=== PATIENT | male | born 1950 | race Caucasian/White ===

== ENCOUNTER → 2020-07-31 12:35 | Outpatient (CLI) | payer MEDICARE, OTHER, SELFPAY ==
[2020-07-23 13:56] VITALS: BMI 19.6
--- NOTE | 2020-07-31 12:41 | CT_ITS ---
STUDY: CT PELVIS WITH CONTRAST REASON FOR EXAM: Male, 69 years old. RT GROIN MASS/HYDROCELE VS HERNIA. Prior rt inguinal hernia repair with mesh 2003 RADIATION DOSAGE (If Supplied By Facility): CTDIvol = ( 12.77 ) mGy, DLP = ( 207.91 ) mGycm TECHNIQUE: Transaxial imaging of the pelvis was performed without oral contrast. IV 100mL Isovue-370 was administered intravenously. Individualized dose optimization techniques were used for this CT. COMPARISON: None. FINDINGS: Normal urinary bladder. There is evidence of a large right-sided hydrocele. Prostatic enlargement. Central prostatic calcification. Normal visualized small intestine. Normal visualized colon. There is no pelvic fluid. There is no pelvic lymphadenopathy or mass lesion. Atherosclerotic calcification of the infrarenal abdominal aorta. There is evidence of a prior repair of bilateral inguinal hernias with a mesh. Grade 1 anterior listhesis of L5 on S1 with disc space narrowing and disc degeneration. CT/Pelvis WITH IV Contrast IMPRESSION: Large right hydrocele. Prior inguinal hernias repair with a mesh. Electronically Signed: Hood Valiente, at 14:20 EST , Service support ,
[2020-07-31 13:15] LABS: CREATININE FINGERSTICK 0.6 mg/dL (0.70-1.30); EGFR FINGERSTICK > 60.0000 mL/min (>60)
== END ==
PROVIDERS: PCP Family Medicine; Referring Provider Surgery; Visit Provider Surgery
DX: R19.00 Intra-abdominal and pelvic swelling, mass and lump, unspecified site (principal)
CPT/HCPCS: 72193; Q9967

== ENCOUNTER → 2021-03-23 11:32 | Outpatient (CLI) | payer MEDICARE, OTHER, SELFPAY ==
--- NOTE | 2021-03-23 12:11 | EKG12_ITS ---
Test Reason : PRE-OP Blood Pressure : / mmHG Vent. Rate : 057 BPM Atrial Rate : 057 BPM P-R Int : 160 ms QRS Dur : 102 ms QT Int : 442 ms P-R-T Axes : 050 081 039 degrees QTc Int : 430 ms Sinus bradycardia with Premature atrial complexes Nonspecific T wave abnormality Poor R- wave progression Abnormal ECG Confirmed by DOLLY JACKSON, JOSE ([id number]), book editor GERRI MARINELLI ([id number]) on 03/24/2021 2:02:57 PM Referred By: Isauro Buchanan Confirmed By:JOSE ALBERTO MD
[2021-03-23 13:06] LABS: Hematocrit 42.3 % (40-54); Hemoglobin 14.4 g/dL (13.0-16.5); Mean Platelet Vol. 10.3 fl (6.2-12.0); Platelet Count 232 K/mm3 (150-450); RBC Distribution Width CV 12.7 % (11.6-14.6); RBC Distribution Width SD 45.5 fl (35.1-43.9); Red Blood Count 4.36 M/mm3 (4.6-6.2); White Blood Count 7.3 K/mm3 (4.4-11.0)
[2021-03-23 13:25] LABS: Anion Gap 3 (5-15); BUN 19 mg/dL (7-18); BUN/Creat Ratio 18.4 RATIO (10-20); Calcium,Total 9.1 mg/dL (8.5-10.1); Chloride 104 mmol/L (98-107); Creatinine, Serum 1.03 mg/dL (0.70-1.30); EST Glomerular Filtration Rate 76 mL/min (>60); Est Glom Filt Rate - Afr Amer 92 mL/min (>60); Glucose 91 mg/dL (74-106); Sodium Level 136 mmol/L (136-145)
== END ==
PROVIDERS: Referring Provider Urology; Visit Provider Urology
DX: Z01.812 Encounter for preprocedural laboratory examination (principal)
CPT/HCPCS: 36415; 80048; 85027; 93005

== ENCOUNTER 2023-03-17 11:01 | Inpatient (IN) | payer MEDICARE, OTHER, SELFPAY ==
[2023-03-17 11:03] VITALS: BP 148/89; PULSE 84; RESP 16; TEMP 36.3; O2SAT 99; BMI 17.4
--- NOTE | 2023-03-17 11:15 | EKG12_ITS ---
Test Reason : Blood Pressure : / mmHG Vent. Rate : 063 BPM Atrial Rate : 063 BPM P-R Int : 178 ms QRS Dur : 102 ms QT Int : 458 ms P-R-T Axes : 050 -06 137 degrees QTc Int : 468 ms Normal sinus rhythm Incomplete right bundle branch block ST & T wave abnormality, consider lateral ischemia Prolonged QT Abnormal ECG Confirmed by SANTI JACKSON, FELICITY ([id number]), marketing editor MALOU MARINO ([id number]) on 03/20/2023 12:44:46 PM Referred By: Confirmed By:FELICITY HANCOCK MD
--- NOTE | 2023-03-17 11:18 | EDS_ITS ---
HPI <TAJ Ochoa - Last Filed: 03/17/23 13:25> History of Present Illness Chief Complaint: Abn Labs Narrative Narrative: Patient is a 72-year-old male who sees Dr. Awan as his PCP presents to the emergency department for abnormal lab values. Patient is currently not any medications, he gets his blood work 1 week before his physical with his PCP. They called today with the results and told him to come to the emergency department. Patient has a BUN of 47, creatinine 2.47, potassium 5.3, they are concerned for some renal insufficiency, renal failure. Patient states over the last several months since the beginning of 2022, the patient is felt more weak, has lost 10 pounds, feels more short of breath on exertion. He denies any chest pain. Denies any fever or chills. Patient does not smoke, does not use alcohol. PFSH <TAJ Ochoa - Last Filed: 03/17/23 13:25> [facility] Medical History (Updated 03/17/23 @ 12:38 by TAJ Ochoa) BPH (benign prostatic hyperplasia) Guttate psoriasis Allergy/AdvReac Type Severity Reaction Status Date / Time No Known Allergies Allergy Verified 03/17/23 11:18 Family History Father Heart disease Pacemaker Cancer hodgkins Sister Cancer non hodgkins Surgical History History of bilateral inguinal hernia repair (~2003) History of colonoscopy (~06/05/18) Social History Smoking Status: Never smoker ROS <TAJ Ochoa - Last Filed: 03/17/23 13:25> ROS ED ROS Narrative Constitutional: Negative for fever, chills, positive for weight loss, weakness Eyes: Negative for vision loss, vision change, double vision ENT: Negative for any sore throat, ear pain, congestion Cardiovascular: Negative for any chest pain, tightness, palpitations Respiratory: Negative for any cough, sputum production, hemoptysis, dyspnea.positive for dyspnea on exertion, orthopnea Gastrointestinal: Negative for any abdominal pain, nausea, vomiting, diarrhea, constipation, blood in stool, blood in vomit : Negative for any urinary frequency, dysuria, retention, blood in urine Muscle skeletal: Negative for any muscle joint pain, stiffness, myalgias, arthralgias, neck pain, back pain Neurological: Negative for any headache, syncope, numbness or tingling, dizziness Skin: Negative for any rashes, lumps, itching, abrasions, lacerations Psychiatric: Negative for any depression, anxiety, stress, suicidal ideation, homicidal ideation Hematologic: Negative for any easy bruising, excessive bruising, easy bleeding Allergies: Negative for any eczema, hives, rash EXAM <TAJ Ochoa - Last Filed: 03/17/23 13:25> Physical Exam Narrative Exam Narrative: Vital signs reviewed. Patient is alert and orient x4. Patient is in no obvious distress. HEET: Head normocephalic atraumatic, TMs clear bilaterally. Posterior pharynx is clear, moist mucous membranes. Nares clear bilaterally. Neck: Supple with no lymphadenopathy or tenderness. No signs of meningismus, negative jolt sign. Cardiac: Regular rate and rhythm positive murmur, no gallops or rubs, equal peripheral pulses bilaterally. Respiratory: Lungs clear to auscultation bilaterally. No chest tenderness. Abdomen: Soft, nontender, nondistended. No abdominal bruit or pulsatile masses. No hepatosplenomegaly Extremities: No peripheral edema, no signs of gross trauma or deformity. Active full range of motion of all extremities. Neuro: Cranial nerves II through XII intact, no focal neurological deficits. Skin: Clean dry and intact with no rash, purpura, petechiae, vesicles or pustules. Backs/flank: No CVA tenderness, no midline spinal tenderness, no deformity. Psych: Normal mood and affect. No SI, HI or acute psychosis. Const Vital Signs: 03/17/23 11:03 03/17/23 11:09 03/17/23 12:47 Temperature 97.4 F L Temperature Source Temporal Pulse Rate 84 52 L Respiratory Rate 16 10 L Respiratory Effort Normal Non-Labored Respiratory Pattern Normal Blood Pressure 148/89 H 140/79 H Blood Pressure Mean 108 99 Pulse Ox 99 99 Oxygen Delivery Method Room Air Room Air Positive well nourished and well developed General Appearance ED: well developed <Dr. Julio Estrada MD - Last Filed: 03/17/23 11:28> Physical Exam Const Vital Signs: 03/17/23 11:03 03/17/23 11:09 03/17/23 12:47 Temperature 97.4 F L Temperature Source Temporal Pulse Rate 84 52 L Respiratory Rate 16 10 L Respiratory Effort Normal Non-Labored Respiratory Pattern Normal Blood Pressure 148/89 H 140/79 H Blood Pressure Mean 108 99 Pulse Ox 99 99 Oxygen Delivery Method Room Air Room Air [facility] <TAJ Ochoa - Last Filed: 03/17/23 13:25> [facility] Lab Data Labs: Laboratory Results - last 24 hr 03/17/23 11:30 WBC 6.8 RBC 3.82 L Hgb 12.5 L Hct 37.7 L MCV 98.7 H MCH 32.7 H MCHC 33.2 RDW Std Deviation 50.1 H RDW Coeff of Zachary 13.8 Plt Count 271 MPV 9.7 Immature Gran % (Auto) 0.300 Neut % (Auto) 56.1 Lymph % (Auto) 31.5 [place] % (Auto) 9.9 Eos % (Auto) 1.3 Baso % (Auto) 0.9 Absolute Neuts (auto) 3.8 Absolute Lymphs (auto) 2.13 Nucleated RBC % 0 Sodium 139 Potassium 4.2 Chloride 106 Carbon Dioxide 27.0 Anion Gap 6 BUN 44 H Creatinine 2.44 H Estim Creat Clear Calc 20.80 Est GFR (MDRD) Af Amer 34 L Est GFR (MDRD) Non-Af 28 L BUN/Creatinine Ratio 18.0 Glucose 129 H Calcium 8.9 Total Bilirubin 0.40 AST 33 ALT 28 Alkaline Phosphatase 93 Troponin I High Sens 153 H* Total Protein 6.4 Albumin 2.7 L Globulin 3.7 Albumin/Globulin Ratio 0.7 L TSH 3.58 Radiography Diagnostic Testing: Clinical Impression(s) from Imaging Studies Chest X-Ray 03/17/23 11:35 IMPRESSION: No radiographic evidence of acute cardiopulmonary disease. Electronically Signed: Navarro Donnelly MD at 12:19 EDT , EKG Normal sinus rhythm: Attestation: I personally reviewed and interpreted this EKG as follows: Comments: Normal sinus rhythm, rate of 63 bpm, UT interval is 78 ms, QRS duration 102 ms, no acute ST elevation, no acute infarct noted. Treatment and Re-Evaluation :: Patient is alert and orient x4. Patient presents to the emergency department for abnormal kidney function and generalized fatigue over the last several months. Patient will receive basic laboratory values such as a CBC, chemistry, patient will receive two-view chest x-ray EKG and troponin. He will be given 1 L of normal saline. Patient is being ruled out for type 2 diabetes, acute kidney injury, any sort of infection. Patient's laboratory values showed a CBC with slight anemia with a hemoglobin of 12.5, 2 years ago, the patient's hemoglobin is 14.4, 2 years ago, the patient's creatinine is 1.03, today is 2.44, glucose 129 with a troponin 153. Patient at this time is having no active chest pain, patient's EKG shows no active PA, ACS. After talking with the patient, the patient does need to be admitted to the hospital. Patient needs to be worked up for the acute kidney injury, as well as the elevated troponin. Patient is agreeable with the plan. Vital signs remained stable. Patient be admitted to hospitalist. <Dr. Julio Estrada MD - Last Filed: 03/17/23 11:28> [facility] MDM Narrative Medical decision making narrative: I have personally performed a face to face assessment of the patient and have reviewed the ANDREI Note. I performed a substantive portion of the visit including all aspects of the following. My st findings include: History is 72-year-old male healthy currently on no medications. I am evaluating him with our nurse practitioner. Patient's had exhaustion and fatigue for the last 6 months. Had screening labs to see his primary care physician that were abnormal and was sent to the emergency department. Exam is [H EENT exam unremarkable. Neck nontender no JVD. Lungs clear to auscultation. Heart regular rhythm 3/6 systolic ejection murmur. Abdomen soft, nontender, nondistended normal bowel sounds no peritoneal signs. Moving all 4 extremities. Trace edema in his legs. Neurologically is awake alert with no focal motor deficits. Benign exam.] Medical Decision Making [72-year-old with worsening kidney function. Screening labs will be obtained. Bladder scan.] Other additions or changes: [None] Lab Data Labs: Laboratory Results - last 24 hr 03/17/23 11:30 WBC 6.8 RBC 3.82 L Hgb 12.5 L Hct 37.7 L MCV 98.7 H MCH 32.7 H MCHC 33.2 RDW Std Deviation 50.1 H RDW Coeff of Zachary 13.8 Plt Count 271 MPV 9.7 Immature Gran % (Auto) 0.300 Neut % (Auto) 56.1 Lymph % (Auto) 31.5 [place] % (Auto) 9.9 Eos % (Auto) 1.3 Baso % (Auto) 0.9 Absolute Neuts (auto) 3.8 Absolute Lymphs (auto) 2.13 Nucleated RBC % 0 Sodium 139 Potassium 4.2 Chloride 106 Carbon Dioxide 27.0 Anion Gap 6 BUN 44 H Creatinine 2.44 H Estim Creat Clear Calc 20.80 Est GFR (MDRD) Af Amer 34 L Est GFR (MDRD) Non-Af 28 L BUN/Creatinine Ratio 18.0 Glucose 129 H Calcium 8.9 Total Bilirubin 0.40 AST 33 ALT 28 Alkaline Phosphatase 93 Troponin I High Sens 153 H* Total Protein 6.4 Albumin 2.7 L Globulin 3.7 Albumin/Globulin Ratio 0.7 L TSH 3.58 Radiography Diagnostic Testing: Clinical Impression(s) from Imaging Studies Chest X-Ray 03/17/23 11:35 IMPRESSION: No radiographic evidence of acute cardiopulmonary disease. Electronically Signed: Navarro Donnelly MD at 12:19 EDT , Discharge Plan Dx/Rx/DC Orders Clinical Impression: Acute kidney injury, Exertional dyspnea, Anemia, Elevated troponin Disposition Disposition: Acute Care [facility]
[2023-03-17] MEDS: 0.9% Normal Saline 1,000 ML 1000 ML IV (11:26)
--- NOTE | 2023-03-17 11:35 | RAD_ITS ---
INDICATION: cough EXAMINATION/TECHNIQUE: X-RAY - XR Chest 2 Views COMPARISON: No prior examinations are available for comparison. FINDINGS: LINES/DEVICES: None. LUNGS: The lungs are somewhat hyperinflated. No focal infiltrate is seen. No evidence of pleural effusions. MEDIASTINUM AND CARDIOVASCULAR STRUCTURES: Cardiac silhouette not enlarged. Central airways and mediastinal contour are unremarkable. BONES AND SOFT TISSUES: No demonstrated acute osseous changes. RAD/Chest PA and Lateral IMPRESSION: No radiographic evidence of acute cardiopulmonary disease. Electronically Signed: Navarro Donnelly MD at 12:19 EDT ,
[2023-03-17 11:42] LABS: Absolute Lymphocyte Count 2.13 X10^3/uL (0.83-4.51); Absolute Neutrophil Count 3.8 X10^3/uL (2.0-7.7); Basophil# 0.06 X10^3/uL; Basophil% 0.9 % (0-1); Eosinophil# 0.09 X10^3/uL; Eosinophils% 1.3 % (0-5); Hematocrit 37.7 % (40-54); Hemoglobin 12.5 g/dL (13.0-16.5); Lymphocyte # 2.13 X10^3/ul (0.83-4.51); Lymphocyte % 31.5 % (19-41); Mean Corp Hgb Conc 33.2 g/dL (32-36); Mean Corpuscular Hgb 32.7 pg (27.0-32.0); Mean Corpuscular Volume 98.7 fL (80-94); Mean Platelet Vol. 9.7 fl (6.2-12.0); Monocyte# 0.67 X10^3/uL; Monocyte% 9.9 % (0-10); NRBC Flagged by Analyzer 0 % (0-5); Neutrophil % 56.1 % (47-70); Platelet Count 271 K/mm3 (150-450); RBC Distribution Width CV 13.8 % (11.6-14.6); RBC Distribution Width SD 50.1 fl (35.1-43.9); Red Blood Count 3.82 M/mm3 (4.6-6.2); White Blood Count 6.8 K/mm3 (4.4-11.0)
[2023-03-17 12:16] LABS: ALB/GLOB Ratio 0.7 RATIO (0.9-2.4); AST(SGOT) 33 U/L (15-37); Alanine Aminotransfer ALT/SGPT 28 U/L (16-61); Albumin, Serum 2.7 g/dL (3.2-5.0); Alkaline Phosphatase 93 U/L (45-117); Anion Gap 6 (5-15); BUN 44 mg/dL (7-18); Calcium,Total 8.9 mg/dL (8.5-10.1); Chloride 106 mmol/L (98-107); Creatinine, Serum 2.44 mg/dL (0.70-1.30); EST Glomerular Filtration Rate 28 mL/min (>60); Est Glom Filt Rate - Afr Amer 34 mL/min (>60); Globulin 3.7 g/dL (2.2-4.2); Glucose 129 mg/dL (74-106); Potassium 4.2 mmol/L (3.5-5.1); Protein, Total 6.4 g/dL (6.4-8.2); Sodium Level 139 mmol/L (136-145); Thyroid Stim Hormone (TSH) 3.58 uIU/mL (0.358-3.74); Troponin-I HS 153 pg/mL (3.0-78.0)
[2023-03-17 12:47] VITALS: BP 140/79; PULSE 52; RESP 10; O2SAT 99
--- NOTE | 2023-03-17 13:23 | US_ITS ---
INDICATION: elevated creatinine -- please do on 03/17/23 EXAMINATION: US Kidney(s) complete (eg, kidneys and bladder) TECHNIQUE: Carpio scale and color doppler images were obtained of the kidneys. COMPARISON: None. FINDINGS: RIGHT KIDNEY: Measures 9.7 cm in length.. There is no hydronephrosis. Increased echogenicity. No shadowing calculus, focal lesion or perinephric collection is demonstrated. LEFT KIDNEY: Measures 9.9 cm in length.. There is no hydronephrosis. Increased echogenicity. No shadowing calculus, focal lesion or perinephric collection is demonstrated. URINARY BLADDER: No acute abnormality. OTHER: Small amount of free fluid posterior to the bladder. US/Kidney and Bladder IMPRESSION: No hydronephrosis. Increased echogenicity of the bilateral kidneys compatible with medical renal disease. Small amount of free fluid posterior to the bladder of unknown origin. Electronically Signed: Kit Olmos MD at 20:05 EDT ,
--- NOTE | 2023-03-17 13:23 | ECHOD_ITS ---
Version 2 Reason For Study: DYSPNEA Procedure This was a 2D Doppler, Color Flow transthoracic echocardiogram. The study was technically difficult. Contrast injection was performed. Exam performed portable in patient room. Left Ventricle Normal LV size. Moderate concentric left ventricular hypertrophy. Left ventricular systolic function is normal. The estimated ejection fraction is 65 %. Stage 1 diastolic dysfunction. Right Ventricle Normal RV size. Normal systolic function. Tricuspid Valve Normal tricuspid valve. Mild (1+) tricuspid valve insufficiency. Pulmonary artery systolic pressure is 28 mmHg. Pulmonic Valve Normal pulmonic valve. Great Vessels Normal aortic root. The pulmonary artery is normal size. Normal inferior vena cava. Pericardium/Pleural No pericardial effusion. Medication Diluted definity 2ml given slow IV push to enhance endocardial definition. MMode/2D Measurements & Calculations LVIDd: 3.9 cm IVSd: 1.5 cm Ao root diam: 3.3 cm LVIDs: 2.5 cm LVPWd: 1.5 cm RVDd: 3.2 cm FS: 35.9 % LAV(MOD-bp): 37.7 ml SV(MOD-sp4): 49.0 ml LVAd ap4: 26.6 cm2 LAV(MOD-bp) Indexed: 23.3 ml/m2 LVLd ap4: 7.6 cm LAV(MOD-sp2): 49.9 ml EDV(MOD-sp4): 77.6 ml LAV(MOD-sp4): 27.1 ml EDV(sp4-el): 79.1 ml LVAs ap4: 14.5 cm2 LVLs ap4: 6.3 cm ESV(MOD-sp4): 28.6 ml ESV(sp4-el): 28.9 ml EF(MOD-sp4): 63.1 % EF(sp4-el): 63.5 % SV(sp4-el): 50.2 ml LA dimension(2D): 3.3 cm LA A4 area: 12.2 cm2 TAPSE: 1.1 cm RA A4 area: 17.0 cm2 Time Measurements MV dec time: 0.43 sec Doppler Measurements & Calculations MV E max ted: 41.3 cm/sec Lat Peak E' Ted: 6.6 cm/sec Med Peak E' Ted: 7.2 cm/sec MV A max ted: 65.2 cm/sec E/E' lat: 6.2 E/E' med: 5.8 MV E/A: 0.63 MV V2 max: 97.3 cm/sec Ao V2 max: 138.0 cm/sec MV max P.8 mmHg MV dec slope: 100.7 cm/sec2 Ao max P.6 mmHg MV V2 mean: 40.4 cm/sec Ao V2 mean: 89.9 cm/sec MV mean P.88 mmHg Ao mean P.9 mmHg MV V2 VTI: 25.2 cm Ao V2 VTI: 25.9 cm AV (velocity ratio): 1.00 LV V1 max: 136.7 cm/sec PA V2 max: 163.7 cm/sec PI dec slope: 89.8 cm/sec2 LV V1 max P.5 mmHg PA V2 mean: 92.9 cm/sec LV V1 mean P.7 mmHg LV V1 mean: 86.9 cm/sec LV V1 VTI: 25.8 cm TR max ted: 244.0 cm/sec TR max P.8 mmHg ECHO/Echo Complete W/ Contrast Interpretation Summary Normal LV size. Moderate concentric left ventricular hypertrophy. Left ventricular systolic function is normal. The estimated ejection fraction is 65 %. Stage 1 diastolic dysfunction. Pulmonary artery systolic pressure is 28 mmHg. Contrast injection was performed. Ordering Physician: Jonathan Fernando Referring Physician: JONATHAN APONTE Performed By: Sybil Siu RCS
--- NOTE | 2023-03-17 13:26 | NURSING ---
108 OBS TERELETSKY ELEVATED TROP, SINDI, DYSPNEA ON EXERTION
[2023-03-17 14:01] VITALS: BP 126/78; PULSE 54; RESP 12; TEMP 36.6
[2023-03-17 14:13] VITALS: BP 142/79; PULSE 61; RESP 18; TEMP 36.7; O2SAT 100
[2023-03-17 14:19] VITALS: BMI 17.5
[2023-03-17] MEDS: 0.9% Normal Saline 1,000 ML 150 ML IV ×2 (16:04→23:38)
[2023-03-17 16:09] LABS: Bacteria 0 SEEN /hpf (None Seen); Mucous, Urine 0 SEEN /hpf (<or=2+); Red Blood Cells-Urine 0 SEEN /hpf (0-5); Squamous Epithelial Cells - UA 0 SEEN /hpf (0-5); White Blood Cells 0 SEEN /hpf (0-5)
[2023-03-17 16:22] LABS: Color, Urine Yellow (Yellow); Glucose, Dipstick Normal (Normal); Ketone-Dipstick Negative (Negative); Leukocyte Esterase-Dipstick Negative /ul (Negative); Nitrite-Dipstick Negative (Negative); Occult Blood-Urine 25 /ul (Negative); Protein-Dipstick 100 mg/dl (Negative); Urine Bilirubin Dipstick Negative (Negative); Urine Clarity Clear (Clear); Urine Urobilinogen Normal (Normal); Urine pH 6.5 (5.0 - 8.0)
[2023-03-17 17:28] LABS: Troponin-I HS 139 pg/mL (3.0-78.0)
--- NOTE | 2023-03-17 17:40 | PCM.HP.STD ---
HPI - General General Date of Admission: 03/17/23 Date of Service: 03/17/23 Chief Complaint: Abnormal outpatient labs HPI Narrative EDGAR HENDERSON, is a 72 M who presents to the emergency room at [facility] after being sent in at the request of his family physician due to abnormal labs which were obtained this week. Patient's creatinine was elevated. Work-up in the emergency room included a CBC which was abnormal for hemoglobin of 12.5, chemistry profile was abnormal for BUN of 44 and a creatinine of 2.44. Patient's troponin is elevated at 153, EKG showed a normal sinus rhythm with nonspecific ST-T wave changes in the lateral precordial leads. Patient's UA was unremarkable. Patient will be admitted to PCU, IV fluids will be administered, patient will have an echocardiogram performed and an ultrasound on his kidneys and bladder. Labs will be monitored, cardiac enzymes will be cycled. PFSH Medical History BPH (benign prostatic hyperplasia) Guttate psoriasis Kidney disease Non-smoker Allergy/AdvReac Type Severity Reaction Status Date / Time No Known Allergies Allergy Verified 03/17/23 11:18 Family History Father Heart disease Pacemaker Cancer hodgkins Sister Cancer non hodgkins Surgical History History of bilateral inguinal hernia repair (~2003) History of colonoscopy (~06/05/18) Social History Smoking Status: Never smoker ROS Constitutional Constitutional: Reports fatigue and weakness; Denies anorexia, change in weight, chills, fever(s) or night sweats Eyes Eyes: Denies blurry vision, change in vision, discharge from eye(s) or eye pain Cardiovascular Cardiovascular: Denies chest pain, claudication, dyspnea on exertion, edema, lightheadedness or palpitations Respiratory/Chest Respiratory/Chest: Denies cough, excessive phlegm production, hemoptysis, productive cough, shortness of breath at rest or shortness of breath with exertion Gastrointestinal Gastrointestinal: Denies abdominal pain, constipation, diarrhea, hematemesis, hematochezia, melena, nausea or vomiting Genitourinary Genitourinary: Denies dysuria, hematuria, urinary frequency, urinary hesitancy, urinary incontinence or urinary urgency Musculoskeletal Musculoskeletal: Denies back pain, joint pain, joint stiffness, joint swelling, myalgias or neck pain Neurologic Neurologic: Denies abnormal gait, abnormal speech, confusion, disequilibrium, dizziness, focal weakness, headache(s), loss of vision, numbness, other visual disturbances, paresthesias, syncope or tingling Psychiatric Psychiatric: Denies anxiety, cognitive impairment, depression, irritability, mood swings or suicidal ideation Endocrine Endocrinology: Denies change in body appearance, cold intolerance, excessive sweating, heat intolerance, polydipsia or polyuria Hematologic/Lymphatic Hematologic/Lymphatic: Denies none, anemia, easy bleeding, easy bruising or lymphadenopathy Allergic/Immunologic Allergic/Immunologic: Denies rhinitis, urticaria, eczemia or asthma Vital Signs Vital Signs Vital Signs: 03/17/23 11:03 03/17/23 11:09 03/17/23 12:47 Temperature 97.4 F L Temperature Source Temporal Pulse Rate 84 52 L Respiratory Rate 16 10 L Respiratory Effort Normal Non-Labored Respiratory Depth Respiratory Pattern Normal Blood Pressure 148/89 H 140/79 H Blood Pressure Mean 108 99 Blood Pressure Source Blood Pressure Position Blood Pressure Location Pulse Ox 99 99 Oxygen Delivery Method Room Air Room Air 03/17/23 14:01 03/17/23 14:13 03/17/23 15:10 Temperature 98 F 98.0 F Temperature Source Temporal Oral Pulse Rate 54 L 61 Respiratory Rate 12 18 Respiratory Effort Normal Non-Labored Respiratory Depth Normal Respiratory Pattern Normal Blood Pressure 126/78 H 142/79 H Blood Pressure Mean 94 100 Blood Pressure Source Monitor Blood Pressure Position Semi-Fowlers Blood Pressure Location Right Arm Pulse Ox 100 Oxygen Delivery Method Room Air Room Air Weight Weight: 52.4 kg Body Mass Index (BMI) 17.5 Physical Exam Const alert, oriented x3, no apparent distress and healthy appearing General Appearance: cooperative, well kempt and well developed Orientation / Consciousness: awake, oriented to person, oriented to place and oriented to time HEENT normocephalic Mouth: moist mucous membranes abnormal Eyes PERRL, EOMs intact bilaterally and conjunctivae normal Neck supple, no JVD, thyroid normal and no carotid bruits General: trachea midline Resp normal respiratory effort, no retractions, no use of accessory muscles and clear to auscultation bilaterally Auscultation: Negative for rales, rhonchi or wheezes Cardio regular rate, regular rhythm, S1 normal heart sound, S2 normal heart sound, no murmurs, no rub and no gallops GI normal to inspection, nondistended, normoactive bowel sounds, soft to palpation, non-tender and non-distended Extremity no clubbing, cyanosis or edema Skin no rashes or lesions noted General Skin Exam: no breakdown Neuro oriented x3, CN's II-XII intact bilaterally, moves all extremities, no focal motor deficits and no sensory deficits noted Sensorium / Orientation: awake and alert Speech: speech normal Psych affect normal Results Lab / Micro Data 03/17/23 11:30 03/17/23 11:30 Labs: Laboratory Results - last 24 hr 03/17/23 11:30: WBC 6.8, RBC 3.82 L, Hgb 12.5 L, Hct 37.7 L, MCV 98.7 H, MCH 32.7 H, MCHC 33.2, RDW Std Deviation 50.1 H, RDW Coeff of Zachary 13.8, Plt Count 271, MPV 9.7, Immature Gran % (Auto) 0.300, Neut % (Auto) 56.1, Lymph % (Auto) 31.5, [place] % (Auto) 9.9, Eos % (Auto) 1.3, Baso % (Auto) 0.9, Absolute Neuts (auto) 3.8, Absolute Lymphs (auto) 2.13, Nucleated RBC % 0, Sodium 139, Potassium 4.2, Chloride 106, Carbon Dioxide 27.0, Anion Gap 6, BUN 44 H, Creatinine 2.44 H, Estim Creat Clear Calc 20.80, Est GFR (MDRD) Af Amer 34 L, Est GFR (MDRD) Non-Af 28 L, BUN/Creatinine Ratio 18.0, Glucose 129 H, Calcium 8.9, Total Bilirubin 0.40, AST 33, ALT 28, Alkaline Phosphatase 93, Troponin I High Sens 153 H*, Total Protein 6.4, Albumin 2.7 L, Globulin 3.7, Albumin/Globulin Ratio 0.7 L, TSH 3.58 03/17/23 16:07: Troponin I High Sens 139 H* 03/17/23 : Urine Color Yellow, Urine Clarity Clear, Urine pH 6.5, Ur Specific [place] 1.010, Urine Protein 100 H, Urine Glucose (UA) Normal, Urine Ketones Negative, Urine Occult Blood 25 H, Urine Nitrite Negative, Urine Bilirubin Negative, Urine Urobilinogen Normal, Ur Leukocyte Esterase Negative, Urine RBC 0 SEEN, Urine WBC 0 SEEN, Ur Squamous Epith Cells 0 SEEN, Urine Bacteria 0 SEEN, Urine Mucus 0 SEEN Radiology Impression Chest X-Ray 03/17/23 11:35 IMPRESSION: No radiographic evidence of acute cardiopulmonary disease. Electronically Signed: Navarro Donnelly MD at 12:19 EDT , Echocardiogram 03/17/23 13:23 Interpretation Summary Normal LV size. Moderate concentric left ventricular hypertrophy. Left ventricular systolic function is normal. The estimated ejection fraction is 65 %. Stage 1 diastolic dysfunction. Pulmonary artery systolic pressure is 28 mmHg. Contrast injection was performed. Ordering Physician: Jonathan Fernando Referring Physician: JONATHAN APONTE Performed By: Sybil Siu RCS Assessment & Plan Assessment/Plan (1) Creatinine elevation: PLAN: Plan 1. Creatinine elevation-etiology unclear, patient will be admitted to PCU and given IV fluids, labs will be monitored, patient will have an ultrasound of his kidneys and bladder. On 01/20/2022, patient's creatinine was 1.18 #2 elevated troponin-etiology unclear, patient will have an echocardiogram performed Total clinical time spent by myself addressing the patient's medical issues, reviewing all of his data, and collaborating with patient's care team: 55 minutes Charges/Coding Visit Charges Inpatient E&M: 97294 Init Hosp L2
[2023-03-17 18:40] LABS: Troponin-I HS 153 pg/mL (3.0-78.0)
[2023-03-17 21:59] VITALS: BP 121/76; PULSE 64; RESP 16; TEMP 36.7; O2SAT 100
[2023-03-17 22:00] VITALS: O2SAT 96
[2023-03-17] MEDS: Heparin Injection (Vial) 5,000 UNIT/ML VIAL 5000 UNIT SC (22:10)
[2023-03-18 03:31] VITALS: BP 113/73; PULSE 57; RESP 16; TEMP 36.6; O2SAT 98
[2023-03-18] MEDS: 0.9% Normal Saline 1,000 ML 150 ML IV (06:56)
[2023-03-18 07:37] LABS: Anion Gap 5 (5-15); BUN 43 mg/dL (7-18); BUN/Creat Ratio 19.5 RATIO (10-20); Calcium,Total 8.1 mg/dL (8.5-10.1); Chloride 110 mmol/L (98-107); Creatinine, Serum 2.21 mg/dL (0.70-1.30); EST Glomerular Filtration Rate 31 mL/min (>60); Est Glom Filt Rate - Afr Amer 38 mL/min (>60); Estimated Creatinine Clearance 23.05 ml/min; Glucose 100 mg/dL (74-106); Potassium 4.2 mmol/L (3.5-5.1); Sodium Level 141 mmol/L (136-145)
[2023-03-18 09:23] VITALS: BP 117/67; PULSE 60; RESP 14; TEMP 36.7; O2SAT 99
--- NOTE | 2023-03-18 09:56 | CASEMGMT ---
COLT GUZMAN Discharge Planning Assessment: Face to Face with patient for initial transition planning/care coordination assessment. COLT GUZMAN introduced self and role at [facility], pt alert, answering questions appropriately, pt voices understanding, and is agreeable to participating in assessment.? Care providers, pharmacy,?and demographics verified. ? 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 There is not an elevator available. Pt states he manages the stairs without difficulty when well but recently has had more difficulty. Pt states there are handrails available. Pt states he is independent with all ADLs and IADLs and states he has not been on any medications prior. Transportation: Pt drives. States he has one person he can ask to assist him if needed but does not like to ask. DME/HHC/SNF: pt denies ? Plan: Home Pt denies any concerns with returning home at discharge and denies any dc needs at this time. Julia Oden RN CM
--- NOTE | 2023-03-18 10:53 | PCM.DC ---
Discharge Instructions Diet Discharge Diet: No restrictions Activity Discharge Activity: Return to Normal Activity Weight Bearing Status: Full weight bearing Follow Up Care Test Results: Test results from this visit will be discussed in further detail at your follow-up appointment, if applicable. Discharge Plan Admission Admit Date/Time: 03/17/23 14:09 Primary Reason for Your Visit: kidney injury Attending Provider: Jonathan Fernando Primary Care Provider: Jose Miguel Awan Instructions Additional Instructions / Restrictions: Avoid taking Ibuprofen, Aleve, or aspirin due to your kidney dysfunction You will need follow up with a Slag Production Worker (kidney specialist) as an outpatient, Dr. Freeman's office should call you this week to arrange followup-call the office this Monday if they haven't contacted you by then Discharge Orders/Prescriptions Referrals / Follow Up: Jose Miguel Awan MD [Primary Care Provider] - See Referral Note (at next visit) Andrew Hills MD [Med Staff - Consulting] - See Referral Note (office should contact you for follow up) Disposition Disposition (needs filled in before D/C Order can be placed): Home, Self Care
--- NOTE | 2023-03-18 11:06 | DS.PCM_ITS ---
Providers Date of Admission: 03/17/23 Date of Discharge: 03/18/23 Primary Care Physician: Dr. Jose Miguel Awan MD Reason For Visit: SINDI, ELEVATED TROPONIN Diagnosis Discharge Diagnosis (1) Creatinine elevation: Status: Acute Code(s): R79.89 - Other specified abnormal findings of blood chemistry Plan 1. Creatinine elevation-etiology unclear, #2 elevated troponin-etiology unclear, non-STEMI was ruled out #3 proteinuria-etiology unclear Total clinical time spent by myself addressing the patient's medical issues, reviewing all of his data, and collaborating with patient's care team: 55 minutes Hospital Course Operations None Procedures 2-D Echocardiogram and - (Renal ultrasound) Summary of Care Provided Minutes Spent on Discharge: 30 Hospital Course: This 72-year-old white male was seen in the emergency room at [facility] after he came there for evaluation at the direction of his PCP due to an elevated creatinine the patient had as an outpatient several days prior. Patient had labs done for his routine yearly office visit and it was noted that his creatinine was elevated and he had a mild elevation of his potassium. Work- up in the emergency room showed the patient's creatinine to be elevated, his last known creatinine was approximately 13 months ago and his creatinine was 1.18, his creatinine in the emergency room was 2.44. Patient's creatinine earlier in the week which was drawn as an outpatient was 2.47 with a BUN of 47. Patient's potassium was slightly low at 5.3 as an outpatient, his potassium in the emergency room was unremarkable. Patient had troponin also drawn, this was elevated. Patient had an EKG which showed nonspecific ST-T wave changes in the lateral wall leads, patient had no complaints of any chest discomfort, he had complaints of generalized fatigue that had occurred over the last 1 to 2 months however. Patient was admitted to PCU, an echocardiogram was performed which showed no abnormalities. Cardiac enzymes were cycled, they were all elevated to the same extent which was detected in the emergency room, the etiology of this troponin elevation was unknown and not felt to be a non-STEMI. Patient was given IV fluids and labs were drawn the next day, his creatinine was marginally improved at 2.21. I had an informal discussion with nephrology by phone (Dr. Freeman) he agreed to see the patient in follow-up and would contact the patient next week for an appointment. He requested that a protein creatinine ratio be obtained on the urine. Nephrology did not feel the patient needed a CT scan of the kidneys, ultrasound the kidneys and bladder was performed which showed evidence of echogenicity in the kidneys questioning possible chronic kidney disease. There was no evidence of hydronephrosis. On 03/18/2023, patient was seen and examined: On examination he appeared in good health and spirits. Vital signs as documented. Skin warm and dry and without overt rashes. Neck without JVD, neck was supple, trachea midline, thyroid was normal. Lungs clear bilaterally, normal air movement was noted. Heart exam notable for regular rhythm, normal sounds and absence of murmurs, rubs or gallops. Abdomen unremarkable and without evidence of organomegaly, masses, or abdominal aortic enlargement. Bowel sounds are present, abdomen is not distended. Extremities nonedematous, no cyanosis was noted, no clubbing was noted. Neuro: Cranial nerves II through XII are grossly intact, no focal motor deficits were noted, sensation to light touch and pinprick intact, motor exam 5/5 throughout. Psych: Patient is alert and oriented x3, he does not appear anxious or depressed, he does not appear agitated. Patient appeared stable for discharge on 03/18/2023, his condition did not warrant continuing hospitalization at this time. Weight / BMI Weight Weight: 52.4 kg Body Mass Index (BMI) 17.5 ABG / Lab / Microbiology Data 03/17/23 11:30 03/18/23 05:35 Laboratory: Laboratory Results - last 24 hr 03/17/23 11:30: WBC 6.8, RBC 3.82 L, Hgb 12.5 L, Hct 37.7 L, MCV 98.7 H, MCH 32.7 H, MCHC 33.2, RDW Std Deviation 50.1 H, RDW Coeff of Zachary 13.8, Plt Count 271, MPV 9.7, Immature Gran % (Auto) 0.300, Neut % (Auto) 56.1, Lymph % (Auto) 31.5, [place] % (Auto) 9.9, Eos % (Auto) 1.3, Baso % (Auto) 0.9, Absolute Neuts (auto) 3.8, Absolute Lymphs (auto) 2.13, Nucleated RBC % 0, Sodium 139, Potassium 4.2, Chloride 106, Carbon Dioxide 27.0, Anion Gap 6, BUN 44 H, Creatinine 2.44 H, Estim Creat Clear Calc 20.80, Est GFR (MDRD) Af Amer 34 L, Est GFR (MDRD) Non-Af 28 L, BUN/Creatinine Ratio 18.0, Glucose 129 H, Calcium 8.9, Total Bilirubin 0.40, AST 33, ALT 28, Alkaline Phosphatase 93, Troponin I High Sens 153 H*, Total Protein 6.4, Albumin 2.7 L, Globulin 3.7, Albumin/Globulin Ratio 0.7 L, TSH 3.58 03/17/23 16:07: Troponin I High Sens 139 H* 03/17/23 17:36: Troponin I High Sens 153 H* 03/17/23 : Urine Color Yellow, Urine Clarity Clear, Urine pH 6.5, Ur Specific [place] 1.010, Urine Protein 100 H, Urine Glucose (UA) Normal, Urine Ketones Negative, Urine Occult Blood 25 H, Urine Nitrite Negative, Urine Bilirubin Negative, Urine Urobilinogen Normal, Ur Leukocyte Esterase Negative, Urine RBC 0 SEEN, Urine WBC 0 SEEN, Ur Squamous Epith Cells 0 SEEN, Urine Bacteria 0 SEEN, Urine Mucus 0 SEEN 03/18/23 05:35: Sodium 141, Potassium 4.2, Chloride 110 H, Carbon Dioxide 26.0, Anion Gap 5, BUN 43 H, Creatinine 2.21 H, Estim Creat Clear Calc 23.05, Est GFR (MDRD) Af Amer 38 L, Est GFR (MDRD) Non-Af 31 L, BUN/Creatinine Ratio 19.5, Glucose 100, Calcium 8.1 L Radiography Diagnostic Testing: Radiology Impression Chest X-Ray 03/17/23 11:35 IMPRESSION: No radiographic evidence of acute cardiopulmonary disease. Electronically Signed: Navarro Donnelly MD at 12:19 EDT , Echocardiogram 03/17/23 13:23 Interpretation Summary Normal LV size. Moderate concentric left ventricular hypertrophy. Left ventricular systolic function is normal. The estimated ejection fraction is 65 %. Stage 1 diastolic dysfunction. Pulmonary artery systolic pressure is 28 mmHg. Contrast injection was performed. Ordering Physician: Jonathan Fernando Referring Physician: JONATHAN APONTE Performed By: Sybil Siu RCS Renal Ultrasound 03/17/23 13:23 IMPRESSION: No hydronephrosis. Increased echogenicity of the bilateral kidneys compatible with medical renal disease. Small amount of free fluid posterior to the bladder of unknown origin. Electronically Signed: Kit Olmos MD at 20:05 EDT , D/C Instructions Discharge Diet: No restrictions Weight Bearing Status: Full weight bearing Meaningful Use Info Meaningful Use Diagnoses (Choose all that apply): None applicable Discharge Plan Admission Admit Date/Time: 03/17/23 14:09 Primary Reason for Your Visit: kidney injury Attending Provider: Jonathan Fernando Primary Care Provider: Jose Miguel Awan Instructions Additional Instructions / Restrictions: Avoid taking Ibuprofen, Aleve, or aspirin due to your kidney dysfunction You will need follow up with a Ticket Chopper Assembler (kidney specialist) as an outpatient, Dr. Freeman's office should call you this week to arrange followup-call the office this Monday if they haven't contacted you by then Discharge Orders/Prescriptions Referrals / Follow Up: Jose Miguel Awan MD [Primary Care Provider] - See Referral Note (at next visit) Andrew Hills MD [Med Staff - Consulting] - See Referral Note (office should contact you for follow up) Disposition Disposition (needs filled in before D/C Order can be placed): Home, Self Care Charges/Coding Visit Charges Inpatient E&M: 81044 Disch Hosp
[2023-03-18 11:11] LABS: Protein, Urine (Random) 109.3 mg/dL (<11.9); Protein:Creat Ratio 3363 mg/g CRE (0-200)
== END 2023-03-18 13:49 | disposition home or self-care (01) | DRG 948 ==
LOC: ED 12:38 → PCU 14:00
PROVIDERS: Nurse Practitioner; Admitting Provider Internal Medicine; Emergency Provider Emergency Medicine; PCP Family Medicine; Visit Provider Internal Medicine
DX: R79.89 Other specified abnormal findings of blood chemistry (principal); R80.9 Proteinuria, unspecified; R77.8 Other specified abnormalities of plasma proteins
CPT/HCPCS: 36415; 71046; 76770; 80048; 80053; 81001; 82570; 84156; 84443; 84484; 85025; 93005; 93306; 99284; J7030; Q9957; C8929

== ENCOUNTER → 2023-04-05 | Outpatient (CLI) | payer MEDICARE, OTHER, SELFPAY | END | disposition home or self-care (01) | LOC: LABSPEC 15:43 | PROVIDERS: PCP Family Medicine; Referring Provider Otolaryngology; Visit Provider Otolaryngology | DX: B37.9 Candidiasis, unspecified (principal) | CPT/HCPCS: 87070 ==

== ENCOUNTER → 2023-04-19 | Outpatient (CLI) | payer MEDICARE, OTHER, SELFPAY ==
--- NOTE | 2023-04-21 12:42 | STRESSREP_ITS ---
Stress Test Report Date: 04/19/2023 Procedure: Exercise tolerance test/imaging study Indications: Decreased stamina Consent: Per the patient Procedure: The patient exercised on a Adria protocol for 3 minutes and 17 seconds achieving a peak heart rate of 118 bpm (78% predicted maximal heart rate) with a peak blood pressure 148/70 mmHg and a peak MET capacity of 5 METs. The baseline ECG demonstrated sinus bradycardia with nonspecific ST-T changes. The peak exercise ECG demonstrated sinus tachycardia with around [address] depressions in the lateral leads. EKG during recovery revealed return of ST segments to baseline [There were no cardiac dysrhythmias pretest, during exercise, or recovery]. The functional capacity was considered decreased for age. There was [no complaint of chest discomfort during exercise or recovery]. The examination was discontinued secondary to leg fatigue. Impression: 1. Inability to reach 85% of maximal age-predicted heart rate decreases the sensitivity of this test exercise tolerance test 2. Stress test is positive for exercise-induced EKG changes of ischemia. However the specificity of this finding is decreased because of baseline ST-T changes 3. The test test is negative for exercise-induced chest pain 4. Functional capacity is decreased for age 5. Nuclear images pending Myocardial perfusion imaging study: Technique: The patient was injected with 11.1 mCi of technetium 99m Cardiolite and subsequently rest SPECT Cardiolite nuclear imaging was obtained in the horizontal long, vertical long, and short axis views. The patient exercised on a Adria protocol. Please see above for details. The patient was injected with 33.3 mCi of technetium 99m Cardiolite and subsequently stress SPECT Cardiolite nuclear imaging was obtained in the horizontal long, vertical long, and short axis views. A gated Cardiolite study at peak stress was obtained. Interpretation: Rest and stress SPECT Cardiolite nuclear imaging status post realignment, normalization, and attenuation correction, demonstrates mild decrease in the radioisotope uptake in the inferior wall prior to attenuation correction. After attenuation correction there is normal myocardial radioisotope uptake overall. These findings are suggestive of diaphragmatic attenuation artifact. The gated Cardiolite study demonstrates no significant regional wall motion abnormalities. The reported LVEF is 56%. Impression: 1. There is no definite evidence of ischemia. Please see the EKG portion of the test above as well. The sensitivity of this test is decreased because of inability to reach 85% of maximal age-predicted heart rate. 2. The gated Cardiolite study reports an LVEF of 56%. This note was generated with [employer] software. It may contain incorrect words, spelling, and punctuation that were not noted in checking the note before signing.
== END | disposition home or self-care (01) ==
LOC: CVS 06:32
PROVIDERS: PCP Family Medicine; Referring Provider Family Medicine; Visit Provider Family Medicine
DX: R06.02 Shortness of breath (principal); R53.83 Other fatigue; R77.8 Other specified abnormalities of plasma proteins; R94.31 Abnormal electrocardiogram [ECG] [EKG]
CPT/HCPCS: 78452; 93017; A9500; A4216

== ENCOUNTER 2023-12-15 12:32 | Emergency (ER) | payer MEDICARE, OTHER, SELFPAY ==
[2023-12-15] VITALS (9 sets, daily range): BP systolic 98–130; BP diastolic 66–74; PULSE 73–81; RESP 14–22; TEMP 36.3–36.7; O2SAT 97–100; BMI 16.3
--- NOTE | 2023-12-15 12:51 | EKG12_ITS ---
Test Reason : Blood Pressure : / mmHG Vent. Rate : 070 BPM Atrial Rate : 070 BPM P-R Int : 166 ms QRS Dur : 090 ms QT Int : 428 ms P-R-T Axes : 084 030 247 degrees QTc Int : 462 ms Normal sinus rhythm ST & T wave abnormality, consider inferolateral ischemia Prolonged QT Abnormal ECG Confirmed by Anthony Munguia ([id number]), book editor MALOU MARINO ([id number]) on 12/18/2023 11:11:17 AM Referred By: Confirmed By:Anthony Munguia
--- NOTE | 2023-12-15 12:54 | EX.ED.DYSGE1 ---
HPI <Dr. Jose Miguel Fernandez MD - Last Filed: 12/16/23 06:57> History of Present Illness Chief Complaint: Hypotension Informant: patient and EMS Narrative Narrative: 73-year-old male chronic fatigue on chemotherapy for some type of lymphoma according to him he does not know what type, chronic kidney disease still makes urine, had his first dialysis session today, he was at the dialysis center and they were getting ready to hook him up, they checked his blood pressure and it was 80/40 and they immediately sent him here to the ER. He states his blood pressure is usually in the low 100s. He states he did feel a little lightheaded when he was at the dialysis center but has had no presyncope or syncope lately. He denies any recent illness. No fevers or chills. States he has been drinking fluids. He has no other focal symptoms. States he follows with renal [facility] Dr. Pérez and hematology oncology Dr. Hugo. PFSH <Dr. Jose Miguel Fernandez MD - Last Filed: 12/16/23 06:57> PFS Medical History Acute kidney injury Anemia BPH (benign prostatic hyperplasia) Exertional dyspnea Guttate psoriasis Kidney disease Non-smoker Home Medications cephalexin 500 mg capsule 500 mg PO Q12 #14 CAPSULES 12/15/23 [Rx Last Taken Unknown] Allergy/AdvReac Type Severity Reaction Status Date / Time No Known Allergies Allergy Verified 12/15/23 12:33 Family History Father Heart disease Pacemaker Cancer hodgkins Sister Cancer non hodgkins Surgical History History of bilateral inguinal hernia repair (~2003) History of colonoscopy (~06/05/18) Social History Smoking Status: Never smoker ROS <Dr. Jose Miguel Fernandez MD - Last Filed: 12/16/23 06:57> ROS ED Constitutional Constitutional ED: Reports anorexia, malaise and weakness; Denies chills or fever(s) Eyes Eyes: Denies change in vision or diplopia ENT ENT ED: Denies rhinorrhea or sore throat Cardiovascular Cardiovascular: Denies chest pain or palpitations Respiratory/Chest Respiratory/Chest: Denies cough or dyspnea Gastrointestinal Gastrointestinal: Denies abdominal pain, diarrhea, nausea or vomiting Genitourinary Genitourinary ED: Denies dysuria or hematuria Musculoskeletal Musculoskeletal: Denies back pain or neck pain Integumentary Denies abscess or rash Neurologic Neurologic: Denies headache(s), paresthesias or weakness Psychiatric Psychiatric: Denies suicidal ideation or suicidal thoughts EXAM <Dr. Jose Miguel Fernandez MD - Last Filed: 12/16/23 06:57> Physical Exam Const Vital Signs: 12/15/23 12:33 12/15/23 12:33 12/15/23 12:44 Temperature 97.6 F L 97.6 F L Temperature Source Oral Temporal Pulse Rate 77 77 Respiratory Rate 14 14 Respiratory Effort Normal Non-Labored Respiratory Pattern Normal Blood Pressure 98/66 98/66 Blood Pressure Mean 76 76 Pulse Ox 99 99 Oxygen Delivery Method Room Air Room Air 12/15/23 13:44 12/15/23 12:51 12/15/23 14:32 Temperature 97.5 F L Temperature Source Oral Pulse Rate 73 79 Respiratory Rate 22 H 18 Respiratory Effort Respiratory Pattern Blood Pressure 110/67 119/66 Blood Pressure Mean 81 83 Pulse Ox 98 99 Oxygen Delivery Method Room Air Room Air Room Air 12/15/23 14:00 12/15/23 15:00 12/15/23 16:00 Temperature 97.9 F 98.1 F Temperature Source Oral Oral Pulse Rate 79 80 81 Respiratory Rate 18 18 16 Respiratory Effort Respiratory Pattern Blood Pressure 119/66 119/66 Blood Pressure Mean 83 83 Pulse Ox 99 98 99 Oxygen Delivery Method Room Air Room Air Room Air 12/15/23 18:00 12/15/23 19:01 Temperature 97.4 F L Temperature Source Pulse Rate 79 73 Respiratory Rate 14 16 Respiratory Effort Respiratory Pattern Blood Pressure 130/73 H 121/74 H Blood Pressure Mean 92 89 Pulse Ox 100 97 Oxygen Delivery Method Room Air Positive well nourished, well developed and cachectic Constitutional Narrative: Keenly alert able to converse no distress General Appearance ED: well developed, cachectic and NAD Nutritional Appearance: cachectic HEENT Reports moist mucous membranes normocephalic and atraumatic Eyes PERRL and EOMs intact bilaterally Neck full ROM and supple Chest Wall inspection of chest normal and palpation of chest normal Chest Narrative: Right upper chest catheter benign site Resp normal respiratory effort and clear to auscultation bilaterally Cardio regular rate, regular rhythm and no murmurs GI non-tender and non-distended Auscultation: normoactive bowel sounds Palpation: soft Back/Spine no CVA tenderness General Back: other FROM Extremity normal to inspection General Extremety ED: Negative for edema, pulses abnormal or tenderness General Extremity: Negative for edema or pulses abnormal Neuro oriented x3, CN's II-XII intact bilaterally and no sensory deficits noted Neuro Narrative: symmetric weakness throughout all 4 exts Sensorium / Orientation: awake and alert Motor Exam: general weakness Psych mental status grossly normal Skin no rashes or lesions noted and no wounds <Dr. Julio Estrada MD - Last Filed: 12/15/23 18:28> Physical Exam Const Vital Signs: 12/15/23 12:33 12/15/23 12:33 12/15/23 12:44 Temperature 97.6 F L 97.6 F L Temperature Source Oral Temporal Pulse Rate 77 77 Respiratory Rate 14 14 Respiratory Effort Normal Non-Labored Respiratory Pattern Normal Blood Pressure 98/66 98/66 Blood Pressure Mean 76 76 Pulse Ox 99 99 Oxygen Delivery Method Room Air Room Air 12/15/23 13:44 12/15/23 12:51 12/15/23 14:32 Temperature 97.5 F L Temperature Source Oral Pulse Rate 73 79 Respiratory Rate 22 H 18 Respiratory Effort Respiratory Pattern Blood Pressure 110/67 119/66 Blood Pressure Mean 81 83 Pulse Ox 98 99 Oxygen Delivery Method Room Air Room Air Room Air 12/15/23 14:00 12/15/23 15:00 12/15/23 16:00 Temperature 97.9 F 98.1 F Temperature Source Oral Oral Pulse Rate 79 80 81 Respiratory Rate 18 18 16 Respiratory Effort Respiratory Pattern Blood Pressure 119/66 119/66 Blood Pressure Mean 83 83 Pulse Ox 99 98 99 Oxygen Delivery Method Room Air Room Air Room Air 12/15/23 18:00 12/15/23 19:01 Temperature 97.4 F L Temperature Source Pulse Rate 79 73 Respiratory Rate 14 16 Respiratory Effort Respiratory Pattern Blood Pressure 130/73 H 121/74 H Blood Pressure Mean 92 89 Pulse Ox 100 97 Oxygen Delivery Method Room Air MDM <Dr. Jose Miguel Fernandez MD - Last Filed: 12/16/23 06:57> MDM MDM Narrative Medical decision making narrative: Ordered 500 cc IV fluid bolus since he does not appear to be fluid overloaded, prior to getting any of that his blood pressure returned 98/66, and after fluids he was 110/67. His workup shows an elevated troponin, nonspecifically, and his priors are always abnormal as well although this 1 is a little higher. This is all likely due to his renal function, he is not having any symptoms of acute coronary syndrome. His EKG shows T wave inversions laterally, and new compared to his last EKG of February last year, he has some inferior T wave inversions without any ST segment depressions or elevations. This may be due to his renal failure and reasons other than an acute WI. He feels at baseline. He is not lightheaded. His renal function is noted, he is borderline uremic, just missing the anion gap elevation. He does need dialysis, but his electrolytes are stable at this time and he does not need emergently for hyperkalemia. Furthermore he has no sign of pneumonia on the chest x-ray 1 view on my interpretation. For these reasons I think it would be reasonable to observe him and do a 2-hour repeat troponin level. In addition, his urine shows signs of infection and clinically is very cloudy, yellow. He states no dysuria or lower abdominal discomfort with urinating, he states it always looks cloudy like that. However given the urinalysis less than 1 year ago showing none of these signs, had I am concerned about an infection although I do not necessarily think it was causing him to be hypotensive since his lactate is normal and he is clinically doing well, I am treating him empirically anyway with cephalexin and sending the urine for culture. Offered admission he declines and prefers to go home if safe. Repeat troponin returned slightly greater than the initial measurement, 281 up from 274, which is essentially the same with minimal change. Given this I am comfortable with him being discharged home. I did put a call out to whoever is on for his repair tech, to discuss his numbers given that it is Monday evening, and he may not be able to get dialyzed until Monday unless special arrangements are made. History & Record Review Additional record(s) reviewed:: Prior outpatient record Lab Data Attestation: I reviewed the patient's lab results. Labs: Laboratory Results - last 24 hr 12/15/23 12/15/23 12/15/23 13:15 14:49 14:50 WBC 9.2 RBC 3.05 L Hgb 10.0 L Hct 30.6 L MCV 100.3 H MCH 32.8 H MCHC 32.7 RDW Std Deviation 52.9 H RDW Coeff of Zachary 14.6 Plt Count 205 MPV 10.5 Immature Gran % (Auto) 0.500 Neut % (Auto) 93.4 H Lymph % (Auto) 0.7 L Gregory % (Auto) 4.7 Eos % (Auto) 0.3 Baso % (Auto) 0.4 Absolute Neuts (auto) 8.6 H Absolute Lymphs (auto) 0.06 L Nucleated RBC % 0 PT 13.8 INR 1.1 APTT 27.2 Sodium 137 Potassium 4.2 Chloride 105 Carbon Dioxide 21.0 Anion Gap 11 BUN 126 H* Creatinine 6.60 H Estim Creat Clear Calc 7.10 Est GFR (MDRD) Af Amer 11 L Est GFR (MDRD) Non-Af 9 L BUN/Creatinine Ratio 19.1 Glucose 116 H Lactic Acid 1.4 Calcium 8.5 Total Bilirubin 0.30 AST 30 ALT 59 Alkaline Phosphatase 138 H Troponin I High Sens 274 H* 281 H* Total Protein 5.5 L Albumin 2.3 L Globulin 3.2 Albumin/Globulin Ratio 0.7 L Urine Color Yellow Urine Clarity Cloudy Urine pH 6.0 Ur Specific Dresher 1.015 Urine Protein 500 H Urine Glucose (UA) Normal Urine Ketones Negative Urine Occult Blood 50 H Urine Nitrite Positive H Urine Bilirubin Negative Urine Urobilinogen Normal Ur Leukocyte Esterase 500 H Urine RBC 0-5 SEEN Urine WBC 50-100 SEEN Ur Squamous Epith Cells 0 SEEN Urine Bacteria 2+ Urine Mucus 0 SEEN Radiography Diagnostic Testing: Clinical Impression(s) from Imaging Studies Chest X-Ray 12/15/23 13:54 IMPRESSION: 1. No acute cardiopulmonary abnormality. 2. Pulmonary hyperinflation. 3. Satisfactory dialysis catheter placement. Electronically Signed: Ayad Fay MD at 14:36 EDT , Rhythm Strip Rhythm Strip: Sinus Rhythm Rate: 70 Ectopy: None EKG Initial EKG: Attestation: I personally reviewed and interpreted this EKG as follows: Interpretation: Sinus Rhythm, No Acute Injury Pattern and Inverted T-Waves Prior EKG tracings: available for review Prior: Changed (see above) Management Discussion w/another healthcare provider: Carpenter Assistant Installer (nephrology) <Dr. Julio Estrada MD - Last Filed: 12/15/23 18:28> [facility] Narrative Medical decision making narrative: Ordered 500 cc IV fluid bolus since he does not appear to be fluid overloaded, prior to getting any of that his blood pressure returned 98/66, and after fluids he was 110/67. His workup shows an elevated troponin, nonspecifically, and his priors are always abnormal as well although this 1 is a little higher. This is all likely due to his renal function, he is not having any symptoms of acute coronary syndrome. His EKG shows T wave inversions laterally, and new compared to his last EKG of February last year, he has some inferior T wave inversions without any ST segment depressions or elevations. This may be due to his renal failure and reasons other than an acute WI. He feels at baseline. He is not lightheaded. His renal function is noted, he is borderline uremic, just missing the anion gap elevation. He does need dialysis, but his electrolytes are stable at this time and he does not need emergently for hyperkalemia. Furthermore he has no sign of pneumonia on the chest x-ray 1 view on my interpretation. For these reasons I think it would be reasonable to observe him and do a 2-hour repeat troponin level. In addition, his urine shows signs of infection and clinically is very cloudy, yellow. He states no dysuria or lower abdominal discomfort with urinating, he states it always looks cloudy like that. However given the urinalysis less than 1 year ago showing none of these signs, had I am concerned about an infection although I do not necessarily think it was causing him to be hypotensive since his lactate is normal and he is clinically doing well, I am treating him empirically anyway with cephalexin and sending the urine for culture. Offered admission he declines and prefers to go home if safe. Repeat troponin returned slightly greater than the initial measurement, 281 up from 274, which is essentially the same with minimal change. Given this I am comfortable with him being discharged home. I did put a call out to whoever is on for his repair tech, to discuss his numbers given that it is Monday evening, and he may not be able to get dialyzed until Monday unless special arrangements are made. Patient turned over to me to be discharged home. We never got a call back from the patient's repair tech. I reevaluated the patient at 6:25 PM. He is doing well. He is comfortable being discharged home. He will follow-up next week for his dialysis on Monday. He will return if worse. He will be treated for UTI. Lab Data Labs: Laboratory Results - last 24 hr 12/15/23 12/15/23 12/15/23 13:15 14:49 14:50 WBC 9.2 RBC 3.05 L Hgb 10.0 L Hct 30.6 L MCV 100.3 H MCH 32.8 H MCHC 32.7 RDW Std Deviation 52.9 H RDW Coeff of Zachary 14.6 Plt Count 205 MPV 10.5 Immature Gran % (Auto) 0.500 Neut % (Auto) 93.4 H Lymph % (Auto) 0.7 L Gregory % (Auto) 4.7 Eos % (Auto) 0.3 Baso % (Auto) 0.4 Absolute Neuts (auto) 8.6 H Absolute Lymphs (auto) 0.06 L Nucleated RBC % 0 PT 13.8 INR 1.1 APTT 27.2 Sodium 137 Potassium 4.2 Chloride 105 Carbon Dioxide 21.0 Anion Gap 11 BUN 126 H* Creatinine 6.60 H Estim Creat Clear Calc 7.10 Est GFR (MDRD) Af Amer 11 L Est GFR (MDRD) Non-Af 9 L BUN/Creatinine Ratio 19.1 Glucose 116 H Lactic Acid 1.4 Calcium 8.5 Total Bilirubin 0.30 AST 30 ALT 59 Alkaline Phosphatase 138 H Troponin I High Sens 274 H* 281 H* Total Protein 5.5 L Albumin 2.3 L Globulin 3.2 Albumin/Globulin Ratio 0.7 L Urine Color Yellow Urine Clarity Cloudy Urine pH 6.0 Ur Specific Dresher 1.015 Urine Protein 500 H Urine Glucose (UA) Normal Urine Ketones Negative Urine Occult Blood 50 H Urine Nitrite Positive H Urine Bilirubin Negative Urine Urobilinogen Normal Ur Leukocyte Esterase 500 H Urine RBC 0-5 SEEN Urine WBC 50-100 SEEN Ur Squamous Epith Cells 0 SEEN Urine Bacteria 2+ Urine Mucus 0 SEEN Radiography Diagnostic Testing: Clinical Impression(s) from Imaging Studies Chest X-Ray 12/15/23 13:54 IMPRESSION: 1. No acute cardiopulmonary abnormality. 2. Pulmonary hyperinflation. 3. Satisfactory dialysis catheter placement. Electronically Signed: Ayad Fay MD at 14:36 EDT , Discharge Plan Triage Chief Complaint: Hypotension ED Provider: Jose Miguel Fernandez Dx/Rx/DC Orders Clinical Impression: Transient hypotension, End-stage renal disease (ESRD), Acute UTI Instructions: CKD Dc Prescriptions: New cephalexin [cephalexin] 500 mg capsule 500 mg PO Q12 Qty: 14 0RF Primary Care Provider: Jose Miguel Awan Referrals: Jose Miguel Awan MD [Primary Care Provider] - Disposition Disposition: Home, Self Care Discharge Date/Time: 12/15/23 19:04
[2023-12-15] MEDS: 0.9% Normal Saline (500mL Bag) 500 ML 999 ML IV (13:19)
[2023-12-15 13:40] LABS: Absolute Lymphocyte Count 0.06 X10^3/uL (0.83-4.51); Absolute Neutrophil Count 8.6 X10^3/uL (2.0-7.7); Basophil# 0.04 X10^3/uL; Basophil% 0.4 % (0-1); Eosinophil# 0.03 X10^3/uL; Eosinophils% 0.3 % (0-5); Hematocrit 30.6 % (40-54); Lymphocyte # 0.06 X10^3/ul (0.83-4.51); Lymphocyte % 0.7 % (19-41); Mean Corp Hgb Conc 32.7 g/dL (32-36); Mean Corpuscular Hgb 32.8 pg (27.0-32.0); Mean Corpuscular Volume 100.3 fL (80-94); Mean Platelet Vol. 10.5 fl (6.2-12.0); Monocyte# 0.43 X10^3/uL; Monocyte% 4.7 % (0-10); NRBC Flagged by Analyzer 0 % (0-5); Neutrophil # 8.55 X10^3/uL (2.7-7.7); Neutrophil % 93.4 % (47-70); POSITIVE DIFFERENTIAL YES; Platelet Count 205 K/mm3 (150-450); RBC Distribution Width CV 14.6 % (11.6-14.6); RBC Distribution Width SD 52.9 fl (35.1-43.9); Red Blood Count 3.05 M/mm3 (4.6-6.2); White Blood Count 9.2 K/mm3 (4.4-11.0)
--- NOTE | 2023-12-15 13:54 | RAD_ITS ---
EXAM: XR CHEST, 1 VIEW CLINICAL INDICATION: weakness, hypotension TECHNIQUE: Frontal view of the chest. COMPARISON: XR Chest dated 03/17/2023 FINDINGS: LUNGS AND PLEURAL SPACES: Hyperinflation suggesting emphysema. HEART: Normal heart size. MEDIASTINUM: No mediastinal or hilar mass. BONES/JOINTS: No acute abnormality. TUBES, LINES AND DEVICES: Right internal jugular central venous catheter tip in the distal superior vena cava. RAD/Chest 1 View (Portable) IMPRESSION: 1. No acute cardiopulmonary abnormality. 2. Pulmonary hyperinflation. 3. Satisfactory dialysis catheter placement. Electronically Signed: Ayad Fay MD at 14:36 EDT ,
[2023-12-15 13:59] LABS: International Normalized Ratio 1.1; Prothrombin Time (Protime)PT. 13.8 SECONDS (11.7-14.9)
[2023-12-15 14:00] LABS: Partial Thromboplast Time 27.2 Seconds (24.1-36.2)
[2023-12-15 14:02] LABS: Lactic Acid 1.4 mmol/L (0.4-1.9)
[2023-12-15 14:15] LABS: ALB/GLOB Ratio 0.7 RATIO (0.9-2.4); AST(SGOT) 30 U/L (15-37); Alanine Aminotransfer ALT/SGPT 59 U/L (16-61); Albumin, Serum 2.3 g/dL (3.2-5.0); Alkaline Phosphatase 138 U/L (45-117); Anion Gap 11 (5-15); BUN 126 mg/dL (7-18); BUN/Creat Ratio 19.1 RATIO (10-20); Calcium,Total 8.5 mg/dL (8.5-10.1); Chloride 105 mmol/L (98-107); EST Glomerular Filtration Rate 9 mL/min (>60); Est Glom Filt Rate - Afr Amer 11 mL/min (>60); Globulin 3.2 g/dL (2.2-4.2); Glucose 116 mg/dL (74-106); Potassium 4.2 mmol/L (3.5-5.1); Protein, Total 5.5 g/dL (6.4-8.2); Sodium Level 137 mmol/L (136-145); Troponin-I HS 274 pg/mL (3.0-78.0)
[2023-12-15 14:57] LABS: Mucous, Urine 0 SEEN /hpf (<or=2+); Squamous Epithelial Cells - UA 0 SEEN /hpf (0-5)
[2023-12-15 15:07] LABS: Color, Urine Yellow (Yellow); Glucose, Dipstick Normal (Normal); Ketone-Dipstick Negative (Negative); Leukocyte Esterase-Dipstick 500 /ul (Negative); Nitrite-Dipstick Positive (Negative); Occult Blood-Urine 50 /ul (Negative); Protein-Dipstick 500 mg/dl (Negative); Specific Gravity, Urine 1.015 (1.002-1.030); Urine Bilirubin Dipstick Negative (Negative); Urine Clarity Cloudy (Clear); Urine Urobilinogen Normal (Normal)
[2023-12-15 15:20] LABS: Bacteria 2+ /hpf (None Seen); Red Blood Cells-Urine 0-5 SEEN /hpf (0-5); White Blood Cells 50-100 SEEN /hpf (0-5)
[2023-12-15 16:18] LABS: Troponin-I HS 281 pg/mL (3.0-78.0)
[2023-12-15] MEDS: Cephalexin 250 MG Capsule 500 MG PO (16:50)
== END 2023-12-15 19:04 | disposition home or self-care (01) ==
PROVIDERS: Emergency Provider Emergency Medicine; PCP Family Medicine; Visit Provider Emergency Medicine
DX: I95.9 Hypotension, unspecified (principal); N18.6 End stage renal disease; N39.0 Urinary tract infection, site not specified; Z99.2 Dependence on renal dialysis
CPT/HCPCS: 71045; 80053; 81001; 83605; 84484; 85025; 85610; 85730; 87040; 87077; 87086; 87088; 87186; 93005; 96360; 96361; 99284; J7040

== ENCOUNTER 2023-12-18 09:53 | Emergency (ER) | payer MEDICARE, OTHER, SELFPAY ==
[2023-12-18 09:54] VITALS: PULSE 67; RESP 14; TEMP 36.4; O2SAT 99; BMI 15.7
[2023-12-18 09:57] VITALS: BP 120/73
--- NOTE | 2023-12-18 10:09 | EDS_ITS ---
HPI History of Present Illness Chief Complaint: Weakness Informant: patient Onset/Context/Timing Onset: Days Context: Gradual Onset Timing: Continuous Current Severity: Mild Maximum Severity: Mild Narrative Narrative: 73-year-old male currently seeing Dr. Amaya manage she being treated with chemotherapy for lymphoma. He also has a history of amyloidosis with cardiac involvement. End-stage renal disease and was posterior dialysis on Monday as pressure was too low at that time they could not do it. Just that he feels weak all over. He denies any recent nausea vomiting diarrhea or fever. He was hospitalized at the end of August into September at the [facility] for his amyloidosis. Patient had a significant workup on Monday that was unremarkable. He was discharged home. Prior similar symptoms: Yes Recent Illness/Hospitalization: Yes PFSH PFSH Medical History Acute kidney injury Anemia BPH (benign prostatic hyperplasia) Exertional dyspnea Guttate psoriasis Kidney disease Non-smoker Home Medications cephalexin 500 mg capsule 500 mg PO Q12 #14 CAPSULES 12/15/23 [Rx Last Taken Unknown] Allergy/AdvReac Type Severity Reaction Status Date / Time No Known Allergies Allergy Verified 12/18/23 09:54 Family History Father Heart disease Pacemaker Cancer hodgkins Sister Cancer non hodgkins Surgical History History of bilateral inguinal hernia repair (~2003) History of colonoscopy (~06/05/18) Social History Smoking Status: Never smoker ROS ROS ED ROS Narrative Generalized weakness. Malaise. Review of Systems ROS Unobtainable: Denies due to encephalopathy Constitutional Constitutional ED: Denies chills or fever(s) Eyes Eyes: Denies blurry vision ENT ENT ED: Denies ear pain Cardiovascular Cardiovascular: Denies chest pain Respiratory/Chest Respiratory/Chest: Denies cough or dyspnea Gastrointestinal Gastrointestinal: Denies abdominal pain, diarrhea, nausea or vomiting Genitourinary Genitourinary ED: Denies dysuria or hematuria Musculoskeletal Musculoskeletal: Denies arthralgias or back pain Integumentary Denies abscess or Abrasions Neurologic Neurologic: Denies headache(s) Psychiatric Psychiatric: Denies anxiety Endocrine Endocrinology: Denies cold intolerance Hematologic/Lymphatic Hematologic/Lymphatic: Reports none Allergic/Immunologic Allergic/Immunologic ED: Denies mouth swelling, tongue swelling, urticaria or other EXAM Physical Exam Narrative Exam Narrative: 73-year-old male who appears frail and generally weak but he is in no distress. Current blood pressure 117/78. He is afebrile. He does not look septic or toxic. He is in no distress. His pulse ox is on 9 9% on room air no signs hypoxia. H EENT exam unremarkable. Neck nontender. Lungs clear. Heart regular rhythm no murmur. Chest wall and ribs nontender. He is very thin and cachectic. Abdomen soft nontender. Moving all 4 extremities. Calves are nontender without edema or cords. He does have a right chest wall Vas-Cath in place. Neurologically is awake and alert. No focal motor deficits. Const Vital Signs: 12/18/23 09:54 12/18/23 09:57 12/18/23 10:59 Temperature 97.6 F L 97.8 F Temperature Source Temporal Pulse Rate 67 72 Respiratory Rate 14 16 Blood Pressure 120/73 134/83 H Blood Pressure Mean 88 100 Pulse Ox 99 99 Oxygen Delivery Method Room Air Positive well nourished and well developed; Negative for obese, cachectic, contractures or unkempt General Appearance ED: well developed and NAD; Negative for unkempt, cachectic, contractures, cyanotic, diaphoretic or pallor Nutritional Appearance: Negative for cachectic or obese HEENT Reports moist mucous membranes; Denies dry mucous membranes Negative for trauma or tenderness Mouth ED: No dry mucous membranes Mouth: No dry mucous membranes Eyes PERRL and EOMs intact bilaterally General Eye ED: Negative for pale conjunctiva, scleral icterus or other Neck no lymphadenopathy, supple and no JVD General: Negative for tenderness Lymph Lymphatic: Negative for other Chest Wall inspection of chest normal and palpation of chest normal Chest: Negative for other Resp normal respiratory effort and clear to auscultation bilaterally Effort and Inspection: Negative for retractions Auscultation: Negative for rales, rhonchi, wheezes or diminished lung sounds Cardio regular rate, regular rhythm, S1 normal heart sound, S2 normal heart sound and no murmurs Palpation: Negative for palpable S3 or palpable S4 Rate: Negative for bradycardia or tachycardic Rhythm: Negative for abnormal rhythm GI normal to inspection, nondistended, normoactive bowel sounds, non-tender, non- distended and no masses Inspection: Negative for abdominal distention Auscultation: normoactive bowel sounds Palpation: soft; Negative for tender or guarding Back/Spine no CVA tenderness General Back: Negative for CVA tenderness Cervical Spine: Negative for cervical spine tenderness Thoracic Spine / Upper Back: Negative for thoracic spinal tenderness or paraspinal muscle tenderness Lumbar Spine / Lower Back: Negative for lumbar spinal tenderness Extremity normal to inspection General Extremety ED: Negative for edema or tenderness General Extremity: Negative for edema Neuro oriented x3 and CN's II-XII intact bilaterally Sensorium / Orientation: alert and orientation impaired; Negative for lethargic or stuporous Motor Exam: strength 5/5 throughout Psych mental status grossly normal Appearance: Negative for unkempt Attitude: No agitated Mood & Affect: Negative for depressed, anxious or tearful Skin no rashes or lesions noted and no wounds General Skin Exam: Negative for jaundice or pallor Lesions: No lesion noted Rashes: No rashes noted Trauma: Negative for abrasion Wounds: Negative for wounds noted MDM MDM MDM Narrative Medical decision making narrative: 73-year-old male currently in no distress with stable blood pressure. This is labile though in he could become hypotensive while he is here. Spoke to dialysis they will try to dialyze him today. I have already spoken to Dr. Jose Luis Hugo. If the patient decompensates or gets worse or does not do well on dialysis we may have to send him up to [facility]. Repeat exam patient is doing well at 1040 Repeat exam at 10:42 AM patient is resting comfortably. I discussed with him the plans as he has stable vital signs now and he is not hypotensive, I spoke to the dialysis center and they will attempt to dialyze him today. I also discussed this with Dr. Chance key with the plan. The patient decompensate will take him back here and if need be try to transfer him to [facility]. History & Record Review Discussion w/independent historian: Patient Additional record(s) reviewed:: Prior inpatient record, Prior outpatient record and Prior labs Lab Data Attestation: I reviewed the patient's lab results. Lab results narrative: CBC shows white count 8.6. H&H of 10.4 and 31.5 which is his baseline chronic anemia. Platelets of 204. Electrolytes show a sodium 134 a gap of 12. BUN of 119 and creatinine 6.75 with a history of end-stage renal disease. He is starting dialysis today. Glucose 143. These are his baseline labs. Labs: Laboratory Results - last 24 hr 12/18/23 10:20 WBC 8.6 RBC 3.14 L Hgb 10.4 L Hct 31.5 L MCV 100.3 H MCH 33.1 H MCHC 33.0 RDW Std Deviation 53.9 H RDW Coeff of Zachary 14.7 H Plt Count 204 MPV 10.4 Immature Gran % (Auto) 0.700 Neut % (Auto) 92.1 H Lymph % (Auto) 1.0 L [place] % (Auto) 5.3 Eos % (Auto) 0.6 Baso % (Auto) 0.3 Absolute Neuts (auto) 7.9 H Absolute Lymphs (auto) 0.09 L Nucleated RBC % 0 Sodium 134 L Potassium 4.1 Chloride 105 Carbon Dioxide 17.0 L Anion Gap 12 BUN 119 H* Creatinine 6.75 H Estim Creat Clear Calc 6.69 Est GFR (MDRD) Af Amer 11 L Est GFR (MDRD) Non-Af 9 L BUN/Creatinine Ratio 17.6 Glucose 143 H Calcium 8.6 Discharge Plan Triage Chief Complaint: Weakness ED Provider: Julio Estrada Dx/Rx/DC Orders Clinical Impression: Transient hypotension, History of lymphoma, History of amyloidosis, Weakness, End-stage renal disease (ESRD) Instructions: ED Weakness (Uncertain Cause) Prescriptions: No Action cephalexin [cephalexin] 500 mg capsule 500 mg PO Q12 Qty: 14 0RF Primary Care Provider: Jose Miguel Awan Referrals: Jose Miguel Awan MD [Primary Care Provider] - Jose Luis Hugo DO [Med Staff - Active Staff] - As Needed Activity Restrictions/Additional Instructions: Plenty of fluids and rest. Continue your current medications and treatments. Follow-up with either Dr. Hugo or your primary care physician Dr. Rodriguez as needed or return if worse. Disposition Disposition: Home, Self Care Discharge Date/Time: 12/18/23 11:05
[2023-12-18 10:36] LABS: Absolute Lymphocyte Count 0.09 X10^3/uL (0.83-4.51); Absolute Neutrophil Count 7.9 X10^3/uL (2.0-7.7); Basophil# 0.03 X10^3/uL; Basophil% 0.3 % (0-1); Eosinophil# 0.05 X10^3/uL; Eosinophils% 0.6 % (0-5); Hematocrit 31.5 % (40-54); Hemoglobin 10.4 g/dL (13.0-16.5); Lymphocyte # 0.09 X10^3/ul (0.83-4.51); Mean Corpuscular Hgb 33.1 pg (27.0-32.0); Mean Corpuscular Volume 100.3 fL (80-94); Mean Platelet Vol. 10.4 fl (6.2-12.0); Monocyte# 0.46 X10^3/uL; Monocyte% 5.3 % (0-10); NRBC Flagged by Analyzer 0 % (0-5); Neutrophil # 7.91 X10^3/uL (2.7-7.7); Neutrophil % 92.1 % (47-70); POSITIVE DIFFERENTIAL YES; Platelet Count 204 K/mm3 (150-450); RBC Distribution Width CV 14.7 % (11.6-14.6); RBC Distribution Width SD 53.9 fl (35.1-43.9); Red Blood Count 3.14 M/mm3 (4.6-6.2); White Blood Count 8.6 K/mm3 (4.4-11.0)
[2023-12-18 10:52] LABS: Anion Gap 12 (5-15); BUN 119 mg/dL (7-18); BUN/Creat Ratio 17.6 RATIO (10-20); Calcium,Total 8.6 mg/dL (8.5-10.1); Chloride 105 mmol/L (98-107); Creatinine, Serum 6.75 mg/dL (0.70-1.30); EST Glomerular Filtration Rate 9 mL/min (>60); Est Glom Filt Rate - Afr Amer 11 mL/min (>60); Estimated Creatinine Clearance 6.69 ml/min; Glucose 143 mg/dL (74-106); Potassium 4.1 mmol/L (3.5-5.1); Sodium Level 134 mmol/L (136-145)
[2023-12-18 10:59] VITALS: BP 134/83; PULSE 72; RESP 16; TEMP 36.6; O2SAT 99
== END 2023-12-18 11:05 | disposition home or self-care (01) ==
LOC: ED 10:53
PROVIDERS: Emergency Provider Emergency Medicine; PCP Family Medicine; Visit Provider Emergency Medicine
DX: I95.9 Hypotension, unspecified (principal); N18.6 End stage renal disease; R53.1 Weakness
CPT/HCPCS: 80048; 85025; 99283; A4216

== ENCOUNTER → 2024-05-14 | Outpatient (CLI) | payer MEDICARE, OTHER, SELFPAY ==
[2024-05-14 16:46] LABS: PSA,Total- Diagnostic 0.06 ng/mL (0.0-4.0)
== END | disposition home or self-care (01) ==
LOC: LAB 15:48
PROVIDERS: PCP Family Medicine; Referring Provider Urology; Visit Provider Urology
DX: N40.1 Benign prostatic hyperplasia with lower urinary tract symptoms (principal)
CPT/HCPCS: 36415; 84153

== ENCOUNTER 2024-10-08 12:30 | Outpatient (CLI) | payer MEDICARE, OTHER, SELFPAY ==
--- NOTE | 2024-10-08 12:33 | VDUE_ITS ---
Reason For Study: Preop Fistula Creation Right Lower Arm Left Arm Radial Artery measures 0.22x0.28 cm with a Brachial Artery messures 0.38x0.43 cm with a velocity of 74.0 cm/s. velocity of 95.7 cm/s. Right Arm Cephalic Vein at distal forearm measures Brachial Artery measures 0.40x0.40cm with a 0.26c0.30 cm. velocity of 96.1 cm/s. Cephalic Vein at mid forearm measures Cephalic Vein at distal forearm measures 0.13x0.21 cm. 0.18x0.28 cm. Cephalic Vein proximal forearm measures Cephalic Vein at mid forearm measures 0.18x0.16 cm. 0.21x0.25 cm. Cephalic Vein distal upper arm measures Cephalic Vein proximal forearm measures 0.11x0.17 cm. 0.22x0.24 cm. Cephalic Vein at mid upper arm measures Cephalic Vein distal upper arm measures 0.27x0.34 cm. 0.13x0.20 cm. Cephalic Vein at proximal upper arm measures Cephalic Vein at mid upper arm measures 0.14x0.22 cm. 0.19x0.23 cm. Proximal Basilic vein measures 0.53x0.55 cm. Cephalic Vein at proximal upper arm measures Mid Basilic vein measures 0.50x0.56 cm. 0.18x0.25 cm. Distal Basilic vein measures 0.17x0.21 cm. Proximal Basilic vein measures 0.35x0.43 cm. Left Lower Arm Mid Basilic vein measures 0.23x0.30 cm. Radial Artery measures 0.18x0.21 cm with a Distal Basilic vein measures 0.23x0.32 cm. velocity of 86.9 cm/s. VL/Dialysis Vein Map PRE-OP BILAT Interpretation Summary Bilateral upper extremity arteries patent with normal waveforms and measurement s above. Bilateral upper extremity veins patent with measurements above. Left cephalic v ein with wall thickening. Ordering Physician: Shannen Park Referring Physician: Shannen Park Performed By: Paresh Aguilar RVT and Student ???
== END 2024-10-08 23:59 | disposition home or self-care (01) ==
LOC: CVS 12:32
PROVIDERS: PCP Family Medicine; Referring Provider Physician Assistant; Visit Provider Physician Assistant
DX: Z01.818 Encounter for other preprocedural examination (principal); N18.6 End stage renal disease; Z99.2 Dependence on renal dialysis
CPT/HCPCS: 93985

== ENCOUNTER → 2025-01-10 | Outpatient (CLI) | payer MEDICARE, OTHER, SELFPAY ==
[2025-01-10 19:19] LABS: Absolute Lymphocyte Count 0.36 X10^3/uL (0.83-4.51); Absolute Neutrophil Count 2.6 X10^3/uL (2.0-7.7); Basophil# 0.06 X10^3/uL; Basophil% 1.6 % (0-1); Eosinophil# 0.12 X10^3/uL; Eosinophils% 3.2 % (0-5); Hematocrit 28.4 % (40-54); Hemoglobin 9.2 g/dL (13.0-16.5); Lymphocyte # 0.36 X10^3/ul (0.83-4.51); Lymphocyte % 9.5 % (19-41); Mean Corp Hgb Conc 32.4 g/dL (32-36); Mean Corpuscular Hgb 34.5 pg (27.0-32.0); Mean Corpuscular Volume 106.4 fL (80-94); Mean Platelet Vol. 11.2 fl (6.2-12.0); Monocyte# 0.65 X10^3/uL; Monocyte% 17.1 % (0-10); NRBC Flagged by Analyzer 0 % (0-5); Neutrophil # 2.59 X10^3/uL (2.7-7.7); Neutrophil % 68.1 % (47-70); POSITIVE DIFFERENTIAL YES; Platelet Count 151 K/mm3 (150-450); RBC Distribution Width CV 14.6 % (11.6-14.6); RBC Distribution Width SD 56.6 fl (35.1-43.9); Red Blood Count 2.67 M/mm3 (4.6-6.2); White Blood Count 3.8 K/mm3 (4.4-11.0)
[2025-01-10 20:42] LABS: BUN 18 mg/dL (4-19)
[2025-01-10 20:43] LABS: BUN 62 mg/dL (4-19); Potassium 4.3 mmol/L (3.3-5.1)
== END | disposition home or self-care (01) ==
LOC: LABSPEC 18:57
PROVIDERS: PCP Family Medicine; Visit Provider Internal Medicine Nephrology
DX: N18.6 End stage renal disease (principal)
CPT/HCPCS: 84132; 84520; 85025

== ENCOUNTER 2025-01-14 09:09 | Day surgery (SDC) | payer MEDICARE, OTHER, SELFPAY ==
--- NOTE | 2025-01-01 11:13 | PAT.ANESEVAL ---
Pre-Assessment Diagnosis/Proposed Procedure Planned Operative Procedure(s): LEFT UPPER ARM AV GRAFT CREATION Anesthesia History Anesthesia History - facing end trimmer: Anesthesia History - facing end trimmer Hx Hospitalization No 12/31/24 09:16 Any Problems With Anesthesia No 12/31/24 09:16 Cholinesterase deficiency No 12/31/24 09:16 You/Your Family Experience No 12/31/24 09:16 fever (hyperthermia) with Relationship Recent Exposure to Contagious Disease Does patient have nerve No 12/31/24 09:16 stimulator Patient instructed to have device shut off --Does patient have Pacemaker or ICD? When Was Last Pacemaker Check QUESTION #4 FULL TEXT: You/Your Family Experience fever (hyperthermia) with Anesthesia Last Oral Intake Last Oral intake: Last Oral Intake NPO since Meds taken in AM with sips of water? Meds patient instructed to take am of surgery PONV PONV - facing end trimmer: PONV - facing end trimmer Female No 12/31/24 09:16 HX of Motion Sickness No 12/31/24 09:16 HX of N/V After Surgery No 12/31/24 09:16 Non-Smoker Yes 12/31/24 09:16 Duration of Surgery greater No 12/31/24 09:16 than 60 minutes Number of Risk Factors 1 12/31/24 09:16 PONV Score Low Risk 12/31/24 09:16 Height & Weight Height & Weight: Anesthesia: Height & Weight Height 5 ft 8 in 12/18/23 09:54 Respiratory Assessment Respiratory Assessment - facing end trimmer: Respiratory Tract Infection Hx - facing end trimmer Hx Respiratory Tract Infection No 12/31/24 09:16 STOP Sleep Apnea STOP Sleep Apnea - facing end trimmer: STOP Sleep Apnea - facing end trimmer Hx Hypertension No 12/31/24 09:16 Hx Sleep Apnea No 12/31/24 09:16 CPAP BIPAP Do you snore loudly (louder No 12/31/24 09:16 than talking or can be heard Do you often feel tired/ No 12/31/24 09:16 fatigued/ sleepy during daytime? Has anyone observed you stop No 12/31/24 09:16 breathing during sleep? STOP Results Negative 12/31/24 09:16 QUESTION #5 FULL TEXT : Do you snore loudly (louder than talking or can be heard through closed doors)? Tobacco Use History Tobacco Use History - facing end trimmer: Tobacco Use History - facing end trimmer Tobacco Use Smoking Status Never smoker 12/31/24 09:16 Hx Tobacco Use No 12/31/24 09:16 Years Smoking Packs Smoked per Day Smoking Cessation Date was within the last 15 years Hx Smoking Cessation Date Hx Smoking Cessation Counseling Hematologic Medial History Hematologic Hx - facing end trimmer: Hematologic Medical Hx - loan documentation specialist Hx of Blood Transfusion No 12/31/24 09:16 Hx of Transfusion in last 3 No 12/31/24 09:16 Months Date of Last Transfusion (if within last 3 months) Ever experience any problems No 12/31/24 09:16 with transfusion(s)? Specify any problems Hx of Preganancy in last 3 N/A 12/31/24 09:16 Months Nurse Filling Out Transfusion [place] 12/31/24 09:16 & Questions: Date: 12/31/24 12/31/24 09:16 Time: 09:34 12/31/24 09:16 Patient unable to answer at this time (ie. confused, unrespo /Reproduction History /Reproductive History - facing end trimmer: /Reproductive Hx- facing end trimmer Hx Now Gestational Age (in weeks): EDC: Hx Hx Para Hx Section SAB PFSH Medical History Wears glasses Cancer Depression Bruising Ambulates with cane History of renal disease History of renal dialysis Low iron High cholesterol Loss of consciousness Hoarseness History of edema History of echocardiogram History of stress test Cardiology follow-up encounter History of hydrocele Amyloidosis (~2022) Lymphoma (~2022) Kidney disease Non-smoker Anemia Exertional dyspnea Acute kidney injury Guttate psoriasis BPH (benign prostatic hyperplasia) Home Medications ?Medication ?Instructions ?Recorded ?Last Taken ?Type acyclovir 200 mg capsule 200 mg PO TID 09/05/24 Unknown History atorvastatin 20 mg tablet 20 mg PO QDAY 09/05/24 Unknown History calcium acetate 667 mg tablet 667 mg PO TID 09/05/24 Unknown History finasteride 5 mg tablet 5 mg PO QDAY 09/05/24 Unknown History zanubrutinib 80 mg capsule 160 mg PO BID 09/05/24 Unknown History (Brukinsa) Allergy/AdvReac Type Severity Reaction Status Date / Time No Known Allergies Allergy Verified 12/31/24 09:14 Family History Father Heart disease Pacemaker Cancer hodgkins Sister Cancer non hodgkins Surgical History History of colonoscopy (~06/05/18) History of bilateral inguinal hernia repair (~2003) Social History Smoking Status: Never smoker Audit: Pertinent Findings Pertinent Findings EKG Perinent findings: 12/15/2023. Normal sinus rhythm [address] and T wave abnormality, consider inferior lateral ischemia. Prolonged QT. October 10, 2024. Normal sinus rhythm 69 bpm. Lateral T wave inversions. Stress test pertinent findings: 04/21/2023. No definite evidence of ischemia. EF 56%. Echo (EF%) pertinent findings: 03/17/2023. Moderate concentric LVH. Normal function EF 65%. Pulmonary artery systolic pressure 28 mmHg. 12/10/2024. For cardiac amyloidosis positive LVH EF 63%. No significant valvular abnormalities. Consult pertinent findings: 01/05/2025 cardiology. Heart failure with preserved ejection fraction. Likely secondary to amyloidosis. Echo as above. Abnormal EKG due most likely to amyloidosis May consider stress test in the future. As he did not achieve 85% MPHR on prior stress test. otherwise no changes Recommendation Anesthesia Recommendation Anesthesia recommendation: OPTIMIZED for anesthesia
--- NOTE | 2025-01-07 14:53 | CASEMGMT ---
COLT GUZMAN NOTE: Received notification from COLT Orta CM director, that referral was received from [facility] d/t limited support. Pt scheduled to have arteriovenous dialysis graft placed to E by Dr Brody 01/14/25 @ [facility] as an OP. Per PAT, pt utilizing [facility] van to bring him to [facility] for the procedure and he has arranged for someone to take him home post-procedure. Call placed to pt at this time. Introduced self and role. Engaged pt in discussion re: his current available supports and the following questions answered. PCP: Dr Aawn Specialists: Dr Jenkins-nephro, Dr Hugo-public health microbiologist. Pt also has upcoming appt in January with a siebel developer @ [facility]. OP HD: Pt currently goes to [facility] for OP HD appts. Preferred Pharmacy/medications: [facility] [place], for most medications. Pt also gets a phosphorous binder delivered to his home from [facility] pharmacy in [place], and received delivery of oral chemo from [facility] specialty pharmacy. Pt states he is aware the phosphorous binder is to be taken w/food, but he is not sure how much food is recommended (a full meal vs if a snack is enough) He gets labs done @ [facility] and they monitor his phosphorous levels there. He meets w/the bushel girl @ [facility] monthly to go over his lab results and discuss any dietary recommendations at that time. He states he can discuss question about food amt/phosphorous binder with her. Insurance: [facility], MMO Prescription Benefit:?Yes Living Will/HPOA: Pt currently has a LW and HCPOA, stating his dentures lab technician, Otis Donis, is his healthcare POA. He does not think Otis can be reached outside of business hours, but he is not sure. He states he does not have an alternative agent listed, but he would consider having his cousin, Manuela Edgar added in case Otis was not able to be reached. He wishes to discuss this with Otis first before completing new documents. He was made aware, if he chooses to complete new documents, completing these w/[facility] SW is an option, in addition to his dentures lab technician. He states does not think AD are on file @ [facility] and states he can bring these documents in on the day of his procedure to be copied/placed on his chart. LNOK: Otis Betancur, pt's dentures lab technician and HCPOA. Cousin, Manuela Edgar, lives in [place], [place]. She is not currently listed on his demographics. He would like to add her, but states he does not have her phone # on hand. He plans to bring that in on day of procedure to have them add her to his contact list. Living Arrangements: Lives alone. Indep w/ADL's and IADL's. He has groceries delivered to his home. Pt manages his own medications and appts and feels he has a good understanding of his medications and diagnosis. Transportation:?Pt states drives self and states no transportation concerns at this time.?He verifies [facility] Van will be taking him to OP procedure 01/14 and that he has someone to take him home afterwards. DME: Pt uses a cane for community distances. He states no need for further DME at this time.? COLT GUZMAN offered support and discussed any need of resources. Pt states he is managing things well @ home and denies having any needs. He states there is a SW @ Dr Hugo's office, but he has only asked assistance from her once, and she was not able to assist him. He states there also is a SW @ [facility] available for any needs. He denies having any current needs for resources or assistance from this RN CM at this time. Pt was informed that COLT GUZMAN is available as a resource or assistance should any needs arise. Pt provided w/this [facility]T GUZMAN contact # as well as [facility] CM director, contact #. Yuriy LANZA RN, CM
[2025-01-14] VITALS (11 sets, daily range): BP systolic 97–127; BP diastolic 53–66; PULSE 66–82; RESP 16; TEMP 36.1–36.6; O2SAT 94–100; BMI 18.4
[2025-01-14] MEDS: 0.9% Normal Saline (500mL Bag) 500 ML 15 ML IV (10:19)
--- NOTE | 2025-01-14 10:21 | PCM.PRE.AN2 ---
ASA Classification* ASA Classification ASA Classification: 3 Assessment & Plan Anesthesia* Anesthesia Assessment Anesthesia Assessment: Discussed sedation and/or anesthesia options, risks, benefits, and alternatives with patient/parents/legal guardian/POA. Questions invited. The patient/parents/legal guardian/POA seems to understand and agrees to proceed with anesthesia plan. Reviewed the physical assessment, medical history, allergy history and patient home medications list prior to surgery/procedure/anesthetic and documented any changes. Performed airway and anesthesia risk assessments. Anesthesia Type Anesthesia Type: General History Source History Obtained from:: Patient and Chart Anesthesia Focused Assessment* Temperature: 97.0 F Pulse Rate: 66 Blood Pressure: 125/65 Respiratory Rate: 16 Pulse Ox: 100 Oxygen Delivery Method: Room Air Airway Assessment Mouth opens: >3 cm Mallampati Score: III Teeth Condition: Lower (Patient has a couple of implants lower jaw. They are both tight) Neck Range of motion (ROM): Full ROM Focused Labs Anesthesia Preop lab: CBC WBC 3.8 K/mm3 (4.4-11.0) L 01/10/25 12:22 01/10/25 RBC 2.67 M/mm3 (4.6-6.2) L 01/10/25 12:22 01/10/25 Hgb 9.2 g/dL (13.0-16.5) L 01/10/25 12:22 01/10/25 Hct 28.4 % (40-54) L 01/10/25 12:22 01/10/25 Plt Count 151 K/mm3 (150-450) 01/10/25 12:22 01/10/25 CHEMISTRY Potassium 4.3 mmol/L (3.3-5.1) 01/10/25 12:22 01/10/25 Sodium 134 mmol/L (136-145) L 12/18/23 10:20 12/18/23 BUN 18 mg/dL (4-19) 01/10/25 14:38 01/10/25 Creatinine 6.75 mg/dL (0.70-1.30) H 12/18/23 10:20 12/18/23 Glucose 143 mg/dL (74-106) H 12/18/23 10:20 12/18/23 TSH 3.58 uIU/mL (0.358-3.74) 03/17/23 11:30 03/17/23 COAG PT 13.8 SECONDS (11.7-14.9) 12/15/23 13:15 12/15/23 Pre-Assessment Diagnosis/Proposed Procedure Planned Operative Procedure(s): LEFT UPPER ARM AV GRAFT CREATION Anesthesia History Anesthesia History - stopper setter: Anesthesia History - stopper setter Hx Hospitalization No 12/31/24 09:16 Any Problems With Anesthesia No 12/31/24 09:16 Cholinesterase deficiency No 12/31/24 09:16 You/Your Family Experience No 12/31/24 09:16 fever (hyperthermia) with Relationship Recent Exposure to Contagious No 01/14/25 09:55 Disease Does patient have nerve No 12/31/24 09:16 stimulator Patient instructed to have device shut off --Does patient have Pacemaker No 01/14/25 09:55 or ICD? When Was Last Pacemaker Check QUESTION #4 FULL TEXT: You/Your Family Experience fever (hyperthermia) with Anesthesia Last Oral Intake Last Oral intake: Last Oral Intake NPO since 23:00 01/14/25 09:55 Meds taken in AM with sips of No 01/14/25 09:55 water? Meds patient instructed to take am of surgery Any additional information?: Yes NPO since: 00:30 (Patient water at 12:30AM.) PONV PONV - stopper setter: PONV - stopper setter Female No 12/31/24 09:16 HX of Motion Sickness No 12/31/24 09:16 HX of N/V After Surgery No 12/31/24 09:16 Non-Smoker Yes 12/31/24 09:16 Duration of Surgery greater No 12/31/24 09:16 than 60 minutes Number of Risk Factors 1 12/31/24 09:16 PONV Score Low Risk 12/31/24 09:16 Height & Weight Height & Weight: Anesthesia: Height & Weight Height 5 ft 8 in 01/14/25 09:55 Weight: 55.1 kg 01/14/25 09:55 Body Mass Index (BMI) 18.4 01/14/25 09:55 Respiratory Assessment Respiratory Assessment - stopper setter: Respiratory Tract Infection Hx - stopper setter Hx Respiratory Tract Infection No 12/31/24 09:16 STOP Sleep Apnea STOP Sleep Apnea - stopper setter: STOP Sleep Apnea - stopper setter Hx Hypertension No 12/31/24 09:16 Hx Sleep Apnea No 12/31/24 09:16 CPAP BIPAP Do you snore loudly (louder No 12/31/24 09:16 than talking or can be heard Do you often feel tired/ No 12/31/24 09:16 fatigued/ sleepy during daytime? Has anyone observed you stop No 12/31/24 09:16 breathing during sleep? STOP Results Negative 12/31/24 09:16 QUESTION #5 FULL TEXT : Do you snore loudly (louder than talking or can be heard through closed doors)? 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 Specify any problems Hx of Preganancy in last 3 N/A 12/31/24 09:16 Months Nurse Filling Out Transfusion [facility] 12/31/24 09:16 & Questions: Date: 12/31/24 12/31/24 09:16 Time: 09:34 12/31/24 09:16 Patient unable to answer at this time (ie. confused, unrespo /Reproduction History /Reproductive History - stopper setter: /Reproductive Hx- stopper setter Hx Now Gestational Age (in weeks): EDC: Hx Hx Para Hx Section SAB Active Medications Active Medications: Current Medications Generic Name Dose Route Start Last Admin Trade Name Freq PRN Reason Stop Dose Admin Cefazolin Sodium 2 gm/ Sodium 110 mls @ 150 mls/hr 01/14/25 12:00 Chloride IV 01/14/25 12:43 INTRAOP ONE Sodium Chloride 500 mls @ 0 mls/hr 01/14/25 09:30 01/14/25 10:19 IV 15 mls/hr .Q0M JASWANT Administration KVO PFSH Medical History Wears glasses Cancer Depression Bruising Ambulates with cane History of renal disease History of renal dialysis Low iron High cholesterol Loss of consciousness Hoarseness History of edema History of echocardiogram History of stress test Cardiology follow-up encounter History of hydrocele Amyloidosis (~2022) Lymphoma (~2022) Kidney disease Non-smoker Anemia Exertional dyspnea Acute kidney injury Guttate psoriasis BPH (benign prostatic hyperplasia) Home Medications ?Medication ?Instructions ?Recorded ?Last Taken ?Type acyclovir 200 mg capsule 200 mg PO TID 09/05/24 Unknown History atorvastatin 20 mg tablet 20 mg PO QDAY 09/05/24 Unknown History calcium acetate 667 mg tablet 667 mg PO TID 09/05/24 Unknown History finasteride 5 mg tablet 5 mg PO QDAY 09/05/24 Unknown History zanubrutinib 80 mg capsule 160 mg PO BID 09/05/24 Unknown History (Bettina) Allergy/AdvReac Type Severity Reaction Status Date / Time No Known Allergies Allergy Verified 01/14/25 09:54 Family History Father Heart disease Pacemaker Cancer hodgkins Sister Cancer non hodgkins Surgical History History of colonoscopy (~06/05/18) History of bilateral inguinal hernia repair (~2003) Social History Smoking Status: Never smoker Review of Systems (Anesthesia) ROS Narrative System reviewed and no additional complaints, except as documented.
--- NOTE | 2025-01-14 13:26 | PCM.HP.STD ---
HPI - General HPI Narrative EDGAR HENDERSON, is a 74 M who presents with ESRD currently on dialysis. He has only right arm basilic vein suitable for [place] fistula and does not wish to risk adverse outcome in his dominant arm. He presents for left arm AV graft with cadaver. [facility] Medical History Wears glasses Cancer Depression Bruising Ambulates with cane History of renal disease History of renal dialysis Low iron High cholesterol Loss of consciousness Hoarseness History of edema History of echocardiogram History of stress test Cardiology follow-up encounter History of hydrocele Amyloidosis (~2022) Lymphoma (~2022) Kidney disease Non-smoker Anemia Exertional dyspnea Acute kidney injury Guttate psoriasis BPH (benign prostatic hyperplasia) Home Medications ?Medication ?Instructions ?Recorded ?Last Taken ?Type acyclovir 200 mg capsule 200 mg PO TID 09/05/24 Unknown History atorvastatin 20 mg tablet 20 mg PO QDAY 09/05/24 Unknown History calcium acetate 667 mg tablet 667 mg PO TID 09/05/24 Unknown History finasteride 5 mg tablet 5 mg PO QDAY 09/05/24 Unknown History zanubrutinib 80 mg capsule 160 mg PO BID 09/05/24 Unknown History (Brukinsa) Allergy/AdvReac Type Severity Reaction Status Date / Time No Known Allergies Allergy Verified 01/14/25 09:54 Family History Father Heart disease Pacemaker Cancer hodgkins Sister Cancer non hodgkins Surgical History History of colonoscopy (~06/05/18) History of bilateral inguinal hernia repair (~2003) Social History Smoking Status: Never smoker ROS Constitutional Constitutional: Denies chills, fever(s), frequent falls, lethargy or weakness Eyes Eyes: Denies blind spots, change in vision or loss of vision ENT HEENT: Denies bleeding gums, hoarseness or sore throat Cardiovascular Cardiovascular: Denies abdominal pain, bluish discoloration of hand/feet, chest pain with activity, claudication, cold extremities, cyanosis, dyspnea on exertion, erythema on extremities, irregular heart rhythm, leg edema, leg ulcers, numbness in extremities or weakness in extremities Respiratory/Chest Respiratory/Chest: Denies cough, excessive phlegm production, shortness of breath at rest, shortness of breath with exertion or wheezing Gastrointestinal Gastrointestinal: Denies anorexia, change in stool character, constipation, diarrhea, melena or rectal bleeding Genitourinary Genitourinary: Denies dysuria or hematuria Musculoskeletal Musculoskeletal: Denies abnormal gait Integumentary Integumentary: Reports other Details: ; Denies erythema, non-healing lesions or wounds Neurologic Neurologic: Denies abnormal speech, focal weakness, headache(s), loss of vision, numbness, paresthesias or sensory deficit Hematologic/Lymphatic Hematologic/Lymphatic: Denies easy bleeding, easy bruising or lymphadenopathy Vital Signs Vital Signs Vital Signs: 01/14/25 09:55 01/14/25 09:55 01/14/25 10:31 Temperature 97.0 F L 97.0 F L Temperature Source Temporal Pulse Rate 66 66 Respiratory Rate 16 16 Respiratory Pattern Irregular Blood Pressure 125/65 H 125/65 H Blood Pressure Mean 85 Blood Pressure Source Monitor Blood Pressure Position Semi-Fowlers Blood Pressure Location Right Arm Pulse Ox 100 100 Oxygen Delivery Method Room Air Room Air Weight Weight: 121 lb 7.595 oz Body Mass Index (BMI) 18.4 Physical Exam Const alert, oriented x3, no apparent distress and healthy appearing General Appearance: cooperative; Negative for combative or lethargic Orientation / Consciousness: awake Exam Limitations: no limitations HEENT Head and Scalp: normocephalic and atraumatic Eyes EOMs intact bilaterally General Eye: normal appearance of both eyes Neck full ROM General: trachea midline Resp normal respiratory effort and no use of accessory muscles Effort and Inspection: Negative for labored, stridor or audible wheezes Cardio regular rate and regular rhythm Peripheral Pulses: brachial pulses present and radial pulses present Back/Spine Cervical Spine: cervical ROM normal Extremity full ROM, normal capillary refill and no clubbing, cyanosis or edema Skin no rashes or lesions noted and no wounds Neuro oriented x3, no focal motor deficits and no sensory deficits noted Psych thought process normal, cooperative, affect normal, speech normal and activity/motor behavior normal Assessment & Plan Assessment/Plan (1) ESRD (end stage renal disease) on dialysis: PLAN: -left arm AV graft
[2025-01-14] MEDS: Cefazolin 2 GM in 0.9% Normal Saline (100mL Bag) 100 ML IV (14:01)
[2025-01-14] MEDS: Heparin 10,000 UNITS/10 ML Vial 10000 UNITS (14:23)
[2025-01-14] MEDS: Bupivacaine 0.25% 30 ML Vial (16:04)
--- NOTE | 2025-01-14 16:07 | DCINST_ITS ---
Discharge Instructions Diet Discharge Diet: No restrictions Activity Lifting Restrictions: do not lift > 20 lbs with left arm for 3 weeks Additional Activity Instructions:: do not submerge incision for 3 weeks Dressing / Incision Call your doctor if your incision/area has: Sudden Increased Bleeding, Increased Pain/ Swelling, Increased Redness and Foul Smelling Discharge Call your doctor if you observe: Coldness, Increased Pain and Numbness or Tingling Remove Dressing in: 2 days Cleanse incision/area with: Soap & Water Follow Up Care Test Results: Test results from this visit will be discussed in further detail at your follow- up appointment, if applicable. Discharge Plan Admission Attending Provider: Alvarado Brody Primary Care Provider: Jose Miguel Awan Instructions Print Language: Slovenian Discharge Orders/Prescriptions Prescriptions: New oxycodone 5 mg tablet 5 mg PO Q8H PRN (Reason: pain) 2 Days Qty: 6 0RF Continued calcium acetate 667 mg tablet 667 mg PO TID acyclovir 200 mg capsule 200 mg PO TID finasteride 5 mg tablet 5 mg PO QDAY atorvastatin 20 mg tablet 20 mg PO QDAY Brukinsa 80 mg capsule 160 mg PO BID Referrals / Follow Up: Jose Miguel Awan MD [Primary Care Provider] - Disposition Disposition (needs filled in before D/C Order can be placed): Home, Self Care
--- NOTE | 2025-01-14 16:38 | PCM.POST.ANE ---
Anesthesia: Postop Eval I Current Vital Signs Temperature: 97.9 F Pulse Rate: 77 Blood Pressure: 127/66 Respiratory Rate: 16 Pulse Ox: 100 Oxygen Delivery Method: Venturi Mask Oxygen Flow Rate (L/min): 6 Assessment Airway patent: Yes Spontaneous unlabored respirations: Yes Mental status: Awake nausea: No Vomiting: No Anesthesia Complication: No Fluid Hydration Crystalloid volume administer (ml): 400 Total IV fluid infused: 400 Progress Note Anesthesia document: Postop Eval 1 completed: Yes
--- NOTE | 2025-01-14 16:47 | POSTOPAN2_ITS ---
Anesthesia Postop Eval I Sum Postop Eval Completion status Anesthesia document: Postop Eval 1 completed: Yes Anesthesia Postop Eval I Summary Anesthesia Postop Eval I Summary: Anesthesia Postop Eval I: Assessment Summary Airway patent Yes 01/14/25 16:38 [email or web address] Spontaneous unlabored Yes 01/14/25 16:38 ACCESS [email or web address] respirations Mental status Awake 01/14/25 16:38 ACCESS [email or web address] nausea No 01/14/25 16:38 ACCESS [email or web address] Vomiting No 01/14/25 16:38 ACCESS [email or web address] Anesthesia Postop Eval I: Fluid Summary Crystalloid volume administer 400 01/14/25 16:38 ACCESS [email or web address] (ml) Colloids volume administered ( ml) Blood Product volume administered (ml) Total IV fluid infused 400 01/14/25 16:38 ACCESS [email or web address] Anesthesia Postop Eval I: Summary Notes Anesthesia Complication No 01/14/25 16:38 ACCESS [email or web address] Anesthesia Complication Comment: Post-operative progress note Anesthesia: Postop Eval II Evaluation Mental status: Awake and Calm Pain Level: 0 nausea: No Vomiting: No Complications Anesthesia Complication: No
--- NOTE | 2025-01-14 16:47 | PCM.POSTANE2 ---
Anesthesia Postop Eval I Sum Postop Eval Completion status Anesthesia document: Postop Eval 1 completed: Yes Anesthesia Postop Eval I Summary Anesthesia Postop Eval I Summary: Anesthesia Postop Eval I: Assessment Summary Airway patent Yes 01/14/25 16:38 FOOD SAFETY [email or web address] Spontaneous unlabored Yes 01/14/25 16:38 FOOD SAFETY MANAGER.[email or web address] respirations Mental status Awake 01/14/25 16:38 FOOD SAFETY [email or web address] nausea No 01/14/25 16:38 FOOD SAFETY MANAGER.[email or web address] Vomiting No 01/14/25 16:38 FOOD SAFETY MANAGER.[email or web address] Anesthesia Postop Eval I: Fluid Summary Crystalloid volume administer 400 01/14/25 16:38 FOOD SAFETY MANAGER.[email or web address] (ml) Colloids volume administered ( ml) Blood Product volume administered (ml) Total IV fluid infused 400 01/14/25 16:38 FOOD SAFETY MANAGER.[email or web address] Anesthesia Postop Eval I: Summary Notes Anesthesia Complication No 01/14/25 16:38 FOOD SAFETY MANAGER.[email or web address] Anesthesia Complication Comment: Post-operative progress note Anesthesia: Postop Eval II Evaluation Mental status: Awake and Calm Pain Level: 0 nausea: No Vomiting: No Complications Anesthesia Complication: No
--- NOTE | 2025-01-14 17:47 | PCM.OPRPT ---
Operative Report (Standard) Operative Information Date of Procedure: 01/14/25 Pre-Operative Diagnosis: End-stage renal disease currently on dialysis Post-Operative Diagnosis: Same Surgery/Procedure Performed: Left upper arm AV graft placement with cadaver femoral-popliteal artery curb worker: Yes Promotional Marketing Agent: Mary Rapp Tasks completed by assistant chief engineer: Opening, Closing, Opening & closing and Retracting Type of Anesthesia: General RN Documented Start/Stop Times: Operation Date: 01/14/25 12:00 Case Time Into Pre-Op 01/14/25 09:23 Out of Pre-Op 01/14/25 13:58 Anesthesia Start 01/14/25 14:00 Into Room 01/14/25 14:00 Procedure Start 01/14/25 14:23 Procedure End 01/14/25 16:22 Anesthesia End 01/14/25 16:31 Out of Room 01/14/25 16:31 Into Recovery 01/14/25 16:35 Out of Recovery 01/14/25 17:30 Into Phase II Recovery 01/14/25 17:31 Procedure Start Time: 14:20 Procedure Stop Time: 16:20 Select all DRAINS/GRAFTS/IMPLANTS that apply: Graft Graft details: Cadaver femoral-popliteal artery Estimated Blood Loss: 25 Specimen collected: No Description of surgery: HPI: Patient is a 74-year-old male with end-stage renal disease currently on dialysis via tunneled IJ catheter. He had vein mapping which revealed minimal the [place] vessel options with his best the [place] vessel in his dominant right upper extremity. He prefers to avoid his dominant extremity so he presents now for graft placement of the left upper extremity. Description of procedure: Upon obtaining form consent and verification correct patient procedure site the patient was taken to the operating where he was placed under general anesthesia. He was then positioned prepped and draped in usual sterile fashion a time was performed. The skin overlying the brachial artery in the distal forearm was anesthetized 1% lidocaine and a transverse incision made 1 fingerbreadth superior to the antecubital crease. Bovie electrocautery used to dissect down through the subcutaneous tissue and self-retaining retractors put in position. Further dissection was then carried down to the fascia which was incised and self-retaining retractor moved deeper into the wound. Sharp dissection was used to dissect free the brachial artery proximal and distal and a right angle used to place a vessel loop with care taken to identify and protect adjacent nerve and vein structures. Next skin overlying the confluence of the basilic and brachial vein at the axilla was anesthetized 1% lidocaine and longitudinal incision created. Bovie electrocautery was then used to dissect down to the subcutaneous tissue and self-retaining retractor put in position. Sharp dissection was then used to incise the fascia and self-retaining retractors moved deeper into the wound with care taken to identify and protect the adjacent nerves. The basilic vein just prior to its confluence with the brachial vein was dissected free and right angle used to place a vessel loop proximal and distal as well as around 2 large bridging veins. A Ace tunneler was then used to tunnel through the subcutaneous tissue on the anterior aspect of the upper arm over the bicep muscle. The cadaver graft was thawed per wireless sales expert's instructions and the patient heparinized allowed to circulate for 3 minutes. The brachial artery was then occluded with Vesseloops and longitudinal arteriotomy created with 11 blade extended with the Pitts scissors. The graft was then anastomosed in end-to-side fashion with 5-0 Prolene in a running fashion. After completing the suture line the vessels were back flushed into the graft and the graft occluded just beyond the anastomosis with satisfactory stasis noted of the suture line. The graft was then marked to maintain orientation and secured to the tunneler then pulled through the subcutaneous tissue to the upper arm. The basilic vein was then occluded with Vesseloops and longitudinal venotomy created with an 11 blade extended with Pitts scissors. The graft was then cut the length and beveled to match the venotomy. Distal anastomosis was then performed using a 5-0 Prolene in a running fashion. Prior to completing the suture line the vessels were backbled after completing the suture line clamps removed and satisfactory stasis was noted. There is a palpable thrill in the graft in the outflow vein and a palpable radial pulse at the wrist. Heparin was then reversed with protamine and incision inspected for hemostasis. The incision was then closed with 3-0 Vicryl followed by 4-0 Monocryl and Dermabond for the skin. The patient was then awakened from anesthesia and taken the recovery room with anticipated discharge to home. Surgical Findings: Palpable thrill, palpable radial pulse Complications Complications: No
== END 2025-01-14 18:43 | disposition home or self-care (01) ==
LOC: SDC 09:13 → AC 09:15
PROVIDERS: PCP Family Medicine; Referring Provider Surgery Trauma Surgery; Visit Provider Surgery Trauma Surgery
PROC: (CPT 36830; principal; 2025-01-14 11:45)
DX: N18.6 End stage renal disease (principal); E78.00 Pure hypercholesterolemia, unspecified; Z99.2 Dependence on renal dialysis; Z79.899 Other long term (current) drug therapy
CPT/HCPCS: 36830; 01844; A4648; J2405

== ENCOUNTER 2025-05-01 06:46 | Day surgery (SDC) | payer MEDICARE, OTHER, SELFPAY ==
[2025-04-30 07:36] VITALS: BMI 18.2
--- OUTSIDE RECORDS SUMMARY | 2025-05-01 06:52 | XMS RPT_ITS | CCD ---
Author Organization [facility] Care Team Providers Care Email Campaign Manager Name Role Phone Jose Miguel Herbert MD Primary Care Provider Dr. Jose Miguel Herbert Primary Care Provider Dr. Abundio Zepeda Attending Provider Dr. Jonathan Estrada Emergency Provider Dr. Jonathan Fernando Admit Provider Dr. Jonathan Fernando Attending Provider Dr. Jonathan Fernando Other Provider Jose Miguel Herbert MD Primary Care Provider Dina Tolentino RN Unavailable Unavailable Kosta POLLOCK Jose A Unavailable Denise Houston Unavailable Unavailabl e Dr. Jonathan Fernando Referring Provider Dr. Jose Miguel Herbert Referring Provider Dr. Jose Miguel Herbert Other Provider Dr. Demetri Do Attending Provider Doheather RN, Dina Unavailable Unavailable MASCI, JOSE A Referring Unavailable JOSE MIGUEL HERBERT Primary Care Unavailable Chester aPtel MD Unavailable Desari, Jayprakash Unavailable Unavailable Desari, Jayprakash Unavailable Caitlin, Jayaprakash Unavailable Unavailable Ashley JACKSON, Laverne Unavailable Jose Miguel Herbert MD Unavailable Elisa DO, Gumaro Unavailable EMIL MIKE Attending Unavailable EMIL MIKE Admitting Unavailable EMPERATRIZ JOSE MIGUEL A Primary Care Unavailable EMIL MIKE Referring Unavailable EMPERATRIZ, JOSE MIGUEL A Primary Care Unavailable ANKUR BENAVIDEZ Attending Unavailable ANKUR BENAVIDEZ Admitting Unavailable Empeartriz JACKSON, Jose Miguel Copeland Primary Care Provider Jose Miguel Herbert MD Primary Care Provider Jose Miguel Herbert MD Unavailable Kieran IT PROJECT LEAD.PRODUCT INTRODUCTION MANAGER, Jess Unavailable Rui LAMA, Sheree Unavailable Dr. Jose Miguel Herbert MD Primary Care Provider Shannen Domingo Attending Provider [phone] Shannen Domingo Referring Provider [phone] Ronn JACKSON, Dr. Childers Attending Provider [phone] Emperatriz JACKSON, Dr. Gillespie Referring Provider Holly JACKSON, Dr. Nicole Attending Provider Ronn JACKSON, Dr. Childers Referring Provider [phone] Ronn JACKSON, Dr. Childers Other Provider [phone] Eric Kwan MD, Chester Unavailable Emperatriz JACKSON, Dr. Gillespie Primary Care Provider Ronn JACKSON, Dr. Childers Attending Provider [phone] Shannen Domingo Attending Provider [phone] Kieran IT PROJECT LEAD.PRODUCT INTRODUCTION MANAGER, Jess Unavailable Sheree Fabian PA-C Unavailable MASCI, JOSE A Referring Unavailable MASCI, JOSE A Attending Unavailable EMPERATRIZ, JOSE MIGUEL A Primary Care Unavailable MASCI, JOSE A Referring Unavailable JOSE MIGUEL HERBERT A Primary Care Unavailable EMPERATRIZ, JOSE MIGUEL A Primary Care Unavailable MASCI, JOSE A Referring Unavailable EMPERATRIZ, JOSE MIGUEL A Primary Care Unavailable MASCI, JOSE A Referring Unavailable JOSE MIGUEL HERBERT A Primary Care Unavailable EMPERATRIZJOSE MIGUEL BELLAMY A Primary Care Unavailable YESSICA HANSEN Attending Unavailable MASCI, JOSE A Referring Unavailable EMPERATRIZ, JOSE MIGUEL A Primary Care Unavailable MASCI, JOSE A Referring Unavailable EMPERATRIZ, JOSE MIGUEL A Primary Care Unavailable MASCI, JOSE A Attending Unavailable MASCI, JOSE A Referring Unavailable EMPERATRIZ, JOSE MIGUEL A Primary Care Unavailable EMPERATRIZ, JOSE MIGUEL A Referring Unavailable EMPERATRIZ, JOSE MIGUEL A Primary Care Unavailable EMPERATRIZ, JOSE MIGUEL A Attending Unavailable EMPERATRIZ, JOSE MIGUEL A Primary Care Unavailable MASCI, JOSE A Referring Unavailable EMPERATRIZ, JOSE MIGUEL A Primary Care Unavailable SHEREE FABIAN Attending Unavailable EMPERATRIZ, JOSE MIGUEL A Primary Care Unavailable EMPERATRIZ, JOSE MIGUEL A Primary Care Unavailable EMPERATRIZ, JOSE MIGUEL A Primary Care Unavailable MASCI, JOSE A Referring Unavailable MASCI, JOSE A Attending Unavailable EMPERATRIZ, JOSE MIGUEL A Primary Care Unavailable MASCI, JOSE A Attending Unavailable EMPERATRIZ, JOSE MIGUEL A Primary Care Unavailable EMPERATRIZ, JOSE MIGUEL A Primary Care Unavailable EMPERATRIZ, JOSE MIGUEL A Primary Care Unavailable MASCI, JOSE A Attending Unavailable EMPERATRIZ, JOSE MIGUEL A Primary Care Unavailable MASCI, JOSE A Referring Unavailable EMPERATRIZ, JOSE MIGUEL A Primary Care Unavailable MASCI, JOSE A Referring Unavailable EMPERATRIZ, JOSE MIGUEL A Primary Care Unavailable MASCI, JOSE A Referring Unavailable SHEREE FABIAN Referring Unavailable EMPERATRIZ, JOSE MIGUEL A Primary Care Unavailable CHESTER PATEL Attending Unavailabl e EMPERATRIZ, JOSE MIGUEL A Primary Care Unavailable MASCI, JOSE A Referring Unavailable EMPERATRIZ, JOSE MIGUEL A Primary Care Unavailable Emperatriz, Jose Miguel Referring Unavailable Emperatriz, Jose Miguel Primary Care Unavailable [place], Alvarado Attending Unavailable Emperatriz, Jose Miguel Primary Care Unavailable Ronn, Alvarado Attending Unavailable Ronn, Alvarado Referring Unavailable Emperatriz, Jose Miguel Primary Care Unavailable Bonnie Barrera Attending Unavailable Emperatriz, Jose Miguel Primary Care Unavailable Ronn, Alvarado Referring Unavailable Ronn, Alvarado Attending Unavailable Emperatriz, Jose Miguel Primary Care Unavailable MakeyYessicand Attending Unavailable Emperatriz, Jose Miguel Primary Care Unavailable ChanelIsauro Attending Unavailable ChanelIsauro Referring Unavailable Emperatriz, Jose Miguel Primary Care Unavailable Park, Shannen Attending Unavailable Park, Shannen Referring Unavailable Park, Shannen Attending Unavailable Emperatriz, Jose Miguel Referring Unavailable Emperatriz, Jose Miguel Primary Care Unavailable Emperatriz, Jose Miguel Referring Unavailable Park, Shannen Attending Unavailable Emperatriz, Jose Miguel Primary Care Unavailable Emperatriz, Jose Miguel Primary Care Unavailable [place], Alvarado Attending Unavailable Emperatriz, Jose Miguel Primary Care Unavailable Ronn, Alvarado Attending Unavailable [place], Alvarado Referring Unavailable Alvarado Brody Consulting Unavailable Jose Miguel Herbert Primary Care Unavailable Shannen Park Attending Unavailable Jose Miguel Herbert Referring Unavailable Medications Current Medications Medication Drug Class(es) Dates Sig (Normalized) Sig (Original) acyclovir 200 mg oral capsule (20 sources) Herpesvirus Nucleoside Analog DNA Polymerase Inhibitor, Herpes Simplex Virus Nucleoside Analog DNA Polymerase Inhibitor, Herpes Zoster Virus Nucleoside Analog DNA Polymerase Inhibitor Start: 09-05-2024 take 1 capsule by mouth three times daily Acyclovir 200 mg capsule Active 200 mg PO THREE TIMES A DAY September 05, 2024 1:00am Start: 09-19-2023 End: 02-17-2025 take 1 capsule by mouth once daily acyclovir (ZOVIRAX) 200 mg capsule TAKE 1 CAPSULE BY MOUTH EVERY DAY 90 capsule 2 02/17/2025 Active Start: 04-24-2023 End: 07-25-2023 take 1 capsule by mouth once daily acyclovir (ZOVIRAX) 200 mg capsule Take 1 capsule by mouth once daily. 90 capsule 2 07/25/2023 Suspended Comment on above: Take 1 capsule by mo [facility] once daily. atorvastatin 20 mg oral tablet (20 sources) HMG-CoA Reductase Inhibitor Start: 09-05-20 take 1 tablet by mouth once daily at bedtime for hyperlipidemia atorvastatin (LIPITOR) 20 mg tablet Take 1 tablet by mouth daily at bedtime. For cholesterol. 90 tablet 1 02/04/2025 Active Start: 09-19-2023 End: 08-06-2024 take 1 tablet by mouth once daily at bedtime for hyperlipidemia atorvastatin (LIPITOR) 20 mg tablet Take 1 tablet by mouth daily at bedtime. For cholesterol. 90 tablet 1 08/06/2024 Active Start: 06-27-2023 take 1 tablet by cam th once daily at bedtime for hyperlipidemia atorvastatin (LIPITOR) 20 mg tablet Take 1 tablet by mouth daily at bedtime. For cholesterol. 30 tablet 5 06/27/2023 Suspended Comment on above: Take 1 tablet by cam th daily at bedtime. For cholesterol. calcium acetate 667 mg oral tablet (20 sources) Start: 09-05-2024 take 1 tablet by mouth three times daily Calcium Acetate 667 mg tablet Active 667 mg PO THREE TIMES A DAY September 05, 2024 1:00am take 1 tablet by cam th twice daily at mealtime calcium acetate (CALPHRON) 667 mg tablet Take 667 mg by mouth two times a day with meals. Active End: 08-06-2024 take 1 capsule by mouth three times daily calcium acetate,phosphat bind, (PHOSLO) 667 mg capsule Take 667 mg by mouth three times a day. 08/06/2024 Discontinued (Discontinued by another Health Care Provider) enteric contrast (will be provided with radiology test) (1 source) Start: 04-06-2023 End: 04-06-2023 take 1 dose by mouth once, then take 1 dose by mouth once enteric contrast (will be provided with radiology test) Take 1 Each by mouth one time only for [address] Chest ABD/PEL WO Routine order Administer, As Directed One Time Only, via Oral, Rectal, both Oral and Rectal, Enteric Tube, Stoma or Indwelling Catheter, Enteric Contrast as designated per enteric contrast guidelines 1 Each 0 04/06/2023 04/06/2023 Active Comment on above: Take 1 Each by mouth one time only for [address] Chest ABD/PEL WO Routine order Administer, As Directed One Time Only, via Oral, Rectal, both Oral and Rectal, Enteric Tube, Stoma or Indwelling Catheter, Enteric Contrast as designated per enteric contrast guidelines finasteride 5 mg oral tablet (20 sources) 5-alpha Reductase Inhibitor Start: 10-23-2023 End: 04-04-2025 take 1 tablet by mouth once daily finasteride (PROSCAR) 5 mg tablet TAKE 1 TABLET BY MOUTH EVERY DAY 90 tablet 2 04/04/2025 Active Comment on above: Take 1 tablet by cam once daily. midodrine hydrochloride 2.5 mg oral tablet (20 sources) alpha-Adrenergic Agonist Start: 01-28-2025 take 1 tablet by mouth once as needed Midodrine 2.5 mg tablet Active 2.5 mg PO ONCE as needed January 28, 2025 12:00am Start: 01-21-2025 End: 04-21-2025 midodrine (PROAMATINE) 2.5 m g tablet Indications: Cardiac amyloidosis (HCC) , Chronic diastolic congestive heart failure (HCC) Take 1 tablet by mouth as needed. Take if SBP 30 tablet 3 01/21/2025 04/21/2025 Active Start: 10-09-2023 End: 10-10-2024 take 1 tablet by mouth three times daily midodrine (PROAMITINE) 5 mg tablet Take 1 tablet by mouth three times a day. 90 tablet 3 11/16/2023 10/10/2024 Discontinued (Discontinued by Patient) Comment on above: Take 1 tablet by cam th three times a day. oxyCODONE hydrochloride 5 mg oral tablet (3 sources) Opioid Agonist Start: take 1 tablet by mouth every eight hours as needed for pain Oxycodone 5 mg tablet Active 5 mg PO Q8H as needed for pain 6 2 January 14, 2025 perflutren lipid microspheres 1.3 mL in NaCl (PF) 0.9% 10 mL injection (DEFINITY) (20 sources) Start: 3 End: 4 perflutren lipid microspheres 1.3 mL in NaCl (PF) 0.9% 10 mL injection (DEFINITY) 125 ml sodium chloride 9 mg/ml prefilled syringe (20 sources) Start: 3 End: 4 sodium chloride 0.9 % (flush) 10 mL (BD POSIFLUSH) zanubrutinib 80 mg oral capsule (20 sources) Start: 4 take 1 capsule by mouth twice daily Zanubrutinib (Brukinsa) 80 mg capsule Active 160 mg PO TWICE A DAY September 05, 2024 1:00am Start: 04-18-2024 End: 10-28-2024 take 2 capsules by mouth twice daily zanubrutinib (BRUKINSA) 80 mg capsule Indications: 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, Light chain (AL) amyloidosis (HCC) Take 2 capsules (160 mg) by mouth two times a day with a glass of water 120 capsule 5 03/19/2025 11:40 AM EDT 10/28/2024 Active Completed/Discontinued Medications Medication Drug Class(es) Dates Sig (Normalized) Sig (Original) acetaminophen 325 mg oral tablet (4 sources) Start: 04-23-2024 End: 04-23-2024 acetaminophen 650 mg tab(s) (TYLENOL) Start: 03-26-2024 End: 03-26-2024 acetaminophen 650 mg tab(s) (TYLENOL) Start: 02-27-2024 End: 02-27-2024 acetaminophen 650 mg tab(s) (TYLENOL) Start: 01-30-2024 End: 01-30-2024 acetaminophen 650 mg tab(s) (TYLENOL) acetaminophen 250 mg / aspirin 250 mg / caffeine 65 mg oral tablet (6 sources) Platelet Aggregation Inhibitor, Nonsteroidal Anti-inflammatory Drug, Central Nervous System Stimulant, Methylxanthine Start: 06-10-2005 End: 03-23-2023 EXCEDRIN 250 MG-250 MG-65 MG ORAL TAB as necessary 0 06/10/2005 03/23/2023 Discontinued (Discontinued by Patient) Comment on above: as necessary bendamustine 100 mg in NaCl 0.9% 544 mL (8 sources) Start: 04-25-2024 End: 04-25-2024 bendamustine 100 mg in NaCl 0.9% 544 mL Start: 04-23-2024 End: 04-23-2024 bendamustine 100 mg in NaCl 0.9% 544 mL Start: 03-28-2024 End: 03-28-2024 bendamustine 100 mg in NaCl 0.9% 544 mL Start: 03-26-2024 End: 03-26-2024 bendamustine 100 mg in NaCl 0.9% 544 mL Start: 02-29-2024 End: 02-29-2024 bendamustine 100 mg in NaCl 0.9% 544 mL Start: 02-27-2024 End: 02-27-2024 bendamustine 100 mg in NaCl 0.9% 544 mL Start: 02-01-2024 End: 02-01-2024 bendamustine 100 mg in NaCl 0.9% 544 mL Start: 01-30-2024 End: 01-30-2024 bendamustine 100 mg in NaCl 0.9% 544 mL bumetanide 0.5 mg oral tablet (20 sources) Loop Diuretic Start: 11-16-2023 End: 03-19-2024 take 1 tablet by mouth once daily bumetanide (BUMEX) 0.5 mg tablet Take 1 tablet by mouth once daily. 0 11/16/2023 03/19/2024 Discontinued Start: 10-23-2023 End: 04-20-2024 take 1 tablet by mouth once daily bumetanide (BUMEX) 1 mg tablet Take 1 tablet by mouth once daily. 90 tablet 1 10/23/2023 11/16/2023 Discontinued Start: 10-06-2023 End: 10-23-2023 take 1 tablet by mouth once bumetanide (BUMEX) 0.5 mg tablet Take 1 tablet by mouth every Monday, Monday, and Monday. 0 10/06/2023 10/23/2023 Discontinued Start: 06-28-2023 take 2 tablets by mo uth once daily bumetanide (BUMEX) 0.5 mg tablet Take 2 tablets by mouth once daily. 60 tablet 1 06/28/2023 Suspended Comment on above: Take 2 tablets by mo ut once daily. Take 1 tablet by cam th once daily. Take 1 tablet by cam th every Monday, Monday, and Monday. cephalexin 500 mg oral capsule (5 sources) Cephalosporin Antibacterial Start: 12-15-19 End: 09-05-20 take 1 capsule by mouth every twelve hours Cephalexin 500 mg capsule Discontinued 500 mg PO EVERY 12 HOURS December 15, 2023 12:00am September 05, 2024 11:28am dexAMETHasone 10 mg in NaCl 0.9% 50 mL (DECADRON) (8 sources) Start: 04-25-20 End: 04-25-20 dexAMETHasone 10 mg in NaCl 0.9% 50 mL (DECADRON) Start: 04-23-2024 End: 04-23-2024 dexAMETHasone 10 mg in NaCl 0.9% 50 mL (DECADRON) Start: 03-28-2024 End: 03-28-2024 dexAMETHasone 10 mg in NaCl 0.9% 50 mL (DECADRON) Start: 03-26-2024 End: 03-26-2024 dexAMETHasone 10 mg in NaCl 0.9% 50 mL (DECADRON) Start: 02-29-2024 End: 02-29-2024 dexAMETHasone 10 mg in NaCl 0.9% 50 mL (DECADRON) Start: 02-27-2024 End: 02-27-2024 dexAMETHasone 10 mg in NaCl 0.9% 50 mL (DECADRON) Start: 02-01-2024 End: 02-01-2024 dexAMETHasone 10 mg in NaCl 0.9% 50 mL (DECADRON) Start: 01-30-2024 End: 01-30-2024 dexAMETHasone 10 mg in NaCl 0.9% 50 mL (DECADRON) diphenhydrAMINE (20 sources) Histamine-1 Receptor Antagonist Start: 04-23-2024 End: 04-23-2024 diphenhydrAMINE 12.5 mg injection (BENADRYL) Start: 03-26-2024 End: 03-26-2024 diphenhydrAMINE 12.5 mg inje ction (BENADRYL) Start: 02-27-2024 End: 02-27-2024 diphenhydrAMINE 12.5 mg inje ction (BENADRYL) Start: 01-30-2024 End: 01-30-2024 diphenhydrAMINE 12.5 mg inje ction (BENADRYL) End: 08-06-2024 take 1 tablet by mouth once daily at bedtime diphenhydrAMINE (BENADRYL ALLERGY) 25 mg tablet Take 25 mg by mouth daily at bedtime. 08/06/2024 Discontinued (Discontinued by Patient) furosemide 20 mg oral tablet (14 sources) Loop Diuretic Start: 05-02-2023 End: 05-01-2024 take 1 tablet by mouth once daily furosemide (LASIX) 20 mg tablet Indications: SOB (shortness of breath) , Acute on chronic heart failure with preserved ejection fraction (HFpEF) ([facility]) Take 1 tablet by mouth once daily. 90 tablet 3 05/02/2023 06/02/2023 Discontinued (Course of therapy completed) Comment on above: Take 1 tablet by [facility] once daily. 11.7 ml hyaluronidase, human recombinant 2000 unt/ml / riTUXimab 120 mg/ml injection (4 sources) Endoglycosidase, [id number] Cytolytic Antibody Start: 04-23-2024 End: 04-23-2024 riTUXimab - hyaluronidase 1,400 mg injection (RITUXAN HYCELA) Start: 03-26-2024 End: 03-26-2024 riTUXimab - hyaluronidase 1, 400 mg injection (RITUXAN HYCELA) Start: 02-27-2024 End: 02-27-2024 riTUXimab - hyaluronidase 1, 400 mg injection (RITUXAN HYCELA) Start: 01-30-2024 End: 01-30-2024 riTUXimab - hyaluronidase 1, 400 mg injection (RITUXAN HYCELA) omeprazole 40 mg delayed release oral capsule (20 sources) Proton Pump Inhibitor Start: 04-05-2023 End: 05-27-2023 take 1 capsule by mouth once daily omeprazole (PRILOSEC) 40 mg capsule Take 40 mg by mouth once daily. 0 04/05/2023 05/27/2023 Discontinued Comment on above: once daily. Take 40 mg by mouth once daily. ondansetron 8 mg oral tablet (20 sources) Serotonin-3 Receptor Antagonist Start: 04-20-2023 ondansetron (ZOFRAN) 8 mg tablet Indications: 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Take 1 tablet by mouth every 8 hours as needed (For chemotherapy induced nausea. Take 1 hour prior to treatment and then every 8 hours as needed for nausea.). 30 tablet 2 04/20/2023 Active Comment on above: Take 1 tablet by cam every 8 hours as needed (For chemotherapy induced nausea. Take 1 hour prior to treatment and then every 8 hours as needed for nausea.). 5 ml palonosetron 0.05 mg/ml injection (4 sources) Serotonin-3 Receptor Antagonist Start: 04-23-2024 End: 04-23-2024 palonosetron 0.25 mg injection (ALOXI) Start: 03-26-2024 End: 03-26-2024 palonosetron 0.25 mg injecti on (ALOXI) Start: 02-27-2024 End: 02-27-2024 palonosetron 0.25 mg injecti on (ALOXI) Start: 01-30-2024 End: 01-30-2024 palonosetron 0.25 mg injecti on (ALOXI) 0.6 ml pegfilgrastim 10 mg/ml prefilled syringe (4 sources) Leukocyte Growth Factor Start: 04-25-2024 End: 04-25-2024 pegfilgrastim 6 mg wearable injection (NEULASTA ONPRO) Start: 03-28-2024 End: 03-28-2024 pegfilgrastim 6 mg wearable injection (NEULASTA ONPRO) Start: 02-29-2024 End: 02-29-2024 pegfilgrastim 6 mg wearable injection (NEULASTA ONPRO) Start: 02-01-2024 End: 02-01-2024 pegfilgrastim 6 mg wearable injection (NEULASTA ONPRO) regadenoson (LEXISCAN) 0.4 mg/5 mL syrg (1 source) Start: 03-23-2023 End: 03-23-2023 regadenoson (LEXISCAN) 0.4 mg/5 mL syrg Indications: Decreased stamina , Elevated troponin level , SOB (shortness of breath) , Nonspecific ST-T wave electrocardiographic changes Inject 5 mL intravenously one time only for 1 dose. Give IV push over 10 seconds and follow with 5 ml of normal saline 5 mL 0 03/23/2023 03/23/2023 Comment on above: Inject 5 mL intravenously one time only for 1 dose. Give IV push over 10 seconds and follow with 5 ml of normal saline sodium bicarbonate 650 mg oral tablet (1 source) Start: 10-16-2023 End: 10-23-2023 take 1 tablet by mouth three times daily sodium bicarbonate 650 mg tablet Take 1 tablet by mouth three times a day. 180 tablet 0 10/16/2023 10/23/2023 Discontinued Comment on above: Take 1 tablet by mouth three times a day . Problems Active Problems Problem Classification Problem Date Documented Date Episodic/Chronic Adjustment disorders (20 sources) Reactive depression (situational); Translations: [Adjustment disorder with depressed mood] Onset: 4 11-29-2023 Chronic Chronic kidney disease (20 sources) Chronic kidney disease stage 3B ; Translations: [Stage 3b chronic kidney disease (HCC)] Onset: 3 05-24-2023 Chronic Complication of device; implant or graft (13 sources) Complication of urinary catheter; Translations: [Unspecified complication of genitourinary prosthetic device, implant and graft, initial encounter] Onset: 3 2023 Episodic Congestive heart failure; nonhypertensive (20 sources) Acute on chronic heart failure co-occurrent with normal ejection fraction; Translations: [Acute on chronic diastolic (congestive) heart failure] Onset: 3 Resolved: 3 04-27-2023 Chronic Deficiency and other anemia (2 sources) Anemia, unspecified; Translations: [Anemia, unspecified] 03-17-2023 Episodic Disorders of lipid metabolism (20 sources) Raised low density lipoprotein cholesterol; Translations: [Pure hypercholesterolemia, unspecified] Onset: 3 05-27-2023 Chronic Hyperplasia of prostate (20 sources) Benign prostatic hyperplasia; Translations: [Benign prostatic hyperplasia without lower urinary tract symptoms] Onset: 1 01-18-2022 Chronic Immunity disorders (20 sources) [place] light chain disease; Translations: [Other specified disorders involving the immune mechanism, not elsewhere classified] Onset: 3 04-19-2023 Chronic Neoplasms of unspecified nature or uncertain behavior (4 sources) Polyclonal gammopathy; 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] 04-05-2023 Chronic Nephritis; nephrosis; renal sclerosis (1 source) Glomerular disorders in diseases classified elsewhere; Translations: [Renal amyloidosis (HCC) (HCC)] Onset: 4 Chronic Non-Hodgkin`s lymphoma (20 sources) [place]denstrom macroglobulinemia; Translations: [[place] macroglobulinemia] Onset: 3 04-06-2023 Chronic Non-Hodgkin`s lymphoma (4 sources) History of malignant lymphoma; Translations: [Personal history of non-Hodgkin lymphomas] 12-18-2023 Episodic Other bone disease and musculoskeletal deformities (1 source) Metabolic bone disease; Translations: [Other specified disorders of bone, unspecified site] 11-24-2023 Episodic Other circulatory disease (5 sources) Transient hypotension; Translations: [Hypotension, unspecified] 12-15-2023 Episodic Other circulatory disease (1 source) Low blood pressure; Translations: [Other hypotension] 01-05-2024 Episodic Other diseases of kidney and ureters (20 sources) Hyperparathyroidism due to renal insufficiency; Translations: [Secondary hyperparathyroidism of renal origin] Onset: 3 08-30-2023 Chronic Other diseases of kidney and ureters (1 source) Secondary hyperparathyroidism of renal origin; Translations: [Secondary hyperparathyroidism, renal (HCC)] Onset: 4 Chronic Other hematologic conditions (1 source) Macrocytosis; Translations: [Other specified diseases of blood and blood-forming organs] 04-04-2023 Chronic Other hematologic conditions (20 sources) Raised cardiac enzyme or marker; Translations: [Other specified abnormalities of plasma proteins] Onset: 3 03-17-2023 Episodic Other hematologic conditions (3 sources) Other specified abnormalities of plasma proteins; Translations: [Other abnormal blood chemistry] 03-17-2023 Episodic Other inflammatory condition of skin (20 sources) Guttate psoriasis; 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] Onset: 6 01-18-2022 Chronic Other lower respiratory disease (8 sources) Dyspnea on exertion; Translations: [Other forms of dyspnea] 03-17-2023 Episodic Other lower respiratory disease (2 sources) Other forms of dyspnea; Translations: [Other respiratory abnormalities] 03-17-2023 Episodic Other lower respiratory disease (20 sources) Dyspnea; Translations: [Shortness of breath] Onset: 3 Episodic Other nervous system disorders (20 sources) Taste sense altered; Translations: [[place]] Onset: 3 Episodic Other nutritional; endocrine; and metabolic disorders (7 sources) Amyloid nephropathy; 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] 04-23-2023 Chronic Other nutritional; endocrine; and metabolic disorders (20 sources) AL amyloidosis; 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] Onset: 3 04-23-2023 Chronic Other nutritional; endocrine; and metabolic disorders (2 sources) Light chain (AL) amyloidosis; 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)] Onset: 3 Chronic Other nutritional; endocrine; and metabolic disorders (2 sources) Organ-limited amyloidosis; Translations: [Renal amyloidosis (HCC) (HCC)] Onset: 4 Chronic Other nutritional; endocrine; and metabolic disorders (4 sources) H/O: metabolic disorder; Translations: [Personal history of other endocrine, nutritional and metabolic disease] 12-18-2023 Episodic Otitis media and related conditions (1 source) Dysfunction of left eustachian tube; Translations: [Unspecified Eustachian tube disorder, left ear] 08-06-2024 Episodic [place]-; endo-; and myocarditis; cardiomyopathy (except that caused by tuberculosis or sexually transmitted disease) (20 sources) Cardiomyopathy; Translations: [Other cardiomyopathies] Onset: 3 05-24-2023 Chronic Residual codes; unclassified (2 sources) Active living will ; Translations: [Personal history of other specified conditions] Onset: 2 Episodic Unclassified (20 sources) Active living will ; Translations: [Living will on file] Onset: 2 01-27-2022 Unclassified (2 sources) Creatinine level - finding; Translations: [High creatinine] 03-26-2023 Urinary tract infections (4 sources) Acute urinary tract infection; Translations: [Urinary tract infection, site not specified] 12-16-2023 Episodic Past or Other Problems Problem Classification Problem Date Documented Date Episodic/Chronic Acute and unspecified renal failure (20 sources) Injury of kidney; Translations: [Acute kidney failure, unspecified] Onset: 03-23-2023 03-17-2023 Episodic Administrative/social admission (20 sources) Advance directive discussed with patient; Translations: [Other specified counseling] Onset: 01-27-2022 Episodic Deficiency and other anemia (20 sources) Anemia; Translations: [Anemia, unspecified] Onset: 03-23-2023 03-17-2023 Episodic Diabetes mellitus without complication (20 sources) Hyperglycemia; Translations: [Hyperglycemia, unspecified] Onset: 06-26-2023 05-27-2023 Episodic Diseases of mouth; excluding dental (20 sources) Black hairy tongue; Translations: [Hypertrophy of tongue papillae] Onset: 03-23-2023 Episodic Fluid and electrolyte disorders (20 sources) Hypokalemia; Translations: [Hypokalemia] Onset: 08-29-2023 Resolved: 2023 08-29-2023 Episodic Genitourinary symptoms and ill-defined conditions (20 sources) Urinary tract obstruction; Translations: [Obstructive and reflux uropathy, unspecified] Onset: 08-29-2023 Resolved: 2023 08-29-2023 Episodic Hypertension with complications and secondary hypertension (20 sources) Cardiorenal syndrome; Translations: [Hypertensive heart and chronic kidney disease without heart failure, with stage 1 through stage 4 chronic kidney disease, or unspecified chronic kidney disease] Onset: 08-29-2023 Resolved: 2023 08-29-2023 Chronic Malaise and fatigue (20 sources) Fatigue; Translations: [Other fatigue] Onset: 03-23-2023 Resolved: 05-27-2023 Episodic Nutritional deficiencies (20 sources) Deficiency of macronutrients; Translations: [Unspecified severe protein-calorie malnutrition] Onset: 09-13-2023 Resolved: 10-02-2023 10-02-2023 Chronic Other aftercare (20 sources) Patient encounter status; Translations: [Other chcf (current) drug therapy] Onset: 04-13-2018 Episodic Other diseases of kidney and ureters (20 sources) Hydronephrosis; Translations: [Unspecified hydronephrosis] Onset: 08-29-2023 Resolved: 2023 08-29-2023 Episodic Other male genital disorders (20 sources) Disorder of prostate; Translations: [Disorder of prostate, unspecified] Onset: 04-13-2018 Episodic Other nutritional; endocrine; and metabolic disorders (20 sources) Unintentional weight loss; Translations: [Abnormal weight loss] Onset: 03-23-2023 Resolved: 08-06-2024 Episodic Other nutritional; endocrine; and metabolic disorders (20 sources) Loss of appetite; Translations: [Anorexia] Onset: 03-23-2023 Episodic Other nutritional; endocrine; and metabolic disorders (1 source) Anorexia; Translations: [Lack of appetite] Onset: 03-23-2023 Episodic Other screening for suspected conditions (not mental disorders or infectious disease) (20 sources) Creatinine level - finding; Translations: [Other specified abnormal findings of blood chemistry] Onset: 03-23-2023 03-17-2023 Episodic Other upper respiratory disease (20 sources) Hoarse; Translations: [Dysphonia] Onset: 03-23-2023 Episodic Residual codes; unclassified (20 sources) Family history of prostate cancer; Translations: [Family history of malignant neoplasm of prostate] Onset: 05-12-2009 Episodic Residual codes; unclassified (20 sources) Bilateral lower limb edema; Translations: [Localized edema] Onset: 03-23-2023 Episodic Results Test Name Value Interpretation Reference Range Facility CBC W Auto Differential pane l (Bld)on 04-22-2025 Basophils (Bld) [#/Vol] 0.07 10*3/uL Normal <0.11 [facility] Comment on above: Order Comment: Speci men Type: BLOOD SPECIMENOrdering Facility: [facility] Address: [address] [place] [address] Performed By: #### 5 7021-8 ####[facility] MANJULAWNCLIA [id number] [place] [address] [place] Basophils/100 WBC (Bld) 2.1 % Normal C [facility] Comment on above: Order Comment: Speci men Type: BLOOD SPECIMENOrdering Facility: [facility] Address: [address] [place] [address] Performed By: #### 5 7021-8 ####[facility] MANJULASANTA ANAFRANCISCOLIA [id number] [place] [address] [place] Differential cell count method Nom (Bld) Auto Normal [facility] Comment on above: Order Comment: Speci men Type: BLOOD SPECIMENOrdering Facility: [facility] Address: [address] [place] [address] Performed By: #### 5 7021-8 ####[facility] MANJULASANTA ANAFRANCISCOPASCUALA [id number] [place] [address] [place] Eosinophils (Bld) [#/Vol] 0.12 10*3/uL Normal <0.46 [facility] Comment on above: Order Comment: Speci men Type: BLOOD SPECIMENOrdering Facility: [facility] Address: [address] [place] [address] Performed By: #### 5 7021-8 ####[facility] CENTERFRANCISCOLIA [id number] [place] [address] [place] Eosinophils/100 WBC (Bld) 3.6 % Normal [facility] Comment on above: Order Comment: Speci men Type: BLOOD SPECIMENOrdering Facility: [facility] Address: [address] [place] [address] Performed By: #### 5 7021-8 ####[facility] CENTERFRANCISCOLIA [id number] [place] [address] [place] Erythrocyte distribution width (RBC) [Ratio] 14.1 % Normal 11.5-15.0 [facility] Comment on above: Order Comment: Speci men Type: BLOOD SPECIMENOrdering Facility: [facility] Address: [address] [place] [address] Performed By: #### 5 7021-8 ####[facility]ENTERNCBE[facility] [id number] [place] [address] [place] Hematocrit (Bld) [Volume fraction] 32.6 % Low 39.0-51.0 [facility] Comment on above: Order Comment: Speci men Type: BLOOD SPECIMENOrdering Facility: [facility] Address: [address] [place] [address] Performed By: #### 5 7021-8 ####[facility]ENTERNC[facility] [id number] [place] [address] [place] Hemoglobin (Bld) [Mass/Vol] 10.9 g/dL Low 13.0-17.0 [facility] Comment on above: Order Comment: Speci men Type: BLOOD SPECIMENOrdering Facility: [facility] Address: [address] [place] [address] Performed By: #### 5 7021-8 ####[facility] CENTERNCLIA [id number] [place] [address] [place] Immature granulocytes (Bld) [#/Vol] 10*3/uL Normal <0.10 [facility] Comment on above: Order Comment: Speci men Type: BLOOD SPECIMENOrdering Facility: [facility] Address: [address] [place] [address] Performed By: #### 5 7021-8 ####[facility] [id number] [place] [address] [place] Immature granulocytes/100 WBC (Bld) 0.3 % Normal [facility] Comment on above: Order Comment: Speci men Type: BLOOD SPECIMENOrdering Facility: [facility] Address: [address] [place] [address] Performed By: #### 5 7021-8 ####[facility] MILLWNCLIA [id number] [place] [address] [place] Lymphocytes (Bld) [#/Vol] 0.54 10*3/uL Low 1.00-4.00 [facility] Comment on above: Order Comment: Speci men Type: BLOOD SPECIMENOrdering Facility: [facility] Address: [address] [place] [address] Performed By: #### 5 7021-8 ####[facility] CENTERNCLIA [id number] [place] [address] [place] Lymphocytes/100 WBC (Bld) 16.0 % Normal [facility] Comment on above: Order Comment: Speci men Type: BLOOD SPECIMENOrdering Facility: [facility] Address: [address] [place] [address] Performed By: #### 5 7021-8 ####[facility] CENTERNCLIA [id number] [place] [address] [place] MCH (RBC) [Entitic mass] 34.8 pg High 26.0-34.0 [facility] Comment on above: Order Comment: Speci men Type: BLOOD SPECIMENOrdering Facility: [facility] Address: [address] [place] [address] Performed By: #### 5 7021-8 ####[facility] HOSPITALLIA [id number] [place] [address] [place] MCHC (RBC) [Mass/Vol] 33.4 g/dL Normal 30.5-36.0 [facility] Comment on above: Order Comment: Speci men Type: BLOOD SPECIMENOrdering Facility: [facility] Address: [address] [place] [address] Performed By: #### 5 7021-8 ####[facility] HOSPITALLIA [id number] [place] [address] [place] MCV (RBC) [Entitic vol] 104.2 fL High 80.0-100.0 C [facility] Comment on above: Order Comment: Speci men Type: BLOOD SPECIMENOrdering Facility: [facility] Address: [address] [place] [address] Performed By: #### 5 7021-8 ####[facility] [id number] [place] [address] [place] Monocytes (Bld) [#/Vol] 0.61 10*3/uL Normal <0.87 [facility] Comment on above: Order Comment: Speci men Type: BLOOD SPECIMENOrdering Facility: [facility] Address: [address] [place] [address] Performed By: #### 5 7021-8 ####[facility] [id number] [place] [address] [place] Monocytes/100 WBC (Bld) 18.0 % Normal C [facility] Comment on above: Order Comment: Speci men Type: BLOOD SPECIMENOrdering Facility: [facility] Address: [address] [place] [address] Performed By: #### 5 7021-8 ####[facility] [id number] [place] [address] [place] Neutrophils (Bld) [#/Vol] 2.03 10*3/uL Normal 1.45-7.50 [facility] Comment on above: Order Comment: Speci men Type: BLOOD SPECIMENOrdering Facility: [facility] Address: [address] [place] [address] Performed By: #### 5 7021-8 ####[facility] [id number] [place] [address] [place] Neutrophils/100 WBC (Bld) 60.0 % Normal [facility] Comment on above: Order Comment: Speci men Type: BLOOD SPECIMENOrdering Facility: [facility] Address: [address] [place] [address] Performed By: #### 5 7021-8 ####[facility] [id number] [place] [address] [place] Nucleated RBC (Bld) [#/Vol] 10*3/uL Normal <0.01 [facility] Comment on above: Order Comment: Speci men Type: BLOOD SPECIMENOrdering Facility: [facility] Address: [address] [place] [address] Performed By: #### 5 7021-8 ####[facility] [id number] [place] [address] [place] Nucleated RBC/100 WBC (Bld) [Ratio] 0.0 /100 WBC Normal [facility] Comment on above: Order Comment: Speci men Type: BLOOD SPECIMENOrdering Facility: [facility] Address: [address] [place] [address] Performed By: #### 5 7021-8 ####[facility] [id number] [place] [address] [place] Platelet mean volume (Bld) [Entitic vol] 10.2 fL Normal 9.0-12.7 [facility] Comment on above: Order Comment: Speci men Type: BLOOD SPECIMENOrdering Facility: [facility] Address: [address] [place] [address] Performed By: #### 5 7021-8 ####[facility] [id number] [place] [address] [place] Platelets (Bld) [#/Vol] 121 10*3/uL Low 150-400 [facility] Comment on above: Order Comment: Speci men Type: BLOOD SPECIMENOrdering Facility: [facility] Address: [address] [place] [address] Performed By: #### 5 7021-8 ####[facility] CENTERNCLIA [id number] [place] [id number] [place] RBC (Bld) [#/Vol] 3.13 10*6/uL Low 4.20-6.00 [facility] Comment on above: Order Comment: Speci men Type: BLOOD SPECIMENOrdering Facility: [facility] Address: [address] [place] [address] Performed By: #### 5 7021-8 ####[facility] CENTERNCLIA [id number] [place] [id number] [place] WBC (Bld) [#/Vol] 3.38 10*3/uL Low 3.70-11.00 [facility] Comment on above: Order Comment: Speci men Type: BLOOD SPECIMENOrdering Facility: [facility] Address: [address] [place] [address] Performed By: #### 5 7021-8 ####[facility] CENTERNCLIA [id number] [place] [id number] [place] CNPNon 04-22-2025 CNPN Normal [facility] B2 Microglob SerPl-mCncon Gedt-6-Rgdifpcpdhuvh [Mass/Vol] 15.7 ug/mL High <3.1 [facility] Comment on above: Order Comment: Speci men Type: BLOOD SPECIMENOrdering Facility: [facility] Address: [address] [place] [address] Result Comment: Beta -2 Microglobulin test is performed using the [employer] immunoturbidimetric method. Results obtained with different methods or kits cannot be used interchangeably. Performed By: #### 2 885-2, 1951-09 ####[facility] LABCLIA [id number] [place] [address] [place] CBC W Auto Differential pane l (Bld)on 03-18-2025 Basophils (Bld) [#/Vol] 0.04 10*3/uL Normal <0.11 [facility] Comment on above: Order Comment: Speci men Type: BLOOD SPECIMENOrdering Facility: [facility] Address: [address] [place] [address] Performed By: #### 5 7021-8 ####[facility] BEACHESWKSLIA [id number] [place] [address] [place] Basophils/100 WBC (Bld) 1.1 % Normal [facility] Comment on above: Order Comment: Speci men Type: BLOOD SPECIMENOrdering Facility: [facility] Address: [address] [place] [address] Performed By: #### 5 7021-8 ####[facility] [id number] [place] [address] [place] Differential cell count method Nom (Bld) Auto Normal [facility] Comment on above: Order Comment: Speci men Type: BLOOD SPECIMENOrdering Facility: [facility] Address: [address] [place] [address] Performed By: #### 5 7021-8 ####[facility] [id number] [place] [address] [place] Eosinophils (Bld) [#/Vol] 0.13 10*3/uL Normal <0.46 [facility] Comment on above: Order Comment: Speci men Type: BLOOD SPECIMENOrdering Facility: [facility] Address: [address] [place] [address] Performed By: #### 5 7021-8 ####[facility] [id number] [place] [address] [place] Eosinophils/100 WBC (Bld) 3.5 % Normal [facility] Comment on above: Order Comment: Speci men Type: BLOOD SPECIMENOrdering Facility: [facility] Address: [address] [place] [address] Performed By: #### 5 7021-8 ####[facility] MANJULASANTA ANASARAHI [id number] [place] [address] [place] Erythrocyte distribution width (RBC) [Ratio] 14.5 % Normal 11.5-15.0 [facility] Comment on above: Order Comment: Speci men Type: BLOOD SPECIMENOrdering Facility: [facility] Address: [address] [place] [address] Performed By: #### 5 7021-8 ####[facility] APOPKADinorah [id number] [place] [address] [place] Hematocrit (Bld) [Volume fraction] 32.6 % Low 39.0-51.0 [facility] Comment on above: Order Comment: Speci men Type: BLOOD SPECIMENOrdering Facility: [facility] Address: [address] [place] [address] Performed By: #### 5 7021-8 ####[facility] HOSPITALLIA [id number] [place] [address] [place] Hemoglobin (Bld) [Mass/Vol] 10.8 g/dL Low 13.0-17.0 [facility] Comment on above: Order Comment: Speci men Type: BLOOD SPECIMENOrdering Facility: [facility] Address: [address] [place] [address] Performed By: #### 5 7021-8 ####[facility] CENTERNCLIA [id number] [place] [address] [place] Immature granulocytes (Bld) [#/Vol] 10*3/uL Normal <0.10 [facility] Comment on above: Order Comment: Speci men Type: BLOOD SPECIMENOrdering Facility: [facility] Address: [address] [place] [address] Performed By: #### 5 7021-8 ####[facility] MANJULASANTA ANASARAHI [id number] [place] [address] [place] Immature granulocytes/100 WBC (Bld) 0.5 % Normal [facility] Comment on above: Order Comment: Speci men Type: BLOOD SPECIMENOrdering Facility: [facility] Address: [address] [place] [address] Performed By: #### 5 7021-8 ####[facility] [id number] [place] [address] [place] Lymphocytes (Bld) [#/Vol] 0.43 10*3/uL Low 1.00-4.00 [facility] Comment on above: Order Comment: Speci men Type: BLOOD SPECIMENOrdering Facility: [facility] Address: [address] [place] [address] Performed By: #### 5 7021-8 ####[facility] [id number] [place] [address] [place] Lymphocytes/100 WBC (Bld) 11.7 % Normal [facility] Comment on above: Order Comment: Speci men Type: BLOOD SPECIMENOrdering Facility: [facility] Address: [address] [place] [address] Performed By: #### 5 7021-8 ####[facility] [id number] [place] [address] [place] MCH (RBC) [Entitic mass] 34.7 pg High 26.0-34.0 [facility] Comment on above: Order Comment: Speci men Type: BLOOD SPECIMENOrdering Facility: [facility] Address: [address] [place] [address] Performed By: #### 5 7021-8 ####[facility] CENTERNCLIA [id number] [place] [address] [place] MCHC (RBC) [Mass/Vol] 33.1 g/dL Normal 30.5-36.0 [facility] Comment on above: Order Comment: Speci men Type: BLOOD SPECIMENOrdering Facility: [facility] Address: [address] [place] [address] Performed By: #### 5 7021-8 ####[facility]ENTERNC[facility] [id number] [place] [address] [place] MCV (RBC) [Entitic vol] 104.8 fL High 80.0-100.0 C [facility] Comment on above: Order Comment: Speci men Type: BLOOD SPECIMENOrdering Facility: [facility] Address: [address] [place] [address] Performed By: #### 5 7021-8 ####[facility] [id number] [place] [address] [place] Monocytes (Bld) [#/Vol] 0.57 10*3/uL Normal <0.87 [facility] Comment on above: Order Comment: Speci men Type: BLOOD SPECIMENOrdering Facility: [facility] Address: [address] [place] [address] Performed By: #### 5 7021-8 ####[facility] [id number] [place] [address] [place] Monocytes/100 WBC (Bld) 15.5 % Normal C [facility] Comment on above: Order Comment: Speci men Type: BLOOD SPECIMENOrdering Facility: [facility] Address: [address] [place] [address] Performed By: #### 5 7021-8 ####[facility] [id number] [place] [address] [place] Neutrophils (Bld) [#/Vol] 2.49 10*3/uL Normal 1.45-7.50 [facility] Comment on above: Order Comment: Speci men Type: BLOOD SPECIMENOrdering Facility: [facility] Address: [address] [place] [address] Performed By: #### 5 7021-8 ####[facility] MANJULAINDIANA UN[facility] HOSPITALLIA [id number] [place] [address] [place] Neutrophils/100 WBC (Bld) 67.7 % Normal [facility] Comment on above: Order Comment: Speci men Type: BLOOD SPECIMENOrdering Facility: [facility] Address: [address] [place] [address] Performed By: #### 5 7021-8 ####[facility] [id number] [place] [address] [place] Nucleated RBC (Bld) [#/Vol] 10*3/uL Normal <0.01 [facility] Comment on above: Order Comment: Speci men Type: BLOOD SPECIMENOrdering Facility: [facility] Address: [address] [place] [address] Performed By: #### 5 7021-8 ####[facility] [id number] [place] [address] [place] Nucleated RBC/100 WBC (Bld) [Ratio] 0.0 /100 WBC Normal [facility] Comment on above: Order Comment: Speci men Type: BLOOD SPECIMENOrdering Facility: [facility] Address: [address] [place] [address] Performed By: #### 5 7021-8 ####[facility] HOSPITALLIA [id number] [place] [address] [place] Platelet mean volume (Bld) [Entitic vol] 10.2 fL Normal 9.0-12.7 [facility] Comment on above: Order Comment: Speci men Type: BLOOD SPECIMENOrdering Facility: [facility] Address: [address] [place] [address] Performed By: #### 5 7021-8 ####[facility]ENTERNCLIA [id number] [place] [address] [place] Platelets (Bld) [#/Vol] 152 10*3/uL Normal 150-400 [facility] Comment on above: Order Comment: Speci men Type: BLOOD SPECIMENOrdering Facility: [facility] Address: [address] [place] [address] Performed By: #### 5 7021-8 ####[facility] AMNJULAToniNCLIA [id number] [place] [address] [place] RBC (Bld) [#/Vol] 3.11 10*6/uL Low 4.20-6.00 [facility] Comment on above: Order Comment: Speci men Type: BLOOD SPECIMENOrdering Facility: [facility] Address: [address] [place] [address] Performed By: #### 5 7021-8 ####[facility]ENTERNCLIA [id number] [place] [address] [place] WBC (Bld) [#/Vol] 3.68 10*3/uL Low 3.70-11.00 [facility] Comment on above: Order Comment: Speci men Type: BLOOD SPECIMENOrdering Facility: [facility] Address: [address] [place] [address] Performed By: #### 5 7021-8 ####[facility]ENTERNCLIA [id number] [place] [id number] [place] Comprehensive metabolic 2000 panelon 03-18-2025 Albumin [Mass/Vol] 4.4 g/dL Normal 3.9-4.9 [facility] Comment on above: Order Comment: Speci men Type: BLOOD SPECIMENOrdering Facility: [facility] Address: [address] [place] [address] Performed By: #### 2 4323-8, 2532-0 ####[facility] CENTERNCLIA [id number] [place] [address] [place] ALP [Catalytic activity/Vol] 98 U/L Normal 38-113 [facility] Comment on above: Order Comment: Speci men Type: BLOOD SPECIMENOrdering Facility: [facility] Address: [address] [place] [address] Performed By: #### 2 4323-8, 2-0 ####[facility] BEACHESWFRANCISCOLIA [id number] [place] [address] [place] ALT [Catalytic activity/Vol] 15 U/L Normal 10-54 [facility] Comment on above: Order Comment: Speci men Type: BLOOD SPECIMENOrdering Facility: [facility] Address: [address] [place] [address] Performed By: #### 2 4323-8, 2-0 ####[facility] CENTERSARAHI [id number] [place] [address] [place] Anion gap [Moles/Vol] 16 mmol/L High 8-15 [facility] Comment on above: Order Comment: Speci men Type: BLOOD SPECIMENOrdering Facility: [facility] Address: [address] [place] [address] Performed By: #### 2 4323-8, 2532-0 ####[facility] CENTERSARAHI [id number] [place] [address] [place] AST [Catalytic activity/Vol] 17 U/L Normal 14-40 [facility] Comment on above: Order Comment: Speci men Type: BLOOD SPECIMENOrdering Facility: [facility] Address: [address] [place] [address] Performed By: #### 2 4323-8, 2532-0 ####[facility] PORT CHARLOTTESUMINCLIDinorah [id number] [place] [address] [place] Bilirubin [Mass/Vol] 0.5 mg/dL Normal 0.2-1.3 [facility] Comment on above: Order Comment: Speci men Type: BLOOD SPECIMENOrdering Facility: [facility] Address: [address] [place] [address] Performed By: #### 2 4323-8, 2531-0 ####[facility] [id number] [place] [address] [place] Calcium [Mass/Vol] 9.9 mg/dL Normal 8.5-10.2 [facility] Comment on above: Order Comment: Speci men Type: BLOOD SPECIMENOrdering Facility: [facility] Address: [address] [place] [address] Performed By: #### 2 4323-8, 2531-0 ####[facility] [id number] [place] [address] [place] Chloride [Moles/Vol] 98 mmol/L Normal 98-107 [facility] Comment on above: Order Comment: Speci men Type: BLOOD SPECIMENOrdering Facility: [facility] Address: [address] [place] [address] Performed By: #### 2 4323-8, 2531-0 ####[facility] [id number] [place] [address] [place] CO2 [Moles/Vol] 27 mmol/L Normal 22-30 [facility] Comment on above: Order Comment: Speci men Type: BLOOD SPECIMENOrdering Facility: [facility] Address: [address] [place] [address] Performed By: #### 2 4323-8, 2531-0 ####[facility] [id number] [place] [address] [place] Creatinine [Mass/Vol] 4.13 mg/dL High 0.73-1.22 [facility] Comment on above: Order Comment: Speci men Type: BLOOD SPECIMENOrdering Facility: [facility] Address: [address] [place], [place] [address] Performed By: #### 2 4323-8, 2532-0 ####[facility] CENTERNCA [id number] [place] [address] [place] Creatinine and Glomerular filtration rate.predicted panel (S/P/Bld) 15 mL/min/1.73m??? Low >=60 [facility] Comment on above: Order Comment: Jasmina tiffany Type: BLOOD SPECIMENOrdering Facility: [facility] Address: [address] [place] [address] Result Comment: Radha mated Glomerular Filtration Rate (eGFR) is calculated using the 2020 CKD-EPI creatinine equation. This equation utilizes serum creatinine, sex, and age as parameters. The creatinine assay has traceable calibration to isotope dilution-mass spectrometry. Refer to KDIGO guidelines for clinical interpretation. In patients with unstable renal function, e.g. those with acute kidney injury, the eGFR may not accurately reflect actual GFR. Performed By: #### 2 4323-8, 2532-0 ####[facility] CENTERNCLIA [id number] [place] [address] [place] Glucose [Mass/Vol] 134 mg/dL High 74-99 [facility] Comment on above: Order Comment: Jasmina allen Type: BLOOD SPECIMENOrdering Facility: [facility] Address: [address] [place] [address] Result Comment: The [place] Diabetes Association (ADA) provides guidance for cutoff values for fasting glucose and random glucose. The ADA defines fasting as no caloric intake for at least 8 hours. Fasting plasma glucose results between 100 to 125 mg/dL indicate increased risk for diabetes (prediabetes).Fasting plasma glucose results greater than or equal to 126 mg/dL meet the criteria for diagnosis of diabetes. In the absence of unequivocal hyperglycemia, results should be confirmed by repeat testing. In a patient with classic symptoms of hyperglycemia or hyperglycemic crisis, random plasma glucose results greater than or equal to 200 mg/dL meet the criteria for diagnosis of diabetes.Reference: Standards of Medical Care in Diabetes 2016, [place] [employer] Association. Diabetes Care. 2016.39(Suppl 1). Performed By: #### 2 4323-8, 2531-0 ####[facility] MARIA ESTHER RADHASARAHI [id number] [place] [address] [place] Potassium [Moles/Vol] 3.7 mmol/L Normal 3.7-5.1 [facility] Comment on above: Order Comment: Speci men Type: BLOOD SPECIMENOrdering Facility: [facility] Address: [address] [place] [address] Performed By: #### 2 4323-8, 2531-0 ####[facility] CENTERSARAHI [id number] [place] [address] [place] Protein [Mass/Vol] 6.1 g/dL Low 6.3-8.0 [facility] Comment on above: Order Comment: Speci men Type: BLOOD SPECIMENOrdering Facility: [facility] Address: [address] [place] [address] Performed By: #### 2 4323-8, 2531-0 ####[facility] CENTERFRANCISCODinorah [id number] [place] [address] [place] Sodium [Moles/Vol] 141 mmol/L Normal 136-144 [facility] Comment on above: Order Comment: Speci men Type: BLOOD SPECIMENOrdering Facility: [facility] Address: [address] [place] [address] Performed By: #### 2 4323-8, 2531-0 ####[facility] CENTERSARAHI [id number] [place] [address] [place] Urea nitrogen [Mass/Vol] 38 mg/dL High 9-24 [facility] Comment on above: Order Comment: Speci men Type: BLOOD SPECIMENOrdering Facility: [facility] Address: [address] [place] [address] Performed By: #### 2 4323-8, 2-0 ####[facility] HOSPITALPASCUAL [id number] [place] [id number] [place] IMMUNOFIXATION SCREEN, SERUM on 03-18-2025 MPA RESULT No M protein is identified. Normal No M protein is identified. [facility] Comment on above: Order Comment: Speci men Type: BLOOD SPECIMENOrdering Facility: [facility] Address: [address] [place] [address] Performed By: #### I FESC ####[facility] LABCLIA [id number] [address] OF [place] STAFF REVIEW (MPA) Reviewed by Devora Cifuentes M.D., Ph.D Normal [facility] Comment on above: Order Comment: Speci men Type: BLOOD SPECIMENOrdering Facility: [facility] Address: [address] [place] [address] Performed By: #### I FESC ####[facility] LABIA [id number] [address], [facility] [place] IMMUNOGLOBULINS,IGG,IGA,IGMo n 03-18-2025 IgA [Mass/Vol] 16 mg/dL Low 70-400 [facility] Comment on above: Order Comment: Speci men Type: BLOOD SPECIMENOrdering Facility: [facility] Address: [address] [place] [address] Performed By: #### S ERIMM ####[facility] LABCLIA [id number] [address] [place] [address] [place] IgG [Mass/Vol] 262 mg/dL Low 700-1600 [facility] Comment on above: Order Comment: Speci men Type: BLOOD SPECIMENOrdering Facility: [facility] Address: [address] [place] [address] Performed By: #### S ERIMM ####[facility] LABIA [id number] [place] [id number] [place] IgM [Mass/Vol] 31 mg/dL Low 40-230 [facility] Comment on above: Order Comment: Speci men Type: BLOOD SPECIMENOrdering Facility: [facility] Address: [address] [place] [address] Performed By: #### S ERIMM ####[facility] LABCLIA [id number] [place] [address] [place] KAPPA/EMERY,FREE,SERon 2024 Immunoglobulin light chains.kappa.free (S) [Mass/Vol] 24.3 mg/L High 3.3-19.4 [facility] Comment on above: Order Comment: Speci men Type: BLOOD SPECIMENOrdering Facility: [facility] Address: [address] [place] [address] Result Comment: Rare ly, increased serum free light chains levels may not be detected or accurately quantified due to prozone phenomenon or in high viscosity samples using this immunoturbidimetric assay. Correlation with other laboratory results and clinical findings is recommended.The [place] Free Light Chain was performed using the Binding Site [employer] immunoturbidimetric method. Result obtained with different assay methods or kits cannot be used interchangeably. Performed By: #### K LFRS ####[facility] LABIA [id number] [place] [address] [place] Immunoglobulin light chains.kappa/Immunoglob ulin light chains.lambda (S) [Mass ratio] 1.53 Normal 0.26-1.65 [facility] Comment on above: Order Comment: Speci men Type: BLOOD SPECIMENOrdering Facility: [facility] Address: [address] [place] [address] Performed By: #### K LFRS ####[facility] LABIA [id number] [place] [address] [place] Immunoglobulin light chains.lambda.free [Mass/Vol] 15.9 mg/L Normal 5.7-26.3 [facility] Comment on above: Order Comment: Speci men Type: BLOOD SPECIMENOrdering Facility: [facility] Address: [address] [place] [address] Result Comment: Rare ly, increased serum free light chains levels may not be detected or accurately quantified due to prozone phenomenon or in high viscosity samples using this immunoturbidimetric assay. Correlation with other laboratory results and clinical findings is recommended.The [place] Free Light Chain was performed using the Binding Site Optilite immunoturbidimetric method. Result obtained with different assay methods or kits cannot be used interchangeably. Performed By: #### K LFRS ####[facility] LABCLIA [id number] [place] [address] [place] LDH SerPl-cCncon 03-18-2025 LDH [Catalytic activity/Vol] 224 U/L Normal 135-225 [facility] Comment on above: Order Comment: Speci men Type: BLOOD SPECIMENOrdering Facility: [facility] Address: [address] [place] [address] Performed By: #### 2 4323-8, 2532-0 ####[facility] [id number] [place] [address] [place] PROTEIN ELECTROPHORESIS SERU M (P)on 03-18-2025 Albumin [Mass/Vol] 4.21 g/dL Normal 3.43-5.41 [facility] Comment on above: Order Comment: Speci men Type: BLOOD SPECIMENOrdering Facility: [facility] Address: [address] [place] [address] Performed By: #### L [id number] ####[facility] LABIA [id number] [place] [address] [place] Alpha 1 globulin Elph [Mass/Vol] 0.30 g/dL Normal 0.18-0.43 [facility] Comment on above: Order Comment: Speci men Type: BLOOD SPECIMENOrdering Facility: [facility] Address: [address] [place] [address] Performed By: #### L [id number] ####[facility] LABCLIA [id number] [place] [address] [place] Alpha 2 globulin Elph [Mass/Vol] 0.58 g/dL Normal 0.42-0.98 [facility] Comment on above: Order Comment: Speci men Type: BLOOD SPECIMENOrdering Facility: [facility] Address: [address] [place] [address] Performed By: #### L [id number] ####[facility]IA [id number] [place] [address] [place] Beta globulin Elph [Mass/Vol] 0.49 g/dL Low 0.61-1.17 [facility] Comment on above: Order Comment: Speci men Type: BLOOD SPECIMENOrdering Facility: [facility] Address: [address] [place] [address] Performed By: #### L [id number] ####[facility] LABIA [id number] [address] STATES [facility] Gamma globulin Elph [Mass/Vol] 0.23 g/dL Low 0.53-1.51 [facility] Comment on above: Order Comment: Speci men Type: BLOOD SPECIMENOrdering Facility: [facility] Address: [address] [place] [address] Performed By: #### L [id number] ####[facility] LABIA [id number] [address] [place] INTERPRETATION COMMENT FOR PROTEIN ELECTROPHORESIS Hypogammaglobulinemia is present, which can be seen in the setting of monoclonal gammopathy. If clinically indicated, monoclonal protein analysis and serum free light chain analysis are suggested to evaluate further for monoclonal gammopathy. Normal [facility] Comment on above: Order Comment: Speci men Type: BLOOD SPECIMENOrdering Facility: [facility] Address: [address] [place] [address] Performed By: #### L [id number] ####[facility]IA [id number] [place] [address] [place] M-PROTEIN LOCATION Normal [facility] Comment on above: Order Comment: Speci men Type: BLOOD SPECIMENOrdering Facility: [facility] Address: [address] [place] [address] Result Comment: Not Applicable. Performed By: #### L [id number] ####[facility] LABCLIA [id number] [place] [address] [place] Protein Fractions [Interp] No definitive M protein is identified on protein electrophoresis. Normal No definitive M protein is identified on protein electrophores is. [facility] Comment on above: Order Comment: Speci men Type: BLOOD SPECIMENOrdering Facility: [facility] Address: [address] [place] [address] Performed By: #### L [id number] ####[facility] LABCLIA [id number] [place] [address] [place] Protein.monoclonal Elph [Mass/Vol] 0.00 g/dL Normal <=0.00 [facility] Comment on above: Order Comment: Speci men Type: BLOOD SPECIMENOrdering Facility: [facility] Address: [address] [place] [address] Performed By: #### L [id number] ####[facility] LABCLIA [id number] [place] [address] [place] SPE STAFF REVIEW Reviewed by Devora Cifuentes M.D., Ph.D Normal [facility] Comment on above: Order Comment: Speci men Type: BLOOD SPECIMENOrdering Facility: [facility] Address: [address] [place] [address] Performed By: #### L [id number] ####[facility] LABCLIA [id number] [place] [address] [place] Prot SerPl-mCncon 03-18-2025 Protein [Mass/Vol] 5.8 g/dL Low 6.3-8.0 [facility] Comment on above: Order Comment: Speci men Type: BLOOD SPECIMENOrdering Facility: [facility] Address: [address] [place] [address] Performed By: #### 2 885-2, 1949-09 ####[facility]ITAL[facility] [id number] [place] [address] [place] CNOVSPon 02-25-2025 CNOVSP Normal [facility] B2 Microglob SerPl-mCncon Ypdo-0-Uoagscvqifxdk [Mass/Vol] 15.1 ug/mL High <3.1 [facility] Comment on above: Order Comment: Speci men Type: BLOOD SPECIMENOrdering Facility: [facility] Address: [address] [place] [address] Result Comment: Beta -2 Microglobulin test is performed using the [employer] immunoturbidimetric method. Results obtained with different methods or kits cannot be used interchangeably. Performed By: #### 2 885-2, 1949-09 ####[facility] LABCLIA [id number] [place] [address] [place] CBC W Auto Differential pane l (Bld)on 02-18-2025 Basophils (Bld) [#/Vol] 0.07 10*3/uL Normal <0.11 [facility] Comment on above: Order Comment: Speci men Type: BLOOD SPECIMENOrdering Facility: [facility] Address: [address] [place] [address] Performed By: #### 5 7021-8 ####[facility] BEACHESWFRANCISCOLIA [id number] [place] [address] [place] Basophils/100 WBC (Bld) 1.9 % Normal [facility] Comment on above: Order Comment: Speci men Type: BLOOD SPECIMENOrdering Facility: [facility] Address: [address] [place] [address] Performed By: #### 5 7021-8 ####[facility] CENTERFRANCISCOLIA [id number] [place] [address] [place] Differential cell count method Nom (Bld) Auto Normal [facility] Comment on above: Order Comment: Speci men Type: BLOOD SPECIMENOrdering Facility: [facility] Address: [address] [place] [address] Performed By: #### 5 7021-8 ####[facility] CENTERNCBEAVER VAL[facility] [id number] [place] [address] [place] Eosinophils (Bld) [#/Vol] 0.12 10*3/uL Normal <0.46 [facility] Comment on above: Order Comment: Speci men Type: BLOOD SPECIMENOrdering Facility: [facility] Address: [address] [place] [address] Performed By: #### 5 7021-8 ####[facility] [id number] [place] [address] [place] Eosinophils/100 WBC (Bld) 3.3 % Normal [facility] Comment on above: Order Comment: Speci men Type: BLOOD SPECIMENOrdering Facility: [facility] Address: [address] [place] [address] Performed By: #### 5 7021-8 ####[facility] [id number] [place] [address] [place] Erythrocyte distribution width (RBC) [Ratio] 14.6 % Normal 11.5-15.0 [facility] Comment on above: Order Comment: Speci men Type: BLOOD SPECIMENOrdering Facility: [facility] Address: [address] [place] [address] Performed By: #### 5 7021-8 ####[facility] [id number] [place] [address] [place] Hematocrit (Bld) [Volume fraction] 31.7 % Low 39.0-51.0 [facility] Comment on above: Order Comment: Speci men Type: BLOOD SPECIMENOrdering Facility: [facility] Address: [address] [place] [address] Performed By: #### 5 7021-8 ####[facility] MANJULASANTA ANAFRANCISCOBEAVER VALLEY HOSPITAL [id number] [place] [address] [place] Hemoglobin (Bld) [Mass/Vol] 10.4 g/dL Low 13.0-17.0 [facility] Comment on above: Order Comment: Speci men Type: BLOOD SPECIMENOrdering Facility: [facility] Address: [address] [place] [address] Performed By: #### 5 7021-8 ####[facility] [id number] [place] [address] [place] Immature granulocytes (Bld) [#/Vol] 10*3/uL Normal <0.10 [facility] Comment on above: Order Comment: Speci men Type: BLOOD SPECIMENOrdering Facility: [facility] Address: [address] [place] [address] Performed By: #### 5 7021-8 ####[facility] [id number] [place] [address] [place] Immature granulocytes/100 WBC (Bld) 0.6 % Normal [facility] Comment on above: Order Comment: Speci men Type: BLOOD SPECIMENOrdering Facility: [facility] Address: [address] [place] [address] Performed By: #### 5 7021-8 ####[facility] CENTERNCLIA [id number] [place] [address] [place] Lymphocytes (Bld) [#/Vol] 0.43 10*3/uL Low 1.00-4.00 [facility] Comment on above: Order Comment: Speci men Type: BLOOD SPECIMENOrdering Facility: [facility] Address: [address] [place] [address] Performed By: #### 5 7021-8 ####[facility] CENTERNCPASCUALA [id number] [place] [address] [place] Lymphocytes/100 WBC (Bld) 11.8 % Normal [facility] Comment on above: Order Comment: Speci men Type: BLOOD SPECIMENOrdering Facility: [facility] Address: [address] [place] [address] Performed By: #### 5 7021-8 ####[facility] CENTERDAISY [id number] [place] [address] [place] MCH (RBC) [Entitic mass] 34.8 pg High 26.0-34.0 [facility] Comment on above: Order Comment: Speci men Type: BLOOD SPECIMENOrdering Facility: [facility] Address: [address] [place] [address] Performed By: #### 5 7021-8 ####[facility] CENTERFRANCISCOBEAVER VALLEY [facility]PITAL [id number] [place] [address] [place] MCHC (RBC) [Mass/Vol] 32.8 g/dL Normal 30.5-36.0 [facility] Comment on above: Order Comment: Speci men Type: BLOOD SPECIMENOrdering Facility: [facility] Address: [address] [place] [address] Performed By: #### 5 7021-8 ####[facility] CENTERFRANCISCOLIDinorah [id number] [place] [address] [place] MCV (RBC) [Entitic vol] 106.0 fL High 80.0-100.0 [facility] Comment on above: Order Comment: Speci men Type: BLOOD SPECIMENOrdering Facility: [facility] Address: [address] [place] [address] Performed By: #### 5 7021-8 ####[facility] CENTERNCLI [id number] [place] [address] [place] Monocytes (Bld) [#/Vol] 0.60 10*3/uL Normal <0.87 [facility] Comment on above: Order Comment: Speci men Type: BLOOD SPECIMENOrdering Facility: [facility] Address: [address] [place] [address] Performed By: #### 5 7021-8 ####[facility] [id number] [place] [address] [place] Monocytes/100 WBC (Bld) 16.5 % Normal [facility] Comment on above: Order Comment: Speci men Type: BLOOD SPECIMENOrdering Facility: [facility] Address: [address] [place] [address] Performed By: #### 5 7021-8 ####[facility] [id number] [place] [address] [place] Neutrophils (Bld) [#/Vol] 2.39 10*3/uL Normal 1.45-7.50 [facility] Comment on above: Order Comment: Speci men Type: BLOOD SPECIMENOrdering Facility: [facility] Address: [address] [place] [address] Performed By: #### 5 7021-8 ####[facility] [id number] [place] [address] [place] Neutrophils/100 WBC (Bld) 65.9 % Normal [facility] Comment on above: Order Comment: Speci men Type: BLOOD SPECIMENOrdering Facility: [facility] Address: [address] [place] [address] Performed By: #### 5 7021-8 ####[facility] [id number] [place] [address] [place] Nucleated RBC (Bld) [#/Vol] 10*3/uL Normal <0.01 [facility] Comment on above: Order Comment: Speci men Type: BLOOD SPECIMENOrdering Facility: [facility] Address: [address] [place] [address] Performed By: #### 5 7021-8 ####[facility] BELLA [id number] [place] [address] [place] Nucleated RBC/100 WBC (Bld) [Ratio] 0.0 /100 WBC Normal [facility] Comment on above: Order Comment: Speci men Type: BLOOD SPECIMENOrdering Facility: [facility] Address: [address] [place] [address] Performed By: #### 5 7021-8 ####[facility]ERN[facility]ELINA [id number] [place] [address] [place] Platelet mean volume (Bld) [Entitic vol] 10.3 fL Normal 9.0-12.7 [facility] Comment on above: Order Comment: Speci men Type: BLOOD SPECIMENOrdering Facility: [facility] Address: [address] [place] [address] Performed By: #### 5 7021-8 ####[facility] CENTERFRANCISCOA [id number] [place] [address] [place] Platelets (Bld) [#/Vol] 154 10*3/uL Normal 150-400 [facility] Comment on above: Order Comment: Speci men Type: BLOOD SPECIMENOrdering Facility: [facility] Address: [address] [place] [address] Performed By: #### 5 7021-8 ####[facility]ITALLIA [id number] [place] [address] [place] RBC (Bld) [#/Vol] 2.99 10*6/uL Low 4.20-6.00 [facility] Comment on above: Order Comment: Speci men Type: BLOOD SPECIMENOrdering Facility: [facility] Address: [address] [place] [address] Performed By: #### 5 7021-8 ####[facility] MILLTOWNCLIA [id number] [place] [address] [place] WBC (Bld) [#/Vol] 3.63 10*3/uL Low 3.70-11.00 [facility] Comment on above: Order Comment: Speci men Type: BLOOD SPECIMENOrdering Facility: [facility] Address: [address] [place] [address] Performed By: #### 5 7021-8 ####[facility] MILLTOWNCLIA [id number] [place] [address] [place] Comprehensive metabolic 2000 panelon 02-18-2025 Albumin [Mass/Vol] 4.4 g/dL Normal 3.9-4.9 [facility] Comment on above: Order Comment: Speci men Type: BLOOD SPECIMENOrdering Facility: [facility] Address: [address] [place] [address] Performed By: #### 2 532-0, 54146-7 ####[facility] MILLWNCLIA [id number] [place] [address] [place] ALP [Catalytic activity/Vol] 121 U/L High 38-113 [facility] Comment on above: Order Comment: Speci men Type: BLOOD SPECIMENOrdering Facility: [facility] Address: [address] [place] [address] Performed By: #### 2 532-0, 72439-8 ####[facility] MILLTOWNCLIA [id number] [place] [address] [place] ALT [Catalytic activity/Vol] 12 U/L Normal 10-54 [facility] Comment on above: Order Comment: Speci men Type: BLOOD SPECIMENOrdering Facility: [facility] Address: [address] [place] [address] Performed By: #### 2 532-0, 52497-9 ####[facility] MILLTOWNCLIA [id number] [place] [address] [place] Anion gap [Moles/Vol] 15 mmol/L Normal 8-15 [facility] Comment on above: Order Comment: Speci men Type: BLOOD SPECIMENOrdering Facility: [facility] Address: [address] [place] [address] Performed By: #### 2 532-0, 19040-0 ####[facility] BEACHESWFRANCISCOLIA [id number] [place] [address] [place] AST [Catalytic activity/Vol] 18 U/L Normal 14-40 [facility] Comment on above: Order Comment: Speci men Type: BLOOD SPECIMENOrdering Facility: [facility] Address: [address] [place] [address] Performed By: #### 2 532-0, 30396-8 ####[facility]ENTERFRANCISCOLIA [id number] [place] [address] [place] Bilirubin [Mass/Vol] 0.4 mg/dL Normal 0.2-1.3 [facility] Comment on above: Order Comment: Speci men Type: BLOOD SPECIMENOrdering Facility: [facility] Address: [address] [place] [address] Performed By: #### 2 532-0, 06155-9 ####[facility] CENTERFRANCISCOLIA [id number] [place] [address] [place] Calcium [Mass/Vol] 9.8 mg/dL Normal 8.5-10.2 [facility] Comment on above: Order Comment: Speci men Type: BLOOD SPECIMENOrdering Facility: [facility] Address: [address] [place] [address] Performed By: #### 2 532-0, 35653-3 ####[facility] CENTERNCLIA [id number] [place] [address] [place] Chloride [Moles/Vol] 98 mmol/L Normal 98-107 [facility] Comment on above: Order Comment: Speci men Type: BLOOD SPECIMENOrdering Facility: [facility] Address: [address] [place] [address] Performed By: #### 2 532-0, 96328-3 ####[facility] [id number] [place] [address] [place] CO2 [Moles/Vol] 26 mmol/L Normal 22-30 [facility] Comment on above: Order Comment: Speci men Type: BLOOD SPECIMENOrdering Facility: [facility] Address: [address] [place] [address] Performed By: #### 2 532-0, 26991-5 ####[facility] [id number] [place] [address] [place] Creatinine [Mass/Vol] 4.59 mg/dL High 0.73-1.22 [facility] Comment on above: Order Comment: Speci men Type: BLOOD SPECIMENOrdering Facility: [facility] Address: [address] [place] [address] Performed By: #### 2 532-0, 86057-2 ####[facility] [id number] [place] [address] [place] Creatinine and Glomerular filtration rate.predicted panel (S/P/Bld) 13 mL/min/1.73m??? Low >=60 [facility] Comment on above: Order Comment: Speci men Type: BLOOD SPECIMENOrdering Facility: [facility] Address: [address] [place] [address] Result Comment: Radha mated Glomerular Filtration Rate (eGFR) is calculated using the 2020 CKD-EPI creatinine equation. This equation utilizes serum creatinine, sex, and age as parameters. The creatinine assay has traceable calibration to isotope dilution-mass spectrometry. Refer to KDIGO guidelines for clinical interpretation. In patients with unstable renal function, e.g. those with acute kidney injury, the eGFR may not accurately reflect actual GFR. Performed By: #### 2 532-0, 00724-8 ####[facility]ENTERNCCARMELINA [id number] [place] [address] [place] Glucose [Mass/Vol] 135 mg/dL High 74-99 [facility] Comment on above: Order Comment: Speci men Type: BLOOD SPECIMENOrdering Facility: [facility] Address: [address] [place] [address] Result Comment: The [place] Diabetes Association (ADA) provides guidance for cutoff values for fasting glucose and random glucose. The ADA defines fasting as no caloric intake for at least 8 hours. Fasting plasma glucose results between 100 to 125 mg/dL indicate increased risk for diabetes (prediabetes).Fasting plasma glucose results greater than or equal to 126 mg/dL meet the criteria for diagnosis of diabetes. In the absence of unequivocal hyperglycemia, results should be confirmed by repeat testing. In a patient with classic symptoms of hyperglycemia or hyperglycemic crisis, random plasma glucose results greater than or equal to 200 mg/dL meet the criteria for diagnosis of diabetes.Reference: Standards of Medical Care in Diabetes 2016, [place] [employer]. Diabetes Care. 2016.39(Suppl 1). Performed By: #### 2 532-0, 90606-1 ####[facility] [id number] [place] [address] [place] Potassium [Moles/Vol] 3.7 mmol/L Normal 3.7-5.1 [facility] Comment on above: Order Comment: Zairai men Type: BLOOD SPECIMENOrdering Facility: [facility] Address: [address] [place] [address] Performed By: #### 2 532-0, 83805-1 ####[facility] [id number] [place] [address] [place] Protein [Mass/Vol] 6.2 g/dL Low 6.3-8.0 [facility] Comment on above: Order Comment: Zairai men Type: BLOOD SPECIMENOrdering Facility: [facility] Address: [address] [place] [address] Performed By: #### 2 532-0, 29566-5 ####[facility] MANJULASANTA ANANCPASCUALA [id number] [place] [address] [place] Sodium [Moles/Vol] 139 mmol/L Normal 136-144 [facility] Comment on above: Order Comment: Speci men Type: BLOOD SPECIMENOrdering Facility: [facility] Address: [address] [place] [address] Performed By: #### 2 532-0, 16203-5 ####[facility]ENTERNCBEAV[facility] [id number] [place] [address] [place] Urea nitrogen [Mass/Vol] 47 mg/dL High 9-24 [facility] Comment on above: Order Comment: Speci men Type: BLOOD SPECIMENOrdering Facility: [facility] Address: [address] [place] [address] Performed By: #### 2 532-0, 25808-3 ####[facility] CENTERNCLIA [id number] [place] [address] [place] IMMUNOFIXATION SCREEN, SERUM on 02-18-2025 INTERPRETATION (MPA) Normal [facility] Comment on above: Order Comment: Speci men Type: BLOOD SPECIMENOrdering Facility: [facility] Address: [address] [place] [address] Performed By: #### I FESC ####[facility] LABCLIA [id number] [address] [place] MPA RESULT A poorly defined reg ion of restricted mobility is present that may represent an M protein. Abnormal No M protein is identified. [facility] Comment on above: Order Comment: Speci men Type: BLOOD SPECIMENOrdering Facility: [facility] Address: [address] [place] [address] Performed By: #### I FESC ####[facility] LABCLIA [id number] [place] [address] [place] STAFF REVIEW (MPA) Reviewed by Andi Mercedes MD, Ph.D ([id number]) Normal [facility] Comment on above: Order Comment: Speci men Type: BLOOD SPECIMENOrdering Facility: [facility] Address: [address] [place] [address] Performed By: #### I FES ####[facility] LABCLIA [id number] [place] [address] [place] IMMUNOGLOBULINS,IGG,IGA,IGMo n 02-18-2025 IgA [Mass/Vol] 16 mg/dL Low 70-400 [facility] Comment on above: Order Comment: Speci men Type: BLOOD SPECIMENOrdering Facility: [facility] Address: [address] [place] [address] Performed By: #### S ERIMM ####[facility] LABIA [id number] [place] [address] [place] IgG [Mass/Vol] 273 mg/dL Low 700-1600 [facility] Comment on above: Order Comment: Speci men Type: BLOOD SPECIMENOrdering Facility: [facility] Address: [address] [place] [address] Performed By: #### S ERIMM ####[facility] LABIA [id number] [place] [address] [place] IgM [Mass/Vol] 33 mg/dL Low 40-230 [facility] Comment on above: Order Comment: Speci men Type: BLOOD SPECIMENOrdering Facility: [facility] Address: [address] [place] [address] Performed By: #### S ERIMM ####[facility] LABIA [id number] [place] [id number] [place] KAPPA/EMERY,FREE,SERon 2024 Immunoglobulin light chains.kappa.free (S) [Mass/Vol] 25.9 mg/L High 3.3-19.4 [facility] Comment on above: Order Comment: Speci men Type: BLOOD SPECIMENOrdering Facility: [facility] Address: [address] [place] [address] Result Comment: Rare ly, increased serum free light chains levels may not be detected or accurately quantified due to prozone phenomenon or in high viscosity samples using this immunoturbidimetric assay. Correlation with other laboratory results and clinical findings is recommended.The [place] Free Light Chain was performed using the Binding Site Optilite immunoturbidimetric method. Result obtained with different assay methods or kits cannot be used interchangeably. Performed By: #### K LFRS ####[facility] LABCLIA [id number] [place] [address] [place] Immunoglobulin light chains.kappa/Immunoglob ulin light chains.lambda (S) [Mass ratio] 1.69 High 0.26-1.65 [facility] Comment on above: Order Comment: Speci men Type: BLOOD SPECIMENOrdering Facility: [facility] Address: [address] [place] [address] Performed By: #### K LFRS ####[facility] LABCLIA [id number] [place] [address] [place] Immunoglobulin light chains.lambda.free [Mass/Vol] 15.3 mg/L Normal 5.7-26.3 [facility] Comment on above: Order Comment: Speci men Type: BLOOD SPECIMENOrdering Facility: [facility] Address: [address] [place] [address] Result Comment: Rare ly, increased serum free light chains levels may not be detected or accurately quantified due to prozone phenomenon or in high viscosity samples using this immunoturbidimetric assay. Correlation with other laboratory results and clinical findings is recommended.The [place] Free Light Chain was performed using the Binding Site Optilite immunoturbidimetric method. Result obtained with different assay methods or kits cannot be used interchangeably. Performed By: #### K LFRS ####[facility] LABCLIA [id number] [place] [address] [place] LDH SerPl-cCncon 02-18-2025 LDH [Catalytic activity/Vol] 234 U/L High 135-225 [facility] Comment on above: Order Comment: Speci men Type: BLOOD SPECIMENOrdering Facility: [facility] Address: [address] [place] [address] Result Comment: Hemo lysis present. The origin of the hemolysis, in vitro versus an in vivo hemolytic process, cannot be distinguished via this assay alone. In vitro hemolysis may lead to non-physiological (spurious) elevation in lactate dehydrogenase (LDH) results. Theresult should be interpreted in context of the clinical setting and other test results. Suggest reorder as clinically indicated. Performed By: #### 2 532-0, 64774-1 ####[facility] [id number] [place] [address] [place] PROTEIN ELECTROPHORESIS SERU M (P)on 02-18-2025 Albumin [Mass/Vol] 4.15 g/dL Normal 3.43-5.41 [facility] Comment on above: Order Comment: Speci men Type: BLOOD SPECIMENOrdering Facility: [facility] Address: [address] [place] [address] Performed By: #### L [id number] ####[facility] LABCLIA [id number] [place] [address] [place] Alpha 1 globulin Elph [Mass/Vol] 0.29 g/dL Normal 0.18-0.43 [facility] Comment on above: Order Comment: Speci men Type: BLOOD SPECIMENOrdering Facility: [facility] Address: [address] [place] [address] Performed By: #### L [id number] ####[facility] LABIA [id number] [place] [id number] [place] Alpha 2 globulin Elph [Mass/Vol] 0.63 g/dL Normal 0.42-0.98 [facility] Comment on above: Order Comment: Speci men Type: BLOOD SPECIMENOrdering Facility: [facility] Address: [address] [place] [address] Performed By: #### L [id number] ####[facility] [id number] [place] [address] [place] Beta globulin Elph [Mass/Vol] 0.50 g/dL Low 0.61-1.17 [facility] Comment on above: Order Comment: Speci men Type: BLOOD SPECIMENOrdering Facility: [facility] Address: [address] [place] [address] Performed By: #### L [id number] ####[facility]ITAL[facility] [id number] [place] [address] [place] Gamma globulin Elph [Mass/Vol] 0.23 g/dL Low 0.53-1.51 [facility] Comment on above: Order Comment: Speci men Type: BLOOD SPECIMENOrdering Facility: [facility] Address: [address] [place] [address] Performed By: #### L [id number] ####[facility] [id number] [address] [place] INTERPRETATION COMMENT FOR PROTEIN ELECTROPHORESIS Hypogammaglobulinemia is present, which can be seen in the setting of monoclonal gammopathy. If clinically indicated, monoclonal protein analysis and serum free light chain analysis are suggested to evaluate further for monoclonal gammopathy. Normal [facility] Comment on above: Order Comment: Speci men Type: BLOOD SPECIMENOrdering Facility: [facility] Address: [address] [place] [address] Performed By: #### L [id number] ####[facility] [id number] [address] [place] M-PROTEIN LOCATION Normal [facility] Comment on above: Order Comment: Speci men Type: BLOOD SPECIMENOrdering Facility: [facility] Address: [address] [place] [address] Result Comment: Not Applicable. Performed By: #### L [id number] ####[facility] LABIA [id number] [place] [address] [place] Protein Fractions [Interp] No definitive M protein is identified on protein electrophoresis. Normal No definitive M protein is identified on protein electrophores is. [facility] Comment on above: Order Comment: Speci men Type: BLOOD SPECIMENOrdering Facility: [facility] Address: [address] [place] [address] Performed By: #### L [id number] ####[facility] LABIA [id number] [place] [address] [place] Protein.monoclonal Elph [Mass/Vol] 0.00 g/dL Normal <=0.00 [facility] Comment on above: Order Comment: Speci men Type: BLOOD SPECIMENOrdering Facility: [facility] Address: [address] [place] [address] Performed By: #### L [id number] ####[facility] [id number] [place] [address] [place] SPE STAFF REVIEW Reviewed by Andi Mercedes MD, Ph.D ([id number]) Normal [facility] Comment on above: Order Comment: Speci men Type: BLOOD SPECIMENOrdering Facility: [facility] Address: [address] [place] [address] Performed By: #### L [id number] ####[facility] LABIA [id number] [place] [address] [place] Prot SerPl-mCncon 02-18-2025 Protein [Mass/Vol] 5.8 g/dL Low 6.3-8.0 [facility] Comment on above: Order Comment: Speci men Type: BLOOD SPECIMENOrdering Facility: [facility] Address: [address] [place] [address] Performed By: #### 2 885-2, 1951-09 ####[facility] LABIA [id number] [address] [address] [place] Surgery Visit Reporton 02-13 Surgery Visit Report [facility] [address] [place] [address] OFFICE VISIT Date of Service: 02/13/25 MR#: [id number] Acct: [id number] Name: EDGAR HENDERSON Rep #: [id number] : 1950 Provider: PEGGY Hall Age/Sex: 74/M Location[place] [facility] Status: Signed Intake Vital Signs 01/14/25 09:55 02/13/25 10:18 Height 5 ft 8 in Weight: 120 lb BP 114/66 Blood Pressure Location Rt brachial Position Sitting Respiration 14 Pulse 70 Pulse Source Monitor Temp 97.8 F Temp Source Temporal Pulse Oximetry (%) 97 Oxygen Delivery Method room air Intake Visit Reasons: 2 WK FU Is patient in pain?: Yes Allergies No Known Allergies Allergy (Verified 02/13/25 10:20) Medications ???Medication ???Instructions ???Recorded ???Confirmed ???Type acyclovir 200 mg capsule 200 mg PO TID 09/05/24 02/13/25 Hi story atorvastatin 20 mg tablet 20 mg PO QDAY 09/05/24 02/13/25 Hi story calcium acetate 667 mg tablet 667 mg PO TID 09/05/24 02/13/25 Hi story finasteride 5 mg tablet 5 mg PO QDAY 09/05/24 02/13/25 His tory zanubrutinib 80 mg capsule 160 mg PO BID 09/05/24 02/13/25 Hi story (Brukinsa) oxycodone 5 mg tablet 5 mg PO Q8H PRN pain 2 days #6 tab s 01/14/25 02/13/25 Rx midodrine 2.5 mg tablet 2.5 mg PO ONCE PRN 01/28/25 History Have you fallen in the past year?: Yes Subjective Details: Mr. dEgar Henderson is a 74 y/o male who presents today s/p left upper arm AV graft placement with cadaver femoral-popliteal artery 01/14/2025. The incision site is well-healed. He notes the swelling around the area has improved. He does complain of a sensation of tightness through his forearm with extension through the elbow. No L hand pain, coolness, numbness/paresthesias. Objective Details: A Ox3, NAD RRR Nonlabored respirations LUE AV graft with palpable thrill and bruit throughout L radial pulse palpable, L hand appropriately warm and pink Coding Level of Care Code Global Post Op Diagnoses Hemodialysis access, AV graft Z99.2 [facility] Medical History Wears glasses Cancer Depression Bruising Ambulates with cane History of renal disease History of renal dialysis Low iron High cholesterol Loss of consciousness Hoarseness History of edema History of echocardiogram History of stress test Cardiology follow-up encounter History of hydrocele Amyloidosis ( 2022) Lymphoma ( 2022) Kidney disease Non-smoker Anemia Exertional dyspnea Acute kidney injury Guttate psoriasis BPH (benign prostatic hyperplasia) Surgical History History of colonoscopy ( 06/05/18) History of bilateral inguinal hernia repair ( 2003) Family History Father Heart disease Pacemaker Cancer hodgkins Sister Cancer non hodgkins Social History Smoking Status: Never smoker Assessment and Plan (No Qualifiers) Assessment and Plan (1) Hemodialysis access, AV graft: Status: Acute Plan Incision site is well-healed. Graft appears well-matured at this time. He is cleared to begin use of the graft for dialysis access, will send clearance form to his dialysis unit. Plan for return to the office for tunneled dialysis catheter removal when appropriate or with access difficulties. 02/19/25 1215 Date Shannen WOODS 02/20/25 1515 Cosigner Signature: Date (if applicable) Alvarado Brody MD CC: Dr. Jose Miguel Herbert MD Normal [facility] CNOVon 02-04-2025 CNOV Normal [facility] Lipid 1996 panelon 5 Cholesterol [Mass/Vol] 173 mg/dL Normal <200 [facility] Comment on above: Order Comment: Speci men Type: BLOOD SPECIMENOrdering Facility: [facility] Address: [address] [place] [address] Result Comment: <200 mg/dL, Desirable 200-239 mg/dL, Borderline high>239 mg/dL, High Performed By: #### 2 4331-1 ####[facility] LABCLIA [id number] [id number] [place] [address] STATES OF [facility] Cholesterol in HDL [Mass/Vol] 66 mg/dL Normal >39 [facility] Comment on above: Order Comment: Speci men Type: BLOOD SPECIMENOrdering Facility: [facility] Address: [address] [place] [address] Result Comment: 40-5 9 mg/dL, Acceptable>59 mg/dL, High: Negative risk factor for coronary heart disease<40 mg/dL, Low: Positive risk factor for coronary heart disease Performed By: #### 2 4331-1 ####[facility] LABCLIA [id number] [address] [id number] [place] [address] OF [place] Cholesterol in LDL [Mass/Vol] 92 mg/dL Normal <100 [facility] Comment on above: Order Comment: Speci men Type: BLOOD SPECIMENOrdering Facility: [facility] Address: [address] [place] [address] Result Comment: <100 mg/dL, Optimal 100-129 mg/dL, Near optimal/above optimal 130-159 mg/dL, Borderline high 160-189 mg/dL, High>189 mg/dL, Very highSecondary prevention optimal LDL Cholesterol levels are recommended to be <70 mg/dLLDL cholesterol is calculated using the Mike-NIH equation. Performed By: #### 2 4331-1 ####[facility] LABCLIA [id number] [address] [id number] [place] [address] STATES [facility] Cholesterol in LDL/Cholesterol in HDL [Mass ratio] 1.39 {ratio} Normal <2.54 [facility] Comment on above: Order Comment: Speci men Type: BLOOD SPECIMENOrdering Facility: [facility] Address: [address] [place] [address] Result Comment: Refe rence:1. National Cholesterol Education Program ATP III Guideline At-A-Glance Quick Desk Reference: National Heart, Lung, and Blood [place]. National Institutes of Health. 2001: NIH Publication No. 01-3305.2. An International Atherosclerosis Society position paper: global recommendations for the management of dyslipidemia: executive summary, Atherosclerosis. 2014: 232(2):410-413. Performed By: #### 2 4331-1 ####[facility] LABIA [id number] [address] [id number] [address] STATES [facility] Cholesterol in VLDL [Mass/Vol] 12 mg/dL Normal <30 [facility] Comment on above: Order Comment: Speci men Type: BLOOD SPECIMENOrdering Facility: [facility] Address: [address] [place] [address] Performed By: #### 2 4331-1 ####[facility] LABIA [id number] [address] [address] [facility] [id number] [place] [address] [place] Cholesterol non HDL [Mass/Vol] 107 mg/dL Normal <130 [facility] Comment on above: Order Comment: Speci men Type: BLOOD SPECIMENOrdering Facility: [facility] Address: [address] [place] [address] Result Comment: <130 mg/dL, Optimal 130-159 mg/dL, Near optimal/above optimal 160-189 mg/dL, Borderline high 190-219 mg/dL, High>219 mg/dL, Very highSecondary prevention optimal non HDL Cholesterol levels are recommended to be <100 mg/dL Performed By: #### 2 4331-1 ####[facility] LABCL[facility] [id number] [address] [id number] [place] [address] [place] Cholesterol.total/Oriana sterol in HDL [Mass ratio] 2.62 {ratio} Normal <5.10 [facility] Comment on above: Order Comment: Speci men Type: BLOOD SPECIMENOrdering Facility: [facility] Address: [address] [place] [address] Performed By: #### 2 4331-1 ####[facility] LABCLIA [id number] [address] [id number] [address] STATES OF [facility] FASTING TIME 12 hrs Normal [facility] Comment on above: Order Comment: Speci men Type: BLOOD SPECIMENOrdering Facility: [facility] Address: [address] [place] [address] Performed By: #### 2 4331-1 ####[facility] LABCLIA [id number] [place] [id number] [facility] [id number] [address] Triglyceride [Mass/Vol] 78 mg/dL Normal <150 [facility] Comment on above: Order Comment: Speci men Type: BLOOD SPECIMENOrdering Facility: [facility] Address: [address] [facility] [place] [address] Result Comment: <150 mg/dL, Normal 150-199 mg/dL, Borderline high 200-499 mg/dL, High>499 mg/dL, Very high Performed By: #### 2 4331-1 ####[facility] LABCLIA [id number] [facility] YAPHANKDESK [id number] [place] [id number] Surgery Visit Reporton 01-28 Surgery Visit Report [facility] [address] [facility]. [address] [place] [address] OFFICE VISIT Date of Service: 01/28/25 MR#: [id number] Acct: [id number] Name: EDGAR HENDERSON Rep #: [id number] : 1950 Provider: PEGGY Hall Age/Sex: 74/M Location[place] [facility] [place] Status: Signed Intake Vital Signs 12/18/23 09:54 01/14/25 09:55 01/28/25 09:49 Height 5 ft 8 in 5 ft 8 in Weight: 120 lb BP 97/58 L Blood Pressure Location Rt brachial Position Sitting Respiration 14 Pulse 72 Pulse Source Monitor Temp 97.7 F L Temp Source Temporal Pulse Oximetry (%) 100 Oxygen Delivery Method room air Intake Visit Reasons: Post LUE AV Graft 2-3 WK FU Is patient in pain?: No Allergies No Known Allergies Allergy (Verified 01/28/25 09:51) Medications ???Medication ???Instructions ???Recorded ???Confirmed ???Type acyclovir 200 mg capsule 200 mg PO TID 09/05/24 12/31/24 Hi story atorvastatin 20 mg tablet 20 mg PO QDAY 09/05/24 12/31/24 Hi story calcium acetate 667 mg tablet 667 mg PO TID 09/05/24 12/31/24 Hi story finasteride 5 mg tablet 5 mg PO QDAY 09/05/24 12/31/24 His tory zanubrutinib 80 mg capsule 160 mg PO BID 09/05/24 12/31/24 Hi story (Brukinsa) oxycodone 5 mg tablet 5 mg PO Q8H PRN pain 2 days #6 tab s 01/14/25 Rx midodrine 2.5 mg tablet 2.5 mg PO ONCE PRN 01/28/25 History Have you fallen in the past year?: Yes Subjective Details: Mr. Edgar Henderson is a 74 y/o male who presents today s/p left upper arm AV graft placement with cadaver femoral-popliteal artery 01/14/2025. He has been doing well following surgery. He has noticed some mild edema into his L forearm, has had some intermittent tingling into his L fingers but nothing particularly bothersome at this time. He has not had any concerns at the incision sites. Objective Details: A Ox3, NAD RRR Nonlabored respirations LUE AV graft with palpable thrill and bruit throughout L radial pulse palpable, L hand appropriately warm and pink Coding Level of Care Code Global Post Op Diagnoses Hemodialysis access, AV graft Z99.2 [facility] Medical History Wears glasses Cancer Depression Bruising Ambulates with cane History of renal disease History of renal dialysis Low iron High cholesterol Loss of consciousness Hoarseness History of edema History of echocardiogram History of stress test Cardiology follow-up encounter History of hydrocele Amyloidosis ( 2022) Lymphoma ( 2022) Kidney disease Non-smoker Anemia Exertional dyspnea Acute kidney injury Guttate psoriasis BPH (benign prostatic hyperplasia) Surgical History History of colonoscopy ( 06/05/18) History of bilateral inguinal hernia repair ( 2003) Family History Father Heart disease Pacemaker Cancer hodgkins Sister Cancer non hodgkins Social History Smoking Status: Never smoker Assessment and Plan (No Qualifiers) Assessment and Plan (1) Hemodialysis access, AV graft: Status: Acute Plan Incision site is well-healing; graft appears well-functioning at this time. He has some tingling into his fingers intermittently which may be local nerve irritation vs mild steal, initiate hand exercises and continue to monitor. Plan for return to the office in 2-4 weeks to reassess and clear for use. 01/29/25822 Date Shannen Xavier WOODS 01/29/25 1650 Cosigner Signature: Date (if applicable) Alvarado Brody MD CC: Normal [facility] CNPNon 01-24-2025 CNPN Normal [facility] B2 Microglob SerPl-mCncon Pnsz-5-Reejizhskpwka [Mass/Vol] 16.4 ug/mL High <3.1 [facility] Comment on above: Order Comment: Jasmina allen Type: BLOOD SPECIMENOrdering Facility: [facility] Address: [address] [place] [address] Result Comment: Beta -2 Microglobulin test is performed using the [employer] immunoturbidimetric method. Results obtained with different methods or kits cannot be used interchangeably. Performed By: #### 3 016-3, 1952-1, 2885-2 ####[facility] LABCL[facility] [id number] [place] [address] [place] CBC W Auto Differential pane l (Bld)on 01-23-2025 Basophils (Bld) [#/Vol] 0.05 10*3/uL Normal <0.11 [facility] Comment on above: Order Comment: Jasmina allen Type: BLOOD SPECIMENOrdering Facility: [facility] Address: [address] [place] [address] Performed By: #### 5 7021-8 ####[facility] MANJULAWNCLIA [id number] [place] [address] [place] Basophils/100 WBC (Bld) 1.1 % Normal [facility] Comment on above: Order Comment: Speci men Type: BLOOD SPECIMENOrdering Facility: [facility] Address: [address] [place] [address] Performed By: #### 5 7021-8 ####[facility] MANJULAINDIANA UNIVERSITY HEALTH LA PORTE HOSPITALLIA [id number] [place] [address] [place] Differential cell count method Nom (Bld) Auto Normal [facility] Comment on above: Order Comment: Speci men Type: BLOOD SPECIMENOrdering Facility: [facility] Address: [address] [place] [address] Performed By: #### 5 7021-8 ####[facility] CENTERFRANCISCOA [id number] [place] [address] [place] Eosinophils (Bld) [#/Vol] 0.16 10*3/uL Normal <0.46 [facility] Comment on above: Order Comment: Speci men Type: BLOOD SPECIMENOrdering Facility: [facility] Address: [address] [place] [address] Performed By: #### 5 7021-8 ####[facility] CENTERFRANCISCOPASCUALA [id number] [place] [address] [place] Eosinophils/100 WBC (Bld) 3.5 % Normal [facility] Comment on above: Order Comment: Speci men Type: BLOOD SPECIMENOrdering Facility: [facility] Address: [address] [place] [address] Performed By: #### 5 7021-8 ####[facility] HOSPITALLIA [id number] [place] [address] [place] Erythrocyte distribution width (RBC) [Ratio] 15.0 % Normal 11.5-15.0 [facility] Comment on above: Order Comment: Speci men Type: BLOOD SPECIMENOrdering Facility: [facility] Address: [address] [place] [address] Performed By: #### 5 7021-8 ####[facility]ENTERNCBEAV[facility] [id number] [place] [address] [place] Hematocrit (Bld) [Volume fraction] 29.1 % Low 39.0-51.0 [facility] Comment on above: Order Comment: Speci men Type: BLOOD SPECIMENOrdering Facility: [facility] Address: [address] [place] [address] Performed By: #### 5 7021-8 ####[facility]ENTERNCBEAV[facility] [id number] [place] [address] [place] Hemoglobin (Bld) [Mass/Vol] 9.6 g/dL Low 13.0-17.0 [facility] Comment on above: Order Comment: Speci men Type: BLOOD SPECIMENOrdering Facility: [facility] Address: [address] [place] [address] Performed By: #### 5 7021-8 ####[facility]ENTERNC[facility] [id number] [place] [address] [place] Immature granulocytes (Bld) [#/Vol] 0.03 10*3/uL Normal <0.10 [facility] Comment on above: Order Comment: Speci men Type: BLOOD SPECIMENOrdering Facility: [facility] Address: [address] [place] [address] Performed By: #### 5 7021-8 ####[facility] CENTERNCLI [id number] [place] [address] [place] Immature granulocytes/100 WBC (Bld) 0.7 % Normal [facility] Comment on above: Order Comment: Speci men Type: BLOOD SPECIMENOrdering Facility: [facility] Address: [address] [place] [address] Performed By: #### 5 7021-8 ####[facility] MILLWNCLIA [id number] [place] [address] [place] Lymphocytes (Bld) [#/Vol] 0.49 10*3/uL Low 1.00-4.00 [facility] Comment on above: Order Comment: Speci men Type: BLOOD SPECIMENOrdering Facility: [facility] Address: [address] [place] [address] Performed By: #### 5 7021-8 ####[facility] HOSPITALLIA [id number] [place] [address] [place] Lymphocytes/100 WBC (Bld) 10.7 % Normal [facility] Comment on above: Order Comment: Speci men Type: BLOOD SPECIMENOrdering Facility: [facility] Address: [address] [place] [address] Performed By: #### 5 7021-8 ####[facility] CENTERNCLIA [id number] [place] [address] [place] MCH (RBC) [Entitic mass] 34.9 pg High 26.0-34.0 [facility] Comment on above: Order Comment: Speci men Type: BLOOD SPECIMENOrdering Facility: [facility] Address: [address] [place] [address] Performed By: #### 5 7021-8 ####[facility] BEACHESWNCLIA [id number] [place] [address] [place] MCHC (RBC) [Mass/Vol] 33.0 g/dL Normal 30.5-36.0 [facility] Comment on above: Order Comment: Speci men Type: BLOOD SPECIMENOrdering Facility: [facility] Address: [address] [place] [address] Performed By: #### 5 7021-8 ####[facility] CENTERNCLIA [id number] [place] [address] [place] MCV (RBC) [Entitic vol] 105.8 fL High 80.0-100.0 [facility] Comment on above: Order Comment: Speci men Type: BLOOD SPECIMENOrdering Facility: [facility] Address: [address] [place] [address] Performed By: #### 5 7021-8 ####[facility] [id number] [place] [address] [place] Monocytes (Bld) [#/Vol] 0.84 10*3/uL Normal <0.87 [facility] Comment on above: Order Comment: Speci men Type: BLOOD SPECIMENOrdering Facility: [facility] Address: [address] [place] [address] Performed By: #### 5 7021-8 ####[facility] [id number] [place] [address] [place] Monocytes/100 WBC (Bld) 18.3 % Normal [facility] Comment on above: Order Comment: Speci men Type: BLOOD SPECIMENOrdering Facility: [facility] Address: [address] [place] [address] Performed By: #### 5 7021-8 ####[facility] [id number] [place] [address] [place] Neutrophils (Bld) [#/Vol] 3.02 10*3/uL Normal 1.45-7.50 [facility] Comment on above: Order Comment: Speci men Type: BLOOD SPECIMENOrdering Facility: [facility] Address: [address] [place] [address] Performed By: #### 5 7021-8 ####[facility] [id number] [place] [address] [place] Neutrophils/100 WBC (Bld) 65.7 % Normal [facility] Comment on above: Order Comment: Speci men Type: BLOOD SPECIMENOrdering Facility: [facility] Address: [address] [place] [address] Performed By: #### 5 7021-8 ####[facility] [id number] [place] [address] [place] Nucleated RBC (Bld) [#/Vol] 10*3/uL Normal <0.01 [facility] Comment on above: Order Comment: Speci men Type: BLOOD SPECIMENOrdering Facility: [facility] Address: [address] [place] [address] Performed By: #### 5 7021-8 ####[facility]ENTERNC[facility] [id number] [place] [address] [place] Nucleated RBC/100 WBC (Bld) [Ratio] 0.0 /100 WBC Normal [facility] Comment on above: Order Comment: Speci men Type: BLOOD SPECIMENOrdering Facility: [facility] Address: [address] [place] [address] Performed By: #### 5 7021-8 ####[facility] [id number] [place] [address] [place] Platelet mean volume (Bld) [Entitic vol] 9.4 fL Normal 9.0-12.7 [facility] Comment on above: Order Comment: Speci men Type: BLOOD SPECIMENOrdering Facility: [facility] Address: [address] [place] [address] Performed By: #### 5 7021-8 ####[facility] [id number] [place] [address] [place] Platelets (Bld) [#/Vol] 171 10*3/uL Normal 150-400 [facility] Comment on above: Order Comment: Speci men Type: BLOOD SPECIMENOrdering Facility: [facility] Address: [address] [place] [address] Performed By: #### 5 7021-8 ####[facility] CENTERNCPASCUALA [id number] [place] [address] [place] RBC (Bld) [#/Vol] 2.75 10*6/uL Low 4.20-6.00 [facility] Comment on above: Order Comment: Speci men Type: BLOOD SPECIMENOrdering Facility: [facility] Address: [address] [place] [address] Performed By: #### 5 7021-8 ####[facility] CENTERNCA [id number] [place] [address] [place] WBC (Bld) [#/Vol] 4.59 10*3/uL Normal 3.70-11.00 [facility] Comment on above: Order Comment: Speci men Type: BLOOD SPECIMENOrdering Facility: [facility] Address: [address] [place] [address] Performed By: #### 5 7021-8 ####[facility] [id number] [place] [address] [place] HbA1c (Bld)on 01-23-2025 Average glucose Estimated from glycated hemoglobin (Bld) [Mass/Vol] 103 mg/dL Normal [facility] Comment on above: Order Comment: Speci men Type: BLOOD SPECIMENOrdering Facility: [facility] Address: [address] [place] [address] Result Comment: eAG: (Estimated average glucose) is a calculated value from HgbA1c and is operations representative of the average blood glucose level in the last 2-3 month period. Performed By: #### 5 5454-3 ####[facility] LABCL[facility] [id number] [place] [address] [place] HbA1c (Bld) [Mass fraction] 5.2 % Normal 4.3-5.6 [facility] Comment on above: Order Comment: Speci men Type: BLOOD SPECIMENOrdering Facility: [facility] Address: [address] [place] [address] Result Comment: Amer ican Diabetes Association guidelines indicate that patients with HgbA1c in the range 5.7-6.4% are at increased risk for development of diabetes, and intervention by lifestyle modification may be beneficial. HgbA1c greater or equal to 6.5% is considered diagnostic of diabetes. Performed By: #### 5 5454-3 ####[facility] LABCL[facility] [id number] [address] [place] [address] [facility] IMMUNOFIXATION SCREEN, SERUM on 01-23-2025 INTERPRETATION (MPA) Normal [facility] Comment on above: Order Comment: Jasmina men Type: BLOOD SPECIMENOrdering Facility: [facility] Address: [address] [place] [address] Performed By: #### I FESC ####[facility] LABIA [id number] [place] [id number] [place] [facility] MPA RESULT A poorly defined reg ion of restricted mobility is present that may represent an M protein. Abnormal No M protein is identified. [facility] Comment on above: Order Comment: Speci men Type: BLOOD SPECIMENOrdering Facility: [facility] Address: [address] [place] [address] Performed By: #### I FESC ####[facility] [id number] [place] [id number] [facility] STAFF REVIEW (MPA) Reviewed by Jasiel Syed M.D. Normal [facility] Comment on above: Order Comment: Speci men Type: BLOOD SPECIMENOrdering Facility: [facility] Address: [address] [place] [address] Performed By: #### I FESC ####[facility] [id number] [address] [address] [place] IMMUNOGLOBULINS,IGG,IGA,IGMo n 05-08-2025 IgA [Mass/Vol] 14 mg/dL Low 70-400 [facility] Comment on above: Order Comment: Speci men Type: BLOOD SPECIMENOrdering Facility: [facility] Address: [address] [place] [address] Performed By: #### S ERIMM ####[facility] LABCLIA [id number] [place] [address] [place] IgG [Mass/Vol] 264 mg/dL Low 700-1600 [facility] Comment on above: Order Comment: Speci men Type: BLOOD SPECIMENOrdering Facility: [facility] Address: [address] [place] [address] Performed By: #### S ERIMM ####[facility] LABCLIA [id number] [address] STATES OF [facility] IgM [Mass/Vol] 34 mg/dL Low 40-230 [facility] Comment on above: Order Comment: Speci men Type: BLOOD SPECIMENOrdering Facility: [facility] [facility] Address: [address] [place] [address] Performed By: #### S ERIMM ####[facility] [id number] [place] [address] [place] KAPPA/EMERY,FREE,SERon 2024 Immunoglobulin light chains.kappa.free (S) [Mass/Vol] 26.1 mg/L High 3.3-19.4 [facility] Comment on above: Order Comment: Speci men Type: BLOOD SPECIMENOrdering Facility: [facility] Address: [address] [place] [address] Result Comment: Rare ly, increased serum free light chains levels may not be detected or accurately quantified due to prozone phenomenon or in high viscosity samples using this immunoturbidimetric assay. Correlation with other laboratory results and clinical findings is recommended.The [place] Free Light Chain was performed using the Binding Site Optilite immunoturbidimetric method. Result obtained with different assay methods or kits cannot be used interchangeably. Performed By: #### K LFRS ####[facility] [id number] [place] [address] [place] Immunoglobulin light chains.kappa/Immunoglob ulin light chains.lambda (S) [Mass ratio] 2.72 High 0.26-1.65 [facility] Comment on above: Order Comment: Speci men Type: BLOOD SPECIMENOrdering Facility: [facility] Address: [address] [place] [address] Performed By: #### K LFRS ####[facility] [id number] [place] [address] [place] Immunoglobulin light chains.lambda.free [Mass/Vol] 9.6 mg/L Normal 5.7-26.3 [facility] Comment on above: Order Comment: Speci [facility] Type: BLOOD SPECIMENOrdering Facility: [facility] Address: [address] [place] [address] Result Comment: Rare ly, increased serum free light chains levels may not be detected or accurately quantified due to prozone phenomenon or in high viscosity samples using this immunoturbidimetric assay. Correlation with other laboratory results and clinical findings is recommended.The [place] Free Light Chain was performed using the Binding Site Optilite immunoturbidimetric method. Result obtained with different assay methods or kits cannot be used interchangeably. Performed By: #### K LFRS ####[facility] [id number] [place] [address] [place] LDH SerPl-cCncon 01-23-2025 LDH [Catalytic activity/Vol] 238 U/L High 135-225 [facility] Comment on above: Order Comment: Speci [facility] Type: BLOOD SPECIMENOrdering Facility: [facility] Address: [address] [place] [address] Performed By: #### 2 532-0 ####[facility] MARIA ESTHER [facility] HOSPITALLIDinorah [id number] [place] [address] [place] PROTEIN ELECTROPHORESIS SERU M (P)on 01-23-2025 Albumin [Mass/Vol] 4.15 g/dL Normal 3.43-5.41 [facility] Comment on above: Order Comment: Speci men Type: BLOOD SPECIMENOrdering Facility: [facility] Address: [address] [place] [address] Performed By: #### L [id number] ####[facility] [id number] [place] [address] [place] Alpha 1 globulin Elph [Mass/Vol] 0.37 g/dL Normal 0.18-0.43 [facility] Comment on above: Order Comment: Speci men Type: BLOOD SPECIMENOrdering Facility: [facility] Address: [address] [place] [address] Performed By: #### L [id number] ####[facility] [id number] [place] [address] [place] Alpha 2 globulin Elph [Mass/Vol] 0.81 g/dL Normal 0.42-0.98 [facility] Comment on above: Order Comment: Speci men Type: BLOOD SPECIMENOrdering Facility: [facility] Address: [address] [place] [address] Performed By: #### L [id number] ####[facility] [id number] [place] [address] [place] Beta globulin Elph [Mass/Vol] 0.55 g/dL Low 0.61-1.17 [facility] Comment on above: Order Comment: Speci men Type: BLOOD SPECIMENOrdering Facility: [facility] Address: [address] [place] [address] Performed By: #### L [id number] ####[facility] [id number] [place] [address] [place] Gamma globulin Elph [Mass/Vol] 0.22 g/dL Low 0.53-1.51 [facility] Comment on above: Order Comment: Speci men Type: BLOOD SPECIMENOrdering Facility: [facility] Address: [address] [place] [address] Performed By: #### L [id number] ####[facility] [id number] [address] [address] [place] M-PROTEIN LOCATION Normal [facility] Comment on above: Order Comment: Speci men Type: BLOOD SPECIMENOrdering Facility: [facility] Address: [address] [place] [address] Result Comment: Not Applicable. Performed By: #### L [id number] ####[facility] [id number] [address] [place] [address] [place] Protein Fractions [Interp] No definitive M protein is identified on protein electrophoresis. Normal No definitive M protein is identified on protein electrophores is. [facility] Comment on above: Order Comment: Speci men Type: BLOOD SPECIMENOrdering Facility: [facility] Address: [address] [place] [address] Performed By: #### L [id number] ####[facility] [id number] [address] [address] [place] Protein.monoclonal Elph [Mass/Vol] 0.00 g/dL Normal <=0.00 [facility] Comment on above: Order Comment: Speci men Type: BLOOD SPECIMENOrdering Facility: [facility] Address: [address] [place] [address] Performed By: #### L [id number] ####[facility] [id number] [address] [place] [address] [place] SPE STAFF REVIEW Reviewed by Jasiel Syed M.D. Normal [facility] Comment on above: Order Comment: Speci men Type: BLOOD SPECIMENOrdering Facility: [facility] Address: [address] [place] [address] Performed By: #### L [id number] ####[facility] [id number] [address] [place] [address] [place] Prot SerPl-mCncon 01-23-2025 Protein [Mass/Vol] 6.1 g/dL Low 6.3-8.0 [facility] Comment on above: Order Comment: Speci men Type: BLOOD SPECIMENOrdering Facility: [facility] Address: [address] [place] [address] Performed By: #### 3 016-3, 1951-09, 2884-10 ####[facility] [id number] [place] [address] [place] TSH SerPl-aCncon 01-23-2025 TSH Qn 0.985 m[IU]/L Normal 0.270-4.200 [facility] Comment on above: Order Comment: Speci men Type: BLOOD SPECIMENOrdering Facility: [facility] Address: [address] [place] [address] Performed By: #### 3 016-3, 1951-09, 2884-10 ####[facility] [id number] [place] [address] [place] CNOVon 01-21-2025 CNOV Normal [facility] Discharge Instructionon 12-18 Discharge Instruction [facility] Medical Records Department [address] [place] [address] Instructions for Home/Discharge Instructions 01/14/25 1607 MR#: [id number] Acct: [id number] Name: EDGAR HENDERSON Rep #: [id number] : 1950 74 From: Alvarado Brody MD PCP: Dr. Jose Miguel Herbert MD Status:[facility] Discharge Instructions Diet Discharge Diet: No restrictions Activity Lifting Restrictions: do not lift > 20 lbs with left arm for 3 weeks Additional Activity Instructions:: do not submerge incision for 3 weeks Dressing / Incision Call your doctor if your incision/area has: Sudden Increased Bleeding, Increased Pain/ Swelling, Increased Redness and Foul Smelling Discharge Call your doctor if you observe: Coldness, Increased Pain and Numbness or Tingling Remove Dressing in: 2 days Cleanse incision/area with: Soap Water Follow Up Care Test Results: Test results from this visit will be discussed in further detail at your follow-up appointment, if applicable. Discharge Plan Admission Attending Provider: Alvarado Brody Primary Care Provider: Jose Miguel Herbert Instructions Print Language: [place] Discharge Orders/Prescriptions Prescriptions: New oxycodone 5 mg tablet 5 mg PO Q8H PRN (Reason: pain) 2 Days Qty: 6 0RF Continued calcium acetate 667 mg tablet 667 mg PO TID acyclovir 200 mg capsule 200 mg PO TID finasteride 5 mg tablet 5 mg PO QDAY atorvastatin 20 mg tablet 20 mg PO QDAY Brukinsa 80 mg capsule 160 mg PO BID Referrals / Follow Up: Jose Miguel Herbert MD [Primary Care Provider] - Disposition Disposition (needs filled in before D/C Order can be placed): Home, Self Care 01/14/25 1610 Alvarado Brody MD CC: Dr. Jose Miguel Herbert MD Signed [facility] MR/POSTOP.[facility] 01-14-2025 MR/POSTOP.[facility] Medical Records Department [address] [place] [address] Anesthesia Postop Eval I 01/14/25 1638 MR#: [id number] Acct: [id number] Name: EDGAR HENDERSON Rep #: [id number] : 1950 74 From: Ashley Lee CRNA PCP: Dr. Jose Miguel Herbert MD Status:[facility] Y Race: C Location: [place] [address] Anesthesia: Postop Eval I Current Vital Signs Temperature: 97.9 F Pulse Rate: 77 Blood Pressure: 127/66 Respiratory Rate: 16 Pulse Ox: 100 Oxygen Delivery Method: Venturi Mask Oxygen Flow Rate (L/min): 6 Assessment Airway patent: Yes Spontaneous unlabored respirations: Yes Mental status: Awake nausea: No Vomiting: No Anesthesia Complication: No Fluid Hydration Crystalloid volume administer (ml): 400 Total IV fluid infused: 400 Progress Note Anesthesia document: Postop Eval 1 completed: Yes 01/14/25 1638 Date Ashley Lee LOCKER ROOM CLERK Cosigner Signature: Date CC: Signed Normal [facility] MR/[id number] 01-14-2025 MR/POSTOPAN2 [facility] Medical Records Department [address] [place] [address] Anesthesia Postop Eval II 01/14/251646 MR#: [id number] Acct: [id number] Name: EDGAR HENDERSON Rep #: [id number] : 1950 74 From: Colleen Iniguez CRNA PCP: Dr. Jose Miguel Herbert MD Status:[facility] Y Race: C Location: [place] [address] Anesthesia Postop Eval I Sum Postop Eval Completion status Anesthesia document: Postop Eval 1 completed: Yes Anesthesia Postop Eval I Summary Anesthesia Postop Eval I Summary: Anesthesia Postop Eval I: Assessment Summary Airway patent Yes 01/14/25 16:38 LOCKER ROOM [email or web address] Spontaneous unlabored Yes 01/14/25 16:38 LOCKER ROOM CLERK.LMIL respirations Mental status Awake 01/14/25 16:38 LOCKER ROOM [email or web address].LMIL nausea No 01/14/25 16:38 LOCKER ROOM CLERK.LMIL Vomiting No 01/14/25 16:38 LOCKER ROOM CLERK.LMIL Anesthesia Postop Eval I: Fluid Summary Crystalloid volume administer 400 01/14/25 16:38 LOCKER ROOM CLERK.LMIL (ml) Colloids volume administered ( ml) Blood Product volume administered (ml) Total IV fluid infused 400 01/14/25 16:38 LOCKER ROOM [email or web address].LMIL Anesthesia Postop Eval I: Summary Notes Anesthesia Complication No 01/14/25 16:38 LOCKER ROOM CLERK.LMIL Anesthesia Complication Comment: Post-operative progress note Anesthesia: Postop Eval II Evaluation Mental status: Awake and Calm Pain Level: 0 nausea: No Vomiting: No Complications Anesthesia Complication: No 01/14/251646 Date Colleenalexi Iniguez CRNA Cosigner Signature: Date CC: Signed Normal [facility] Operative Reporton 5 Operative Report [facility] Medical Records Department [address] [place] [address] Operative Report 01/14/25 1747 MR#: [id number] Acct: [id number] Name: EDGAR HENDERSON Rep #: [id number] : 1950 74 From: Alvarado rBody MD PCP: Dr. Jose Miguel Herbert MD Status:[facility] Location: [place] [address] Operative Report (Standard) Operative Information Date of Procedure: 01/14/25 Pre-Operative Diagnosis: End-stage renal disease currently on dialysis Post-Operative Diagnosis: Same Surgery/Procedure Performed: Left upper arm AV graft placement with cadaver femoral-popliteal artery equipment operator: Yes Electrical Tester Battery: Mary Rapp Tasks completed by hospital administrative assistant: Opening, Closing, Opening closing and Retracting Type of Anesthesia: General RN Documented Start/Stop Times: Operation Date: 01/14/25 12:00 Case Time Into Pre-Op 01/14/25 09:23 Out of Pre-Op 01/14/25 13:58 Anesthesia Start 01/14/25 14:00 Into Room 01/14/25 14:00 Procedure Start 01/14/25 14:23 Procedure End 01/14/25 16:22 Anesthesia End 01/14/25 16:31 Out of Room 01/14/25 16:31 Into Recovery 01/14/25 16:35 Out of Recovery 01/14/25 17:30 Into Phase II Recovery 01/14/25 17:31 Procedure Start Time: 14:20 Procedure Stop Time: 16:20 Select all DRAINS/GRAFTS/IMPLANTS that apply: Graft Graft details: Cadaver femoral-popliteal artery Estimated Blood Loss: 25 Specimen collected: No Description of surgery: HPI: Patient is a 74-year-old male with end-stage renal disease currently on dialysis via tunneled IJ catheter. He had vein mapping which revealed minimal reno-sparks vessel options with his best reno-sparks vessel in his dominant right upper extremity. He prefers to avoid his dominant extremity so he presents now for graft placement of the left upper extremity. Description of procedure: Upon obtaining form consent and verification correct patient procedure site the patient was taken to the operating where he was placed under general anesthesia. He was then positioned prepped and draped in usual sterile fashion a time was performed. The skin overlying the brachial artery in the distal forearm was anesthetized 1% lidocaine and a transverse incision made 1 fingerbreadth superior to the antecubital crease. Bovie electrocautery used to dissect down through the subcutaneous tissue and self-retaining retractors put in position. Further dissection was then carried down to the fascia which was incised and self-retaining retractor moved deeper into the wound. Sharp dissection was used to dissect free the brachial artery proximal and distal and a right angle used to place a vessel loop with care taken to identify and protect adjacent nerve and vein structures. Next skin overlying the confluence of the basilic and brachial vein at the axilla was anesthetized 1% lidocaine and longitudinal incision created. Bovie electrocautery was then used to dissect down to the subcutaneous tissue and self-retaining retractor put in position. Sharp dissection was then used to incise the fascia and self-retaining retractors moved deeper into the wound with care taken to identify and protect the adjacent nerves. The basilic vein just prior to its confluence with the brachial vein was dissected free and right angle used to place a vessel loop proximal and distal as well as around 2 large bridging veins. A Hart tunneler was then used to tunnel through the subcutaneous tissue on the anterior aspect of the upper arm over the bicep muscle. The cadaver graft was thawed per seismograph observer's instructions and the patient heparinized allowed to circulate for 3 minutes. The brachial artery was then occluded with Vesseloops and longitudinal arteriotomy created with 11 blade extended with the Pitts scissors. The graft was then anastomosed in end-to-side fashion with 5-0 Prolene in a running fashion. After completing the suture line the vessels were back flushed into the graft and the graft occluded just beyond the anastomosis with satisfactory stasis noted of the suture line. The graft was then marked to maintain orientation and secured to the tunneler then pulled through the subcutaneous tissue to the upper arm. The basilic vein was then occluded with Vesseloops and longitudinal venotomy created with an 11 blade extended with Pitts scissors. The graft was then cut the length and beveled to match the venotomy. Distal anastomosis was then performed using a 5-0 Prolene in a running fashion. Prior to completing the suture line the vessels were backbled after completing the suture line clamps removed and satisfactory stasis was noted. There is a palpable thrill in the graft in the outflow vein and a palpable radial pulse at the wrist. Heparin was then reversed with protamine and incision inspected for hemostasis. The incision was then closed with 3-0 Vicryl followed by 4-0 Monocryl and Dermabond for the s (more content not included)... Normal [facility] HBV surface Ag Ql (S)Ordered By: Bonnie Barrera on 01-13-2025 Hepatitis B Surface Antigen Non-Reactive Nonreactive [facility] Comment on above: Reactive: Presumptiv e evidence of HBV. Repeatedly reactive samples must be confirmed using a neutralization test ([employer] HBsAg Confirmatory Test)Non-Reactive: HBsAg not detected; does not exclude the possibility of exposure to HBV L3890.6102on 01-13-2025 HEP B Surf Ag Non-Reactive Normal Nonreactive [facility] Comment on above: Result Comment: Reac tive: Presumptive evidence of HBV. Repeatedly reactive samples must be confirmed using a neutralization test ([employer] HBsAg Confirmatory Test) Non-Reactive: HBsAg not detected; does not exclude the possibility of exposure to HBV Performed By: #### L 3890.6102 #### [facility] Laboratory [address] [place], [address] Laboratory - Microbiology an d Antimicrobial susceptibilityOrdered By: Bonnie Barrera on 01-13-2025 HBV surface Ag Ql (S) Non-Reactive Nonreactive [facility] Comment on above: Reactive: Presumptiv e evidence of HBV. Repeatedly reactive samples must be confirmed using a neutralization test ([employer]ys HBsAg Confirmatory Test)Non-Reactive: HBsAg not detected; does not exclude the possibility of exposure to HBV Absolute lymphocyte countOrd ered By: Bonnie Barrera on 01-10-2025 Lymphocytes Auto (Unsp spec) [#/Vol] 0.36 10*3/uL Low 0.83-4.51 [facility] Absolute neutrophil countOrd ered By: Bonnie Barrera on 01-10-2025 Neutrophils (Bld) [#/Vol] 2.6 10*3/uL 2.0-7.7 [facility] Automated lymphocyte count a s percentage of total leukocytesOrdered By: Bonnie Barrera on 01-10-2025 Lymphocytes/100 WBC Auto (Unsp spec) 9.5 % Low 19-41 [facility] BUNon 01-10-2025 Urea nitrogen [Mass/Vol] 62 mg/dL High 4- [facility] Comment on above: Performed By: #### L 100.0100, L501.1000, L501.5600 #### [facility] [address] [place], [address] Urea nitrogen [Mass/Vol] 18 mg/dL Normal - [facility] Comment on above: Performed By: #### L 100.0100, L501.1000, L501.5600 #### [facility] [address] [place], [address] Basophil percentageOrdered B y: Bonnie Barrera on 01-10-2025 Basophils/100 WBC (Bld) 1.6 % High 0-1 [facility] CBC W/Diff, Automatedon 12-18 Absolute Lymph 0.36 X10 3/uL Low 0.83-4.51 [facility] Comment on above: Performed By: #### L 100.0100, L501.1000, L501.5600 #### [facility] [address] [place], [address] Absolute Neut 2.6 X10 3/uL Normal 2.0-7.7 [facility] Comment on above: Performed By: #### L 100.0100, L501.1000, L501.5600 #### [facility] [address] [place], [address] Basophils/100 WBC (Bld) 1.6 % High 0-1 [facility] Comment on above: Performed By: #### L 100.0100, L501.1000, L501.5600 #### [facility] [address] [place], [address] Eosinophils/100 WBC (Bld) 3.2 % Normal 0-5 [facility] Comment on above: Performed By: #### L 100.0100, L501.1000, L501.5600 #### [facility] [address] [place], [address] Erythrocyte distribution width (RBC) [Ratio] 14.6 % Normal 11.6-14.6 [facility] Comment on above: Performed By: #### L 100.0100, L501.1000, L501.5600 #### [facility] [address] [place], [address] Hematocrit (Bld) [Volume fraction] 28.4 % Low 40-54 [facility] Comment on above: Performed By: #### L 100.0100, L501.1000, L501.5600 #### [facility] [address] [place], [address] Hemoglobin (Bld) [Mass/Vol] 9.2 g/dL Low 13.0-16.5 [facility] Comment on above: Performed By: #### L 100.0100, L501.1000, L501.5600 #### [facility] [address] [place], [address] IG% 0.500 Normal 0.0-0.9 [facility] Comment on above: Result Comment: IG% - Immature Granulocytes (promyelocytes, myelocytes and metamyelocytes) > 1% indicates that a LEFT SHIFT is Present. Performed By: #### L 100.0100, L501.1000, L501.5600 #### [facility] [address] [place], [address] Lymphocytes/100 WBC (Bld) 9.5 % Low 19-41 [facility] Comment on above: Performed By: #### L 100.0100, L501.1000, L501.5600 #### [facility] [address] [place] [place], [address] MCH (RBC) [Entitic mass] 34.5 pg High 27.0-32.0 [facility] Comment on above: Performed By: #### L 100.0100, L501.1000, L501.5600 #### [facility] [address] [place], [address] MCHC (RBC) [Mass/Vol] 32.4 g/dL Normal 32-36 [facility] Comment on above: Performed By: #### L 100.0100, L501.1000, L501.5600 #### [facility] [address] [place], [address] MCV (RBC) [Entitic vol] 106.4 fL High 80-94 [facility] Comment on above: Performed By: #### L 100.0100, L501.1000, L501.5600 #### [facility] [address] [place], [address] Monocytes/100 WBC (Bld) 17.1 % High 0-10 [facility] Comment on above: Performed By: #### L 100.0100, L501.1000, L501.5600 #### [facility] [address] [place], [address] Neutrophils/100 WBC (Bld) 68.1 % Normal 47-70 [facility] Comment on above: Performed By: #### L 100.0100, L501.1000, L501.5600 #### [facility] [address] [place], [address] Nucleated RBC (Bld) [#/Vol] 0 10*3/uL Normal 0-5 [facility] Comment on above: Performed By: #### L 100.0100, L501.1000, L501.5600 #### [facility] [address] [place], [address] Platelet mean volume (Bld) [Entitic vol] 11.2 fL Normal 6.2-12.0 [facility] Comment on above: Performed By: #### L 100.0100, L501.1000, L501.5600 #### [facility] [address] [place], [address] Platelets (Bld) [#/Vol] 151 10*3/uL Normal 150-450 [facility] Comment on above: Performed By: #### L 100.0100, L501.1000, L501.5600 #### [facility] Laboratory [address] [place], [address] RBC (Bld) [#/Vol] 2.67 10*6/uL Low 4.6-6.2 [facility] Comment on above: Performed By: #### L 100.0100, L501.1000, L501.5600 #### [facility] Laboratory [address] [place], [address] RDW SD 56.6 fl High 35.1-43.9 [facility] Comment on above: Performed By: #### L 100.0100, L501.1000, L501.5600 #### [facility] Laboratory [address] [place], [address] WBC (Bld) [#/Vol] 3.8 10*3/uL Low 4.4-11.0 [facility] Comment on above: Performed By: #### L 100.0100, L501.1000, L501.5600 #### [facility] Laboratory [address] [place], [address] Eosinophil percentageOrdered By: Bonnie Barrera on 01-10-2025 Eosinophils/100 WBC (Bld) 3.2 % 0-5 [facility] Erythrocyte distribution wid th (RBC) [Ratio]Ordered By: Bonnie Barrera on 01-10-2025 Erythrocyte distribution width (RBC) [Entitic vol] 56.6 fL High 35.1-43.9 [facility] Erythrocyte distribution wid th ratioOrdered By: Bonnie Barrera on 01-10-2025 Erythrocyte distribution width (RBC) [Ratio] 14.6 % 11.6-14.6 [facility] Erythrocyte distribution wid th standard deviationOrdered By: Bonnie Barrera on 01-10-2025 Erythrocyte distribution width (RBC) [Ratio] 56.6 fl High 35.1-43.9 [facility] Hematocrit Auto (Bld) [Volum e fraction]Ordered By: Bonnie Barrera on 01-10-2025 Hematocrit (Bld) [Volume fraction] 28.4 % Low 40-54 [facility] Hemoglobin measurementOrdere d By: Bonnie Barrera on 01-10-2025 Hemoglobin (Bld) [Mass/Vol] 9.2 g/dL Low 13.0-16.5 [facility] Immature granulocytes/100 WB C Auto (Bld)Ordered By: Bonnie Barrera on 01-10-2025 Immature granulocytes/100 WBC (Bld) 0.500 % 0.0-0.9 [facility] Comment on above: IG% - Immature Granu locytes (promyelocytes, myelocytes and metamyelocytes) > 1% indicates that a LEFT SHIFT is Present. Lymphocytes Auto (Unsp spec) [#/Vol]Ordered By: Bonnie Barrera on 01-10-2025 Lymphocytes (Bld) [#/Vol] 0.36 10*3/uL Low 0.83-4.51 [facility] Lymphocytes/100 WBC Auto (Un sp spec)Ordered By: Bonnie Barrera on 01-10-2025 Lymphocytes/100 WBC (Bld) 9.5 % Low 19-41 [facility] MCV (mean corpuscular volume ) determinationOrdered By: Bonnie Barrera on 01-10-2025 MCV (RBC) [Entitic vol] 106.4 fL High 80-94 [facility] Mean corpuscular hemoglobin (MCH) determinationOrdered By: Bonnie Barrera on 01-10-2025 MCH (RBC) [Entitic mass] 34.5 pg High 27.0-32.0 [facility] Mean corpuscular hemoglobin concentration (MCHC) determinationOrdered By: Bonnie Barrera on 01-10-2025 MCHC (RBC) [Mass/Vol] 32.4 g/dL 32-36 [facility] Mean platelet volume determi nationOrdered By: Bonnie Barrera on 01-10-2025 Platelet mean volume (Bld) [Entitic vol] 11.2 fL 6.2-12.0 [facility] Monocyte percentageOrdered B y: Bonnie Barrera on 01-10-2025 Monocytes/100 WBC (Bld) 17.1 % High 0-10 [facility] Neutrophil percentageOrdered By: Bonnie Barrera on 01-10-2025 Neutrophils/100 WBC (Bld) 68.1 % 47-70 [facility] Nucleated red blood cell per centageOrdered By: Bonnie Barrera on 01-10-2025 Nucleated RBC/100 WBC (Bld) [Ratio] 0 % 0-5 [facility] Platelet countOrdered By: Drake Barrera on 01-10-2025 Platelets (Bld) [#/Vol] 151 10*3/uL 150-450 [facility] Potassiumon 01-10-2025 Potassium [Moles/Vol] 4.3 mmol/L Normal 3.3-5.1 [facility] Comment on above: Performed By: #### L 100.0100, L501.1000, L501.5600 #### [facility] Laboratory [address] [place] [address], [id number] Potassium (Unsp spec) [Mass/ Vol]Ordered By: Bonnie Barrera on 01-10-2025 Potassium [Moles/Vol] 4.3 mmol/L 3.3-5.1 [facility] Potassium measurement (mass/ volume)Ordered By: Bonnie Barrera on 01-10-2025 Potassium (Unsp spec) [Mass/Vol] 4.3 mmol/L 3.3-5.1 [facility] RBC Auto (Bld) [#/Vol]Ordere d By: Bonnie Barrera on 01-10-2025 RBC (Bld) [#/Vol] 2.67 10*6/uL Low 4.6-6.2 [facility] Serum or plasma urea nitroge n measurement (mass/volume)Ordered By: Yessicaiain Barrera on 01-10-2025 Urea nitrogen [Mass/Vol] 18 mg/dL 4-19 [facility] White blood cell (WBC) count Ordered By: Yessicaiain Barrera on 01-10-2025 WBC (Bld) [#/Vol] 3.8 10*3/uL Low 4.4-11.0 [facility] MR/PAT.ANEon 01-01-2025 MR/PAT.ANE [facility] Medical Records Department [address] [place] [address] PAT - Anesthesia 01/01/25 1113 MR#: [id number] Acct: [id number] Name: EDGAR HENDERSON Rep #: [id number] : 1950 74 From: Steven Mandujano MD PCP: Dr. 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 When Was Last Pacemaker Check QUESTION #4 FULL TEXT: You/Your Family Experience fever (hyperthermia) with Anesthesia Last Oral Intake Last Oral intake: Last Oral Intake NPO since Meds taken in AM with sips of water? Meds patient instructed to take am of surgery PONV PONV - raw mill operator: PONV - raw mill operator Female No 12/31/24 09:16 HX of Motion Sickness No 12/31/24 09:16 HX of N/V After Surgery No 12/31/24 09:16 Non-Smoker Yes 12/31/24 09:16 Duration of Surgery greater No 12/31/24 09:16 than 60 minutes Number of Risk Factors 1 12/31/24 09:16 PONV Score Low Risk 12/31/24 09:16 Height Weight Height Weight: Anesthesia: Height Weight Height 5 ft 8 in 12/18/23 09:54 Respiratory Assessment Respiratory Assessment - raw mill operator: Respiratory Tract Infection Hx - raw mill operator Hx Respiratory Tract Infection No 12/31/24 09:16 STOP Sleep Apnea STOP Sleep Apnea - raw mill operator: STOP Sleep Apnea - raw mill operator Hx Hypertension No 12/31/24 09:16 Hx Sleep Apnea No 12/31/24 09:16 CPAP BIPAP Do you snore loudly (louder No 12/31/24 09:16 than talking or can be heard Do you often feel tired/ No 12/31/24 09:16 fatigued/ sleepy during daytime? Has anyone observed you stop No 12/31/24 09:16 breathing during sleep? STOP Results Negative 12/31/24 09:16 QUESTION #5 FULL TEXT : Do you snore loudly (louder than talking or can be heard through closed doors)? 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 Specify any problems Hx of Preganancy in last 3 N/A 12/31/24 09:16 Months Nurse Filling Out Transfusion VLEHMAN 12/31/24 09:16 Questions: Date: 12/31/24 12/31/24 09:16 Time: 09:34 12/31/24 09:16 Patient unable to answer at this time (ie. confused, unrespo /Reproduction History /Reproductive History - raw mill operator: /Reproductive Hx- raw mill operator Hx Now Gestational Age (in weeks): EDC: Hx Hx Para Hx Section SAB PFSH Medical History Wears glasses Cancer Depression Bruising Ambulates with cane History of renal disease History of renal dialysis Low iron High cholesterol Loss of consciousness Hoarseness History of edema History of echocardiogram History of stress test Cardiology follow-up encounter History of hydrocele Amyloidosis ( 2022) Lymphoma ( 2022) Kidney disease Non-smoker Anemia Exertional dyspnea Acute kidney injury Guttate psoriasis BPH (benign prostatic hyperplasia) Home Medications ???Medication ???Instructions ???Recorded ???Last Taken ???Type acyclovir 200 mg capsule 200 mg PO TID 09/05/24 Unknown His tory atorvastatin 20 mg tablet 20 mg PO QDAY 09/05/24 Unknown His tory calcium acetate 667 mg tablet 667 mg PO TID 09/05/24 Unknown His tory finasteride 5 mg tablet 5 mg PO QDAY 09/05/24 Unknown Hist ory zanubrutinib 80 mg capsule 160 mg PO BID 09/05/24 Unknown His tory (Brukinsa) Aller (more content not included)... Normal [facility] CNPNon 12-31-2024 CNPN Normal [facility] B2 Microglob SerPl-mCncon Zemu-1-Wkcixlvnjdzhh [Mass/Vol] 16.2 ug/mL High <3.1 [facility] Comment on above: Order Comment: Speci men Type: BLOOD SPECIMENOrdering Facility: [facility] Address: [address] [place] [address] Result Comment: Beta -2 Microglobulin test is performed using the [employer] immunoturbidimetric method. Results obtained with different methods or kits cannot be used interchangeably. Performed By: #### 1 952-1, 2885-2 ####[facility] LABCLIA [id number] [place] [address] [place] CBC W Auto Differential pane l (Bld)on 12-24-2024 Basophils (Bld) [#/Vol] 0.05 10*3/uL Normal <0.11 [facility] Comment on above: Order Comment: Speci men Type: BLOOD SPECIMENOrdering Facility: [facility] Address: [address] [place] [address] Performed By: #### 5 7021-8 ####[facility] MILLWNCLIA [id number] [place] [address] [place] Basophils/100 WBC (Bld) 1.4 % Normal C [facility] Comment on above: Order Comment: Speci men Type: BLOOD SPECIMENOrdering Facility: [facility] Address: [address] [place] [address] Performed By: #### 5 7021-8 ####[facility] BEACHESWKSLIA [id number] [place] [address] [place] Differential cell count method Nom (Bld) Auto Normal [facility] Comment on above: Order Comment: Speci men Type: BLOOD SPECIMENOrdering Facility: [facility] Address: [address] [place] [address] Performed By: #### 5 7021-8 ####[facility] BEACHESWKSLIA [id number] [place] [address] [place] Eosinophils (Bld) [#/Vol] 0.12 10*3/uL Normal <0.46 [facility] Comment on above: Order Comment: Speci men Type: BLOOD SPECIMENOrdering Facility: [facility] Address: [address] [place] [address] Performed By: #### 5 7021-8 ####[facility] BEACHESWNCLIA [id number] [place] [address] [place] Eosinophils/100 WBC (Bld) 3.5 % Normal [facility] Comment on above: Order Comment: Speci men Type: BLOOD SPECIMENOrdering Facility: [facility] Address: [address] [place] [address] Performed By: #### 5 7021-8 ####[facility]ENTERNCLIA [id number] [place] [address] [place] Erythrocyte distribution width (RBC) [Ratio] 14.6 % Normal 11.5-15.0 [facility] Comment on above: Order Comment: Speci men Type: BLOOD SPECIMENOrdering Facility: [facility] Address: [address] [place] [address] Performed By: #### 5 7021-8 ####[facility] [id number] [place] [address] [place] Hematocrit (Bld) [Volume fraction] 31.0 % Low 39.0-51.0 [facility] Comment on above: Order Comment: Speci men Type: BLOOD SPECIMENOrdering Facility: [facility] Address: [address] [place] [address] Performed By: #### 5 7021-8 ####[facility] [id number] [place] [address] [place] Hemoglobin (Bld) [Mass/Vol] 10.4 g/dL Low 13.0-17.0 [facility] Comment on above: Order Comment: Speci men Type: BLOOD SPECIMENOrdering Facility: [facility] Address: [address] [place] [address] Performed By: #### 5 7021-8 ####[facility]ENTERNCLIA [id number] [place] [address] [place] Immature granulocytes (Bld) [#/Vol] 0.04 10*3/uL Normal <0.10 [facility] Comment on above: Order Comment: Speci men Type: BLOOD SPECIMENOrdering Facility: [facility] Address: [address] [place] [address] Performed By: #### 5 7021-8 ####[facility]ENTERNCLI [id number] [place] [address] [place] Immature granulocytes/100 WBC (Bld) 1.2 % Normal [facility] Comment on above: Order Comment: Speci men Type: BLOOD SPECIMENOrdering Facility: [facility] Address: [address] [place] [address] Performed By: #### 5 7021-8 ####[facility] MANJULANOÉ [id number] [place] [address] [place] Lymphocytes (Bld) [#/Vol] 0.38 10*3/uL Low 1.00-4.00 [facility] Comment on above: Order Comment: Speci men Type: BLOOD SPECIMENOrdering Facility: [facility] Address: [address] [place] [address] Performed By: #### 5 7021-8 ####[facility] [id number] [place] [address] [place] Lymphocytes/100 WBC (Bld) 11.0 % Normal [facility] Comment on above: Order Comment: Speci men Type: BLOOD SPECIMENOrdering Facility: [facility] Address: [address] [place] [address] Performed By: #### 5 7021-8 ####[facility] CENTERDAISYDinorah [id number] [place] [address] [place] MCH (RBC) [Entitic mass] 34.7 pg High 26.0-34.0 [facility] Comment on above: Order Comment: Speci men Type: BLOOD SPECIMENOrdering Facility: [facility] Address: [address] [place] [address] Performed By: #### 5 7021-8 ####[facility]ENTERNCLIA [id number] [place] [address] [place] MCHC (RBC) [Mass/Vol] 33.5 g/dL Normal 30.5-36.0 [facility] Comment on above: Order Comment: Speci men Type: BLOOD SPECIMENOrdering Facility: [facility] Address: [address] [place] [address] Performed By: #### 5 7021-8 ####[facility] BEACHESWNCLIA [id number] [place] [address] [place] MCV (RBC) [Entitic vol] 103.3 fL High 80.0-100.0 C [facility] Comment on above: Order Comment: Speci men Type: BLOOD SPECIMENOrdering Facility: [facility] Address: [address] [place] [address] Performed By: #### 5 7021-8 ####[facility] HOSPITALLIA [id number] [place] [address] [place] Monocytes (Bld) [#/Vol] 0.64 10*3/uL Normal <0.87 [facility] Comment on above: Order Comment: Speci men Type: BLOOD SPECIMENOrdering Facility: [facility] Address: [address] [place] [address] Performed By: #### 5 7021-8 ####[facility] [id number] [place] [address] [place] Monocytes/100 WBC (Bld) 18.5 % Normal C [facility] Comment on above: Order Comment: Speci men Type: BLOOD SPECIMENOrdering Facility: [facility] Address: [address] [place] [address] Performed By: #### 5 7021-8 ####[facility] HOSPITALLIA [id number] [place] [address] [place] Neutrophils (Bld) [#/Vol] 2.23 10*3/uL Normal 1.45-7.50 [facility] Comment on above: Order Comment: Speci men Type: BLOOD SPECIMENOrdering Facility: [facility] Address: [address] [place] [address] Performed By: #### 5 7021-8 ####[facility] CENTERNCLI [id number] [place] [address] [place] Neutrophils/100 WBC (Bld) 64.4 % Normal [facility] Comment on above: Order Comment: Speci men Type: BLOOD SPECIMENOrdering Facility: [facility] Address: [address] [place] [address] Performed By: #### 5 7021-8 ####[facility]NC[facility] [id number] [place] [address] [place] Nucleated RBC (Bld) [#/Vol] 10*3/uL Normal <0.01 [facility] Comment on above: Order Comment: Speci men Type: BLOOD SPECIMENOrdering Facility: [facility] Address: [address] [place] [address] Performed By: #### 5 7021-8 ####[facility] [id number] [place] [address] [place] Nucleated RBC/100 WBC (Bld) [Ratio] 0.0 /100 WBC Normal [facility] Comment on above: Order Comment: Speci men Type: BLOOD SPECIMENOrdering Facility: [facility] Address: [address] [place] [address] Performed By: #### 5 7021-8 ####[facility] [id number] [place] [address] [place] Platelet mean volume (Bld) [Entitic vol] 10.5 fL Normal 9.0-12.7 [facility] Comment on above: Order Comment: Speci men Type: BLOOD SPECIMENOrdering Facility: [facility] Address: [address] [place] [address] Performed By: #### 5 7021-8 ####[facility] [id number] [place] [address] [place] Platelets (Bld) [#/Vol] 166 10*3/uL Normal 150-400 [facility] Comment on above: Order Comment: Speci men Type: BLOOD SPECIMENOrdering Facility: [facility] Address: [address] [place] [address] Performed By: #### 5 7021-8 ####[facility] RADHASARAHI [id number] [place] [address] [place] RBC (Bld) [#/Vol] 3.00 10*6/uL Low 4.20-6.00 [facility] Comment on above: Order Comment: Speci men Type: BLOOD SPECIMENOrdering Facility: [facility] Address: [address] [place] [address] Performed By: #### 5 7021-8 ####[facility] MANJULANOÉ [id number] [place] [address] [place] WBC (Bld) [#/Vol] 3.46 10*3/uL Low 3.70-11.00 [facility] Comment on above: Order Comment: Speci men Type: BLOOD SPECIMENOrdering Facility: [facility] Address: [address] [place] [address] Performed By: #### 5 7021-8 ####[facility]ESNOÉ [id number] [place] [address] [place] CNPNon 12-24-2024 CNPN Normal [facility] Comprehensive metabolic 2000 panelon 12-24-2024 Albumin [Mass/Vol] 4.4 g/dL Normal 3.9-4.9 [facility] Comment on above: Order Comment: Speci men Type: BLOOD SPECIMENOrdering Facility: [facility] Address: [address] [place] [address] Performed By: #### 2 4323-8, 2532-0 ####[facility] MANJULASANTA ANANCPASCUALA [id number] [place] [address] [place] ALP [Catalytic activity/Vol] 131 U/L High 38-113 [facility] Comment on above: Order Comment: Speci men Type: BLOOD SPECIMENOrdering Facility: [facility] Address: [address] [place] [address] Performed By: #### 2 4323-8, 2531-0 ####[facility] MARIA ESTHER BLANCO [id number] [place] [address] [place] ALT [Catalytic activity/Vol] 21 U/L Normal 10-54 [facility] Comment on above: Order Comment: Speci men Type: BLOOD SPECIMENOrdering Facility: [facility] Address: [address] [place] [address] Performed By: #### 2 4323-8, 2531-0 ####[facility] MANJULAAPOLINAR [id number] [place] [address] [place] Anion gap [Moles/Vol] 11 mmol/L Normal 8-15 [facility] Comment on above: Order Comment: Speci men Type: BLOOD SPECIMENOrdering Facility: [facility] Address: [address] [place] [address] Performed By: #### 2 4323-8, 2531-0 ####[facility] MARIA ESTHER MANJULAAPOLINAR [id number] [place] [address] [place] AST [Catalytic activity/Vol] 24 U/L Normal 14-40 [facility] Comment on above: Order Comment: Speci men Type: BLOOD SPECIMENOrdering Facility: [facility] Address: [address] [place] [address] Performed By: #### 2 4323-8, 2-0 ####[facility] MANJULAHUGOA [id number] [place] [address] [place] Bilirubin [Mass/Vol] 0.4 mg/dL Normal 0.2-1.3 [facility] Comment on above: Order Comment: Speci men Type: BLOOD SPECIMENOrdering Facility: [facility] Address: [address] [place] [address] Performed By: #### 2 4323-8, 2531-0 ####[facility] MILLTOWNCLIA [id number] [place] [address] [place] Calcium [Mass/Vol] 10.0 mg/dL Normal 8.5-10.2 [facility] Comment on above: Order Comment: Speci men Type: BLOOD SPECIMENOrdering Facility: [facility] Address: [address] [place] [address] Performed By: #### 2 4328, 2531-0 ####[facility] MILLWNCLIA [id number] [place] [address] [place] Chloride [Moles/Vol] 98 mmol/L Normal 98-107 [facility] Comment on above: Order Comment: Speci men Type: BLOOD SPECIMENOrdering Facility: [facility] Address: [address] [place] [address] Performed By: #### 2 4328, 2531-0 ####[facility] [id number] [place] [address] [place] CO2 [Moles/Vol] 30 mmol/L Normal 22-30 [facility] Comment on above: Order Comment: Speci men Type: BLOOD SPECIMENOrdering Facility: [facility] Address: [address] [place] [address] Performed By: #### 2 4328, 2531-0 ####[facility] MILLTOWNCLIA [id number] [place] [address] [place] Creatinine [Mass/Vol] 3.91 mg/dL High 0.73-1.22 [facility] Comment on above: Order Comment: Speci men Type: BLOOD SPECIMENOrdering Facility: [facility] Address: [address] [place] [address] Performed By: #### 2 4328, 2531-0 ####[facility] CENTERFRANCISCOLIA [id number] [place] [address] [place] Creatinine and Glomerular filtration rate.predicted panel (S/P/Bld) 16 mL/min/1.73m??? Low >=60 [facility] Comment on above: Order Comment: Jasmina allen Type: BLOOD SPECIMENOrdering Facility: [facility] Address: [address] [place] [address] Result Comment: Radha mated Glomerular Filtration Rate (eGFR) is calculated using the 2020 CKD-EPI creatinine equation. This equation utilizes serum creatinine, sex, and age as parameters. The creatinine assay has traceable calibration to isotope dilution-mass spectrometry. Refer to KDIGO guidelines for clinical interpretation. In patients with unstable renal function, e.g. those with acute kidney injury, the eGFR may not accurately reflect actual GFR. Performed By: #### 2 4323-8, 2532-0 ####[facility] [id number] [place] [address] [place] Glucose [Mass/Vol] 106 mg/dL High 74-99 [facility] Comment on above: Order Comment: Jasmina allen Type: BLOOD SPECIMENOrdering Facility: [facility] Address: [address] [place] [address] Result Comment: The [place] Diabetes Association (ADA) provides guidance for cutoff values for fasting glucose and random glucose. The ADA defines fasting as no caloric intake for at least 8 hours. Fasting plasma glucose results between 100 to 125 mg/dL indicate increased risk for diabetes (prediabetes).Fasting plasma glucose results greater than or equal to 126 mg/dL meet the criteria for diagnosis of diabetes. In the absence of unequivocal hyperglycemia, results should be confirmed by repeat testing. In a patient with classic symptoms of hyperglycemia or hyperglycemic crisis, random plasma glucose results greater than or equal to 200 mg/dL meet the criteria for diagnosis of diabetes.Reference: Standards of Medical Care in Diabetes 2016, [place] [employer] Association. Diabetes Care. 2016.39(Suppl 1). Performed By: #### 2 4323-8, 2532-0 ####[facility] CENTERNCLI [id number] [place] [address] [place] Potassium [Moles/Vol] 3.5 mmol/L Low 3.7-5.1 [facility] Comment on above: Order Comment: Speci men Type: BLOOD SPECIMENOrdering Facility: [facility] Address: [address] [place] [address] Performed By: #### 2 4323-8, 2532-0 ####[facility] MILLSUMIWDAISYA [id number] [place] [address] [place] Protein [Mass/Vol] 6.4 g/dL Normal 6.3-8.0 [facility] Comment on above: Order Comment: Speci men Type: BLOOD SPECIMENOrdering Facility: [facility] Address: [address] [place] [address] Performed By: #### 2 4323-8, 2531-0 ####[facility] CENTERSARAHI [id number] [place] [address] [place] Sodium [Moles/Vol] 139 mmol/L Normal 136-144 [facility] Comment on above: Order Comment: Speci men Type: BLOOD SPECIMENOrdering Facility: [facility] Address: [address] [place] [address] Performed By: #### 2 4323-8, 2532-0 ####[facility] CHARLOTTEAPOLINAR [id number] [place] [address] [place] Urea nitrogen [Mass/Vol] 48 mg/dL High 9-24 [facility] Comment on above: Order Comment: Speci men Type: BLOOD SPECIMENOrdering Facility: [facility] Address: [address] [place] [address] Performed By: #### 2 4323-8, 2532-0 ####[facility] CENTERNCLIA [id number] [place] [address] [place] IMMUNOFIXATION SCREEN, SERUM on 12-24-2024 INTERPRETATION ([facility]) Normal [facility] Comment on above: Order Comment: Speci men Type: BLOOD SPECIMENOrdering Facility: [facility] Address: [address] [place] [address] Performed By: #### I FESC ####[facility] LABCLIA [id number] [address] [place] [address] [place] MPA RESULT A poorly defined reg ion of restricted mobility is present that may represent an M protein. Abnormal No M protein is identified. [facility] Comment on above: Order Comment: Speci men Type: BLOOD SPECIMENOrdering Facility: [facility] Address: [address] [place] [address] Performed By: #### I FES ####[facility] LABIA [id number] [address] OF [facility] STAFF REVIEW ([facility]) Reviewed by Andi Mercedes MD, Ph.D ([id number]) Normal [facility] Comment on above: Order Comment: Speci men Type: BLOOD SPECIMENOrdering Facility: [facility] Address: [address] [place] [address] Performed By: #### I FES ####[facility] LABIA [id number] [address] [place] [address] [place] IMMUNOGLOBULINS,IGG,IGA,IGMo n 12-24-2024 IgA [Mass/Vol] 16 mg/dL Low 70-400 [facility] Comment on above: Order Comment: Speci men Type: BLOOD SPECIMENOrdering Facility: [facility] Address: [address] [place] [address] Performed By: #### S ERIMM ####[facility] LABIA [id number] [place] [id number] [place] IgG [Mass/Vol] 279 mg/dL Low 700-1600 [facility] Comment on above: Order Comment: Speci men Type: BLOOD SPECIMENOrdering Facility: [facility] Address: [address] [place] [address] Performed By: #### S ERIMM ####[facility] LABCLIA [id number] [place] [address] [place] IgM [Mass/Vol] 33 mg/dL Low 40-230 [facility] Comment on above: Order Comment: Speci men Type: BLOOD SPECIMENOrdering Facility: [facility] Address: [address] [place] [address] Performed By: #### S ERIMM ####[facility] LABCLIA [id number] [place] [address] [place] KAPPA/EMERY,FREE,SERon 2024 Immunoglobulin light chains.kappa.free (S) [Mass/Vol] 29.3 mg/L High 3.3-19.4 [facility] Comment on above: Order Comment: Speci men Type: BLOOD SPECIMENOrdering Facility: [facility] Address: [address] [place] [address] Result Comment: Rare ly, increased serum free light chains levels may not be detected or accurately quantified due to prozone phenomenon or in high viscosity samples using this immunoturbidimetric assay. Correlation with other laboratory results and clinical findings is recommended.The [place] Free Light Chain was performed using the Binding Site [employer] immunoturbidimetric method. Result obtained with different assay methods or kits cannot be used interchangeably. Performed By: #### K LFRS ####[facility] LABIA [id number] [place] [address] [place] Immunoglobulin light chains.kappa/Immunoglob ulin light chains.lambda (S) [Mass ratio] 1.72 High 0.26-1.65 [facility] Comment on above: Order Comment: Speci men Type: BLOOD SPECIMENOrdering Facility: [facility] Address: [address] [place] [address] Performed By: #### K LFRS ####[facility] LABCLIA [id number] [place] [address] [place] Immunoglobulin light chains.lambda.free [Mass/Vol] 17.0 mg/L Normal 5.7-26.3 [facility] Comment on above: Order Comment: Speci men Type: BLOOD SPECIMENOrdering Facility: [facility] Address: [address] [place] [address] Result Comment: Rare ly, increased serum free light chains levels may not be detected or accurately quantified due to prozone phenomenon or in high viscosity samples using this immunoturbidimetric assay. Correlation with other laboratory results and clinical findings is recommended.The [place] Free Light Chain was performed using the Binding Site Optilite immunoturbidimetric method. Result obtained with different assay methods or kits cannot be used interchangeably. Performed By: #### K LFRS ####[facility] LABCLIA [id number] [place] [address] [place] LDH SerPl-cCncon 12-24-2024 LDH [Catalytic activity/Vol] 243 U/L High 135-225 [facility] Comment on above: Order Comment: Speci men Type: BLOOD SPECIMENOrdering Facility: [facility] Address: [address] [place] [address] Performed By: #### 2 4323-8, 2532-0 ####[facility] MARIA ESTHERSELECT [facility] [id number] [place] [address] [place] PROTEIN ELECTROPHORESIS SERU M (P)on 12-24-2024 Albumin [Mass/Vol] 4.30 g/dL Normal 3.43-5.41 [facility] Comment on above: Order Comment: Speci men Type: BLOOD SPECIMENOrdering Facility: [facility] Address: [address] [place] [address] Performed By: #### L [id number] ####[facility] LABCLIA [id number] [place] [address] [place] Alpha 1 globulin Elph [Mass/Vol] 0.32 g/dL Normal 0.18-0.43 [facility] Comment on above: Order Comment: Speci men Type: BLOOD SPECIMENOrdering Facility: [facility] Address: [address] [place] [address] Performed By: #### L [id number] ####[facility] LABIA [id number] [address] [place] Alpha 2 globulin Elph [Mass/Vol] 0.68 g/dL Normal 0.42-0.98 [facility] Comment on above: Order Comment: Speci men Type: BLOOD SPECIMENOrdering Facility: [facility] Address: [address] [place] [address] Performed By: #### L [id number] ####[facility] [id number] [place] [address] [place] Beta globulin Elph [Mass/Vol] 0.56 g/dL Low 0.61-1.17 [facility] Comment on above: Order Comment: Speci men Type: BLOOD SPECIMENOrdering Facility: [facility] Address: [address] [place] [address] Performed By: #### L [id number] ####[facility]IA [id number] [address] [place] Gamma globulin Elph [Mass/Vol] 0.23 g/dL Low 0.53-1.51 [facility] Comment on above: Order Comment: Speci men Type: BLOOD SPECIMENOrdering Facility: [facility] Address: [address] [place] [address] Performed By: #### L [id number] ####[facility]IA [id number] [place] [id number] [place] INTERPRETATION COMMENT FOR PROTEIN ELECTROPHORESIS Hypogammaglobulinemia is present, which can be seen in the setting of monoclonal gammopathy. If clinically indicated, monoclonal protein analysis and serum free light chain analysis are suggested to evaluate further for monoclonal gammopathy. Normal [facility] Comment on above: Order Comment: Speci men Type: BLOOD SPECIMENOrdering Facility: [facility] Address: [address] [place] [id number] Performed By: #### L [id number] ####[facility]IA [id number] [address] [address] [place] M-PROTEIN LOCATION Normal [facility] Comment on above: Order Comment: Speci men Type: BLOOD SPECIMENOrdering Facility: [facility] Address: [address] [place] [address] Result Comment: Not Applicable. Performed By: #### L [id number] ####[facility]IA [id number] [address] [place] [address] [place] Protein Fractions [Interp] No definitive M protein is identified on protein electrophoresis. Normal No definitive M protein is identified on protein electrophores is. [facility] Comment on above: Order Comment: Speci men Type: BLOOD SPECIMENOrdering Facility: [facility] Address: [address] [place] [address] Performed By: #### L [id number] ####[facility]IA [id number] [address] [address] [place] Protein.monoclonal Elph [Mass/Vol] 0.00 g/dL Normal <=0.00 [facility] Comment on above: Order Comment: Speci men Type: BLOOD SPECIMENOrdering Facility: [facility] Address: [address] [place] [address] Performed By: #### L [id number] ####[facility]IA [id number] [address] [place] [address] [place] SPE STAFF REVIEW Reviewed by Andi Mercedes MD, Ph.D ([id number]) Normal [facility] Comment on above: Order Comment: Speci men Type: BLOOD SPECIMENOrdering Facility: [facility] Address: [address] [place], [place] [address] Performed By: #### L [id number] ####[facility]IA [id number] [address] [address] [place] Prot SerPl-mCncon 12-24-2024 Protein [Mass/Vol] 6.1 g/dL Low 6.3-8.0 [facility] Comment on above: Order Comment: Speci men Type: BLOOD SPECIMENOrdering Facility: [facility] Address: [address] [place] [address] Performed By: #### 1 952-1, 2885-2 ####[facility] LABCLIA [id number] [place] [address] [place] CNOVSPon 12-03-2024 CNOVSP Normal [facility] B2 Microglob SerPl-mCncon Pdnk-3-Rbhabxhlielqz [Mass/Vol] 16.3 ug/mL High <3.1 [facility] Comment on above: Order Comment: Speci men Type: BLOOD SPECIMENOrdering Facility: [facility] Address: [address] [place] [address] Result Comment: Beta -2 Microglobulin test is performed using the [employer] immunoturbidimetric method. Results obtained with different methods or kits cannot be used interchangeably. Performed By: #### 1 952-1, 2885-2 ####[facility]IA [id number] [place] [address] [place] CBC W Auto Differential pane l (Bld)on 11-26-2024 Basophils (Bld) [#/Vol] 0.05 10*3/uL Normal <0.11 [facility] Comment on above: Order Comment: Speci men Type: BLOOD SPECIMENOrdering Facility: [facility] Address: [address] [place] [address] Performed By: #### 5 7021-8 ####[facility] MARIA ESTHER [facility] HOSPITALSARAHI [id number] [place] [address] [place] Basophils/100 WBC (Bld) 1.1 % Normal [facility] Comment on above: Order Comment: Speci men Type: BLOOD SPECIMENOrdering Facility: [facility] Address: [address] [place] [address] Performed By: #### 5 7021-8 ####[facility]ENTERNCLIA [id number] [place] [address] [place] Differential cell count method Nom (Bld) Auto Normal [facility] Comment on above: Order Comment: Speci men Type: BLOOD SPECIMENOrdering Facility: [facility] Address: [address] [place] [address] Performed By: #### 5 7021-8 ####[facility]ENTERNCBEAVER VAL[facility] [id number] [place] [address] [place] Eosinophils (Bld) [#/Vol] 0.13 10*3/uL Normal <0.46 [facility] Comment on above: Order Comment: Speci men Type: BLOOD SPECIMENOrdering Facility: [facility] Address: [address] [place] [address] Performed By: #### 5 7021-8 ####[facility]ENTERNCLIA [id number] [place] [address] [place] Eosinophils/100 WBC (Bld) 3.0 % Normal [facility] Comment on above: Order Comment: Speci men Type: BLOOD SPECIMENOrdering Facility: [facility] Address: [address] [place] [address] Performed By: #### 5 7021-8 ####[facility]ENTERNCLIA [id number] [place] [address] [place] Erythrocyte distribution width (RBC) [Ratio] 14.7 % Normal 11.5-15.0 [facility] Comment on above: Order Comment: Speci men Type: BLOOD SPECIMENOrdering Facility: [facility] Address: [address] [place] [address] Performed By: #### 5 7021-8 ####[facility]ENTERNCLI [id number] [place] [address] [place] Hematocrit (Bld) [Volume fraction] 30.2 % Low 39.0-51.0 [facility] Comment on above: Order Comment: Speci men Type: BLOOD SPECIMENOrdering Facility: [facility] Address: [address] [place] [address] Performed By: #### 5 7021-8 ####[facility] CENTERSARAHI [id number] [place] [address] [place] Hemoglobin (Bld) [Mass/Vol] 9.9 g/dL Low 13.0-17.0 [facility] Comment on above: Order Comment: Speci men Type: BLOOD SPECIMENOrdering Facility: [facility] Address: [address] [place] [address] Performed By: #### 5 7021-8 ####[facility] CENTERFRANCISCODinorah [id number] [place] [address] [place] Immature granulocytes (Bld) [#/Vol] 0.04 10*3/uL Normal <0.10 [facility] Comment on above: Order Comment: Speci men Type: BLOOD SPECIMENOrdering Facility: [facility] Address: [address] [place] [address] Performed By: #### 5 7021-8 ####[facility] CENTERSARAHI [id number] [place] [address] [place] Immature granulocytes/100 WBC (Bld) 0.9 % Normal [facility] Comment on above: Order Comment: Speci men Type: BLOOD SPECIMENOrdering Facility: [facility] Address: [address] [place] [address] Performed By: #### 5 7021-8 ####[facility]ENTERNCLI [id number] [place] [address] [place] Lymphocytes (Bld) [#/Vol] 0.57 10*3/uL Low 1.00-4.00 [facility] Comment on above: Order Comment: Speci men Type: BLOOD SPECIMENOrdering Facility: [facility] Address: [address] [place] [address] Performed By: #### 5 7021-8 ####[facility] [id number] [place] [address] [place] Lymphocytes/100 WBC (Bld) 13.0 % Normal [facility] Comment on above: Order Comment: Speci men Type: BLOOD SPECIMENOrdering Facility: [facility] Address: [address] [place] [address] Performed By: #### 5 7021-8 ####[facility] [id number] [place] [address] [place] MCH (RBC) [Entitic mass] 34.6 pg High 26.0-34.0 [facility] Comment on above: Order Comment: Speci men Type: BLOOD SPECIMENOrdering Facility: [facility] Address: [address] [place] [address] Performed By: #### 5 7021-8 ####[facility] [id number] [place] [address] [place] MCHC (RBC) [Mass/Vol] 32.8 g/dL Normal 30.5-36.0 [facility] Comment on above: Order Comment: Speci men Type: BLOOD SPECIMENOrdering Facility: [facility] Address: [address] [place] [address] Performed By: #### 5 7021-8 ####[facility]ENTERNCBEAV[facility] [id number] [place] [address] [place] MCV (RBC) [Entitic vol] 105.6 fL High 80.0-100.0 C [facility] Comment on above: Order Comment: Speci men Type: BLOOD SPECIMENOrdering Facility: [facility] Address: [address] [place] [address] Performed By: #### 5 7021-8 ####[facility] MILLTOWNCLIA [id number] [place] [address] [place] Monocytes (Bld) [#/Vol] 0.83 10*3/uL Normal <0.87 [facility] Comment on above: Order Comment: Speci men Type: BLOOD SPECIMENOrdering Facility: [facility] Address: [address] [place] [address] Performed By: #### 5 7021-8 ####[facility] MILLWNCLIA [id number] [place] [address] [place] Monocytes/100 WBC (Bld) 19.0 % Normal [facility] Comment on above: Order Comment: Speci men Type: BLOOD SPECIMENOrdering Facility: [facility] Address: [address] [place] [address] Performed By: #### 5 7021-8 ####[facility]ENTERNCLIA [id number] [place] [address] [place] Neutrophils (Bld) [#/Vol] 2.75 10*3/uL Normal 1.45-7.50 [facility] Comment on above: Order Comment: Speci men Type: BLOOD SPECIMENOrdering Facility: [facility] Address: [address] [place] [address] Performed By: #### 5 7021-8 ####[facility] MILLTOWNCLIA [id number] [place] [address] [place] Neutrophils/100 WBC (Bld) 63.0 % Normal [facility] Comment on above: Order Comment: Speci men Type: BLOOD SPECIMENOrdering Facility: [facility] Address: [address] [place] [address] Performed By: #### 5 7021-8 ####[facility] MILLTOWNCLIA [id number] [place] [address] [place] Nucleated RBC (Bld) [#/Vol] 10*3/uL Normal <0.01 [facility] Comment on above: Order Comment: Speci men Type: BLOOD SPECIMENOrdering Facility: [facility] Address: [address] [place] [address] Performed By: #### 5 7021-8 ####[facility] CENTERFRANCISCOCARMELINA [id number] [place] [address] [place] Nucleated RBC/100 WBC (Bld) [Ratio] 0.0 /100 WBC Normal [facility] Comment on above: Order Comment: Speci men Type: BLOOD SPECIMENOrdering Facility: [facility] Address: [address] [place] [address] Performed By: #### 5 7021-8 ####[facility] CENTERNCDinorah [id number] [place] [address] [place] Platelet mean volume (Bld) [Entitic vol] 10.3 fL Normal 9.0-12.7 [facility] Comment on above: Order Comment: Speci men Type: BLOOD SPECIMENOrdering Facility: [facility] Address: [address] [place] [address] Performed By: #### 5 7021-8 ####[facility]ENTERNCLIA [id number] [place] [address] [place] Platelets (Bld) [#/Vol] 134 10*3/uL Low 150-400 [facility] Comment on above: Order Comment: Speci men Type: BLOOD SPECIMENOrdering Facility: [facility] Address: [address] [place] [address] Performed By: #### 5 7021-8 ####[facility]ENTERNCLIA [id number] [place] [address] [place] RBC (Bld) [#/Vol] 2.86 10*6/uL Low 4.20-6.00 [facility] Comment on above: Order Comment: Speci men Type: BLOOD SPECIMENOrdering Facility: [facility] [facility] Address: [address] [place] [address] Performed By: #### 5 7021-8 ####[facility] [id number] [place] [address] [place] WBC (Bld) [#/Vol] 4.37 10*3/uL Normal 3.70-11.00 [facility] Comment on above: Order Comment: Speci men Type: BLOOD SPECIMENOrdering Facility: [facility] Address: [address] [place] [address] Performed By: #### 5 7021-8 ####[facility] [id number] [place] [address] [place] Comprehensive metabolic 2000 panelon 11-26-2024 Albumin [Mass/Vol] 4.3 g/dL Normal 3.9-4.9 [facility] Comment on above: Order Comment: Speci men Type: BLOOD SPECIMENOrdering Facility: [facility] Address: [address] [place] [address] Performed By: #### 2 4323-8, 2532-0 ####[facility] [id number] [place] [address] [place] ALP [Catalytic activity/Vol] 136 U/L High 38-113 [facility] Comment on above: Order Comment: Speci men Type: BLOOD SPECIMENOrdering Facility: [facility] Address: [address] [place] [address] Performed By: #### 2 4323-8, 2532-0 ####[facility] [id number] [place] [address] [place] ALT [Catalytic activity/Vol] 23 U/L Normal 10-54 [facility] Comment on above: Order Comment: Speci men Type: BLOOD SPECIMENOrdering Facility: [facility] Address: [address] [place] [address] Performed By: #### 2 4323-8, 2531-0 ####[facility] MARIA ESTHER BLANCO [id number] [place] [address] [place] Anion gap [Moles/Vol] 13 mmol/L Normal 8-15 [facility] Comment on above: Order Comment: Speci men Type: BLOOD SPECIMENOrdering Facility: [facility] Address: [address] [place] [address] Performed By: #### 2 4323-8, 2531-0 ####[facility] [id number] [place] [address] [place] AST [Catalytic activity/Vol] 30 U/L Normal 14-40 [facility] Comment on above: Order Comment: Speci men Type: BLOOD SPECIMENOrdering Facility: [facility] Address: [address] [place] [address] Performed By: #### 2 4323-8, 2531-0 ####[facility] MARIA ESTHER MANJULAAPOLINAR [id number] [place] [address] [place] Bilirubin [Mass/Vol] 0.3 mg/dL Normal 0.2-1.3 [facility] Comment on above: Order Comment: Speci men Type: BLOOD SPECIMENOrdering Facility: [facility] Address: [address] [place] [address] Performed By: #### 2 4323-8, 2532-0 ####[facility]ENTERDAISYA [id number] [place] [address] [place] Calcium [Mass/Vol] 9.7 mg/dL Normal 8.5-10.2 [facility] Comment on above: Order Comment: Speci men Type: BLOOD SPECIMENOrdering Facility: [facility] Address: [address] [place], [place] [address] Performed By: #### 2 4323-8, 2-0 ####[facility] MANJULAWNCLIA [id number] [place] [address] [place] Chloride [Moles/Vol] 101 mmol/L Normal 98-107 [facility] Comment on above: Order Comment: Speci men Type: BLOOD SPECIMENOrdering Facility: [facility] Address: [address] [place] [address] Performed By: #### 2 4323-8, 2-0 ####[facility] HOSPITALLIA [id number] [place] [address] [place] CO2 [Moles/Vol] 28 mmol/L Normal 22-30 [facility] Comment on above: Order Comment: Speci men Type: BLOOD SPECIMENOrdering Facility: [facility] Address: [address] [place] [address] Performed By: #### 2 4323-8, 2532-0 ####[facility] [id number] [place] [address] [place] Creatinine [Mass/Vol] 3.96 mg/dL High 0.73-1.22 [facility] Comment on above: Order Comment: Speci men Type: BLOOD SPECIMENOrdering Facility: [facility] Address: [address] [place] [address] Performed By: #### 2 4323-8, 2532-0 ####[facility] HOSPITALLIA [id number] [place] [address] [place] [facility] Creatinine and Glomerular filtration rate.predicted panel (S/P/Bld) 15 mL/min/1.73m??? Low >=60 [facility] Comment on above: Order Comment: Speci men Type: BLOOD SPECIMENOrdering Facility: [facility] Address: [address] [place] [address] Result Comment: Radha mated Glomerular Filtration Rate (eGFR) is calculated using the 2020 CKD-EPI creatinine equation. This equation utilizes serum creatinine, sex, and age as parameters. The creatinine assay has traceable calibration to isotope dilution-mass spectrometry. Refer to KDIGO guidelines for clinical interpretation. In patients with unstable renal function, e.g. those with acute kidney injury, the eGFR may not accurately reflect actual GFR. Performed By: #### 2 4323-8, 2531-0 ####[facility] BEACHESWFRANCISCOLIA [id number] [place] [address] [place] Glucose [Mass/Vol] 99 mg/dL Normal 74-99 [facility] Comment on above: Order Comment: Jasmina allen Type: BLOOD SPECIMENOrdering Facility: [facility] Address: [address] [place] [address] Result Comment: The [place] Diabetes Association (ADA) provides guidance for cutoff values for fasting glucose and random glucose. The ADA defines fasting as no caloric intake for at least 8 hours. Fasting plasma glucose results between 100 to 125 mg/dL indicate increased risk for diabetes (prediabetes).Fasting plasma glucose results greater than or equal to 126 mg/dL meet the criteria for diagnosis of diabetes. In the absence of unequivocal hyperglycemia, results should be confirmed by repeat testing. In a patient with classic symptoms of hyperglycemia or hyperglycemic crisis, random plasma glucose results greater than or equal to 200 mg/dL meet the criteria for diagnosis of diabetes.Reference: Standards of Medical Care in Diabetes 2016, [place] [employer] Association. Diabetes Care. 2016.39(Suppl 1). Performed By: #### 2 43238, 0 ####[facility] BEACHESWNCLIA [id number] [place] [address] [place] Potassium [Moles/Vol] 3.8 mmol/L Normal 3.7-5.1 [facility] Comment on above: Order Comment: Jasmina allen Type: BLOOD SPECIMENOrdering Facility: [facility] Address: [address] [place] [address] Performed By: #### 2 4323-8, 2531-0 ####[facility] CENTERFRANCISCODinorah [id number] [place] [address] [place] Protein [Mass/Vol] 6.1 g/dL Low 6.3-8.0 [facility] Comment on above: Order Comment: Speci men Type: BLOOD SPECIMENOrdering Facility: [facility] Address: [address] [place] [address] Performed By: #### 2 4323-8, 2532-0 ####[facility] APOPKADinorah [id number] [place] [address] [place] Sodium [Moles/Vol] 142 mmol/L Normal 136-144 [facility] Comment on above: Order Comment: Speci men Type: BLOOD SPECIMENOrdering Facility: [facility] Address: [address] [place] [address] Performed By: #### 2 4323-8, 2532-0 ####[facility] [id number] [place] [address] [place] Urea nitrogen [Mass/Vol] 50 mg/dL High 9-24 [facility] Comment on above: Order Comment: Speci men Type: BLOOD SPECIMENOrdering Facility: [facility] Address: [address] [place] [address] Performed By: #### 2 4323-8, 2532-0 ####[facility] HOSPITALCARMELINA [id number] [place] [address] [place] IMMUNOFIXATION SCREEN, SERUM on 11-26-2024 INTERPRETATION (MPA) Normal [facility] Comment on above: Order Comment: Speci men Type: BLOOD SPECIMENOrdering Facility: [facility] Address: [address] [place] [address] Performed By: #### I [facility] ####[facility] LABCLIA [id number] [place] [address] [place] MPA RESULT A poorly defined reg ion of restricted mobility is present that may represent an M protein. Abnormal No M protein is identified. [facility] Comment on above: Order Comment: Speci men Type: BLOOD SPECIMENOrdering Facility: [facility] Address: [address] [place], [place] [address] Performed By: #### I FESC ####[facility] LABCLIA [id number] [address] [place] [address] [facility] OF [place] STAFF REVIEW (MPA) Reviewed by Leticia Amador MD Normal [facility] Comment on above: Order Comment: Speci men Type: BLOOD SPECIMENOrdering Facility: [facility] Address: [address] [place] [address] Performed By: #### I FES ####[facility] LABCLIA [id number] [address] [place] [address] [place] IMMUNOGLOBULINS,IGG,IGA,IGMo n 11-26-2024 IgA [Mass/Vol] 17 mg/dL Low 70-400 [facility] Comment on above: Order Comment: Speci men Type: BLOOD SPECIMENOrdering Facility: [facility] Address: [address] [place], [place] [address] Performed By: #### S ERIMM ####[facility] LABCLIA [id number] [address] [place] [address] [place] IgG [Mass/Vol] 283 mg/dL Low 700-1600 [facility] Comment on above: Order Comment: Speci men Type: BLOOD SPECIMENOrdering Facility: [facility] Address: [address] [place], [place] [address] Performed By: #### S ERIMM ####[facility] LABCLIA [id number] [address] [address] [place] IgM [Mass/Vol] 33 mg/dL Low 40-230 [facility] Comment on above: Order Comment: Speci men Type: BLOOD SPECIMENOrdering Facility: [facility] Address: [address] [place], [place] [address] Performed By: #### S ERIMM ####[facility] LABCL[facility] [id number] [place] [address] [place] KAPPA/EMERY,FREE,SERon 2024 Immunoglobulin light chains.kappa.free (S) [Mass/Vol] 31.5 mg/L High 3.3-19.4 [facility] Comment on above: Order Comment: Speci men Type: BLOOD SPECIMENOrdering Facility: [facility] Address: [address] [place] [address] Result Comment: Rare ly, increased serum free light chains levels may not be detected or accurately quantified due to prozone phenomenon or in high viscosity samples using this immunoturbidimetric assay. Correlation with other laboratory results and clinical findings is recommended.The [place] Free Light Chain was performed using the Binding Site Optilite immunoturbidimetric method. Result obtained with different assay methods or kits cannot be used interchangeably. Performed By: #### K LFRS ####[facility] LABCL[facility] [id number] [place] [address] [place] Immunoglobulin light chains.kappa/Immunoglob ulin light chains.lambda (S) [Mass ratio] 1.91 High 0.26-1.65 [facility] Comment on above: Order Comment: Speci men Type: BLOOD SPECIMENOrdering Facility: [facility] Address: [address] [place] [address] Performed By: #### K LFRS ####[facility] [id number] [place] [address] [place] Immunoglobulin light chains.lambda.free [Mass/Vol] 16.5 mg/L Normal 5.7-26.3 [facility] Comment on above: Order Comment: Speci men Type: BLOOD SPECIMENOrdering Facility: [facility] Address: [address] [place] [address] Result Comment: Rare ly, increased serum free light chains levels may not be detected or accurately quantified due to prozone phenomenon or in high viscosity samples using this immunoturbidimetric assay. Correlation with other laboratory results and clinical findings is recommended.The [place] Free Light Chain was performed using the Binding Site Optilite immunoturbidimetric method. Result obtained with different assay methods or kits cannot be used interchangeably. Performed By: #### K LFRS ####[facility] [id number] [place] [address] [place] LDH SerPl-cCncon 11-26-2024 LDH [Catalytic activity/Vol] 244 U/L High 135-225 [facility] Comment on above: Order Comment: Speci men Type: BLOOD SPECIMENOrdering Facility: [facility] Address: [address] [place] [address] Performed By: #### 2 4323-8, 2532-0 ####[facility] [id number] [place] [address] [place] PROTEIN ELECTROPHORESIS SERU M (P)on 11-26-2024 Albumin [Mass/Vol] 3.86 g/dL Normal 3.43-5.41 [facility] Comment on above: Order Comment: Speci men Type: BLOOD SPECIMENOrdering Facility: [facility] Address: [address] [place] [address] Performed By: #### L [id number] ####[facility] [id number] [place] [address] [place] Alpha 1 globulin Elph [Mass/Vol] 0.32 g/dL Normal 0.18-0.43 [facility] Comment on above: Order Comment: Speci men Type: BLOOD SPECIMENOrdering Facility: [facility] Address: [address] [place] [address] Performed By: #### L [id number] ####[facility] [id number] [address] [place] Alpha 2 globulin Elph [Mass/Vol] 0.67 g/dL Normal 0.42-0.98 [facility] Comment on above: Order Comment: Speci men Type: BLOOD SPECIMENOrdering Facility: [facility] Address: [address] [place] [address] Performed By: #### L [id number] ####[facility] [id number] [place] [address] [place] Beta globulin Elph [Mass/Vol] 0.54 g/dL Low 0.61-1.17 [facility] Comment on above: Order Comment: Speci men Type: BLOOD SPECIMENOrdering Facility: [facility] Address: [address] [place] [address] Performed By: #### L [id number] ####[facility] [id number] [address] [place] Gamma globulin Elph [Mass/Vol] 0.22 g/dL Low 0.53-1.51 [facility] Comment on above: Order Comment: Speci men Type: BLOOD SPECIMENOrdering Facility: [facility] Address: [address] [place] [address] Performed By: #### L [id number] ####[facility] [id number] [address] INTERPRETATION COMMENT FOR PROTEIN ELECTROPHORESIS Hypogammaglobulinemia is present, which can be seen in the setting of monoclonal gammopathy. If clinically indicated, monoclonal protein analysis and serum free light chain analysis are suggested to evaluate further for monoclonal gammopathy. Normal [facility] Comment on above: Order Comment: Speci men Type: BLOOD SPECIMENOrdering Facility: [facility] Address: [address] [place] [address] Performed By: #### L [id number] ####[facility]IA [id number] [address] [place] M-PROTEIN LOCATION Normal [facility] Comment on above: Order Comment: Speci men Type: BLOOD SPECIMENOrdering Facility: [facility] Address: [address] [place] [address] Result Comment: Not Applicable. Performed By: #### L [id number] ####[facility] LABCLIA [id number] [address] [address] [place] Protein Fractions [Interp] No definitive M protein is identified on protein electrophoresis. Normal No definitive M protein is identified on protein electrophores is. [facility] Comment on above: Order Comment: Speci men Type: BLOOD SPECIMENOrdering Facility: [facility] Address: [address] [place] [address] Performed By: #### L [id number] ####[facility] [id number] [place] [address] [place] Protein.monoclonal Elph [Mass/Vol] 0.00 g/dL Normal <=0.00 [facility] Comment on above: Order Comment: Speci men Type: BLOOD SPECIMENOrdering Facility: [facility] Address: [address] [place] [address] Performed By: #### L [id number] ####[facility] [id number] [place] [address] [place] SPE STAFF REVIEW Reviewed by Devora Cifuentes M.D., Ph.D Normal [facility] Comment on above: Order Comment: Speci men Type: BLOOD SPECIMENOrdering Facility: [facility] Address: [address] [place] [address] Performed By: #### L [id number] ####[facility] [id number] [place] [address] [place] Prot SerPl-mCncon 11-26-2024 Protein [Mass/Vol] 5.6 g/dL Low 6.3-8.0 [facility] Comment on above: Order Comment: Speci men Type: BLOOD SPECIMENOrdering Facility: [facility] Address: [address] [place] [address] Performed By: #### 1 952-1, 2885-2 ####[facility] [id number] [address] [address] [place] CNPNon 11-22-2024 CNPN Normal [facility] MR/BMS.BVSon 11-07-2024 MR/BMS.BVS [facility] Surgery [address] [place] [address] OFFICE VISIT Date of Service: 11/07/24 MR#: [id number] Acct: [id number] Name: EDGAR HENDERSON Rep #: [id number] : 1950 Provider: Dr. Alvarado Brody MD Age/Sex: 74/M Location[place] [facility] Status: Signed Intake Vital Signs 12/18/23 09:54 11/07/24 14:28 Height 5 ft 8 in Weight: 120 lb BP 121/68 H Blood Pressure Location Lt brachial Position Sitting Respiration 16 Pulse 79 Pulse Source Monitor Temp 97.8 F Temp Source Temporal Pulse Oximetry (%) 98 Oxygen Delivery Method room air Intake Visit Reasons: Discuss vein mapping Is patient in pain?: No Allergies No Known Allergies Allergy (Verified 11/07/24 14:29) Medications ???Medication ???Instructions ???Recorded ???Confirmed ???Type acyclovir 200 mg capsule 200 mg PO TID 09/05/24 11/07/24 Hi story atorvastatin 20 mg tablet 20 mg PO QDAY 09/05/24 11/07/24 Hi story calcium acetate 667 mg tablet 667 mg PO TID 09/05/24 11/07/24 Hi story finasteride 5 mg tablet 5 mg PO QDAY 09/05/24 11/07/24 His tory zanubrutinib 80 mg capsule 160 mg PO BID 09/05/24 11/07/24 Hi story (Brukinsa) Have you fallen in the past year?: Yes PFSH Medical History Amyloidosis ( 2022) Lymphoma ( 2022) Kidney disease Non-smoker Anemia Exertional dyspnea Acute kidney injury Guttate psoriasis BPH (benign prostatic hyperplasia) Surgical History History of colonoscopy ( 06/05/18) History of bilateral inguinal hernia repair ( 2003) Family History Father Heart disease Pacemaker Cancer hodgkins Sister Cancer non hodgkins Social History Smoking Status: Never smoker HPI HPI HPI: EDGAR HENDERSON, is a 74 M who presents to the office today for further discussions of AV access options. He currently completes dialysis via a right tunneled IJ catheter which has been functioning without concerns for infection or occlusion. He has had vein mapping and wishes to discuss his options. He has significant fear of needles and cannulations in his not eager for creation of either graft or fistula. He has researched dialysis and fistula is extensively and has multiple very insightful questions that we discussed thoroughly for 65 minutes. ROS General General: Yes fatigue and weakness; No weight change, appetite, colon cancer or breast cancer HEENT HEENT: Yes hoarseness; No difficulty swallowing, eye injury, eye surgery or swollen glands Endo Endocrine: Yes cold intolerance; No thyroid disease, diabetes mellitus, thyroid cancer, Hair loss or heat intolerance Skin Skin: No rash or changing moles Musc Musculoskeletal: No back problems, arthritis, rheumatoid arthritis, gout or joint pain Cardio Cardiovascular: No murmur, pacemaker, heart disease, atrial fibrillation, high blood pressure, heart attack, heart stent, palpitations, shortness of breat with exertion or chest pain Psych Psychiatric: No depression, anxiety or hearing voices Resp Respiratory: No shortness of breath, No sleep apnea, No cough, No COPD, No asthma, No emphysema and No wheezing Gastro Gastrointestinal: No abdominal pain, No nausea or vomiting, No diarrhea, No constipation, No blood in stool, No acid reflux, No hemorrhoids, No ulcers, No gallbladder problem and No black,tarry stools Stef Hematologic: No blood thinners, No blood disorders, No bleeding, Yes anemia and No blood clots Neuro Neurologic: No system reviewed and no additional complaints, except as documented, No as per HPI, No abnormal gait, No abnormal hearing, No abnormal movements, No abnormal speech, No behavioral changes, No burning sensations, No confusion, No convulsions, No disequilibrium, No dizziness, Yes localized weakness, No frequent falls, No headache(s), Yes lack of coordination, No loss of vision, No memory loss, Yes numbness, No other visual disturbances, No radicular pain, No restless legs, No sensory deficit, No syncope, Yes tingling, No tremor(s), Yes weakness and No other Exam Const General: cooperative, healthy appearing, comfortable, no acute distress and well developed Nutritional Appearance: well nourished Orientation: alert, awake and oriented x3 HENMT Head: normocephalic and atraumatic Ears: hearing grossly normal bilaterally Nose: external nose normal Eyes General: appearance normal, both eyes and all related structures EOM: EOM intact bilaterally Neck Neck: normal visual inspection, full ROM and trachea midline Resp Effort Inspection: normal respiratory effort, able to speak in c (more content not included)... Normal [facility] CNOVon 10-10-2024 CNOV Normal [facility] [id number] 10-10-2024 ECG01 Normal [facility] Dialysis Vein Map PRE-OP JENNIFER ATon 10-08-2024 Dialysis Vein Map PRE-OP BILAT [facility] [address] [place] [address] Dialysis Vein Map PRE-OP BILAT 10/08/24 1246 MR#: [id number] Acct: [id number] Name: EDGAR HENDERSON Rep #: [id number] : 1950 74 From: Alvarado Brody MD Attending Dr: PEGGY Hall Status: REG CLI Ordering Dr: Shannen Park Date: 10/08/24 Location: [facility] Sex: M C Admitted: Reason For Study: Preop Fistula Creation Right Lower Arm Left Arm Radial Artery measures 0.22x0.28 cm with a Brachial Artery messures 0.38x0.43 cm with a velocity of 74.0 cm/s. velocity of 95.7 cm/s. Right Arm Cephalic Vein at distal forearm measures Brachial Artery measures 0.40x0.40cm with a 0.26c0.30 cm. velocity of 96.1 cm/s. Cephalic Vein at mid forearm measures Cephalic Vein at distal forearm measures 0.13x0.21 cm. 0.18x0.28 cm. Cephalic Vein proximal forearm measures Cephalic Vein at mid forearm measures 0.18x0.16 cm. 0.21x0.25 cm. Cephalic Vein distal upper arm measures Cephalic Vein proximal forearm measures 0.11x0.17 cm. 0.22x0.24 cm. Cephalic Vein at mid upper arm measures Cephalic Vein distal upper arm measures 0.27x0.34 cm. 0.13x0.20 cm. Cephalic Vein at proximal upper arm measures Cephalic Vein at mid upper arm measures 0.14x0.22 cm. 0.19x0.23 cm. Proximal Basilic vein measures 0.53x0.55 cm. Cephalic Vein at proximal upper arm measures Mid Basilic vein measures 0.50x0.56 cm. 0.18x0.25 cm. Distal Basilic vein measures 0.17x0.21 cm. Proximal Basilic vein measures 0.35x0.43 cm. Left Lower Arm Mid Basilic vein measures 0.23x0.30 cm. Radial Artery measures 0.18x0.21 cm with a Distal Basilic vein measures 0.23x0.32 cm. velocity of 86.9 cm/s. VL/Dialysis Vein Map PRE-OP BILAT Interpretation Summary Bilateral upper extremity arteries patent with normal waveforms and measurements above. Bilateral upper extremity veins patent with measurements above. Left cephalic vein with wall thickening. Ordering Physician: Shannen Park Referring Physician: Shannen Park Performed By: Paresh Aguilar RVT and Student ??? 10/08/24 5356 Date Alvarado Brody MD CC: PEGGY Hall; Dr. Jose Miguel Herbert MD Date Dictated: 10/08/24 1246 Date Transcribed: 10/08/24 1625 Rn Sane: Signed Normal [facility] MR/BMSKade 09-05-2024 MR/BMS.BVS [facility] Vascular Surgery [address] [place] [address] OFFICE VISIT Date of Service: 09/05/24 MR#: [id number] Acct: [id number] Name: EDGAR HENDERSON Rep #: [id number] : 1950 Provider: PEGGY Hall Age/Sex: 73/M Location: BMS.BVS Status: Signed Intake Vital Signs 12/18/23 09:54 09/05/24 10:22 Height 5 ft 8 in Weight: 115 lb BP 97/60 Blood Pressure Location Lt radial Position Sitting Respiration 16 Pulse 84 Pulse Source Monitor Temp 97.8 F Temp Source Temporal Pulse Oximetry (%) 100 Oxygen Delivery Method room air Intake Visit Reasons: Discuss Fistula Creation Procedure Chief Complaint: establish care Is patient in pain?: No Allergies No Known Allergies Allergy (Verified 09/05/24 10:25) Medications ???Medication ???Instructions ???Recorded ???Confirmed ???Type acyclovir 200 mg capsule 200 mg PO TID 09/05/24 09/05/24 History atorvastatin 20 mg tablet 20 mg PO QDAY 09/05/24 09/05/24 History calcium acetate 667 mg tablet 667 mg PO TID 09/05/24 09/05/24 History finasteride 5 mg tablet 5 mg PO QDAY 09/05/24 09/05/24 History zanubrutinib 80 mg capsule 160 mg PO BID 09/05/24 09/05/24 History (Brukinsa) Have you fallen in the past year?: Yes [facility] Medical History (Updated 09/05/24 @ 11:03 by PEGGY Hall) Amyloidosis ( 2022) Lymphoma ( 2022) Kidney disease Non-smoker Anemia Exertional dyspnea Acute kidney injury Guttate psoriasis BPH (benign prostatic hyperplasia) Surgical History History of colonoscopy ( 06/05/18) History of bilateral inguinal hernia repair ( 2003) Family History Father Heart disease Pacemaker Cancer hodgkins Sister Cancer non hodgkins Social History Smoking Status: Never smoker HPI HPI HPI: EDGAR HENDERSON, is a 73 M who presents to the office today for consideration of dialysis access creation as referred from [facility] Dr. Jenkins. He has been on dialysis since December 2023, currently via R IJ tunneled catheter. He reports that in April 2023 he had abnormal routine blood work including signs of renal insufficiency which ultimately led him to be diagnosed with lymphoma and amyloidosis. He received chemotherapy for his lymphoma and was determined to be in remission in April 2024, he does still take an oral immunotherapy medication. Unfortunately, due to amyloidosis he did progress to kidney failure. He reports that they do not anticipate any renal recovery. He received chemo via IV, no PICC or port. He denies any history of pacemaker/ICD, lymph node dissection, radiation, arm/clavicle injury. He is R hand dominant. He has not had any infection or other issues with his R IJ catheter. He hates needles and is very uncertain that he would tolerate the repetitive cannulation associated with dialysis via fistula; states he barely tolerated the IVs for his chemo treatments. He is not certain that he will ultimately want to proceed with fistula creation, thinks he would prefer to keep the catheter and he fully understands the associated risks of long-term catheters such as infection. ROS General General: Yes weight change, fatigue and weakness; No appetite, colon cancer or breast cancer HEENT HEENT: No difficulty swallowing, eye injury, eye surgery, swollen glands or hoarseness Endo Endocrine: No thyroid disease, diabetes mellitus, thyroid cancer, Hair loss, heat intolerance or cold intolerance Skin Skin: No rash or changing moles Musc Musculoskeletal: No back problems, arthritis, rheumatoid arthritis, gout or joint pain Cardio Cardiovascular: No murmur, pacemaker, heart disease, atrial fibrillation, high blood pressure, heart attack, heart stent, palpitations, shortness of breat with exertion or chest pain Psych Psychiatric: No depression, anxiety or hearing voices Resp Respiratory: No shortness of breath, No sleep apnea, No cough, No COPD, No asthma, No emphysema and No wheezing Gastro Gastrointestinal: No abdominal pain, No nausea or vomiting, No diarrhea, No constipation, No blood in stool, No acid reflux, No hemorrhoids, No ulcers, No gallbladder problem and No black,tarry stools Stef Hematologic: No blood thinners, Yes blood disorders, No bleeding, Yes anemia and No blood clots Neuro Neurologic: No system reviewed and no additional complaints, except as documented, No as per HPI, No abnormal gait, No abnormal hearing, No abnormal movements, No abnormal speech, No behavioral changes, No burning sensations, No confusion, No convulsions, No disequilibrium, No dizziness, No localized weakness, No frequent falls, No headache(s) (more content not included)... Normal [facility] B2 Microglob SerPl-mCncon Yvsr-8-Gdgumbwpjzvil [Mass/Vol] 15.0 ug/mL High <3.1 [facility] Comment on above: Order Comment: Specderick allen Type: BLOOD SPECIMENOrdering Facility: [facility] Address: [address] [place] [address] Result Comment: Beta -2 Microglobulin test is performed using the [employer] immunoturbidimetric method. Results obtained with different methods or kits cannot be used interchangeably. Performed By: #### 1 952-1, 2885-2 ####[facility] LABCLIA [id number] [place] [address] [place] CBC W Auto Differential pane l (Bld)on 09-03-2024 Basophils (Bld) [#/Vol] 0.06 10*3/uL Normal <0.11 [facility] Comment on above: Order Comment: Jasmina allen Type: BLOOD SPECIMENOrdering Facility: [facility] Address: [address] [place] [address] Performed By: #### 5 7021-8 ####[facility] [id number] [place] [address] [place] Basophils/100 WBC (Bld) 1.1 % Normal [facility] Comment on above: Order Comment: Jasmina allen Type: BLOOD SPECIMENOrdering Facility: [facility] Address: [address] [place] [address] Performed By: #### 5 7021-8 ####[facility]IT[facility] [id number] [place] [address] [place] Differential cell count method Nom (Bld) Auto Normal [facility] Comment on above: Order Comment: Speci men Type: BLOOD SPECIMENOrdering Facility: [facility] Address: [address] [place] [address] Performed By: #### 5 7021-8 ####[facility] [id number] [place] [address] [place] Eosinophils (Bld) [#/Vol] 0.14 10*3/uL Normal <0.46 [facility] Comment on above: Order Comment: Speci men Type: BLOOD SPECIMENOrdering Facility: [facility] Address: [address] [place] [address] Performed By: #### 5 7021-8 ####[facility] [id number] [place] [address] [place] Eosinophils/100 WBC (Bld) 2.7 % Normal [facility] Comment on above: Order Comment: Speci men Type: BLOOD SPECIMENOrdering Facility: [facility] Address: [address] [place] [address] Performed By: #### 5 7021-8 ####[facility] [id number] [place] [address] [place] Erythrocyte distribution width (RBC) [Ratio] 17.1 % High 11.5-15.0 [facility] Comment on above: Order Comment: Speci men Type: BLOOD SPECIMENOrdering Facility: [facility] Address: [address] [place] [address] Performed By: #### 5 7021-8 ####[facility] [id number] [place] [address] [place] Hematocrit (Bld) [Volume fraction] 35.1 % Low 39.0-51.0 [facility] Comment on above: Order Comment: Speci men Type: BLOOD SPECIMENOrdering Facility: [facility] Address: [address] [place] [address] Performed By: #### 5 7021-8 ####[facility]ENTERNCLIA [id number] [place] [address] [place] Hemoglobin (Bld) [Mass/Vol] 11.5 g/dL Low 13.0-17.0 [facility] Comment on above: Order Comment: Speci men Type: BLOOD SPECIMENOrdering Facility: [facility] Address: [address] [place] [address] Performed By: #### 5 7021-8 ####[facility]ENTERNCA [id number] [place] [address] [place] Immature granulocytes (Bld) [#/Vol] 0.03 10*3/uL Normal <0.10 [facility] Comment on above: Order Comment: Speci men Type: BLOOD SPECIMENOrdering Facility: [facility] Address: [address] [place] [address] Performed By: #### 5 7021-8 ####[facility]ERNCLIA [id number] [place] [address] [place] Immature granulocytes/100 WBC (Bld) 0.6 % Normal [facility] Comment on above: Order Comment: Speci men Type: BLOOD SPECIMENOrdering Facility: [facility] Address: [address] [place] [address] Performed By: #### 5 7021-8 ####[facility]ENTERNCLIA [id number] [place] [address] [place] Lymphocytes (Bld) [#/Vol] 0.42 10*3/uL Low 1.00-4.00 [facility] Comment on above: Order Comment: Speci men Type: BLOOD SPECIMENOrdering Facility: [facility] Address: [address] [place] [address] Performed By: #### 5 7021-8 ####[facility] RADHANCCARMELINA [id number] [place] [address] [place] Lymphocytes/100 WBC (Bld) 8.0 % Normal [facility] Comment on above: Order Comment: Speci men Type: BLOOD SPECIMENOrdering Facility: [facility] Address: [address] [place] [address] Performed By: #### 5 7021-8 ####[facility] MANJULASANTA ANAFRANCISCOCARMELINA [id number] [place] [address] [place] MCH (RBC) [Entitic mass] 34.4 pg High 26.0-34.0 [facility] Comment on above: Order Comment: Speci men Type: BLOOD SPECIMENOrdering Facility: [facility] Address: [address] [place] [address] Performed By: #### 5 7021-8 ####[facility]ERNCLIA [id number] [place] [address] [place] MCHC (RBC) [Mass/Vol] 32.8 g/dL Normal 30.5-36.0 [facility] Comment on above: Order Comment: Speci men Type: BLOOD SPECIMENOrdering Facility: [facility] Address: [address] [place] [address] Performed By: #### 5 7021-8 ####[facility] MANJULASANTA ANANCLIA [id number] [place] [address] [place] MCV (RBC) [Entitic vol] 105.1 fL High 80.0-100.0 [facility] Comment on above: Order Comment: Speci men Type: BLOOD SPECIMENOrdering Facility: [facility] Address: [address] [place] [address] Performed By: #### 5 7021-8 ####[facility] CENTERFRANCISCOBEAVER [facility] [id number] [place] [address] [place] Monocytes (Bld) [#/Vol] 0.80 10*3/uL Normal <0.87 [facility] Comment on above: Order Comment: Speci men Type: BLOOD SPECIMENOrdering Facility: [facility] Address: [address] [place] [address] Performed By: #### 5 7021-8 ####[facility] [id number] [place] [address] [place] Monocytes/100 WBC (Bld) 15.2 % Normal [facility] Comment on above: Order Comment: Speci men Type: BLOOD SPECIMENOrdering Facility: [facility] Address: [address] [place] [address] Performed By: #### 5 7021-8 ####[facility] [id number] [place] [address] [place] Neutrophils (Bld) [#/Vol] 3.82 10*3/uL Normal 1.45-7.50 [facility] Comment on above: Order Comment: Speci men Type: BLOOD SPECIMENOrdering Facility: [facility] Address: [address] [place] [address] Performed By: #### 5 7021-8 ####[facility]OSPITALLIA [id number] [place] [address] [place] Neutrophils/100 WBC (Bld) 72.4 % Normal [facility] Comment on above: Order Comment: Speci men Type: BLOOD SPECIMENOrdering Facility: [facility] Address: [address] [place] [address] Performed By: #### 5 7021-8 ####[facility] HOSPITALLIA [id number] [place] [address] [place] Nucleated RBC (Bld) [#/Vol] 10*3/uL Normal <0.01 [facility] Comment on above: Order Comment: Speci men Type: BLOOD SPECIMENOrdering Facility: [facility] Address: [address] [place] [address] Performed By: #### 5 7021-8 ####[facility] MANJULAToniNCCARMELINA [id number] [place] [address] [place] Nucleated RBC/100 WBC (Bld) [Ratio] 0.0 /100 WBC Normal [facility] Comment on above: Order Comment: Speci men Type: BLOOD SPECIMENOrdering Facility: [facility] Address: [address] [place] [address] Performed By: #### 5 7021-8 ####[facility]ENTERNCLIA [id number] [place] [address] [place] Platelet mean volume (Bld) [Entitic vol] 10.0 fL Normal 9.0-12.7 [facility] Comment on above: Order Comment: Speci men Type: BLOOD SPECIMENOrdering Facility: [facility] Address: [address] [place] [address] Performed By: #### 5 7021-8 ####[facility]ERNCLIA [id number] [place] [address] [place] Platelets (Bld) [#/Vol] 148 10*3/uL Low 150-400 [facility] Comment on above: Order Comment: Speci men Type: BLOOD SPECIMENOrdering Facility: [facility] Address: [address] [place] [address] Performed By: #### 5 7021-8 ####[facility]ERNCLIA [id number] [place] [address] [place] RBC (Bld) [#/Vol] 3.34 10*6/uL Low 4.20-6.00 [facility] Comment on above: Order Comment: Speci men Type: BLOOD SPECIMENOrdering Facility: [facility] Address: [address] [place] [address] Performed By: #### 5 7021-8 ####[facility] MANJULASANTA ANANCLIA [id number] [place] [address] [place] WBC (Bld) [#/Vol] 5.27 10*3/uL Normal 3.70-11.00 [facility] Comment on above: Order Comment: Speci men Type: BLOOD SPECIMENOrdering Facility: [facility] Address: [address] [place] [address] Performed By: #### 5 7021-8 ####[facility]ENTERNCLIA [id number] [place] [address] [place] CNOVSPon 09-03-2024 CNOVSP Normal [facility] metabolic 2000 panelon 09-03-2024 Albumin [Mass/Vol] 4.4 g/dL Normal 3.9-4.9 [facility] Comment on above: Order Comment: Speci men Type: BLOOD SPECIMENOrdering Facility: [facility] Address: [address] [place] [address] Performed By: #### 2 532-0, 58523-9, 2777-1 ####[facility]ERNCLIA [id number] [place] [address] [place] ALP [Catalytic activity/Vol] 144 U/L High 38-113 [facility] Comment on above: Order Comment: Speci men Type: BLOOD SPECIMENOrdering Facility: [facility] Address: [address] [place] [address] Performed By: #### 2 532-0, 34327-8, 2777-1 ####[facility]ERNCL[facility] [id number] [place] [address] [place] ALT [Catalytic activity/Vol] 24 U/L Normal 10-54 [facility] Comment on above: Order Comment: Speci men Type: BLOOD SPECIMENOrdering Facility: [facility] Address: [address] [place], [place] [address] Performed By: #### 2 532-0, 40953-1, 2777-1 ####[facility] RADHANCPACSUALA [id number] [place] [address] [place] Anion gap [Moles/Vol] 13 mmol/L Normal 8-15 [facility] Comment on above: Order Comment: Speci men Type: BLOOD SPECIMENOrdering Facility: [facility] Address: [address] [place], [place] [address] Performed By: #### 2 532-0, 09061-1, 2777-1 ####[facility] CENTERNCPASCUALA [id number] [place] [address] [place] AST [Catalytic activity/Vol] 27 U/L Normal 14-40 [facility] Comment on above: Order Comment: Speci men Type: BLOOD SPECIMENOrdering Facility: [facility] Address: [address] [place], [place] [address] Performed By: #### 2 532-0, 87631-9, 2777-1 ####[facility] CENTERDAISYA [id number] [place] [address] [place] Bilirubin [Mass/Vol] 0.4 mg/dL Normal 0.2-1.3 [facility] Comment on above: Order Comment: Speci men Type: BLOOD SPECIMENOrdering Facility: [facility] Address: [address] [place], [place] [address] Performed By: #### 2 532-0, 22882-6, 2777-1 ####[facility]ERNCLIA [id number] [place] [address] [place] Calcium [Mass/Vol] 9.9 mg/dL Normal 8.5-10.2 [facility] Comment on above: Order Comment: Speci men Type: BLOOD SPECIMENOrdering Facility: [facility] Address: [address] [place] [address] Performed By: #### 2 532-0, 18199-9, 2777-1 ####[facility]ERNCLIA [id number] [place] [address] [place] Chloride [Moles/Vol] 99 mmol/L Normal 98-107 [facility] Comment on above: Order Comment: Speci men Type: BLOOD SPECIMENOrdering Facility: [facility] Address: [address] [place] [address] Performed By: #### 2 532-0, 57120-5, 2777-1 ####[facility] [id number] [place] [address] [place] CO2 [Moles/Vol] 31 mmol/L High 22-30 [facility] Comment on above: Order Comment: Speci men Type: BLOOD SPECIMENOrdering Facility: [facility] Address: [address] [place] [address] Performed By: #### 2 532-0, 82384-3, 2777-1 ####[facility] [id number] [place] [address] [place] Creatinine [Mass/Vol] 3.77 mg/dL High 0.73-1.22 [facility] Comment on above: Order Comment: Speci men Type: BLOOD SPECIMENOrdering Facility: [facility] Address: [address] [place] [address] Performed By: #### 2 532-0, 65529-2, 2777-1 ####[facility]ENTERNCLIA [id number] [place] [address] [place] Creatinine and Glomerular filtration rate.predicted panel (S/P/Bld) 16 mL/min/1.73m??? Low >=60 [facility] Comment on above: Order Comment: Speci men Type: BLOOD SPECIMENOrdering Facility: [facility] Address: [address] [id number] Result Comment: Radha mated Glomerular Filtration Rate (eGFR) is calculated using the 2020 CKD-EPI creatinine equation. This equation utilizes serum creatinine, sex, and age as parameters. The creatinine assay has traceable calibration to isotope dilution-mass spectrometry. Refer to KDIGO guidelines for clinical interpretation. In patients with unstable renal function, e.g. those with acute kidney injury, the eGFR may not accurately reflect actual GFR. Performed By: #### 2 532-0, 60505-7, 277- ####[facility] [id number] [place] [address] [place] Glucose [Mass/Vol] 69 mg/dL Low 74-99 [facility] Comment on above: Order Comment: Speci men Type: BLOOD SPECIMENOrdering Facility: [facility] Address: [address] [place] [address] Result Comment: The [place] Diabetes Association (ADA) provides guidance for cutoff values for fasting glucose and random glucose. The ADA defines fasting as no caloric intake for at least 8 hours. Fasting plasma glucose results between 100 to 125 mg/dL indicate increased risk for diabetes (prediabetes).Fasting plasma glucose results greater than or equal to 126 mg/dL meet the criteria for diagnosis of diabetes. In the absence of unequivocal hyperglycemia, results should be confirmed by repeat testing. In a patient with classic symptoms of hyperglycemia or hyperglycemic crisis, random plasma glucose results greater than or equal to 200 mg/dL meet the criteria for diagnosis of diabetes.Reference: Standards of Medical Care in Diabetes 2016, [place] [employer]. Diabetes Care. 2016.39(Suppl 1). Performed By: #### 2 532-0, 29155-1, 27703-18 ####[facility] [id number] [place] [address] [place] Potassium [Moles/Vol] 4.1 mmol/L Normal 3.7-5.1 [facility] Comment on above: Order Comment: Speci men Type: BLOOD SPECIMENOrdering Facility: [facility] Address: [address] [id number] Performed By: #### 2 532-0, 41774-3, 2777-1 ####[facility] MILLTOWNCLIA [id number] [place] [address] [place] Protein [Mass/Vol] 6.2 g/dL Low 6.3-8.0 [facility] Comment on above: Order Comment: Speci men Type: BLOOD SPECIMENOrdering Facility: [facility] Address: [address] [place] [address] Performed By: #### 2 532-0, 46317-5, 2777-1 ####[facility]CL[facility] [id number] [place] [address] [place] Sodium [Moles/Vol] 143 mmol/L Normal 136-144 [facility] Comment on above: Order Comment: Speci men Type: BLOOD SPECIMENOrdering Facility: [facility] Address: [address] [place], [place] [address] Performed By: #### 2 532-0, 78964-9, 2777-1 ####[facility]CL[facility] [id number] [place] [address] [place] Urea nitrogen [Mass/Vol] 48 mg/dL High 9-24 [facility] Comment on above: Order Comment: Speci men Type: BLOOD SPECIMENOrdering Facility: [facility] Address: [address] [place], [place] [address] Performed By: #### 2 532-0, 58581-8, 2777-1 ####[facility] CENTERNCLIA [id number] [place] [address] [place] IMMUNOFIXATION SCREEN, SERUM on 09-03-2024 INTERPRETATION (MPA) Normal [facility] Comment on above: Order Comment: Speci men Type: BLOOD SPECIMENOrdering Facility: [facility] Address: [address] [place], [place] [address] Performed By: #### I [facility] ####[facility] [id number] [place] [address] [place] MPA RESULT A poorly defined reg ion of restricted mobility is present that may represent an M protein. Abnormal No M protein is identified. [facility] Comment on above: Order Comment: Speci men Type: BLOOD SPECIMENOrdering Facility: [facility] Address: [address] [place] [address] Performed By: #### I FESC ####[facility] [id number] [address] OF [place] STAFF REVIEW (MPA) Reviewed by Devora Cifuentes M.D., Ph.D Normal [facility] Comment on above: Order Comment: Speci men Type: BLOOD SPECIMENOrdering Facility: [facility] Address: [address] [place] [address] Performed By: #### I FESC ####[facility] [id number] [place] [address] [place] IMMUNOGLOBULINS,IGG,IGA,IGMo n 09-03-2024 IgA [Mass/Vol] 18 mg/dL Low 70-400 [facility] Comment on above: Order Comment: Speci men Type: BLOOD SPECIMENOrdering Facility: [facility] Address: [address] [place] [address] Performed By: #### S ERIMM ####[facility] [id number] [place] [address] [place] IgG [Mass/Vol] 304 mg/dL Low 700-1600 [facility] Comment on above: Order Comment: Speci men Type: BLOOD SPECIMENOrdering Facility: [facility] Address: [address] [place] [address] Performed By: #### S ERIMM ####[facility] [id number] [place] [address] [place] IgM [Mass/Vol] 30 mg/dL Low 40-230 [facility] Comment on above: Order Comment: Speci men Type: BLOOD SPECIMENOrdering Facility: [facility] Address: [address] [place] [address] Performed By: #### S KEERTHI ####[facility] LABCLIA [id number] [place] [address] [place] KAPPA/EMERY,FREE,SERon 2023 Immunoglobulin light chains.kappa.free (S) [Mass/Vol] 31.3 mg/L High 3.3-19.4 [facility] Comment on above: Order Comment: Speci men Type: BLOOD SPECIMENOrdering Facility: [facility] Address: [address] [place] [address] Result Comment: Rare ly, increased serum free light chains levels may not be detected or accurately quantified due to prozone phenomenon or in high viscosity samples using this immunoturbidimetric assay. Correlation with other laboratory results and clinical findings is recommended.The [place] Free Light Chain was performed using the Binding Site Optilite immunoturbidimetric method. Result obtained with different assay methods or kits cannot be used interchangeably. Performed By: #### K LFRS ####[facility] [id number] [place] [address] [place] Immunoglobulin light chains.kappa/Immunoglob ulin light chains.lambda (S) [Mass ratio] 2.05 High 0.26-1.65 [facility] Comment on above: Order Comment: Speci men Type: BLOOD SPECIMENOrdering Facility: [facility] Address: [address] [place] [address] Performed By: #### K LFRS ####[facility] [id number] [place] [address] [place] Immunoglobulin light chains.lambda.free [Mass/Vol] 15.3 mg/L Normal 5.7-26.3 [facility] Comment on above: Order Comment: Speci men Type: BLOOD SPECIMENOrdering Facility: [facility] Address: [address] [place] [address] Result Comment: Rare ly, increased serum free light chains levels may not be detected or accurately quantified due to prozone phenomenon or in high viscosity samples using this immunoturbidimetric assay. Correlation with other laboratory results and clinical findings is recommended.The [place] Free Light Chain was performed using the Binding Site Optilite immunoturbidimetric method. Result obtained with different assay methods or kits cannot be used interchangeably. Performed By: #### K LFRS ####[facility] LABCLIA [id number] [place] [address] [place] LDH SerPl-cCncon 09-03-2024 LDH [Catalytic activity/Vol] 258 U/L High 135-225 [facility] Comment on above: Order Comment: Jasmina allen Type: BLOOD SPECIMENOrdering Facility: [facility] Address: [address] [place] [address] Result Comment: Hemo lysis present. The origin of the hemolysis, in vitro versus an in vivo hemolytic process, cannot be distinguished via this assay alone. In vitro hemolysis may lead to non-physiological (spurious) elevation in lactate dehydrogenase (LDH) results. Theresult should be interpreted in context of the clinical setting and other test results. Suggest reorder as clinically indicated. Performed By: #### 2 532-0, 71032-8, 2777-1 ####[facility] [id number] [place] [id number] [place] PROTEIN ELECTROPHORESIS SERU M (P)on 09-03-2024 Albumin [Mass/Vol] 4.05 g/dL Normal 3.43-5.41 [facility] Comment on above: Order Comment: Speci tiffany Type: BLOOD SPECIMENOrdering Facility: [facility] Address: [address] [place] [address] Performed By: #### L [id number] ####[facility] LABCLIA [id number] [place] [address] [place] Alpha 1 globulin Elph [Mass/Vol] 0.33 g/dL Normal 0.18-0.43 [facility] Comment on above: Order Comment: Speci men Type: BLOOD SPECIMENOrdering Facility: [facility] Address: [address] [place] [address] Performed By: #### L [id number] ####[facility] LABCLIA [id number] [place] [address] [place] Alpha 2 globulin Elph [Mass/Vol] 0.80 g/dL Normal 0.42-0.98 [facility] Comment on above: Order Comment: Speci men Type: BLOOD SPECIMENOrdering Facility: [facility] Address: [address] [place] [address] Performed By: #### L [id number] ####[facility] LABCLIA [id number] [place] [address] [place] Beta globulin Elph [Mass/Vol] 0.48 g/dL Low 0.61-1.17 [facility] Comment on above: Order Comment: Speci men Type: BLOOD SPECIMENOrdering Facility: [facility] Address: [address] [place] [address] Performed By: #### L [id number] ####[facility] LABCLIA [id number] [place] [address] [place] Gamma globulin Elph [Mass/Vol] 0.24 g/dL Low 0.53-1.51 [facility] Comment on above: Order Comment: Speci men Type: BLOOD SPECIMENOrdering Facility: [facility] Address: [address] [place] [address] Performed By: #### L [id number] ####[facility] LABCLIA [id number] [place] [address] [place] INTERPRETATION COMMENT FOR PROTEIN ELECTROPHORESIS Normal [facility] Comment on above: Order Comment: Speci men Type: BLOOD SPECIMENOrdering Facility: [facility] Address: [address] [place] [address] Performed By: #### L [id number] ####[facility] LABCLIA [id number] [place] [address] [place] M-PROTEIN LOCATION Normal [facility] Comment on above: Order Comment: Speci men Type: BLOOD SPECIMENOrdering Facility: [facility] Address: [address] [place] [address] Result Comment: Not Applicable. Performed By: #### L [id number] ####[facility] [id number] [place] [address] [place] Protein Fractions [Interp] An atypical region of restricted mobility is identified on protein electrophoresis. Abnormal No definitive M protein is identified on protein electrophores is. [facility] Comment on above: Order Comment: Speci men Type: BLOOD SPECIMENOrdering Facility: [facility] Address: [address] [place] [address] Performed By: #### L [id number] ####[facility] [id number] [place] [address] [place] Protein.monoclonal Elph [Mass/Vol] 0.00 g/dL Normal <=0.00 [facility] Comment on above: Order Comment: Speci men Type: BLOOD SPECIMENOrdering Facility: [facility] Address: [address] [place] [address] Performed By: #### L [id number] ####[facility] [id number] [place] [address] [place] SPE STAFF REVIEW Reviewed by Devora Cifuentes M.D., Ph.D Normal [facility] Comment on above: Order Comment: Speci men Type: BLOOD SPECIMENOrdering Facility: [facility] Address: [address] [place] [address] Performed By: #### L [id number] ####[facility] [id number] [place] [address] [place] Phosphate SerPl-mCncon 09-03 Phosphate [Mass/Vol] 4.2 mg/dL Normal 2.7-4.8 [facility] Comment on above: Order Comment: Speci men Type: BLOOD SPECIMENOrdering Facility: [facility] Address: [address] [place] [address] Performed By: #### 2 532-0, 03167-4, 2777-1 ####[facility] MARIA ESTHER MILLTONCLIA [id number] [place] [address] [place] Prot SerPl-mCncon 09-03-2024 Protein [Mass/Vol] 5.9 g/dL Low 6.3-8.0 [facility] Comment on above: Order Comment: Speci men Type: BLOOD SPECIMENOrdering Facility: [facility] Address: [address] [place] [address] Performed By: #### 1 952-1, 2885-2 ####[facility] LABCLIA [id number] [place] [address] [place] B2 Microglob SerPl-mCncon Qgzc-0-Eupuohzircjzn [Mass/Vol] 16.6 ug/mL High <3.1 [facility] Comment on above: Order Comment: Speci men Type: BLOOD SPECIMENOrdering Facility: [facility] Address: [address] [place] [address] Result Comment: Beta -2 Microglobulin test is performed using the [employer] immunoturbidimetric method. Results obtained with different methods or kits cannot be used interchangeably. Performed By: #### 2 885-2, 1952 ####[facility] LABCLIA [id number] [place] [address] [place] CBC W Auto Differential pane l (Bld)on 08-08-2024 Basophils (Bld) [#/Vol] 0.08 10*3/uL Normal <0.11 [facility] Comment on above: Order Comment: Speci men Type: BLOOD SPECIMENOrdering Facility: [facility] Address: [address] [place] [address] Performed By: #### 5 7021-8 ####[facility] MILLWNCLIA [id number] [place] [address] [place] Basophils/100 WBC (Bld) 1.5 % Normal [facility] Comment on above: Order Comment: Speci men Type: BLOOD SPECIMENOrdering Facility: [facility] Address: [address] [place] [address] Performed By: #### 5 7021-8 ####[facility]IT[facility]IA [id number] [place] [address] [place] Differential cell count method Nom (Bld) Auto Normal [facility] Comment on above: Order Comment: Speci men Type: BLOOD SPECIMENOrdering Facility: [facility] Address: [address] [place] [address] Performed By: #### 5 7021-8 ####[facility] [id number] [place] [address] [place] Eosinophils (Bld) [#/Vol] 0.14 10*3/uL Normal <0.46 [facility] Comment on above: Order Comment: Speci men Type: BLOOD SPECIMENOrdering Facility: [facility] Address: [address] [place] [address] Performed By: #### 5 7021-8 ####[facility]ALL[facility] [id number] [place] [address] [place] Eosinophils/100 WBC (Bld) 2.6 % Normal [facility] Comment on above: Order Comment: Speci men Type: BLOOD SPECIMENOrdering Facility: [facility] Address: [address] [place] [address] Performed By: #### 5 7021-8 ####[facility]ENTERNCLIA [id number] [place] [address] [place] Erythrocyte distribution width (RBC) [Ratio] 16.1 % High 11.5-15.0 [facility] Comment on above: Order Comment: Speci men Type: BLOOD SPECIMENOrdering Facility: [facility] Address: [address] [place] [address] Performed By: #### 5 7021-8 ####[facility] [id number] [place] [address] [place] Hematocrit (Bld) [Volume fraction] 37.5 % Low 39.0-51.0 [facility] Comment on above: Order Comment: Speci men Type: BLOOD SPECIMENOrdering Facility: [facility] Address: [address] [place] [address] Performed By: #### 5 7021-8 ####[facility] [id number] [place] [address] [place] Hemoglobin (Bld) [Mass/Vol] 12.0 g/dL Low 13.0-17.0 [facility] Comment on above: Order Comment: Speci men Type: BLOOD SPECIMENOrdering Facility: [facility] Address: [address] [place] [address] Performed By: #### 5 7021-8 ####[facility] [id number] [place] [address] [place] Immature granulocytes (Bld) [#/Vol] 0.03 10*3/uL Normal <0.10 [facility] Comment on above: Order Comment: Speci men Type: BLOOD SPECIMENOrdering Facility: [facility] Address: [address] [place], [place] [address] Performed By: #### 5 7021-8 ####[facility] [id number] [place] [address] [place] Immature granulocytes/100 WBC (Bld) 0.6 % Normal [facility] Comment on above: Order Comment: Speci men Type: BLOOD SPECIMENOrdering Facility: [facility] Address: [address] [place] [address] Performed By: #### 5 7021-8 ####[facility] MAJNULALETTYA [id number] [place] [address] [place] Lymphocytes (Bld) [#/Vol] 0.42 10*3/uL Low 1.00-4.00 [facility] Comment on above: Order Comment: Speci men Type: BLOOD SPECIMENOrdering Facility: [facility] Address: [address] [place] [address] Performed By: #### 5 7021-8 ####[facility] CENTERFRANCISCOBEAVER VAL[facility] [id number] [place] [address] [place] Lymphocytes/100 WBC (Bld) 7.9 % Normal [facility] Comment on above: Order Comment: Speci men Type: BLOOD SPECIMENOrdering Facility: [facility] Address: [address] [place] [address] Performed By: #### 5 7021-8 ####[facility] HOSPITALCARMELINA [id number] [place] [address] [place] MCH (RBC) [Entitic mass] 33.7 pg Normal 26.0-34.0 [facility] Comment on above: Order Comment: Speci men Type: BLOOD SPECIMENOrdering Facility: [facility] Address: [address] [place] [address] Performed By: #### 5 7021-8 ####[facility] HOSPITALLIA [id number] [place] [address] [place] MCHC (RBC) [Mass/Vol] 32.0 g/dL Normal 30.5-36.0 [facility] Comment on above: Order Comment: Speci men Type: BLOOD SPECIMENOrdering Facility: [facility] Address: [address] [place] [address] Performed By: #### 5 7021-8 ####[facility] MANJULAWFRANCISCOLIA [id number] [place] [address] [place] MCV (RBC) [Entitic vol] 105.3 fL High 80.0-100.0 C [facility] Comment on above: Order Comment: Speci men Type: BLOOD SPECIMENOrdering Facility: [facility] Address: [address] [place] [address] Performed By: #### 5 7021-8 ####[facility] [id number] [place] [address] [place] Monocytes (Bld) [#/Vol] 0.68 10*3/uL Normal <0.87 [facility] Comment on above: Order Comment: Speci men Type: BLOOD SPECIMENOrdering Facility: [facility] Address: [address] [place] [address] Performed By: #### 5 7021-8 ####[facility] [id number] [place] [address] [place] Monocytes/100 WBC (Bld) 12.8 % Normal C [facility] Comment on above: Order Comment: Speci men Type: BLOOD SPECIMENOrdering Facility: [facility] Address: [address] [place] [address] Performed By: #### 5 7021-8 ####[facility] HOSPITALLIA [id number] [place] [address] [place] Neutrophils (Bld) [#/Vol] 3.97 10*3/uL Normal 1.45-7.50 [facility] Comment on above: Order Comment: Speci men Type: BLOOD SPECIMENOrdering Facility: [facility] Address: [address] [place] [address] Performed By: #### 5 7021-8 ####[facility] HOSPITALLIA [id number] [place] [address] [place] Neutrophils/100 WBC (Bld) 74.6 % Normal [facility] Comment on above: Order Comment: Speci men Type: BLOOD SPECIMENOrdering Facility: [facility] Address: [address] [place] [address] Performed By: #### 5 7021-8 ####[facility] [id number] [place] [address] [place] Nucleated RBC (Bld) [#/Vol] 10*3/uL Normal <0.01 [facility] Comment on above: Order Comment: Speci men Type: BLOOD SPECIMENOrdering Facility: [facility] Address: [address] [place] [address] Performed By: #### 5 7021-8 ####[facility] [id number] [place] [address] [place] Nucleated RBC/100 WBC (Bld) [Ratio] 0.0 /100 WBC Normal [facility] Comment on above: Order Comment: Speci men Type: BLOOD SPECIMENOrdering Facility: [facility] Address: [address] [place] [address] Performed By: #### 5 7021-8 ####[facility] [id number] [place] [address] [place] Platelet mean volume (Bld) [Entitic vol] 10.5 fL Normal 9.0-12.7 [facility] Comment on above: Order Comment: Speci men Type: BLOOD SPECIMENOrdering Facility: [facility] Address: [address] [place] [address] Performed By: #### 5 7021-8 ####[facility] [id number] [place] [address] [place] Platelets (Bld) [#/Vol] 160 10*3/uL Normal 150-400 [facility] Comment on above: Order Comment: Speci men Type: BLOOD SPECIMENOrdering Facility: [facility] Address: [address] [place] [address] Performed By: #### 5 7021-8 ####[facility] CENTERNCLIA [id number] [place] [address] [place] RBC (Bld) [#/Vol] 3.56 10*6/uL Low 4.20-6.00 [facility] Comment on above: Order Comment: Speci men Type: BLOOD SPECIMENOrdering Facility: [facility] Address: [address] [place] [address] Performed By: #### 5 7021-8 ####[facility] CENTERNCLIA [id number] [place] [address] [place] WBC (Bld) [#/Vol] 5.32 10*3/uL Normal 3.70-11.00 [facility] Comment on above: Order Comment: Speci men Type: BLOOD SPECIMENOrdering Facility: [facility] Address: [address] [place] [address] Performed By: #### 5 7021-8 ####[facility]ENTERNCLIA [id number] [place] [address] [place] Comprehensive metabolic 2000 panelon 08-08-2024 Albumin [Mass/Vol] 4.4 g/dL Normal 3.9-4.9 [facility] Comment on above: Order Comment: Speci men Type: BLOOD SPECIMENOrdering Facility: [facility] Address: [address] [place] [address] Performed By: #### 2 532-0, 3084-1, 25852-5 ####[facility] CENTERNCLIA [id number] [place] [address] [place] ALP [Catalytic activity/Vol] 142 U/L High 38-113 [facility] Comment on above: Order Comment: Speci men Type: BLOOD SPECIMENOrdering Facility: [facility] Address: [address] [place] [address] Performed By: #### 2 532-0, 3084-1, 62560-6 ####[facility] MARIA ESTHER MANJULAToniNCLIA [id number] [place] [address] [place] ALT [Catalytic activity/Vol] 23 U/L Normal 10-54 [facility] Comment on above: Order Comment: Speci men Type: BLOOD SPECIMENOrdering Facility: [facility] Address: [address] [place] [address] Performed By: #### 2 532-0, 3084-1, 04656-9 ####[facility]ENTERNCLIA [id number] [place] [address] [place] Anion gap [Moles/Vol] 15 mmol/L Normal 8-15 [facility] Comment on above: Order Comment: Speci men Type: BLOOD SPECIMENOrdering Facility: [facility] Address: [address] [place] [address] Performed By: #### 2 532-0, 3084-1, 90891-3 ####[facility] HOSPITALPASCUALA [id number] [place] [address] [place] AST [Catalytic activity/Vol] 27 U/L Normal 14-40 [facility] Comment on above: Order Comment: Speci men Type: BLOOD SPECIMENOrdering Facility: [facility] Address: [address] [place] [address] Performed By: #### 2 532-0, 3084-1, 35724-6 ####[facility] CENTERNCLIA [id number] [place] [address] [place] Bilirubin [Mass/Vol] 0.4 mg/dL Normal 0.2-1.3 [facility] Comment on above: Order Comment: Speci men Type: BLOOD SPECIMENOrdering Facility: [facility] Address: [address] [place] [address] Performed By: #### 2 532-0, 3084-1, 47547-0 ####[facility] MILLTOWNCLIA [id number] [place] [id number] [place] Calcium [Mass/Vol] 10.1 mg/dL Normal 8.5-10.2 [facility] Comment on above: Order Comment: Speci men Type: BLOOD SPECIMENOrdering Facility: [facility] Address: [address] [place] [address] Performed By: #### 2 532-0, 3084-1, ####[facility] CENTERNCLIA [id number] [place] [address] [place] Chloride [Moles/Vol] 97 mmol/L Low 98-107 [facility] Comment on above: Order Comment: Speci men Type: BLOOD SPECIMENOrdering Facility: [facility] Address: [address] [place] [address] Performed By: #### 2 532-0, 308-1, ####[facility]IT[facility]IA [id number] [place] [address] [place] CO2 [Moles/Vol] 26 mmol/L Normal 22-30 [facility] Comment on above: Order Comment: Speci men Type: BLOOD SPECIMENOrdering Facility: [facility] Address: [address] [place] [address] Performed By: #### 2 532-0, 308-1, ####[facility] [id number] [place] [address] [place] Creatinine [Mass/Vol] 3.72 mg/dL High 0.73-1.22 [facility] Comment on above: Order Comment: Speci men Type: BLOOD SPECIMENOrdering Facility: [facility] Address: [address] [place] [address] Performed By: #### 2 532-0, 3084-1, 32929-0 ####[facility]ERNCLIA [id number] [place] [address] [place] Creatinine and Glomerular filtration rate.predicted panel (S/P/Bld) 17 mL/min/1.73m??? Low >=60 [facility] Comment on above: Order Comment: Jasmina allen Type: BLOOD SPECIMENOrdering Facility: [facility] Address: [address] [place] [address] Result Comment: Radha mated Glomerular Filtration Rate (eGFR) is calculated using the 2020 CKD-EPI creatinine equation. This equation utilizes serum creatinine, sex, and age as parameters. The creatinine assay has traceable calibration to isotope dilution-mass spectrometry. Refer to KDIGO guidelines for clinical interpretation. In patients with unstable renal function, e.g. those with acute kidney injury, the eGFR may not accurately reflect actual GFR. Performed By: #### 2 532-0, 3084-1, 38485-4 ####[facility] [id number] [place] [address] [place] Glucose [Mass/Vol] 111 mg/dL High 74-99 [facility] Comment on above: Order Comment: Jasmina allen Type: BLOOD SPECIMENOrdering Facility: [facility] Address: [address] [place] [address] Result Comment: The [place] Diabetes Association (ADA) provides guidance for cutoff values for fasting glucose and random glucose. The ADA defines fasting as no caloric intake for at least 8 hours. Fasting plasma glucose results between 100 to 125 mg/dL indicate increased risk for diabetes (prediabetes).Fasting plasma glucose results greater than or equal to 126 mg/dL meet the criteria for diagnosis of diabetes. In the absence of unequivocal hyperglycemia, results should be confirmed by repeat testing. In a patient with classic symptoms of hyperglycemia or hyperglycemic crisis, random plasma glucose results greater than or equal to 200 mg/dL meet the criteria for diagnosis of diabetes.Reference: Standards of Medical Care in Diabetes 2016, [place] Diabetes Association. Diabetes Care. 2016.39(Suppl 1). Performed By: #### 2 532-0, 3084-, ####[facility] MARIA ESTHER MILLTOWNCLIA [id number] [place] [id number] [place] Potassium [Moles/Vol] 3.4 mmol/L Low 3.7-5.1 [facility] Comment on above: Order Comment: Speci men Type: BLOOD SPECIMENOrdering Facility: [facility] Address: [address] [place] [address] Performed By: #### 2 532-0, 3083-09, ####[facility] MILLTOWNCLIA [id number] [place] [address] [place] Protein [Mass/Vol] 6.7 g/dL Normal 6.3-8.0 [facility] Comment on above: Order Comment: Speci men Type: BLOOD SPECIMENOrdering Facility: [facility] Address: [address] [place] [address] Performed By: #### 2 532-0, 3083-09, ####[facility] MILLTOWNCLIA [id number] [place] [address] [place] Sodium [Moles/Vol] 138 mmol/L Normal 136-144 [facility] Comment on above: Order Comment: Speci men Type: BLOOD SPECIMENOrdering Facility: [facility] Address: [address] [place] [address] Performed By: #### 2 532-0, 3083-09, ####[facility] MILLTOWNCLIA [id number] [place] [address] [place] Urea nitrogen [Mass/Vol] 48 mg/dL High 9-24 [facility] Comment on above: Order Comment: Speci men Type: BLOOD SPECIMENOrdering Facility: [facility] Address: [address] [place] [address] Performed By: #### 2 532-0, 3083-09, ####[facility] [id number] [place] [address] [place] IMMUNOFIXATION SCREEN, SERUM on 08-08-2024 INTERPRETATION ([facility]) Normal [facility] Comment on above: Order Comment: Speci men Type: BLOOD SPECIMENOrdering Facility: [facility] Address: [address] [place] [address] Performed By: #### I FESC ####[facility] LABCLIA [id number] [place] [address] [place] MPA RESULT A poorly defined reg ion of restricted mobility is present that may represent an M protein. Abnormal No M protein is identified. [facility] Comment on above: Order Comment: Speci men Type: BLOOD SPECIMENOrdering Facility: [facility] Address: [address] [place] [address] Performed By: #### I FESC ####[facility] LABCLIA [id number] [address] [place] STAFF REVIEW ([facility]) Reviewed by Kim Peoples MD Normal [facility] Comment on above: Order Comment: Speci men Type: BLOOD SPECIMENOrdering Facility: [facility] Address: [address] [place] [address] Performed By: #### I FESC ####[facility] LABCLIA [id number] [place] [address] [place] IMMUNOGLOBULINS,IGG,IGA,IGMo n 08-08-2024 IgA [Mass/Vol] 18 mg/dL Low 70-400 [facility] Comment on above: Order Comment: Speci men Type: BLOOD SPECIMENOrdering Facility: [facility] Address: [address] [place] [address] Performed By: #### S ERIMM ####[facility] LABCLIA [id number] [place] [address] [place] IgG [Mass/Vol] 301 mg/dL Low 700-1600 [facility] Comment on above: Order Comment: Speci men Type: BLOOD SPECIMENOrdering Facility: [facility] Address: [address] [place] [address] Performed By: #### S ERIMM ####[facility] LABIA [id number] [place] [address] [place] IgM [Mass/Vol] 32 mg/dL Low 40-230 [facility] Comment on above: Order Comment: Speci men Type: BLOOD SPECIMENOrdering Facility: [facility] Address: [address] [place] [address] Performed By: #### S ERIMM ####[facility] [id number] [place] [address] [place] KAPPA/EMERY,FREE,SERon 2023 Immunoglobulin light chains.kappa.free (S) [Mass/Vol] 32.3 mg/L High 3.3-19.4 [facility] Comment on above: Order Comment: Speci men Type: BLOOD SPECIMENOrdering Facility: [facility] Address: [address] [place] [address] Result Comment: Rare ly, increased serum free light chains levels may not be detected or accurately quantified due to prozone phenomenon or in high viscosity samples using this immunoturbidimetric assay. Correlation with other laboratory results and clinical findings is recommended.The [place] Free Light Chain was performed using the Binding Site Optilite immunoturbidimetric method. Result obtained with different assay methods or kits cannot be used interchangeably. Performed By: #### K LFRS ####[facility] LABIA [id number] [place] [address] [place] Immunoglobulin light chains.kappa/Immunoglob ulin light chains.lambda (S) [Mass ratio] 2.03 High 0.26-1.65 [facility] Comment on above: Order Comment: Speci men Type: BLOOD SPECIMENOrdering Facility: [facility] Address: [address] [place] [address] Performed By: #### K LFRS ####[facility] LABCLIA [id number] [place] [address] [place] Immunoglobulin light chains.lambda.free [Mass/Vol] 15.9 mg/L Normal 5.7-26.3 [facility] Comment on above: Order Comment: Speci men Type: BLOOD SPECIMENOrdering Facility: [facility] Address: [address] [place] [address] Result Comment: Rare ly, increased serum free light chains levels may not be detected or accurately quantified due to prozone phenomenon or in high viscosity samples using this immunoturbidimetric assay. Correlation with other laboratory results and clinical findings is recommended.The [place] Free Light Chain was performed using the Binding Site Optilite immunoturbidimetric method. Result obtained with different assay methods or kits cannot be used interchangeably. Performed By: #### K LFRS ####[facility] LABCLIA [id number] [place] [address] [place] LDH SerPl-cCncon 08-08-2024 LDH [Catalytic activity/Vol] 247 U/L High 135-225 [facility] Comment on above: Order Comment: Speci men Type: BLOOD SPECIMENOrdering Facility: [facility] Address: [address] [place] [address] Performed By: #### 2 532-0, 3084-1, 36117-3 ####[facility] [id number] [place] [address] [place] PROTEIN ELECTROPHORESIS SERU M (P)on 08-08-2024 Albumin [Mass/Vol] 4.17 g/dL Normal 3.43-5.41 [facility] Comment on above: Order Comment: Speci men Type: BLOOD SPECIMENOrdering Facility: [facility] Address: [address] [place] [address] Performed By: #### L [id number] ####[facility] LABCLIA [id number] [place] [address] [place] Alpha 1 globulin Elph [Mass/Vol] 0.34 g/dL Normal 0.18-0.43 [facility] Comment on above: Order Comment: Speci men Type: BLOOD SPECIMENOrdering Facility: [facility] Address: [address] [place] [address] Performed By: #### L [id number] ####[facility] LABCLIA [id number] [place] [address] [place] Alpha 2 globulin Elph [Mass/Vol] 0.77 g/dL Normal 0.42-0.98 [facility] Comment on above: Order Comment: Speci men Type: BLOOD SPECIMENOrdering Facility: [facility] Address: [address] [place] [address] Performed By: #### L [id number] ####[facility] LABCLIA [id number] [place] [address] [place] Beta globulin Elph [Mass/Vol] 0.59 g/dL Low 0.61-1.17 [facility] Comment on above: Order Comment: Speci men Type: BLOOD SPECIMENOrdering Facility: [facility] Address: [address] [place] [address] Performed By: #### L [id number] ####[facility] LABCLIA [id number] [place] [address] [place] Gamma globulin Elph [Mass/Vol] 0.23 g/dL Low 0.53-1.51 [facility] Comment on above: Order Comment: Speci men Type: BLOOD SPECIMENOrdering Facility: [facility] Address: [address] [place] [address] Performed By: #### L [id number] ####[facility] LABCLIA [id number] [place] [address] [place] INTERPRETATION COMMENT FOR PROTEIN ELECTROPHORESIS Hypogammaglobulinemia is present, which can be seen in the setting of monoclonal gammopathy. If clinically indicated, monoclonal protein analysis and serum free light chain analysis are suggested to evaluate further for monoclonal gammopathy. Normal [facility] Comment on above: Order Comment: Speci men Type: BLOOD SPECIMENOrdering Facility: [facility] Address: [address] [place] [address] Performed By: #### L [id number] ####[facility] LABCLIA [id number] [place] [id number] [place] M-PROTEIN LOCATION Normal [facility] Comment on above: Order Comment: Speci men Type: BLOOD SPECIMENOrdering Facility: [facility] Address: [address] [place] [address] Result Comment: Not Applicable. Performed By: #### L [id number] ####[facility] LABCLIA [id number] [place] [address] [place] Protein Fractions [Interp] No definitive M protein is identified on protein electrophoresis. Normal No definitive M protein is identified on protein electrophores is. [facility] Comment on above: Order Comment: Speci men Type: BLOOD SPECIMENOrdering Facility: [facility] Address: [address] [place] [address] Performed By: #### L [id number] ####[facility] LABCLIA [id number] [place] [address] [place] Protein.monoclonal Elph [Mass/Vol] 0.00 g/dL Normal <=0.00 [facility] Comment on above: Order Comment: Speci men Type: BLOOD SPECIMENOrdering Facility: [facility] Address: [address] [place] [address] Performed By: #### L [id number] ####[facility] LABCLIA [id number] [place] [address] [place] SPE STAFF REVIEW Reviewed by Kim Peoples MD Normal [facility] Comment on above: Order Comment: Speci men Type: BLOOD SPECIMENOrdering Facility: [facility] Address: [address] [place] [address] Performed By: #### L [id number] ####[facility] LABCLIA [id number] [address] [address] [place] Phosphate SerPl-mCncon 08-08 Phosphate [Mass/Vol] 4.2 mg/dL Normal 2.7-4.[facility] Comment on above: Order Comment: Speci men Type: BLOOD SPECIMENOrdering Facility: [facility] Address: [address] [place] [address] Performed By: #### 2 777-1 ####[facility] CLAREMORELIA [id number] [place] [address] [place] Prot SerPl-mCncon 08-08-2024 Protein [Mass/Vol] 6.1 g/dL Low 6.3-8.0 [facility] Comment on above: Order Comment: Speci men Type: BLOOD SPECIMENOrdering Facility: [facility] Address: [address] [place] [address] Performed By: #### 2 885-2, 1952-1 ####[facility] LABIA [id number] [place] [address] [place] Urate SerPl-mCncon Urate [Mass/Vol] 4.3 mg/dL Normal 4.0-8.1 [facility] Comment on above: Order Comment: Speci men Type: BLOOD SPECIMENOrdering Facility: [facility] Address: [address] [place] [address] Performed By: #### 2 532-0, 3084-1, 32191-0 ####[facility]ITALLIA [id number] [place] [address] [place] CNOVon 08-06-2024 CNOV Normal [facility] CNPNon 08-06-2024 CNPN Normal [facility] HbA1c (Bld)on 08-01-2024 Average glucose Estimated from glycated hemoglobin (Bld) [Mass/Vol] 108 mg/dL Normal [facility] Comment on above: Order Comment: Jasmina allen Type: BLOOD SPECIMENOrdering Facility: [facility] Address: [address] [place] [address] Result Comment: eAG: (Estimated average glucose) is a calculated value from HgbA1c and is operations representative of the average blood glucose level in the last 2-3 month period. Performed By: #### 5 5454-3 ####[facility] LABCLIA [id number] [place] [address] [place] HbA1c (Bld) [Mass fraction] 5.4 % Normal 4.3-5.6 [facility] Comment on above: Order Comment: Jasmina allen Type: BLOOD SPECIMENOrdering Facility: [facility] Address: [address] [place] [address] Result Comment: [place] Diabetes Association guidelines indicate that patients with HgbA1c in the range 5.7-6.4% are at increased risk for development of diabetes, and intervention by lifestyle modification may be beneficial. HgbA1c greater or equal to 6.5% is considered diagnostic of diabetes. Performed By: #### 5 5454-3 ####[facility] LABCLIA [id number] [place] [address] [place] LIPID PANEL, NONFASTINGon Cholesterol [Mass/Vol] 190 mg/dL Normal <200 [facility] Comment on above: Order Comment: Jasmina allen Type: BLOOD SPECIMENOrdering Facility: [facility] Address: [address] [place] [address] Result Comment: <200 mg/dL, Desirable 200-239 mg/dL, Borderline high>239 mg/dL, High Performed By: #### L IPNF ####[facility] LABIA [id number] [place] [address] [place] HDL CHOLESTEROL, NF 80 mg/dL Normal >39 [facility] Comment on above: Order Comment: Jasmina tiffany Type: BLOOD SPECIMENOrdering Facility: [facility] Address: [address] [place] [address] Result Comment: 40-5 9 mg/dL, Acceptable>59 mg/dL, High: Negative risk factor for coronary heart disease<40 mg/dL, Low: Positive risk factor for coronary heart disease Performed By: #### L IPNF ####[facility] LABCLIA [id number] [address] STATES OF [facility] LDL CHOLESTEROL, NF 98 mg/dL Normal <100 [facility] Comment on above: Order Comment: Speci men Type: BLOOD SPECIMENOrdering Facility: [facility] Address: [address] [place] [address] Result Comment: <100 mg/dL, Optimal 100-129 mg/dL, Near optimal/above optimal 130-159 mg/dL, Borderline high 160-189 mg/dL, High>189 mg/dL, Very highSecondary prevention optimal LDL Cholesterol levels are recommended to be < 70 mg/dL Performed By: #### L IPNF ####[facility] LABCLIA [id number] [address] LDL/HDL RATIO, NF 1.23 mg/dL Normal <2.54 [facility] Comment on above: Order Comment: Jasmina allen Type: BLOOD SPECIMENOrdering Facility: [facility] Address: [address] [place] [address] Result Comment: Refe rence:1. National Cholesterol Education Program ATP III Guideline At-A-Glance Quick Desk Reference: National Heart, Lung, and Blood [place]. National Institutes of Health. 2001: NIH Publication No. 01-3305.2. An International Atherosclerosis Society position paper: global recommendations for the management of dyslipidemia: executive summary, Atherosclerosis. 2014: 232(2):410-413. Performed By: #### L IPNF ####[facility] LABCLIA [id number] [address] [place] NON HDL CHOL, NF 110 mg/dL Normal <130 [facility] Comment on above: Order Comment: Jasmina men Type: BLOOD SPECIMENOrdering Facility: [facility] Address: [address] [place] [address] Result Comment: <130 mg/dL, Optimal 130-159 mg/dL, Near optimal/above optimal 160-189 mg/dL, Borderline high 190-219 mg/dL, High>219 mg/dL, Very highSecondary prevention optimal non HDL Cholesterol levels are recommended to be <100 mg/dL Performed By: #### L IPNF ####[facility] LABCLIA [id number] [place] [address] [place] T CHOL/HDL RATIO NF 2.38 mg/dL Normal <5.10 [facility] Comment on above: Order Comment: Speci men Type: BLOOD SPECIMENOrdering Facility: [facility] Address: [address] [place] [address] Performed By: #### L IPNF ####[facility] LABCLIA [id number] [place] [address] [place] TRIGLYCERIDES, NF 61 mg/dL Normal <150 [facility] Comment on above: Order Comment: Speci men Type: BLOOD SPECIMENOrdering Facility: [facility] Address: [address] [place] [address] Result Comment: <150 mg/dL, Normal 150-199 mg/dL, Borderline high 200-499 mg/dL, High>499 mg/dL, Very high Performed By: #### L IPNF ####[facility] [id number] [place] [address] [place] VLDL CHOLESTEROL, NF 12 mg/dL Normal <30 [facility] Comment on above: Order Comment: Speci men Type: BLOOD SPECIMENOrdering Facility: [facility] Address: [address] [place] [address] Performed By: #### L IPNF ####[facility] LAB[facility] [id number] [place] [address] [place] CNPNon 07-31-2024 CNPN Normal [facility] B2 Microglob SerPl-mCncon Palr-0-Qpmnmnquahztb [Mass/Vol] 18.2 ug/mL High <3.1 [facility] Comment on above: Order Comment: Speci men Type: BLOOD SPECIMENOrdering Facility: [facility] Address: [address] [place] [address] Result Comment: Beta -2 Microglobulin test is performed using the [employer] immunoturbidimetric method. Results obtained with different methods or kits cannot be used interchangeably. Performed By: #### 2 885-2, 1951-09 ####[facility] LABCLIA [id number] [facility] [place] [address] [place] CBC W Auto Differential pane l (Bld)on 07-18-2024 Basophils (Bld) [#/Vol] 0.08 10*3/uL Normal <0.11 [facility] Comment on above: Order Comment: Speci men Type: BLOOD SPECIMENOrdering Facility: [facility] Address: [address] [place] [address] Performed By: #### 5 7021-8 ####[facility]ITALLIA [id number] [place] [address] [place] Basophils/100 WBC (Bld) 1.5 % Normal C [facility] Comment on above: Order Comment: Speci men Type: BLOOD SPECIMENOrdering Facility: [facility] Address: [address] [place] [address] Performed By: #### 5 7021-8 ####[facility] BEACHESWNCLIA [id number] [place] [address] [place] Differential cell count method Nom (Bld) Auto Normal [facility] Comment on above: Order Comment: Speci men Type: BLOOD SPECIMENOrdering Facility: [facility] Address: [address] [place] [address] Performed By: #### 5 7021-8 ####[facility]ENTERNCLIA [id number] [place] [address] [place] Eosinophils (Bld) [#/Vol] 0.14 10*3/uL Normal <0.46 [facility] Comment on above: Order Comment: Speci men Type: BLOOD SPECIMENOrdering Facility: [facility] Address: [address] [place] [address] Performed By: #### 5 7021-8 ####[facility]ENTERNCPASCUAL [id number] [place] [address] [place] Eosinophils/100 WBC (Bld) 2.7 % Normal [facility] Comment on above: Order Comment: Speci men Type: BLOOD SPECIMENOrdering Facility: [facility] Address: [address] [place] [address] Performed By: #### 5 7021-8 ####[facility]ENTERNCBEAV[facility] [id number] [place] [address] [place] Erythrocyte distribution width (RBC) [Ratio] 15.3 % High 11.5-15.0 [facility] Comment on above: Order Comment: Speci men Type: BLOOD SPECIMENOrdering Facility: [facility] Address: [address] [place] [address] Performed By: #### 5 7021-8 ####[facility] [id number] [place] [address] [place] Hematocrit (Bld) [Volume fraction] 33.8 % Low 39.0-51.0 [facility] Comment on above: Order Comment: Speci men Type: BLOOD SPECIMENOrdering Facility: [facility] Address: [address] [place] [address] Performed By: #### 5 7021-8 ####[facility] [id number] [place] [address] [place] Hemoglobin (Bld) [Mass/Vol] 10.8 g/dL Low 13.0-17.0 [facility] Comment on above: Order Comment: Speci men Type: BLOOD SPECIMENOrdering Facility: [facility] Address: [address] [place] [address] Performed By: #### 5 7021-8 ####[facility] DESIREEA [id number] [place] [address] [place] Immature granulocytes (Bld) [#/Vol] 10*3/uL Normal <0.10 [facility] Comment on above: Order Comment: Speci men Type: BLOOD SPECIMENOrdering Facility: [facility] Address: [address] [place] [address] Performed By: #### 5 7021-8 ####[facility] [id number] [place] [address] [place] Immature granulocytes/100 WBC (Bld) 0.2 % Normal [facility] Comment on above: Order Comment: Speci men Type: BLOOD SPECIMENOrdering Facility: [facility] Address: [address] [place] [address] Performed By: #### 5 7021-8 ####[facility] [id number] [place] [address] [place] Lymphocytes (Bld) [#/Vol] 0.48 10*3/uL Low 1.00-4.00 [facility] Comment on above: Order Comment: Speci men Type: BLOOD SPECIMENOrdering Facility: [facility] Address: [address] [place] [address] Performed By: #### 5 7021-8 ####[facility] HOSPITALLIA [id number] [place] [address] [place] Lymphocytes/100 WBC (Bld) 9.1 % Normal [facility] Comment on above: Order Comment: Speci men Type: BLOOD SPECIMENOrdering Facility: [facility] Address: [address] [place] [address] Performed By: #### 5 7021-8 ####[facility] MANJULASANTA ANANCPASCUALA [id number] [place] [address] [place] MCH (RBC) [Entitic mass] 33.3 pg Normal 26.0-34.0 [facility] Comment on above: Order Comment: Speci men Type: BLOOD SPECIMENOrdering Facility: [facility] Address: [address] [place] [address] Performed By: #### 5 7021-8 ####[facility] [id number] [place] [address] [place] MCHC (RBC) [Mass/Vol] 32.0 g/dL Normal 30.5-36.0 [facility] Comment on above: Order Comment: Speci men Type: BLOOD SPECIMENOrdering Facility: [facility] Address: [address] [place] [address] Performed By: #### 5 7021-8 ####[facility] [id number] [place] [address] [place] MCV (RBC) [Entitic vol] 104.3 fL High 80.0-100.0 C [facility] Comment on above: Order Comment: Speci men Type: BLOOD SPECIMENOrdering Facility: [facility] Address: [address] [place] [address] Performed By: #### 5 7021-8 ####[facility] APOPKADinorah [id number] [place] [address] [place] Monocytes (Bld) [#/Vol] 0.69 10*3/uL Normal <0.87 [facility] Comment on above: Order Comment: Speci men Type: BLOOD SPECIMENOrdering Facility: [facility] Address: [address] [place] [address] Performed By: #### 5 7021-8 ####[facility]ENTERNCLIA [id number] [place] [address] [place] Monocytes/100 WBC (Bld) 13.1 % Normal [facility] Comment on above: Order Comment: Speci men Type: BLOOD SPECIMENOrdering Facility: [facility] Address: [address] [place] [address] Performed By: #### 5 7021-8 ####[facility]ENTERNCLIA [id number] [place] [address] [place] Neutrophils (Bld) [#/Vol] 3.85 10*3/uL Normal 1.45-7.50 [facility] Comment on above: Order Comment: Speci men Type: BLOOD SPECIMENOrdering Facility: [facility] Address: [address] [place] [address] Performed By: #### 5 7021-8 ####[facility] [id number] [place] [address] [place] Neutrophils/100 WBC (Bld) 73.4 % Normal [facility] Comment on above: Order Comment: Speci men Type: BLOOD SPECIMENOrdering Facility: [facility] Address: [address] [place] [address] Performed By: #### 5 7021-8 ####[facility] [id number] [place] [address] [place] Nucleated RBC (Bld) [#/Vol] 10*3/uL Normal <0.01 [facility] Comment on above: Order Comment: Speci men Type: BLOOD SPECIMENOrdering Facility: [facility] Address: [address] [place] [address] Performed By: #### 5 7021-8 ####[facility] [id number] [place] [address] [place] Nucleated RBC/100 WBC (Bld) [Ratio] 0.0 /100 WBC Normal [facility] Comment on above: Order Comment: Speci men Type: BLOOD SPECIMENOrdering Facility: [facility] Address: [address] [place] [address] Performed By: #### 5 7021-8 ####[facility] BELLA [id number] [place] [address] [place] Platelet mean volume (Bld) [Entitic vol] 10.2 fL Normal 9.0-12.7 [facility] Comment on above: Order Comment: Speci men Type: BLOOD SPECIMENOrdering Facility: [facility] Address: [address] [place] [address] Performed By: #### 5 7021-8 ####[facility] MANJULASANTA ANANCCARMELINA [id number] [place] [address] [place] Platelets (Bld) [#/Vol] 163 10*3/uL Normal 150-400 [facility] Comment on above: Order Comment: Speci men Type: BLOOD SPECIMENOrdering Facility: [facility] Address: [address] [place] [address] Performed By: #### 5 7021-8 ####[facility] CENTERNCPASCUALA [id number] [place] [address] [place] RBC (Bld) [#/Vol] 3.24 10*6/uL Low 4.20-6.00 [facility] Comment on above: Order Comment: Speci men Type: BLOOD SPECIMENOrdering Facility: [facility] Address: [address] [place] [address] Performed By: #### 5 7021-8 ####[facility]ENTERNCLIA [id number] [place] [address] [place] WBC (Bld) [#/Vol] 5.25 10*3/uL Normal 3.70-11.00 [facility] Comment on above: Order Comment: Speci men Type: BLOOD SPECIMENOrdering Facility: [facility] Address: [address] [place] [address] Performed By: #### 5 7021-8 ####[facility] MILLTOWNCLIA [id number] [place] [address] [place] Comprehensive metabolic 2000 panelon 07-18-2024 Albumin [Mass/Vol] 3.8 g/dL Low 3.9-4.9 [facility] Comment on above: Order Comment: Speci men Type: BLOOD SPECIMENOrdering Facility: [facility] Address: [address] [place] [address] Performed By: #### 2 777-1, 38603-5 ####[facility] BEACHESROMEROLIA [id number] [place] [address] [place] ALP [Catalytic activity/Vol] 114 U/L High 38-113 [facility] Comment on above: Order Comment: Speci men Type: BLOOD SPECIMENOrdering Facility: [facility] Address: [address] [place] [address] Performed By: #### 2 777-1, 51413-8 ####[facility] CENTERFRANCISCOLIA [id number] [place] [address] [place] ALT [Catalytic activity/Vol] 22 U/L Normal 10-54 [facility] Comment on above: Order Comment: Speci men Type: BLOOD SPECIMENOrdering Facility: [facility] Address: [address] [place] [address] Performed By: #### 2 777-1, 44805-5 ####[facility] MILLTOWNCLIA [id number] [place] [address] [place] Anion gap [Moles/Vol] 14 mmol/L Normal 8-15 [facility] Comment on above: Order Comment: Speci men Type: BLOOD SPECIMENOrdering Facility: [facility] Address: [address] [place] [address] Performed By: #### 2 777-1, 13995-4 ####[facility] BEACHESWNCLIA [id number] [place] [address] [place] AST [Catalytic activity/Vol] 23 U/L Normal 14-40 [facility] Comment on above: Order Comment: Speci men Type: BLOOD SPECIMENOrdering Facility: [facility] Address: [address] [place] [address] Performed By: #### 2 777-1, 41425-4 ####[facility] MILLTOWNCLIA [id number] [place] [address] [place] Bilirubin [Mass/Vol] 0.3 mg/dL Normal 0.2-1.3 [facility] Comment on above: Order Comment: Speci men Type: BLOOD SPECIMENOrdering Facility: [facility] Address: [address] [place] [address] Performed By: #### 2 777-1, 69294-5 ####[facility] BEACHESWFRANCISCOLIA [id number] [place] [address] [place] Calcium [Mass/Vol] 9.3 mg/dL Normal 8.5-10.2 [facility] Comment on above: Order Comment: Speci men Type: BLOOD SPECIMENOrdering Facility: [facility] Address: [address] [place] [address] Performed By: #### 2 777-1, 52067-5 ####[facility] MILLTOWNCLIA [id number] [place] [address] [place] Chloride [Moles/Vol] 98 mmol/L Normal 98-107 [facility] Comment on above: Order Comment: Speci men Type: BLOOD SPECIMENOrdering Facility: [facility] Address: [address] [place] [address] Performed By: #### 2 777-1, 21531-3 ####[facility] MILLSUMIWFRANCISCOLIA [id number] [place] [address] [place] CO2 [Moles/Vol] 29 mmol/L Normal 22-30 [facility] Comment on above: Order Comment: Jasmina men Type: BLOOD SPECIMENOrdering Facility: [facility] Address: [address] [place] [address] Performed By: #### 2 777-1, 95306-9 ####[facility] CENTERNCPASCUALA [id number] [place] [address] [place] Creatinine [Mass/Vol] 3.46 mg/dL High 0.73-1.22 [facility] Comment on above: Order Comment: Zairai men Type: BLOOD SPECIMENOrdering Facility: [facility] Address: [address] [place] [address] Performed By: #### 2 777-1, 60399-9 ####[facility] CENTERNCLIA [id number] [place] [address] [place] Creatinine and Glomerular filtration rate.predicted panel (S/P/Bld) 18 mL/min/1.73m??? Low >=60 [facility] Comment on above: Order Comment: Jasmina allen Type: BLOOD SPECIMENOrdering Facility: [facility] Address: [address] [place] [address] Result Comment: Radha mated Glomerular Filtration Rate (eGFR) is calculated using the 2020 CKD-EPI creatinine equation. This equation utilizes serum creatinine, sex, and age as parameters. The creatinine assay has traceable calibration to isotope dilution-mass spectrometry. Refer to KDIGO guidelines for clinical interpretation. In patients with unstable renal function, e.g. those with acute kidney injury, the eGFR may not accurately reflect actual GFR. Performed By: #### 2 777-1, 30256-3 ####[facility] CENTERNCLIA [id number] [place] [address] [place] Glucose [Mass/Vol] 148 mg/dL High 74-99 [facility] Comment on above: Order Comment: Speci men Type: BLOOD SPECIMENOrdering Facility: [facility] Address: [address] [place], [place] [address] Result Comment: The [place] Diabetes [employer] (ADA) provides guidance for cutoff values for fasting glucose and random glucose. The ADA defines fasting as no caloric intake for at least 8 hours. Fasting plasma glucose results between 100 to 125 mg/dL indicate increased risk for diabetes (prediabetes).Fasting plasma glucose results greater than or equal to 126 mg/dL meet the criteria for diagnosis of diabetes. In the absence of unequivocal hyperglycemia, results should be confirmed by repeat testing. In a patient with classic symptoms of hyperglycemia or hyperglycemic crisis, random plasma glucose results greater than or equal to 200 mg/dL meet the criteria for diagnosis of diabetes.Reference: Standards of Medical Care in Diabetes 2016, [place] [employer]. Diabetes Care. 2016.39(Suppl 1). Performed By: #### 2 777-1, 68536-8 ####[facility] [id number] [place] [address] [place] Potassium [Moles/Vol] 3.9 mmol/L Normal 3.7-5.1 [facility] Comment on above: Order Comment: Speci men Type: BLOOD SPECIMENOrdering Facility: [facility] Address: [address] [place], [place] [address] Performed By: #### 2 777-1, 57907-5 ####[facility] [id number] [place] [address] [place] Protein [Mass/Vol] 5.8 g/dL Low 6.3-8.0 [facility] Comment on above: Order Comment: Speci men Type: BLOOD SPECIMENOrdering Facility: [facility] Address: [address] [place], [place] [address] Performed By: #### 2 777-1, 23159-5 ####[facility] [id number] [place] [address] [place] Sodium [Moles/Vol] 141 mmol/L Normal 136-144 [facility] Comment on above: Order Comment: Speci men Type: BLOOD SPECIMENOrdering Facility: [facility] Address: [address] [place] [address] Performed By: #### 2 777-1, 49744-9 ####[facility] MANJULASANTA ANANCCARMELINA [id number] [address] [place] Urea nitrogen [Mass/Vol] 47 mg/dL High 9-24 [facility] Comment on above: Order Comment: Speci men Type: BLOOD SPECIMENOrdering Facility: [facility] Address: [address] [place] [address] Performed By: #### 2 777-1, 54644-7 ####[facility] CENTERNCLIA [id number] [place], [place] [id number] [place] [address] IMMUNOFIXATION SCREEN, SERUM on 07-18-2024 INTERPRETATION (MPA) Atypical restricted bands are present in the IgG and kappa regions. Consistent with IgG kappa monoclonal gammopathy. Normal [facility] Comment on above: Order Comment: Speci men Type: BLOOD SPECIMENOrdering Facility: [facility] Address: [address] [place] [address] Performed By: #### I FES ####[facility] LABIA [id number] [address] MPA RESULT M protein is present. Abnormal No M p rotein is identified. [facility] Comment on above: Order Comment: Speci men Type: BLOOD SPECIMENOrdering Facility: [facility] Address: [address] [place] [address] Performed By: #### I FES ####[facility] LABIA [id number] [address] [place] STAFF REVIEW (MPA) Reviewed by Andi Mercedes MD, Ph.D ([id number]) Normal [facility] Comment on above: Order Comment: Speci men Type: BLOOD SPECIMENOrdering Facility: [facility] Address: [address] [place], [place] [address] Performed By: #### I FESC ####[facility] LABCLIA [id number] [place] [address] [place] IMMUNOGLOBULINS,IGG,IGA,IGMo n 07-18-2024 IgA [Mass/Vol] 18 mg/dL Low 70-400 [facility] Comment on above: Order Comment: Speci men Type: BLOOD SPECIMENOrdering Facility: [facility] Address: [address] [place] [address] Performed By: #### S ERIMM ####[facility] LABCLIA [id number] [place] [address] [place] IgG [Mass/Vol] 262 mg/dL Low 700-1600 [facility] Comment on above: Order Comment: Speci men Type: BLOOD SPECIMENOrdering Facility: [facility] Address: [address] [place] [address] Performed By: #### S ERIMM ####[facility] LABCLIA [id number] [place] [address] [place] IgM [Mass/Vol] 28 mg/dL Low 40-230 [facility] Comment on above: Order Comment: Speci men Type: BLOOD SPECIMENOrdering Facility: [facility] Address: [address] [place] [address] Performed By: #### S ERIMM ####[facility] LABCLIA [id number] [place] [address] [place] KAPPA/EMERY,FREE,SERon 2023 Immunoglobulin light chains.kappa.free (S) [Mass/Vol] 33.8 mg/L High 3.3-19.4 [facility] Comment on above: Order Comment: Speci men Type: BLOOD SPECIMENOrdering Facility: [facility] Address: [address] [place] [address] Result Comment: Rare ly, increased serum free light chains levels may not be detected or accurately quantified due to prozone phenomenon or in high viscosity samples using this immunoturbidimetric assay. Correlation with other laboratory results and clinical findings is recommended.The [place] Free Light Chain was performed using the Binding Site Optilite immunoturbidimetric method. Result obtained with different assay methods or kits cannot be used interchangeably. Performed By: #### K LFRS ####[facility] LABCLIA [id number] [place] [address] [place] Immunoglobulin light chains.kappa/Immunoglob ulin light chains.lambda (S) [Mass ratio] 2.13 High 0.26-1.65 [facility] Comment on above: Order Comment: Speci men Type: BLOOD SPECIMENOrdering Facility: [facility] Address: [address] [place] [address] Performed By: #### K LFRS ####[facility] LABCLIA [id number] [place] [address] [place] Immunoglobulin light chains.lambda.free [Mass/Vol] 15.9 mg/L Normal 5.7-26.3 [facility] Comment on above: Order Comment: Speci men Type: BLOOD SPECIMENOrdering Facility: [facility] Address: [address] [place] [address] Result Comment: Rare ly, increased serum free light chains levels may not be detected or accurately quantified due to prozone phenomenon or in high viscosity samples using this immunoturbidimetric assay. Correlation with other laboratory results and clinical findings is recommended.The L[place] Free Light Chain was performed using the Binding Site Optilite immunoturbidimetric method. Result obtained with different assay methods or kits cannot be used interchangeably. Performed By: #### K LFRS ####[facility] LABCLIA [id number] [place] [address] [place] LDH SerPl-cCncon 07-18-2024 LDH [Catalytic activity/Vol] 213 U/L Normal 135-225 [facility] Comment on above: Order Comment: Speci men Type: BLOOD SPECIMENOrdering Facility: [facility] Address: [address] [place] [address] Performed By: #### 2 532-0 ####[facility] LABCLIA [id number] [place] [address] [place] PROTEIN ELECTROPHORESIS SERU M (P)on 07-18-2024 Albumin [Mass/Vol] 3.56 g/dL Normal 3.43-5.41 [facility] Comment on above: Order Comment: Speci men Type: BLOOD SPECIMENOrdering Facility: [facility] Address: [address] [place] [address] Performed By: #### L [id number] ####[facility] LABIA [id number] [place] [address] [place] Alpha 1 globulin Elph [Mass/Vol] 0.39 g/dL Normal 0.18-0.43 [facility] Comment on above: Order Comment: Speci men Type: BLOOD SPECIMENOrdering Facility: [facility] Address: [address] [place] [address] Performed By: #### L [id number] ####[facility] LABIA [id number] [place] [address] [place] Alpha 2 globulin Elph [Mass/Vol] 0.90 g/dL Normal 0.42-0.98 [facility] Comment on above: Order Comment: Speci men Type: BLOOD SPECIMENOrdering Facility: [facility] Address: [address] [place] [address] Performed By: #### L [id number] ####[facility] LABCLIA [id number] [place] [address] [place] Beta globulin Elph [Mass/Vol] 0.51 g/dL Low 0.61-1.17 [facility] Comment on above: Order Comment: Speci men Type: BLOOD SPECIMENOrdering Facility: [facility] Address: [address] [place] [address] Performed By: #### L [id number] ####[facility] LABCLIA [id number] [address] [place] Gamma globulin Elph [Mass/Vol] 0.24 g/dL Low 0.53-1.51 [facility] Comment on above: Order Comment: Jasmina allen Type: BLOOD SPECIMENOrdering Facility: [facility] Address: [address] [place] [address] Performed By: #### L [id number] ####[facility] LABCLIA [id number] [address] STATES OF [facility] INTERPRETATION COMMENT FOR PROTEIN ELECTROPHORESIS Hypogammaglobulinemia is present, which can be seen in the setting of monoclonal gammopathy. If clinically indicated, monoclonal protein analysis and serum free light chain analysis are suggested to evaluate further for monoclonal gammopathy. Normal [facility] Comment on above: Order Comment: Jasmina allen Type: BLOOD SPECIMENOrdering Facility: [facility] Address: [address] [place] [address] Performed By: #### L [id number] ####[facility] LABIA [id number] [address] OF [facility] M-PROTEIN LOCATION Normal [facility] Comment on above: Order Comment: Jasmina allen Type: BLOOD SPECIMENOrdering Facility: [facility] Address: [address] [place] [address] Result Comment: Not Applicable. Performed By: #### L [id number] ####[facility] LABIA [id number] [place] [address] [place] Protein Fractions [Interp] No definitive M protein is identified on protein electrophoresis. Normal No definitive M protein is identified on protein electrophores is. [facility] Comment on above: Order Comment: Jasmina allen Type: BLOOD SPECIMENOrdering Facility: [facility] Address: [address] [place] [address] Performed By: #### L [id number] ####[facility] LABCLIA [id number] [address] [place] Protein.monoclonal Elph [Mass/Vol] 0.00 g/dL Normal <=0.00 [facility] Comment on above: Order Comment: Speci men Type: BLOOD SPECIMENOrdering Facility: [facility] Address: [address] [place] [address] Performed By: #### L [id number] ####[facility] LABCLIA [id number] [place] [id number] [place] SPE STAFF REVIEW Reviewed by Andi Mercedes MD, Ph.D ([id number]) Normal [facility] Comment on above: Order Comment: Speci men Type: BLOOD SPECIMENOrdering Facility: [facility] Address: [address] [place] [address] Performed By: #### L [id number] ####[facility] LABCLIA [id number] [place] [id number] [place] Phosphate SerPl-mCncon 07-18 Phosphate [Mass/Vol] 4.1 mg/dL Normal 2.7-4.8 [facility] Comment on above: Order Comment: Speci men Type: BLOOD SPECIMENOrdering Facility: [facility] Address: [address] [place] [address] Performed By: #### 2 777-1, 95049-3 ####[facility] [id number] [place] [address] [place] Prot SerPl-mCncon 07-18-2024 Protein [Mass/Vol] 5.6 g/dL Low 6.3-8.0 [facility] Comment on above: Order Comment: Speci men Type: BLOOD SPECIMENOrdering Facility: [facility] Address: [address] [place] [address] Performed By: #### 2 885-2, 1952-1 ####[facility] LABCLIA [id number] [place] [id number] [place] CNPNon 07-12-2024 CNPN Normal [facility] CNPNon 06-19-2024 CNPN Normal [facility] B2 Microglob SerPl-mCncon Srcp-4-Buxddtlhvoopv [Mass/Vol] 16.7 ug/mL High <3.1 [facility] Comment on above: Order Comment: Speci men Type: BLOOD SPECIMENOrdering Facility: [facility] Address: [address] [place] [address] Result Comment: Beta -2 Microglobulin test is performed using the [employer] immunoturbidimetric method. Results obtained with different methods or kits cannot be used interchangeably. Performed By: #### 1 952-1, 2885-2 ####[facility] LABCLIA [id number] [place] [address] [place] CBC W Auto Differential pane l (Bld)on 06-13-2024 Basophils (Bld) [#/Vol] 0.08 10*3/uL Normal <0.11 [facility] Comment on above: Order Comment: Speci men Type: BLOOD SPECIMENOrdering Facility: [facility] Address: [address] [place] [address] Performed By: #### 5 7021-8 ####[facility] [id number] [place] [address] [place] Basophils/100 WBC (Bld) 1.7 % Normal C [facility] Comment on above: Order Comment: Speci men Type: BLOOD SPECIMENOrdering Facility: [facility] Address: [address] [place] [address] Performed By: #### 5 7021-8 ####[facility] [id number] [place] [address] [place] Differential cell count method Nom (Bld) Auto Normal [facility] Comment on above: Order Comment: Speci men Type: BLOOD SPECIMENOrdering Facility: [facility] Address: [address] [place] [address] Performed By: #### 5 7021-8 ####[facility] BEACHESWKSLIA [id number] [place] [address] [place] Eosinophils (Bld) [#/Vol] 0.30 10*3/uL Normal <0.46 [facility] Comment on above: Order Comment: Speci men Type: BLOOD SPECIMENOrdering Facility: [facility] Address: [address] [place] [address] Performed By: #### 5 7021-8 ####[facility] [id number] [place] [address] [place] Eosinophils/100 WBC (Bld) 6.2 % Normal [facility] Comment on above: Order Comment: Speci men Type: BLOOD SPECIMENOrdering Facility: [facility] Address: [address] [place] [address] Performed By: #### 5 7021-8 ####[facility] [id number] [place] [address] [place] Erythrocyte distribution width (RBC) [Ratio] 15.3 % High 11.5-15.0 [facility] Comment on above: Order Comment: Speci men Type: BLOOD SPECIMENOrdering Facility: [facility] Address: [address] [place] [address] Performed By: #### 5 7021-8 ####[facility] [id number] [place] [address] [place] Hematocrit (Bld) [Volume fraction] 34.0 % Low 39.0-51.0 [facility] Comment on above: Order Comment: Speci men Type: BLOOD SPECIMENOrdering Facility: [facility] Address: [address] [place] [address] Performed By: #### 5 7021-8 ####[facility]ENTERNCLI [id number] [place] [address] [place] Hemoglobin (Bld) [Mass/Vol] 11.0 g/dL Low 13.0-17.0 [facility] Comment on above: Order Comment: Speci men Type: BLOOD SPECIMENOrdering Facility: [facility] Address: [address] [place] [address] Performed By: #### 5 7021-8 ####[facility] [id number] [place] [address] [place] Immature granulocytes (Bld) [#/Vol] 10*3/uL Normal <0.10 [facility] Comment on above: Order Comment: Speci men Type: BLOOD SPECIMENOrdering Facility: [facility] Address: [address] [place] [address] Performed By: #### 5 7021-8 ####[facility] [id number] [place] [address] [place] Immature granulocytes/100 WBC (Bld) 0.2 % Normal [facility] Comment on above: Order Comment: Speci men Type: BLOOD SPECIMENOrdering Facility: [facility] Address: [address] [place] [address] Performed By: #### 5 7021-8 ####[facility] [id number] [place] [address] [place] Lymphocytes (Bld) [#/Vol] 0.61 10*3/uL Low 1.00-4.00 [facility] Comment on above: Order Comment: Speci men Type: BLOOD SPECIMENOrdering Facility: [facility] Address: [address] [place] [address] Performed By: #### 5 7021-8 ####[facility] [id number] [place] [address] [place] Lymphocytes/100 WBC (Bld) 12.6 % Normal [facility] Comment on above: Order Comment: Speci men Type: BLOOD SPECIMENOrdering Facility: [facility] Address: [address] [place] [address] Performed By: #### 5 7021-8 ####[facility] CENTERFRANCISCOBEAVER VAL[facility] [id number] [address] MCH (RBC) [Entitic mass] 33.5 pg Normal 26.0-34.0 [facility] Comment on above: Order Comment: Speci men Type: BLOOD SPECIMENOrdering Facility: [facility] Address: [address] [place] [address] Performed By: #### 5 7021-8 ####[facility] [id number] [place] [address] [place] MCHC (RBC) [Mass/Vol] 32.4 g/dL Normal 30.5-36.0 [facility] Comment on above: Order Comment: Speci men Type: BLOOD SPECIMENOrdering Facility: [facility] Address: [address] [place] [address] Performed By: #### 5 7021-8 ####[facility] [id number] [place] [address] [place] MCV (RBC) [Entitic vol] 103.7 fL High 80.0-100.0 C [facility] Comment on above: Order Comment: Speci men Type: BLOOD SPECIMENOrdering Facility: [facility] Address: [address] [place] [address] Performed By: #### 5 7021-8 ####[facility] HOSPITALLI [id number] [place] [address] [place] Monocytes (Bld) [#/Vol] 0.72 10*3/uL Normal <0.87 [facility] Comment on above: Order Comment: Speci men Type: BLOOD SPECIMENOrdering Facility: [facility] Address: [address] [place] [address] Performed By: #### 5 7021-8 ####[facility] MANJULAWNCLIA [id number] [place] [address] [place] Monocytes/100 WBC (Bld) 14.9 % Normal [facility] Comment on above: Order Comment: Speci men Type: BLOOD SPECIMENOrdering Facility: [facility] Address: [address] [place] [address] Performed By: #### 5 7021-8 ####[facility] [id number] [place] [address] [place] Neutrophils (Bld) [#/Vol] 3.12 10*3/uL Normal 1.45-7.50 [facility] Comment on above: Order Comment: Speci men Type: BLOOD SPECIMENOrdering Facility: [facility] Address: [address] [place] [address] Performed By: #### 5 7021-8 ####[facility] [id number] [place] [address] [place] Neutrophils/100 WBC (Bld) 64.4 % Normal [facility] Comment on above: Order Comment: Speci men Type: BLOOD SPECIMENOrdering Facility: [facility] Address: [address] [place] [address] Performed By: #### 5 7021-8 ####[facility] [id number] [place] [address] [place] Nucleated RBC (Bld) [#/Vol] 10*3/uL Normal <0.01 [facility] Comment on above: Order Comment: Speci men Type: BLOOD SPECIMENOrdering Facility: [facility] Address: [address] [place] [address] Performed By: #### 5 7021-8 ####[facility]ENTERNCLIA [id number] [place] [address] [place] Nucleated RBC/100 WBC (Bld) [Ratio] 0.0 /100 WBC Normal [facility] Comment on above: Order Comment: Speci men Type: BLOOD SPECIMENOrdering Facility: [facility] Address: [address] [place] [address] Performed By: #### 5 7021-8 ####[facility] [id number] [place] [address] [place] Platelet mean volume (Bld) [Entitic vol] 10.4 fL Normal 9.0-12.7 [facility] Comment on above: Order Comment: Speci men Type: BLOOD SPECIMENOrdering Facility: [facility] Address: [address] [place] [address] Performed By: #### 5 7021-8 ####[facility] [id number] [place] [address] [place] Platelets (Bld) [#/Vol] 142 10*3/uL Low 150-400 [facility] Comment on above: Order Comment: Speci men Type: BLOOD SPECIMENOrdering Facility: [facility] Address: [address] [place] [address] Performed By: #### 5 7021-8 ####[facility] [id number] [place] [address] [place] RBC (Bld) [#/Vol] 3.28 10*6/uL Low 4.20-6.00 [facility] Comment on above: Order Comment: Speci men Type: BLOOD SPECIMENOrdering Facility: [facility] Address: [address] [place] [address] Performed By: #### 5 7021-8 ####[facility] [id number] [place] [address] [place] WBC (Bld) [#/Vol] 4.84 10*3/uL Normal 3.70-11.00 [facility] Comment on above: Order Comment: Speci men Type: BLOOD SPECIMENOrdering Facility: [facility] Address: [address] [place], [place] [address] Performed By: #### 5 7021-8 ####[facility]ENTERNCLIA [id number] [place] [address] [place] CNOVSPon 06-13-2024 CNOVSP Normal [facility] Comprehensive metabolic 2000 panelon 06-13-2024 Albumin [Mass/Vol] 3.9 g/dL Normal 3.9-4.9 [facility] Comment on above: Order Comment: Speci men Type: BLOOD SPECIMENOrdering Facility: [facility] Address: [address] [place], [place] [address] Performed By: #### 2 777-1, 09459-0, 2531-0 ####[facility]ENTERNCLIA [id number] [place] [address] [place] ALP [Catalytic activity/Vol] 112 U/L Normal 38-113 [facility] Comment on above: Order Comment: Speci men Type: BLOOD SPECIMENOrdering Facility: [facility] Address: [address] [place], [place] [address] Performed By: #### 2 777-1, 60064-5, 2531-0 ####[facility]ENTERNCLIA [id number] [place] [address] [place] ALT [Catalytic activity/Vol] 35 U/L Normal 10-54 [facility] Comment on above: Order Comment: Speci men Type: BLOOD SPECIMENOrdering Facility: [facility] Address: [address] [place], [place] [address] Performed By: #### 2 777-1, 84459-8, 2531-0 ####[facility] BEACHESWNCLIA [id number] [place] [address] [place] Anion gap [Moles/Vol] 11 mmol/L Normal 8-15 [facility] Comment on above: Order Comment: Speci men Type: BLOOD SPECIMENOrdering Facility: [facility] Address: [address] [place] [address] Performed By: #### 2 777-1, 49145-2, 2531-0 ####[facility] BEACHESWNCLIA [id number] [place] [address] [place] AST [Catalytic activity/Vol] 31 U/L Normal 14-40 [facility] Comment on above: Order Comment: Speci men Type: BLOOD SPECIMENOrdering Facility: [facility] Address: [address] [place] [address] Performed By: #### 2 777-1, 84921-0, 2531-0 ####[facility]ENTERNCLIA [id number] [place] [address] [place] Bilirubin [Mass/Vol] 0.3 mg/dL Normal 0.2-1.3 [facility] Comment on above: Order Comment: Speci men Type: BLOOD SPECIMENOrdering Facility: [facility] Address: [address] [place] [address] Performed By: #### 2 777-1, , 2531-0 ####[facility] HOSPITALLIA [id number] [place] [address] [place] Calcium [Mass/Vol] 9.7 mg/dL Normal 8.5-10.2 [facility] Comment on above: Order Comment: Speci men Type: BLOOD SPECIMENOrdering Facility: [facility] Address: [address] [place], [place] [address] Performed By: #### 2 777-1, 39877-7, 0 ####[facility]ENTERNCLIA [id number] [place] [address] [place] Chloride [Moles/Vol] 99 mmol/L Normal 98-107 [facility] Comment on above: Order Comment: Speci men Type: BLOOD SPECIMENOrdering Facility: [facility] Address: [address] [place], [place] [address] Performed By: #### 2 777-1, 56465-5, 253-0 ####[facility]ENTERNCLIA [id number] [place] [address] [place] CO2 [Moles/Vol] 31 mmol/L High 22-30 [facility] Comment on above: Order Comment: Speci men Type: BLOOD SPECIMENOrdering Facility: [facility] Address: [address] [place], [place] [address] Performed By: #### 2 777-1, 97833-1, 2531-0 ####[facility] CENTERNCA [id number] [place] [address] [place] Creatinine [Mass/Vol] 3.70 mg/dL High 0.73-1.22 [facility] Comment on above: Order Comment: Speci men Type: BLOOD SPECIMENOrdering Facility: [facility] Address: [address] [place] [address] Performed By: #### 2 777-1, 04903-1, 2531-0 ####[facility]ENTERNCLIA [id number] [place] [address] [place] Creatinine and Glomerular filtration rate.predicted panel (S/P/Bld) 17 mL/min/1.73m??? Low >=60 [facility] Comment on above: Order Comment: Speci men Type: BLOOD SPECIMENOrdering Facility: [facility] Address: [address] [place] [address] Result Comment: Radha mated Glomerular Filtration Rate (eGFR) is calculated using the 2020 CKD-EPI creatinine equation. This equation utilizes serum creatinine, sex, and age as parameters. The creatinine assay has traceable calibration to isotope dilution-mass spectrometry. Refer to KDIGO guidelines for clinical interpretation. In patients with unstable renal function, e.g. those with acute kidney injury, the eGFR may not accurately reflect actual GFR. Performed By: #### 2 777-1, 62083-9, ####[facility] MARIA ESTHER MANJULASUMIWNCLIA [id number] [place] [address] [place] Glucose [Mass/Vol] 88 mg/dL Normal 74-99 [facility] Comment on above: Order Comment: Speci men Type: BLOOD SPECIMENOrdering Facility: [facility] Address: [address] [place] [address] Result Comment: The [place] Diabetes Association (ADA) provides guidance for cutoff values for fasting glucose and random glucose. The ADA defines fasting as no caloric intake for at least 8 hours. Fasting plasma glucose results between 100 to 125 mg/dL indicate increased risk for diabetes (prediabetes).Fasting plasma glucose results greater than or equal to 126 mg/dL meet the criteria for diagnosis of diabetes. In the absence of unequivocal hyperglycemia, results should be confirmed by repeat testing. In a patient with classic symptoms of hyperglycemia or hyperglycemic crisis, random plasma glucose results greater than or equal to 200 mg/dL meet the criteria for diagnosis of diabetes.Reference: Standards of Medical Care in Diabetes 2016, [place] [employer]. Diabetes Care. 2016.39(Suppl 1). Performed By: #### 2 777-1, 29889-5, ####[facility] MARIA ESTHER MANJULAWNCLIA [id number] [place] [address] [place] Potassium [Moles/Vol] 4.4 mmol/L Normal 3.7-5.1 [facility] Comment on above: Order Comment: Speci men Type: BLOOD SPECIMENOrdering Facility: [facility] Address: [address] [place] [id number] Performed By: #### 2 777-1, 43580-2, ####[facility] MANJULASANTA ANANCLIA [id number] [place] [address] [place] Protein [Mass/Vol] 6.0 g/dL Low 6.3-8.0 [facility] Comment on above: Order Comment: Speci men Type: BLOOD SPECIMENOrdering Facility: [facility] Address: [address] [place] [address] Performed By: #### 2 777-1, 04548-7, 253-0 ####[facility]ENTERNCLIA [id number] [place] [address] [place] Sodium [Moles/Vol] 141 mmol/L Normal 136-144 [facility] Comment on above: Order Comment: Speci men Type: BLOOD SPECIMENOrdering Facility: [facility] Address: [address] [place] [address] Performed By: #### 2 777-1, 44190-0, 253-0 ####[facility]ENTERNCLIA [id number] [place] [address] [place] Urea nitrogen [Mass/Vol] 40 mg/dL High 9-24 [facility] Comment on above: Order Comment: Speci men Type: BLOOD SPECIMENOrdering Facility: [facility] Address: [address] [place] [address] Performed By: #### 2 777-1, 42019-6, 2530 ####[facility]ENTERNCLIA [id number] [place] [address] [place] IMMUNOFIXATION SCREEN, SERUM on 06-13-2024 INTERPRETATION (MPA) Atypical restricted bands are present in the IgG and kappa regions. Consistent with IgG kappa monoclonal gammopathy. Normal [facility] Comment on above: Order Comment: Speci men Type: BLOOD SPECIMENOrdering Facility: [facility] Address: [address] [place] [address] Performed By: #### I [facility] ####[facility] LABCLIA [id number] [address] [address] [place] MPA RESULT M protein is present. Abnormal No M p rotein is identified. [facility] Comment on above: Order Comment: Speci men Type: BLOOD SPECIMENOrdering Facility: [facility] Address: [address] [place] [address] Performed By: #### I FESC ####[facility] LABCLIA [id number] [address] [place] STAFF REVIEW (MPA) Reviewed by Jasiel Syed M.D. Normal [facility] Comment on above: Order Comment: Speci men Type: BLOOD SPECIMENOrdering Facility: [facility] Address: [address] [place] [address] Performed By: #### I FES ####[facility] LABCLIA [id number] [place] [address] [place] IMMUNOGLOBULINS,IGG,IGA,IGMo n 06-13-2024 IgA [Mass/Vol] 17 mg/dL Low 70-400 [facility] Comment on above: Order Comment: Speci men Type: BLOOD SPECIMENOrdering Facility: [facility] Address: [address] [place] [address] Performed By: #### S ERIMM ####[facility] LABCLIA [id number] [place] [address] [place] IgG [Mass/Vol] 268 mg/dL Low 700-1600 [facility] Comment on above: Order Comment: Speci men Type: BLOOD SPECIMENOrdering Facility: [facility] Address: [address] [place] [address] Performed By: #### S ERIMM ####[facility] LABCLIA [id number] [place] [address] [place] IgM [Mass/Vol] 27 mg/dL Low 40-230 [facility] Comment on above: Order Comment: Speci men Type: BLOOD SPECIMENOrdering Facility: [facility] Address: [address] [place] [address] Performed By: #### S ERIMM ####[facility] LABCLIA [id number] [place] [address] [place] KAPPA/EMERY,FREE,SERon 2023 Immunoglobulin light chains.kappa.free (S) [Mass/Vol] 37.4 mg/L High 3.3-19.4 [facility] Comment on above: Order Comment: Speci men Type: BLOOD SPECIMENOrdering Facility: [facility] Address: [address] [place] [address] Result Comment: Rare ly, increased serum free light chains levels may not be detected or accurately quantified due to prozone phenomenon or in high viscosity samples using this immunoturbidimetric assay. Correlation with other laboratory results and clinical findings is recommended.The [place] Free Light Chain was performed using the Binding Site [employer] immunoturbidimetric method. Result obtained with different assay methods or kits cannot be used interchangeably. Performed By: #### K LFRS ####[facility] LABCLIA [id number] [place] [address] [place] Immunoglobulin light chains.kappa/Immunoglob ulin light chains.lambda (S) [Mass ratio] 2.23 High 0.26-1.65 [facility] Comment on above: Order Comment: Speci men Type: BLOOD SPECIMENOrdering Facility: [facility] Address: [address] [place] [address] Performed By: #### K LFRS ####[facility] LABCLIA [id number] [place] [address] [place] Immunoglobulin light chains.lambda.free [Mass/Vol] 16.8 mg/L Normal 5.7-26.3 [facility] Comment on above: Order Comment: Speci men Type: BLOOD SPECIMENOrdering Facility: [facility] Address: [address] [place] [address] Result Comment: Rare ly, increased serum free light chains levels may not be detected or accurately quantified due to prozone phenomenon or in high viscosity samples using this immunoturbidimetric assay. Correlation with other laboratory results and clinical findings is recommended.The Lambda Free Light Chain was performed using the Binding [employer] immunoturbidimetric method. Result obtained with different assay methods or kits cannot be used interchangeably. Performed By: #### K LFRS ####[facility] [id number] [place] [address] [place] LDH SerPl-cCncon 06-13-2024 LDH [Catalytic activity/Vol] 194 U/L Normal 135-225 [facility] Comment on above: Order Comment: Speci men Type: BLOOD SPECIMENOrdering Facility: [facility] Address: [address] [place] [address] Performed By: #### 2 777-1, 93801-1, 2532-0 ####[facility] [id number] [address] [place] PROTEIN ELECTROPHORESIS SERU M (P)on 06-13-2024 Albumin [Mass/Vol] 3.33 g/dL Low 3.43-5.41 [facility] Comment on above: Order Comment: Speci men Type: BLOOD SPECIMENOrdering Facility: [facility] Address: [address] [place] [address] Performed By: #### L [id number] ####[facility] [id number] [place] [address] [place] Alpha 1 globulin Elph [Mass/Vol] 0.39 g/dL Normal 0.18-0.43 [facility] Comment on above: Order Comment: Speci men Type: BLOOD SPECIMENOrdering Facility: [facility] Address: [address] [place] [address] Performed By: #### L [id number] ####[facility] [id number] [place] [id number] [place] Alpha 2 globulin Elph [Mass/Vol] 0.83 g/dL Normal 0.42-0.98 [facility] Comment on above: Order Comment: Speci men Type: BLOOD SPECIMENOrdering Facility: [facility] Address: [address] [place] [address] Performed By: #### L [id number] ####[facility] LABCLIA [id number] [place] [address] [place] Beta globulin Elph [Mass/Vol] 0.53 g/dL Low 0.61-1.17 [facility] Comment on above: Order Comment: Speci men Type: BLOOD SPECIMENOrdering Facility: [facility] Address: [address] [place] [address] Performed By: #### L [id number] ####[facility] LABCLIA [id number] [place] [address] [place] Gamma globulin Elph [Mass/Vol] 0.22 g/dL Low 0.53-1.51 [facility] Comment on above: Order Comment: Speci men Type: BLOOD SPECIMENOrdering Facility: [facility] Address: [address] [place] [address] Performed By: #### L [id number] ####[facility] LABCLIA [id number] [place] [address] [place] INTERPRETATION COMMENT FOR PROTEIN ELECTROPHORESIS Normal [facility] Comment on above: Order Comment: Speci men Type: BLOOD SPECIMENOrdering Facility: [facility] Address: [address] [place] [address] Performed By: #### L [id number] ####[facility] [id number] [place] [address] [place] M-PROTEIN LOCATION Normal [facility] Comment on above: Order Comment: Speci men Type: BLOOD SPECIMENOrdering Facility: [facility] Address: [address] [place] [address] Result Comment: Not Applicable. Performed By: #### L [id number] ####[facility] LABCLIA [id number] [place] [id number] [place] Protein Fractions [Interp] An atypical region of restricted mobility is identified on protein electrophoresis. Abnormal No definitive M protein is identified on protein electrophores is. [facility] Comment on above: Order Comment: Speci men Type: BLOOD SPECIMENOrdering Facility: [facility] Address: [address] [place] [address] Performed By: #### L [id number] ####[facility] LABCLIA [id number] [place] [address] [place] Protein.monoclonal Elph [Mass/Vol] 0.00 g/dL Normal <=0.00 [facility] Comment on above: Order Comment: Speci men Type: BLOOD SPECIMENOrdering Facility: [facility] Address: [address] [place] [address] Performed By: #### L [id number] ####[facility] [id number] [place] [address] [place] SPE STAFF REVIEW Reviewed by Jasiel Syed M.D. Normal [facility] Comment on above: Order Comment: Speci men Type: BLOOD SPECIMENOrdering Facility: [facility] Address: [address] [place] [address] Performed By: #### L [id number] ####[facility] [id number] [place] [address] [place] Phosphate SerPl-mCncon 06-13 Phosphate [Mass/Vol] 3.3 mg/dL Normal 2.7-4.8 [facility] Comment on above: Order Comment: Speci men Type: BLOOD SPECIMENOrdering Facility: [facility] Address: [address] [place] [address] Performed By: #### 2 777-1, 43759-3, 2532-0 ####[facility] [id number] [place] [address] [place] Prot SerPl-mCncon 06-13-2024 Protein [Mass/Vol] 5.3 g/dL Low 6.3-8.0 [facility] Comment on above: Order Comment: Speci men Type: BLOOD SPECIMENOrdering Facility: [facility] Address: [address] [place] [address] Performed By: #### 1 952-1, 2885-2 ####[facility] LABCLIA [id number] [address] [id number], [place] [address] [place] CBC W Auto Differential pane l (Bld)on 05-30-2024 Basophils (Bld) [#/Vol] 0.12 10*3/uL High <0.11 [facility] Comment on above: Order Comment: Speci men Type: BLOOD SPECIMENOrdering Facility: [facility] Address: [address] [place] [address] Performed By: #### 5 7021-8 ####[facility] [id number] [place] [address] [place] Basophils/100 WBC (Bld) 1.7 % Normal C [facility] Comment on above: Order Comment: Speci men Type: BLOOD SPECIMENOrdering Facility: [facility] Address: [address] [place] [address] Performed By: #### 5 7021-8 ####[facility] [id number] [place] [address] [place] Differential cell count method Nom (Bld) Auto Normal [facility] Comment on above: Order Comment: Speci men Type: BLOOD SPECIMENOrdering Facility: [facility] Address: [address] [place] [address] Performed By: #### 5 7021-8 ####[facility] [id number] [place] [address] [place] Eosinophils (Bld) [#/Vol] 0.50 10*3/uL High <0.46 [facility] Comment on above: Order Comment: Speci men Type: BLOOD SPECIMENOrdering Facility: [facility] Address: [address] [place] [address] Performed By: #### 5 7021-8 ####[facility] MANJULAWNCLIA [id number] [place] [address] [place] Eosinophils/100 WBC (Bld) 7.3 % Normal [facility] Comment on above: Order Comment: Speci men Type: BLOOD SPECIMENOrdering Facility: [facility] Address: [address] [place] [address] Performed By: #### 5 7021-8 ####[facility] CENTERFRANCISCOLIA [id number] [place] [address] [place] Erythrocyte distribution width (RBC) [Ratio] 16.2 % High 11.5-15.0 [facility] Comment on above: Order Comment: Speci men Type: BLOOD SPECIMENOrdering Facility: [facility] Address: [address] [place] [address] Performed By: #### 5 7021-8 ####[facility] [id number] [place] [address] [place] Hematocrit (Bld) [Volume fraction] 36.0 % Low 39.0-51.0 [facility] Comment on above: Order Comment: Speci men Type: BLOOD SPECIMENOrdering Facility: [facility] Address: [address] [place] [address] Performed By: #### 5 7021-8 ####[facility] CENTERFRANCISCOLIA [id number] [place] [address] [place] Hemoglobin (Bld) [Mass/Vol] 11.6 g/dL Low 13.0-17.0 [facility] Comment on above: Order Comment: Speci men Type: BLOOD SPECIMENOrdering Facility: [facility] Address: [address] [place] [address] Performed By: #### 5 7021-8 ####[facility] CENTERNCLIA [id number] [place] [address] [place] Immature granulocytes (Bld) [#/Vol] 10*3/uL Normal <0.10 [facility] Comment on above: Order Comment: Speci men Type: BLOOD SPECIMENOrdering Facility: [facility] Address: [address] [place] [address] Performed By: #### 5 7021-8 ####[facility] HOSPITALLIA [id number] [place] [address] [place] Immature granulocytes/100 WBC (Bld) 0.3 % Normal [facility] Comment on above: Order Comment: Speci men Type: BLOOD SPECIMENOrdering Facility: [facility] Address: [address] [place] [address] Performed By: #### 5 7021-8 ####[facility] [id number] [place] [address] [place] Lymphocytes (Bld) [#/Vol] 0.77 10*3/uL Low 1.00-4.00 [facility] Comment on above: Order Comment: Speci men Type: BLOOD SPECIMENOrdering Facility: [facility] Address: [address] [place] [address] Performed By: #### 5 7021-8 ####[facility] [id number] [place] [address] [place] Lymphocytes/100 WBC (Bld) 11.2 % Normal [facility] Comment on above: Order Comment: Speci men Type: BLOOD SPECIMENOrdering Facility: [facility] Address: [address] [place] [address] Performed By: #### 5 7021-8 ####[facility] [id number] [place] [address] [place] MCH (RBC) [Entitic mass] 33.9 pg Normal 26.0-34.0 [facility] Comment on above: Order Comment: Speci men Type: BLOOD SPECIMENOrdering Facility: [facility] Address: [address] [place] [address] Performed By: #### 5 7021-8 ####[facility] MANJULANOÉ [id number] [place] [address] [place] MCHC (RBC) [Mass/Vol] 32.2 g/dL Normal 30.5-36.0 [facility] Comment on above: Order Comment: Speci men Type: BLOOD SPECIMENOrdering Facility: [facility] Address: [address] [place] [address] Performed By: #### 5 7021-8 ####[facility] CENTERDAISY [id number] [place] [address] [place] MCV (RBC) [Entitic vol] 105.3 fL High 80.0-100.0 C [facility] Comment on above: Order Comment: Speci men Type: BLOOD SPECIMENOrdering Facility: [facility] Address: [address] [place] [address] Performed By: #### 5 7021-8 ####[facility] [id number] [place] [address] [place] Monocytes (Bld) [#/Vol] 1.04 10*3/uL High <0.87 [facility] Comment on above: Order Comment: Speci men Type: BLOOD SPECIMENOrdering Facility: [facility] Address: [address] [place] [address] Performed By: #### 5 7021-8 ####[facility] [id number] [place] [address] [place] Monocytes/100 WBC (Bld) 15.1 % Normal C [facility] Comment on above: Order Comment: Speci men Type: BLOOD SPECIMENOrdering Facility: [facility] Address: [address] [place] [address] Performed By: #### 5 7021-8 ####[facility] MILLTOWNCLIA [id number] [place] [address] [place] Neutrophils (Bld) [#/Vol] 4.42 10*3/uL Normal 1.45-7.50 [facility] Comment on above: Order Comment: Speci men Type: BLOOD SPECIMENOrdering Facility: [facility] Address: [address] [place] [address] Performed By: #### 5 7021-8 ####[facility] HOSPITALLIA [id number] [place] [address] [place] Neutrophils/100 WBC (Bld) 64.4 % Normal [facility] Comment on above: Order Comment: Speci men Type: BLOOD SPECIMENOrdering Facility: [facility] Address: [address] [place] [address] Performed By: #### 5 7021-8 ####[facility] [id number] [place] [address] [place] Nucleated RBC (Bld) [#/Vol] 10*3/uL Normal <0.01 [facility] Comment on above: Order Comment: Speci men Type: BLOOD SPECIMENOrdering Facility: [facility] Address: [address] [place] [address] Performed By: #### 5 7021-8 ####[facility] HOSPITALLIA [id number] [place] [address] [place] Nucleated RBC/100 WBC (Bld) [Ratio] 0.0 /100 WBC Normal [facility] Comment on above: Order Comment: Speci men Type: BLOOD SPECIMENOrdering Facility: [facility] Address: [address] [place] [address] Performed By: #### 5 7021-8 ####[facility] CENTERNCLIA [id number] [place] [address] [place] Platelet mean volume (Bld) [Entitic vol] 9.6 fL Normal 9.0-12.7 [facility] Comment on above: Order Comment: Speci men Type: BLOOD SPECIMENOrdering Facility: [facility] Address: [address] [place] [address] Performed By: #### 5 7021-8 ####[facility]ENTERNCLIA [id number] [place] [address] [place] Platelets (Bld) [#/Vol] 148 10*3/uL Low 150-400 [facility] Comment on above: Order Comment: Speci men Type: BLOOD SPECIMENOrdering Facility: [facility] Address: [address] [place] [address] Performed By: #### 5 7021-8 ####[facility]ENTERNCLIA [id number] [place] [address] [place] RBC (Bld) [#/Vol] 3.42 10*6/uL Low 4.20-6.00 [facility] Comment on above: Order Comment: Speci men Type: BLOOD SPECIMENOrdering Facility: [facility] Address: [address] [place] [address] Performed By: #### 5 7021-8 ####[facility]ENTERNCLIA [id number] [place] [address] [place] WBC (Bld) [#/Vol] 6.87 10*3/uL Normal 3.70-11.00 [facility] Comment on above: Order Comment: Speci men Type: BLOOD SPECIMENOrdering Facility: [facility] Address: [address] [place] [address] Performed By: #### 5 7021-8 ####[facility]ENTERNCLIA [id number] [place] [address] [place] B2 Microglob SerPl-mCncon Gppl-2-Rtlrgieuoympn [Mass/Vol] 17.4 ug/mL High <3.1 [facility] Comment on above: Order Comment: Speci men Type: BLOOD SPECIMENOrdering Facility: [facility] Address: [address] [place] [address] Result Comment: Beta -2 Microglobulin test is performed using the [employer] immunoturbidimetric method. Results obtained with different methods or kits cannot be used interchangeably. Performed By: #### 3 024-7, 3016-3, 1952-1, 3053-6 ####[facility] LABCLIA [id number] [facility] [place] [address] [place] CBC W Auto Differential pane l (Bld)on 05-16-2024 Basophils (Bld) [#/Vol] 0.13 10*3/uL High <0.11 [facility] Comment on above: Order Comment: Speci men Type: BLOOD SPECIMENOrdering Facility: [facility] Address: [address] [place] [address] Performed By: #### 5 7021-8 ####[facility] HOSPITALLIA [id number] [place] [address] [place] Basophils/100 WBC (Bld) 1.3 % Normal C [facility] Comment on above: Order Comment: Speci men Type: BLOOD SPECIMENOrdering Facility: [facility] Address: [address] [place] [address] Performed By: #### 5 7021-8 ####[facility] BEACHESWNCLIA [id number] [address] [place] Differential cell count method Nom (Bld) Auto Normal [facility] Comment on above: Order Comment: Speci men Type: BLOOD SPECIMENOrdering Facility: [facility] Address: [address] [place] [address] Performed By: #### 5 7021-8 ####[facility] CENTERNCLIA [id number] [place] [address] [place] Eosinophils (Bld) [#/Vol] 0.16 10*3/uL Normal <0.46 [facility] Comment on above: Order Comment: Speci men Type: BLOOD SPECIMENOrdering Facility: [facility] Address: [address] [place] [address] Performed By: #### 5 7021-8 ####[facility] CENTERNCPASCUAL [id number] [place] [address] [place] Eosinophils/100 WBC (Bld) 1.6 % Normal [facility] Comment on above: Order Comment: Speci men Type: BLOOD SPECIMENOrdering Facility: [facility] Address: [address] [place] [address] Performed By: #### 5 7021-8 ####[facility]ENTERNCBEAV[facility] VAL[facility] [id number] [place] [address] [place] Erythrocyte distribution width (RBC) [Ratio] 17.0 % High 11.5-15.0 [facility] Comment on above: Order Comment: Speci men Type: BLOOD SPECIMENOrdering Facility: [facility] Address: [address] [place] [address] Performed By: #### 5 7021-8 ####[facility] CENTERNCLI [id number] [place] [address] [place] Hematocrit (Bld) [Volume fraction] 37.2 % Low 39.0-51.0 [facility] Comment on above: Order Comment: Speci men Type: BLOOD SPECIMENOrdering Facility: [facility] Address: [address] [place] [address] Performed By: #### 5 7021-8 ####[facility] CENTERNCLIA [id number] [place] [address] [place] Hemoglobin (Bld) [Mass/Vol] 12.0 g/dL Low 13.0-17.0 [facility] Comment on above: Order Comment: Speci men Type: BLOOD SPECIMENOrdering Facility: [facility] Address: [address] [place] [address] Performed By: #### 5 7021-8 ####[facility] MANJULANOÉ [id number] [place] [address] [place] Immature granulocytes (Bld) [#/Vol] 0.05 10*3/uL Normal <0.10 [facility] Comment on above: Order Comment: Speci men Type: BLOOD SPECIMENOrdering Facility: [facility] Address: [address] [place] [address] Performed By: #### 5 7021-8 ####[facility] [id number] [place] [address] [place] Immature granulocytes/100 WBC (Bld) 0.5 % Normal [facility] Comment on above: Order Comment: Speci men Type: BLOOD SPECIMENOrdering Facility: [facility] Address: [address] [place] [address] Performed By: #### 5 7021-8 ####[facility] [id number] [place] [address] [place] Lymphocytes (Bld) [#/Vol] 0.94 10*3/uL Low 1.00-4.00 [facility] Comment on above: Order Comment: Speci men Type: BLOOD SPECIMENOrdering Facility: [facility] Address: [address] [place] [address] Performed By: #### 5 7021-8 ####[facility] HOSPITALLIA [id number] [place] [address] [place] Lymphocytes/100 WBC (Bld) 9.5 % Normal [facility] Comment on above: Order Comment: Speci men Type: BLOOD SPECIMENOrdering Facility: [facility] Address: [address] [place] [address] Performed By: #### 5 7021-8 ####[facility] CENTERNCCARMELINA [id number] [place] [address] [place] MCH (RBC) [Entitic mass] 34.3 pg High 26.0-34.0 [facility] Comment on above: Order Comment: Speci men Type: BLOOD SPECIMENOrdering Facility: [facility] Address: [address] [place] [address] Performed By: #### 5 7021-8 ####[facility] HOSPITALPASCULA [id number] [place] [address] [place] MCHC (RBC) [Mass/Vol] 32.3 g/dL Normal 30.5-36.0 [facility] Comment on above: Order Comment: Speci men Type: BLOOD SPECIMENOrdering Facility: [facility] Address: [address] [place] [address] Performed By: #### 5 7021-8 ####[facility] [id number] [place] [address] [place] MCV (RBC) [Entitic vol] 106.3 fL High 80.0-100.0 C [facility] Comment on above: Order Comment: Speci men Type: BLOOD SPECIMENOrdering Facility: [facility] Address: [address] [place] [address] Performed By: #### 5 7021-8 ####[facility] [id number] [place] [address] [place] Monocytes (Bld) [#/Vol] 0.88 10*3/uL High <0.87 [facility] Comment on above: Order Comment: Speci men Type: BLOOD SPECIMENOrdering Facility: [facility] Address: [address] [place] [address] Performed By: #### 5 7021-8 ####[facility]ENTERNCBEAV[facility] [id number] [place] [address] [place] Monocytes/100 WBC (Bld) 8.9 % Normal [facility] Comment on above: Order Comment: Speci men Type: BLOOD SPECIMENOrdering Facility: [facility] Address: [address] [place] [address] Performed By: #### 5 7021-8 ####[facility] BEACHESWKSLIA [id number] [place] [address] [place] Neutrophils (Bld) [#/Vol] 7.73 10*3/uL High 1.45-7.50 [facility] Comment on above: Order Comment: Speci men Type: BLOOD SPECIMENOrdering Facility: [facility] Address: [address] [place] [address] Performed By: #### 5 7021-8 ####[facility] [id number] [place] [address] [place] Neutrophils/100 WBC (Bld) 78.2 % Normal [facility] Comment on above: Order Comment: Speci men Type: BLOOD SPECIMENOrdering Facility: [facility] Address: [address] [place] [address] Performed By: #### 5 7021-8 ####[facility] HOSPITALLIA [id number] [place] [address] [place] Nucleated RBC (Bld) [#/Vol] 10*3/uL Normal <0.01 [facility] Comment on above: Order Comment: Speci men Type: BLOOD SPECIMENOrdering Facility: [facility] Address: [address] [place] [address] Performed By: #### 5 7021-8 ####[facility] [id number] [place] [address] [place] Nucleated RBC/100 WBC (Bld) [Ratio] 0.0 /100 WBC Normal [facility] Comment on above: Order Comment: Speci men Type: BLOOD SPECIMENOrdering Facility: [facility] Address: [address] [place] [address] Performed By: #### 5 7021-8 ####[facility] BELLA [id number] [place] [address] [place] Platelet mean volume (Bld) [Entitic vol] 10.3 fL Normal 9.0-12.7 [facility] Comment on above: Order Comment: Speci men Type: BLOOD SPECIMENOrdering Facility: [facility] Address: [address] [place] [address] Performed By: #### 5 7021-8 ####[facility] MANJULASANTA ANANCCARMELINA [id number] [place] [address] [place] Platelets (Bld) [#/Vol] 154 10*3/uL Normal 150-400 [facility] Comment on above: Order Comment: Speci men Type: BLOOD SPECIMENOrdering Facility: [facility] Address: [address] [place] [address] Performed By: #### 5 7021-8 ####[facility] [id number] [place] [address] [place] RBC (Bld) [#/Vol] 3.50 10*6/uL Low 4.20-6.00 [facility] Comment on above: Order Comment: Speci men Type: BLOOD SPECIMENOrdering Facility: [facility] Address: [address] [place] [address] Performed By: #### 5 7021-8 ####[facility] [id number] [place] [address] [place] WBC (Bld) [#/Vol] 9.89 10*3/uL Normal 3.70-11.00 [facility] Comment on above: Order Comment: Speci men Type: BLOOD SPECIMENOrdering Facility: [facility] Address: [address] [place], [place] [address] Performed By: #### 5 7021-8 ####[facility] MANJULAWNCLIA [id number] [place] [address] [place] CNOVSPon 05-16-2024 CNOVSP Normal [facility] metabolic 2000 panelon 05-16-2024 Albumin [Mass/Vol] 3.7 g/dL Low 3.9-4.9 [facility] Comment on above: Order Comment: Speci men Type: BLOOD SPECIMENOrdering Facility: [facility] Address: [address] [place] [address] Performed By: #### 3 084-1, 2532-0, 64914-5 ####[facility] BEACHESWNCLIA [id number] [place] [address] [place] ALP [Catalytic activity/Vol] 133 U/L High 38-113 [facility] Comment on above: Order Comment: Speci men Type: BLOOD SPECIMENOrdering Facility: [facility] Address: [address] [place] [address] Performed By: #### 3 084-1, 2532-0, 01893-5 ####[facility] [id number] [place] [address] [place] ALT [Catalytic activity/Vol] 20 U/L Normal 10-54 [facility] Comment on above: Order Comment: Speci men Type: BLOOD SPECIMENOrdering Facility: [facility] Address: [address] [place] [address] Performed By: #### 3 084-1, 2532-0, 38924-3 ####[facility] BEACHESWNCLIA [id number] [place] [address] [place] Anion gap [Moles/Vol] 11 mmol/L Normal 8-15 [facility] Comment on above: Order Comment: Speci men Type: BLOOD SPECIMENOrdering Facility: [facility] Address: [address] [place], [place] [address] Performed By: #### 3 084-1, 2532-0, 80002-2 ####[facility] BELLA [id number] [place] [address] [place] AST [Catalytic activity/Vol] 25 U/L Normal 14-40 [facility] Comment on above: Order Comment: Speci men Type: BLOOD SPECIMENOrdering Facility: [facility] Address: [address] [place] [address] Performed By: #### 3 084-1, 2532-0, 18281-8 ####[facility] MANJULASANTA ANAFRANCISCOPASCUALA [id number] [place] [address] [place] Bilirubin [Mass/Vol] 0.3 mg/dL Normal 0.2-1.3 [facility] Comment on above: Order Comment: Speci men Type: BLOOD SPECIMENOrdering Facility: [facility] Address: [address] [place] [address] Performed By: #### 3 084-1, 2532-0, 34119-6 ####[facility] MANJULAINDIANA [facility] H[facility]ITALPASCUALA [id number] [place] [address] [place] Calcium [Mass/Vol] 9.5 mg/dL Normal 8.5-10.2 [facility] Comment on above: Order Comment: Speci men Type: BLOOD SPECIMENOrdering Facility: [facility] Address: [address] [place] [address] Performed By: #### 3 084-1, 2532-0, 68401-1 ####[facility]ENTERNCLIA [id number] [place] [address] [place] Chloride [Moles/Vol] 99 mmol/L Normal 98-107 [facility] Comment on above: Order Comment: Speci men Type: BLOOD SPECIMENOrdering Facility: [facility] Address: [address] [place] [id number] Performed By: #### 3 084-1, 2532-0, 14320-5 ####[facility] HOSPITALPASCUAL [id number] [place] [address] [place] CO2 [Moles/Vol] 29 mmol/L Normal 22-30 [facility] Comment on above: Order Comment: Speci men Type: BLOOD SPECIMENOrdering Facility: [facility] Address: [address] [place] [address] Performed By: #### 3 084-1, 2532-0, 81434-4 ####[facility]ENTERNC[facility] [id number] [place] [address] [place] Creatinine [Mass/Vol] 3.41 mg/dL High 0.73-1.22 [facility] Comment on above: Order Comment: Speci men Type: BLOOD SPECIMENOrdering Facility: [facility] Address: [address] [place] [address] Performed By: #### 3 084-1, 253-0, 17671-9 ####[facility] [id number] [address] [place] Creatinine and Glomerular filtration rate.predicted panel (S/P/Bld) 18 mL/min/1.73m??? Low >=60 [facility] Comment on above: Order Comment: Speci men Type: BLOOD SPECIMENOrdering Facility: [facility] Address: [address] [place] [address] Result Comment: Radha mated Glomerular Filtration Rate (eGFR) is calculated using the 2020 CKD-EPI creatinine equation. This equation utilizes serum creatinine, sex, and age as parameters. The creatinine assay has traceable calibration to isotope dilution-mass spectrometry. Refer to KDIGO guidelines for clinical interpretation. In patients with unstable renal function, e.g. those with acute kidney injury, the eGFR may not accurately reflect actual GFR. Performed By: #### 3 084-1, 253-0, 88184-7 ####[facility] MANJULAWNCLIA [id number] [place] [address] [place] Glucose [Mass/Vol] 113 mg/dL High 74-99 [facility] Comment on above: Order Comment: Speci men Type: BLOOD SPECIMENOrdering Facility: [facility] Address: [address] [place] [address] Result Comment: The [place] Diabetes Association (ADA) provides guidance for cutoff values for fasting glucose and random glucose. The ADA defines fasting as no caloric intake for at least 8 hours. Fasting plasma glucose results between 100 to 125 mg/dL indicate increased risk for diabetes (prediabetes).Fasting plasma glucose results greater than or equal to 126 mg/dL meet the criteria for diagnosis of diabetes. In the absence of unequivocal hyperglycemia, results should be confirmed by repeat testing. In a patient with classic symptoms of hyperglycemia or hyperglycemic crisis, random plasma glucose results greater than or equal to 200 mg/dL meet the criteria for diagnosis of diabetes.Reference: Standards of Medical Care in Diabetes 2016, [place] [employer]. Diabetes Care. 2016.39(Suppl 1). Performed By: #### 3 084-1, 2532-0, 82298-2 ####[facility]ERNCLIA [id number] [place] [address] [place] Potassium [Moles/Vol] 3.8 mmol/L Normal 3.7-5.1 [facility] Comment on above: Order Comment: Speci men Type: BLOOD SPECIMENOrdering Facility: [facility] Address: [address] [place] [address] Performed By: #### 3 084-1, 2532-0, 63427-4 ####[facility]CLIA [id number] [place] [address] [place] Protein [Mass/Vol] 5.8 g/dL Low 6.3-8.0 [facility] Comment on above: Order Comment: Speci men Type: BLOOD SPECIMENOrdering Facility: [facility] Address: [address] [place] [address] Performed By: #### 3 084-1, 2532-0, 11624-4 ####[facility]CLIA [id number] [place] [address] [place] Sodium [Moles/Vol] 139 mmol/L Normal 136-144 [facility] Comment on above: Order Comment: Speci men Type: BLOOD SPECIMENOrdering Facility: [facility] Address: [address] [place] [address] Performed By: #### 3 084-1, 2532-0, 79951-9 ####[facility] [id number] [place] [address] [place] Urea nitrogen [Mass/Vol] 32 mg/dL High 9-24 [facility] Comment on above: Order Comment: Speci men Type: BLOOD SPECIMENOrdering Facility: [facility] Address: [address] [place] [address] Performed By: #### 3 084-1, 2532-0, 70559-5 ####[facility]ENT[facility]CLIA [id number] [place] [address] [place] IMMUNOFIXATION SCREEN, SERUM on 05-16-2024 INTERPRETATION (MPA) Atypical restricted bands are present in the IgG and kappa regions. Consistent with IgG kappa monoclonal gammopathy. Normal [facility] Comment on above: Order Comment: Speci men Type: BLOOD SPECIMENOrdering Facility: [facility] Address: [address] [place] [address] Performed By: #### I FES ####[facility] LABCLIA [id number] [place] [address] [place] MPA RESULT M protein is present. Abnormal No M p rotein is identified. [facility] Comment on above: Order Comment: Speci men Type: BLOOD SPECIMENOrdering Facility: [facility] Address: [address] [place] [address] Performed By: #### I FESC ####[facility] LABCLIA [id number] [place] [address] [place] STAFF REVIEW ([facility]) Reviewed by Andi Mercedes MD, Ph.D ([id number]) Normal [facility] Comment on above: Order Comment: Speci men Type: BLOOD SPECIMENOrdering Facility: [facility] Address: [address] [place] [address] Performed By: #### I FES ####[facility] LABCLIA [id number] [place] [address] [place] IMMUNOGLOBULINS,IGG,IGA,IGMo n 05-16-2024 IgA [Mass/Vol] 15 mg/dL Low 70-400 [facility] Comment on above: Order Comment: Speci men Type: BLOOD SPECIMENOrdering Facility: [facility] Address: [address] [place] [address] Performed By: #### S ERIMM ####[facility] LABIA [id number] [place] [address] [place] IgG [Mass/Vol] 274 mg/dL Low 700-1600 [facility] Comment on above: Order Comment: Speci men Type: BLOOD SPECIMENOrdering Facility: [facility] Address: [address] [place] [address] Performed By: #### S ERIMM ####[facility] LABCLIA [id number] [place] [address] [place] IgM [Mass/Vol] 32 mg/dL Low 40-230 [facility] Comment on above: Order Comment: Speci men Type: BLOOD SPECIMENOrdering Facility: [facility] Address: [address] [place] [address] Performed By: #### S ERIMM ####[facility] LABCLIA [id number] [place] [address] [place] KAPPA/EMERY,FREE,SERon 2023 Immunoglobulin light chains.kappa.free (S) [Mass/Vol] 30.0 mg/L High 3.3-19.4 [facility] Comment on above: Order Comment: Speci men Type: BLOOD SPECIMENOrdering Facility: [facility] Address: [address] [place] [address] Result Comment: Rare ly, increased serum free light chains levels may not be detected or accurately quantified due to prozone phenomenon or in high viscosity samples using this immunoturbidimetric assay. Correlation with other laboratory results and clinical findings is recommended.The [place] Free Light Chain was performed using the Binding Site Optilite immunoturbidimetric method. Result obtained with different assay methods or kits cannot be used interchangeably. Performed By: #### K LFRS ####[facility] LABCLIA [id number] [place] [address] [place] Immunoglobulin light chains.kappa/Immunoglob ulin light chains.lambda (S) [Mass ratio] 2.07 High 0.26-1.65 [facility] Comment on above: Order Comment: Speci men Type: BLOOD SPECIMENOrdering Facility: [facility] Address: [address] [place] [address] Performed By: #### K LFRS ####[facility] LABCLIA [id number] [place] [address] [place] Immunoglobulin light chains.lambda.free [Mass/Vol] 14.5 mg/L Normal 5.7-26.3 [facility] Comment on above: Order Comment: Speci men Type: BLOOD SPECIMENOrdering Facility: [facility] Address: [address] [place] [address] Result Comment: Rare ly, increased serum free light chains levels may not be detected or accurately quantified due to prozone phenomenon or in high viscosity samples using this immunoturbidimetric assay. Correlation with other laboratory results and clinical findings is recommended.The [place] Free Light Chain was performed using the Binding Site Optilite immunoturbidimetric method. Result obtained with different assay methods or kits cannot be used interchangeably. Performed By: #### K LFRS ####[facility] LABCLIA [id number] [place] [address] [place] LDH SerPl-cCncon 05-16-2024 LDH [Catalytic activity/Vol] 214 U/L Normal 135-225 [facility] Comment on above: Order Comment: Speci men Type: BLOOD SPECIMENOrdering Facility: [facility] Address: [address] [place] [address] Performed By: #### 3 084-1, 2532-0, 25721-8 ####[facility] [id number] [place] [address] [place] PROTEIN ELECTROPHORESIS SERU M (P)on 05-16-2024 Albumin [Mass/Vol] 3.38 g/dL Low 3.43-5.41 [facility] Comment on above: Order Comment: Speci men Type: BLOOD SPECIMENOrdering Facility: [facility] Address: [address] [place] [address] Performed By: #### L [id number] ####[facility] LABIA [id number] [place] [address] [place] Alpha 1 globulin Elph [Mass/Vol] 0.36 g/dL Normal 0.18-0.43 [facility] Comment on above: Order Comment: Speci men Type: BLOOD SPECIMENOrdering Facility: [facility] Address: [address] [place] [address] Performed By: #### L [id number] ####[facility] LABIA [id number] [place] [address] [place] Alpha 2 globulin Elph [Mass/Vol] 0.74 g/dL Normal 0.42-0.98 [facility] Comment on above: Order Comment: Speci men Type: BLOOD SPECIMENOrdering Facility: [facility] Address: [address] [place] [address] Performed By: #### L [id number] ####[facility] LABIA [id number] [place] [address] [place] Beta globulin Elph [Mass/Vol] 0.50 g/dL Low 0.61-1.17 [facility] Comment on above: Order Comment: Speci men Type: BLOOD SPECIMENOrdering Facility: [facility] Address: [address] [place] [address] Performed By: #### L [id number] ####[facility] LABCLIA [id number] [address] [place] Gamma globulin Elph [Mass/Vol] 0.23 g/dL Low 0.53-1.51 [facility] Comment on above: Order Comment: Speci men Type: BLOOD SPECIMENOrdering Facility: [facility] Address: [address] [place] [address] Performed By: #### L [id number] ####[facility] LABCLIA [id number] [address] STATES OF [facility] INTERPRETATION COMMENT FOR PROTEIN ELECTROPHORESIS See separate immunofixation report for characterization of monoclonal gammopathy. Normal [facility] Comment on above: Order Comment: Speci men Type: BLOOD SPECIMENOrdering Facility: [facility] Address: [address] [place] [address] Performed By: #### L [id number] ####[facility] LABCLIA [id number] [place] [address] [place] M SPIKE CONCENTRATION 2 0.04 g/dL High <=0.00 C [facility] Comment on above: Order Comment: Speci men Type: BLOOD SPECIMENOrdering Facility: [facility] Address: [address] [place] [address] Performed By: #### L [id number] ####[facility] LABCLIA [id number] [address] [place] M-PROTEIN LOCATION Gamma Fraction 1 Normal [facility] Comment on above: Order Comment: Speci men Type: BLOOD SPECIMENOrdering Facility: [facility] Address: [address] [place] [address] Performed By: #### L [id number] ####[facility] LABIA [id number] [place] [address] [place] M-PROTEIN LOCATION 2 Gamma Fraction 2 Normal [facility] Comment on above: Order Comment: Speci men Type: BLOOD SPECIMENOrdering Facility: [facility] Address: [address] [place] [address] Performed By: #### L [id number] ####[facility] LABIA [id number] [place] [address] [place] Protein Fractions [Interp] An M protein is identified on protein electrophoresis. Abnormal No definitive M protein is identified on protein electrophores is. [facility] Comment on above: Order Comment: Speci men Type: BLOOD SPECIMENOrdering Facility: [facility] Address: [address] [place] [address] Performed By: #### L [id number] ####[facility] LABIA [id number] [place] [address] [place] Protein.monoclonal Elph [Mass/Vol] 0.08 g/dL High <=0.00 [facility] Comment on above: Order Comment: Speci men Type: BLOOD SPECIMENOrdering Facility: [facility] Address: [address] [place] [address] Performed By: #### L [id number] ####[facility] LABIA [id number] [place] [id number] [place] SPE STAFF REVIEW Reviewed by Andi Mercedes MD, Ph.D ([id number]) Normal [facility] Comment on above: Order Comment: Speci men Type: BLOOD SPECIMENOrdering Facility: [facility] Address: [address] [place] [address] Performed By: #### L [id number] ####[facility] LABIA [id number] [address] [place] [address] [place] Phosphate SerPl-mCncon 05-16 Phosphate [Mass/Vol] 3.1 mg/dL Normal 2.7-4.8 [facility] Comment on above: Order Comment: Speci men Type: BLOOD SPECIMENOrdering Facility: [facility] Address: [address] [place], [place] [address] Performed By: #### 2 777-1 ####[facility] [id number] [place] [address] [place] Prot SerPl-mCncon 05-16-2024 Protein [Mass/Vol] 5.2 g/dL Low 6.3-8.0 [facility] Comment on above: Order Comment: Speci men Type: BLOOD SPECIMENOrdering Facility: [facility] Address: [address] [place] [address] Performed By: #### 2 885-2 ####[facility] [id number] [place] [address] [place] T3 SerPl-mCncon 05-16-2024 T3 [Mass/Vol] 56 ng/dL Low 79-165 [facility] Comment on above: Order Comment: Speci men Type: BLOOD SPECIMENOrdering Facility: [facility] Address: [address] [place], [place] [address] Performed By: #### 3 024-7, 3, 1949-09, 3053-02 ####[facility] [id number] [place] [id number] [place] T4 Free SerPl-mCncon 024 Free T4 [Mass/Vol] 1.2 ng/dL Normal 0.9-1.7 [facility] Comment on above: Order Comment: Speci men Type: BLOOD SPECIMENOrdering Facility: [facility] Address: [address] [place] [address] Performed By: #### 3 024-7, 3015-11, 1949-09, 3053-6 ####[facility] LABCLIA [id number] [address] [address] [place] TSH SerPl-aCncon 05-16-2024 TSH Qn 1.950 m[IU]/L Normal 0.270-4.200 [facility] Comment on above: Order Comment: Speci men Type: BLOOD SPECIMENOrdering Facility: [facility] Address: [address] [place], [place] [address] Performed By: #### 3 024-7, 3016-3, 2-1, 3053-6 ####[facility] LABCLIA [id number] [address] [address] [place] Urate SerPl-mCncon Urate [Mass/Vol] 4.0 mg/dL Normal 4.0-8.1 [facility] Comment on above: Order Comment: Speci men Type: BLOOD SPECIMENOrdering Facility: [facility] Address: [address] [place], [place] [address] Performed By: #### 3 084-1, 2532-0, 66702-1 ####[facility] [id number] [place] [address] [place] PSA (OUTSIDE)on 05-14-2024 [facility] PSA,Total- Diagnosticon 04-19 PSA, DIAGNOSTIC 0.06 ng/mL Normal 0.0-4.0 [facility] Comment on above: Result Comment: This test was performed using the TPSA assay method for the [employer] chemistry system. Values obtained with different assay methods cannot be used interchangably. When changing PSA assays in the course of monitoring a patient, additional sequential testing should be carried out to confirm baseline values. Performed By: #### L [id number] #### [facility] [address] [place], [address] CNPNon 05-07-2024 CNPN Normal [facility] HIGH SENSITIVITY TROPONIN To n 04-18-2024 Interpretation and review of laboratory results Abnormal [facility] Troponin T.cardiac High sensitivity method [Mass/Vol] 303 ng/L High NINF - 12 ng/L [facility] Absolute lymphocyte countOrd ered By: Jonathan Estrada on 12-18-2023 Lymphocytes Auto (Unsp spec) [#/Vol] 0.09 10*3/uL 0.83-4.51 [facility] Automated lymphocyte count a s percentage of total leukocytesOrdered By: Jonathan Estrada on 12-18-2023 Lymphocytes/100 WBC Auto (Unsp spec) 1.0 % 19-41 [facility] Basophil percentageOrdered B y: Jonathan Estrada on 12-18-2023 Basophils/100 WBC (Bld) 0.3 % 0-1 [facility] Chloride [Moles/Vol] 105 mmol/L 98-107 [facility] Eosinophils/100 WBC (Bld) 0.6 % 0-5 [facility] Glucose [Mass/Vol] 143 mg/dL 74-106 [facility] Comment on above: Fasting Glucose resu lt greater than or equal to 126 mg/dL suggests DIABETES MELLITUS per A.D.A. criteria. Hemoglobin (Bld) [Mass/Vol] 10.4 g/dL 13.0-16.5 [facility] Monocytes/100 WBC (Bld) 5.3 % 0-10 [facility] Neutrophils (Bld) [#/Vol] 7.9 10*3/uL 2.0-7.7 [facility] Neutrophils/100 WBC (Bld) 92.1 % 47-70 [facility] Potassium [Moles/Vol] 4.1 mmol/L 3.5-5.1 [facility] Sodium [Moles/Vol] 134 mmol/L 136-145 [facility] WBC (Bld) [#/Vol] 8.6 10*3/uL 4.4-11.0 [facility] Determination of erythrocyte mean corpuscular volume (MCV)Ordered By: Jonathan Estrada on 12-18-2023 MCV (RBC) [Entitic vol] 100.3 fL 80-94 [facility] Erythrocyte distribution wid th ratioOrdered By: Jonathan Estrada on 12-18-2023 Erythrocyte distribution width (RBC) [Ratio] 14.7 % 11.6-14.6 [facility] Erythrocyte distribution wid th standard deviationOrdered By: Jonathan Estrada on 12-18-2023 Erythrocyte distribution width (RBC) [Entitic vol] 53.9 fL 35.1-43.9 [facility] Hematocrit Auto (Bld) [Volum e fraction]Ordered By: Jonathan Estrada on 12-18-2023 Hematocrit (Bld) [Volume fraction] 31.5 % 40-54 [facility] Immature granulocytes/100 WB C Auto (Bld)Ordered By: Jonathan Estrada on 12-18-2023 Immature granulocytes/100 WBC (Bld) 0.700 % 0.0-0.9 [facility] Comment on above: IG% - Immature Granu locytes (promyelocytes, myelocytes and metamyelocytes) > 1% indicates that a LEFT SHIFT is Present. Laboratory - Chemistry and C hemistry - challengeOrdered By: Jonathan Estrada on 12-18-2023 CO2 [Moles/Vol] 17.0 mmol/L 21.0-32.0 [facility] Urea nitrogen/Creatinine [Mass ratio] 17.6 mg/mg 10-20 [facility] Laboratory - Hematology and Cell countsOrdered By: Jonathan Estrada on 12-18-2023 MCH (RBC) [Entitic mass] 33.1 pg 27.0-32.0 [facility] MCHC (RBC) [Mass/Vol] 33.0 g/dL 32-36 [facility] Nucleated RBC/100 WBC (Bld) [Ratio] 0 % 0-5 [facility] Platelet mean volume (Bld) [Entitic vol] 10.4 fL 6.2-12.0 [facility] Platelets (Bld) [#/Vol] 204 10*3/uL 150-450 [facility] No Panel InformationOrdered By: Jonathan Estrada on 12-18-2023 Estimated Creatinine Clearance Calc 6.69 ml/min [facility] Estimated GFR (MDRD) Amer 11 mL/min >60 [facility] Comment on above: GFR Calc Estimated GFR (MDRD) Non-Af Amer 9 mL/min >60 [facility] Comment on above: Non- GFR Calc RBC Auto (Bld) [#/Vol]Ordere d By: Jonathan Estrada on 12-18-2023 RBC (Bld) [#/Vol] 3.14 10*6/uL 4.6-6.2 [facility] Serum or plasma calcium marce urement (mass/volume)Ordered By: Jonathan Estrada on 12-18-2023 Calcium [Mass/Vol] 8.6 mg/dL 8.5-10.1 [facility] Serum or plasma creatinine m easurement (mass/volume)Ordered By: Jonathan Estrada on 12-18-2023 Creatinine [Mass/Vol] 6.75 mg/dL 0.70-1.30 [facility] Comment on above: The validity of the calculated GFR & GFRAA in patients over 70 years has not been determined. Clinical correlation is essential. Serum or plasma urea nitroge n measurement (mass/volume)Ordered By: Jonathan Estrada on 12-18-2023 Urea nitrogen [Mass/Vol] 119 mg/dL 7-18 [facility] Comment on above: Critical Result(s) C alled at: 10:50:57 12/18/2023 by: Kristina Du. Results read back by same. Thin prep Papanicolaou smear with manual screeningOrdered By: Jonathan Estrada on 12-18-2023 Thin prep Papanicolaou smear with manual screening 12 5-15 [facility] Absolute lymphocyte countOrd ered By: Jose Miguel Fernandez on 12-15-2023 Lymphocytes Auto (Unsp spec) [#/Vol] 0.06 10*3/uL 0.83-4.51 [facility] Activated partial thrombopla stin time (aPTT) in platelet poor plasma by coagulation aOrdered By: Jose Miguel Fernandez on 12-15-2023 aPTT Coag (PPP) [Time] 27.2 s 24.1-36.2 [facility] Automated lymphocyte count a s percentage of total leukocytesOrdered By: Jose Miguel Fernandez on 12-15-2023 Lymphocytes/100 WBC Auto (Unsp spec) 0.7 % 19-41 [facility] Basophil percentageOrdered B y: Jose Miguel Fernandez on 12-15-2023 Basophil percentage 50-100 SEEN /hpf 0-5 [facility] Basophils/100 WBC (Bld) 0.4 % 0-1 [facility] Bilirubin [Mass/Vol] 0.30 mg/dL 0.20-1.00 [facility] Comment on above: For patients on eltr ombopag therapy, use of Dimension [place] TBIL is not recommended. Chloride [Moles/Vol] 105 mmol/L 98-107 [facility] Eosinophils/100 WBC (Bld) 0.3 % 0-5 [facility] Glucose [Mass/Vol] 116 mg/dL 74-106 [facility] Comment on above: Fasting Glucose resu lt from 100 to 125 mg/dL suggests IMPAIRED HOMEOSTASIS per A.D.A. criteria. Hemoglobin (Bld) [Mass/Vol] 10.0 g/dL 13.0-16.5 [facility] Lactate [Moles/Vol] 1.4 mmol/L 0.4-2.0 [facility] Monocytes/100 WBC (Bld) 4.7 % 0-10 [facility] Neutrophils (Bld) [#/Vol] 8.6 10*3/uL 2.0-7.7 [facility] Neutrophils/100 WBC (Bld) 93.4 % 47-70 [facility] Potassium [Moles/Vol] 4.2 mmol/L 3.5-5.1 [facility] Protein [Mass/Vol] 5.5 g/dL 6.4-8.2 [facility] Sodium [Moles/Vol] 137 mmol/L 136-145 [facility] WBC (Bld) [#/Vol] 9.2 10*3/uL 4.4-11.0 [facility] Bilirubin Test strip Ql (U)O rdered By: Jose Miguel Fernandez on 12-15-2023 Bilirubin Ql (U) Negative Negative [facility] Culture, urineOrdered By: Gilda Fernandez on 12-15-2023 Bacteria identified Cx Nom (U) Citrobacter koseri [facility] Determination of erythrocyte mean corpuscular volume (MCV)Ordered By: Jose Miguel Fernandez on 12-15-2023 MCV (RBC) [Entitic vol] 100.3 fL 80-94 [facility] Erythrocyte distribution wid th ratioOrdered By: Jose Miguel Fernandez on 12-15-2023 Erythrocyte distribution width (RBC) [Ratio] 14.6 % 11.6-14.6 [facility] Erythrocyte distribution wid th standard deviationOrdered By: Jose Miguel Fernandez on 12-15-2023 Erythrocyte distribution width (RBC) [Entitic vol] 52.9 fL 35.1-43.9 [facility] Hematocrit Auto (Bld) [Volum e fraction]Ordered By: Jose Miguel Fernandez on 12-15-2023 Hematocrit (Bld) [Volume fraction] 30.6 % 40-54 [facility] Immature granulocytes/100 WB C Auto (Bld)Ordered By: Jose Miguel Fernandez on 12-15-2023 Immature granulocytes/100 WBC (Bld) 0.500 % 0.0-0.9 [facility] Comment on above: IG% - Immature Granu locytes (promyelocytes, myelocytes and metamyelocytes) > 1% indicates that a LEFT SHIFT is Present. Ketones Test strip Ql (U)Ord ered By: Jose Miguel Fernandez on 12-15-2023 Ketones Ql (U) Negative Negative [facility] Laboratory - Chemistry and C hemistry - challengeOrdered By: Jose Miguel Fernandez on 12-15-2023 Albumin/Globulin [Mass ratio] 0.7 {ratio} 0.9-2.4 [facility] ALP [Catalytic activity/Vol] 138 U/L 45-117 [facility] ALT [Catalytic activity/Vol] 59 U/L 16-61 [facility] CO2 [Moles/Vol] 21.0 mmol/L 21.0-32.0 [facility] Globulin (S) [Mass/Vol] 3.2 g/dL 2.2-4.2 [facility] Urea nitrogen/Creatinine [Mass ratio] 19.1 mg/mg 10-20 [facility] Laboratory - CoagulationOrde red By: Jose Miguel Fernandez on 12-15-2023 INR Coag (Bld) [Relative time] 1.1 {INR} [facility] PT Coag (PPP) [Time] 13.8 s 11.7-14.9 [facility] Laboratory - Hematology and Cell countsOrdered By: Jose Miguel Fernandez on 12-15-2023 MCH (RBC) [Entitic mass] 32.8 pg 27.0-32.0 [facility] MCHC (RBC) [Mass/Vol] 32.7 g/dL 32-36 [facility] Nucleated RBC/100 WBC (Bld) [Ratio] 0 % 0-5 [facility] Platelet mean volume (Bld) [Entitic vol] 10.5 fL 6.2-12.0 [facility] Platelets (Bld) [#/Vol] 205 10*3/uL 150-450 [facility] Mucus LM Ql (Urine sed)Order ed By: Jose Miguel Fernandez on 12-15-2023 Mucus Ql (Urine sed) 0 SEEN /hpf [facility] Nitrite Test strip Ql (U)Ord ered By: Jose Miguel Fernandez on 12-15-2023 Nitrite Ql (U) Positive Negative [facility] No Panel InformationOrdered By: Jose Miguel Fernandez on 12-15-2023 Troponin I High Sensitivity 281 pg/mL 3.0-78.0 [facility] Comment on above: Critical Result(s) C alled at: 16:16:27 12/15/2023 by: RCIHARD REYES to Ana Johnston. Results read back by same. Please Note: New Test Units and Gender Specific Reference Ranges. For more information see Policy Stat Procedure N[place]ica High Sensitivity Troponin (TNIH) and attachments. Urine RBC 0-5 SEEN /hpf 0-5 [facility] Estimated Creatinine Clearance Calc 7.10 ml/min [facility] Estimated GFR (MDRD) Amer 11 mL/min >60 [facility] Comment on above: GFR Calc Estimated GFR (MDRD) Non-Af Amer 9 mL/min >60 [facility] Comment on above: Non- GFR Calc Protein Test strip Ql (U)Ord ered By: Jose Miguel Fernandez on 12-15-2023 Protein Ql (U) 500 mg/dl Negative [facility] RBC Auto (Bld) [#/Vol]Ordere d By: Jose Miguel Fernandez on 12-15-2023 RBC (Bld) [#/Vol] 3.05 10*6/uL 4.6-6.2 [facility] Serum or plasma calcium marce urement (mass/volume)Ordered By: Jose Miguel Fernandez on 12-15-2023 Calcium [Mass/Vol] 8.5 mg/dL 8.5-10.1 [facility] Serum or plasma creatinine m easurement (mass/volume)Ordered By: Jose Miguel Fernandez on 12-15-2023 Creatinine [Mass/Vol] 6.60 mg/dL 0.70-1.30 [facility] Comment on above: The validity of the calculated GFR & GFRAA in patients over 70 years has not been determined. Clinical correlation is essential. Serum or plasma urea nitroge n measurement (mass/volume)Ordered By: Jose Migule Fernandez on 12-15-2023 Urea nitrogen [Mass/Vol] 126 mg/dL 7-18 [facility] Comment on above: Critical Result(s) C alled at: 14:14:09 12/15/2023 by: [facility] Results read back by same. Squamous epithelial cells de tection in urine sediment by light microscopyOrdered By: Jose Miguel Fernandez on 12-15-2023 Epithelial cells.squamous LM Ql (Urine sed) 0 SEEN /hpf 0-5 [facility] Thin prep Papanicolaou smear with manual screeningOrdered By: Jose Miguel Fernandez on 12-15-2023 Thin prep Papanicolaou smear with manual screening 2.3 g/dL 3.2-5.0 [facility] Thin prep Papanicolaou smear with manual screening 30 U/L 15-37 [facility] Thin prep Papanicolaou smear with manual screening 11 5-15 [facility] Urine blood detectionOrdered By: Jose Miguel Fernandez on 12-15-2023 RBC Ql (U) 50 /ul Negative [facility] Urine clarityOrdered By: Maribell Fernandez on 12-15-2023 Clarity (U) Cloudy Clear [facility] Urine color determinationOrd ered By: Jose Miguel Fernandez on 12-15-2023 Color (U) Yellow Yellow [facility] Urine glucose detectionOrder ed By: Jose Miguel Fernandez on 12-15-2023 Glucose Ql (U) Normal mg/dl Normal [facility] Urine leukocyte esterase det ection by dipstickOrdered By: Jose Miguel Fernandez on 12-15-2023 Leukocyte esterase Test strip Ql (U) 500 /ul Negative [facility] Urine pHOrdered By: Jose Miguel Fernandez on 12-15-2023 pH (U) 6.0 [pH] 5.0 - 8.0 [facility] Urine sediment bacteria coun t by microscopy (number/high power field)Ordered By: Jose Miguel Fernandez on 12-15-2023 Bacteria LM.HPF (Urine sed) [#/Area] 2 /[HPF] None Seen [facility] Urine specific gravity measu rementOrdered By: Jose Miguel Fernandez on 12-15-2023 Specific gravity (U) [Rel density] 1.015 1.002-1.030 [facility] Urine urobilinogen measureme ntOrdered By: Jose Miguel Fernandez on 12-15-2023 Urobilinogen Ql (U) Normal mg/dl Normal [facility] OPERATIVE NOon 12-11-2023 OPERATIVE NO HNO ID: [id number] Author: ANKUR BENAVIDEZ PA-C Service: Vascular Surgery Author Type: Physician Stage Builder Type: Operative Report Filed: 12/12/2023 09:16 Note Text: OPERATIVE/PROCEDURE REPORT LOG ID: [id number] Surgery/Procedure Date: 12/11/2023 Incision/Procedure Start Time: 1:15 PM Incision Close/Procedure End Time: 1:28 PM Surgeon(s)/Proceduralis t(s) and Stage Builder(s): Surgeon(s) and Role: * Ankur Benavidez PA-C - Primary * Nydia Irby MD No Additional Staff Procedure(s): Placement of tunneled dialysis catheter Anesthesia: Local Anesthesia Operative indications: 73 year old male who presents for dialysis access Procedure details: The procedure was performed by Ankur Benavidez PA-C in the radiology suite. The patient was taken to the IR suite where informed consent was obtained. The patient was positioned supine on the operating table. The right neck was prepped and draped in the usual sterile fashion. All elements of maximal barrier technique including cap and mask, sterile gown, sterile gloves, a large sterile drape, hand hygiene, and appropriate prep agent for cutaneous antisepsis were utilized and maintained during the procedure. After time-in, the right internal jugular vein was interrogated with the ultrasound and found to be patent. Utilizing local anesthesia, ultrasound guidance, and a micropuncture system, access was obtained in the right internal jugular vein and the tip of the needle within the vein was documented. Utilizing guidewire exchange and Seldinger technique, a long pull away sheath was placed. A tunneled dialysis was selected to the appropriate size. An area of the anterior/superior chest was anesthetized using Lidocaine and the catheter tunneled through this site to the peel-away sheath. The catheter was then introduced into the sheath and guided fluoroscopically with the tip at the superior vena caval right atrial junction. The peel-away sheath was then removed and the catheter was sutured in place and bandaged. The catheter was flushed with Hep-Lock solution. The catheter is ready for use. Sign out was performed at case completion. Findings: Technically successful placement of tunneled dialysis catheter via the right internal jugular vein approach with the tip of the catheter in the superior vena cava right atrial junction. Pre-Op/Pre-Procedure Diagnosis: ESRD Post-Op/Post-Procedure Diagnosis: Same Estimated Blood Loss: Minimal (less than 25 mL) Specimens: None Implantable Devices: 14.5 Fr x 19 cm GlidePath catheter Complications: None Note: Patient requested sedation for the procedure. I explained that I do not sedate for my procedures but Dr. Irby was willing to accommodate need for anxiolytic medication. 1 mg of Versed was administered as procedure was starting. This medication was ordered by Dr. Irby whom was present for the duration of the procedure. I performed the entire procedure with Dr. Irby observing. Ankur Benavidez PA-C Vascular Surgery Service Pager: For questions or concerns Mon-Mon 6a-5p please page [phone]. After 5pm and on Weekends and Holidays, please page [phone] if in ICU or [phone] if on RNF. Normal [facility] NT PRO BNPon 05-23-2023 Natriuretic peptide.B prohormone N-Terminal [Mass/Vol] 47008 pg/mL High <125 pg/mL [facility] CRYOGLOBULIN, QUAL, REFLEX T O KATHRYN AND IGG,A,Mon 05-17-2023 CRYOGLOBULIN, QUALITATIVE NEG 72Hour Normal -72Hour [facility] Comment on above: Order Comment: Speci men Type: BLOOD SPECIMEN Ordering Facility: [facility] Address: [facility] [place] [address] Result Comment: This test was developed and its performance characteristics determined by [facility]. It has not been cleared or approved by the [place] Food and Drug Administration. This test was performed in a CLIA certified laboratory and is intended for clinical purposes. Performed By: [facility] [address] [place] [id number] [facility] Rn: Chuck Andrea MD, PhD CLIA Number: [id number] Performed By: #### [facility] #### [facility] CLIA [id number] [address] [place] [address] [address] ABD/PEL WO IVCONon 2022 [facility] BRIEF OP NOTon 04-14-2023 BRIEF OP NOT HNO ID: [id number] Author: Emil Mike MD, MD Service: Radiology Author Type: Physician Type: Brief Op Note Filed: 04/14/2023 12:35 PM Note Text: INTERVENTIONAL RADIOLOGY POST PROCEDURE NOTE DATE: 04/14/23 NAME: Edgar Henderson LOG ID: [id number] Pre-Procedure Diagnosis: CRF Yard Caller: Surgeon(s) and Role: * Emil Mike MD, MD - Primary Procedure: Random renal biopsy Anesthesia: Local Findings: Five 18 G Super core specimens Estimated Blood Loss: 0 ml Specimen: To histology Complications: None Post-Op/Post-Procedure Diagnosis: CRF Normal [facility] CT BIOPSY RENALon 04-14-2023 CT BIOPSY RENAL * * *Final Report* * * DATE OF EXAM: Apr 14 2023 2:48PM [facility] [address] - [address] BIOPSY RENAL / PROCEDURE REASON: sindi * * * * Physician Interpretation * * * * EXAM TITLE: CT GUIDED RANDOM BIOPSY OF LEFT KIDNEY DATE: April 14, 2023 at 11:46 AM COMPARISON: Ultrasound of the abdomen from March 30, 2023 CLINICAL INDICATION/HISTORY: The patient is a 72-year-old male with chronic renal failure.. CT Radiation dose: Integrated dose-length product (DLP) for this visit = 66.54 mGy*cm. CT Dose Reduction Employed: Automated exposure control (AEC) was used. TECHNIQUE: Informed consent was obtained from the patient. The risks, benefits, and alternatives to the procedure were explained. The patient agrees to the procedure. The patient requested only using local anesthetic. Total intra-service work encounter time was approximately 0 hours and 30 minutes. The patient was placed in a prone position and with CT guidance an appropriate skin entrance site was identified, prepped, and anesthetized. A guiding needle was passed into the periphery of the lower pole of left kidney and a 18-gauge super core needle was passed through the outer guiding needle and 5 passes with the super core needle were performed. Specimens were placed on saline soaked Telfa. The specimen was sent for histology. There were no apparent complications. The patient was discharged from the radiology department and will be observed in the POD. FINDINGS: The slot of the core biopsy needle passes through the lower pole of the left kidney. Core specimens appeared adequate. . IMPRESSION: Technically successful random CT-guided core biopsy of the lower pole of the left kidney. Specimen was sent for histology. Rn Sane: PSCB Transcribe Date/Time: Apr 14 2023 2:50P Dictated by : EMIL MIKE MD This examination was interpreted and the report reviewed and electronically signed by: EMIL MIKE MD on Apr 14 2023 2:52PM EST [id number] Normal [facility] HISTORY PHYSICALon 3 HISTORY PHYSICAL HNO ID: [id number] Author: Emil Mike MD, MD Service: Radiology Author Type: Physician Type: HANDP Filed: 04/14/2023 11:40 AM Note Text: UPDATED HISTORY AND PHYSICAL EXAMINATION Date: 04/14/23 Name: Edgar Henderson PHYSICAL EXAM MUST BE COMPLETED ON ADMISSION The History and Physical (completed in the past 30 days) has been reviewed and the patient has been examined. The contents accurately reflect the patient's condition with the following additions or revisions since the HANDP was completed. Examination indicates no changes. This HANDP can be found in the Electronic Medical Record dated 03/23/2023 @ 7:12 PM. Normal [facility] SURGICAL PATHOLOGYon 023 CASE REPORT Normal [facility] Comment on above: Order Comment: Speci tiffany Type: TISSUE SPECIMEN Ordering Facility: [facility] Address: [address] [place] [id number] Result Comment: Surg ica Pathology Report Case: [id number] Authorizing Provider: Emil Mike MD, Collected: 04/14/2023 12:12 PM Ordering Location: [facility] Received: 04/14/2023 12:22 PM INTERVENTIONAL RADIOLOGY Pathologist: Tania Santos MD Intraop: Adolfo Bush MD Specimen: KIDNEY BIOPSY LEFT Performed By: #### S #### [facility] CLIA [id number] [facility] CLINICAL HISTORY 72-year-old man undergoing evaluation for 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 Serum creatinine is 2.54, serum albumin is 3.1, kappa to lambda ratio is 14.57 and SPEP shows an IgM kappa monoclonal spike. Urinalysis shows 2+ protein. 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 Normal [facility] Comment on above: Order Comment: Speci men Type: TISSUE SPECIMEN Ordering Facility: [facility] Address: [address] [place] [address] Performed By: #### S #### [facility] CLIA [id number] [address] [place] [address] DIAGNOSIS COMMENT Normal [facility] Comment on above: Order Comment: Jasmina allen Type: TISSUE SPECIMEN Ordering Facility: [facility] Address: [address] [place] [address] Result Comment: Lig t microscopy shows prominent amyloid accumulation within glomeruli, vessel cooper and in a patchy distribution in the tubulointerstitium. Immunofluorescence shows strong staining for kappa and essentially negative staining for the remaining tested reactants. Electron microscopy confirms the presence of 8 to 10 nm fibrosis characteristic of amyloidosis. 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 Results discussed with Dr. Tucker at 1:40 PM on 04/17/2023. Laboratory Developed Test (LDT) Disclaimer: Performance characteristics of immunohistochemical, immunofluorescent and chromogenic in-situ hybridization tests have been determined by the performing laboratory within [facility]???s [facility] Pathology and Laboratory Medicine [place] ([facility], [facility], [facility], [facility], [facility], or [facility]) in a manner consistent with CLIA requirements. One or more of these tests have not been cleared or approved by the FDA. [facility] is regulated under CLIA as qualified to perform high-complexity testing. These tests are used for clinical purposes. They should not be regarded as investigational or for research. Positive and negative controls stain appropriately. Performed By: #### S #### [facility] CLIA [id number] [facility] [address] FINAL DIAGNOSIS Normal [facility] Comment on above: Order Comment: Speci men Type: TISSUE SPECIMEN Ordering Facility: [facility] Address: [address] [place] [address] Result Comment: Dinorah. Tania ative left kidney biopsy: - [place] light chain amyloidosis extensively involving glomeruli, the tubulointerstitium and vessel cooper. - Tubular atrophy and interstitial fibrosis, moderate to severe. Performed By: #### S #### [facility] CLIA [id number] [address] [place] [address] FINAL PERFORMING LAB Normal [facility] Comment on above: Order Comment: Speci men Type: TISSUE SPECIMEN Ordering Facility: [facility] Address: [address] [place] [address] Result Comment: Diag nostic interpretation performed at [facility], [address] [place] [address] CLIA# [id number] Advanced Practice Rn: Surinder Lehman M.D. Performed By: #### S #### [facility] CLIA [id number] [address] [place] [address] OF EMILY GROSS DESCRIPTION Normal [facility] Comment on above: Order Comment: Speci men Type: TISSUE SPECIMEN Ordering Facility: [facility] Address: [address] [place] [address] Result Comment: A. K JJNEY BIOPSY LEFT Received for medical kidney biopsy triage evaluation are 5 tissue cores ranging in length from 0.5 to 1.5 cm. Wet preparation is examined for triage purposes. Three tissue cores are placed in formalin, 1 in Mikey's fixative and 1 in glutaraldehyde. Specimens are sent to [facility] for further evaluation. Gross examination performed at [facility], [address] [place] [address] CLIA# [id number] JLL Received in formalin are multiple segments of cylindrical freeman soft tissue aggregating to 3.1 x 0.1 x 0.1 cm. The specimen is totally submitted for light microscopy in cassette A2. Also received in Mikey???s is one segment of cylindrical freeman soft tissue measuring 0.7 x 0.1 x 0.1 cm. The specimen is washed in Maleimide solution, frozen, and kept frozen for direct immunofluorescence. In addition, one segment of freeman soft tissue measuring 0.9 x 0.1 x 0.1 cm is received in glutaraldehyde and totally submitted for EM. April 14, 2023 5:23 PM Gross examination performed at [facility], [address] [place] [address] Performed By: #### S #### [facility] CLIA [id number] [address] [place] [address] [id number] [place] [address] STATES OF [facility] MICROSCOPIC DESCRIPTION Normal [facility] Comment on above: Order Comment: Speci men Type: TISSUE SPECIMEN Ordering Facility: [facility] Address: [address] [place], [place] [id number] Result Comment: Sect ions are stained with H&E, PAS, trichrome, Ford and Congo red. Sections reveal 3 cores of renal cortex. Up to 65 glomeruli are sampled, 8 of which are globally sclerotic. The remaining glomeruli display prominent infiltration by amorphous material that is PAS pale. Ford staining highlights spicule formation and areas of glomerular basement membrane infiltration. Congo red staining shows orangophilia and apple green birefringence upon polarization, consistent with amyloid. Trichrome staining highlights moderate to severe fibrosis involving approximately 60% of the cortex sampled. There is patchy moderate interstitial accumulation of amyloid as well. Multiple arteries and arterioles show prominent infiltration by amyloid. Immunofluorescence staining is performed for IgG, IgA, IgM, C3, C1q, albumin, kappa and lambda. Up to 10 additional glomeruli are sampled, 2 of which are globally sclerotic. There is 3+ smudgy staining for kappa light chains within glomeruli, vessel cooper and in a patchy distribution in the tubulointerstitium. The remaining tested reactants show either trace or negative staining consistent with mild nonspecific trapping. Albumin highlights background tissue architecture. Tissue for electron microscopy samples 9 glomeruli, 2 of which are approaching global sclerosis. Ultrastructurally, there is prominent mesangial and segmental glomerular basement membrane infiltration by fibrils measuring 8 to 10 nm in diameter, consistent with amyloid. Podocyte foot process effacement is pronounced in areas of capillary wall infiltration. Patchy interstitial aggregates of amyloid are also identified. Performed By: #### S #### [facility] CLIA [id number] [address] [place] [address] [place] [address] CHEST WO IVCONon 04-06-20 Radiology Result ACTIONABLE Abnormal [facility] XR BONE SURVEY ROUTINEon [facility] Throat specimen bacteria karen ntification by cultureOrdered By: Kit Crisostomo on 04-05-2023 Bacteria identified Cx Nom (Throat) streptococcus isolated. [facility] SPIROMETRY - BASELINE AND PO ST DILATORon 04-03-2023 QTC98-17% POST (L/S) 2.45 L/S [facility] RVG51-70% PRE (L/S) 3.05 L/S [facility] FEV1 PRE (L) 3.33 L [facility] FEV1/FVC POST (%) 82 % [facility] nd [facility] FEV1/FVC PRE (%) 77 % [facility] FEV1_POST (L) 3.21 L [facility] FVC POST (L) 3.91 L [facility] FVC PRE (L) 4.30 L [facility] PEF POST (L/S) 7.23 L/S [facility] PEF PRE (L/S) 7.53 L/S [facility] US ABDOMEN COMPLETEon 2022 [facility] Basophil percentageOrdered B y: Jonathan Fernando on 03-18-2023 Chloride [Moles/Vol] 110 mmol/L 98-107 [facility] Glucose [Mass/Vol] 100 mg/dL 74-106 [facility] Comment on above: Fasting Glucose resu lt from 100 to 125 mg/dL suggests IMPAIRED HOMEOSTASIS per A.D.A. criteria. Potassium [Moles/Vol] 4.2 mmol/L 3.5-5.1 [facility] Sodium [Moles/Vol] 141 mmol/L 136-145 [facility] Laboratory - Chemistry and C hemistry - challengeOrdered By: Jonathan Fernando on 03-18-2023 CO2 [Moles/Vol] 26.0 mmol/L 21.0-32.0 [facility] Urea nitrogen/Creatinine [Mass ratio] 19.5 mg/mg 10-20 [facility] No Panel InformationOrdered By: Jonathan Fernando on 03-18-2023 Estimated Creatinine Clearance Calc 23.05 ml/min [facility] Estimated GFR (MDRD) Amer 38 mL/min >60 [facility] Comment on above: GFR Calc Estimated GFR (MDRD) Non-Af Amer 31 mL/min >60 [facility] Comment on above: Non- GFR Calc Serum or plasma calcium marce urement (mass/volume)Ordered By: Jonathan Fernando on 03-18-2023 Calcium [Mass/Vol] 8.1 mg/dL 8.5-10.1 [facility] Serum or plasma creatinine m easurement (mass/volume)Ordered By: Jonathan Fernando on 03-18-2023 Creatinine [Mass/Vol] 2.21 mg/dL 0.70-1.30 [facility] Comment on above: The validity of the calculated GFR & GFRAA in patients over 70 years has not been determined. Clinical correlation is essential. Serum or plasma urea nitroge n measurement (mass/volume)Ordered By: Jonathan Fernando on 03-18-2023 Urea nitrogen [Mass/Vol] 43 mg/dL 7-18 [facility] Thin prep Papanicolaou smear with manual screeningOrdered By: Jonathan Fernando on 03-18-2023 Thin prep Papanicolaou smear with manual screening 5 5-15 [facility] Urine creatinine measurement (mass/volume)Ordered By: Jonathan Fernando on 03-18-2023 Creatinine (U) [Mass/Vol] 32.50 mg/dL NO RANGE EST. [facility] Urine protein measurement (m ass/volume)Ordered By: Jonathan Fernando on 03-18-2023 Protein (U) [Mass/Vol] 109.3 mg/dL 0.0-11.8 [facility] Urine protein/creatinine mas s ratioOrdered By: Jonathan Fernando on 03-18-2023 Protein/Creatinine (U) [Mass ratio] 3363 mg/g CRE 0-200 [facility] Absolute lymphocyte countOrd ered By: Jose Elizabeth on 03-17-2023 Lymphocytes Auto (Unsp spec) [#/Vol] 2.13 10*3/uL 0.83-4.51 [facility] Basophil percentageOrdered B y: Jose Elizabeth on 03-17-2023 Basophil percentage 0 SEEN /hpf 0-5 [facility] Basophils/100 WBC (Bld) 0.9 % 0-1 [facility] Bilirubin [Mass/Vol] 0.40 mg/dL 0.20-1.00 [facility] Comment on above: For patients on eltr ombopag therapy, use of Dimension [place] TBIL is not recommended. Chloride [Moles/Vol] 106 mmol/L 98-107 [facility] Eosinophils/100 WBC (Bld) 1.3 % 0-5 [facility] Glucose [Mass/Vol] 129 mg/dL 74-106 [facility] Comment on above: Fasting Glucose resu lt greater than or equal to 126 mg/dL suggests DIABETES MELLITUS per A.D.A. criteria. Neutrophils (Bld) [#/Vol] 3.8 10*3/uL 2.0-7.7 [facility] Neutrophils/100 WBC (Bld) 56.1 % 47-70 [facility] Potassium [Moles/Vol] 4.2 mmol/L 3.5-5.1 [facility] Protein [Mass/Vol] 6.4 g/dL 6.4-8.2 [facility] Sodium [Moles/Vol] 139 mmol/L 136-145 [facility] WBC (Bld) [#/Vol] 6.8 10*3/uL 4.4-11.0 [facility] Bilirubin Test strip Ql (U)O rdered By: Jose Elizabeth on 03-17-2023 Bilirubin Ql (U) Negative Negative [facility] Blood erythrocytes count (nu mber/volume)Ordered By: Jose Elizabeth on 03-17-2023 RBC (Bld) [#/Vol] 3.82 10*6/uL 4.6-6.2 [facility] Blood hemoglobin measurement (mass/volume)Ordered By: Jose Elizabeth on 03-17-2023 Hemoglobin (Bld) [Mass/Vol] 12.5 g/dL 13.0-16.5 [facility] Blood lymphocytes/100 leukoc ytesOrdered By: Jose Elizabeth on 03-17-2023 Lymphocytes/100 WBC (Bld) 31.5 % 19-41 [facility] Blood monocytes/100 leukocyt esOrdered By: Jose Elizabeth on 03-17-2023 Monocytes/100 WBC (Bld) 9.9 % 0-10 [facility] Blood platelet mean volumeOr dered By: Jose Elizabeth on 03-17-2023 Platelet mean volume (Bld) [Entitic vol] 9.7 fL 6.2-12.0 [facility] Determination of erythrocyte mean corpuscular volume (MCV)Ordered By: Jose Elizabeth on 03-17-2023 MCV (RBC) [Entitic vol] 98.7 fL 80-94 [facility] Hematocrit Auto (Bld) [Volum e fraction]Ordered By: Jose Elizabeth on 03-17-2023 Hematocrit (Bld) [Volume fraction] 37.7 % 40-54 [facility] Ketones Test strip Ql (U)Ord ered By: Jose Elizabeth on 03-17-2023 Ketones Ql (U) Negative Negative [facility] Laboratory - Chemistry and C hemistry - challengeOrdered By: Jose Elizabeth on 03-17-2023 ALP [Catalytic activity/Vol] 93 U/L 45-117 [facility] ALT [Catalytic activity/Vol] 28 U/L 16-61 [facility] CO2 [Moles/Vol] 27.0 mmol/L 21.0-32.0 [facility] Globulin (S) [Mass/Vol] 3.7 g/dL 2.2-4.2 [facility] Urea nitrogen/Creatinine [Mass ratio] 18.0 mg/mg 10-20 [facility] Laboratory - Hematology and Cell countsOrdered By: Jose Elizabeth on 03-17-2023 Erythrocyte distribution width (RBC) [Entitic vol] 50.1 fL 35.1-43.9 [facility] Erythrocyte distribution width (RBC) [Ratio] 13.8 % 11.6-14.6 [facility] Immature granulocytes/100 WBC (Bld) 0.300 % 0.0-0.9 [facility] Comment on above: IG% - Immature Granu locytes (promyelocytes, myelocytes and metamyelocytes) > 1% indicates that a LEFT SHIFT is Present. MCH (RBC) [Entitic mass] 32.7 pg 27.0-32.0 [facility] Nucleated RBC/100 WBC (Bld) [Ratio] 0 % 0-5 [facility] MCHC Auto (RBC) [Mass/Vol]Or dered By: Jose Elizabeth on 03-17-2023 MCHC (RBC) [Mass/Vol] 33.2 g/dL 32-36 [facility] Mucus LM Ql (Urine sed)Order ed By: Jose Elizabeth on 03-17-2023 Mucus Ql (Urine sed) 0 SEEN /hpf [facility] Nitrite Test strip Ql (U)Ord ered By: Jose Elizabeth on 03-17-2023 Nitrite Ql (U) Negative Negative [facility] No Panel InformationOrdered By: Jonathan Fernando on 03-17-2023 Troponin I High Sensitivity 153 pg/mL 3.0-78.0 [facility] Comment on above: Critical Result(s) C alled at: 18:38:45 03/17/2023 by: Gale HERNANDEZ. Results read back by same. Please Note: New Test Units and Gender Specific Reference Ranges. For more information see Policy Stat Procedure Nunica High Sensitivity Troponin (TNIH) and attachments. No Panel InformationOrdered By: Jose Elizabeth on 03-17-2023 Estimated Creatinine Clearance Calc 20.80 ml/min [facility] Estimated GFR (MDRD) Amer 34 mL/min >60 [facility] Comment on above: GFR Calc Estimated GFR (MDRD) Non-Af Amer 28 mL/min >60 [facility] Comment on above: Non- GFR Calc Thyroid Stimulating Hormone (TSH) 3.58 uIU/mL 0.358-3.74 [facility] Troponin I High Sensitivity 153 pg/mL 3.0-78.0 [facility] Comment on above: Critical Result(s) C alled at: 12:14:56 03/17/2023 by: Ric Garcia RN (ER). Results read back by same. Please Note: New Test Units and Gender Specific Reference Ranges. For more information see Policy Stat Procedure Nunica High Sensitivity Troponin (TNIH) and attachments. Platelets bldOrdered By: Shelbi Elizabeth on 03-17-2023 Platelets (Bld) [#/Vol] 271 10*3/uL 150-450 [facility] Protein Test strip Ql (U)Ord ered By: Jose Elizabeth on 03-17-2023 Protein Ql (U) 100 mg/dl Negative [facility] Serum or plasma albumin marce urement (mass/volume)Ordered By: Jose Elizabeth on 03-17-2023 Albumin [Mass/Vol] 2.7 g/dL 3.2-5.0 [facility] Serum or plasma albumin/glob ulin mass ratioOrdered By: Jose Elizabeth on 03-17-2023 Albumin/Globulin [Mass ratio] 0.7 {ratio} 0.9-2.4 [facility] Serum or plasma calcium marce urement (mass/volume)Ordered By: Jose Elizabeth on 03-17-2023 Calcium [Mass/Vol] 8.9 mg/dL 8.5-10.1 [facility] Serum or plasma creatinine m easurement (mass/volume)Ordered By: Jose Elizabeth on 03-17-2023 Creatinine [Mass/Vol] 2.44 mg/dL 0.70-1.30 [facility] Comment on above: The validity of the calculated GFR & GFRAA in patients over 70 years has not been determined. Clinical correlation is essential. Serum or plasma urea nitroge n measurement (mass/volume)Ordered By: Jose Elizabeth on 03-17-2023 Urea nitrogen [Mass/Vol] 44 mg/dL 7-18 [facility] Squamous epithelial cells de tection in urine sediment by light microscopyOrdered By: Jose Elizabeth on 03-17-2023 Epithelial cells.squamous LM Ql (Urine sed) 0 SEEN /hpf 0-5 [facility] Thin prep Papanicolaou smear with manual screeningOrdered By: Jose Elizabeth on 03-17-2023 Thin prep Papanicolaou smear with manual screening 33 U/L 15-37 [facility] Thin prep Papanicolaou smear with manual screening 6 5-15 [facility] Urine blood detectionOrdered By: Jose Elizabeth on 03-17-2023 RBC Ql (U) 25 /ul Negative [facility] RBC Ql (U) 0 SEEN /hpf 0-5 [facility] Urine clarityOrdered By: Shelbi Elizabeth on 03-17-2023 Clarity (U) Clear Clear [facility] Urine color determinationOrd ered By: Jose Elizabeth on 03-17-2023 Color (U) Yellow Yellow [facility] Urine glucose detectionOrder ed By: Jose Elizabeth on 03-17-2023 Glucose Ql (U) Normal mg/dl Normal [facility] Urine leukocyte esterase det ection by dipstickOrdered By: Jose Elizabeth on 03-17-2023 Leukocyte esterase Test strip Ql (U) Negative Negative [facility] Urine pHOrdered By: Jose guthrie on 03-17-2023 pH (U) 6.5 [pH] 5.0 - 8.0 [facility] Urine sediment bacteria coun t by microscopy (number/high power field)Ordered By: Jose Elizabeth on 03-17-2023 Bacteria LM.HPF (Urine sed) [#/Area] 0 /[HPF] None Seen [facility] Urine specific gravity measu rementOrdered By: Jose Elizabeth on 03-17-2023 Specific gravity (U) [Rel density] 1.010 1.002-1.030 [facility] Urobilinogen Auto test strip Ql (U)Ordered By: Jose Elizabeth on 03-17-2023 Urobilinogen Ql (U) Normal mg/dl Normal [facility] Vital Signs Date Time Vital Sign Value Performing Clinician Facility 02-25-2025 09:54-0400 Body mass index (BMI) [Ratio] 18.44 kg/m2 Jose Hugo DO Work Phone: [facility] 02-25-2025 09:54-0400 Body temperature 97.3 [degF] Jose Hugo DO Work Phone: [facility] 02-25-2025 09:54-0400 Body weight 54.2 kg Jose Hugo DO Work Phone: [facility] 02-25-2025 09:54-0400 Diastolic blood pressure 58 mm[Hg] Jose Hugo DO Work Phone: [facility] 02-25-2025 09:54-0400 Heart rate 71 /min Jose Juliai DO Work Phone: [facility] 02-25-2025 09:54-0400 Respiratory rate 14 /min Jose Juliai DO Work Phone: [facility] 02-25-2025 09:54-0400 SaO2% (BldA) [Mass fraction] 100 % Jose Juliai DO Work Phone: [facility] 02-25-2025 09:54-0400 Systolic blood pressure 116 mm[Hg] Jose Dumonti DO Work Phone: [facility] 02-13-2025 10:18-0400 Body temperature 97.8 [degF] Dr. Jose Miguel Herbert MD Work Phone: 3(115)521-572871 [place] [address] 02-13-2025 10:18-0400 Body weight 54.[address] Jose Miguel Herbert MD Work Phone: 0(686)812-727971 [place] [address] 02-13-2025 10:18-0400 Diastolic blood pressure 66 mm[Hg] Dr. Jose Miguel Herbert MD Work Phone: 6(776)337-175771 [place] [address] 02-13-2025 10:18-0400 Heart rate 70 /min Dr. Jose Miguel Herbert MD Work Phone: 7(951)126-387271 [place] [address] 02-13-2025 10:18-0400 Respiratory rate 14 /min Dr. Jose Miguel Herbert MD Work Phone: 1(022)495-471471 [place] [address] 02-13-2025 10:18-0400 SaO2% (BldA) [Mass fraction] 97 % Dr. Jose Miguel Herbert MD Work Phone: 8(293)790-296171 [place] [address] 02-13-2025 10:18-0400 Systolic blood pressure 114 mm[Hg] Dr. Jose Miguel Herbert MD Work Phone: 0(025)725-408571 [place] [address] 01-28-2025 09:49-0400 Body temperature 97.7 [degF] Dr. Jose Miguel Herbert MD Work Phone: 4(703)497-729271 [place] [address] 01-28-2025 09:49-0400 Body weight 54.[address] Jose Miguel Herbert MD Work Phone: [facility] 01-28-2025 09:49-0400 Diastolic blood pressure 58 mm[Hg] Dr. Jose Miguel Herbert MD Work Phone: [facility] 01-28-2025 09:49-0400 Heart rate 72 /min Dr. Jose Miguel Herbert MD Work Phone: [facility] 01-28-2025 09:49-0400 Respiratory rate 14 /min Dr. Jose Miguel Herbert MD Work Phone: [facility] 01-28-2025 09:49-0400 SaO2% (BldA) [Mass fraction] 100 % Dr. Jose Miguel Herbert MD Work Phone: [facility] 01-28-2025 09:49-0400 Systolic blood pressure 97 mm[Hg] Dr. Jose Miguel Herbert MD Work Phone: [facility] 01-21-2025 15:33-0400 Body height 171.5 cm Chester Kwan MD Work Phone: [facility] 01-21-2025 15:33-0400 Body mass index (BMI) [Ratio] 18.83 kg/m2 Chester Kwan MD Work Phone: [facility] 01-21-2025 15:33-0400 Body weight 55.34 kg Chester Kwan MD Work Phone: [facility] 01-21-2025 15:33-0400 Diastolic blood pressure 63 mm[Hg] Chester Kwan MD Work Phone: [facility] 01-21-2025 15:33-0400 Heart rate 70 /min Chester Kwan MD Work Phone: [facility] 01-21-2025 15:33-0400 SaO2% (BldA) [Mass fraction] 100 % Chester Kwan MD Work Phone: [facility] 01-21-2025 15:33-0400 Systolic blood pressure 118 mm[Hg] Chester Kwan MD Work Phone: [facility] 01-14-2025 17:30-0400 Body temperature 97 [degF] Dr. Jose Miguel Herbert MD Work Phone: [facility] 01-14-2025 17:30-0400 Diastolic blood pressure 53 mm[Hg] Dr. Jose Miguel Herbert MD Work Phone: 0(265)045-014271 [place] [address] 01-14-2025 17:30-0400 Heart rate 80 /min Dr. Jose Miguel Herbert MD Work Phone: 3(832)[phone] [place] [address] 01-14-2025 17:30-0400 Respiratory rate 16 /min Dr. Jose Miguel Herbert MD Work Phone: 4(751)640-422271 [place] [address] 01-14-2025 17:30-0400 SaO2% (BldA) [Mass fraction] 94 % Dr. Jose Miguel Herbert MD Work Phone: 4(693)855-620171 [place] [address] 01-14-2025 17:30-0400 Systolic blood pressure 97 mm[Hg] Dr. Jose Miguel Herbert MD Work Phone: 9(427)799-697671 [place] [address] 01-14-2025 16:38-0400 Inhaled oxygen flow rate 6 L/min Dr. Jose Miguel Herbert MD Work Phone: [facility] 01-14-2025 09:55-0400 Body height 172.[address] Jose Miguel Herbert MD Work Phone: 7(522)514-750786 [place] [address] 01-14-2025 09:55-0400 Body mass index (BMI) [Ratio] 18.4 kg/m2 Dr. Jose Miguel Herbert MD Work Phone: 8(043)039-132771 [place] [address] 01-14-2025 09:55-0400 Body weight 55.[address] Jose Miguel Herbert MD Work Phone: 4(889)410-084271 [place] [address] 12-03-2024 10:36-0400 Body mass index (BMI) [Ratio] 19.13 kg/m2 Jose Hugo DO Work Phone: [facility] 12-03-2024 10:36-0400 Body temperature 97.2 [degF] Jose Dumonti DO Work Phone: [facility] 12-03-2024 10:36-0400 Body weight 56.25 kg Jose Dumonti DO Work Phone: [facility] 12-03-2024 10:36-0400 Diastolic blood pressure 56 mm[Hg] Jose Dumonti DO Work Phone: [facility] 12-03-2024 10:36-0400 Heart rate 81 /min Jose Dumonti DO Work Phone: [facility] 12-03-2024 10:36-0400 SaO2% (BldA) [Mass fraction] 98 % Jose Dumonti DO Work Phone: [facility] [facility] 12-03-2024 10:36-0400 Systolic blood pressure 92 mm[Hg] Jose Dumonti DO Work Phone: [facility] 11-07-2024 14:28-0500 Body temperature 97.8 [degF] Dr. Jose Miguel Herbert MD Work Phone: [facility] 11-07-2024 14:28-0500 Body weight 54.[address] Jose Miguel Herbert MD Work Phone: [facility] 11-07-2024 14:28-0500 Diastolic blood pressure 68 mm[Hg] Dr. Jose Miguel Herbert MD Work Phone: [facility] 11-07-2024 14:28-0500 Heart rate 79 /min Dr. Jose Miguel Herbert MD Work Phone: [facility] 11-07-2024 14:28-0500 Respiratory rate 16 /min Dr. Jose Miguel Herbert MD Work Phone: [facility] 11-07-2024 14:28-0500 SaO2% (BldA) [Mass fraction] 98 % Dr. Jose Miguel Herbert MD Work Phone: [facility] 11-07-2024 14:28-0500 Systolic blood pressure 121 mm[Hg] Dr. Jose Miguel Herbert MD Work Phone: [facility] 10-10-2024 13:42-0500 Body height 171.5 cm Yessica Hansen MD Work Phone: [facility] 10-10-2024 13:42-0500 Body mass index (BMI) [Ratio] 18.71 kg/m2 Yessica Hansen MD Work Phone: [facility] 10-10-2024 13:42-0500 Body weight 55 kg Yessica Hansen MD Work Phone: [facility] 10-10-2024 13:42-0500 Diastolic blood pressure 74 mm[Hg] Yessica Hansen MD Work Phone: [facility] 10-10-2024 13:42-0500 Heart rate 69 /min Yessica Hansen MD Work Phone: [facility] 10-10-2024 13:42-0500 SaO2% (BldA) [Mass fraction] 99 % Yessica Hansen MD Work Phone: [facility] 10-10-2024 13:42-0500 Systolic blood pressure 122 mm[Hg] Yessica Hansen MD Work Phone: [facility] 09-03-2024 10:25-0500 Body height 170.2 cm Jose Hugo DO Work Phone: [facility] 09-03-2024 10:25-0500 Body mass index (BMI) [Ratio] 18.17 kg/m2 Jose Hugo DO Work Phone: [facility] 09-03-2024 10:25-0500 Body temperature 98.71 [degF] Jose Hugo DO Work Phone: [facility] 09-03-2024 10:25-0500 Body weight 52.62 kg Jose Hugo DO Work Phone: [facility] 09-03-2024 10:25-0500 Diastolic blood pressure 66 mm[Hg] Jose Masci DO Work Phone: [facility] 09-03-2024 10:25-0500 Heart rate 75 /min Jose Juliai DO Work Phone: [facility] 09-03-2024 10:25-0500 SaO2% (BldA) [Mass fraction] 100 % Jose Juilai DO Work Phone: [facility] 09-03-2024 10:25-0500 Systolic blood pressure 99 mm[Hg] Jose Juliai DO Work Phone: [facility] 08-06-2024 09:23-0500 Body height 171.5 cm Jose Miguel Herbert MD Work Phone: [facility] 08-06-2024 09:23-0500 Body mass index (BMI) [Ratio] 17.13 kg/m2 Jose Miguel Herbert MD Work Phone: [facility] 08-06-2024 09:23-0500 Body weight 50.35 kg Jose Miguel Herbert MD Work Phone: [facility] 08-06-2024 09:23-0500 Diastolic blood pressure 82 mm[Hg] Jose Miguel Herbert MD Work Phone: [facility] 08-06-2024 09:23-0500 Heart rate 72 /min Jose Miguel Herbert MD Work Phone: [facility] 08-06-2024 09:23-0500 Respiratory rate 16 /min Jose Miguel Herbert MD Work Phone: [facility] 08-06-2024 09:23-0500 Systolic blood pressure 120 mm[Hg] Jose Miguel Herbert MD Work Phone: [facility] 06-13-2024 11:32-0400 Body mass index (BMI) [Ratio] 16.21 kg/m2 Jose Dumonti DO Work Phone: [facility] 06-13-2024 11:32-0400 Body temperature 98.1 [degF] Jose Dumonti DO Work Phone: [facility] 06-13-2024 11:32-0400 Body weight 46.95 kg Jose Masci DO Work Phone: [facility] 06-13-2024 11:32-0400 Diastolic blood pressure 64 mm[Hg] Jose Masci DO Work Phone: [facility] 06-13-2024 11:32-0400 Heart rate 71 /min Jose Masci DO Work Phone: [facility] 06-13-2024 11:32-0400 SaO2% (BldA) [Mass fraction] 100 % Jose Masci DO Work Phone: [facility] 06-13-2024 11:32-0400 Systolic blood pressure 88 mm[Hg] Jose Masci DO Work Phone: [facility] 05-16-2024 11:01-0400 Body mass index (BMI) [Ratio] 15.82 kg/m2 Jose Masci DO Work Phone: [facility] 05-16-2024 11:01-0400 Body temperature 98.71 [degF] Jose Masci DO Work Phone: [facility] 05-16-2024 11:01-0400 Body weight 45.81 kg Jose Masci DO Work Phone: [facility] 05-16-2024 11:01-0400 Diastolic blood pressure 60 mm[Hg] Jose Masci DO Work Phone: [facility] 05-16-2024 11:01-0400 Heart rate 74 /min Jose Masci DO Work Phone: [facility] 05-16-2024 11:01-0400 SaO2% (BldA) [Mass fraction] 98 % Jose Masci DO Work Phone: [facility] 05-16-2024 11:01-0400 Systolic blood pressure 88 mm[Hg] Jose Masci DO Work Phone: [facility] 04-25-2024 12:02-0400 Diastolic blood pressure 55 mm[Hg] Treatment Wstr Work Phone: [facility] 04-25-2024 12:02-0400 Heart rate 75 /min Treatment Wstr Work Phone: [facility] 04-25-2024 12:02-0400 Systolic blood pressure 91 mm[Hg] Treatment Wstr Work Phone: [facility] 04-25-2024 10:40-0400 Body mass index (BMI) [Ratio] 15.98 kg/m2 Treatment Wstr Work Phone: [facility] 04-25-2024 10:40-0400 Body temperature 98.71 [degF] Treatment Wstr Work Phone: [facility] 04-25-2024 10:40-0400 Body weight 46.27 kg Treatment Wstr Work Phone: [facility] 04-25-2024 10:40-0400 SaO2% (BldA) [Mass fraction] 99 % Treatment Wstr Work Phone: [facility] 04-23-2024 13:25-0400 Body temperature 97.81 [degF] Treatment Wstr Work Phone: [facility] 04-23-2024 13:25-0400 Diastolic blood pressure 57 mm[Hg] Treatment Wstr Work Phone: [facility] 04-23-2024 13:25-0400 Heart rate 74 /min Treatment Wstr Work Phone: [facility] 04-23-2024 13:25-0400 Respiratory rate 16 /min Treatment Wstr Work Phone: [facility] 04-23-2024 13:25-0400 Systolic blood pressure 85 mm[Hg] Treatment Wstr Work Phone: [facility] 04-18-2024 09:14-0400 Body mass index (BMI) [Ratio] 15.9 kg/m2 Jose Dumonti DO Work Phone: [facility] 04-18-2024 09:14-0400 Body temperature 98.49 [degF] Jose Dumonti DO Work Phone: [facility] 04-18-2024 09:14-0400 Body weight 46.04 kg Jose Masci DO Work Phone: [facility] 04-18-2024 09:14-0400 Diastolic blood pressure 70 mm[Hg] Jose Dumonti DO Work Phone: [facility] 04-18-2024 09:14-0400 Heart rate 75 /min Jose Hugo DO Work Phone: [facility] 04-18-2024 09:14-0400 SaO2% (BldA) [Mass fraction] 99 % Jose Hugo DO Work Phone: [facility] 04-18-2024 09:14-0400 Systolic blood pressure 100 mm[Hg] Jose Dumonti DO Work Phone: [facility] 04-09-2024 16:12-0400 Body height 170.2 cm Chester Kwan MD Work Phone: [facility] 04-09-2024 16:12-0400 Body mass index (BMI) [Ratio] 15.74 kg/m2 Chester Kwan MD Work Phone: [facility] 04-09-2024 16:12-0400 Body weight 45.59 kg Chester Kwan MD Work Phone: [facility] 04-09-2024 16:12-0400 Diastolic blood pressure 60 mm[Hg] Chester Kwan MD Work Phone: [facility] 04-09-2024 16:12-0400 Heart rate 73 /min Chester Kwan MD Work Phone: [facility] 04-09-2024 16:12-0400 SaO2% (BldA) [Mass fraction] 99 % Chester Kwan MD Work Phone: [facility] Comment on above: 04-09-2024 16:12-0400 Systolic blood pressure 96 mm[Hg] Chester Kwan MD Work Phone: [facility] 03-28-2024 10:00-0400 Body mass index (BMI) [Ratio] 16.6 kg/m2 Treatment Wstr Work Phone: [facility] 03-28-2024 10:00-0400 Body temperature 98.01 [degF] Treatment Wstr Work Phone: [facility] 03-28-2024 10:00-0400 Body weight 48.08 kg Treatment Wstr Work Phone: [facility] 03-28-2024 10:00-0400 Diastolic blood pressure 54 mm[Hg] Treatment Wstr Work Phone: [facility] 03-28-2024 10:00-0400 Heart rate 54 /min Treatment Wstr Work Phone: [facility] 03-28-2024 10:00-0400 Systolic blood pressure 87 mm[Hg] Treatment Wstr Work Phone: [facility] 03-26-2024 13:09-0400 Body mass index (BMI) [Ratio] 16.37 kg/m2 Treatment Wstr Work Phone: [facility] 03-26-2024 13:09-0400 Body temperature 97.9 [degF] Treatment Wstr Work Phone: [facility] 03-26-2024 13:09-0400 Body weight 47.4 kg Treatment Wstr Work Phone: [facility] 03-26-2024 13:09-0400 Diastolic blood pressure 82 mm[Hg] Treatment Wstr Work Phone: [facility] 03-26-2024 13:09-0400 Heart rate 78 /min Treatment Wstr Work Phone: [facility] 03-26-2024 13:09-0400 Respiratory rate 16 /min Treatment Wstr Work Phone: [facility] 03-26-2024 13:09-0400 Systolic blood pressure 102 mm[Hg] Treatment Wstr Work Phone: [facility] 03-19-2024 09:47-0400 Body mass index (BMI) [Ratio] 16.29 kg/m2 Oanh Jim APRN.CNP Work Phone: [facility] 03-19-2024 09:47-0400 Body temperature 97.2 [degF] Oanh Jim IT PROJECT LEAD.PRODUCT INTRODUCTION MANAGER Work Phone: [facility] 03-19-2024 09:47-0400 Body weight 47.17 kg Oanh Jim IT PROJECT LEAD.PRODUCT INTRODUCTION MANAGER Work Phone: [facility] 03-19-2024 09:47-0400 Diastolic blood pressure 58 mm[Hg] Oanh Jim IT PROJECT LEAD.PRODUCT INTRODUCTION MANAGER Work Phone: [facility] 03-19-2024 09:47-0400 Heart rate 68 /min Oanh Jim IT PROJECT LEAD.PRODUCT INTRODUCTION MANAGER Work Phone: [facility] 03-19-2024 09:47-0400 SaO2% (BldA) [Mass fraction] 98 % Oanh Jim IT PROJECT LEAD.PRODUCT INTRODUCTION MANAGER Work Phone: [facility] 03-19-2024 09:47-0400 Systolic blood pressure 92 mm[Hg] Oanh Jim IT PROJECT LEAD.PRODUCT INTRODUCTION MANAGER Work Phone: [facility] 02-29-2024 10:44-0400 Body temperature 97.9 [degF] Treatment Wstr Work Phone: [facility] 02-29-2024 10:44-0400 Diastolic blood pressure 47 mm[Hg] Treatment Wstr Work Phone: [facility] 02-29-2024 10:44-0400 Heart rate 78 /min Treatment Wstr Work Phone: [facility] 02-29-2024 10:44-0400 SaO2% (BldA) [Mass fraction] 100 % Treatment Wstr Work Phone: [facility] 02-29-2024 10:44-0400 Systolic blood pressure 86 mm[Hg] Treatment Wstr Work Phone: [facility] 02-27-2024 13:19-0400 Body mass index (BMI) [Ratio] 16.05 kg/m2 Treatment Wstr Work Phone: [facility] 02-27-2024 13:19-0400 Body temperature 97.59 [degF] Treatment Wstr Work Phone: [facility] 02-27-2024 13:19-0400 Body weight 46.49 kg Treatment Wstr Work Phone: [facility] 02-27-2024 13:19-0400 Diastolic blood pressure 47 mm[Hg] Treatment Wstr Work Phone: [facility] Comment on above: MD gibson OK to treat per Dr. Hugo 02-27-2024 13:19-0400 Heart rate 78 /min Treatment Wstr Work Phone: [facility] 02-27-2024 13:19-0400 SaO2% (BldA) [Mass fraction] 100 % Treatment Wstr Work Phone: [facility] 02-27-2024 13:19-0400 Systolic blood pressure 75 mm[Hg] Treatment Wstr Work Phone: [facility] Comment on above: MD aware. HERNANDEZ to treat per Dr. Hugo 02-01-2024 13:18-0400 Body temperature 99.1 [degF] Treatment Wstr Work Phone: [facility] 02-01-2024 13:18-0400 Diastolic blood pressure 46 mm[Hg] Treatment Wstr Work Phone: [facility] 02-01-2024 13:18-0400 Heart rate 83 /min Treatment Wstr Work Phone: [facility] 02-01-2024 13:18-0400 Respiratory rate 16 /min Treatment Wstr Work Phone: [facility] 02-01-2024 13:18-0400 SaO2% (BldA) [Mass fraction] 98 % Treatment Wstr Work Phone: [facility] 02-01-2024 13:18-0400 Systolic blood pressure 83 mm[Hg] Treatment Wstr Work Phone: [facility] 01-30-2024 08:45-0400 Body mass index (BMI) [Ratio] 15.98 kg/m2 Treatment Wstr Work Phone: [facility] 01-30-2024 08:45-0400 Body temperature 98.1 [degF] Treatment Wstr Work Phone: [facility] 01-30-2024 08:45-0400 Body weight 46.27 kg Treatment Wstr Work Phone: [facility] 01-30-2024 08:45-0400 Diastolic blood pressure 54 mm[Hg] Treatment Wstr Work Phone: [facility] 01-30-2024 08:45-0400 Heart rate 78 /min Treatment Wstr Work Phone: [facility] 01-30-2024 08:45-0400 Respiratory rate 16 /min Treatment Wstr Work Phone: [facility] 01-30-2024 08:45-0400 Systolic blood pressure 88 mm[Hg] Treatment Wstr Work Phone: [facility] 01-04-2024 10:36-0400 Body mass index (BMI) [Ratio] 15.82 kg/m2 Jose Masci DO Work Phone: [facility] 01-04-2024 10:36-0400 Body temperature 98.71 [degF] Jose Masci DO Work Phone: [facility] 01-04-2024 10:36-0400 Body weight 45.81 kg Jose Masci DO Work Phone: [facility] 01-04-2024 10:36-0400 Diastolic blood pressure 34 mm[Hg] Jose Masci DO Work Phone: [facility] 01-04-2024 10:36-0400 Heart rate 85 /min Jose Masci DO Work Phone: [facility] 01-04-2024 10:36-0400 Respiratory rate 12 /min Jose Masci DO Work Phone: [facility] 01-04-2024 10:36-0400 SaO2% (BldA) [Mass fraction] 97 % Jose Masci DO Work Phone: [facility] 01-04-2024 10:36-0400 Systolic blood pressure 61 mm[Hg] Jose Masci DO Work Phone: [facility] 12-18-2023 10:59-0400 Body temperature 97.8 [degF] [facility] 12-18-2023 10:59-0400 Diastolic blood pressure 83 mm[Hg] [facility] 12-18-2023 10:59-0400 Heart rate 72 /min [facility] 12-18-2023 10:59-0400 Respiratory rate 16 /min [facility] 12-18-2023 10:59-0400 SaO2% (BldA) [Mass fraction] 99 % [facility] 12-18-2023 10:59-0400 Systolic blood pressure 134 mm[Hg] [facility] 12-18-2023 09:54-0400 Body height 172.72 cm [facility] 12-18-2023 09:54-0400 Body mass index (BMI) [Ratio] 15.7 kg/m2 [facility] 12-18-2023 09:54-0400 Body weight 47.1 kg [facility] 12-18-2023 09:04-0400 Body temperature 98.29 [degF] Jose Masci DO Work Phone: [facility] 12-18-2023 09:04-0400 Body weight 46.04 kg Jose Masci DO Work Phone: [facility] 12-18-2023 09:04-0400 Diastolic blood pressure 49 mm[Hg] Jose Masci DO Work Phone: [facility] 12-18-2023 09:04-0400 Heart rate 88 /min Jose Masci DO Work Phone: [facility] 12-18-2023 09:04-0400 SaO2% (BldA) [Mass fraction] 99 % Jose Masci DO Work Phone: [facility] 12-18-2023 09:04-0400 Systolic blood pressure 75 mm[Hg] Jose Masci DO Work Phone: [facility] 12-15-2023 19:01-0400 Body temperature 97.4 [degF] [facility] 12-15-2023 19:01-0400 Diastolic blood pressure 74 mm[Hg] [facility] 12-15-2023 19:01-0400 Heart rate 73 /min [facility] 12-15-2023 19:01-0400 Respiratory rate 16 /min [facility] 12-15-2023 19:01-0400 SaO2% (BldA) [Mass fraction] 97 % [facility] 12-15-2023 19:01-0400 Systolic blood pressure 121 mm[Hg] [facility] 12-15-2023 12:33-0400 Body height 173 cm [facility] 12-15-2023 12:33-0400 Body mass index (BMI) [Ratio] 16.3 kg/m2 [facility] 12-15-2023 12:33-0400 Body weight 48.9 kg [facility] 12-11-2023 13:30-0400 Diastolic blood pressure 60 mm[Hg] Ankur Benavidez PA-C Work Phone: [facility] 12-11-2023 13:30-0400 Heart rate 91 /min Ankur Benavidez PA-C Work Phone: [facility] 12-11-2023 13:30-0400 Respiratory rate 16 /min Ankur Benavidez PA-C Work Phone: [facility] 12-11-2023 13:30-0400 SaO2% (BldA) [Mass fraction] 99 % Ankur Benavidez PA-C Work Phone: [facility] 12-11-2023 13:30-0400 Systolic blood pressure 112 mm[Hg] Ankur Benavidez PA-C Work Phone: [facility] 11-30-2023 14:43-0400 Body temperature 98.2 [degF] Injection Wstr Work Phone: [facility] 11-29-2023 15:44-0400 Body weight 50.8 kg Jose Miguel Herbert MD Work Phone: [facility] 11-29-2023 15:44-0400 Diastolic blood pressure 64 mm[Hg] Jose Miguel Herbert MD Work Phone: [facility] 11-29-2023 15:44-0400 Heart rate 76 /min Jose Miguel Herbert MD Work Phone: [facility] 11-29-2023 15:44-0400 Systolic blood pressure 98 mm[Hg] Jose Miguel Herbert MD Work Phone: [facility] 11-29-2023 13:08-0400 Body temperature 97.81 [degF] Treatment Wstr Work Phone: [facility] 11-29-2023 13:08-0400 Diastolic blood pressure 78 mm[Hg] Treatment Wstr Work Phone: [facility] 11-29-2023 13:08-0400 Heart rate 76 /min Treatment Wstr Work Phone: [facility] 11-29-2023 13:08-0400 Respiratory rate 16 /min Treatment Wstr Work Phone: [facility] 11-29-2023 13:08-0400 Systolic blood pressure 122 mm[Hg] Treatment Wstr Work Phone: [facility] 11-28-2023 13:04-0400 Body temperature 98.6 [degF] Treatment Wstr Work Phone: [facility] 11-28-2023 13:04-0400 Diastolic blood pressure 65 mm[Hg] Treatment Wstr Work Phone: [facility] 11-28-2023 13:04-0400 Heart rate 87 /min Treatment Wstr Work Phone: [facility] 11-28-2023 13:04-0400 SaO2% (BldA) [Mass fraction] 98 % Treatment Wstr Work Phone: [facility] 11-28-2023 13:04-0400 Systolic blood pressure 100 mm[Hg] Treatment Wstr Work Phone: [facility] 11-27-2023 11:33-0400 Body temperature 98.49 [degF] Oanh Jim IT PROJECT LEAD.PRODUCT INTRODUCTION MANAGER Work Phone: [facility] 11-27-2023 11:33-0400 Body weight 48.26 kg Oanh Jim IT PROJECT LEAD.PRODUCT INTRODUCTION MANAGER Work Phone: [facility] 11-27-2023 11:33-0400 Diastolic blood pressure 68 mm[Hg] [place] Jim IT PROJECT LEAD.PRODUCT INTRODUCTION MANAGER Work Phone: [facility] 11-27-2023 11:33-0400 Heart rate 84 /min Oanh Jim IT PROJECT LEAD.PRODUCT INTRODUCTION MANAGER Work Phone: [facility] 11-27-2023 11:33-0400 SaO2% (BldA) [Mass fraction] 99 % [place] Jim IT PROJECT LEAD.PRODUCT INTRODUCTION MANAGER Work Phone: [facility] 11-27-2023 11:33-0400 Systolic blood pressure 97 mm[Hg] [place] Jim IT PROJECT LEAD.PRODUCT INTRODUCTION MANAGER Work Phone: [facility] 11-24-2023 12:45-0500 Body weight 49.9 kg Xena Latasha IT PROJECT LEAD.PRODUCT INTRODUCTION MANAGER Work Phone: [facility] 11-24-2023 12:45-0500 Diastolic blood pressure 64 mm[Hg] Xena Latasha IT PROJECT LEAD.PRODUCT INTRODUCTION MANAGER Work Phone: [facility] 11-24-2023 12:45-0500 Heart rate 93 /min Xena Latasha IT PROJECT LEAD.PRODUCT INTRODUCTION MANAGER Work Phone: [facility] 11-24-2023 12:45-0500 Systolic blood pressure 96 mm[Hg] Xena Latasha IT PROJECT LEAD.PRODUCT INTRODUCTION MANAGER Work Phone: [facility] 11-16-2023 15:11-0500 Body height 170.2 cm Talia Reay IT PROJECT LEAD.PRODUCT INTRODUCTION MANAGER Work Phone: [facility] 11-16-2023 15:11-0500 Body weight 47.31 kg Talia Reay IT PROJECT LEAD.PRODUCT INTRODUCTION MANAGER Work Phone: [facility] 11-16-2023 15:11-0500 Diastolic blood pressure 61 mm[Hg] Talia Reay IT PROJECT LEAD.PRODUCT INTRODUCTION MANAGER Work Phone: [facility] 11-16-2023 15:11-0500 Heart rate 84 /min Talia Reay IT PROJECT LEAD.PRODUCT INTRODUCTION MANAGER Work Phone: [facility] 11-16-2023 15:11-0500 SaO2% (BldA) [Mass fraction] 99 % Talia Reay IT PROJECT LEAD.PRODUCT INTRODUCTION MANAGER Work Phone: [facility] 11-16-2023 15:11-0500 Systolic blood pressure 102 mm[Hg] Talia Reay IT PROJECT LEAD.PRODUCT INTRODUCTION MANAGER Work Phone: [facility] 11-02-2023 15:26-0500 Body temperature 97.39 [degF] Injection Wstr Work Phone: [facility] 11-01-2023 14:10-0500 Body temperature 97.5 [degF] Treatment Wstr Work Phone: [facility] 11-01-2023 14:10-0500 Diastolic blood pressure 68 mm[Hg] Treatment Wstr Work Phone: [facility] 11-01-2023 14:10-0500 Heart rate 80 /min Treatment Wstr Work Phone: [facility] 11-01-2023 14:10-0500 SaO2% (BldA) [Mass fraction] 100 % Treatment Wstr Work Phone: [facility] 11-01-2023 14:10-0500 Systolic blood pressure 127 mm[Hg] Treatment Wstr Work Phone: [facility] 10-31-2023 10:00-0500 Body temperature 97.59 [degF] Treatment Wstr Work Phone: [facility] 10-31-2023 10:00-0500 Diastolic blood pressure 69 mm[Hg] Treatment Wstr Work Phone: [facility] 10-31-2023 10:00-0500 Heart rate 75 /min Treatment Wstr Work Phone: [facility] 10-31-2023 10:00-0500 Respiratory rate 16 /min Treatment Wstr Work Phone: [facility] 10-31-2023 10:00-0500 SaO2% (BldA) [Mass fraction] 100 % Treatment Wstr Work Phone: [facility] 10-31-2023 10:00-0500 Systolic blood pressure 100 mm[Hg] Treatment Wstr Work Phone: [facility] 10-27-2023 11:30-0500 Body temperature 99 [degF] Jose Masci DO Work Phone: [facility] 10-27-2023 11:30-0500 Body weight 51.94 kg Jose Masci DO Work Phone: [facility] 10-27-2023 11:30-0500 Diastolic blood pressure 62 mm[Hg] Jose Masci DO Work Phone: [facility] 10-27-2023 11:30-0500 Heart rate 87 /min Jose Masci DO Work Phone: [facility] 10-27-2023 11:30-0500 SaO2% (BldA) [Mass fraction] 100 % Jose Masci DO Work Phone: [facility] 10-27-2023 11:30-0500 Systolic blood pressure 99 mm[Hg] Jose Masci DO Work Phone: [facility] 10-23-2023 14:16-0500 Body height 170.2 cm Gumaro Elisa DO Work Phone: [facility] 10-23-2023 14:16-0500 Body weight 55.34 kg Gumaro Elisa DO Work Phone: [facility] 08-25-2023 09:14-0500 Body temperature 97.59 [degF] Treatment Wstr Work Phone: [facility] 08-25-2023 09:14-0500 Body weight 60.55 kg Treatment Wstr Work Phone: [facility] 08-25-2023 09:14-0500 Heart rate 101 /min Treatment Wstr Work Phone: [facility] 08-25-2023 09:14-0500 Respiratory rate 16 /min Treatment Wstr Work Phone: [facility] 08-25-2023 09:14-0500 SaO2% (BldA) [Mass fraction] 100 % Treatment Wstr Work Phone: [facility] 08-24-2023 10:01-0500 Body weight 60.78 kg Treatment Wstr Work Phone: [facility] 08-24-2023 08:55-0500 Body temperature 97.39 [degF] Treatment Wstr Work Phone: [facility] 08-24-2023 08:55-0500 Diastolic blood pressure 78 mm[Hg] Treatment Wstr Work Phone: [facility] 08-24-2023 08:55-0500 Heart rate 64 /min Treatment Wstr Work Phone: [facility] 08-24-2023 08:55-0500 Systolic blood pressure 143 mm[Hg] Treatment Wstr Work Phone: [facility] 08-23-2023 12:47-0500 Body temperature 97 [degF] Treatment Wstr Work Phone: [facility] 08-23-2023 12:47-0500 Diastolic blood pressure 57 mm[Hg] Treatment Wstr Work Phone: [facility] 08-23-2023 12:47-0500 Heart rate 79 /min Treatment Wstr Work Phone: [facility] 08-23-2023 12:47-0500 SaO2% (BldA) [Mass fraction] 100 % Treatment Wstr Work Phone: [facility] 08-23-2023 12:47-0500 Systolic blood pressure 103 mm[Hg] Treatment Wstr Work Phone: [facility] 08-22-2023 13:30-0500 Body temperature 97.3 [degF] Treatment Wstr Work Phone: [facility] 08-22-2023 13:30-0500 Body weight 54.43 kg Treatment Wstr Work Phone: [facility] 08-22-2023 13:30-0500 Diastolic blood pressure 79 mm[Hg] Treatment Wstr Work Phone: [facility] 08-22-2023 13:30-0500 Heart rate 74 /min Treatment Wstr Work Phone: [facility] 08-22-2023 13:30-0500 Respiratory rate 16 /min Treatment Wstr Work Phone: [facility] 08-22-2023 13:30-0500 SaO2% (BldA) [Mass fraction] 99 % Treatment Wstr Work Phone: [facility] 08-22-2023 13:30-0500 Systolic blood pressure 134 mm[Hg] Treatment Wstr Work Phone: [facility] 08-17-2023 11:36-0500 Body temperature 97.7 [degF] Jose Masci DO Work Phone: [facility] 08-17-2023 11:36-0500 Body weight 56.25 kg Jose Masci DO Work Phone: [facility] 08-17-2023 11:36-0500 Diastolic blood pressure 76 mm[Hg] Jose Masci DO Work Phone: [facility] 08-17-2023 11:36-0500 Heart rate 87 /min Jose Masci DO Work Phone: [facility] 08-17-2023 11:36-0500 SaO2% (BldA) [Mass fraction] 100 % Jose Masci DO Work Phone: [facility] 08-17-2023 11:36-0500 Systolic blood pressure 137 mm[Hg] Jose Masci DO Work Phone: [facility] 08-16-2023 09:03-0500 Body temperature 97 [degF] Treatment Wstr Work Phone: [facility] 08-16-2023 09:03-0500 Diastolic blood pressure 67 mm[Hg] Treatment Wstr Work Phone: [facility] 08-16-2023 09:03-0500 Heart rate 57 /min Treatment Wstr Work Phone: [facility] 08-16-2023 09:03-0500 Systolic blood pressure 116 mm[Hg] Treatment Wstr Work Phone: [facility] 08-15-2023 09:00-0500 Body temperature 97.9 [degF] Jose Masci DO Work Phone: [facility] 08-15-2023 09:00-0500 Body weight 55.11 kg Jose Masci DO Work Phone: [facility] 08-15-2023 09:00-0500 Diastolic blood pressure 75 mm[Hg] Jose Masci DO Work Phone: [facility] 08-15-2023 09:00-0500 Heart rate 91 /min Jose Masci DO Work Phone: [facility] 08-15-2023 09:00-0500 SaO2% (BldA) [Mass fraction] 99 % Jose Masci DO Work Phone: [facility] 08-15-2023 09:00-0500 Systolic blood pressure 126 mm[Hg] Jose Masci DO Work Phone: [facility] 08-02-2023 08:13-0500 Body temperature 96.91 [degF] Treatment Wstr Work Phone: [facility] 08-02-2023 08:13-0500 Body weight 54.66 kg Treatment Wstr Work Phone: [facility] 08-02-2023 08:13-0500 Diastolic blood pressure 71 mm[Hg] Treatment Wstr Work Phone: [facility] 08-02-2023 08:13-0500 Heart rate 80 /min Treatment Wstr Work Phone: [facility] 08-02-2023 08:13-0500 Systolic blood pressure 139 mm[Hg] Treatment Wstr Work Phone: [facility] 07-31-2023 13:58-0500 Body height 170.2 cm Chester Kwan MD Work Phone: [facility] 07-31-2023 13:58-0500 Body weight 53.71 kg Chester Kwan MD Work Phone: [facility] 07-31-2023 13:58-0500 Diastolic blood pressure 71 mm[Hg] Chester Kwan MD Work Phone: [facility] 07-31-2023 13:58-0500 Heart rate 76 /min Chester Kwan MD Work Phone: [facility] 07-31-2023 13:58-0500 SaO2% (BldA) [Mass fraction] 100 % Chester Kwan MD Work Phone: [facility] 07-31-2023 13:58-0500 Systolic blood pressure 116 mm[Hg] Chester Kwan MD Work Phone: [facility] 07-26-2023 08:00-0500 Body temperature 97.2 [degF] Treatment Wstr Work Phone: [facility] 07-26-2023 08:00-0500 Body weight 55.34 kg Treatment Wstr Work Phone: [facility] 07-26-2023 08:00-0500 Diastolic blood pressure 62 mm[Hg] Treatment Wstr Work Phone: [facility] 07-26-2023 08:00-0500 Heart rate 82 /min Treatment Wstr Work Phone: [facility] 07-26-2023 08:00-0500 Systolic blood pressure 94 mm[Hg] Treatment Wstr Work Phone: [facility] 07-19-2023 08:14-0400 Body temperature 96.8 [degF] Treatment Wstr Work Phone: [facility] 07-19-2023 08:14-0400 Diastolic blood pressure 72 mm[Hg] Treatment Wstr Work Phone: [facility] 07-19-2023 08:14-0400 Heart rate 79 /min Treatment Wstr Work Phone: [facility] 07-19-2023 08:14-0400 Respiratory rate 16 /min Treatment Wstr Work Phone: [facility] 07-19-2023 08:14-0400 Systolic blood pressure 110 mm[Hg] Treatment Wstr Work Phone: [facility] 07-18-2023 09:01-0400 Body temperature 96.6 [degF] Jose Masci DO Work Phone: [facility] 07-18-2023 09:01-0400 Body weight 52.84 kg Jose Masci DO Work Phone: [facility] 07-18-2023 09:01-0400 Diastolic blood pressure 71 mm[Hg] Jose Masci DO Work Phone: [facility] 07-18-2023 09:01-0400 Heart rate 81 /min Jose Masci DO Work Phone: [facility] 07-18-2023 09:01-0400 SaO2% (BldA) [Mass fraction] 100 % Jose Masci DO Work Phone: [facility] 07-18-2023 09:01-0400 Systolic blood pressure 115 mm[Hg] Jose Masci DO Work Phone: [facility] 06-28-2023 08:09-0400 Body temperature 97.2 [degF] Treatment Wstr Work Phone: [facility] 06-28-2023 08:09-0400 Body weight 51.26 kg Treatment Wstr Work Phone: [facility] 06-28-2023 08:09-0400 Diastolic blood pressure 58 mm[Hg] Treatment Wstr Work Phone: [facility] 06-28-2023 08:09-0400 Heart rate 75 /min Treatment Wstr Work Phone: [facility] 06-28-2023 08:09-0400 SaO2% (BldA) [Mass fraction] 100 % Treatment Wstr Work Phone: [facility] 06-28-2023 08:09-0400 Systolic blood pressure 104 mm[Hg] Treatment Wstr Work Phone: [facility] 06-07-2023 08:43-0400 Body temperature 97.39 [degF] Treatment Wstr Work Phone: [facility] 06-07-2023 08:43-0400 Body weight 51.71 kg Treatment Wstr Work Phone: [facility] 06-07-2023 08:43-0400 Diastolic blood pressure 59 mm[Hg] Treatment Wstr Work Phone: [facility] 06-07-2023 08:43-0400 Heart rate 61 /min Treatment Wstr Work Phone: [facility] 06-07-2023 08:43-0400 Systolic blood pressure 89 mm[Hg] Treatment Wstr Work Phone: [facility] 05-31-2023 08:33-0400 Body temperature 97.2 [degF] Treatment Wstr Work Phone: [facility] 05-31-2023 08:33-0400 Body weight 51.94 kg Treatment Wstr Work Phone: [facility] 05-31-2023 08:33-0400 Diastolic blood pressure 56 mm[Hg] Treatment Wstr Work Phone: [facility] 05-31-2023 08:33-0400 Heart rate 58 /min Treatment Wstr Work Phone: [facility] 05-31-2023 08:33-0400 SaO2% (BldA) [Mass fraction] 97 % Treatment Wstr Work Phone: [facility] 05-31-2023 08:33-0400 Systolic blood pressure 82 mm[Hg] Treatment Wstr Work Phone: [facility] 05-27-2023 08:42-0400 Body height 170.2 cm Jose Miguel Herbert MD Work Phone: [facility] 05-27-2023 08:42-0400 Body temperature 97.81 [degF] Jose Miguel Herbert MD Work Phone: [facility] 05-27-2023 08:42-0400 Body weight 50.35 kg Jose Miguel Herbert MD Work Phone: [facility] 05-27-2023 08:42-0400 Diastolic blood pressure 70 mm[Hg] Jose Miguel Herbert MD Work Phone: [facility] 05-27-2023 08:42-0400 Heart rate 67 /min Jose Miguel Herbert MD Work Phone: [facility] 05-27-2023 08:42-0400 Respiratory rate 16 /min Jose Miguel Herbert MD Work Phone: [facility] 05-27-2023 08:42-0400 Systolic blood pressure 102 mm[Hg] Jose Miguel Hebrert MD Work Phone: [facility] 05-24-2023 09:45-0400 Body temperature 97.5 [degF] Treatment Wstr Work Phone: [facility] 05-24-2023 09:45-0400 Diastolic blood pressure 50 mm[Hg] Treatment Wstr Work Phone: [facility] 05-24-2023 09:45-0400 Heart rate 61 /min Treatment Wstr Work Phone: [facility] 05-24-2023 09:45-0400 SaO2% (BldA) [Mass fraction] 99 % Treatment Wstr Work Phone: [facility] 05-24-2023 09:45-0400 Systolic blood pressure 82 mm[Hg] Treatment Wstr Work Phone: [facility] 05-18-2023 07:00-0400 Body temperature 97.5 [degF] Treatment Wstr Work Phone: [facility] 05-18-2023 07:00-0400 Body weight 52.16 kg Treatment Wstr Work Phone: [facility] 05-18-2023 07:00-0400 Diastolic blood pressure 61 mm[Hg] Treatment Wstr Work Phone: [facility] 05-18-2023 07:00-0400 Heart rate 59 /min Treatment Wstr Work Phone: [facility] 05-18-2023 07:00-0400 Systolic blood pressure 101 mm[Hg] Treatment Wstr Work Phone: [facility] 05-03-2023 07:53-0400 Body temperature 97.5 [degF] Treatment Wstr Work Phone: [facility] 05-03-2023 07:53-0400 Body weight 53.75 kg Treatment Wstr Work Phone: [facility] 05-03-2023 07:53-0400 Diastolic blood pressure 68 mm[Hg] Treatment Wstr Work Phone: [facility] 05-03-2023 07:53-0400 Heart rate 70 /min Treatment Wstr Work Phone: [facility] 05-03-2023 07:53-0400 Systolic blood pressure 112 mm[Hg] Treatment Wstr Work Phone: [facility] 05-02-2023 16:10-0400 Body height 170.2 cm Chester Kwan MD Work Phone: [facility] 05-02-2023 16:10-0400 Body weight 51.71 kg Chester Kwan MD Work Phone: [facility] 05-02-2023 16:10-0400 Diastolic blood pressure 66 mm[Hg] Chester Kwan MD Work Phone: [facility] 05-02-2023 16:10-0400 Heart rate 68 /min Chester Kwan MD Work Phone: [facility] 05-02-2023 16:10-0400 SaO2% (BldA) [Mass fraction] 99 % Chester Kwan MD Work Phone: [facility] 05-02-2023 16:10-0400 Systolic blood pressure 112 mm[Hg] Chester Kwan MD Work Phone: [facility] 04-26-2023 10:07-0400 Diastolic blood pressure 56 mm[Hg] Treatment Wstr Work Phone: [facility] 04-26-2023 10:07-0400 Systolic blood pressure 109 mm[Hg] Treatment Wstr Work Phone: [facility] 04-26-2023 09:35-0400 Heart rate 62 /min Treatment Wstr Work Phone: [facility] 04-26-2023 07:00-0400 Body temperature 97.2 [degF] Treatment Wstr Work Phone: [facility] 04-19-2023 15:51-0400 Body temperature 97.5 [degF] Jose Masci DO Work Phone: [facility] 04-19-2023 15:51-0400 Body weight 53.07 kg Jose Masci DO Work Phone: [facility] 04-19-2023 15:51-0400 Diastolic blood pressure 72 mm[Hg] Jose Masci DO Work Phone: [facility] 04-19-2023 15:51-0400 Heart rate 77 /min Jose Masci DO Work Phone: [facility] 04-19-2023 15:51-0400 SaO2% (BldA) [Mass fraction] 99 % Jose Masci DO Work Phone: [facility] 04-19-2023 15:51-0400 Systolic blood pressure 115 mm[Hg] Jose Masci DO Work Phone: [facility] 04-06-2023 09:27-0400 Body height 170 cm Jose Masci DO Work Phone: [facility] 04-06-2023 09:27-0400 Body temperature 97.2 [degF] Jose Masci DO Work Phone: [facility] 04-06-2023 09:27-0400 Body weight 52.16 kg Jose Masci DO Work Phone: [facility] 04-06-2023 09:27-0400 Diastolic blood pressure 48 mm[Hg] Joes Masci DO Work Phone: [facility] 04-06-2023 09:27-0400 Heart rate 56 /min Jose Masci DO Work Phone: [facility] 04-06-2023 09:27-0400 SaO2% (BldA) [Mass fraction] 100 % Jose Masci DO Work Phone: [facility] 04-06-2023 09:27-0400 Systolic blood pressure 89 mm[Hg] Jose Masci DO Work Phone: [facility] 04-03-2023 13:04-0400 Body height 170.9 cm Pulm Wstr Work Phone: [facility] 04-03-2023 13:04-0400 Body weight 51.71 kg Pulm Wstr Work Phone: [facility] 04-03-2023 13:04-0400 Heart rate 65 /min Pulm Wstr Work Phone: [facility] 04-03-2023 13:04-0400 Respiratory rate 12 /min Pulm Wstr Work Phone: [facility] 04-03-2023 13:04-0400 SaO2% (BldA) [Mass fraction] 99 % Pulm Wstr Work Phone: [facility] 03-23-2023 13:41-0400 Body weight 52.62 kg Jose Miguel Herbert MD Work Phone: [facility] 03-23-2023 13:41-0400 Diastolic blood pressure 62 mm[Hg] Jose Miguel Herbert MD Work Phone: [facility] 03-23-2023 13:41-0400 Heart rate 72 /min Jose Miguel Herbert MD Work Phone: [facility] 03-23-2023 13:41-0400 Respiratory rate 16 /min Jose Miguel Herbert MD Work Phone: [facility] 03-23-2023 13:41-0400 Systolic blood pressure 92 mm[Hg] Jose Miguel Herbert MD Work Phone: [facility] 03-18-2023 09:23-0400 Body temperature 98.1 [degF] Dr. oJse Miguel Herbert Work Phone: [facility] 03-18-2023 09:23-0400 Diastolic blood pressure 67 mm[Hg] Dr. Jose Miguel Herbert Work Phone: [facility] 03-18-2023 09:23-0400 Heart rate 60 /min Dr. Jose Miguel Herbert Work Phone: 5(845)[phone] [place] [address] 03-18-2023 09:23-0400 Respiratory rate 14 /min Dr. Jose Miguel Herbert Work Phone: 7(027)[phone] [place] [address] 03-18-2023 09:23-0400 SaO2% (BldA) [Mass fraction] 99 % Dr. Jose Miguel Herbert Work Phone: [facility] 03-18-2023 09:23-0400 Systolic blood pressure 117 mm[Hg] Dr. Jose Miguel Herbert Work Phone: 8(105)[phone] [place] [address] 03-17-2023 14:19-0400 Body height 172.[address] Jose Miguel Herbert Work Phone: 5(024)[phone] [place] [address] 03-17-2023 14:19-0400 Body mass index (BMI) [Ratio] 17.5 kg/m2 Dr. Jose Miguel Herbert Work Phone: 1(732)[phone] [place] [address] 03-17-2023 14:19-0400 Body weight 52.[address] Jose Miguel Herbert Work Phone: 9(602)[phone] [place] [address] 03-17-2023 14:01-0400 Body temperature 98 [degF] [facility] 03-17-2023 14:01-0400 Diastolic blood pressure 78 mm[Hg] [facility] 03-17-2023 14:01-0400 Heart rate 54 /min [facility] 03-17-2023 14:01-0400 Respiratory rate 12 /min [facility] 03-17-2023 14:01-0400 Systolic blood pressure 126 mm[Hg] [facility] 03-17-2023 12:47-0400 SaO2% (BldA) [Mass fraction] 99 % [facility] 03-17-2023 11:03-0400 Body height 172.72 cm [facility] 03-17-2023 11:03-0400 Body mass index (BMI) [Ratio] 17.4 kg/m2 [facility] 03-17-2023 11:03-0400 Body weight 52.2 kg [facility] 01-27-2022 13:56-0400 Diastolic blood pressure 74 mm[Hg] Jose Miguel Herbert MD Work Phone: [facility] 01-27-2022 13:56-0400 Systolic blood pressure 134 mm[Hg] Jose Miguel Herbert MD Work Phone: [facility] 01-27-2022 13:11-0400 Body height 170.2 cm Jose Miguel Herbert MD Work Phone: [facility] 01-27-2022 13:11-0400 Body weight 54.88 kg Jose Miguel Herbert MD Work Phone: [facility] 01-27-2022 13:11-0400 Heart rate 68 /min Jose Miguel Herbert MD Work Phone: [facility] 01-27-2022 13:11-0400 Respiratory rate 16 /min Jose Miguel Herbert MD Work Phone: [facility] Encounters Encounter Date Encounter Type Care Provider Facility Start: 05-01-2025 ambulatory Jose Miguel Herbert Facility :[facility] Start: 04-22-2025 End: 04-22-2025 ambulatory JOSE MIGUEL HERBERT Facility:[facility] Start: 04-15-2025 End: 04-15-2025 Specialty Pharmacy To[facility] Comment on above: SPP Oral Oncology/he matology - Medication Refill ([place]) Start: 04-04-2025 End: 04-04-2025 Refill Jose Hugo DO Work Phone: Hematology/Oncology Comment on above: Refill Request Start: 03-18-2025 End: 03-18-2025 ambulatory JOSE MIGUEL HERBERT Facility:[facility] Start: 03-14-2025 End: 03-14-2025 Specialty Pharmacy Alvarado Christensen [facility] Comment on above: SPP Oral Oncology/he matology - Medication Refill ([place]) Start: 02-25-2025 End: 02-25-2025 Office outpatient visit 25 minutes Jose Hugo DO Work Phone: Hematology/Oncology Comment on above: Lymphoplasmacytic ly mphoma (HCC) (Primary Dx); Light chain (AL) amyloidosis (HCC); Cardiac amyloidosis (HCC) Start: 02-25-2025 End: 02-25-2025 ambulatory JOSE HUGO Facility:[facility] Start: 02-18-2025 End: 02-18-2025 ambulatory JOSE MIGUEL HERBERT Facility:[facility] Start: 02-16-2025 End: 02-17-2025 Refill Jose Hugo DO Work Phone: Hematology/Oncology Comment on above: Refill Request Start: 02-13-2025 End: 02-13-2025 Patient encounter procedure Shannen WOODS -[facility] Work Phone: Start: 02-13-2025 End: 02-13-[address] Jose Miguel Herbert MD Work Phone: [facility] Work Phone: Start: 02-04-2025 End: 02-04-2025 ambulatory SHEREE FABIAN Facility:[facility] Start: 01-30-2025 End: 01-30-2025 ambulatory JOSE MIGUEL HERBERT Facility:[facility] Start: 01-28-2025 End: 01-28-2025 Patient encounter procedure Shannen WOODS [facility] Work Phone: Start: 01-28-2025 End: 01-28-[address] Jose Miguel Herbert MD Work Phone: [facility] Work Phone: Start: 01-27-2025 End: 01-27-2025 Specialty Pharmacy To[facility] Comment on above: SPP Oral Oncology/he matology - Medication Refill ([place]) Start: 01-24-2025 End: 01-24-2025 Telephone encounter Jose Miguel Herbert MD Work Phone: [facility] [place] Comment on above: Orders Start: 01-23-2025 End: 01-23-2025 ambulatory JOSE MIGUEL HERBERT Facility:[facility] Start: 01-21-2025 End: 01-21-2025 Patient encounter procedure Chester Kwan MD Work Phone: Cardiology Comment on above: Cardiac amyloidosis (HCC) (Primary Dx); Chronic diastolic congestive heart failure (HCC); NICM (nonischemic cardiomyopathy) (HCC); Hyperlipidemia, mixed; ESRD (end stage renal disease) (HCC); Lymphoplasmacytic lymphoma (HCC); AL amyloidosis (HCC) Start: 01-21-2025 End: 01-21-2025 ambulatory CHESTER KWAN Facility:[facility] Start: 01-16-2025 End: 01-16-2025 Chart abstracting Jose Miguel Herbert MD Work Phone: [facility] [place] Comment on above: Outside Procedure Start: 01-14-2025 End: 01-14-2025 Chart abstracting Jose Miguel Herbert MD Work Phone: [facility] [place] Comment on above: Outside [id number] Ordered Outside H&P Start: 01-14-2025 ambulatory Jose Miguel Herbert Facility :[facility] Start: 01-14-2025 Non-patient / Non-visit Dr. Alvarado pillai MD -[facility] Start: 01-14-2025 End: 01-14-2025 Admission to same day surgery center Dr. Alvarado Brody MD -Surgical Day Care Start: 01-14-2025 End: 01-14-[address] Jsoe Miguel Herbert MD Work Phone: [facility] Work Phone: Start: 01-13-[address] Yessica Barrera MD -Laboratory, Specimen Work Phone: Start: 01-13-2025 [facility] Facility :[facility] Start: 01-10-2025 End: 01-10-[address] 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 Comment on above: Child Welfare Manager - O ther (Patient Question ) Start: 12-24-2024 End: 12-24-2024 [facility] Facility:[facility] Start: 12-10-2024 End: 12-10-2024 ambulatory JOSE Dinorah KOSTA Facility:[facility] Start: 12-03-2024 End: 12-03-2024 ambulatory [facility] Start: 12-03-2024 End: 12-03-2024 Office outpatient visit 25 minutes Jose Hugo DO Work Phone: Hematology/Oncology Comment on above: Lymphoplasmacytic ly mphoma (HCC) (Primary Dx); Light chain (AL) amyloidosis (HCC); Cardiac amyloidosis (HCC) Start: 11-26-2024 End: 11-26-2024 Specialty Pharmacy [facility] Comment on above: SPP Oral Oncology/he matology - Medication Refill (Brukinsa 80mg) Start: 11-22-2024 Encounter for other preprocedural examination [place] [facility] Start: 11-22-2024 End: 11-22-2024 Telephone encounter Jose Hugo DO Work Phone: Hematology/Oncology Comment on above: Medication Problem Start: 11-07-2024 End: 11-07-[address] Alvarado Brody MD -[facility] Work Phone: Start: 11-07-2024 End: 11-07-2024 ambulatory Jose Miguel Herbert Facility:[facility] Start: 10-31-2024 End: 10-31-2024 Specialty Pharmacy [facility] Comment on above: SPP Oral Oncology/he matology - Medication Refill (brukinsa) Start: 10-28-2024 End: 10-28-2024 Refill Jose Hugo DO Work Phone: Hematology/Oncology Comment on above: Refill Request Start: 10-10-2024 End: 10-10-2024 ambulatory YESSICA HANSEN Facility:[facility] Start: 10-10-2024 End: 10-10-2024 Patient encounter procedure Yessica Hansen MD Work Phone: Cardiology Comment on above: AL amyloidosis (HCC) (Primary Dx); Heart failure with preserved ejection fraction, unspecified HF chronicity (HCC); Cardiomyopathy, unspecified type (HCC); Abnormal EKG Start: 10-09-2024 End: 10-09-2024 Chart abstracting Jose Miguel Herbert MD Work Phone: [facility] Comment on above: Outside Imaging Start: 10-08-2024 Non-patient / Non-visit Dr. Alvarado pillai MD -[facility] Start: 10-08-2024 End: 10-08-2024 Patient encounter procedure Shannen WOODS -[facility] Work Phone: Start: 10-08-2024 End: 10-08-2024 ambulatory Jose Miguel Herbert Facility:[facility] Start: 09-26-2024 End: 09-26-2024 Specialty Pharmacy [place] [facility] Comment on above: SPP Oral Oncology/he matology - Medication Refill (Brukinsa) Start: 09-05-2024 End: 09-05-2024 ambulatory Jose Miguel Herbert Facility:[facility] Start: 09-03-2024 End: 09-03-2024 Patient encounter procedure Jose Hugo DO Work Phone: Hematology/Oncology Start: 09-03-2024 End: 09-03-2024 ambulatory Jose Hugo DO Work Phone: Hematology/Oncology Comment on above: Lymphoplasmacytic ly mphoma (HCC) (Primary Dx); AL amyloidosis (HCC); Cardiac amyloidosis (HCC) Start: 08-26-2024 End: 08-26-2024 [facility] Comment on above: SPP Oral Oncology/he matology - Medication Refill (Brukinsa ) Start: 08-08-2024 End: 08-08-2024 Refill Jose Hugo DO Work Phone: Hematology/Oncology Comment on above: Refill Request Start: 08-06-2024 End: 08-06-2024 Telephone encounter Cathie Rubin MA [facility] [place] Comment on above: Orders Start: 08-06-2024 End: 08-06-2024 ambulatory JOSE MIGUEL HERBERT Facility:[facility] Start: 08-06-2024 End: 08-06-2024 Patient encounter procedure Jose Miguel Herbert MD Work Phone: [facility] [place] Comment on above: Medicare annual well ness visit, subsequent (Primary Dx); Hyperlipidemia, mixed; Elevated hemoglobin A1c; Abnormal thyroid blood test; Bilateral leg edema; AL amyloidosis (HCC); Cardiac amyloidosis (HCC); Chronic diastolic congestive heart failure (HCC); NICM (nonischemic cardiomyopathy) (HCC); CKD (chronic kidney disease) stage 5, GFR less than 15 ml/min (HCC); ESRD (end stage renal disease) (HCC); Secondary hyperparathyroidism, renal (HCC); [place]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); Lymphoplasmacytic lymphoma (HCC); Anemia, unspecified type; Benign prostatic hyperplasia with urinary obstruction; Dysfunction of left eustachian tube; Encounter for screening examination for other mental health and behavioral disorders; Encounter for immunization Start: 08-01-2024 End: 08-01-2024 ambulatory SHEREE FABIAN Facility:[facility] Start: 07-31-2024 End: 07-31-2024 Patient encounter procedure Jose Miguel Herbert MD Work Phone: [facility] Start: 07-31-2024 End: 07-31-2024 Telephone encounter Jose Miguel Herbert MD Work Phone: [facility] [place] Comment on above: Lab Orders Start: 07-25-2024 End: 07-25-2024 Specialty Pharmacy [facility] Comment on above: SPP Oral Oncology/he matology - Medication Refill (brukinsa) Start: 07-18-2024 End: 07-18-2024 ambulatory JOSE MIGUEL HERBERT Facility:[facility] Start: 07-15-2024 End: 07-15-2024 Refill Jose Hugo DO Work Phone: Hematology/Oncology Comment on above: Refill Request Start: 07-12-2024 End: 07-15-2024 Telephone encounter Jose Hugo DO Work Phone: Hematology/Oncology Start: 06-21-2024 End: 06-21-2024 Specialty Pharmacy [place] [facility] Comment on above: SPP Oral Oncology/he matology - Medication Refill (Brukinsa ) Start: 06-19-2024 End: 06-20-2024 Telephone encounter Jose Hugo DO Work Phone: Hematology/Oncology Comment on above: Appointment Start: 06-13-2024 End: 06-13-2024 Patient encounter procedure Jose Hugo DO Work Phone: Hematology/Oncology Start: 06-13-2024 End: 06-13-2024 ambulatory Jose Hugo DO Work Phone: Hematology/Oncology Comment on above: Lymphoplasmacytic ly mphoma (HCC) (Primary Dx); Cardiomyopathy, unspecified type (HCC) Start: 05-30-2024 End: 05-30-2024 ambulatory JOSE MIGUEL HERBERT Facility:[facility] Start: 05-16-2024 End: 05-16-2024 Patient encounter procedure Jose Hugo DO Work Phone: Hematology/Oncology Start: 05-16-2024 End: 05-16-2024 ambulatory Jose Hugo DO Work Phone: Hematology/Oncology Comment on above: Lymphoplasmacytic ly mphoma (HCC) (Primary Dx); AL amyloidosis (HCC) Start: 05-15-2024 End: 05-15-2024 Chart abstracting Jose Miguel Herbert MD Work Phone: [facility] Comment on above: Outside Urology Outside [id number] Ordered Start: 05-13-2024 End: 05-14-2024 [facility]ty [facility] [facility] Comment on above: SPP Oral Oncology/he matology - Medication Refill (Brukinsa 80mg) Start: 05-07-2024 End: 05-07-2024 Telephone encounter Dina Tolentino RN Hematology/Oncology Comment on above: Child Welfare Manager - O ther (Oral Anti-Cancer Agents Follow-up (zanubrutinib) ) Start: 04-25-2024 End: 04-25-2024 ambulatory Treatment Rm 5 Ste[facility] Work Phone: Hematology/Oncology Comment on above: SINDI (acute kidney in jury) (HCC) (Primary Dx); Lymphoplasmacytic lymphoma (HCC); [place]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); Cardiac amyloidosis (HCC) Start: 04-24-2024 Telephone encounter Dina Tolentino RN He matology/Oncology Comment on above: Child Welfare Manager - O ther (Oral Anti-cancer agents education (zanubrutinib) ) Start: 04-23-2024 Telephone encounter Jose roberts DO Work Phone: Hematology/Oncology Comment on above: Opened In Error Start: 04-23-2024 End: 04-23-2024 ambulatory Treatment Rm 3 Stef [facility] Work Phone: Hematology/Oncology Comment on above: SINDI (acute kidney in jury) (HCC) (Primary Dx); Lymphoplasmacytic lymphoma (HCC); [place]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); Cardiac amyloidosis (HCC) Start: 04-18-2024 End: 04-18-2024 ambulatory Jose Hugo DO Work Phone: Hematology/Oncology Comment on above: Lymphoplasmacytic ly mphoma (HCC) (Primary Dx); Light chain (AL) amyloidosis (HCC); CKD (chronic kidney disease) stage 5, GFR less than 15 ml/min (HCC) Start: 04-18-2024 End: 04-18-2024 Patient encounter procedure Jose Hugo DO Work Phone: Hematology/Oncology Comment on above: SPP Oral Oncology/he matology - Treatment Referral ([facility]); Insurance Authorization (Pending PA) Start: 04-09-2024 End: 04-09-2024 Refill Jose Miguel Herbert MD Work Phone: [facility] Comment on above: Refill Request AL amyloidosis (HCC) (Primary Dx); Chronic heart failure with preserved ejection fraction (HFpEF) (HCC); NICM (nonischemic cardiomyopathy) (HCC); Hyperlipidemia, mixed; Chronic diastolic congestive heart failure (HCC); Cardiac amyloidosis (HCC); ESRD (end stage renal disease) (HCC); Lymphoplasmacytic lymphoma (HCC); [place]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) Start: 03-28-2024 End: 03-28-2024 ambulatory [facility] Work Phone: Hematology/Oncology Comment on above: CKD (chronic kidney disease) stage 5, GFR less than 15 ml/min (HCC) (Primary Dx); SINDI (acute kidney injury) (HCC); Lymphoplasmacytic lymphoma (HCC); [place]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); Cardiac amyloidosis (HCC) Start: 03-26-2024 End: 03-26-2024 ambulatory Treatment Rm 6 [facility] Work Phone: Hematology/Oncology Comment on above: SINDI (acute kidney in jury) (HCC) (Primary Dx); Lymphoplasmacytic lymphoma (HCC); [place]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); Cardiac amyloidosis (HCC) Start: 03-19-2024 End: 03-19-2024 ambulatory Oanh Jim APRN.PRODUCT INTRODUCTION MANAGER Work Phone: Hematology/Oncology Comment on above: Lymphoplasmacytic ly mphoma (HCC) (Primary Dx); [place]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); Cardiac amyloidosis (HCC) Start: 03-19-2024 End: 03-19-2024 Patient encounter procedure Oanh Jim APRN.PRODUCT INTRODUCTION MANAGER Work Phone: Hematology/Oncology Start: 02-29-2024 End: 02-29-2024 ambulatory Treatment Rm 11 Stef [facility] Work Phone: Hematology/Oncology Comment on above: SINDI (acute kidney in jury) (HCC) (Primary Dx); Lymphoplasmacytic lymphoma (HCC); [place]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); Cardiac amyloidosis (HCC) Start: 02-27-2024 End: 02-27-2024 ambulatory Treatment Rm 6 [facility] Work Phone: Hematology/Oncology Comment on above: SINDI (acute kidney in jury) (HCC) (Primary Dx); Lymphoplasmacytic lymphoma (HCC); [place]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); Cardiac amyloidosis (HCC) Start: 02-20-2024 Telephone encounter Jose roberts DO Work Phone: Hematology/Oncology Start: 02-01-2024 End: 02-01-2024 ambulatory Treatment Rm 12 [facility] Work Phone: Hematology/Oncology Comment on above: SINDI (acute kidney in jury) (HCC) (Primary Dx); Lymphoplasmacytic lymphoma (HCC); [place]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); Cardiac amyloidosis (HCC) Start: 01-30-2024 End: 01-30-2024 ambulatory Treatment Rm 7 [facility] Work Phone: Hematology/Oncology Comment on above: SINDI (acute kidney in jury) (HCC) (Primary Dx); Lymphoplasmacytic lymphoma (HCC); [place]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); Cardiac amyloidosis (HCC) Start: 01-10-2024 Telephone encounter Dina Tolentino RN He matology/Oncology Comment on above: Child Welfare Manager - O ther (Follow-up ) Start: 01-05-2024 Orders Only Jose Waldron Work Phone: Hematology/Oncology Comment on above: Lymphoplasmacytic ly mphoma (HCC) (Primary Dx); Light chain (AL) amyloidosis (HCC) Start: 01-04-2024 End: 01-04-2024 ambulatory Jose Hugo DO Work Phone: Hematology/Oncology Comment on above: Lymphoplasmacytic ly mphoma (HCC) (Primary Dx); Cardiac amyloidosis (HCC); [place]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); Other specified hypotension Start: 01-04-2024 End: 01-04-2024 Patient encounter procedure Jose Hugo DO Work Phone: Hematology/Oncology Start: 01-02-2024 Telephone encounter Jose roberts DO Work Phone: Hematology/Oncology Comment on above: Patient Update Start: 12-19-2023 Telephone encounter Jose roberts DO Work Phone: Hematology/Oncology Comment on above: Appointment Start: 12-18-2023 End: 12-18-2023 Emergency department patient visit [facility] Work Phone: Start: 12-18-2023 End: 12-18-2023 ambulatory Jose Hugo DO Work Phone: Hematology/Oncology Comment on above: Light chain (AL) cipriano loidosis (HCC) (Primary Dx) Start: 12-18-2023 End: 12-18-2023 Patient encounter procedure Jose Copeland Kosta DO Work Phone: [facility] Start: 12-15-2023 End: 12-15-2023 [facility] Start: 12-12-2023 Telephone encounter Jose roberts DO Work Phone: Hematology/Oncology Comment on above: Patient Update Start: 12-11-2023 ambulatory JOSE MIGUEL Iqbal ty:[facility] Start: 12-11-2023 End: 12-11-2023 Subsequent hospital visit by physician Ankur Benavidez PA-C Work Phone: [facility] Comment on above: CKD (chronic kidney disease), stage V (HCC) [N18.5] Start: 12-08-2023 End: 12-08-2023 Nursing evaluation of patient and report Mi Nurse Work Phone: Family Medicine [place] Comment on above: Encounter for immuni zation (Primary Dx) Start: 12-07-2023 End: 12-07-2023 Orders Only Xena Pagan APRN.PRODUCT INTRODUCTION MANAGER Work Phone: [facility] Comment on above: CKD (chronic kidney disease), stage V (HCC) (Primary Dx) Patient Question CKD (chronic kidney disease), stage V (HCC) [N18.5] Start: 12-05-2023 Orders Only Gumaro cox DO Work Phone: [facility] Comment on above: CKD (chronic kidney disease), stage V (HCC) (Primary Dx) Results Start: 11-30-2023 End: 11-30-2023 ambulatory Injection [facility] Safety Technologiestr Work Phone: Hematology/Oncology Comment on above: Cardiac amyloidosis (HCC) (Primary Dx); Lymphoplasmacytic lymphoma (HCC); [place]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); SINDI (acute kidney injury) (HCC) Start: 11-29-2023 End: 11-29-2023 Patient encounter procedure Jose Miguel Herbert MD Work Phone: [facility] Comment on above: Hyperlipidemia, mixe d (Primary Dx); Elevated hemoglobin A1c; AL amyloidosis (HCC); Lymphoplasmacytic lymphoma (HCC); Cardiac amyloidosis (HCC); Chronic diastolic congestive heart failure (HCC); NICM (nonischemic cardiomyopathy) (HCC); [place]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); CKD (chronic kidney disease) stage 5, GFR less than 15 ml/min (HCC); Secondary hyperparathyroidism, renal (HCC); Bilateral leg edema; Anemia, unspecified type; Abnormal thyroid blood test; Advance directive discussed with patient; Situational depression Start: 11-29-2023 End: 11-29-2023 ambulatory Treatment Rm 7 [facility] Safety Technologiestr Work Phone: Hematology/Oncology Comment on above: Cardiac amyloidosis (HCC) (Primary Dx); Lymphoplasmacytic lymphoma (HCC); [place]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); SINDI (acute kidney injury) (HCC) Start: 11-28-2023 End: 11-28-2023 ambulatory Treatment Rm 7 [facility] Safety Technologiestr Work Phone: Hematology/Oncology Comment on above: Cardiac amyloidosis (HCC) (Primary Dx); Lymphoplasmacytic lymphoma (HCC); [place]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); SINDI (acute kidney injury) (HCC) Start: 11-27-2023 End: 11-27-2023 ambulatory Oanh Jim IT PROJECT LEAD.PRODUCT INTRODUCTION MANAGER Work Phone: Hematology/Oncology Comment on above: Lymphoplasmacytic ly mphoma (HCC) (Primary Dx); [place]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); Renal amyloidosis (HCC) (HCC); Cardiac amyloidosis (HCC) Start: 11-27-2023 End: 11-27-2023 Patient encounter procedure Oanhnathen Jim IT PROJECT LEAD.PRODUCT INTRODUCTION MANAGER Work Phone: [facility] Start: 11-24-2023 End: 11-24-2023 Office outpatient visit 40 minutes Gumaro Pérez DO Work Phone: [facility] Comment on above: CKD (chronic kidney disease), stage V (HCC) (Primary Dx); Metabolic bone disease Start: 11-24-2023 End: 11-24-2023 Patient encounter procedure Xena Pagan IT PROJECT LEAD.PRODUCT INTRODUCTION MANAGER Work Phone: [facility] Comment on above: Encounter for health education (Primary Dx) Start: 11-22-2023 Telephone encounter Megan HINOJOSA Palliative Medicine Comment on above: Palliative Medicine Consult Start: 11-16-2023 End: 11-16-2023 Patient encounter procedure Talia Russell IT PROJECT LEAD.PRODUCT INTRODUCTION MANAGER Work Phone: Cardiology Comment on above: HFrEF (heart failure with reduced ejection fraction) (HCC) (Primary Dx) Start: 11-10-2023 Chart abstracting Jose Miguel angulo MD Work Phone: Family [facility] Comment on above: Outside Urology Start: 11-08-2023 Telephone encounter Jose roberts DO Work Phone: Hematology/Oncology Comment on above: Results Start: 11-06-2023 Orders Only Jose Waldron Work Phone: Hematology/Oncology Comment on above: Lymphoplasmacytic ly mphoma (HCC) (Primary Dx); [place]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); Renal amyloidosis (HCC) (HCC); Cardiac amyloidosis (HCC) Start: 11-02-2023 End: 11-02-2023 ambulatory Injection Stef [facility] Safety Technologiestr Work Phone: Hematology/Oncology Comment on above: Cardiac amyloidosis (HCC) (Primary Dx); Lymphoplasmacytic lymphoma (HCC); [place]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); SINDI (acute kidney injury) (HCC) Start: 11-01-2023 End: 11-01-2023 ambulatory Treatment Rm 8 [facility] Work Phone: Hematology/Oncology Comment on above: Cardiac amyloidosis (HCC) (Primary Dx); Lymphoplasmacytic lymphoma (HCC); [place]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); SINDI (acute kidney injury) (HCC) Start: 10-31-2023 End: 10-31-2023 ambulatory Treatment Rm 10 Stef [facility] Safety Technologiestr Work Phone: Hematology/Oncology Comment on above: Cardiac amyloidosis (HCC) (Primary Dx); Lymphoplasmacytic lymphoma (HCC); [place]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); SNIDI (acute kidney injury) (HCC) Start: 10-27-2023 End: 10-27-2023 ambulatory Jose Hugo DO Work Phone: Hematology/Oncology Comment on above: Lymphoplasmacytic ly mphoma (HCC) (Primary Dx); [place]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); Renal amyloidosis (HCC) (HCC); Cardiac amyloidosis (HCC) Start: 10-27-2023 End: 10-27-2023 Patient encounter procedure Jose Hugo DO Work Phone: [facility] Start: 10-23-2023 End: 10-23-2023 Office outpatient new 45 minutes Gumaro Pérez DO Work Phone: Kidney Medicine [facility] Comment on above: Amyloid kidney (HCC) (HCC) (Primary Dx); CKD (chronic kidney disease), stage IV (HCC); Obstructive uropathy Start: 09-01-2023 End: 09-01-2023 ambulatory Jasiel Peñaloza MD Work Phone: Cardiology Comment on above: Heart Failure Start: 09-01-2023 End: 09-01-2023 Patient encounter procedure Jasiel Peñaloza MD Work Phone: [facility] Start: 08-25-2023 End: 08-25-2023 ambulatory Treatment Rm 13 Stef [facility] [employer] Work Phone: Hematology/Oncology Comment on above: Lymphoplasmacytic ly mphoma (HCC) (Primary Dx) Start: 08-24-2023 End: 08-24-2023 ambulatory Treatment Rm 8 [facility] Safety Technologiestr Work Phone: Hematology/Oncology Comment on above: Cardiac amyloidosis (HCC) (Primary Dx); Lymphoplasmacytic lymphoma (HCC); [place]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); SINDI (acute kidney injury) (HCC); Stage 3b chronic kidney disease (HCC); AL amyloidosis (HCC) Start: 08-23-2023 End: 08-23-2023 ambulatory Treatment Rm 8 [facility] [employer] Work Phone: Hematology/Oncology Comment on above: Cardiac amyloidosis (HCC) (Primary Dx); Lymphoplasmacytic lymphoma (HCC); [place]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); SINDI (acute kidney injury) (HCC); Stage 3b chronic kidney disease (HCC); AL amyloidosis (HCC) Start: 08-22-2023 End: 08-22-2023 ambulatory Treatment Rm 6 Stef [facility] [employer] Work Phone: Hematology/Oncology Comment on above: Cardiac amyloidosis (HCC) (Primary Dx); Lymphoplasmacytic lymphoma (HCC); [place]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); SINDI (acute kidney injury) (HCC); Stage 3b chronic kidney disease (HCC); AL amyloidosis (HCC) Start: 08-21-2023 End: 08-21-2023 floor hand [facility] [employer] Work Phone: Hematology/Oncology Comment on above: Encounter for educat ion (Primary Dx) Lymphoplasmacytic ly mphoma (HCC) (Primary Dx); AL amyloidosis (HCC) Start: 08-17-2023 End: 08-17-2023 ambulatory Jose Hugo DO Work Phone: Hematology/Oncology Comment on above: Lymphoplasmacytic ly mphoma (HCC) (Primary Dx); AL amyloidosis (HCC); Cardiac amyloidosis (HCC) Start: 08-17-2023 End: 08-17-2023 Patient encounter procedure Jose Hugo DO Work Phone: [facility] Start: 08-16-2023 End: 08-16-2023 ambulatory Treatment Rm 13 Stef [facility] Work Phone: Hematology/Oncology Comment on above: Lymphoplasmacytic ly mphoma (HCC) (Primary Dx); [place]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); SINDI (acute kidney injury) (HCC) Start: 08-15-2023 End: 08-15-2023 ambulatory Jose Hugo DO Work Phone: Hematology/Oncology Comment on above: AL amyloidosis (HCC) (Primary Dx); Lymphoplasmacytic lymphoma (HCC); Cardiac amyloidosis (HCC); Renal amyloidosis (HCC) Start: 08-15-2023 End: 08-15-2023 Patient encounter procedure Jose Hugo DO Work Phone: [facility] Start: 08-08-2023 Telephone encounter Jose roberts DO Work Phone: Hematology/Oncology Comment on above: Patient Update Start: 08-02-2023 End: 08-02-2023 ambulatory Treatment Rm 8 [facility] [employer] Work Phone: Hematology/Oncology Comment on above: Lymphoplasmacytic ly mphoma (HCC) (Primary Dx); [place]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); SINDI (acute kidney injury) (HCC) Start: 07-31-2023 End: 07-31-2023 Patient encounter procedure Chester Kwan MD Work Phone: Cardiology Comment on above: NICM (nonischemic ca rdiomyopathy) (HCC) (Primary Dx); Chronic heart failure with preserved ejection fraction (HFpEF) (HCC); Hyperlipidemia, mixed; Stage 3b chronic kidney disease (HCC); Lymphoplasmacytic lymphoma (HCC); [place]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); AL amyloidosis (HCC); Bilateral leg edema AL amyloidosis (HCC) (Primary Dx) Start: 07-26-2023 End: 07-26-2023 ambulatory Treatment Rm 9 Stef [facility] Work Phone: Hematology/Oncology Comment on above: Elevated hemoglobin A1c (Primary Dx); Lymphoplasmacytic lymphoma (HCC); [place]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); SINDI (acute kidney injury) (HCC) Start: 07-25-2023 Telephone encounter Jose roberts DO Work Phone: Hematology/Oncology Comment on above: Patient Question Start: 07-19-2023 End: 07-19-2023 ambulatory Treatment Rm 8 [facility] Work Phone: Hematology/Oncology Comment on above: Lymphoplasmacytic ly mphoma (HCC) (Primary Dx); [place]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); SINDI (acute kidney injury) (HCC) Start: 07-18-2023 End: 07-18-2023 ambulatory Jose Hugo DO Work Phone: Hematology/Oncology Comment on above: [place] light chain de position disease (HCC) (Primary Dx); AL amyloidosis (HCC); Stage 3b chronic kidney disease (HCC) Start: 07-18-2023 End: 07-18-2023 Patient encounter procedure Jose Hugo DO Work Phone: [facility] Start: 06-28-2023 Telephone encounter Jose roberts DO Work Phone: Hematology/Oncology Comment on above: Patient Update Start: 06-28-2023 End: 06-28-2023 ambulatory Treatment Rm 8 [facility] Work Phone: Hematology/Oncology Comment on above: Lymphoplasmacytic ly mphoma (HCC) (Primary Dx); [place]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); SINDI (acute kidney injury) (HCC) Start: 06-26-2023 Telephone encounter Jose Miguel Herbert MD Work Phone: Family [facility] [place] Comment on above: Results Start: 06-21-2023 Telephone encounter Chester Kwan MD Work Phone: Cardiology Comment on above: Results Start: 06-07-2023 End: 09-20-2023 ambulatory Treatment Rm 10 [facility] Work Phone: Hematology/Oncology Comment on above: Lymphoplasmacytic ly mphoma (HCC) (Primary Dx); [place]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); SINDI (acute kidney injury) (HCC) Start: 06-06-2023 Telephone encounter Dina Tolentino RN He matology/Oncology Comment on above: Child Welfare Manager - O ther (Follow-up ) Start: 06-02-2023 End: 06-02-2023 ambulatory Chester Kwan MD Work Phone: Cardiology Comment on above: Heart Failure Start: 06-02-2023 End: 06-02-2023 Patient encounter procedure Chester Kwan MD Work Phone: [facility] Start: 06-01-2023 Telephone encounter Chseter Kwan MD Work Phone: Cardiology Comment on above: Patient Education Start: 05-31-2023 Chart abstracting Lo Hare RN Hematology/Oncology Comment on above: Research ([id number] Conse nt) Start: 05-31-2023 End: 05-31-2023 ambulatory Treatment Rm 6 Stef [facility] Work Phone: Hematology/Oncology Comment on above: Lymphoplasmacytic ly mphoma (HCC) (Primary Dx); [place]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); SINDI (acute kidney injury) (HCC); Malaise and fatigue Start: 05-30-2023 Orders Only Jose Waldron Work Phone: Hematology/Oncology Comment on above: Lymphoplasmacytic ly mphoma (HCC) (Primary Dx); [place]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); SINDI (acute kidney injury) (HCC); Light chain (AL) amyloidosis (HCC); Cardiac amyloidosis (HCC) Start: 05-29-2023 Orders Only Chester Kwan MD Work Phone: Cardiology Comment on above: NICM (nonischemic ca rdiomyopathy) (HCC) (Primary Dx); Acute on chronic heart failure with preserved ejection fraction (HFpEF) (HCC) Start: 05-27-2023 End: 05-27-2023 Patient encounter procedure Jose Miguel Herbert MD Work Phone: Family [facility] [place] Comment on above: Medicare annual well ness visit, subsequent (Primary Dx); Lymphoplasmacytic lymphoma (HCC); [place]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); Stage 3b chronic kidney disease (HCC); SINDI (acute kidney injury) (HCC); AL amyloidosis (HCC); Abnormal thyroid blood test; Anemia, unspecified type; Bilateral leg edema; NICM (nonischemic cardiomyopathy) (HCC); BPH without obstruction/lower urinary tract symptoms; Elevated LDL cholesterol level; Elevated blood sugar Start: 05-24-2023 End: 05-24-2023 ambulatory Treatment Rm 13 [facility] Work Phone: Hematology/Oncology Comment on above: Lymphoplasmacytic ly mphoma (HCC) (Primary Dx); [place]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); SINDI (acute kidney injury) (HCC); Stage 3b chronic kidney disease (HCC); AL amyloidosis (HCC) Start: 05-18-2023 End: 05-18-2023 ambulatory Treatment Rm 2 [facility] Work Phone: Hematology/Oncology Comment on above: Lymphoplasmacytic ly mphoma (HCC) (Primary Dx); [place]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); SINDI (acute kidney injury) (HCC) Start: 05-17-2023 End: 05-18-2023 ambulatory JOSE HUGO Facility:[facility] Start: 05-12-2023 Chart abstracting Jose Miguel angulo MD Work Phone: [facility] [place] Comment on above: Outside Urology Start: 05-11-2023 Telephone encounter Jose roberts DO Work Phone: Hematology/Oncology Comment on above: Orders Start: 05-08-2023 Telephone encounter Jose Miguel Herbert MD Work Phone: [facility] [place] Comment on above: Results Start: 05-03-2023 End: 05-03-2023 ambulatory Treatment Rm 1 [facility] Work Phone: Hematology/Oncology Comment on above: Lymphoplasmacytic ly mphoma (HCC) (Primary Dx); [place]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); SINDI (acute kidney injury) (HCC) Start: 05-02-2023 End: 05-02-2023 Patient encounter procedure Chester Kwan MD Work Phone: Cardiology Comment on above: SOB (shortness of br eath) (Primary Dx); Acute on chronic heart failure with preserved ejection fraction (HFpEF) (HCC); SINDI (acute kidney injury) (HCC); Stage 3b chronic kidney disease (HCC); NICM (nonischemic cardiomyopathy) (HCC); Lymphoplasmacytic lymphoma (HCC); AL amyloidosis (HCC) Start: 05-01-2023 Telephone encounter Chester Kwan MD Work Phone: Cardiology Comment on above: Appointment Start: 04-27-2023 Orders Only Chester Kwan MD Work Phone: Cardiology Comment on above: Acute on chronic hea rt failure with preserved ejection fraction (HFpEF) (HCC) (Primary Dx) Child Welfare Manager - O ther (C1D1 Post Treatment Call (Rituxan/Velcade)) Start: 04-26-2023 Telephone encounter Financial Navigator Stef Work Phone: Financial Services Comment on above: Benefits Investigati on Results Future Appointment Start: 04-26-2023 End: 04-26-2023 ambulatory Treatment Rm 1 Stef [facility] Work Phone: Hematology/Oncology Comment on above: Lymphoplasmacytic ly mphoma (HCC) (Primary Dx); [place]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); SINDI (acute kidney injury) (HCC) Start: 04-25-2023 Orders Only Jose aWldron Work Phone: Hematology/Oncology Comment on above: Lymphoplasmacytic ly mphoma (HCC) (Primary Dx); Light chain (AL) amyloidosis (HCC); [place]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 Anibal Herbert Work Phone: [facility] Start: 04-20-2023 Telephone encounter Dina Tolentino RN He matology/Oncology Comment on above: Child Welfare Manager - O ther (Treatment Planning ) Start: 04-20-2023 End: 04-20-2023 floor hand [facility] Work Phone: Hematology/Oncology Comment on above: Encounter for educat ion (Primary Dx) Start: 04-19-2023 Telephone encounter Dina Tolentino RN He matology/Oncology Comment on above: Child Welfare Manager - O ther (Introduction ) AVS 04/19/23, CHEMO ST ART Start: 04-19-2023 End: 04-19-[address] 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 Jose Miguel Herbert Work Phone: [facility]-Cardiovascul ar Services Work Phone: Start: 04-18-2023 Telephone encounter Jose roberts DO Work Phone: Hematology/Oncology Comment on above: Follow Up Start: 04-18-2023 End: 04-18-2023 Subsequent hospital visit by physician Ct Prep [facility] Cat Scan Comment on above: [place] macroglo bulinemia (HCC) [C88.0] Start: 04-14-2023 End: 04-14-2023 ambulatory EMIL MIKE Facility:[facility] Start: 04-13-2023 Telephone encounter Jose roberts DO Work Phone: Hematology/Oncology Comment on above: Opened In Error Start: 04-10-2023 Chart abstracting Jose Miguel angulo MD Work Phone: Family [facility] Comment on above: Results Start: 04-06-2023 End: 04-06-2023 ambulatory Jose Hugo DO Work Phone: Hematology/Oncology Comment on above: 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 Jose Miguel Herbert Work Phone: [facility]-Laboratory, Specimen Work Phone: Start: 04-04-2023 Chart abstracting Jose Miguel angulo MD Work Phone: [facility] Start: 04-04-2023 Telephone encounter Jose Miguel Herbert MD Work Phone: [facility] Comment on above: Patient Update Results Start: 04-03-2023 End: 04-03-2023 Subsequent hospital visit by physician Ct [facility] (I-Stat) Work Phone: Cat Scan Comment on above: Unintended weight lo ss [R63.4] Start: 04-03-2023 End: 04-03-2023 ambulatory Pulm Lab [facility] Work Phone: PULM LAB [facility] Comment on above: Spirometry Start: 04-03-2023 End: 04-03-2023 Patient encounter procedure Pulm Lab [facility] Start: 03-30-2023 End: 03-30-2023 Subsequent hospital visit by physician Us [facility] Mob 2 Work Phone: Radiology Comment on above: Unintended weight lo ss [R63.4] Start: 03-23-2023 End: 03-23-2023 Patient encounter procedure Jose Miguel Herbert MD Work Phone: [facility] Comment on above: Unintended weight lo ss (Primary Dx); Fatigue, unspecified type; SINDI (acute kidney injury) (HCC); Anemia, unspecified type; Decreased stamina; Elevated troponin level; Nonspecific ST-T wave electrocardiographic changes; Hoarseness of voice; Black hairy tongue; Altered taste; Bilateral leg edema; SOB (shortness of breath); Lack of appetite; Generalized weakness Start: 03-18-2023 Non-patient / Non-visit Dr. Anibal Herbert Work Phone: [facility] Work Phone: Start: 03-17-2023 Non-patient / Non-visit Dr. Anibal Herbert Work Phone: [facility] Work Phone: Start: 03-17-2023 Non-patient / Non-visit Dr. Anibal Herbert Work Phone: [facility] Start: 03-17-2023 Telephone encounter Sheree WOODS-C Work Phone: [facility] Comment on above: Results Start: 03-17-2023 End: 03-18-2023 Evaluation and management of inpatient [facility]-Progressive Care Unit Work Phone: Start: 03-17-2023 observation encounter W [facility] Work Phone: Start: 03-16-2023 Orders Only Sheree Ireland on PA-C Work Phone: [facility] Comment on above: Encounter for lipid screening for cardiovascular disease (Primary Dx); Prostate disorder; Medication management; BPH without obstruction/lower urinary tract symptoms Start: 11-11-2022 Patient encounter procedure Anibal Herbert MD Work Phone: [facility] Work Phone: Start: 11-11-2022 Telephone encounter Jose Miguel Herbert MD Work Phone: [address] [place] [address] Comment on above: Orders Start: 01-27-2022 End: 01-27-2022 Patient encounter procedure Jose Miguel Herbert MD Work Phone: [facility] [place] Comment on above: Medicare annual well ness visit, subsequent (Primary Dx); BPH without obstruction/lower urinary tract symptoms; NSAID long-term use; Living will on file; Advance directive discussed with patient Start: 01-18-2022 Telephone encounter Jose Miguel Herbert MD Work Phone: [facility] [place] Comment on above: Lab Orders Procedures Date Procedure Procedure Detail Performing Clinician Start: 01-30-2025 Lipid 1995 panel - S amirah or Plasma Jose Kosta DO Work Phone: Start: 01-14-2025 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 Jose Miguel Herbert MD Work Phone: Start: 12-10-2024 Echocardiography JOSE M ASCI Start: 08-06-2024 PFIZER-BIONTECH COVI D-19 VACCINE AGE 12+ YR (COMIRNATY) Jose Miguel Herbert MD Work Phone: Start: 08-01-2024 Lipid 1996 panel - S amirah or Plasma Jose Miguel eHrbert MD Work Phone: Start: 05-14-2024 PSA screening [facility] Start: 12-15-2023 Urine culture Start: 12-15-2023 Plain chest X-ray Start: 12-08-2023 PFIZER-BIONTECH COVI D-19 VACCINE () AGE 12+ YR Jose Miguel Herbert MD Work Phone: Start: 12-05-2023 Lipid 1995 panel - S amirah or Plasma Gumaro Pérez DO Work Phone: Start: 06-19-2023 Lipid 1996 panel - S amirah or Plasma Chester Kwan MD Work Phone: Start: 04-19-2023 Cardiovascular stres s test using pharmacologic stress agent Dr. Jose Miguel Herbert Work Phone: Start: 04-18-2023 Ct abdomen & pelvis w/o contrast material Jose Hugo DO Work Phone: Start: 04-06-2023 Radiologic examinati on osseous survey compl Jose Hugo DO Work Phone: Start: 04-05-[address] Jose Miguel Herbert Work Phone: Start: 04-03-2023 Ct thorax w/o contra st material Jose Miguel Herbert MD Work Phone: Start: 04-03-2023 Brncdilat rspse spmt ry pre&post-brncdilat admn Jose Miguel Herbert MD Work Phone: Start: 03-30-2023 Us abdominal real ti me w/image documentation Jose Miguel Herbert MD Work Phone: Start: 03-17-[address] Anibal Herbert Work Phone: Start: 03-17-2023 Plain chest X-ray Start: 03-16-2023 Lipid 1996 panel - S amirah or Plasma Jose Hugo DO Work Phone: Start: 01-27-2022 Adult depression scr eening assessment Jose Miguel Herbert MD Work Phone: Start: 07-04-2019 Adult depression scr eening assessment Jose Miguel Herbert MD Work Phone: Start: 06-07-2018 Colonoscopy Jose Miguel angulo MD Work Phone: Plan of Treatment Date Care Activity Detail Author Start: 02-28-2033 Urine microalbumin profile [facility] Start: 01-30-2030 Lipid panel Lipid Screening [facility] Start: 08-01-2029 Lipid panel Lipid Screening [facility] Start: 12-04-2028 Lipid panel Lipid Screening [facility] Start: 06-19-2028 Lipid 1996 panel - Serum or Plasma Lipid Screening [facility] Start: 06-19-2028 Lipid panel Lipid Screening [facility] Start: 06-07-2028 Colonoscopy COLONOSCOPY [facility] Start: 06-07-2028 COLORECTAL CANCER SCREENING COLORECTAL CANCER SCREENING [facility] Start: 06-07-2028 Screening for malignant neoplasm of colon [facility] Start: 03-18-2028 Diabetes Screening Diabetes Screening [facility] Start: 03-16-2028 Lipid 1996 panel - Serum or Plasma Lipid Screening [facility] Start: 03-16-2028 LIPID SCREEN LIPID SCREEN [facility] Start: 02-19-2028 Diabetes Screening Diabetes Screening [facility] Start: 01-24-2028 Diabetes Screening Diabetes Screening [facility] Start: 12-25-2027 Diabetes Screening Diabetes Screening [facility] Start: 11-27-2027 Diabetes Screening Diabetes Screening [facility] Start: 09-03-2027 Diabetes Screening Diabetes Screening [facility] Start: 08-08-2027 Diabetes Screening Diabetes Screening [facility] Start: 08-01-2027 Diabetes Screening Diabetes Screening [facility] Start: 07-18-2027 Diabetes Screening Diabetes Screening [facility] Start: 06-13-2027 Diabetes Screening Diabetes Screening [facility] Start: 05-16-2027 Diabetes Screening Diabetes Screening [facility] Start: 04-18-2027 Diabetes Screening Diabetes Screening [facility] Start: 03-26-2027 Diabetes Screening Diabetes Screening [facility] Start: 03-19-2027 Diabetes Screening Diabetes Screening [facility] Start: 02-26-2027 Diabetes Screening Diabetes Screening [facility] Start: 01-29-2027 Diabetes Screening Diabetes Screening [facility] Start: 01-20-2027 LIPID SCREEN LIPID SCREEN [facility] Start: 12-17-2026 Diabetes Screening Diabetes Screening [facility] Start: 12-11-2026 Diabetes Screening Diabetes Screening [facility] Start: 12-04-2026 Diabetes Screening Diabetes Screening [facility] Start: 11-26-2026 Diabetes Screening Diabetes Screening [facility] Start: 11-20-2026 Diabetes Screening Diabetes Screening [facility] Start: 11-14-2026 Diabetes Screening Diabetes Screening [facility] Start: 11-07-2026 Diabetes Screening Diabetes Screening [facility] Start: 10-27-2026 Diabetes Screening Diabetes Screening [facility] Start: 10-02-2026 Diabetes Screening Diabetes Screening [facility] Start: 08-26-2026 Diabetes Screening Diabetes Screening [facility] Start: 08-25-2026 Diabetes Screening Diabetes Screening [facility] Start: 08-24-2026 Diabetes Screening Diabetes Screening [facility] Start: 08-23-2026 Diabetes Screening Diabetes Screening [facility] Start: 08-15-2026 Diabetes Screening Diabetes Screening [facility] Start: 07-18-2026 Diabetes Screening Diabetes Screening [facility] Start: 06-19-2026 Diabetes Screening Diabetes Screening [facility] Start: 05-31-2026 Diabetes Screening Diabetes Screening [facility] Start: 05-23-2026 DIABETES SCREEN DIABETES SCREEN [facility] Start: 05-23-2026 Diabetes Screening Diabetes Screening [facility] Start: 05-02-2026 DIABETES SCREEN DIABETES SCREEN [facility] Start: 04-26-2026 DIABETES SCREEN DIABETES SCREEN [facility] Start: 04-06-2026 DIABETES SCREEN DIABETES SCREEN [facility] Start: 03-27-2026 DIABETES SCREEN DIABETES SCREEN [facility] Start: 03-18-2026 Complete blood count Hemoglobin/Hematocrit [facility] Start: 03-18-2026 Creatinine measurement Serum Creatinine [facility] Start: 03-16-2026 DIABETES SCREEN DIABETES SCREEN [facility] Start: 02-18-2026 Complete blood count Hemoglobin/Hematocrit [facility] Start: 02-18-2026 Creatinine measurement Serum Creatinine [facility] Start: 02-04-2026 Annual PCP Team Chronic Disease Visit Annual PCP Team Chronic Disease Visit [facility] Start: 01-23-2026 Complete blood count Hemoglobin/Hematocrit [facility] Start: 12-24-2025 Complete blood count Hemoglobin/Hematocrit [facility] Start: 12-24-2025 Creatinine measurement Serum Creatinine [facility] Start: 11-26-2025 Complete blood count Hemoglobin/Hematocrit [facility] Start: 11-26-2025 Creatinine measurement Serum Creatinine [facility] Start: 09-03-2025 Complete blood count Hemoglobin/Hematocrit [facility] Start: 09-03-2025 Creatinine measurement Serum Creatinine [facility] Start: 08-12-2025 End: 08-12-2025 Patient encounter procedure 08/12/2025 2:00 PM EST Office Visit [facility] Celest[facility] Mayo [address] [facility] [place] [address] Jose Miguel Herbert MD [address] [place] [id number] Medicare Wellness [facility]est[facility] Mayo Comment on above: Medicare Wellness Start: 08-08-2025 Complete blood count Hemoglobin/Hematocrit [facility] Start: 08-08-2025 Creatinine measurement Serum Creatinine [facility] Start: 08-06-2025 Annual PCP Team Chronic Disease Visit Annual PCP Team Chronic Disease Visit [facility] Start: 08-06-2025 Anxiety Screening Anxiety Screening [facility] Start: 08-06-2025 Medicare Annual Wellness Visit Medicare Annual Wellness Visit [facility] Start: 08-06-2025 RSV Vaccine (1 - Risk 60-74 years 1-dose series) RSV Vaccine (1 - Risk 60-74 years 1-dose series) [facility] Comment on above: Postponed from 2012 (Insurance Cov erage) Start: 07-29-2025 End: 07-29-2025 Patient encounter procedure 07/29/2025 2:30 PM EST Office Visit Cardiology [address] [id number] Chester Patel MD [address] [address] [place], [place] [id number] DX: Chronic diastolic HF (heart failure) Cardiology Comment on above: DX: Chronic diastolic HF (heart failure) Start: 07-29-2025 End: 07-29-2025 ambulatory 07/29/2025 1:45 PM EST Procedure Cardiology [address] [id number] DX: Chronic diastolic HF (heart failure) Cardiology Comment on above: DX: Chronic diastolic HF (heart failure) Start: 07-24-2025 End: 10-23-2025 Comprehensive metabolic 2000 panel - Serum or Plasma COMPREHENSIVE METABOLIC PANEL Lab Routine Cardiac amyloidosis (HCC) Chronic diastolic congestive heart failure (HCC) Expected: 07/24/2025, Expires: 10/23/2025 [facility] Work Phone: Comment on above: Expected: 07/24/2025, Expires: Start: 07-24-2025 End: 10-23-2025 Natriuretic peptide.B prohormone N-Terminal [Mass/volume] in Serum or Plasma NT PRO BNP Lab Routine Cardiac amyloidosis (HCC) Chronic diastolic congestive heart failure (HCC) Expected: 07/24/2025, Expires: 10/23/2025 [facility] Comment on above: Expected: 07/24/2025, Expires: Start: 07-18-2025 Complete blood count Hemoglobin/Hematocrit [facility] Start: 07-18-2025 Creatinine measurement Serum Creatinine [facility] Start: 07-02-2025 LIPID SCREEN LIPID SCREEN [facility] Start: 06-13-2025 Complete blood count Hemoglobin/Hematocrit [facility] Start: 06-13-2025 Creatinine measurement Serum Creatinine [facility] Start: 05-20-2025 End: 05-20-2025 ambulatory [place] Vogt [facility] Laboratory Comment on above: CBC/CMP/MM labs (no urine) 3MO/EARLY LABS* Start: 05-19-2025 Influenza vaccination Influenza Vaccine (#1) [facility] Start: 05-16-2025 Complete blood count Hemoglobin/Hematocrit [facility] Start: 05-16-2025 Creatinine measurement Serum Creatinine [facility] Start: 05-15-2025 End: 05-15-2025 Specialty Pharmacy 05/15/2025 9:00 AM EDT Specialty Pharmacy [facility] [id number] [place] [address] Pharmacist, [facility] 1 [facility] [employer] [place] [address] Refill - Brukinsa [30DS] Prefers delivery on non-dialysis days (Mon,Wed,Fri) [facility] Comment on above: Refill - Brukinsa [30DS] Prefers deliver y on non-dialysis days (Mon,Wed,Mon) Start: 05-13-2025 End: 05-13-2025 ambulatory 05/13/2025 10:00 AM EDT Results Only [place] Vogt [facility] Laboratory [address] [place] [address] CBC/CMP/MM labs (no urine) [place] Vogt [facility] Laboratory Comment on above: CBC/CMP/MM labs (no urine) Start: 04-22-2025 End: 04-22-2025 ambulatory 04/22/2025 10:00 AM EDT Results Only [place] Vogt [facility] Laboratory [address] [place] [address] Monthly CBC [place] Vogt [facility] Comment on above: Monthly CBC Start: 04-18-2025 Complete blood count Hemoglobin/Hematocrit [facility] Start: 04-18-2025 Creatinine measurement Serum Creatinine [facility] Start: 04-15-2025 End: 04-15-2025 Specialty Pharmacy 04/15/2025 9:00 AM EDT Specialty Pharmacy [facility] [address] [place] [id number] Pharmacist, [facility] [address] [place] [address] [place] [address] Refill - Brukinsa [30DS] Prefers delivery on non-dialysis days (Mon,Wed,Fri) [facility] Comment on above: Refill - Brukinsa [30DS] Prefers deliver y on non-dialysis days (Mon,Wed,Fri) Start: 04-01-2025 Covid-19 Vaccine () Covid-19 Vaccine () [facility] Start: 03-26-2025 Complete blood count Hemoglobin/Hematocrit [facility] Start: 03-26-2025 Creatinine measurement Serum Creatinine [facility] Start: 03-25-2025 End: 03-25-2025 ambulatory 03/25/2025 10:00 AM EDT Results Only Maria Esther [facility] [address] [facility] [place] [address] Monthly CBC [facility] Comment on above: Monthly CBC Start: 03-19-2025 Complete blood count Hemoglobin/Hematocrit [facility] Start: 03-19-2025 Creatinine measurement Serum Creatinine [facility] Start: 03-18-2025 End: 03-18-2025 Specialty Pharmacy 03/18/2025 7:45 AM EDT Specialty Pharmacy [facility] [address] [place] [address] Pharmacist, [facility] [address] [place] [address] [place] [address] Refill - Brukinsa [30DS] Prefers delivery on non-dialysis days (Mon,Wed,Fri) [facility] [place] 03/14 [facility] Comment on above: Refill - Brukinsa [30DS] Prefers deliver y on non-dialysis days (Mon,Mon,Fri) lv 03/14 Start: 03-14-2025 End: 03-14-2025 Specialty Pharmacy 03/14/2025 7:00 AM EDT Specialty Pharmacy [facility] AC4[address] [place] [address] Pharmacist, [facility] [address] [place] [address] [phone] Refill - Brukinsa [30DS] Prefers delivery on non-dialysis days (Mon,Wed,Fri) [facility] Comment on above: Refill - Brukinsa [30DS] Prefers deliver y on non-dialysis days (Mon,Mon,Fri) Start: 02-26-2025 Complete blood count Hemoglobin/Hematocrit [facility] Start: 02-26-2025 Creatinine measurement Serum Creatinine [facility] Start: 02-25-2025 End: 02-25-2025 ambulatory 02/25/2025 10:10 AM EDT Visit (SP) Office Hematology/Oncology [address] [place] [address] Jose Hugo DO [address] [place] [address] 3MO OV/LABS 02/18* Hematology/Oncolog y Comment on above: 3MO OV/LABS 02/18* Start: 02-18-2025 End: 02-18-2025 ambulatory [facility] Comment on above: QMO CBC/MM LABS (no urine) (SO)QMO CBC/CMP(S)/M M LABS(NO URINE)* (SO)QMO CBC/CMP(S)/M M LABS(NO URINE)/BNP* Start: 02-04-2025 End: 02-04-2025 Patient encounter procedure 02/04/2025 1:40 PM EDT Office Visit Family Medicine Maria Esther [address] [place], [place] [id number] Sheree Fabian PA-C [address] [facility] [place] [address] 6 month follow up Family Medicine Maria Esther Comment on above: 6 month follow up Start: 02-03-2025 Covid-19 Vaccine ( season) Covid-19 Vaccine ( season) [facility] Start: 01-29-2025 Complete blood count Hemoglobin/Hematocrit [facility] Start: 01-29-2025 Creatinine measurement Serum Creatinine [facility] Start: 01-29-2025 End: 01-29-2025 Specialty Pharmacy 01/29/2025 7:45 AM EDT Specialty Pharmacy [facility] [address] [place] [phone] Pharmacist, [facility] [address] [place] [address] [place] [address] Refill - Brukinsa [30DS] Prefers delivery on non-dialysis days (, , Sat) [facility] Comment on above: Refill - Brukinsa [30DS] Prefers deliver y on non-dialysis days (, Th, Sat) Start: 01-27-2025 End: 01-27-2025 Specialty Pharmacy 01/27/2025 7:00 AM EDT Specialty Pharmacy [facility] [address] [place] [address] Pharmacist, [facility] [address] [place] [address] [place] [address] Refill - Brukinsa [30DS] Prefers delivery on non-dialysis days (, Th, Sat) [facility] Comment on above: Refill - Brukinsa [30DS] Prefers deliver y on non-dialysis days (, , Sat) Start: 01-23-2025 End: 01-23-2025 ambulatory 01/23/2025 10:00 AM EDT Results Only Maria Esther Sin [facility] Laboratory [address] [place] [address] (SO)QMO CBC/MM LABS(NO URINE)* [facility] Comment on above: (SO)QMO CBC/MM LABS(NO URINE)* Start: 01-21-2025 End: 01-21-2025 Patient encounter procedure 01/21/2025 3:00 PM EDT Office Visit Cardiology [address] [place] [address] Chester Patel MD [address] [facility] Desk [address] [place] [address] OV cardiac amyloidosis Cardiology Comment on above: OV cardiac amyloidosis Start: 01-21-2025 End: 01-21-2025 ambulatory 01/21/2025 10:00 AM EDT Results Only [facility] [address] [place], [place] [address] QMO CBC/MM LABS (no urine) [facility] Comment on above: QMO CBC/MM LABS (no urine) Start: 01-20-2025 DIABETES SCREEN DIABETES SCREEN [facility] Start: 01-17-2025 End: 04-18-2025 Hemoglobin A1c in Blood HEMOGLOBIN A1C Lab Routine Elevated hemoglobin A1c Expected: 01/17/2025, Expires: 04/18/2025 [facility] Work Phone: Comment on above: Expected: 01/17/2025, Expires: Start: 01-17-2025 End: 04-18-2025 Lipid 1996 panel - Serum or Plasma LIPID PANEL BASIC Lab Routine Hyperlipidemia, mixed Expected: 01/17/2025, Expires: 04/18/2025 [facility] Comment on above: Expected: 01/17/2025, Expires: Start: 01-17-2025 End: 04-18-2025 Thyrotropin [Units/volume] in Serum or Plasma THYROID STIMULATING HORMONE Lab Routine Abnormal thyroid blood test Prediabetes Expected: 01/17/2025, Expires: 04/18/2025 [facility] Comment on above: Expected: 01/17/2025, Expires: Start: 01-14-2025 Patient discharge [facility] Start: 01-14-2025 Anesthesia vascular shunt/shunt revision ANESTH VASCULAR SHUNT SURG [facility] Start: 01-14-2025 Crtj arven fstl xcp dir arvstan anast nonautog grf ARTERY-VEIN NONAUTOGRAFT [facility] Start: 12-27-2024 End: 12-27-2024 Specialty Pharmacy 12/27/2024 7:45 AM EDT Specialty Pharmacy [facility] [address] [place], [place] [phone] Pharmacist, [facility] [address] [place] [address] [place] [address] Refill - Brukinsa [30DS] Prefers delivery on non-dialysis days (, , Sat) [place] 12/25 [facility] Comment on above: Refill - Brukinsa [30DS] Prefers deliver y on non-dialysis days (, , Sat) [place] 12/25 Start: 12-25-2024 End: 12-25-2024 Specialty Pharmacy 12/25/2024 10:00 AM EDT Specialty Pharmacy [facility] [address] [place] [phone] Pharmacist, [facility] [address] [place] [address] [place] [address] Refill - Brukinsa [30DS] Prefers delivery on non-dialysis days (, , Mon) [facility] Comment on above: Refill - Brukinsa [30DS] Prefers deliver y on non-dialysis days (, , Sat) Start: 12-24-2024 End: 12-24-2024 ambulatory 12/24/2024 10:00 AM EDT Results Only Maria Esther [place] [facility] Laboratory [address] [place] [address] QMO CBC/MM LABS (no urine) [facility] Comment on above: QMO CBC/MM LABS (no urine) Start: 12-17-2024 Complete blood count Hemoglobin/Hematocrit [facility] Start: 12-17-2024 Creatinine measurement Serum Creatinine [facility] Start: 12-11-2024 Complete blood count Hemoglobin/Hematocrit [facility] Start: 12-11-2024 Creatinine measurement Serum Creatinine [facility] Start: 12-10-2024 End: 12-10-2024 Patient encounter procedure 12/10/2024 2:40 PM EDT Office Visit Cardiology [address] [place], [place] [address]tan[place] [address] 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, 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] Cardiology Comment on above: 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, I43] Start: 12-04-2024 Complete blood count Hemoglobin/Hematocrit [facility] Start: 12-04-2024 Creatinine measurement Serum Creatinine [facility] Start: 12-03-2024 End: 12-03-2024 ambulatory Maria Esther [place] [facility] Laboratory Comment on above: CBC/CMP(S)/MYELOMA LABS - NO URINE* OV/LABS EARLY* T/TH APPTS OV/LABS 11/26* T/TH A PPTS Start: 11-28-2024 Annual PCP Team Chronic Disease Visit Annual PCP Team Chronic Disease Visit [facility] Start: 11-26-2024 Complete blood count Hemoglobin/Hematocrit [facility] Start: 11-26-2024 Creatinine measurement Serum Creatinine [facility] Start: 11-26-2024 End: 11-26-2024 Specialty Pharmacy 11/26/2024 7:15 AM EDT Specialty Pharmacy [facility] [address] [place], [place] [id number][id number] [place] [address] Pharmacist, [facility] [address] [place] [phone] Refill - Brukinsa [30DS] Preferrs delivery on non-dialysis days (, , Sat) [facility] Comment on above: Refill - Brukinsa [30DS] Preferrs delive ry on non-dialysis days (, , Sat) Start: 11-20-2024 Complete blood count Hemoglobin/Hematocrit [facility] Start: 11-20-2024 Creatinine measurement Serum Creatinine [facility] Start: 11-14-2024 Complete blood count Hemoglobin/Hematocrit [facility] Start: 11-14-2024 Creatinine measurement Serum Creatinine [facility] Start: 11-07-2024 Complete blood count Hemoglobin/Hematocrit [facility] Start: 11-07-2024 Creatinine measurement Serum Creatinine [facility] Start: 10-31-2024 End: 10-31-2024 Specialty Pharmacy 10/31/2024 7:30 AM EST Specialty Pharmacy [facility] [address] [place] [address] Pharmacist, [facility] [address] [place] [address] [place] [address] Refill - Brukinsa [30DS] Preferrs delivery on non-dialysis days (, , Mon) rfl req'd 10/28 [facility] Comment on above: Refill - Brukinsa [30DS] Preferrs delive ry on non-dialysis days (, , Sat) rfl req'd 10/28 Start: 10-28-2024 End: 10-28-2024 Specialty Pharmacy 10/28/2024 7:00 AM EST Specialty Pharmacy [facility] [address] [place], [place] [id number] [place] [address] Pharmacist, [facility] [address] [place] [address] [place] [address] Refill - Brukinsa [30DS] Preferrs delivery on non-dialysis days (, , Mon) [facility] Comment on above: Refill - Brukinsa [30DS] Preferrs delive ry on non-dialysis days (, , Mon) Start: 10-27-2024 Complete blood count Hemoglobin/Hematocrit [facility] Start: 10-27-2024 Creatinine measurement Serum Creatinine [facility] Start: 10-26-2024 Annual PCP Team Chronic Disease Visit Annual PCP Team Chronic Disease Visit [facility] Start: 10-17-2024 Complete blood count Hemoglobin/Hematocrit [facility] Start: 10-17-2024 Creatinine measurement Serum Creatinine [facility] Start: 10-10-2024 End: 01-09-2025 Comprehensive metabolic 2000 panel - Serum or Plasma COMPREHENSIVE METABOLIC PANEL Lab Routine AL amyloidosis (HCC) Chronic heart failure with preserved ejection fraction (HFpEF) (HCC) Expected: 10/10/2024, Expires: 01/09/2025 [facility] Work Phone: Comment on above: Expected: 10/10/2024, Expires: Start: 10-10-2024 End: 01-09-2025 Natriuretic peptide.B prohormone N-Terminal [Mass/volume] in Serum or Plasma NT PRO BNP Lab Routine AL amyloidosis (HCC) Chronic heart failure with preserved ejection fraction (HFpEF) (HCC) Expected: 10/10/2024, Expires: 01/09/2025 [facility] Comment on above: Expected: 10/10/2024, Expires: Start: 10-10-2024 End: 10-10-2024 Patient encounter procedure 10/10/2024 1:40 PM EST Office Visit Cardiology [address] [place] [address] [phone] Yessica Hansen MD [address] [place] [address] [phone] Cardiomyopathy, unspecified type (HCC) [I42.9] Cardiology Comment on above: Cardiomyopathy, unspecified type (HCC) [ I42.9] Start: 10-01-2024 Covid-19 Vaccine ( season) Covid-19 Vaccine ( season) [facility] Start: 09-26-2024 End: 09-26-2024 Specialty Pharmacy 09/26/2024 10:00 AM EST Specialty Pharmacy [facility] [address] [place], [place] 191214-[id number] [place] [address] Pharmacist, [facility] [address] [place] [address] Refill - Brukinsa [30DS] Preferrs delivery on non-dialysis days (, , Sat) [facility] Comment on above: Refill - Brukinsa [30DS] Preferrs delive ry on non-dialysis days (, , Sat) Start: 09-18-2024 Advance Directive Discussion Advance Directive Discussion [facility] Start: 09-03-2024 End: 09-03-2024 ambulatory Hematology/Oncolog y Comment on above: OV/LABS EARLY/ON BRUKINSA* T/ APPTS CBC/CMP(S)/MYELOMA L ABS - NO URINE* Start: 09-01-2024 Complete blood count Hemoglobin/Hematocrit [facility] Start: 09-01-2024 Creatinine measurement Serum Creatinine [facility] Start: 08-28-2024 End: 08-28-2024 Specialty Pharmacy 08/28/2024 7:30 AM EST Specialty Pharmacy [facility] [address] [place], [place] [phone] Pharmacist, [facility] [address] [place] [address] [place] [address] Refill - Brukinsa [30DS] Preferrs delivery on non-dialysis days (, , Sat) [place] 08/26 [facility] Comment on above: Refill - Brukinsa [30DS] Preferrs delive ry on non-dialysis days (, , Sat) [place] 08/26 Start: 08-26-2024 End: 08-26-2024 Specialty Pharmacy 08/26/2024 7:00 AM EST Specialty Pharmacy [facility] [address] [place] [address] Pharmacist, [facility] [address] [place] [address] [place] [address] Refill - Brukinsa [30DS] Preferrs delivery on non-dialysis days (, , Sat) [facility] Comment on above: Refill - Brukinsa [30DS] Preferrs delive ry on non-dialysis days (, , Sat) Start: 08-25-2024 Hemoglobin/Hematocrit Hemoglobin/Hematocrit [facility] Start: 08-25-2024 Serum Creatinine Serum Creatinine [facility] Start: 08-24-2024 Hemoglobin/Hematocrit Hemoglobin/Hematocrit [facility] Start: 08-24-2024 Serum Creatinine Serum Creatinine [facility] Start: 08-23-2024 Hemoglobin/Hematocrit Hemoglobin/Hematocrit [facility] Start: 08-23-2024 Serum Creatinine Serum Creatinine [facility] Start: 08-15-2024 Hemoglobin/Hematocrit Hemoglobin/Hematocrit [facility] Start: 08-15-2024 Serum Creatinine Serum Creatinine [facility] Start: 08-08-2024 Hemoglobin/Hematocrit Hemoglobin/Hematocrit [facility] Start: 08-08-2024 End: 08-08-2024 ambulatory 08/08/2024 10:00 AM EST Results Only Maria Esther [place] [facility] Laboratory [address] [place] [address] CBC/MYELOMA LABS - NO URINE* [facility] Laboratory Comment on above: CBC/MYELOMA LABS - NO URINE* Start: 08-06-2024 End: 08-06-2024 Patient encounter procedure 08/06/2024 9:00 AM EST Office Visit Family Medicine Maria Esther [address] [place] [address] Jose Miguel Herbert MD [address] [place] [address] Medicare wellness Family Medicine [facility] Comment on above: Medicare wellness Start: 08-02-2024 Hemoglobin/Hematocrit Hemoglobin/Hematocrit [facility] Start: 07-31-2024 End: 10-30-2024 Hemoglobin A1c in Blood HEMOGLOBIN A1C Lab Routine Elevated hemoglobin A1c Expected: 07/31/2024, Expires: 10/30/2024 [facility] Comment on above: Expected: 07/31/2024, Expires: Start: 07-31-2024 End: 10-30-2024 LIPID PANEL, NONFASTING LIPID PANEL, NONFASTING Lab Routine Chronic diastolic congestive heart failure (HCC) Hyperlipidemia, mixed Expected: 07/31/2024, Expires: 10/30/2024 [facility] Work Phone: Comment on above: Expected: 07/31/2024, Expires: Start: 07-26-2024 Hemoglobin/Hematocrit Hemoglobin/Hematocrit [facility] Start: 07-25-2024 End: 07-25-2024 Specialty Pharmacy 07/25/2024 9:00 AM EST Specialty Pharmacy [facility] [address] [place], [place] [phone] Pharmacist, Specialty[facility] 1 [facility] [place] [address] Refill - Brukinsa [30DS] Preferrs delivery on non-dialysis days (, Mon) [facility] Comment on above: Refill - Brukinsa [30DS] Preferrs delive ry on non-dialysis days (, Mon) Start: 07-18-2024 Hemoglobin/Hematocrit Hemoglobin/Hematocrit [facility] Start: 07-18-2024 Serum Creatinine Serum Creatinine [facility] Start: 07-18-2024 End: 07-18-2024 ambulatory 07/18/2024 10:00 AM EDT Results Only [facility] [place] [facility] Laboratory [address] [place] [address] CBC/MYELOMA LABS - NO URINE* [facility] Comment on above: CBC/MYELOMA LABS - NO URINE* Start: 07-11-2024 End: 07-11-2024 ambulatory 07/11/2024 10:00 AM EDT Results Only [facility] [place] [facility] Laboratory [address] [place] [address] CBC/MYELOMA LABS - NO URINE* [facility] [place] [facility] Laboratory Comment on above: CBC/MYELOMA LABS - NO URINE* Start: 06-28-2024 Hemoglobin/Hematocrit Hemoglobin/Hematocrit [facility] Start: 06-21-2024 End: 06-21-2024 Specialty Pharmacy 06/21/2024 11:00 AM EDT Specialty Pharmacy [facility] [address] [place] [address] Drive [address] [place] [address] Pharmacist, [facility]ty[facility] 1 [address] [facility] [place] [address] Refill - Brukinsa [30DS] Preferrs delivery on non-dialysis days (, Mon) [facility] Comment on above: Refill - Brukinsa [30DS] Preferrs delive ry on non-dialysis days (, Mon) Start: 06-20-2024 End: 06-20-2024 ambulatory 06/20/2024 2:30 PM EDT Infusion Center Hematology/Oncology [address] [place] [address] D3 BENDAMUSTINE/ONPRO/MDCR* - T/TH APPTS Hematology/Oncolog y Comment on above: D3 BENDAMUSTINE/ONPRO/MDCR* - T/TH APPTS Start: 06-19-2024 Hemoglobin/Hematocrit Hemoglobin/Hematocrit [facility] Start: 06-19-2024 Serum Creatinine Serum Creatinine [facility] Start: 06-18-2024 End: 06-18-2024 ambulatory 06/18/2024 11:00 AM EDT Infusion Center Hematology/Oncology [address] [place] [address] QMO BENDAMUSTINE/RITUXAN SQ/LAB&OV 06/13/MDCR* - T/TH APPTS Hematology/Oncolog y Comment on above: QMO BENDAMUSTINE/RITUXAN SQ/LAB&OV 06/13/ MDCR* - T/TH APPTS Start: 06-13-2024 End: 06-13-2024 ambulatory [facility] Comment on above: CBC/CMP(S)/MYELOMA LABS - NO URINE* T/TH APPTS OV/LABS EARLY/CHEMO 910/1* T/TH APPTS OV/LABS EARLY/ON BRU KINSA* T/TH APPTS Start: 06-07-2024 Hemoglobin/Hematocrit Hemoglobin/Hematocrit [facility] Start: 06-05-2024 End: 06-05-2024 Patient encounter procedure 06/05/2024 1:00 PM EDT Office Visit Family [facility] [address] [place] [address] Jose Miguel Herbert MD [address] [place] [address] Medicare wellness Family [facility] Comment on above: Medicare wellness Start: 05-31-2024 Hemoglobin/Hematocrit Hemoglobin/Hematocrit [facility] Start: 05-31-2024 Serum Creatinine Serum Creatinine [facility] Start: 05-30-2024 End: 05-30-2024 ambulatory 05/30/2024 11:00 AM EDT Results Only Maria Esther [place] [facility] [address] [place] [address] CBC* Maria Esther [place] [facility] Laboratory Comment on above: CBC* Start: 05-27-2024 ANNUAL PCP TEAM CHRONIC DISEASE VISIT ANNUAL PCP TEAM CHRONIC DISEASE VISIT [facility] Start: 05-23-2024 HEMOGLOBIN/HEMATOCRIT HEMOGLOBIN/HEMATOCRIT [facility] Start: 05-23-2024 SERUM CREATININE SERUM CREATININE [facility] Start: 05-23-2024 End: 05-23-2024 ambulatory Hematology/Oncolog y Comment on above: D3 BENDAMUSTINE/ONPRO/MDCR* - T/TH APPTS Start: 05-21-2024 End: 05-21-2024 ambulatory Hematology/Oncolog y Comment on above: QMO BENDAMUSTINE/RITUXAN SQ/LAB&OV 05/16/ MDCR* - T/TH APPTS Refill - Brukinsa [3 0DS] Preferrs delivery on non-dialysis days (, Mon) LV 05/13 (still working on re-enrolling naeem, but copay is $0). 05/14 pt has 2wks qoh, f/u in 1wk. Start: 05-19-2024 Covid-19 Vaccine ( season) Covid-19 Vaccine ( season) [facility] Start: 05-19-2024 Influenza vaccination Influ[facility] Vacc[facility] Start: 05-17-2024 End: 05-17-2024 Specialty Pharmacy 05/17/2024 9:15 AM EDT Specialty Pharmacy [facility] [address] [place] [address] [address] [place] [address] Pharmacist, [facility] [address] [place] [address] [place] [address] Refill - Brukinsa. 30DS. Preferrs delivery on non-dialysis days (, , Mon) [facility] Comment on above: Refill - Brukinsa. 30DS. Preferrs delive ry on non-dialysis days (, , Sat) Start: 05-16-2024 End: 05-16-2024 ambulatory Maria Esther [place] [facility] Laboratory Comment on above: CBC/CMP(S)/MYELOMA LABS - NO URINE* T/ APPTS OV/LABS EARLY/CHEMO 05/21* T/TH APPTS Start: 05-15-2024 End: 05-15-2024 Specialty Pharmacy 05/15/2024 9:00 AM EDT Specialty Pharmacy [facility] [address] [facility] [address] [place] [address] Pharmacist, [facility] [address] [place] [address] [place] [address] Refill - Brukinsa [30DS] Preferrs delivery on non-dialysis days (, , Sat) LV 05/13 (still working on re-enrolling naeem, but copay is $0) [facility] Comment on above: Refill - Brukinsa [30DS] Preferrs delive ry on non-dialysis days (, , Sat) LV 05/13 (still working on re-enrolling naeem, but copay is $0) Start: 04-25-2024 End: 04-25-2024 ambulatory 04/25/2024 11:00 AM EDT Infusion Center Hematology/Oncology [address] [place] [address] D3 BENDAMUSTINE/ONPRO/MDCR* - T/TH APPTS Hematology/Oncolog y Comment on above: D3 BENDAMUSTINE/ONPRO/MDCR* - T/TH APPTS Start: 04-23-2024 End: 04-23-2024 ambulatory 04/23/2024 1:30 PM EDT Infusion Center Hematology/Oncology [address] [place] [address] QMO BENDAMUSTINE/RITUXAN SQ/LAB&OV 04/18/MDCR* - T/TH APPTS Hematology/Oncolog y Comment on above: QMO BENDAMUSTINE/RITUXAN SQ/LAB&OV 8//M DCR* - T/TH APPTS Start: 04-18-2024 End: 07-18-2024 Ferritin [Mass/volume] in Serum or Plasma [facility] Comment on above: Expected: 04/18/2024, Expires: Start: 04-18-2024 End: 07-18-2024 Iron and Iron binding capacity panel - Serum or Plasma [facility] Work Phone: Comment on above: Expected: 04/18/2024, Expires: Start: 04-18-2024 End: 04-18-2024 ambulatory Maria Esther [place]og[place] [facility] Laboratory Comment on above: CBC/CMP(S)/MYELOMA LABS - NO URINE* OV/LABS EARLY/CHEMO 04/23* CBC/CMP(S)/MYELOMA L ABS - NO URINE* T/ APPTS OV/LABS EARLY/CHEMO 04/23* T/TH APPTS Start: 04-09-2024 End: 04-09-2024 Patient encounter procedure 04/09/2024 2:45 PM EDT Office Visit Cardiology [address] [id number] Chester Patel MD [address] [facility] Desk [address] [place] [address] Main, Nurse Card [facility] [address] [place] [address] DX: Acute on chronic heart failure with preserved ejection fraction Cardiology Comment on above: DX: Acute on chronic heart failure with preserved ejection fraction Start: 03-28-2024 End: 03-28-2024 ambulatory 03/28/2024 11:00 AM EDT Infusion Center Hematology/Oncology [address] [place] [address] D3 BENDAMUSTINE/ONPRO/MDCR* - T/TH APPTS Hematology/Oncolog y Comment on above: D3 BENDAMUSTINE/ONPRO/MDCR* - T/TH APPTS Start: 03-26-2024 End: 03-26-2024 ambulatory Hematology/Oncolog y Comment on above: QMO BENDAMUSTINE/RITUXAN SQ/LAB&OV 7/5/M DCR* - T/TH APPTS CBC/CMP(S)/MYELOMA L ABS - NO URINE* T/TH APPTS Start: 03-23-2024 ANNUAL PCP TEAM CHRONIC DISEASE VISIT ANNUAL PCP TEAM CHRONIC DISEASE VISIT [facility] Start: 03-22-2024 End: 03-22-2024 ambulatory [place] [facility] Comment on above: CBC/CMP(S)/MYELOMA LABS - NO URINE* HOLIDAY Start: 03-19-2024 End: 03-19-2024 ambulatory [facility] Comment on above: CBC/CMP(S)/MYELOMA LABS - NO URINE* T/TH APPTS HOL Start: 03-08-2024 End: 03-08-2024 Patient encounter procedure 03/08/2024 2:15 PM EDT Office Visit Cardiology [address] [place] [address] Chester Patel MD [address] [facility] [id number] [place] [address] Main, Nurse Card Chf [address] [place] [address] DX: Acute on chronic heart failure with preserved ejection fraction Cardiology Comment on above: DX: Acute on chronic heart failure with preserved ejection fraction Start: 02-29-2024 End: 02-29-2024 ambulatory 02/29/2024 11:00 AM EDT Infusion Center Hematology/Oncology [address] [place] [address] D3 BENDAMUSTINE/ONPRO/MDCR* - T/TH APPTS Hematology/Oncolog y Comment on above: D3 BENDAMUSTINE/ONPRO/MDCR* - T/TH APPTS Start: 02-27-2024 End: 02-27-2024 ambulatory 02/27/2024 1:30 PM EDT Infusion Center Hematology/Oncology [address] [place] [address] QMO BENDAMUSTINE/RITUXAN SQ/LAB&OV 6/7/MDCR* - T/TH APPTS Hematology/Oncolog y Comment on above: QMO BENDAMUSTINE/RITUXAN SQ/LAB&OV 6/7/M DCR* - T/TH APPTS Start: 02-23-2024 End: 02-23-2024 ambulatory Hematology/Oncolog y Comment on above: D3 NEULASTA/MDCR* CBC/CMP(S)/MYELOMA L ABS - NO URINE* OV/LABS EARLY/CHEMO 02/26* Start: 02-22-2024 End: 02-22-2024 ambulatory 02/22/2024 1:30 PM EDT Infusion Center Hematology/Oncology [address] [place] [address] D2 BENDAMUSTINE/MDCR* Hematology/Oncolog y Comment on above: D2 BENDAMUSTINE/MDCR* Start: 02-21-2024 End: 02-21-2024 ambulatory 02/21/2024 1:30 PM EDT Infusion Center Hematology/Oncology [address] [place] [address] Q3WK BENDAMUSTINE/RITUXAN/LAB&OV 02/19/MDCR* Hematology/Oncolog y Comment on above: Q3WK BENDAMUSTINE/RITUXAN/LAB&OV 02/19/MDC R* Start: 02-20-2024 End: 02-20-2024 [facility] on above: CBC/CMP(S)/MYELOMA LABS - NO URINE* OV/LABS EARLY/CHEMO 02/20* Start: 02-02-2024 Covid-19 Vaccine () Covid-19 Vaccine () [facility] Start: 02-02-2024 End: 02-02-2024 ambulatory 02/02/2024 10:45 AM EDT Infusion Center Hematology/Oncology [address] [place] [address] Wstr, Injection Stef [facility] [address] [place] [address] D3 NEULASTA/MDCR* Hematology/Oncolog y Comment on above: D3 NEULASTA/MDCR* Start: 02-01-2024 End: 02-01-2024 ambulatory Hematology/Oncolog y Comment on above: D2 BENDAMUSTINE/MDCR* D3 BENDAMUSTINE/ONPR O/MDCR* - T/ APPTS Start: 01-31-2024 End: 01-31-2024 ambulatory 01/31/2024 1:30 PM EDT Infusion Center Hematology/Oncology [address] [place] [address] Q3WK BENDAMUSTINE/RITUXAN/LAB&OV 01/29/MDCR* Hematology/Oncolog y Comment on above: Q3WK BENDAMUSTINE/RITUXAN/LAB&OV 01/29/ CR* Start: 01-30-2024 End: 01-30-2024 ambulatory [facility] Laboratory Comment on above: CBC/CMP(S)/MYELOMA LABS - NO URINE* OV/LABS EARLY/CHEMO 01/30* Start: 01-12-2024 End: 01-12-2024 Patient encounter procedure 01/12/2024 2:00 PM EDT Office Visit Kidney Medicine [facility] [address] [place] [address] [place] [address] [place], [place] [id number] 1 Month Follow Up Kidney [facility] Comment on above: 1 Month Follow Up Start: 12-15-2023 [facility] Start: 12-15-2023 [facility] Start: 12-15-2023 Bacteria identified in Blood by Culture Blood Culture [facility] Start: 12-15-2023 Bacteria identified in Urine by Culture [facility] Start: 12-15-2023 Blood culture [facility] Start: 12-15-2023 [facility] Start: 12-07-2023 End: 03-07-2024 Chronic hepatitis differentiation between hepatitis B and C virus panel - Serum or Plasma [facility] Work Phone: Comment on above: Expected: 12/07/2023, Expires: Start: 12-05-2023 End: 03-05-2024 Hepatitis B virus surface Ab [Presence] in Serum HEP B SURF AB Lab Routine CKD (chronic kidney disease), stage V (HCC) Expected: 12/05/2023, Expires: 03/05/2024 [facility] Work Phone: Comment on above: Expected: 12/05/2023, Expires: 4 Start: 12-05-2023 End: 03-05-2024 Hepatitis B virus surface Ag [Presence] in Serum HEP B SURF AG SCRN Lab Routine CKD (chronic kidney disease), stage V (HCC) Expected: 12/05/2023, Expires: 03/05/2024 [facility] Work Phone: Comment on above: Expected: 12/05/2023, Expires: 4 Start: 11-29-2023 End: 02-28-2024 Hemoglobin A1c in Blood HGB A1C Lab Routine Elevated hemoglobin A1c Expected: 11/29/2023, Expires: 02/28/2024 [facility] Work Phone: Comment on above: Expected: 11/29/2023, Expires: 4 Start: 11-29-2023 End: 02-28-2024 LIPID PANEL, NONFASTING LIPID PANEL, NONFASTING Lab Routine Hyperlipidemia, mixed Expected: 11/29/2023, Expires: 02/28/2024 [facility] Work Phone: Comment on above: Expected: 11/29/2023, Expires: 4 Start: 10-23-2023 End: 01-22-2024 Protein/Creatinine [Mass Ratio] in Urine [facility] Work Phone: Comment on above: Expected: 10/23/2023, Expires: 4 Start: 10-04-2023 Covid-19 Vaccine () Covid-19 Vaccine () [facility] Start: 09-18-2023 Advance Directive Discussion Advance Directive Discussion [facility] Start: 09-18-2023 Depression Assessment Depression Assessment [facility] Start: 08-15-2023 End: 11-14-2023 Protein/Creatinine [Mass Ratio] in Urine PROTEIN CREATININE RATIO Lab Routine AL amyloidosis (HCC) Expected: 08/15/2023 (Approximate), Expires: 11/14/2023 [facility] Work Phone: Comment on above: Expected: 08/15/2023 (Approximate), Expi res: 11/14/2023 Start: 07-02-2023 DIABETES SCREEN DIABETES SCREEN [facility] Start: 06-18-2023 End: 08-18-2023 Hemoglobin A1c in Blood HGB A1C Lab Routine Elevated blood sugar Expected: 06/18/2023, Expires: 08/18/2023 [facility] Work Phone: Comment on above: Expected: 06/18/2023, Expires: 3 Start: 06-18-2023 End: 08-18-2023 LIPID PANEL, NONFASTING LIPID PANEL, NONFASTING Lab Routine Elevated LDL cholesterol level Expected: 06/18/2023, Expires: 08/18/2023 [facility] Work Phone: Comment on above: Expected: 06/18/2023, Expires: Start: 05-31-2023 End: 07-31-2023 Basic metabolic 2000 panel - Serum or Plasma BASIC METABOLIC PNL Lab STAT 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) SINDI (acute kidney injury) (HCC) 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) Expected: 05/31/2023, Expires: 07/31/2023 [facility] Work Phone: Comment on above: Expected: 05/31/2023, Expires: 3 Start: 05-31-2023 End: 07-31-2023 Thyrotropin [Units/volume] in Serum or Plasma [facility] Work Phone: Comment on above: Expected: 05/31/2023, Expires: 3 Start: 05-31-2023 End: 07-31-2023 Thyroxine (T4) free [Mass/volume] in Serum or Plasma [facility] Work Phone: Comment on above: Expected: 05/31/2023, Expires: 3 Start: 05-25-2023 End: 07-25-2023 CRYOGLOBULIN, QUAL, REFLEX TO KATHRYN AND IGG,A,M CRYOGLOBULIN, QUAL, REFLEX TO KATHRYN AND IGG,A,M Lab Routine 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) Expected: 05/25/2023, Expires: 07/25/2023 [facility] Work Phone: Comment on above: Expected: 05/25/2023, Expires: 3 Start: 05-19-2023 Covid-19 Vaccine () Covid-19 Vaccine () [facility] Start: 05-19-2023 Influenza vaccination [facility] Start: 05-05-2023 End: 07-05-2023 Thyrotropin [Units/volume] in Serum or Plasma TSH BLD Lab Routine Abnormal thyroid blood test Anemia, unspecified type Expected: 05/05/2023, Expires: 07/05/2023 [facility] Work Phone: Comment on above: Expected: 05/05/2023, Expires: 3 Start: 05-05-2023 End: 07-05-2023 Thyroxine (T4) free [Mass/volume] in Serum or Plasma T4 FREE/FREE THYROX Lab Routine Abnormal thyroid blood test Anemia, unspecified type Expected: 05/05/2023, Expires: 07/05/2023 [facility] Work Phone: Comment on above: Expected: 05/05/2023, Expires: 3 Start: 05-05-2023 End: 07-05-2023 Triiodothyronine (T3) Free [Mass/volume] in Serum or Plasma T3 FREE BLD Lab Routine Abnormal thyroid blood test Expected: 05/05/2023, Expires: 07/05/2023 [facility] Work Phone: Comment on above: Expected: 05/05/2023, Expires: 3 Start: 05-03-2023 SHINGRIX VACCINE (2 of 2) SHINGRIX VACCINE (2 of 2) [facility] Start: 04-27-2023 End: 06-27-2023 Comprehensive metabolic 2000 panel - Serum or Plasma COMP METABOLIC PANEL Lab Routine Acute on chronic heart failure with preserved ejection fraction (HFpEF) (HCC) Expected: 04/27/2023, Expires: 06/27/2023 [facility] Work Phone: Comment on above: Expected: 04/27/2023, Expires: 3 Start: 04-27-2023 End: 06-27-2023 Natriuretic peptide.B prohormone N-Terminal [Mass/volume] in Serum or Plasma NT PRO BNP Lab Routine Acute on chronic heart failure with preserved ejection fraction (HFpEF) (HCC) Expected: 04/27/2023, Expires: 06/27/2023 [facility] Work Phone: Comment on above: Expected: 04/27/2023, Expires: Start: 04-23-2023 End: 06-23-2023 HIGH SENSITIVITY TROPONIN T HIGH SENSITIVITY TROPONIN T Lab Routine Nonspecific ST-T wave electrocardiographic changes Light chain (AL) amyloidosis (HCC) Expected: 04/23/2023, Expires: 06/23/2023 [facility] Work Phone: Comment on above: Expected: 04/23/2023, Expires: 3 Start: 04-23-2023 End: 06-23-2023 Natriuretic peptide.B prohormone N-Terminal [Mass/volume] in Serum or Plasma NT PRO BNP Lab Routine Nonspecific ST-T wave electrocardiographic changes Light chain (AL) amyloidosis (HCC) Dyspnea, unspecified Expected: 04/23/2023, Expires: 06/23/2023 [facility] Work Phone: Comment on above: Expected: 04/23/2023, Expires: 3 Start: 04-06-2023 End: 06-06-2023 Chronic hepatitis differentiation between hepatitis B and C virus panel - Serum or Plasma HEP REMOTE PANEL BL Lab 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 Expected: 04/06/2023, Expires: 06/06/2023 [facility] Work Phone: Comment on above: Expected: 04/06/2023, Expires: 3 Start: 04-06-2023 End: 06-06-2023 COLD AGGLUTIININS COLD AGGLUTIININS Lab 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 Expected: 04/06/2023, Expires: 06/06/2023 [facility] Work Phone: Comment on above: Expected: 04/06/2023, Expires: 3 Start: 04-06-2023 End: 06-06-2023 CRYOGLOBULIN, QUAL, REFLEX TO KATHRYN AND IGG,A,M CRYOGLOBULIN, QUAL, REFLEX TO KATHRYN AND IGG,A,M Lab 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 Expected: 04/06/2023, Expires: 06/06/2023 [facility] Work Phone: Comment on above: Expected: 04/06/2023, Expires: Start: 04-06-2023 End: 06-06-2023 Direct antiglobulin test.poly specific reagent [Presence] on Red Blood Cells [facility] DIRECT Blood Bank 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 Expected: 04/06/2023, Expires: 06/06/2023 [facility] Work Phone: Comment on above: Expected: 04/06/2023, Expires: 3 Start: 04-06-2023 End: 06-06-2023 GANGLIOSIDE ANTIBODIES GANGLIOSIDE ANTIBODIES Lab 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 Expected: 04/06/2023, Expires: 06/06/2023 [facility] Work Phone: Comment on above: Expected: 04/06/2023, Expires: 3 Start: 04-06-2023 End: 06-06-2023 Haptoglobin [Mass/volume] in Serum or Plasma HAPTOGLOBIN BLD Lab 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 Expected: 04/06/2023, Expires: 06/06/2023 [facility] Work Phone: Comment on above: Expected: 04/06/2023, Expires: 3 Start: 04-06-2023 End: 06-06-2023 Lactate dehydrogenase [Enzymatic activity/volume] in Serum or Plasma LD LACTATE DEHYDRO Lab 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 Expected: 04/06/2023, Expires: 06/06/2023 [facility] Work Phone: Comment on above: Expected: 04/06/2023, Expires: 3 Start: 04-06-2023 End: 06-06-2023 MAG IGM & SGPG IGM MAG IGM & SGPG IGM Lab 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 Expected: 04/06/2023, Expires: 06/06/2023 [facility] Work Phone: Comment on above: Expected: 04/06/2023, Expires: 3 Start: 04-06-2023 End: 06-06-2023 RETIC COUNT RETIC COUNT Lab 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 Expected: 04/06/2023, Expires: 06/06/2023 [facility] Work Phone: Comment on above: Expected: 04/06/2023, Expires: 3 Start: 04-05-2023 End: 06-05-2023 [id number] [Mass/volume] in Serum or Plasma B2 MICROGLOBULIN B Lab Routine Monoclonal (M) protein disease, multiple 'M' protein Expected: 04/05/2023, Expires: 06/05/2023 [facility] Work Phone: Comment on above: Expected: 04/05/2023, Expires: 3 Start: 04-05-2023 End: 06-05-2023 CBC W Auto Differential panel - Blood CBC + DIFF Lab STAT Monoclonal (M) protein disease, multiple 'M' protein Expected: 04/05/2023, Expires: 06/05/2023 [facility] Work Phone: Comment on above: Expected: 04/05/2023, Expires: 3 Start: 04-05-2023 End: 06-05-2023 Comprehensive metabolic 2000 panel - Serum or Plasma COMP METABOLIC PANEL Lab STAT Monoclonal (M) protein disease, multiple 'M' protein Expected: 04/05/2023, Expires: 06/05/2023 [facility] Work Phone: Comment on above: Expected: 04/05/2023, Expires: 3 Start: 04-05-2023 End: 06-05-2023 MONOCLONAL PROTEIN, SERUM (BLOOD) MONOCLONAL PROTEIN, SERUM (BLOOD) Lab Routine Monoclonal (M) protein disease, multiple 'M' protein Expected: 04/05/2023, Expires: 06/05/2023 [facility] Work Phone: Comment on above: Expected: 04/05/2023, Expires: 3 Start: 04-05-2023 End: 06-05-2023 PROTEIN ELECTROPHORESIS SERUM W/INTERP PROTEIN ELECTROPHORESIS SERUM W/INTERP Lab Routine Monoclonal (M) protein disease, multiple 'M' protein Expected: 04/05/2023, Expires: 06/05/2023 [facility] Work Phone: Comment on above: Expected: 04/05/2023, Expires: 3 Start: 04-05-2023 End: 06-05-2023 SERUM VISCOSITY SERUM VISCOSITY Lab Routine Monoclonal (M) protein disease, multiple 'M' protein Expected: 04/05/2023, Expires: 06/05/2023 [facility] Work Phone: Comment on above: Expected: 04/05/2023, Expires: 3 Start: 04-04-2023 End: 06-04-2023 Folate [Mass/volume] in Serum or Plasma FOLATE SERUM Lab Routine Macrocytosis Expected: 04/04/2023, Expires: 06/04/2023 [facility] Work Phone: Comment on above: Expected: 04/04/2023, Expires: 3 Start: 03-23-2023 End: 05-23-2023 BRITTNEE BY IFA SCREEN BRITTNEE BY IFA SCREEN Lab Routine Generalized weakness Expected: 03/23/2023, Expires: 05/23/2023 [facility] Work Phone: Comment on above: Expected: 03/23/2023, Expires: 3 Start: 03-23-2023 End: 05-23-2023 Borrelia burgdorferi IgG and IgM panel - Serum LYME AB LATE >30 DAYS SYMPTOMS Lab Routine Unintended weight loss Fatigue, unspecified type SOB (shortness of breath) Expected: 03/23/2023, Expires: 05/23/2023 [facility] Work Phone: Comment on above: Expected: 03/23/2023, Expires: 3 Start: 03-23-2023 End: 05-23-2023 C reactive protein [Mass/volume] in Serum or Plasma C-REACTIVE PROTEIN (CRP) Lab Routine Generalized weakness Expected: 03/23/2023, Expires: 05/23/2023 [facility] Work Phone: Comment on above: Expected: 03/23/2023, Expires: Start: 03-23-2023 End: 05-23-2023 CBC W Auto Differential panel - Blood CBC + DIFF Lab Routine Unintended weight loss Fatigue, unspecified type SINDI (acute kidney injury) (HCC) Black hairy tongue Anemia, unspecified type Altered taste Expected: 03/23/2023, Expires: 05/23/2023 [facility] Work Phone: Comment on above: Expected: 03/23/2023, Expires: 3 Start: 03-23-2023 End: 05-23-2023 Cobalamin (Vitamin B12) [Mass/volume] in Serum or Plasma VITAMIN B12 BLOOD Lab Routine Fatigue, unspecified type Anemia, unspecified type Altered taste Lack of appetite Expected: 03/23/2023, Expires: 05/23/2023 [facility] Work Phone: Comment on above: Expected: 03/23/2023, Expires: 3 Start: 03-23-2023 End: 05-23-2023 Comprehensive metabolic 2000 panel - Serum or Plasma COMP METABOLIC PANEL Lab Routine Unintended weight loss Fatigue, unspecified type Decreased stamina Black hairy tongue Altered taste Lack of appetite Expected: 03/23/2023, Expires: 05/23/2023 [facility] Work Phone: Comment on above: Expected: 03/23/2023, Expires: 3 Start: 03-23-2023 End: 05-23-2023 Creatine kinase [Enzymatic activity/volume] in Serum or Plasma CK CREATINE KINASE Lab Routine Generalized weakness Expected: 03/23/2023, Expires: 05/23/2023 [facility] Work Phone: Comment on above: Expected: 03/23/2023, Expires: 3 Start: 03-23-2023 End: 05-23-2023 Erythrocyte sedimentation rate SED RATE WESTERGREN Lab Routine Generalized weakness Expected: 03/23/2023, Expires: 05/23/2023 [facility] Work Phone: Comment on above: Expected: 03/23/2023, Expires: Start: 03-23-2023 End: 05-23-2023 HEAVY METALS SCRN BL HEAVY METALS SCRN BL Lab Routine Unintended weight loss Fatigue, unspecified type SINDI (acute kidney injury) (HCC) Decreased stamina Anemia, unspecified type Altered taste SOB (shortness of breath) Lack of appetite Expected: 03/23/2023, Expires: 05/23/2023 [facility] Work Phone: Comment on above: Expected: 03/23/2023, Expires: Start: 03-23-2023 End: 05-23-2023 Iron and Iron binding capacity panel - Serum or Plasma IRON + TIBC Lab Routine Fatigue, unspecified type Decreased stamina Anemia, unspecified type Altered taste SOB (shortness of breath) Lack of appetite Expected: 03/23/2023, Expires: 05/23/2023 [facility] Work Phone: Comment on above: Expected: 03/23/2023, Expires: Start: 03-23-2023 End: 05-23-2023 Rheumatoid factor [Units/volume] in Serum or Plasma RHEUMATOID FACTOR BL Lab Routine Generalized weakness Expected: 03/23/2023, Expires: 05/23/2023 [facility] Work Phone: Comment on above: Expected: 03/23/2023, Expires: 3 Start: 03-23-2023 End: 05-23-2023 Thyrotropin [Units/volume] in Serum or Plasma TSH BLD Lab Routine Unintended weight loss Fatigue, unspecified type Decreased stamina Altered taste Hoarseness of voice Bilateral leg edema Expected: 03/23/2023, Expires: 05/23/2023 [facility] Work Phone: Comment on above: Expected: 03/23/2023, Expires: 3 Start: 03-23-2023 End: 05-23-2023 Thyroxine (T4) free [Mass/volume] in Serum or Plasma T4 FREE/FREE THYROX Lab Routine Unintended weight loss Fatigue, unspecified type Decreased stamina Altered taste Hoarseness of voice Bilateral leg edema Lack of appetite Expected: 03/23/2023, Expires: 05/23/2023 [facility] Work Phone: Comment on above: Expected: 03/23/2023, Expires: 3 Start: 03-23-2023 End: 05-23-2023 Triiodothyronine (T3) Free [Mass/volume] in Serum or Plasma T3 FREE BLD Lab Routine Unintended weight loss Fatigue, unspecified type Decreased stamina Altered taste Hoarseness of voice Bilateral leg edema Lack of appetite Expected: 03/23/2023, Expires: 05/23/2023 [facility] Work Phone: Comment on above: Expected: 03/23/2023, Expires: 3 Start: 03-18-2023 Patient discharge [facility] Start: 03-17-2023 Ambulation without limitation [facility] Start: 03-17-2023 Assessment of risk of venous thromboembolism [facility] Start: 03-17-2023 Insertion of catheter into peripheral vein [facility] Start: 03-17-2023 Measuring intake and output [facility] Start: 03-17-2023 Providing care according to standard [facility] Start: 03-17-2023 [facility] Start: 03-17-2023 Following clinical pathway protocol [facility] Start: 03-17-2023 US urinary tract Kidney and Bladder [facility] Start: 03-17-2023 Verification routine [facility] Start: 03-17-2023 End: 03-17-2023 Admission procedure [facility] Start: 03-17-2023 Patient referral to dietitian [facility] Start: 03-16-2023 End: 05-16-2023 Comprehensive metabolic 2000 panel - Serum or Plasma [facility] Work Phone: Comment on above: Expected: 03/16/2023, Expires: 3 Start: 03-16-2023 End: 05-16-2023 LIPID PANEL, NONFASTING [facility] Work Phone: Comment on above: Expected: 03/16/2023, Expires: 3 Start: 03-16-2023 End: 05-16-2023 Prostate specific Ag [Mass/volume] in Serum or Plasma [facility] Work Phone: Comment on above: Expected: 03/16/2023, Expires: 3 Start: 03-16-2023 End: 05-16-2023 Urinalysis complete panel - Urine [facility] Work Phone: Comment on above: Expected: 03/16/2023, Expires: 3 Start: 01-27-2023 Adult depression screening assessment DEPRESSION SCREENING [facility] Start: 01-27-2023 SHINGRIX VACCINE (2 of 3) SHINGRIX VACCINE (2 of 3) [facility] Comment on above: Postponed from 07/11/2013 (Insurance Cov erage) Start: 01-27-2023 Urine microalbumin profile DTAP,TDAP,TD (2 - Td or Tdap) [facility] Comment on above: Postponed from 05/13/2020 (Insurance Cov erage) Start: 11-11-2022 End: 01-11-2023 Comprehensive metabolic 2000 panel - Serum or Plasma COMP METABOLIC PANEL Lab Routine Encounter for screening for diabetes mellitus Medication management NSAID long-term use Expected: 11/11/2022, Expires: 01/11/2023 [facility] Work Phone: Comment on above: Expected: 11/11/2022, Expires: 3 Start: 11-11-2022 End: 01-11-2023 LIPID PANEL, NONFASTING LIPID PANEL, NONFASTING Lab Routine Encounter for lipid screening for cardiovascular disease Expected: 11/11/2022, Expires: 01/11/2023 [facility] Work Phone: Comment on above: Expected: 11/11/2022, Expires: 3 Start: 11-11-2022 End: 01-11-2023 Prostate specific Ag [Mass/volume] in Serum or Plasma PSA/PROSTSPECAG DIAG Lab Routine Prostate disorder Expected: 11/11/2022, Expires: 01/11/2023 [facility] Work Phone: Comment on above: Expected: 11/11/2022, Expires: 3 Start: 11-11-2022 End: 01-11-2023 Urinalysis complete panel - Urine URINALYSIS, WITH MICROSCOPIC Lab Routine Medication management NSAID long-term use Expected: 11/11/2022, Expires: 01/11/2023 [facility] Work Phone: Comment on above: Expected: 11/11/2022, Expires: 3 Start: 09-18-2022 ADVANCE DIRECTIVE DISCUSSION ADVANCE DIRECTIVE DISCUSSION [facility] Start: 09-18-2022 DEPRESSION ASSESSMENT DEPRESSION ASSESSMENT [facility] Start: 05-19-2022 Influenza vaccination [facility] Start: 01-18-2022 End: 03-20-2022 Basic metabolic 2000 panel - Serum or Plasma BASIC METABOLIC PNL Lab Routine Encounter for screening for diabetes mellitus Medication management NSAID long-term use Expected: 01/18/2022, Expires: 03/20/2022 [facility] Work Phone: Comment on above: Expected: 01/18/2022, Expires: 2 Start: 01-18-2022 End: 03-20-2022 CBC W Auto Differential panel - Blood CBC + DIFF Lab Routine Medication management NSAID long-term use Expected: 01/18/2022, Expires: 03/20/2022 [facility] Work Phone: Comment on above: Expected: 01/18/2022, Expires: 2 Start: 01-18-2022 End: 03-20-2022 LIPID PANEL, NONFASTING LIPID PANEL, NONFASTING Lab Routine Encounter for screening for diabetes mellitus Encounter for lipid screening for cardiovascular disease Expected: 01/18/2022, Expires: 03/20/2022 [facility] Work Phone: Comment on above: Expected: 01/18/2022, Expires: 2 Start: 01-18-2022 End: 03-20-2022 Prostate specific Ag [Mass/volume] in Serum or Plasma PSA/PROSTSPECAG DIAG Lab Routine Family history of prostate cancer Prostate disorder Expected: 01/18/2022, Expires: 03/20/2022 [facility] Work Phone: Comment on above: Expected: 01/18/2022, Expires: 2 Start: 01-18-2022 End: 03-20-2022 Urinalysis complete panel - Urine URINALYSIS, WITH MICROSCOPIC Lab Routine Medication management NSAID long-term use Expected: 01/18/2022, Expires: 03/20/2022 [facility] Work Phone: Comment on above: Expected: 01/18/2022, Expires: 2 Start: 11-19-2021 COVID-19 VACCINE (3 - Booster for Elida series) COVID-19 VACCINE (3 - Booster for Elida series) [facility] Start: 09-18-2021 ADVANCE DIRECTIVE DISCUSSION ADVANCE DIRECTIVE DISCUSSION [facility] Start: 09-16-2021 COVID-19 VACCINE (3 - Booster for Elida series) COVID-19 VACCINE (3 - Booster for Elida series) [facility] Start: 09-16-2021 COVID-19 VACCINE (3 - Elida risk series) COVID-19 VACCINE (3 - Elida risk series) [facility] Start: 07-04-2020 Adult depression screening assessment DEPRESSION SCREENING [facility] Start: 05-13-2020 Urine microalbumin profile DTAP,TDAP,TD (2 - Td or Tdap) [facility] Start: 07-11-2013 SHINGRIX VACCINE (1 of 2) SHINGRIX VACCINE (1 of 2) [facility] Start: 07-11-2013 SHINGRIX VACCINE (2 of 3) SHINGRIX VACCINE (2 of 3) [facility] Start: 2012 RSV Vaccine (1 - 1-dose 60+ series) RSV Vaccine (1 - 1-dose 60+ series) [facility] Start: 2012 RSV Vaccine (1 - Risk 60-74 years 1-dose series) RSV Vaccine (1 - Risk 60-74 years 1-dose series) [facility] Start: 05-21-2008 Screening for malignant neoplasm of colon Sigmoidoscopy [facility] Start: 05-21-2008 SIGMOIDOSCOPY SIGMOIDOSCOPY [facility] Start: 05-02-2007 FECAL OCCULT BLOOD FECAL OCCULT BLOOD [facility] Start: 05-02-2007 Screening for malignant neoplasm of colon Fecal Occult Blood [facility] Start: 1997 COLOGUARD (FIT-DNA) COLOGUARD (FIT-DNA) [facility] Start: [address] COLONOGRAPHY [facility] Start: 1997 Screening for malignant neoplasm of colon [facility] Start: 1970 Anxiety Screening Anxiety Screening [facility] Start: 1970 HEPATITIS C SCREENING HEPATITIS C SCREENING [facility] Start: 1957 COVID-19 VACCINE (1) COVID-19 VACCINE (1) [facility] End: 11-05-2024 Basic metabolic 2000 panel - Serum or Plasma BASIC METABOLIC PNL Lab STAT 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) (HCC) Cardiac amyloidosis (HCC) Once per week for 52 Occurrences starting 11/07/2023 until 11/05/2024 [facility] Work Phone: Comment on above: Once per week for 52 Occurrences startin g 11/07/2023 until 11/05/2024 End: 04-24-2024 [id number] [Mass/volume] in Serum or Plasma B2 MICROGLOBULIN B Lab 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) Once per month for 12 Occurrences starting 04/25/2023 until 04/24/2024 [facility] Work Phone: Comment on above: Once per month for 12 Occurrences starti ng 04/25/2023 until 04/24/2024 Bilirubin measuremen t, urine [facility] End: 04-24-2024 CBC W Auto Differential panel - Blood CBC + DIFF Lab STAT 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) Once per week for 52 Occurrences starting 04/25/2023 until 04/24/2024 [facility] Work Phone: Comment on above: Once per week for 52 Occurrences startin g 04/25/2023 until 04/24/2024 End: 04-24-2024 Comprehensive metabolic 2000 panel - Serum or Plasma COMP METABOLIC PANEL Lab STAT 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) Once per month for 12 Occurrences starting 04/25/2023 until 04/24/2024 [facility] Work Phone: Comment on above: Once per month for 12 Occurrences starti ng 04/25/2023 until 04/24/2024 End: 05-01-2024 Comprehensive metabolic 2000 panel - Serum or Plasma COMP METABOLIC PANEL Lab Routine SOB (shortness of breath) Acute on chronic heart failure with preserved ejection fraction (HFpEF) (HCC) Every other week for 5 Occurrences starting 05/02/2023 until 05/01/2024 [facility] Work Phone: Comment on above: Every other week for 5 Occurrences start ing 05/02/2023 until 05/01/2024 End: 01-04-2025 Comprehensive metabolic 2000 panel - Serum or Plasma COMPREHENSIVE METABOLIC PANEL Lab STAT 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) Every 3 weeks for 18 Occurrences starting 01/07/2024 until 01/04/2025 [facility] Work Phone: Comment on above: Every 3 weeks for 18 Occurrences startin g 01/07/2024 until 01/04/2025 End: 05-05-2024 Ct abdomen & pelvis w/o contrast material CT ABD/PEL WO IVCON Radiology Routine [place] macroglobulinemia (HCC) 1 Occurrences starting 04/06/2023 until 05/05/2024 [facility] Work Phone: Comment on above: 1 Occurrences starting 04/06/2023 until 05/05/2024 End: 04-21-2024 Ct thorax w/o contrast material CT CHEST WO IVCON Radiology Routine Unintended weight loss Fatigue, unspecified type Decreased stamina SOB (shortness of breath) Lack of appetite 1 Occurrences starting 03/23/2023 until 04/21/2024 [facility] Work Phone: Comment on above: 1 Occurrences starting 03/23/2023 until 04/21/2024 End: 04-27-2024 ECG COMPLETE ECG COMPLETE ECG Routine Acute on chronic heart failure with preserved ejection fraction (HFpEF) (HCC) 1 Occurrences starting 04/27/2023 until 04/27/2024 [facility] Work Phone: Comment on above: 1 Occurrences starting 04/27/2023 until 04/27/2024 End: 07-31-2024 ECG COMPLETE ECG COMPLETE ECG Routine NICM (nonischemic cardiomyopathy) (HCC) Chronic heart failure with preserved ejection fraction (HFpEF) (HCC) 1 Occurrences starting 07/31/2023 until 07/31/2024 [facility] Work Phone: Comment on above: 1 Occurrences starting 07/31/2023 until 07/31/2024 End: 04-09-2025 ECG COMPLETE ECG COMPLETE ECG Routine AL amyloidosis (HCC) Chronic heart failure with preserved ejection fraction (HFpEF) (HCC) 1 Occurrences starting 04/09/2024 until 04/09/2025 [facility] Comment on above: 1 Occurrences starting 04/09/2024 until 04/09/2025 End: 01-21-2026 ECG COMPLETE ECG COMPLETE ECG Routine Cardiac amyloidosis (HCC) Chronic diastolic congestive heart failure (HCC) 1 Occurrences starting 01/21/2025 until 01/21/2026 [facility] Comment on above: 1 Occurrences starting 01/21/2025 until 01/21/2026 End: 05-02-2024 Echocardiography ECHO Cardiology Routine SOB (shortness of breath) Acute on chronic heart failure with preserved ejection fraction (HFpEF) (HCC) 1 Occurrences starting 05/02/2023 until 05/02/2024 [facility] Work Phone: Comment on above: 1 Occurrences starting 05/02/2023 until 05/02/2024 End: 07-31-2024 Echocardiography ECHO Cardiology Routine NICM (nonischemic cardiomyopathy) (HCC) Chronic heart failure with preserved ejection fraction (HFpEF) (HCC) 1 Occurrences starting 07/31/2023 until 07/31/2024 [facility] Work Phone: Comment on above: 1 Occurrences starting 07/31/2023 until 07/31/2024 End: 12-03-2025 Echocardiography ECHO Cardiology Routine Cardiac amyloidosis (HCC) 1 Occurrences starting 12/03/2024 until 12/03/2025 [facility] Work Phone: Comment on above: 1 Occurrences starting 12/03/2024 until 12/03/2025 Hemoglobin [Presence ] in Urine [facility] IR DIALYSIS APHERESI S CATHETER PLACEMENT IR DIALYSIS APHERESIS CATHETER PLACEMENT Radiology Routine CKD (chronic kidney disease), stage V (HCC) Ordered: 12/05/2023 [facility] Work Phone: Comment on above: Ordered: 12/05/2023 End: 04-24-2024 KAPPA/EMERY,FREE,SER KAPPA/EMERY,FREE,SER Lab 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) Once per month for 12 Occurrences starting 04/25/2023 until 04/24/2024 [facility] Work Phone: Comment on above: Once per month for 12 Occurrences starti ng 04/25/2023 until 04/24/2024 End: 04-24-2024 Lactate dehydrogenase [Enzymatic activity/volume] in Serum or Plasma LD LACTATE DEHYDRO Lab 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) Once per month for 12 Occurrences starting 04/25/2023 until 04/24/2024 [facility] Work Phone: Comment on above: Once per month for 12 Occurrences starti ng 04/25/2023 until 04/24/2024 End: 08-20-2024 Lactate dehydrogenase [Enzymatic activity/volume] in Serum or Plasma LD LACTATE DEHYDRO Lab STAT 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AL amyloidosis (HCC) Daily for 25 Occurrences starting 08/21/2023 until 08/20/2024 [facility] Work Phone: Comment on above: Daily for 25 Occurrences starting 2022 until 08/20/2024 Measurement of keton es in urine using dipstick [facility] Microscopic urinalysis [facility] MONOCLONAL PROT 24 U R W/INTERP MONOCLONAL PROT 24 UR W/INTERP Lab Routine Monoclonal (M) protein disease, multiple 'M' protein Ordered: 04/05/2023 [facility] Work Phone: Comment on above: Ordered: 04/05/2023 End: 04-24-2024 MONOCLONAL PROTEIN, SERUM (BLOOD) MONOCLONAL PROTEIN, SERUM (BLOOD) Lab 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) Once per month for 12 Occurrences starting 04/25/2023 until 04/24/2024 [facility] Work Phone: Comment on above: Once per month for 12 Occurrences starti ng 04/25/2023 until 04/24/2024 End: 05-01-2024 Natriuretic peptide.B prohormone N-Terminal [Mass/volume] in Serum or Plasma NT PRO BNP Lab Routine SOB (shortness of breath) Acute on chronic heart failure with preserved ejection fraction (HFpEF) (HCC) Every other week for 5 Occurrences starting 05/02/2023 until 05/01/2024, 1 completed [facility] Work Phone: Comment on above: Every other week for 5 Occurrences start ing 05/02/2023 until 05/01/2024, 1 completed NM CARDIAC PERF STRESS/PHARM NM CARDIAC PERF STRESS/PHARM Radiology STAT Decreased stamina Elevated troponin level SOB (shortness of breath) Nonspecific ST-T wave electrocardiographic changes Ordered: 03/23/2023 [facility] Work Phone: Comment on above: Ordered: 03/23/[address] [facility] Work Phone: Patient referral [facility] Work Phone: pH of Urine [facility] End: 08-20-2024 Phosphate [Mass/volume] in Serum or Plasma PHOSPHORUS INORGANIC Lab STAT 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AL amyloidosis (HCC) Daily for 25 Occurrences starting 08/21/2023 until 08/20/2024 [facility] Work Phone: Comment on above: Daily for 25 Occurrences starting 2022 until 08/20/2024 PROT ELEC UR 24HR W/ M SPIKE (P) PROT ELEC UR 24HR W/M SPIKE (P) Lab Routine Monoclonal (M) protein disease, multiple 'M' protein Ordered: 04/05/2023 [facility] Work Phone: Comment on above: Ordered: 04/05/2023 PROT ELEC UR 24HR W/ M SPIKE AND INTERP PROT ELEC UR 24HR W/M SPIKE AND INTERP Lab Routine Monoclonal (M) protein disease, multiple 'M' protein Ordered: 04/05/2023 [facility] Work Phone: Comment on above: Ordered: 04/05/2023 Protein [Mass/time] in 24 hour Urine PROTEIN 24 HR URINE Lab Routine Monoclonal (M) protein disease, multiple 'M' protein Ordered: 04/05/2023 [facility] Work Phone: Comment on above: Ordered: 04/05/2023 End: 04-24-2024 PROTEIN ELECTROPHORESIS SERUM W/INTERP PROTEIN ELECTROPHORESIS SERUM W/INTERP Lab 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) Once per month for 12 Occurrences starting 04/25/2023 until 04/24/2024 [facility] Work Phone: Comment on above: Once per month for 12 Occurrences starti ng 04/25/2023 until 04/24/2024 End: 05-04-2024 Radiologic examination osseous survey compl XR BONE SURVEY ROUTINE Radiology Routine Monoclonal (M) protein disease, multiple 'M' protein 1 Occurrences starting 04/05/2023 until 05/04/2024 [facility] Work Phone: Comment on above: 1 Occurrences starting 04/05/2023 until 05/04/2024 Specific gravity of Urine [facility] End: 04-21-2024 SPIROMETRY - BASELINE AND POST DILATOR SPIROMETRY - BASELINE AND POST DILATOR PFT Routine SOB (shortness of breath) 1 Occurrences starting 03/23/2023 until 04/21/2024 [facility] Work Phone: Comment on above: 1 Occurrences starting 03/23/2023 until 04/21/2024 End: 08-20-2024 Urate [Mass/volume] in Serum or Plasma URIC ACID BLOOD Lab STAT 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AL amyloidosis (HCC) Daily for 25 Occurrences starting 08/21/2023 until 08/20/2024 [facility] Work Phone: Comment on above: Daily for 25 Occurrences starting 2022 until 08/20/2024 Urinalysis, blood, qualitative [facility] Urine dipstick for glucose [facility] Urine dipstick for leukocyte esterase [facility] Urine dipstick for nitrite [facility] Urine dipstick for protein [facility] Urine examination [facility] Urine microscopy: epithelial cells [facility] Urine Microscopy: wh ite cells [facility] Urobilinogen [Presen ce] in Urine [facility] End: 04-21-2024 US ABDOMEN COMPLETE US ABDOMEN COMPLETE Radiology Routine Unintended weight loss Fatigue, unspecified type Decreased stamina Lack of appetite 1 Occurrences starting 03/23/2023 until 04/21/2024 [facility] Work Phone: Comment on above: 1 Occurrences starting 03/23/2023 until 04/21/2024 End: 01-03-2025 XR Chest Single view XR CHEST 1V FRONTAL Radiology Routine CKD (chronic kidney disease), stage V (HCC) 1 Occurrences starting 12/05/2023 until 01/03/2025 [facility] Work Phone: Comment on above: 1 Occurrences starting 12/05/2023 until 01/03/2025 XR Chest Single view XR CHEST 1V FRONTAL Radiology Routine CKD (chronic kidney disease), stage V (HCC) 12/07/2023 11:36 AM EDT [facility] Work Phone: [facility] Immunizations Immunization Date Immunization Notes Care Provider Fa [facility] 02-04-2025 COVID-19 vaccine, ag e 12+ yr (PFIZER-BIONTECH COMIRNATY) Jose Hugo DO Work Phone: [facility] 08-06-2024 COVID-19 vaccine, ag e 12+ yr (PFIZER-BIONTECH COMIRNATY) Jose Miguel Herbert MD Work Phone: [facility] 07-03-2024 influenza, high dose seasonal, preservative-free Jose Miguel Herbert MD Work Phone: [facility] 07-03-2024 influenza virus vacc ine, unspecified formulation Jose Hugo DO Work Phone: [facility] 12-08-2023 COVID-19 vaccine, ag e 12+ yr, season (PFIZER-BIONTECH) Mi Nurse Work Phone: [facility] 08-09-2023 influenza (aIIV4) vaccine, age 65+ yr, quadrivalent, PF (FLUAD QUAD) Treatment Wstr Work Phone: [facility] 08-09-2023 zoster vaccine recombinant Treatment Wstr Work Phone: [facility] 08-09-2023 influenza virus vacc ine, unspecified formulation Oanh Jim PRODUCT INTRODUCTION MANAGER Work Phone: [facility] 03-08-2023 zoster vaccine recombinant Jose Miguel Herbert MD Work Phone: [facility] 02-28-2023 tetanus toxoid, redu demetrius diphtheria toxoid, and acellular pertussis vaccine, adsorbed Jose Miguel Herbert MD Work Phone: [facility] 07-09-2020 influenza, high-dose , quadrivalent vaccine (FLUZONE HIGH DOSE QUADRIVALENT) Jose Miguel Herbert MD Work Phone: [facility] 07-09-2020 influenza virus vacc ine, unspecified formulation Jose Hugo Work Phone: [facility] 07-04-2019 influenza, high dose seasonal, preservative-free Jose Miguel Herbert MD Work Phone: [facility] 07-04-2019 pneumococcal polysaccharide vaccine, 23 valent Jose Miguel Herbert MD Work Phone: [facility] 06-28-2018 pneumococcal conjuga te vaccine, 13 valent Jose Miguel Herbert MD Work Phone: [facility] 05-16-2013 zoster vaccine, live Jose Miguel Herbert MD Work Phone: [facility] Work Phone: 05-13-2010 tetanus toxoid, redu demetrius diphtheria toxoid, and acellular pertussis vaccine, adsorbed Jose Miguel Herbert MD Work Phone: [facility] Work Phone: Payers Date Payer Category Payer Self-pay [id number] 2019 Private Health Insurance MMO MED ICARE SUPPLEMENT [id number] 2019 Unknown MMO MMO MEDICARE SUPPLEMENT [id number] 2019-Present [phone] [address] [place] [address] Indemnity [id number] 2019 Unknown MMO MMO MEDICARE SUPPLEMENT [id number] 2019-Present [phone] [address] [place] [address] Indemnity [id number] 2019 Unknown [id number] 2017 Medicare MEDICARE MEDICAR E A AND B [id number] 2017-Present [phone] [address] [address] [place] [address] Medicare [id number] 2017 Medicare [id number] 2017 Medicare [id number] Unknown [employer] BLUE ACCESS PPO [id number] Unknown [id number] Unknown [id number] Unknown [id number] Unknown [id number] Unknown [id number] Unknown [id number] Unknown [id number] Unknown [id number] Unknown [id number] Unknown [id number] Unknown [id number] Unknown [id number] Social History Date Type Detail Facility Start: 05-16-2013 End: 12-31-2024 Tobacco smoking status NHIS Never smoked tobacco [facility] Start: 01-18-2022 End: 02-04-2025 Alcohol intake Current non-drinker of alcohol (finding) [facility] Start: 1950 Sex Assigned At Not on file [facility] Start: 01-17-2022 End: 01-27-2022 Exposure to SARS-CoV-2 (event) Not sure [facility] Start: 05-16-2013 Tobacco use and exposure Smokeless tobacco non-user [facility] Work Phone: Start: 03-17-2023 End: 12-18-2023 Tobacco smoking status TXIS Unknown if ever smoked [facility] Start: 1950 Sex Assigned At Male W [facility] Start: 03-23-2023 End: 08-28-2023 History of Social function [facility] Work Phone: Start: 03-23-2023 End: 08-28-2023 Tobacco use panel [facility] Work Phone: Adult Depression Screening Assessment 0 [facility] Work Phone: (I/We) worried wheth er (my/our) food would run out before (I/we) got money to buy more. Never true [facility] Work Phone: In the past 12 month s, was there a time when you were not able to pay the mortgage or rent on time? No [facility] Work Phone: How often to you hav e a drink containing alcohol? Never [facility] Start: 01-14-2025 Sex Male (finding) [facility] Medical Equipment Procedure Code Equipment Code Equipment Origin al Text Equipment Identifier Dates Creation, AV fistula FEM-POP ARTERY 21-29CM FDA Start: 01-14-2025 Creation, AV fistula Ligation clip, metallic [id number] FDA Start: 01-14-2025 Creation, AV fistula Ligation clip, metallic [id number] FDA Start: 01-14-2025 Creation, AV fistula FEM-POP ARTERY 21-29CM FDA Start: 01-14-2025 Catheter Glidepa th 14.5fr Straight Polyurethane 24cm 19cm Hemodialysis Kit - [id number] Start: 12-11-2023 Goals Date Patient Goal Desired Activity /State Personal health goal Functional Status Date Assessment Result Facility 09-19-2023 Are you deaf, or do you have serious difficulty hearing No 09/19/2023 2:27 PM Carmel Santos RN No [facility] 09-19-2023 Are you blind, or do you have serious difficulty seeing, even when wearing glasses No 09/19/2023 2:27 PM Carmel Santos, COLT No [facility] 09-19-2023 Do you have serious difficulty walking or climbing stairs No 09/19/2023 2:27 PM Carmel Santos RN No [facility] 09-19-2023 Do you have difficul ty dressing or bathing No 09/19/2023 2:27 PM Carmel Santos RN No [facility] 09-19-2023 Because of a physica l, mental, or emotional condition, do you have difficulty doing errands alone such as visiting a physician's office or shopping No 09/19/2023 2:27 PM Carmel Santos RN No [facility] 03-18-2023 Functional status Ambulates;Up ad caryl [facility] Work Phone: Mental Status Date Assessment Result Facility 01-14-2025 Cognitive function Voice/Name [facility] Work Phone: 12-18-2023 Cognitive function Level Of Cons ciousness Awake;Alert;Appropriate;Fol lows Commands [facility] Work Phone: 12-15-2023 Cognitive function Level Of Cons ciousness Awake;Alert;Appropriate;Fol lows Commands [facility] Work Phone: 09-19-2023 Because of a physica l, mental, or emotional condition, do you have serious difficulty concentrating, remembering, or making decisions No 09/19/2023 2:27 PM Carmel Santos RN No [facility] 03-18-2023 Cognitive function Voice/Name [facility] Work Phone: 03-17-2023 Cognitive function Level Of Cons ciousness Awake;Alert;Appropriate;Fol lows Commands [facility] Work Phone: Clinical Notes 01-18-2022 to 04-15-2025 Erin Montalvo - 04/15/2025 2:55 PM EDTTelephone Encounter - Sarah Chavez LPN - 04/04/2025 7:35 AM EDTTelephone Encounter - Sarah Chavez LPN - 04/04/2025 7:35 AM EDT Note Date & Type Note Facility 04-15-2025 History of Present illness Narrative [facility] Refill Assessment Medication(s): Brukinsa No new clinical information to review since last [facility] refill encounter. Next OV scheduled 05/20/25. ALLERGIES No Known Allergies Patient's current medication list and adherence status to current therapy were reviewed by Specialty Pharmacy clinical pharmacist to identify any new drug interactions or non-compliance to therapy. Therapy continues to be appropriate for disease, patient response, and medical condition. Verification of therapeutic benefit and effectiveness with current therapy was completed. Adverse events, barriers in adherence, and side effects were assessed and addressed if applicable. Will proceed with refill with no changes in therapy - patient progressing towards achieving therapeutic goals based on medication-specific laboratory parameters, disease state markers and outcomes. Office/provider notes have been reviewed prior to dispensing the medication. Juanita RosaD, BCOP Clinical Pharmacist, Oncology [facility] P: , F: Pool: P [facility] Pool #: [id number] Poll Clerk Assessment Patient confirmed: Yes Med/dose confirmed: Yes Supplies needed: No supplies needed Missed doses: No Estimated days supply on hand: (36 capsules (9DS)) Copay amount: 0 Copay form of payment: Credit card on file Payment confirmed: Yes Delivery method: FedEx Signature required: Required (, Medicaid, patient preference) Delivery address: [address] [place] [id number] Delivery date: 04/17/25 Questions or concerns for the pharmacist?: No Did you have any side effects believed to be related to this medication, that resulted in hospitalization?: No Current Outpatient Medications on File Prior to Visit Medication Sig finasteride (PROSCAR) 5 mg tablet TAKE 1 TABLET BY MOUTH EVERY DAY acyclovir (ZOVIRAX) 200 mg capsule TAKE 1 CAPSULE BY MOUTH EVERY DAY atorvastatin (LIPITOR) 20 mg tablet Take 1 tablet by mouth daily at bedtime. For cholesterol. midodrine (PROAMATINE) 2.5 mg tablet Take 1 tablet by mouth as needed. Take if SBP < 90 mHg as needed zanubrutinib (BRUKINSA) 80 mg capsule Take 2 capsules (160 mg) by mouth two times a day with a glass of water calcium acetate (CALPHRON) 667 mg tablet Take 667 mg by mouth two times a day with meals. No current facility-administered medications on file prior to visit. 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 Take c water. Storage: Rm temp; Food int: no grapefruit or [place] oranges; Avoid fish oil, vitamin E and flaxseed (increased bleeding risk) Aes: HTN, Rash, Inc Uric Acid, Diarrhea, Petechia, Cough, Muscle pain, Emetic pot: Minimal to low Baseline Labs: 04/18/24 - Scr (elevated d/t ESRD, CrCl is 14.3 ml/min - renal adj not specified), bili, AST, ALT, M protein, kappa light chains, lambda light chains, CBC No hx of a.fib DDI: NONE as of 04/25/24 Est. Tx Plan Start Date: No information available Estimated Start Date Info: No information available Est. Estimated Treatment Duration: Until disease progression or unacceptable toxicity Erin Montalvo documented in this encounter [facility] 04-15-2025 Note [facility] 04-04-2025 Miscellaneous Notes Prescription Refill Information The patient has been identified by name and date of : Yes Caregiver verified no other encounters exist for this prescription request: Yes Caregiver confirmed with patient/requestor that no other refills are due, in the near future, with this provider at this time: Yes The last office visit in the department 02/25/2025 Does the patient have a future office visit with this provider/department: Yes Requested Prescriptions Pending Prescriptions Disp Refills finasteride (PROSCAR) 5 mg tablet [Pharmacy Med Name: FINASTERIDE 5 MG TABLET] 90 tablet 2 Sig: TAKE 1 TABLET BY MOUTH EVERY DAY Sarah Chavez LPN April 04, 2025 7:35 AM documented in this encounter [facility] 04-04-2025 Telephone encounter Note Prescription Refill Information The patient has been identified by name and date of : Yes Caregiver verified no other encounters exist for this prescription request: Yes Caregiver confirmed with patient/requestor that no other refills are due, in the near future, with this provider at this time: Yes The last office visit in the department 02/25/2025 Does the patient have a future office visit with this provider/department: Yes Requested Prescriptions Pending Prescriptions Disp Refills finasteride (PROSCAR) 5 mg tablet [Pharmacy Med Name: FINASTERIDE 5 MG TABLET] 90 tablet 2 Sig: TAKE 1 TABLET BY MOUTH EVERY DAY Sarah Chavez LPN April 04, 2025 7:35 AM [facility] 03-14-2025 Note [facility] 02-25-2025 Note [facility] 02-25-2025 History of Present illness Narrative Diagnosis: 1) IgM kappa amyloidosis. HPI: The patient is a 74 yo male with a PMH significant for BPH. Had labs 03/17/2023 for upcoming annual appointment with Dr. Herbert. Per Dr. Herbert's recent eveluation: Patient ws recently sent to [facility] due to SINDI. BUN was 47 and Cre was 2.47 with potassium of 5.3. patient used Excedrin on occasion, maybe a few times a month if that. Denies chronic NSAID use. EKG in ER showed ST-T wave changes in the lateral leads. 2D echo was unremarkable with normal LV size, mod concentric VH, systolic function was normal with an EF of 65%, mild diastolic dysfunction. His Trop level was elevated but since the echo was ok. No further cardiac w/u was pursued. An US of the kidnies and bladder showed possible chronic kidney disease, no hydronephrosis. Chest x-ray was normal. Patient was not started on any medications to go home on. He has an appt tomorrow with renal. CBC showed WBC normal at 6.8, Hg slightly low at 12.5, MCV was normal. Differential was unremarkable. Sodium, potassium, LFT's and TSH were al ok. Patient has been experiencing fatigue over the last 6 months. Also noticed a changed in his voice in the past 6 months off and on with hoarseness. Food has been tasting metalic Very Dry mouth. Has to take sips of water to help food go down. No N/V, diarrhea, hematochezia or melena. Eating less; no appetite. Has lost approx 10 lbs in past 1-2 months. Urination increased but always feeling thristy Swelling in both ankles and legs since maybe the beginning of this past year. Increased SOB and muscle fatigue No chest pain Stopped exercising in January due to fatigue and weakness. In October while he was swimming he felt like he was swimming in [place]. No shortness of breath. Denied chest heaviness, tightness or palpitations. Echo at [facility]: Interpretation Summary Normal LV size. Moderate concentric left ventricular hypertrophy. Left ventricular systolic function is normal. The estimated ejection fraction is 65 %. Stage 1 diastolic dysfunction. Pulmonary artery systolic pressure is 28 mmHg. Contrast injection was performed. Hospitalized at [facility] 08/25/2023 through 09/19/2023 for nonischemic heart failure with preserved ejection fraction, volume management and SINDI. Per discharge summary. Mr. 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 Volume status very difficult to assess due to baseline elevated creatinine and patient's cachectic habitus. Originally diuresed with sx improvement, but RHC demonstrated patient intravascularly depleted so diuresis held and given PRN small volume fluid boluses. Hospitalization c/b orthostatic hypotension and worsening of chronic urinary retention. Discharged on midodrine 5mg tid, and senior catheter in situ. # HFpEF - 02/2023 TTE: LVH, stage 1 diastolic dysfunction, EF 65% - 08/2023 TTE: EF 59%, Grade I left ventricular diastolic dysfunction, biventricular wall thickening - 09/01 RHC: Low normal biventricular filling pressures, Preserved CO/CI by Julián, reduced by TD Plan on discharge: - Hold diuretics iso orthostatic hypotension - Encourage PO intake #Orthostatic hypotension Multiple CMETs called during hospital course for syncope or near-syncope secondary to orthostatic hypotension. Etiology likely hypovolemia c/b AL amyloidosis with renal and cardiac involvement vs autonomic neuropathy vs post obstructive diuresis with volume depletion. Plan on discharge: - Midodrine 5 mg tid #Urinary retention 2/2 BPH #SINDI on CKD stage 4 2/2 AL amyloidosis - Cr 1.1 in 2021. In February 2023 he presented for an annual physical with his PCP and was found to have an SINDI with Cr 2.47. Since then, Cr has progressively up trended, and now it has stabilized at ~ 3.8-4, likely from Amyloidosis. - 08/28 US kidney/bladder: Markedly distended urinary bladder, perhaps chronic outlet obstruction due to BPH. Mild right hydroureteronephrosis, favored to be due to the markedly distended bladder. No stones or left hydronephrosis. Increase in parenchymal echogenicity of kidneys due to underlying chronic kidney disease. - 09/01 US kidney/bladder: No hydronephrosis. Markedly dilated urinary bladder despite Senior catheter. Increased parenchymal echogenicity of kidneys secondary to underlying chronic kidney disease. 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 Diagnosed 03/2023 with kidney biopsy - Follows with Dr. Hugo (oncology) - Started on velcade, rituximab and dexamethasone in April 2023. Did not see much clinical improvement so was switched to Bendamustine 3 days ago (08/22/23) with a plan for Rituximab with cycle #2 per oncology notes - Heme/Onc consulted but determined no role for inpatient management Plan on discharge: - hematology follow-up outpatient #Malnutrition Likely secondary to amyloidosis and lymphoma, worsened iso acute illness. Plan: - Nutrition recommending daily Ensure Max and renal vitamin OPERATIONS/PROCEDURE DURING THIS HOSPITALIZATION: Procedure(s) (LRB): RIGHT HEART CATHETERIZATION INCLUDING MEASUREMENT OF OXYGEN SATURATION AND CARDIAC OUTPUT (N/A) Renvela was cost prohibitive. Using TUMS per nephrology recommendations. Midodrine 5 mg 3 times daily consistently. When he was tried on 10 mg, developed urinary retention. Previous therapy: 1) Bendamustine/rituximab. Current therapy: 1) Zanubrutinib. Started 04/2024. Presents for ongoing oncologic management. Interim history: Had AV graft created in December. Used yesterday. Continues to tolerate zanubrutinib very well with no subjective side effect. No orthostasis since last seen. Had echo--some improvement. Can still climb 3 flights of stairs to his apartment. Appetite has been good. No nausea. Bowels, fine. Not short of breath with walking. No exertional chest pain or pressure. Home BPs doing well. Was told to take midodrine if SBP < 90. Has required very infrequently. Social History Tobacco Use Smoking status: Never Smokeless tobacco: Never Vaping Use Vaping status: Never Used Substance Use Topics Alcohol use: No Drug use: No Not . No children. Family History Problem Relation Age of Onset Prostate Cancer Father Heart Father Pacemaker Cancer Father Hodgkin's lymphoma None Sister other (non hodgkins lymphoma) Sister No Known Problems Maternal Grandmother No Known Problems Maternal Grandfather No Known Problems Paternal Grandmother No Known Problems Paternal Grandfather Coronary Artery Disease No Family History ROS: Constitutional: No fever. No drenching night sweats. Neuro: No recent SELF. HEENT: No recent change in vision or hearing. Resp: See above. CVS: No PND or orthopnea. GI: No reflux. No abdominal pain, bloating or distension. No black or bloody stools. : No dysuria or gross hematuria. Typically urinates every few hours during the day. Endo: No hot flashes. Musculoskeletal: No bone, back, joint and muscular pain. Derm: No current rash. No history of jaundice. Heme: No unusual bleeding and unexplained bruising. Psych: Normal mood. PHYSICAL EXAM: Vitals: Blood pressure 116/58, pulse 71, temperature 36.3 C (97.3 F), temperature source Tympanic, resp. rate 14, weight 54.2 kg (119 lb 8 oz), SpO2 100%. Well-appearing and in no acute distress. EYES: Sclerae are anicteric bilaterally. LYMPHATIC: There is no palpable cervical or supraclavicular adenopathy. CARDIOVASCULAR: Rhythm is regular. ABDOMEN: The abdomen is nondistended. Extremities: No swelling or edema. SKIN: No jaundice. LABORATORY DATA: PATHOLOGY: Bone marrow biopsy 04/11/2023: A-C. 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 - Hypercellular bone marrow (60-70%) with maturing trilineage hematopoiesis. - Increased storage iron. - Positive for amyloid deposition (numerous blood vessels, [place] red stain confirmatory). - See comment. 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 Left kidney biopsy 04/14/2023: A. [facility] [place] left kidney biopsy: - [place] light chain amyloidosis extensively involving glomeruli, the tubulointerstitium and vessel cooper. - Tubular atrophy and interstitial fibrosis, moderate to severe. Light microscopy shows prominent amyloid accumulation within glomeruli, vessel cooper and in a patchy distribution in the tubulointerstitium. Immunofluorescence shows strong staining for kappa and essentially negative staining for the remaining tested reactants. Electron microscopy confirms the presence of 8 to 10 nm fibrosis characteristic of amyloidosis. 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 CARDIOLOGY: Echocardiogram 03/17/2023 done at [facility] demonstrated normal LV size with moderate concentric left ventricular hypertrophy and left ventricular systolic function normal with estimated ejection fraction 65%. Stage I diastolic dysfunction was observed. Pulmonary artery systolic pressure estimated at 28 mmHg. Echocardiogram same day demonstrated normal sinus rhythm with incomplete right bundle branch block ST and T wave abnormality, consider lateral ischemia, prolonged QT. Exercise stress test at [facility] 04/19/2023: Impression: 1. Inability to reach 85% of maximal age-predicted heart rate decreases the sensitivity of this test exercise tolerance test 2. Stress test is positive for exercise-induced EKG changes of ischemia. However the specificity of this finding is decreased because of baseline ST-T changes 3. The test test is negative for exercise-induced chest pain 4. Functional capacity is decreased for age 5. Nuclear images pending Myocardial perfusion imaging study: Technique: The patient was injected with 11.1 mCi of technetium 99m Cardiolite and subsequently rest SPECT Cardiolite nuclear imaging was obtained in the horizontal long, vertical long, and short axis views. The patient exercised on a Adria protocol. Please see above for details. The patient was injected with 33.3 mCi of technetium 99m Cardiolite and subsequently stress SPECT Cardiolite nuclear imaging was obtained in the horizontal long, vertical long, and short axis views. A gated Cardiolite study at peak stress was obtained. Interpretation: Rest and stress SPECT Cardiolite nuclear imaging status post realignment, normalization, and attenuation correction, demonstrates mild decrease in the radioisotope uptake in the inferior wall prior to attenuation correction. After attenuation correction there is normal myocardial radioisotope uptake overall. These findings are suggestive of diaphragmatic attenuation artifact. The gated Cardiolite study demonstrates no significant regional wall motion abnormalities. The reported LVEF is 56%. Impression: 1. There is no definite evidence of ischemia. Please see the EKG portion of the test above as well. The sensitivity of this test is decreased because of inability to reach 85% of maximal age-predicted heart rate. 2. The gated Cardiolite study reports an LVEF of 56%. 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 Over several months prior to presentation he had been experiencing progressive constitutional symptoms of muscle weakness/fatigue, metallic taste, malaise and hoarseness. He was found to have azotemia. 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 -Baseline serum MP 0.7 g/dL. Baseline serum kappa free light chain 199.4 mg/dL. -CTs 04/06/2023 two small pulmonary nodules. No adenopathy or splenomegaly. -Reviewed his BP log from dialysis. Scanned. -Reviewed lab work in detail. Low-level kappa light chain but but not quantifiable on serum electrophoresis. Recent echocardiogram 11/2024 showed improvement. Symptomatically he has significantly improved from a cardiac standpoint. He continues to tolerate Zanubrutinib symptomatically very well. There have been no bleeding issues. Overall lower trend and light chain ratio so benefit of continuing outweighs risk. -Plan bone marrow biopsy if worsens, but otherwise continue zanubrutinib. Plan: -Continue zanubrutinib. -CBC monthly. -Repeat bone marrow biopsy if evidence increasing trend monoclonal protein or kappa light chain. -Office visit in 3 months. -Consider repeat 24-hour urine in 3 months. -Follow up with Dr. Reyes at [facility] as scheduled. Portions of this documentation were copied and pasted from my previous office visit note dated 12/03/2024 in order to provide a cohesive continuity of the history. The note has been reviewed and edited and updated as necessary. Jose Hugo DO documented in this encounter [facility] 02-04-2025 Note [facility] 01-27-2025 Note [facility] 01-24-2025 Telephone encounter Note Phoned patient left detailed message with notes below from Dr Herbert on patient voicemail. [facility] 01-24-2025 Miscellaneous Notes Phoned patient left detailed message with notes below from Dr Herbert on patient voicemail. Let patient know he is not due for a repeat PSA until April. Insurance will only cover once a year if no history of prostate cancer of elevated PSA and his is always very low. Patient will be completing lipid panel lab that was ordered for him by Dr. Herbert. Patient asking if a PSA level could be added as well? Call pt with update. Katherine Quinonez RN documented in this encounter [facility] 01-24-2025 Telephone encounter Note Let patient know he is not due for a repeat PSA until April. Insurance will only cover once a year if no history of prostate cancer of elevated PSA and his is always very low. [facility] 01-24-2025 Telephone encounter Note Patient will be completing lipid panel lab that was ordered for him by Dr. Herbert. Patient asking if a PSA level could be added as well? Call pt with update. Katherine Quinonez RN [facility] 01-21-2025 Note [facility] 01-21-2025 History of Present illness Narrative Images from the original note were not included. 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 The patient reports two recent syncopal episodes. The first occurred post-dialysis, which he attributes to excessive fluid removal due to an unadjusted dry weight. The second episode happened at a restaurant; he felt unusually full before losing consciousness. He denies any preceding lightheadedness, dizziness, or nausea during these episodes. He has not experienced any recent lightheadedness or dizziness otherwise. He monitors his blood pressure at home, noting systolic readings in the 90s to 100s, with occasional drops into the 80s. He was previously prescribed midodrine during a hospitalization but discontinued it in July of last year due to hypertensive episodes. He still has midodrine at home. He is currently undergoing dialysis three times a week. He notes that his urine output remains unchanged in volume but is almost colorless and foamy. He experiences fatigue post-dialysis but denies any significant issues during sessions. He mentions a weight loss of 20-30 pounds following his initial diagnosis but has since regained weight. He lives on the third floor of an apartment building without an elevator and inquires about resuming cardiovascular exercise, which he previously engaged in 2-3 times per week. Prior visit: 04/09/24 He was started on iHD 12/2023 via [place] TD MWF for 3 hrs. Midodrine was started due to hypotension. He still makes urine, he is unsure of how much (at night I get up to urinate multiple times). Swelling has been much better since he started iHD. He still has lightheadeness and dizziness when he changes position. Has had a couple of times after he got up too fast, did not hit his head. Lost 10 lbs since last visit/iHD initiation Intake history: 05/02/23 Patient has been experiencing progressive constitutional symptoms of muscle weakness/fatigue, metallic taste, malaise and hoarseness in the last 6 months. He was found to have renal dysfunction and workup for SINDI was significant for an IgM kappa monoclonal protein. K 947. L 199, K/L 15. 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 Kidney biopsy was done on 04/14/23 which showed [place] light chain amyloidosis extensively involving glomeruli, the tubulointerstitium and vessel cooper and Tubular atrophy and interstitial fibrosis, moderate to severe. NT pro BNP 9400 and HS OLAF 170 04/2023. Echocardiogram 03/27/23 demonstrated preserved LV systolic function with moderate concentric LVH. Dr. Hugo started him on chemotherapy: Velcade, rituximab and dexamethasone. He was referred to Cardiology due to his persistent shortness of breath, fatigue, LE edema with concerns of cardiac involvement. He feels extreme fatigue. Feels that his legs are made of rubber and they limit his ambulaiton. He feels shortness of breath when he goes up stairs. Stopped execising in January because of being so tired. Has swelling in the legs. Early satiety, no abdominal bloating. Dizziness or lightheaded when he changes position. Denies any orthopnea, PND or bendopnea. Social: Never smoker, no EOTH Family: Father had a pacemkaer late in his life No CTS, spinal stenois, bicep tendon rupture, rotator cuff. He does have trigger finger of the right hand. NURSING INTAKE (Patient s concerns and/or recent hospitalizations/ER visits): HF Nursing Assessment: Interim Hospitalizations and/or ER visits: Chest Pain: no Skipping or irregular heartbeats: no Shortness of breath at rest: no Shortness of breath with activity: no Cough: no Waking up in the middle of the night gasping for air: no Lightheadedness or dizziness: no Feeling like you are going to pass out: no Actually passing out: yes after dialysis he passed out while eating- 09/2024, at the end HD Poor energy level: yes Unintentional weight gain: no Unintentional weight loss: no Swelling in your legs,feet, abdomen: yes ankles Filling up quickly when you eat: no PAST MEDICAL HISTORY Diagnosis Date Abnormal thyroid blood test 05/08/202304/2023: Low TSH and Low free T3: referred to Endo Advance directive discussed with patient 01/27/2022 Discussed 01/2022 AL amyloidosis ([facility]) 05/24/2023 Allergic rhinitis due to other allergen Anemia 03/23/2023 Benign prostatic hyperplasia with urinary obstruction 05/17/[address] Shoemaker Bilateral leg edema 03/23/2023 Rt>Lt Black hairy tongue 05/27/2023 BPH without obstruction/lower urinary tract symptoms 05/17/2011 Cardiac amyloidosis ([facility]) 08/18/2023 Chronic diastolic congestive heart failure ([facility]) 08/30/2023 CKD (chronic kidney disease) stage 5, GFR less than 15 ml/min ([facility]) 05/24/2023 Seeing renal: Dr. 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 Hyperlipidemia, mixed 06/26/2023 Internal hemorrhoids without mention of complication [place]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 Living will on file 01/27/2022 DPA: Bari Betancur (tip length checker) 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 Medicare annual wellness visit, subsequent 01/27/2022 Medicare Part B: 08/18/2017 Last done: 01/27/2022 NICM (nonischemic cardiomyopathy) (HCC) 05/24/2023 Obstructed, uropathy 08/29/2023 Secondary hyperparathyroidism, renal (HCC) 08/30/2023 Stage 3b chronic kidney disease (HCC) 05/24/2023 Urinary catheter change required 08/2023 PAST SURGICAL HISTORY Procedure Laterality Date COLONOSCOPY FLX DX W/COLLJ SPEC WHEN PFRMD 08/07/2008 COLONOSCOPY FLX DX W/COLLJ SPEC WHEN PFRMD 06/07/2018 Colonoscopy HEMODIALYSIS VIA FUNCTIONING AVGRAFT Left 01/14/2025 AVG placed RPR 1ST INGUN HRNA AGE 5 YRS/> REDUCIBLE Hernia repair, inguinal, bilateral SIGMOIDOSCOPY FLX DX W/COLLJ SPEC BR/WA IF PFRMD 2003 Sigmoidoscopy SOCIAL HISTORY Social History Tobacco Use Smoking status: Never Smokeless tobacco: Never Vaping Use Vaping status: Never Used Substance Use Topics Alcohol use: No Drug use: No FAMILY HISTORY Problem Relation Age of Onset Prostate Cancer Father Heart Father Pacemaker Cancer Father Hodgkin's lymphoma None Sister other (non hodgkins lymphoma) Sister No Known Problems Maternal Grandmother No Known Problems Maternal Grandfather No Known Problems Paternal Grandmother No Known Problems Paternal Grandfather Coronary Artery Disease No Family History ALLERGIES: ALLERGIES No Known Allergies CURRENT MEDICATIONS: zanubrutinib (BRUKINSA) 80 mg capsule Take 2 capsules (160 mg) by mouth two times a day with a glass of water calcium acetate (CALPHRON) 667 mg tablet Take 667 mg by mouth two times a day with meals. acyclovir (ZOVIRAX) 200 mg capsule Take 1 capsule by mouth once daily. atorvastatin (LIPITOR) 20 mg tablet Take 1 tablet by mouth daily at bedtime. For cholesterol. finasteride (PROSCAR) 5 mg tablet Take 1 tablet by mouth once daily. REVIEW OF SYSTEMS: ROS HEART FAILURE PATIENT ENTERED DATA: No data to display No data to display No data to display PHYSICAL EXAMINATION: BP 118/63 (BP Site: Right Arm) Pulse 70 Ht 171.5 cm (5' 7.5) Wt 55.3 kg (122 lb) SpO2 100% BMI 18.83 kg/m General: Well appearing, in no acute distress. Skin: No clubbing, no cyanosis. Eyes: Extra ocular movements intact Oropharynx: Teeth in good repair. Neck: No jugular venous distention, no carotid bruits, carotids have a normal upstroke, no palpable thyromegaly. Lungs: Clear to auscultation bilaterally, no wheezing or rhonchi. Heart: Regular rhythm, PMI not displaced, S1, S2 normal, no S3, no S4, no heaves, no rub and no murmur. Abdomen: Soft, nontender, bowel sounds normal, no palpable organomegaly, no bruits. Extremities: No peripheral edema . Grade 2/4 distal pulses bilaterally. Neuro: Oriented to person, place and time, alert, cooperative, gait coordinated. CARDIOVASCULAR MEDICINE TESTING: I have personally reviewed the Electrocardiogram, Laboratory Testing, and Echocardiogram. Last ECHO Result Conclusion ECHO Collected: 12/10/2024 2:14 PM (Final result) Impression: CONCLUSIONS: - Technically difficult exam due to body habitus and lung interference. - Exam indication: Cardiac amyloidosis - The left ventricle is normal in size. There is left ventricular hypertrophy. Left ventricular systolic function is normal. EF = 63 5% (2D biplane) Grade I left ventricular diastolic dysfunction. - The right ventricle is normal in size. Right ventricular systolic function is normal. - There are no significant valvular abnormalities. - Exam was compared with the prior echocardiographic exam performed on 08/25/2023, RAA and LA are not dilated now. * * * Final * * * Last EKG Result Conclusion ECG COMPLETE Collected: 10/10/2024 2:50 PM (Final result) Impression: NORMAL SINUS RHYTHM LATERAL T WAVE ABNORMALITY ABNORMAL ECG Confirmed by MD ALISSA, HERSON ([id number]) on 10/11/2024 11:09:31 AM IMPRESSION: NYHA Functional Class: II-III (multifactorial) Stage: C heart failure Target weight: today, 122lbs -Chronic HFpEF. Etiology: NICM. LVEF 59%, LVIDD 3.3cm, IVS 1.5cm, normal RV function. Ischemic evaluation: 04/19/23 EKG stress test wwas positive for exercise induced EKG ischemia but nehative for exercise induced chest pain. Patient did not reach 85% of MPHR Valvular disease: No significant valvular abnormalities. ICD: No indication The etiology of his cardiomyopathy is likely secondary to infiltrative CM (amyloid heart disease). NT pro BNP 9400 and HS OLAF 170 04/2023. EKG voltage seems out of proportion to LVH. Echocardiogram (per report) shows preserved LV systolic function with moderate concentric LVH (IVS 1.5cm). K 947. L 199, K/L 15, +M protein. 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 Kidney biopsy was done on 04/14/23 showed [place] light chain amyloidosis extensively involving glomeruli, the tubulointerstitium and vessel cooper. I do not think we need any further testing (non-invasive; I.e cMRI or invasive; I.e EMBx) as I think there is enough evidence based on EKG, echocardiography, in the setting of having a positive kidney/BM biopsy. Hematology (Dr. Hugo) following from hematology and started Rx on 04/2023. RHC 09/01/23 RA 3, PA 18/4 m7, PCWP 4, TDCI 1.95, AFCI 2.6 suggesting he was hypovolemic. Echocardiogram 11/2024 shows preserved LVEF and stable LVH. No RWMA. Symptoms much improved since starting iHD (specially LE edema). Patient does not complain of any angina or angina equivalent. Deferring repeat non-invasive ischemic workup as there is a clear etiology to his CM. On as needed midodrine for BP support. HF GDMT limited by hypotension and renal function. 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 Started on velcade, rituximab and dexamethasone in April 2023. Did not see much clinical improvement so was switched to Bendamustine and Rituximab, and current Rx consists of Zanubrutinib (started 04/2024). Following with Dr. Hugo. -Lymphoplasmacytic lymphoma -ESRD on iHD -BPH Heart Failure specific medications (list current, note updates or changes, note prior intolerance): BB: NA ACEI/ARB/ARNI: NA MRA: NA SGLT2: NA Diuretic: NA Digoxin: NA Vasodilators: NA Anti-arrhythmics: NA Ivabradine: NA Other anti-HTN: NA PLAN AND RECOMMENDATIONS: -Follow up in 6 months with labs and EKG I personally interviewed, confirmed and edited the above information as obtained by others I personally spent 40 minutes in total time involved in the management and care of this patient. We discussed natural history of disease, current treatment options, and future potential treatment options. We discussed diet, exercise, other non-medical management as above. Chester Kwan MD [facility] Section Of Heart Failure and Cardiac Transplant Medicine Heart and Vascular [place] [facility] Desk [address] [place] [address] documented in this encounter [facility] 01-16-2025 Note HNO ID: [id number] Author: GRICEL BRUNO LPN Service: ? Author Type: LICENSED NURSE Type: Progress Notes Filed: 01/16/2025 06:54 Note Text: Scan on 01/14/2025 6:00 PM by ProviderLázaro PA-C: Miscellaneous Procedures [facility] 01-16-2025 History of Present illness Narrative Scan on 01/14/2025 6:00 PM by Lázaro Cisse PA-C: Miscellaneous Procedures documented in this encounter [facility] 01-14-2025 Consult note [facility] 01-14-2025 Consult note [facility] 01-14-2025 Consult note Note Date/Time January 14, 2025 6:43pm [facility] Medical Records Department [facility] [place] [address] Anesthesia Postop Eval I 01/14/25 1638 MR#: [id number] Acct: [id number] Name: EDGAR HENDERSON Rep #:[id number] : 1950 74 From: Ashley Lee CRNA PCP: Dr. Jose Miguel Herbert MD Status:[facility] Y Race: C Location: [place] [address] Anesthesia: Postop Eval I Current Vital Signs Temperature: 97.9 F Pulse Rate: 77 Blood Pressure: 127/66 Respiratory Rate: 16 Pulse Ox: 100 Oxygen Delivery Method: Venturi Mask Oxygen Flow Rate (L/min): 6 Assessment Airway patent: Yes Spontaneous unlabored respirations: Yes Mental status: Awake nausea: No Vomiting: No Anesthesia Complication: No Fluid Hydration Crystalloid volume administer (ml): 400 Total IV fluid infused: 400 Progress Note Anesthesia document: Postop Eval 1 completed: Yes 01/14/251637 <Electronically signed by Ashley suresh CRNA> Date _ Ashley Lee LOCKER ROOM CLERK Cosigner Signature: Date CC: ~ Signed [facility] Work Phone: 1(588) 192-597504-29-2025 Discharge summary Author Alvarado Brody [facility] Note Date/Time January 14, 2025 4:1 0pm [facility] Medical Records Department [address] [place] [id number] Instructions for Home/Discharge Instructions 01/14/25 1607 MR#: [id number] Acct: [id number] Name: EDGAR HENDERSON Rep #:[id number] : 1950 74 From: Alvarado Brody MD PCP: Dr. Jose Miguel Herbert MD Status:[facility] Discharge Instructions Diet Discharge Diet: No restrictions Activity Lifting Restrictions: do not lift > 20 lbs with left arm for 3 weeks Additional Activity Instructions:: do not submerge incision for 3 weeks Dressing / Incision Call your doctor if your incision/area has: Sudden Increased Bleeding, IncreasedPain/ Swelling, Increased Redness and Foul Smelling Discharge Call your doctor if you observe: Coldness, Increased Pain and Numbness or Tingling Remove Dressing in: 2 days Cleanse incision/area with: Soap & Water Follow Up Care Test Results: Test results from this visit will be discussed in further detail at your follow- up appointment, if applicable. Discharge Plan Admission Attending Provider: Alvarado Brody Primary Care Provider: Jose Miguel Herbert Instructions Print Language: Citizen [place] Discharge Orders/Prescriptions Prescriptions: New oxycodone 5 mg tablet 5 mg PO Q8H PRN (Reason: pain) 2 Days Qty: 6 0RF Continued calcium acetate 667 mg tablet 667 mg PO TID acyclovir 200 mg capsule 200 mg PO TID finasteride 5 mg tablet 5 mg PO QDAY atorvastatin 20 mg tablet 20 mg PO QDAY Brukinsa 80 mg capsule 160 mg PO BID Referrals / Follow Up: Jose Miguel Herbert MD [Primary Care Provider] - Disposition Disposition (needs filled in before D/C Order can be placed): Home, Self Care 01/14/25 1610<Electronically signed by Alvarado Brody MD>Alvarado Brody MD CC: Dr. Jose Miguel Herbert MD ~ Signed [facility] Work Phone: [phone]) 714-421604-29-2025 Procedure note [facility] Medical Records Department [address] [place] [address] Operative Report 01/14/25 1747 MR#: [id number] Acct: [id number] Name: EDGAR HENDERSON Rep #:[id number] : 1950 74 From: Alvarado Brody MD PCP: Dr. Jose Miguel Herbert MD Status:[facility] Location: [place] [address] Operative Report (Standard) Operative Information Date of Procedure: 01/14/25 Pre-Operative Diagnosis: End-stage renal disease currently on dialysis Post-Operative Diagnosis: Same Surgery/Procedure Performed: Left upper arm AV graft placement with cadaver femoral-popliteal artery equipment operator: Yes Electrical Tester Battery: Mary Rapp Tasks completed by hospital administrative assistant: Opening, Closing, Opening & closing and Retracting Type of Anesthesia: General RN Documented Start/Stop Times: Operation Date: 01/14/25 12:00 Case Time Into Pre-Op 01/14/25 09:23 Out of Pre-Op 01/14/25 13:58 Anesthesia Start 01/14/25 14:00 Into Room 01/14/25 14:00 Procedure Start 01/14/25 14:23 Procedure End 01/14/25 16:22 Anesthesia End 01/14/25 16:31 Out of Room 01/14/25 16:31 Into Recovery 01/14/25 16:35 Out of Recovery 01/14/25 17:30 Into Phase II Recovery 01/14/25 17:31 Procedure Start Time: 14:20 Procedure Stop Time: 16:20 Select all DRAINS/GRAFTS/IMPLANTS that apply: Graft Graft details: Cadaver femoral-popliteal artery Estimated Blood Loss: 25 Specimen collected: No Description of surgery: HPI: Patient is a 74-year-old male with end-stage renal disease currently on dialysis via tunneled IJ catheter. He had vein mapping which revealed minimal reno-sparks vessel options with his best reno-sparks vessel in his dominant right upper extremity. He prefers to avoid his dominant extremity so he presents now for graft placement of the left upper extremity. Description of procedure: Upon obtaining form consent and verification correct patient procedure site the patient was taken to the operating where he was placed under general anesthesia. He was then positioned prepped and draped in usual sterile fashion a time was performed. The skin overlying the brachial artery in the distal forearm was anesthetized 1% lidocaine and a transverse incision made 1fingerbreadth superior to the antecubital crease. Bovie electrocautery used to dissect down throughthe subcutaneous tissue and self- retaining retractors put in position. Further dissection was then carried down to the fascia which was incised and self-retaining retractor moved deeper into the wound. Sharp dissection was used to dissect free the brachial artery proximal and distal and a right angle used to place a vessel loop with care taken to identify and protect adjacent nerve and vein structures. Next skin overlying the confluence of the basilic and brachial vein at the axilla was anesthetized 1% lidocaine and longitudinal incision created. Bovie electrocautery was then used to dissect down to the subcutaneous tissue and self-retaining retractor put in position. Sharp dissection was then used to incise the fascia and self-retaining retractors moved deeper into the wound withcare taken to identify and protect the adjacent nerves. The basilic vein just prior to its confluence with the brachial vein was dissected free and right angle used to place a vessel loop proximal and distal as well as around 2 large bridging veins. A Hart tunneler was then used to tunnel through the subcutaneous tissue on the anterior aspect of the upper arm over the bicep muscle. The cadaver graft was thawed per seismograph observer's instructions and the patient heparinized allowed to circulate for 3 minutes. The brachial artery wasthen occluded with Vesseloops and longitudinal arteriotomy created with 11 b ladeextended with the Pitts scissors. The graft was then anastomosed in [id number] with 5-0Prolene in a running fashion. After completing the suture linethe vessels were back flushed into the graft and the graft occluded just beyond the anastomosis with satisfactory stasis noted of the suture line. The graft was then marked to maintain orientation and secured to the tunneler then pulled through the subcutaneous tissue to the upper arm. The basilic vein was then occluded with Vesseloopsand longitudinal venotomy created with an 11 blade extended with Pitts scissors. The graft was thencut the length and beveled to match the venotomy. Distal anastomosis was then performed using a 5-0Prolene in a running fashion. Prior to completing the suture line the vessels were backbled after completing the suture line clamps removed and satisfactory stasiswas noted. There is a palpable thrill in the graft in the outflow vein and a palpable radial pulse at the wrist. Heparin was then reversed with protamine and incision inspected for hemostasis. The incision was then closed with 3-0 Vicryl followed by 4-0 Monocryl and Dermabond for the skin. The patient was then awakened from anesthesiaand taken the recovery room with anticipated discharge to home. Surgical Findings: Palpable thrill, palpable radial pulse Complications Complications: No 01/14/25 882 Cosigner Signature (if applicable): CC: Dr. Alvarado Brody MD; Dr. Jose Miguel Herbert MD~ Signed [facility]04-29-2025 Discharge summary [facility] Medical Records Department [address] [place] [address] Instructions for Home/Discharge Instructions 01/14/25 1607 MR#: [id number] Acct: [id number] Name: EDGAR HENDERSON Rep #:[id number] : 1950 74 From: Alvarado Brody MD PCP: Dr. Jose Miguel Herbert MD Status:[facility] Discharge Instructions Diet Discharge Diet: No restrictions Activity Lifting Restrictions: do not lift > 20 lbs with left arm for 3 weeks Additional Activity Instructions:: do not submerge incision for 3 weeks Dressing / Incision Call your doctor if your incision/area has: Sudden Increased Bleeding, IncreasedPain/ Swelling, Increased Redness and Foul Smelling Discharge Call your doctor if you observe: Coldness, Increased Pain and Numbness or Tingling Remove Dressing in: 2 days Cleanse incision/area with: Soap & Water Follow Up Care Test Results: Test results from this visit will be discussed in further detail at your follow- up appointment, if applicable. Discharge Plan Admission Attending Provider: Alvarado Brody Primary Care Provider: Jose Miguel Herbert Instructions Print Language: Citizen [place] Discharge Orders/Prescriptions Prescriptions: New oxycodone 5 mg tablet 5 mg PO Q8H PRN (Reason: pain) 2 Days Qty: 6 0RF Continued calcium acetate 667 mg tablet 667 mg PO TID acyclovir 200 mg capsule 200 mg PO TID finasteride 5 mg tablet 5 mg PO QDAY atorvastatin 20 mg tablet 20 mg PO QDAY Brukinsa 80 mg capsule 160 mg PO BID Referrals / Follow Up: Jose Miguel Herbert MD [Primary Care Provider] - Disposition Disposition (needs filled in before D/C Order can be placed): Home, Self Care 01/14/25 1610Alvarado Brody MD CC: Dr. Jose Miguel Herbert MD ~ [facility]04-29-2025 History and physical note Author Alvarado Brody [facility] Note Date/Time January 14, 2025 1:3 0pm [facility] Medical Records Department [address] [place] [address] History & Physical Exam 01/14/25 1326 MR#: [id number] Acct: [id number] Name: EDGAR HENDERSON Rep #:[id number] : 1950 74 From: Alvarado Brody MD PCP: Dr. Jose Miguel Herbert MD Status:[facility] Location: [address] HPI - General HPI Narrative EDGAR EHNDERSON, is a 74 M who presents with ESRD currently on dialysis. He has only right arm basilic vein suitable for reno-sparks fistula and does not wish to risk adverse outcome in his dominant arm. He presents for left arm AV graft withcadaver. [facility] Medical History Wears glasses Cancer Depression Bruising Ambulates with cane History of renal disease History of renal dialysis Low iron High cholesterol Loss of consciousness Hoarseness History of edema History of echocardiogram History of stress test Cardiology follow-up encounter History of hydrocele Amyloidosis (~2022) Lymphoma (~2022) Kidney disease Non-smoker Anemia Exertional dyspnea Acute kidney injury Guttate psoriasis BPH (benign prostatic hyperplasia) Home Medications ?Medication ?Instructions ?Recorded ?Last Taken ?Type acyclovir 200 mg capsule 200 mg PO TID 09/05/24 Unkno wn History atorvastatin 20 mg tablet 20 mg PO QDAY 09/05/24 Unkno wn History calcium acetate 667 mg tablet 667 mg PO TID 09/05/24 U nknown History finasteride 5 mg tablet 5 mg PO QDAY 09/05/24 Unknow n History zanubrutinib 80 mg capsule 160 mg PO BID 09/05/24 Unkn own History (Brukinsa) Allergy/AdvReac Type Severity Reaction Status Date / Time No Known Allergies Allergy Verified 01/14/25 09:54 Family History Father Heart disease Pacemaker Cancer hodgkins Sister Cancer non hodgkins Surgical History History of colonoscopy (~06/05/18) History of bilateral inguinal hernia repair (~2003) Social History Smoking Status: Never smoker ROS Constitutional Constitutional: Denies chills, fever(s), frequent falls, lethargy or weakness Eyes Eyes: Denies blind spots, change in vision or loss of vision ENT HEENT: Denies bleeding gums, hoarseness or sore throat Cardiovascular Cardiovascular: Denies abdominal pain, bluish discoloration of hand/feet, chest pain with activity, claudication, cold extremities, cyanosis, dyspnea on exertion, erythema on extremities, irregular heart rhythm, leg edema, leg ulcers, numbness in extremities or weakness in extremities Respiratory/Chest Respiratory/Chest: Denies cough, excessive phlegm production, shortness of breath at rest, shortness of breath with exertion or wheezing Gastrointestinal Gastrointestinal: Denies anorexia, change in stool character, constipation, diarrhea, melena or rectal bleeding Genitourinary Genitourinary: Denies dysuria or hematuria Musculoskeletal Musculoskeletal: Denies abnormal gait Integumentary Integumentary: Reports other Details: ; Denies erythema, non-healing lesions or wounds Neurologic Neurologic: Denies abnormal speech, focal weakness, headache(s), loss of vision,numbness, paresthesias or sensory deficit Hematologic/Lymphatic Hematologic/Lymphatic: Denies easy bleeding, easy bruising or lymphadenopathy Vital Signs Vital Signs Vital Signs: 01/14/25 09:55 01/14/25 09:55 01/14/25 10:31 Temperature 97.0 F L 97.0 F L Temperature Source Temporal Pulse Rate 66 66 Respiratory Rate 16 16 Respiratory Pattern Irregular Blood Pressure 125/65 H 125/65 H Blood Pressure Mean 85 Blood Pressure Source Monitor Blood Pressure Position Semi-Fowlers Blood Pressure Location Right Arm Pulse Ox 100 100 Oxygen Delivery Method Room Air Room Air Weight Weight: 121 lb 7.595 oz Body Mass Index (BMI) 18.4 Physical Exam Const alert, oriented x3, no apparent distress and healthy appearing General Appearance: cooperative; Negative for combative or lethargic Orientation / Consciousness: awake Exam Limitations: no limitations HEENT Head and Scalp: normocephalic and atraumatic Eyes EOMs intact bilaterally General Eye: normal appearance of both eyes Neck full ROM General: trachea midline Resp normal respiratory effort and no use of accessory muscles Effort and Inspection: Negative for labored, stridor or audible wheezes Cardio regular rate and regular rhythm Peripheral Pulses: brachial pulses present and radial pulses present Back/Spine Cervical Spine: cervical ROM normal Extremity full ROM, normal capillary refill and no clubbing, cyanosis or edema Skin no rashes or lesions noted and no wounds Neuro oriented x3, no focal motor deficits and no sensory deficits noted Psych thought process normal, cooperative, affect normal, speech normal and activity/motor behavior normal Assessment & Plan Assessment/Plan (1) ESRD (end stage renal disease) on dialysis: PLAN: -left arm AV graft 01/14/25 1330 <Electronically signed by Alvarado Brody MD> Cosigner Signature (if applicable): CC: Dr. Alvarado Brody MD; Dr. Jose Miguel Herbert MD~ Signed [facility] Work Phone: [phone] 309-416204-29-2025 NoteHNO ID: [id number] Author: GRICEL BRUNO LPN Service: ? Author Type: LICENSED NURSE Type: Progress Notes Filed: 01/14/2025 15:02 Note Text: Scan on 01/14/2025 1:36 PM by ProviderLázaro [facility]Cl[facility] 01-14-2025 History of Present illness Narrative* Gricel Bruno LPN - 01/14/2025 3:02 PM EDT Scan on 01/14/2025 1:36 PM by ProviderLázaro PA-C documented in this [facility]Prem[facility] History and physical note [facility] Medical Records Department [address] [place] [id number] History & Physical Exam 01/14/25 1326 MR#: [id number] Acct: [id number] Name: EDGAR HENDERSON Rep #:[id number] : 1950 74 From: Alvarado Brody MD PCP: Dr. Jose Miguel Herbert MD Status:[facility] Location: [place] [address] HPI - General HPI Narrative EDGAR HENDERSON, is a 74 M who presents with ESRD currently on dialysis. He has only right arm basilic vein suitable for re[place]-sparks fistula and does not wish to risk adverse outcome in his dominant arm. Hepresents for left arm AV graft withcadaver. [facility] Medical History Wears glasses Cancer Depression Bruising Ambulates with cane History of renal disease History of renal dialysis Low iron High cholesterol Loss of consciousness Hoarseness History of edema History of echocardiogram History of stress test Cardiology follow-up encounter History of hydrocele Amyloidosis (~2022) Lymphoma (~2022) Kidney disease Non-smoker Anemia Exertional dyspnea Acute kidney injury Guttate psoriasis BPH (benign prostatic hyperplasia) Home Medications ?Medication ?Instructions ?Recorded ?Last Taken ?Type acyclovir 200 mg capsule 200 mg PO TID 09/05/24 Unkno wn History atorvastatin 20 mg tablet 20 mg PO QDAY 09/05/24 Unkno wn History calcium acetate 667 mg tablet 667 mg PO TID 09/05/24 U nknown History finasteride 5 mg tablet 5 mg PO QDAY 09/05/24 Unknow n History zanubrutinib 80 mg capsule 160 mg PO BID 09/05/24 Unkn own History (Sohailkinsa) Allergy/AdvReac Type Severity Reaction Status Date / Time No Known Allergies Allergy Verified 01/14/25 09:54 Family History Father Heart disease Pacemaker Cancer hodgkins Sister Cancer non hodgkins Surgical History History of colonoscopy (~06/05/18) History of bilateral inguinal hernia repair (~2003) Social History Smoking Status: Never smoker ROS Constitutional Constitutional: Denies chills, fever(s), frequent falls, lethargy or weakness Eyes Eyes: Denies blind spots, change in vision or loss of vision ENT HEENT: Denies bleeding gums, hoarseness or sore throat Cardiovascular Cardiovascular: Denies abdominal pain, bluish discoloration of hand/feet, chest pain with activity,claudication, cold extremities, cyanosis, dyspnea on exertion, erythema on extremities, irregular heart rhythm, leg edema, leg ulcers, numbness in extremities or weakness in extremities Respiratory/Chest Respiratory/Chest: Denies cough, excessive phlegm production, shortness of breath at rest, shortness of breath with exertion or wheezing Gastrointestinal Gastrointestinal: Denies anorexia, change in stool character, constipation, diarrhea, melena or rectal bleeding Genitourinary Genitourinary: Denies dysuria or hematuria Musculoskeletal Musculoskeletal: Denies abnormal gait Integumentary Integumentary: Reports other Details: ; Denies erythema, non-healing lesions or wounds Neurologic Neurologic: Denies abnormal speech, focal weakness, headache(s), loss of vision,numbness, paresthesias or sensory deficit Hematologic/Lymphatic Hematologic/Lymphatic: Denies easy bleeding, easy bruising or lymphadenopathy Vital Signs Vital Signs Vital Signs: 01/14/25 09:55 01/14/25 09:55 01/14/25 10:31 Temperature 97.0 F L 97.0 F L Temperature Source Temporal Pulse Rate 66 66 Respiratory Rate 16 16 Respiratory Pattern Irregular Blood Pressure 125/65 H 125/65 H Blood Pressure Mean 85 Blood Pressure Source Monitor Blood Pressure Position Semi-Fowlers Blood Pressure Location Right Arm Pulse Ox 100 100 Oxygen Delivery Method Room Air Room Air Weight Weight: 121 lb 7.595 oz Body Mass Index (BMI) 18.4 Physical Exam Const alert, oriented x3, no apparent distress and healthy appearing General Appearance: cooperative; Negative for combative or lethargic Orientation / Consciousness: awake Exam Limitations: no limitations HEENT Head and Scalp: normocephalic and atraumatic Eyes EOMs intact bilaterally General Eye: normal appearance of both eyes Neck full ROM General: trachea midline Resp normal respiratory effort and no use of accessory muscles Effort and Inspection: Negative for labored, stridor or audible wheezes Cardio regular rate and regular rhythm Peripheral Pulses: brachial pulses present and radial pulses present Back/Spine Cervical Spine: cervical ROM normal Extremity full ROM, normal capillary refill and no clubbing, cyanosis or edema Skin no rashes or lesions noted and no wounds Neuro oriented x3, no focal motor deficits and no sensory deficits noted Psych thought process normal, cooperative, affect normal, speech normal and activity/motor behavior normal Assessment & Plan Assessment/Plan (1) ESRD (end stage renal disease) on dialysis: PLAN: -left arm AV graft 01/14/25 1330 Cosigner Signature (if applicable): CC: Dr. Alvarado Brody MD; Dr. Jose Miguel Herbert MD~ Signed [facility]04-29-2025 [facility] Medical Records Department [address] [place] [address] History Physical Exam 01/14/25 1326 MR#: [id number] Acct: [id number] Name: EDGAR HENDERSON Rep #: [id number] : 1950 74 From: Alvarado Brody MD PCP: Dr. Jose Miguel Herbert MD Status:[facility] Location: [address] HPI - General HPI Narrative EDGAR HENDERSON, is a 74 M who presents with ESRD currently on dialysis. He has only right arm basilic vein suitable for re[place]-sparks fistula and does not wish to risk adverse outcome in his dominant arm. He presents for left arm AV graft with cadaver. [facility] Medical History Wears glasses Cancer Depression Bruising Ambulates with cane History of renal disease History of renal dialysis Low iron High cholesterol Loss of consciousness Hoarseness History of edema History of echocardiogram History of stress test Cardiology follow-up encounter History of hydrocele Amyloidosis ( 2022) Lymphoma ( 2022) Kidney disease Non-smoker Anemia Exertional dyspnea Acute kidney injury Guttate psoriasis BPH (benign prostatic hyperplasia) Home Medications ???Medication ???Instructions ???Recorded ???Last Taken ???Type acyclovir 200 mg capsule 200 mg PO TID 09/05/24 Unknown His tory atorvastatin 20 mg tablet 20 mg PO QDAY 09/05/24 Unknown His tory calcium acetate 667 mg tablet 667 mg PO TID 09/05/24 Unknown His tory finasteride 5 mg tablet 5 mg PO QDAY 09/05/24 Unknown Hist ory zanubrutinib 80 mg capsule 160 mg PO BID 09/05/24 Unknown His tory (Brukinsa) Allergy/AdvReac Type Severity Reaction Status Date / Time No Known Allergies Allergy Verified 01/14/25 09:54 Family History Father Heart disease Pacemaker Cancer hodgkins Sister Cancer non hodgkins Surgical History History of colonoscopy ( 06/05/18) History of bilateral inguinal hernia repair ( 2003) Social History Smoking Status: Never smoker ROS Constitutional Constitutional: Denies chills, fever(s), frequent falls, lethargy or weakness Eyes Eyes: Denies blind spots, change in vision or loss of vision ENT HEENT: Denies bleeding gums, hoarseness or sore throat Cardiovascular Cardiovascular: Denies abdominal pain, bluish discoloration of hand/feet, chest pain with activity, claudication, cold extremities, cyanosis, dyspnea on exertion, erythema on extremities, irregular heart rhythm, leg edema, leg ulcers, numbness in extremities or weakness in extremities Respiratory/Chest Respiratory/Chest: Denies cough, excessive phlegm production, shortness of breath at rest, shortness of breath with exertion or wheezing Gastrointestinal Gastrointestinal: Denies anorexia, change in stool character, constipation, diarrhea, melena or rectal bleeding Genitourinary Genitourinary: Denies dysuria or hematuria Musculoskeletal Musculoskeletal: Denies abnormal gait Integumentary Integumentary: Reports other Details: ; Denies erythema, non-healing lesions or wounds Neurologic Neurologic: Denies abnormal speech, focal weakness, headache(s), loss of vision, numbness, paresthesias or sensory deficit Hematologic/Lymphatic Hematologic/Lymphatic: Denies easy bleeding, easy bruising or lymphadenopathy Vital Signs Vital Signs Vital Signs: 01/14/25 09:55 01/14/25 09:55 01/14/25 10:31 Temperature 97.0 F L 97.0 F L Temperature Source Temporal Pulse Rate 66 66 Respiratory Rate 16 16 Respiratory Pattern Irregular Blood Pressure 125/65 H 125/65 H Blood Pressure Mean 85 Blood Pressure Source Monitor Blood Pressure Position Semi-Fowlers Blood Pressure Location Right Arm Pulse Ox 100 100 Oxygen Delivery Method Room Air Room Air Weight Weight: 121 lb 7.595 oz Body Mass Index (BMI) 18.4 Physical Exam Const alert, oriented x3, no apparent distress and healthy appearing General Appearance: cooperative; Negative for combative or lethargic Orientation / Consciousness: awake Exam Limitations: no limitations HEENT Head and Scalp: normocephalic and atraumatic Eyes EOMs intact bilaterally General Eye: normal appearance of both eyes Neck full ROM General: trachea midline Resp normal respiratory effort and no use of accessory muscles Effort and Inspection: Negative for labored, stridor or audible wheezes Cardio regular rate and regular rhythm Peripheral Pulses: brachial pulses present and radial pulses present Back/Spine Cervical Spine: cervical ROM normal Extremity full ROM, normal capillary refill and no clubbing, cyanosis or edema Skin no rashes or lesions noted and no wounds N (more content not included)...[facility]04-29-2025 Consult note Author Jorge Alberto Chavez [facility] Note Date/Time January 14, 2025 10: 31am [facility] Medical Records Department [address] [place] [address] Pre-Anesthesia Evaluation 01/14/25 1021 MR#: [id number] Acct: [id number] Name: EDGAR HENDERSON Rep #:[id number] : 1950 74 From: Jorge Alberto Chavez MD PCP: Dr. Jose Miguel Herbert MD Status:[facility] Y Race: C Location: [place] [address] ASA Classification* ASA Classification ASA Classification: 3 Assessment & Plan Anesthesia* Anesthesia Assessment Anesthesia Assessment: Discussed sedation and/or anesthesia options, risks, benefits, and alternatives with patient/parents/legal guardian/POA. Questions invited. The patient/parents/legal guardian/POA seems to understand and agrees to proceedwith anesthesia plan. Reviewed the physical assessment, medical history, allergy history and patient home medications list prior to surgery/procedure/anesthetic and documented any changes. Performed airway and anesthesia risk assessments. Anesthesia Type Anesthesia Type: General History Source History Obtained from:: Patient and Chart Anesthesia Focused Assessment* Temperature: 97.0 F Pulse Rate: 66 Blood Pressure: 125/65 Respiratory Rate: 16 Pulse Ox: 100 Oxygen Delivery Method: Room Air Airway Assessment Mouth opens: >3 cm Mallampati Score: III Teeth Condition: Lower (Patient has a couple of implants lower jaw. They are both tight) Neck Range of motion (ROM): Full ROM Focused Labs Anesthesia Preop lab: CBC WBC 3.8 K/mm3 (4.4-11.0) L 01/10/25 12:22 01/10/25 RBC 2.67 M/mm3 (4.6-6.2) L 01/10/25 12:01/10/25 Hgb 9.2 g/dL (13.0-16.5) L 01/10/25 12:22 01/10/25 Hct 28.4 % (40-54) L 01/10/25 12:22 01/10/25 Plt Count 151 K/mm3 (150-450) 01/10/25 12:22 01/10/25 CHEMISTRY Potassium 4.3 mmol/L (3.3-5.1) 01/10/25 12:22 01/10/25 Sodium 134 mmol/L (136-145) L 12/18/23 10:20 12/18/23 BUN 18 mg/dL (4-19) 01/10/25 14:38 01/10/25 Creatinine 6.75 mg/dL (0.70-1.30) H 12/18/23 10:20 Glucose 143 mg/dL (74-106) H 12/18/23 10:20 12/18/23 TSH 3.58 uIU/mL (0.358-3.74) 03/17/23 11:30 COAG PT 13.8 SECONDS (11.7-14.9) 12/15/23 13:15 Pre-Assessment Diagnosis/Proposed Procedure Planned Operative Procedure(s): LEFT UPPER ARM AV GRAFT CREATION Anesthesia History 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 When Was Last Pacemaker Check QUESTION #4 FULL TEXT: You/Your Family Experience fever (hyperthermia) with Anesthesia Last Oral Intake Last Oral intake: Last Oral Intake NPO since 23:00 01/14/25 09:55 Meds taken in AM with sips of No 01/14/25 09:55 water? 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 Female No 12/31/24 09:16 HX of Motion Sickness No 12/31/24 09:16 HX of N/V After Surgery No 12/31/24 09:16 Non-Smoker Yes 12/31/24 09:16 Duration of Surgery greater No 12/31/24 09:16 than 60 minutes Number of Risk Factors 1 12/31/24 09:16 PONV Score Low Risk 12/31/24 09:16 Height & Weight Height & Weight: Anesthesia: Height & Weight Height 5 ft 8 in 01/14/25 09:55 Weight: 55.1 kg 01/14/25 09:55 Body Mass Index (BMI) 18.4 01/14/25 09:55 Respiratory Assessment Respiratory Assessment - raw mill operator: Respiratory Tract Infection Hx - raw mill operator Hx Respiratory Tract Infection No 12/31/24 09:16 STOP Sleep Apnea STOP Sleep Apnea - raw mill operator: STOP Sleep Apnea - raw mill operator Hx Hypertension No 12/31/24 09:16 Hx Sleep Apnea No 12/31/24 09:16 CPAP BIPAP Do you snore loudly (louder No 12/31/24 09:16 than talking or can be heard Do you often feel tired/ No 12/31/24 09:16 fatigued/ sleepy during daytime? Has anyone observed you stop No 12/31/24 09:16 breathing during sleep? STOP Results Negative 12/31/24 09:16 QUESTION #5 FULL TEXT : Do you snore loudly (louder than talking or can be heard through closed doors)? 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 Specify any problems Hx of Preganancy in last 3 N/A 12/31/24 09:16 Months Nurse Filling Out Transfusion [facility] 12/31/24 09:16 & Questions: Date: 12/31/24 12/31/24 09:16 Time: 09:34 12/31/24 09:16 Patient unable to answer at this time (ie. confused, unrespo /Reproduction History /Reproductive History - raw mill operator: /Reproductive Hx- raw mill operator Hx Now Gestational Age (in weeks): EDC: Hx Hx Para Hx Section SAB Active Medications Active Medications: Current Medications Generic Name Dose Route Start Last Admin Trade Name Freq PRN Reason Stop Dose Admin Cefazolin Sodium 2 gm/ Sodium 110 mls @ 150 mls/hr 01/14/25 12:00 Chloride IV 01/14/25 12:43 INTRAOP ONE Sodium Chloride 500 mls @ 0 mls/hr 01/14/25 09:30 01/14/25 10:19 IV 15 mls/hr .Q0M JASWANT Administration KVO PFSH Medical History Wears glasses Cancer Depression Bruising Ambulates with cane History of renal disease History of renal dialysis Low iron High cholesterol Loss of consciousness Hoarseness History of edema History of echocardiogram History of stress test Cardiology follow-up encounter History of hydrocele Amyloidosis (~2022) Lymphoma (~2022) Kidney disease Non-smoker Anemia Exertional dyspnea Acute kidney injury Guttate psoriasis BPH (benign prostatic hyperplasia) Home Medications ?Medication ?Instructions ?Recorded ?Last Taken ?Type acyclovir 200 mg capsule 200 mg PO TID 09/05/24 Unkno wn History atorvastatin 20 mg tablet 20 mg PO QDAY 09/05/24 Unkno wn History calcium acetate 667 mg tablet 667 mg PO TID 09/05/24 U nknown History finasteride 5 mg tablet 5 mg PO QDAY 09/05/24 Unknow n History zanubrutinib 80 mg capsule 160 mg PO BID 09/05/24 Unkn own History (Brukinsa) Allergy/AdvReac Type Severity Reaction Status Date / Time No Known Allergies Allergy Verified 01/14/25 09:54 Family History Father Heart disease Pacemaker Cancer hodgkins Sister Cancer non hodgkins Surgical History History of colonoscopy (~06/05/18) History of bilateral inguinal hernia repair (~2003) Social History Smoking Status: Never smoker Review of Systems (Anesthesia) ROS Narrative System reviewed and no additional complaints, except as documented. 01/14/25 1031 <Electronically signed by Jorge Alberto morales MD> Date _ Jorge Alberto Chavez MD Cosigner Signature: Date CC: ~ Signed [facility] Work Phone: 1(952) 472-481504-29-2025 Consult note [facility] Medical Records Department [address] [place] [address] Pre-Anesthesia Evaluation 01/14/25 1021 MR#: [id number] Acct: [id number] Name: EDGAR HENDERSON Rep #:[id number] : 1950 74 From: Jorge Alberto Chavez MD PCP: Dr. Jose Miguel Herbert MD Status:[facility] Y Race: C Location: [place] [address] ASA Classification* ASA Classification ASA Classification: 3 Assessment & Plan Anesthesia* Anesthesia Assessment Anesthesia Assessment: Discussed sedation and/or anesthesia options, risks, benefits, and alternatives with patient/parents/legal guardian/POA. Questions invited. The patient/parents/legal guardian/POA seems to understand and agrees to proceedwith anesthesia plan. Reviewed the physical assessment, medical history, allergy history and patient home medications list prior to surgery/procedure/anesthetic and documented any changes. Performed airway and anesthesia risk assessments. Anesthesia Type Anesthesia Type: General History Source History Obtained from:: Patient and Chart Anesthesia Focused Assessment* Temperature: 97.0 F Pulse Rate: 66 Blood Pressure: 125/65 Respiratory Rate: 16 Pulse Ox: 100 Oxygen Delivery Method: Room Air Airway Assessment Mouth opens: >3 cm Mallampati Score: III Teeth Condition: Lower (Patient has a couple of implants lower jaw. They are both tight) Neck Range of motion (ROM): Full ROM Focused Labs Anesthesia Preop lab: CBC WBC 3.8 K/mm3 (4.4-11.0) L 01/10/25 12:22 01/10/25 RBC 2.67 M/mm3 (4.6-6.2) L 01/10/25 12:22 01/10/25 Hgb 9.2 g/dL (13.0-16.5) L 01/10/25 12:22 01/10/25 Hct 28.4 % (40-54) L 01/10/25 12:22 01/10/25 Plt Count 151 K/mm3 (150-450) 01/10/25 12:22 01/10/25 CHEMISTRY Potassium 4.3 mmol/L (3.3-5.1) 01/10/25 12:22 01/10/25 Sodium 134 mmol/L (136-145) L 12/18/23 10:20 12/18/23 BUN 18 mg/dL (4-19) 01/10/25 14:38 01/10/25 Creatinine 6.75 mg/dL (0.70-1.30) H 12/18/23 10:20 Glucose 143 mg/dL (74-106) H 12/18/23 10:20 12/18/23 TSH 3.58 uIU/mL (0.358-3.74) 03/17/23 11:30 COAG PT 13.8 SECONDS (11.7-14.9) 12/15/23 13:15 Pre-Assessment Diagnosis/Proposed Procedure Planned Operative Procedure(s): LEFT UPPER ARM AV GRAFT CREATION Anesthesia History 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 When Was Last Pacemaker Check QUESTION #4 FULL TEXT: You/Your Family Experience fever (hyperthermia) with Anesthesia Last Oral Intake Last Oral intake: Last Oral Intake NPO since 23:00 01/14/25 09:55 Meds taken in AM with sips of No 01/14/25 09:55 water? 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 Female No 12/31/24 09:16 HX of Motion Sickness No 12/31/24 09:16 HX of N/V After Surgery No 12/31/24 09:16 Non-Smoker Yes 12/31/24 09:16 Duration of Surgery greater No 12/31/24 09:16 than 60 minutes Number of Risk Factors 1 12/31/24 09:16 PONV Score Low Risk 12/31/24 09:16 Height & Weight Height & Weight: Anesthesia: Height & Weight Height 5 ft 8 in 01/14/25 09:55 Weight: 55.1 kg 01/14/25 09:55 Body Mass Index (BMI) 18.4 01/14/25 09:55 Respiratory Assessment Respiratory Assessment - raw mill operator: Respiratory Tract Infection Hx - raw mill operator Hx Respiratory Tract Infection No 12/31/24 09:16 STOP Sleep Apnea STOP Sleep Apnea - raw mill operator: STOP Sleep Apnea - raw mill operator Hx Hypertension No 12/31/24 09:16 Hx Sleep Apnea No 12/31/24 09:16 CPAP BIPAP Do you snore loudly (louder No 12/31/24 09:16 than talking or can be heard Do you often feel tired/ No 12/31/24 09:16 fatigued/ sleepy during daytime? Has anyone observed you stop No 12/31/24 09:16 breathing during sleep? STOP Results Negative 12/31/24 09:16 QUESTION #5 FULL TEXT : Do you snore loudly (louder than talking or can be heard through closeddoors)? 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 Specify any problems Hx of Preganancy in last 3 N/A 12/31/24 09:16 Months Nurse Filling Out Transfusion [facility] 12/31/24 09:16 & Questions: Date: 12/31/24 12/31/24 09:16 Time: 09:34 12/31/24 09:16 Patient unable to answer at this time (ie. confused, unrespo /Reproduction History /Reproductive History - raw mill operator: /Reproductive Hx- raw mill operator Hx Now Gestational Age (in weeks): EDC: Hx Hx Para Hx Section SAB Active Medications Active Medications: Current Medications Generic Name Dose Route Start Last Admin Trade Name Freq PRN Reason Stop Dose Admin Cefazolin Sodium 2 gm/ Sodium 110 mls @ 150 mls/hr 01/14/25 12:00 Chloride IV 01/14/25 12:43 INTRAOP ONE Sodium Chloride 500 mls @ 0 mls/hr 01/14/25 09:30 01/14/25 10:19 IV 15 mls/hr .Q0M JASWANT Administration KVO PFSH Medical History Wears glasses Cancer Depression Bruising Ambulates with cane History of renal disease History of renal dialysis Low iron High cholesterol Loss of consciousness Hoarseness History of edema History of echocardiogram History of stress test Cardiology follow-up encounter History of hydrocele Amyloidosis (~2022) Lymphoma (~2022) Kidney disease Non-smoker Anemia Exertional dyspnea Acute kidney injury Guttate psoriasis BPH (benign prostatic hyperplasia) Home Medications ?Medication ?Instructions ?Recorded ?Last Taken ?Type acyclovir 200 mg capsule 200 mg PO TID 09/05/24 Unkno wn History atorvastatin 20 mg tablet 20 mg PO QDAY 09/05/24 Unkno wn History calcium acetate 667 mg tablet 667 mg PO TID 09/05/24 U nknown History finasteride 5 mg tablet 5 mg PO QDAY 09/05/24 Unknow n History zanubrutinib 80 mg capsule 160 mg PO BID 09/05/24 Unkn own History (Brukinsa) Allergy/AdvReac Type Severity Reaction Status Date / Time No Known Allergies Allergy Verified 01/14/25 09:54 Family History Father Heart disease Pacemaker Cancer hodgkins Sister Cancer non hodgkins Surgical History History of colonoscopy (~06/05/18) History of bilateral inguinal hernia repair (~2003) Social History Smoking Status: Never smoker Review of Systems (Anesthesia) ROS Narrative System reviewed and no additional complaints, except as documented. 01/14/25 1031 andrew JACKSON> Date _ Jorge Alberto Chavez MD Cosigner Signature: Date CC: ~ Signed [facility]04-29-2025 NoteHNO ID: [id number] Author: GRICEL BRUNO LPN Service: ? Author Type: LICENSED NURSE Type: Progress Notes Filed: 01/14/2025 10:28 Note Text: Scan on 01/13/2025 8:10 PM by Lázaro Cisse PA-C: [facility] History of Present illness Narrative* Gricel Bruno LPN - 01/14/2025 10:28 AM EDT Scan on 01/13/2025 8:10 PM by Lázaro Cisse PA-C: Chemistry documented in this encounterPrem[facility]04-15-2025 Telephone encounter Note * Telephone Encounter - Rhea Solis RN - 12/31/2024 3:22 PM EDT COLT Macias from [facility] called nurse line inquiring if pt was established in out office and most recent OV and cardiac testing. Pt is scheduled to have a dialysis catheter placed. Called [facility] [phone]. No answer left VM stating pt last OV and dates of his recent testing. Advised to call back if any further questions. [facility]04-15-2025 Miscellaneous Notes* Telephone Encounter - Rhea Solis RN - 12/31/2024 3:22 PM EDT COLT Macias from [facility] called nurse line inquiring if pt was established in out office and most recent OV and cardiac testing. Pt is scheduled to have a dialysis catheter placed. Called [facility] [phone]. No answer left VM stating pt last OV and dates of his recent testing. Advised to call back if any further questions. documented in this encounterPrem[facility]04-15-2025 Telephone encounter Note * Telephone Encounter - Orquidea Calhoun LPN - 12/31/2024 10:36 AM EDT Faxed. Orquidea Calhoun LPN [facility]04-15-2025 Miscellaneous Notes* Telephone Encounter - Orquidea Calhoun LPN - 12/31/2024 10:36 AM EDT Faxed. Orquidea Calhoun LPN * Telephone Encounter - Cynthia Reese - 12/31/2024 10:10 AM EDT Please fax 12/24 lab results- CBC/CMP to [phone] patient is having a dialysis cath placed. Anesthesiologist requesting to see labs. documented in this encounterPrem[facility]04-15-2025 Telephone encounter Note * Telephone Encounter - Cynthia Reese - 12/31/2024 10:10 AM EDT Please fax 12/24 lab results- CBC/CMP to [phone] patient is having a dialysis cath placed. Anesthesiologist requesting to see labs. [facility] Work Phone: [phone]) 154-623404-09-2025 NotePrem[facility]04-08-2025 Telephone encounter Note* Telephone Encounter - Sarah Chavez LPN - 12/24/2024 4:13 PM EDT Spoke with pt. Informed he is to hold his Brukinsa 1 week prior and 1 week after surgery. Pt. Voiced understanding Sarah Chavez LPN [facility]04-08-2025 Miscellaneous Notes* Telephone Encounter - Sarah Chavez LPN - 12/24/2024 4:13 PM EDT Spoke with pt. Informed he is to hold his Brukinsa 1 week prior and 1 week after surgery. Pt. Voiced understanding Sarah Chavez LPN * Telephone Encounter - Jose Hugo DO - 12/24/2024 4:03 PM EDT That is more of an involved procedure than tooth extraction. I recommend holding it a week prior tothe graft construction in a week after. * Telephone Encounter - Dina Tolentino RN - 12/24/2024 2:40 PM EDT Patient stated he is having a surgical procedure on 4/29; having a AV graft for dialysis. Patient is asking if he should hold the zanubrutinib 3 days before and 3 days after like he did for the toothextraction. Patient aware this nurse will discuss with Dr. Hugo and call back with further instructions. Dina Tolentino RN documented in this encounterPrem[facility]04-08-2025 Telephone encounter Note * Telephone Encounter - Jose Hugo DO - 12/24/2024 4:03 PM EDT That is more of an involved procedure than tooth extraction. I recommend holding it a week prior tothe graft construction in a week after. [facility]04-08-2025 Telephone encounter Note* Telephone Encounter - Dina Tolentino RN - 12/24/2024 2:40 PM EDT Patient stated he is having a surgical procedure on 01/14; having a AV graft for dialysis. Patient is asking if he should hold the zanubrutinib 3 days before and 3 days after like he did for the toothextraction. Patient aware this nurse will discuss with Dr. Hugo and call back with further instructions. Dina Tolentino RN [facility]03-18-2025 NotePrem[facility]03-18-2025 History of Present illness Narrative* oJse Hugo DO - 12/03/2024 10:49 AM EDT Diagnosis: 1) IgM kappa amyloidosis. HPI: The patient is a 74 yo male with a PMH significant for BPH. Had labs 03/17/2023 for upcoming annual appointment with Dr. Herbert. Per Dr. Herbert's recent eveluation: Patient ws recently sent to [facility] due to SINDI. BUN was 47 and Crewas 2.47 with potassium of 5.3. patient used Excedrin on occasion, maybe a few times a month if that. Denies chronic NSAID use. EKG in ER showed ST-T wave changes in the lateral leads. 2D echo was unremarkable with normal LV size, mod concentric VH, systolic function was normal with an EF of 65%, mild diastolic dysfunction. His Trop level was elevated but since the echo was ok. No further cardiacw/u was pursued. An US of the kidnies and bladder showed possible chronic kidney disease, no hydronephrosis. Chest x-ray was normal. Patient was not started on any medications to go home on. He has an appt tomorrow with renal. CBC showed WBC normal at 6.8, Hg slightly low at 12.5, MCV was normal. Differential was unremarkable. Sodium, potassium, LFT's and TSH were al ok. Patient has been experiencing fatigue over the last 6 months. Also noticed a changed in his voice in the past 6 months off and on with hoarseness. Food has been tasting metalic Very Dry mouth. Has to take sips of water to help food go down. No N/V, diarrhea, hematochezia or melena. Eating less; no appetite. Has lost approx 10 lbs in past 1-2 months. Urination increased but always feeling thristy Swelling in both ankles and legs since maybe the beginning of this past year. Increased SOB and muscle fatigue No chest pain Stopped exercising in January due to fatigue and weakness. In October while he was swimming he felt like he was swimming in [place]. No shortness of breath. Denied chest heaviness, tightness or palpitations. Echo at [facility]: Interpretation Summary Normal LV size. Moderate concentric left ventricular hypertrophy. Left ventricular systolic function is normal. The estimated ejection fraction is 65 %. Stage 1 diastolic dysfunction. Pulmonary artery systolic pressure is 28 mmHg. Contrast injection was performed. Hospitalized at [facility] 08/25/2023 through 09/19/2023 for nonischemic heart failure with preservedejection fraction, volume management and SINDI. Per discharge summary. Mr. 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 Volume statusvery difficult to assess due to baseline elevated creatinine and patient's cachectic habitus. Originally diuresed with sx improvement, but RHC demonstrated patient intravascularly depleted so diuresis held and given PRN small volume fluid boluses. Hospitalization c/b orthostatic hypotension and worsening of chronic urinary retention. Discharged on midodrine 5mg tid, and senior catheter in situ. # HFpEF - 02/2023 TTE: LVH, stage 1 diastolic dysfunction, EF 65% - 08/2023 TTE: EF 59%, Grade I left ventricular diastolic dysfunction, biventricular wall thickening - 09/01 RHC: Low normal biventricular filling pressures, Preserved CO/CI by Julián, reduced by TD Plan on discharge: - Hold diuretics iso orthostatic hypotension - Encourage PO intake #Orthostatic hypotension Multiple CMETs called during hospital course for syncope or near-syncope secondary to orthostatic hypotension. Etiology likely hypovolemia c/b AL amyloidosis with renal and cardiac involvement vs autonomic neuropathy vs post obstructive diuresis with volume depletion. Plan on discharge: - Midodrine 5 mg tid #Urinary retention 2/2 BPH #SINDI on CKD stage 4 2/2 AL amyloidosis - Cr 1.1 in 2021. In February 2023 he presented for an annual physical with his PCP and was found to have an SINDI with Cr 2.47. Since then, Cr has progressively up trended, and now it has stabilized at ~ 3.8-4, likely from Amyloidosis. - 08/28 US kidney/bladder: Markedly distended urinary bladder, perhaps chronic outlet obstruction due to BPH. Mild right hydroureteronephrosis, favored to be due to the markedly distended bladder. Nostones or left hydronephrosis. Increase in parenchymal echogenicity of kidneys due to underlying chronic kidney disease. - 09/01 US kidney/bladder: No hydronephrosis. Markedly dilated urinary bladder despite Senior catheter. Increased parenchymal echogenicity of kidneys secondary to underlying chronic kidney disease. 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 Diagnosed 03/2023 with kidney biopsy - Follows with Dr. Hugo (oncology) - Started on velcade, rituximab and dexamethasone in April 2023. Did not see much clinical improvement so was switched to Bendamustine 3 days ago (08/22/23) with a plan for Rituximab with cycle #2 per oncology notes - Heme/Onc consulted but determined no role for inpatient management Plan on discharge: - hematology follow-up outpatient #Malnutrition Likely secondary to amyloidosis and lymphoma, worsened iso acute illness. Plan: - Nutrition recommending daily Ensure Max and renal vitamin OPERATIONS/PROCEDURE DURING THIS HOSPITALIZATION: Procedure(s) (LRB): RIGHT HEART CATHETERIZATION INCLUDING MEASUREMENT OF OXYGEN SATURATION AND CARDIAC OUTPUT (N/A) Renvela was cost prohibitive. Using TUMS per nephrology recommendations. Midodrine 5 mg 3 times daily consistently. When he was tried on 10 mg, developed urinary retention. Previous therapy: 1) Bendamustine/rituximab. Current therapy: 1) Zanubrutinib. Started 04/2024. Presents for ongoing oncologic management. Interim history: Tolerating zanubrutinib very well with no subjective side effect. Had an episode of syncope in September at a restaurant. Otherwise no orthostasis in quite a while. Can still climb 3 flights of stairs to his apartment now. Appetite has been very good. Dry weight at dialysis up. Not short of breath with walking. No exertional chest pain or pressure. PMH, medications and allergies personally reviewed by me today. Any changes documented in appropriate section. Social History Tobacco Use Smoking status: Never Smokeless tobacco: Never Vaping Use Vaping status: Never Used Substance Use Topics Alcohol use: No Drug use: No Not . No children. Family History Problem Relation Age of Onset Prostate Cancer Father Heart Father Pacemaker Cancer Father Hodgkin's lymphoma None Sister other (non hodgkins lymphoma) Sister No Known Problems Maternal Grandmother No Known Problems Maternal Grandfather No Known Problems Paternal Grandmother No Known Problems Paternal Grandfather Coronary Artery Disease No Family History ROS: Constitutional: No fever. No drenching night sweats. Neuro: No recent SELF. HEENT: No recent change in vision or hearing. Resp: See HPI. CVS: No PND or orthopnea. GI: No dysphagia or odynophagia. No reflux. No abdominal pain, bloating or distension. No black or bloody stools. : No dysuria or gross hematuria. Endo: No hot flashes. Musculoskeletal: No bone, back, joint and muscular pain. Derm: No current rash. No history of jaundice. Heme: No unusual bleeding and unexplained bruising. Psych: Normal mood. PHYSICAL EXAM: Vitals: Blood pressure 92/56, pulse 81, temperature 36.2 C (97.2 F), temperature source Temporal, weight 56.2 kg (124 lb), SpO2 98%. Well-appearing and in no acute distress. EYES: Sclerae are anicteric bilaterally. LYMPHATIC: There is no palpable cervical or supraclavicular adenopathy. CARDIOVASCULAR: Rhythm is regular. ABDOMEN: The abdomen is nondistended. Extremities: No swelling or edema. SKIN: No jaundice. LABORATORY DATA: PATHOLOGY: Bone marrow biopsy 04/11/2023: A-C. 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 - Hypercellular bone marrow (60-70%) with maturing trilineage hematopoiesis. - Increased storage iron. - Positive for amyloid deposition (numerous blood vessels, [place] red stain confirmatory). - See comment. 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 Left kidney biopsy 04/14/2023: A. [facility] [place] left kidney biopsy: - [place] light chain amyloidosis extensively involving glomeruli, the tubulointerstitium and vessel cooper. - Tubular atrophy and interstitial fibrosis, moderate to severe. Light microscopy shows prominent amyloid accumulation within glomeruli, vessel cooper and in a patchy distribution in the tubulointerstitium. Immunofluorescence shows strong staining for kappa and essentially negative staining for the remaining tested reactants. Electron microscopy confirms the presence of 8 to 10 nm fibrosis characteristic of amyloidosis. 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 CARDIOLOGY: Echocardiogram 03/17/2023 done at [facility] demonstrated normal LV size with moderate concentric left ventricular hypertrophy and left ventricular systolic function normal with estimated ejection fraction 65%. Stage I diastolic dysfunction was observed. Pulmonary artery systolic pressure estimated at 28 mmHg. Echocardiogram same day demonstrated normal sinus rhythm with incomplete right bundle branch block ST and T wave abnormality, consider lateral ischemia, prolonged QT. Exercise stress test at [facility] 04/19/2023: Impression: 1. Inability to reach 85% of maximal age-predicted heart rate decreases the sensitivity of this test exercise tolerance test 2. Stress test is positive for exercise-induced EKG changes of ischemia. However the specificity ofthis finding is decreased because of baseline ST-T changes 3. The test test is negative for exercise-induced chest pain 4. Functional capacity is decreased for age 5. Nuclear images pending Myocardial perfusion imaging study: Technique: The patient was injected with 11.1 mCi of technetium 99m Cardiolite and subsequently rest SPECT Cardiolite nuclear imaging was obtained in the horizontal long, vertical long, and short axis views. The patient exercised on a Adria protocol. Please see above for details. The patient was injected with33.3 mCi of technetium 99m Cardiolite and subsequently stress SPECT Cardiolite nuclear imaging was obtained in the horizontal long, vertical long, and short axis views. A gated Cardiolite study at peak stress was obtained. Interpretation: Rest and stress SPECT Cardiolite nuclear imaging status post realignment, normalization, and attenuation correction, demonstrates mild decrease in the radioisotope uptake in the inferior wall prior to attenuation correction. After attenuation correction there is normal myocardial radioisotope uptake overall. These findings are suggestive of diaphragmatic attenuation artifact. The gated Cardiolitestudy demonstrates no significant regional wall motion abnormalities. The reported LVEF is 56%. Impression: 1. There is no definite evidence of ischemia. Please see the EKG portion of the test above as well.The sensitivity of this test is decreased because of inability to reach 85% of maximal age-predicted heart rate. 2. The gated Cardiolite study reports an LVEF of 56%. 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 Over several months prior to presentation he had been experiencing progressive constitutional symptoms of muscle weakness/fatigue, metallic taste, malaise and hoarseness. He was found to have azotemia. 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 -Baseline serum MP 0.7 g/dL. Baseline serum kappa free light chain 199.4 mg/dL. -CTs 04/06/2023 two small pulmonary nodules. No adenopathy or splenomegaly. -Again discussed items below and plan-- -Although the serum kappa light chain is still elevated, may be from end-stage renal disease at this point. IgM kappa on recent serum electrophoresis with no other change. -We will plan bone marrow biopsy if persists or worsens, but otherwise continue zanubrutinib. -Reviewed his BP log from dialysis. Scanned. Plan: -Continue zanubrutinib. -CBC and SPEP/immunofixation monthly for now. -Repeat bone marrow biopsy if evidence increasing trend monoclonal protein or kappa light chain. -Office visit in 3 months. -Echocardiogram. -Referral back to Dr. Reyes at [facility]. Portions of this documentation were copied and pasted from my previous office visit note dated 09/03/2024 in order to provide a cohesive continuity of the history. The note has been reviewed and edited and updated as necessary. Jose Hugo DO documented in this encounterPrem[facility]03-11-2025 History of Present illness Narrative* Yee Johnston - 11/26/2024 1:26 PM EDT [facility] Refill Assessment Medication(s): Brukinsa 80mg Patient's current medication list and adherence status to current therapy were reviewed by Specialty Pharmacy clinical pharmacist to identify any new drug interactions or non-compliance to therapy. Therapy continues to be appropriate for disease, patient response, and medical condition. Verification of therapeutic benefit and effectiveness with current therapy was completed. Adverse events, barriers in adherence, and side effects were assessed and addressed if applicable. Will proceed with refill with no changes in therapy - patient progressing towards achieving therapeutic goals based on medication- specific laboratory parameters, disease state markers and outcomes. Office/provider notes have been reviewed prior to dispensing the medication. Poll Clerk Assessment Patient confirmed: Yes Med/dose confirmed: Yes Supplies needed: No supplies needed Missed doses: No Estimated days supply on hand: 10 Copay amount: 0 Payment confirmed: Yes Delivery method: FedEx Signature required: Required (, Medicaid, patient preference) Delivery address: [address] [place] [address], [place], [place], [address] Delivery date: 12/05/24 Questions or concerns for the pharmacist?: No Did you have any side effects believed to be related to this medication, that resulted in hospitalization?: No Current Outpatient Medications on File Prior to Visit Medication Sig zanubrutinib (BRUKINSA) 80 mg cap(s) Take 2 capsules (160 mg) by mouth two times a day with a glassof water calcium acetate (CALPHRON) 667 mg tablet Take 667 mg by mouth three times a day with meals. acyclovir (ZOVIRAX) 200 mg capsule Take 1 capsule by mouth once daily. atorvastatin (LIPITOR) 20 mg tablet Take 1 tablet by mouth daily at bedtime. For cholesterol. finasteride (PROSCAR) 5 mg tablet Take 1 tablet by mouth once daily. No current facility-administered medications on file prior to visit. 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 Take c water. Storage: Rm temp; Food int: no grapefruit or [place] oranges; Avoid fish oil, vitamin E and flaxseed (increased bleeding risk) Aes: HTN, Rash, Inc Uric Acid, Diarrhea, Petechia, Cough, Muscle pain, Emetic pot: Minimal to low Baseline Labs: 04/18/24 - Scr (elevated d/t ESRD, CrCl is 14.3 ml/min - renal adj not specified), bili, AST, ALT, M protein, kappa light chains, lambda light chains, CBC No hx of a.fib DDI: NONE as of 04/25/24 Est. Tx Plan Start Date: No information available Estimated Start Date Info: No information available Est. Estimated Treatment Duration: Until disease progression or unacceptable toxicity Yee Johnston documented in this encounterPrem[facility]03-11-2025 NotePrem[facility]03-07-2025 Telephone encounter Note* Telephone Encounter - Dina Tolentino RN - 11/22/2024 1:25 PM EST Per [facility] response: The prescription insurance sent out a letter that the [facility] was no longer in network as of 12/13/2024. However our pharmacy is still in network for [facility] patients. He can continue to receive his medication from us without any interruptions. We are currently working with [employer]Ivelisse Lynch to resolve the issue. He is scheduled to receive a call from us toschedule his next delivery on 11/26 and the insurance processes with a $0 copay. Called patient, left a detailed message with the above message. Patient informed [facility] will reach out to him on 11/26 to schedule his next delivery. Called with any questions related to message. Dina Tolentino RN [facility]03-07-2025 Miscellaneous Notes* Telephone Encounter - Dina Tolentino RN - 11/22/2024 1:25 PM EST Per [facility] response: The prescription insurance sent out a letter that the [facility] was no longer in network as of 12/13/2024. However our pharmacy is still in network for [facility] patients. He can continue to receive his medication from us without any interruptions. We are currently working with Mari Lynch to resolve the issue. He is scheduled to receive a call from us toschedule his next delivery on 11/26 and the insurance processes with a $0 copay. Called patient, left a detailed message with the above message. Patient informed [facility] will reach out to him on 11/26 to schedule his next delivery. Called with any questions related to message. Dina Tolentino RN * Telephone Encounter - Dina Tolentino RN - 11/22/2024 11:32 AM EST Secure message sent to [facility] regarding this message. Dina Tolentino RN * Telephone Encounter - Cynthia Reese - 11/22/2024 8:37 AM EST Patient called stating Brukinsa no longer in his network towards end november. Patient asking for an alternate source. Please advise. Patient states he has dialysis at 1130 and will not be able to speak after that. documented in this encounterPremier Health [facility]03-07-2025 Telephone encounter Note * Telephone Encounter - Dina Tolentino RN - 11/22/2024 11:32 AM EST Secure message sent to [facility] regarding this message. Dina Tolentino RN [facility] [facility]03-07-2025 Telephone encounter Note* Telephone Encounter - Cynthia Reese - 11/22/2024 8:37 AM EST Patient called stating Sohailkinsa no longer in his network towards end november. Patient asking for an alternate source. Please advise. Patient states he has dialysis at 1130 and will not be able to speak after that. [facility] Work Phone: 1(708) 913-133002-20-2025 Evaluation note* Diagnosis Onset Date Resolution Status Admit Date ESRD (end stage renal disease) on dialysis chronic November 072024 2:07pm ESRD (end stage renal disease) on dialysis chronic January 14, 2025 9:09am [facility] Work Phone: 1(285) 978-598002-20-2025 Evaluation note* Diagnosis Onset Date Resolution Status Admit Date ESRD (end stage renal diseas e) on dialysis chronic November 07 2:07pm ESRD (end stage renal diseas e) on dialysis chronic January 14, 2025 9:09am Hemodialysis access, AV graft acute January 28, 2025 9:40am Hemodialysis access, AV graft acute February 13, 2025 10:22am [facility] Work Phone: 1(815) 564-313902-13-2025 History of Present illness Narrative* Phylicia Lr - 10/31/2024 1:23 PM EST [facility] Specialty Refill Assessment Medication(s): Brukinsa Patient's current medication list and adherence status to current therapy were reviewed by Specialty Pharmacy clinical pharmacist to identify any new drug interactions or non-compliance to therapy. Therapy continues to be appropriate for disease, patient response, and medical condition. Verification of therapeutic benefit and effectiveness with current therapy was completed. Adverse events, barriers in adherence, and side effects were assessed and addressed if applicable. Will proceed with refill with no changes in therapy - patient progressing towards achieving therapeutic goals based on medication- specific laboratory parameters, disease state markers and outcomes. Office/provider notes have been reviewed prior to dispensing the medication. Poll Clerk Assessment Patient confirmed: Yes Med/dose confirmed: Yes Supplies needed: No supplies needed Missed doses: Yes Count of missed doses: 1 Reason for missed doses: simply forgot to take it Estimated days supply on hand: 5 Copay amount: 0 Copay form of payment: Credit card on file Payment confirmed: Yes Delivery method: FedEx Signature required: Required ([facility], Medicaid, patient preference) Delivery address: [address] [place] [address] Delivery date: 11/02/24 Questions or concerns for the pharmacist?: No Did you have any side effects believed to be related to this medication, that resulted in hospitalization?: No Current Outpatient Medications on File Prior to Visit Medication Sig zanubrutinib (BRUKINSA) 80 mg cap(s) Take 2 capsules (160 mg) by mouth two times a day with a glassof water calcium acetate (CALPHRON) 667 mg tablet Take 667 mg by mouth three times a day with meals. acyclovir (ZOVIRAX) 200 mg capsule Take 1 capsule by mouth once daily. atorvastatin (LIPITOR) 20 mg tablet Take 1 tablet by mouth daily at bedtime. For cholesterol. finasteride (PROSCAR) 5 mg tablet Take 1 tablet by mouth once daily. No current facility-administered medications on file prior to visit. 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 Take c water. Storage: Rm temp; Food int: no grapefruit or [place] oranges; Avoid fish oil, vitamin E and flaxseed (increased bleeding risk) Aes: HTN, Rash, Inc Uric Acid, Diarrhea, Petechia, Cough, Muscle pain, Emetic pot: Minimal to low Baseline Labs: 04/18/24 - Scr (elevated d/t ESRD, CrCl is 14.3 ml/min - renal adj not specified), bili, AST, ALT, M protein, kappa light chains, lambda light chains, CBC No hx of a.fib DDI: NONE as of 04/25/24 Est. Tx Plan Start Date: No information available Estimated Start Date Info: No information available Est. Estimated Treatment Duration: Until disease progression or unacceptable toxicity Phylicia Lr documented [facility] History of Present illness Narrative* Yessica Hansen MD - 10/10/2024 1:40 PM EST Images from the original note were not included. [facility] [place] [facility] OUTPATIENT VISIT DATE 10/10/2024 OUTPATIENT VISIT TYPE ESTABLISHED PRIMARY CARE PHYSICIAN: Jose Miguel Herbert [address] [place] [address] Patient is being seen at the request of Self for follow-up. HISTORY OF PRESENT ILLNESS: Mr. 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 Follows with Dr. Chester Kwan, last seen on 05/12/2024. Plan at his last visit was to repeatECG and labs in 6 months He has been following with Dr. Hugo for his lymphoplasmacytic lymphoma. RHC 09/01/2023: Wedge 4, mean PA 7, CO 3.6/3.1 (Julián/TD) TTE 08/25/2023: EF 59%, grade 1 DD, GLS -16.1%, moderately dilated LA, dilated RA, trace MR, aorta 3.5, small pericardial effusion adjacent to RV measuring 0.4 cm, trivial pericardial effusion adjacent to LV EKG today: NSR HR 69, T WI V4-V6, mild TWI 2, 3, aVF He underwent exercise nuclear stress test on 04/19/2023. He was unable to reach 85% MPHR positive forexercise-induced EKG changes of ischemia however specificity of finding is decreased because of baseline ST-T changes. No definite evidence of ischemia. Sensitivity of test decreased because of inabil ity to reach 85% MPHR. EF 56%. 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 Allergic rhinitis due to other allergen Anemia 03/23/2023 Benign prostatic hyperplasia with urinary obstruction 05/17/[address] Shoemaker Bilateral leg edema 03/23/2023 Rt>Lt Black hairy tongue 05/27/2023 BPH without obstruction/lower urinary tract symptoms 05/17/2011 Cardiac amyloidosis (HCC) 08/18/2023 Chronic diastolic congestive heart failure ([facility]) 08/30/2023 CKD (chronic kidney disease) stage 5, GFR less than 15 ml/min ([facility]) 05/24/2023 Seeing renal: Dr. 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 Hyperlipidemia, mixed 06/26/2023 Internal hemorrhoids without mention of complication [place]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 Living will on file 01/27/2022 DPA: Bari Betancur (tip length checker) 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 Medicare annual wellness visit, subsequent 01/27/2022 Medicare Part B: 08/18/2017 Last done: 01/27/2022 NICM (nonischemic cardiomyopathy) (HCC) 05/24/2023 Obstructed, uropathy 08/29/2023 Secondary hyperparathyroidism, renal (HCC) 08/30/2023 Stage 3b chronic kidney disease (HCC) 05/24/2023 Urinary catheter change required 08/2023 PAST SURGICAL HISTORY Procedure Laterality Date COLONOSCOPY FLX DX W/COLLJ SPEC WHEN PFRMD 08/07/08 COLONOSCOPY FLX DX W/COLLJ SPEC WHEN PFRMD 06/07/2018 Colonoscopy RPR 1ST INGUN HRNA AGE 5 YRS/> REDUCIBLE Hernia repair, inguinal, bilateral SIGMOIDOSCOPY FLX DX W/COLLJ SPEC BR/WA IF PFRMD 2003 Sigmoidoscopy Social History Tobacco Use Smoking status: Never Smokeless tobacco: Never Vaping Use Vaping status: Never Used Substance Use Topics Alcohol use: No Drug use: No FAMILY HISTORY Problem Relation Age of Onset Prostate Cancer Father Heart Father Pacemaker Cancer Father Hodgkin's lymphoma None Sister other (non hodgkins lymphoma) Sister No Known Problems Maternal Grandmother No Known Problems Maternal Grandfather No Known Problems Paternal Grandmother No Known Problems Paternal Grandfather Coronary Artery Disease No Family History ALLERGIES No Known Allergies CURRENT MEDICATIONS: calcium acetate (CALPHRON) 667 mg tablet Take 667 mg by mouth three times a day with meals. acyclovir (ZOVIRAX) 200 mg capsule Take 1 capsule by mouth once daily. atorvastatin (LIPITOR) 20 mg tablet Take 1 tablet by mouth daily at bedtime. For cholesterol. finasteride (PROSCAR) 5 mg tablet Take 1 tablet by mouth once daily. zanubrutinib (BRUKINSA) 80 mg cap(s) Take 2 capsules (160 mg) by mouth two times a day with a glassof water PHYSICAL EXAMINATION: BP 122/74 Pulse 69 Ht 171.5 cm (5' 7.5) Wt 55 kg (121 lb 4.1 oz) SpO2 99% BMI 18.71 kg/m General: Appears comfortable in no apparent cardiopulmonary distress Neck: No JVD, no bruits CVS: S1, S2, No m/r/g Chest: CTAB Abd: Soft, nontender, no masses, BS present Ext: No pedal edema, pedal pulses 2+ bilaterally Neuro: No focal neurological deficits CARDIOVASCULAR MEDICINE TESTING: Last ECHO Result Conclusion ECHO Collected: 08/25/2023 3:59 PM (Final result) Impression: CONCLUSIONS: - Exam indication: HF - The left ventricle is normal in size. There is concentric left ventricular hypertrophy. Left ventricular systolic function is normal. EF = 59 5% (2D biplane) Grade I left ventricular diastolic dysfunction. -biventricular wall thickening, consider infiltrative cardiomyopathy - The right ventricle is normal in size. Right ventricular systolic function is normal. - The left atrial cavity is moderately dilated. - The right atrial cavity is dilated. - There are no significant valvular abnormalities. - Estimated right ventricular systolic pressure is likely underestimated due to a weak or incomplete tricuspid regurgitation signal and is, at least, 30 mmHg consistent with normal pulmonary artery pressures. Estimated right atrial pressure is 3 mmHg based on IVC assessment. - There are no signifcant respiratory variations through TV/MV. IVC measures normal and collapses >50%. - The patient has not had a prior CC echocardiographic exam for comparison. * * * Final * * * Last EKG Result Conclusion ECG COMPLETE Collected: 10/10/2024 2:50 PM (Preliminary result) Impression: NORMAL SINUS RHYTHM LATERAL T WAVE ABNORMALITY ABNORMAL ECG ASSESSMENT/PLAN: 1. AL amyloidosis (HCC) - ICD9: 277.39, ICD10: E85.81 (primary diagnosis) Follows with Dr. Eric Kwan as well as Dr. Hugo (09/03/24) -He recommended f/u with labs and EKG in 10/2024 - On zanubrutinib - He will follow up with Dr. Eric Kwan 2. Heart failure with preserved ejection fraction, unspecified HF chronicity (HCC) - ICD9: 428.9, ICD10: I50.30 Likely 2/2 amyloidosis Euvolemic on exam. Receives IHD. GDMT has been limited by Cr and BP. 3. Abnormal EKG - ICD9: 794.31, ICD10: R94.31 -Recommend exercise with conversion to Lexiscan nuclear stress test as needed, given he did not achieve 85% MPHR to this prior stress test. -He will let us know if he wishes to pursue this. Yessica Hansen MD, FAC documented in this encounterPrem[facility]01-23-[facility]25 NotePrem[facility]01-22-2025 NoteHNO ID: [id number] Author: GRICEL BRUNO LPN Service: ? Author Type: LICENSED NURSE Type: Progress Notes Filed: 10/09/2024 07:25 Note Text: Scan on 10/08/2024 4:33 PM by ProviderLázaro PA-C: [facility]oundPrem[facility]01-22-2025 History of Present illness Narrative* Gricel Bruno LPN - 10/09/2024 7:25 AM EST Scan on 10/08/2024 4:33 PM by ProviderLázaro PAJabariC: Ultrasound documented in this encounterPremier Health [facility]01-09-2025 History of Present illness Narrative* Phylicia Lr - 09/26/2024 12:49 PM EST [facility]ty Refill Assessment Medication(s): Brukinsa Patient's current medication list and adherence status to current therapy were reviewed by Specialty Pharmacy clinical pharmacist to identify any new drug interactions or non-compliance to therapy. Therapy continues to be appropriate for disease, patient response, and medical condition. Verification of therapeutic benefit and effectiveness with current therapy was completed. Adverse events, barriers in adherence, and side effects were assessed and addressed if applicable. Will proceed with refill with no changes in therapy - patient progressing towards achieving therapeutic goals based on medication- specific laboratory parameters, disease state markers and outcomes. Office/provider notes have been reviewed prior to dispensing the medication. Poll Clerk Assessment Patient confirmed: Yes Med/dose confirmed: Yes Supplies needed: No supplies needed Missed doses: No Estimated days supply on hand: 9 Copay amount: 0 Payment confirmed: Yes Delivery method: FedEx Signature required: Required (, Medicaid, patient preference) Delivery address: [address] [place] [id number] Delivery date: 10/01/24 Questions or concerns for the pharmacist?: No Did you have any side effects believed to be related to this medication, that resulted in hospitalization?: No Current Outpatient Medications on File Prior to Visit Medication Sig calcium acetate (CALPHRON) 667 mg tablet Take 667 mg by mouth three times a day with meals. acyclovir (ZOVIRAX) 200 mg capsule Take 1 capsule by mouth once daily. atorvastatin (LIPITOR) 20 mg tablet Take 1 tablet by mouth daily at bedtime. For cholesterol. finasteride (PROSCAR) 5 mg tablet Take 1 tablet by mouth once daily. zanubrutinib (BRUKINSA) 80 mg cap(s) Take 2 capsules (160 mg) by mouth two times a day with a glassof water midodrine (PROAMITINE) 5 mg tablet Take 1 tablet by mouth three times a day. (Patient not taking: Reported on 09/03/2024) No current facility-administered medications on file prior to visit. 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 Take c water. Storage: Rm temp; Food int: no grapefruit or [place] oranges; Avoid fish oil, vitamin E and flaxseed (increased bleeding risk) Aes: HTN, Rash, Inc Uric Acid, Diarrhea, Petechia, Cough, Muscle pain, Emetic pot: Minimal to low Baseline Labs: 04/18/24 - Scr (elevated d/t ESRD, CrCl is 14.3 ml/min - renal adj not specified), bili, AST, ALT, M protein, kappa light chains, lambda light chains, CBC No hx of a.fib DDI: NONE as of 04/25/24 Est. Tx Plan Start Date: No information available Estimated Start Date Info: No information available Est. Estimated Treatment Duration: Until disease progression or unacceptable toxicity Phylicia Lr documented in this encounterPremier Health [facility]01-09-2025 NotePrem[facility]12-17-2024 NotePrem[facility]12-17-2024 History of Present illness Narrative* Jose Hugo, DO - 09/03/2024 10:59 AM EST Diagnosis: 1) IgM kappa amyloidosis. HPI: The patient is a 73 yo male with a PMH significant for BPH. Had labs 03/17/2023 for upcoming annual appointment with Dr. Herbert. Per Dr. Herbert's recent eveluation: Patient ws recently sent to [facility] due to SINDI. BUN was 47 and Crewas 2.47 with potassium of 5.3. patient used Excedrin on occasion, maybe a few times a month if that. Denies chronic NSAID use. EKG in ER showed ST-T wave changes in the lateral leads. 2D echo was unremarkable with normal LV size, mod concentric VH, systolic function was normal with an EF of 65%, mild diastolic dysfunction. His Trop level was elevated but since the echo was ok. No further cardiacw/u was pursued. An US of the kidnies and bladder showed possible chronic kidney disease, no hydronephrosis. Chest x-ray was normal. Patient was not started on any medications to go home on. He has an appt tomorrow with renal. CBC showed WBC normal at 6.8, Hg slightly low at 12.5, MCV was normal. Differential was unremarkable. Sodium, potassium, LFT's and TSH were al ok. Patient has been experiencing fatigue over the last 6 months. Also noticed a changed in his voice in the past 6 months off and on with hoarseness. Food has been tasting metalic Very Dry mouth. Has to take sips of water to help food go down. No N/V, diarrhea, hematochezia or melena. Eating less; no appetite. Has lost approx 10 lbs in past 1-2 months. Urination increased but always feeling thristy Swelling in both ankles and legs since maybe the beginning of this past year. Increased SOB and muscle fatigue No chest pain Stopped exercising in January due to fatigue and weakness. In October while he was swimming he felt like he was swimming in [place]. No shortness of breath. Denied chest heaviness, tightness or palpitations. Echo at [facility]: Interpretation Summary Normal LV size. Moderate concentric left ventricular hypertrophy. Left ventricular systolic function is normal. The estimated ejection fraction is 65 %. Stage 1 diastolic dysfunction. Pulmonary artery systolic pressure is 28 mmHg. Contrast injection was performed. Hospitalized at [facility] 08/25/2023 through 09/19/2023 for nonischemic heart failure with preservedejection fraction, volume management and SINDI. Per discharge summary. Mr. 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 Volume statusvery difficult to assess due to baseline elevated creatinine and patient's cachectic habitus. Originally diuresed with sx improvement, but RHC demonstrated patient intravascularly depleted so diuresis held and given PRN small volume fluid boluses. Hospitalization c/b orthostatic hypotension and worsening of chronic urinary retention. Discharged on midodrine 5mg tid, and senior catheter in situ. # HFpEF - 02/2023 TTE: LVH, stage 1 diastolic dysfunction, EF 65% - 08/2023 TTE: EF 59%, Grade I left ventricular diastolic dysfunction, biventricular wall thickening - 09/01 RHC: Low normal biventricular filling pressures, Preserved CO/CI by Julián, reduced by TD Plan on discharge: - Hold diuretics iso orthostatic hypotension - Encourage PO intake #Orthostatic hypotension Multiple CMETs called during hospital course for syncope or near-syncope secondary to orthostatic hypotension. Etiology likely hypovolemia c/b AL amyloidosis with renal and cardiac involvement vs autonomic neuropathy vs post obstructive diuresis with volume depletion. Plan on discharge: - Midodrine 5 mg tid #Urinary retention 2/2 BPH #SINDI on CKD stage 4 2/2 AL amyloidosis - Cr 1.1 in 2021. In February 2023 he presented for an annual physical with his PCP and was found to have an SINDI with Cr 2.47. Since then, Cr has progressively up trended, and now it has stabilized at ~ 3.8-4, likely from Amyloidosis. - 08/28 US kidney/bladder: Markedly distended urinary bladder, perhaps chronic outlet obstruction due to BPH. Mild right hydroureteronephrosis, favored to be due to the markedly distended bladder. Nostones or left hydronephrosis. Increase in parenchymal echogenicity of kidneys due to underlying chronic kidney disease. - 09/01 US kidney/bladder: No hydronephrosis. Markedly dilated urinary bladder despite Senior catheter. Increased parenchymal echogenicity of kidneys secondary to underlying chronic kidney disease. 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 Diagnosed 03/2023 with kidney biopsy - Follows with Dr. Hugo (oncology) - Started on velcade, rituximab and dexamethasone in April 2023. Did not see much clinical improvement so was switched to Bendamustine 3 days ago (08/22/23) with a plan for Rituximab with cycle #2 per oncology notes - Heme/Onc consulted but determined no role for inpatient management Plan on discharge: - hematology follow-up outpatient #Malnutrition Likely secondary to amyloidosis and lymphoma, worsened iso acute illness. Plan: - Nutrition recommending daily Ensure Max and renal vitamin OPERATIONS/PROCEDURE DURING THIS HOSPITALIZATION: Procedure(s) (LRB): RIGHT HEART CATHETERIZATION INCLUDING MEASUREMENT OF OXYGEN SATURATION AND CARDIAC OUTPUT (N/A) Renvela was cost prohibitive. Using TUMS per nephrology recommendations. Midodrine 5 mg 3 times daily consistently. When he was tried on 10 mg, developed urinary retention. Previous therapy: 1) Bendamustine/rituximab. Current therapy: 1) Zanubrutinib. Started 04/2024. Presents for ongoing oncologic management. Interim history: Continues to tolerate zanubrutinib very well with no subjective side effect. No orthostasis in, a long time. Can climb 3 flights of stairs to his apartment now. Still wiped out after dialysis. Appetite has been good. Not short of breath with walking. No complaints of chest pain or pressure. Was getting SBPs at pre-dialysis in the 140s and was told to stop midodrine. PMH, medications and allergies personally reviewed by me today. Any changes documented in appropriate section. Social History Tobacco Use Smoking status: Never Smokeless tobacco: Never Vaping Use Vaping status: Never Used Substance Use Topics Alcohol use: No Drug use: No Not . No children. Family History Problem Relation Age of Onset Prostate Cancer Father Heart Father Pacemaker Cancer Father Hodgkin's lymphoma None Sister other (non hodgkins lymphoma) Sister Coronary Artery Disease No Family History ROS: Constitutional: No fever. No drenching night sweats. Neuro: No recent SELF. HEENT: No recent change in vision or hearing. Resp: See HPI. CVS: No PND or orthopnea. GI: No dysphagia or odynophagia. No reflux. No abdominal pain, bloating or distension. No black or bloody stools. : No dysuria or gross hematuria. Endo: No hot flashes. Musculoskeletal: No bone, back, joint and muscular pain. Derm: No current rash. No history of jaundice. Heme: No unusual bleeding and unexplained bruising. Psych: Normal mood. PHYSICAL EXAM: Vitals: Blood pressure 99/66, pulse 75, temperature 37.1 C (98.7 F), temperature source Temporal, height 170.2 cm (5' 7), weight 52.6 kg (116 lb), SpO2 100%. Thin and fatigued-appearing and in no acute distress. EYES: Sclerae are anicteric bilaterally. LYMPHATIC: There is no palpable cervical or supraclavicular adenopathy. RESPIRATORY: Inspiratory breath sounds are of normal intensity in all muñoz. No rales, wheezes or rhonchi. CARDIOVASCULAR: Rhythm is regular. ABDOMEN: The abdomen is nondistended. Extremities: No swelling or edema. SKIN: No jaundice or rash. LABORATORY DATA: PATHOLOGY: Bone marrow biopsy 04/11/2023: A-C. 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 - Hypercellular bone marrow (60-70%) with maturing trilineage hematopoiesis. - Increased storage iron. - Positive for amyloid deposition (numerous blood vessels, [place] red stain confirmatory). - See comment. 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 Left kidney biopsy 04/14/2023: A. [facility] [place] left kidney biopsy: - [place] light chain amyloidosis extensively involving glomeruli, the tubulointerstitium and vessel cooper. - Tubular atrophy and interstitial fibrosis, moderate to severe. Light microscopy shows prominent amyloid accumulation within glomeruli, vessel cooper and in a patchy distribution in the tubulointerstitium. Immunofluorescence shows strong staining for kappa and essentially negative staining for the remaining tested reactants. Electron microscopy confirms the presence of 8 to 10 nm fibrosis characteristic of amyloidosis. 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 CARDIOLOGY: Echocardiogram 03/17/2023 done at [facility] demonstrated normal LV size with moderate concentric left ventricular hypertrophy and left ventricular systolic function normal with estimated ejection fraction 65%. Stage I diastolic dysfunction was observed. Pulmonary artery systolic pressure estimated at 28 mmHg. Echocardiogram same day demonstrated normal sinus rhythm with incomplete right bundle branch block ST and T wave abnormality, consider lateral ischemia, prolonged QT. Exercise stress test at [facility] 04/19/2023: Impression: 1. Inability to reach 85% of maximal age-predicted heart rate decreases the sensitivity of this test exercise tolerance test 2. Stress test is positive for exercise-induced EKG changes of ischemia. However the specificity ofthis finding is decreased because of baseline ST-T changes 3. The test test is negative for exercise-induced chest pain 4. Functional capacity is decreased for age 5. Nuclear images pending Myocardial perfusion imaging study: Technique: The patient was injected with 11.1 mCi of technetium 99m Cardiolite and subsequently rest SPECT Cardiolite nuclear imaging was obtained in the horizontal long, vertical long, and short axis views. The patient exercised on a Adria protocol. Please see above for details. The patient was injected with33.3 mCi of technetium 99m Cardiolite and subsequently stress SPECT Cardiolite nuclear imaging was obtained in the horizontal long, vertical long, and short axis views. A gated Cardiolite study at peak stress was obtained. Interpretation: Rest and stress SPECT Cardiolite nuclear imaging status post realignment, normalization, and attenuation correction, demonstrates mild decrease in the radioisotope uptake in the inferior wall prior to attenuation correction. After attenuation correction there is normal myocardial radioisotope uptake overall. These findings are suggestive of diaphragmatic attenuation artifact. The gated Cardiolitestudy demonstrates no significant regional wall motion abnormalities. The reported LVEF is 56%. Impression: 1. There is no definite evidence of ischemia. Please see the EKG portion of the test above as well.The sensitivity of this test is decreased because of inability to reach 85% of maximal age-predicted heart rate. 2. The gated Cardiolite study reports an LVEF of 56%. ASSESSMENT/PLAN: (C83.00) 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(primary encounter diagnosis) (E85.81) AL amyloidosis (HCC) (E85.4, I43) Cardiac amyloidosis (HCC) Assessment: -The patient is a 73-year-old male with a past medical history significant for BPH. Over several months prior to presentation he had been experiencing progressive constitutional symptoms of muscle weakness/fatigue, metallic taste, malaise and hoarseness. He was found to have azotemia. -Work-up for SINDI significant for IgM kappa monoclonal protein. He had no diarrhea. No symptoms of sensory neuropathy. 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 -Baseline serum MP 0.7 g/dL. Baseline serum kappa free light chain 199.4 mg/dL. -CTs 04/06/2023 two small pulmonary nodules. No adenopathy or splenomegaly. -Although the serum kappa light chain is still elevated, may be from end-stage renal disease at this point. Immunofixation last detected IgM kappa monoclonal protein in February. Now picking up IgG kappaon serum electrophoresis. -We will plan bone marrow biopsy if persists or worsens, but otherwise continue zanubrutinib. -Reviewed his BP log from dialysis. Scanned. Plan: -Continue zanubrutinib. -CBC, CMP and SPEP/immunofixation in 3 months. -Office visit in 3 months. -Has cardiology follow-up scheduled in [place]. Portions of this documentation were copied and pasted from my previous office visit note dated 06/13/2024 in order to provide a cohesive continuity of the history. The note has been reviewed and edited and updated as necessary. I spent a total of 20 minutes on the date of the service which included preparing to see the patient, [id number] patient care, counseling and educating the patient/family/caregiver, communicating with other HCPs (not separately reported), and communicating results to the patient/family/caregiver. Jose Hguo DO documented in [facility] Telephone encounter Note* Telephone Encounter - Naa Randle - 08/08/2024 10:02 AM EST Please assist with refill request. Naa Ranlde [facility]11-21-2024 Miscellaneous Notes* Telephone Encounter - Naa Randle - 08/08/2024 10:02 AM EST Please assist with refill request. Naa Randle documented in this encounterPremier [facility]11-19-2024 Telephone encounter Note * Telephone Encounter - Jose Miguel Herbert MD - 08/06/2024 4:21 PM EST Orders placed for blood work to do on or after 01/17/2025 [facility]11-19-[facility] Miscellaneous Notes* Telephone Encounter - Jose Miguel Herbert MD - 08/06/2024 4:21 PM EST Orders placed for blood work to do on or after 01/17/2025 * Telephone Encounter - Cathie Rubin MA - 08/06/2024 4:[address] order for patient for his next 6 month visit. Cathie Rubin MA documented in this encounterPremier [facility]11-19-2024 Telephone encounter Note * Telephone Encounter - Cathie Rubin MA - 08/06/2024 4:14 PM EST [address] we [address] order for patient for his next 6 month visit. Cathei Rubin MA [facility]11-19-2024 Instructions* Patient Instructions* Jose Miguel Herbert MD - 08/06/2024 9:29 AM EST Consider getting the RSV vaccine at a local pharmacy. package pick up some over the counter Flonase. Shake bottle before each use. Use the opposite hand to squirt the opposite nostril. Place the tip of the Flonase straight into the nose not up into the nose. Doone spray each nostril either once or twice a day. Screening schedule The following prevention plan is recommended: Anxiety Screening Never done RSV Vaccine(1 - Risk 60-74 years 1-dose series) Never done Influenza Vaccine(1) due on 05/19/2024 Covid-19 Vaccine( season) due on 05/19/2024 WHAT YOU CAN DO TO PREVENT FALLS Many falls can be prevented. By making some changes, you can lower your chances of falling. Four things YOU can do to prevent falls for you* and your caregiver 1. Begin a regular exercise program Exercise is one of the most important ways to lower your chances of falling. It makes you stronger and helps you feel better. Exercises that improve balance and coordination (like Casimiro Chi) are the most helpful. Lack of exercise leads to weakness and increases your chances of falling. Ask your doctor or health care provider about the best type of exercise program for you. 2. Have your health care provider review your medicines Have your doctor or pharmacist review all the medicines you take, even [id number] medicines. As you get older, the way medicines work in your body can change. Some medicines, or combinations of medicines, can make you sleepy or dizzy andcan cause you to fall. 3. Have your vision checked Have your eyes checked by an eye doctor at least once a year. You may be wearing the wrong glasses or have a condition like glaucoma or cataracts that limits your vision. Poor vision can increase your chances of falling. 4. Make your home safer About half of all falls happen at home. To make your home safer: Remove things you can trip over (like papers, books, clothes, and shoes) from stairs and places where you walk. Remove small throw rugs or use double-sided tape to keep the rugs from slipping. Keep items you use often in cabinets you can reach easily without using a step stool. Have grab bars put in next to your toilet and in the tub or shower. Use non-slip mats in the bathtub and on shower floors. Improve the lighting in your home. As you get older, you need brighter lights to see well. Hang light-weight curtains or shades to reduce glare. Have handrails and lights put in on all staircases. Wear shoes both inside and outside the house. Avoid going barefoot or wearing slippers. For more information, contact: Centers for Disease Control and Prevention www.cdc.gov/injury * This information may not apply if you have certain medical conditions. documented in this encounterPremier [facility]11-19-2024 NotePrem[facility]11-19-20[facility] History of Present illness Narrative* Jose Miguel Herbert MD - 08/06/2024 9:10 AM EST Images from the original note were not included. Edgar Henderson is a 73 year old male here for a Medicare wellness visit. Medicare Health Risk Assessment General Health Poor Exercise: Minutes/Day 0 min Exercise: Days/Week 0 days Alcohol: Daily Use Never Alcohol: Drinks/Day Patient does not drink Alcohol: 6 or more drinks Never Feel off balance Yes (uses cane) Concerns: Teeth/Dentures No Concerns: Sexual function No Troubled by feelings None of the above Frequency: Eating healthy diet Several days ADLs requiring help None of the above Safety precautions in home/vehicle No Smoke, vape, chews tobacco No Difficulty hearing Yes Difficulty seeing No Current Providers Specialists: I have reviewed specialist-related care of the patient in the medical record. Current care team: Patient Care Team: Jose Miguel Herbert MD as PCP - General (Family Medicine) Dina Tolentino RN as Specialty Child Welfare Manager (Oncology) Jose Hugo DO as Physician (Hematology/Oncology) Denise Wagoner LISW as Horticulture Instructor (Hematology/Oncology) Chester Patel MD (Cardiology) Justa Tucker (Inactive) Laverne Ramirez MD as Referring (Internal Medicine) Jose Miguel Herbert MD as Home Care Provider (Family Medicine) Gumaro Pérez DO (Nephrology) Medical/Family history review Reviewed and updated problem list, medical/surgical/family/social history, medications, and allergies. Opioid use review Opioid Medications (last 90 days) No data to display Anxiety/Depression screening PHQ-2 Score: 0 (Lower risk for depression) Recommendation: no further intervention at this time Cognitive screening Score: 5 Cognitive screening reviewed and No further action needed (score 3-5). Functional Observation Was the patient's Timed Up & Go test unsteady or >= 12 seconds? No Advance Care Planning Surrogate decision maker and/or advance care plan documented Measurements BP 120/82 Pulse 72 Resp 16 Ht 171.5 cm (5' 7.5) Wt 50.3 kg (111 lb) BMI 17.13 kg/m Vision Screening: Follows with optometry/ophthalmology Assessment/Plan Medicare annual wellness visit, subsequent (Z00.00) - Counseled on healthy diet and regular exercise - Fall avoidance information provided - Personalized prevention plan provided See below. Chief Complaint Patient presents with: Medicare Wellness Exam HPI Edgar Henderson is a 73 year old male who presents here today for Chronic Medical Conditions. and Medicare Annual Visit. Patient with Hx of abnormal thyroid lab, Al amyloidisis, Anemia, leg edema, [place] light chain disease, lymphoplasmacytic lymphoma, nonischemic cardiomyopathy, CKD, BPH as those as reviewed bellow Patient was recently diagnosed with the amyloidosis, CKD, kappa light chain disease and lymphoplastic lymphoma and is set up with specialists for care. Patient is in remission. Patient has progressed onto stage 5 CKD and will most likely be beginning dialysis in the next few months. Is supposed to here from vascular. Patient has his flu shot about 1 month ago and his dialysis center. Past medical history, appointments, medications, allergies reviewed. Previous Medical History 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 Allergic rhinitis due to other allergen Anemia 03/23/2023 Benign prostatic hyperplasia with urinary obstruction 05/17/[address] Shoemaker Bilateral leg edema 03/23/2023 Rt>Lt Black hairy tongue 05/27/2023 BPH without obstruction/lower urinary tract symptoms 05/17/2011 Cardiac amyloidosis (HCC) 08/18/2023 Chronic diastolic congestive heart failure (HCC) 08/30/2023 CKD (chronic kidney disease) stage 5, GFR less than 15 ml/min (HCC) 05/24/2023 Seeing renal: Dr. 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 Living will on file 01/27/2022 DPA: Bari Betancur (tip length checker) 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 Medicare annual wellness visit, subsequent 01/27/2022 Medicare Part B: 08/18/2017 Last done: 01/27/2022 NICM (nonischemic cardiomyopathy) (HCC) 05/24/2023 Obstructed, uropathy 08/29/2023 Secondary hyperparathyroidism, renal (HCC) 08/30/2023 Stage 3b chronic kidney disease (HCC) 05/24/2023 Urinary catheter change required 08/2023 Previous Surgical History PAST SURGICAL HISTORY Procedure Laterality Date COLONOSCOPY FLX DX W/COLLJ SPEC WHEN PFRMD 08/07/08 COLONOSCOPY FLX DX W/COLLJ SPEC WHEN PFRMD 06/07/2018 Colonoscopy RPR 1ST INGUN HRNA AGE 5 YRS/> REDUCIBLE Hernia repair, inguinal, bilateral SIGMOIDOSCOPY FLX DX W/COLLJ SPEC BR/WA IF PFRMD 2002 Sigmoidoscopy Family History FAMILY HISTORY Problem Relation Age of Onset Prostate Cancer Father Heart Father Pacemaker Cancer Father Hodgkin's lymphoma None Sister other (non hodgkins lymphoma) Sister Coronary Artery Disease No Family History Patient Allergies ALLERGIES No Known Allergies Current Medications Current Outpatient Medications on File Prior to Visit Medication Sig finasteride (PROSCAR) 5 mg tablet Take 1 tablet by mouth once daily. diphenhydrAMINE (BENADRYL ALLERGY) 25 mg tablet Take 25 mg by mouth daily at bedtime. (Patient not taking: Reported on 06/13/2024) zanubrutinib (BRUKINSA) 80 mg cap(s) Take 2 capsules (160 mg) by mouth two times a day with a glassof water atorvastatin (LIPITOR) 20 mg tablet Take 1 tablet by mouth daily at bedtime. For cholesterol. calcium acetate,phosphat bind, (PHOSLO) 667 mg capsule Take 667 mg by mouth three times a day. (Patient not taking: Reported on 06/13/2024) midodrine (PROAMITINE) 5 mg tablet Take 1 tablet by mouth three times a day. acyclovir (ZOVIRAX) 200 mg capsule Take 1 capsule by mouth once daily. No current facility-administered medications on file prior to visit. Social History Social History Tobacco Use Smoking status: Never Smokeless tobacco: Never Vaping Use Vaping status: Never Used Substance Use Topics Alcohol use: No Drug use: No Review of Symptoms REVIEW OF SYSTEMS GENERAL: No weight loss, malaise or fevers HEENT: Negative for frequent or significant headaches, No changes in vision, no nose bleeds or other nasal problems. Left ear feels blocked. On 07/18/2024 went to ENT and had ear cleaning. NECK: Negative for lumps, goiter, pain and significant neck swelling RESPIRATORY: Negative for cough, hemoptysis, no increased wheezing, COPD, dyspnea or shortness of breath CARDIOVASCULAR: Negative for chest pain, leg swelling, hypertension, CHF or palpitations GI: No nausea, vomiting, or diarrhea, No heartburn or reflux symptoms, and no blood : No history of dysuria, frequency or blood MUSCULOSKELETAL: Negative for joint pain or swelling, back pain or muscle pain SKIN: Negative for lesions, rash, and itching PSYCH: Negative for sleep disturbance, no new stressors. HEMATOLOGY/LYMPHOLOGY: Negative for prolonged bleeding, bruising easily or swollen nodes ENDOCRINE: Negative for cold or heat intolerance, polyuria, polydipsia and goiter NEURO: No history of headaches, syncope, paralysis, seizures or tremors EXAM: BP 120/82 Pulse 72 Resp 16 Ht 171.5 cm (5' 7.5) Wt 50.3 kg (111 lb) BMI 17.13 kg/m Last 5 Encounter Wt Readings: Date: Wt: 08/06/2024 50.3 kg (111 lb) 06/13/2024 46.9 kg (103 lb 8 oz) 05/16/2024 45.8 kg (101 lb) 04/25/2024 46.3 kg (102 lb) 04/18/2024 46 kg (101 lb 8 oz) General Appearance: Well appearing, alert, in no acute distress, well-hydrated, thin. . Skin: Skin color, texture, turgor normal, no suspicious rashes or lesions. Head: Normocephalic, no masses, lesions, tenderness or abnormalities. Eyes: Anicteric sclera. Pupils are equally round and reactive to light. Extraocular movements are intact. . Ears: External ears, TM's normal, canals clear. Nose/Sinuses: Nares normal, septum midline, mucosa normal, no drainage or sinus tenderness. Oropharynx: Lips, mucosa, and tongue normal, teeth and gums normal, oropharynx normal. Neck: Supple, no adenopathy; thyroid symmetric, normal size, no bruits. Lungs: Lungs clear to auscultation. No wheezing, rhonchi, rales.. Heart: RRR without murmur, gallop, or rubs. No ectopy. Abdomen: Normal abdominal exam, Abdomen soft, non-tender. Bowel sounds normal. No masses, organomegaly. Extremities: No deformities, edema, skin discoloration, Good capillary refill. . Musculoskeletal: Muscular strength intact, No joint swelling, deformity, or tenderness. Peripheral Pulses: Normal. Neurologic: Gait normal. Reflexes normal and symmetric. Sensation to light touch and crainal nerves2-12 intact.. Genitalia: Normal, Penis normal. No urethral discharge. Scrotum normal to palpation. No hernia.. Health Maintenance List Anxiety Screening Never done RSV Vaccine(1 - Risk 60-74 years 1-dose series) Never done Influenza Vaccine(1) due on 05/19/2024 Covid-19 Vaccine(2023- season) due on 05/19/2024 Annual PCP Team Chronic Disease Visit due on 11/28/2024 Serum Creatinine due on 07/18/2025 Hemoglobin/Hematocrit due on 07/18/2025 Diabetes Screening due on 08/01/2027 Colorectal Cancer Screening due on 06/07/2028 Lipid Screening due on 08/01/2029 DTaP,Tdap,Td Vaccine(3 - Td or Tdap) due on 02/28/2033 Advance Directive Discussion Completed Shingrix Vaccine Completed Pneumococcal Vaccine: 65+ Completed HPV Vaccine Aged Out Hepatitis C Screening Discontinued Data reviewed Latest Ref Rng 12/05/2023 05/16/2024 06/13/2024 07/18/2024 08/01/2024 WBC 3.70 - 11.00 k/uL 4.84 5.25 RBC 4.20 - 6.00 m/uL 3.28 (L) 3.24 (L) Hemoglobin 13.0 - 17.0 g/dL 11.0 (L) 10.8 (L) Hematocrit 39.0 - 51.0 % 34.0 (L) 33.8 (L) MCV 80.0 - 100.0 fL 103.7 (H) 104.3 (H) MCH 26.0 - 34.0 pg 33.5 33.3 MCHC 30.5 - 36.0 g/dL 32.4 32.0 RDW-CV 11.5 - 15.0 % 15.3 (H) 15.3 (H) Platelet Count 150 - 400 k/uL 142 (L) 163 MPV 9.0 - 12.7 fL 10.4 10.2 Neut% % 64.4 73.4 Abs Neut (ANC) 1.45 - 7.50 k/uL 3.12 3.85 Lymph% % 12.6 9.1 Abs Lymph 1.00 - 4.00 k/uL 0.61 (L) 0.48 (L) [place]% % 14.9 13.1 Abs [place] <0.87 k/uL 0.72 0.69 Eosin% % 6.2 2.7 Abs Eosin <0.46 k/uL 0.30 0.14 Baso% % 1.7 1.5 Abs Baso <0.11 k/uL 0.08 0.08 Immature Gran % % 0.2 0.2 IMMATURE GRANS (ABS) <0.10 k/uL <0.03 <0.03 NRBC /100 WBC 0.0 0.0 Absolute nRBC <0.01 k/uL <0.01 <0.01 DTYPE Auto Auto Protein, Total 6.3 - 8.0 g/dL 6.0 (L) 5.8 (L) Albumin 3.9 - 4.9 g/dL 3.9 3.8 (L) Calcium 8.5 - 10.2 mg/dL 9.7 9.3 Bilirubin, Total 0.2 - 1.3 mg/dL 0.3 0.3 Alkaline Phosphatase 38 - 113 U/L 112 114 (H) AST 14 - 40 U/L 31 23 ALT 10 - 54 U/L 35 22 Glucose 74 - 99 mg/dL 88 148 (H) BUN 9 - 24 mg/dL 40 (H) 47 (H) Creatinine 0.73 - 1.22 mg/dL 3.70 (H) 3.46 (H) Sodium 136 - 144 mmol/L 141 141 Potassium 3.7 - 5.1 mmol/L 4.4 3.9 Chloride 98 - 107 mmol/L 99 98 CO2 22 - 30 mmol/L 31 (H) 29 Anion Gap 8 - 15 mmol/L 11 14 eGFR >=60 mL/min/1.73m 17 (L) 18 (L) Total Cholesterol, Nonfasting <200 mg/dL 186 190 Triglycerides, Nonfasting <150 mg/dL 108 61 HDL Cholesterol, Nonfasting >39 mg/dL 79 80 LDL Cholesterol, Nonfasting <100 mg/dL 85 98 Non HDL Cholesterol, Nonfasting <130 mg/dL 107 110 VLDL Cholesterol, Nonfasting <30 mg/dL 22 12 Total Chol/HDL Ratio, Nonfasting <5.10 mg/dL 2.35 2.38 LDL/HDL Ratio, Nonfasting <2.54 mg/dL 1.08 1.23 Hemoglobin A1C 4.3 - 5.6 % 5.7 (H) 5.4 Estimated Average Glucose mg/dL 117 108 TSH 0.270 - 4.200 mIU/L 1.950 Free T4 0.9 - 1.7 ng/dL 1.2 A/P ASSESSMENT/PLAN: 1. Medicare annual wellness visit, subsequent - ICD9: V70.0, ICD10: Z00.00 (primary diagnosis) - Counseled on healthy diet and regular exercise - Patient counseled on and acknowledged vaccine benefits/risks/side effects; VIS provided: COVID-19 - Follow up for annual exam in one year - advised on RSV vaccine 2. Hyperlipidemia, mixed - ICD9: 272.2, ICD10: E78.2 - Controlled - Continue current medications - Counseled on healthy diet and regular exercise 3. Elevated hemoglobin A1c - ICD9: 790.29, ICD10: R73.09 - improved with diet. In a normal range this time. 4. Abnormal thyroid blood test - ICD9: 790.6, ICD10: R79.89 - recent labs were ok. Will monitor. 5. Bilateral leg edema - ICD9: 782.3, ICD10: R60.0 - none on exam. 6. AL amyloidosis (HCC) - ICD9: 277.39, ICD10: E85.81 - following with Cardio and renal 7. Cardiac amyloidosis (HCC) - ICD9: 277.39, 425.7, ICD10: E85.4, I43 - following with cardio 8. Chronic diastolic congestive heart failure (HCC) - ICD9: 428.32, 428.0, ICD10: I50.32 - as per #7 9. NICM (nonischemic cardiomyopathy) (HCC) - ICD9: 425.4, ICD10: I42.8 - as per #7 10. CKD (chronic kidney disease) stage 5, GFR less than 15 ml/min (HCC) - ICD9: 585.5, ICD10: N18.5 - patient current on dialysis 3 days a week and follows with renal 11. ESRD (end stage renal disease) (HCC) - ICD9: 585.6, ICD10: N18.6 - as per #10 12. Secondary hyperparathyroidism, renal (HCC) - ICD9: 588.81, ICD10: N25.81 - as per #10 13. 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- ICD9: 200.80, ICD10: C83.00 - as per #13 15. Anemia, unspecified type - ICD9: 285.9, ICD10: D64.9 - as per #13 16. Benign prostatic hyperplasia with urinary obstruction - ICD9: 600.01, 599.69, ICD10: N40.1, N13.8 - stable and seeing urology 17. Dysfunction of left eustachian tube - ICD9: 381.81, ICD10: H69.92 - discussed trial oif Darlene. 18. Encounter for screening examination for other mental health and behavioral disorders - ICD9: V79.8, ICD10: Z13.39 - done 19. Encounter for immunization - ICD9: V03.89, ICD10: Z23 - PFIZER-BIONTECH COVID-19 VACCINE AGE 12+ YR (COMIRNATY): given F/u 6 months routine. I spent a total of 40 minutes on the date of the service which included preparing to see the patient, [id number] patient care, completing clinical documentation, performing a medically appropriate examination, counseling and educating the patient/family/caregiver and ordering medications, tests, or procedures. Jose Miguel Herbert MD The sensitive examination was discussed with the Patient or Patient's Authorized Logistic Manager. Asapplicable, any other physician, advance practice provider, medical student, or other health professional student that will be observing or involved in the sensitive examination for educational or training purposes was discussed with the Patient or Authorized Logistic Manager. The Patient or Authorized Logistic Manager has agreed to proceed with the sensitive examination. (Sensitive examination includes inspection and/or palpation of the breasts, pelvis, prostate and anorectal regions) documented in this encounterPrem[facility]11-[facility]-2024 Telephone encounter Note * Telephone Encounter - Naa Ford RN - 07/31/2024 12:32 PM EST TC patient, left detailed message for patient on identified voicemail that lab orders placed and that if he has any questions to call back and speak with a nurse. Naa Ford RN [facility] [facility]11-13-[facility]24 Miscellaneous Notes* Telephone Encounter - Naa Ford RN - 07/31/2024 12:32 PM EST TC patient, left detailed message for patient on identified voicemail that lab orders placed and that if he has any questions to call back and speak with a nurse. Naa Ford RN * Telephone Encounter - Sheree Fabian PA-C - 07/31/2024 12:28 PM EST Labs placed. Sheree Fabian PA-C * Telephone Encounter - Naa Ford RN - 07/31/2024 10:07 AM EST Patient calls and states that he has medicare wellness exam on 08/06/2024. Patient asking if provider will order labs so that he can have them done prior to appointment? Please review and advise, Naa Ford RN documented in [facility]Prem[facility] Telephone encounter Note * Telephone Encounter - Sheree Fabian PA-C - 07/31/2024 12:28 PM EST Labs placed. Sheree Fabian PA-C [facility]11-13-2024 Telephone encounter Note* Telephone Encounter - Naa Ford RN - 07/31/2024 10:07 AM EST Patient calls and states that he has medicare wellness exam on 08/06/2024. Patient asking if provider will order labs so that he can have them done prior to appointment? Please review and advise, Naa Ford RN [facility]11-07-2024 History of Present illness Narrative* Phylicia Lr - 07/25/2024 1:36 PM EST [facility] Refill Assessment Medication(s): Brukinsa Patient's current medication list and adherence status to current therapy were reviewed by Specialty Pharmacy clinical pharmacist to identify any new drug interactions or non-compliance to therapy. Therapy continues to be appropriate for disease, patient response, and medical condition. Verification of therapeutic benefit and effectiveness with current therapy was completed. Adverse events, barriers in adherence, and side effects were assessed and addressed if applicable. Will proceed with refill with no changes in therapy - patient progressing towards achieving therapeutic goals based on medication- specific laboratory parameters, disease state markers and outcomes. Office/provider notes have been reviewed prior to dispensing the medication. Poll Clerk Assessment Patient confirmed: Yes Med/dose confirmed: Yes Supplies needed: No supplies needed Missed doses: No Estimated days supply on hand: 10 Copay amount: 0 Payment confirmed: Yes Delivery method: FedEx Signature required: No Delivery address: [address] [place], [place] [id number] Delivery date: 07/27/24 Questions or concerns for the pharmacist?: No Did you have any side effects believed to be related to this medication, that resulted in hospitalization?: No Current Outpatient Medications on File Prior to Visit Medication Sig finasteride (PROSCAR) 5 mg tablet Take 1 tablet by mouth once daily. diphenhydrAMINE (BENADRYL ALLERGY) 25 mg tablet Take 25 mg by mouth daily at bedtime. (Patient not taking: Reported on 06/13/2024) zanubrutinib (BRUKINSA) 80 mg cap(s) Take 2 capsules (160 mg) by mouth two times a day with a glassof water atorvastatin (LIPITOR) 20 mg tablet Take 1 tablet by mouth daily at bedtime. For cholesterol. calcium acetate,phosphat bind, (PHOSLO) 667 mg capsule Take 667 mg by mouth three times a day. (Patient not taking: Reported on 06/13/2024) midodrine (PROAMITINE) 5 mg tablet Take 1 tablet by mouth three times a day. acyclovir (ZOVIRAX) 200 mg capsule Take 1 capsule by mouth once daily. No current facility-administered medications on file prior to visit. 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 Take c water. Storage: Rm temp; Food int: no grapefruit or [place] oranges; Avoid fish oil, vitamin E and flaxseed (increased bleeding risk) Aes: HTN, Rash, Inc Uric Acid, Diarrhea, Petechia, Cough, Muscle pain, Emetic pot: Minimal to low Baseline Labs: 04/18/24 - Scr (elevated d/t ESRD, CrCl is 14.3 ml/min - renal adj not specified), bili, AST, ALT, M protein, kappa light chains, lambda light chains, CBC No hx of a.fib DDI: NONE as of 04/25/24 Est. Tx Plan Start Date: No information available Estimated Start Date Info: No information available Est. Estimated Treatment Duration: Until disease progression or unacceptable toxicity Phylicia Lr documented [facility]Prem[facility] Telephone encounter Note* Telephone Encounter - Cass Jacobs LPN - 07/15/2024 10:41 AM EDT Are you willing to prescribe this? Last prescribed by Dr. Gumaro Pérez. Patient has not follow up with him. Cass Jacobs LPN [facility]10-28-2024 Miscellaneous Notes* Telephone Encounter - Cass Jacobs LPN - 07/15/2024 10:41 AM EDT Are you willing to prescribe this? Last prescribed by Dr. Gumaro Pérez. Patient has not follow up with him. Cass Jacobs LPN * Telephone Encounter - Cynthia Reese - 07/15/2024 9:56 AM EDT Patient has been identified by name and date of : Yes Last office visit in this department: Visit date not found RX INSTRUCTIONS: Patient aware RX will be sent to pharmacy. No need to notify patient. Patient phones requesting refills as follows: Requested Prescriptions Pending Prescriptions Disp Refills finasteride (PROSCAR) 5 mg tablet 90 tablet 2 Sig: Take 1 tablet by mouth once daily. Please review and advise. Cynthia Fragoso documented in this encounterPremier [facility]10-28-2024 Telephone encounter Note * Telephone Encounter - Cynthia Reese - 07/15/2024 10:05 AM EDT Scheduled [facility] Work Phone: [phone] Miscellaneous Notes* Telephone Encounter - Cynthia Reese - 07/15/2024 10:05 AM EDT Scheduled * Telephone Encounter - Orquidea Calhoun LPN - 07/15/2024 10:01 AM EDT Noted. Can you make him a lab apt anyway, just pick a random time in the afternoon so his name willbe on my list to watch for. Thanks. Orquidea Calhoun LPN * Telephone Encounter - Cynthia Reese - 07/15/2024 9:57 AM EDT Patient called stating he will be in on to have labs. Patient did not want to schedule. States he will do walk in. * Telephone Encounter - Cynthia Reese - 07/12/2024 12:14 PM EDT 1st attempt. Message left for patient to contact office to reschedule 07/11 lab appointment. CBC/MYELOMA LABS - NO URINE* * Telephone Encounter - Orquidea Calhoun LPN - 07/12/2024 10:47 AM EDT Pt missed his lab apt yesterday, please assist pt in rescheduling. Orquidea Calhoun LPN documented in this encounterPrem[facility]10-[facility] Telephone encounter Note * Telephone Encounter - Orquidea Calhoun LPN - 07/15/2024 10:01 AM EDT Noted. Can you make him a lab apt anyway, just pick a random time in the afternoon so his name willbe on my list to watch for. Thanks. Orquidea Calhoun LPN [facility]10-28-2024 Telephone encounter Note* Telephone Encounter - Cynthia Reese - 07/15/2024 9:57 AM EDT Patient called stating he will be in on to have labs. Patient did not want to schedule. States he will do walk in. [facility]10-28-2024 Telephone encounter Note* Telephone Encounter - Cynthia Reese - 07/15/2024 9:56 AM EDT Patient has been identified by name and date of : Yes Last office visit in this department: Visit date not found RX INSTRUCTIONS: Patient aware RX will be sent to pharmacy. No need to notify patient. Patient phones requesting refills as follows: Requested Prescriptions Pending Prescriptions Disp Refills finasteride (PROSCAR) 5 mg tablet 90 tablet 2 Sig: Take 1 tablet by mouth once daily. Please review and advise. Cynthia Fragoso [facility] Work Phone: [phone] Telephone encounter Note* Telephone Encounter - Cynthia Reese - 07/12/2024 12:14 PM EDT 1st attempt. Message left for patient to contact office to reschedule 07/11 lab appointment. CBC/MYELOMA LABS - NO URINE* [facility]10-25-2024 Telephone encounter Note* Telephone Encounter - Orquidea Calhoun LPN - 07/12/2024 10:47 AM EDT Pt missed his lab apt yesterday, please assist pt in rescheduling. Orquidea Calhoun LPN [facility]10-04-2024 History of Present illness Narrative* Phylicia Lr - 06/21/2024 11:10 AM EDT [facility] Refill Assessment Medication(s): Bettina Patient's current medication list and adherence status to current therapy were reviewed by Specialty Pharmacy clinical pharmacist to identify any new drug interactions or non-compliance to therapy. Therapy continues to be appropriate for disease, patient response, and medical condition. Verification of therapeutic benefit and effectiveness with current therapy was completed. Adverse events, barriers in adherence, and side effects were assessed and addressed if applicable. Will proceed with refill with no changes in therapy - patient progressing towards achieving therapeutic goals based on medication- specific laboratory parameters, disease state markers and outcomes. Office/provider notes have been reviewed prior to dispensing the medication. Poll Clerk Assessment Patient confirmed: Yes Med/dose confirmed: Yes Supplies needed: No supplies needed Missed doses: Yes Count of missed doses: 7 Reason for missed doses: had a dental procedure done held doses Estimated days supply on hand: 14 Copay amount: 0 Payment confirmed: Yes Delivery method: FedEx Signature required: No Delivery address: [address] [place], [place] [id number] Delivery date: 06/29/24 Questions or concerns for the pharmacist?: No Did you have any side effects believed to be related to this medication, that resulted in hospitalization?: No Current Outpatient Medications on File Prior to Visit Medication Sig diphenhydrAMINE (BENADRYL ALLERGY) 25 mg tablet Take 25 mg by mouth daily at bedtime. (Patient not taking: Reported on 06/13/2024) zanubrutinib (BRUKINSA) 80 mg cap(s) Take 2 capsules (160 mg) by mouth two times a day with a glassof water atorvastatin (LIPITOR) 20 mg tablet Take 1 tablet by mouth daily at bedtime. For cholesterol. calcium acetate,phosphat bind, (PHOSLO) 667 mg capsule Take 667 mg by mouth three times a day. (Patient not taking: Reported on 06/13/2024) midodrine (PROAMITINE) 5 mg tablet Take 1 tablet by mouth three times a day. finasteride (PROSCAR) 5 mg tablet Take 1 tablet by mouth once daily. acyclovir (ZOVIRAX) 200 mg capsule Take 1 capsule by mouth once daily. No current facility-administered medications on file prior to visit. 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 Take c water. Storage: Rm temp; Food int: no grapefruit or [place] oranges; Avoid fish oil, vitamin E and flaxseed (increased bleeding risk) Aes: HTN, Rash, Inc Uric Acid, Diarrhea, Petechia, Cough, Muscle pain, Emetic pot: Minimal to low Baseline Labs: 04/18/24 - Scr (elevated d/t ESRD, CrCl is 14.3 ml/min - renal adj not specified), bili, AST, ALT, M protein, kappa light chains, lambda light chains, CBC No hx of a.fib DDI: NONE as of 04/25/24 Est. Tx Plan Start Date: No information available Estimated Start Date Info: No information available Est. Estimated Treatment Duration: Until disease progression or unacceptable toxicity Phylicia Lr documented in this encounterPrem[facility]10-04-2024 NotePrem[facility]10-03-2024 Telephone encounter Note* Telephone Encounter - Naa Randle - 06/20/2024 10:10 AM EDT Spoke with patient, advising below. Patient stated understanding. Naa Randle [facility]10-03-2024 Miscellaneous Notes* Telephone Encounter - Naa Randle - 06/20/2024 10:10 AM EDT Spoke with patient, advising below. Patient stated understanding. Naa Randle * Telephone Encounter - Jose Hugo DO - 06/20/2024 10:08 AM EDT You can let him know that I asked Dr. Reyes the performance consultant at [facility] if it would be okay to see a performance consultant in the region and he said that would be okay. Jose Hugo DO * Telephone Encounter - Naa Randle - 06/20/2024 9:16 AM EDT Spoke with patient and labs are scheduled. Patient is glad to be in remission, but is questioning changing the cardiologists. The cardiologisthe was seeing at [facility] specialized amyloidosis and patient is wondering if it is perez to change to another performance consultant that may not specialized in amyloidosis. Please advise. Naa Randle Patient is scheduled to see Dr. Hansen in September in [place]. Cass Jacobs LPN * Telephone Encounter - Jose Hugo DO - 06/19/2024 5:43 PM EDT Per my recent AVS. Monthly CBC/MM labs (no urine). OV/CBC/CMP/MM labs (no urine) in 3 months. Referral to cardiology at [place] for cardiomyopathy. I do not see that he is scheduled for monthly labs. documented in [facility] encounterPrem[facility]-2024 Telephone encounter Note * Telephone Encounter - Jose Hugo DO - 06/20/2024 10:08 AM EDT You can let him know that I asked Dr. Reyes the performance consultant at [facility] if it would be okay to see a performance consultant in the region and he said that would be okay. Jose Hugo DO [facility]10-03-2024 Telephone encounter Note* Telephone Encounter - Naa Randle - 06/20/2024 9:16 AM EDT Spoke with patient and labs are scheduled. Patient is glad to be in remission, but is questioning changing the cardiologists. The cardiologisthe was seeing at [facility] specialized amyloidosis and patient is wondering if it is perez to change to another performance consultant that may not specialized in amyloidosis. Please advise. Naa Randle Patient is scheduled to see Dr. Hansen in September in [place]. Cass Jacobs LPN [facility]10-02-2024 Telephone encounter Note* Telephone Encounter - Jose Hugo DO - 06/19/2024 5:43 PM EDT Per my recent AVS. Monthly CBC/MM labs (no urine). OV/CBC/CMP/MM labs (no urine) in 3 months. Referral to cardiology at [place] for cardiomyopathy. I do not see that he is scheduled for monthly labs. [facility]09-26-2024 NotePrem[facility]09-26-2024 History of Present illness Narrative* Jose Hugo DO - 06/13/2024 11:48 AM EDT Diagnosis: 1) IgM kappa amyloidosis. HPI: The patient is a 73 yo male with a PMH significant for BPH. Had labs 03/17/2023 for upcoming annual appointment with Dr. Herbert. Per Dr. Herbert's recent eveluation: Patient ws recently sent to [facility] due to SINDI. BUN was 47 and Crewas 2.47 with potassium of 5.3. patient used Excedrin on occasion, maybe a few times a month if that. Denies chronic NSAID use. EKG in ER showed ST-T wave changes in the lateral leads. 2D echo was unremarkable with normal LV size, mod concentric VH, systolic function was normal with an EF of 65%, mild diastolic dysfunction. His Trop level was elevated but since the echo was ok. No further cardiacw/u was pursued. An US of the kidnies and bladder showed possible chronic kidney disease, no hydronephrosis. Chest x-ray was normal. Patient was not started on any medications to go home on. He has an appt tomorrow with renal. CBC showed WBC normal at 6.8, Hg slightly low at 12.5, MCV was normal. Differential was unremarkable. Sodium, potassium, LFT's and TSH were al ok. Patient has been experiencing fatigue over the last 6 months. Also noticed a changed in his voice in the past 6 months off and on with hoarseness. Food has been tasting metalic Very Dry mouth. Has to take sips of water to help food go down. No N/V, diarrhea, hematochezia or melena. Eating less; no appetite. Has lost approx 10 lbs in past 1-2 months. Urination increased but always feeling thristy Swelling in both ankles and legs since maybe the beginning of this past year. Increased SOB and muscle fatigue No chest pain Stopped exercising in January due to fatigue and weakness. In October while he was swimming he felt like he was swimming in [employer]. No shortness of breath. Denied chest heaviness, tightness or palpitations. Echo at [facility]: Interpretation Summary Normal LV size. Moderate concentric left ventricular hypertrophy. Left ventricular systolic function is normal. The estimated ejection fraction is 65 %. Stage 1 diastolic dysfunction. Pulmonary artery systolic pressure is 28 mmHg. Contrast injection was performed. Hospitalized at [facility] 08/25/2023 through 09/19/2023 for nonischemic heart failure with preservedejection fraction, volume management and SINDI. Per discharge summary. Mr. 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 Volume statusvery difficult to assess due to baseline elevated creatinine and patient's cachectic habitus. Originally diuresed with sx improvement, but RHC demonstrated patient intravascularly depleted so diuresis held and given PRN small volume fluid boluses. Hospitalization c/b orthostatic hypotension and worsening of chronic urinary retention. Discharged on midodrine 5mg tid, and senior catheter in situ. # HFpEF - 02/2023 TTE: LVH, stage 1 diastolic dysfunction, EF 65% - 08/2023 TTE: EF 59%, Grade I left ventricular diastolic dysfunction, biventricular wall thickening - 09/01 RHC: Low normal biventricular filling pressures, Preserved CO/CI by Julián, reduced by TD Plan on discharge: - Hold diuretics iso orthostatic hypotension - Encourage PO intake #Orthostatic hypotension Multiple CMETs called during hospital course for syncope or near-syncope secondary to orthostatic hypotension. Etiology likely hypovolemia c/b AL amyloidosis with renal and cardiac involvement vs autonomic neuropathy vs post obstructive diuresis with volume depletion. Plan on discharge: - Midodrine 5 mg tid #Urinary retention 2/2 BPH #SINDI on CKD stage 4 2/2 AL amyloidosis - Cr 1.1 in 2021. In February 2023 he presented for an annual physical with his PCP and was found to have an SINDI with Cr 2.47. Since then, Cr has progressively up trended, and now it has stabilized at ~ 3.8-4, likely from Amyloidosis. - 08/28 US kidney/bladder: Markedly distended urinary bladder, perhaps chronic outlet obstruction due to BPH. Mild right hydroureteronephrosis, favored to be due to the markedly distended bladder. Nostones or left hydronephrosis. Increase in parenchymal echogenicity of kidneys due to underlying chronic kidney disease. - 09/01 US kidney/bladder: No hydronephrosis. Markedly dilated urinary bladder despite Senior catheter. Increased parenchymal echogenicity of kidneys secondary to underlying chronic kidney disease. 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 Diagnosed 03/2023 with kidney biopsy - Follows with Dr. Hugo (oncology) - Started on velcade, rituximab and dexamethasone in April 2023. Did not see much clinical improvement so was switched to Bendamustine 3 days ago (08/22/23) with a plan for Rituximab with cycle #2 per oncology notes - Heme/Onc consulted but determined no role for inpatient management Plan on discharge: - hematology follow-up outpatient #Malnutrition Likely secondary to amyloidosis and lymphoma, worsened iso acute illness. Plan: - Nutrition recommending daily Ensure Max and renal vitamin OPERATIONS/PROCEDURE DURING THIS HOSPITALIZATION: Procedure(s) (LRB): RIGHT HEART CATHETERIZATION INCLUDING MEASUREMENT OF OXYGEN SATURATION AND CARDIAC OUTPUT (N/A) Renvela was cost prohibitive. Using TUMS per nephrology recommendations. Midodrine 5 mg 3 times daily consistently. When he was tried on 10 mg, developed urinary retention. Previous therapy: 1) Bendamustine/rituximab. Current therapy: 1) Zanubrutinib. Presents for ongoing oncologic management. Interim history: Tolerating zanubrutinib very well with no subjective side effect. Has not been having orthostasis. He is wiped out after dialysis however. Other days are better. Appetite has been good. Not short of breath with walking. No complaints of chest pain or pressure. PMH, medications and allergies personally reviewed by me today. Any changes documented in appropriate section. Social History Tobacco Use Smoking status: Never Smokeless tobacco: Never Vaping Use Vaping status: Never Used Substance Use Topics Alcohol use: No Drug use: No Not . No children. Family History Problem Relation Age of Onset Prostate Cancer Father Heart Father Pacemaker Cancer Father Hodgkin's lymphoma None Sister other (non hodgkins lymphoma) Sister Coronary Artery Disease No Family History ROS: Constitutional: No fever. No drenching night sweats. Neuro: No recent SELF. HEENT: No recent change in vision or hearing. Resp: See HPI. CVS: No PND or orthopnea. GI: No dysphagia or odynophagia. No reflux. No abdominal pain, bloating or distension. No black or bloody stools. : No dysuria or gross hematuria. Endo: No hot flashes. Musculoskeletal: No bone, back, joint and muscular pain. Derm: No current rash. No history of jaundice. Heme: No unusual bleeding and unexplained bruising. Psych: Normal mood. PHYSICAL EXAM: Vitals: Blood pressure 88/64, pulse 71, temperature 36.7 C (98.1 F), temperature source Temporal, weight 46.9 kg (103 lb 8 oz), SpO2 100%. Thin and fatigued-appearing and in no acute distress. EYES: Sclerae are anicteric bilaterally. LYMPHATIC: There is no palpable cervical or supraclavicular adenopathy. RESPIRATORY: Inspiratory breath sounds are of normal intensity in all muñoz. No rales, wheezes or rhonchi. CARDIOVASCULAR: Rhythm is regular. ABDOMEN: The abdomen is nondistended. Extremities: No swelling or edema. SKIN: No jaundice or rash. LABORATORY DATA: PATHOLOGY: Bone marrow biopsy 04/11/2023: A-C. 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 - Hypercellular bone marrow (60-70%) with maturing trilineage hematopoiesis. - Increased storage iron. - Positive for amyloid deposition (numerous blood vessels, [place] red stain confirmatory). - See comment. 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 Left kidney biopsy 04/14/2023: A. [facility] [place] [facility] [place] left kidney biopsy: - [place] light chain amyloidosis extensively involving glomeruli, the tubulointerstitium and vessel cooper. - Tubular atrophy and interstitial fibrosis, moderate to severe. Light microscopy shows prominent amyloid accumulation within glomeruli, vessel cooper and in a patchy distribution in the tubulointerstitium. Immunofluorescence shows strong staining for kappa and essentially negative staining for the remaining tested reactants. Electron microscopy confirms the presence of 8 to 10 nm fibrosis characteristic of amyloidosis. 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 CARDIOLOGY: Echocardiogram 03/17/2023 done at [facility] demonstrated normal LV size with moderate concentric left ventricular hypertrophy and left ventricular systolic function normal with estimated ejection fraction 65%. Stage I diastolic dysfunction was observed. Pulmonary artery systolic pressure estimated at 28 mmHg. Echocardiogram same day demonstrated normal sinus rhythm with incomplete right bundle branch block ST and T wave abnormality, consider lateral ischemia, prolonged QT. Exercise stress test at [facility] 04/19/2023: Impression: 1. Inability to reach 85% of maximal age-predicted heart rate decreases the sensitivity of this test exercise tolerance test 2. Stress test is positive for exercise-induced EKG changes of ischemia. However the specificity ofthis finding is decreased because of baseline ST-T changes 3. The test test is negative for exercise-induced chest pain 4. Functional capacity is decreased for age 5. Nuclear images pending Myocardial perfusion imaging study: Technique: The patient was injected with 11.1 mCi of technetium 99m Cardiolite and subsequently rest SPECT Cardiolite nuclear imaging was obtained in the horizontal long, vertical long, and short axis views. The patient exercised on a Adria protocol. Please see above for details. The patient was injected with33.3 mCi of technetium 99m Cardiolite and subsequently stress SPECT Cardiolite nuclear imaging was obtained in the horizontal long, vertical long, and short axis views. A gated Cardiolite study at peak stress was obtained. Interpretation: Rest and stress SPECT Cardiolite nuclear imaging status post realignment, normalization, and attenuation correction, demonstrates mild decrease in the radioisotope uptake in the inferior wall prior to attenuation correction. After attenuation correction there is normal myocardial radioisotope uptake overall. These findings are suggestive of diaphragmatic attenuation artifact. The gated Cardiolitestudy demonstrates no significant regional wall motion abnormalities. The reported LVEF is 56%. Impression: 1. There is no definite evidence of ischemia. Please see the EKG portion of the test above as well.The sensitivity of this test is decreased because of inability to reach 85% of maximal age-predicted heart rate. 2. The gated Cardiolite study reports an LVEF of 56%. 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 Assessment: -The patient is a 73-year-old male with a past medical history significant for BPH. Over several months prior to presentation he had been experiencing progressive constitutional symptoms of muscle weakness/fatigue, metallic taste, malaise and hoarseness. He was found to have azotemia. -Work-up for SINDI significant for IgM kappa monoclonal protein. He had no diarrhea. No symptoms of sensory neuropathy. 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 -Baseline serum MP 0.7 g/dL. Baseline serum kappa free light chain 199.4 mg/dL. -CTs 04/06/2023 two small pulmonary nodules. No adenopathy or splenomegaly. -Although the serum kappa light chain is still elevated, may be from end-stage renal disease at this point. Immunofixation last detected IgM kappa monoclonal protein in February. Now picking up IgG kappa. With two peaks on serum electrophoresis. -We will plan bone marrow biopsy if persists or worsens, but otherwise continue zanubrutinib. Plan: -Continue zanubrutinib. -CBC and SPEP/immunofixation monthly. -Office visit in 3 months. -He would like to establish with cardiology closer to home. Will see if he can be seen in [place]. Portions of this documentation were copied and pasted from previous office visit notes in order to provide a cohesive continuity of the history. The note has been reviewed and edited and updated as necessary. I spent a total of 15 minutes on the date of the service which included preparing to see the patient, [id number] patient care, completing clinical documentation, obtaining and/or reviewing separately obtained history, performing a medically appropriate examination, communicating with other HCPs (n ot separately reported), and communicating results to the patient/family/caregiver. Jose Hugo DO documented in this encounterPrem[facility] Note[facility]-29-[facility] History of Present illness Narrative* Jose Hugo DO - 05/16/2024 11:01 AM EDT Diagnosis: 1) IgM kappa amyloidosis. HPI: The patient is a 73 yo male with a PMH significant for BPH. Had labs 03/17/2023 for upcoming annual appointment with Dr. Herbert. Per Dr. Herbert's recent eveluation: Patient ws recently sent to [facility] due to SINDI. BUN was 47 and Crewas 2.47 with potassium of 5.3. patient used Excedrin on occasion, maybe a few times a month if that. Denies chronic NSAID use. EKG in ER showed ST-T wave changes in the lateral leads. 2D echo was unremarkable with normal LV size, mod concentric VH, systolic function was normal with an EF of 65%, mild diastolic dysfunction. His Trop level was elevated but since the echo was ok. No further cardiacw/u was pursued. An US of the kidnies and bladder showed possible chronic kidney disease, no hydronephrosis. Chest x-ray was normal. Patient was not started on any medications to go home on. He has an appt tomorrow with renal. CBC showed WBC normal at 6.8, Hg slightly low at 12.5, MCV was normal. Differential was unremarkable. Sodium, potassium, LFT's and TSH were al ok. Patient has been experiencing fatigue over the last 6 months. Also noticed a changed in his voice in the past 6 months off and on with hoarseness. Food has been tasting metalic Very Dry mouth. Has to take sips of water to help food go down. No N/V, diarrhea, hematochezia or melena. Eating less; no appetite. Has lost approx 10 lbs in past 1-2 months. Urination increased but always feeling thristy Swelling in both ankles and legs since maybe the beginning of this past year. Increased SOB and muscle fatigue No chest pain Stopped exercising in January due to fatigue and weakness. In October while he was swimming he felt like he was swimming in [place]. No shortness of breath. Denied chest heaviness, tightness or palpitations. Echo at [facility]: Interpretation Summary Normal LV size. Moderate concentric left ventricular hypertrophy. Left ventricular systolic function is normal. The estimated ejection fraction is 65 %. Stage 1 diastolic dysfunction. Pulmonary artery systolic pressure is 28 mmHg. Contrast injection was performed. Hospitalized at [facility] 08/25/2023 through 09/19/2023 for nonischemic heart failure with preservedejection fraction, volume management and SINDI. Per discharge summary. Mr. 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 Volume statusvery difficult to assess due to baseline elevated creatinine and patient's cachectic habitus. Originally diuresed with sx improvement, but RHC demonstrated patient intravascularly depleted so diuresis held and given PRN small volume fluid boluses. Hospitalization c/b orthostatic hypotension and worsening of chronic urinary retention. Discharged on midodrine 5mg tid, and senior catheter in situ. # HFpEF - 02/2023 TTE: LVH, stage 1 diastolic dysfunction, EF 65% - 08/2023 TTE: EF 59%, Grade I left ventricular diastolic dysfunction, biventricular wall thickening - 09/01 RHC: Low normal biventricular filling pressures, Preserved CO/CI by Julián, reduced by TD Plan on discharge: - Hold diuretics iso orthostatic hypotension - Encourage PO intake #Orthostatic hypotension Multiple CMETs called during hospital course for syncope or near-syncope secondary to orthostatic hypotension. Etiology likely hypovolemia c/b AL amyloidosis with renal and cardiac involvement vs autonomic neuropathy vs post obstructive diuresis with volume depletion. Plan on discharge: - Midodrine 5 mg tid #Urinary retention 2/2 BPH #SINDI on CKD stage 4 2/2 AL amyloidosis - Cr 1.1 in 2021. In February 2023 he presented for an annual physical with his PCP and was found to have an SINDI with Cr 2.47. Since then, Cr has progressively up trended, and now it has stabilized at ~ 3.8-4, likely from Amyloidosis. - 08/28 kidney/bladder: Markedly distended urinary bladder, perhaps chronic outlet obstruction due to BPH. Mild right hydroureteronephrosis, favored to be due to the markedly distended bladder. Nostones or left hydronephrosis. Increase in parenchymal echogenicity of kidneys due to underlying chronic kidney disease. - 09/01 US kidney/bladder: No hydronephrosis. Markedly dilated urinary bladder despite Senior catheter. Increased parenchymal echogenicity of kidneys secondary to underlying chronic kidney disease. 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 Diagnosed 03/2023 with kidney biopsy - Follows with Dr. Hugo (oncology) - Started on velcade, rituximab and dexamethasone in April 2023. Did not see much clinical improvement so was switched to Bendamustine 3 days ago (08/22/23) with a plan for Rituximab with cycle #2 per oncology notes - Heme/Onc consulted but determined no role for inpatient management Plan on discharge: - hematology follow-up outpatient #Malnutrition Likely secondary to amyloidosis and lymphoma, worsened iso acute illness. Plan: - Nutrition recommending daily Ensure Max and renal vitamin OPERATIONS/PROCEDURE DURING THIS HOSPITALIZATION: Procedure(s) (LRB): RIGHT HEART CATHETERIZATION INCLUDING MEASUREMENT OF OXYGEN SATURATION AND CARDIAC OUTPUT (N/A) Renvela was cost prohibitive. Using TUMS per nephrology recommendations. Midodrine 5 mg 3 times daily consistently. When he was tried on 10 mg, developed urinary retention. Previous therapy: 1) Bendamustine/rituximab. Current therapy: 1) Zanubrutinib. Presents for ongoing oncologic management. Interim history: Started zanubrutinib. May be a little more fatigued but no other side effect. Orthostasis only occurring if goes from lying down to standing. So overall much getter. Good appetite. Weight stable. No dyspnea. Dialysis going well. No chest pain/pressure. PMH, medications and allergies personally reviewed by me today. Any changes documented in appropriate section. Social History Tobacco Use Smoking status: Never Smokeless tobacco: Never Vaping Use Vaping status: Never Used Substance Use Topics Alcohol use: No Drug use: No Not . No children. Family History Problem Relation Age of Onset Prostate Cancer Father Heart Father Pacemaker Cancer Father Hodgkin's lymphoma None Sister other (non hodgkins lymphoma) Sister Coronary Artery Disease No Family History ROS: Constitutional: No fever. No drenching night sweats. Neuro: No recent SELF. HEENT: No recent change in vision or hearing. Resp: See HPI. CVS: No PND or orthopnea. GI: No dysphagia or odynophagia. No reflux. No abdominal pain, bloating or distension. No black or bloody stools. : No dysuria or gross hematuria. Endo: No hot flashes. Musculoskeletal: No bone, back, joint and muscular pain. Derm: No current rash. No history of jaundice. Heme: No unusual bleeding and unexplained bruising. Psych: Normal mood. PHYSICAL EXAM: Vitals: Blood pressure 88/60, pulse 74, temperature 37.1 C (98.7 F), temperature source Temporal, weight 45.8 kg (101 lb), SpO2 98%. Thin and fatigued-appearing and in no acute distress. EYES: Sclerae are anicteric bilaterally. LYMPHATIC: There is no palpable cervical or supraclavicular adenopathy. RESPIRATORY: Inspiratory breath sounds are of normal intensity in all muñoz. No rales, wheezes or rhonchi. CARDIOVASCULAR: Rhythm is regular. ABDOMEN: The abdomen is nondistended. Extremities: No swelling or edema. SKIN: No jaundice or rash. LABORATORY DATA: PATHOLOGY: Bone marrow biopsy 04/11/2023: A-C. 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 - Hypercellular bone marrow (60-70%) with maturing trilineage hematopoiesis. - Increased storage iron. - Positive for amyloid deposition (numerous blood vessels, [place] red stain confirmatory). - See comment. 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 Left kidney biopsy 04/14/2023: A. [facility] [place] left kidney biopsy: - [place] light chain amyloidosis extensively involving glomeruli, the tubulointerstitium and vessel cooper. - Tubular atrophy and interstitial fibrosis, moderate to severe. Light microscopy shows prominent amyloid accumulation within glomeruli, vessel cooper and in a patchy distribution in the tubulointerstitium. Immunofluorescence shows strong staining for kappa and essentially negative staining for the remaining tested reactants. Electron microscopy confirms the presence of 8 to 10 nm fibrosis characteristic of amyloidosis. 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 CARDIOLOGY: Echocardiogram 03/17/2023 done at [facility] demonstrated normal LV size with moderate concentric left ventricular hypertrophy and left ventricular systolic function normal with estimated ejection fraction 65%. Stage I diastolic dysfunction was observed. Pulmonary artery systolic pressure estimated at 28 mmHg. Echocardiogram same day demonstrated normal sinus rhythm with incomplete right bundle branch block ST and T wave abnormality, consider lateral ischemia, prolonged QT. Exercise stress test at [facility] 04/19/2023: Impression: 1. Inability to reach 85% of maximal age-predicted heart rate decreases the sensitivity of this test exercise tolerance test 2. Stress test is positive for exercise-induced EKG changes of ischemia. However the specificity ofthis finding is decreased because of baseline ST-T changes 3. The test test is negative for exercise-induced chest pain 4. Functional capacity is decreased for age 5. Nuclear images pending Myocardial perfusion imaging study: Technique: The patient was injected with 11.1 mCi of technetium 99m Cardiolite and subsequently rest SPECT Cardiolite nuclear imaging was obtained in the horizontal long, vertical long, and short axis views. The patient exercised on a Adria protocol. Please see above for details. The patient was injected with33.3 mCi of technetium 99m Cardiolite and subsequently stress SPECT Cardiolite nuclear imaging was obtained in the horizontal long, vertical long, and short axis views. A gated Cardiolite study at peak stress was obtained. Interpretation: Rest and stress SPECT Cardiolite nuclear imaging status post realignment, normalization, and attenuation correction, demonstrates mild decrease in the radioisotope uptake in the inferior wall prior to attenuation correction. After attenuation correction there is normal myocardial radioisotope uptake overall. These findings are suggestive of diaphragmatic attenuation artifact. The gated Cardiolitestudy demonstrates no significant regional wall motion abnormalities. The reported LVEF is 56%. Impression: 1. There is no definite evidence of ischemia. Please see the EKG portion of the test above as well.The sensitivity of this test is decreased because of inability to reach 85% of maximal age-predicted heart rate. 2. The gated Cardiolite study reports an LVEF of 56%. 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 Assessment: -The patient is a 73-year-old male with a past medical history significant for BPH. Over several months prior to presentation he had been experiencing progressive constitutional symptoms of muscle weakness/fatigue, metallic taste, malaise and hoarseness. He was found to have azotemia. -Work-up for SINDI significant for IgM kappa monoclonal protein. He had no diarrhea. No symptoms of sensory neuropathy. 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 -Baseline serum MP 0.7 g/dL. Baseline serum kappa free light chain 199.4 mg/dL. -CTs 04/06/2023 two small pulmonary nodules. No adenopathy or splenomegaly. -Although the serum kappa light chain is still elevated, may be from end-stage renal disease at this point. Immunofixation last detected IgM kappa monoclonal protein in February. Now picking up IgG kappa. With two peaks on serum electrophoresis. -We will plan bone marrow biopsy if persists or worsens, but otherwise continue zanubrutinib. Plan: -Stop bendamustine and rituximab. -Continue zanubrutinib. -CBC in 2 weeks. -Monthly assessments for now. Portions of this documentation were copied and pasted from previous office visit notes in order to provide a cohesive continuity of the history. The note has been reviewed and edited and updated as necessary. I spent a total of 25 minutes on the date of the service which included preparing to see the patient, [id number] patient care, completing clinical documentation, obtaining and/or reviewing separately obtained history, performing a medically appropriate examination, counseling and educating the pat ient/family/caregiver, ordering medications, tests, or procedures, communicating with other HCPs (not separately reported), and communicating results to the patient/family/caregiver. Jose Hugo DO documented in this encounterPrem[facility]08-28-2024 NoteHNO ID: [id number] Author: GRICEL BRUNO LPN Service: ? Author Type: LICENSED NURSE Type: Progress Notes Filed: 05/15/2024 07:47 Note Text: Scan on 05/14/2024 4:26 PM by ProviderLázaro PA-C: Consultation - [facility]-28-[facility] History of Present illness Narrative* Gricel Bruno LPN - 05/15/2024 7:47 AM EDT Scan on 05/14/2024 4:26 PM by ProviderLázaro PA-C: Consultation - documented in this encounterPrem[facility]08-28-2024 NoteHNO ID: [id number] Author: GRICEL BRUNO LPN Service: ? Author Type: LICENSED NURSE Type: Progress Notes Filed: 05/15/2024 07:30 Note Text: Scan on 05/14/2024 5:14 PM by ProviderLázaro PA-C: [facility]Prem[facility]08-28-2024 History of Present illness Narrative* Gricel Bruno LPN - 05/15/2024 7:30 AM EDT Scan on 05/14/2024 5:14 PM by Lázaro Cisse PA-C: Chemistry documented in this encounterPrem[facility]08-26-2024 [facility]08-20-2024 Telephone encounter Note* Telephone Encounter - Dina Tolentino RN - 05/07/2024 9:52 AM EDT ORAL ANTI-CANCER AGENTS FOLLOW-UP PHONE CALL/VISIT Patient identified by name and date of . YES Patient is on cycle 1, week 2, day 9 of zanubrutinib for Lymphoplasmacytic lymphoma . SYMPTOM ASSESSMENT Headache: No Visual Changes: No Dizziness: No Do you have any periods of confusion? No Mood changes: No Mouth or throat pain: No Appetite: no changes in appetite, appetite good Taste changes: No Nausea: No Vomiting: No Heartburn: No. Weight gain/loss: No Episodes of palpitations/chest discomfort/pressure/pain No Shortness of breath: No Cough: No Diarrhea: no Constipation: no Bladder/Urinary Changes: amount of flow does change from time to time. Pain: No=0 (pain 0 on a scale of 0-10). Fever: No Chills: No Cold sensitivity: No Numbness/weakness: Yes I've always had numbness in my toes but that goes back a long ways unchanged from baseline. Edema: No Skin changes: No Itching: Constant itching, I scratch til I bleed. Wearing pants to bed which helps reduce the itching. Yellowing of skin or eyes: No Musculoskeletal/joint changes/issues No Bleeding issues: No bruises easier but has been ongoing, unchanged since starting zanubrutinib Activity Level: more fatigued than he has been since starting zanubrutinib Do you need to take naps? Rests during the day Does the patient need interventions or same day appointment:No ADDITIONAL FOLLOW UP: The next outreach call is due on: TBD and was scheduled TBD- patient instructed to call our office with any new/worsening symptoms, questions, or concerns. The following lab tests are due: 05/16 CBC/CMP(S)/MYELOMA LABS Verified patient is aware of next appointment in the cancer center: Yes. Verified patient verbalized how to correctly refill the oral agent prescription. Yes Does the patient have any financial difficulties affording this medication? No- patient had issues with the naeem used to pay for medication. [facility] working on fixing and re enrolling patient into correct naeem. Patient verbalizes understanding of when to seek Medical Attention? YES Patient verbalizes understanding of after-hours and weekend phone number? YES Patient verbalized importance of medication compliance in taking the oral agent as prescribed. Patient instructed to call if unable to comply. Dina Tolentino RN [facility]08-20-2024 Miscellaneous Notes* Telephone Encounter - Dina Tolentino RN - 05/07/2024 9:52 AM EDT ORAL ANTI-CANCER AGENTS FOLLOW-UP PHONE CALL/VISIT Patient identified by name and date of . YES Patient is on cycle 1, week 2, day 9 of zanubrutinib for Lymphoplasmacytic lymphoma . SYMPTOM ASSESSMENT Headache: No Visual Changes: No Dizziness: No Do you have any periods of confusion? No Mood changes: No Mouth or throat pain: No Appetite: no changes in appetite, appetite good Taste changes: No Nausea: No Vomiting: No Heartburn: No. Weight gain/loss: No Episodes of palpitations/chest discomfort/pressure/pain No Shortness of breath: No Cough: No Diarrhea: no Constipation: no Bladder/Urinary Changes: amount of flow does change from time to time. Pain: No=0 (pain 0 on a scale of 0-10). Fever: No Chills: No Cold sensitivity: No Numbness/weakness: Yes I've always had numbness in my toes but that goes back a long ways unchanged from baseline. Edema: No Skin changes: No Itching: Constant itching, I scratch til I bleed. Wearing pants to bed which helps reduce the itching. Yellowing of skin or eyes: No Musculoskeletal/joint changes/issues No Bleeding issues: No bruises easier but has been ongoing, unchanged since starting zanubrutinib Activity Level: more fatigued than he has been since starting zanubrutinib Do you need to take naps? Rests during the day Does the patient need interventions or same day appointment:No ADDITIONAL FOLLOW UP: The next outreach call is due on: TBD and was scheduled TBD- patient instructed to call our office with any new/worsening symptoms, questions, or concerns. The following lab tests are due: 05/16 CBC/CMP(S)/MYELOMA LABS Verified patient is aware of next appointment in the cancer center: Yes. Verified patient verbalized how to correctly refill the oral agent prescription. Yes Does the patient have any financial difficulties affording this medication? No- patient had issues with the naeem used to pay for medication. [facility] working on fixing and re enrolling patient into correct naeem. Patient verbalizes understanding of when to seek Medical Attention? YES Patient verbalizes understanding of after-hours and weekend phone number? YES Patient verbalized importance of medication compliance in taking the oral agent as prescribed. Patient instructed to call if unable to comply. Dina Tolentino RN documented in this encounterPremier Health [facility] Valley [facility] Telephone encounter Note * Telephone Encounter - Cass Jacobs LPN - 04/29/2024 1:48 PM EDT Detailed message left on patient's identified VM. Cass Jacobs LPN [facility]08-12-2024 Miscellaneous Notes* Telephone Encounter - Cass Jacobs LPN - 04/29/2024 1:48 PM EDT Detailed message left on patient's identified VM. Cass Jacobs LPN * Telephone Encounter - Jose Hugo DO - 04/29/2024 1:41 PM EDT Yes, we will hold off on bone marrow biopsy. I will talk with him about the timing of it when I seehim next. Jose Hugo DO * Telephone Encounter - Cass Jacobs LPN - 04/29/2024 10:28 AM EDT Patient will start medication this evening (after dialysis). Patient is asking if he should be on zanubrutinib for a longer period of time before completing theBMBX? States he spoke with the specialty pharmacist and was told to wait about 4 months to see if medication is helping. Cass Jacobs LPN * Telephone Encounter - Cass Jacobs LPN - 04/26/2024 2:04 PM EDT Left message for patient to contact office. Cass Jacobs LPN * Telephone Encounter - Jose Hugo DO - 04/26/2024 1:17 PM EDT Start Zanubrutinib on Monday. Lab work and office visit as scheduled 05/16. Can schedule the bone marrow biopsy for late May. Jose Hugo DO * Telephone Encounter - Dina Tolentino RN - 04/26/2024 9:44 AM EDT Patient will receive zanubrutinib tomorrow. Patient is asking when he can start the medication? Next lab appointment/OV is 05/16- CBC/CMP/myeloma labs/no urine. Does he need labs prior to then? Thank you. Reviewed last OV notes with patient; plan for BMBX early May. Patient is asking if he should be on zanubrutinib for a longer period of time before completing the BMBX? He is also a little stressed out about finding transportation and would like plenty of notice before scheduling the procedure. Answered his questions from yesterday. Patient has zofran at home. Dina Tolentino RN * Telephone Encounter - Dina Tolentino RN - 04/25/2024 11:58 AM EDT Patient had multiple questions. This nurse will call him back tomorrow with answers to questions. Dina Tolentino RN * Telephone Encounter - Dina Tolentino RN - 04/25/2024 11:55 AM EDT ORAL ANTI-CANCER AGENTS EDUCATION patient here today for oral medication education of zanubrutinib for Lymphoplasmacytic lymphoma Anticipated/Scheduled start date: TBD READINESS TO LEARN Cognitive Ability: Alert and oriented Motivation to Learn: Interested Family Support: Unable to assess - Family not present Instruction Provided to: Patient Patient learns best by: Multiple Methods Factors affecting learning: None Physical limitation affecting learning: None ST ASSESSMENT: 1.) Verified that patient knows that the oral agents are for cancer and are taken by mouth. Yes 2.) Medication review completed during visit. No 3.) Patient is able to swallow pills. Yes 4.) Patient is able to read the drug label/information. Yes 5.) Patient is able to open the medication bottles and packages. Yes 6.) Has patient taken other pills for cancer? No 7.) Is patient experiencing any symptoms that would affect their ability to keep down pills, for example nausea or vomiting? No 8.) Verified that patient understands prescription delivery, benefit investigation and refill process. Yes DRUG-SPECIFIC EDUCATION: 1.) Verified patient knows the drug name. Yes 2.) Verified patient understands the dose and schedule of oral anti cancer agent. Yes 3.) Verified patient knows what to do if a medication dose is missed. Yes 4.) Verified patient understands where to store the drug. Yes 5.) Verified patient understands potential side effects and how to manage them. Yes 6.)Verified patient understands handling precautions of oral anti cancer agent. Yes 7.) Verified patient was given written instructions and understands when and whom to call with questions. Yes 8.) Verified patient understands where and how to return drug. Yes 9.) Verified patient received drug specific adult education handout and neutropenic wallet card Yes EVALUATE: The patient demonstrated an understanding of all the above education using the teach-back method. Yes Instructed to call us with any questions, concerns, and/or unresolved symptoms. Will continue to follow up and provide reinforcement of teaching topics as needed. Dina Tolentino RN * Telephone Encounter - Dina Tolentino RN - 04/24/2024 9:49 AM EDT ORAL ANTI-CANCER AGENTS EDUCATION patient called today for oral medication education of zanubrutinib for Lymphoplasmacytic lymphoma Anticipated/Scheduled start date: TBD- has not received medication yet Called patient, no answer, left a VM requesting a call back from patient. Dina Tolentino RN [facility] Telephone encounter Note * Telephone Encounter - Jose Hugo DO - 04/29/2024 1:41 PM EDT Yes, we will hold off on bone marrow biopsy. I will talk with him about the timing of it when I seehim next. Jose Hugo DO [facility]08-12-2024 Telephone encounter Note* Telephone Encounter - Cass Jacobs LPN - 04/29/2024 10:28 AM EDT Patient will start medication this evening (after dialysis). Patient is asking if he should be on zanubrutinib for a longer period of time before completing theBMBX? States he spoke with the specialty pharmacist and was told to wait about 4 months to see if medication is helping. Cass Jacobs LPN [facility]08-09-2024 Telephone encounter Note* Telephone Encounter - Cass Jacobs LPN - 04/26/2024 2:04 PM EDT Left message for patient to contact office. Cass Jacobs LPN [facility]08-09-2024 Telephone encounter Note* Telephone Encounter - Jose Hugo DO - 04/26/2024 1:17 PM EDT Start Zanubrutinib on Monday. Lab work and office visit as scheduled 05/16. Can schedule the bone marrow biopsy for late May. Jose Hugo DO [facility]08-09-2024 Telephone encounter Note* Telephone Encounter - Dina Tolentino RN - 04/26/2024 9:44 AM EDT Patient will receive zanubrutinib tomorrow. Patient is asking when he can start the medication? Next lab appointment/OV is 05/16- CBC/CMP/myeloma labs/no urine. Does he need labs prior to then? Thank you. Reviewed last OV notes with patient; plan for BMBX early May. Patient is asking if he should be on zanubrutinib for a longer period of time before completing the BMBX? He is also a little stressed out about finding transportation and would like plenty of notice before scheduling the procedure. Answered his questions from yesterday. Patient has zofran at home. Dina Tolentino RN [facility]08-08-2024 Telephone encounter Note* Telephone Encounter - Dina Tolentino RN - 04/25/2024 11:58 AM EDT Patient had multiple questions. This nurse will call him back tomorrow with answers to questions. Dina Tolentino RN [facility]08-08-[facility]24 Telephone encounter Note* Telephone Encounter - Dina Tolentino RN - 04/25/2024 11:55 AM EDT ORAL ANTI-CANCER AGENTS EDUCATION patient here today for oral medication education of zanubrutinib for Lymphoplasmacytic lymphoma Anticipated/Scheduled start date: TBD READINESS TO LEARN Cognitive Ability: Alert and oriented Motivation to Learn: Interested Family Support: Unable to assess - Family not present Instruction Provided to: Patient Patient learns best by: Multiple Methods Factors affecting learning: None Physical limitation affecting learning: None ST ASSESSMENT: 1.) Verified that patient knows that the oral agents are for cancer and are taken by mouth. Yes 2.) Medication review completed during visit. No 3.) Patient is able to swallow pills. Yes 4.) Patient is able to read the drug label/information. Yes 5.) Patient is able to open the medication bottles and packages. Yes 6.) Has patient taken other pills for cancer? No 7.) Is patient experiencing any symptoms that would affect their ability to keep down pills, for example nausea or vomiting? No 8.) Verified that patient understands prescription delivery, benefit investigation and refill process. Yes DRUG-SPECIFIC EDUCATION: 1.) Verified patient knows the drug name. Yes 2.) Verified patient understands the dose and schedule of oral anti cancer agent. Yes 3.) Verified patient knows what to do if a medication dose is missed. Yes 4.) Verified patient understands where to store the drug. Yes 5.) Verified patient understands potential side effects and how to manage them. Yes 6.)Verified patient understands handling precautions of oral anti cancer agent. Yes 7.) Verified patient was given written instructions and understands when and whom to call with questions. Yes 8.) Verified patient understands where and how to return drug. Yes 9.) Verified patient received drug specific adult education handout and neutropenic wallet card Yes EVALUATE: The patient demonstrated an understanding of all the above education using the teach-back method. Yes Instructed to call us with any questions, concerns, and/or unresolved symptoms. Will continue to follow up and provide reinforcement of teaching topics as needed. Dina Tolentino RN [facility]08-07-2024 Telephone encounter Note* Telephone Encounter - Dina Tolentino RN - 04/24/2024 9:49 AM EDT ORAL ANTI-CANCER AGENTS EDUCATION patient called today for oral medication education of zanubrutinib for Lymphoplasmacytic lymphoma Anticipated/Scheduled start date: TBD- has not received medication yet Called patient, no answer, left a VM requesting a call back from patient. iDna Tolentino RN [facility]08-01-2024 History of Present illness Narrative* Jarrett HaywoodFraudMetrixMami Howe - 04/18/2024 2:02 PM EDT [facility] received prescription(s) for Brukinsa from Dr. Hugo's office. Benefits investigation was conducted, indicating that a prior authorization is required by patient'sinsurance plan with [employer]. Encounter will be updated once prior authorization has been submitted by [facility]. documented in this [facility]08[facility] History of Present illness Narrative* Jose Hugo DO - 04/18/2024 9:46 AM EDT Diagnosis: 1) IgM kappa amyloidosis. HPI: The patient is a 73 yo male with a PMH significant for BPH. Had labs 03/17/2023 for upcoming annual appointment with Dr. Herbert. Per Dr. Herbert's recent eveluation: Patient ws recently sent to [facility] due to SINDI. BUN was 47 and Crewas 2.47 with potassium of 5.3. patient used Excedrin on occasion, maybe a few times a month if that. Denies chronic NSAID use. EKG in ER showed ST-T wave changes in the lateral leads. 2D echo was unremarkable with normal LV size, mod concentric VH, systolic function was normal with an EF of 65%, mild diastolic dysfunction. His Trop level was elevated but since the echo was ok. No further cardiacw/u was pursued. An US of the kidnies and bladder showed possible chronic kidney disease, no hydronephrosis. Chest x-ray was normal. Patient was not started on any medications to go home on. He has an appt tomorrow with renal. CBC showed WBC normal at 6.8, Hg slightly low at 12.5, MCV was normal. Differential was unremarkable. Sodium, potassium, LFT's and TSH were al ok. Patient has been experiencing fatigue over the last 6 months. Also noticed a changed in his voice in the past 6 months off and on with hoarseness. Food has been tasting metalic Very Dry mouth. Has to take sips of water to help food go down. No N/V, diarrhea, hematochezia or melena. Eating less; no appetite. Has lost approx 10 lbs in past 1-2 months. Urination increased but always feeling thristy Swelling in both ankles and legs since maybe the beginning of this past year. Increased SOB and muscle fatigue No chest pain Stopped exercising in January due to fatigue and weakness. In October while he was swimming he felt like he was swimming in [place]. No shortness of breath. Denied chest heaviness, tightness or palpitations. Echo at [facility]: Interpretation Summary Normal LV size. Moderate concentric left ventricular hypertrophy. Left ventricular systolic function is normal. The estimated ejection fraction is 65 %. Stage 1 diastolic dysfunction. Pulmonary artery systolic pressure is 28 mmHg. Contrast injection was performed. Hospitalized at [facility] 08/25/2023 through 09/19/2023 for nonischemic heart failure with preservedejection fraction, volume management and SINDI. Per discharge summary. Mr. 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 Volume statusvery difficult to assess due to baseline elevated creatinine and patient's cachectic habitus. Originally diuresed with sx improvement, but RHC demonstrated patient intravascularly depleted so diuresis held and given PRN small volume fluid boluses. Hospitalization c/b orthostatic hypotension and worsening of chronic urinary retention. Discharged on midodrine 5mg tid, and senior catheter in situ. # HFpEF - 02/2023 TTE: LVH, stage 1 diastolic dysfunction, EF 65% - 08/2023 TTE: EF 59%, Grade I left ventricular diastolic dysfunction, biventricular wall thickening - 09/01 RHC: Low normal biventricular filling pressures, Preserved CO/CI by Julián, reduced by TD Plan on discharge: - Hold diuretics iso orthostatic hypotension - Encourage PO intake #Orthostatic hypotension Multiple CMETs called during hospital course for syncope or near-syncope secondary to orthostatic hypotension. Etiology likely hypovolemia c/b AL amyloidosis with renal and cardiac involvement vs autonomic neuropathy vs post obstructive diuresis with volume depletion. Plan on discharge: - Midodrine 5 mg tid #Urinary retention 2/2 BPH #SINDI on CKD stage 4 2/2 AL amyloidosis - Cr 1.1 in 2021. In February 2023 he presented for an annual physical with his PCP and was found to have an SINDI with Cr 2.47. Since then, Cr has progressively up trended, and now it has stabilized at ~ 3.8-4, likely from Amyloidosis. - 08/28 kidney/bladder: Markedly distended urinary bladder, perhaps chronic outlet obstruction due to BPH. Mild right hydroureteronephrosis, favored to be due to the markedly distended bladder. Nostones or left hydronephrosis. Increase in parenchymal echogenicity of kidneys due to underlying chronic kidney disease. - 09/01 kidney/bladder: No hydronephrosis. Markedly dilated urinary bladder despite Senior catheter. Increased parenchymal echogenicity of kidneys secondary to underlying chronic kidney disease. 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 Diagnosed 03/2023 with kidney biopsy - Follows with Dr. Hugo (oncology) - Started on velcade, rituximab and dexamethasone in April 2023. Did not see much clinical improvement so was switched to Bendamustine 3 days ago (08/22/23) with a plan for Rituximab with cycle #2 per oncology notes - Heme/Onc consulted but determined no role for inpatient management Plan on discharge: - hematology follow-up outpatient #Malnutrition Likely secondary to amyloidosis and lymphoma, worsened iso acute illness. Plan: - Nutrition recommending daily Ensure Max and renal vitamin OPERATIONS/PROCEDURE DURING THIS HOSPITALIZATION: Procedure(s) (LRB): RIGHT HEART CATHETERIZATION INCLUDING MEASUREMENT OF OXYGEN SATURATION AND CARDIAC OUTPUT (N/A) Renvela was cost prohibitive. Using TUMS per nephrology recommendations. Midodrine 5 mg 3 times daily consistently. When he was tried on 10 mg, developed urinary retention. Presents for ongoing oncologic management. Interim history: Less orthostasis. Good appetite. Early satiety, but eats more frequently. No dyspnea. Dialysis going well. No chest pain/pressure. PMH, medications and allergies personally reviewed by me today. Any changes documented in appropriate section. Social History Tobacco Use Smoking status: Never Smokeless tobacco: Never Vaping Use Vaping Use: Never used Substance Use Topics Alcohol use: No Drug use: No Not . No children. Family History Problem Relation Age of Onset Prostate Cancer Father Heart Father Pacemaker Cancer Father Hodgkin's lymphoma None Sister other (non hodgkins lymphoma) Sister Coronary Artery Disease No Family History ROS: Constitutional: No fever. No drenching night sweats. Neuro: No recent SELF. HEENT: No recent change in vision or hearing. Resp: See HPI. CVS: No PND or orthopnea. GI: No dysphagia or odynophagia. No reflux. No abdominal pain, bloating or distension. No black or bloody stools. : No dysuria or gross hematuria. Endo: No hot flashes. Musculoskeletal: No bone, back, joint and muscular pain. Derm: No current rash. No history of jaundice. No diffuse pruritis. Heme: No unusual bleeding and unexplained bruising. Psych: Normal mood. PHYSICAL EXAM: Vitals: Blood pressure 100/70, pulse 75, temperature 36.9 C (98.5 F), temperature source Temporal, weight 46 kg (101 lb 8 oz), SpO2 99%. Thin and fatigued-appearing and in no acute distress. EYES: Sclerae are anicteric bilaterally. LYMPHATIC: There is no palpable cervical or supraclavicular adenopathy. RESPIRATORY: Inspiratory breath sounds are of normal intensity in all muñoz. No rales, wheezes or rhonchi. CARDIOVASCULAR: Rhythm is regular. ABDOMEN: The abdomen is nondistended. Extremities: No swelling or edema. SKIN: No jaundice or rash. LABORATORY DATA: PATHOLOGY: Bone marrow biopsy 04/11/2023: A-C. 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 - Hypercellular bone marrow (60-70%) with maturing trilineage hematopoiesis. - Increased storage iron. - Positive for amyloid deposition (numerous blood vessels, [place] red stain confirmatory). - See comment. 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 Left kidney biopsy 04/14/2023: A. [facility] [place] left kidney biopsy: - [place] light chain amyloidosis extensively involving glomeruli, the tubulointerstitium and vessel cooper. - Tubular atrophy and interstitial fibrosis, moderate to severe. Light microscopy shows prominent amyloid accumulation within glomeruli, vessel cooper and in a patchy distribution in the tubulointerstitium. Immunofluorescence shows strong staining for kappa and essentially negative staining for the remaining tested reactants. Electron microscopy confirms the presence of 8 to 10 nm fibrosis characteristic of amyloidosis. 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 CARDIOLOGY: Echocardiogram 03/17/2023 done at [facility] demonstrated normal LV size with moderate concentric left ventricular hypertrophy and left ventricular systolic function normal with estimated ejection fraction 65%. Stage I diastolic dysfunction was observed. Pulmonary artery systolic pressure estimated at 28 mmHg. Echocardiogram same day demonstrated normal sinus rhythm with incomplete right bundle branch block ST and T wave abnormality, consider lateral ischemia, prolonged QT. Exercise stress test at [facility] 04/19/2023: Impression: 1. Inability to reach 85% of maximal age-predicted heart rate decreases the sensitivity of this test exercise tolerance test 2. Stress test is positive for exercise-induced EKG changes of ischemia. However the specificity ofthis finding is decreased because of baseline ST-T changes 3. The test test is negative for exercise-induced chest pain 4. Functional capacity is decreased for age 5. Nuclear images pending Myocardial perfusion imaging study: Technique: The patient was injected with 11.1 mCi of technetium 99m Cardiolite and subsequently rest SPECT Cardiolite nuclear imaging was obtained in the horizontal long, vertical long, and short axis views. The patient exercised on a Adria protocol. Please see above for details. The patient was injected with33.3 mCi of technetium 99m Cardiolite and subsequently stress SPECT Cardiolite nuclear imaging was obtained in the horizontal long, vertical long, and short axis views. A gated Cardiolite study at peak stress was obtained. Interpretation: Rest and stress SPECT Cardiolite nuclear imaging status post realignment, normalization, and attenuation correction, demonstrates mild decrease in the radioisotope uptake in the inferior wall prior to attenuation correction. After attenuation correction there is normal myocardial radioisotope uptake overall. These findings are suggestive of diaphragmatic attenuation artifact. The gated Cardiolitestudy demonstrates no significant regional wall motion abnormalities. The reported LVEF is 56%. Impression: 1. There is no definite evidence of ischemia. Please see the EKG portion of the test above as well.The sensitivity of this test is decreased because of inability to reach 85% of maximal age-predicted heart rate. 2. The gated Cardiolite study reports an LVEF of 56%. 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 Assessment: -The patient is a 73-year-old male with a past medical history significant for BPH. Over several months prior to presentation he had been experiencing progressive constitutional symptoms of muscle weakness/fatigue, metallic taste, malaise and hoarseness. He was found to have azotemia. -Work-up for SINDI significant for IgM kappa monoclonal protein. He had no diarrhea. No symptoms of sensory neuropathy. 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 -Baseline serum MP 0.7 g/dL. Baseline serum kappa free light chain 199.4 mg/dL. -CTs 04/06/2023 two small pulmonary nodules. No adenopathy or splenomegaly. -Overall he is doing much better. -Although the serum kappa light chain is still elevated, may be from end-stage renal disease at this point. Immunofixation last detected IgM kappa monoclonal protein in December. -I feel it is best that he be on some sort of maintenance therapy for the lymphoplasmacytic lymphoma so I recommended Brukinsa. -We will plan bone marrow biopsy following this upcoming cycle. Plan: -Okay for upcoming cycle of Bendamustine with rituximab. -Rx Brukinsa. -Bone marrow biopsy in early May. Portions of this documentation were copied and pasted from previous office visit notes in order to provide a cohesive continuity of the history. The note has been reviewed and edited and updated as necessary. I spent a total of 30 minutes on the date of the service which included preparing to see the patient, [id number] patient care, completing clinical documentation, obtaining and/or reviewing separately obtained history, performing a medically appropriate examination, counseling and educating the pat ient/family/caregiver, ordering medications, tests, or procedures, communicating with other HCPs (not separately reported), and communicating results to the patient/family/caregiver. Jose Hugo DO documented in this encounterPrem[facility]07[facility] History of Present illness Narrative* Chester Patel MD - 04/09/2024 4:08 PM EDT Images from the original note were not included. 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 He was started on iHD 12/2023 via RI TD MWF for 3 hrs. Midodrine was started due to hypotension. Hestill makes urine, he is unsure of how much (at night I get up to urinate multiple times). Swelling has been much better since he started iHD. He still has lightheadeness and dizziness when he changes position. Has had a couple of times after he got up too fast, did not hit his head. Lost 10 lbs s brii last visit/iHD initiation Intake history: 05/02/23 Patient has been experiencing progressive constitutional symptoms of muscle weakness/fatigue, metallic taste, malaise and hoarseness in the last 6 months. He was found to have renal dysfunction and workup for SINDI was significant for an IgM kappa monoclonal protein. K 947. L 199, K/L 15. 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 Kidney biopsy was done on 04/14/23 which showed [place] light chain amyloidosis extensively involving glomeruli, the tubulointerstitium and vessel cooper and Tubular atrophy and interstitial fibrosis, moderate to severe. NT pro BNP 9400 and HS OLAF 170 04/2023. Echocardiogram 03/27/23 demons trated preserved LV systolic function with moderate concentric LVH. Dr. Hugo started him on chemotherapy: Velcade, rituximab and dexamethasone. He was referred to Cardiology due to his persistent shortness of breath, fatigue, LE edema with concerns of cardiac involvement. He feels extreme fatigue. Feels that his legs are made of rubber and they limit his ambulaiton.He feels shortness of breath when he goes up stairs. Stopped execising in January because of being so tired. Has swelling in the legs. Early satiety, no abdominal bloating. Dizziness or lightheaded when he changes position. Denies any orthopnea, PND or bendopnea. Social: Never smoker, no EOTH Family: Father had a pacemkaer late in his life No CTS, spinal stenois, bicep tendon rupture, rotator cuff. He does have trigger finger of the right hand. NURSING INTAKE (Patient s concerns and/or recent hospitalizations/ER visits): HF Nursing Assessment: Interim Hospitalizations and/or ER visits:12/18/2023, 12/15/2023 Chest Pain: no Skipping or irregular heartbeats: no Shortness of breath at rest: no Shortness of breath with activity: no Cough: no Waking up in the middle of the night gasping for air: no Lightheadedness or dizziness: no Feeling like you are going to pass out: no Actually passing out: no Poor energy level: yes Unintentional weight gain: no Unintentional weight loss: no Swelling in your legs,feet, abdomen: no Filling up quickly when you eat:somewhat 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 Allergic rhinitis due to other allergen Anemia 03/23/2023 Benign prostatic hyperplasia with urinary obstruction 05/17/[address] Shoemaker Bilateral leg edema 03/23/2023 Rt>Lt Black hairy tongue 05/27/2023 BPH without obstruction/lower urinary tract symptoms 05/17/2011 Cardiac amyloidosis (HCC) 08/18/2023 Chronic diastolic congestive heart failure (HCC) 08/30/2023 CKD (chronic kidney disease) stage 5, GFR less than 15 ml/min (HCC) 05/24/2023 Seeing renal: Dr. 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 Living will on file 01/27/2022 DPA: Bari Betancur (tip length checker) 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 Medicare annual wellness visit, subsequent 01/27/2022 Medicare Part B: 08/18/2017 Last done: 01/27/2022 NICM (nonischemic cardiomyopathy) ([facility]) 05/24/2023 Obstructed, uropathy 08/29/2023 Secondary hyperparathyroidism, renal ([facility]) 08/30/2023 Stage 3b chronic kidney disease ([facility]) 05/24/2023 Urinary catheter change required 08/2023 PAST SURGICAL HISTORY Procedure Laterality Date COLONOSCOPY FLX DX W/COLLJ SPEC WHEN PFRMD 08/07/08 COLONOSCOPY FLX DX W/COLLJ SPEC WHEN PFRMD 06/07/2018 Colonoscopy RPR 1ST INGUN HRNA AGE 5 YRS/> REDUCIBLE Hernia repair, inguinal, bilateral SIGMOIDOSCOPY FLX DX W/COLLJ SPEC BR/WA IF PFRMD 2002 Sigmoidoscopy SOCIAL HISTORY Social History Tobacco Use Smoking status: Never Smokeless tobacco: Never Vaping Use Vaping Use: Never used Substance Use Topics Alcohol use: No Drug use: No FAMILY HISTORY Problem Relation Age of Onset Prostate Cancer Father Heart Father Pacemaker Cancer Father Hodgkin's lymphoma None Sister other (non hodgkins lymphoma) Sister Coronary Artery Disease No Family History ALLERGIES: ALLERGIES No Known Allergies CURRENT MEDICATIONS: atorvastatin (LIPITOR) 20 mg tablet Take 1 tablet by mouth daily at bedtime. For cholesterol. calcium acetate,phosphat bind, (PHOSLO) 667 mg capsule Take 667 mg by mouth three times a day. midodrine (PROAMITINE) 5 mg tablet Take 1 tablet by mouth three times a day. finasteride (PROSCAR) 5 mg tablet Take 1 tablet by mouth once daily. acyclovir (ZOVIRAX) 200 mg capsule Take 1 capsule by mouth once daily. REVIEW OF SYSTEMS: CONSTITUTION: Negative for: Weight loss or gain, Fever. Chills, Night sweats HEENT: Negative for: Hearing loss, Nosebleeds, Mouth sores, Trouble swallowing, Dry mouth RESPIRATORY: Negative for: Cough, Difficulty breathing GASTROINTESTINAL: Negative for: Melena, Diarrhea, Nausea, Abdominal distension, Early satiety MUSCULOSKELETAL: Negative for: Arthralgias, Myalgias NEUROLOGICAL: Positive for: Dizziness SKIN: Negative for: Rash EYES: Negative for: Vision disturbance CARDIOVASCULAR: Negative for: Chest pain, Leg swelling, Arrhythmia, Presyncope GENITOURINARY: Negative for: Difficulty urinatiing PATIENT ENTERED DATA: No data to display No data to display No data to display PHYSICAL EXAMINATION: BP 96/60 (BP Site: Left Arm) Pulse 73 Ht 170.2 cm (5' 7) Wt 45.6 kg (100 lb 8 oz) SpO2 99% BMI 15.74 kg/m General: Well appearing, in no acute distress. Skin: No clubbing, no cyanosis. Eyes: Extra ocular movements intact Oropharynx: Teeth in good repair. Neck: No jugular venous distention, no carotid bruits, carotids have a normal upstroke, no palpablethyromegaly. Lungs: Clear to auscultation bilaterally, no wheezing or rhonchi. Heart: Regular rhythm, PMI not displaced, S1, S2 normal, no S3, no S4, no heaves, no rub and no murmur. Abdomen: Soft, nontender, bowel sounds normal, no palpable organomegaly, no bruits. Extremities: No peripheral edema . Grade 2/4 distal pulses bilaterally. Neuro: Oriented to person, place and time, alert, cooperative, gait coordinated. CARDIOVASCULAR MEDICINE TESTING: I have personally reviewed the Electrocardiogram, Laboratory Testing, and Echocardiogram. Last ECHO Result Conclusion ECHO Collected: 08/25/2023 3:59 PM (Final result) Impression: CONCLUSIONS: - Exam indication: HF - The left ventricle is normal in size. There is concentric left ventricular hypertrophy. Left ventricular systolic function is normal. EF = 59 5% (2D biplane) Grade I left ventricular diastolic dysfunction. -biventricular wall thickening, consider infiltrative cardiomyopathy - The right ventricle is normal in size. Right ventricular systolic function is normal. - The left atrial cavity is moderately dilated. - The right atrial cavity is dilated. - There are no significant valvular abnormalities. - Estimated right ventricular systolic pressure is likely underestimated due to a weak or incomplete tricuspid regurgitation signal and is, at least, 30 mmHg consistent with normal pulmonary artery pressures. Estimated right atrial pressure is 3 mmHg based on IVC assessment. - There are no signifcant respiratory variations through TV/MV. IVC measures normal and collapses >50%. - The patient has not had a prior CC echocardiographic exam for comparison. * * * Final * * * Last EKG Result Conclusion ECG COMPLETE Collected: 08/25/2023 12:53 PM (Preliminary result) Impression: NORMAL SINUS RHYTHM RSR' PATTERN IN V1 SUGGESTS INCOMPLETE RIGHT BUNDLE BRANCH BLOCK LATERAL T WAVE ABNORMALITY ABNORMAL ECG IMPRESSION: NYHA Functional Class: III (multifactorial) Stage: C heart failure Target weight: today, 102lbs -Chronic HFpEF. Etiology: NICM. LVEF 59%, LVIDD 3.3cm, IVS 1.5cm, normal RV function. Ischemic evaluation: 04/19/23 EKG stress test wwas positive for exercise induced EKG ischemia but nehative for exercise induced chest pain. Patient did not reach 85% of MPHR Valvular disease: No significant valvular abnormalities. ICD: No indication The etiology of his cardiomyopathy is likely secondary to infiltrative CM (amyloid heart disease). NT pro BNP 9400 and HS OLAF 170 04/2023. EKG voltage seems out of proportion to LVH. Echocardiogram (per report) shows preserved LV systolic function with moderate concentric LVH (IVS 1.5cm). K 947. L 199, K/L 15, +M protein. 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 Kidney biopsy was done on 04/14/23 showed [place] light chain amyloidosis extensively involving glomeruli, the tubulointerstitium and vessel cooper. I donot think we need any further testing (non-invasive; I.e cMRI or invasive; I.e EMBx) as I think there is enough evidence based on EKG, echocardiography, in the setting of having a positive kidney/BM biopsy. Hematology (Dr. Hugo) following from hematology and started Rx on 04/2023. RHC 09/01/23 RA 3, PA 18/4 m7, PCWP 4, TDCI 1.95, AFCI 2.6 suggesting he was hypovolemic. Symptoms much improved since starting iHD (specially LE edema). On midodrine for BP support. HF GDMT limited by hypotension andrenal function. 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 Started on velcade, rituximab and dexamethasone in April 2023. Did not see much clinical improvement so was switched to Bendamustine (08/22/23) with a plans to add Rituximab. Following with Dr. Hugo. 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 Wediscussed natural history of disease, current treatment options, and future potential treatment options. We discussed diet, exercise, other non-medical management as above. Chester Kwan MD [facility] Section Of Heart Failure and Cardiac Transplant Medicine Heart and Vascular [place] [facility] Desk [address] [place] [address] documented in this encounterPremier Health [facility]07-23-2024 Telephone encounter Note * Telephone Encounter - Nona Hinojosa - 04/09/2024 10:41 AM EDT Prescription Refill Information The patient has been identified by name and date of : Yes Caregiver verified no other encounters exist for this prescription request: Yes Caregiver confirmed with patient/requestor that no other refills are due, in the near future, with this provider at this time: Yes The last office visit in the department: 10/26/2023 Does the patient have a future office visit with this provider/department: Yes 08/06/2024 Requested Prescriptions Pending Prescriptions Disp Refills atorvastatin (LIPITOR) 20 mg tablet 30 tablet 5 Sig: Take 1 tablet by mouth daily at bedtime. For cholesterol. Nona Blake April 09, 2024 10:41 AM [facility]07-23-2024 Miscellaneous Notes* Telephone Encounter - Nona Hinojosa - 04/09/2024 10:41 AM EDT Prescription Refill Information The patient has been identified by name and date of : Yes Caregiver verified no other encounters exist for this prescription request: Yes Caregiver confirmed with patient/requestor that no other refills are due, in the near future, with this provider at this time: Yes The last office visit in the department: 10/26/2023 Does the patient have a future office visit with this provider/department: Yes 08/06/2024 Requested Prescriptions Pending Prescriptions Disp Refills atorvastatin (LIPITOR) 20 mg tablet 30 tablet 5 Sig: Take 1 tablet by mouth daily at bedtime. For cholesterol. Nona Blake April 09, 2024 10:41 AM documented in this encounterPremier Health [facility]07-02-2024 History of Present illness Narrative* Oanh Jim APRN.PRODUCT INTRODUCTION MANAGER - 03/19/2024 9:53 AM EDT Chief Complaint Patient presents with: Established Patient HPI: Edgar Henderson is a 73 year old male who presents here today for evaluation for treatment next week. Per Dr. Hugo's previous note: H/o BPH. Had labs 03/17/2023 for upcoming annual appointment with Dr. Herbert. Per Dr. Herbert's recent eveluation: Patient ws recently sent to [facility] due to SINDI. BUN was 47 and Crewas 2.47 with potassium of 5.3. patient used Excedrin on occasion, maybe a few times a month if that. Denies chronic NSAID use. EKG in ER showed ST-T wave changes in the lateral leads. 2D echo was unremarkable with normal LV size, mod concentric VH, systolic function was normal with an EF of 65%, mild diastolic dysfunction. His Trop level was elevated but since the echo was ok. No further cardiacw/u was pursued. An US of the kidnies and bladder showed possible chronic kidney disease, no hydronephrosis. Chest x-ray was normal. Patient was not started on any medications to go home on. He has an appt tomorrow with renal. CBC showed WBC normal at 6.8, Hg slightly low at 12.5, MCV was normal. Differential was unremarkable. Sodium, potassium, LFT's and TSH were al ok. Patient has been experiencing fatigue over the last 6 months. Also noticed a changed in his voice in the past 6 months off and on with hoarseness. Food has been tasting metalic Very Dry mouth. Has to take sips of water to help food go down. No N/V, diarrhea, hematochezia or melena. Eating less; no appetite. Has lost approx 10 lbs in past 1-2 months. Urination increased but always feeling thristy Swelling in both ankles and legs since maybe the beginning of this past year. Increased SOB and muscle fatigue No chest pain Stopped exercising in January due to fatigue and weakness. In October while he was swimming he felt like he was swimming in [place]. No shortness of breath. Denied chest heaviness, tightness or palpitations. Echo at [facility]: Interpretation Summary Normal LV size. Moderate concentric left ventricular hypertrophy. Left ventricular systolic function is normal. The estimated ejection fraction is 65 %. Stage 1 diastolic dysfunction. Pulmonary artery systolic pressure is 28 mmHg. Contrast injection was performed. Hospitalized at [facility] 08/25/2023 through 09/19/2023 for nonischemic heart failure with preservedejection fraction, volume management and SINDI. Per discharge summary. Mr. 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 Volume statusvery difficult to assess due to baseline elevated creatinine and patient's cachectic habitus. Originally diuresed with sx improvement, but RHC demonstrated patient intravascularly depleted so diuresis held and given PRN small volume fluid boluses. Hospitalization c/b orthostatic hypotension and worsening of chronic urinary retention. Discharged on midodrine 5mg tid, and senior catheter in situ. # HFpEF - 02/2023 TTE: LVH, stage 1 diastolic dysfunction, EF 65% - 08/2023 TTE: EF 59%, Grade I left ventricular diastolic dysfunction, biventricular wall thickening - 09/01 RHC: Low normal biventricular filling pressures, Preserved CO/CI by Julián, reduced by TD Plan on discharge: - Hold diuretics iso orthostatic hypotension - Encourage PO intake #Orthostatic hypotension Multiple CMETs called during hospital course for syncope or near-syncope secondary to orthostatic hypotension. Etiology likely hypovolemia c/b AL amyloidosis with renal and cardiac involvement vs autonomic neuropathy vs post obstructive diuresis with volume depletion. Plan on discharge: - Midodrine 5 mg tid #Urinary retention 2/2 BPH #SINDI on CKD stage 4 2/2 AL amyloidosis - Cr 1.1 in 2021. In February 2023 he presented for an annual physical with his PCP and was found to have an SINDI with Cr 2.47. Since then, Cr has progressively up trended, and now it has stabilized at ~ 3.8-4, likely from Amyloidosis. - 08/28 US kidney/bladder: Markedly distended urinary bladder, perhaps chronic outlet obstruction due to BPH. Mild right hydroureteronephrosis, favored to be due to the markedly distended bladder. Nostones or left hydronephrosis. Increase in parenchymal echogenicity of kidneys due to underlying chronic kidney disease. - 09/01 US kidney/bladder: No hydronephrosis. Markedly dilated urinary bladder despite Senior catheter. Increased parenchymal echogenicity of kidneys secondary to underlying chronic kidney disease. 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 Diagnosed 03/2023 with kidney biopsy - Follows with Dr. Hugo (oncology) - Started on velcade, rituximab and dexamethasone in April 2023. Did not see much clinical improvement so was switched to Bendamustine 3 days ago (08/22/23) with a plan for Rituximab with cycle #2 per oncology notes - Heme/Onc consulted but determined no role for inpatient management Plan on discharge: - hematology follow-up outpatient #Malnutrition Likely secondary to amyloidosis and lymphoma, worsened iso acute illness. Plan: - Nutrition recommending daily Ensure Max and renal vitamin OPERATIONS/PROCEDURE DURING THIS HOSPITALIZATION: Procedure(s) (LRB): RIGHT HEART CATHETERIZATION INCLUDING MEASUREMENT OF OXYGEN SATURATION AND CARDIAC OUTPUT (N/A) Renvela was cost prohibitive. Using TUMS per nephrology recommendations. Midodrine 5 mg 3 times daily consistently. When he was tried on 10 mg, developed urinary retention. On dialysis M-W-. Appetite:Ravenous. Energy level:Exhausted. Denies fevers. Mouth:denies sores Resp:denies cough or sob Cardiac:denies chest pain/palpitations GI:denies abd pain, n/v, moving bowels regularly :denies dysuria/hematuria Extrem:denies pain Neuro:+neuropathy to toes Skin:denies rashes Heme:denies bleeding The ROS is otherwise negative. Past medical history, appointments, medications, allergies reviewed. No changes. EXAM: BP 92/58 Pulse 68 Temp 36.2 C (97.2 F) (Temporal) Wt 47.2 kg (104 lb) SpO2 98% BMI 16.29 kg/m APPEARANCE thin/fatigued appearing, alert, in no acute distress HEART RRR with normal S1 and S2, no murmurs LUNG clear to auscultation LYMPH NODES No cervical lymphadenopathy, No supraclavicular lymphadenopathy ABDOMEN bowel sounds normoactive, soft, non-tender EXTREMITIES No edema NEURO Awake, alert and oriented x 3, Normal gait, and No involuntary motions. SKIN Skin color, texture, turgor normal, no suspicious rashes or lesions LABS: Latest Ref Rng 02/27/2024 03/19/2024 WBC 3.70 - 11.00 k/uL 6.92 7.67 RBC 4.20 - 6.00 m/uL 2.85 (L) 2.83 (L) Hemoglobin 13.0 - 17.0 g/dL 9.9 (L) 9.6 (L) Hematocrit 39.0 - 51.0 % 30.3 (L) 30.2 (L) MCV 80.0 - 100.0 fL 106.3 (H) 106.7 (H) MCH 26.0 - 34.0 pg 34.7 (H) 33.9 MCHC 30.5 - 36.0 g/dL 32.7 31.8 RDW-CV 11.5 - 15.0 % 16.6 (H) 17.2 (H) Platelet Count 150 - 400 k/uL 276 234 MPV 9.0 - 12.7 fL 9.0 9.2 Neut% % 82.3 78.6 Abs Neut (ANC) 1.45 - 7.50 k/uL 5.70 6.03 Lymph% % 1.9 3.0 Abs Lymph 1.00 - 4.00 k/uL 0.13 (L) 0.23 (L) [place]% % 9.5 11.1 Abs [place] <0.87 k/uL 0.66 0.85 Eosin% % 5.1 5.9 Abs Eosin <0.46 k/uL 0.35 0.45 Baso% % 0.9 1.0 Abs Baso <0.11 k/uL 0.06 0.08 Immature Gran % % 0.3 0.4 IMMATURE GRANS (ABS) <0.10 k/uL <0.03 0.03 NRBC /100 WBC 0.0 0.0 Absolute nRBC <0.01 k/uL <0.01 <0.01 DTYPE Auto Auto CMP: Pending ASSESSMENT/PLAN: 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 Cardiac amyloidosis (HCC) - ICD9: 277.39, 425.7, ICD10: E85.4, I43 Per Dr. Hugo's previous note: Assessment: -The patient is a 73-year-old male with a past medical history significant for BPH. Over several months prior to presentation he had been experiencing progressive constitutional symptoms of muscle weakness/fatigue, metallic taste, malaise and hoarseness. He was found to have azotemia. -Work-up for SINDI significant for IgM kappa monoclonal protein. He had no diarrhea. No symptoms of sensory neuropathy. 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 -Baseline serum MP 0.7 g/dL. Baseline serum kappa free light chain 199.4 mg/dL. -CTs 04/06/2023 two small pulmonary nodules. No adenopathy or splenomegaly. -Serum kappa 36.3 mg/L as of 12/17. -Extremely hypotensive. -Continues to use diuretic. 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 He and the nursing team have serious concerns about his ability totolerate dialysis given his extremely low blood pressures. -Given his KPS, not currently a candidate for further cytotoxic chemotherapy. He is leaning towardshospice care. Plan: -Stop bumetanide. -Continue dialysis as far as tolerated for now. -Has follow-up with nephrology scheduled next week. -We will contact him early next week to see how he is feeling off diuretic. If improved then we will consider resuming chemotherapy. -Social work is helping him get into assisted living. - Overall tolerating treatment fair d/t fatigue. Has been hypotensive with dialysis. - Reviewed CBC with pt. - CMP pending. - Continue current medications. - Continue dialysis as tolerates. - Continue follow up with cards/PCP/nephrology. - Will repeat labs next week and will proceed with rituxan/bendamustine next Monday as scheduled pending all labs. - Follow up as scheduled. - Pt. aware to call office with any questions/concerns. The patient indicates understanding of these issues and agrees with the plan. All documentation from previous visit of 01/04/24-Dr. Hugo was copied and pasted, documentation hasbeen reviewed and edited as necessary for today's visit. Oanh Jim APRN.PRODUCT INTRODUCTION MANAGER documented in this encounterPremier Health [facility]06-13-2024 History of Present illness Narrative* Krystal Mata RN - 02/29/2024 10:43 AM EDT Assessment unchanged from 02/27/24 chemotherapy treatment. documented in this encounterPremier Health [facility] Hospital06-07-2024 Telephone encounter Note * Telephone Encounter - Cynthia Reese - 02/23/2024 1:23 PM EDT Schedule updated. Detailed message left on self identifying voicemail informing pt to come in at 1 on 02/26 for labs prior to treatment [facility] Work Phone: 1(365) 121-747906-07-2024 Miscellaneous Notes* Telephone Encounter - Cynthia Reese - 02/23/2024 1:23 PM EDT Schedule updated. Detailed message left on self identifying voicemail informing pt to come in at 1 on 02/26 for labs prior to treatment * Telephone Encounter - Sarah Chavez LPN - 02/23/2024 10:29 AM EDT For 02/22 we can do as astraight back on per Dr. Hugo. Sarah Chavez LPN Has not yet decided on 03/22 appt. Sarah Chavez LPN * Telephone Encounter - Cynthia Reese - 02/20/2024 3:40 PM EDT Next cycle for patient falls with office visit and lab on 03/22. Unable to schedule of course on . Please advise on this appointment as well. * Telephone Encounter - Cynthia Reese - 02/20/2024 3:19 PM EDT Patient called stating he is unable to come in for appointments on Mon, Wed and Fri due to dialysis. He states he cannot come in for 02/22 lab and office visit prior to treatment. Please advise if ok for straightback. Updating notes now for future appts and will adjust schedule. documented in this [facility] Telephone encounter Note * Telephone Encounter - Sarah Chavez LPN - 02/23/2024 10:29 AM EDT For 02/22 we can do as astraight back on per Dr. Hugo. Sarah Chavez LPN Has not yet decided on 03/22 appt. Sarah Cahvez LPN [facility]06-04[facility] Telephone encounter Note* Telephone Encounter - Cynthia Reese - 02/20/2024 3:40 PM EDT Next cycle for patient falls with office visit and lab on 03/22. Unable to schedule of course on . Please advise on this appointment as well. [facility]06-04-[facility] Telephone encounter Note* Telephone Encounter - Cynthia Reese - 02/20/2024 3:19 PM EDT Patient called stating he is unable to come in for appointments on Mon, Wed and Mon due to dialysis. He states he cannot come in for 02/22 lab and office visit prior to treatment. Please advise if ok for straightback. Updating notes now for future appts and will adjust schedule. [facility]04-[facility] Telephone encounter Note* Telephone Encounter - Jose Hugo DO - 01/10/2024 12:32 PM EDT I will give him a call later this afternoon or tomorrow. Jose Hugo DO [facility]04-24-2024 Miscellaneous Notes* Telephone Encounter - Jose Hugo DO - 01/10/2024 12:32 PM EDT I will give him a call later this afternoon or tomorrow. Jose Hugo DO * Telephone Encounter - Dina Tolentino RN - 01/10/2024 11:24 AM EDT [place] [facility] Coordination FOLLOW-UP NOTE Patient identified by name and date of . YES Spoke to patient Summary: (Reason for follow-up) Follow-up after holding Bumex Concerns: (New Barriers to care) Patient stated he does not feel any different since stopping Bumex. Patient stated he was not able to speak for long d/t leaving for dialysis. Patient is asking what the plan is with resuming chemotherapy? Care Coordination Plan: Will follow up after speaking to Dr. Kosta Tolentino RN January 10, 2024 documented in this encounterPrem[facility]04-[facility] Telephone encounter Note * Telephone Encounter - Dina Tolentino RN - 01/10/2024 11:24 AM EDT [place] [facility] Coord[facility] FOLLOW-UP NOTE Patient identified by name and date of . YES Spoke to patient Summary: (Reason for follow-up) Follow-up after holding Bumex Concerns: (New Barriers to care) Patient stated he does not feel any different since stopping Bumex. Patient stated he was not able to speak for long d/t leaving for dialysis. Patient is asking what the plan is with resuming chemotherapy? Care Coordination Plan: Will follow up after speaking to Dr. Kosta Tolentino RN January 10, 2024 [facility]04-18[facility] History of Present illness Narrative* Jose Hugo DO - 01/04/2024 10:47 AM EDT Diagnosis: 1) IgM kappa HPI: The patient is a 73 yo male with a PMH significant for BPH. Had labs 03/17/2023 for upcoming annual appointment with Dr. Herbert. Per Dr. Herbert's recent eveluation: Patient ws recently sent to [facility] due to SINDI. BUN was 47 and Crewas 2.47 with potassium of 5.3. patient used Excedrin on occasion, maybe a few times a month if that. Denies chronic NSAID use. EKG in ER showed ST-T wave changes in the lateral leads. 2D echo was unremarkable with normal LV size, mod concentric VH, systolic function was normal with an EF of 65%, mild diastolic dysfunction. His Trop level was elevated but since the echo was ok. No further cardiacw/u was pursued. An US of the kidnies and bladder showed possible chronic kidney disease, no hydronephrosis. Chest x-ray was normal. Patient was not started on any medications to go home on. He has an appt tomorrow with renal. CBC showed WBC normal at 6.8, Hg slightly low at 12.5, MCV was normal. Differential was unremarkable. Sodium, potassium, LFT's and TSH were al ok. Patient has been experiencing fatigue over the last 6 months. Also noticed a changed in his voice in the past 6 months off and on with hoarseness. Food has been tasting metalic Very Dry mouth. Has to take sips of water to help food go down. No N/V, diarrhea, hematochezia or melena. Eating less; no appetite. Has lost approx 10 lbs in past 1-2 months. Urination increased but always feeling thristy Swelling in both ankles and legs since maybe the beginning of this past year. Increased SOB and muscle fatigue No chest pain Stopped exercising in January due to fatigue and weakness. In October while he was swimming he felt like he was swimming in [place]. No shortness of breath. Denied chest heaviness, tightness or palpitations. Echo at [facility]: Interpretation Summary Normal LV size. Moderate concentric left ventricular hypertrophy. Left ventricular systolic function is normal. The estimated ejection fraction is 65 %. Stage 1 diastolic dysfunction. Pulmonary artery systolic pressure is 28 mmHg. Contrast injection was performed. Hospitalized at [facility] 08/25/2023 through 09/19/2023 for nonischemic heart failure with preservedejection fraction, volume management and SINDI. Per discharge summary. Mr. 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 Volume statusvery difficult to assess due to baseline elevated creatinine and patient's cachectic habitus. Originally diuresed with sx improvement, but RHC demonstrated patient intravascularly depleted so diuresis held and given PRN small volume fluid boluses. Hospitalization c/b orthostatic hypotension and worsening of chronic urinary retention. Discharged on midodrine 5mg tid, and senior catheter in situ. # HFpEF - 02/2023 TTE: LVH, stage 1 diastolic dysfunction, EF 65% - 08/2023 TTE: EF 59%, Grade I left ventricular diastolic dysfunction, biventricular wall thickening - 09/01 RHC: Low normal biventricular filling pressures, Preserved CO/CI by Julián, reduced by TD Plan on discharge: - Hold diuretics iso orthostatic hypotension - Encourage PO intake #Orthostatic hypotension Multiple CMETs called during hospital course for syncope or near-syncope secondary to orthostatic hypotension. Etiology likely hypovolemia c/b AL amyloidosis with renal and cardiac involvement vs autonomic neuropathy vs post obstructive diuresis with volume depletion. Plan on discharge: - Midodrine 5 mg tid #Urinary retention 2/2 BPH #SINDI on CKD stage 4 2/2 AL amyloidosis - Cr 1.1 in 2021. In February 2023 he presented for an annual physical with his PCP and was found to have an SINDI with Cr 2.47. Since then, Cr has progressively up trended, and now it has stabilized at ~ 3.8-4, likely from Amyloidosis. - 08/28 US kidney/bladder: Markedly distended urinary bladder, perhaps chronic outlet obstruction due to BPH. Mild right hydroureteronephrosis, favored to be due to the markedly distended bladder. Nostones or left hydronephrosis. Increase in parenchymal echogenicity of kidneys due to underlying chronic kidney disease. - 09/01 US kidney/bladder: No hydronephrosis. Markedly dilated urinary bladder despite Senior catheter. Increased parenchymal echogenicity of kidneys secondary to underlying chronic kidney disease. 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 Diagnosed 03/2023 with kidney biopsy - Follows with Dr. Hugo (oncology) - Started on velcade, rituximab and dexamethasone in April 2023. Did not see much clinical improvement so was switched to Bendamustine 3 days ago (08/22/23) with a plan for Rituximab with cycle #2 per oncology notes - Heme/Onc consulted but determined no role for inpatient management Plan on discharge: - hematology follow-up outpatient #Malnutrition Likely secondary to amyloidosis and lymphoma, worsened iso acute illness. Plan: - Nutrition recommending daily Ensure Max and renal vitamin OPERATIONS/PROCEDURE DURING THIS HOSPITALIZATION: Procedure(s) (LRB): RIGHT HEART CATHETERIZATION INCLUDING MEASUREMENT OF OXYGEN SATURATION AND CARDIAC OUTPUT (N/A) Renvela was cost prohibitive. Using TUMS per nephrology recommendations. Midodrine 5 mg 3 times daily consistently. When he was tried on 10 mg, developed urinary retention. Presents for ongoing oncologic management. Interim history: When last here, the nurses observed him trying to climb up onto the exam table because he needed tolie down. He required assistance. Blood pressure was 75/49. He was sent to the ED at [facility]. Blood pressure was a bit higher there. He was scheduled to have dialysis the day prior but it was canceled due to hypotension. He then went from the ED to dialysis and received his first 1 on 12/17. Today, he walked the length of the parking lot to come to the visit and can barely hold his head upat this point. He recalls having approximately 4 dialysis since last seen. Currently up to 3 hours per session. Blood pressure is an issue there. Still taking bumetanide. Living alone in his apartment. Barely able to get meals together. Still driving. No chest pain/pressure. PMH, medications and allergies personally reviewed by me today. Any changes documented in appropriate section. Social History Tobacco Use Smoking status: Never Smokeless tobacco: Never Vaping Use Vaping Use: Never used Substance Use Topics Alcohol use: No Drug use: No Not . No children. Family History Problem Relation Age of Onset Prostate Cancer Father Heart Father Pacemaker Cancer Father Hodgkin's lymphoma None Sister other (non hodgkins lymphoma) Sister Coronary Artery Disease No Family History ROS: Constitutional: No fever. No drenching night sweats. Neuro: No recent SELF. HEENT: No recent change in vision or hearing. Resp: See HPI. CVS: No PND or orthopnea. GI: No dysphagia or odynophagia. No reflux. No abdominal pain, bloating or distension. No black or bloody stools. : No dysuria or gross hematuria. Endo: No hot flashes. Musculoskeletal: No bone, back, joint and muscular pain. Derm: No current rash. No history of jaundice. No diffuse pruritis. Heme: No unusual bleeding and unexplained bruising. Psych: Normal mood. PHYSICAL EXAM: Vitals: Blood pressure (!) 61/34, pulse 85, temperature 37.1 C (98.7 F), resp. rate 12, weight 45.8kg (101 lb), SpO2 97%. Thin and fatigued-appearing and in no acute distress. EYES: Sclerae are anicteric bilaterally. LYMPHATIC: There is no palpable cervical or supraclavicular adenopathy. RESPIRATORY: Inspiratory breath sounds are of normal intensity in all muñoz. No rales, wheezes or rhonchi. CARDIOVASCULAR: Rhythm is regular. ABDOMEN: The abdomen is nondistended. Extremities: No swelling or edema. SKIN: No jaundice or rash. LABORATORY DATA: PATHOLOGY: Bone marrow biopsy 04/11/2023: A-C. 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 - Hypercellular bone marrow (60-70%) with maturing trilineage hematopoiesis. - Increased storage iron. - Positive for amyloid deposition (numerous blood vessels, [place] red stain confirmatory). - See comment. 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 Left kidney biopsy 04/14/2023: A. [facility] [place] left kidney biopsy: - [place] light chain amyloidosis extensively involving glomeruli, the tubulointerstitium and vessel cooper. - Tubular atrophy and interstitial fibrosis, moderate to severe. Light microscopy shows prominent amyloid accumulation within glomeruli, vessel cooper and in a patchy distribution in the tubulointerstitium. Immunofluorescence shows strong staining for kappa and essentially negative staining for the remaining tested reactants. Electron microscopy confirms the presence of 8 to 10 nm fibrosis characteristic of amyloidosis. 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 CARDIOLOGY: Echocardiogram 03/17/2023 done at [facility] demonstrated normal LV size with moderate concentric left ventricular hypertrophy and left ventricular systolic function normal with estimated ejection fraction 65%. Stage I diastolic dysfunction was observed. Pulmonary artery systolic pressure estimated at 28 mmHg. Echocardiogram same day demonstrated normal sinus rhythm with incomplete right bundle branch block ST and T wave abnormality, consider lateral ischemia, prolonged QT. Exercise stress test at [facility] 04/19/2023: Impression: 1. Inability to reach 85% of maximal age-predicted heart rate decreases the sensitivity of this test exercise tolerance test 2. Stress test is positive for exercise-induced EKG changes of ischemia. However the specificity ofthis finding is decreased because of baseline ST-T changes 3. The test test is negative for exercise-induced chest pain 4. Functional capacity is decreased for age 5. Nuclear images pending Myocardial perfusion imaging study: Technique: The patient was injected with 11.1 mCi of technetium 99m Cardiolite and subsequently rest SPECT Cardiolite nuclear imaging was obtained in the horizontal long, vertical long, and short axis views. The patient exercised on a Adria protocol. Please see above for details. The patient was injected with33.3 mCi of technetium 99m Cardiolite and subsequently stress SPECT Cardiolite nuclear imaging was obtained in the horizontal long, vertical long, and short axis views. A gated Cardiolite study at peak stress was obtained. Interpretation: Rest and stress SPECT Cardiolite nuclear imaging status post realignment, normalization, and attenuation correction, demonstrates mild decrease in the radioisotope uptake in the inferior wall prior to attenuation correction. After attenuation correction there is normal myocardial radioisotope uptake overall. These findings are suggestive of diaphragmatic attenuation artifact. The gated Cardiolitestudy demonstrates no significant regional wall motion abnormalities. The reported LVEF is 56%. Impression: 1. There is no definite evidence of ischemia. Please see the EKG portion of the test above as well.The sensitivity of this test is decreased because of inability to reach 85% of maximal age-predicted heart rate. 2. The gated Cardiolite study reports an LVEF of 56%. 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 Assessment: -The patient is a 73-year-old male with a past medical history significant for BPH. Over several months prior to presentation he had been experiencing progressive constitutional symptoms of muscle weakness/fatigue, metallic taste, malaise and hoarseness. He was found to have azotemia. -Work-up for SINDI significant for IgM kappa monoclonal protein. He had no diarrhea. No symptoms of sensory neuropathy. 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 -Baseline serum MP 0.7 g/dL. Baseline serum kappa free light chain 199.4 mg/dL. -CTs 04/06/2023 two small pulmonary nodules. No adenopathy or splenomegaly. -Serum kappa 36.3 mg/L as of 12/17. -Extremely hypotensive. -Continues to use diuretic. 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 He and the nursing team have serious concerns about his ability totolerate dialysis given his extremely low blood pressures. -Given his KPS, not currently a candidate for further cytotoxic chemotherapy. He is leaning towardshospice care. Plan: -Stop bumetanide. -Continue dialysis as far as tolerated for now. -Has follow-up with nephrology scheduled next week. -We will contact him early next week to see how he is feeling off diuretic. If improved then we will consider resuming chemotherapy. -Social work is helping him get into assisted living. Portions of this documentation were copied and pasted from previous office visit notes in order to provide a cohesive continuity of the history. The note has been reviewed and edited and updated as necessary. I spent a total of 25 minutes on the date of the service which included preparing to see the patient, [id number] patient care, completing clinical documentation, obtaining and/or reviewing separately obtained history, performing a medically appropriate examination, counseling and educating the pat ient/family/caregiver, ordering medications, tests, or procedures, communicating with other HCPs (not separately reported), and communicating results to the patient/family/caregiver. Jose Hugo DO documented in this encounterPrem[facility]04-17-[facility]24 Miscellaneous Notes* Telephone Encounter - Denise Wagoner LISW - 01/03/2024 10:06 AM EDT Spoke with Edgar and he is in agreement with referral to [facility] who will manage placement and conversations with Edgar, his insurance, facilities, etc. She will also follow up with Edgar and ensure he is receiving proper care once placed. Referral has been made and Kamryn is in process of working with Edgar. Pt remains very isolated and presents with depressive symptoms. No concern of self harm or suicidalideation. Pt appreciate of SW check in and remains in agreement with needing placement and assistance. RAUL Arevalo * Telephone Encounter - Jose Hugo DO - 01/02/2024 4:46 PM EDT Thank you. Agree with assisted living. He won't be able to care for himself at all much longer. Jose Hugo DO * Telephone Encounter - Orquidea Calhoun LPN - 01/02/2024 3:00 PM EDT Pt missed lab apt again. Was able to get a hold of him today, he states his legs feel very weak andhe has fallen. He says he fell today but no injury. I did advise him to keep cell phone on him so if he fell and did have an injury he could call squad. I also let him know if he fell and was unable to get up to call squad, they would assist him. He stated he thinks it may be time for him to consider assisted living. He does not want to go to the hospital. He has fatigue and sleeping more than half the day. He states he is eating and drinking. I asked him if he had food in the house, he said he did. I asked him if he could do a grocery delivery and he says he is trying to figure out how to set that up. He states he plans on trying to get to his apt here on . Orquidea Calhoun LPN documented in this encounterPrem[facility]04-10-2024 Miscellaneous Notes* Telephone Encounter - Denise Wagoner LISW - 12/27/2023 9:57 AM EDT SOCIAL WORK FOLLOW UP NOTE: [facility] Date of service: December 27, 2023 Edgar Henderson is being seen for a follow up social work visit. Today's visit includes: patient TOPICS ADDRESSED: coping/support and community resources INTERVENTION: SW called pt this date to discuss transportation resources per note below. Pt presents as depressive, withdrawn, hopeless and when asked how he is doing pt responded well, I'm dying. SW spent time discussing and navigating this with pt. SW and pt discussed services to assist pt including home health, transportation, emotional support/counseling. Pt reported a few times that he hasa lot of trouble taking care of himself as he lives alone and has no family or friends to assist him. SW discussed with pt considering a transition to assisted living or prison care facilities. Pt is adamantly opposed to moving. SW and pt discussed home health services and SW answered all questions. Pt agreed to SW referring him to [facility]. SW to refer this date and follow up as needed. SW and pt also discussed transportation needs. SW offered several agencies that can assist and offered to mail their contact information to pt as pt does not use [employer]. Pt in agreement with receiving information. SW encouraged pt if things worsen physically and/or emotionally to go to his local ED. Pt voiced understanding however also reported I hate that place. Pt agreed to SW check ins from time to time and reports I would appreciate that. PLAN: Referral to appropriate support group, Communicate pertinent medical/psychosocial informationto [facility] team, Continue follow up as needed , Provide emotional support to patient/family, and Referral to community resource F/U APPOINTMENT: PRN Assigned SW listed in Care Team tab: Yes REESE Arevalo-Blanche * Telephone Encounter - Jose Hugo DO - 12/25/2023 9:21 AM EDT I will not be giving medical clearance for blood pressure issues. I highly recommend that we look into transportation assistance for him. Jose Hugo DO * Telephone Encounter - Sarah Chavez LPN - 12/25/2023 9:02 AM EDT Spoke with pt. He is going to try to make dialysis today. He informed dialysis is at [facility] here [facility]. Questioned about his blood pressure, he states he has no way of checking it, informed he should schedule appt. With his PCP to be examined. [facility] dialysis contacted spoke with Sherie she informed she has had multiple discussions with pt. He has been dialyzed once for 2 hrs. Their concern is pt. Drives himself and they will not allow him to drive home after dialysis due to decreased B/P, they have offered for pt. To see their social science professor and pt. Won't hear of it. Also recommended he see his PCP and performance consultant. Sherie did inform if pt. Doesn't make it to dialysis today then he will need to be medically clearedbefore he will be allowed to return. Pt. Scheduled with Dr. Hugo 01/03 to discuss plan of care. Sarah Chavez LPN * Telephone Encounter - Sarah Chavez LPN - 12/22/2023 11:37 AM EDT Spoke with pt. Informed he needed to contact his tetryl nitrator operator to discuss issues with B/P and Dialysis. Sarah Chavez LPN * Telephone Encounter - Naa Randle - 12/22/2023 11:13 AM EDT Spoke with patient. He did not get dialysis on Monday and is not sure he is going today as he isexhausted and having BP problems - that it is too low for dialysis. He is scheduled for 01/03. Please advise if another course of action should be taken. Naa Randle * Telephone Encounter - Naa Randle - 12/21/2023 8:18 AM EDT Left message for patient to return call. When he calls, please schedule Est Complex with Dr. Hugo as soon as able to discuss the plan going forward. Naa Randle * Telephone Encounter - Cass Jacobs LPN - 12/20/2023 5:07 PM EDT PSS- patient is agreeable to come in for an est complex OV with Dr. Hugo- preferably soon. Please contact the patient to schedule. Cass Jacobs LPN * Telephone Encounter - Cass Jacobs LPN - 12/20/2023 8:42 AM EDT Left message for patient to contact office. Cass Jacobs LPN * Telephone Encounter - Jose Hugo DO - 12/19/2023 5:04 PM EDT We'll have to set up est complex visit for this. I think there is definitely going to be a time needed for him to adjust to dialysis and I agree he needs a break from treatment for the time being. Jose Hugo DO * Telephone Encounter - Cass Jacobs LPN - 12/19/2023 4:48 PM EDT Patient was able to have a 2 hour dialysis treatment yesterday. When I spoke to him, he stated the following: I'm totally exhausted. Nobody ever asks me what I'm capable of, they just hand me a calendar and expect me to do everything and it's like a full-time job. I just can't do it anymore. Patient would like to speak to Dr. Hugo regarding future expectations and possibly stopping treatment. Cass Jacobs LPN * Telephone Encounter - Jose Hugo DO - 12/19/2023 4:45 PM EDT Was he able to undergo dialysis yesterday? Jose Hugo DO * Telephone Encounter - Francisca Saenz - 12/19/2023 4:10 PM EDT Patient didn't come for treatment today. I know patient went to ED yesterday. How should we move forward with patient follow up. Scheduled for D2 on 12/19 and neulasta shot on 12/20. Francisca Land documented in this encounterPrem[facility] History of Present illness Narrative* Jose Hugo DO - 12/18/2023 9:36 AM EDT Not seen for office visit today. Patient was due to have dialysis on Monday but blood pressure was too low. He was sent to the ED at [facility]. Discharged home. Blood pressure this morning very low. After he was roomed, he tried crawling up onto the exam table by himself. We helpedhim get up and he was only able to lie supine and not open his eyes. Answered questions appropriately. Squad was called and sent to ED. Spoke with Dr. Sean Hugo DO documented in this encounterPremier [facility]03-26-2024 Miscellaneous Notes* Telephone Encounter - Jose Hugo DO - 12/12/2023 1:16 PM EDT Yes. Jose Hugo DO * Telephone Encounter - Naa Randle - 12/12/2023 11:42 AM EDT Patient presented at [facility] as he is starting Dialysis at [facility] in [place] this Monday,12/15/23, and will be having dialysis every Monday/Monday/Monday at 11:00 AM. Patient's schedule has been adjusted, with his D2 Bendamustine at either 9 or 9:[address] Hugo - is this ok? Naa Randle documented in this encounterPrem[facility]03-22-2024 History of Present illness Narrative* Laurie Downey LPN - 12/08/2023 2:04 PM EDT Patient presents for COVID vaccine. Denies any problems at this time. Tolerated injection well. Laurie Downey LPN documented in this encounterPrem[facility]03-21-2024 History of Present illness Narrative* Tana Marsh RT(R) - 12/07/2023 12:00 PM EDT Radiology Service Progress Note PATIENT NAME: Edgar Henderson DATE OF SERVICE: December 07, 2023 TIME: 11:28 AM PATIENT IDENTITY VERIFICATION COMPLETED USING TWO (2) IDENTIFIERS: Name and Date of confirmedby patient verbally. FALL SCREENING: Has the patient had 2 falls in the last year or 1 fall with injury or currently using an Ambulatory Assistive Device (Walker, Cane, Wheelchair, Crutches, etc.)? No PATIENT GENDER DATA: Male PATIENT RELEVANT IMPLANT DATA REVIEWED: Yes PATIENT PRESENTS WITH AN IMPLANTABLE OR ATTACHED LOCK EXPERT: No RADIOLOGY DEPARTMENT: General X-ray: Exam(s) Completed: Chest X-Ray PERIPHERAL IV DATA: Not applicable SIGNED BY: RT Lotus(R) December 07, 2023 11:28 AM documented in this [facility]03-21-2024 Miscellaneous Notes* Telephone Encounter - Xena Pagan APRN.PRODUCT INTRODUCTION MANAGER - 12/07/2023 11:17 AM EDT Voicemail left for patient. Xena Pagan APRN.CNP * Telephone Encounter - Maribel Tidwell - 12/07/2023 10:25 AM EDT Name of Caller: Edgar Henderson Relationship to patient: patient Last visit in this department: Visit date not found Reason for Call: Other : Patient got a call from the diayalisis coordinator, Sara regarding his procedure on Monday telling him he needs blood work and chest x ray prior. He is scheduled to go this morning to get his labs and chest x ray. Patient does not use My Chart and asking if someone can call him just to clarify why the blood work is needed.Thanks! Callback number: [phone] Maribel Tidwell documented in this encounterPremier [facility]03-20-2024 Miscellaneous Notes* Telephone Encounter - Gricel Bruno LPN - 12/06/2023 8:58 AM EDT Patient notified of results and provider's instructions. Patient verbalizes understanding. Gricel Bruno LPN * Telephone Encounter - Jose Miguel Herbert MD - 12/05/2023 8:47 PM EDT Let patient know his A1c is still elevated but stable at 5.7% (high end of normal is 5.6% and diabetes is 6.5%. continue to work on reduced sugars, sweets, carbs and starches in his diet. His lipid panel is markedly improved with all his numbers being at desirable levels. documented in this encounterPremier [facility]03-19-2024 History of Present illness Narrative* Gumaro Pérez DO - 12/05/2023 1:37 PM EDT Attempted to call patient about initiation of dialysis - no answer left voicemail. Now that egfr <10, with BUN >120 with a clear decline over the last 6-8 weeks its appropriate to plan to initiate dialysis now. Will work with coordinators and find him a chair and plan for catheter placement. documented in this encounterPremier [facility]03-14-2024 Nurse Note* Orquidea Calhoun LPN - 11/30/2023 2:43 PM EDT Pt here for injection of Nulasta. Given SQ in left arm. Pt tolerated well. Orquidea Calhoun LPN documented in this encounterPrem[facility]03-13-2024 History of Present illness Narrative* Jose Miguel Herbert MD - 11/29/2023 3:40 PM EDT Chief Complaint Patient presents with: F/U 6 months HPI Edgar Henderson is a 73 year old male who presents here today for 6 month follow up. Patient with Hx of abnormal thyroid lab, Al amyloidisis, Anemia, leg edema, [place] light chain disease, lymphoplasmacytic lymphoma, nonischemic cardiomyopathy, CKD, BPH as those as reviewed bellow Patient was recently diagnosed with the amyloidosis, CKD, k[place] light chain disease and lymphoplastic lymphoma and is set up with specialists for care. Patient has progressed onto stage 5 CKD and will most likely be beginning dialysis in the next few months. Is supposed to here from vascular. Any new concerns today? Just concerned about dialysis Any recent ER/hospital visits? Was admitted for acute heart failure back in August. Has been stable since. Past medical history, appointments, medications, allergies reviewed. Previous Medical History 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 Allergic rhinitis due to other allergen Anemia 03/23/2023 Benign prostatic hyperplasia with urinary obstruction 05/17/[address] 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 Medicare annual wellness visit, subsequent 01/27/2022 Medicare Part B: 08/18/2017 Last done: 01/27/2022 NICM (nonischemic cardiomyopathy) (HCC) 05/24/2023 Stage 3b chronic kidney disease (HCC) 05/24/2023 Urinary catheter change required 08/2023 Previous Surgical History PAST SURGICAL HISTORY Procedure Laterality Date COLONOSCOPY FLX DX W/COLLJ SPEC WHEN PFRMD 08/07/08 COLONOSCOPY FLX DX W/COLLJ SPEC WHEN PFRMD 06/07/2018 Colonoscopy RPR 1ST INGUN HRNA AGE 5 YRS/> REDUCIBLE Hernia repair, inguinal, bilateral SIGMOIDOSCOPY FLX DX W/COLLJ SPEC BR/WA IF PFRMD 2002 Sigmoidoscopy Family History FAMILY HISTORY Problem Relation Age of Onset Prostate Cancer Father Heart Father Pacemaker Cancer Father Hodgkin's lymphoma None Sister other (non hodgkins lymphoma) Sister Coronary Artery Disease No Family History Patient Allergies ALLERGIES No Known Allergies Current Medications Current Outpatient Medications on File Prior to Visit Medication Sig bumetanide (BUMEX) 0.5 mg tablet Take 1 tablet by mouth once daily. midodrine (PROAMITINE) 5 mg tablet Take 1 tablet by mouth three times a day. finasteride (PROSCAR) 5 mg tablet Take 1 tablet by mouth once daily. atorvastatin (LIPITOR) 20 mg tablet Take 1 tablet by mouth daily at bedtime. For cholesterol. acyclovir (ZOVIRAX) 200 mg capsule Take 1 capsule by mouth once daily. No current facility-administered medications on file prior to visit. Social History Social History Tobacco Use Smoking status: Never Smokeless tobacco: Never Vaping Use Vaping Use: Never used Substance Use Topics Alcohol use: No Drug use: No Review of Symptoms REVIEW OF SYSTEMS GENERAL: No weight loss, malaise or fevers NECK: Negative for lumps, goiter, pain and significant neck swelling RESPIRATORY: Negative for cough, hemoptysis, wheezing, COPD, dyspnea or shortness of breath CARDIOVASCULAR: Negative for chest pain, leg swelling, hypertension, CHF or palpitations GI: No nausea, vomiting, or diarrhea and No heartburn or reflux symptoms : No history of dysuria, frequency or incontinence PSYCH: some depression and frustration with the health changes he has developed. He has problems with motivation and energy ENDOCRINE: Negative for cold or heat intolerance, some polydipsia. NEURO: No history of headaches, syncope, paralysis, seizures or tremors EXAM: BP 98/64 (BP Site: Left Arm, BP Position: Sitting, BP Cuff Size: Regular Adult) Pulse 76 Wt 50.8 kg (112 lb) BMI 17.54 kg/m Last 4 Encounter Wt Readings: Date: Wt: 11/29/2023 50.8 kg (112 lb) 11/27/2023 48.3 kg (106 lb 6.4 oz) 11/24/2023 49.9 kg (110 lb) 11/16/2023 47.3 kg (104 lb 4.8 oz) General Appearance: Well appearing, alert, in no acute distress, well-hydrated, well nourished. thin Neck: Supple, no adenopathy; thyroid symmetric, normal size, no bruits. Lungs: Lungs clear to auscultation. No wheezing, rhonchi, rales.. Heart: RRR without murmur, gallop, or rubs. No ectopy. Abdomen: Normal abdominal exam, Abdomen soft, non-tender. Bowel sounds normal. No masses, organomegaly. Extremities: No deformities, edema, skin discoloration, Peripheral Pulses: Normal. Health Maintenance List RSV Vaccine(1 - 1-dose 60+ series) Never done Advance Directive Discussion due on 09/18/2023 Depression Assessment due on 09/18/2023 Covid-19 Vaccine( season) due on 10/04/2023 Annual PCP Team Chronic Disease Visit due on 10/26/2024 Serum Creatinine due on 11/26/2024 Hemoglobin/Hematocrit due on 11/26/2024 Diabetes Screening due on 11/26/2026 Colorectal Cancer Screening due on 06/07/2028 Lipid Screening due on 06/19/2028 DTaP,Tdap,Td Vaccine(3 - Td or Tdap) due on 02/28/2033 Influenza Vaccine Completed Shingrix Vaccine Completed Pneumococcal Vaccine: 65+ Completed HPV Vaccine Aged Out Hepatitis C Screening Discontinued Data reviewed Latest Ref Rng 06/19/2023 08/25/2023 09/18/2023 09/26/2023 11/21/2023 11/27/2023 WBC 3.70 - 11.00 k/uL 9.06 6.75 RBC 4.20 - 6.00 m/uL 2.72 (L) 3.07 (L) Hemoglobin 13.0 - 17.0 g/dL 9.5 (L) 10.2 (L) Hematocrit 39.0 - 51.0 % 28.6 (L) 31.2 (L) MCV 80.0 - 100.0 fL 105.1 (H) 101.6 (H) MCH 26.0 - 34.0 pg 34.9 (H) 33.2 MCHC 30.5 - 36.0 g/dL 33.2 32.7 RDW-CV 11.5 - 15.0 % 15.6 (H) 14.4 Platelet Count 150 - 400 k/uL 178 278 MPV 9.0 - 12.7 fL 9.8 9.4 Neut% % 86.1 82.5 Abs Neut (ANC) 1.45 - 7.50 k/uL 7.80 (H) 5.57 Lymph% % 3.8 1.6 Abs Lymph 1.00 - 4.00 k/uL 0.34 (L) 0.11 (L) [place]% % 8.2 12.0 Abs [place] <0.87 k/uL 0.74 0.81 Eosin% % 1.3 3.0 Abs Eosin <0.46 k/uL 0.12 0.20 Baso% % 0.4 0.6 Abs Baso <0.11 k/uL 0.04 0.04 Immature Gran % % 0.2 0.3 IMMATURE GRANS (ABS) <0.10 k/uL <0.03 <0.03 NRBC /100 WBC 0.0 0.0 Absolute nRBC <0.01 k/uL <0.01 <0.01 DTYPE Auto Auto Protein, Total 6.3 - 8.0 g/dL 5.6 (L) Albumin 3.9 - 4.9 g/dL 3.2 (L) Calcium 8.5 - 10.2 mg/dL 8.9 8.7 Bilirubin, Total 0.2 - 1.3 mg/dL 0.2 Alkaline Phosphatase 38 - 113 U/L 123 (H) AST 14 - 40 U/L 21 ALT 10 - 54 U/L 29 Glucose 74 - 99 mg/dL 89 135 (H) BUN 9 - 24 mg/dL 98 (H) 103 (H) Creatinine 0.73 - 1.22 mg/dL 5.39 (H) 4.94 (H) Sodium 136 - 144 mmol/L 140 138 Potassium 3.7 - 5.1 mmol/L 3.7 4.4 Chloride 97 - 105 mmol/L 103 105 CO2 22 - 30 mmol/L 24 21 (L) Anion Gap 9 - 18 mmol/L 13 12 eGFR >=60 mL/min/1.73m 11 (L) 12 (L) Total Cholesterol, Nonfasting <200 mg/dL 380 (H) Triglycerides, Nonfasting <150 mg/dL 232 (H) HDL Cholesterol, Nonfasting >39 mg/dL 64 LDL Cholesterol, Nonfasting <100 mg/dL 270 (H) Non HDL Cholesterol, Nonfasting <130 mg/dL 316 (H) VLDL Cholesterol, Nonfasting <30 mg/dL 46 (H) Total Chol/HDL Ratio, Nonfasting <5.10 mg/dL 5.94 (H) LDL/HDL Ratio, Nonfasting <2.54 mg/dL 4.22 (H) Hemoglobin A1C 4.3 - 5.6 % 5.7 (H) Estimated Average Glucose mg/dL 117 TSH 0.270 - 4.200 mIU/L 3.010 Free T4 0.9 - 1.7 ng/dL 1.5 T3 79 - 165 ng/dL 88 Magnesium 1.7 - 2.3 mg/dL 2.2 A/P ASSESSMENT/PLAN: 1. Hyperlipidemia, mixed - ICD9: 272.2, ICD10: E78.2 (primary diagnosis) - await labs - Continue current medications - Counseled on healthy diet and regular exercise - LIPID PANEL, NONFASTING 2. Elevated hemoglobin A1c - ICD9: 790.29, ICD10: R73.09 - check A1c 3. AL amyloidosis (HCC) - ICD9: 277.39, ICD10: E85.81 - see Cardio, Renal and hematology 4. 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- ICD9: 200.80, ICD10: C83.00 - management per Hematology 5. Cardiac amyloidosis (HCC) - ICD9: 277.39, 425.7, ICD10: E85.4, I43 - management per cardio 6. Chronic diastolic congestive heart failure (HCC) - ICD9: 428.32, 428.0, ICD10: I50.32 - stable and as per #5 7. NICM (nonischemic cardiomyopathy) (HCC) - ICD9: 425.4, ICD10: I42.8 - as per #5 8. 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 CKD (chronic kidney disease) stage 5, GFR less than 15 ml/min (HCC) - ICD9: 585.5, ICD10: N18.5 - management per renal 10. Secondary hyperparathyroidism, renal (HCC) - ICD9: 588.81, ICD10: N25.81 - as per #9 11. Bilateral leg edema - ICD9: 782.3, ICD10: R60.0 - none on exam 12. Anemia, unspecified type - ICD9: 285.9, ICD10: D64.9 - management per hematology 13. Abnormal thyroid blood test - ICD9: 790.6, ICD10: R79.89 - labs in Aug were normal. Will monitor 14. Advance directive discussed with patient - ICD9: V65.49, ICD10: Z71.89 - up to date. 15. Situational depression - ICD9: 309.0, ICD10: F43.21 - discussed starting sertraline at 25 mg 1/2 a tab for 2 weeks and then a full tab a day. Patient will consider this. F/u in 6 months extensive. Jose Miguel Herbert MD documented in this encounterPrem[facility]03-11-2024 History of Present illness Narrative* Oanh Jim, JAELYN.PRODUCT INTRODUCTION MANAGER - 11/27/2023 11:54 AM EDT Chief Complaint Patient presents with: Established Patient HPI: Edgar Henderson is a 73 year old male who presents here today for evaluation for treatment tomorrow. Per Dr. Hugo's previous note: H/o BPH. Had labs 03/17/2023 for upcoming annual appointment with Dr. Herbert. Per Dr. Herbert's recent eveluation: Patient ws recently sent to [facility] due to SINDI. BUN was 47 and Crewas 2.47 with potassium of 5.3. patient used Excedrin on occasion, maybe a few times a month if that. Denies chronic NSAID use. EKG in ER showed ST-T wave changes in the lateral leads. 2D echo was unremarkable with normal LV size, mod concentric VH, systolic function was normal with an EF of 65%, mild diastolic dysfunction. His Trop level was elevated but since the echo was ok. No further cardiacw/u was pursued. An US of the kidnies and bladder showed possible chronic kidney disease, no hydronephrosis. Chest x-ray was normal. Patient was not started on any medications to go home on. He has an appt tomorrow with renal. CBC showed WBC normal at 6.8, Hg slightly low at 12.5, MCV was normal. Differential was unremarkable. Sodium, potassium, LFT's and TSH were al ok. Patient has been experiencing fatigue over the last 6 months. Also noticed a changed in his voice in the past 6 months off and on with hoarseness. Food has been tasting metalic Very Dry mouth. Has to take sips of water to help food go down. No N/V, diarrhea, hematochezia or melena. Eating less; no appetite. Has lost approx 10 lbs in past 1-2 months. Urination increased but always feeling thristy Swelling in both ankles and legs since maybe the beginning of this past year. Increased SOB and muscle fatigue No chest pain Stopped exercising in January due to fatigue and weakness. In October while he was swimming he felt like he was swimming in [place]. No shortness of breath. Denied chest heaviness, tightness or palpitations. Echo at [facility]: Interpretation Summary Normal LV size. Moderate concentric left ventricular hypertrophy. Left ventricular systolic function is normal. The estimated ejection fraction is 65 %. Stage 1 diastolic dysfunction. Pulmonary artery systolic pressure is 28 mmHg. Contrast injection was performed. Hospitalized at [facility] 08/25/2023 through 09/19/2023 for nonischemic heart failure with preservedejection fraction, volume management and SINDI. Per discharge summary. Mr. 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 Volume statusvery difficult to assess due to baseline elevated creatinine and patient's cachectic habitus. Originally diuresed with sx improvement, but RHC demonstrated patient intravascularly depleted so diuresis held and given PRN small volume fluid boluses. Hospitalization c/b orthostatic hypotension and worsening of chronic urinary retention. Discharged on midodrine 5mg tid, and senior catheter in situ. # HFpEF - 02/2023 TTE: LVH, stage 1 diastolic dysfunction, EF 65% - 08/2023 TTE: EF 59%, Grade I left ventricular diastolic dysfunction, biventricular wall thickening - 09/01 RHC: Low normal biventricular filling pressures, Preserved CO/CI by Julián, reduced by TD Plan on discharge: - Hold diuretics iso orthostatic hypotension - Encourage PO intake #Orthostatic hypotension Multiple CMETs called during hospital course for syncope or near-syncope secondary to orthostatic hypotension. Etiology likely hypovolemia c/b AL amyloidosis with renal and cardiac involvement vs autonomic neuropathy vs post obstructive diuresis with volume depletion. Plan on discharge: - Midodrine 5 mg tid #Urinary retention 2/2 BPH #SINDI on CKD stage 4 2/2 AL amyloidosis - Cr 1.1 in 2021. In February 2023 he presented for an annual physical with his PCP and was found to have an SINDI with Cr 2.47. Since then, Cr has progressively up trended, and now it has stabilized at ~ 3.8-4, likely from Amyloidosis. - 08/28 kidney/bladder: Markedly distended urinary bladder, perhaps chronic outlet obstruction due to BPH. Mild right hydroureteronephrosis, favored to be due to the markedly distended bladder. Nostones or left hydronephrosis. Increase in parenchymal echogenicity of kidneys due to underlying chronic kidney disease. - 09/01 US kidney/bladder: No hydronephrosis. Markedly dilated urinary bladder despite Senior catheter. Increased parenchymal echogenicity of kidneys secondary to underlying chronic kidney disease. 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 Diagnosed 03/2023 with kidney biopsy - Follows with Dr. Hugo (oncology) - Started on velcade, rituximab and dexamethasone in April 2023. Did not see much clinical improvement so was switched to Bendamustine 3 days ago (08/22/23) with a plan for Rituximab with cycle #2 per oncology notes - Heme/Onc consulted but determined no role for inpatient management Plan on discharge: - hematology follow-up outpatient #Malnutrition Likely secondary to amyloidosis and lymphoma, worsened iso acute illness. Plan: - Nutrition recommending daily Ensure Max and renal vitamin OPERATIONS/PROCEDURE DURING THIS HOSPITALIZATION: Procedure(s) (LRB): RIGHT HEART CATHETERIZATION INCLUDING MEASUREMENT OF OXYGEN SATURATION AND CARDIAC OUTPUT (N/A) Renvela was cost prohibitive. Using TUMS per nephrology recommendations. Appetite:Ravenous. Wt. down 8# over past month. Energy level:It's low. Denies fevers. Mouth:denies sores Resp:denies cough or sob, finnegan with steps Cardiac:denies chest pain/palpitations GI:denies abd pain, n/v, moving bowels regularly :denies dysuria/hematuria Extrem:denies pain Neuro:+neuropathy to feet Skin:denies rashes Heme:denies bleeding The ROS is otherwise negative. Past medical history, appointments, medications, allergies reviewed. No changes. EXAM: BP 97/68 Pulse 84 Temp 36.9 C (98.5 F) (Temporal) Wt 48.3 kg (106 lb 6.4 oz) SpO2 99% BMI16.66 kg/m APPEARANCE thin appearing, alert, in no acute distress, well-hydrated HEART RRR with normal S1 and S2, no murmurs LUNG clear to auscultation LYMPH NODES No cervical lymphadenopathy, No supraclavicular lymphadenopathy, and No axillary lymphadenopathy. ABDOMEN bowel sounds normoactive, soft, non-tender EXTREMITIES No edema NEURO Awake, alert and oriented x 3, Normal gait, and No involuntary motions. SKIN Skin color, texture, turgor normal, no suspicious rashes or lesions LABS: Component Latest Ref Rng & Units 11/07/2023 11/14/2023 11/21/2023 11/27/2023 WBC 3.70 - 11.00 k/uL 43.65 (H) 16.58 (H) 8.07 6.75 RBC 4.20 - 6.00 m/uL 2.81 (L) 3.00 (L) 2.83 (L) 3.07 (L) Hemoglobin 13.0 - 17.0 g/dL 9.8 (L) 10.3 (L) 9.7 (L) 10.2 (L) Hematocrit 39.0 - 51.0 % 29.6 (L) 30.7 (L) 29.5 (L) 31.2 (L) MCV 80.0 - 100.0 fL 105.3 (H) 102.3 (H) 104.2 (H) 101.6 (H) MCH 26.0 - 34.0 pg 34.9 (H) 34.3 (H) 34.3 (H) 33.2 MCHC 30.5 - 36.0 g/dL 33.1 33.6 32.9 32.7 RDW-CV 11.5 - 15.0 % 15.1 (H) 15.0 14.6 14.4 Platelet Count 150 - 400 k/uL 301 217 236 278 MPV 9.0 - 12.7 fL 9.9 9.5 9.6 9.4 NRBC /100 WBC 0.0 0.0 0.0 0.0 Absolute nRBC <0.01 k/uL <0.01 <0.01 <0.01 <0.01 Neut% % 89.0 93.2 86.3 82.5 Abs Neut (ANC) 1.45 - 7.50 k/uL 38.85 (H) 15.46 (H) 6.97 5.57 Lymph% % 0.0 0.5 0.9 1.6 Abs Lymph 1.00 - 4.00 k/uL 0.00 (L) 0.08 (L) 0.07 (L) 0.11 (L) [place]% % 7.0 4.4 9.5 12.0 Abs [place] <0.87 k/uL 3.06 (H) 0.73 0.77 0.81 Eosin% % 2.0 0.8 1.9 3.0 Abs Eosin <0.46 k/uL 0.87 (H) 0.13 0.15 0.20 Baso% % 0.0 0.5 1.0 0.6 Abs Baso <0.11 k/uL 0.00 0.08 0.08 0.04 Promyl% % 2.0 Left Shift Present Platelet Estimate Adequate Red Cell Morph Reviewed: see results of individual morphologies Ovalocytes Few RBC Fragments None Seen Few (A) DTYPE Manual Auto Auto Auto Immature Gran % % 0.6 0.4 0.3 IMMATURE GRANS (ABS) <0.10 k/uL 0.10 (H) 0.03 <0.03 Component Latest Ref Rng & Units 11/07/2023 11/14/2023 11/21/2023 11/27/2023 Protein, Total 6.3 - 8.0 g/dL 5.9 (L) Albumin 3.9 - 4.9 g/dL 3.4 (L) Calcium 8.5 - 10.2 mg/dL 8.9 8.7 8.7 9.1 Bilirubin, Total 0.2 - 1.3 mg/dL 0.2 Alkaline Phosphatase 38 - 113 U/L 135 (H) AST 14 - 40 U/L 26 ALT 10 - 54 U/L 50 Glucose 74 - 99 mg/dL 152 (H) 133 (H) 135 (H) 69 (L) BUN 9 - 24 mg/dL 97 (H) 89 (H) 103 (H) 104 (H) Creatinine 0.73 - 1.22 mg/dL 4.63 (H) 4.33 (H) 4.94 (H) 5.02 (H) Sodium 136 - 144 mmol/L 138 138 138 138 Potassium 3.7 - 5.1 mmol/L 4.3 4.2 4.4 3.8 Chloride 97 - 105 mmol/L 105 104 105 104 CO2 22 - 30 mmol/L 22 23 21 (L) 20 (L) Anion Gap 9 - 18 mmol/L 11 11 12 14 eGFR >=60 mL/min/1.73m 13 (L) 14 (L) 12 (L) 12 (L) MM labs: Pending ASSESSMENT/PLAN: 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 Renal amyloidosis (HCC) (HCC) - ICD9: 277.39, 583.81, ICD10: E85.4, N08 4. Cardiac amyloidosis (HCC) - ICD9: 277.39, 425.7, ICD10: E85.4, I43 - Overall tolerating treatment well. - Reviewed CBC/CMP with pt. and Dr. Hugo. - Continue current medications. - Continue follow up with nephrology/cardiology. - Proceed as scheduled tomorrow for #3 rituxan/bendamustine pending all labs. - Follow up as scheduled. - Pt. aware to call office with any questions/concerns. The patient indicates understanding of these issues and agrees with the plan. Discussed case with Dr. Hugo who agrees with treatment plan. All documentation from previous visit of 10/27/23-Dr. Hugo was copied and pasted, documentation has been reviewed and edited as necessary for today's visit. 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 -expressed there is a high chance of needing dialysis within the next 3 months. After long discussion of options (dialysis vs conservative care) risks benefits and OTP discussion today, I'll make thereferral for vascular surgery for access creation - he expressed himself by saying not ready to give up yet and thus we'll plan for dialysis now. However he's going to see palliative care, and I encourage this regardless. -Bumex at 0.5 -continue to follow weekly labs with oncology -d/w palliative consult per ct surgery 2.Volume - sensitive with diastolic dys. Iso amyloid, on midodrine for orthostasis. 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 Did not see much clinical improvement per the notes so was switched to Bendamustine (08/22/23) with addition of ritux. Baseline serum MP 0.7 g/dL. Baseline serum kappa free light chain 199.4 mg/dL. Now [place] down to 63 and m protein 0. Also had urinary retention with chronic senior noted on recent admission followed by urology, since been out. Had sindi as result that is reovery . Is on midodrine for orthostasis, Current Outpatient Medications Medication Instructions acyclovir (ZOVIRAX) 200 mg, ORAL, DAILY atorvastatin (LIPITOR) 20 mg, ORAL, AT BEDTIME, For cholesterol. bumetanide (BUMEX) 0.5 mg, ORAL, DAILY finasteride (PROSCAR) 5 mg, ORAL, DAILY midodrine (PROAMITINE) 5 mg, ORAL, 3 TIMES DAILY OBJECTIVE PHYSICAL EXAM: VS: 96/64 Gen: no distress Breathing comfortably LE: no edema HR: normal rate Intake/Output None DATA: Diagnostic tests reviewed for today's visit: Most recent labs and imaging results. CBC, Coags, BMP, Mg, Phos Recent Labs 11/21/23 1144 WBC 8.07 HB 9.7* HCT 29.5* PLT 236 NA 138 K 4.4 CHLOR 105 CO2 21* BUN 103* CREAT 4.94* GLUC 135* CA 8.7 Liver Function, Amylase, & Lipase ABGs I spent 60 minutes, preparing to see the patient, discussing high risk treatment options including dialysis, reviewing labs, making referrals and discussion with other health care providers. SIGNATURE: Gumaro Pérez DO DATE: November 24, 2023 TIME: 9:36 AM documented in this encounterPremier Health Miami [facility]03-08-2024 Instructions* Patient Instructions* Xena Pagan APRN.CNP - 11/24/2023 1:25 PM EST [email or web address] documented in this encounterPremier Health [facility]03-08-2024 History of Present illness Narrative* Xena Pagan APRN.CNP - 11/24/2023 1:00 PM EST Date: 11/24/23 Time:1300 Optimal Transition Program Education visit Referred by: Dr. 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 Met with patient individually. CKD education provided including topics related to understanding kidney function, chronic kidney disease and associated lab values and possible symptoms. We discussed dialysis modalities including HD (in- center and home) and PD as well as associated access. Pt has notbeen referred for kidney transplant evaluation given his current cardiac state. Pt is undecided on preferred modality; with current eGFR of 12 mL/min. Pt is aware of s/sx of uremia to report and denies any current symptoms. Discussed need for dialysis planning to allow most control of decision making and prevent emergent start. Pt has scheduled follow-up with Dr. Pérez today. I've urged him to keep as well as routine lab monitoring as recommended by primary provider. Patient has expressed interest in palliative care and has the number to call for appointment. He is considering in-center hemodialysis and would like more information on in-center centers near his [place] in [place]. He is interested in vascular referral for their opinion on options. Dr. Pérez was updated on the patient's preference and will be seeing the patient today. Provided resources via AVS and in-person. I spent 60 minutes in the visit of [id number] time in counseling/education. Xena Pagan APRN.CNP documented in this encounterPremier Health [facility]03-06-2024 Miscellaneous Notes* Telephone Encounter - Megan Diez - 11/22/2023 3:32 PM EST Telephone call to patient to offer initial palliative medicine appointment. Patient is aware of thereferral and refuse to schedule at this time. Edgar states he would like to wait until Dr. Alcala returns. Patient was given the number to the scheduling office at [phone] if he changes his mind. Megan Diez, Preparation Supervisor [place] documented in this encounterPremier Health Miami [facility] Hospital02-29-2024 Instructions* Patient Instructions* Talia Russell APRN.CNP - 11/16/2023 3:30 PM EST -No medication changes today. -Follow-up with Dr. Reyes on 03/08/2024. Please let me know if you are having issues and I can seeyou sooner. documented in this encounterPremier Health [facility]02-29-2024 History of Present illness Narrative* Talia Russell APRN.CNP - 11/16/2023 3:10 PM EST Images from the original note were not included. [facility] [place] [facility] SECTION OF HEART FAILURE and CARDIAC TRANSPLANT MEDICINE OUTPATIENT VISIT DATE 11/16/2023 PRIMARY CARE PHYSICIAN: Jose Miguel Herbert [address] [place] [address] PRIMARY HEART FAILURE BIOASSAYIST: Dr. Reyes CHIEF COMPLAINT: Follow-up HISTORY OF PRESENT ILLNESS: Edgar Henderson is a 73 year old male seen today by me for follow-up. He was most recently seen by me on 10/05/2023 and the following recommendations were made: -Resume Bumex 0.5 mg (diuretic) on Mon-Wed-Fri for swelling in your ankles. -Follow-up with Dr. Reyes in ~1 month. Since his last visit: -He saw his kidney doctor and was told to take bumex daily. -He feels his mood is down. SOB: no Fatigue: may be a little decreased Orthopnea: no PND: no Bendopnea: no Edema: no Chest Pain: no Palpitations: no Dizziness/Lightheadedness: occasionally Syncope: no Appetite: very good, denies nausea, denies early satiety Dietary restrictions: does not add salt, but does not measure Fluid Restriction: under 64 ounces Regular Exercise/ Activity: running errands and stairs in his apt. Performs daily weights: no 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 Allergic rhinitis due to other allergen Anemia 03/23/2023 Benign prostatic hyperplasia with urinary obstruction 05/17/[address] 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 Medicare annual wellness visit, subsequent 01/27/2022 Medicare Part B: 08/18/2017 Last done: 01/27/2022 NICM (nonischemic cardiomyopathy) (HCC) 05/24/2023 Stage 3b chronic kidney disease (HCC) 05/24/2023 Urinary catheter change required 08/2023 PAST SURGICAL HISTORY Procedure Laterality Date COLONOSCOPY FLX DX W/COLLJ SPEC WHEN PFRMD 08/07/08 COLONOSCOPY FLX DX W/COLLJ SPEC WHEN PFRMD 06/07/2018 Colonoscopy RPR 1ST INGUN HRNA AGE 5 YRS/> REDUCIBLE Hernia repair, inguinal, bilateral SIGMOIDOSCOPY FLX DX W/COLLJ SPEC BR/WA IF PFRMD 2002 Sigmoidoscopy SOCIAL HISTORY Social History Tobacco Use Smoking status: Never Smokeless tobacco: Never Vaping Use Vaping Use: Never used Substance Use Topics Alcohol use: No Drug use: No FAMILY HISTORY Problem Relation Age of Onset Prostate Cancer Father Heart Father Pacemaker Cancer Father Hodgkin's lymphoma None Sister other (non hodgkins lymphoma) Sister Coronary Artery Disease No Family History ALLERGIES: ALLERGIES No Known Allergies CURRENT MEDICATIONS: finasteride (PROSCAR) 5 mg tablet Take 1 tablet by mouth once daily. bumetanide (BUMEX) 1 mg tablet Take 1 tablet by mouth once daily. midodrine (PROAMITINE) 5 mg tablet Take 1 tablet by mouth three times a day. atorvastatin (LIPITOR) 20 mg tablet Take 1 tablet by mouth daily at bedtime. For cholesterol. acyclovir (ZOVIRAX) 200 mg capsule Take 1 capsule by mouth once daily. REVIEW OF SYSTEMS: See HPI PHYSICAL EXAMINATION: BP 102/61 Pulse 84 Ht 170.2 cm (5' 7) Wt 47.3 kg (104 lb 4.8 oz) SpO2 99% BMI 16.34 kg/m -Hospital discharge weight: 110 lbs Last weight on home scale: n/a Last 6 Encounter Wt Readings: Date: Wt: 11/16/2023 47.3 kg (104 lb 4.8 oz) 10/27/2023 51.9 kg (114 lb 8 oz) 10/26/2023 51.7 kg (114 lb) 10/23/2023 55.3 kg (122 lb) 10/05/2023 55.4 kg (122 lb 3.2 oz)- last visit 10/03/2023 51.7 kg (114 lb) General appearance: No acute distress, conversant, sarcopenic Neurologic/Psychiatric: Alert and oriented to time, place and person; mood pleasant. Gait grossly normal HEENT: PERRLA and EOM's intact, neck supple, no carotid bruits, grossly normal thyroid, normal hearing Neck: JVP appears normal. Trachea midline, full range of motion Heart: Rate regular. S1, S2 present. No gallop. No Rub. No murmur. Lungs: clear bilaterally. Normal work of breathing, speaking in full sentences without difficulty. Abdomen: soft, non-distended, non-tender, normal bowel sounds, no organomegaly noted Extremities: Nails no clubbing or cyanosis. Warm, peripheral pulses palpable, no BLE edema, Changesof chronic venous insufficieny to BLE Skin: Warm and dry. No rash or ulcers CARDIOVASCULAR MEDICINE TESTING: I have personally reviewed the Electrocardiogram, Chest X-ray, Laboratory Testing, and Echocardiogram. Echocardiogram: CONCLUSIONS: - Exam indication: HF - The left ventricle is normal in size. There is concentric left ventricular hypertrophy. Left ventricular systolic function is normal. EF = 59 5% (2D biplane) Grade I left ventricular diastolic dysfunction. -biventricular wall thickening, consider infiltrative cardiomyopathy - The right ventricle is normal in size. Right ventricular systolic function is normal. - The left atrial cavity is moderately dilated. - The right atrial cavity is dilated. - There are no significant valvular abnormalities. - Estimated right ventricular systolic pressure is likely underestimated due to a weak or incomplete tricuspid regurgitation signal and is, at least, 30 mmHg consistent with normal pulmonary artery pressures. Estimated right atrial pressure is 3 mmHg based on IVC assessment. - There are no signifcant respiratory variations through TV/MV. IVC measures normal and collapses >50%. - The patient has not had a prior CC echocardiographic exam for comparison. Labs: Component Latest Ref Rng & Units 09/15/2023 09/16/2023 2023 09/18/2023 09/19/2023 09/26/2023 09/29/2023 10/02/2023 Protein, Total 6.3 - 8.0 g/dL 5.6 (L) 5.1 (L) Albumin 3.9 - 4.9 g/dL 2.8 (L) 2.7 (L) 2.6 (L) 2.7 (L) 2.7 (L) 3.2 (L) 3.1 (L) Calcium 8.5 - 10.2 mg/dL 9.0 9.1 9.1 8.6 8.7 8.9 8.3 (L) 8.3 (L) Bilirubin, Total 0.2 - 1.3 mg/dL 0.2 0.2 Alkaline Phosphatase 38 - 113 U/L 123 (H) 124 (H) AST 14 - 40 U/L 21 20 ALT 10 - 54 U/L 29 32 Glucose 74 - 99 mg/dL 113 (H) 96 130 (H) 100 (H) 99 89 77 183 (H) BUN 9 - 24 mg/dL 110 (H) 105 (H) 103 (H) 102 (H) 95 (H) 98 (H) 94 (H) 83 (H) Creatinine 0.73 - 1.22 mg/dL 3.93 (H) 3.97 (H) 4.01 (H) 3.75 (H) 3.98 (H) 5.39 (H) 4.78 (H) 4.71 (H) Sodium 136 - 144 mmol/L 139 142 141 142 140 140 142 140 Potassium 3.7 - 5.1 mmol/L 4.4 4.6 4.2 4.1 4.3 3.7 3.5 (L) 3.8 Chloride 97 - 105 mmol/L 105 107 (H) 109 (H) 110 (H) 109 (H) 103 103 103 CO2 22 - 30 mmol/L 18 (L) 19 (L) 17 (L) 17 (L) 16 (L) 24 26 27 Anion Gap 9 - 18 mmol/L 16 16 15 15 15 13 13 10 eGFR >=60 mL/min/1.73m 16 (L) 15 (L) 15 (L) 16 (L) 15 (L) 11 (L) 12 (L) 13 (L) Phosphorus 2.7 - 4.8 mg/dL 6.2 (H) 6.8 (H) 6.4 (H) 6.2 (H) 5.9 (H) Magnesium 1.7 - 2.3 mg/dL 2.2 2.2 2.2 2.2 2.1 See [facility] for details of other cardiac testing. IMPRESSION: NYHA Functional Class: II Stage: C heart failure -HFpEF/ chronic diastolic heart failure, AL Amyloidosis / LVEF 59% Edgar Henderson is here today for follow-up. At his last visit, I asked him to take bumex three days per week. He was then seen by nephrology and his Bumex was increased to daily dosing. Today, I believe that he is warm and near euvolemic. His weight is down several pounds from his last visit. He has no new or worsening cardiac complaints and reports that he is feeling a little better overall. He reports that he is med and dietary adherent. Most recent labs reviewed and renal function is stable. No medication changes today. Lili, his tetryl nitrator operator told him that he expects him to start on dialysis in the next few months andhe is going to attend dialysis education. He states that he is very depressed and does not want to go on dialysis. He is agreeable to meet with our palliative care team to discuss GOC. I have placed a consult. Midodrine 5 mg TID BB: no amyloid ACEi/ARB/ARNI: no amyloid MRA: no CKD SGLT2i: no CKD Vasodilators: no Inotrope: no Diuretic regimen: Bumex 0.5 mg daily Digoxin: no Anti-arrhythmics: no Ivabradine: no Other anti-HTN: no Device therapy: no, reno-sparks QRS: 98 ms Sleep apnea: no Anemia: yes -AL Amyloid ([place]) with renal and cardiac involvement. [place] stage III. On Velcade, rituximab and dexamethasone -Lymphoplasmacytic lymphoma -CKD Stage 4 -BPH PLAN AND RECOMMENDATIONS: -No medication changes today. -Follow-up with Dr. Reyes on 03/08/2024. Please let me know if you are having issues and I can seeyou sooner. I personally interviewed, confirmed and edited the above information as obtained by others The majority of the visit was spent counseling and/or coordinating care for the patient. Face to Face time was 40 minutes. We discussed natural history of disease, current treatment options, future potential treatment options including transplant, mechanical support, etc. We discussed diet, exercise, other non- medical management as above. Talia Russell MSN, ACNP-BC, CHFN, [facility] Section Of Heart Failure and Cardiac Transplant Medicine [facility] [place] [facility] Desk [id number] [place] [address] documented in this encounterPremier Health Miami [facility] Hospital02-23-2024 History of Present illness Narrative* Gricel Bruno LPN - 11/10/2023 7:39 AM EST Scan on 11/09/2023 4:15 PM by Provider, KELBY Sesay: Consultation - documented in this encounterPremier Health Miami [facility] Hospital02-21-2024 Miscellaneous Notes* Telephone Encounter - Cass Jacobs LPN - 11/08/2023 1:27 PM EST Information given to patient. I reviewed medication instructions several times with patient until he verbalized understanding. Patient has 0.5 mg and 1 mg tablets at home. He was instructed by Dr. Pérez to take 1 mg of Bumex per day at the on 10/23/2023. He wasn't exactly sure what he's beentaking since then. He will take 0.5 mg of Bumex until his next lab check on 11/14/2023. Cass Jacobs LPN * Telephone Encounter - Cass Jacobs LPN - 11/08/2023 8:05 AM EST Left message for patient to contact office. Cass Jacobs LPN * Telephone Encounter - Cass Jacobs LPN - 11/08/2023 8:05 AM EST ----- Message from Jose Hugo DO sent at 11/07/2023 5:41 PM EST ----- Advised him to decrease Bumex to 1/2 tablet daily. This is because of recent increase in BUN and creatinine. documented in this encounterPremier Health Miami [facility] Hospital02-09-2024 History of Present illness Narrative* Jose Hugo, - 10/27/2023 12:14 PM EST Diagnosis: 1) IgM kappa HPI: The patient is a 73 yo male with a PMH significant for BPH. Had labs 03/17/2023 for upcoming annual appointment with Dr. Herbert. Per Dr. Herbert's recent eveluation: Patient ws recently sent to [facility] due to SINDI. BUN was 47 and Crewas 2.47 with potassium of 5.3. patient used Excedrin on occasion, maybe a few times a month if that. Denies chronic NSAID use. EKG in ER showed ST-T wave changes in the lateral leads. 2D echo was unremarkable with normal LV size, mod concentric VH, systolic function was normal with an EF of 65%, mild diastolic dysfunction. His Trop level was elevated but since the echo was ok. No further cardiacw/u was pursued. An US of the kidnies and bladder showed possible chronic kidney disease, no hydronephrosis. Chest x-ray was normal. Patient was not started on any medications to go home on. He has an appt tomorrow with renal. CBC showed WBC normal at 6.8, Hg slightly low at 12.5, MCV was normal. Differential was unremarkable. Sodium, potassium, LFT's and TSH were al ok. Patient has been experiencing fatigue over the last 6 months. Also noticed a changed in his voice in the past 6 months off and on with hoarseness. Food has been tasting metalic Very Dry mouth. Has to take sips of water to help food go down. No N/V, diarrhea, hematochezia or melena. Eating less; no appetite. Has lost approx 10 lbs in past 1-2 months. Urination increased but always feeling thristy Swelling in both ankles and legs since maybe the beginning of this past year. Increased SOB and muscle fatigue No chest pain Stopped exercising in January due to fatigue and weakness. In October while he was swimming he felt like he was swimming in [place]. No shortness of breath. Denied chest heaviness, tightness or palpitations. Echo at [facility]: Interpretation Summary Normal LV size. Moderate concentric left ventricular hypertrophy. Left ventricular systolic function is normal. The estimated ejection fraction is 65 %. Stage 1 diastolic dysfunction. Pulmonary artery systolic pressure is 28 mmHg. Contrast injection was performed. Hospitalized at [facility] 08/25/2023 through 09/19/2023 for nonischemic heart failure with preservedejection fraction, volume management and SINDI. Per discharge summary. Mr. 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 Volume statusvery difficult to assess due to baseline elevated creatinine and patient's cachectic habitus. Originally diuresed with sx improvement, but RHC demonstrated patient intravascularly depleted so diuresis held and given PRN small volume fluid boluses. Hospitalization c/b orthostatic hypotension and worsening of chronic urinary retention. Discharged on midodrine 5mg tid, and senior catheter in situ. # HFpEF - 02/2023 TTE: LVH, stage 1 diastolic dysfunction, EF 65% - 08/2023 TTE: EF 59%, Grade I left ventricular diastolic dysfunction, biventricular wall thickening - 09/01 RHC: Low normal biventricular filling pressures, Preserved CO/CI by Julián, reduced by TD Plan on discharge: - Hold diuretics iso orthostatic hypotension - Encourage PO intake #Orthostatic hypotension Multiple CMETs called during hospital course for syncope or near-syncope secondary to orthostatic hypotension. Etiology likely hypovolemia c/b AL amyloidosis with renal and cardiac involvement vs autonomic neuropathy vs post obstructive diuresis with volume depletion. Plan on discharge: - Midodrine 5 mg tid #Urinary retention 2/2 BPH #SINDI on CKD stage 4 2/2 AL amyloidosis - Cr 1.1 in 2021. In February 2023 he presented for an annual physical with his PCP and was found to have an SINDI with Cr 2.47. Since then, Cr has progressively up trended, and now it has stabilized at ~ 3.8-4, likely from Amyloidosis. - 08/28 US kidney/bladder: Markedly distended urinary bladder, perhaps chronic outlet obstruction due to BPH. Mild right hydroureteronephrosis, favored to be due to the markedly distended bladder. Nostones or left hydronephrosis. Increase in parenchymal echogenicity of kidneys due to underlying chronic kidney disease. - 09/01 US kidney/bladder: No hydronephrosis. Markedly dilated urinary bladder despite Senior catheter. Increased parenchymal echogenicity of kidneys secondary to underlying chronic kidney disease. 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 Diagnosed 03/2023 with kidney biopsy - Follows with Dr. Hugo (oncology) - Started on velcade, rituximab and dexamethasone in April 2023. Did not see much clinical improvement so was switched to Bendamustine 3 days ago (08/22/23) with a plan for Rituximab with cycle #2 per oncology notes - Heme/Onc consulted but determined no role for inpatient management Plan on discharge: - hematology follow-up outpatient #Malnutrition Likely secondary to amyloidosis and lymphoma, worsened iso acute illness. Plan: - Nutrition recommending daily Ensure Max and renal vitamin OPERATIONS/PROCEDURE DURING THIS HOSPITALIZATION: Procedure(s) (LRB): RIGHT HEART CATHETERIZATION INCLUDING MEASUREMENT OF OXYGEN SATURATION AND CARDIAC OUTPUT (N/A) Renvela was cost prohibitive. Using TUMS per nephrology recommendations. Midodrine 5 mg 3 times daily consistently. When he was tried on 10 mg, developed urinary retention. Presents for ongoing oncologic management. Interim history: Was restarted on bumetanide 1 mg daily. Swelling significantly decreased. Less frequent orthostasis. Using compression stockings. Helping quite a bit with swelling. No dyspnea. No chest pain/pressure. Appetite is ravenous. No falls in the last month. PMH, medications and allergies personally reviewed by me today. Any changes documented in appropriate section. Social History Tobacco Use Smoking status: Never Smokeless tobacco: Never Vaping Use Vaping Use: Never used Substance Use Topics Alcohol use: No Drug use: No Not . No children. Family History Problem Relation Age of Onset Prostate Cancer Father Heart Father Pacemaker Cancer Father Hodgkin's lymphoma None Sister other (non hodgkins lymphoma) Sister Coronary Artery Disease No Family History ROS: Constitutional: No fever. No drenching night sweats. Neuro: No recent SELF. HEENT: No recent change in vision or hearing. Resp: See HPI. CVS: No PND or orthopnea. GI: No dysphagia or odynophagia. No reflux. No abdominal pain, bloating or distension. No black or bloody stools. : No dysuria or gross hematuria. Endo: No hot flashes. Musculoskeletal: No bone, back, joint and muscular pain. Derm: No current rash. No history of jaundice. No diffuse pruritis. Heme: No unusual bleeding and unexplained bruising. Psych: Normal mood. PHYSICAL EXAM: Vitals: Blood pressure 99/62, pulse 87, temperature 37.2 C (99 F), weight 51.9 kg (114 lb 8 oz), SpO2 100%. Thin-appearing and in no acute distress. EYES: Sclerae are anicteric bilaterally. LYMPHATIC: There is no palpable cervical or supraclavicular adenopathy. RESPIRATORY: Inspiratory breath sounds are of normal intensity in all muñoz. No rales, wheezes or rhonchi. CARDIOVASCULAR: Rhythm is regular. No murmur today. ABDOMEN: The abdomen is nondistended. No tenderness. Extremities: Mild edema at the ankles. SKIN: No jaundice or rash. NEUROLOGIC: tire adjuster II-XII are grossly intact. No focal motor weakness. LABORATORY DATA: PATHOLOGY: Bone marrow biopsy 04/11/2023: A-C. 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 - Hypercellular bone marrow (60-70%) with maturing trilineage hematopoiesis. - Increased storage iron. - Positive for amyloid deposition (numerous blood vessels, [place] red stain confirmatory). - See comment. 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 Left kidney biopsy 04/14/2023: A. [facility] [place] left kidney biopsy: - [place] light chain amyloidosis extensively involving glomeruli, the tubulointerstitium and vessel cooper. - Tubular atrophy and interstitial fibrosis, moderate to severe. Light microscopy shows prominent amyloid accumulation within glomeruli, vessel cooper and in a patchy distribution in the tubulointerstitium. Immunofluorescence shows strong staining for kappa and essentially negative staining for the remaining tested reactants. Electron microscopy confirms the presence of 8 to 10 nm fibrosis characteristic of amyloidosis. 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 CARDIOLOGY: Echocardiogram 03/17/2023 done at [facility] demonstrated normal LV size with moderate concentric left ventricular hypertrophy and left ventricular systolic function normal with estimated ejection fraction 65%. Stage I diastolic dysfunction was observed. Pulmonary artery systolic pressure estimated at 28 mmHg. Echocardiogram same day demonstrated normal sinus rhythm with incomplete right bundle branch block ST and T wave abnormality, consider lateral ischemia, prolonged QT. Exercise stress test at [facility] 04/19/2023: Impression: 1. Inability to reach 85% of maximal age-predicted heart rate decreases the sensitivity of this test exercise tolerance test 2. Stress test is positive for exercise-induced EKG changes of ischemia. However the specificity ofthis finding is decreased because of baseline ST-T changes 3. The test test is negative for exercise-induced chest pain 4. Functional capacity is decreased for age 5. Nuclear images pending Myocardial perfusion imaging study: Technique: The patient was injected with 11.1 mCi of technetium 99m Cardiolite and subsequently rest SPECT Cardiolite nuclear imaging was obtained in the horizontal long, vertical long, and short axis views. The patient exercised on a Adria protocol. Please see above for details. The patient was injected with33.3 mCi of technetium 99m Cardiolite and subsequently stress SPECT Cardiolite nuclear imaging was obtained in the horizontal long, vertical long, and short axis views. A gated Cardiolite study at peak stress was obtained. Interpretation: Rest and stress SPECT Cardiolite nuclear imaging status post realignment, normalization, and attenuation correction, demonstrates mild decrease in the radioisotope uptake in the inferior wall prior to attenuation correction. After attenuation correction there is normal myocardial radioisotope uptake overall. These findings are suggestive of diaphragmatic attenuation artifact. The gated Cardiolitestudy demonstrates no significant regional wall motion abnormalities. The reported LVEF is 56%. Impression: 1. There is no definite evidence of ischemia. Please see the EKG portion of the test above as well.The sensitivity of this test is decreased because of inability to reach 85% of maximal age-predicted heart rate. 2. The gated Cardiolite study reports an LVEF of 56%. 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 Assessment: -The patient is a 73-year-old male with a past medical history significant for BPH. Over several months prior to presentation he had been experiencing progressive constitutional symptoms of muscle weakness/fatigue, metallic taste, malaise and hoarseness. He was found to have azotemia. -Work-up for SINDI significant for IgM kappa monoclonal protein. He had no diarrhea. No symptoms of sensory neuropathy. 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 -Baseline serum MP 0.7 g/dL. Baseline serum kappa free light chain 199.4 mg/dL. -CTs 04/06/2023 two small pulmonary nodules. No adenopathy or splenomegaly. -Serum kappa 63.3 mg/L as of 09/26/2023. -I reviewed the results of today's CBC and chemistry panel with him. Mild incremental improvement in serum creatinine. Stable GFR over the last month. Moderate anemia. Allows continued therapy. Plan: -Cycle #2 10/31. -Monitor CBC/BMP weekly. -Knee-high compression stockings. -Follow-up on today's finalized serum monoclonal protein and kappa light chain. -Follow up with cardiology and nephology as scheduled. Portions of this documentation were copied and pasted from previous office visit notes in order to provide a cohesive continuity of the history. The note has been reviewed and edited and updated as necessary. I spent a total of 30 minutes on the date of the service which included preparing to see the patient, [id number] patient care, completing clinical documentation, obtaining and/or reviewing separately obtained history, performing a medically appropriate examination, counseling and educating the pat ient/family/caregiver, ordering medications, tests, or procedures, communicating with other HCPs (not separately reported), and communicating results to the patient/family/caregiver. Jose Hugo DO [facility] History of Present illness Narrative* Elisa Gumaro, DO - 10/23/2023 2:20 PM EST NEPHROLOGY CLINIC INITIAL VISIT PATIENT NAME: Edgar Henderson Consultation requested by Dr. Rodriguez for an opinion regarding ckd iv. My final recommendations will be communicated back to the requesting physician by way of shared Medical record or letter to requesting physician via [place] mail. ASSESSMENT/PLAN 1.CKD IV - well progressed [place] IgM amyloid with severe IFTA on biopsy and now 12 grams of proteinuria in august with cardiac involvement and LVF with preserved ejection fraction. Outcomes will bepoor with cardianc involvement and high urine protein. -expressed there is a high chance of needing dialysis within the next 6-12 months I recommend he consider PD over HD. I'll connect him with our transitions program to learn more -I increased his bumex back to 1mg daily, with instructions to check bp, weight, daily to weekly -continue to follow weekly labs with oncology -return to clinic in 3 months 2.Volume - sensitive with diastolic dys. Iso amyloid, on midodrine for orthostasis. No plan for flomax, diuretics as above 3.Lytes - bicarb stable - stop bicarbonate 4.Metabolic bone -OTC tums with biggest meal 5. Obstructive uropathy -I rewrote for finasteride SUBJECTIVE chief complaint HPI: 72 M with PMHx of NICM/HFpEF (59% 08/2023 down from 65% 04/09), [place] amyloid with cardiac and renal involvement (Dx with kidney biopsy 03/2023), lymphoplasmacytic lymphoma, and CKD stage 4. For amyloid IgM kappa was started on velcade, rituximab and dexamethasone in April 2023. Did not see much clinical improvement per the notes so was switched to Bendamustine (08/22/23) with addition of ritux. Baseline serum MP 0.7 g/dL. Baseline serum kappa free light chain 199.4 mg/dL. Now [place] down to 63 and m protein 0. Also has urinary retention with chronic senior noted on recent admission followed by urology. Had sindi as result that is reovery . Is on midodrine for orthostasis, his diuretics were also held. Startedon renvela, bicarb, senior with finasteride RENAL HX Biopsy Component FINAL DIAGNOSIS A. [facility] [place] left kidney biopsy: - [place] light chain amyloidosis extensively involving glomeruli, the tubulointerstitium and vessel cooper. - Tubular atrophy and interstitial fibrosis, moderate to severe. Diagnosis Comment Light microscopy shows prominent amyloid accumulation within glomeruli, vessel cooper and in a patchy distribution in the tubulointerstitium. Immunofluorescence shows strong staining for kappa and essentially negative staining for the remaining tested reactants. Electron microscopy confirms the presence of 8 to 10 nm fibrosis characteristic of amyloidosis. 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 Results discussed with Dr. Tucker at 1:40 PM on 04/17/2023. Urine Imaging Cr trend MEDICATIONS: No current facility-administered medications for this visit. Social History Tobacco Use Smoking status: Never Smokeless tobacco: Never Vaping Use Vaping Use: Never used Substance Use Topics Alcohol use: No Drug use: No FAMILY HISTORY Problem Relation Age of Onset Prostate Cancer Father Heart Father Pacemaker Cancer Father Hodgkin's lymphoma None Sister other (non hodgkins lymphoma) Sister Coronary Artery Disease No Family History PAST SURGICAL HISTORY Procedure Laterality Date COLONOSCOPY FLX DX W/COLLJ SPEC WHEN PFRMD 08/07/08 COLONOSCOPY FLX DX W/COLLJ SPEC WHEN PFRMD 06/07/2018 Colonoscopy RPR 1ST INGUN HRNA AGE 5 YRS/> REDUCIBLE Hernia repair, inguinal, bilateral SIGMOIDOSCOPY FLX DX W/COLLJ SPEC BR/WA IF PFRMD 2002 Sigmoidoscopy OBJECTIVE PHYSICAL EXAM: BP - standardized method Pulse 1 BP #1: 107/70 Pulse #1: 83 beats/min 2 BP #2 : 107/72 Pulse #2 : 81 beats/min 3 BP #3 : 108/71 Pulse #3 : 81 beats/min Average Average BP: 108/71 Average Pulse: 81 beats/min Orthostatic vitals Supine Sitting Standing BP cuff location BP cuff location: Left upper arm BP cuff size BP cuff size: regular adult Comments for BP values First BP (right) First BP (left) Intake/Output None GENERAL: no distress LUNGS: Lungs clear to auscultation, Good diaphragmatic excursion CARDIAC: Normal S1 and S2; no rubs, murmurs, or gallops EXTREMITIES:1+ edema DATA: Diagnostic tests reviewed for today's visit: Most recent labs and imaging results. CBC, Coags, BMP, Mg, Phos Liver Function, Amylase, & Lipase ABGs SIGNATURE: Gumaro Pérez DO DATE: October 23, 2023 TIME: 12:01 PM documented [facility] History of Past illness Narrative* Problem Noted Date Diagnosed Date Resolved Date Severe protein-calorie malnutrition 09/13/2023 10/02/2023 Hypervolemia 08/30/2023 2023 Cardiorenal syndrome with renal failure 08/29/2023 2023 Hypokalemia 08/29/2023 2023 Hypochloremia 08/29/2023 2023 Hydronephrosis of right kidney 08/29/2023 2023 Urinary retention 08/29/2023 2023 Acute decompensated heart failure 08/25/2023 2023 Fatigue 03/23/2023 05/27/2023 documented as of this encounter (statuses as of 10/24/2023) [facility] of Past illness Narrative* Problem Noted Date Diagnosed Date Resolved Date Severe protein-calorie malnutrition 09/13/2023 10/02/2023 Hypervolemia 08/30/2023 2023 Cardiorenal syndrome with renal failure 08/29/2023 2023 Hypokalemia 08/29/2023 2023 Hypochloremia 08/29/2023 2023 Hydronephrosis of right kidney 08/29/2023 2023 Urinary retention 08/29/2023 2023 Acute decompensated heart failure 08/25/2023 2023 Fatigue 03/23/2023 05/27/2023 documented as of this encounter (statuses as of 10/27/2023) [facility] of Past illness Narrative* Problem Noted Date Diagnosed Date Resolved Date Severe protein-calorie malnutrition 09/13/2023 10/02/2023 Hypervolemia 08/30/2023 2023 Cardiorenal syndrome with renal failure 08/29/2023 2023 Hypokalemia 08/29/2023 2023 Hypochloremia 08/29/2023 2023 Hydronephrosis of right kidney 08/29/2023 2023 Urinary retention 08/29/2023 2023 Acute decompensated heart failure 08/25/2023 2023 Fatigue 03/23/2023 05/27/2023 documented as of this encounter (statuses as of 10/31/2023) [facility] of Past illness Narrative* Problem Noted Date Diagnosed Date Resolved Date Severe protein-calorie malnutrition 09/13/2023 10/02/2023 Hypervolemia 08/30/2023 2023 Cardiorenal syndrome with renal failure 08/29/2023 2023 Hypokalemia 08/29/2023 2023 Hypochloremia 08/29/2023 2023 Hydronephrosis of right kidney 08/29/2023 2023 Urinary retention 08/29/2023 2023 Acute decompensated heart failure 08/25/2023 2023 Fatigue 03/23/2023 05/27/2023 documented as of this encounter (statuses as of 11/01/2023) [facility] of [facility] illness Narrative* Problem Noted Date Diagnosed Date Resolved Date Severe protein-calorie malnutrition 09/13/2023 10/02/2023 Hypervolemia 08/30/2023 2023 Cardiorenal syndrome with renal failure 08/29/2023 2023 Hypokalemia 08/29/2023 2023 Hypochloremia 08/29/2023 2023 Hydronephrosis of right kidney 08/29/2023 2023 Urinary retention 08/29/2023 2023 Acute decompensated heart failure 08/25/2023 2023 Fatigue 03/23/2023 05/27/2023 documented as of this encounter (statuses as of 11/02/2023) [facility] Narrative* Problem Noted Date Diagnosed Date Resolved Date Severe protein-calorie malnutrition 09/13/2023 10/02/2023 Hypervolemia 08/30/2023 2023 Cardiorenal syndrome with renal failure 08/29/2023 2023 Hypokalemia 08/29/2023 2023 Hypochloremia 08/29/2023 2023 Hydronephrosis of right kidney 08/29/2023 2023 Urinary retention 08/29/2023 2023 Acute decompensated heart failure 08/25/2023 2023 Fatigue 03/23/2023 05/27/2023 documented as of this encounter (statuses as of 11/07/2023) [facility] Narrative* Problem Noted Date Diagnosed Date Resolved Date Severe protein-calorie malnutrition 09/13/2023 10/02/2023 Hypervolemia 08/30/2023 2023 Cardiorenal syndrome with renal failure 08/29/2023 2023 Hypokalemia 08/29/2023 2023 Hypochloremia 08/29/2023 2023 Hydronephrosis of right kidney 08/29/2023 2023 Urinary retention 08/29/2023 2023 Acute decompensated heart failure 08/25/2023 2023 Fatigue 03/23/2023 05/27/2023 documented as of this encounter (statuses as of 11/08/2023) [facility] Narrative* Problem Noted Date Diagnosed Date Resolved Date Severe protein-calorie malnutrition 09/13/2023 10/02/2023 Hypervolemia 08/30/2023 2023 Cardiorenal syndrome with renal failure 08/29/2023 2023 Hypokalemia 08/29/2023 2023 Hypochloremia 08/29/2023 2023 Hydronephrosis of right kidney 08/29/2023 2023 Urinary retention 08/29/2023 2023 Acute decompensated heart failure 08/25/2023 2023 Fatigue 03/23/2023 05/27/2023 documented as of this encounter (statuses as of 11/10/2023) [facility] Narrative* Problem Noted Date Diagnosed Date Resolved Date Severe protein-calorie malnutrition 09/13/2023 10/02/2023 Hypervolemia 08/30/2023 2023 Cardiorenal syndrome with renal failure 08/29/2023 2023 Hypokalemia 08/29/2023 2023 Hypochloremia 08/29/2023 2023 Hydronephrosis of right kidney 08/29/2023 2023 Urinary retention 08/29/2023 2023 Acute decompensated heart failure 08/25/2023 2023 Fatigue 03/23/2023 05/27/2023 documented as of this encounter (statuses as of 11/17/2023) [facility] Narrative* Problem Noted Date Diagnosed Date Resolved Date Severe protein-calorie malnutrition 09/13/2023 10/02/2023 Hypervolemia 08/30/2023 2023 Cardiorenal syndrome with renal failure 08/29/2023 2023 Hypokalemia 08/29/2023 2023 Hypochloremia 08/29/2023 2023 Hydronephrosis of right kidney 08/29/2023 2023 Urinary retention 08/29/2023 2023 Acute decompensated heart failure 08/25/2023 2023 Fatigue 03/23/2023 05/27/2023 documented as of this encounter (statuses as of 11/22/2023) [facility] Narrative* Problem Noted Date Diagnosed Date Resolved Date Severe protein-calorie malnutrition 09/13/2023 10/02/2023 Hypervolemia 08/30/2023 2023 Cardiorenal syndrome with renal failure 08/29/2023 2023 Hypokalemia 08/29/2023 2023 Hypochloremia 08/29/2023 2023 Hydronephrosis of right kidney 08/29/2023 2023 Urinary retention 08/29/2023 2023 Acute decompensated heart failure 08/25/2023 2023 Fatigue 03/23/2023 05/27/2023 documented as of this encounter (statuses as of 11/24/2023) [facility] Narrative* Problem Noted Date Diagnosed Date Resolved Date Severe protein-calorie malnutrition 09/13/2023 10/02/2023 Hypervolemia 08/30/2023 2023 Cardiorenal syndrome with renal failure 08/29/2023 2023 Hypokalemia 08/29/2023 2023 Hypochloremia 08/29/2023 2023 Hydronephrosis of right kidney 08/29/2023 2023 Urinary retention 08/29/2023 2023 Acute decompensated heart failure 08/25/2023 2023 Fatigue 03/23/2023 05/27/2023 documented as of this encounter (statuses as of 11/24/2023) [facility] Narrative* Problem Noted Date Diagnosed Date Resolved Date Severe protein-calorie malnutrition 09/13/2023 10/02/2023 Hypervolemia 08/30/2023 2023 Cardiorenal syndrome with renal failure 08/29/2023 2023 Hypokalemia 08/29/2023 2023 Hypochloremia 08/29/2023 2023 Hydronephrosis of right kidney 08/29/2023 2023 Urinary retention 08/29/2023 2023 Acute decompensated heart failure 08/25/2023 2023 Fatigue 03/23/2023 05/27/2023 documented as of this encounter (statuses as of 11/29/2023) [facility] Narrative* Problem Noted Date Diagnosed Date Resolved Date Severe protein-calorie malnutrition 09/13/2023 10/02/2023 Hypervolemia 08/30/2023 2023 Cardiorenal syndrome with renal failure 08/29/2023 2023 Hypokalemia 08/29/2023 2023 Hypochloremia 08/29/2023 2023 Hydronephrosis of right kidney 08/29/2023 2023 Urinary retention 08/29/2023 2023 Acute decompensated heart failure 08/25/2023 2023 Fatigue 03/23/2023 05/27/2023 documented as of this encounter (statuses as of 11/29/2023) [facility] Narrative* Problem Noted Date Diagnosed Date Resolved Date Severe protein-calorie malnutrition 09/13/2023 10/02/2023 Hypervolemia 08/30/2023 2023 Cardiorenal syndrome with renal failure 08/29/2023 2023 Hypokalemia 08/29/2023 2023 Hypochloremia 08/29/2023 2023 Hydronephrosis of right kidney 08/29/2023 2023 Urinary retention 08/29/2023 2023 Acute decompensated heart failure 08/25/2023 2023 Fatigue 03/23/2023 05/27/2023 documented as of this encounter (statuses as of 11/30/2023) [facility] Narrative* Problem Noted Date Diagnosed Date Resolved Date Severe protein-calorie malnutrition 09/13/2023 10/02/2023 Hypervolemia 08/30/2023 2023 Cardiorenal syndrome with renal failure 08/29/2023 2023 Hypokalemia 08/29/2023 2023 Hypochloremia 08/29/2023 2023 Hydronephrosis of right kidney 08/29/2023 2023 Urinary retention 08/29/2023 2023 Acute decompensated heart failure 08/25/2023 2023 Fatigue 03/23/2023 05/27/2023 documented as of this encounter (statuses as of 12/01/2023) [facility] Narrative* Problem Noted Date Diagnosed Date Resolved Date Severe protein-calorie malnutrition 09/13/2023 10/02/2023 Hypervolemia 08/30/2023 2023 Cardiorenal syndrome with renal failure 08/29/2023 2023 Hypokalemia 08/29/2023 2023 Hypochloremia 08/29/2023 2023 Hydronephrosis of right kidney 08/29/2023 2023 Urinary retention 08/29/2023 2023 Acute decompensated heart failure 08/25/2023 2023 Fatigue 03/23/2023 05/27/2023 documented as of this encounter (statuses as of 12/04/2023) [facility] Narrative* Problem Noted Date Diagnosed Date Resolved Date Severe protein-calorie malnutrition 09/13/2023 10/02/2023 Hypervolemia 08/30/2023 2023 Cardiorenal syndrome with renal failure 08/29/2023 2023 Hypokalemia 08/29/2023 2023 Hypochloremia 08/29/2023 2023 Hydronephrosis of right kidney 08/29/2023 2023 Urinary retention 08/29/2023 2023 Acute decompensated heart failure 08/25/2023 2023 Fatigue 03/23/2023 05/27/2023 documented as of this encounter (statuses as of 12/05/2023) [facility] Narrative* Problem Noted Date Diagnosed Date Resolved Date Severe protein-calorie malnutrition 09/13/2023 10/02/2023 Hypervolemia 08/30/2023 2023 Cardiorenal syndrome with renal failure 08/29/2023 2023 Hypokalemia 08/29/2023 2023 Hypochloremia 08/29/2023 2023 Hydronephrosis of right kidney 08/29/2023 2023 Urinary retention 08/29/2023 2023 Acute decompensated heart failure 08/25/2023 2023 Fatigue 03/23/2023 05/27/2023 documented as of this encounter (statuses as of 12/05/2023) [facility] Narrative* Problem Noted Date Diagnosed Date Resolved Date Severe protein-calorie malnutrition 09/13/2023 10/02/2023 Hypervolemia 08/30/2023 2023 Cardiorenal syndrome with renal failure 08/29/2023 2023 Hypokalemia 08/29/2023 2023 Hypochloremia 08/29/2023 2023 Hydronephrosis of right kidney 08/29/2023 2023 Urinary retention 08/29/2023 2023 Acute decompensated heart failure 08/25/2023 2023 Fatigue 03/23/2023 05/27/2023 documented as of this encounter (statuses as of 12/06/2023) [facility] Narrative* Problem Noted Date Diagnosed Date Resolved Date Severe protein-calorie malnutrition 09/13/2023 10/02/2023 Hypervolemia 08/30/2023 2023 Cardiorenal syndrome with renal failure 08/29/2023 2023 Hypokalemia 08/29/2023 2023 Hypochloremia 08/29/2023 2023 Hydronephrosis of right kidney 08/29/2023 2023 Urinary retention 08/29/2023 2023 Acute decompensated heart failure 08/25/2023 2023 Fatigue 03/23/2023 05/27/2023 documented as of this encounter (statuses as of 12/07/2023) [facility] Narrative* Problem Noted Date Diagnosed Date Resolved Date Severe protein-calorie malnutrition 09/13/2023 10/02/2023 Hypervolemia 08/30/2023 2023 Cardiorenal syndrome with renal failure 08/29/2023 2023 Hypokalemia 08/29/2023 2023 Hypochloremia 08/29/2023 2023 Hydronephrosis of right kidney 08/29/2023 2023 Urinary retention 08/29/2023 2023 Acute decompensated heart failure 08/25/2023 2023 Fatigue 03/23/2023 05/27/2023 documented as of this encounter (statuses as of 12/07/2023) [facility] Narrative* Problem Noted Date Diagnosed Date Resolved Date Severe protein-calorie malnutrition 09/13/2023 10/02/2023 Hypervolemia 08/30/2023 2023 Cardiorenal syndrome with renal failure 08/29/2023 2023 Hypokalemia 08/29/2023 2023 Hypochloremia 08/29/2023 2023 Hydronephrosis of right kidney 08/29/2023 2023 Urinary retention 08/29/2023 2023 Acute decompensated heart failure 08/25/2023 2023 Fatigue 03/23/2023 05/27/2023 documented as of this encounter (statuses as of 12/08/2023) [facility] [facility] History of Past illness Narrative* Problem Noted Date Diagnosed Date Resolved Date Severe protein-calorie malnutrition 09/13/2023 10/02/2023 Hypervolemia 08/30/2023 2023 Cardiorenal syndrome with renal failure 08/29/2023 2023 Hypokalemia 08/29/2023 2023 Hypochloremia 08/29/2023 2023 Hydronephrosis of right kidney 08/29/2023 2023 Urinary retention 08/29/2023 2023 Acute decompensated heart failure 08/25/2023 2023 Fatigue 03/23/2023 05/27/2023 documented as of this encounter (statuses as of 12/08/2023) [facility]12-27-[facility] History of Past illness Narrative* Problem Noted Date Diagnosed Date Resolved Date Severe protein-calorie malnutrition 09/13/2023 10/02/2023 Hypervolemia 08/30/2023 2023 Cardiorenal syndrome with renal failure 08/29/2023 2023 Hypokalemia 08/29/2023 2023 Hypochloremia 08/29/2023 2023 Hydronephrosis of right kidney 08/29/2023 2023 Urinary retention 08/29/2023 2023 Acute decompensated heart failure 08/25/2023 2023 Fatigue 03/23/2023 05/27/2023 documented as of this encounter (statuses as of 12/12/2023) [facility]12-27-[facility] History of Past illness Narrative* Problem Noted Date Diagnosed Date Resolved Date Severe protein-calorie malnutrition 09/13/2023 10/02/2023 Hypervolemia 08/30/2023 2023 Cardiorenal syndrome with renal failure 08/29/2023 2023 Hypokalemia 08/29/2023 2023 Hypochloremia 08/29/2023 2023 Hydronephrosis of right kidney 08/29/2023 2023 Urinary retention 08/29/2023 2023 Acute decompensated heart failure 08/25/2023 2023 Fatigue 03/23/2023 05/27/2023 documented as of this encounter (statuses as of 12/12/2023) [facility]12-27-[facility] History of Past illness Narrative* Problem Noted Date Diagnosed Date Resolved Date Severe protein-calorie malnutrition 09/13/2023 10/02/2023 Hypervolemia 08/30/2023 2023 Cardiorenal syndrome with renal failure 08/29/2023 2023 Hypokalemia 08/29/2023 2023 Hypochloremia 08/29/2023 2023 Hydronephrosis of right kidney 08/29/2023 2023 Urinary retention 08/29/2023 2023 Acute decompensated heart failure 08/25/2023 2023 Fatigue 03/23/2023 05/27/2023 documented as of this encounter (statuses as of 12/18/2023) [facility]12-27-[facility] History of Past illness Narrative* Problem Noted Date Diagnosed Date Resolved Date Severe protein-calorie malnutrition 09/13/2023 10/02/2023 Hypervolemia 08/30/2023 2023 Cardiorenal syndrome with renal failure 08/29/2023 2023 Hypokalemia 08/29/2023 2023 Hypochloremia 08/29/2023 2023 Hydronephrosis of right kidney 08/29/2023 2023 Urinary retention 08/29/2023 2023 Acute decompensated heart failure 08/25/2023 2023 Fatigue 03/23/2023 05/27/2023 documented as of this encounter (statuses as of 12/28/2023) [facility]12-27-[facility] History of Past illness Narrative* Problem Noted Date Diagnosed Date Resolved Date Severe protein-calorie malnutrition 09/13/2023 10/02/2023 Hypervolemia 08/30/2023 2023 Cardiorenal syndrome with renal failure 08/29/2023 2023 Hypokalemia 08/29/2023 2023 Hypochloremia 08/29/2023 2023 Hydronephrosis of right kidney 08/29/2023 2023 Urinary retention 08/29/2023 2023 Acute decompensated heart failure 08/25/2023 2023 Fatigue 03/23/2023 05/27/2023 documented as of this encounter (statuses as of 01/03/2024) [facility]12-27-[facility] History of Past illness Narrative* Problem Noted Date Diagnosed Date Resolved Date Severe protein-calorie malnutrition 09/13/2023 10/02/2023 Hypervolemia 08/30/2023 2023 Cardiorenal syndrome with renal failure 08/29/2023 2023 Hypokalemia 08/29/2023 2023 Hypochloremia 08/29/2023 2023 Hydronephrosis of right kidney 08/29/2023 2023 Urinary retention 08/29/2023 2023 Acute decompensated heart failure 08/25/2023 2023 Fatigue 03/23/2023 05/27/2023 documented as of this encounter (statuses as of 01/07/2024) [facility]12-08-2023 History of Present illness Narrative* Erika Bermudez RN - 08/25/2023 9:[address] Hugo at chairside and spoke with patient. Patient aware no hydration here today and [facility] Nurse Note* Naa Green RN - 08/24/2023 1:29 PM EST Pt o/p as of 1315= 800ml. [facility] History of Present illness Narrative* Jose Hugo DO - 08/24/2023 10:12 AM EST [facility]* Dina Tolentino RN - 08/21/2023 3:01 PM EST This visit was completed via telephone. Dina Tolentino RN * Dina Tolentino RN - 08/21/2023 2:58 PM EST ONCOLOGY PATIENT EDUCATION NOTE TOPIC: Chemotherapy, Medications: Bendamustine READINESS TO LEARN: COGNITIVE ABILITY: Alert and oriented MOTIVATION TO LEARN: Interested FAMILY SUPPORT: patient does not have family INSTRUCTION PROVIDED TO: Patient INSTRUCTION PROVIDED BY: Nurse Coordinator PATIENT LEARNS BEST BY: Multiple Methods FACTORS AFFECTING LEARNING: Emotional Factors: Anxious Overwhelmed PHYSICAL LIMITATIONS AFFECTING LEARNING: None LEARNING RESPONSE DIAGNOSIS: Lymphoplasmacytic lymphoma METHOD OF INSTRUCTION: Individual instruction Written instruction - handouts Verbal instruction PATIENT/FAMILY RESPONSE: Verbalizes understanding of: CHEMOTHERAPY-Regimen, toxicity and side effects FOLLOW UP PLAN: Patient instructed to call with any further issues Recommend - Recommend continued instruction and follow up as directed Follow up phone call. Contact information given. SUPPLEMENTAL MATERIAL: Written material was provided at this visit with the following information: - Chemotherapy education was provided by a pharmacist NO - Side effect management information was provided/discussed including but not limited to: anemia, appetite changes, arthralgia, bowel habit changes, diet, electrolyte disturbances, fatigue, infection, nausea/vomitting, TLS YES - Provided important phone numbers and contacts during and after hours. YES - Provided information on symptoms that require immediate assistance. YES - Provided Chemotherapy when to call handouts YES - Preventing infection. YES - Treatment schedule and confirmation of appointment times. YES - Available support groups. YES - The importance of contraception during the course of chemotherapy YES - Neutropenic fever protocol discussed with patient, which included the importance of reporting anyfever of 100.4F (38.0C) or greater to the healthcare team as noted on the provided wallet card and/or magnet. YES Time Spent: 40 minutes REFERRAL (RECOMMENDATION): N/A Dina Tolentino RN [facility] History of Present illness Narrative* Jose Hugo DO - 08/17/2023 4:20 PM EST Diagnosis: 1) IgM kappa HPI: The patient is a 72 yo male with a PMH significant for BPH. Had labs 03/17/2023 for upcoming annual appointment with Dr. Herbert. Per Dr. Herbert's recent eveluation: Patient ws recently sent to [facility] due to SINDI. BUN was 47 and Crewas 2.47 with potassium of 5.3. patient used Excedrin on occasion, maybe a few times a month if that. Denies chronic NSAID use. EKG in ER showed ST-T wave changes in the lateral leads. 2D echo was unremarkable with normal LV size, mod concentric VH, systolic function was normal with an EF of 65%, mild diastolic dysfunction. His Trop level was elevated but since the echo was ok. No further cardiacw/u was pursued. An US of the kidnies and bladder showed possible chronic kidney disease, no hydronephrosis. Chest x-ray was normal. Patient was not started on any medications to go home on. He has an appt tomorrow with renal. CBC showed WBC normal at 6.8, Hg slightly low at 12.5, MCV was normal. Differential was unremarkable. Sodium, potassium, LFT's and TSH were al ok. Patient has been experiencing fatigue over the last 6 months. Also noticed a changed in his voice in the past 6 months off and on with hoarseness. Food has been tasting metalic Very Dry mouth. Has to take sips of water to help food go down. No N/V, diarrhea, hematochezia or melena. Eating less; no appetite. Has lost approx 10 lbs in past 1-2 months. Urination increased but always feeling thristy Swelling in both ankles and legs since maybe the beginning of this past year. Increased SOB and muscle fatigue No chest pain Stopped exercising in January due to fatigue and weakness. In October while he was swimming he felt like he was swimming in [place]. No shortness of breath. Denied chest heaviness, tightness or palpitations. Echo at [facility]: Interpretation Summary Normal LV size. Moderate concentric left ventricular hypertrophy. Left ventricular systolic function is normal. The estimated ejection fraction is 65 %. Stage 1 diastolic dysfunction. Pulmonary artery systolic pressure is 28 mmHg. Contrast injection was performed. Gets hungry, but due to metallic taste and malaise, didn't feel like preparing much. Presents for ongoing oncologic management. Interim history: I feel good Appetite, ravenous. Taste much better. No nasuea. Only takes ondansetron prior to bortezomib. No diarrhea. Bowels moving every 2-3 days. Biotene helping with dry mouth. More swelling in legs. Back on bumetanide 1 mg daily. No change in swelling. Legs weak. Hard time with stairs if carrying something. Persists throught the night. Numbness in the feet more persistent in the toes--stable. Fingers no neuropathy. No chest pain/pressure. No FINNEGAN. No cough. Less orthostasis. Feels he can void to completion. Typically nocturia x2. He is tolerating treatment very well thus far. 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 Hyperlipidemia, mixed 06/26/2023 Internal hemorrhoids without mention of complication [place]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 Living will on file 01/27/2022 DPA: Bari Betancur (tip length checker) 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 Medicare annual wellness visit, subsequent 01/27/2022 Medicare Part B: 08/18/2017 Last done: 01/27/2022 NICM (nonischemic cardiomyopathy) (HCC) 05/24/2023 Stage 3b chronic kidney disease (HCC) 05/24/2023 PAST SURGICAL HISTORY Procedure Laterality Date COLONOSCOPY FLX DX W/COLLJ SPEC WHEN PFRMD 08/07/08 COLONOSCOPY FLX DX W/COLLJ SPEC WHEN PFRMD 06/07/2018 Colonoscopy RPR 1ST INGUN HRNA AGE 5 YRS/> REDUCIBLE Hernia repair, inguinal, bilateral SIGMOIDOSCOPY FLX DX W/COLLJ SPEC BR/WA IF PFRMD 2002 Sigmoidoscopy ALLERGIES No Known Allergies Social History Tobacco Use Smoking status: Never Smokeless tobacco: Never Vaping Use Vaping Use: Never used Substance Use Topics Alcohol use: No Drug use: No Not . No children. Family History Problem Relation Age of Onset Prostate Cancer Father Heart Father Pacemaker Cancer Father Hodgkin's lymphoma None Sister other (non hodgkins lymphoma) Sister Coronary Artery Disease No Family History ROS: Constitutional: No fever. No drenching night sweats. Neuro: No recent SELF. HEENT: No recent change in vision or hearing. Resp: CVS: No PND or orthopnea. GI: No dysphagia or odynophagia. No reflux. No abdominal pain, bloating or distension. No black or bloody stools. : No dysuria or gross hematuria. Endo: No hot flashes. Cold intolerance. Musculoskeletal: No bone, back, joint and muscular pain. Derm: No current rash. No history of jaundice. No diffuse pruritis. Heme: No unusual bleeding and unexplained bruising. Psych: Normal mood. PHYSICAL EXAM: Vitals: Blood pressure 137/76, pulse 87, temperature 36.5 C (97.7 F), weight 56.2 kg (124 lb), [id number] %. Thin-appearing and in no acute distress. EYES: Sclerae are anicteric bilaterally. LYMPHATIC: There is no palpable cervical, supraclavicular, axillary adenopathy. RESPIRATORY: Inspiratory breath sounds are of normal intensity in all muñoz. No rales, wheezes or rhonchi. CARDIOVASCULAR: Rhythm is regular. Soft systolic murmur. ABDOMEN: The abdomen is nondistended. No splenomegaly or hepatomegaly. No tenderness. Extremities: Mild edema right ankle. SKIN: No jaundice or rash. NEUROLOGIC: tire adjuster II-XII are grossly intact. No focal motor weakness. MUSCULOSKELETAL: Weak in the thighs bilaterally. LABORATORY DATA: Component Latest Ref Rng & Units 04/26/2023 05/23/2023 05/31/2023 08/02/2023 [place] Free, Serum 3.3 - 19.4 mg/L 199.4 (H) 233.5 (H) 153.5 (H) 96.4 (H) Lambda Free, Serum 5.7 - 26.3 mg/L 13.2 9.8 9.3 11.7 K/L Ratio, Serum 0.26 - 1.65 15.11 (H) 23.83 (H) 16.51 (H) 8.24 (H) PATHOLOGY: Bone marrow biopsy 04/11/2023: A-C. 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 - Hypercellular bone marrow (60-70%) with maturing trilineage hematopoiesis. - Increased storage iron. - Positive for amyloid deposition (numerous blood vessels, [place] red stain confirmatory). - See comment. 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 Left kidney biopsy 04/14/2023: A. [facility] [place] left kidney biopsy: - [place] light chain amyloidosis extensively involving glomeruli, the tubulointerstitium and vessel cooper. - Tubular atrophy and interstitial fibrosis, moderate to severe. Light microscopy shows prominent amyloid accumulation within glomeruli, vessel cooper and in a patchy distribution in the tubulointerstitium. Immunofluorescence shows strong staining for kappa and essentially negative staining for the remaining tested reactants. Electron microscopy confirms the presence of 8 to 10 nm fibrosis characteristic of amyloidosis. 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 CARDIOLOGY: Echocardiogram 03/17/2023 done at [facility] demonstrated normal LV size with moderate concentric left ventricular hypertrophy and left ventricular systolic function normal with estimated ejection fraction 65%. Stage I diastolic dysfunction was observed. Pulmonary artery systolic pressure estimated at 28 mmHg. Echocardiogram same day demonstrated normal sinus rhythm with incomplete right bundle branch block ST and T wave abnormality, consider lateral ischemia, prolonged QT. Exercise stress test at [facility] 04/19/2023: Impression: 1. Inability to reach 85% of maximal age-predicted heart rate decreases the sensitivity of this test exercise tolerance test 2. Stress test is positive for exercise-induced EKG changes of ischemia. However the specificity ofthis finding is decreased because of baseline ST-T changes 3. The test test is negative for exercise-induced chest pain 4. Functional capacity is decreased for age 5. Nuclear images pending Myocardial perfusion imaging study: Technique: The patient was injected with 11.1 mCi of technetium 99m Cardiolite and subsequently rest SPECT Cardiolite nuclear imaging was obtained in the horizontal long, vertical long, and short axis views. The patient exercised on a Adria protocol. Please see above for details. The patient was injected with33.3 mCi of technetium 99m Cardiolite and subsequently stress SPECT Cardiolite nuclear imaging was obtained in the horizontal long, vertical long, and short axis views. A gated Cardiolite study at peak stress was obtained. Interpretation: Rest and stress SPECT Cardiolite nuclear imaging status post realignment, normalization, and attenuation correction, demonstrates mild decrease in the radioisotope uptake in the inferior wall prior to attenuation correction. After attenuation correction there is normal myocardial radioisotope uptake overall. These findings are suggestive of diaphragmatic attenuation artifact. The gated Cardiolitestudy demonstrates no significant regional wall motion abnormalities. The reported LVEF is 56%. Impression: 1. There is no definite evidence of ischemia. Please see the EKG portion of the test above as well.The sensitivity of this test is decreased because of inability to reach 85% of maximal age-predicted heart rate. 2. The gated Cardiolite study reports an LVEF of 56%. 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 Assessment: -The patient is a 72-year-old male with a past medical history significant for BPH. Over several months prior to presentation he had been experiencing progressive constitutional symptoms of muscle weakness/fatigue, metallic taste, malaise and hoarseness. He was found to have azotemia. -Work-up for SINDI significant for IgM kappa monoclonal protein. He had no diarrhea. No symptoms of sensory neuropathy. 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 -Baseline serum MP 0.7 g/dL at start of therapy. 0.3 g/dL as of 07/18. -CTs 04/06/2023 Two small pulmonary nodules. No adenopathy or splenomegaly. -Reviewed labs from today. Anemia moderate. No thrombocytopenia. No neutropenia. -BP improved and more stable. -[place] light chain results reviewed with him. Since no significant change, recommended rotating therapy to bendamustine with the addition of rituximab cycle 2. -I the logistics, potential risks (including but not limited to cytopenias, infusion reaction, tumor lysis, rash, infectious complications and the small potential for as a consequence of severetoxicity/complications of therapy), benefits and alternatives, as well as the personnel involved inthe administration of bendamustine. I answered his questions in detail and he verbalized understanding and agreed with the recommended therapy. Please see the electronic consent document for details of doses and schedule. Plan: -Begin next week with dosing at 70 mg/m2 days 1 and 2. -Monitor for tumor lysis. -Neulasta day 3. -Rituximab with cycle #2. -Stop bumetanide. -May have to consider PT for Jeet wraps and compression stockings fitting. -Follow up with cardiology and nephology. Portions of this documentation were copied and pasted from previous office visit notes in order to provide a cohesive continuity of the history. The note has been reviewed and edited and updated as necessary. I spent a total of 20 minutes on the date of the service which included preparing to see the patient, [id number] patient care, completing clinical documentation, obtaining and/or reviewing separately obtained history, and performing a medically appropriate examination . Jose Hugo DO [facility] History of Present illness Narrative* Krystal Mata RN - 08/16/2023 9:01 AM EST Assessment unchanged from 08/15/[address] Hugo documented [facility]Prem[facility] History of Present illness Narrative* Jose Hugo DO - 08/15/2023 8:55 AM EST Diagnosis: 1) IgM kappa HPI: The patient is a 72 yo male with a PMH significant for BPH. Had labs 03/17/2023 for upcoming annual appointment with Dr. Herbert. Per Dr. Herbert's recent eveluation: Patient ws recently sent to [facility] due to SINDI. BUN was 47 and Crewas 2.47 with potassium of 5.3. patient used Excedrin on occasion, maybe a few times a month if that. Denies chronic NSAID use. EKG in ER showed ST-T wave changes in the lateral leads. 2D echo was unremarkable with normal LV size, mod concentric VH, systolic function was normal with an EF of 65%, mild diastolic dysfunction. His Trop level was elevated but since the echo was ok. No further cardiacw/u was pursued. An US of the kidnies and bladder showed possible chronic kidney disease, no hydronephrosis. Chest x-ray was normal. Patient was not started on any medications to go home on. He has an appt tomorrow with renal. CBC showed WBC normal at 6.8, Hg slightly low at 12.5, MCV was normal. Differential was unremarkable. Sodium, potassium, LFT's and TSH were al ok. Patient has been experiencing fatigue over the last 6 months. Also noticed a changed in his voice in the past 6 months off and on with hoarseness. Food has been tasting metalic Very Dry mouth. Has to take sips of water to help food go down. No N/V, diarrhea, hematochezia or melena. Eating less; no appetite. Has lost approx 10 lbs in past 1-2 months. Urination increased but always feeling thristy Swelling in both ankles and legs since maybe the beginning of this past year. Increased SOB and muscle fatigue No chest pain Stopped exercising in January due to fatigue and weakness. In October while he was swimming he felt like he was swimming in [employer]. No shortness of breath. Denied chest heaviness, tightness or palpitations. Echo at [facility]: Interpretation Summary Normal LV size. Moderate concentric left ventricular hypertrophy. Left ventricular systolic function is normal. The estimated ejection fraction is 65 %. Stage 1 diastolic dysfunction. Pulmonary artery systolic pressure is 28 mmHg. Contrast injection was performed. Gets hungry, but due to metallic taste and malaise, didn't feel like preparing much. Presents for ongoing oncologic management. Interim history: I feel good Appetite, ravenous. Taste much better. No nasuea. Only takes ondansetron prior to bortezomib. No diarrhea. Bowels moving every 2-3 days. Biotene helping with dry mouth. More swelling in legs. Back on bumetanide 1 mg daily. No change in swelling. Legs weak. Hard time with stairs if carrying something. Persists throught the night. Numbness in the feet more persistent in the toes--stable. Fingers no neuropathy. No chest pain/pressure. No FINNEGAN. No cough. Less orthostasis. Feels he can void to completion. Typically nocturia x2. He is tolerating treatment very well thus far. 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 Hyperlipidemia, mixed 06/26/2023 Internal hemorrhoids without mention of complication [place]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 Living will on file 01/27/2022 DPA: Bari Betancur (tip length checker) 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 Medicare annual wellness visit, subsequent 01/27/2022 Medicare Part B: 08/18/2017 Last done: 01/27/2022 NICM (nonischemic cardiomyopathy) (HCC) 05/24/2023 Stage 3b chronic kidney disease (HCC) 05/24/2023 PAST SURGICAL HISTORY Procedure Laterality Date COLONOSCOPY FLX DX W/COLLJ SPEC WHEN PFRMD 08/07/08 COLONOSCOPY FLX DX W/COLLJ SPEC WHEN PFRMD 06/07/2018 Colonoscopy RPR 1ST INGUN HRNA AGE 5 YRS/> REDUCIBLE Hernia repair, inguinal, bilateral SIGMOIDOSCOPY FLX DX W/COLLJ SPEC BR/WA IF PFRMD 2002 Sigmoidoscopy ALLERGIES No Known Allergies Social History Tobacco Use Smoking status: Never Smokeless tobacco: Never Vaping Use Vaping Use: Never used Substance Use Topics Alcohol use: No Drug use: No Not . No children. Family History Problem Relation Age of Onset Prostate Cancer Father Heart Father Pacemaker Cancer Father Hodgkin's lymphoma None Sister other (non hodgkins lymphoma) Sister Coronary Artery Disease No Family History ROS: Constitutional: No fever. No drenching night sweats. Neuro: No recent SELF. HEENT: No recent change in vision or hearing. Resp: CVS: No PND or orthopnea. GI: No dysphagia or odynophagia. No reflux. No abdominal pain, bloating or distension. No black or bloody stools. : No dysuria or gross hematuria. Endo: No hot flashes. Cold intolerance. Musculoskeletal: No bone, back, joint and muscular pain. Derm: No current rash. No history of jaundice. No diffuse pruritis. Heme: No unusual bleeding and unexplained bruising. Psych: Normal mood. PHYSICAL EXAM: Vitals: Blood pressure 126/75, pulse 91, temperature 36.6 C (97.9 F), weight 55.1 kg (121 lb 8 oz),SpO2 99 %. Thin-appearing and in no acute distress. EYES: Sclerae are anicteric bilaterally. LYMPHATIC: There is no palpable cervical, supraclavicular, axillary adenopathy. RESPIRATORY: Inspiratory breath sounds are of normal intensity in all muñoz. No rales, wheezes or rhonchi. CARDIOVASCULAR: Rhythm is regular. Soft systolic murmur. ABDOMEN: The abdomen is nondistended. No splenomegaly or hepatomegaly. No tenderness. Extremities: Mild edema right ankle. SKIN: No jaundice or rash. NEUROLOGIC: tire adjuster II-XII are grossly intact. No focal motor weakness. MUSCULOSKELETAL: Weak in the thighs bilaterally. LABORATORY DATA: Component Latest Ref Rng & Units 04/26/2023 05/23/2023 05/31/2023 08/02/2023 [place] Free, Serum 3.3 - 19.4 mg/L 199.4 (H) 233.5 (H) 153.5 (H) 96.4 (H) Lambda Free, Serum 5.7 - 26.3 mg/L 13.2 9.8 9.3 11.7 K/L Ratio, Serum 0.26 - 1.65 15.11 (H) 23.83 (H) 16.51 (H) 8.24 (H) PATHOLOGY: Bone marrow biopsy 04/11/2023: A-C. 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 - Hypercellular bone marrow (60-70%) with maturing trilineage hematopoiesis. - Increased storage iron. - Positive for amyloid deposition (numerous blood vessels, [place] red stain confirmatory). - See comment. 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 Left kidney biopsy 04/14/2023: A. [facility] [place] left kidney biopsy: - [place] light chain amyloidosis extensively involving glomeruli, the tubulointerstitium and vessel cooper. - Tubular atrophy and interstitial fibrosis, moderate to severe. Light microscopy shows prominent amyloid accumulation within glomeruli, vessel cooper and in a patchy distribution in the tubulointerstitium. Immunofluorescence shows strong staining for kappa and essentially negative staining for the remaining tested reactants. Electron microscopy confirms the presence of 8 to 10 nm fibrosis characteristic of amyloidosis. 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 CARDIOLOGY: Echocardiogram 03/17/2023 done at [facility] demonstrated normal LV size with moderate concentric left ventricular hypertrophy and left ventricular systolic function normal with estimated ejection fraction 65%. Stage I diastolic dysfunction was observed. Pulmonary artery systolic pressure estimated at 28 mmHg. Echocardiogram same day demonstrated normal sinus rhythm with incomplete right bundle branch block ST and T wave abnormality, consider lateral ischemia, prolonged QT. Exercise stress test at [facility] 04/19/2023: Impression: 1. Inability to reach 85% of maximal age-predicted heart rate decreases the sensitivity of this test exercise tolerance test 2. Stress test is positive for exercise-induced EKG changes of ischemia. However the specificity ofthis finding is decreased because of baseline ST-T changes 3. The test test is negative for exercise-induced chest pain 4. Functional capacity is decreased for age 5. Nuclear images pending Myocardial perfusion imaging study: Technique: The patient was injected with 11.1 mCi of technetium 99m Cardiolite and subsequently rest SPECT Cardiolite nuclear imaging was obtained in the horizontal long, vertical long, and short axis views. The patient exercised on a Adria protocol. Please see above for details. The patient was injected with33.3 mCi of technetium 99m Cardiolite and subsequently stress SPECT Cardiolite nuclear imaging was obtained in the horizontal long, vertical long, and short axis views. A gated Cardiolite study at peak stress was obtained. Interpretation: Rest and stress SPECT Cardiolite nuclear imaging status post realignment, normalization, and attenuation correction, demonstrates mild decrease in the radioisotope uptake in the inferior wall prior to attenuation correction. After attenuation correction there is normal myocardial radioisotope uptake overall. These findings are suggestive of diaphragmatic attenuation artifact. The gated Cardiolitestudy demonstrates no significant regional wall motion abnormalities. The reported LVEF is 56%. Impression: 1. There is no definite evidence of ischemia. Please see the EKG portion of the test above as well.The sensitivity of this test is decreased because of inability to reach 85% of maximal age-predicted heart rate. 2. The gated Cardiolite study reports an LVEF of 56%. 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 Assessment: -The patient is a 72-year-old male with a past medical history significant for BPH. Over several months prior to presentation he had been experiencing progressive constitutional symptoms of muscle weakness/fatigue, metallic taste, malaise and hoarseness. He was found to have azotemia. -Work-up for SINDI significant for IgM kappa monoclonal protein. He had no diarrhea. No symptoms of sensory neuropathy. 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 -Baseline serum MP 0.7 g/dL at start of therapy. 0.3 g/dL as of 07/18. -CTs 04/06/2023 Two small pulmonary nodules. No adenopathy or splenomegaly. -Reviewed labs from today. Anemia moderate. No thrombocytopenia. No neutropenia. -BP improved and more stable. -Serum kappa light chain trending lower. -Was seen at [facility] Her doctor the lengths recommendation, would go ahead with last 2 dosesof rituxan for this cycle. If kappa light chain not around 70 at check on 08/15, recommend change in therapy to bendamustine. Will probably not need rituxan with cycle 1 but would include it with cycles 2 and on. If response is good, would favor 4 cycles of bendamustine. -Discussed with him Bendamustine including the schedule of administration and potential side effects. We will let him know by the end of the week with today's serum kappa light chain level is and whether or not we are rotating to Bendamustine. Plan: -Continue bortezomib and dexamethasone. -CBC/CMP/LDH/MM labs (no urines) with D1. -D8, 15, 21 CBC. -OV/CBC/CMP/LDH/Myeloma labs/24 hour urine M-spike for cycle #6. -Will receive oral dexamethasone with each treatment. -Bumetanide currently 1 mg daily. -May have to consider PT for Jeet wraps and compression stockings fitting. -Follow up with cardiology and nephology. Portions of this documentation were copied and pasted from previous office visit notes in order to provide a cohesive continuity of the history. The note has been reviewed and edited and updated as necessary. I spent a total of 25 minutes on the date of the service which included preparing to see the patient, [id number] patient care, completing clinical documentation, obtaining and/or reviewing separately obtained history, performing a medically appropriate examination, counseling and educating the pat ient/family/caregiver, ordering medications, tests, or procedures, communicating with other HCPs (not separately reported), and communicating results to the patient/family/caregiver. Jose Hugo DO documented in this encounterPrem[facility]11-21-2023 Miscellaneous Notes* Telephone Encounter - Cass Jacobs LPN - 08/08/2023 12:17 PM EST Patient notified and verbalized understanding. Cass Jacobs LPN * Telephone Encounter - Jose Hugo DO - 08/08/2023 11:07 AM EST His weight is up about 7 pounds in the last week. Advised him to increase Bumex to 2 tablets once daily. Call if no increase in urination with that dose. Jose Hugo DO * Telephone Encounter - Naa Green RN - 08/08/2023 9:12 AM EST Pt here today for D22 C4 Rituxan. Pt states the swelling in his lower extremities has continued to increase. Pt states he now has a difficult time getting his shoes on. Patient has bilat +2 pitting edema in calf, +3 in ankle/foot area. Currently taking 0.5mg Bumex once a day. Pt saw performance consultant on 07/31. Please advise. documented in this encounterPremier [facility]11-13-2023 Instructions* Patient Instructions* Chester Patel MD - 07/31/2023 2:25 PM EST Follow up Sep 04 in the amyloid clinic with an EKG and echocardiogram documented in this encounterPremier [facility]11-13-2023 History of Present illness Narrative* Adolfo Jaimes MD - 07/31/2023 1:55 PM EST Images from the original note were not included. [facility] Edgar Henderson is a 72 year old male patient. Reason for visit: Consult, self-referred for AL amyloidosis. My recommendations to the consult requesting physician are communicated via the shared electronic medical record or US mail. Systemic treatment and disease course - Start 04/26/23: bortezomib, rituxan and dexamethasone. SD by light chains 07/18/23 Local treatments (radiation, surgery, kyphoplasty) History of present illness Mr. 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 Tolerating treatment well. Feels better since start of treatment but progressive decline in renalfunction. Has LE edema which is probably more from nephrotic syndrome than CHF. No neuropathy but persistent proximal leg weakness present at diagnosis. Review of systems General: No fever , No chills, and No night sweats HEENT: No lumps, no difficulty chewing or swallowing, no enlarging tongue, no tooth aches. Musculoskeletal: No Pain. See HPI. Hematological: No bleeding or easy bruising. Lymphatic / Immune system: No lymph node enlargement or infection. Cardiovascular: Orthopnea: no, Dyspnea: no, Chest pain: no, Leg edema: yes, and Palpitations: no Pulmonary: Wheezing: no and Cough: no Gastrointestinal: No nausea, vomitting, diarrhea, constipation, abdominal pain, or blood in stool. Genitourinary: Urine output: Good, Blood in urine: no, and Urinary incontinence: none Neurological: No numbness/tingling, painful paresthesias, or weakness. Skin: No rash or pruritis. 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 Hyperlipidemia, mixed 06/26/2023 Internal hemorrhoids without mention of complication [place]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 Living will on file 01/27/2022 DPA: Bari Betancur (tip length checker) 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 Medicare annual wellness visit, subsequent 01/27/2022 Medicare Part B: 08/18/2017 Last done: 01/27/2022 NICM (nonischemic cardiomyopathy) (HCC) 05/24/2023 Stage 3b chronic kidney disease (HCC) 05/24/2023 PAST SURGICAL HISTORY Procedure Laterality Date COLONOSCOPY FLX DX W/COLLJ SPEC WHEN PFRMD 08/07/08 COLONOSCOPY FLX DX W/COLLJ SPEC WHEN PFRMD 06/07/2018 Colonoscopy RPR 1ST INGUN HRNA AGE 5 YRS/> REDUCIBLE Hernia repair, inguinal, bilateral SIGMOIDOSCOPY FLX DX W/COLLJ SPEC BR/WA IF PFRMD 2003 Sigmoidoscopy Allergies / intolerances ALLERGIES No Known Allergies Medications acyclovir (ZOVIRAX) 200 mg capsule^Take 1 capsule by mouth once daily.^Disp: 90 capsule^Rfl: 2 bumetanide (BUMEX) 0.5 mg tablet^Take 2 tablets by mouth once daily.^Disp: 60 tablet^Rfl: 1 atorvastatin (LIPITOR) 20 mg tablet^Take 1 tablet by mouth daily at bedtime. For cholesterol.^Disp:30 tablet^Rfl: 5 ondansetron (ZOFRAN) 8 mg tablet^Take 1 tablet by mouth every 8 hours as needed (For chemotherapy induced nausea. Take 1 hour prior to treatment and then every 8 hours as needed for nausea.).^Disp: 30 tablet^Rfl: 2 Social History Tobacco Use Smoking status: Never Smokeless tobacco: Never Vaping Use Vaping Use: Never used Substance Use Topics Alcohol use: No Drug use: No FAMILY HISTORY Problem Relation Age of Onset Prostate Cancer Father Heart Father Pacemaker Cancer Father Hodgkin's lymphoma None Sister other (non hodgkins lymphoma) Sister Coronary Artery Disease No Family History Physical examination There were no vitals taken for this visit. ECOG PS: 1- Restricted in physically strenuous activity. Carries out light duty. General appearance: Well appearing, alert, in no acute distress, well-hydrated, well nourished. HEENT: No lumps, no macroglossia, no icterus. Mucous membranes pink. Neck: Supple, no adenopathy; thyroid symmetric, normal size, no bruits Back: no pain to palpation Lungs: Lungs clear to auscultation. No wheezing, rhonchi, rales. Heart: RRR without murmur, gallop, or rubs. No ectopy Abdomen: Abdomen soft, non-tender. Bowel sounds normal. No masses, organomegaly Extremities: No deformities, skin discoloration, clubbing or cyanosis. Good capillary refill. 1+ BLE edema to knees. Musculoskeletal: No joint swelling, deformity, or tenderness Neuro: Alert and oriented x 3. Cranial nerves 2-12 grossly intact. Motor and sensation grossly intact. Gait stable. Skin: no rashes, lesions, or jaundice Laboratory tests WBC (k/uL) Date Value 07/26/2023 6.06 07/18/2023 7.06 07/05/2023 7.55 06/28/2023 6.60 06/19/2023 6.34 06/07/2023 6.36 05/31/2023 6.15 05/23/2023 6.09 05/18/2023 5.89 05/11/2023 7.70 07/02/2020 6.84 06/28/2019 5.86 Abs Neut (k/uL) Date Value 07/26/2023 3.77 07/18/2023 4.33 07/05/2023 4.81 06/28/2023 3.86 06/19/2023 3.88 06/07/2023 3.26 05/31/2023 3.45 05/23/2023 3.58 05/18/2023 3.14 05/11/2023 4.69 Hemoglobin (g/dL) Date Value 07/26/2023 9.7 07/18/2023 10.2 07/05/2023 10.6 06/28/2023 11.2 06/19/2023 9.9 06/07/2023 11.4 05/31/2023 11.2 05/23/2023 11.6 05/18/2023 10.6 05/11/2023 10.6 07/02/2020 15.0 06/28/2019 15.2 Platelet Count (k/uL) Date Value 07/26/2023 194 07/18/2023 300 07/05/2023 203 06/28/2023 196 06/19/2023 256 06/07/2023 213 05/31/2023 175 05/23/2023 246 05/18/2023 179 05/11/2023 248 07/02/2020 183 06/28/2019 208 Glucose (mg/dL) Date Value 07/18/2023 123 06/19/2023 144 05/31/2023 134 05/23/2023 176 05/02/2023 94 04/26/2023 160 04/06/2023 106 03/27/2023 109 03/16/2023 85 01/20/2022 93 07/02/2020 81 06/28/2019 85 05/11/2018 80 08/09/2016 69 07/10/2015 83 Creatinine (mg/dL) Date Value 07/18/2023 3.86 06/19/2023 3.62 05/31/2023 3.13 05/23/2023 3.26 05/02/2023 2.85 04/26/2023 2.93 04/06/2023 2.54 03/27/2023 2.40 03/16/2023 2.47 01/20/2022 1.18 07/02/2020 0.90 06/28/2019 0.94 05/11/2018 0.97 08/09/2016 0.95 07/10/2015 0.97 Calcium (mg/dL) Date Value 07/02/2020 9.3 06/28/2019 9.5 05/11/2018 9.3 08/09/2016 9.4 07/10/2015 9.5 Calcium, Total (mg/dL) Date Value 07/18/2023 8.8 06/19/2023 8.4 05/31/2023 8.5 05/23/2023 9.4 05/02/2023 9.4 04/26/2023 8.8 04/06/2023 9.3 03/27/2023 9.4 03/16/2023 9.7 01/20/2022 9.6 M-Protein Concentration (g/dL) Date Value 07/18/2023 0.30 06/19/2023 0.35 05/31/2023 0.54 05/23/2023 0.68 04/26/2023 0.70 04/06/2023 0.67 03/27/2023 0.60 [place] Free, Serum (mg/L) Date Value 07/18/2023 136.9 06/19/2023 138.0 05/31/2023 153.5 05/23/2023 233.5 04/26/2023 199.4 04/06/2023 205.4 [place] Free, Serum (mg/L) Date Value 07/18/2023 13.3 06/19/2023 10.6 05/31/2023 9.3 05/23/2023 9.8 04/26/2023 13.2 04/06/2023 14.1 MPA Result (no units) Date Value 07/18/2023 M protein is present. 06/19/2023 M protein is present. 05/31/2023 M protein is present. 05/23/2023 M protein is present. 04/26/2023 M protein is present. Interpretation (MPA) (no units) Date Value 07/18/2023 Atypical restricted bands are present in the IgM and kappa regions. Consistent with IgM kappa monoclonal gammopathy. 06/19/2023 Atypical restricted bands are present in the IgM and kappa regions. Consistent with IgM kappa monoclonal gammopathy. 05/31/2023 Atypical restricted bands are present in the IgM and kappa regions. Consistent with IgM kappa monoclonal gammopathy. 05/23/2023 Atypical restricted bands are present in the IgM and kappa regions. Consistent with IgM kappa monoclonal gammopathy. Region of restricted mobility in IgG charley without matching region in light chain lanes, consistent with an IgG containing monoclonal gammopathy. The absence of a visible light chain could be due to lack of analytical sensitivity or could indicate that the patient has heavy chain disease, a rare form of monoclonal gammopathy. Suggest urine monoclonal protein analysis and/or serum free light chain measurement to further evaluate for a possible monoclonal gammopathy. 04/26/2023 Atypical restricted bands are present in the IgM and kappa regions. Consistent with IgM kappa monoclonal gammopathy. 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 No MN as of yet by amyloid hematologic criteria. Worsening renal function. Would go ahead with last 2 doses of rituxan for this cycle. If kappa light chain not around 70 at check on 08/15, recommend change in therapy to bendamustine. Will probably notneed rituxan with cycle 1 but would include it with cycles 2 and on. If response is good, would favor 4 cycles of bendamustine. Next follow-up in 3 months. Adolfo Jaimes MD CC: Dr. Jose Hugo. documented in this encounterPrem[facility]11-13-[facility] History of Present illness Narrative* Chester Patel MD - 07/31/2023 1:46 PM EST Images from the original note were not included. [facility] SECTION OF HEART FAILURE and CARDIAC TRANSPLANT MEDICINE OUTPATIENT VISIT DATE July 31, 2023 OUTPATIENT VISIT TYPE Established Patient PRIMARY CARE PHYSICIAN: Jose Miguel Herbert [address] [place] [address] CHIEF COMPLAINT: Amyloid consultation HISTORY OF PRESENT ILLNESS: 72 year old male with PMHx AL amyloid with cardiac and renal involvement ([place]; Dx with kidney biopsy), lymphoplasmacytic lymphoma, CKD 3-4 and BPH who is here for amyloid consultation referred by Sharon Hugo. Patient feels much better than prior visit. His appetite has improved, has more energy than before.He had lost about 11 lbs but has gained about 5 lbs back per chart review. He continues to complainof LE edema, I had to change my showes because of swelling. He also mentions worsening of his legweakness. Intake history: 05/02/23 Patient has been experiencing progressive constitutional symptoms of muscle weakness/fatigue, metallic taste, malaise and hoarseness in the last 6 months. He was found to have renal dysfunction and workup for SINDI was significant for an IgM kappa monoclonal protein. K 947. L 199, K/L 15. 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 Kidney biopsy was done on 04/14/23 which showed [place] light chain amyloidosis extensively involving glomeruli, the tubulointerstitium and vessel cooper and Tubular atrophy and interstitial fibrosis, moderate to severe. NT pro BNP 9400 and HS OLAF 170 04/2023. Echocardiogram 03/27/23 demons trated preserved LV systolic function with moderate concentric LVH. Dr. Hugo started him on chemotherapy: Velcade, rituximab and dexamethasone. He was referred to Cardiology due to his persistent shortness of breath, fatigue, LE edema with concerns of cardiac involvement. He feels extreme fatigue. Feels that his legs are made of rubber and they limit his ambulaiton.He feels shortness of breath when he goes up stairs. Stopped execising in January because of being so tired. Has swelling in the legs. Early satiety, no abdominal bloating. Dizziness or lightheaded when he changes position. Denies any orthopnea, PND or bendopnea. Social: Never smoker, no EOTH Family: Father had a pacemkaer late in his life No CTS, spinal stenois, bicep tendon rupture, rotator cuff. He does have trigger finger of the right hand. NURSING INTAKE (Patient s concerns and/or recent hospitalizations/ER visits): HF Nursing Assessment: Interim Hospitalizations and/or ER visits:no Chest Pain: no Skipping or irregular heartbeats: no Shortness of breath at rest: no Shortness of breath with activity: yes Cough: no Waking up in the middle of the night gasping for air: no Lightheadedness or dizziness: very rarely Feeling like you are going to pass out: no Actually passing out: no Poor energy level: no Unintentional weight gain: no Unintentional weight loss: no Swelling in your legs,feet, abdomen: yes, feet and ankles Filling up quickly when you eat: no 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 Hyperlipidemia, mixed 06/26/2023 Internal hemorrhoids without mention of complication [place]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 Living will on file 01/27/2022 DPA: Bari Betancur (tip length checker) 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 Medicare annual wellness visit, subsequent 01/27/2022 Medicare Part B: 08/18/2017 Last done: 01/27/2022 NICM (nonischemic cardiomyopathy) (HCC) 05/24/2023 Stage 3b chronic kidney disease (HCC) 05/24/2023 PAST SURGICAL HISTORY Procedure Laterality Date COLONOSCOPY FLX DX W/COLLJ SPEC WHEN PFRMD 08/07/08 COLONOSCOPY FLX DX W/COLLJ SPEC WHEN PFRMD 06/07/2018 Colonoscopy RPR 1ST INGUN HRNA AGE 5 YRS/> REDUCIBLE Hernia repair, inguinal, bilateral SIGMOIDOSCOPY FLX DX W/COLLJ SPEC BR/WA IF PFRMD 2003 Sigmoidoscopy SOCIAL HISTORY Social History Tobacco Use Smoking status: Never Smokeless tobacco: Never Vaping Use Vaping Use: Never used Substance Use Topics Alcohol use: No Drug use: No FAMILY HISTORY Problem Relation Age of Onset Prostate Cancer Father Heart Father Pacemaker Cancer Father Hodgkin's lymphoma None Sister other (non hodgkins lymphoma) Sister Coronary Artery Disease No Family History ALLERGIES: ALLERGIES No Known Allergies CURRENT MEDICATIONS: acyclovir (ZOVIRAX) 200 mg capsule^Take 1 capsule by mouth once daily.^Disp: 90 capsule^Rfl: 2 bumetanide (BUMEX) 0.5 mg tablet^Take 2 tablets by mouth once daily.^Disp: 60 tablet^Rfl: 1 (Patient taking differently: Take 0.5 mg by mouth once daily.) atorvastatin (LIPITOR) 20 mg tablet^Take 1 tablet by mouth daily at bedtime. For cholesterol.^Disp:30 tablet^Rfl: 5 ondansetron (ZOFRAN) 8 mg tablet^Take 1 tablet by mouth every 8 hours as needed (For chemotherapy induced nausea. Take 1 hour prior to treatment and then every 8 hours as needed for nausea.).^Disp: 30 tablet^Rfl: 2 REVIEW OF SYSTEMS: CONSTITUTION: Negative for: Weight loss or gain, Fever. Chills, Night sweats HEENT: Negative for: Hearing loss, Nosebleeds, Mouth sores, Trouble swallowing, Dry mouth RESPIRATORY: Positive for: Difficulty breathing GASTROINTESTINAL: Positive for: Abdominal distention MUSCULOSKELETAL: Negative for: Arthralgias, Myalgias NEUROLOGICAL: Positive for: Dizziness SKIN: Negative for: Rash EYES: Negative for: Vision disturbance CARDIOVASCULAR: Positive for: Leg swelling GENITOURINARY: Negative for: Difficulty urinatiing PATIENT ENTERED DATA: No flowsheet data found. No flowsheet data found. No flowsheet data found. PHYSICAL EXAMINATION: BP 116/71 (BP Site: Left Arm) Pulse 76 Ht 170.2 cm (5' 7) Wt 53.7 kg (118 lb 6.4 oz) SpO2 100% BMI 18.54 kg/m General: Well appearing, in no acute distress. Skin: No clubbing, no cyanosis. Eyes: Extra ocular movements intact Oropharynx: Teeth in good repair. Neck: + jugular venous distention (JVP is elevated , no carotid bruits, carotids have a normal upstroke, no palpable cmH20... although it was elevated last visit and RHC hemodynamics normal; ?TR). Nothyromegaly. Lungs: Clear to auscultation bilaterally, no wheezing or rhonchi. Heart: Regular rhythm, PMI not displaced, S1, S2 normal, no S3, no S4, no heaves, no rub and no murmur. Abdomen: Soft, nontender, bowel sounds normal, no palpable organomegaly, no bruits. Extremities: +2 b/l LE peripheral edema up to the knees. Grade 2/4 distal pulses bilaterally. Neuro: Oriented to person, place and time, alert, cooperative, gait coordinated. CARDIOVASCULAR MEDICINE TESTING: I have personally reviewed the Electrocardiogram, Laboratory Testing, and Echocardiogram. Last EKG Result Conclusion ECG COMPLETE Collected: 05/02/2023 2:22 PM (Final result) Impression: NORMAL SINUS RHYTHM INCOMPLETE RIGHT BUNDLE BRANCH BLOCK LATERAL T WAVE ABNORMALITY PROLONGED QT INTERVAL OR TU FUSION, CONSIDER HYPOKALEMIA ABNORMAL ECG Confirmed by ANKUR SCOTT MD ([id number]) on 05/13/2023 6:11:[address] Result Conclusion CT CHEST WO IVCON Exam End: 04/03/2023 3:59 PM (Final result) Impression: IMPRESSION: 1. No acute pathology 2. There is a 2 mm nodule in the anterior left upper lobe. There is a 5 x 3 mm nodule medial left lower lobe. 3. No thoracic lymphadenopathy Incidental Finding: Follow-up Acuity: Incidental Finding: Solid: <6 mm (solitary or multiple) Routing Code: N/A Recommendation: No imaging follow-up is recommended Time Frame: N/A Comments: If there are risk factors for lung malignancy, a follow-up chest CT exam could be obtained in 12 months Rn Sane: SHANIQUE Transcribe Date/Time: Apr 06 2023 12:15P Dictated by : LAURIE WOMACK MD This examination was interpreted and the report reviewed and electronically signed by: LAURIE WOMACK MD on Apr 06 2023 12:23PM EST IMPRESSION: NYHA Functional Class: III Stage: C heart failure Target weight: today, 114lbs -Chronic HFrEF. Etiology: NICM. LVEF 65%, LVIDD 3.9cm, IVS 1.5cm, normal RV function. Ischemic evaluation: 04/19/23 EKG stress test wwas positive for exercise induced EKG ischemia but nehative for exercise induced chest pain. Patient did not reach 85% of MPHR Valvular disease: No significant valvular abnormalities. ICD: No indication The etiology of his cardiomyopathy is likely secondary to infiltrative CM (amyloid heart disease). NT pro BNP 9400 and HS OLAF 170 04/2023. EKG voltage seems out of proportion to LVH. Echocardiogram (per report) shows preserved LV systolic function with moderate concentric LVH (IVS 1.5cm). K 947. L 199, K/L 15, +M protein. 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 Kidney biopsy was done on 04/14/23 which showed [place] light chain amyloidosis extensively involving glomeruli, the tubulointerstitium and vessel cooper. I do not think we need any further testing (non-invasive; I.e cMRI or invasive; I.e EMBx) as I think there is enough evidence based on EKG, echocardiography, in the setting of having a positive kidney/BM biopsy. Hematology (Dr. Hugo) started on chemotherapy 04/2023. It is difficult to understand his volume status. His symptoms have improved but he still has LE edema (at least +2, up to the shins) and elevated JVP. During our initial visit this made me think he was volume overloaded and I started him on loop diuretics. His renal function declined after I did that which prompted a RHC 06/12/23 to understand exactly what were his hemodynamics. RHC showed low biventricular filling pressures, borderline CI by TD and normal by A Julián. Will hold off on adjusting his diuretics today or adding an MRA/SGLT2i as his renal function continues to decline. Dr. Jaimes considering changing AL Rx as below. Ordering repeat EKG and echocardiogram with next visit. 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 On Velcade, rituximab and dexamethasone. Considering changing Rx to include Bendamustine due to lack of response to perviious Rx (K still 130s <--- from 200) and potentially d/c bortezemib due to ?worsening LE weakness. 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 We discussed diet, exercise, other non-medical management as above. Chester Kwan MD [facility] Section Of Heart Failure and Cardiac Transplant Medicine Heart and Vascular [place] [facility] Desk [address] [place] [address] documented in this encounterPremier Health [facility] Hospital11-07-2023 Miscellaneous Notes* Telephone Encounter - Jose Hugo DO - 07/25/2023 11:50 AM EST The following approved medication requests have been transmitted electronically. Requested Prescriptions Signed Prescriptions Disp Refills acyclovir (ZOVIRAX) 200 mg capsule 90 capsule 2 Sig: Take 1 capsule by mouth once daily. Authorizing Provider: JOSE HUGO DO * Telephone Encounter - Sarah Chavez LPN - 07/25/2023 10:23 AM EST Patient has been identified by name and date of : Yes Requested Prescriptions Pending Prescriptions Disp Refills acyclovir (ZOVIRAX) 200 mg capsule 30 capsule 2 Sig: Take 1 capsule by mouth once daily. RX INSTRUCTIONS: Patient aware RX will be sent to pharmacy. No need to notify patient. Sarah Chavez LPN * Telephone Encounter - Cynthia Reese - 07/25/2023 9:56 AM EST Patient asking if he is to continue shingles prevention medication. States no refill on bottle. documented in this encounterPremier Health [facility]11-01-2023 History of Present illness Narrative* Amparo Meeks RN - 07/19/2023 8:07 AM EDT No changes to assessment from OV yesterday with Dr. Hugo. Amparo Meeks RN documented in this encounterPremier Health [facility]10-31-2023 History of Present illness Narrative* Jose Hugo DO - 07/18/2023 9:11 AM EDT Diagnosis: 1) IgM kappa HPI: The patient is a 72 yo male with a PMH significant for BPH. Had labs 03/17/2023 for upcoming annual appointment with Dr. Herbert. Per Dr. Herbert's recent eveluation: Patient ws recently sent to [facility] due to SINDI. BUN was 47 and Crewas 2.47 with potassium of 5.3. patient used Excedrin on occasion, maybe a few times a month if that. Denies chronic NSAID use. EKG in ER showed ST-T wave changes in the lateral leads. 2D echo was unremarkable with normal LV size, mod concentric VH, systolic function was normal with an EF of 65%, mild diastolic dysfunction. His Trop level was elevated but since the echo was ok. No further cardiacw/u was pursued. An US of the kidnies and bladder showed possible chronic kidney disease, no hydronephrosis. Chest x-ray was normal. Patient was not started on any medications to go home on. He has an appt tomorrow with renal. CBC showed WBC normal at 6.8, Hg slightly low at 12.5, MCV was normal. Differential was unremarkable. Sodium, potassium, LFT's and TSH were al ok. Patient has been experiencing fatigue over the last 6 months. Also noticed a changed in his voice in the past 6 months off and on with hoarseness. Food has been tasting metalic Very Dry mouth. Has to take sips of water to help food go down. No N/V, diarrhea, hematochezia or melena. Eating less; no appetite. Has lost approx 10 lbs in past 1-2 months. Urination increased but always feeling thristy Swelling in both ankles and legs since maybe the beginning of this past year. Increased SOB and muscle fatigue No chest pain Stopped exercising in January due to fatigue and weakness. In October while he was swimming he felt like he was swimming in [employer]. No shortness of breath. Denied chest heaviness, tightness or palpitations. Echo at [facility]: Interpretation Summary Normal LV size. Moderate concentric left ventricular hypertrophy. Left ventricular systolic function is normal. The estimated ejection fraction is 65 %. Stage 1 diastolic dysfunction. Pulmonary artery systolic pressure is 28 mmHg. Contrast injection was performed. Gets hungry, but due to metallic taste and malaise, didn't feel like preparing much. Presents for ongoing oncologic management. Interim history: I feel a lot better. Eating more than before. Taste is better, but not back to normal. No nasuea. Only takes ondansetron prior to bortezomib. No diarrhea. Bowels moving about every other day. Biotene helping with dry mouth. Less days in bed or on the floor. Has more stamina. Legs still weak. Less swelling in LEs. Feet swollen. Persists throught the night. Numbness in the feet more persistent in the toes. Fingers no neuropathy. No chest pain/pressure. No FINNEGAN, but can't walk far due leg weakness. No cough. Less orthostasis. Feels he can void to completion. Typically nocturia x2. He is tolerating treatment very well thus far. 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 Hyperlipidemia, mixed 06/26/2023 Internal hemorrhoids without mention of complication [place]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 Living will on file 01/27/2022 DPA: Bari Chavezd (tip length checker) 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 Medicare annual wellness visit, subsequent 01/27/2022 Medicare Part B: 08/18/2017 Last done: 01/27/2022 NICM (nonischemic cardiomyopathy) (HCC) 05/24/2023 Stage 3b chronic kidney disease (HCC) 05/24/2023 PAST SURGICAL HISTORY Procedure Laterality Date COLONOSCOPY FLX DX W/COLLJ SPEC WHEN PFRMD 08/07/08 COLONOSCOPY FLX DX W/COLLJ SPEC WHEN PFRMD 06/07/2018 Colonoscopy RPR 1ST INGUN HRNA AGE 5 YRS/> REDUCIBLE Hernia repair, inguinal, bilateral SIGMOIDOSCOPY FLX DX W/COLLJ SPEC BR/WA IF PFRMD 2002 Sigmoidoscopy ALLERGIES No Known Allergies Social History Tobacco Use Smoking status: Never Smokeless tobacco: Never Vaping Use Vaping Use: Never used Substance Use Topics Alcohol use: No Drug use: No Not . No children. Family History Problem Relation Age of Onset Prostate Cancer Father Heart Father Pacemaker Cancer Father Hodgkin's lymphoma None Sister other (non hodgkins lymphoma) Sister Coronary Artery Disease No Family History ROS: Constitutional: No fever. No drenching night sweats. Neuro: No recent SELF. HEENT: No recent change in vision or hearing. Resp: CVS: No PND or orthopnea. GI: No dysphagia or odynophagia. No reflux. No abdominal pain, bloating or distension. No black or bloody stools. : No dysuria or gross hematuria. Endo: No hot flashes. Cold intolerance. Musculoskeletal: No bone, back, joint and muscular pain. Derm: No current rash. No history of jaundice. No diffuse pruritis. Heme: No unusual bleeding and unexplained bruising. Psych: Normal mood. PHYSICAL EXAM: Vitals: Blood pressure 115/71, pulse 81, temperature (!) 35.9 C (96.6 F), weight 52.8 kg (116 lb 8 oz), SpO2 100 %. Thin-appearing and in no acute distress. EYES: Sclerae are anicteric bilaterally. LYMPHATIC: There is no palpable cervical, supraclavicular, axillary adenopathy. RESPIRATORY: Inspiratory breath sounds are of normal intensity in all muñoz. No rales, wheezes or rhonchi. CARDIOVASCULAR: Rhythm is regular. Soft systolic murmur. ABDOMEN: The abdomen is nondistended. No splenomegaly or hepatomegaly. No tenderness. Extremities: Mild edema right ankle. SKIN: No jaundice or rash. NEUROLOGIC: tire adjuster II-XII are grossly intact. No focal motor weakness. MUSCULOSKELETAL: Weak in the thighs bilaterally. LABORATORY DATA: PATHOLOGY: Bone marrow biopsy 04/11/2023: A-C. 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 - Hypercellular bone marrow (60-70%) with maturing trilineage hematopoiesis. - Increased storage iron. - Positive for amyloid deposition (numerous blood vessels, [place] red stain confirmatory). - See comment. 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 Left kidney biopsy 04/14/2023: A. [facility] [place] left kidney biopsy: - [place] light chain amyloidosis extensively involving glomeruli, the tubulointerstitium and vessel cooper. - Tubular atrophy and interstitial fibrosis, moderate to severe. Light microscopy shows prominent amyloid accumulation within glomeruli, vessel cooper and in a patchy distribution in the tubulointerstitium. Immunofluorescence shows strong staining for kappa and essentially negative staining for the remaining tested reactants. Electron microscopy confirms the presence of 8 to 10 nm fibrosis characteristic of amyloidosis. 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 CARDIOLOGY: Echocardiogram 03/17/2023 done at [facility] demonstrated normal LV size with moderate concentric left ventricular hypertrophy and left ventricular systolic function normal with estimated ejection fraction 65%. Stage I diastolic dysfunction was observed. Pulmonary artery systolic pressure estimated at 28 mmHg. Echocardiogram same day demonstrated normal sinus rhythm with incomplete right bundle branch block ST and T wave abnormality, consider lateral ischemia, prolonged QT. Exercise stress test at [facility] 04/19/2023: Impression: 1. Inability to reach 85% of maximal age-predicted heart rate decreases the sensitivity of this test exercise tolerance test 2. Stress test is positive for exercise-induced EKG changes of ischemia. However the specificity ofthis finding is decreased because of baseline ST-T changes 3. The test test is negative for exercise-induced chest pain 4. Functional capacity is decreased for age 5. Nuclear images pending Myocardial perfusion imaging study: Technique: The patient was injected with 11.1 mCi of technetium 99m Cardiolite and subsequently rest SPECT Cardiolite nuclear imaging was obtained in the horizontal long, vertical long, and short axis views. The patient exercised on a Adria protocol. Please see above for details. The patient was injected with33.3 mCi of technetium 99m Cardiolite and subsequently stress SPECT Cardiolite nuclear imaging was obtained in the horizontal long, vertical long, and short axis views. A gated Cardiolite study at peak stress was obtained. Interpretation: Rest and stress SPECT Cardiolite nuclear imaging status post realignment, normalization, and attenuation correction, demonstrates mild decrease in the radioisotope uptake in the inferior wall prior to attenuation correction. After attenuation correction there is normal myocardial radioisotope uptake overall. These findings are suggestive of diaphragmatic attenuation artifact. The gated Cardiolitestudy demonstrates no significant regional wall motion abnormalities. The reported LVEF is 56%. Impression: 1. There is no definite evidence of ischemia. Please see the EKG portion of the test above as well.The sensitivity of this test is decreased because of inability to reach 85% of maximal age-predicted heart rate. 2. The gated Cardiolite study reports an LVEF of 56%. 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 Assessment: -The patient is a 72-year-old male with a past medical history significant for BPH. Over the last several months prior to presentation he had been experiencing progressive constitutional symptoms of muscle weakness/fatigue, metallic taste, malaise and hoarseness. He was found to have kidney azotemia. -Work-up for SINDI significant for IgM kappa monoclonal protein. He had no diarrhea. No symptoms of sensory neuropathy. Renal biopsy diagnosed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. -Baseline serum MP 0.7 g/dL at start of therapy. 0.35 g/dL last month. 50% decrease. -BNP and troponin led to cardiac work-up. -CTs 04/06/2023 Two small pulmonary nodules. No adenopathy or splenomegaly. -Reviewed labs from today. Anemia remains mild and overall stable. No thrombocytopenia. No neutropenia. -CR increased. -BP improved. -Serum kappa light chain trending lower. Plan: -Continue therapy. -CBC/CMP/LDH/MM labs (no urines) with D1. -D8, 15, 21 CBC. -OV/CBC/CMP/LDH/Myeloma labs/24 hour urine M-spike for cycle #5. -Will receive oral dexamethasone with each treatment. -Decrease bumetanide to 1 tablet daily due to recent increase in serum creatinine. 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 Portions of this documentation were copied and pasted from previous office visit notes in order to provide a cohesive continuity of the history. The note has been reviewed and edited and updated as necessary. I spent a total of 25 minutes on the date of the service which included preparing to see the patient, [id number] patient care, completing clinical documentation, obtaining and/or reviewing separately obtained history, performing a medically appropriate examination, counseling and educating the pat ient/family/caregiver, ordering medications, tests, or procedures, communicating with other HCPs (not separately reported), and communicating results to the patient/family/caregiver. Jose Hugo DO documented in this [facility]Prem[facility]10-11-2023 Miscellaneous Notes* Telephone Encounter - Prema Isaac RN - 06/28/2023 11:16 AM EDT Message given to patient. Verbalized understanding to instructions. Prema Isaac RN * Telephone Encounter - Jose Hugo DO - 06/28/2023 9:01 AM EDT I sent in a prescription for Bumex 0.5 mg tablets. He can take 1 tablet daily. If he does not notice any increase in urination then he can increase to 2 tablets once daily. Bumex should work better than Lasix. Add BMP for when he is here next Monday. Jose Hugo DO * Telephone Encounter - Naa Green RN - 06/28/2023 8:28 AM EDT Pt here today for D8C3 Velcade. FYI Feels the swelling in his lower extremities has increased. R side worse than left. +2 pitting edema bilat. States the numbness and tingling in his toes is worse since edema has increased also. Pt no longer taking lasix due to increase serum creatinine and low BP. Please advise. documented in this encounterPrem[facility]10-10-2023 Miscellaneous Notes* Telephone Encounter - Kirstin Og RN - 06/27/2023 3:44 PM EDT Pt called and is notified of providers message and instructions. Pt voices understanding. Kirstin Og RN * Telephone Encounter - Jose Miguel Herbert MD - 06/27/2023 3:32 PM EDT Let patient know I did not find any interactions between the atorvastatin and his chemo meds. The following approved medication requests have been transmitted electronically. Requested Prescriptions Signed Prescriptions Disp Refills atorvastatin (LIPITOR) 20 mg tablet 30 tablet 5 Sig: Take 1 tablet by mouth daily at bedtime. For cholesterol. Authorizing Provider: JOSE MIGUEL HERBERT MD * Telephone Encounter - Nina Tang LPN - 06/27/2023 2:34 PM EDT Pt was given results & message from pcp. Pt was surprised with lab results however states he iswilling to start atorvastatin. Pt states he is getting chemo meds Rituxan & Velcade & wantsto be sure there will be no interactions. Pt uses [facility] in [place]. Nina Tang LPN * Telephone Encounter - Cathie Rubin MA - 06/26/2023 8:33 AM EDT Left message for patient to contact office. Cathie Rubin MA * Telephone Encounter - Jose Miguel Herbert MD - 06/26/2023 8:17 AM EDT Let patient know blood sugar test for A1c is slightly above normal. His was 5.7%. high end of normal is 5.6% and diabetes is 6.5% and higher. Advise trying to reduced sugars, carbs, sweets and starches in diet to help reduce risk of developing diabetes. Lipid panel showed Trigs elevated at 232 (goal<150 and was 96), HDL is good at 64 and LDL is very high at 270 (goal<130). I would strongly advise we start him on Atorvastatin at 20 mg a day. documented in this encounterPrem[facility]10-05-2023 Miscellaneous Notes* Telephone Encounter - Madisyn Powell RN - 06/22/2023 3:31 PM EDT Images from the original note were not included. Called the patient and explained that Dr. Reyes does not want anything changed as far as treatments at this time but does feel a f/u appt with an ANDREI in 2 weeks would be best. Pt verbalized understanding of information provided. Madisyn Powell RN June 22, 2023 3:42 PM * Telephone Encounter - Madisyn Powell RN - 06/22/2023 3:14 PM EDT Images from the original note were not included. Chester Patel MD You 45 minutes ago (2:28 PM) Would stay the course with his treatment, would not make any changes from my stand point. [place], can you send a request so he gets scheduled with one of the HF ANDREI's in 2-4 weeks Thanks * Telephone Encounter - Madisyn Powell RN - 06/22/2023 2:13 PM EDT Reached patient and discussed that his breathing is fine. Does not weigh himself daily but gets weighed here at [facility] on days of treatment. Weight was 119lb on 06/19/2023. Patient does state he has more swelling in his ankles, feet and it is moving up his shins. Patient does feel that his fatigue is better, his arms feel better, but his legs are extremely weak and his legs do not even have enough strength to walk. Madisyn Powell RN June 22, 2023 2:21 PM * Telephone Encounter - Madisyn Powell RN - 06/21/2023 2:59 PM EDT Attempted to reach the patient but no answer. Left a message and asked for pt to call back to either the nurse line [phone] or the office at [phone] to discuss weights and breathing. Madisyn Powell RN June 21, 2023 3:00 PM * Telephone Encounter - Madisyn Powell RN - 06/21/2023 2:55 PM EDT Images from the original note were not included. Chester Patel MD P Hvi J3-4 Opd Nurses Hi NT pro BNP went up quite a lot. He is undergoing chemo. RHC actually showed he was dry (He has always had some swelling in his legs). Is he gaining weight or feeling more shortness of breath? Thanks documented in this encounterPrem[facility]09-19-2023 Miscellaneous Notes* Telephone Encounter - Dina Tolentino RN - 06/06/2023 3:24 PM EDT [facility] Care Coordination FOLLOW-UP NOTE Patient identified by name and date of . YES Spoke to patient Received a staff message regarding the need for patient to increase fluids. Called patient. Patientstated he was instructed by Dr. Kwan's office to increase fluids to 2L per day. This nurse also encouraged 2L of hydration daily. Patient stated he has a cup with measurements on the outside. Patient was encouraged to use that cup since it is measurable and he can easily track how much fluid he isdrinking daily. Patient cancelled appointment with Kirstin West d/t conflict with cardiology appointment. Patient does not wish to schedule appointment at this time. Patient stated his PCP encouraged him to make a milkshake daily however he does not have a wax blender. Going to the store is too much work for him and he is not sure what to buy on [employer] [employer]. Patient stated the bullet brand of blenders was recommended and he is overwhelmed by the variety of choices. Patient was encouraged to pick a basic wax blender that doesn't have a ton of attachments since he would like to use this for basic smoothie needs. Patient agreed and stated he will think about buying one for himself. Patient has no culinaryskills at all and goes out to eat twice per week. Patient will reach out to this nurse if he changes his mind on making an appointment with Kirstin. Will reach out to to see if there are any meal services available for patient. Care Coordination Plan: Will follow up as needed. Dina Tolentino RN June 06, 2023 documented in this encounterPrem[facility]09-15-[facility] History of Present illness Narrative* Elma Landrum MD - 06/02/2023 3:21 PM EDT HEART FAILURE PROCEDURAL CONSENT NOTE Surgery/Procedure Date: June 02, 2023 Procedure: Right Heart Catherization Informed Consent: The risks including radiation skin injury, benefits, and anticipated outcomes of the procedure, therisk and benefits of the alternatives to the procedure,and the roles and tasks of the personnel to be involved, were discussed with the patient, and the patient consents to the procedure and agrees to proceed. Consented by: Elma Landrum MD See separate Procedural Sedation Consent form if sedation is to be administered. UNIVERSAL PROTOCOL / SAFETY CHECKLIST Procedure to be Performed: Right Heart Catherization Sign In: A Moment of CARE was completed. Personnel directly involved with the procedure wore the appropriate PPE (Personal Protective Equipment). No special equipment needed. Patient/Surrogate Stated/Verified: PATIENT VERIFIED(optional for EMERGENT procedures): Patient name, Date of , Relevant allergies, and The intended procedure Time Out Communication: Intended patient and procedure match the source documents. Consent documented and matches the intended procedure. Relevant labs, photos, and/or imaging studies have been reviewed. Correct side/site marked and visible. Medications required for procedure verified. Fire risk assessed and interventions discussed. No implant(s) inserted. Sign Out: SIGN OUT (optional for EMERGENT procedures): All specimen containers correctly labeled. All instruments, equipment, possible retained foreign bodies accounted for. Post-procedure follow-up management communicated and Plan of Care Visit completed when applicable. Elma Landrum MD History and Physical: Edgar Henderson is a 72 year old year-old patient here for Right Heart Catheterization for the indication of symptom evaluation. Last seen 05/02/2023 with documented H&P verified. Pertinent examination today revealed: Lungs: clear to auscultation Heart: Regular rate & rhythm, S1, S2, no S3, No murmers or clicks Post Procedural Plan: Discharge Home SIGNATURE: Elma Landrum MD PATIENT NAME: Edgar Henderson DATE: June 02, 2023 TIME: 3:22 PM documented in this encounterPremier [facility]09-14-2023 Miscellaneous Notes* Telephone Encounter - Hayley Wilkes RN - 06/01/2023 2:10 PM EDT CARDIOVASCULAR LAB INSTRUCTIONS: Readiness to Learn: Cognitive Ability: Alert and oriented Motivation To Learn: Interested Family/Significant Other Support: Unable to assess - Family not present Instruction Provided To: Patient Patient Learns Best By: Verbal Instruction Factors Affecting Learning: None Physical Limitations Affecting Learning: None Learning Response: Procedure: Right Heart Diagnostic Pre procedure education topics: Arrival time/NPO Status/Medications/Travel Instructions/Restrictions Patient/Family Response Evaluation: Verbalizes understanding Follow Up Plan and Medication: As directed by physician Instruction/Supplemental Material Given: Cardiac catheterization instructions, procedure information, hospital information, hotel information. Instructed By Hayley Wilkes RN. In Department of CARDIOLOGY. documented in this encounterPremier [facility]09-13-2023 History of Present illness Narrative* Lo Hare RN - 05/31/2023 10:22 AM EDT Study Number: [id number] Study Title: Collection of Blood & Bone Marrow from Normal Volunteers & Patients for Research Purposes Consent expiration date: 12/07/2023 Spoke with patient at the request of Jose Hugo D.O. Treatment plan, including all testing, potential risks/benefits, side effects and management, treatment alternatives, and follow-up explained. Roles of the clinical trial personnel to be involved and the financial responsibilities regarding procedures and medications were discussed. Discussed the importance of effective contraception during andfollowing completion of active therapy for NA. Initial questions were answered and a copy of the informed consent was given to patient with the instructions to read it and call with any additional questions. Contact information for the research nurse was given to the patient. The patient verbalizedappropriate understanding of all the aforementioned information presented. Time of Presentation: 8:45 AM May 31, 2023 Lo Hare RN Research Nurse [facility] [phone] documented in this encounterPremier [facility]09-11-2023 History of Present illness Narrative* Chester Patel MD - 05/29/2023 3:22 PM EDT Difficult to understand what is his volume status. His NT pro BNP continues to rise. Diuretics stopped due to SINDI. Will order a Right Heart Catherization. Chester Kwan MD documented in this encounterPremier [facility]09-09-2023 Instructions* Patient Instructions* Jose Miguel Herbert MD - 05/27/2023 9:28 AM EDT When you get blood draws in the next month make sure they do not do the non- fasting lipid panel or A1c test until 06/18/2023 or after. Try to get protein powder and make a milk shake once a day with this along with some bananas and peanut butter. 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 Medications reviewed: Yes FAMILY HISTORY FAMILY HISTORY Problem Relation Age of Onset Prostate Cancer Father Heart Father Pacemaker None Sister Cancer Father Hodgkin's lymphoma Cancer Sister lymphoma SOCIAL HISTORY: SOCIAL HISTORY Social History Tobacco Use Smoking status: Never Smoker Smokeless tobacco: Never Used Substance Use Topics Alcohol use: No Drug use: No Edgar works out regularly 2 times per week with swimming or swim class. He watches his diet for sodium, low fat and low cholesterol some of the time. List of current specialists seen: ann marie Shoemaker (Urology for hydrocele) End of Live Planning discussed including patients advanced directive wishes: Yes I am willing to follow Edgar's advanced directives. PHQ-2 / Depression screen Depression Screening 05/18/2018 07/04/2019 01/27/2022 05/27/2023 PHQ-2 Score 0 0 0 0 Depression screening tool completed and reviewed. Based on score and interview, patient is not at risk for depression. Screening tool discussed with patient, and I recommended no further interventionat this time. Functional Ability/Safety Screen 1. Was the patient's timed Up and Go test unsteady or longer than 30 seconds? No 2. Does the patient need help with the phone, transportation, shopping,preparing meals, housework, laundry, medications or managing money? No 3. Does your home have rugs in the hallway, lack of grab bars in the bathroom(Y), lack of handrailson the stairs or have poor lighting? No Hearing Evaluation: normal PHYSICAL EXAM BP 102/70 (BP Site: Left Arm, BP Position: Sitting, BP Cuff Size: Regular Adult) Pulse 67 Temp 36.6 C (97.8 F) Resp 16 Ht 170.2 cm (5' 7) Wt 50.3 kg (111 lb) BMI 17.39 kg/m Alert and oriented X 3: YES Body mass index is 17.39 kg/m . Visual acuity: seeing optho See below ASSESSMENT/PLAN: 72 year old male The following prevention plan was discussed during the office visit and provided to the patient: See below Jose Miguel Herbert MD Chief Complaint Patient presents with: Medicare Wellness Exam HPI Edgar Henderson is a 72 year old male who presents here today for Chronic Medical Conditions. and Medicare Annual Visit. Patient with Hx of abnormal thyroid lab, Al amyloidisis, Anemia, leg edema, [place] light chain disease, lymphoplasmacytic lymphoma, nonischemic cardiomyopathy, CKD, BPH as those as reviewed bellow Patient was recently diagnosed with the amyloidosis, CKD, [place] light chain disease and lymphoplastic lymphoma and is set up with specialists for care. Patient's lasix was held do to very low BP's and cardio aware. Past medical history, appointments, medications, allergies reviewed. 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 Living will on file 01/27/2022 DPA: Bari Betancur (tip length checker) 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 Medicare annual wellness visit, subsequent 01/27/2022 Medicare Part B: 08/18/2017 Last done: 01/27/2022 NICM (nonischemic cardiomyopathy) (HCC) 05/24/2023 Stage 3b chronic kidney disease (HCC) 05/24/2023 Previous Surgical History PAST SURGICAL HISTORY Procedure Laterality Date COLONOSCOPY FLX DX W/COLLJ SPEC WHEN PFRMD 08/07/08 COLONOSCOPY FLX DX W/COLLJ SPEC WHEN PFRMD 06/07/2018 Colonoscopy RPR 1ST INGUN HRNA AGE 5 YRS/> REDUCIBLE Hernia repair, inguinal, bilateral SIGMOIDOSCOPY FLX DX W/COLLJ SPEC BR/WA IF PFRMD 2002 Sigmoidoscopy Family History FAMILY HISTORY Problem Relation Age of Onset Prostate Cancer Father Heart Father Pacemaker Cancer Father Hodgkin's lymphoma None Sister other (non hodgkins lymphoma) Sister Coronary Artery Disease No Family History Patient Allergies ALLERGIES No Known Allergies Current Medications Current Outpatient Medications on File Prior to Visit Medication Sig acyclovir (ZOVIRAX) 200 mg capsule Take 1 capsule by mouth once daily. ondansetron (ZOFRAN) 8 mg tablet Take 1 tablet by mouth every 8 hours as needed (For chemotherapy induced nausea. Take 1 hour prior to treatment and then every 8 hours as needed for nausea.). furosemide (LASIX) 20 mg tablet Take 1 tablet by mouth once daily. (Patient not taking: Reported on05/27/2023) Current Facility-Administered Medications on File Prior to Visit Medication perflutren lipid microspheres 1.3 mL in NaCl (PF) 0.9% 10 mL injection (DEFINITY) sodium chloride 0.9 % (flush) 10 mL (BD POSIFLUSH) Social History Social History Tobacco Use Smoking status: Never Smokeless tobacco: Never Vaping Use Vaping Use: Never used Substance Use Topics Alcohol use: No Drug use: No Review of Symptoms REVIEW OF SYSTEMS GENERAL: No has had some further weight loss. malaise or fevers HEENT: Negative for frequent or significant headaches, No changes in hearing or vision, no nose bleeds or other nasal problems. Still with hoarse voice. (Saw ENT and no abnormalities) NECK: Negative for lumps, goiter, pain and significant neck swelling RESPIRATORY: Negative for cough, hemoptysis, wheezing, Still with dyspnea and shortness of breath, stable. No orthopnea. CARDIOVASCULAR: Negative for chest pain, increased. leg swelling, hypertension, CHF or palpitations GI: No nausea, vomiting, or diarrhea, No heartburn or reflux symptoms, and no blood : No history of dysuria, frequency or blood MUSCULOSKELETAL: Negative for joint pain or swelling, back pain or muscle pain SKIN: Negative for lesions, rash, and itching PSYCH: Negative for sleep disturbance, mood disorder and recent psychosocial stressors HEMATOLOGY/LYMPHOLOGY: Negative for prolonged bleeding, bruising easily or swollen nodes ENDOCRINE: Negative for heat intolerance, polyuria, polydipsia and goiter. With the weight loss hashad some cold intolerance. NEURO: No history of headaches, syncope, paralysis, seizures or tremors EXAM: BP 102/70 (BP Site: Left Arm, BP Position: Sitting, BP Cuff Size: Regular Adult) Pulse 67 Temp 36.6 C (97.8 F) Resp 16 Ht 170.2 cm (5' 7) Wt 50.3 kg (111 lb) BMI 17.39 kg/m Last 5 Encounter Wt Readings: Date: Wt: 05/27/2023 50.3 kg (111 lb) 05/23/2023 50.1 kg (110 lb 8 oz) 05/18/2023 52.2 kg (115 lb) 05/11/2023 52.2 kg (115 lb) 05/03/2023 53.8 kg (118 lb 8 oz) General Appearance: Well appearing, alert, in no acute distress, well-hydrated, well nourished. andThin. Skin: Skin color, texture, turgor normal, no suspicious rashes or lesions. Head: Normocephalic, no masses, lesions, tenderness or abnormalities. Eyes: Anicteric sclera. Pupils are equally round and reactive to light. Extraocular movements are intact. . Ears: External ears, TM's normal, canals clear. Nose/Sinuses: Nares normal, septum midline, mucosa normal, no drainage or sinus tenderness. Oropharynx: Lips, mucosa, and tongue normal, teeth and gums normal, oropharynx normal. Neck: Supple, no adenopathy; thyroid symmetric, normal size, no bruits. Lungs: Lungs clear to auscultation. No wheezing, rhonchi, rales.. Heart: RRR without murmur, gallop, or rubs. No ectopy. Abdomen: Normal abdominal exam, Abdomen soft, non-tender. Bowel sounds normal. No masses, organomegaly. Extremities: No deformities, skin discoloration, Good capillary refill. Has edema at the ankles.. Musculoskeletal: Muscular strength intact, No joint swelling, deformity, or tenderness. Peripheral Pulses: Normal. Neurologic: Gait normal. Reflexes normal and symmetric. Sensation to light touch and crainal nerves2-12 intact.. Health Maintenance List COVID-19 VACCINE(3 - Elida risk series) due on 09/16/2021 ADVANCE DIRECTIVE DISCUSSION due on 09/18/2022 DEPRESSION ASSESSMENT Never done SHINGRIX VACCINE(2 of 2) due on 05/03/2023 INFLUENZA(1) due on 05/19/2023 SERUM CREATININE due on 05/23/2024 HEMOGLOBIN/HEMATOCRIT due on 05/23/2024 ANNUAL PCP TEAM CHRONIC DISEASE VISIT due on 05/27/2024 DIABETES SCREEN due on 05/23/2026 LIPID SCREEN due on 03/16/2028 COLORECTAL CANCER SCREENING due on 06/07/2028 DTAP,TDAP,TD(3 - Td or Tdap) due on 02/28/2033 PNEUMOCOCCAL: 65+ Completed HPV VACCINE Aged Out HEPATITIS C SCREENING Discontinued Data reviewed Component Latest Ref Rng & Units 03/16/2023 03/27/2023 04/26/2023 05/23/2023 WBC 3.70 - 11.00 k/uL 7.31 6.09 RBC 4.20 - 6.00 m/uL 3.78 (L) 3.42 (L) Hemoglobin 13.0 - 17.0 g/dL 12.4 (L) 11.6 (L) Hematocrit 39.0 - 51.0 % 38.8 (L) 34.4 (L) MCV 80.0 - 100.0 fL 102.6 (H) 100.6 (H) MCH 26.0 - 34.0 pg 32.8 33.9 MCHC 30.5 - 36.0 g/dL 32.0 33.7 RDW-CV 11.5 - 15.0 % 14.4 15.4 (H) Platelet Count 150 - 400 k/uL 263 246 MPV 9.0 - 12.7 fL 11.0 10.3 Neut% % 55.2 58.7 Abs Neut (ANC) 1.45 - 7.50 k/uL 4.03 3.58 Lymph% % 34.3 29.9 Abs Lymph 1.00 - 4.00 k/uL 2.51 1.82 [place]% % 7.5 8.5 Abs [place] <0.87 k/uL 0.55 0.52 Eosin% % 1.9 2.0 Abs Eosin <0.46 k/uL 0.14 0.12 Baso% % 1.0 0.7 Abs Baso <0.11 k/uL 0.07 0.04 Immature Gran % % 0.1 0.2 IMMATURE GRANS (ABS) <0.10 k/uL <0.03 <0.03 NRBC /100 WBC 0.0 0.0 Absolute nRBC <0.01 k/uL <0.01 <0.01 DTYPE Auto Auto Color Yellow Light Yellow Clarity Clear Clear Glucose, Urine Trace, Negative Negative Bilirubin, Urine Negative Negative Ketones, Urine Trace, Negative Negative Specific [place], Ur 1.005 - 1.030 1.011 Hemoglobin/Blood,Ur Negative, Trace Negative pH, Urine 5.0 - 8.0 6.5 Protein, Urine Trace, Negative 2+ (A) Urobilinogen Negative Negative Nitrites Negative Negative Leukest Negative, 25 Kelsi/uL Negative WBC, Urine 0-5 /HPF 0-5 /HPF RBC, Urine 0-3 /HPF 0-3 /HPF Epithelial Cells /HPF Few Hyaline Cast 0 /LPF 1-3 /LPF (A) Protein, Total 6.3 - 8.0 g/dL 6.4 5.9 (L) 5.9 (L) Albumin 3.9 - 4.9 g/dL 3.6 (L) 3.3 (L) 3.2 (L) Calcium 8.5 - 10.2 mg/dL 9.7 9.4 9.4 Bilirubin, Total 0.2 - 1.3 mg/dL 0.4 0.5 0.5 Alkaline Phosphatase 38 - 113 U/L 97 93 104 AST 14 - 40 U/L 30 23 15 ALT 10 - 54 U/L 24 19 18 Glucose 74 - 99 mg/dL 85 109 (H) 176 (H) BUN 9 - 24 mg/dL 47 (H) 42 (H) 70 (H) Creatinine 0.73 - 1.22 mg/dL 2.47 (H) 2.40 (H) 3.26 (H) Sodium 136 - 144 mmol/L 139 137 138 Potassium 3.7 - 5.1 mmol/L 5.3 (H) 4.3 3.8 Chloride 97 - 105 mmol/L 101 100 101 CO2 22 - 30 mmol/L 24 25 25 Anion Gap 9 - 18 mmol/L 14 12 12 eGFR >=60 mL/min/1.73m 27 (L) 28 (L) 20 (L) Total Cholesterol, Nonfasting <200 mg/dL 316 (H) Triglycerides, Nonfasting <150 mg/dL 96 HDL Cholesterol, Nonfasting >39 mg/dL 74 LDL Cholesterol, Nonfasting <100 mg/dL 223 (H) Non HDL Cholesterol, Nonfasting <130 mg/dL 242 (H) VLDL Cholesterol, Nonfasting <30 mg/dL 19 Total Chol/HDL Ratio, Nonfasting <5.10 mg/dL 4.27 LDL/HDL Ratio, Nonfasting <2.54 mg/dL 3.01 (H) Iron 41 - 186 ug/dL 101 TIBC 232 - 386 ug/dL 233 Transferrin Saturation 15.0 - 57.0 % 43.3 PSA <2.60 ng/mL 0.22 Vitamin B12 232 - 1,245 pg/mL 554 TSH 0.270 - 4.200 mIU/L 3.180 Free T3 2.3 - 4.1 pg/mL 1.4 (L) Free T4 0.9 - 1.7 ng/dL 1.7 A/P ASSESSMENT/PLAN: 1. Medicare annual wellness visit, subsequent - ICD9: V70.0, ICD10: Z00.00 (primary diagnosis) - Counseled on healthy diet and regular exercise - Follow up for annual exam in one year - advised on ways to increase calories in diet. 2. 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- ICD9: , ICD10: C83.00 - management per Hem/Onc 3. 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 Stage 3b chronic kidney disease (HCC) - ICD9: 585.3, ICD10: N18.32 - management per renal 5. SINDI (acute kidney injury) (HCC) - ICD9: 584.9, ICD10: N17.9 - as per #4 6. AL amyloidosis (HCC) - ICD9: 277.39, ICD10: E85.81 - seeing renal and cardio 7. Abnormal thyroid blood test - ICD9: 790.6, ICD10: R79.89 - will be seeing Endo in Aug and do not feel this needs moved up. 8. Anemia, unspecified type - ICD9: 285.9, ICD10: D64.9 - stable seeing hem/onc 9. Bilateral leg edema - ICD9: 782.3, ICD10: R60.0 - ankles only. Not able to tolerate lasix due to low BP. 10. NICM (nonischemic cardiomyopathy) (HCC) - ICD9: 425.4, ICD10: I42.8 - management per cardio. 11. BPH without obstruction/lower urinary tract symptoms - ICD9: 600.00, ICD10: N40.0 - stable 12. Elevated LDL cholesterol level - ICD9: 272.0, ICD10: E78.00 On or after 06/18/2023 will check - LIPID PANEL, NONFASTING 13. Elevated blood sugar - ICD9: 790.29, ICD10: R73.9 On or after 06/18/2023 will check - HGB A1C F/ 6 months routine I spent a total of 40 minutes on the date of the service which included preparing to see the patient, [id number] patient care, completing clinical documentation, performing a medically appropriate examination, counseling and educating the patient/family/caregiver and ordering medications, tests, or procedures. Jose Miguel Herbert MD documented in this encounterPrem[facility]09-06-2023 History of Present illness Narrative* Denise Reveles, RN - 05/24/2023 10:20 AM EDT Patient came in appearing to have difficulty walking to treatment chair. He denied feeling lightheaded or dizzy but stated that he was extremely fatigued and he has been feeling this was for quitesome time now. His BP manually was 82/50 with a HR of 80. I discussed vitals with Dr. Hugo who wanted orthostatic vitals taken (See flow sheet). After ortho vitals were obtained, 500ml NaCL was order per to run over 2 hours. documented in this encounterPremier [facility]08-25-2023 History of Present illness Narrative* Gricel Bruno LPN - 05/12/2023 8:44 AM EDT Scan on 05/12/2023 8:32 AM by Provider, External, KELBY: Consultation - documented in this encounterPremier Health [facility]08-24-2023 Miscellaneous Notes* Telephone Encounter - Jose Hugo DO - 05/11/2023 8:29 AM EDT Signed. Jose Hugo DO * Telephone Encounter - Cass Jacobs LPN - 05/11/2023 8:15 AM EDT Please file new lab order. Lab accidentally michelle this but it has to be drawn at a hospital lab. Cass Jacobs LPN documented in this encounterPremier Health [facility]08-22-2023 Miscellaneous Notes* Telephone Encounter - Kirstin Og RN - 05/09/2023 10:47 AM EDT Pt called and is notified of providers results and instructions. Pt voices understanding, he will call back in and ask for scheduling to make appointment for endocrinology. Pt asked if Hematology wasgoing to be made aware he was going to be seeing Endo. I told him as long as they were in the [facility] they can see all the information, which they are. I told him providers office don't typically send information to other providers unless it was because they requested it or initiated a labor procedure that resulted in this. Kirstin Og, RN * Telephone Encounter - Jose Miguel Herbert MD - 05/08/2023 11:17 PM EDT Let patient know his TSH is low compared to be normal last time but his T3 is still low like last time and this should make the TSH be elevated. The free T4 was ok again. Referral placed to see Endo. documented in this encounterPremier Health [facility]08-15-2023 Instructions* Patient Instructions* Chester Patel MD - 05/02/2023 4:56 PM EDT Start furosemide (Lasix) 20mg every day for 7 days, then take it as needed for swelling of the legs, shortness of breath or weight gain (2 lbs in 1 day or 4 lbs in 1 week). Please get blood work 1 week after you start this medication Let me know ho you are feeling in 2 weeks to see if we need to make any further changes to this regimen. Follow up in 1 month virtual visit with HF ANDREI and in 3 months in the amyloid clinic [facility] at [facility] documented in this encounterPremier Health [facility]08-15-2023 Miscellaneous Notes* Telephone Encounter - Cynthia Reese - 05/02/2023 7:18 AM EDT 05/03 appt canceled as requested * Telephone Encounter - Dina Tolentino RN - 05/01/2023 12:06 PM EDT Per phone encounter, Dr. Reyes would like to see patient tomorrow at 4 pm. A message was left forpatient to contact his office to confirm appointment. This nurse contacted patient and instructed him to check his VM and to call [facility] back to confirm appointment. Patient aware Dr. Reyes's office can give patient further instructions on how to get to their office. Patient stated he will call [facility] to confirm. PSS- can you cancel the cardiology appointment on Monday since patient is going to see cardiology tomorrow? Thank you. Dina Tolentino RN * Telephone Encounter - Jose Hugo DO - 04/27/2023 2:31 PM EDT Thank you. Jose Hugo DO * Telephone Encounter - Dina Tolentino RN - 04/27/2023 12:25 PM EDT Spoke to Ventura in Dr. Reyes's office and informed her of this patient and the situation. Ventura stated she will send a message to Dr. Reyes regarding the patient and when patient can be added onto his schedule. Ventura was given Dr. Hugo's cell # in case Dr. Reyes would like to discuss patient. Dina Tolentino RN * Telephone Encounter - Dina Tolentino RN - 04/27/2023 11:11 AM EDT CYCLE 1/DAY 1 POST TREATMENT CALL Today's date: April 27, 2023 Treatment Regimen: Rituxan/Velcade C1D1 Date: 04/26/2023 Called patient to follow-up on symptom management. Spoke with patient SYMPTOM ASSESSMENT Neuro: None CV/Resp: Denies chest pain/cough. Patient stated standing, walking, and going up and down stairs is difficult for him, he feels it in his legs, no chest symptoms. Patient stated if he has to walk somewhere its a big effort due to leg weakness. Patient stated he was contacted by his PCP yesterday stating he had an abnormal stress test and that they're trying to set him up with cardiology [facility] for an appointment to discuss a possible cardiac cath. Patient stated he is waiting for a call back from cardiology department. GI/: None Integument: None Activity: Patient reported no changes in energy Pain: No=0 (pain 0 on a scale of 0-10). Fever: No Chills: No Any new referrals needed? No Reinforced CURRENT treatment education based on current and anticipated symptoms. Discussed port/line care and patient verbalizes understanding: Not Applicable Patient instructed to contact office or after hours Hematology/Oncology fellow for: temperature ? 100.4; questions or concerns. Patient verbalized understanding of when to seek medical attention and after hours number protocol. Dina Tolentino RN documented in this encounterPremier [facility]08-14-2023 History of Present illness Narrative* Chester Patel MD - 05/01/2023 5:01 PM EDT Images from the original note were not included. 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 Patient has been experiencing progressive constitutional symptoms of muscle weakness/fatigue, metallic taste, malaise and hoarseness in the last 6 months. He was found to have renal dysfunction and workup for SINDI was significant for an IgM kappa monoclonal protein. K 947. L 199, K/L 15. 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 Kidney biopsy was done on 04/14/23 which showed [place] light chain amyloidosis extensively involving glomeruli, the tubulointerstitium and vessel cooper and Tubular atrophy and interstitial fibrosis, moderate to severe. NT pro BNP 9400 and HS OLAF 170 04/2023. Echocardiogram 03/27/23 demons trated preserved LV systolic function with moderate concentric LVH. Dr. Hugo started him on chemotherapy: Velcade, rituximab and dexamethasone. He was referred to Cardiology due to his persistent shortness of breath, fatigue, LE edema with concerns of cardiac involvement. He feels extreme fatigue. Feels that his legs are made of rubber and they limit his ambulaiton.He feels shortness of breath when he goes up stairs. Stopped execising in January because of being so tired. Has swelling in the legs. Early satiety, no abdominal bloating. Dizziness or lightheaded when he changes position. Denies any orthopnea, PND or bendopnea. Social: Never smoker, no EOTH Family: Father had a pacemkaer late in his life No CTS, spinal stenois, bicep tendon rupture, rotator cuff. He does have trigger finger of the right hand. NURSING INTAKE (Patient s concerns and/or recent hospitalizations/ER visits): Edgar Henderson is a 72 year old male from [place], [place] here for cardiac evaluation, abnormal stresstest. 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; Renal amyloidosis; SINDI (acute kidney injury) HF Nursing Assessment: Interim Hospitalizations and/or ER visits:no Chest Pain: no Skipping or irregular heartbeats: no Shortness of breath at rest: no Shortness of breath with activity: yes Cough: no Waking up in the middle of the night gasping for air: no Lightheadedness or dizziness: rare Feeling like you are going to pass out: no Actually passing out: 2006 or 2007 at work fainted and went to the ER Poor energy level: chronic exhaustion since beginning of the year Unintentional weight gain: no Unintentional weight loss: loss 10 lbs over 6 months Swelling in your legs,feet, abdomen: yes Filling up quickly when you eat: lacking appetite; quicker than he has 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 Internal hemorrhoids without mention of complication [place]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 Living will on file 01/27/2022 DPA: Bari Betancur (tip length checker) 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 Medicare annual wellness visit, subsequent 01/27/2022 Medicare Part B: 08/18/2017 Last done: 01/27/2022 PAST SURGICAL HISTORY Procedure Laterality Date COLONOSCOPY FLX DX W/COLLJ SPEC WHEN PFRMD 08/07/08 COLONOSCOPY FLX DX W/COLLJ SPEC WHEN PFRMD 06/07/2018 Colonoscopy RPR 1ST INGUN HRNA AGE 5 YRS/> REDUCIBLE Hernia repair, inguinal, bilateral SIGMOIDOSCOPY FLX DX W/COLLJ SPEC BR/WA IF PFRMD 2003 Sigmoidoscopy SOCIAL HISTORY Social History Tobacco Use Smoking status: Never Smokeless tobacco: Never Vaping Use Vaping Use: Never used Substance Use Topics Alcohol use: No Drug use: No FAMILY HISTORY Problem Relation Age of Onset Prostate Cancer Father Heart Father Pacemaker Cancer Father Hodgkin's lymphoma None Sister other (non hodgkins lymphoma) Sister Coronary Artery Disease No Family History ALLERGIES: ALLERGIES No Known Allergies CURRENT MEDICATIONS: acyclovir (ZOVIRAX) 200 mg capsule Take 1 capsule by mouth once daily. ondansetron (ZOFRAN) 8 mg tablet Take 1 tablet by mouth every 8 hours as needed (For chemotherapy induced nausea. Take 1 hour prior to treatment and then every 8 hours as needed for nausea.). omeprazole (PRILOSEC) 40 mg capsule Take 40 mg by mouth once daily. (Patient not taking: Reported on 05/02/2023) REVIEW OF SYSTEMS: CONSTITUTION: Positive for: Night sweats and Recent weight change Negative for: Fever slight moisture at night HEENT: Negative for: Hearing loss RESPIRATORY: Positive for: Difficulty breathing Negative for: Cough GASTROINTESTINAL: Negative for: Melena, Nausea, Diarrhea, Abdominal distention and Early satiety MUSCULOSKELETAL: Positive for: Myalgias Negative for: Arthralgias muscles feel weak escpially legs NEUROLOGICAL: Positive for: Dizziness Negative for: Headaches SKIN: Negative for: Rash EYES: Positive for: Visual disturbance glasses/contacts CARDIOVASCULAR: Positive for: Leg swelling Negative for: Chest pain, Arrhythmia and Pre-syncope GENITOURINARY: Negative for: Difficulty urinating PATIENT ENTERED DATA: No flowsheet data found. No flowsheet data found. No flowsheet data found. PHYSICAL EXAMINATION: BP 112/66 (BP Site: Right Arm, BP Position: Sitting, BP Cuff Size: Small Adult) Pulse 68 Ht 170.2 cm (5' 7) Wt 51.7 kg (114 lb) SpO2 99% BMI 17.85 kg/m General: Well appearing, in no acute distress. Skin: No clubbing, no cyanosis. Eyes: Extra ocular movements intact Oropharynx: Teeth in good repair. Neck: + jugular venous distention (JVP 22cmL5W), no carotid bruits, carotids have a normal upstroke, no palpable thyromegaly. Lungs: Clear to auscultation bilaterally, no wheezing or rhonchi. Heart: Regular rhythm, PMI not displaced, S1, S2 normal, no S3, no S4, no heaves, no rub and no murmur. Abdomen: Soft, nontender, bowel sounds normal, no palpable organomegaly, no bruits. Extremities: +1 LE b/l peripheral edema . Grade 2/4 distal pulses bilaterally. Neuro: Oriented to person, place and time, alert, cooperative, gait coordinated. CARDIOVASCULAR MEDICINE TESTING: I have personally reviewed the Electrocardiogram, Laboratory Testing, and Echocardiogram. Last CT Result Conclusion CT CHEST WO IVCON Exam End: 04/03/2023 3:59 PM (Final result) Impression: IMPRESSION: 1. No acute pathology 2. There is a 2 mm nodule in the anterior left upper lobe. There is a 5 x 3 mm nodule medial left lower lobe. 3. No thoracic lymphadenopathy Incidental Finding: Follow-up Acuity: Incidental Finding: Solid: <6 mm (solitary or multiple) Routing Code: N/A Recommendation: No imaging follow-up is recommended Time Frame: N/A Comments: If there are risk factors for lung malignancy, a follow-up chest CT exam could be obtained in 12 months Rn Sane: SHANIQUE Transcribe Date/Time: Apr 06 2023 12:15P Dictated by : LAURIE WOMACK MD This examination was interpreted and the report reviewed and electronically signed by: LAURIE WOMACK MD on Apr 06 2023 12:23PM EST Stress Test 04/19/2023 Echo 03/17/2023 IMPRESSION: NYHA Functional Class: III Stage: C heart failure Target weight: today, 114lbs -Acute on chronic HFrEF. Etiology: NICM. LVEF 65%, LVIDD 3.9cm, IVS 1.5cm, normal RV function. Ischemic evaluation: 04/19/23 EKG stress test wwas positive for exercise induced EKG ischemia but nehative for exercise induced chest pain. Patient did not reach 85% of MPHR Valvular disease: No significant valvular abnormalities. ICD: No indication Patient seems hypervolemic on exam. He is very symptomatic (c/o fatigue, tiredness, LE edema, FINNEGAN).The etiology of his cardiomyopathy is likely secondary to infiltrative CM (amyloid heart disease). NT pro BNP 9400 and HS OLAF 170 04/2023. EKG voltage seems out of proportion to LVH. Echocardiogram (per report) shows preserved LV systolic function with moderate concentric LVH (IVS 1.5cm). K 947. L 199, K/L 15, +M protein. 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 Kidney biopsy was done on 04/14/23 which showed [place] light chain amyloidosis extensively involving glomeruli, the tubulointerstitium and vessel cooper. I do not think we need any further testing (non-invasive; I.e cMRI or invasive; I.e EMBx) as I think there is enough evidence based on EKG, echocardiography, in the setting of having a positive kidney/BM biopsy. Hematology (Dr. Hugo) started on chemotherapy 04/2023. HF GDMT. Will hold off on initiation MRA or SGLT2i due to his renal dysfunction. As he is hypervolemic will start a loop diuretic as specified below. If needed in the future can explore doing a RHC to understand his hemodynamics and guide diuresis. -AL Amyloid ([place]) with renal and cardiac involvement. Quinteros stage III. On Velcade, rituximab and dexamethasone -Lymphoplasmacytic lymphoma -CKD 3-4 -BPH Heart Failure specific medications (list current, note updates or changes, note prior intolerance): BB: NA ACEI/ARB/ARNI: NA MRA: NA SGLT2: NA Diuretic: Start furosemide 20mg every day for 7 days and then as needed Digoxin: NA Vasodilators: NA Anti-arrhythmics: NA Ivabradine: NA Other anti-HTN: NA PLAN AND RECOMMENDATIONS: -HF labs -Echocardiogram -Follow up in 1 month with HF ANDREI and 2-3 months with me I personally interviewed, confirmed and edited the above information as obtained by others I personally spent 65 minutes in total time involved in the management and care of this patient. Wediscussed natural history of disease, current treatment options, and future potential treatment options. We discussed diet, exercise, other non-medical management as above. Chester Kwan MD [facility] Section Of Heart Failure and Cardiac Transplant Medicine [facility] [place] [facility] Desk [id number] [place] [address] documented in this encounterPremier Health [facility]08-14-2023 Miscellaneous Notes* Telephone Encounter - Ventura Jiang - 05/01/2023 9:18 AM EDT Called and left message that Dr Reyes would like to see him up here tomorrow at 4pm, requested elli to confirm this is OK and I will scheduled. documented in this encounterPremier Health [facility]08-10-2023 Miscellaneous Notes* Telephone Encounter - Roland Pendleton - 04/27/2023 1:41 PM EDT Appt. already scheduled, called and confirmed information with PT Roland Pendleton April 27, 2023 1:41 PM * Telephone Encounter - Gina Frausto RN - 04/27/2023 1:16 PM EDT That would be great!! Can you please call pt and offer him this appt/ schedule him? Thank you so much! Gina Frausto RN * Telephone Encounter - Gina Frausto RN - 04/27/2023 1:16 PM EDT Images from the original note were not included. Ashlie Mccall You; Shanon Noel RN 2 hours ago (10:35 AM) MS Mccormick could do 05/03 @ 4pm in [place] * Telephone Encounter - Gina Frausto RN - 04/27/2023 8:30 AM EDT AG, how far out are you scheduling for a consult for abnormal stress? Gina Frausto RN * Telephone Encounter - Viviane Duenas - 04/26/2023 5:23 PM EDT Pt transferred from PCP office needed to be scheduled [facility]. Tried several locations but nothing formonths. Would Dr. Mccormick or Alen be able to see pt or recommend someone who could see him quickly. documented in this encounterPremier Health [facility]08-09-2023 Miscellaneous Notes* Telephone Encounter - Frank Gonzáles RN - 04/26/2023 4:07 PM EDT Pt returned call and given provider's message below with verbalized understanding. Patient agreeable. Transferred to pss. * Telephone Encounter - Cathie Rubin MA - 04/26/2023 1:50 PM EDT When patient returns call please transfer to pharmacy scheduler to have appointment scheduled with Cardiology [facility] for a possibly heart cath. [facility]; [facility]. Cathie Rubin MA * Telephone Encounter - Cathie Rubin MA - 04/26/2023 1:07 PM EDT Left message for patient to contact office. Cathie Rubin MA; Contacted [facility] and they are scheduling out until the may due to Dr. Zepeda being out of the office. Cathie Rubin MA * Telephone Encounter - Jose Miguel Herbert MD - 04/26/2023 12:40 PM EDT Let patient know his stress test was abnormal and want him to see cardiology for potential cardiac cath. Ok to fax office note from 03/23/23 in provider not with [facility]. * Telephone Encounter - Cathie Rubin MA - 04/26/2023 12:13 PM EDT Scan on 04/21/2023 12:52 PM by Provider, KELBY Sesay: Stress Test Cathie Rubin MA documented in this encounterPremier Health [facility]08-09-2023 Miscellaneous Notes* Telephone Encounter - Enmanuel Alicia - 04/26/2023 9:31 AM EDT The patient is active with Medicare A & B along with MMO Medicare Supplement. Patient financialresponsibility is $0 for each treatment in 2022 since there is no OOP to be reached. I left a voicemail for the PT to return my call if they had further questions. documented in this encounterPremier Health [facility]08-07-2023 Miscellaneous Notes* Telephone Encounter - Rand Mora - 04/24/2023 10:56 AM EDT Updated notes * Telephone Encounter - Jose Hugo DO - 04/23/2023 2:40 PM EDT Add BNP and troponin T when has labs 04/26. Jose Hugo DO documented in this encounterPremier Health [facility]08-07-2023 Miscellaneous Notes* Telephone Encounter - Muriel Linares RN - 04/24/2023 9:08 AM EDT Spoke with patient, states understanding that ok to get his 2nd shingles and that there is a Rx forAcyclovir at pharmacy. Denies further questions. He states that he has not found a ride to treatment that start this week. States that he has discussed with social science professor, Denise and states she was worthless. Stating he is not able to find anything to help him. Patient instructed to call back in to office if unable to find a ride prior to start on 04/26/23. Call to Denise Wagoner, and aware of above. She gave patient several suggestions for transportation and she will reach back out to patient to follow up on ride situation. Magdalena Linares RN * Telephone Encounter - Jose Hugo DO - 04/21/2023 4:52 PM EDT Yes, but since he will be receiving bortezomib, he will need to take acyclovir. I will send the prescription on Monday so as not to confuse him. Jose Hugo DO * Telephone Encounter - Dina Tolentino RN - 04/21/2023 4:28 PM EDT Reviewed Yuliya with patient. Patient informed he will receive dexamethasone here in office. Patient aware he can go to his dental appointment on 05/02/23. Dr. Hugo- patient is asking if he can get his second shingles vaccine? Thank you. Dina Tolentino RN * Telephone Encounter - Dina Tolentino RN - 04/21/2023 4:26 PM EDT Child Welfare Manager Pre Chemo Patient identified by name and date of . YES Confirmed date and time for chemotherapy ? YES Other appointments (labs, imaging) discussed? YES Discussed where to park (occupational therapist assistant), charge for parking YES Discussed where to report (building/floor) YES Any pre-medications ordered? YES, will take zofran 1 hour prior to treatments Described the infusion room and what to expect. (What to wear, what to bring [iPad, books] amount of time treatment can take, meals and CC options for food) NO Note: Discussed whether the patient can eat prior to labs and treatment. YES Who is driving you to and from treatment? Looking for transportation Discussed why it is important to bring someone with you. No Resources discussed (music therapy, Art therapy, pet therapy, etc.) YES Education on chemotherapy (drug, side effects) discussed and that the patient will be receiving a C1D1 call within 7 days of treatment. YES Other topics discussed, interventions needed: Dina Tolentino RN * Telephone Encounter - Cynthia Reese - 04/21/2023 3:40 PM EDT Phone Visit scheduled with Kirstin West for Nutrition. Dina- patient states he received call from [facility] regarding medication. I informed him it was Zofran.He is asking if this needs to be picked up before treatment. Please advise. * Telephone Encounter - Cynthia Reese - 04/20/2023 3:44 PM EDT Schedule updated. Kirstin,do you want to see patient in office or virtual? * Telephone Encounter - Jose Hugo DO - 04/20/2023 3:41 PM EDT Thank you. Orders filed. I put in orders for oral dexamethasone when he is here for Velcade administration only on cycles 2, 3, 5 and beyond. He will be getting a lot of dexamethasone so he does not have to take dexamethasone at home on day 20 one of the Velcade only cycles. Jose Hugo DO * Telephone Encounter - Dina Tolentino RN - 04/20/2023 2:44 PM EDT Patient needs a nutrition consult. Patient stated he has had weight loss, taste changes specifically a metallic taste, and does not know how to cook for himself. Patient has zero support at home. Patient agreeable to nutrition consult. Order filed. Patient is very concerned with finding transportation weekly for the first month. SW informed and will see if there are transportation options for patient. Patient aware he should try to call us the day before his scheduled treatment if he is unable to secure a ride. Dr. Hugo: -Order filed for zofran. -Patient will be receiving decadron weekly with C1/C4. I do not see any decadron ordered for C2-3 with just velcade. Should he be receiving here or taking PO at home? Consistency will be st with this patient, he gets very overwhelmed. -Patient has a dentist appt on 05/02, 6 days after starting treatment. Can patient keep this appointment or should he cancel? PSS: Please schedule nutrition consult Patient will only be receiving rituxan D 1,8,15,22 for C1 and C4, velcade will be given every cycle. Please adjust schedule. Thank you. Dina Tolentino RN documented in this encounterPremier Health [facility]08-04-2023 Miscellaneous Notes* Telephone Encounter - Denise Wagoner LISW - 04/21/2023 3:31 PM EDT PSYCHOSOCIAL ASSESSMENT Date of Service: April 20, 2023 Edgar Henderson is a 72 year old male being seen for initial social work assessment. Diagnosis: Lymphoplasmacytic Lymphoma New Primary Oncologist: Jose Hugo DO Radiation Oncologist: PERRY Goals of Care: Palliative care Today's visit includes: self/patient Family History of Cancer: Father and Sibling(s) SUPPORT NETWORK: Marital status: Single Parent(s): Mother is and Father is Child/Children: No clinical care manager arrangements needed: Na Siblings: 1 sister () Grandchild(arian): none Home Health Provider: No Community Services: No Marta Identified: No Buddhist/Spirituality: Unknown Are these practices or beliefs that may affect or influence treatment? No EMPLOYMENT/FINANCIAL/HEALTH INSURANCE: Employment: Retired Income source: Social Security & Investments Insurance: Medicare with co-insurance Prescription coverage: Yes Is the patient appropriate for referral to [facility] Assistance program? No Financial Distress: No [place]: No FOOD INSECURITY Within the past year, have you worried about how you would buy or obtain food? No LIVING ARRANGEMENTS: Type: House- independent ranch Resides with: Alone FUNCTIONAL STATUS: Cognitive limitations: none Physical limitations: none Language barrier: No Hearing Impaired: No Speech Impaired: No Visual Impairments: No Special considerations/accommodations needed: Na HEALTH LITERACY: Do you have difficulty understanding medical instructions or other written materials you receive from you doctor or pharmacy? No Do have difficulty filling out medical forms by yourself? No The following interventions were put into place: NA MEDICATION ADHERENCE: Within the past 2 weeks, have you had difficulty remembering to take your medicine? No Within the past 2 weeks, did you ever miss taking your medications for reasons other than forgetting? No The following interventions were put into place: NA MENTAL HEALTH HISTORY: No History of combat/trauma: No Substance Use and Treatment History: denied History of Abuse: No Issues with: Sleep:No Eating:No Exercising: No Stress Management: No ADVANCE DIRECTIVES/LEGAL DOCUMENTS: Living Will: Yes Scanned into EPIC: Yes, 2021 Health Care Durable Power of Welding Machine Operator Friction: Yes Scanned into EPIC: Yes, 2021 Guardianship: No Scanned into EPIC:NA Reasons Advanced Directives were not Addressed: NA COPING STATUS: Coping Strengths: successful managing past crises self advocate strong problem-solving skills able to follow direction consistently over time able to communicate effectively Current affect/mood: flat History of Loss: Yes, parents and sister Adjustment to diagnosis: reflecting understanding, responding appropriately, and accepting help BARRIERS/CARE CHALLENGES: Limited support systems Are barriers/care challenges identified likely to have an impact on the patient's quality of life during treatment? No INTERVENTIONS/REFERRALS TO BE PROVIDED: Monitor patient response to treatment Communicate pertinent medical/psychosocial information to Cancer Center team Provide emotional support to patient/family Referral to community resource Continue follow up as needed Resources and Referrals: Internal: [facility] External: [facility] CLINICAL IMPRESSION: Edgar is a 72 year old male beginning treatment. He reports family cancer history with both his father and sister passing from lymphoma. He reports Dr. Hugo had stated he did not want pt driving self to first month of treatments d/t possible side-effects. Pt reports he has no family, friends, or anyone he can ask for assistance. Pt reports never , no children, and his only sibling has since passed. Pt very isolated. No connection to community groups or churches either. Pt reports that he is very self-sufficient and reports he has already done some research on [facility] transportation. SW and pt discussed the [employer] transit, [employer] taxi service. Pt reports he had pre viously posted a listing on [employer] asking for transportation which was successful. He reports he will attempt that again. Pt reported he will look into [employer] and other community transportation services as well. SW oriented pt to SW role and discussed available resources/community referrals if needed. Pt declined any needs at this time aside from transportation need. Pt is financially comfortable and reportsno concern affording upcoming treatments and office visits. SW discussed with pt the [employer] program with pt d/t no social support. Pt reports he will think about it but declined SW referring him at this time.Pt agreed to reach out to SW if needs arise. Psychosocial Risk Criteria If positive for one or more of the following risk criteria, follow up every 30 days Age: NA Mental Health: NA Practical Needs: N/A PLAN: SW to follow pt at upcoming appointments and remain in contact with pt throughout treatment to address any psychosocial concerns if needed. Follow up appointment with SW in: [facility] Farah-Blanche documented in this encounter[facility] Nurse Note* Dina Tolentino RN - 04/20/2023 4:45 PM EDT This visit was completed via telephone. Dina Tolentino RN * Dina Tolentino RN - 04/20/2023 4:42 PM EDT ONCOLOGY PATIENT EDUCATION NOTE TOPIC: Chemotherapy, Medications: Rituxan, Velcade READINESS TO LEARN: COGNITIVE ABILITY: Alert and oriented MOTIVATION TO LEARN: Interested FAMILY SUPPORT: Unable to assess - Family not present INSTRUCTION PROVIDED TO: Patient INSTRUCTION PROVIDED BY: Nurse Coordinator PATIENT LEARNS BEST BY: Multiple Methods FACTORS AFFECTING LEARNING: patient was anxious, stated he gets overwhelmed easy. No support systemat home. PHYSICAL LIMITATIONS AFFECTING LEARNING: None LEARNING RESPONSE DIAGNOSIS: Lymphoplasmacytic lymphoma METHOD OF INSTRUCTION: Individual instruction Written instruction - handouts Verbal instruction PATIENT/FAMILY RESPONSE: Verbalizes understanding of: CHEMOTHERAPY-Regimen, toxicity and side effects FOLLOW UP PLAN: Patient instructed to call with any further issues Recommend - Recommend continued instruction and follow up as directed Follow up phone call. Contact information given. SUPPLEMENTAL MATERIAL: Written material was provided at this visit with the following information: - Chemotherapy education was provided by a pharmacist NO - Side effect management information was provided/discussed including but not limited to: abdominaldiscomfort, anemia, appetite changes, arthralgia, diet, electrolyte disturbances, fatigue, infection, nausea/vomitting, neutropenia, peripheral neuropathy, skin changes, taste changes, thrombocytopenia YES - Provided important phone numbers and contacts during and after hours. YES - Provided information on symptoms that require immediate assistance. YES - Provided Chemotherapy when to call handouts YES - Preventing infection. YES - Treatment schedule and confirmation of appointment times. YES - Available support groups. YES - The importance of contraception during the course of chemotherapy YES - Neutropenic fever protocol discussed with patient, which included the importance of reporting anyfever of 100.4F (38.0C) or greater to the healthcare team as noted on the provided wallet card and/or magnet. YES Mentioned that his legs feel rubbery at baseline x 1 year. Patient has a metallic taste in his mouth, fatigue is 10/10 on some days. Needs help with nutrition, I can't even boil an egg. Patient agreeable to nutrition consult. Transportation concerns-messaged SW. Time Spent: 70 minutes REFERRAL (RECOMMENDATION): Nutrition and Social Work Dina Tolentino RN documented in this encounterPrem[facility]08-03-2023 Miscellaneous Notes* Telephone Encounter - Cynthia Reese - 04/20/2023 8:52 AM EDT C1 and 2 scheduled. Start email sent. * Telephone Encounter - Naa Randle - 04/19/2023 4:40 PM EDT Check out comments: Start treatment AVI next week. Will need CBC/CMP/LDH/MM labs (no urines) with D1. D8, 15, 21 will need only a CBC. OV with Dr. Hugo with same labs as D1 for cycle 2. Chemo Ed and Day 1 scheduled. Naa Randle documented in this encounterPrem[facility]08-02-2023 Miscellaneous Notes* Telephone Encounter - Dina Tolentino RN - 04/19/2023 4:45 PM EDT Met with patient and introduced myself. Patient was given a My Journey binder with chemocare information, office contact information, thermometer, and additional chemotherapy resource booklets. Patient aware this nurse will review on scheduled appointment date. Dina Tolentino RN documented in this encounterPrem[facility]08-02-2023 History of Present illness Narrative* Jose Hugo DO - 04/19/2023 3:59 PM EDT Diagnosis: 1) IgM kappa HPI: The patient is a 72 yo male with a PMH significant for BPH. Had labs 03/17/2023 for upcoming annual appointment with Dr. Herbert. Per Dr. Herbert's recent eveluation: Patient ws recently sent to [facility] due to SINDI. BUN was 47 and Crewas 2.47 with potassium of 5.3. patient used Excedrin on occasion, maybe a few times a month if that. Denies chronic NSAID use. EKG in ER showed ST-T wave changes in the lateral leads. 2D echo was unremarkable with normal LV size, mod concentric VH, systolic function was normal with an EF of 65%, mild diastolic dysfunction. His Trop level was elevated but since the echo was ok. No further cardiacw/u was pursued. An US of the kidnies and bladder showed possible chronic kidney disease, no hydronephrosis. Chest x-ray was normal. Patient was not started on any medications to go home on. He has an appt tomorrow with renal. CBC showed WBC normal at 6.8, Hg slightly low at 12.5, MCV was normal. Differential was unremarkable. Sodium, potassium, LFT's and TSH were al ok. Patient has been experiencing fatigue over the last 6 months. Also noticed a changed in his voice in the past 6 months off and on with hoarseness. Food has been tasting metalic Very Dry mouth. Has to take sips of water to help food go down. No N/V, diarrhea, hematochezia or melena. Eating less; no appetite. Has lost approx 10 lbs in past 1-2 months. Urination increased but always feeling thristy Swelling in both ankles and legs since maybe the beginning of this past year. Increased SOB and muscle fatigue No chest pain Stopped exercising in January due to fatigue and weakness. In October while he was swimming he felt like he was swimming in molasses. No shortness of breath. Denied chest heaviness, tightness or palpitations. Echo at [facility]: Interpretation Summary Normal LV size. Moderate concentric left ventricular hypertrophy. Left ventricular systolic function is normal. The estimated ejection fraction is 65 %. Stage 1 diastolic dysfunction. Pulmonary artery systolic pressure is 28 mmHg. Contrast injection was performed. Gets hungry, but due to metallic taste and malaise, didn't feel like preparing much. Presents for ongoing oncologic management. Interim history: Her today to review bone marrow biopsy and kidney biopsy. No subjective change--fatigued and decreased appetite. Denies symptoms of sensory neuropathy. Dyspnea with exertion, but no cardiac symptoms per se. No chronic cough. 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 Internal hemorrhoids without mention of complication Living will on file 01/27/2022 DPA: Bari Betancur (tip length checker) Medicare annual wellness visit, subsequent 01/27/2022 Medicare Part B: 08/18/2017 Last done: 01/27/2022 PAST SURGICAL HISTORY Procedure Laterality Date COLONOSCOPY FLX DX W/COLLJ SPEC WHEN PFRMD 08/07/08 COLONOSCOPY FLX DX W/COLLJ SPEC WHEN PFRMD 06/07/2018 Colonoscopy RPR 1ST INGUN HRNA AGE 5 YRS/> REDUCIBLE Hernia repair, inguinal, bilateral SIGMOIDOSCOPY FLX DX W/COLLJ SPEC BR/WA IF PFRMD 2002 Sigmoidoscopy ALLERGIES No Known Allergies Current Outpatient Medications Medication Sig omeprazole (PRILOSEC) 40 mg capsule Take 40 mg by mouth once daily. No current facility-administered medications for this visit. Social History Tobacco Use Smoking status: Never Smokeless tobacco: Never Vaping Use Vaping Use: Never used Substance Use Topics Alcohol use: No Drug use: No Not . No children. Family History Problem Relation Age of Onset Prostate Cancer Father Heart Father Pacemaker Cancer Father Hodgkin's lymphoma None Sister Cancer Sister lymphoma Coronary Artery Disease No Family History ROS: Constitutional: No fever. No drenching night sweats. Normal appetite. Neuro: No recent SELF. Tends to get dizzy if stands a while. No symptoms of sensory neuropathy. No cognitive changes that he's aware of. HEENT: No recent change in vision or hearing. Resp: No cough, wheeze or hemoptysis. No shortness of breath at rest. CVS: No exertional chest pain, PND or orthopnea. No symptoms of claudication. No painful or tender varicose veins. GI: No dysphagia or odynophagia. No reflux, n/v, change in bowel habits (no diarrhea). No abdominalpain, bloating or distension. No black or bloody stools. : No dysuria or gross hematuria. Doesn't feel he voids to completion. One episode nocturia. Endo: No hot flashes. Cold intolerance. Musculoskeletal: No bone, back, joint and muscular pain. Derm: No current rash. No history of jaundice. No diffuse pruritis. Heme: No unusual bleeding and unexplained bruising. Psych: Normal mood. PHYSICAL EXAM: Vitals: Blood pressure 115/72, pulse 77, temperature 36.4 C (97.5 F), weight 53.1 kg (117 lb), EaM120 %. Thin and pale-appearing and in no acute distress. EYES: Sclerae are anicteric bilaterally. ENT: Oral mucosa is unremarkable. There is no sign of thrush or mucositis. LYMPHATIC: There is no palpable cervical, supraclavicular, axillary or inguinal adenopathy. RESPIRATORY: Inspiratory breath sounds are of normal intensity in all muñoz. No rales, wheezes or rhonchi. CARDIOVASCULAR: Rhythm is regular. Soft systolic murmur. ABDOMEN: The abdomen is nondistended. No splenomegaly or hepatomegaly. No tenderness. Extremities: Mild edema right ankle. SKIN: No jaundice or rash. No petechiae. NEUROLOGIC: tire adjuster II-XII are grossly intact. No focal motor weakness. MUSCULOSKELETAL: No joint swelling or tenderness. Mild muscle wasting. LABORATORY DATA: Component Latest Ref Rng & Units 03/27/2023 WBC 3.70 - 11.00 k/uL 7.31 RBC 4.20 - 6.00 m/uL 3.78 (L) Hemoglobin 13.0 - 17.0 g/dL 12.4 (L) Hematocrit 39.0 - 51.0 % 38.8 (L) MCV 80.0 - 100.0 fL 102.6 (H) MCH 26.0 - 34.0 pg 32.8 MCHC 30.5 - 36.0 g/dL 32.0 RDW-CV 11.5 - 15.0 % 14.4 Platelet Count 150 - 400 k/uL 263 MPV 9.0 - 12.7 fL 11.0 Neut% % 55.2 Abs Neut (ANC) 1.45 - 7.50 k/uL 4.03 Lymph% % 34.3 Abs Lymph 1.00 - 4.00 k/uL 2.51 [place]% % 7.5 Abs [place] <0.87 k/uL 0.55 Eosin% % 1.9 Abs Eosin <0.46 k/uL 0.14 Baso% % 1.0 Abs Baso <0.11 k/uL 0.07 Immature Gran % % 0.1 IMMATURE GRANS (ABS) <0.10 k/uL <0.03 NRBC /100 WBC 0.0 Absolute nRBC <0.01 k/uL <0.01 DTYPE Auto c-ANCA Fluorescence Negative Negative p-ANCA Fluorescence Negative Negative Interpretation (ANCA) Negative for C-ANCA and P-ANCA by indirect immunofluorescence. Staff Review (ANCA) Reviewed by Ariel Bailon, Ph.D D([facility]) Iron 41 - 186 ug/dL 101 TIBC 232 - 386 ug/dL 233 Transferrin Saturation 15.0 - 57.0 % 43.3 PT Sec 9.7 - 13.0 sec 10.3 PT INR 0.9 - 1.3 1.0 Vitamin B12 232 - 1,245 pg/mL 554 TSH 0.270 - 4.200 mIU/L 3.180 WSR 0 - 15 mm/hr 58 (H) CK 51 - 298 U/L 135 DNA Antibody <30 IU/mL <12 C3 86 - 166 mg/dL 125 Myeloperoxidase <470 pmol/L 435 Proteinase 3 Antibody <1.0 AI <0.2 C4 13 - 46 mg/dL 15 APTT, Heparinase 23.0 - 32.4 sec 25.4 Component Latest Ref Rng & Units 07/10/2015 08/09/2016 05/11/2018 06/28/2019 07/02/2020/03/27/2023 Protein, Total 6.3 - 8.0 g/dL 6.9 7.0 6.7 6.7 6.4 5.9 (L) Albumin 3.9 - 4.9 g/dL 4.1 4.1 4.4 4.4 3.6 (L) 3.3 (L) Calcium 8.5 - 10.2 mg/dL 9.5 9.4 9.3 9.5 9.3 9.6 9.7 9.4 Bilirubin, Total 0.2 - 1.3 mg/dL 1.0 0.8 0.8 0.7 0.4 0.5 Alkaline Phosphatase 38 - 113 U/L 63 65 61 58 97 93 AST 14 - 40 U/L 18 22 21 25 30 23 Glucose 74 - 99 mg/dL 83 69 (L) 80 85 81 93 85 109 (H) BUN 9 - 24 mg/dL 13 15 15 13 16 20 47 (H) 42 (H) Creatinine 0.73 - 1.22 mg/dL 0.97 0.95 0.97 0.94 0.90 1.18 2.47 (H) 2.40 (H) Sodium 136 - 144 mmol/L 140 140 140 139 138 138 139 137 Potassium 3.7 - 5.1 mmol/L 4.2 4.1 4.1 4.0 3.9 5.0 5.3 (H) 4.3 Chloride 97 - 105 mmol/L 99 98 98 99 100 99 101 100 CO2 22 - 30 mmol/L 28 27 25 28 30 28 24 25 Anion Gap 9 - 18 mmol/L 13 15 17 12 8 (L) 11 14 12 ALT 10 - 54 U/L 13 13 14 16 24 19 eGFR- >60 >60 >60 >60 >60 eGFR-All Other Races . >60 >60 >60 >60 >60 eGFR >=60 mL/min/1.73m 67 27 (L) 28 (L) Component Latest Ref Rng & Units 03/27/2023 Albumin 3.43 - 5.41 g/dL 3.01 (L) Alpha 1 Globulin 0.18 - 0.43 g/dL 0.35 Alpha 2 Globulin 0.42 - 0.98 g/dL 0.90 Beta Globulin 0.61 - 1.17 g/dL 1.19 (H) Gamma Globulin 0.53 - 1.51 g/dL 0.35 (L) Interpretation (Prot Electro) No definitive M protein is identified on protein electrophoresis. An M protein is identified on protein electrophoresis. (A) Interpretation Comment for Protein Electrophoresis See separate immunofixation report for characterization of monoclonal gammopathy. M-Protein Location Beta Fraction 1 M-Protein Concentration <=0.00 g/dL 0.60 (H) SPE Staff Review Reviewed by Devora Cifuentes M.D., Ph.D Component Latest Ref Rng & Units 03/27/2023 MPA Result No M protein is identified. M protein is present. (A) Interpretation (MPA) Atypical restricted bands are present in the IgM and kappa regions. Consistentwith IgM kappa monoclonal gammopathy. Staff Review (MPA) Reviewed by Devora Cifuentes M.D., Ph.D Component Latest Ref Rng & Units 03/16/2023 Color Yellow Light Yellow Clarity Clear Clear Glucose, Urine Trace, Negative Negative Bilirubin, Urine Negative Negative Ketones, Urine Trace, Negative Negative Specific P[place]um, Ur 1.005 - 1.030 1.011 Hemoglobin/Blood,Ur Negative, Trace Negative pH, Urine 5.0 - 8.0 6.5 Protein, Urine Trace, Negative 2+ (A) Urobilinogen Negative Negative Nitrites Negative Negative Leukest Negative, 25 Kelsi/uL Negative WBC, Urine 0-5 /HPF 0-5 /HPF RBC, Urine 0-3 /HPF 0-3 /HPF Epithelial Cells /HPF Few Hyaline Cast 0 /LPF 1-3 /LPF (A) PATHOLOGY: Bone marrow biopsy 04/11/2023: A-C. 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 - Hypercellular bone marrow (60-70%) with maturing trilineage hematopoiesis. - Increased storage iron. - Positive for amyloid deposition (numerous blood vessels, Congo red stain confirmatory). - See comment. 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 Left kidney biopsy 04/14/2023: A. [facility] [place] left kidney biopsy: - [place] light chain amyloidosis extensively involving glomeruli, the tubulointerstitium and vessel cooper. - Tubular atrophy and interstitial fibrosis, moderate to severe. Light microscopy shows prominent amyloid accumulation within glomeruli, vessel cooper and in a patchy distribution in the tubulointerstitium. Immunofluorescence shows strong staining for kappa and essentially negative staining for the remaining tested reactants. Electron microscopy confirms the presence of 8 to 10 nm fibrosis characteristic of amyloidosis. 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 CARDIOLOGY: Echocardiogram 03/17/2023 done at [facility] demonstrated normal LV size with moderate concentric left ventricular hypertrophy and left ventricular systolic function normal with estimated ejection fraction 65%. Stage I diastolic dysfunction was observed. Pulmonary artery systolic pressure estimated at 28 mmHg. Echocardiogram same day demonstrated normal sinus rhythm with incomplete right bundle branch block ST and T wave abnormality, consider lateral ischemia, prolonged QT. Exercise stress test at [facility] 04/19/2023: Impression: 1. Inability to reach 85% of maximal age-predicted heart rate decreases the sensitivity of this test exercise tolerance test 2. Stress test is positive for exercise-induced EKG changes of ischemia. However the specificity ofthis finding is decreased because of baseline ST-T changes 3. The test test is negative for exercise-induced chest pain 4. Functional capacity is decreased for age 5. Nuclear images pending Myocardial perfusion imaging study: Technique: The patient was injected with 11.1 mCi of technetium 99m Cardiolite and subsequently rest SPECT Cardiolite nuclear imaging was obtained in the horizontal long, vertical long, and short axis views. The patient exercised on a Adria protocol. Please see above for details. The patient was injected with33.3 mCi of technetium 99m Cardiolite and subsequently stress SPECT Cardiolite nuclear imaging was obtained in the horizontal long, vertical long, and short axis views. A gated Cardiolite study at peak stress was obtained. Interpretation: Rest and stress SPECT Cardiolite nuclear imaging status post realignment, normalization, and attenuation correction, demonstrates mild decrease in the radioisotope uptake in the inferior wall prior to attenuation correction. After attenuation correction there is normal myocardial radioisotope uptake overall. These findings are suggestive of diaphragmatic attenuation artifact. The gated Cardiolitestudy demonstrates no significant regional wall motion abnormalities. The reported LVEF is 56%. Impression: 1. There is no definite evidence of ischemia. Please see the EKG portion of the test above as well.The sensitivity of this test is decreased because of inability to reach 85% of maximal age-predicted heart rate. 2. The gated Cardiolite study reports an LVEF of 56%. 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 Over the last several months prior to presentation he had been experiencing progressive constitutional symptoms of muscle weakness/fatigue, metallic taste, malaise and hoarseness. He was found to have kidney azotemia. -Work-up for SINDI significant for IgM kappa monoclonal protein. He had no diarrhea. No symptoms of sensory neuropathy. -CTs 04/06/2023 Two small pulmonary nodules. No adenopathy or splenomegaly. -I reviewed the results of the bone marrow biopsy as well as the kidney biopsy with him in detail. I discussed the natural history, treated course, and prognosis of lymphoplasmacytic lymphoma. Explained the process of amyloidosis caused by the deposition of kappa light chain and the indication for treating lymphoma with the goal of preserving or potentially improving renal function and potentially preventing any other endorgan damage. He understands the lymphoma is noncurable but potentially treatable with the goal of care being that mentions above. I recommended treatment with Velcade, rituximab and dexamethasone. Also discussed the rationale, logistics, potential risks (including but not limited to infusion reaction/cytokine release side effects, cytopenias, nausea and vomiting, injection site reaction, hyperglycemia, rash, infectious complications and the small potential for asa consequence of severe toxicity/complications of therapy), benefits and alternatives, as well as the personnel involved in the administration of rituximab, bortezomib and dexamethasone. I answered his questions in detail and he verbalized understanding and agreed with the recommended therapy. Please see the electronic consent document for details of doses and schedule. Plan: -Chemotherapy education. -Begin therapy as soon as able. -CBC/CMP/LDH/MM labs (no urines) with D1. -D8, 15, 21 will need only a CBC. -OV/CBC/CMP/LDH/Myeloma labs/24 hour urine M-spike for cycle #2. -Will receive oral dexamethasone with each treatment. -Check BNP and troponin T. -Cardiology evaluation--?cardiac MRI. -Follow up with nephology for management of CKD. Portions of this documentation were copied and pasted from previous office visit notes in order to provide a cohesive continuity of the history. The note has been reviewed and edited and updated as necessary. I spent a total of 45 minutes on the date of the service which included preparing to see the patient, [id number] patient care, completing clinical documentation, obtaining and/or reviewing separately obtained history, performing a medically appropriate examination, counseling and educating the pat ient/family/caregiver, ordering medications, tests, or procedures, and communicating results to thepatient/family/caregiver. Jose Hugo DO documented in this encounterPrem[facility]08-02-2023 Miscellaneous Notes* Telephone Encounter - Cynthia Reese - 04/19/2023 11:43 AM EDT Message relayed to patient. He will be here for appt this afternoon * Telephone Encounter - Cass Jacobs LPN - 04/19/2023 11:19 AM EDT Second message left for patient to contact office. Cass Jacobs LPN * Telephone Encounter - Cass Jacobs LPN - 04/19/2023 8:47 AM EDT Left detailed message asking patient to contact the office. LOUISA has already scheduled patient for an OV today at 4:00. Cass Jacobs LPN * Telephone Encounter - Jose Hugo DO - 04/18/2023 7:40 PM EDT Please let him know results of bone marrow and kidney biopsy available. Need to start him on therapy AVI. Double book him tomorrow at 4 pm. No labs. Jose Hugo DO documented in this encounterPremier [facility]08-01-2023 History of Present illness Narrative* Margie Reyes RT(R) - 04/18/2023 9:20 AM EDT Radiology Service Progress Note PATIENT NAME: Edgar Henderson DATE OF SERVICE: April 18, 2023 TIME: 9:35 AM PATIENT IDENTITY VERIFICATION COMPLETED USING TWO (2) IDENTIFIERS: Name and Date of confirmedby patient verbally. FALL SCREENING: Has the patient had 2 falls in the last year or 1 fall with injury or currently using an Ambulatory Assistive Device (Walker, Cane, Wheelchair, Crutches, etc.)? No PATIENT GENDER DATA: Male PATIENT RELEVANT IMPLANT DATA REVIEWED: Yes RADIOLOGY DEPARTMENT: CT; Exam(s) Completed: Abdomen/Pelvis PERIPHERAL IV DATA: Not applicable SIGNED BY: RT Sky(R) April 18, 2023 9:35 AM documented in this encounterPremier Health [facility]07-28-2023 NoteHNO ID: [id number] Author: Kati Gilbert RN Service: ? Author Type: Registered Nurse Type: Nursing Progress Note Filed: 04/14/2023 11:01 AM Note Text: Pt refusing IV due to refusing IV sedation.[facility] 04-10-2023 History of Present illness Narrative* Cathie Rubin MA - 04/10/2023 2:58 PM EDT Scan on 04/10/2023 11:05 AM by Provider, KELBY Sesay: Miscellaneous Lab Cathie Rubin MA documented in this encounterPremier Health [facility]07-20-2023 History of Present illness Narrative* Jose Hugo DO - 04/06/2023 9:30 AM EDT Patient referred by Dr. Fall for IgM kappa monoclonal protein. The impression and plan will be communicated by way of the shared electronic record or faxed under separate cover letter. HPI: The patient is a 72 yo male with a PMH significant for BPH. Has labs 03/17 for upcoming annual appointment with Dr. Herbert. Per Dr. Herbert's recent eveluation: Patient ws recently sent to [facility] due to SINDI. BUN was 47 and Crewas 2.47 with potassium of 5.3. patient used Excedrin on occasion, maybe a few times a month if that. Denies chronic NSAID use. EKG in ER showed ST-T wave changes in the lateral leads. 2D echo was unremarkable with normal LV size, mod concentric VH, systolic function was normal with an EF of 65%, mild diastolic dysfunction. His Trop level was elevated but since the echo was ok. No further cardiacw/u was pursued. An US of the kidnies and bladder showed possible chronic kidney disease, no hydronephrosis. Chest x-ray was normal. Patient was not started on any medications to go home on. He has an appt tomorrow with renal. CBC showed WBC normal at 6.8, Hg slightly low at 12.5, MCV was normal. Differential was unremarkable. Sodium, potassium, LFT's and TSH were al ok. Patient has been experiencing fatigue over the last 6 months. Also noticed a changed in his voice in the past 6 months off and on with hoarseness. Food has been tasting metalic Very Dry mouth. Has to take sips of water to help food go down. No N/V, diarrhea, hematochezia or melena. Eating less; no appetite. Has lost approx 10 lbs in past 1-2 months. Urination increased but always feeling thristy Swelling in both ankles and legs since maybe the beginning of this past year. Increased SOB and muscle fatigue No chest pain Stopped exercising in January due to fatigue and weakness. In October while he was swimming he felt like he was swimming in molasses. No shortness of breath. Denied chest heaviness, tightness or palpitations. Echo at [facility]: Interpretation Summary Normal LV size. Moderate concentric left ventricular hypertrophy. Left ventricular systolic function is normal. The estimated ejection fraction is 65 %. Stage 1 diastolic dysfunction. Pulmonary artery systolic pressure is 28 mmHg. Contrast injection was performed. Gets hungry, but due to metallic taste and malaise, didn't feel like preparing much. 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 Internal hemorrhoids without mention of complication Living will on file 01/27/2022 DPA: Bari Betancur (tip length checker) Medicare annual wellness visit, subsequent 01/27/2022 Medicare Part B: 08/18/2017 Last done: 01/27/2022 PAST SURGICAL HISTORY Procedure Laterality Date COLONOSCOPY FLX DX W/COLLJ SPEC WHEN PFRMD 08/07/08 COLONOSCOPY FLX DX W/COLLJ SPEC WHEN PFRMD 06/07/2018 Colonoscopy RPR 1ST INGUN HRNA AGE 7 YRS/> REDUCIBLE Hernia repair, inguinal, bilateral SIGMOIDOSCOPY FLX DX W/COLLJ SPEC BR/WA IF PFRMD 2002 Sigmoidoscopy ALLERGIES No Known Allergies No current outpatient medications on file. No current facility-administered medications for this visit. Social History Tobacco Use Smoking status: Never Smokeless tobacco: Never Substance Use Topics Alcohol use: No Drug use: No Not . No children. Family History Problem Relation Age of Onset Prostate Cancer Father Heart Father Pacemaker Cancer Father Hodgkin's lymphoma None Sister Cancer Sister lymphoma Coronary Artery Disease No Family History ROS: Constitutional: No fever. No drenching night sweats. Normal appetite. Neuro: No recent SELF. Tends to get dizzy if stands a while. No symptoms of sensory neuropathy. No cognitive changes that he's aware of. HEENT: No recent change in vision or hearing. Resp: No cough, wheeze or hemoptysis. No shortness of breath at rest. CVS: No exertional chest pain, PND or orthopnea. No symptoms of claudication. No painful or tender varicose veins. GI: No dysphagia or odynophagia. No reflux, n/v, change in bowel habits (no diarrhea). No abdominalpain, bloating or distension. No black or bloody stools. : No dysuria or gross hematuria. Doesn't feel he voids to completion. One episode nocturia. Endo: No hot flashes. Cold intolerance. Musculoskeletal: No bone, back, joint and muscular pain. Derm: No current rash. No history of jaundice. No diffuse pruritis. Heme: No unusual bleeding and unexplained bruising. Psych: Normal mood. PHYSICAL EXAM: Vitals: Blood pressure (!) 89/48, pulse (!) 56, temperature 36.2 C (97.2 F), temperature source Temporal, height 170 cm (5' 6.93), weight 52.2 kg (115 lb), SpO2 100 %. Then and pale-appearing and in no acute distress. EYES: Sclerae are anicteric bilaterally. ENT: Oral mucosa is unremarkable. There is no sign of thrush or mucositis. LYMPHATIC: There is no palpable cervical, supraclavicular, axillary or inguinal adenopathy. RESPIRATORY: Inspiratory breath sounds are of normal intensity in all muñoz. No rales, wheezes or rhonchi. CARDIOVASCULAR: Rhythm is regular. Soft systolic murmur. ABDOMEN: The abdomen is nondistended. No splenomegaly or hepatomegaly. No tenderness. Extremities: Mild edema right ankle. SKIN: No jaundice or rash. No petechiae. NEUROLOGIC: tire adjuster II-XII are grossly intact. No focal motor weakness. MUSCULOSKELETAL: No joint swelling or tenderness. Mild muscle wasting. LABORATORY DATA: Component Latest Ref Rng & Units 03/27/2023 WBC 3.70 - 11.00 k/uL 7.31 RBC 4.20 - 6.00 m/uL 3.78 (L) Hemoglobin 13.0 - 17.0 g/dL 12.4 (L) Hematocrit 39.0 - 51.0 % 38.8 (L) MCV 80.0 - 100.0 fL 102.6 (H) MCH 26.0 - 34.0 pg 32.8 MCHC 30.5 - 36.0 g/dL 32.0 RDW-CV 11.5 - 15.0 % 14.4 Platelet Count 150 - 400 k/uL 263 MPV 9.0 - 12.7 fL 11.0 Neut% % 55.2 Abs Neut (ANC) 1.45 - 7.50 k/uL 4.03 Lymph% % 34.3 Abs Lymph 1.00 - 4.00 k/uL 2.51 [place]% % 7.5 Abs [place] <0.87 k/uL 0.55 Eosin% % 1.9 Abs Eosin <0.46 k/uL 0.14 Baso% % 1.0 Abs Baso <0.11 k/uL 0.07 Immature Gran % % 0.1 IMMATURE GRANS (ABS) <0.10 k/uL <0.03 NRBC /100 WBC 0.0 Absolute nRBC <0.01 k/uL <0.01 DTYPE Auto c-ANCA Fluorescence Negative Negative p-ANCA Fluorescence Negative Negative Interpretation (ANCA) Negative for C-ANCA and P-ANCA by indirect immunofluorescence. Staff Review (ANCA) Reviewed by Ariel Bailon, Ph.D D(ABMLI) Iron 41 - 186 ug/dL 101 TIBC 232 - 386 ug/dL 233 Transferrin Saturation 15.0 - 57.0 % 43.3 PT Sec 9.7 - 13.0 sec 10.3 PT INR 0.9 - 1.3 1.0 Vitamin B12 232 - 1,245 pg/mL 554 TSH 0.270 - 4.200 mIU/L 3.180 WSR 0 - 15 mm/hr 58 (H) CK 51 - 298 U/L 135 DNA Antibody <30 IU/mL <12 C3 86 - 166 mg/dL 125 Myeloperoxidase <470 pmol/L 435 Proteinase 3 Antibody <1.0 AI <0.2 C4 13 - 46 mg/dL 15 APTT, Heparinase 23.0 - 32.4 sec 25.4 Component Latest Ref Rng & Units 07/10/2015 08/09/2016 05/11/2018 06/28/2019 07/02/202003/27/2023 Protein, Total 6.3 - 8.0 g/dL 6.9 7.0 6.7 6.7 6.4 5.9 (L) Albumin 3.9 - 4.9 g/dL 4.1 4.1 4.4 4.4 3.6 (L) 3.3 (L) Calcium 8.5 - 10.2 mg/dL 9.5 9.4 9.3 9.5 9.3 9.6 9.7 9.4 Bilirubin, Total 0.2 - 1.3 mg/dL 1.0 0.8 0.8 0.7 0.4 0.5 Alkaline Phosphatase 38 - 113 U/L 63 65 61 58 97 93 AST 14 - 40 U/L 18 22 21 25 30 23 Glucose 74 - 99 mg/dL 83 69 (L) 80 85 81 93 85 109 (H) BUN 9 - 24 mg/dL 13 15 15 13 16 20 47 (H) 42 (H) Creatinine 0.73 - 1.22 mg/dL 0.97 0.95 0.97 0.94 0.90 1.18 2.47 (H) 2.40 (H) Sodium 136 - 144 mmol/L 140 140 140 139 138 138 139 137 Potassium 3.7 - 5.1 mmol/L 4.2 4.1 4.1 4.0 3.9 5.0 5.3 (H) 4.3 Chloride 97 - 105 mmol/L 99 98 98 99 100 99 101 100 CO2 22 - 30 mmol/L 28 27 25 28 30 28 24 25 Anion Gap 9 - 18 mmol/L 13 15 17 12 8 (L) 11 14 12 ALT 10 - 54 U/L 13 13 14 16 24 19 eGFR- >60 >60 >60 >60 >60 eGFR-All Other Races . >60 >60 >60 >60 >60 eGFR >=60 mL/min/1.73m 67 27 (L) 28 (L) Component Latest Ref Rng & Units 03/27/2023 Albumin 3.43 - 5.41 g/dL 3.01 (L) Alpha 1 Globulin 0.18 - 0.43 g/dL 0.35 Alpha 2 Globulin 0.42 - 0.98 g/dL 0.90 Beta Globulin 0.61 - 1.17 g/dL 1.19 (H) Gamma Globulin 0.53 - 1.51 g/dL 0.35 (L) Interpretation (Prot Electro) No definitive M protein is identified on protein electrophoresis. An M protein is identified on protein electrophoresis. (A) Interpretation Comment for Protein Electrophoresis See separate immunofixation report for characterization of monoclonal gammopathy. M-Protein Location Beta Fraction 1 M-Protein Concentration <=0.00 g/dL 0.60 (H) SPE Staff Review Reviewed by Devora Cifuentes M.D., Ph.D Component Latest Ref Rng & Units 03/27/2023 MPA Result No M protein is identified. M protein is present. (A) Interpretation (MPA) Atypical restricted bands are present in the IgM and kappa regions. Consistentwith IgM kappa monoclonal gammopathy. Staff Review (MPA) Reviewed by Devora Cifuentes M.D., Ph.D Component Latest Ref Rng & Units 03/16/2023 Color Yellow Light Yellow Clarity Clear Clear Glucose, Urine Trace, Negative Negative Bilirubin, Urine Negative Negative Ketones, Urine Trace, Negative Negative Specific Purdum, Ur 1.005 - 1.030 1.011 Hemoglobin/Blood,Ur Negative, Trace Negative pH, Urine 5.0 - 8.0 6.5 Protein, Urine Trace, Negative 2+ (A) Urobilinogen Negative Negative Nitrites Negative Negative Leukest Negative, 25 Kelsi/uL Negative WBC, Urine 0-5 /HPF 0-5 /HPF RBC, Urine 0-3 /HPF 0-3 /HPF Epithelial Cells /HPF Few Hyaline Cast 0 /LPF 1-3 /LPF (A) ASSESSMENT/PLAN: (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 Over the last several months he has been experiencing progressive constitutional symptoms of muscle weakness/fatigue, metallic taste, malaise and hoarseness. He was found to have kidney dysfunction. -Work-up for SINDI significant for IgM kappa monoclonal protein. He has no diarrhea. No symptoms of sensory neuropathy. -No risk factors for HIV. -Personally reviewed CT chest images with him. Official radiology read not yet rendered. No obviousmediastinal adenopathy. Lung windows show no obvious mass. -I reviewed with him the spectrum of diseases associated with IgM monoclonal protein including IgM MGUS as well as lymphoplasmacytic lymphoma and other related issues such as cryoglobulinemia/vasculitis and neuropathy. Discussed work-up including bone marrow biopsy. Plan: -Labs today. -24-hour urine collection for electrophoresis and immunofixation. -Bone marrow biopsy next Monday. -CT abdomen pelvis. -He will contact Dr. Tucker's office to see when kidney biopsy scheduled. -Office visit 2 to 3 weeks following biopsy. -In the meantime follow-up with PCP and Dr. Tucker for monitoring of renal function. I spent a total of 75 minutes on the date of the service which included preparing to see the patient, [id number] patient care, completing clinical documentation, obtaining and/or reviewing separately obtained history, performing a medically appropriate examination, counseling and educating the pat ient/family/caregiver, ordering medications, tests, or procedures, communicating with other HCPs (not separately reported), independently interpreting results (not separately reported), communicatingresults to the patient/family/caregiver, and care coordination (not separately reported). Jose Hugo DO documented in [facility]Prem[facility] History of Present illness Narrative* Cynthia Petersen, RT(R) - 04/06/2023 8:30 AM EDT Radiology Service Progress Note PATIENT NAME: Edgar Henderson DATE OF SERVICE: April 06, 2023 TIME: 9:18 AM PATIENT IDENTITY VERIFICATION COMPLETED USING TWO (2) IDENTIFIERS: Name and Date of confirmedby patient verbally. FALL SCREENING: Has the patient had 2 falls in the last year or 1 fall with injury or currently using an Ambulatory Assistive Device (Walker, Cane, Wheelchair, Crutches, etc.)? No PATIENT GENDER DATA: Male PATIENT RELEVANT IMPLANT DATA REVIEWED: Not Applicable RADIOLOGY DEPARTMENT: General X-ray: Exam(s) Completed: Bone Survey PERIPHERAL IV DATA: Not applicable SIGNED BY: RT Osei(R) April 06, 2023 9:18 AM documented in this encounterPremier [facility]07-19-2023 Miscellaneous Notes* Telephone Encounter - Kirstin Og RN - 04/05/2023 4:56 PM EDT Pt called and is notified of providers results and instructions. Pt voices understanding. Pt will get Folate done when he goes to see Dr Hugo tomorrow. Faxed stress test orders, demographics, and last OV to [facility] scheduling at fax # [phone]. Kirstin Og RN * Telephone Encounter - Gricel Bruno LPN - 04/05/2023 12:05 PM EDT Spoke with pt. States he is getting ready to go to an appointment to have his throat examined. He will call back later this afternoon to review results. Please see dr Herbert's message below. Gricel Bruno LPN * Telephone Encounter - Jose Miguel Herbert MD - 04/04/2023 4:33 PM EDT Let patient know the muscle enzyme lab, B12, electrolytes, liver functions, iron studies, Lyme's disease test was neg. The CRP, BRITTNEE and Rheumatoid factor tests for inflammation were negative. The ESR which is a very non-specific inflammatory test was positive and this may be due to his kidney issue. CBC shows his anemia is slightly better. Needs a Folate level. Order placed. TSH and Free T4 were ok for his thyroid labs but the Free T3 was low. Will place order to have thyroid functions rechecked yelena month. Kidney functions are stable. Studies for heavy metals were negative. His breathing studies were normal. Us of abdomen was ok except for changes in his kidneys which he is seeing renal for. documented in this encounterPrem[facility]07-19-2023 Miscellaneous Notes* Telephone Encounter - Rand Mora - 04/05/2023 10:06 AM EDT Pt scheduled as directed * Telephone Encounter - Sarah Duran LPN - 04/05/2023 8:37 AM EDT Spoke with pt. Given information concerning labs and OV tomorrow.PSS please put on schedule.OV tomorrow at 9:30 am. Come at 8:30 for labs/x-ray. Sarah Duran LPN * Telephone Encounter - Jose Hugo DO - 04/05/2023 8:15 AM EDT OV tomorrow at 9:30 am. Come at 8:30 for labs/x-ray. Jose Hugo DO * Telephone Encounter - Jose Miguel Herbert MD - 04/04/2023 9:59 AM EDT Patient recently seen by renal for renal failure and proteinuria. Serum Protein electrophoresis andImmunofixation studies was positive for M protein. Dr. Tucker plans on doing a renal biopsy but hasasked for assistance to get patient into Hematology [facility]. Order placed. Component Latest Ref Rng & Units 03/27/2023 Albumin 3.43 - 5.41 g/dL 3.01 (L) Alpha 1 Globulin 0.18 - 0.43 g/dL 0.35 Alpha 2 Globulin 0.42 - 0.98 g/dL 0.90 Beta Globulin 0.61 - 1.17 g/dL 1.19 (H) Gamma Globulin 0.53 - 1.51 g/dL 0.35 (L) Interpretation (Prot Electro) No definitive M protein is identified on protein electrophoresis. An M protein is identified on protein electrophoresis. (A) Interpretation Comment for Protein Electrophoresis See separate immunofixation report for characterization of monoclonal gammopathy. M-Protein Location Beta Fraction 1 M-Protein Concentration <=0.00 g/dL 0.60 (H) SPE Staff Review Reviewed by Devora Cifuentes M.D., Ph.D MPA Result No M protein is identified. M protein is present. (A) Interpretation (MPA) Atypical restricted bands are present in the IgM and kappa regions. Consistentwith IgM kappa monoclonal gammopathy. Staff Review (MPA) Reviewed by Devora Cifuentes M.D., Ph.D documented in this encounterPrem[facility]07-17-[facility] History of Present illness Narrative* Margie Reyes RT(R) - 04/03/2023 3:40 PM EDT Radiology Service Progress Note PATIENT NAME: Edgar Henderson DATE OF SERVICE: April 03, 2023 TIME: 3:52 PM PATIENT IDENTITY VERIFICATION COMPLETED USING TWO (2) IDENTIFIERS: Name and Date of confirmedby patient verbally. FALL SCREENING: Has the patient had 2 falls in the last year or 1 fall with injury or currently using an Ambulatory Assistive Device (Walker, Cane, Wheelchair, Crutches, etc.)? No PATIENT GENDER DATA: Male PATIENT RELEVANT IMPLANT DATA REVIEWED: Yes RADIOLOGY DEPARTMENT: CT; Exam(s) Completed: Chest PERIPHERAL IV DATA: Not applicable SIGNED BY: RT Sky(R) April 03, 2023 3:52 PM documented in this encounterPrem[facility]07-17-[facility]23 History of Present illness Narrative* Nathalie Lopez RPFT - 04/03/2023 1:04 PM EDT PULM FUNCTION SMARTBLOCK: Provider: Jose Miguel Herbert MD Assisting Tech: Nathalie Lopez RPFT Spirometry w/BD: 1 documented in this encounterPremier [facility]07-13-[facility]23 History of Present illness Narrative* Swathi Saldivar RDMS - 03/30/2023 11:30 AM EDT Radiology Service Progress Note PATIENT NAME: Edgar Henderson DATE OF SERVICE: March 30, 2023 TIME: 2:19 PM PATIENT IDENTITY VERIFICATION COMPLETED USING TWO (2) IDENTIFIERS: Name and Date of confirmedby patient verbally. FALL SCREENING: Has the patient had 2 falls in the last year or 1 fall with injury or currently using an Ambulatory Assistive Device (Walker, Cane, Wheelchair, Crutches, etc.)? No PATIENT GENDER DATA: Male PATIENT RELEVANT IMPLANT DATA REVIEWED: Not Applicable RADIOLOGY DEPARTMENT: Ultrasound PERIPHERAL IV DATA: Not applicable SIGNED BY: Swathi Saldivar RDMS March 30, 2023 2:19 PM documented in this encounterPrem[facility] History of Past illness Narrative* Problem Noted Date Diagnosed Date Resolved Date Fatigue 03/23/2023 05/27/2023 documented as of this encounter (statuses as of 05/27/2023) [facility] of Past illness Narrative* Problem Noted Date Diagnosed Date Resolved Date Fatigue 03/23/2023 05/27/2023 documented as of this encounter (statuses as of 05/30/2023) [address]06-2023 History of Past illness Narrative* Problem Noted Date Diagnosed Date Resolved Date Fatigue 03/23/2023 05/27/2023 documented as of this encounter (statuses as of 05/31/2023) [facility] of Past illness Narrative* Problem Noted Date Diagnosed Date Resolved Date Fatigue 03/23/2023 05/27/2023 documented as of this encounter (statuses as of 05/31/2023) [address]06-2023 History of Past illness Narrative* Problem Noted Date Diagnosed Date Resolved Date Fatigue 03/23/2023 05/27/2023 documented as of this encounter (statuses as of 05/31/2023) [facility] of Past illness Narrative* Problem Noted Date Diagnosed Date Resolved Date Fatigue 03/23/2023 05/27/2023 documented as of this encounter (statuses as of 06/01/2023) [facility] of Past illness Narrative* Problem Noted Date Diagnosed Date Resolved Date Fatigue 03/23/2023 05/27/2023 documented as of this encounter (statuses as of 06/03/2023) [facility] of Past illness Narrative* Problem Noted Date Diagnosed Date Resolved Date Fatigue 03/23/2023 05/27/2023 documented as of this encounter (statuses as of 06/07/2023) [facility] of Past illness Narrative* Problem Noted Date Diagnosed Date Resolved Date Fatigue 03/23/2023 05/27/2023 documented as of this encounter (statuses as of 06/07/2023) [facility] illness Narrative* Problem Noted Date Diagnosed Date Resolved Date Fatigue 03/23/2023 05/27/2023 documented as of this encounter (statuses as of 06/24/2023) [facility] of Past illness Narrative* Problem Noted Date Diagnosed Date Resolved Date Fatigue 03/23/2023 05/27/2023 documented as of this encounter (statuses as of 06/28/2023) [facility] of Past illness Narrative* Problem Noted Date Diagnosed Date Resolved Date Fatigue 03/23/2023 05/27/2023 documented as of this encounter (statuses as of 06/28/2023) [facility] illness Narrative* Problem Noted Date Diagnosed Date Resolved Date Fatigue 03/23/2023 05/27/2023 documented as of this encounter (statuses as of 06/28/2023) [facility] Narrative* Problem Noted Date Diagnosed Date Resolved Date Fatigue 03/23/2023 05/27/2023 documented as of this encounter (statuses as of 07/18/2023) [address]06-2023 History of Past illness Narrative* Problem Noted Date Diagnosed Date Resolved Date Fatigue 03/23/2023 05/27/2023 documented as of this encounter (statuses as of 07/19/2023) [address]06-[address]23 History of Past illness Narrative* Problem Noted Date Diagnosed Date Resolved Date Fatigue 03/23/2023 05/27/2023 documented as of this encounter (statuses as of 07/23/2023) [address]06-2023 History of Past illness Narrative* Problem Noted Date Diagnosed Date Resolved Date Fatigue 03/23/2023 05/27/2023 documented as of this encounter (statuses as of 07/23/2023) [address]06-2023 History of Past illness Narrative* Problem Noted Date Diagnosed Date Resolved Date Fatigue 03/23/2023 05/27/2023 documented as of this encounter (statuses as of 07/23/2023) [address]23 History of Past illness Narrative* Problem Noted Date Diagnosed Date Resolved Date Fatigue 03/23/2023 05/27/2023 documented as of this encounter (statuses as of 07/23/2023) [facility] Narrative* Problem Noted Date Diagnosed Date Resolved Date Fatigue 03/23/2023 05/27/2023 documented as of this encounter (statuses as of 07/23/2023) [address]06-[address]23 History of Past illness Narrative* Problem Noted Date Diagnosed Date Resolved Date Fatigue 03/23/2023 05/27/2023 documented as of this encounter (statuses as of 07/26/2023) [address]06-2023 History of Past illness Narrative* Problem Noted Date Diagnosed Date Resolved Date Fatigue 03/23/2023 05/27/2023 documented as of this encounter (statuses as of 07/27/2023) [address]06-2023 History of Past illness Narrative* Problem Noted Date Diagnosed Date Resolved Date Fatigue 03/23/2023 05/27/2023 documented as of this encounter (statuses as of 08/01/2023) [address]06-2023 History of Past illness Narrative* Problem Noted Date Diagnosed Date Resolved Date Fatigue 03/23/2023 05/27/2023 documented as of this encounter (statuses as of 08/01/2023) [address]06-2023 History of Past illness Narrative* Problem Noted Date Diagnosed Date Resolved Date Fatigue 03/23/2023 05/27/2023 documented as of this encounter (statuses as of 08/02/2023) [address]06-2023 History of Past illness Narrative* Problem Noted Date Diagnosed Date Resolved Date Fatigue 03/23/2023 05/27/2023 documented as of this encounter (statuses as of 08/08/2023) [address]06-2023 History of Past illness Narrative* Problem Noted Date Diagnosed Date Resolved Date Fatigue 03/23/2023 05/27/2023 documented as of this encounter (statuses as of 08/15/2023) [address]06-[address]23 History of Past illness Narrative* Problem Noted Date Diagnosed Date Resolved Date Fatigue 03/23/2023 05/27/2023 documented as of this encounter (statuses as of 08/16/2023) [address]06-[address]23 History of Past illness Narrative* Problem Noted Date Diagnosed Date Resolved Date Fatigue 03/23/2023 05/27/2023 documented as of this encounter (statuses as of 08/18/2023) [facility] Narrative* Problem Noted Date Diagnosed Date Resolved Date Fatigue 03/23/2023 05/27/2023 documented as of this encounter (statuses as of 08/22/2023) [address]06-[address]23 History of Past illness Narrative* Problem Noted Date Diagnosed Date Resolved Date Fatigue 03/23/2023 05/27/2023 documented as of this encounter (statuses as of 08/22/2023) [address]06-2023 History of Past illness Narrative* Problem Noted Date Diagnosed Date Resolved Date Fatigue 03/23/2023 05/27/2023 documented as of this encounter (statuses as of 08/23/2023) [address]06-[address]23 History of Past illness Narrative* Problem Noted Date Diagnosed Date Resolved Date Fatigue 03/23/2023 05/27/2023 documented as of this encounter (statuses as of 08/25/2023) [facility] Narrative* Problem Noted Date Diagnosed Date Resolved Date Fatigue 03/23/2023 05/27/2023 documented as of this encounter (statuses as of 08/25/2023) [facility] Narrative* Problem Noted Date Diagnosed Date Resolved Date Fatigue 03/23/2023 05/27/2023 documented as of this encounter (statuses as of 09/02/2023) [facility] of Present illness Narrative* Jose Miguel Herbert MD - 03/23/2023 1:36 PM EDT Chief Complaint Patient presents with: Hospital F/U HPI Edgar Henderson is a 72 year old male who presents here today for hospital follow up. Patient ws recently sent to [facility] due to SINDI. BUN was 47 and Cre was 2.47 with potassium of 5.3. patient used Excedrin on occasion, maybe a few times a month if that. Denies chronic NSAID use. EKG in ER showed ST-T wave changes in the lateral leads. 2D echo was unremarkable with normal LV size, mod concentric VH, systolic function was normal with an EF of 65%, mild diastolic dysfunction. His Trop level was elevated but since the echo was ok. No further cardiac w/u was pursued. An US of the kidnies and bladder showed possible chronic kidney disease, no hydronephrosis. Chest x-ray was normal. Patient was not started on any medications to go home on. He has an appt tomorrow with renal. CBC showed WBC normal at 6.8, Hg slightly low at 12.5, MCV was normal. Differential was unremarkable. Sodium, potassium, LFT's and TSH were al ok. Patient has been experiencing fatigue over the last 6 months. Also noticed a changed in his voice in the past 6 months off and on with hoarseness. Food has been tasting metalic Very Dry mouth. Has to take sips of water to help food go down. No N/V, diarrhea, hematochezia or melena. Eating less; no appetite. Has lost approx 10 lbs in past 1-2 months. Urination increased but always feeling thristy Swelling in both ankles and legs since maybe the beginning of this past year. Increased SOB and muscle fatigue No chest pain Stopped exercising in January due to fatigue and weakness. In October while he was swimming he felt like he was swimming in [place]. No shortness of breath. Denied chest heaviness, tightness or palpitations. Not aware of any tick bites. Denies eye drooping with reading. Not sexually active. Last time was well over 30 years. In the past 6 months has noted he can no longer ejaculate. Past medical history, appointments, medications, allergies reviewed. 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 Internal hemorrhoids without mention of complication Living will on file 01/27/2022 DPA: Bari Betancur (tip length checker) Medicare annual wellness visit, subsequent 01/27/2022 Medicare Part B: 08/18/2017 Last done: 01/27/2022 Previous Surgical History PAST SURGICAL HISTORY Procedure Laterality Date COLONOSCOPY FLX DX W/COLLJ SPEC WHEN PFRMD 08/07/08 COLONOSCOPY FLX DX W/COLLJ SPEC WHEN PFRMD 06/07/2018 Colonoscopy RPR 1ST INGUN HRNA AGE 5 YRS/> REDUCIBLE Hernia repair, inguinal, bilateral SIGMOIDOSCOPY FLX DX W/COLLJ SPEC BR/WA IF PFRMD 2002 Sigmoidoscopy Family History FAMILY HISTORY Problem Relation Age of Onset Prostate Cancer Father Heart Father Pacemaker None Sister Cancer Father Hodgkin's lymphoma Cancer Sister lymphoma Patient Allergies ALLERGIES No Known Allergies Current Medications Current Outpatient Medications on File Prior to Visit Medication Sig EXCEDRIN 250 MG-250 MG-65 MG ORAL TAB as necessary No current facility-administered medications on file prior to visit. Social History Social History Tobacco Use Smoking status: Never Smokeless tobacco: Never Substance Use Topics Alcohol use: No Drug use: No Review of Symptoms REVIEW OF SYSTEMS See HPI EXAM: BP 92/62 (BP Site: Right Arm, BP Position: Sitting, BP Cuff Size: Regular Adult) Pulse 72 Resp 16 Wt 52.6 kg (116 lb) BMI 18.17 kg/m Last 10 Encounter BP Readings: Date: BP: 03/23/2023 92/62 01/27/2022 134/74 07/13/2020 150/70 07/09/2020 130/73 07/04/2019 137/69 06/28/2018 115/68 05/22/2018 108/65 05/18/2018 130/72 08/19/2016 126/70 07/16/2015 130/80 Last 10 Encounter Wt Readings: Date: Wt: 03/23/2023 52.6 kg (116 lb) 01/27/2022 54.9 kg (121 lb) 07/13/2020 57.2 kg (126 lb) 07/09/2020 56.7 kg (125 lb) 07/04/2019 57.6 kg (127 lb) 06/28/2018 57.6 kg (127 lb) 05/22/2018 58.6 kg (129 lb 3 oz) 05/18/2018 58.6 kg (129 lb 3.2 oz) 08/19/2016 59.9 kg (132 lb) 07/16/2015 59 kg (130 lb) General Appearance: Well appearing, alert, in no acute distress, well-hydrated, well nourished. andThin. Eyes: Anicteric sclera. Pupils are equally round and reactive to light. Extraocular movements are intact. . Oropharynx: Lips, mucosa, normal, teeth and gums normal, oropharynx normal. Tongue with light freeman to central black in the posterior 1/2. Neck: Supple, no adenopathy; thyroid symmetric, normal size, no bruits. Lungs: Lungs clear to auscultation. No wheezing, rhonchi, rales.. Heart: RRR without murmur, gallop, or rubs. No ectopy. Abdomen: Normal abdominal exam, Abdomen soft, non-tender. Bowel sounds normal. No masses, organomegaly. Extremities: No deformities,skin discoloration, Good capillary refill. There is very mild pitting on the left lower 1/3 of left and 1+ pitting on the lower 1/3 of the right leg. Musculoskeletal: Spine range of motion normal. Muscular strength intact and symmetrical in the upper extremities. 4/5 in the right lower extremity and 3-4/5 in the left lower extremity, No joint swelling, deformity, or tenderness. Peripheral Pulses: Normal. Neurologic: Gait normal. Reflexes normal and symmetric. Sensation to light touch symmetrical and intact.. Health Maintenance List SHINGRIX VACCINE(2 of 3) due on 07/11/2013 DTAP,TDAP,TD(2 - Td or Tdap) due on 05/13/2020 COVID-19 VACCINE(3 - Booster for Elida series) due on 09/16/2021 ADVANCE DIRECTIVE DISCUSSION due on 09/18/2022 DEPRESSION ASSESSMENT Never done INFLUENZA(1) due on 05/19/2023 DIABETES SCREEN due on 03/16/2026 LIPID SCREEN due on 03/16/2028 COLORECTAL CANCER SCREENING due on 06/07/2028 PNEUMOCOCCAL: 65+ Completed HEPATITIS C SCREENING Discontinued Data reviewed A/P ASSESSMENT/PLAN: 1. Unintended weight loss - ICD9: 783.21, ICD10: R63.4 (primary diagnosis) check - TSH BLD - CBC + DIFF - LYME AB LATE >30 DAYS SYMPTOMS - HEAVY METALS SCRN BL - CT CHEST WO IVCON - US ABDOMEN COMPLETE - COMP METABOLIC PANEL - T3 FREE BLD - T4 FREE/FREE THYROX 2. Fatigue, unspecified type - ICD9: 780.79, ICD10: R53.83 Check - VITAMIN B12 BLOOD - TSH BLD - CBC + DIFF - LYME AB LATE >30 DAYS SYMPTOMS - HEAVY METALS SCRN BL - IRON + TIBC - CT CHEST WO IVCON - US ABDOMEN COMPLETE - COMP METABOLIC PANEL - T3 FREE BLD - T4 FREE/FREE THYROX 3. SINDI (acute kidney injury) (HCC) - ICD9: 584.9, ICD10: N17.9 check - CBC + DIFF - HEAVY METALS SCRN BL - patient to keep appt with renal. 4. Anemia, unspecified type - ICD9: 285.9, ICD10: D64.9 Check - VITAMIN B12 BLOOD - CBC + DIFF - HEAVY METALS SCRN BL - IRON + TIBC 5. Decreased stamina - ICD9: 780.79, ICD10: R53.83 Check - TSH BLD - NM CARDIAC PERF STRESS/PHARM - REGADENOSON 0.4 MG/5 ML INTRAVENOUS SYRINGE - INSERT IV ([place]) - IV DISCONTINUE - HEAVY METALS SCRN BL - IRON + TIBC - CT CHEST WO IVCON - US ABDOMEN COMPLETE - COMP METABOLIC PANEL - T3 FREE BLD - T4 FREE/FREE THYROX 6. Elevated troponin level - ICD9: 790.6, ICD10: R77.8 Check - NM CARDIAC PERF STRESS/PHARM - REGADENOSON 0.4 MG/5 ML INTRAVENOUS SYRINGE - INSERT IV ([place]) - IV DISCONTINUE 7. Nonspecific ST-T wave electrocardiographic changes - ICD9: 794.31, ICD10: R94.31 Check - NM CARDIAC PERF STRESS/PHARM - REGADENOSON 0.4 MG/5 ML INTRAVENOUS SYRINGE - INSERT IV ([place]) - IV DISCONTINUE 8. Hoarseness of voice - ICD9: 784.42, ICD10: R49.0 Check - TSH BLD - T3 FREE BLD - T4 FREE/FREE THYROX - CONSULT TO ENT: Dr. Fay 9. Black hairy tongue - ICD9: 529.3, ICD10: K14.3 Check - CBC + DIFF - COMP METABOLIC PANEL - CONSULT TO ENT: Dr. Fay 10. Altered taste - ICD9: 781.1, ICD10: R43.2 Check - VITAMIN B12 BLOOD - TSH BLD - CBC + DIFF - HEAVY METALS SCRN BL - IRON + TIBC - COMP METABOLIC PANEL - T3 FREE BLD - T4 FREE/FREE THYROX - CONSULT TO ENT 11. Bilateral leg edema - ICD9: 782.3, ICD10: R60.0 Check - TSH BLD - T3 FREE BLD - T4 FREE/FREE THYROX 12. SOB (shortness of breath) - ICD9: 786.05, ICD10: R06.02 Check - LYME AB LATE >30 DAYS SYMPTOMS - SPIROMETRY - BASELINE AND POST DILATOR - NM CARDIAC PERF STRESS/PHARM - REGADENOSON 0.4 MG/5 ML INTRAVENOUS SYRINGE - INSERT IV ([place]) - IV DISCONTINUE - HEAVY METALS SCRN BL - IRON + TIBC - CT CHEST WO IVCON 13. Lack of appetite - ICD9: 783.0, ICD10: R63.0 Check - VITAMIN B12 BLOOD - HEAVY METALS SCRN BL - IRON + TIBC - CT CHEST WO IVCON - US ABDOMEN COMPLETE - COMP METABOLIC PANEL - T3 FREE BLD - T4 FREE/FREE THYROX 14. Generalized weakness - ICD9: 780.79, ICD10: R53.1 Check - C-REACTIVE PROTEIN (CRP) - BRITTNEE BY IFA SCREEN - RHEUMATOID FACTOR BL - SED RATE WESTERGREN - CK CREATINE KINASE Recent chest x-ray at [facility] was normal. F/u in 4 weeks medicare wellness I spent a total of 52 minutes on the date of the service which included preparing to see the patient, [id number] patient care, completing clinical documentation, performing a medically appropriate examination, counseling and educating the patient/family/caregiver and ordering medications, tests, or procedures. Jose Miguel Herbert MD [facility] Discharge summary Author Jonathan Fernando [facility] March 18, 2023 11:43am Note Date/Time March 18, 2023 11:06 am [facility] Medical Records Department [address] [place] [address] Discharge Summary 03/18/23 1106 MR#: [id number] Acct: [id number] Name: EDGAR HENDERSON Rep #:[id number] : 1950 72 From: Jonathan Fernando DO PCP: Dr. Jose Miguel Herbert MD Status:ADM IN Location: [place] [address] Providers Date of Admission: 03/17/23 Date of Discharge: 03/18/23 Primary Care Physician: Dr. Jose Miguel Herbert MD Reason For Visit: SINDI, ELEVATED TROPONIN Diagnosis Discharge Diagnosis (1) Creatinine elevation: Status: Acute Code(s): R79.89 - Other specified abnormal findings of blood chemistry Plan 1. Creatinine elevation-etiology unclear, #2 elevated troponin-etiology unclear, non-STEMI was ruled out #3 proteinuria-etiology unclear Total clinical time spent by myself addressing the patient's medical issues, reviewing all of his data, and collaborating with patient's care team: 55 minutes Hospital Course Operations None Procedures 2-D Echocardiogram and - (Renal ultrasound) Summary of Care Provided Minutes Spent on Discharge: 30 Hospital Course: This 72-year-old white male was seen in the emergency room at [facility] after he came there for evaluation at the direction of his PCP due to an elevated creatinine the patient had as an outpatient several days prior. Patient had labs done for his routine yearly office visit and it was noted that his creatinine was elevated and he had a mild elevation of his potassium. Work-up in the emergency room showed the patient's creatinine to be elevated, his last known creatinine was approximately 13 months ago and his creatinine was 1.18, his creatinine in the emergency room was 2.44. Patient's creatinine earlier in the week which was drawn as an outpatient was 2.47 with a BUN of 47. Patient's potassium was slightly low at 5.3 as an outpatient, his potassium in the emergency room was unremarkable. Patient had troponin also drawn, this was elevated. Patient had an EKG which showed nonspecific ST-T wave changes in the lateral wall leads, patient had no complaints of any chest discomfort, he had complaints of generalized fatigue that had occurred over the last 1 to 2 months however. Patient was admitted to PCU, an echocardiogram was performed which showed no abnormalities. Cardiac enzymes were cycled, they were all elevated tothe same extent which was detected in the emergency room, the etiology of this troponin elevation was unknown and not felt to be a non-STEMI. Patient was given IV fluids and labs were drawn the next day, his creatinine was marginally improved at 2.21. I had an informal discussion with nephrology by phone (Dr. Freeman) he agreed to see the patient in follow-up and would contact the patient next week for an appointment. He requested that a protein creatinine ratio be obtained on the urine. Nephrology did not feel the patient needed a CT scan of the kidneys, ultrasound the kidneys and bladder was performed which showed evidence of echogenicity in the kidneys questioning possible chronic kidney disease. There was no evidence of hydronephrosis. On 03/18/2023, patient was seen and examined: On examination he appeared in good health and spirits. Vital signs as documented. Skin warm and dry and without overt rashes. Neck without JVD, neck was supple, trachea midline, thyroid was normal. Lungs clear bilaterally, normal air movement was noted. Heart exam notable for regular rhythm, normal sounds and absence of murmurs, rubs or gallops. Abdomen unremarkable and without evidence of organomegaly, masses, or abdominal aortic enlargement. Bowel sounds are present, abdomen is not distended. Extremities nonedematous, no cyanosis was noted, no clubbing was noted. Neuro: Cranial nerves II through XII are grossly intact, no focal motor deficits were noted, sensation to light touch and pinprick intact, motor exam 5/5 throughout. Psych: Patient is alert and oriented x3, he does not appear anxious or depressed, he does not appear agitated. Patient appeared stable for discharge on 03/18/2023, his condition did not warrantcontinuing hospitalization at this time. Weight / BMI Weight Weight: 52.4 kg Body Mass Index (BMI) 17.5 ABG / Lab / Microbiology Data 03/17/23 11:30 03/18/23 05:35 Laboratory: Laboratory Results - last 24 hr 03/17/23 11:30: WBC 6.8, RBC 3.82 L, Hgb 12.5 L, Hct 37.7 L, MCV 98.7 H, MCH 32.7 H, MCHC 33.2, RDW Std Deviation 50.1 H, RDW Coeff of Zachary 13.8, Plt Count 271, MPV 9.7, Immature Gran % (Auto) 0.300, Neut % (Auto) 56.1, Lymph % (Auto) 31.5, [place] % (Auto) 9.9, Eos % (Auto) 1.3, Baso % (Auto) 0.9, Absolute Neuts (auto) 3.8, Absolute Lymphs (auto) 2.13, Nucleated RBC % 0, Sodium 139, Potassium 4.2, Chloride 106, Carbon Dioxide 27.0, Anion Gap 6, BUN 44 H, Creatinine 2.44 H, Estim Creat Clear Calc 20.80, Est GFR (MDRD) Af Amer 34 L, Est GFR (MDRD) Non-Af 28 L, BUN/Creatinine Ratio 18.0, Glucose 129 H, Calcium 8.9, Total Bilirubin 0.40, AST 33, ALT 28, Alkaline Phosphatase 93, Troponin I High Sens 153 H*, Total Protein 6.4, Albumin 2.7 L, Globulin 3.7, Albumin/Globulin Ratio 0.7 L, TSH 3.58 03/17/23 16:07: Troponin I High Sens 139 H* 03/17/23 17:36: Troponin I High Sens 153 H* 03/17/23 : Urine Color Yellow, Urine Clarity Clear, Urine pH 6.5, Ur Specific [place] 1.010, Urine Protein 100 H, Urine Glucose (UA) Normal, Urine Ketones Negative, Urine Occult Blood 25 H, Urine Nitrite Negative, Urine Bilirubin Negative, Urine Urobilinogen Normal, Ur Leukocyte Esterase Negative, Urine RBC 0SEEN, Urine WBC 0 SEEN, Ur Squamous Epith Cells 0 SEEN, Urine Bacteria 0 SEEN, Urine Mucus 0 SEEN 03/18/23 05:35: Sodium 141, Potassium 4.2, Chloride 110 H, Carbon Dioxide 26.0, Anion Gap 5, BUN 43 H, Creatinine 2.21 H, Estim Creat Clear Calc 23.05, Est GFR (MDRD) Af Amer 38 L, Est GFR (MDRD) Non-Af 31 L, BUN/Creatinine Ratio 19.5, Glucose 100, Calcium 8.1 L Radiography Diagnostic Testing: Radiology Impression Chest X-Ray 03/17/23 11:35 IMPRESSION: No radiographic evidence of acute cardiopulmonary disease. Electronically Signed: Navarro Donnelly MD at 12:19 EDT , Echocardiogram 03/17/23 13:23 Interpretation Summary Normal LV size. Moderate concentric left ventricular hypertrophy. Left ventricular systolic function is normal. The estimated ejection fraction is 65 %. Stage 1 diastolic dysfunction. Pulmonary artery systolic pressure is 28 mmHg. Contrast injection was performed. Ordering Physician: Jonathan Fernando Referring Physician: JONATHAN ESTRADA Performed By: Sybil Siu RCS Renal Ultrasound 03/17/23 13:23 IMPRESSION: No hydronephrosis. Increased echogenicity of the bilateral kidneys compatible with medical renal disease. Small amount of free fluid posterior to the bladder of unknown origin. Electronically Signed: Kit Olmos MD at 20:05 EDT , D/C Instructions Discharge Diet: No restrictions Weight Bearing Status: Full weight bearing Meaningful Use Info Meaningful Use Diagnoses (Choose all that apply): None applicable Discharge Plan Admission Admit Date/Time: 03/17/23 14:09 Primary Reason for Your Visit: kidney injury Attending Provider: Jonathan Fernando Primary Care Provider: Jose Miguel Herbert Instructions Additional Instructions / Restrictions: Avoid taking Ibuprofen, Aleve, or aspirin due to your kidney dysfunction You will need follow up with a Yarn Polishing Machine Operator (kidney specialist) as an outpatient, Dr. Freeman's office should call you this week to arrange followup-call the office this Monday if they haven't contacted you by then Discharge Orders/Prescriptions Referrals / Follow Up: Jose Miguel Herbert MD [Primary Care Provider] - See Referral Note (at next visit) Andrew Hills MD [Med Staff - Consulting] - See Referral Note (office should contact you for follow up) Disposition Disposition (needs filled in before D/C Order can be placed): Home, Self Care Charges/Coding Visit Charges Inpatient E&M: 57643 Disch Hosp 03/18/23 1143 <Electronically signed by Jonathan Fernando DO> Cosigner Signature (if applicable): CC: Dr. Jose Miguel Herbert MD; Dr. Jonathan Fernando DO~ Signed [facility] Work Phone: 1(802) 328-459907-01-2023 Discharge summary Author Jonathan Fernando [facility] March 18, 2023 11:06am Note Date/Time March 18, 2023 10:55 am [facility] Medical Records Department [address] [place] [address] Instructions for Home/Discharge Instructions 03/18/23 1053 MR#: [id number] Acct: [id number] Name: EDGAR HENDERSON Rep #:[id number] : 1950 72 From: Jonathan Fernando DO PCP: Dr. Jose Miguel Herbert MD Status:ADM IN Discharge Instructions Diet Discharge Diet: No restrictions Activity Discharge Activity: Return to Normal Activity Weight Bearing Status: Full weight bearing Follow Up Care Test Results: Test results from this visit will be discussed in further detail at your follow- up appointment, if applicable. Discharge Plan Admission Admit Date/Time: 03/17/23 14:09 Primary Reason for Your Visit: kidney injury Attending Provider: Jonathan Fernando Primary Care Provider: Jose Miguel Herbert Instructions Additional Instructions / Restrictions: Avoid taking Ibuprofen, Aleve, or aspirin due to your kidney dysfunction You will need follow up with a Yarn Polishing Machine Operator (kidney specialist) as an outpatient, Dr. Freeman's office should call you this week to arrange followup-call the office this Monday if they haven't contacted you by then Discharge Orders/Prescriptions Referrals / Follow Up: Jose Miguel Herbert MD [Primary Care Provider] - See Referral Note (at next visit) Andrew Hills MD [Med Staff - Consulting] - See Referral Note (office should contact you for follow up) Disposition Disposition (needs filled in before D/C Order can be placed): Home, Self Care 03/18/23 1106<Electronically signed by Jonathan Fernando DO>Jonathan Fernando DO CC: Dr. Jose Miguel Herbert MD ~ Signed [facility] Work Phone: [phone]) 940-714306-30-2023 Discharge summary Author Jonathan Estrada [facility] March 17, 2023 9:22pm Note Date/Time March 17, 2023 11:2 3am [facility] Medical Records Department [address] [place] [address] Emergency Department Summary 03/17/23 MR#: [id number] Acct: [id number] Name: EDGAR HENDERSON Rep #:[id number] : 1950 72 From: Jonathan Estrada MD PCP: Dr. Jose Miguel Herbert MD Status:ADM IN Location: [address] <TAJ Ochoa - Last Filed: 03/17/23 13:25> History of Present Illness Chief Complaint: Abn Labs Narrative Narrative: Patient is a 72-year-old male who sees Dr. Herbert as his PCP presents to the emergency department for abnormal lab values. Patient is currently not any medications, he gets his blood work 1 week before his physical with his PCP. They called today with the results and told him to come to the emergency department. Patient has a BUN of 47, creatinine 2.47, potassium 5.3, they are concerned for some renal insufficiency, renal failure. Patient states over the last several months since the beginning of 2022, the patient is felt more weak, has lost 10 pounds, feels more short of breath on exertion. He denies any chestpain. Denies any fever or chills. Patient does not smoke, does not use alcohol. [facility] <TAJ Ochoa - Last Filed: 03/17/23 13:25> [facility] Medical History (Updated 03/17/23 @ 12:38 by TAJ Ochoa) BPH (benign prostatic hyperplasia) Guttate psoriasis Allergy/AdvReac Type Severity Reaction Status Date / Time No Known Allergies Allergy Verified 03/17/23 11:18 Family History Father Heart disease Pacemaker Cancer hodgkins Sister Cancer non hodgkins Surgical History History of bilateral inguinal hernia repair (~2003) History of colonoscopy (~06/05/18) Social History Smoking Status: Never smoker ROS <TAJ Ochoa - Last Filed: 03/17/23 13:25> ROS ED ROS Narrative Constitutional: Negative for fever, chills, positive for weight loss, weakness Eyes: Negative for vision loss, vision change, double vision ENT: Negative for any sore throat, ear pain, congestion Cardiovascular: Negative for any chest pain, tightness, palpitations Respiratory: Negative for any cough, sputum production, hemoptysis, dyspnea.positive for dyspnea on exertion, orthopnea Gastrointestinal: Negative for any abdominal pain, nausea, vomiting, diarrhea, constipation, blood in stool, blood in vomit : Negative for any urinary frequency, dysuria, retention, blood in urine Muscle skeletal: Negative for any muscle joint pain, stiffness, myalgias, arthralgias, neck pain, back pain Neurological: Negative for any headache, syncope, numbness or tingling, dizziness Skin: Negative for any rashes, lumps, itching, abrasions, lacerations Psychiatric: Negative for any depression, anxiety, stress, suicidal ideation, homicidal ideation Hematologic: Negative for any easy bruising, excessive bruising, easy bleeding Allergies: Negative for any eczema, hives, rash EXAM <TAJ Ochoa - Last Filed: 03/17/23 13:25> Physical Exam Narrative Exam Narrative: Vital signs reviewed. Patient is alert and orient x4. Patient is in no obvious distress. HEET: Head normocephalic atraumatic, TMs clear bilaterally. Posterior pharynx is clear, moist mucous membranes. Nares clear bilaterally. Neck: Supple with no lymphadenopathy or tenderness. No signs of meningismus, negative jolt sign. Cardiac: Regular rate and rhythm positive murmur, no gallops or rubs, equal peripheral pulses bilaterally. Respiratory: Lungs clear to auscultation bilaterally. No chest tenderness. Abdomen: Soft, nontender, nondistended. No abdominal bruit or pulsatile masses. No hepatosplenomegaly Extremities: No peripheral edema, no signs of gross trauma or deformity. Activefull range of motion of all extremities. Neuro: Cranial nerves II through XII intact, no focal neurological deficits. Skin: Clean dry and intact with no rash, purpura, petechiae, vesicles or pustules. Backs/flank: No CVA tenderness, no midline spinal tenderness, no deformity. Psych: Normal mood and affect. No SI, HI or acute psychosis. Const Vital Signs: 03/17/23 11:03 03/17/23 11:09 03/17/23 12:47 Temperature 97.4 F L Temperature Source Temporal Pulse Rate 84 52 L Respiratory Rate 16 10 L Respiratory Effort Normal Non-Labored Respiratory Pattern Normal Blood Pressure 148/89 H 140/79 H Blood Pressure Mean 108 99 Pulse Ox 99 99 Oxygen Delivery Method Room Air Room Air Positive well nourished and well developed General Appearance ED: well developed <Dr. Jonathan Estrada MD - Last Filed: 03/17/23 11:28> Physical Exam Const Vital Signs: 03/17/23 11:03 03/17/23 11:09 03/17/23 12:47 Temperature 97.4 F L Temperature Source Temporal Pulse Rate 84 52 L Respiratory Rate 16 10 L Respiratory Effort Normal Non-Labored Respiratory Pattern Normal Blood Pressure 148/89 H 140/79 H Blood Pressure Mean 108 99 Pulse Ox 99 99 Oxygen Delivery Method Room Air Room Air MDM <TAJ Ochoa - Last Filed: 03/17/23 13:25> MDM Lab Data Labs: Laboratory Results - last 24 hr 03/17/23 11:30 WBC 6.8 RBC 3.82 L Hgb 12.5 L Hct 37.7 L MCV 98.7 H MCH 32.7 H MCHC 33.2 RDW Std Deviation 50.1 H RDW Coeff of Zachary 13.8 Plt Count 271 MPV 9.7 Immature Gran % (Auto) 0.300 Neut % (Auto) 56.1 Lymph % (Auto) 31.5 [place] % (Auto) 9.9 Eos % (Auto) 1.3 Baso % (Auto) 0.9 Absolute Neuts (auto) 3.8 Absolute Lymphs (auto) 2.13 Nucleated RBC % 0 Sodium 139 Potassium 4.2 Chloride 106 Carbon Dioxide 27.0 Anion Gap 6 BUN 44 H Creatinine 2.44 H Estim Creat Clear Calc 20.80 Est GFR (MDRD) Af Amer 34 L Est GFR (MDRD) Non-Af 28 L BUN/Creatinine Ratio 18.0 Glucose 129 H Calcium 8.9 Total Bilirubin 0.40 AST 33 ALT 28 Alkaline Phosphatase 93 Troponin I High Sens 153 H* Total Protein 6.4 Albumin 2.7 L Globulin 3.7 Albumin/Globulin Ratio 0.7 L TSH 3.58 Radiography Diagnostic Testing: Clinical Impression(s) from Imaging Studies Chest X-Ray 03/17/23 11:35 IMPRESSION: No radiographic evidence of acute cardiopulmonary disease. Electronically Signed: Navarro Donnelly MD at 12:19 EDT , EKG Normal sinus rhythm: Attestation: I personally reviewed and interpreted this EKG as follows: Comments: Normal sinus rhythm, rate of 63 bpm, MN interval is 78 ms, QRS duration 102 ms, no acute ST elevation, no acute infarct noted. Treatment and Re-Evaluation :: Patient is alert and orient x4. Patient presents to the emergency department for abnormal kidney function and generalized fatigue over the last several months. Patient will receive basic laboratory values such as a CBC, chemistry, patient will receive two-view chest x-ray EKG and troponin. He will be given 1 L of normal saline. Patient is being ruled out for type 2 diabetes, acute kidney injury, any sort of infection. Patient's laboratory values showed a CBC with slight anemia with a hemoglobin of12.5, 2 years ago, the patient's hemoglobin is 14.4, 2 years ago, the patient's creatinine is 1.03, today is 2.44, glucose 129 with a troponin 153. Patient at this time is having no active chest pain, patient's EKG shows no active IN, ACS. After talking with the patient, the patient does need to be admitted to the hospital. Patient needs to be worked up for the acute kidney injury, as well asthe elevated troponin. Patient is agreeable with the plan. Vital signs remained stable. Patient be admitted to hospitalist. <Dr. Jonathan Estrada MD - Last Filed: 03/17/23 11:28> MDM MDM Narrative Medical decision making narrative: I have personally performed a face to face assessment of the patient and have reviewed the ANDREI Note. I performed a substantive portion of the visit including all aspects of the following. My st findings include: History is 72-year-old male healthy currently on no medications. I am evaluating him with our nurse practitioner. Patient's had exhaustion and fatigue for the last 6 months. Had screening labs to see his primary care physician that were abnormal and was sent to the emergency department. Exam is [H EENT exam unremarkable. Neck nontender no JVD. Lungs clear to auscultation. Heart regular rhythm 3/6 systolic ejection murmur. Abdomen soft, nontender, nondistended normal bowel sounds no peritoneal signs. Moving all 4 extremities. Trace edema in his legs. Neurologically is awake alert with no focal motor deficits. Benign exam.] Medical Decision Making [72-year-old with worsening kidney function. Screening labs will be obtained. Bladder scan.] Other additions or changes: [None] Lab Data Labs: Laboratory Results - last 24 hr 03/17/23 11:30 WBC 6.8 RBC 3.82 L Hgb 12.5 L Hct 37.7 L MCV 98.7 H MCH 32.7 H MCHC 33.2 RDW Std Deviation 50.1 H RDW Coeff of Zachary 13.8 Plt Count 271 MPV 9.7 Immature Gran % (Auto) 0.300 Neut % (Auto) 56.1 Lymph % (Auto) 31.5 [place] % (Auto) 9.9 Eos % (Auto) 1.3 Baso % (Auto) 0.9 Absolute Neuts (auto) 3.8 Absolute Lymphs (auto) 2.13 Nucleated RBC % 0 Sodium 139 Potassium 4.2 Chloride 106 Carbon Dioxide 27.0 Anion Gap 6 BUN 44 H Creatinine 2.44 H Estim Creat Clear Calc 20.80 Est GFR (MDRD) Af Amer 34 L Est GFR (MDRD) Non-Af 28 L BUN/Creatinine Ratio 18.0 Glucose 129 H Calcium 8.9 Total Bilirubin 0.40 AST 33 ALT 28 Alkaline Phosphatase 93 Troponin I High Sens 153 H* Total Protein 6.4 Albumin 2.7 L Globulin 3.7 Albumin/Globulin Ratio 0.7 L TSH 3.58 Radiography Diagnostic Testing: Clinical Impression(s) from Imaging Studies Chest X-Ray 03/17/23 11:35 IMPRESSION: No radiographic evidence of acute cardiopulmonary disease. Electronically Signed: Navarro Donnelly MD at 12:19 EDT , Discharge Plan Dx/Rx/DC Orders Clinical Impression: Acute kidney injury, Exertional dyspnea, Anemia, Elevated troponin Disposition Disposition: [facility] What to do if you have Problems For any increased pain, shortness of breath, bleeding, nausea or vomiting, chest pain, or any unexpected problems, contact your Primary Care Provider. Call [facility] ([phone]) or report to the closest Emergency Room. Call 911 if necessary. 03/17/232121 <Electronically signed by Jonathan Estrada MD> Cosigner Signature (if applicable): 03/17/23 1325 <Electronically signed by Jose VANG> CC: Dr. Jose Miguel Herbert MD ~ Signed [facility] Work Phone: 1(958) 123-651006-30-2023 History and physical note Author Jonathan Fernando [facility] March 17, 2023 5:57pm Note Date/Time March 17, 2023 5:45 pm [facility] Medical Records Department [address] [place] [address] H&P Exam - Hospitalist 03/17/23 1740 MR#: [id number] Acct: [id number] Name: EDGAR HENDERSON Rep #:[id number] : 1950 72 From: Jonathan Fernando DO PCP: Dr. Jose Miguel Herbert MD Status:ADM IN Location: U [id number] HPI - General General Date of Admission: 03/17/23 Date of Service: 03/17/23 Chief Complaint: Abnormal outpatient labs HPI Narrative EDGAR HENDERSON, is a 72 M who presents to the emergency room at [facility] after being sent in at the request of his family physician due to abnormal labs which were obtained this week. Patient's creatinine was elevated. Work-up in the emergency room included a CBC which was abnormal for hemoglobin of 12.5, chemistry profile was abnormal for BUN of 44 and a creatinine of 2.44. Patient's troponin is elevated at 153, EKG showed a normal sinus rhythm with nonspecific ST-T wave changes in the lateral precordial leads. Patient's UA wasunremarkable. Patient will be admitted to PCU, IV fluids will be administered, patient will have an echocardiogram performed and an ultrasound on his kidneys and bladder. Labs will be monitored, cardiac enzymes will be cycled. PFSH Medical History BPH (benign prostatic hyperplasia) Guttate psoriasis Kidney disease Non-smoker Allergy/AdvReac Type Severity Reaction Status Date / Time No Known Allergies Allergy Verified 03/17/23 11:18 Family History Father Heart disease Pacemaker Cancer hodgkins Sister Cancer non hodgkins Surgical History History of bilateral inguinal hernia repair (~2003) History of colonoscopy (~06/05/18) Social History Smoking Status: Never smoker ROS Constitutional Constitutional: Reports fatigue and weakness; Denies anorexia, change in weight,chills, fever(s) or night sweats Eyes Eyes: Denies blurry vision, change in vision, discharge from eye(s) or eye pain Cardiovascular Cardiovascular: Denies chest pain, claudication, dyspnea on exertion, edema, lightheadedness or palpitations Respiratory/Chest Respiratory/Chest: Denies cough, excessive phlegm production, hemoptysis, productive cough, shortness of breath at rest or shortness of breath with exertion Gastrointestinal Gastrointestinal: Denies abdominal pain, constipation, diarrhea, hematemesis, hematochezia, melena, nausea or vomiting Genitourinary Genitourinary: Denies dysuria, hematuria, urinary frequency, urinary hesitancy, urinary incontinence or urinary urgency Musculoskeletal Musculoskeletal: Denies back pain, joint pain, joint stiffness, joint swelling, myalgias or neck pain Neurologic Neurologic: Denies abnormal gait, abnormal speech, confusion, disequilibrium, dizziness, focal weakness, headache(s), loss of vision, numbness, other visual disturbances, paresthesias, syncope or tingling Psychiatric Psychiatric: Denies anxiety, cognitive impairment, depression, irritability, mood swings or suicidal ideation Endocrine Endocrinology: Denies change in body appearance, cold intolerance, excessive sweating, heat intolerance, polydipsia or polyuria Hematologic/Lymphatic Hematologic/Lymphatic: Denies none, anemia, easy bleeding, easy bruising or lymphadenopathy Allergic/Immunologic Allergic/Immunologic: Denies rhinitis, urticaria, eczemia or asthma Vital Signs Vital Signs Vital Signs: 03/17/23 11:03 03/17/23 11:09 03/17/23 12:47 Temperature 97.4 F L Temperature Source Temporal Pulse Rate 84 52 L Respiratory Rate 16 10 L Respiratory Effort Normal Non-Labored Respiratory Depth Respiratory Pattern Normal Blood Pressure 148/89 H 140/79 H Blood Pressure Mean 108 99 Blood Pressure Source Blood Pressure Position Blood Pressure Location Pulse Ox 99 99 Oxygen Delivery Method Room Air Room Air 03/17/23 14:01 03/17/23 14:13 03/17/23 15:10 Temperature 98 F 98.0 F Temperature Source Temporal Oral Pulse Rate 54 L 61 Respiratory Rate 12 18 Respiratory Effort Normal Non-Labored Respiratory Depth Normal Respiratory Pattern Normal Blood Pressure 126/78 H 142/79 H Blood Pressure Mean 94 100 Blood Pressure Source Monitor Blood Pressure Position Semi-Fowlers Blood Pressure Location Right Arm Pulse Ox 100 Oxygen Delivery Method Room Air Room Air Weight Weight: 52.4 kg Body Mass Index (BMI) 17.5 Physical Exam Const alert, oriented x3, no apparent distress and healthy appearing General Appearance: cooperative, well kempt and well developed Orientation / Consciousness: awake, oriented to person, oriented to place and oriented to time HEENT normocephalic Mouth: moist mucous membranes abnormal Eyes PERRL, EOMs intact bilaterally and conjunctivae normal Neck supple, no JVD, thyroid normal and no carotid bruits General: trachea midline Resp normal respiratory effort, no retractions, no use of accessory muscles and clearto auscultation bilaterally Auscultation: Negative for rales, rhonchi or wheezes Cardio regular rate, regular rhythm, S1 normal heart sound, S2 normal heart sound, no murmurs, no rub and no gallops GI normal to inspection, nondistended, normoactive bowel sounds, soft to palpation,non-tender and non-distended Extremity no clubbing, cyanosis or edema Skin no rashes or lesions noted General Skin Exam: no breakdown Neuro oriented x3, CN's II-XII intact bilaterally, moves all extremities, no focal motor deficits and no sensory deficits noted Sensorium / Orientation: awake and alert Speech: speech normal Psych affect normal Results Lab / Micro Data 03/17/23 11:30 03/17/23 11:30 Labs: Laboratory Results - last 24 hr 03/17/23 11:30: WBC 6.8, RBC 3.82 L, Hgb 12.5 L, Hct 37.7 L, MCV 98.7 H, MCH 32.7 H, MCHC 33.2, RDW Std Deviation 50.1 H, RDW Coeff of Zachary 13.8, Plt Count 271, MPV 9.7, Immature Gran % (Auto) 0.300, Neut % (Auto) 56.1, Lymph % (Auto) 31.5, [place] % (Auto) 9.9, Eos % (Auto) 1.3, Baso % (Auto) 0.9, Absolute Neuts (auto) 3.8, Absolute Lymphs (auto) 2.13, Nucleated RBC % 0, Sodium 139, Potassium 4.2, Chloride 106, Carbon Dioxide 27.0, Anion Gap 6, BUN 44 H, Creatinine 2.44 H, Estim Creat Clear Calc 20.80, Est GFR (MDRD) Af Amer 34 L, Est GFR (MDRD) Non-Af 28 L, BUN/Creatinine Ratio 18.0, Glucose 129 H, Calcium 8.9, Total Bilirubin 0.40, AST 33, ALT 28, Alkaline Phosphatase 93, Troponin I High Sens 153 H*, Total Protein 6.4, Albumin 2.7 L, Globulin 3.7, Albumin/Globulin Ratio 0.7 L, TSH 3.58 03/17/23 16:07: Troponin I High Sens 139 H* 03/17/23 : Urine Color Yellow, Urine Clarity Clear, Urine pH 6.5, Ur Specific [place] 1.010, Urine Protein 100 H, Urine Glucose (UA) Normal, Urine Ketones Negative, Urine Occult Blood 25 H, Urine Nitrite Negative, Urine Bilirubin Negative, Urine Urobilinogen Normal, Ur Leukocyte Esterase Negative, Urine RBC 0SEEN, Urine WBC 0 SEEN, Ur Squamous Epith Cells 0 SEEN, Urine Bacteria 0 SEEN, Urine Mucus 0 SEEN Radiology Impression Chest X-Ray 03/17/23 11:35 IMPRESSION: No radiographic evidence of acute cardiopulmonary disease. Electronically Signed: Navarro Donnelly MD at 12:19 EDT , Echocardiogram 03/17/23 13:23 Interpretation Summary Normal LV size. Moderate concentric left ventricular hypertrophy. Left ventricular systolic function is normal. The estimated ejection fraction is 65 %. Stage 1 diastolic dysfunction. Pulmonary artery systolic pressure is 28 mmHg. Contrast injection was performed. Ordering Physician: Jonathan Fernando Referring Physician: JONATHAN ESTRADA Performed By: Sybil Siu RCS Assessment & Plan Assessment/Plan (1) Creatinine elevation: PLAN: Plan 1. Creatinine elevation-etiology unclear, patient will be admitted to PCU and given IV fluids, labs will be monitored, patient will have an ultrasound of his kidneys and bladder. On 01/20/2022, patient's creatinine was 1.18 #2 elevated troponin-etiology unclear, patient will have an echocardiogram performed Total clinical time spent by myself addressing the patient's medical issues, reviewing all of his data, and collaborating with patient's care team: 55 minutes Charges/Coding Visit Charges Inpatient E&M: 15613 Init Hosp L2 03/17/23 2707 <Electronically signed by Jonathan Fernando DO> Cosigner Signature (if applicable): CC: Dr. Jose Miguel Herbert MD; Dr. Jonathan Fernando, DO~ Signed [facility] Work Phone: [phone]) 993-704806-30-2023 Miscellaneous Notes* Telephone Encounter - Sheree Fabian PA-C - 03/17/2023 10:55 AM EDT Noted. Thanks. Sheree Fabian PA-C * Telephone Encounter - Manuela Gomez RN - 03/17/2023 10:46 AM EDT Called pt with Dr. Herbert's and Sheree Fabian's msgs. Pt still hesitant to go to ER. Both myselfand Kirstin Seay spoke with pt and told him the importance of going and the fact that he could be in acute renal failure which can cause organ failure and . Also explained how a high K+ level can cause a life threatening heart arrhythmia as well as . Pt states he has an event he really wantsto attend this afternoon. Pt again told all the above information and has now agreed to head to theER now. Called [facility] ER and spoke with Ana nurse and let her know pt's lab results and to expecthim. Last OV note as well as this TE faxed over to the ER. * Telephone Encounter - Jose Miguel Herbert MD - 03/17/2023 8:46 AM EDT Let patient know I also reviewed his labs and not only is his creatinine high but hie potassium is elevated which can also get worse. This can put his heart into a life threatening arhythmia. He needs to go to the ER. If agrees the ER should be contacted that he plans to go to and make them aware of why he is being sent in. * Telephone Encounter - MARY Tang - 03/17/2023 8:23 AM EDT TC to patient who is given providers message below. Patient is very hesitant to go to ER and asks if this is something that can wait until his OV next week. Explained to patient that we are unable togive IV fluids at this facility. Discussed with Sheree who stated if untreated, acute renal failure could lead to other organs shutting down and therefore . Patient is notified of such and still hesitant to go to ER. Patient states he may go later this afternoon but that he needs time to think it through. This staff again encouraged patient going to ER and told patient to call back with anyquestions. MARY Tang * Telephone Encounter - Sheree Fabian PA-C - 03/17/2023 8:11 AM EDT Based on patient's symptoms and the lab findings, I want patient to go to ER. He's likely in acute renal failure and will need IV fluids. Sheree Fabian PA-C * Telephone Encounter - MARY Tang - 03/17/2023 8:01 AM EDT TC to patient who states he has been miserable, he is constant exhausted, on worst days he wakes upto start making breakfast but he immediately has to go lay down. This occurs throughout the day as he tries to complete tasks. Other symptoms are a metallic taste and constantl thirst. Patient estimates he is drinking 4-5 cups of water a day. Has not had any NSAIDS, and stopped taking caffeine pills (was taking 100 mg at breakfast and lunch). His mouth is also constantly dry and he is having trouble chewing and swallowing. Patient states his mouth dries out even when talking. In regards to kidney function, patient states he is urinating every hour and a half to two hours. Patient also states his legs feel rubbery and all his muscles feel weak. * Telephone Encounter - Sheree Fabian PA-C - 03/17/2023 7:30 AM EDT Let patient know that labs will be discussed at visit next week. However, his creatinine is very high. Renal function significantly decreased. How has he been feeling? Has he recently been taking a lot of NSAIDS? How much water does he drink on daily basis (estimate)? [facility] Miscellaneous Notes* Telephone Encounter - Carolyn Norris LPN - 11/11/2022 1:13 PM EST Patient notified and verbalizes understanding. * Telephone Encounter - Jose Miguel Herbert MD - 11/11/2022 1:01 PM EST Let patient know labs placed. Will need to be fasting and give a urine. * Telephone Encounter - Katherine Fragoso - 11/11/2022 11:34 AM EST Patient would like a PSA included and asking if he will need a urine sample. If so please advise sohe can be prepared. * Telephone Encounter - Katherine Fragoso - 11/11/2022 11:32 AM EST Patient is schedule for medicare wellness in March and requesting lab orders to complete prior to this visit. Please place orders. documented in [facility]22 Instructions* Patient Instructions* Jose Miguel Herbert MD - 01/27/2022 1:32 PM EDT If you want to get the a Tdap (tetnus booster) Check with the health dept (usuallt $45) or local pharmacy. If you want the shingrix vaccine for the prevention of shingles check with a local pharmacy. documented in [facility]Prem[facility]22 History of Present illness Narrative* Jose Miguel Herbert MD - 01/27/2022 1:00 PM EDT Medicare Yearly Visit Medical B eligibilty date 08/18/2017 Date of last exam NA PAST MEDICAL HISTORY Diagnosis Date Allergic rhinitis due to other allergen BPH without obstruction/lower urinary tract symptoms 05/17/2011 Family history of prostate cancer 05/12/2009 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 Internal hemorrhoids without mention of complication PAST SURGICAL HISTORY Procedure Laterality Date COLONOSCOPY FLX DX W/COLLJ SPEC WHEN PFRMD 08/07/08 COLONOSCOPY FLX DX W/COLLJ SPEC WHEN PFRMD 06/07/2018 Colonoscopy RPR 1ST INGUN HRNA AGE 5 YRS/> REDUCIBLE Hernia repair, inguinal, bilateral SIGMOIDOSCOPY FLX DX W/COLLJ SPEC BR/WA IF PFRMD 2002 Sigmoidoscopy ALLERGIES: Patient has no known allergies. Medications reviewed: Yes FAMILY HISTORY Problem Relation Age of Onset Prostate Cancer Father Heart Father Pacemaker None Sister Cancer Father Hodgkin's lymphoma Cancer Sister lymphoma SOCIAL HISTORY: Social History Tobacco Use Smoking status: Never Smoker Smokeless tobacco: Never Used Substance Use Topics Alcohol use: No Drug use: No Edgar works out regularly 2 times per week with swimming or swim class. He watches his diet for sodium, low fat and low cholesterol some of the time. List of current specialists seen: ann marie Shoemaker (Urology for hydrocele) End of Live Planning discussed including patients advanced directive wishes: Yes I am willing to follow Edgar's advanced directives. PHQ-2 / Depression screen Depression Screening 08/19/2016 05/18/2018 07/04/2019 01/27/2022 PHQ-2 Score 0 0 0 0 Depression screening tool completed and reviewed. Based on score and interview, patient is not at risk for depression. Screening tool discussed with patient, and I recommended no further interventionat this time. Functional Ability/Safety Screen 1. Was the patient's timed Up and Go test unsteady or longer than 30 seconds? No 2. Does the patient need help with the phone, transportation, shopping,preparing meals, housework, laundry, medications or managing money? No 3. Does your home have rugs in the hallway, lack of grab bars in the bathroom(Y), lack of handrailson the stairs or have poor lighting? No Hearing Evaluation: normal PHYSICAL EXAM BP 140/80 (BP Site: Right Arm, BP Position: Sitting, BP Cuff Size: Regular Adult) Pulse 68 Resp16 Ht 170.2 cm (5' 7) Wt 54.9 kg (121 lb) BMI 18.95 kg/m Alert and oriented X 3: YES Body mass index is 18.95 kg/m . Visual acuity: seeing optho See below ASSESSMENT/PLAN: 71 year old male The following prevention plan was discussed during the office visit and provided to the patient: See below Jose Miguel Herbert MD Chief Complaint Patient presents with: Medicare Wellness Exam HPI Edgar Henderson is a 71 year old male who presents here today for Medicare Annual Visit. Concerns: PSA concern; skin on left side voodoo (may be slightly larger and scaly, no pain or bleeding); recommendations on second booster and when. Patient otherwise has been doing ok. Past medical history, appointments, medications, allergies reviewed. Previous Medical History PAST MEDICAL HISTORY Diagnosis Date Allergic rhinitis due to other allergen BPH without obstruction/lower urinary tract symptoms 05/17/2011 Family history of prostate cancer 05/12/2009 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 Internal hemorrhoids without mention of complication Previous Surgical History PAST SURGICAL HISTORY Procedure Laterality Date COLONOSCOPY FLX DX W/COLLJ SPEC WHEN PFRMD 08/07/08 COLONOSCOPY FLX DX W/COLLJ SPEC WHEN PFRMD 06/07/2018 Colonoscopy RPR 1ST INGUN HRNA AGE 5 YRS/> REDUCIBLE Hernia repair, inguinal, bilateral SIGMOIDOSCOPY FLX DX W/COLLJ SPEC BR/WA IF PFRMD 2002 Sigmoidoscopy Family History FAMILY HISTORY Problem Relation Age of Onset Prostate Cancer Father Heart Father Pacemaker None Sister Cancer Father Hodgkin's lymphoma Cancer Sister lymphoma Patient Allergies ALLERGIES No Known Allergies Current Medications Current Outpatient Medications on File Prior to Visit Medication Sig EXCEDRIN 250 MG-250 MG-65 MG ORAL TAB as necessary No current facility-administered medications on file prior to visit. Social History Social History Tobacco Use Smoking status: Never Smoker Smokeless tobacco: Never Used Substance Use Topics Alcohol use: No Drug use: No Review of Symptoms REVIEW OF SYSTEMS GENERAL: No significant weight loss, malaise or fevers HEENT: Negative for frequent or significant headaches, No changes in hearing or vision, no nose bleeds or other nasal problems NECK: Negative for lumps, goiter, pain and significant neck swelling RESPIRATORY: Negative for cough, hemoptysis, wheezing, COPD, dyspnea or shortness of breath CARDIOVASCULAR: Negative for chest pain, leg swelling, hypertension, CHF or palpitations GI: No nausea, vomiting, or diarrhea, No heartburn or reflux symptoms and no blood : No history of dysuria, no blood. MUSCULOSKELETAL: Negative for joint pain or swelling, back pain or muscle pain SKIN: See HPI PSYCH: Negative for sleep disturbance, mood disorder and recent psychosocial stressors HEMATOLOGY/LYMPHOLOGY: Negative for prolonged bleeding, bruising easily or swollen nodes ENDOCRINE: Negative for cold or heat intolerance, polyuria, polydipsia and goiter NEURO: No history of headaches, syncope, paralysis, seizures or tremors EXAM: BP 140/80 (BP Site: Right Arm, BP Position: Sitting, BP Cuff Size: Regular Adult) Pulse 68 Resp16 Ht 170.2 cm (5' 7) Wt 54.9 kg (121 lb) BMI 18.95 kg/m BP 134/74 Pulse 68 Resp 16 Ht 170.2 cm (5' 7) Wt 54.9 kg (121 lb) BMI 18.95 kg/m Last 4 Encounter Wt Readings: Date: Wt: 01/27/2022 54.9 kg (121 lb) 07/13/2020 57.2 kg (126 lb) 07/09/2020 56.7 kg (125 lb) 07/04/2019 57.6 kg (127 lb) General Appearance: Well appearing, alert, in no acute distress, well-hydrated, well nourished.. Skin: Skin color, texture, turgor normal, no suspicious rashes or lesions. Head: Normocephalic, no masses, lesions, tenderness or abnormalities. Eyes: Anicteric sclera. Pupils are equally round and reactive to light. Extraocular movements are intact. . Ears: External ears, TM's normal, canals clear. Neck: Supple, no adenopathy; thyroid symmetric, normal size, no bruits. Lungs: Lungs clear to auscultation. No wheezing, rhonchi, rales.. Heart: RRR without murmur, gallop, or rubs. No ectopy. Abdomen: Normal abdominal exam, Abdomen soft, non-tender. Bowel sounds normal. No masses, organomegaly. Extremities: No deformities, edema, skin discoloration. Musculoskeletal: Muscular strength intact, No joint swelling, deformity, or tenderness. Peripheral Pulses: Normal. Neurologic: Gait normal. Reflexes normal and symmetric. Sensation to light touch and crainal nerves2-12 intact.. Genitalia: Normal, Penis normal. No urethral discharge. Scrotum normal to palpation. No hernia.. Rectal: Normal exam. Prostate slightly enlarged but smooth firm capsule., Health Maintenance List HEPATITIS C SCREENING Never done SHINGRIX VACCINE(2 of 3) due on 07/11/2013 DTAP,TDAP,TD(2 - Td or Tdap) due on 05/13/2020 DEPRESSION SCREENING due on 07/04/2020 ADVANCE DIRECTIVE DISCUSSION Never done COVID-19 VACCINE(3 - Booster for Elida series) due on 11/19/2021 INFLUENZA(Season Ended) due on 05/19/2022 DIABETES SCREEN due on 01/20/2025 LIPID SCREEN due on 01/20/2027 COLORECTAL CANCER SCREENING due on 06/07/2028 PNEUMOVAX AGE 65 AND OVER WITH 5YR LOOKBACK Completed MENINGOCOCCAL CONJUGATE Aged Out Data reviewed Component Latest Ref Rng & Units 07/02/2020 01/20/2022 WBC 3.70 - 11.00 k/uL 6.84 7.55 RBC 4.20 - 6.00 m/uL 4.50 4.45 Hemoglobin 13.0 - 17.0 g/dL 15.0 14.5 Hematocrit 39.0 - 51.0 % 45.4 44.6 MCV 80.0 - 100.0 fL 100.9 (H) 100.2 (H) MCH 26.0 - 34.0 pg 33.3 32.6 MCHC 30.5 - 36.0 g/dL 33.0 32.5 RDW-CV 11.5 - 15.0 % 12.9 12.9 Platelet Count 150 - 400 k/uL 183 223 MPV 9.0 - 12.7 fL 10.7 10.4 Neut% % 49.0 Abs Neut (ANC) 1.45 - 7.50 k/uL 3.70 Lymph% % 37.0 Abs Lymph 1.00 - 4.00 k/uL 2.79 [place]% % 11.9 Abs [place] <0.87 k/uL 0.90 (H) Eosin% % 1.2 Abs Eosin <0.46 k/uL 0.09 Baso% % 0.8 Abs Baso <0.11 k/uL 0.06 Immature Gran % % 0.1 IMMATURE GRANS (ABS) <0.10 k/uL <0.03 NRBC /100 WBC 0.0 Absolute nRBC <0.01 k/uL <0.01 <0.01 DTYPE Auto Protein, Total 6.3 - 8.0 g/dL 6.7 Albumin 3.9 - 4.9 g/dL 4.4 Calcium 8.5 - 10.2 mg/dL 9.3 9.6 Bilirubin, Total 0.2 - 1.3 mg/dL 0.7 Alkaline Phosphatase 38 - 113 U/L 58 AST 14 - 40 U/L 25 Glucose 74 - 99 mg/dL 81 93 BUN 9 - 24 mg/dL 16 20 Creatinine 0.73 - 1.22 mg/dL 0.90 1.18 Sodium 136 - 144 mmol/L 138 138 Potassium 3.7 - 5.1 mmol/L 3.9 5.0 Chloride 97 - 105 mmol/L 100 99 CO2 22 - 30 mmol/L 30 28 Anion Gap 9 - 18 mmol/L 8 (L) 11 ALT 10 - 54 U/L 16 eGFR- >60 eGFR-All Other Races . >60 Color Yellow Light Yellow Clarity Clear Clear Glucose, Urine Negative Negative Bilirubin, Urine Negative Negative Ketones, Urine Negative Negative Specific [place], Ur 1.005 - 1.030 1.010 Hemoglobin/Blood,Ur Negative Negative pH, Urine 5.0 - 8.0 6.0 Protein, Urine Negative Negative Urobilinogen Negative Negative Nitrites Negative Negative Leukest Negative Negative WBC, Urine 0-5 /HPF 0-5 /HPF RBC, Urine 0-3 /HPF 0-3 /HPF eGFR >=60 mL/min/1.73m 67 Cholesterol, Total <200 mg/dL 169 Triglyceride <150 mg/dL 37 HDL Cholesterol >39 mg/dL 88 LDL Cholesterol <100 mg/dL 74 Non HDL Cholesterol <130 mg/dL 81 Fasting Time hrs 12 VLDL Cholesterol <30 mg/dL 7 TC:HDL Ratio <5.10 1.92 LDL:HDL Ratio <2.54 0.84 Total Cholesterol, Nonfasting <200 mg/dL 179 Triglycerides, Nonfasting <150 mg/dL 58 HDL Cholesterol, Nonfasting >39 mg/dL 84 LDL Cholesterol, Nonfasting <100 mg/dL 83 Non HDL Cholesterol, Nonfasting <130 mg/dL 95 VLDL Cholesterol, Nonfasting <30 mg/dL 12 Total Chol/HDL Ratio, Nonfasting <5.10 mg/dL 2.13 LDL/HDL Ratio, Nonfasting <2.54 mg/dL 0.99 PSA <2.60 ng/mL 0.36 0.34 A/P ASSESSMENT/PLAN: 1. Medicare annual wellness visit, subsequent - ICD9: V70.0, ICD10: Z00.00 (primary diagnosis) - Counseled on healthy diet and regular exercise - Follow up for annual exam in one year 2. BPH without obstruction/lower urinary tract symptoms - ICD9: 600.00, ICD10: N40.0 - clinically stable. No changes 3. NSAID long-term use - ICD9: V58.64, ICD10: Z79.1 - Uses very seldom any more. 4. Living will on file - ICD9: V49.89, ICD10: Z87.898 - Updated. 5. Advance directive discussed with patient - ICD9: V65.49, ICD10: Z71.89 - Updated. F/u in a year or sooner if issues. I spent a total of 40 minutes on the date of the service which included preparing to see the patient, [id number] patient care, completing clinical documentation, performing a medically appropriate examination, counseling and educating the patient/family/caregiver and ordering medications, tests, or procedures. Jose Miguel Herbert MD [facility] Miscellaneous Notes* Telephone Encounter - PORTIA Tang - 01/18/2022 3:58 PM EDT TC to patient who is aware of lab orders. No questions at this time. PORTIA Tang * Telephone Encounter - Jose Miguel Herbert MD - 01/18/2022 3:39 PM EDT Let patient know blood work and urine test orders placed. * Telephone Encounter - Kirstin Og RN - 01/18/2022 2:38 PM EDT Pt called and reports he has his physical on 01/27/22. He is asking if provider will place lab work for him and specifically wants a PSA, so that he can get it before appointment to discuss at [facility]. Please call when labs are placed. [facility] Author Colleen Iniguez [facility] Note Date/Time January 14, 2025 6:4 3pm [facility] Medical Records Department [address] [place] [id number] Anesthesia Postop Eval II 01/14/25 1647 MR#: [id number] Acct: [id number] Name: EDGAR HENDERSON Rep #:[id number] : 1950 74 From: Colleen azul LOCKER ROOM CLERK PCP: Dr. Jose Miguel Herbert MD Status:REG SDC Y Race: C Location: [place] [address] Anesthesia Postop Eval I Sum Postop Eval Completion status Anesthesia document: Postop Eval 1 completed: Yes Anesthesia Postop Eval I Summary Anesthesia Postop Eval I Summary: Anesthesia Postop Eval I: Assessment Summary Airway patent Yes 01/14/25 16:38 [email or web address] Spontaneous unlabored Yes 01/14/25 16:38 [email or web address] respirations Mental status Awake 01/14/25 16:38 [email or web address] nausea No 01/14/25 16:38 [email or web address] [email or web address] Vomiting No 01/14/25 16:38 [email or web address] [email or web address] Anesthesia Postop Eval I: Fluid Summary Crystalloid volume administer 400 01/14/25 16:38 [email or web address] [email or web address] (ml) Colloids volume administered ( ml) Blood Product volume administered (ml) Total IV fluid infused 400 01/14/25 16:38 [email or web address] Anesthesia Postop Eval I: Summary Notes Anesthesia Complication No 01/14/25 16:38 [email or web address] Anesthesia Complication Comment: Post-operative progress note Anesthesia: Postop Eval II Evaluation Mental status: Awake and Calm Pain Level: 0 nausea: No Vomiting: No Complications Anesthesia Complication: No 01/14/25 1647 <Electronically signed by Colleen cole CRNA> Date _ Colleen Iniguez CRNA Cosigner Signature: Date CC: ~ Signed [facility] Work Phone: Evaluation note* Diagnosis Family history of prostate cancer- Primary Family history of malignant neoplasm of prostate Encounter for screening for diabetes mellitus Screening for diabetes mellitus Screening for diabetes mellitus Encounter for lipid screening for cardiovascular disease Screening for lipoid disorders Medication management Encounter for long-term (current) use of other medications NSAID long-term use Encounter for long-term (current) use of non-steroidal anti-inflammatories Prostate disorder Unspecified disorder of prostate [facility] Diagnosis Medicare annual wellness visit, subsequent- Primary Routine general medical examination at a health care facility BPH without obstruction/lower urinary tract symptoms Hypertrophy of prostate without urinary obstruction and other lower urinary tract symptoms (LUTS) NSAID long-term use Encounter for long-term (current) use of non-steroidal anti-inflammatories Living will on file Advance directive discussed with patient Other specified counseling [facility] Diagnosis Encounter for screening for diabetes mellitus- Primary Screening for diabetes mellitus Medication management Encounter for long-term (current) use of other medications Prostate disorder Unspecified disorder of prostate Encounter for lipid screening for cardiovascular disease Screening for lipoid disorders NSAID long-term use Encounter for long-term (current) use of non-steroidal anti-inflammatories [facility] Diagnosis Encounter for lipid screening for cardiovascular disease- Primary Screening for lipoid disorders Prostate disorder Unspecified disorder of prostate Medication management Encounter for long-term (current) use of other medications BPH without obstruction/lower urinary tract symptoms Hypertrophy of prostate without urinary obstruction and other lower urinary tract symptoms (LUTS) [facility] this [facility] Diagnosis Onset Date Resolution Status Acute kidney injury acute Anemia acute Elevated troponin acute Exertional dyspnea acute [facility] Work Phone: Evaluation note* Diagnosis Onset Date Resolution Status Acute kidney injury acute Anemia acute Creatinine elevation acute Elevated troponin acute Exertional dyspnea acute [facility] Work Phone: Evaluation note* Diagnosis Unintended weight loss- Primary Loss of weight Fatigue, unspecified type SINDI (acute kidney injury) (HCC) Acute kidney failure, unspecified Anemia, unspecified type Decreased stamina Other malaise and fatigue Elevated troponin level Other abnormal blood chemistry Nonspecific ST-T wave electrocardiographic changes Nonspecific abnormal electrocardiogram (ECG) (EKG) Hoarseness of voice Dysphonia Black hairy tongue Hypertrophy of tongue papillae Altered taste Disturbances of sensation of smell and taste Bilateral leg edema Edema SOB (shortness of breath) Shortness of breath Lack of appetite Anorexia Generalized weakness Other malaise and fatigue [facility] encounter [facility]* Diagnosis SOB (shortness of breath) Shortness of breath [facility] Diagnosis Monoclonal (M) protein disease, multiple 'M' protein- Primary Monoclonal paraproteinemia documented in this encounter [facility] Diagnosis Macrocytosis- Primary Other specified diseases of blood and blood-forming organs Abnormal thyroid blood test Nonspecific abnormal results of thyroid function study Anemia, unspecified type [facility] this encounter [facility]* Diagnosis 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 SINDI (acute kidney injury) (HCC) Acute kidney failure, unspecified Monoclonal (M) protein disease, multiple 'M' protein Monoclonal paraproteinemia [place] macroglobulinemia (HCC) Macroglobulinemia documented in this encounter [facility]* Diagnosis Encounter for education- Primary Counseling NOS documented in this encounter [facility]* Diagnosis Onset Date Resolution Status Creatinine elevation acute Elevated troponin resolved [facility] Work Phone: Evaluation note* Diagnosis 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) Other amyloidosis SINDI (acute kidney injury) (HCC) Acute kidney failure, unspecified documented in this encounter [facility] note* Diagnosis Lymphoplasmacytic lymphoma (HCC)- Primary documented in this encounter [facility] note* Diagnosis Nonspecific ST-T wave electrocardiographic changes- Primary Nonspecific abnormal electrocardiogram (ECG) (EKG) Light chain (AL) amyloidosis (HCC) Dyspnea, unspecified documented in this encounter [facility] note* Diagnosis 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) [place]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) Other amyloidosis documented in this encounter [facility] note* Diagnosis 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) SINDI (acute kidney injury) (HCC) Acute kidney failure, unspecified documented in this encounter [facility] note* Diagnosis Nonspecific ST-T wave electrocardiographic changes- Primary Nonspecific abnormal electrocardiogram (ECG) (EKG) SOB (shortness of breath) Shortness of breath Elevated troponin level Other abnormal blood chemistry Decreased stamina Other malaise and fatigue Abnormal stress ECG Other nonspecific abnormal cardiovascular system function study documented in this encounter [facility] note* Diagnosis Acute on chronic heart failure with preserved ejection fraction (HFpEF) (HCC)- Primary documented in this encounter [facility] note* Diagnosis 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) SINDI (acute kidney injury) (HCC) Acute kidney failure, unspecified documented in this encounter [facility] note* Diagnosis 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) documented in this encounter [facility] note* Diagnosis 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) SINDI (acute kidney injury) (HCC) Acute kidney failure, unspecified [facility] Diagnosis Abnormal thyroid blood test Nonspecific abnormal results of thyroid function study documented in this encounter [facility] note* Diagnosis SOB (shortness of breath)- Primary Shortness of breath Acute on chronic heart failure with preserved ejection fraction (HFpEF) (HCC) SINDI (acute kidney injury) (HCC) Acute kidney failure, unspecified Stage 3b chronic kidney disease (HCC) NICM (nonischemic cardiomyopathy) (HCC) Other primary cardiomyopathies 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 [facility] encounter [facility] Diagnosis 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) SINDI (acute kidney injury) (HCC) Acute kidney failure, unspecified Stage 3b chronic kidney disease (HCC) AL amyloidosis (HCC) Other amyloidosis documented [facility] this encounter [facility]* Diagnosis Medicare annual wellness visit, subsequent- Primary Routine general [facility] examination at [facility] 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) Stage 3b chronic kidney disease (HCC) SINDI (acute kidney injury) (HCC) Acute kidney failure, unspecified AL amyloidosis (HCC) Other amyloidosis Abnormal thyroid blood test Nonspecific abnormal results of thyroid function study Anemia, unspecified type Bilateral leg edema Edema NICM (nonischemic cardiomyopathy) (HCC) Other primary cardiomyopathies BPH without obstruction/lower urinary tract symptoms Hypertrophy of prostate without urinary obstruction and other lower urinary tract symptoms (LUTS) Elevated LDL cholesterol level Pure hypercholesterolemia Elevated blood sugar Other abnormal glucose documented in this encounter [facility] Diagnosis NICM (nonischemic cardiomyopathy) (HCC)- Primary Other primary cardiomyopathies Acute on chronic heart failure with preserved ejection fraction (HFpEF) (HCC) NICM (nonischemic cardiomyopathy) (HCC) Other primary cardiomyopathies documented in this encounter [facility]* Diagnosis 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) SINDI (acute kidney injury) (HCC) Acute kidney failure, unspecified 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) Other amyloidosis NICM (nonischemic cardiomyopathy) (HCC) Other primary cardiomyopathies documented [facility] this encounter [facility]* Diagnosis 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) SINDI (acute kidney injury) (HCC) Acute kidney failure, unspecified Malaise and fatigue Other malaise and fatigue NICM (nonischemic cardiomyopathy) (HCC) Other primary cardiomyopathies [facility] AL amyloidosis (HCC)- Primary Other amyloidosis SOB (shortness of breath) Shortness of breath Acute on chronic heart failure with preserved ejection fraction (HFpEF) (HCC) [facility] 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) SINDI (acute kidney injury) (HCC) Acute kidney failure, unspecified [facility] Diagnosis Elevated hemoglobin A1c Other abnormal blood chemistry Hyperlipidemia, mixed Mixed hyperlipidemia [facility] Diagnosis 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) SINDI (acute kidney injury) (HCC) Acute kidney failure, unspecified [facility] Diagnosis [place]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)- Primary [place] amyloidosis (HCC) Other amyloidosis Stage 3b chronic kidney disease (HCC) [facility] Diagnosis 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) SINDI (acute kidney injury) (HCC) Acute kidney failure, unspecified [facility] Diagnosis [place] macroglobulinemia (HCC) Macroglobulinemia [facility] Diagnosis Unintended weight loss Loss of weight Fatigue, unspecified type Decreased stamina Other malaise and fatigue Lack of appetite Anorexia [facility] Diagnosis Unintended weight loss Loss of weight Fatigue, unspecified type Decreased stamina Other malaise and fatigue SOB (shortness of breath) Shortness of breath Lack of appetite Anorexia [facility]* Diagnosis Monoclonal (M) protein disease, multiple 'M' protein Monoclonal paraproteinemia [facility] Diagnosis Elevated hemoglobin A1c- Primary Other abnormal blood chemistry 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) SINDI (acute kidney injury) (HCC) Acute kidney failure, unspecified [facility] Diagnosis NICM (nonischemic cardiomyopathy) (HCC)- Primary Other primary cardiomyopathies Chronic heart failure with preserved ejection fraction (HFpEF) (HCC) Hyperlipidemia, mixed Mixed hyperlipidemia Stage 3b chronic kidney disease (HCC) 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) Other amyloidosis Bilateral leg edema Edema [facility] Diagnosis AL amyloidosis (HCC)- Primary Other amyloidosis [facility] encounter [facility] Diagnosis 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) SINDI (acute kidney injury) (HCC) Acute kidney failure, unspecified [facility] Diagnosis AL amyloidosis (HCC)- Primary Other 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 amyloidosis Renal amyloidosis (HCC) Other amyloidosis documented in this encounter [facility] Diagnosis 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) Other amyloidosis Cardiac amyloidosis (HCC) Other amyloidosis [facility] Diagnosis Encounter for education- Primary Counseling NOS documented in this encounter [facility] Diagnosis 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) Other amyloidosis [facility] Diagnosis Cardiac amyloidosis (HCC)- Primary Other amyloidosis 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) SINDI (acute kidney injury) (HCC) Acute kidney failure, unspecified Stage 3b chronic kidney disease (HCC) AL amyloidosis (HCC) Other amyloidosis [facility] Diagnosis Lymphoplasmacytic lymphoma (HCC)- Primary [facility] Diagnosis Chronic diastolic congestive heart failure (HCC)- Primary Chronic diastolic heart failure [facility] Diagnosis Amyloid kidney (HCC) (HCC)- Primary Other amyloidosis CKD (chronic kidney disease), stage IV (HCC) Chronic kidney disease, Stage IV (severe) Obstructive uropathy Urinary obstruction, unspecified [facility] Diagnosis 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) (HCC) Other amyloidosis Cardiac amyloidosis (HCC) Other amyloidosis [facility] Diagnosis Cardiac amyloidosis (HCC)- Primary Other amyloidosis 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) SINDI (acute kidney injury) (HCC) Acute kidney failure, unspecified [facility] Diagnosis Cardiac amyloidosis (HCC)- Primary Other amyloidosis 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) SINDI (acute kidney injury) (HCC) Acute kidney failure, unspecified documented [facility] encounter [facility] Diagnosis Cardiac amyloidosis (HCC)- Primary Other amyloidosis 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) SINDI (acute kidney injury) (HCC) Acute kidney failure, unspecified [facility] Diagnosis 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) (HCC) Other amyloidosis Cardiac amyloidosis (HCC) Other amyloidosis [facility] encounter [facility] Diagnosis HFrEF (heart failure with reduced ejection fraction) (HCC)- Primary Heart failure, unspecified documented in this encounter [facility]* Diagnosis Encounter for health education- Primary documented [facility] Diagnosis CKD (chronic kidney disease), stage V (HCC)- Primary Chronic kidney disease, Stage V Metabolic bone disease Other disorders of bone and cartilage documented in this [facility] Diagnosis Cardiac amyloidosis (HCC)- Primary Other amyloidosis 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) SINDI (acute kidney injury) (HCC) Acute kidney failure, unspecified documented in this encounter [facility]* Diagnosis 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) (HCC) Other amyloidosis Cardiac amyloidosis (HCC) Other amyloidosis documented [facility] Diagnosis Cardiac amyloidosis (HCC)- Primary Other amyloidosis 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) SINDI (acute kidney injury) (HCC) Acute kidney failure, unspecified documented in this [facility] Diagnosis Hyperlipidemia, mixed- Primary Mixed hyperlipidemia Elevated hemoglobin A1c Other abnormal blood chemistry AL amyloidosis (HCC) Other 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 amyloidosis Chronic diastolic congestive heart failure (HCC) Chronic diastolic heart failure NICM (nonischemic cardiomyopathy) (HCC) Other primary cardiomyopathies [place]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) CKD (chronic kidney disease) stage 5, GFR less than 15 ml/min (HCC) Chronic kidney disease, Stage V Secondary hyperparathyroidism, renal (HCC) Secondary hyperparathyroidism (of renal origin) Bilateral leg edema Edema Anemia, unspecified type Abnormal thyroid blood test Nonspecific abnormal results of thyroid function study Advance directive discussed with patient Other specified counseling Situational depression Adjustment disorder with depressed mood documented in this encounter [facility] Diagnosis Cardiac amyloidosis (HCC)- Primary Other amyloidosis 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) SINDI (acute kidney injury) (HCC) Acute kidney failure, unspecified documented in this encounter [facility] Diagnosis CKD (chronic kidney disease), stage V (HCC)- Primary Chronic kidney disease, Stage V documented in this encounter [facility]* Diagnosis CKD (chronic kidney disease), stage V (HCC)- Primary Chronic kidney disease, Stage V documented in this encounter [facility]* Diagnosis CKD (chronic kidney disease), stage V (HCC)- Primary Chronic kidney disease, Stage V CKD (chronic kidney disease), stage V (HCC) Chronic kidney disease, Stage V documented in this encounter [facility]* Diagnosis CKD (chronic kidney disease), stage V (HCC) Chronic kidney disease, Stage V CKD (chronic kidney disease), stage V (HCC) Chronic kidney disease, Stage V documented in this encounter [facility]* Diagnosis Encounter for immunization- Primary Need for other specified prophylactic vaccination against single bacterial disease CKD (chronic kidney disease), stage V (HCC) Chronic kidney disease, Stage V [facility] noteNo assessment information availableW[facility] Work Phone: Evaluation note* Diagnosis Light chain (AL) amyloidosis (HCC)- Primary documented in this encounter [facility]* Diagnosis 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) documented in this encounter [facility]* Diagnosis 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) Other amyloidosis [place]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) Other specified hypotension documented in this encounter [facility]* Diagnosis SINDI (acute kidney injury) (HCC)- Primary Acute kidney failure, unspecified 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) Other amyloidosis documented in this encounter [facility]* Diagnosis SINDI (acute kidney injury) (HCC)- Primary Acute kidney failure, unspecified 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) Other amyloidosis [facility] Diagnosis SINDI (acute kidney injury) (HCC)- Primary Acute kidney failure, unspecified 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) Other amyloidosis [facility] Diagnosis 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) Other amyloidosis [facility] Diagnosis SINDI (acute kidney injury) (HCC)- Primary Acute kidney failure, unspecified 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) Other amyloidosis [facility] Diagnosis CKD (chronic kidney disease) stage 5, GFR less than 15 ml/min (HCC)- Primary Chronic kidney disease, Stage V SINDI (acute kidney injury) (HCC) Acute kidney failure, unspecified 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) Other amyloidosis [facility] Diagnosis 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) CKD (chronic kidney disease) stage 5, GFR less than 15 ml/min (HCC) Chronic kidney disease, Stage V [facility]* Diagnosis Lymphocytic lymphoma (HCC)- Primary Lymphosarcoma, unspecified site, extranodal and solid organ sites documented [facility] Diagnosis SINDI (acute kidney injury) (HCC)- Primary Acute kidney failure, unspecified 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) Other amyloidosis [facility] Diagnosis AL amyloidosis (HCC)- Primary Other amyloidosis Chronic heart failure with preserved ejection fraction (HFpEF) (HCC) NICM (nonischemic cardiomyopathy) (HCC) Other primary cardiomyopathies Hyperlipidemia, mixed Mixed hyperlipidemia Chronic diastolic congestive heart failure (HCC) Chronic diastolic heart failure Cardiac amyloidosis (HCC) Other amyloidosis ESRD (end stage renal disease) (HCC) End stage renal disease 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) [facility]* Diagnosis Lymphocytic lymphoma (HCC)- Primary Lymphosarcoma, unspecified site, extranodal and solid organ sites documented [facility]* Diagnosis 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) Other amyloidosis documented in this encounter [facility]* Diagnosis Lymphoplasmacytic lymphoma (HCC)- Primary Cardiomyopathy, unspecified type (HCC) documented in this encounter [facility]* Diagnosis Lymphocytic lymphoma (HCC)- Primary Lymphosarcoma, unspecified site, extranodal and solid organ sites documented [facility]* Diagnosis Lymphocytic lymphoma (HCC)- Primary Lymphosarcoma, unspecified site, extranodal and solid organ sites documented in this encounter [facility]* Diagnosis Encounter for Medicare annual wellness exam- Primary Routine general medical examination at a [facility] Elevated hemoglobin A1c Other abnormal blood chemistry Chronic diastolic congestive heart failure (HCC) Chronic diastolic heart failure Hyperlipidemia, mixed Mixed hyperlipidemia documented in this encounter [facility]* Diagnosis Medicare annual wellness visit, subsequent- Primary Routine general medical examination at a health care facility Hyperlipidemia, mixed Mixed hyperlipidemia Elevated hemoglobin A1c Other abnormal blood chemistry Abnormal thyroid blood test Nonspecific abnormal results of thyroid function study Bilateral leg edema Edema AL amyloidosis (HCC) Other amyloidosis Cardiac amyloidosis (HCC) Other amyloidosis Chronic diastolic congestive heart failure (HCC) Chronic diastolic heart failure NICM (nonischemic cardiomyopathy) (HCC) Other primary cardiomyopathies CKD (chronic kidney disease) stage 5, GFR less than 15 ml/min (HCC) Chronic kidney disease, Stage V ESRD (end stage renal disease) (HCC) End stage renal disease Secondary hyperparathyroidism, renal (HCC) Secondary hyperparathyroidism (of renal origin) [place]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Anemia, unspecified type Benign prostatic hyperplasia with urinary obstruction Dysfunction of left eustachian tube Dysfunction of Eustachian tube Encounter for screening examination for other mental health and behavioral disorders Encounter for immunization Need for other specified prophylactic vaccination against single bacterial disease documented in this encounter [facility]* Diagnosis Elevated hemoglobin A1c- Primary Other abnormal blood chemistry Hyperlipidemia, mixed Mixed hyperlipidemia Abnormal thyroid blood test Nonspecific abnormal results of thyroid function study Prediabetes Other abnormal glucose documented in this encounter [facility]* Diagnosis Lymphocytic lymphoma (HCC)- Primary Lymphosarcoma, unspecified site, extranodal and solid organ sites documented [facility]* Diagnosis 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) Other amyloidosis Cardiac amyloidosis (HCC) Other amyloidosis documented in [facility]* Diagnosis AL amyloidosis (HCC)- Primary Other amyloidosis Heart failure with preserved ejection fraction, unspecified HF chronicity (HCC) Cardiomyopathy, unspecified type (HCC) Abnormal EKG Nonspecific abnormal electrocardiogram (ECG) (EKG) documented in this encounter [facility] note* Diagnosis 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) documented in this encounter [facility] note* Diagnosis Lymphocytic lymphoma (HCC)- Primary Lymphosarcoma, unspecified site, extranodal and solid organ sites documented in this encounter [facility] note* Diagnosis Lymphocytic lymphoma (HCC)- Primary Lymphosarcoma, unspecified site, extranodal and solid organ sites documented in this encounter [facility] note* Diagnosis 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) Other amyloidosis documented in this encounter [facility] note* Diagnosis Lymphocytic lymphoma (HCC)- Primary Lymphosarcoma, unspecified site, extranodal and solid organ sites documented in this encounter [facility] note* Diagnosis Cardiac amyloidosis (HCC)- Primary Other amyloidosis Chronic diastolic congestive heart failure (HCC) Chronic diastolic heart failure NICM (nonischemic cardiomyopathy) (HCC) Other primary cardiomyopathies Hyperlipidemia, mixed Mixed hyperlipidemia ESRD (end stage renal disease) (HCC) End stage renal disease 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 documented in this encounter [facility] note* Diagnosis 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) Other amyloidosis documented in [facility]* Diagnosis Lymphocytic lymphoma (HCC)- Primary Lymphosarcoma, unspecified site, extranodal and solid organ sites documented in this encounter [facility] Discharge instructions Additional Instructions Plenty of fluids and rest. Continue your current medications and treatments. Follow-up with either Dr. Hugo or your primary care physician Dr. Rodriguez as needed or return if worse.[facility] Work Phone: Reason for referral (narrative)* Diagnostic Procedure Only (Routine) - Authorized Specialty Diagnoses / Procedures Referred By Contac t Referred To Contact XR IMAGING Diagnoses Monoclonal (M) protein disease, multiple 'M' protein Procedures XR BONE SURVEY ROUTINE RADIOLOGIC EXAMINATION OSSEOUS SURVEY COMPL Jose Hugo DO [address] [place] [address] Xr Imaging Referral ID Status Reason Start Date Expiration Date Visits Requested Visits Authorized [id number] Authorized Auto-Generat ed Referral 04/05/2023 05/04/2024 1 1 * Consult, Test, Treat (Routine) - Pending Review Specialty Diagnoses / Procedures Referred By Contac t Referred To Contact Diagnoses Monoclonal (M) protein disease, multiple 'M' protein Procedures CONSULT TO HEMATOLOGY/ONCOLOGY OFFICE/OUTPATIENT [facility] 60-74 MINUTES Jose Miguel Herbert MD [address] [place] [address] Referral ID Status Reason Start Date Expiration Date Visits Requested Visits Authorized [id number] Pending Review PCP Requested Referral 04/04/2023 04/03/2024 1 1 [facility] for referral (narrative)* Outpatient Procedure (Routine) - Pending Review Specialty Diagnoses / Procedures Referred By Contac t Referred To Contact [facility] Diagnoses Acute on chronic heart failure with preserved ejection fraction (HFpEF) ([facility]) Procedures ECG COMPLETE ECG ROUTINE ECG W/LEAST 12 LDS W/I&R Chester Patel MD [address] [place] [address] [facility] [place] [address] [place] [address] Referral ID Status Reason Start Date Expiration Date Visits Requested Visits Authorized [id number] Pending Review Auto-Generat ed Referral 04/27/2023 04/26/[address] [facility] for referral (narrative)* Outpatient Procedure (Routine) - Pending Review Specialty Diagnoses / Procedures [facility] Diagnoses SOB (shortness of breath) Acute on chronic heart failure with preserved ejection fraction (HFpEF) (HCC) Procedures ECHO ECHO TTHRC R-T 2D W/WOM-MODE COMPL SPEC&COLR D Chester Patel MD [address] [place] [address] [facility] [place] [address] [place] [address] Referral ID Status Reason Start Date Expiration Date Visits Requested Visits Authorized [id number] Pending Review Auto-Generat ed Referral 05/02/2023 05/01/[address] [facility] for referral (narrative)* Diagnostic Procedure Only (Routine) - Closed Specialty Diagnoses / Procedures [facility] Referred To Contact US IMAGING Diagnoses Unintended weight loss Fatigue, unspecified type Decreased stamina Lack of appetite Procedures US ABDOMEN COMPLETE US ABDOMINAL REAL TIME W/IMAGE DOCUMENTATION Jose Miguel Herbert MD [address] [place] [address] [place] [address] Referral ID Status Reason Start Date Expiration Date V isits Requested Visits Authorized [id number] Closed Auto-Generate d Referral 03/23/2023 04/21/[address] [facility] for referral (narrative)* Diagnostic Procedure Only (Routine) - Closed Specialty Diagnoses / Procedures [facility] Referred To Contact XR IMAGING Diagnoses Monoclonal (M) protein disease, multiple 'M' protein Procedures XR BONE SURVEY ROUTINE RADIOLOGIC EXAMINATION OSSEOUS SURVEY COMPL Jose Hugo DO [address] [place] [address] [place] [address] Referral ID Status Reason Start Date Expiration Date V isits Requested Visits Authorized [id number] Closed Auto-Generate d Referral 04/05/2023 05/04/[address] [facility] for referral (narrative)* Outpatient Procedure (Routine) - Authorized Specialty Diagnoses / Procedures Referred By Contac t Referred To Contact [facility] Diagnoses NICM (nonischemic cardiomyopathy) (HCC) Chronic heart failure with preserved ejection fraction (HFpEF) (HCC) Procedures ECG COMPLETE ECG ROUTINE ECG W/LEAST 12 LDS W/I&R Chester Patel MD [address] [place] [address] [facility] [place] [address] Referral ID Status Reason Start Date Expiration Date Visits Requested Visits Authorized [id number] Authorized Auto-Generat ed Referral 3 07/30/2024 1 1 * Outpatient Procedure (Routine) - Authorized Specialty Diagnoses / Procedures Referred By Contac t Referred To Contact [facility] Diagnoses NICM (nonischemic cardiomyopathy) (HCC) Chronic heart failure with preserved ejection fraction (HFpEF) (HCC) Procedures ECHO ECHO TTHRC R-T 2D W/WOM-MODE COMPL SPEC&COLR D Chester Patel MD [address] [address] [facility] [place] [id number] Referral ID Status Reason Start Date Expiration Date Visits Requested Visits Authorized [id number] Authorized Auto-Generat ed Referral 3 07/30/2024 1 1 * Transition of Care (Routine) - Ref Not Required Specialty Diagnoses / Procedures Referred By Contac t Referred To Contact Diagnoses NICM (nonischemic cardiomyopathy) (HCC) Chronic heart failure with preserved ejection fraction (HFpEF) (HCC) Procedures CARDIOVASCULAR MEDICINE OP FOLLOW UP APPT ORDER Chester Patel MD [address] [place] [address] Referral ID Status Reason Start Date Expiration Date Visits Requested Visits Authorized [id number] Ref Not Required PCP Requested Referral 3 07/30/[address] [facility] for referral (narrative)* Diagnostic Procedure Only (Routine) - Pending Review Specialty Diagnoses / Procedures Referred By Contac t Referred To Contact XR IMAGING Diagnoses CKD (chronic kidney disease), stage V (HCC) Procedures XR CHEST 1V FRONTAL RADIOLOGIC EXAM [place] [address] [place] [address] [id number] Referral ID Status Reason Start Date Expiration Date Visits Requested Visits Authorized [id number] Pending Review Auto-Generat ed Referral 12/05/2023 01/03/[address] [facility] for referral (narrative)* Outpatient Procedure (Routine) - New Request Specialty Diagnoses / Procedures Referred By Contac t Referred To Contact [facility] Diagnoses AL amyloidosis (HCC) Chronic heart failure with preserved ejection fraction (HFpEF) (HCC) Procedures ECG COMPLETE ECG ROUTINE ECG W/LEAST 12 LDS W/I&R Chester Patel MD [address] [place] [address] [facility] [place] [address] Referral ID Status Reason Start Date Expiration Date Visits Requested Visits Authorized [id number] New Request Auto-Generat ed Referral 04/09/2024 04/09/2025 1 1 * Transition of Care (Routine) - Ref Not Required Specialty Diagnoses / Procedures Referred By Contac t Referred To Contact [facility] Diagnoses AL amyloidosis (HCC) Chronic heart failure with preserved ejection fraction (HFpEF) (HCC) Procedures CARDIOVASCULAR MEDICINE OP FOLLOW UP APPT ORDER Chester Patel MD [address] [place] [address] [facility] [address] [place] [address] Referral ID Status Reason Start Date Expiration Date Visits Requested Visits Authorized [id number] Ref Not Required PCP Requested Referral 10/10/2024 04/09/[address] [facility] for referral (narrative)No reason for referral information availableW[facility] Work Phone: Reason for visit Narrative* Diagnostic Procedure Only (Routine) - Closed Specialty Diagnoses / Procedures Referred By Contac t Referred To Contact XR IMAGING Diagnoses Monoclonal (M) protein disease, multiple 'M' protein Procedures XR BONE SURVEY ROUTINE RADIOLOGIC EXAMINATION OSSEOUS SURVEY COMPL Jose Hugo, DO [address] [place] [address] [place] [address] Referral ID Status Reason Start Date Expiration Date V isits Requested Visits Authorized [id number] Closed Auto-Generate d Referral 04/05/2023 05/04/[address] [facility] for visit Narrative* Diagnostic Procedure Only (Routine) - Closed Specialty Diagnoses / Procedures Referred By Contac t Referred To Contact XR IMAGING Diagnoses CKD (chronic kidney disease), stage V (HCC) Procedures XR CHEST 1V FRONTAL RADIOLOGIC EXAM CHEST [place] [address] [place] [address] [place] [address] Referral ID Status Reason Start Date Expiration Date V isits Requested Visits Authorized [id number] Closed Auto-Generate d Referral 12/05/2023 01/03/2025 1 1 [facility] Advance Directives No Advanced Directives Records FoundDocuments on File Type Date Recorded Patient Logistic Manager Expl anation Advance Directive(s) 02/01/2022 3:52 PM Date Activated Date Inactivated Comments 08/25/2023 9:48 PM 09/19/2023 11:33 PM Question Answer Comments Full Code Order Discussed With: Patient Documents on File Type Date Recorded Patient Logistic Manager Expl anation Advance Directive(s) 06/07/2018 7:34 AM Advance Directive(s) 05/12/2015 11:48 AM Advance Directive Response Recorded Date/ Time Living Will Yes March 17, 2023 11:09am Power of Welding Machine Operator Friction Yes March 17 11:09am Name of Medical Power of Welding Machine Operator Friction Bari Betancur March 17, 2023 11:09am Advance Directive Response Recorded Date/ Time Name of Medical Power of Welding Machine Operator Friction Bari Betancur March 17, 2023 2:21pm Living Will Yes March 17, 2023 2:21pm Power of Welding Machine Operator Friction Yes March 17 2:21pm Documents on File Type Date Recorded Patient Logistic Manager Expl anation Advance Directive(s) 02/01/2022 3:52 PM Latest Code Status on File Code Status Date Activated Date Inactivated Comments Full Code 08/25/2023 9:48 PM Question Answer Comments Full Code Order Discussed With: Patient Latest Code Status on File Code Status Date Activated Date Inactivated Comments Full Code 08/25/2023 9:48 PM 09/19/2023 11:33 PM Question Answer Comments Full Code Order Discussed With: Patient Latest Code Status on File Code Status Date Activated Date Inactivated Comments Full Code 08/25/2023 9:48 PM 09/19/2023 11:33 PM Question Answer Comments Full Code Order Discussed With: Patient Latest Code Status on File Code Status Date Activated Date Inactivated Comments Full Code 08/25/2023 9:48 PM 09/19/2023 11:33 PM Question Answer Comments Full Code Order Discussed With: Patient Latest Code Status on File Code Status Date Activated Date Inactivated Comments Full Code 08/25/2023 9:48 PM 09/19/2023 11:33 PM Question Answer Comments Full Code Order Discussed With: Patient Date Activated Date Inactivated Comments 08/25/2023 9:48 PM 09/19/2023 11:33 PM Question Answer Comments Full Code Order Discussed With: Patient Advance Directive Response Recorded Date/ Time Living Will Yes December 15, 2023 12:33pm Power of Welding Machine Operator Friction Yes December 14 12:33pm Name of Medical Power of Welding Machine Operator Friction molly betancur December 15, 2023 12:33pm Advance Directive Response Recorded Date/ Time Name of Medical Power of Welding Machine Operator Friction molly betancur December 15, 2023 12:33pm Living Will No December 18, 2023 10:41am Power of Welding Machine Operator Friction No December 17 10:41am Advance Directive Response Recorded Date/ Time Living Will Yes December 31, 2024 9:16am Do you have a Healthcare Power of Welding Machine Operator Friction? Yes December 31, 2024 9:16am Name of Medical Power of Welding Machine Operator Friction BARI TOWNSEND December 31, 2024 9:16am Chief Complaint and Reason for Visit Chief Complaint SINDI, ELEVATED TROPON IN Reason for Visit Acute kidney injury Anemia Elevated troponin Exertional dyspnea Chief Complaint SINDI, ELEVATED TROPON IN SINDI, ELEVATED TROPONIN SINDI, ELEVATED TROPONIN Reason for Visit Acute kidney injury Anemia Creatinine elevation Elevated troponin Exertional dyspnea Chief Complaint SINDI, ELEVATED TROPON IN SINDI, ELEVATED TROPONIN SINDI, ELEVATED TROPONIN THRUSH DECREASED STAMINA DECREASED STAMINA Reason for Visit Creatinine elevation Elevated troponin Chief Complaint hypotension Chief Complaint hypotension weakness Chief Complaint Admit Date PRE OP END STAGE RENAL DISEASE September 192024 12:30pm Discuss vein mapping November 07, 2024 2:07pm Left Upper Arm Arteriovenous Graft With Cadaver Cr January 14, 2025 9:09am Left Upper Arm Arteriovenous Graft With Cadaver Cr January 14, 2025 1:26pm Reason for Visit Admit Date ESRD (end stage renal disease) on dialys is November 07, 2024 2:07pm ESRD (end stage renal disease) on dialys is January 14, 2025 9:09am Chief Complaint Admit Date PRE OP END STAGE RENAL DISEASE September 192024 12:30pm Discuss vein mapping November 07, 2024 2:07pm Left Upper Arm Arteriovenous Graft With Cadaver Cr January 14, 2025 9:09am Left Upper Arm Arteriovenous Graft With Cadaver Cr January 14, 2025 1:26pm Post LUE AV Graft 2-3 WK FU January 28 9:40am Chief Complaint Admit Date Discuss vein mapping November 07, 2024 2:07pm Left Upper Arm Arteriovenous Graft With Cadaver Cr January 14, 2025 9:09am Left Upper Arm Arteriovenous Graft With Cadaver Cr January 14, 2025 1:26pm Post LUE AV Graft 2-3 WK FU January 28 9:40am 2 WK FU February 13, 2025 10:22 am Reason for Visit Admit Date ESRD (end stage renal disease) on dialys is November 07, 2024 2:07pm ESRD (end stage renal disease) on dialys is January 14, 2025 9:09am Hemodialysis access, AV graft January 28, 2025 9:40am Hemodialysis access, AV graft February 13, 2025 10:22am Family History No Family History Records Found Relationship Condition Age at Onset Recorded Date/T bolivar father Cardiac disease Unknown Presence of cardiac pacemaker Unknown Malignant neoplasm Unknown sister Malignant neoplasm Unknown Reason for Referral Specialty Diagnoses / Procedures Referred By Contac t Referred To Contact Ent - Otolaryngology Diagnoses Black hairy tongue Altered taste Hoarseness of voice Procedures CONSULT TO ENT OFFICE/OUTPATIENT [facility] 60-[place] [address] [place] [id number] Referral ID Status Reason Start Date Expiration Date Visits Requested Visits Authorized [id number] Pending Review PCP Requested Referral 03/23/2023 03/22/2024 1 1 Specialty Diagnoses / Procedures Referred By Contac t Referred To Contact US IMAGING Diagnoses Unintended weight loss Fatigue, unspecified type Decreased stamina Lack of appetite Procedures US ABDOMEN COMPLETE US ABDOMINAL REAL TIME W/IMAGE DOCUMENTATION Jose Miguel Herbert MD [address] [place] [address] Us Imaging Referral ID Status Reason Start Date Expiration Date Visits Requested Visits Authorized [id number] Authorized Auto-Generat ed Referral 03/23/2023 04/21/2024 1 1 Specialty Diagnoses / Procedures Referred By Contac t Referred To Contact CT IMAGING Diagnoses Unintended weight loss Fatigue, unspecified type Decreased stamina SOB (shortness of breath) Lack of appetite Procedures CT CHEST WO IVCON DIAGNOSTIC COMPUTED TOMOGRAPHY THORAX W/O CNTRST Jose Miguel Herbert MD [facility] [place] [address] Ct Imaging Referral ID Status Reason Start Date Expiration Date Visits Requested Visits Authorized [id number] Authorized Auto-Generat ed Referral 03/23/2023 2023 1 1 Specialty Diagnoses / Procedures Referred By Contact Referred To Contact MOLECULAR & FUNCTIONAL IMAGING Diagnoses Decreased stamina Elevated troponin level SOB (shortness of breath) Nonspecific ST-T wave electrocardiographic changes Procedures NM CARDIAC PERF STRESS/PHARM MYOCARDIAL SPECT MULTIPLE STUDIES Jose Miguel Herbert MD [address] [place] [address] Molecular & Functional Imaging [address] [id number] Referral ID Status Reason Start Date Expiration Date Visits Requested Visits Authorized [id number] Pending Review Auto-Generat ed Referral 03/23/2023 04/21/2024 1 1 Specialty Diagnoses / Procedures Referred By Contac t Referred To Contact [facility] Diagnoses SOB (shortness of breath) Procedures SPIROMETRY - BASELINE AND POST DILATOR BRNCDILAT RSPSE SPMTRY PRE&POST-BRNCDILAT ADMN Jose Miguel Herbert MD [address] [place] [address] Res[facility] [place] [address] [place] [address] Referral ID Status Reason Start Date Expiration Date Visits Requested Visits Authorized [id number] Authorized Auto-Generat ed Referral 03/23/2023 04/21/2024 1 1 Specialty Diagnoses / Procedures Referred By Contac t Referred To Contact CT IMAGING Diagnoses [place] macroglobulinemia (HCC) Procedures CT ABD/PEL WO IVCON CT ABD & PELVIS W/O CONTRAST Jose Hugo, DO [address] [place] [address] Ct Imaging Referral ID Status Reason Start Date Expiration Date V isits Requested Visits Authorized [id number] Open Auto-Generate d Referral 04/06/2023 05/05/2024 1 1 Specialty Diagnoses / Procedures Referred By Contac t Referred To Contact Cardiology Diagnoses Nonspecific ST-T wave electrocardiographic changes SOB (shortness of breath) Elevated troponin level Decreased stamina Abnormal stress ECG Procedures CONSULT TO CARDIOLOGY OFFICE/OUTPATIENT NEW [facility] MDM 60-74 MINUTES Jose Miguel Herbert MD [address] [place] [address] Referral ID Status Reason Start Date Expiration Date Visits Requested Visits Authorized [id number] Authorized PCP Requested Referral 04/26/2023 04/25/2024 1 1 Specialty Diagnoses / Procedures Referred By Contac t Referred To Contact Endocrinology Diagnoses Abnormal thyroid blood test Procedures CONSULT TO ENDOCRINOLOGY OFFICE/OUTPATIENT [facility] MDM 60-74 MINUTES Jose Miguel Herbert MD [address] [place] [address] Referral ID Status Reason Start Date Expiration Date Visits Requested Visits Authorized [id number] Authorized PCP Requested Referral 05/08/2023 05/07/2024 1 1 Specialty Diagnoses / Procedures Referred By Contac t Referred To Contact Nephrology Diagnoses [place]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) [place] amyloidosis (HCC) Stage 3b chronic kidney disease (HCC) Procedures CONSULT TO NEPHROLOGY OFFICE/OUTPATIENT [facility] 60-74 MINUTES Jose Hugo, [address] [place] [address] Referral ID Status Reason Start Date Expiration Date Visits Requested Visits Authorized [id number] Authorized PCP Requested Referral 07/17/2024 1 1 Specialty Diagnoses / Procedures Referred By Contac t Referred To Contact CT IMAGING Diagnoses Waldenstrom macroglobulinemia (HCC) Procedures CT ABD/PEL WO IVCON CT ABD & PELVIS W/O CONTRAST Jose Hugo DO [address] [place] [address] [place] [id number] Referral ID Status Reason Start Date Expiration Date V isits Requested Visits Authorized [id number] Closed Auto-Generate d Referral 04/06/2023 05/05/2024 1 1 Specialty Diagnoses / Procedures Referred By Contac t Referred To Contact CT IMAGING Diagnoses Unintended weight loss Fatigue, unspecified type Decreased stamina SOB (shortness of breath) Lack of appetite Procedures CT CHEST WO IVCON DIAGNOSTIC COMPUTED TOMOGRAPHY THORAX W/O CNTRST Jose Miguel Herbert MD [address] [place] [address] [place] [id number] Referral ID Status Reason Start Date Expiration Date V isits Requested Visits Authorized [id number] Closed Auto-Generate d Referral 03/23/2023 2023 1 1 Specialty Diagnoses / Procedures Referred By Contac t Referred To Contact [facility] Procedures CARDIOVASCULAR MEDICINE OP FOLLOW UP APPT ORDER Talia Russell APRN.PRODUCT INTRODUCTION MANAGER [address] [place] [address] [facility] [place] [address] [place] [address] Referral ID Status Reason Start Date Expiration Date Visits Requested Visits Authorized [id number] Ref Not Required PCP Requested Referral 11/16/2023 11/15/2024 1 1 Specialty Diagnoses / Procedures Referred By Contac t Referred To Contact Diagnoses HFrEF (heart failure with reduced ejection fraction) (HCC) Procedures CONSULT TO PALLIATIVE CARE OFFICE/OUTPATIENT [facility] 60 MINUTES Talia Russell APRN.PRODUCT INTRODUCTION MANAGER [address] [place] [address] Referral ID Status Reason Start Date Expiration Date Visits Requested Visits Authorized [id number] Authorized PCP Requested Referral 11/23/2023 11/15/2024 1 1 Specialty Diagnoses / Procedures Referred By Contac t Referred To Contact Vascular Surgery Diagnoses CKD (chronic kidney disease), stage V (HCC) Procedures CONSULT TO VASCULAR SURGERY OFFICE/OUTPATIENT [facility] 60 [place] [address] [place] [address] [place] [address] [place] [address] Referral ID Status Reason Start Date Expiration Date Visits Requested Visits Authorized [id number] Authorized PCP Requested Referral 11/24/2023 11/23/2024 1 1 Specialty Diagnoses / Procedures Referred By Contac t Referred To Contact Cardiology Diagnoses Cardiomyopathy, unspecified type (HCC) Procedures CONSULT TO CARDIOLOGY OFFICE/OUTPATIENT [facility] 60 MINUTES Jose Hugo DO [address] [facility] [place] [address] Referral ID Status Reason Start Date Expiration Date Visits Requested Visits Authorized [id number] Authorized PCP Requested Referral 06/13/2024 06/13/2025 1 1 Medications Administered Section Inactive Administered Medications - up to 3 most recent administrations Medication Order MAR Action Action Date Dose Rate Site acetaminophen 650 mg tab(s) (TYLENOL) 650 mg, ORAL, ONCE, 1 dose, On Mon04/26/23 at 0800, Give 30 minutes prior to infusion. No more than 4000 mg of acetaminophen should be given per day (FROM ALL SOURCES), If ordered PRN for pain, patient/guardian may elect to receive this medication for higher pain levels INSTEAD of the opioid, if preferred: N/A Given 04/26/2023 8:07 AM EDT 650 mg bortezomib 2.53 mg in NaCl 0.9% (VELCADE) 2.53 mg (rounded from 2.528 mg = 1.6 mg/m2 1.58 m2 Treatment Plan BSA from Recorded weight), SUBCUTANEOUS, ONCE, 1 dose, On Mon04/26/23 at 0800, exp 1630 04/26/23 (room temp) - DO NOT SHAKE - Hazardous Chemotherapy Drug: Use appropriate PPE. FATAL IF GIVEN INTRATHECALLY. Given 04/26/2023 11:48 AM EDT 2.53 mg Abdominal Tissue dexAMETHasone 40 mg tab(s) (DECADRON) 40 mg, ORAL, ONCE, 1 dose, On Mon04/26/23 at 0800 Given 04/26/2023 8:06 AM EDT 40 mg diphenhydrAMINE 50 mg (BENADRYL) 50 mg, ORAL, ONCE, 1 dose, On Mon04/26/23 at 0800, Give 30 minutes prior to infusion. Given 04/26/2023 8:07 AM EDT 50 mg riTUXimab-pvvr 592.5 mg in NaCl 0.9% 334.25 mL (RUXIENCE) 592.5 mg (375 mg/m2 1.58 m2 Treatment Plan BSA from Recorded weight), INTRAVENOUS, ONCE, 1 dose, On Mon04/26/23 at 0800, exp 0830 04/27/23 (room temp) -Infuse at rate of 50mg/hr. If no hypotension, increase rate every 30 minutes by 50mg/hr to a maximum rate of 400mg/hr. Refrigerate. Rate/Dose Change 04/26/2023 11:34 AM EDT 204 mL/hr Rate/Dose Change 04/26/2023 11:06 AM EDT 175 mL /hr Rate/Dose Change 04/26/2023 10:36 AM EDT 146 mL /hr Inactive Administered Medications - up to 3 most recent administrations Medication Order MAR Action Action Date Dose Rate Site acetaminophen 650 mg tab(s) (TYLENOL) 650 mg, ORAL, ONCE, 1 dose, On Mon05/03/23 at 0830, Give 30 minutes prior to infusion. No more than 4000 mg of acetaminophen should be given per day (FROM ALL SOURCES), If ordered PRN for pain, patient/guardian may elect to receive this medication for higher pain levels INSTEAD of the opioid, if preferred: N/A Given 05/03/2023 8:17 AM EDT 650 mg bortezomib 2.53 mg in NaCl 0.9% (VELCADE) 2.53 mg (rounded from 2.528 mg = 1.6 mg/m2 1.58 m2 Treatment Plan BSA from Recorded weight), SUBCUTANEOUS, ONCE, 1 dose, On Mon05/03/23 at 0830, - EXP: 05/03/23 1700 - DO NOT SHAKE - Hazardous Chemotherapy Drug: Use appropriate PPE. FATAL IF GIVEN INTRATHECALLY. Given 05/03/2023 9:05 AM EDT 2.53 mg Abdominal Tissue dexAMETHasone sodium phosphate 40 mg in NaCl 0.9% 50 mL 40 mg, INTRAVENOUS, Administer over 30 Minutes, ONCE, 1 dose, On Mon05/03/23 at 0830, Refrigerate. New Bag/Syringe/Fabrice le 05/03/2023 8:33 AM EDT 40 mg diphenhydrAMINE 50 mg (BENADRYL) 50 mg, ORAL, ONCE, 1 dose, On Mon05/03/23 at 0830, Give 30 minutes prior to infusion. Given 05/03/2023 8:17 AM EDT 50 mg riTUXimab-pvvr 592.5 mg in NaCl 0.9% 599.25 mL (RUXIENCE) 592.5 mg (375 mg/m2 1.58 m2 Treatment Plan BSA from Recorded weight), INTRAVENOUS, ONCE, 1 dose, On Mon05/03/23 at 0830, EXP: 05/04/23 0845 Initiate infusion at a rate of 100 mg/hr. In the absence of infusion toxicity, increase rate by 100 mg/hr increments at 30-minute intervals, to a maximum of 400 mg/hr Refrigerate. Rate/Dose Change 05/03/2023 10:43 AM EDT Rate/Dose Change 05/03/2023 10:13 AM EDT 300 mL /hr Rate/Dose Change 05/03/2023 9:40 AM EDT 200 mL/ hr Inactive Administered Medications - up to 3 most recent administrations Medication Order MAR Action Action Date Dose Rate Site acetaminophen 650 mg tab(s) (TYLENOL) 650 mg, ORAL, ONCE, 1 dose, On Mon05/18/23 at 0800, Give 30 minutes prior to infusion. No more than 4000 mg of acetaminophen should be given per day (FROM ALL SOURCES), If ordered PRN for pain, patient/guardian may elect to receive this medication for higher pain levels INSTEAD of the opioid, if preferred: N/A Given 05/18/2023 7:57 AM EDT 650 mg dexAMETHasone 40 mg tab(s) (DECADRON) 40 mg, ORAL, ONCE, 1 dose, On Mon05/18/23 at 0800 Given 05/18/2023 7:58 AM EDT 40 mg diphenhydrAMINE 50 mg (BENADRYL) 50 mg, ORAL, ONCE, 1 dose, On Mon05/18/23 at 0800, Give 30 minutes prior to infusion. Given 05/18/2023 7:57 AM EDT 50 mg riTUXimab-pvvr 592.5 mg in NaCl 0.9% 250 mL (RUXIENCE) 592.5 mg (375 mg/m2 1.58 m2 Treatment Plan BSA from Recorded weight), INTRAVENOUS, ONCE, 1 dose, On Mon05/18/23 at 0800, Exp 06/01/23 (refrigerated) Total Volume = 250 ml Infuse 50 ml over 30 minutes then 200 ml over 60 minutes. Refrigerate. New Bag/Syringe/Bottle 05/18/2023 8:20 AM EDT 592.5 mg Inactive Administered Medications - up to 3 most recent administrations Medication Order MAR Action Action Date Dose Rate Site bortezomib 2.53 mg in NaCl 0.9% (VELCADE) 2.53 mg (rounded from 2.528 mg = 1.6 mg/m2 1.58 m2 Treatment Plan BSA from Recorded weight), SUBCUTANEOUS, ONCE, 1 dose, On Mon05/24/23 at 1000, exp 1600 05/24/23 (room temp) - DO NOT SHAKE - Hazardous Chemotherapy Drug: Use appropriate PPE. FATAL IF GIVEN INTRATHECALLY. Given 05/24/2023 10:38 AM EDT 2.53 mg Abdominal Tissue dexAMETHasone 40 mg tab(s) (DECADRON) 40 mg, ORAL, ONCE, 1 dose, On Mon05/24/23 at 1000 Given 05/24/2023 10:20 AM EDT 40 mg NaCl 0.9% iv bolus 500 mL 500 mL, INTRAVENOUS, at 250 mL/hr, Administer over 2 Hours, ONCE, 1 dose, On Mon05/24/23 at 1100 New Bag/Syringe/Bot tle 05/24/2023 10:30 AM EDT 500 mL 250 mL/hr Inactive Administered Medications - up to 3 most recent administrations Medication Order MAR Action Action Date Dose Rate Site bortezomib 2.53 mg in NaCl 0.9% (VELCADE) 2.53 mg (rounded from 2.528 mg = 1.6 mg/m2 1.58 m2 Treatment Plan BSA from Recorded weight), SUBCUTANEOUS, ONCE, 1 dose, On Mon05/31/23 at 0900, exp 17005/31/23 (room temp) - DO NOT SHAKE - Hazardous Chemotherapy Drug: Use appropriate PPE. FATAL IF GIVEN INTRATHECALLY. Given 05/31/2023 9:21 AM EDT 2.53 mg Abdominal Tissue dexAMETHasone 40 mg tab(s) (DECADRON) 40 mg, ORAL, ONCE, 1 dose, On Mon05/31/23 at 0900 Given 05/31/2023 8:46 AM EDT 40 mg Inactive Administered Medications - up to 3 most recent administrations Medication Order MAR Action Action Date Dose Rate Site bortezomib 2.53 mg in NaCl 0.9% (VELCADE) 2.53 mg (rounded from 2.528 mg = 1.6 mg/m2 1.58 m2 Treatment Plan BSA from Recorded weight), SUBCUTANEOUS, ONCE, 1 dose, On Mon06/07/23 at 0900, exp 17006/07/23 (room temp) - DO NOT SHAKE - Hazardous Chemotherapy Drug: Use appropriate PPE. FATAL IF GIVEN INTRATHECALLY. Given 06/07/2023 9:35 AM EDT 2.53 mg Abdominal Tissue dexAMETHasone 40 mg tab(s) (DECADRON) 40 mg, ORAL, ONCE, 1 dose, On Mon06/07/23 at 0900 Given 06/07/2023 8:57 AM EDT 40 mg Inactive Administered Medications - up to 3 most recent administrations Medication Order MAR Action Action Date Dose Rate Site bortezomib 2.53 mg in NaCl 0.9% (VELCADE) 2.53 mg (rounded from 2.528 mg = 1.6 mg/m2 1.58 m2 Treatment Plan BSA from Recorded weight), SUBCUTANEOUS, ONCE, 1 dose, On Mon06/28/23 at 0830, exp 0800 06/28/23 (room temp) - DO NOT SHAKE - Hazardous Chemotherapy Drug: Use appropriate PPE. FATAL IF GIVEN INTRATHECALLY. Given 06/28/2023 8:39 AM EDT 2.53 mg Abdominal Tissue dexAMETHasone 40 mg tab(s) (DECADRON) 40 mg, ORAL, ONCE, 1 dose, On Mon06/28/23 at 0830 Given 06/28/2023 8:36 AM EDT 40 mg Inactive Administered Medications - up to 3 most recent administrations Medication Order MAR Action Action Date Dose Rate Site acetaminophen 650 mg tab(s) (TYLENOL) 650 mg, ORAL, ONCE, 1 dose, On Mon07/19/23 at 0830, Give 30 minutes prior to infusion. No more than 4000 mg of acetaminophen should be given per day (FROM ALL SOURCES), If ordered PRN for pain, patient/guardian may elect to receive this medication for higher pain levels INSTEAD of the opioid, if preferred: N/A Given 07/19/2023 8:31 AM EDT 650 mg bortezomib 2.53 mg in NaCl 0.9% (VELCADE) 2.53 mg (rounded from 2.528 mg = 1.6 mg/m2 1.58 m2 Treatment Plan BSA from Recorded weight), SUBCUTANEOUS, ONCE, 1 dose, On Mon07/19/23 at 0830, exp 1600 07/19/23 (room temp) - DO NOT SHAKE - Hazardous Chemotherapy Drug: Use appropriate PPE. FATAL IF GIVEN INTRATHECALLY. Given 07/19/2023 10:43 AM EDT 2.53 mg Abdominal Tissue dexAMETHasone 40 mg tab(s) (DECADRON) 40 mg, ORAL, ONCE, 1 dose, On Mon07/19/23 at 0830 Given 07/19/2023 8:31 AM EDT 40 mg diphenhydrAMINE 50 mg (BENADRYL) 50 mg, ORAL, ONCE, 1 dose, On Mon07/19/23 at 0830, Give 30 minutes prior to infusion. Given 07/19/2023 8:31 AM EDT 50 mg riTUXimab-pvvr 592.5 mg in NaCl 0.9% 250 mL (RUXIENCE) 592.5 mg (375 mg/m2 1.58 m2 Treatment Plan BSA from Recorded weight), INTRAVENOUS, ONCE, 1 dose, On Mon07/19/23 at 0830, exp 0900 07/20/23 (room temp) -Total Volume = 250 ml Infuse 50 ml over 30 minutes then 200 ml over 60 minutes. Refrigerate. Rate/Dose Change 07/19/2023 9:34 AM EDT 200 mL/hr New Bag/Syringe/Bottle 07/19/2023 9:04 AM EDT 592.5 mg Inactive Administered Medications - up to 3 most recent administrations Medication Order MAR Action Action Date Dose Rate Site acetaminophen 650 mg tab(s) (TYLENOL) 650 mg, ORAL, ONCE, 1 dose, On Mon07/26/23 at 0830, Give 30 minutes prior to infusion. No more than 4000 mg of acetaminophen should be given per day (FROM ALL SOURCES), If ordered PRN for pain, patient/guardian may elect to receive this medication for higher pain levels INSTEAD of the opioid, if preferred: N/A Given 07/26/2023 8:35 AM EST 650 mg bortezomib 2.53 mg in NaCl 0.9% (VELCADE) 2.53 mg (rounded from 2.528 mg = 1.6 mg/m2 1.58 m2 Treatment Plan BSA from Recorded weight), SUBCUTANEOUS, ONCE, 1 dose, On Mon07/26/23 at 0830, exp 1700 07/26/23 (room temp) DO NOT SHAKE - Hazardous Chemotherapy Drug: Use appropriate PPE. FATAL IF GIVEN INTRATHECALLY. Given 07/26/2023 8:54 AM EST 2.53 mg Abdominal Tissue dexAMETHasone 40 mg tab(s) (DECADRON) 40 mg, ORAL, ONCE, 1 dose, On Mon07/26/23 at 0830 Given 07/26/2023 8:35 AM EST 40 mg diphenhydrAMINE 50 mg (BENADRYL) 50 mg, ORAL, ONCE, 1 dose, On Mon07/26/23 at 0830, Give 30 minutes prior to infusion. Given 07/26/2023 8:35 AM EST 50 mg riTUXimab-pvvr 592.5 mg in NaCl 0.9% 250 mL (RUXIENCE) 592.5 mg (375 mg/m2 1.58 m2 Treatment Plan BSA from Recorded weight), INTRAVENOUS, ONCE, 1 dose, On Mon07/26/23 at 0830, exp 89907/27/23 (room temp)- Total Volume = 250 ml Infuse 50 ml over 30 minutes then 200 ml over 60 minutes. Refrigerate. New Bag/Syringe/Fabrice le 07/26/2023 8:54 AM EST 592.5 mg Inactive Administered Medications - up to 3 most recent administrations Medication Order MAR Action Action Date Dose Rate Site acetaminophen 650 mg tab(s) (TYLENOL) 650 mg, ORAL, ONCE, 1 dose, On Mon08/02/23 at 0830, Give 30 minutes prior to infusion. No more than 4000 mg of acetaminophen should be given per day (FROM ALL SOURCES), If ordered PRN for pain, patient/guardian may elect to receive this medication for higher pain levels INSTEAD of the opioid, if preferred: N/A Given 08/02/2023 8:23 AM EST 650 mg bortezomib 2.53 mg in NaCl 0.9% (VELCADE) 2.53 mg (rounded from 2.528 mg = 1.6 mg/m2 1.58 m2 Treatment Plan BSA from Recorded weight), SUBCUTANEOUS, ONCE, 1 dose, On Mon08/02/23 at 0830, Expires: 08/02/23 @ 1615 - DO NOT SHAKE - Hazardous Chemotherapy Drug: Use appropriate PPE. FATAL IF GIVEN INTRATHECALLY. Given 08/02/2023 8:41 AM EST 2.53 mg Abdominal Tissue dexAMETHasone 40 mg tab(s) (DECADRON) 40 mg, ORAL, ONCE, 1 dose, On Mon08/02/23 at 0830 Given 08/02/2023 8:23 AM EST 40 mg diphenhydrAMINE 50 mg (BENADRYL) 50 mg, ORAL, ONCE, 1 dose, On Mon08/02/23 at 0830, Give 30 minutes prior to infusion. Given 08/02/2023 8:23 AM EST 50 mg riTUXimab-pvvr 592.5 mg in NaCl 0.9% 250 mL (RUXIENCE) 592.5 mg (375 mg/m2 1.58 m2 Treatment Plan BSA from Recorded weight), INTRAVENOUS, ONCE, 1 dose, On Mon08/02/23 at 0830, TOTAL VOLUME - Expires: 08/03/23 @ 0815 RAPID - Infuse 50 ml over 30 minutes then 200 ml over 60 minutes. Refrigerate. New Bag/Syringe/Fabrice le 08/02/2023 8:41 AM EST 592.5 mg Inactive Administered Medications - up to 3 most recent administrations Medication Order MAR Action Action Date Dose Rate Site bortezomib 2.53 mg in NaCl 0.9% (VELCADE) 2.53 mg (rounded from 2.528 mg = 1.6 mg/m2 1.58 m2 Treatment Plan BSA from Recorded weight), SUBCUTANEOUS, ONCE, 1 dose, On Mon08/16/23 at 0930, exp 1600 08/16/23 (room temp) - DO NOT SHAKE - Hazardous Chemotherapy Drug: Use appropriate PPE. FATAL IF GIVEN INTRATHECALLY. Given 08/16/2023 9:27 AM EST 2.53 mg Abdominal Tissue dexAMETHasone 40 mg tab(s) (DECADRON) 40 mg, ORAL, ONCE, 1 dose, On Mon08/16/23 at 0930 Given 08/16/2023 9:16 AM EST 40 mg Inactive Administered Medications - up to 3 most recent administrations Medication Order MAR Action Action Date Dose Rate Site bendamustine 114.1 mg in NaCl 0.9% 544.564 mL 114.1 mg (70 mg/m2 1.63 m2 Treatment Plan BSA from Recorded weight), INTRAVENOUS, Administer over 30 Minutes, ONCE, 1 dose, On Mon08/22/23 at 1400, Approx Total Volume - Expires: 08/22/23 @ 1710 Hazardous Chemotherapy Drug: Use appropriate PPE. Antineoplastic Irritant. Refrigerate. New Bag/Syringe/Bottle 08/22/2023 2:52 PM EST 114.1 mg dexAMETHasone 10 mg in NaCl 0.9% 50 mL (DECADRON) 10 mg, INTRAVENOUS, Administer over 15 Minutes, ONCE, 1 dose, On Mon08/22/23 at 1400, Refrigerate. New Bag/Syringe/Bottle 08/22/2023 2:18 PM EST 10 mg NaCl 0.9% iv bolus 500 mL 500 mL, INTRAVENOUS, at 500 mL/hr, Administer over 1 Hours, ONCE, 1 dose, On Mon08/22/23 at 1630 New Bag/Syringe/Bottle 08/22/2023 3:35 PM EST 500 mL 500 mL/hr ondansetron (PF) 8 mg injection (ZOFRAN) 8 mg, INTRAVENOUS, ONCE, 1 dose, On Mon08/22/23 at 1400, Administer 30 minutes prior to infusion. Given 08/22/2023 2:18 PM EST 8 mg Inactive Administered Medications - up to 3 most recent administrations Medication Order MAR Action Action Date Dose Rate Site bendamustine 114.1 mg in NaCl 0.9% 544.564 mL 114.1 mg (70 mg/m2 1.63 m2 Treatment Plan BSA from Recorded weight), INTRAVENOUS, Administer over 30 Minutes, ONCE, 1 dose, On Mon08/23/23 at 1300, Approx Total Volume - Expires: 08/24/23 @ 1055 (refrigerated) Hazardous Chemotherapy Drug: Use appropriate PPE. Antineoplastic Irritant. Refrigerate. New Bag/Syringe/Bottle 08/23/2023 1:45 PM EST 114.1 mg dexAMETHasone 10 mg in NaCl 0.9% 50 mL (DECADRON) 10 mg, INTRAVENOUS, ONCE, 1 dose, On Mon08/23/23 at 1300, Refrigerate. New Bag/Syringe/Bottle 08/23/2023 1:16 PM EST 10 mg NaCl 0.9% iv bolus 500 mL 500 mL, INTRAVENOUS, at 500 mL/hr, Administer over 1 Hours, ONCE, 1 dose, On Mon08/23/23 at 1330 New Bag/Syringe/Bottle 08/23/2023 1:24 PM EST 500 mL 500 mL/hr ondansetron (PF) 8 mg injection (ZOFRAN) 8 mg, INTRAVENOUS, ONCE, 1 dose, On Mon08/23/23 at 1300, Administer 30 minutes prior to infusion. Given 08/23/2023 1:16 PM EST 8 mg Inactive Administered Medications - up to 3 most recent administrations Medication Order MAR Action Action Date Dose Rate Site furosemide 20 mg injection (LASIX) 20 mg, INTRAVENOUS, ONCE, 1 dose, On Mariluz 08/24/23 at 1100 Given 08/24/2023 11:07 AM EST 20 mg NaCl 0.9% iv bolus 500 mL 500 mL, INTRAVENOUS, at 500 mL/hr, Administer over 1 Hours, ONCE, 1 dose, On Mariluz 08/24/23 at 0900 New Bag/Syringe/Bot tle 08/24/2023 8:56 AM EST 500 mL 500 mL/hr pegfilgrastim-jmdb 6 mg injection (FULPHILA) 6 mg, SUBCUTANEOUS, ONCE, 1 dose, On Mariluz 08/24/23 at 0900, Refrigerate - Protect From Light - Do Not Shake - Allow prefilled syringe to reach room temperature for at least 30 minutes prior to injection. Given 08/24/2023 9:56 AM EST 6 mg Abdominal Tissue Summary Purpose Additional Source Comments Source Comments (unrecognize d section and content) In the event this informatio n is protected by the Federal Confidentiality of Alcohol and Drug Abuse Patient Records regulations: The Federal rules restrict any use of the information to criminally investigate or prosecute any alcohol or drug abuse patient.[facility] the event this information is protected by the Federal Confidentiality of Alcohol and Drug Abuse Patient Records regulations: The Federal rules restrict any use of the information to criminally investigate or prosecute any alcohol or drug abuse patient.[facility]In the event this information is protected by the Federal Confidentiality of Alcohol and Drug Abuse Patient Records regulations: The Federal rules restrict any use of the information to criminally investigate or prosecute any alcohol or drug abuse patient.[facility]In the event this information is protected by the Federal Confidentiality of Alcohol and Drug Abuse Patient Records regulations: The Federal rules restrict any use of the information to criminally investigate or prosecute any alcohol or drug abuse patient.[facility]In the event this information is protected by the Federal Confidentiality of Alcohol and Drug Abuse Patient Records regulations: The Federal rules restrict any use of the information to criminally investigate or prosecute any alcohol or drug abuse patient.[facility]In the event this information is protected by the Federal Confidentiality of Alcohol and Drug Abuse Patient Records regulations: The Federal rules restrict any use of the information to criminally investigate or prosecute any alcohol or drug abuse patient.[facility]In the event this information is protected by the Federal Confidentiality of Alcohol and Drug Abuse Patient Records regulations: The Federal rules restrict any use of the information to criminally investigate or prosecute any alcohol or drug abuse patient.[facility]In the event this information is protected by the Federal Confidentiality of Alcohol and Drug Abuse Patient Records regulations: The Federal rules restrict any use of the information to criminally investigate or prosecute any alcohol or drug abuse patient.[facility]In the event this information is protected by the Federal Confidentiality of Alcohol and Drug Abuse Patient Records regulations: The Federal rules restrict any use of the information to criminally investigate or prosecute any alcohol or drug abuse patient.[facility]In the event this information is protected by the Federal Confidentiality of Alcohol and Drug Abuse Patient Records regulations: The Federal rules restrict any use of the information to criminally investigate or prosecute any alcohol or drug abuse patient.[facility]In the event this information is protected by the Federal Confidentiality of Alcohol and Drug Abuse Patient Records regulations: The Federal rules restrict any use of the information to criminally investigate or prosecute any alcohol or drug abuse patient.[facility]In the event this information is protected by the Federal Confidentiality of Alcohol and Drug Abuse Patient Records regulations: The Federal rules restrict any use of the information to criminally investigate or prosecute any alcohol or drug abuse patient.[facility]In the event this information is protected by the Federal Confidentiality of Alcohol and Drug Abuse Patient Records regulations: The Federal rules restrict any use of the information to criminally investigate or prosecute any alcohol or drug abuse patient.[facility]In the event this information is protected by the Federal Confidentiality of Alcohol and Drug Abuse Patient Records regulations: The Federal rules restrict any use of the information to criminally investigate or prosecute any alcohol or drug abuse patient.[facility]In the event this information is protected by the Federal Confidentiality of Alcohol and Drug Abuse Patient Records regulations: The Federal rules restrict any use of the information to criminally investigate or prosecute any alcohol or drug abuse patient.[facility]In the event this information is protected by the Federal Confidentiality of Alcohol and Drug Abuse Patient Records regulations: The Federal rules restrict any use of the information to criminally investigate or prosecute any alcohol or drug abuse patient.[facility]In the event this information is protected by the Federal Confidentiality of Alcohol and Drug Abuse Patient Records regulations: The Federal rules restrict any use of the information to criminally investigate or prosecute any alcohol or drug abuse patient.[facility]In the event this information is protected by the Federal Confidentiality of Alcohol and Drug Abuse Patient Records regulations: The Federal rules restrict any use of the information to criminally investigate or prosecute any alcohol or drug abuse patient.[facility]In the event this information is protected by the Federal Confidentiality of Alcohol and Drug Abuse Patient Records regulations: The Federal rules restrict any use of the information to criminally investigate or prosecute any alcohol or drug abuse patient.[facility]In the event this information is protected by the Federal Confidentiality of Alcohol and Drug Abuse Patient Records regulations: The Federal rules restrict any use of the information to criminally investigate or prosecute any alcohol or drug abuse patient.[facility]In the event this information is protected by the Federal Confidentiality of Alcohol and Drug Abuse Patient Records regulations: The Federal rules restrict any use of the information to criminally investigate or prosecute any alcohol or drug abuse patient.[facility]In the event this information is protected by the Federal Confidentiality of Alcohol and Drug Abuse Patient Records regulations: The Federal rules restrict any use of the information to criminally investigate or prosecute any alcohol or drug abuse patient.[facility]In the event this information is protected by the Federal Confidentiality of Alcohol and Drug Abuse Patient Records regulations: The Federal rules restrict any use of the information to criminally investigate or prosecute any alcohol or drug abuse patient.[facility]In the event this information is protected by the Federal Confidentiality of Alcohol and Drug Abuse Patient Records regulations: The Federal rules restrict any use of the information to criminally investigate or prosecute any alcohol or drug abuse patient.[facility]In the event this information is protected by the Federal Confidentiality of Alcohol and Drug Abuse Patient Records regulations: The Federal rules restrict any use of the information to criminally investigate or prosecute any alcohol or drug abuse patient.[facility]In the event this information is protected by the Federal Confidentiality of Alcohol and Drug Abuse Patient Records regulations: The Federal rules restrict any use of the information to criminally investigate or prosecute any alcohol or drug abuse patient.[facility]In the event this information is protected by the Federal Confidentiality of Alcohol and Drug Abuse Patient Records regulations: The Federal rules restrict any use of the information to criminally investigate or prosecute any alcohol or drug abuse patient.[facility]In the event this information is protected by the Federal Confidentiality of Alcohol and Drug Abuse Patient Records regulations: The Federal rules restrict any use of the information to criminally investigate or prosecute any alcohol or drug abuse patient.[facility]In the event this information is protected by the Federal Confidentiality of Alcohol and Drug Abuse Patient Records regulations: The Federal rules restrict any use of the information to criminally investigate or prosecute any alcohol or drug abuse patient.[facility]In the event this information is protected by the Federal Confidentiality of Alcohol and Drug Abuse Patient Records regulations: The Federal rules restrict any use of the information to criminally investigate or prosecute any alcohol or drug abuse patient.[facility]In the event this information is protected by the Federal Confidentiality of Alcohol and Drug Abuse Patient Records regulations: The Federal rules restrict any use of the information to criminally investigate or prosecute any alcohol or drug abuse patient.[facility]In the event this information is protected by the Federal Confidentiality of Alcohol and Drug Abuse Patient Records regulations: The Federal rules restrict any use of the information to criminally investigate or prosecute any alcohol or drug abuse patient.[facility]In the event this information is protected by the Federal Confidentiality of Alcohol and Drug Abuse Patient Records regulations: The Federal rules restrict any use of the information to criminally investigate or prosecute any alcohol or drug abuse patient.[facility]In the event this information is protected by the Federal Confidentiality of Alcohol and Drug Abuse Patient Records regulations: The Federal rules restrict any use of the information to criminally investigate or prosecute any alcohol or drug abuse patient.[facility]In the event this information is protected by the Federal Confidentiality of Alcohol and Drug Abuse Patient Records regulations: The Federal rules restrict any use of the information to criminally investigate or prosecute any alcohol or drug abuse patient.[facility]In the event this information is protected by the Federal Confidentiality of Alcohol and Drug Abuse Patient Records regulations: The Federal rules restrict any use of the information to criminally investigate or prosecute any alcohol or drug abuse patient.[facility]In the event this information is protected by the Federal Confidentiality of Alcohol and Drug Abuse Patient Records regulations: The Federal rules restrict any use of the information to criminally investigate or prosecute any alcohol or drug abuse patient.[facility]In the event this information is protected by the Federal Confidentiality of Alcohol and Drug Abuse Patient Records regulations: The Federal rules restrict any use of the information to criminally investigate or prosecute any alcohol or drug abuse patient.[facility]In the event this information is protected by the Federal Confidentiality of Alcohol and Drug Abuse Patient Records regulations: The Federal rules restrict any use of the information to criminally investigate or prosecute any alcohol or drug abuse patient.[facility]In the event this information is protected by the Federal Confidentiality of Alcohol and Drug Abuse Patient Records regulations: The Federal rules restrict any use of the information to criminally investigate or prosecute any alcohol or drug abuse patient.[facility]In the event this information is protected by the Federal Confidentiality of Alcohol and Drug Abuse Patient Records regulations: The Federal rules restrict any use of the information to criminally investigate or prosecute any alcohol or drug abuse patient.[facility]In the event this information is protected by the Federal Confidentiality of Alcohol and Drug Abuse Patient Records regulations: The Federal rules restrict any use of the information to criminally investigate or prosecute any alcohol or drug abuse patient.[facility]In the event this information is protected by the Federal Confidentiality of Alcohol and Drug Abuse Patient Records regulations: The Federal rules restrict any use of the information to criminally investigate or prosecute any alcohol or drug abuse patient.[facility]In the event this information is protected by the Federal Confidentiality of Alcohol and Drug Abuse Patient Records regulations: The Federal rules restrict any use of the information to criminally investigate or prosecute any alcohol or drug abuse patient.[facility]In the event this information is protected by the Federal Confidentiality of Alcohol and Drug Abuse Patient Records regulations: The Federal rules restrict any use of the information to criminally investigate or prosecute any alcohol or drug abuse patient.[facility]In the event this information is protected by the Federal Confidentiality of Alcohol and Drug Abuse Patient Records regulations: The Federal rules restrict any use of the information to criminally investigate or prosecute any alcohol or drug abuse patient.[facility]In the event this information is protected by the Federal Confidentiality of Alcohol and Drug Abuse Patient Records regulations: The Federal rules restrict any use of the information to criminally investigate or prosecute any alcohol or drug abuse patient.[facility]In the event this information is protected by the Federal Confidentiality of Alcohol and Drug Abuse Patient Records regulations: The Federal rules restrict any use of the information to criminally investigate or prosecute any alcohol or drug abuse patient.[facility]In the event this information is protected by the Federal Confidentiality of Alcohol and Drug Abuse Patient Records regulations: The Federal rules restrict any use of the information to criminally investigate or prosecute any alcohol or drug abuse patient.[facility]In the event this information is protected by the Federal Confidentiality of Alcohol and Drug Abuse Patient Records regulations: The Federal rules restrict any use of the information to criminally investigate or prosecute any alcohol or drug abuse patient.[facility]In the event this information is protected by the Federal Confidentiality of Alcohol and Drug Abuse Patient Records regulations: The Federal rules restrict any use of the information to criminally investigate or prosecute any alcohol or drug abuse patient.[facility]In the event this information is protected by the Federal Confidentiality of Alcohol and Drug Abuse Patient Records regulations: The Federal rules restrict any use of the information to criminally investigate or prosecute any alcohol or drug abuse patient.[facility]In the event this information is protected by the Federal Confidentiality of Alcohol and Drug Abuse Patient Records regulations: The Federal rules restrict any use of the information to criminally investigate or prosecute any alcohol or drug abuse patient.[facility]In the event this information is protected by the Federal Confidentiality of Alcohol and Drug Abuse Patient Records regulations: The Federal rules restrict any use of the information to criminally investigate or prosecute any alcohol or drug abuse patient.[facility]In the event this information is protected by the Federal Confidentiality of Alcohol and Drug Abuse Patient Records regulations: The Federal rules restrict any use of the information to criminally investigate or prosecute any alcohol or drug abuse patient.[facility]In the event this information is protected by the Federal Confidentiality of Alcohol and Drug Abuse Patient Records regulations: The Federal rules restrict any use of the information to criminally investigate or prosecute any alcohol or drug abuse patient.[facility]In the event this information is protected by the Federal Confidentiality of Alcohol and Drug Abuse Patient Records regulations: The Federal rules restrict any use of the information to criminally investigate or prosecute any alcohol or drug abuse patient.[facility]In the event this information is protected by the Federal Confidentiality of Alcohol and Drug Abuse Patient Records regulations: The Federal rules restrict any use of the information to criminally investigate or prosecute any alcohol or drug abuse patient.[facility]In the event this information is protected by the Federal Confidentiality of Alcohol and Drug Abuse Patient Records regulations: The Federal rules restrict any use of the information to criminally investigate or prosecute any alcohol or drug abuse patient.[facility]In the event this information is protected by the Federal Confidentiality of Alcohol and Drug Abuse Patient Records regulations: The Federal rules restrict any use of the information to criminally investigate or prosecute any alcohol or drug abuse patient.[facility]In the event this information is protected by the Federal Confidentiality of Alcohol and Drug Abuse Patient Records regulations: The Federal rules restrict any use of the information to criminally investigate or prosecute any alcohol or drug abuse patient.[facility]In the event this information is protected by the Federal Confidentiality of Alcohol and Drug Abuse Patient Records regulations: The Federal rules restrict any use of the information to criminally investigate or prosecute any alcohol or drug abuse patient.[facility]In the event this information is protected by the Federal Confidentiality of Alcohol and Drug Abuse Patient Records regulations: The Federal rules restrict any use of the information to criminally investigate or prosecute any alcohol or drug abuse patient.[facility]In the event this information is protected by the Federal Confidentiality of Alcohol and Drug Abuse Patient Records regulations: The Federal rules restrict any use of the information to criminally investigate or prosecute any alcohol or drug abuse patient.[facility]In the event this information is protected by the Federal Confidentiality of Alcohol and Drug Abuse Patient Records regulations: The Federal rules restrict any use of the information to criminally investigate or prosecute any alcohol or drug abuse patient.[facility]In the event this information is protected by the Federal Confidentiality of Alcohol and Drug Abuse Patient Records regulations: The Federal rules restrict any use of the information to criminally investigate or prosecute any alcohol or drug abuse patient.[facility]In the event this information is protected by the Federal Confidentiality of Alcohol and Drug Abuse Patient Records regulations: The Federal rules restrict any use of the information to criminally investigate or prosecute any alcohol or drug abuse patient.[facility]In the event this information is protected by the Federal Confidentiality of Alcohol and Drug Abuse Patient Records regulations: The Federal rules restrict any use of the information to criminally investigate or prosecute any alcohol or drug abuse patient.[facility]In the event this information is protected by the Federal Confidentiality of Alcohol and Drug Abuse Patient Records regulations: The Federal rules restrict any use of the information to criminally investigate or prosecute any alcohol or drug abuse patient.[facility]In the event this information is protected by the Federal Confidentiality of Alcohol and Drug Abuse Patient Records regulations: The Federal rules restrict any use of the information to criminally investigate or prosecute any alcohol or drug abuse patient.[facility]In the event this information is protected by the Federal Confidentiality of Alcohol and Drug Abuse Patient Records regulations: The Federal rules restrict any use of the information to criminally investigate or prosecute any alcohol or drug abuse patient.[facility]In the event this information is protected by the Federal Confidentiality of Alcohol and Drug Abuse Patient Records regulations: The Federal rules restrict any use of the information to criminally investigate or prosecute any alcohol or drug abuse patient.[facility]In the event this information is protected by the Federal Confidentiality of Alcohol and Drug Abuse Patient Records regulations: The Federal rules restrict any use of the information to criminally investigate or prosecute any alcohol or drug abuse patient.[facility]In the event this information is protected by the Federal Confidentiality of Alcohol and Drug Abuse Patient Records regulations: The Federal rules restrict any use of the information to criminally investigate or prosecute any alcohol or drug abuse patient.[facility]In the event this information is protected by the Federal Confidentiality of Alcohol and Drug Abuse Patient Records regulations: The Federal rules restrict any use of the information to criminally investigate or prosecute any alcohol or drug abuse patient.[facility]In the event this information is protected by the Federal Confidentiality of Alcohol and Drug Abuse Patient Records regulations: The Federal rules restrict any use of the information to criminally investigate or prosecute any alcohol or drug abuse patient.[facility]In the event this information is protected by the Federal Confidentiality of Alcohol and Drug Abuse Patient Records regulations: The Federal rules restrict any use of the information to criminally investigate or prosecute any alcohol or drug abuse patient.[facility]In the event this information is protected by the Federal Confidentiality of Alcohol and Drug Abuse Patient Records regulations: The Federal rules restrict any use of the information to criminally investigate or prosecute any alcohol or drug abuse patient.[facility]In the event this information is protected by the Federal Confidentiality of Alcohol and Drug Abuse Patient Records regulations: The Federal rules restrict any use of the information to criminally investigate or prosecute any alcohol or drug abuse patient.[facility]In the event this information is protected by the Federal Confidentiality of Alcohol and Drug Abuse Patient Records regulations: The Federal rules restrict any use of the information to criminally investigate or prosecute any alcohol or drug abuse patient.[facility]In the event this information is protected by the Federal Confidentiality of Alcohol and Drug Abuse Patient Records regulations: The Federal rules restrict any use of the information to criminally investigate or prosecute any alcohol or drug abuse patient.[facility]In the event this information is protected by the Federal Confidentiality of Alcohol and Drug Abuse Patient Records regulations: The Federal rules restrict any use of the information to criminally investigate or prosecute any alcohol or drug abuse patient.[facility]In the event this information is protected by the Federal Confidentiality of Alcohol and Drug Abuse Patient Records regulations: The Federal rules restrict any use of the information to criminally investigate or prosecute any alcohol or drug abuse patient.[facility]In the event this information is protected by the Federal Confidentiality of Alcohol and Drug Abuse Patient Records regulations: The Federal rules restrict any use of the information to criminally investigate or prosecute any alcohol or drug abuse patient.[facility]In the event this information is protected by the Federal Confidentiality of Alcohol and Drug Abuse Patient Records regulations: The Federal rules restrict any use of the information to criminally investigate or prosecute any alcohol or drug abuse patient.[facility]In the event this information is protected by the Federal Confidentiality of Alcohol and Drug Abuse Patient Records regulations: The Federal rules restrict any use of the information to criminally investigate or prosecute any alcohol or drug abuse patient.[facility]In the event this information is protected by the Federal Confidentiality of Alcohol and Drug Abuse Patient Records regulations: The Federal rules restrict any use of the information to criminally investigate or prosecute any alcohol or drug abuse patient.[facility]In the event this information is protected by the Federal Confidentiality of Alcohol and Drug Abuse Patient Records regulations: The Federal rules restrict any use of the information to criminally investigate or prosecute any alcohol or drug abuse patient.[facility]In the event this information is protected by the Federal Confidentiality of Alcohol and Drug Abuse Patient Records regulations: The Federal rules restrict any use of the information to criminally investigate or prosecute any alcohol or drug abuse patient.[facility]In the event this information is protected by the Federal Confidentiality of Alcohol and Drug Abuse Patient Records regulations: The Federal rules restrict any use of the information to criminally investigate or prosecute any alcohol or drug abuse patient.[facility]In the event this information is protected by the Federal Confidentiality of Alcohol and Drug Abuse Patient Records regulations: The Federal rules restrict any use of the information to criminally investigate or prosecute any alcohol or drug abuse patient.[facility]In the event this information is protected by the Federal Confidentiality of Alcohol and Drug Abuse Patient Records regulations: The Federal rules restrict any use of the information to criminally investigate or prosecute any alcohol or drug abuse patient.[facility]In the event this information is protected by the Federal Confidentiality of Alcohol and Drug Abuse Patient Records regulations: The Federal rules restrict any use of the information to criminally investigate or prosecute any alcohol or drug abuse patient.[facility]In the event this information is protected by the Federal Confidentiality of Alcohol and Drug Abuse Patient Records regulations: The Federal rules restrict any use of the information to criminally investigate or prosecute any alcohol or drug abuse patient.[facility]In the event this information is protected by the Federal Confidentiality of Alcohol and Drug Abuse Patient Records regulations: The Federal rules restrict any use of the information to criminally investigate or prosecute any alcohol or drug abuse patient.[facility]In the event this information is protected by the Federal Confidentiality of Alcohol and Drug Abuse Patient Records regulations: The Federal rules restrict any use of the information to criminally investigate or prosecute any alcohol or drug abuse patient.[facility]In the event this information is protected by the Federal Confidentiality of Alcohol and Drug Abuse Patient Records regulations: The Federal rules restrict any use of the information to criminally investigate or prosecute any alcohol or drug abuse patient.[facility]In the event this information is protected by the Federal Confidentiality of Alcohol and Drug Abuse Patient Records regulations: The Federal rules restrict any use of the information to criminally investigate or prosecute any alcohol or drug abuse patient.[facility]In the event this information is protected by the Federal Confidentiality of Alcohol and Drug Abuse Patient Records regulations: The Federal rules restrict any use of the information to criminally investigate or prosecute any alcohol or drug abuse patient.[facility]In the event this information is protected by the Federal Confidentiality of Alcohol and Drug Abuse Patient Records regulations: The Federal rules restrict any use of the information to criminally investigate or prosecute any alcohol or drug abuse patient.[facility]In the event this information is protected by the Federal Confidentiality of Alcohol and Drug Abuse Patient Records regulations: The Federal rules restrict any use of the information to criminally investigate or prosecute any alcohol or drug abuse patient.[facility]In the event this information is protected by the Federal Confidentiality of Alcohol and Drug Abuse Patient Records regulations: The Federal rules restrict any use of the information to criminally investigate or prosecute any alcohol or drug abuse patient.[facility]In the event this information is protected by the Federal Confidentiality of Alcohol and Drug Abuse Patient Records regulations: The Federal rules restrict any use of the information to criminally investigate or prosecute any alcohol or drug abuse patient.[facility]In the event this information is protected by the Federal Confidentiality of Alcohol and Drug Abuse Patient Records regulations: The Federal rules restrict any use of the information to criminally investigate or prosecute any alcohol or drug abuse patient.[facility]In the event this information is protected by the Federal Confidentiality of Alcohol and Drug Abuse Patient Records regulations: The Federal rules restrict any use of the information to criminally investigate or prosecute any alcohol or drug abuse patient.[facility]In the event this information is protected by the Federal Confidentiality of Alcohol and Drug Abuse Patient Records regulations: The Federal rules restrict any use of the information to criminally investigate or prosecute any alcohol or drug abuse patient.[facility]In the event this information is protected by the Federal Confidentiality of Alcohol and Drug Abuse Patient Records regulations: The Federal rules restrict any use of the information to criminally investigate or prosecute any alcohol or drug abuse patient.[facility]In the event this information is protected by the Federal Confidentiality of Alcohol and Drug Abuse Patient Records regulations: The Federal rules restrict any use of the information to criminally investigate or prosecute any alcohol or drug abuse patient.[facility]In the event this information is protected by the Federal Confidentiality of Alcohol and Drug Abuse Patient Records regulations: The Federal rules restrict any use of the information to criminally investigate or prosecute any alcohol or drug abuse patient.[facility]In the event this information is protected by the Federal Confidentiality of Alcohol and Drug Abuse Patient Records regulations: The Federal rules restrict any use of the information to criminally investigate or prosecute any alcohol or drug abuse patient.[facility]In the event this information is protected by the Federal Confidentiality of Alcohol and Drug Abuse Patient Records regulations: The Federal rules restrict any use of the information to criminally investigate or prosecute any alcohol or drug abuse patient.[facility]In the event this information is protected by the Federal Confidentiality of Alcohol and Drug Abuse Patient Records regulations: The Federal rules restrict any use of the information to criminally investigate or prosecute any alcohol or drug abuse patient.[facility]In the event this information is protected by the Federal Confidentiality of Alcohol and Drug Abuse Patient Records regulations: The Federal rules restrict any use of the information to criminally investigate or prosecute any alcohol or drug abuse patient.[facility]In the event this information is protected by the Federal Confidentiality of Alcohol and Drug Abuse Patient Records regulations: The Federal rules restrict any use of the information to criminally investigate or prosecute any alcohol or drug abuse patient.[facility]In the event this information is protected by the Federal Confidentiality of Alcohol and Drug Abuse Patient Records regulations: The Federal rules restrict any use of the information to criminally investigate or prosecute any alcohol or drug abuse patient.[facility]In the event this information is protected by the Federal Confidentiality of Alcohol and Drug Abuse Patient Records regulations: The Federal rules restrict any use of the information to criminally investigate or prosecute any alcohol or drug abuse patient.[facility]In the event this information is protected by the Federal Confidentiality of Alcohol and Drug Abuse Patient Records regulations: The Federal rules restrict any use of the information to criminally investigate or prosecute any alcohol or drug abuse patient.[facility]In the event this information is protected by the Federal Confidentiality of Alcohol and Drug Abuse Patient Records regulations: The Federal rules restrict any use of the information to criminally investigate or prosecute any alcohol or drug abuse patient.[facility]In the event this information is protected by the Federal Confidentiality of Alcohol and Drug Abuse Patient Records regulations: The Federal rules restrict any use of the information to criminally investigate or prosecute any alcohol or drug abuse patient.[facility]In the event this information is protected by the Federal Confidentiality of Alcohol and Drug Abuse Patient Records regulations: The Federal rules restrict any use of the information to criminally investigate or prosecute any alcohol or drug abuse patient.[facility]In the event this information is protected by the Federal Confidentiality of Alcohol and Drug Abuse Patient Records regulations: The Federal rules restrict any use of the information to criminally investigate or prosecute any alcohol or drug abuse patient.[facility]In the event this information is protected by the Federal Confidentiality of Alcohol and Drug Abuse Patient Records regulations: The Federal rules restrict any use of the information to criminally investigate or prosecute any alcohol or drug abuse patient.[facility]In the event this information is protected by the Federal Confidentiality of Alcohol and Drug Abuse Patient Records regulations: The Federal rules restrict any use of the information to criminally investigate or prosecute any alcohol or drug abuse patient.[facility]In the event this information is protected by the Federal Confidentiality of Alcohol and Drug Abuse Patient Records regulations: The Federal rules restrict any use of the information to criminally investigate or prosecute any alcohol or drug abuse patient.[facility]In the event this information is protected by the Federal Confidentiality of Alcohol and Drug Abuse Patient Records regulations: The Federal rules restrict any use of the information to criminally investigate or prosecute any alcohol or drug abuse patient.[facility]In the event this information is protected by the Federal Confidentiality of Alcohol and Drug Abuse Patient Records regulations: The Federal rules restrict any use of the information to criminally investigate or prosecute any alcohol or drug abuse patient.[facility]In the event this information is protected by the Federal Confidentiality of Alcohol and Drug Abuse Patient Records regulations: The Federal rules restrict any use of the information to criminally investigate or prosecute any alcohol or drug abuse patient.[facility]In the event this information is protected by the Federal Confidentiality of Alcohol and Drug Abuse Patient Records regulations: The Federal rules restrict any use of the information to criminally investigate or prosecute any alcohol or drug abuse patient.[facility]In the event this information is protected by the Federal Confidentiality of Alcohol and Drug Abuse Patient Records regulations: The Federal rules restrict any use of the information to criminally investigate or prosecute any alcohol or drug abuse patient.[facility]In the event this information is protected by the Federal Confidentiality of Alcohol and Drug Abuse Patient Records regulations: The Federal rules restrict any use of the information to criminally investigate or prosecute any alcohol or drug abuse patient.[facility]In the event this information is protected by the Federal Confidentiality of Alcohol and Drug Abuse Patient Records regulations: The Federal rules restrict any use of the information to criminally investigate or prosecute any alcohol or drug abuse patient.[facility]In the event this information is protected by the Federal Confidentiality of Alcohol and Drug Abuse Patient Records regulations: The Federal rules restrict any use of the information to criminally investigate or prosecute any alcohol or drug abuse patient.[facility]In the event this information is protected by the Federal Confidentiality of Alcohol and Drug Abuse Patient Records regulations: The Federal rules restrict any use of the information to criminally investigate or prosecute any alcohol or drug abuse patient.[facility]In the event this information is protected by the Federal Confidentiality of Alcohol and Drug Abuse Patient Records regulations: The Federal rules restrict any use of the information to criminally investigate or prosecute any alcohol or drug abuse patient.[facility]In the event this information is protected by the Federal Confidentiality of Alcohol and Drug Abuse Patient Records regulations: The Federal rules restrict any use of the information to criminally investigate or prosecute any alcohol or drug abuse patient.[facility]In the event this information is protected by the Federal Confidentiality of Alcohol and Drug Abuse Patient Records regulations: The Federal rules restrict any use of the information to criminally investigate or prosecute any alcohol or drug abuse patient.[facility]In the event this information is protected by the Federal Confidentiality of Alcohol and Drug Abuse Patient Records regulations: The Federal rules restrict any use of the information to criminally investigate or prosecute any alcohol or drug abuse patient.[facility]In the event this information is protected by the Federal Confidentiality of Alcohol and Drug Abuse Patient Records regulations: The Federal rules restrict any use of the information to criminally investigate or prosecute any alcohol or drug abuse patient.[facility]In the event this information is protected by the Federal Confidentiality of Alcohol and Drug Abuse Patient Records regulations: The Federal rules restrict any use of the information to criminally investigate or prosecute any alcohol or drug abuse patient.[facility]In the event this information is protected by the Federal Confidentiality of Alcohol and Drug Abuse Patient Records regulations: The Federal rules restrict any use of the information to criminally investigate or prosecute any alcohol or drug abuse patient.[facility]In the event this information is protected by the Federal Confidentiality of Alcohol and Drug Abuse Patient Records regulations: The Federal rules restrict any use of the information to criminally investigate or prosecute any alcohol or drug abuse patient.[facility]In the event this information is protected by the Federal Confidentiality of Alcohol and Drug Abuse Patient Records regulations: The Federal rules restrict any use of the information to criminally investigate or prosecute any alcohol or drug abuse patient.[facility]In the event this information is protected by the Federal Confidentiality of Alcohol and Drug Abuse Patient Records regulations: The Federal rules restrict any use of the information to criminally investigate or prosecute any alcohol or drug abuse patient.[facility]In the event this information is protected by the Federal Confidentiality of Alcohol and Drug Abuse Patient Records regulations: The Federal rules restrict any use of the information to criminally investigate or prosecute any alcohol or drug abuse patient.[facility]In the event this information is protected by the Federal Confidentiality of Alcohol and Drug Abuse Patient Records regulations: The Federal rules restrict any use of the information to criminally investigate or prosecute any alcohol or drug abuse patient.[facility]In the event this information is protected by the Federal Confidentiality of Alcohol and Drug Abuse Patient Records regulations: The Federal rules restrict any use of the information to criminally investigate or prosecute any alcohol or drug abuse patient.[facility]In the event this information is protected by the Federal Confidentiality of Alcohol and Drug Abuse Patient Records regulations: The Federal rules restrict any use of the information to criminally investigate or prosecute any alcohol or drug abuse patient.[facility]In the event this information is protected by the Federal Confidentiality of Alcohol and Drug Abuse Patient Records regulations: The Federal rules restrict any use of the information to criminally investigate or prosecute any alcohol or drug abuse patient.[facility]In the event this information is protected by the Federal Confidentiality of Alcohol and Drug Abuse Patient Records regulations: The Federal rules restrict any use of the information to criminally investigate or prosecute any alcohol or drug abuse patient.[facility]In the event this information is protected by the Federal Confidentiality of Alcohol and Drug Abuse Patient Records regulations: The Federal rules restrict any use of the information to criminally investigate or prosecute any alcohol or drug abuse patient.[facility]In the event this information is protected by the Federal Confidentiality of Alcohol and Drug Abuse Patient Records regulations: The Federal rules restrict any use of the information to criminally investigate or prosecute any alcohol or drug abuse patient.[facility]In the event this information is protected by the Federal Confidentiality of Alcohol and Drug Abuse Patient Records regulations: The Federal rules restrict any use of the information to criminally investigate or prosecute any alcohol or drug abuse patient.[facility]In the event this information is protected by the Federal Confidentiality of Alcohol and Drug Abuse Patient Records regulations: The Federal rules restrict any use of the information to criminally investigate or prosecute any alcohol or drug abuse patient.[facility]In the event this information is protected by the Federal Confidentiality of Alcohol and Drug Abuse Patient Records regulations: The Federal rules restrict any use of the information to criminally investigate or prosecute any alcohol or drug abuse patient.[facility]In the event this information is protected by the Federal Confidentiality of Alcohol and Drug Abuse Patient Records regulations: The Federal rules restrict any use of the information to criminally investigate or prosecute any alcohol or drug abuse patient.[facility]In the event this information is protected by the Federal Confidentiality of Alcohol and Drug Abuse Patient Records regulations: The Federal rules restrict any use of the information to criminally investigate or prosecute any alcohol or drug abuse patient.[facility]In the event this information is protected by the Federal Confidentiality of Alcohol and Drug Abuse Patient Records regulations: The Federal rules restrict any use of the information to criminally investigate or prosecute any alcohol or drug abuse patient.[facility]In the event this information is protected by the Federal Confidentiality of Alcohol and Drug Abuse Patient Records regulations: The Federal rules restrict any use of the information to criminally investigate or prosecute any alcohol or drug abuse patient.[facility]In the event this information is protected by the Federal Confidentiality of Alcohol and Drug Abuse Patient Records regulations: The Federal rules restrict any use of the information to criminally investigate or prosecute any alcohol or drug abuse patient.[facility]In the event this information is protected by the Federal Confidentiality of Alcohol and Drug Abuse Patient Records regulations: The Federal rules restrict any use of the information to criminally investigate or prosecute any alcohol or drug abuse patient.[facility] Reason for Visit (unrecogniz ed section and content) Reason Comments Imm/Inj Specialty Diagnoses / Procedures Referred By Contac t Referred To Contact Diagnoses SINDI (acute kidney injury) (HCC) 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) Jose Hugo, DO [address] [place] [address] [facility] [address] [place] [address] Referral ID Status Reason Start Date Expiration Date Visits Re quested Visits Authorized [id number] Closed 08/18/2023 11/16/2023 99 99 Reason Comments Immunotherapy Chemotherapy Treatment Reason Comments Non-Chemotherapy Treatment Referral ID Status Reason Start Date Expiration Date V isits Requested Visits Authorized [id number] Authorized 08/18/2023 11/16/2023 [address] Specialty Diagnoses / Procedures Referred By Contac t Referred To Contact CT IMAGING Diagnoses [place] macroglobulinemia (HCC) Procedures CT ABD/PEL WO IVCON CT ABD & PELVIS W/O CONTRAST Jose Hugo, DO [address] [place] [address] Ct Imaging [facility] Referral ID Status Reason Start Date Expiration Date V isits Requested Visits Authorized [id number] Closed Auto-Generate d Referral 04/06/2023 05/05/2024 1 1 Reason Comments Lab Orders Reason Comments Medicare Wellness Exam Reason Comments Orders Reason Comments Results Reason Comments Hospital F/U Reason Comments Spirometry Specialty Diagnoses / Procedures Referred By Contac t Referred To Contact [facility] Diagnoses SOB (shortness of breath) Procedures SPIROMETRY - BASELINE AND POST DILATOR BRNCDILAT RSPSE SPMTRY PRE&POST-BRNCDILAT ADMJose Miguel Mark MD [address] [place] [address] [facility] [place] [address] [place] [address] Referral ID Status Reason Start Date Expiration Date V isits Requested Visits Authorized [id number] Closed Auto-Generate d Referral 03/23/2023 04/21/2024 1 1 Reason Comments Patient Update Reason Comments Consult Specialty Diagnoses / Procedures Referred By Contac t Referred To Contact Diagnoses Monoclonal (M) protein disease, multiple 'M' protein Procedures CONSULT TO HEMATOLOGY/ONCOLOGY OFFICE/OUTPATIENT [facility] HIGH MDM 60-74 MINUTES Jose Miguel Herbert MD [address] [place] [address] Referral ID Status Reason Start Date Expiration Date Visits Requested Visits Authorized [id number] Pending Review PCP Requested Referral 04/04/2023 04/03/2024 1 1 Reason Comments Opened In Error Reason Comments Follow Up Reason Comments Child Welfare Manager - Other Introduction Reason Comments AVS 04/19/23, CHEMO START Reason Comments First Time Treatment Education Velcade, Rituxan, Dexamethasone Reason Comments Reason Comments Established Patient Reason Comments Child Welfare Manager - Other Treatment Plann ing Reason Comments Benefits Investigation Reason Comments Chemotherapy Treatment Specialty Diagnoses / Procedures Referred By Contac t Referred To Contact Diagnoses SINDI (acute kidney injury) (HCC) 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) Jose Hugo, DO [address] [place] [address] [facility] [address] [place] [address] Referral ID Status Reason Start Date Expiration Date V isits Requested Visits Authorized [id number] Authorized 04/19/2023 07/18/2023 99 99 Reason Comments Results Reason Comments Future Appointment Reason Comments Appointment Reason Comments Child Welfare Manager - Other C1D1 Post Treat ment Call (Rituxan/Velcade) Reason Comments Outside Urology Reason Comments Research 5024 Consent Reason Comments Patient Education Reason Comments Heart Failure Reason Comments Child Welfare Manager - Other Follow-up Reason Comments Patient Update Reason Comments Established Patient Reason Comments Radiology US Specialty Diagnoses / Procedures Referred By Contac t Referred To Contact US IMAGING Diagnoses Unintended weight loss Fatigue, unspecified type Decreased stamina Lack of appetite Procedures US ABDOMEN COMPLETE US ABDOMINAL REAL TIME W/IMAGE DOCUMENTATION Jose Miguel Herbert MD [address] [place] [address] [place] [address] Referral ID Status Reason Start Date Expiration Date V isits Requested Visits Authorized [id number] Closed Auto-Generate d Referral 03/23/2023 04/21/2024 1 1 Specialty Diagnoses / Procedures Referred By Contac t Referred To Contact CT IMAGING Diagnoses Unintended weight loss Fatigue, unspecified type Decreased stamina SOB (shortness of breath) Lack of appetite Procedures CT CHEST WO IVCON DIAGNOSTIC COMPUTED TOMOGRAPHY THORAX W/O CNTRST Jose Miguel Herbert MD [address] [place] [address] Ct Imaging [place] [address] Referral ID Status Reason Start Date Expiration Date V isits Requested Visits Authorized [id number] Closed Auto-Generate d Referral 03/23/2023 2023 1 1 Reason Comments Patient Question Reason Comments Follow Up Reason Comments First Time Treatment Education [place] ine Reason Comments Consult Referral Reason Comments Palliative Medicine Consult Reason Comments Education Of Patient/family OTP Educatio n Reason Comments F/U 6 months Specialty Diagnoses / Procedures [facility] To Contact Diagnoses SINDI (acute kidney injury) (HCC) 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 Reason Comments Refill Request Reason Onset Date Comments SPP Oral Oncology/hematology - Treatment [facility]erra l [facility] 04/18/2024 Pending PA Reason Comments Child Welfare Manager - Other Oral Anti-cance r agents education (zanubrutinib) Reason Comments Child Welfare Manager - Other Oral Anti-Cance r Agents Follow-up (zanubrutinib) Reason Comments Follow Up Specialty Diagnoses / Procedures [facility] Referred To Contact Procedures CARDIOVASCULAR MEDICINE OP FOLLOW UP APPT ORDER Talia Russell APRN.PRODUCT INTRODUCTION MANAGER [address] [place] [id number] Referral ID Status Reason Start Date Expiration Date Visits Requested Visits Authorized [id number] Ref Not Required PCP Requested Referral 11/05/2023 10/04/2024 1 1 Reason Onset Date Comments SPP Oral Oncology/hematology - Medication Refill 05/13/2024 [facility] 80mg Reason Comments Outside [id number] Ordered Reason Onset Date Comments SPP Oral Oncology/hematology - Medication Refill 06/21/2024 [facility] Reason Onset Date Comments Refill Request 07/15/2024 Reason Onset Date Comments SPP Oral Oncology/hematology - Medication Refill 07/25/2024 [facility] Reason Onset Date Comments Refill Request 08/08/2024 Reason Onset Date Comments SPP Oral Oncology/hematology - Medication Refill 08/26/2024 [facility] Reason Onset Date Comments SPP Oral Oncology/hematology - Medication Refill 09/26/2024 [facility] Reason Comments Outside Imaging Reason Comments CARD New Patient Consult Referred by Hem atologyCardijenni [place] amyloidosis Specialty Diagnoses / Procedures Referred By Contjenni t Referred To Contact Cardiology Diagnoses Cardiomyopathy, unspecified type (HCC) Procedures CONSULT TO CARDIOLOGY OFFICE/OUTPATIENT NEW HIGH MDM 60 MINUTES Jose Hugo, [address] [place] [address] Referral ID Status Reason Start Date Expiration Date V isits Requested Visits Authorized [id number] Closed PCP Requested Referral 06/13/2024 06/13/2025 1 1 Reason Onset Date Comments SPP Oral Oncology/hematology - Medication Refill 10/31/2024 [facility] Reason Comments Medication Problem Reason Onset Date Comments SPP Oral Oncology/hematology - Medication Refill 11/26/2024 [facility] 80mg Reason Comments Child Welfare Manager - Other Patient Questio n Reason Onset Date Comments SPP Oral Oncology/hematology - Medication Refill 12/25/2024 [facility] Reason Comments Electronic Communication Reason Comments Outside H&P Reason Comments Outside Procedure Reason Onset Date Comments SPP Oral Oncology/hematology - Medication Refill 01/27/2025 [facility] Reason Onset Date Comments SPP Oral Oncology/hematology - Medication Refill 03/14/2025 [facility] Reason Onset Date Comments SPP Oral Oncology/hematology - Medication Refill 04/15/2025 [facility] Care Teams (unrecognized sec tion and content) Email Campaign Manager Relationship Specialty Start Date End Date Jose Miguel Herbert MD [address] [address] PCP - General Family Practice 07/29/21 Email Campaign Manager Relationship Specialty Start Date End Date Jose Miguel Herbert MD [address] [place] [address] PCP - General [facility] Practice 07/29/21 Email Campaign Manager Relationship Specialty Start Date End Date Jose Miguel Herbert MD [address] [place] [address] PCP - General [facility] Medicine 07/29/21 Email Campaign Manager Relationship Specialty Start Date End Date Jose Miguel Herbert MD [address] [place] [address] PCP - General [facility] Medicine 07/29/21 Team Status: Active Member Role Status Dates Dr. Loc Sharp MD Family Provider Active Dr. Jose Miguel Herbert MD Primary Care Provider Active Team Status: Active Member Role Status Dates Dr. Jose Miguel Herbert MD Primary Care Provider Active Dr. Jonathan Estrada MD Emergency Provider Active Dr. Jonathan Fernando DO Admit Provider, Attending Pro vider Active Email Campaign Manager Relationship Specialty Start Date End Date Jose Miguel Herbert MD [address] [place] [address] PCP - General [facility] Medicine 07/29/21 Team Status: Active Member Role Status Dates Dr. Jose Miguel Herbert MD Primary Care Provider Active Dr. Abundio Zepeda MD Attending Provider Active Team Status: Active Member Role Status Dates Dr. Jose Miguel Herbert MD Primary Care Provider Active Dr. Jonathan Estrada MD Emergency Provider Active Dr. Jonathan Fernando DO Admit Provider, Attending Provider, Other Provider Active Team Status: Inactive Member Role Status Dates Dr. Jose Miguel Herbert MD Primary Care Provider Active Dr. Jonathan Estrada MD Emergency Provider Active Dr. Jonathan Fernando DO Admit Provider, Attending Pro vider Active Email Campaign Manager Relationship Specialty Start Date End Date Jose Miguel Herbert MD [address] [place] [address] PCP - [facility] Medicine 07/29/21 Email Campaign Manager Relationship Specialty Start Date End Date Jose Miguel Herbert MD [address] [place] [address] PCP - General Family Medicine 07/29/21 Email Campaign Manager Relationship Specialty Start Date End Date Jose Miguel Herbert MD [address] [place] [address] PCP - General Family Medicine 07/29/21 Email Campaign Manager Relationship Specialty Start Date End Date Jose Miguel Herbert MD [address] [place] [address] PCP - General Family Medicine 07/29/21 Email Campaign Manager Relationship Specialty Start Date End Date Jose Miguel Herbert MD [address] [place] [address] PCP - General Family Medicine 07/29/21 Email Campaign Manager Relationship Specialty Start Date End Date Jose Miguel Herbert MD [address] [place] [address] PCP - General Family Medicine 07/29/21 Email Campaign Manager Relationship Specialty Start Date End Date Jose Miguel Herbert MD [address] [place] [address] PCP - General Family Medicine 07/29/21 Email Campaign Manager Relationship Specialty Start Date End Date Jose Miguel Herbert MD [address] [place] [address] PCP - General Family Medicine 07/29/21 Dina Tolentino RN Specialty Child Welfare Manager Oncology 04/19/23 Jose Hugo DO [address] [place] [address] Physician Hematology/Oncology 04/19/23 Email Campaign Manager Relationship Specialty Start Date End Date Jose Miguel Herbert MD [address] [place] [address] PCP - General Family Medicine 07/29/21 Dina Tolentino RN Specialty Child Welfare Manager Oncology 04/19/23 Jose Hugo DO [address] [facility] [place] [address] Physician Hematology/Oncology 04/19/23 Email Campaign Manager Relationship Specialty Start Date End Date Jose Miguel Herbert MD [address] [place] [address] PCP - General Family Medicine 07/29/21 Dina Tolentino RN Specialty Child Welfare Manager Oncology 04/19/23 Jose Hugo DO [address] [facility] [place] [address] Physician Hematology/Oncology 04/19/23 Email Campaign Manager Relationship Specialty Start Date End Date Jose Miguel Herbert MD [address] [place] [address] PCP - General Family Medicine 07/29/21 Dina Tolentino RN Specialty Child Welfare Manager Oncology 04/19/23 Jose Hugo DO [address] [facility] [place] [address] Physician Hematology/Oncology 04/19/23 Email Campaign Manager Relationship Specialty Start Date End Date Jose Miguel Herbert MD [address] [place] [address] PCP - General Family Medicine 07/29/21 Dina Tolentino RN Specialty Child Welfare Manager Oncology 04/19/23 Jose Hugo DO [address] [facility] [place] [address] Physician Hematology/Oncology 04/19/23 Denise Wagoner LISW [address] [place] [address] Horticulture Instructor Hematology/Oncology 04/21/23 Team Status: Active Member Role Status Dates Dr. Jose Miguel Herbert MD Primary Care Provider Active Dr. Abundio Zepeda MD Attending Provider Active Dr. Jonathan Fernando DO Referring Provider Active Team Status: Active Member Role Status Dates Dr. Jose Miguel Herbert MD Primary Care Pro vider, Referring Provider, Other Provider Active Dr. Demetri Do MD Attending Provider Activ e Team Status: Inactive Member Role Status Dates Dr. Jose Miguel Herbert MD Primary Care Provider Active Dr. Kit Crisostomo MD Attending Provider, Refe rring Provider Active Team Status: Inactive Member Role Status Dates Dr. Jose Miguel Herbert MD Primary Care Pro vider, Attending Provider, Referring Provider Active Email Campaign Manager Relationship Specialty Start Date End Date Jose Miguel Herbert MD [address] [place] [address] PCP - General Family Medicine 07/29/21 Dina Tolentino RN Specialty Child Welfare Manager Oncology 04/19/23 Jose Hugo DO [address] [facility] [place] [address] Physician Hematology/Oncology 04/19/23 Email Campaign Manager Relationship Specialty Start Date End Date Jose Miguel Herbert MD [address] [facility], [place] [id number] PCP - General Family Medicine 07/29/21 Dina Tolentino RN Specialty Child Welfare Manager Oncology 04/19/23 Jose Hugo DO [address] [facility] [place] [address] Physician Hematology/Oncology 04/19/23 Denise Wagoner, ARTIST [employer] [address] [place] [address] Horticulture Instructor Hematology/Oncology 04/21/23 Email Campaign Manager Relationship Specialty Start Date End Date Jose Miguel Herbert MD [address] [place] [address] PCP - General Family Medicine 07/29/21 Dina Tolentino RN Specialty Child Welfare Manager Oncology 04/19/23 Jose Hugo DO [address] [place] [address] Physician Hematology/Oncology 04/19/23 Denise Wagoner, ARTIST [employer] [address] [place] [address] Horticulture Instructor Hematology/Oncology 04/21/23 Email Campaign Manager Relationship Specialty Start Date End Date Jose Miguel Herbert MD [address] [place] [address] PCP - General Family Medicine 07/29/21 Dina Tolentino RN Specialty Child Welfare Manager Oncology 04/19/23 Jose Hugo DO [address] [place] [address] Physician Hematology/Oncology 04/19/23 Denise Wagoner, ARTIST [employer] [address] [place] [address] Horticulture Instructor Hematology/Oncology 04/21/23 Email Campaign Manager Relationship Specialty Start Date End Date Jose Miguel Herbert MD [address] [place] [address] PCP - General Family Medicine 07/29/21 Dina Tolentino RN Specialty Child Welfare Manager Oncology 04/19/23 Jose Hugo DO [address] [place] [address] Physician Hematology/Oncology 04/19/23 Denise Wagoner LISW [address] [place] [address] Horticulture Instructor Hematology/Oncology 04/21/23 Email Campaign Manager Relationship Specialty Start Date End Date Jose Miguel Herbert MD [address] [place] [address] PCP - General Family Medicine 07/29/21 Dina Tolentino RN Specialty Child Welfare Manager Oncology 04/19/23 Jose Hugo DO [address] [place] [address] Physician Hematology/Oncology 04/19/23 Denise Wagoner LISW [address] [place] [address] Horticulture Instructor Hematology/Oncology 04/21/23 Email Campaign Manager Relationship Specialty Start Date End Date Jose Miguel Herbert MD [address] [place] [address] PCP - General Family Medicine 07/29/21 Dina Tolentino RN Specialty Child Welfare Manager Oncology 04/19/23 Jose Hugo DO [address] [place] [address] Physician Hematology/Oncology 04/19/23 Denise Wagoner, REESE [address] [place] [address] Horticulture Instructor Hematology/Oncology 04/21/23 Email Campaign Manager Relationship Specialty Start Date End Date Jose Miguel Herbert MD [address] [place] [address] PCP - General Family Medicine 07/29/21 Dina Tolentino RN Specialty Child Welfare Manager Oncology 04/19/23 Jose Hugo DO [address] [place] [address] Physician Hematology/Oncology 04/19/23 Denise Wagoner LISW [address] [place] [address] Horticulture Instructor Hematology/Oncology 04/21/23 Email Campaign Manager Relationship Specialty Start Date End Date Jose Miguel Herbert MD [address] [place] [address] PCP - General Family Medicine 07/29/21 Dina Tolentino RN Specialty Child Welfare Manager Oncology 04/19/23 Jose Hugo DO [address] [place] [address] Physician Hematology/Oncology 04/19/23 Denise Wagoner LISW [address] [place] [address] Horticulture Instructor Hematology/Oncology 04/21/23 Email Campaign Manager Relationship Specialty Start Date End Date Jose Miguel Herbert MD [address] [place] [address] PCP - General Family Medicine 07/29/21 Dina Tolentino RN Specialty Child Welfare Manager Oncology 04/19/23 Jose Hugo DO [address] [place] [address] Physician Hematology/Oncology 04/19/23 Denise Wagoner LISW [address] [place] [address] Horticulture Instructor Hematology/Oncology 04/21/23 Email Campaign Manager Relationship Specialty Start Date End Date Jose Miguel Herbert MD [address] [place] [address] PCP - General Family Medicine 07/29/21 Dina Tolentino RN Specialty Child Welfare Manager Oncology 04/19/23 Jose Hugo DO [address] [place] [address] Physician Hematology/Oncology 04/19/23 Denise Wagoner LISW [address] [place] [address] Horticulture Instructor Hematology/Oncology 04/21/23 Email Campaign Manager Relationship Specialty Start Date End Date Jose Miguel Herbert MD [address] [place] [address] PCP - General Family Medicine 07/29/21 Dina Tolentino RN Specialty Child Welfare Manager Oncology 04/19/23 Jose Hugo DO [address] [place] [address] Physician Hematology/Oncology 04/19/23 Denise Wagoner LISW [address] [place] [address] Horticulture Instructor Hematology/Oncology 04/21/23 Email Campaign Manager Relationship Specialty Start Date End Date Jose Miguel Herbert MD [address] [place] [address] PCP - General Family Medicine 07/29/21 Dina Tolentino RN Specialty Child Welfare Manager Oncology 04/19/23 Jose Hugo DO [address] [place] [address] Physician Hematology/Oncology 04/19/23 Denise Wagoner LISW [address] [place] [address] Horticulture Instructor Hematology/Oncology 04/21/23 Email Campaign Manager Relationship Specialty Start Date End Date Jose Miguel Herbert MD [address] [place] [address] PCP - General Family Medicine 07/29/21 Dina Tolentino RN Specialty Child Welfare Manager Oncology 04/19/23 Jose Hugo DO [address] [place] [address] Physician Hematology/Oncology 04/19/23 Denise Wagoner LISW [address] [place] [address] Horticulture Instructor Hematology/Oncology 04/21/23 Email Campaign Manager Relationship Specialty Start Date End Date Jose Miguel Herbert MD [address] [place] [address] PCP - General Family Medicine 07/29/21 Dina Tolentino RN Specialty Child Welfare Manager Oncology 04/19/23 Jose Hugo DO [address] [place] [address] Physician Hematology/Oncology 04/19/23 Denise Wagoner LISW [address] [place] [address] Horticulture Instructor Hematology/Oncology 04/21/23 Email Campaign Manager Relationship Specialty Start Date End Date Jose Miguel Herbert MD [address] [place] [address] PCP - General Family Medicine 07/29/21 Dina Tolentino RN Specialty Child Welfare Manager Oncology 04/19/23 Jose Hugo DO [address] [place] [address] Physician Hematology/Oncology 04/19/23 Denise Wagoner LISW [address] [place] [address] Horticulture Instructor Hematology/Oncology 04/21/23 Chester Patel MD [address] [place] [address] Cardiology 05/23/23 Desari, Jayprakash [address] [place] [address] 05/23/23 Email Campaign Manager Relationship Specialty Start Date End Date Jose Miguel Herbert MD [address] [place] [address] PCP - General Family Medicine 07/29/21 Dina Tolentino RN Specialty Child Welfare Manager Oncology 04/19/23 Jose Hugo DO [address] [place] [address] Physician Hematology/Oncology 04/19/23 Denise Wagoner LISW [address] [place] [address] Horticulture Instructor Hematology/Oncology 04/21/23 Chester Patel MD [address] [place] [address] Cardiology 05/23/23 Sonal Barth [address] [place] [address] 05/23/23 Email Campaign Manager Relationship Specialty Start Date End Date Jose Miguel Herbert MD [address] [place] [address] PCP - General Family Medicine 07/29/21 Dina Tolentino RN Specialty Child Welfare Manager Oncology 04/19/23 Jose Hugo DO [address] [place] [address] Physician Hematology/Oncology 04/19/23 Denise Wagoner LISW [address] [place] [address] Horticulture Instructor Hematology/Oncology 04/21/23 Chester Patel MD [address] [place] [place] [address] Cardiology 05/23/23 Sonal Barth [address] [place] [address] 05/23/23 Email Campaign Manager Relationship Specialty Start Date End Date Jose Miguel Herbert MD [address] [place] [address] PCP - General Family Medicine 07/29/21 Dina Tolentino, RN Specialty Child Welfare Manager Oncology 04/19/23 Jose Hugo DO [address] [place] [address] Physician Hematology/Oncology 04/19/23 Denise Wagoner LISW [address] [place] [address] Horticulture Instructor Hematology/Oncology 04/21/23 Chester Patel MD [address] [facility] [address] [place] [address] Cardiology 05/23/23 Sonal Barth [address] [place] [address] 05/23/23 Email Campaign Manager Relationship Specialty Start Date End Date Jose Miguel Herbert MD [address] [place] [address] PCP - General Family Medicine 07/29/21 Dina Tolentino, RN Specialty Child Welfare Manager Oncology 04/19/23 Jose Hugo DO [address] [facility] [place] [place] [address] Physician Hematology/Oncology 04/19/23 Denise Wagoner LISW [address] [place] [address] Horticulture Instructor Hematology/Oncology 04/21/23 Chester Patel MD [address] [place] [place] [address] Cardiology 05/23/23 Sonal Barth [address] [place] [place] [address] 05/23/23 Email Campaign Manager Relationship Specialty Start Date End Date Jose Miguel Herbert MD [address] [place] [address] PCP - General Family Medicine 07/29/21 Dina Tolentino RN Specialty Child Welfare Manager Oncology 04/19/23 Jose Hugo DO [address] [place] [address] Physician Hematology/Oncology 04/19/23 Denise Wagoner LISW [address] [place] [address] Horticulture Instructor Hematology/Oncology 04/21/23 Chester Patel MD [address] [place] [place] [address] Cardiology 05/23/23 Sonal Barth [address] [place] [place] [address] 05/23/23 Email Campaign Manager Relationship Specialty Start Date End Date Jose Miguel Herbert MD [address] [place] [address] PCP - General Family Medicine 07/29/21 Dina Tolentino RN Specialty Child Welfare Manager Oncology 04/19/23 Jose Hugo DO [address] [place] [place] [address] Physician Hematology/Oncology 04/19/23 Denise Wagoner LISW [address] [place] [address] Horticulture Instructor Hematology/Oncology 04/21/23 Chester Patel MD [address] [place] [address] [place] [address] Cardiology 05/23/23 Sonal Barth [address] [place] [address] 05/23/23 Email Campaign Manager Relationship Specialty Start Date End Date Jose Miguel [place] [facility] [address] [facility] [place] [address] PCP - General Family Medicine 07/29/21 Dina Tolentino RN Specialty Child Welfare Manager Oncology 04/19/23 Jose Hugo DO [address] [facility] [place] [address] Physician Hematology/Oncology 04/19/23 Denise Wagoner LISW [address] [facility] [place] [address] Horticulture Instructor Hematology/Oncology 04/21/23 Chester Patel MD [address] [place] [address] [place] [address] Cardiology 05/23/23 Sonal Barth [address] [place] [address] 05/23/23 Email Campaign Manager Relationship Specialty Start Date End Date Jose Miguel [place] MD [address] [facility] [place] [address] PCP - General Family Medicine 07/29/21 Dina Tolentino RN Specialty Child Welfare Manager Oncology 04/19/23 Jose Hugo DO [address] [place] [address] Physician Hematology/Oncology 04/19/23 Denise Wagoner LISW [address] [place] [address] Horticulture Instructor Hematology/Oncology 04/21/23 Chester Patel MD [address] [place], [place] [id number] Cardiology 05/23/23 Sonal Barth [address] [place] [address] 05/23/23 Email Campaign Manager Relationship Specialty Start Date End Date Jose Miguel [place] MD [address] [facility] [place] [address] PCP - General Family Medicine 07/29/21 Dina Tolentino RN Specialty Child Welfare Manager Oncology 04/19/23 Jose Hugo DO [address] [facility] [place] [address] Physician Hematology/Oncology 04/19/23 Denise Wagoner LISW [address] [place] [address] Horticulture Instructor Hematology/Oncology 04/21/23 Chester Patel MD [address] [place], [place] 3981195 Cardiology 05/23/23 Sonal Barth [address] [place] [address] 05/23/23 Email Campaign Manager Relationship Specialty Start Date End Date Jose Miguel [place] MD [address] [place] [address] PCP - General Family Medicine 07/29/21 Dina Tolentino RN Specialty Child Welfare Manager Oncology 04/19/23 Jose Hugo DO [address] [place] [address] Physician Hematology/Oncology 04/19/23 Denise Wagoner LISW [address] [place] [address] Horticulture Instructor Hematology/Oncology 04/21/23 Chester Patel MD [address] [place] [place] [address] Cardiology 05/23/23 Justa Tucker [address] [place] [address] [place] [address] 05/23/23 Email Campaign Manager Relationship Specialty Start Date End Date JoseM iguel [place] MD [address] [place] [address] PCP - General Family Medicine 07/29/21 Dina Tolentino RN Specialty Child Welfare Manager Oncology 04/19/23 Jose Hugo DO [address] [place] [address] Physician Hematology/Oncology 04/19/23 Denise Wagoner LISW [address] [place] [address] Horticulture Instructor Hematology/Oncology 04/21/23 Chester Patel MD [address] [place], [place] [address] Cardiology 05/23/23 CaitlinDarwinza [address] [place] [address] [place] [address] 05/23/23 Email Campaign Manager Relationship Specialty Start Date End Date Jose Miguel [place] MD [address] [place] [address] PCP - General Family Medicine 07/29/21 Dina Tolentino RN Specialty Child Welfare Manager Oncology 04/19/23 Jose Hugo DO [address] [place] [address] Physician Hematology/Oncology 04/19/23 Denise Wagoner LISW [address] [place] [address] Horticulture Instructor Hematology/Oncology 04/21/23 Chester Patel MD [address] [place] [place] [address] Cardiology 05/23/23 CaitlinDarwinverenakevan [address] [place] [place] [address] 05/23/23 Email Campaign Manager Relationship Specialty Start Date End Date Jose Miguel [place] MD [address] [place] [address] PCP - General Family Medicine 07/29/21 Dina Tolentino RN Specialty Child Welfare Manager Oncology 04/19/23 Jose Hugo DO [address] [place] [address] Physician Hematology/Oncology 04/19/23 Denise Wagoner LISW [address] [place] [address] Horticulture Instructor Hematology/Oncology 04/21/23 Chester Patel MD [address] [place] [place] [address] Cardiology 05/23/23 Caitlin Justa [address] [place] [address] [place] [address] 05/23/23 Email Campaign Manager Relationship Specialty Start Date End Date Jose Miguel [place] MD [address] [place] [address] PCP - General Family Medicine 07/29/21 Dina Tolentino, COLT Specialty Child Welfare Manager Oncology 04/19/23 Jose Hugo DO [address] [place] [address] Physician Hematology/Oncology 04/19/23 Denise Wagoner LISW [address] [place] [address] Horticulture Instructor Hematology/Oncology 04/21/23 Chester Patel MD [address] [place] [place] [address] Cardiology 05/23/23 Caitlin Justa [address] [place] [place] [address] 05/23/23 Email Campaign Manager Relationship Specialty Start Date End Date Jose Miguel Herbert MD [address] [place] [address] PCP - General Family Medicine 07/29/21 Email Campaign Manager Relationship Specialty Start Date End Date Jose Miguel Herbert MD [address] [place] [address] PCP - General Family Medicine 07/29/21 Email Campaign Manager Relationship Specialty Start Date End Date Jose Miguel Herbert MD [address] [place] [address] PCP - General Family Medicine 07/29/21 Email Campaign Manager Relationship Specialty Start Date End Date Jose Miguel Herbert MD [address] [place] [address] PCP - General Family Medicine 07/29/21 Email Campaign Manager Relationship Specialty Start Date End Date Jose Miguel Herbert MD [address] [place] [address] PCP - General Family Medicine 07/29/21 Email Campaign Manager Relationship Specialty Start Date End Date Jose Miguel Herbert MD [address] [place] [address] PCP - General Family Medicine 07/29/21 Dina Tolentino RN Specialty Child Welfare Manager Oncology 04/19/23 Jose Hugo DO [address] [place] [address] Physician Hematology/Oncology 04/19/23 Denise Wagoner LISW [address] [place] [address] Horticulture Instructor Hematology/Oncology 04/21/23 Chester Patel MD [address] [place] [place] [address] Cardiology 05/23/23 Justa Tucker [address] [place] [address] [place] [address] 05/23/23 Email Campaign Manager Relationship Specialty Start Date End Date Jose Miguel [place] MD [address] [place], [place] 647567 [phone] PCP - General Family Medicine 07/29/21 Dina Tolentino RN Specialty Child Welfare Manager Oncology 04/19/23 Jose Hugo DO [address] [facility] [place] [address] Physician Hematology/Oncology 04/19/23 Denise Wagoner, REESE [address] [facility] [place] [address] Horticulture Instructor Hematology/Oncology 04/21/23 Chester Patel MD [address] [place] [place] [address] Cardiology 05/23/23 Justa Tucker [address] [place] [place] [address] 05/23/23 Email Campaign Manager Relationship Specialty Start Date End Date Jose Miguel [place] MD [address] [place] [address] PCP - General Family Medicine 07/29/21 Dina Tolentino RN Specialty Child Welfare Manager Oncology 04/19/23 Jose Hugo DO [address] [facility] [place] [address] Physician Hematology/Oncology 04/19/23 Denise Wagoner, REESE [address] [place] [address] Horticulture Instructor Hematology/Oncology 04/21/23 Chester Patel MD [address] [place] [place] [address] Cardiology 05/23/23 Justa Tucker [address] [place] [address] [place] [address] 05/23/23 Email Campaign Manager Relationship Specialty Start Date End Date Jose Miguel Herbert MD [address] [place] [address] PCP - General Family Medicine 07/29/21 Dina Tolentino RN Specialty Child Welfare Manager Oncology 04/19/23 Jose Hugo DO [address] [place] [address] Physician Hematology/Oncology 04/19/23 Denise Wagoner LISW [address] [place] [address] Horticulture Instructor Hematology/Oncology 04/21/23 Chester Patel MD [address] [place] [place] [address] Cardiology 05/23/23 Justa Tucker [address] [place] [address] [place] [address] 05/23/23 Email Campaign Manager Relationship Specialty Start Date End Date Jose Miguel Herbert MD [address] [place] [address] PCP - General Family Medicine 07/29/21 Dina Tolentino RN Specialty Child Welfare Manager Oncology 04/19/23 Jose Hugo DO [address] [place] [address] Physician Hematology/Oncology 04/19/23 Denise Wagoner LISW [address] [place] [address] Horticulture Instructor Hematology/Oncology 04/21/23 Chester Patel MD [address] [place] [place] [address] Cardiology 05/23/23 Justa Tucker [address] [place] [address] [place] [address] 05/23/23 Email Campaign Manager Relationship Specialty Start Date End Date Jose Miguel Herbert MD [address] [facility] [address] PCP - General Family Medicine 07/29/21 Dina Tolentino, RN Specialty Child Welfare Manager Oncology 04/19/23 Jose Hugo DO [address] [place] [address] Physician Hematology/Oncology 04/19/23 Denise Wagoner LISW [address] [place] [address] Horticulture Instructor Hematology/Oncology 04/21/23 Chester Patel MD [address] [place] [place] [address] Cardiology 05/23/23 Justa Tucker [address] [place] [address] [place] [address] 05/23/23 Email Campaign Manager Relationship Specialty Start Date End Date Jose Miguel Herbert MD [address] [place] [address] PCP - General Family Medicine 07/29/21 Dina Tolentino RN Specialty Child Welfare Manager Oncology 04/19/23 Jose Hugo DO [address] [place] [address] Physician Hematology/Oncology 04/19/23 Denise Wagoner LISW [address] [place] [address] Horticulture Instructor Hematology/Oncology 04/21/23 Chester Patel MD [address] [place], [place] 2266395 Cardiology 05/23/23 Justa Tucker [address] [place] [place] [address] 05/23/23 Email Campaign Manager Relationship Specialty Start Date End Date Jose Miguel Herbert MD [address] [place] [address] PCP - General Family Medicine 07/29/21 Dina Tolentino RN Specialty Child Welfare Manager Oncology 04/19/23 Jose Hugo DO [address] [place] [address] Physician Hematology/Oncology 04/19/23 Denise Wagoner LISW [address] [place] [address] Horticulture Instructor Hematology/Oncology 04/21/23 Chester Patel MD [address] [place] [place] [address] Cardiology 05/23/23 Justa Tucker [address] [place] [address] [place] [address] 05/23/23 Email Campaign Manager Relationship Specialty Start Date End Date Jose Miguel Herbert MD [address] [place] [address] PCP - General Family Medicine 07/29/21 Dina Tolentino RN Specialty Child Welfare Manager Oncology 04/19/23 Jose Hugo DO [address] [place] [address] Physician Hematology/Oncology 04/19/23 Denise Wagoner LISW [address] [place] [address] Horticulture Instructor Hematology/Oncology 04/21/23 Chester Patel MD [address] [place], [place] 1523295 Cardiology 05/23/23 Justa Tucker [address] [place] [place] [address] 05/23/23 Email Campaign Manager Relationship Specialty Start Date End Date Jose Miguel Herbert MD [address] [place] [address] PCP - General Family Medicine 07/29/21 Dina Tolentino RN Specialty Child Welfare Manager Oncology 04/19/23 Jose Hugo DO [address] [place] [address] Physician Hematology/Oncology 04/19/23 Denise Wagoner LISW [address] [place] [address] Horticulture Instructor Hematology/Oncology 04/21/23 Chester Patel MD [address] [place] [place] [address] Cardiology 05/23/23 Justa Tucker [address] [place] [place] [address] 05/23/23 Email Campaign Manager Relationship Specialty Start Date End Date Jose Miguel Herbert MD [address] [facility] [place] [address] PCP - General Family Medicine 07/29/21 Dina Tolentino RN Specialty Child Welfare Manager Oncology 04/19/23 Jose Hugo DO [address] [facility] [place] [address] Physician Hematology/Oncology 04/19/23 Denise Wagoner LISW [address] [place] [address] Horticulture Instructor Hematology/Oncology 04/21/23 Chester Patel MD [address] [place] [place] [address] Cardiology 05/23/23 Darwin Tuckerverenakevan [address] [place] [place] [address] 05/23/23 Email Campaign Manager Relationship Specialty Start Date End Date Jose Miguel Herbert MD [address] [facility] [place] [address] PCP - General Family Medicine 07/29/21 Dina Tolentino, RN Specialty Child Welfare Manager Oncology 04/19/23 Jose Hugo DO [address] [place] [address] Physician Hematology/Oncology 04/19/23 Denise Wagoner LISW [address] [place] [address] Horticulture Instructor Hematology/Oncology 04/21/23 Chester Patel MD [address] [place] [place] [address] Cardiology 05/23/23 CaitlinDarwinverenakevan [address] [place] [place] [address] 05/23/23 Email Campaign Manager Relationship Specialty Start Date End Date Jose Miguel Herbert MD [address] [place] [address] PCP - General Family Medicine 07/29/21 Dina Tolentino RN Specialty Child Welfare Manager Oncology 04/19/23 Jose Hugo DO [address] [place] [address] Physician Hematology/Oncology 04/19/23 Denise Wagoner LISW [address] [place] [address] Horticulture Instructor Hematology/Oncology 04/21/23 Chester Patel MD [address] [place] [place] [address] Cardiology 05/23/23 CaitlinLuis Eduardo arreolawen [address] [place] [place] [address] 05/23/23 Email Campaign Manager Relationship Specialty Start Date End Date Jose Miguel Herbert MD [address] [facility] [address] PCP - General Family Medicine 07/29/21 Dina Tolentino, COLT Specialty Child Welfare Manager Oncology 04/19/23 Jose Hugo DO [address] [place] [address] Physician Hematology/Oncology 04/19/23 Denise Wagoner LISW [address] [place] [address] Horticulture Instructor Hematology/Oncology 04/21/23 Chester Patel MD [address] [place] [place] [address] Cardiology 05/23/23 Caitlin Peterorlando [address] [place] [place] [address] 05/23/23 Email Campaign Manager Relationship Specialty Start Date End Date Jose Miguel Herbert MD [address] [place] [address] PCP - General Family Medicine 07/29/21 Dina Tolentino, COLT Specialty Child Welfare Manager Oncology 04/19/23 Jose Hugo DO [address] [facility] [place] [address] Physician Hematology/Oncology 04/19/23 Denise Wagoner LISW [address] [place] [address] Horticulture Instructor Hematology/Oncology 04/21/23 Chester Patel MD [address] [place] [address] Cardiology 05/23/23 Justa Tucker [address] [place] [address] 05/23/23 Laverne Ramirez MD [address] [place] [address] Referring Internal Medicine 09/15/23 Jose Miguel Herbert MD [address] [place] [address] 709531 Home Care Provider Family Medicine 09/19/23 Gumaro Pé[place] [address] [place] [address] Nephrology 10/23/23 Email Campaign Manager Relationship Specialty Start Date End Date Jose Miguel Herbert MD [address] [place] [address] 717951 PCP - General Family Medicine 07/29/21 Dina Tolentino, COLT Specialty Child Welfare Manager Oncology 04/19/23 Jose Hugo DO [address] [place] [address] Physician Hematology/Oncology 04/19/23 Denise Wagoner LISW [address] [place] [address] Horticulture Instructor Hematology/Oncology 04/21/23 Chester Patel MD [address] [place] [place] [address] Cardiology 05/23/23 Justa Tucker [address] [place], [place] [address] 05/23/23 Laverne Ramirez MD [address] [place] [id number] Referring Internal Medicine 09/15/23 Jose Miguel Herbert MD [address] [place], [place] 469531 Home Care Provider Family Medicine 09/19/23 Gumaro Pé[place] [address] [place] [address] Nephrology 10/23/23 Email Campaign Manager Relationship Specialty Start Date End Date Jose Miguel Herbert MD [address] [place] [address] PCP - General Family Medicine 07/29/21 Dina Tolentino, COLT Specialty Child Welfare Manager Oncology 04/19/23 Jose Hugo DO [address] [place], [place] 116[address]91 Physician Hematology/Oncology 04/19/23 Denise Wagoner LISW [address] [place] [address] Horticulture Instructor Hematology/Oncology 04/21/23 Chester Patel MD [address] [place] [address] Cardiology 05/23/23 Justa Tucker [address] [place] [place] [address] 05/23/23 Laverne Ramirez MD [address] 0548028 178- Referring Internal Medicine 09/15/23 Jose Miguel Herbert MD [address] [place], [place] 141541 Home Care Provider Family Medicine 09/19/23 Gumaro Pé[place] [address] [place] [address] Nephrology 10/23/23 Email Campaign Manager Relationship Specialty Start Date End Date Jose Miguel Herbert MD [address] [place], [place] 941501 PCP - General Family Medicine 07/29/21 Dina Tolentino RN Specialty Child Welfare Manager Oncology 04/19/23 Jose Hugo DO [address] [place] [address] Physician Hematology/Oncology 04/19/23 Denise Wagoner LISW [address] [place] [address] Horticulture Instructor Hematology/Oncology 04/21/23 Chester Patel MD [address] [place] [address] Cardiology 05/23/23 Justa Tucker [address] [place] [place] [address] 05/23/23 Laverne Ramirez MD [address] [id number] Referring Internal Medicine 09/15/23 Jose Miguel Herbert MD [address] [place], [place] 318941 Home Care Provider Family Medicine 09/19/23 Gumaro Pérez [place] [address] [place], [place] 5320930 Nephrology 10/23/23 Email Campaign Manager Relationship Specialty Start Date End Date Jose Miguel Herbert MD [address] [place], [place] 269361 PCP - General Family Medicine 07/29/21 Dina Tolentino RN Specialty Child Welfare Manager Oncology 04/19/23 Jose Hugo DO [address] [place], [place] 93781691 Physician Hematology/Oncology 04/19/23 Denise Wagoner LISW [address] [place] [address] Horticulture Instructor Hematology/Oncology 04/21/23 Chester Patel MD [address] [place] [address] Cardiology 05/23/23 Justa Tucker [address] [place] [place] [address] 05/23/23 Laverne Ramirez MD [address] [place] [address] Referring Internal Medicine 09/15/23 Jose Miguel Herbert MD [address] [place], [place] 98667691 Home Care Provider Family Medicine 09/19/23 Gumaro Pé[place] [address] [place] [address] Nephrology 10/23/23 Email Campaign Manager Relationship Specialty Start Date End Date Jose Miguel Herbert MD [address] [place], [place] 751801 PCP - General Family Medicine 07/29/21 Dina Tolentino RN Specialty Child Welfare Manager Oncology 04/19/23 Jose Hugo DO [address] [place] [address] Physician Hematology/Oncology 04/19/23 Denise Wagoner LISW [address] [place] [address] Horticulture Instructor Hematology/Oncology 04/21/23 Chester Patel MD [address] [place] [place] [address] Cardiology 05/23/23 Justa Tucker [address] [place] [address] [place] [address] 05/23/23 Laverne Ramirez MD [address] [place] [address] Referring Internal Medicine 09/15/23 Jose Miguel Herbert MD [address] [place] [address] Home Care Provider Family Medicine 09/19/23 Gumaro Pérez [place] [address] [place], [place] 7428130 Nephrology 10/23/23 Email Campaign Manager Relationship Specialty Start Date End Date Jose Miguel Herbert MD [address] [place] [address] PCP - General Family Medicine 07/29/21 Dina Tolentino RN Specialty Child Welfare Manager Oncology 04/19/23 Jose Hugo DO [address] [place], [place] 697901 Physician Hematology/Oncology 04/19/23 Denise Wagoner LISW [address] [place] [address] Horticulture Instructor Hematology/Oncology 04/21/23 Chester Patel MD [address] [place] [place] [address] Cardiology 05/23/23 Justa Tucker [address] [place] [place] [address] 05/23/23 Laverne Ramirez MD [address] [place], [place] 7629195 Referring Internal Medicine 09/15/23 Jose Miguel Herbert MD [address] [place], [place] [id number] Home Care Provider Family Medicine 09/19/23 Gumaro Pé[place] [address] [place] [address] Nephrology 10/23/23 Email Campaign Manager Relationship Specialty Start Date End Date Jose Miguel Herbert MD [address] [place] [address] PCP - General Family Medicine 07/29/21 Dina Tolentino RN Specialty Child Welfare Manager Oncology 04/19/23 Jose Hugo DO [address] [place] [address] Physician Hematology/Oncology 04/19/23 Denise Wagoner LISW [address] [place] [address] Horticulture Instructor Hematology/Oncology 04/21/23 Chester Patel MD [address] [place] [place] [address] Cardiology 05/23/23 Justa Tucker [address] [place] [place] [address] 05/23/23 Laverne Ramirez MD [address] [place], [place] [id number] Referring Internal Medicine 09/15/23 Jose Miguel Herbert MD [address] [place], [place] [id number] Home Care Provider Family Medicine 09/19/23 Gumaro Pé[place] [address] [place], [place] [phone] Nephrology 10/23/23 Email Campaign Manager Relationship Specialty Start Date End Date Jose Miguel Herbert MD [address] [place], [place] 326801 PCP - General Family Medicine 07/29/21 Dina Tolentino, COLT Specialty Child Welfare Manager Oncology 04/19/23 Jose Hugo DO [address] [place], [place] [id number] Physician Hematology/Oncology 04/19/23 Denise Wagoner LISW [address] [place] [address] Horticulture Instructor Hematology/Oncology 04/21/23 Chester Patel MD [address] [place] [place] [address] Cardiology 05/23/23 Justa Tucker [address] [place] [place] [address] 05/23/23 Laverne Ramirez MD [address] [place], [place] [phone] Referring Internal Medicine 09/15/23 Jose Miguel Herbert MD [facility] [place], [place] [id number] Home Care Provider Family Medicine 09/19/23 Gumaro Pé[place] [address] [place] [address] Nephrology 10/23/23 Email Campaign Manager Relationship Specialty Start Date End Date Jose Miguel Herbert MD [address] [place] [address] [phone] PCP - General Family Medicine 07/29/21 Dina Tolentino, COLT Specialty Child Welfare Manager Oncology 04/19/23 Jose Hugo DO [address] [place], [place] [id number] Physician Hematology/Oncology 04/19/23 Denise Wagoner LISW [address] [place] [address] Horticulture Instructor Hematology/Oncology 04/21/23 Chester Patel MD [address] [place], [place] 2634895 Cardiology 05/23/23 Justa Tucker [address] [place] [place] [address] 05/23/23 Laverne Ramirez MD [address] [phone] Referring Internal Medicine 09/15/23 Jose Miguel Herbert MD [facility] [place], [place] 542181 Home Care Provider Family Medicine 09/19/23 Gumaro Pé[place] [address] [place] [address] Nephrology 10/23/23 Email Campaign Manager Relationship Specialty Start Date End Date Jose Miguel Herbert MD [address] [place] [address] [id number] PCP - General Family Medicine 07/29/21 Dina Tolentino RN Specialty Child Welfare Manager Oncology 04/19/23 Jose Hugo DO [address] [place], [place] 976881 Physician Hematology/Oncology 04/19/23 Denise Wagoner LISW [address] [place] [address] Horticulture Instructor Hematology/Oncology 04/21/23 Chester Patel MD [address] [facility] [place] [address] Cardiology 05/23/23 Justa Tucker [address] [employer] [address] [place] [phone] 05/23/23 Laverne Ramirez MD [address] [phone] Referring Internal Medicine 09/15/23 Jose Miguel Herbert MD [facility] [place], [place] [phone] Home Care Provider Family Medicine 09/19/23 Gumaro Pé[place] [address] [place] [address] Nephrology 10/23/23 Email Campaign Manager Relationship Specialty Start Date End Date Jose Miguel Herbert MD [address] [place], [place] 407261 PCP - General Family Medicine 07/29/21 Dina Tolentino, COLT Specialty Child Welfare Manager Oncology 04/19/23 Jose Hugo DO [address] [place] [address] Physician Hematology/Oncology 04/19/23 Denise Wagoner LISW [address] [place] [address] Horticulture Instructor Hematology/Oncology 04/21/23 Chester Patel MD [address] [place] [id number] Cardiology 05/23/23 Justa Tucker [address] [place] [id number] 05/23/23 Laverne Ramirez MD [address] [place] [address] Referring Internal Medicine 09/15/23 Jose Miguel Herbert MD [address] [place], [place] [id number] Home Care Provider Family Medicine 09/19/23 Gumaro Pé[place] [address] [place] [address] Nephrology 10/23/23 Email Campaign Manager Relationship Specialty Start Date End Date Jose Miguel Herbert MD [address] [place], [place] 084161 PCP - General Family Medicine 07/29/21 Dina Tolentino, RN Specialty Child Welfare Manager Oncology 04/19/23 Jose Hugo DO [address] [place] [address] Physician Hematology/Oncology 04/19/23 Denise Wagoner LISW [address] [place] [address] Horticulture Instructor Hematology/Oncology 04/21/23 Chester Patel MD [address] [place] [place] [address] Cardiology 05/23/23 Justa Tucker [address] [place] [address] [place] [address] 05/23/23 Laverne Ramirez MD [address] [place] [address] Referring Internal Medicine 09/15/23 Jose Miguel Herbert MD [address] [place], [place] 542691 Home Care Provider Family Medicine 09/19/23 Gumaro [place] [address] [place] [address] Nephrology 10/23/23 Email Campaign Manager Relationship Specialty Start Date End Date Jose Miguel Herbert MD [address] [place], [place] 510051 PCP - General Family Medicine 07/29/21 Dina Tolentino, RN Specialty Child Welfare Manager Oncology 04/19/23 Jose Hugo DO [address] [place], [place] 265031 Physician Hematology/Oncology 04/19/23 Denise Wagoner LISW [address] [place] [address] Horticulture Instructor Hematology/Oncology 04/21/23 Chester Patel MD [address] [place] [place] [address] Cardiology 05/23/23 Justa Tucker [address] [place] [place] [address] 05/23/23 Laverne Ramirez MD [address] [place] [address] Referring Internal Medicine 09/15/23 Jose Miguel Herbert MD [address] [place], [place] [id number] Home Care Provider Family Medicine 09/19/23 Gumaro Pé[place] [address] [place] [address] Nephrology 10/23/23 Email Campaign Manager Relationship Specialty Start Date End Date Jose Miguel Herbert MD [address] [place] [address] PCP - General Family Medicine 07/29/21 Dina Tolentino, RN Specialty Child Welfare Manager Oncology 04/19/23 Jose Hugo DO [address] [place], [place] 435121 Physician Hematology/Oncology 04/19/23 Denise Wagoner, REESE [address] [place] [address] Horticulture Instructor Hematology/Oncology 04/21/23 Chester Patel MD [address] [place] [place] [address] Cardiology 05/23/23 Justa Tucker [address] [place] [place] [address] 05/23/23 Laverne Ramirez MD [address] [place] [address] Referring Internal Medicine 09/15/23 Jose Miguel Herbert MD [address] [place], [place] 28462691 Home Care Provider Family Medicine 09/19/23 Gumaro Pé[place] [address] [place], [place] 4872930 Nephrology 10/23/23 Email Campaign Manager Relationship Specialty Start Date End Date Jose Miguel Herbert MD [address] [place], [place] 468451 PCP - General Family Medicine 07/29/21 Dina Tolentino RN Specialty Child Welfare Manager Oncology 04/19/23 Jose Hugo DO [address], [place] [id number] Physician Hematology/Oncology 04/19/23 Denise Wagoner, REESE [address] [place] [address] Horticulture Instructor Hematology/Oncology 04/21/23 Chester Patel MD [address] [place] [place] [address] Cardiology 05/23/23 Justa Tucker [address] Desk -[address] [place] [address] 05/23/23 Laverne Ramirez MD [address] [place], [place] [id number] Referring Internal Medicine 09/15/23 Jose Miguel Herbert MD [address] [place], [place] [id number] Home Care Provider Family Medicine 09/19/23 Gumaro Pé[place] [address] [place] [address] Nephrology 10/23/23 Email Campaign Manager Relationship Specialty Start Date End Date Jose Miguel Herbert MD [address] [place], [place] [id number] PCP - General Family Medicine 07/29/21 Dina Tolentino, COLT Specialty Child Welfare Manager Oncology 04/19/23 Jose Hugo DO [address] [place], [place] [id number] Physician Hematology/Oncology 04/19/23 Denise Wagoner LISW [address] [place] [address] Horticulture Instructor Hematology/Oncology 04/21/23 Chester Patel MD [address] Desk -[address] [place] [address] [id number] Cardiology 05/23/23 Justa Tucker [address] Desk -[address] [place] [address] 05/23/23 Laverne Ramirez MD [address] [place] [id number] Referring Internal Medicine 09/15/23 Jose Miguel Herbert MD [address] [place], [place] 798131 Home Care Provider Family Medicine 09/19/23 Gum[place] [address] [place] [address] Nephrology 10/23/23 Email Campaign Manager Relationship Specialty Start Date End Date Jose Miguel Herbert MD [address] [place] [address] 517101 PCP - General Family Medicine 07/29/21 Dina Tolentino RN Specialty Child Welfare Manager Oncology 04/19/23 Jose Hugo DO [address] [place] [address] Physician Hematology/Oncology 04/19/23 Denise Wagoner LISW [address] [place] [address] Horticulture Instructor Hematology/Oncology 04/21/23 [place] [address] [place], [place] [address]d Ave Desk -[address] [place], [place] 350[address] Cardiology 05/23/23 Justa Tucker [address] [place] [address] 05/23/23 Laverne Ramirez MD [address] [place] [id number] Referring Internal Medicine 09/15/23 Jose Miguel Herbert MD [address] [place], [place] 224631 Home Care Provider Family Medicine 09/19/23 Gumaro [place] [address] [place] [address] Nephrology 10/23/23 Email Campaign Manager Relationship Specialty Start Date End Date Jose Miguel Herbert MD [address] [place] [address] PCP - General Family Medicine 07/29/21 Dina Tolentino, COLT Specialty Child Welfare Manager Oncology 04/19/23 Jose Hugo DO [address] [place] [address] Physician Hematology/Oncology 04/19/23 Denise Wagoner LISW [address] [place] [address] Horticulture Instructor Hematology/Oncology 04/21/23 Chester Patel MD [address] [place] 4079195 Cardiology 05/23/23 Justa Tucker [address] [facility] [id number] 05/23/23 Laverne Ramirez MD [address] [place] [address] Referring Internal Medicine 09/15/23 Jose Miguel Herbert MD [address] [place], [place] 279851 Home Care Provider Family Medicine 09/19/23 Gumaro [place] [address] [place] [address] Nephrology 10/23/23 Team Status: Inactive Member Role Status Dates Dr. Jose Miguel Herbert MD Primary Care Provider Active Dr. Jose Miguel Fernandez MD Emergency Provider Active Team Status: Inactive Member Role Status Dates Dr. Jose Miguel Herbert MD Primary Care Provider Active Dr. Jonathan Estrada MD Emergency Provider Active Email Campaign Manager Relationship Specialty Start Date End Date Jose Miguel Herbert MD [address] [place], [place] [id number] PCP - General Family Medicine 07/29/21 Dina Tolentino RN Specialty Child Welfare Manager Oncology 04/19/23 Jose Hugo DO [address] [place], [place] [id number] Physician Hematology/Oncology 04/19/23 Denise Wagoner LISW [address] [place] [address] Horticulture Instructor Hematology/Oncology 04/21/23 Chester Patel MD [address] [facility] [place] [phone] Cardiology 05/23/23 Justa Tucker [address] [place] [address] 05/23/23 Laverne Ramirez MD [address] [place] [address] Referring Internal Medicine 09/15/23 Jose Miguel Herbert MD [address] [place], [place] 35208691 Home Care Provider Family Medicine 09/19/23 Gumaro [place] [address] [place] [address] Nephrology 10/23/23 Email Campaign Manager Relationship Specialty Start Date End Date Jose Miguel Herbert MD [address] [place], [place] 037151 PCP - General Family Medicine 07/29/21 Dina Tolentino, RN Specialty Child Welfare Manager Oncology 04/19/23 Jose Hugo DO [address] [place] [address] Physician Hematology/Oncology 04/19/23 Denise Wagoner LISW [address] [place] [address] Horticulture Instructor Hematology/Oncology 04/21/23 Chester Patel MD [address] [place] [address] Cardiology 05/23/23 Justa Tucker [address] [place] [place] [address] 05/23/23 Laverne Ramirez MD [address] [place] [address] Referring Internal Medicine 09/15/23 Jose Miguel Herbert MD [address] [place], [place] 342641 Home Care Provider Family Medicine 09/19/23 Gumaro Pé[place] [address] [place] [address] Nephrology 10/23/23 Email Campaign Manager Relationship Specialty Start Date End Date Jose Miguel Herbert MD [address] [place], [place] 884901 PCP - General Family Medicine 07/29/21 Dina Tolentino, RN Specialty Child Welfare Manager Oncology 04/19/23 Jose Hugo DO [address] [place], [place] 084841 Physician Hematology/Oncology 04/19/23 Denise Wagoner LISW [address] [place] [address] Horticulture Instructor Hematology/Oncology 04/21/23 Chester Patel MD [address] [place] [address] Cardiology 05/23/23 Justa Tucker [address] [place] [place] [address] 05/23/23 Laverne Ramirez MD [address] [place] [address] Referring Internal Medicine 09/15/23 Jose Miguel Herbert MD [address] [place], [place] 71943691 Home Care Provider Family Medicine 09/19/23 Gumaro [place] [address] [place] [address] Nephrology 10/23/23 Email Campaign Manager Relationship Specialty Start Date End Date Jose Miguel Herbert MD [address] [place] [address] PCP - General Family Medicine 07/29/21 Dina Tolentino, RN Specialty Child Welfare Manager Oncology 04/19/23 Jose Hugo DO [address] [place], [place] 555951 Physician Hematology/Oncology 04/19/23 Denise Wagoner, REESE [address] [place] [address] Horticulture Instructor Hematology/Oncology 04/21/23 Chester Patel MD [address] [place] [address] Cardiology 05/23/23 Justa Tucker [address] [place] [place] [address] 05/23/23 Laverne Ramirez MD [address] [place] [address] Referring Internal Medicine 09/15/23 Jose Miguel Herbert MD [address] [place], [place] 06990691 Home Care Provider Family Medicine 09/19/23 Gumaro Pé[place] [address] [place], [place] 3479230 Nephrology 10/23/23 Email Campaign Manager Relationship Specialty Start Date End Date Jose Miguel Herbert MD [address] [place], [place] 880741 PCP - General Family Medicine 07/29/21 Dina Tolentino RN Specialty Child Welfare Manager Oncology 04/19/23 Jose Hugo DO [address] [place], [place] [phone] Physician Hematology/Oncology 04/19/23 Denise Wagoner, REESE [address] [place] [address] Horticulture Instructor Hematology/Oncology 04/21/23 Chester Patel MD [address] [place] [place] [address] Cardiology 05/23/23 Justa Tucker [address] Desk -[address] [place] [address] 05/23/23 Laverne Ramirez MD [address] [place], [place] 0766595 Referring Internal Medicine 09/15/23 Jose Miguel Herbert MD [address] [place], [place] [phone] Home Care Provider Family Medicine 09/19/23 Gumaro Pé[place] [address] [place] [address] Nephrology 10/23/23 Email Campaign Manager Relationship Specialty Start Date End Date Jose Miguel Herbert MD [address] [place], [place] [id number] PCP - General Family Medicine 07/29/21 Dina Tolentino, COLT Specialty Child Welfare Manager Oncology 04/19/23 Jose Hugo DO [address] [place], [place] [phone] Physician Hematology/Oncology 04/19/23 Denise Wagoner LISW [address] [place] [address] Horticulture Instructor Hematology/Oncology 04/21/23 Chester Patel MD [address] Desk -[address] [place] [address] 2248395 Cardiology 05/23/23 Justa Tucker [address] Desk -[address] [place] [address] 05/23/23 Laverne Ramirez MD [address] [place] 0548095 Referring Internal Medicine 09/15/23 Jose Miguel Herbert MD [address] [place], [place] 613701 Home Care Provider Family Medicine 09/19/23 Gumaro Pé[place] [address] [place] [address] Nephrology 10/23/23 Email Campaign Manager Relationship Specialty Start Date End Date Jose Miguel Herbert MD [address] [place] [address] 688471 PCP - General Family Medicine 07/29/21 Dina Tolentino RN Specialty Child Welfare Manager Oncology 04/19/23 Jose Hugo DO [address] [place] [address] Physician Hematology/Oncology 04/19/23 Denise Wagoner LISW [address] [place] [address] Horticulture Instructor Hematology/Oncology 04/21/23 [place] [address] [place], [place] [address]d Ave Desk -[address] [place], [place] 3505[address] Cardiology 05/23/23 Justa Tucker [address] [place] [address] 05/23/23 Laverne Ramirez MD [address] [place] 0548095 Referring Internal Medicine 09/15/23 Jose Miguel Herbert MD [address] [place], [place] 938991 Home Care Provider Family Medicine 09/19/23 Gumaro [place] [address] [place] [address] Nephrology 10/23/23 Email Campaign Manager Relationship Specialty Start Date End Date Jose Miguel Herbert MD [address] [place] [address] PCP - General Family Medicine 07/29/21 Dina Tolentino, COLT Specialty Child Welfare Manager Oncology 04/19/23 Jose Hugo DO [address] [place] [address] Physician Hematology/Oncology 04/19/23 Denise Wagoner LISW [address] [place] [address] Horticulture Instructor Hematology/Oncology 04/21/23 Chester Patel MD [address] [place] 4079195 Cardiology 05/23/23 Justa Tucker [address] [facility]3[place] 5890795 05/23/23 Laverne Ramirez MD [address] [place] [address] Referring Internal Medicine 09/15/23 Jose Miguel Herbert MD [address] [place], [place] 162591 Home Care Provider Family Medicine 09/19/23 Gumaro [place] [address] [place] [address] Nephrology 10/23/23 Email Campaign Manager Relationship Specialty Start Date End Date Jose Miguel Herbert MD [address] [place], [place] 332241 PCP - General Family Medicine 07/29/21 Dina Tolentino RN Specialty Child Welfare Manager Oncology 04/19/23 Jose Hugo DO [address] [place], [place] 726211 Physician Hematology/Oncology 04/19/23 Denise Wagoner LISW [address] [place] [address] Horticulture Instructor Hematology/Oncology 04/21/23 Chester Patel MD [address] [place], [place] 8283195 Cardiology 05/23/23 Justa Tucker [address] [place] [place] [address] 05/23/23 Laverne Ramirez MD [address] [place] [address] Referring Internal Medicine 09/15/23 Jose Miguel Herbert MD [address] [place], [place] 514481 Home Care Provider Family Medicine 09/19/23 Gumaro [place] [address] [place] [address] Nephrology 10/23/23 Email Campaign Manager Relationship Specialty Start Date End Date Jose Miguel Herbert MD [address] [place], [place] 943581 PCP - General Family Medicine 07/29/21 Dina Tolentino, RN Specialty Child Welfare Manager Oncology 04/19/23 Jose Hugo DO [address] [place], [place] 373791 Physician Hematology/Oncology 04/19/23 Denise Wagoner LISW [address] [place] [address] Horticulture Instructor Hematology/Oncology 04/21/23 Chester Patel MD [address] [place] [address] Cardiology 05/23/23 Justa Tucker [address] [place] [place] [address] 05/23/23 Laverne Ramirez MD [address] [place] [address] Referring Internal Medicine 09/15/23 Jose Miguel Herbert MD [address] [place], [place] 26563691 Home Care Provider Family Medicine 09/19/23 Gumaro Pé[place] [address] [place] [address] Nephrology 10/23/23 Email Campaign Manager Relationship Specialty Start Date End Date Jose Miguel Herbert MD [address] [place], [place] 144841 PCP - General Family Medicine 07/29/21 Dina Tolentino, RN Specialty Child Welfare Manager Oncology 04/19/23 Jose Hugo DO [address] [facility] [place], [place] 843531 Physician Hematology/Oncology 04/19/23 Denise Wagoner LISW [address] [place] [address] Horticulture Instructor Hematology/Oncology 04/21/23 Chester Patel MD [address] [place] [address] Cardiology 05/23/23 Justa Tucker [address] [place] [place] [address] 05/23/23 Laverne Ramirez MD [address] [place], [place] [phone] Referring Internal Medicine 09/15/23 Jose Miguel Herbert MD [address] [place], [place] 03273691 Home Care Provider Family Medicine 09/19/23 Gumaro Pé[place] [address] [place], [place] 6193130 Nephrology 10/23/23 Email Campaign Manager Relationship Specialty Start Date End Date Jose Miguel Herbert MD [address] [place], [place] 995141 PCP - General Family Medicine 07/29/21 Dina Tolentino, RN Specialty Child Welfare Manager Oncology 04/19/23 Jose Hugo DO [address] [place], [place] [id number] Physician Hematology/Oncology 04/19/23 Denise Wagoner LISW [address] [place] [address] Horticulture Instructor Hematology/Oncology 04/21/23 Chester Patel MD [address] [place] [address] Cardiology 05/23/23 Justa Tucker [address] [place] [place] [address] 05/23/23 Laverne Ramirez MD [address] [place] [phone] Referring Internal Medicine 09/15/23 Jose Miguel Herbert MD [address] [place], [place] [id number] Home Care Provider Family Medicine 09/19/23 Gumaro Pé[place] [address] [place], [place] 7894030 Nephrology 10/23/23 Email Campaign Manager Relationship Specialty Start Date End Date Jose Miguel Herbert MD [address] [place], [place] [id number] PCP - General Family Medicine 07/29/21 Dina Tolentino, RN Specialty Child Welfare Manager Oncology 04/19/23 Jose Hugo DO [address] [facility] [place], [place] 108751 Physician Hematology/Oncology 04/19/23 Denise Wagoner LISW [address] [place] [address] Horticulture Instructor Hematology/Oncology 04/21/23 Chester Patel MD [address] [place] [address] Cardiology 05/23/23 Justa Tucker [address] [place] [place] [address] 05/23/23 Laverne Ramirez MD [address] [place] [address] Referring Internal Medicine 09/15/23 Jose Miguel Herbert MD [address] [place], [place] 695611 Home Care Provider Family Medicine 09/19/23 Gumaro [place] [address] [place] [address] Nephrology 10/23/23 Email Campaign Manager Relationship Specialty Start Date End Date Jose Miguel Herbert MD [address] [place], [place] 063561 PCP - General Family Medicine 07/29/21 Dina Tolentino RN Specialty Child Welfare Manager Oncology 04/19/23 Jose Hugo DO [address] [place], [place] [id number] Physician Hematology/Oncology 04/19/23 Denise Wagoner LISW [address] [place] [address] Horticulture Instructor Hematology/Oncology 04/21/23 Chester Patel MD [address] [place] [phone] Cardiology 05/23/23 Justa Tucker [address] [place] [place] [address] 05/23/23 Laverne Ramirez MD [address] [place] [address] Referring Internal Medicine 09/15/23 Jose Miguel Herbert MD [address] [place], [place] 666051 Home Care Provider Family Medicine 09/19/23 Gumaro Pé[place] [address] [place] [address] Nephrology 10/23/23 Email Campaign Manager Relationship Specialty Start Date End Date Jose Miguel Herbert MD [address] [place], [place] 108911 PCP - General Family Medicine 07/29/21 Dina Tolentino RN Specialty Child Welfare Manager Oncology 04/19/23 Jose Hugo DO [address] [place], [place] [id number] Physician Hematology/Oncology 04/19/23 Denise Wagoner LISW [address] [place] [address] Horticulture Instructor Hematology/Oncology 04/21/23 Chester Patel MD [address] [facility] [place] [phone] Cardiology 05/23/23 Justa Tucker [address] [place] [address] 05/23/23 Laverne Ramirez MD [address] [place] [address] Referring Internal Medicine 09/15/23 Jose Miguel Herbert MD [address] [place], [place] 874871 Home Care Provider Family Medicine 09/19/23 Gumaro Pé[place] [address] [place] [address] Nephrology 10/23/23 Email Campaign Manager Relationship Specialty Start Date End Date Jose Miguel Herbert MD [address] [place] [address] PCP - General Family Medicine 07/29/21 Dina Tolentino RN Specialty Child Welfare Manager Oncology 04/19/23 Jose Hugo DO [address] [place], [place] [phone] Physician Hematology/Oncology 04/19/23 Denise Wagoner LISW [address] [place] [address] Horticulture Instructor Hematology/Oncology 04/21/23 Chester Patel MD [address] [facility]34 [place] 4079195 Cardiology 05/23/23 Justa Tucker [address] [facility] [address] [place] [address] 05/23/23 Laverne Ramirez MD [address] [place], [place] 7772895 Referring Internal Medicine 09/15/23 Jose Miguel Herbert MD [facility] [place], [place] 635051 Home Care Provider Family Medicine 09/19/23 Gumaro Pé[place] [address] [place] [address] Nephrology 10/23/23 Jess Alcaraz APRN.PRODUCT INTRODUCTION MANAGER [address] [place], [place] [id number] Provider Enrollment Specialist Family Medicine 08/24/24 Sheree Fabian PA-C [address] [place], [place] [phone] Provider Enrollment Specialist Family [facility] 08/24/24 Email Campaign Manager Relationship Specialty Start Date End Date Jose Miguel Herbert MD [address] [place], [place] 288581 PCP - General Family Medicine 07/29/21 Dina Tolentino RN Specialty Child Welfare Manager Oncology 04/19/23 Jose Hugo DO [address] [place], [place] 565531 Physician Hematology/Oncology 04/19/23 Denise Wagoner LISW [address] [place] [address] Horticulture Instructor Hematology/Oncology 04/21/23 Chester Patel MD [address] [place] [id number] Cardiology 05/23/23 Justa Tucker [address] [place] [address] 05/23/23 Laverne Ramirez MD [address] [place] [address] Referring Internal Medicine 09/15/23 Jose Miguel Herbert MD [address] [place], [place] 703021 Home Care Provider Family Medicine 09/19/23 Gumaro [place] [address] [place] [address] Nephrology 10/23/23 Jess Alcaraz APRN.PRODUCT INTRODUCTION MANAGER [address] [place], [place] 977001 Provider Enrollment Specialist Family [facility] 08/24/24 Sheree Fabian PA-C [address] [place], [place] [id number] Provider Enrollment Specialist [facility] 08/24/24 Email Campaign Manager Relationship Specialty Start Date End Date Jose Miguel Herbert MD [address] [place], [place] [id number] PCP - General Family Medicine 07/29/21 Dina Tolentino RN Specialty Child Welfare Manager Oncology 04/19/23 Jose Hugo DO [address] [place], [place] [phone] Physician Hematology/Oncology 04/19/23 Denise Wagoner LISW [address] [place] [address] Horticulture Instructor Hematology/Oncology 04/21/23 Chester Patel MD [address] [facility] [address] [place] 4079195 Cardiology 05/23/23 Justa Tucker [address] [place] [address] 05/23/23 Laverne Ramirez MD [address] [place] [address] Referring Internal Medicine 09/15/23 Jose Miguel Herbert MD [address] [place], [place] 548941 Home Care Provider Family Medicine 09/19/23 Gumaro Pé[place] [address] [place] [address] Nephrology 10/23/23 Jess Alcaraz APRN.PRODUCT INTRODUCTION MANAGER [address] [place], [place] 931381 Provider Enrollment Specialist Family Medicine 08/24/24 Sheree Fabian PA-C [address] [place] [address] 195791 Provider Enrollment Specialist Family [facility] 08/24/24 Email Campaign Manager Relationship Specialty Start Date End Date Jose Miguel Herbert MD [address] [place] [address] [phone] PCP - General Family Medicine 07/29/21 Dina Tolentino, COLT Specialty Child Welfare Manager Oncology 04/19/23 Jose Hugo DO [address] [place], [place] [id number] Physician Hematology/Oncology 04/19/23 Denise Wagoner LISW [address] [place] [address] Horticulture Instructor Hematology/Oncology 04/21/23 Chester Patel MD [address] [place] [address] Cardiology 05/23/23 Jusat Tucker [address] [place] [address] 05/23/23 Laverne Ramirez MD [address] [place] [address] Referring Internal Medicine 09/15/23 Jose Miguel Herbert MD [address] [place], [place] 293071 Home Care Provider Family Medicine 09/19/23 Gumaro Pé[place] [address] [place] [address] Nephrology 10/23/23 Jess Alcaraz APRN.PRODUCT INTRODUCTION MANAGER [address] [place], [place] 635231 Provider Enrollment Specialist Family Medicine 08/24/24 Sheree Fabian PA-C [address] [place] [address] 896391 Provider Enrollment Specialist Family [facility] 08/24/24 Email Campaign Manager Relationship Specialty Start Date End Date Jose Miguel Herbert MD [address] [place] [address] PCP - General Family Medicine 07/29/21 Dina Tolentino, COLT Specialty Child Welfare Manager Oncology 04/19/23 Jose Hugo DO [address] [place], [place] [phone] Physician Hematology/Oncology 04/19/23 Denise Wagoner LISW [address] [place] [address] Horticulture Instructor Hematology/Oncology 04/21/23 Chester Patel MD [address] [place] [address] Cardiology 05/23/23 Justa Tucker [address] [place] [place] [address] 05/23/23 Laverne Ramirez MD [address] [place] [address] Referring Internal Medicine 09/15/23 Jose Miguel Herbert MD [address] [place], [place] [id number] Home Care Provider Family Medicine 09/19/23 Gumaro [place] [address] [place] [address] Nephrology 10/23/23 Jess Alcaraz APRN.PRODUCT INTRODUCTION MANAGER [address] [place], [place] [phone] Provider Enrollment Specialist Family [facility] 08/24/24 Sheree Fabian PA-C [address] [place], [place] [phone] Provider Enrollment Specialist [facility] 08/24/24 Email Campaign Manager Relationship Specialty Start Date End Date Jose Miguel Herbert MD [address] [place], [place] [phone] PCP - General Family Medicine 07/29/21 Dina Tolentino, COLT Specialty Child Welfare Manager Oncology 04/19/23 Jose Huog DO [address] [place], [place] [phone] Physician Hematology/Oncology 04/19/23 Denise Wagoner LISW [address] [place] [address] Horticulture Instructor Hematology/Oncology 04/21/23 Chester Patel MD [address] Desk [address] [place] [address] Cardiology 05/23/23 Justa Tucker [address] [place] [address] [place] [address] 05/23/23 Laverne Ramirez MD [address] [place] [address] Referring Internal Medicine 09/15/23 Jose Miguel Herbert MD [address] [place], [place] 038871 Home Care Provider Family Medicine 09/19/23 [place] [address] [place] [address] Nephrology 10/23/23 Jess Alcaraz APRN.PRODUCT INTRODUCTION MANAGER [address] [place], [place] [phone] Provider Enrollment Specialist Family Medicine 08/24/24 Sheree Fabian PA-C [address] [place], [place] 582401 Provider Enrollment Specialist Family [facility] 08/24/24 Email Campaign Manager Relationship Specialty Start Date End Date Jose Miguel Herbert MD [address] [place], [place] [phone] PCP - General Family Medicine 07/29/21 Dina Tolentino, COLT Specialty Child Welfare Manager Oncology 04/19/23 Jose Hugo DO [address] [place], [place] [phone] Physician Hematology/Oncology 04/19/23 Denise Wagoner LISW [address] [place] [address] Horticulture Instructor Hematology/Oncology 04/21/23 Chester Patel MD [address] [facility] [place] [place] [address] Cardiology 05/23/23 Justa Tucker [address] [facility] [place] [address] 05/23/23 Laverne Ramirez MD [address] [place] [address] Referring Internal Medicine 09/15/23 Jose Miguel Herbert MD [address] [place] [address] [phone] Home Care Provider Family Medicine 09/19/23 Gumaro Pérez [place] [address] [place], [place] [phone] Nephrology 10/23/23 Jess Alcaraz APRN.PRODUCT INTRODUCTION MANAGER [address] [place] [address] [phone] Provider Enrollment Specialist Family Medicine 08/24/24 Sheree Fabian PA-C [address] [place] [address] [phone] Provider Enrollment Specialist Family Medicine 08/24/24 Email Campaign Manager Relationship Specialty Start Date End Date Jose Miguel Herbert MD [address] [place] [address] [id number] PCP - General Family Medicine 07/29/21 Dina Tolentino, RN Specialty Child Welfare Manager Oncology 04/19/23 Jose Hugo DO [address] [place], [place] [phone] Physician Hematology/Oncology 04/19/23 Denise Wagoner LISW [address] [place] [address] Horticulture Instructor Hematology/Oncology 04/21/23 Chester Patel MD [address] [facility] [place] [place] [address] Cardiology 05/23/23 Darwin Tuckerverenahowardorlando [address] [place] [place] [address] 05/23/23 Laverne Ramirez MD [address] [place] [address] Referring Internal Medicine 09/15/23 Jose Miguel Herbert MD [address] [place], [place] 135631 Home Care Provider Family Medicine 09/19/23 Gumaro Pérez [place] [address] [place] [address] Nephrology 10/23/23 Jess Alcaraz APRN.PRODUCT INTRODUCTION MANAGER [facility] [place], [place] [phone] Provider Enrollment Specialist Family Medicine 08/24/24 Sheree Fabian PA-C [address] [place] [address] [phone] Provider Enrollment Specialist Family Medicine 08/24/24 Email Campaign Manager Relationship Specialty Start Date End Date Jose Miguel Herbert MD [address] [place], [place] [phone] PCP - General Family Medicine 07/29/21 Dina Tolentino, RN Specialty Child Welfare Manager Oncology 04/19/23 Jose Hugo DO [address] [place], [place] [phone] Physician Hematology/Oncology 04/19/23 Denise Wagoner LISW [address] [place] [address] Horticulture Instructor Hematology/Oncology 04/21/23 Chester Patel MD [address] [place], [place] [phone] Cardiology 05/23/23 Justa Tucker [address] [place] [address] [place] [address] 05/23/23 Laverne Ramirez MD [address] [place], [place] [phone] Referring Internal Medicine 09/15/23 Jose Miguel Herbert MD [facility] [place], [place] 673941 Home Care Provider Family Medicine 09/19/23 Gumaro Pé[place] [address] [place] [address] Nephrology 10/23/23 Jess Alcaraz APRN.CNP [address] [place], [place] [phone] Provider Enrollment Specialist Family Medicine 08/24/24 Sheree Fabian PA-C [address] [place], [place] 308601 Provider Enrollment Specialist Family Medicine 08/24/24 Email Campaign Manager Relationship Specialty Start Date End Date Jose Miguel Herbert MD [address] [place], [place] 011641 PCP - General Family Medicine 07/29/21 Doup, Dina, RN Specialty Child Welfare Manager Oncology 04/19/23 Jose Hugo DO [address] [place], [place] [phone] Physician Hematology/Oncology 04/19/23 Denise Wagoner LISW [address] [place] [address] Horticulture Instructor Hematology/Oncology 04/21/23 Chester Patel MD [address] [place] [place] [address] Cardiology 05/23/23 Justa Tucker [address] [place] [place] [address] 05/23/23 Laverne Ramirez MD [address] [place] [id number] Referring Internal Medicine 09/15/23 Jose Miguel Herbert MD [facility] [place], [place] [phone] Home Care Provider Family Medicine 09/19/23 Gumaro [place] [address] [place] [address] Nephrology 10/23/23 Jess Alcaraz APRN.CNP [address] [place], [place] 174931 Provider Enrollment Specialist Family Medicine 08/24/24 Sheree Fabian PA-C [address] [place], [place] 421811 Provider Enrollment Specialist Family Medicine 08/24/24 Email Campaign Manager Relationship Specialty Start Date End Date Jose Miguel Herbert MD [address] [place] [address] [id number] PCP - General Family Medicine 07/29/21 Dina Tolentino, RN Specialty Child Welfare Manager Oncology 04/19/23 Jose Hugo DO [address] [place], [place] 404601 Physician Hematology/Oncology 04/19/23 Denise Wagoner LISW [address] [place] [address] Horticulture Instructor Hematology/Oncology 04/21/23 Chester Patel MD [address] [place] [address] Cardiology 05/23/23 Justa Tucker [address] [address] 05/23/23 Laverne Ramirez MD [address] [place], [place] [phone] Referring Internal Medicine 09/15/23 Jose Miguel Herbert MD [address] [place], [place] [phone] Home Care Provider Family Medicine 09/19/23 Gumaro [place] [address] [place] [address] Nephrology 10/23/23 Jess Alcaraz APRN.PRODUCT INTRODUCTION MANAGER [address] [place], [place] [phone] Provider Enrollment Specialist Family Medicine 08/24/24 Sheree Fabian PA-C [address] [place], [place] [phone] [facility] Family [facility] 08/24/24 Team Status: Active Member Role Status Dates Dr. Jose Miguel Herbert MD Primary Care Provider Active Team Status: Inactive Member Role Status Dates Dr. Jose Miguel Herbert MD Primary Care Provider Active Start: October 08, 2024 End: October 08, 2024 PEGGY Hall Attending Provider Active Star t: October 08, 2024 End: October 08, 2024 PEGGY Hall Referring Provider Active Star t: October 08, 2024 End: October 08, 2024 Team Status: Active Member Role Status Dates Dr. Jose Miguel Herbert MD Primary Care Provider Active Start: October 08, 2024 Dr. Alvarado Brody MD Attending Provider Active S tart: October 08, 2024 Team Status: Inactive Member Role Status Dates Dr. Jose Miguel Herbert MD Primary Care Provider Active Start: November 07, 2024 End: November 07, 2024 Dr. Jose Miguel Herbert MD Referring Provider Active Start: November 07, 2024 End: November 07, 2024 Dr. Alvarado Brody MD Attending Provider Active S tart: November 07, 2024 End: November 07, 2024 Team Status: Active Member Role Status Dates Dr. Jose Miguel Herbert MD Primary Care Provider Active Start: January 10, 2025 Dr. Bonnie Barrera MD Attending Provider Active Start: January 10, 2025 Team Status: Active Member Role Status Dates Dr. Jose Miguel Herbert MD Primary Care Provider Active Start: January 13, 2025 Dr. Bonnie Barrera MD Attending Provider Active Start: January 13, 2025 Team Status: Inactive Member Role Status Dates Dr. Jose Miguel Herbert MD Primary Care Provider Active Start: January 14, 2025 End: January 14, 2025 Dr. Alvarado Brody MD Attending Provider Active S tart: January 14, 2025 End: January 14, 2025 Dr. Alvarado Brody MD Referring Provider Active S tart: January 14, 2025 End: January 14, 2025 Team Status: Active Member Role Status Dates Dr. Jose Miguel Herbert MD Primary Care Provider Active Start: January 14, 2025 Dr. Alvarado Brody MD Attending Provider Active S tart: January 14, 2025 Dr. Alvarado Brody MD Referring Provider Active S tart: January 14, 2025 Dr. Alvarado Brody MD Other Provider Active Start : January 14, 2025 Email Campaign Manager Relationship Specialty Start Date End Date Jose Miguel Herbert MD [address] [place] [address] PCP - General Family Medicine 07/29/21 Dina Tolentino RN Specialty Child Welfare Manager Oncology 04/19/23 Jose Hugo DO [address] [place] [address] Physician Hematology/Oncology 04/19/23 Denise Wagoner LISW [address] [place] [address] Horticulture Instructor Hematology/Oncology 04/21/23 Chester Patel MD [address] [place] [phone] Cardiology 05/23/23 Justa Tucker [address] [address] 05/23/23 Laverne Ramirez MD [address] [place] [address] Referring Internal Medicine 09/15/23 Jose Miguel Herbert MD [address] [place], [place] 477091 Home Care Provider Family Medicine 09/19/23 Gumaro [place] [address] [place] [address] Nephrology 10/23/23 Jess Alcaraz APRN.PRODUCT INTRODUCTION MANAGER [address] [place], [place] [phone] Provider Enrollment Specialist Family [facility] 08/24/24 Sheree Fabian PA-C [address] [place], [place] 836711 Provider Enrollment Specialist Family [facility] 08/24/24 Chester Patel MD [address] [place] [place] [address] Primary Staff Physician Cardiology 01/21/25 Email Campaign Manager Relationship Specialty Start Date End Date Jose Miguel Herbert MD [address] [place], [place] 888681 PCP - General Family Medicine 07/29/21 Dina Tolentino RN Specialty Child Welfare Manager Oncology 04/19/23 Jose Hugo DO [address] [place] [address] Physician Hematology/Oncology 04/19/23 Denise Wagoner LISW [address] [place] [address] Horticulture Instructor Hematology/Oncology 04/21/23 Chester Patel MD [address] [place], [place] [phone] Cardiology 05/23/23 Justa Tucker [address] [place] [address] [place] [address] 05/23/23 Laverne Ramirez MD [address] [place] [address] Referring Internal Medicine 09/15/23 Jose Miguel Herbert MD [address] [place] [address] Home Care Provider Family Medicine 09/19/23 Gum[place] [address] [place] [address] Nephrology 10/23/23 Jess Alcaraz APRN.PRODUCT INTRODUCTION MANAGER [address] [place], [place] [phone] Provider Enrollment Specialist Family Medicine 08/24/24 Sheree Fabian PA-C [address] [place], [place] [phone] Provider Enrollment Specialist Family Medicine 08/24/24 Chester Patel MD [address] [place] [place] [address] Primary Staff Physician Cardiology 01/21/25 Email Campaign Manager Relationship Specialty Start Date End Date Jose Miguel Herbert MD [address] [place], [place] [phone] PCP - General Family Medicine 07/29/21 Dina Tolentino, RN Specialty Child Welfare Manager Oncology 04/19/23 Jose Hugo DO [address] [place], [place] [phone] Physician Hematology/Oncology 04/19/23 Denise Wagoner LISW [address] [place] [address] Horticulture Instructor Hematology/Oncology 04/21/23 Chester Patel MD [address] [place], [place] [phone] Cardiology 05/23/23 Justa Tucker [address] [place] [address] [place] [address] 05/23/23 Laverne Ramirez MD [address] [place] [address] Referring Internal Medicine 09/15/23 Jose Miguel Herbert MD [address] [place], [place] 846891 Home Care Provider Family Medicine 09/19/23 Gumaro Pé[place] [address] [place] [address] Nephrology 10/23/23 Jess Alcaraz APRN.PRODUCT INTRODUCTION MANAGER [address] [place], [place] [phone] Provider Enrollment Specialist Family Medicine 08/24/24 Sheree Fabian PA-C [address] [place] [address] [phone] Provider Enrollment Specialist Family Medicine 08/24/24 Chester Patel MD [address] [facility] [address] [address] [place], [place] [phone] Primary Staff Physician Cardiology 01/21/25 Team Status: Inactive Member Role Status Dates Dr. Jose Miguel Herbert MD Primary Care Provider Active Start: January 10, 2025 End: January 10, 2025 Dr. Bonnie Barrera MD Attending Provider Active Start: January 10, 2025 End: January 10, 2025 Team Status: Inactive Member Role Status Dates Dr. Jose Miguel Herbert MD Primary Care Provider Active Start: January 28, 2025 End: January 28, 2025 Dr. Jose Miguel Herbert MD Referring Provider Active Start: January 28, 2025 End: January 28, 2025 PEGGY Hall Attending Provider Active Star t: January 28, 2025 End: January 28, 2025 Team Status: Inactive Member Role Status Dates Dr. Jose Miguel Herbert MD Primary Care Provider Active Start: February 13, 2025 End: February 13, 2025 Dr. Jose Miguel Herbert MD Referring Provider Active Start: February 13, 2025 End: February 13, 2025 PEGGY Hall Attending Provider Active Star t: February 13, 2025 End: February 13, 2025 Email Campaign Manager Relationship Specialty Start Date End Date Jose Miguel Herbert MD [address] [place], [place] 368651 PCP - General Family Medicine 07/29/21 Dina Tolentino RN Specialty Child Welfare Manager Oncology 04/19/23 Jose Hugo DO [address] [place], [place] [phone] Physician Hematology/Oncology 04/19/23 Denise Wagoner LISW [address] [place] [address] Horticulture Instructor Hematology/Oncology 04/21/23 Chester Patel MD [address] [phone] Cardiology 05/23/23 Justa Tucker [address] [address] 05/23/23 Laverne Ramirez MD [address] [place] [address] Referring Internal Medicine 09/15/23 Jose Miguel Herbert MD [address] [place], [place] 662311 Home Care Provider Family Medicine 09/19/23 Gumaro [place] [address] [place] [address] Nephrology 10/23/23 Sheree Fabian PA-C [address] [place], [place] 398721 Provider Enrollment Specialist Family Medicine 08/24/24 Chester Patel MD [address] [place] [place] [address] Primary Staff Physician Cardiology 01/21/25 Email Campaign Manager Relationship Specialty Start Date End Date Jose Miguel Herbert MD [address] [place], [place] 344921 PCP - General Family Medicine 07/29/21 Dina Tolentino RN Specialty Child Welfare Manager Oncology 04/19/23 Jose Hugo DO [address] [place] [address] Physician Hematology/Oncology 04/19/23 Denise Wagoner LISW [address] [place] [address] Horticulture Instructor Hematology/Oncology 04/21/23 Chester Patel MD [address] [place] [address] Cardiology 05/23/23 Justa Tucker [address] [place] [place] [address] 05/23/23 Laverne Ramirez MD [address] [place], [place] 5024395 Referring Internal Medicine 09/15/23 Jose Miguel Herbert MD [address] [place], [place] 863451 Home Care Provider Family Medicine 09/19/23 Gumaro [place] [address] [place] [address] Nephrology 10/23/23 Chester Patel MD [address] [place] [place] [address] Primary Staff Physician Cardiology 01/21/25 Jess Alcaraz APRN.PRODUCT INTRODUCTION MANAGER [address] [place], [place] [phone] Provider Enrollment Specialist [facility] 02/17/25 Sheree Fabian PA-C [address] [place], [place] [phone] [facility]25 Email Campaign Manager Relationship Specialty Start Date End Date Jose Miguel Herbert MD [address] [place], [place] [phone] PCP - General Family Medicine 07/29/21 Dina Tolentino, RN Specialty Child Welfare Manager Oncology 04/19/23 Jose Hugo DO [address] [place], [place] [phone] Physician Hematology/Oncology 04/19/23 Denise Wagoner LISW [address] [place] [address] Horticulture Instructor Hematology/Oncology 04/21/23 Chester Patel MD [address] [place] [place] [address] Cardiology 05/23/23 Justa Tucker [address] [place] [place] [address] 05/23/23 Laverne Ramirez MD [address] [place] [address] Referring Internal Medicine 09/15/23 Jose Miguel Herbert MD [address] [place], [place] 776841 Home Care Provider Family Medicine 09/19/23 Gumaro [place] [address] [place] [address] Nephrology 10/23/23 Chester Patel MD [address] [facility] [place] [address] Primary Staff Physician Cardiology 01/21/25 Jess Alcaraz APRN.PRODUCT INTRODUCTION MANAGER [address] [place] [address] [phone] Provider Enrollment Specialist Family Medicine 02/17/25 Sheree Fabian PA-C [address] [place] [address] [phone] Provider Enrollment Specialist Family [facility] 02/17/25 Email Campaign Manager Relationship Specialty Start Date End Date Jose Miguel Herbert MD [address] [place] [address] [phone] PCP - General Family Medicine 07/29/21 Dina Tolentino, COLT Specialty Child Welfare Manager Oncology 04/19/23 Jose Hugo DO [address] [place], [place] [phone] Physician Hematology/Oncology 04/19/23 Denise Wagoner, REESE [address] [place] [address] Horticulture Instructor Hematology/Oncology 04/21/23 Chester Patel MD [address] [place] [place] [address] Cardiology 05/23/23 Justa Tucker [address] [place] [place] [address] 05/23/23 Jose Miguel Herbert MD [facility] [place], [place] 647581 Home Care Provider Family Medicine 09/19/23 Gumaro Pé[place] [address] [place], [place] [phone] Nephrology 10/23/23 Chester Patel MD [address] [place], [place] [phone] Primary Staff Physician Cardiology 01/21/25 Jess Alcaraz APRN.CNP [address] [place] [address] [phone] Provider Enrollment Specialist Family Medicine 02/17/25 Sheree Fabian PA-C [address] [place] [address] Provider Enrollment Specialist Family Medicine 02/17/25 Email Campaign Manager Relationship Specialty Start Date End Date Jose Miguel Herbert MD [facility] [place], [place] [phone] PCP - General Family Medicine 07/29/21 Dina Tolentino RN Specialty Child Welfare Manager Oncology 04/19/23 Jose Hugo DO [address] [place], [place] 080471 Physician Hematology/Oncology 04/19/23 Denise Wagoner LISW [address] [place] [address] Horticulture Instructor Hematology/Oncology 04/21/23 Chester Patel MD [address] [place] [place] [address] Cardiology 05/23/23 Justa Tucker [address] [place] [place] [address] 05/23/23 Jose Miguel Herbert MD [address] [place], [place] [phone] Home Care Provider Family Medicine 09/19/23 Gumaro Pérez [place] [address] [place], [place] 1115330 Nephrology 10/23/23 Chester Patel MD [address] [place], [place] [id number] Primary Staff Physician Cardiology 01/21/25 Jess Alcaraz APRN.PRODUCT INTRODUCTION MANAGER [address] [place], [place] 430011 Provider Enrollment Specialist Family Medicine 02/17/25 Sheree Fabian PA-C [address] [place] [address] Provider Enrollment Specialist Family Medicine 02/17/25 Goals (unrecognized section and content) Goals may be documented in a n alternate sectionGoals may be documented in an alternate sectionGoals may be documented in an alternate section (unrecognized sect ion and content) No Status Records FoundNo Status Records FoundNo Status Records FoundNo Status Records Found INFORMATION SOURCE (unrecogn ized section and content) DATE CREATED AUTHOR 05/22/2023 [facility] DATE CREATED AUTHOR AUTHOR'S ORGANIZ ATION 12/13/2023 [facility] DATE CREATED AUTHOR AUTHOR'S ORGANIZ ATION 04/25/2025 [facility] DATE CREATED AUTHOR AUTHOR'S ORGANIZ ATION 04/28/2025 [facility] Inactive Administered Medications - up to 3 most recent administrations Administered Medications (un recognized section and content) Medication Order MAR Action Action Date Dose Rate Site acetaminophen 650 mg tab(s) (TYLENOL) 650 mg, ORAL, ONCE, 1 dose, On Mon10/31/23 at 1030, Give 30 minutes prior to infusion. No more than 4000 mg of acetaminophen should be given per day (FROM ALL SOURCES), If ordered PRN for pain, patient/guardian may elect to receive this medication for higher pain levels INSTEAD of the opioid, if preferred: N/A Given 10/31/2023 10:36 AM EST 650 mg bendamustine 107.8 mg in NaCl 0.9% 544.312 mL 107.8 mg (70 mg/m2 1.54 m2 Treatment Plan BSA from Recorded weight), INTRAVENOUS, Administer over 30 Minutes, ONCE, 1 dose, On Mon10/31/23 at 1030, exp 1330 10/31/23 (room temp) Hazardous Chemotherapy Drug: Use appropriate PPE. Antineoplastic Irritant. Refrigerate. New Bag/Syringe/Bottle 10/31/2023 10:59 AM EST 107.8 mg dexAMETHasone 10 mg in NaCl 0.9% 50 mL (DECADRON) 10 mg, INTRAVENOUS, ONCE, 1 dose, On Mon10/31/23 at 1030, Refrigerate. New Bag/Syringe/Bottle 10/31/2023 10:42 AM EST 10 mg diphenhydrAMINE 12.5 mg injection (BENADRYL) 12.5 mg, INTRAVENOUS, ONCE, 1 dose, On Mon10/31/23 at 1030, Give prior to infusion. Given 10/31/2023 10:36 AM EST 12.5 mg palonosetron 0.25 mg injection (ALOXI) 0.25 mg, INTRAVENOUS, ONCE, 1 dose, On Mon10/31/23 at 1030, Flush IV line with NS prior to and following administration. Given 10/31/2023 10:35 AM EST 0.25 mg riTUXimab-pvvr 577.5 mg in NaCl 0.9% 332.75 mL (RUXIENCE) 577.5 mg (375 mg/m2 1.54 m2 Treatment Plan BSA from Recorded weight), INTRAVENOUS, ONCE, 1 dose, On Mon10/31/23 at 1030, exp 2300 10/31/23 (room temp) -Infuse at rate of 100mg/hr. If no hypotension, increase rate every 30 minutes by 100mg/hr to a maximum rate of 400mg/hr. Refrigerate. New Bag/Syringe/Bottle 10/31/2023 11:47 AM EST 577.5 mg Inactive Administered Medications - up to 3 most recent administrations Medication Order MAR Action Action Date Dose Rate Site bendamustine 107.8 mg in NaCl 0.9% 544.312 mL 107.8 mg (70 mg/m2 1.54 m2 Treatment Plan BSA from Recorded weight), INTRAVENOUS, Administer over 30 Minutes, ONCE, 1 dose, On Mon11/01/23 at 1430, exp 1730 11/01/23 (room temp) Hazardous Chemotherapy Drug: Use appropriate PPE. Antineoplastic Irritant. Refrigerate. New Bag/Syringe/Bottle 11/01/2023 2:44 PM EST 107.8 mg dexAMETHasone 10 mg in NaCl 0.9% 50 mL (DECADRON) 10 mg, INTRAVENOUS, ONCE, 1 dose, On Mon11/01/23 at 1430, Refrigerate. New Bag/Syringe/Bottle 11/01/2023 2:23 PM EST 10 mg Inactive Administered Medications - up to 3 most recent administrations Medication Order MAR Action Action Date Dose Rate Site pegfilgrastim-jmdb 6 mg injection (FULPHILA) 6 mg, SUBCUTANEOUS, ONCE, 1 dose, On Mon11/02/23 at 1530, Refrigerate - Protect From Light - Do Not Shake - Allow prefilled syringe to reach room temperature for at least 30 minutes prior to injection. Given 11/02/2023 3:28 PM EST 6 mg Arm, Right Inactive Administered Medications - up to 3 most recent administrations Medication Order MAR Action Action Date Dose Rate Site acetaminophen 650 mg tab(s) (TYLENOL) 650 mg, ORAL, ONCE, 1 dose, On Mon11/28/23 at 1330, Give 30 minutes prior to infusion. No more than 4000 mg of acetaminophen should be given per day (FROM ALL SOURCES), If ordered PRN for pain, patient/guardian may elect to receive this medication for higher pain levels INSTEAD of the opioid, if preferred: N/A Given 11/28/2023 1:27 PM EDT 650 mg bendamustine 107.8 mg in NaCl 0.9% 544.312 mL 107.8 mg (70 mg/m2 1.54 m2 Treatment Plan BSA from Recorded weight), INTRAVENOUS, Administer over 30 Minutes, ONCE, 1 dose, On Mon11/28/23 at 1330, exp 1630 11/28/23 (room temp) Hazardous Chemotherapy Drug: Use appropriate PPE. Antineoplastic Irritant. Refrigerate. New Bag/Syringe/Bot tle 11/28/2023 1:48 PM EDT 107.8 mg dexAMETHasone 10 mg in NaCl 0.9% 50 mL (DECADRON) 10 mg, INTRAVENOUS, ONCE, 1 dose, On Mon11/28/23 at 1330, Refrigerate. New Bag/Syringe/Bot tle 11/28/2023 1:27 PM EDT 10 mg diphenhydrAMINE 12.5 mg injection (BENADRYL) 12.5 mg, INTRAVENOUS, ONCE, 1 dose, On Mon11/28/23 at 1330, Give prior to infusion. Given 11/28/2023 1:27 PM EDT 12.5 mg palonosetron 0.25 mg injection (ALOXI) 0.25 mg, INTRAVENOUS, ONCE, 1 dose, On Mon11/28/23 at 1330, Flush IV line with NS prior to and following administration. Given 11/28/2023 1:27 PM EDT 0.25 mg riTUXimab - hyaluronidase 1,400 mg injection (RITUXAN HYCELA) 1,400 mg, SUBCUTANEOUS, Administer over 5 Minutes, ONCE, 1 dose, On Mon11/28/23 at 1330, Approx Total Volume: 11.7 mL Inject subcutaneously in abdomen over 5 minutes. Observe for at least 15 minutes after administration. Given 11/28/2023 1:48 PM EDT 1,400 mg Abdominal Tissue Inactive Administered Medications - up to 3 most recent administrations Medication Order MAR Action Action Date Dose Rate Site pegfilgrastim-jmdb 6 mg injection (FULPHILA) 6 mg, SUBCUTANEOUS, ONCE, 1 dose, On Mariluz 11/30/23 at 1500, Refrigerate - Protect From Light - Do Not Shake - Allow prefilled syringe to reach room temperature for at least 30 minutes prior to injection. Given 11/30/2023 2:50 PM EDT 6 mg Arm, Left Inactive Administered Medications - up to 3 most recent administrations Medication Order MAR Action Action Date Dose Rate Site bendamustine 107.8 mg in NaCl 0.9% 544.312 mL 107.8 mg (70 mg/m2 1.54 m2 Treatment Plan BSA from Recorded weight), INTRAVENOUS, Administer over 30 Minutes, ONCE, 1 dose, On Mon11/29/23 at 1330, exp 1615 11/29/23 (room temp) Hazardous Chemotherapy Drug: Use appropriate PPE. Antineoplastic Irritant. Refrigerate. New Bag/Syringe/Bottle 11/29/2023 1:50 PM EDT 107.8 mg dexAMETHasone 10 mg in NaCl 0.9% 50 mL (DECADRON) 10 mg, INTRAVENOUS, ONCE, 1 dose, On Mon11/29/23 at 1330, Refrigerate. New Bag/Syringe/Bottle 11/29/2023 1:28 PM EDT 10 mg PRN Active and Recently Administ ered Medications (unrecognized section and content) Medication Order 12/09/2023 12/10/2023 12/11/2023 heparin 1,000 unit/mL injection (CANCELED) X (OR/PROCEDURE) PRN, Starting on Mon12/11/23 at 1324, Until Mon12/11/23 at 1346, Intraprocedure 1324 (Given - Provid er: Ankur Benavidez PA-C) lidocaine 1%-EPINEPHrine 1:100,000 injection (CANCELED) SUBCUTANEOUS, X (OR/PROCEDURE) PRN, Starting on Mon12/11/23 at 1316, Until Mon12/11/23 at 1346, Intraprocedure 1316 (Given - Provid er: Ankur Benavidez PA-C - Comment: right neck and chest) midazolam (PF) injection (VERSED) (CANCELED) INTRAVENOUS, X (OR/PROCEDURE) PRN, Starting on 12/11/23 at 1314, Until Mon12/11/23 at 1346, Intraprocedure 1314 (Given - Provid er: Madisyn Estrada RN) FOR RECORDS PERTAINING TO PATIENTS WHO ARE OR HAVE BEEN ENROLLED IN A CHEMICAL DEPENDENCY/SUBSTANCEABUSE PROGRAM, SOME INFORMATION MAY BE OMITTED. This clinical summary was aggregated from multiple sources. Caution should be exercised in using it in the provision of clinical care. This summary normalizes information from multiple sources, and as a consequence, information in this document may materially change the coding, format and clinical context of patient data. In addition, data may be omitted in some cases. CLINICAL DECISIONS SHOULD BE BASED ON THE PRIMARY CLINICAL RECORDS. [employer] provides no warranty or guarantee of the accuracy or completeness of information in this document.
--- NOTE | 2025-05-01 08:06 | PCM.HP.STD ---
HPI - General HPI Narrative EDGAR HENDERSON, is a 74 M who presents with ESRD, functioning left arm AVG and right IJ catheter no longer in use. [facility] Medical History Wears glasses Cancer Depression Bruising Ambulates with cane History of renal disease History of renal dialysis Low iron High cholesterol Loss of consciousness Hoarseness History of edema History of echocardiogram History of stress test Cardiology follow-up encounter History of hydrocele Amyloidosis (~2022) Lymphoma (~2022) Kidney disease Non-smoker Anemia Exertional dyspnea Acute kidney injury Guttate psoriasis BPH (benign prostatic hyperplasia) Home Medications ?Medication ?Instructions ?Recorded ?Last Taken ?Type acyclovir 200 mg capsule 200 mg PO TID 09/05/24 05/01/25 History atorvastatin 20 mg tablet 20 mg PO QDAY 09/05/24 Unknown History calcium acetate 667 mg tablet 667 mg PO TID 09/05/24 Unknown History finasteride 5 mg tablet 5 mg PO QDAY 09/05/24 05/01/25 History zanubrutinib 80 mg capsule 160 mg PO BID 09/05/24 Unknown History (Brukinsa) oxycodone 5 mg tablet 5 mg PO Q8H PRN pain 2 days #6 tabs 01/14/25 Unknown Rx midodrine 2.5 mg tablet 2.5 mg PO ONCE PRN low BP 01/28/25 Unknown History Allergy/AdvReac Type Severity Reaction Status Date / Time No Known Allergies Allergy Verified 02/13/25 10:20 Family History Father Heart disease Pacemaker Cancer hodgkins Sister Cancer non hodgkins Surgical History History of colonoscopy (~06/05/18) History of bilateral inguinal hernia repair (~2003) Social History Smoking Status: Never smoker ROS Constitutional Constitutional: Denies chills, fever(s), frequent falls, lethargy or weakness Eyes Eyes: Denies blind spots, change in vision or loss of vision ENT HEENT: Denies bleeding gums, hoarseness or sore throat Cardiovascular Cardiovascular: Denies abdominal pain, bluish discoloration of hand/feet, chest pain with activity, claudication, cold extremities, cyanosis, dyspnea on exertion, erythema on extremities, irregular heart rhythm, leg edema, leg ulcers, numbness in extremities or weakness in extremities Respiratory/Chest Respiratory/Chest: Denies cough, excessive phlegm production, shortness of breath at rest, shortness of breath with exertion or wheezing Gastrointestinal Gastrointestinal: Denies anorexia, change in stool character, constipation, diarrhea, melena or rectal bleeding Genitourinary Genitourinary: Denies dysuria or hematuria Musculoskeletal Musculoskeletal: Denies abnormal gait Integumentary Integumentary: Reports other Details: ; Denies erythema, non-healing lesions or wounds Neurologic Neurologic: Denies abnormal speech, focal weakness, headache(s), loss of vision, numbness, paresthesias or sensory deficit Hematologic/Lymphatic Hematologic/Lymphatic: Denies easy bleeding, easy bruising or lymphadenopathy Vital Signs Vital Signs Vital Signs: Weight Weight: 120 lb Body Mass Index (BMI) 18.2 Physical Exam Const alert, oriented x3, no apparent distress and healthy appearing General Appearance: cooperative; Negative for combative or lethargic Orientation / Consciousness: awake Exam Limitations: no limitations HEENT Head and Scalp: normocephalic and atraumatic Eyes EOMs intact bilaterally General Eye: normal appearance of both eyes Neck full ROM General: trachea midline Resp normal respiratory effort and no use of accessory muscles Effort and Inspection: Negative for labored, stridor or audible wheezes Cardio regular rate and regular rhythm Peripheral Pulses: brachial pulses present and radial pulses present Back/Spine Cervical Spine: cervical ROM normal Extremity full ROM, normal capillary refill and no clubbing, cyanosis or edema Skin no rashes or lesions noted and no wounds Neuro oriented x3, CN's II-XII intact bilaterally, no focal motor deficits and no sensory deficits noted Psych thought process normal, cooperative, affect normal, speech normal and activity/motor behavior normal Assessment & Plan Assessment/Plan (1) Vascular dialysis catheter in place: PLAN: -remove catheter
--- NOTE | 2025-05-01 13:56 | PCM.OPRPT ---
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 He previously had a right IJ catheter in use however he now has a successful left upper arm AV graft. He presents now for catheter removal. Description of procedure: Upon obtaining informed consent and verification correct patient procedure and site patient was taken to the [facility] where he was positioned prepped and draped in usual sterile fashion. Timeouts performed consultation administered Versed and fentanyl. Skin overlying the tunneled dialysis catheter and its tract were anesthetized with 1% lidocaine. Blunt dissection from the catheter entry point into the skin was utilized to mobilize the catheter up to the cuff. Given the distance to the cuff we were unable to fully mobilize the hand separate the cuff from the surrounding tissue so a counterincision over the cuff was made with an 11 blade and blunt dissection used to dissect down to the catheter. Soft tissue there was anchoring the cuff was divided with sharp dissection and the catheter withdrawn followed by 5 minutes of manual pressure at the vessel entry site until hemostasis was observed. Surgicel topical hemostatic was placed within the counterincision and it was then closed with 4-0 Monocryl followed by Dermabond. Dry sterile dressing was applied the patient taken the cover area plan discharge to home. Surgical Findings: See above Complications Complications: No
== END 2025-05-01 10:00 | disposition home or self-care (01) ==
PROVIDERS: PCP Family Medicine; Referring Provider Surgery Trauma Surgery; Visit Provider Surgery Trauma Surgery
DX: N18.6 End stage renal disease (principal); Z99.2 Dependence on renal dialysis; F32.A Depression, unspecified; E78.00 Pure hypercholesterolemia, unspecified; Z85.72 Personal history of non-Hodgkin lymphomas; Z79.899 Other long term (current) drug therapy
CPT/HCPCS: 36589; 99152; 99153

== ENCOUNTER → 2025-08-07 | Outpatient (CLI) | payer MEDICARE, OTHER, SELFPAY ==
--- NOTE | 2025-08-07 13:39 | AVDS_ITS ---
Reason For Study Reason For Study: Recent Infiltration, Increased pulsatility Left Velocities Brachialbasilic AVF Inflow, 137.7/58.2 cm/s Inflow, 1329 ml/min Prox Anast, 305.3/164.2 cm/s Prox Anast, 704.4 ml/min Prox Graft, 121.5/61.8 cm/s Prox Graft, 1008 ml/min Mid Graft, 163.0/94.1 cm/s Mid Graft, 1345 ml/min Dist Graft, 100.8/64.5 cm/s Dist Graft, 935.3 ml/min Dist Anast, 498.0/286.4 cm/s Dist Anast, 1300 ml/min Outflow, 123.5/56.0 cm/s Outflow, 1319 ml/min. Procedure Exam performed in department. VL/AV Fistula/Dialysis Graft Scan Interpretation Summary Patent left upper extremity arteriovenous graft with adequate flow volumes thro ughout. Stenosis at distal anastomosis. Ordering Physician: Shannen Park Referring Physician: Jose Miguel Awan MD Performed By: Marta Coffey RVT
--- OUTSIDE RECORDS SUMMARY | 2025-08-07 18:58 | XMS RPT_ITS | CCD ---
Author Organization [facility] CliniSyaz Care Team Providers Care Docketing Specialist Name Role Phone Jose Miguel Herbert MD Primary Care Provider Dr. Jose Miguel Herbert Primary Care Provider Dr. Abundio Zepeda Attending Provider Dr. Jonathan Estrada Emergency Provider Dr. Jonathan Fernando Admit Provider Dr. Jonathan Fernando Attending Provider Dr. Jonathan Fernando Other Provider Jose Miguel Herbert MD Primary Care Provider Dina Tolentino RN Unavailable Unavailable Bethel POLLOCK Jose A Unavailable Denise Houston Unavailable Unavailabl e Dr. Jonathan Fernando Referring Provider Dr. Jose Miguel Herbert Referring Provider Dr. Jose Miguel Herbert Other Provider Dr. Demetri Do Attending Provider Doheather RN, Dina Unavailable Unavailable MASCI, JOSE A Referring Unavailable JOSE MIGUEL HERBERT Primary Care Unavailable Chester Patel MD Unavailable Desari, Jayprakash Unavailable Unavailable Desari, Jayprakash Unavailable Caitlin, Jayaprakash Unavailable Unavailable Ashley JACKSON, Laverne Unavailable Jose Miguel Herbert MD Unavailable Elisa DO, Gumaro Unavailable EMIL MIKE Attending Unavailable EMIL MIKE Admitting Unavailable JOSE MIGUEL HERBERT Primary Care Unavailable EMIL MIKE Referring Unavailable JOSE MIGUEL HERBERT Primary Care Unavailable ANKUR BENAVIDEZ Attending Unavailable ANKUR BENAVIDEZ Admitting Unavailable Emperatriz JACKSON, Jose Miguel Copeland Primary Care Provider Jose Miguel Herbert MD Primary Care Provider Jose Miguel Herbert MD Unavailable Kieran HOISTING MACHINE OPERATOR.BOOSTER ASSEMBLER, Jess Unavailable Rui LAMA, Sheree Unavailable Emperatriz JACKSON, Dr. Gillespie Primary Care Provider Shannen Domingo Attending Provider [phone] Shannen Domingo Referring Provider [phone] Ronn JACKSON, Dr. Childers Attending Provider [phone] Emperatriz JACKSON, Dr. Gillespie Referring Provider Holly JACKSON, Dr. Nicole Attending Provider Dr. Alvarado Brody MD Referring Provider [phone] Dr. Alvarado Brody MD Other Provider [phone] Eric Kwan MD, Chester Unavailable Emperatriz JACKSON, Dr. Gillespie Primary Care Provider Dr. Alvarado Brody MD Attending Provider [phone] Shannen Domingo Attending Provider [phone] Kieran HOISTING MACHINE OPERATOR.BOOSTER ASSEMBLER, Jess Unavailable Rui LAMA, Sheree Unavailable Dr. Jose Miguel Herbert MD Primary Care Provider Dr. Alvarado Brody MD Attending Provider [phone] Dr. Jose Miguel Herbert MD Referring Provider Emperatriz JACKSON, Dr. Gillespie Primary Care Provider Dr. Alvarado Brody MD Attending Provider [phone] Dr. Alvarado Brody MD Referring Provider [phone] Dr. Alvarado Brody MD Other Provider Dennis, Alvarado Referring Unavailable Ronn, Alvarado Attending Unavailable Emperatriz, Jose Miguel Primary Care Unavailable Makey, Krissanand Attending Unavailable Emperatriz, Jose Miguel Primary Care Unavailable Dennis, Alvarado Attending Unavailable Ronn, Alvarado Referring Unavailable Emperatriz, Jose Miguel Primary Care Unavailable Emperatriz, Jose Miguel Primary Care Unavailable Park, Shannen Referring Unavailable Park, Shannen Attending Unavailable Makey, Krissanand Attending Unavailable Emperatriz, Jose Miguel Primary Care Unavailable Emperatriz, Jose Miguel Referring Unavailable Park, Shannen Attending Unavailable Emperatriz, Jose Miguel Primary Care Unavailable Dennis, Alvarado Attending Unavailable Dennis, Alvarado Consulting Unavailable Ronn, Alvarado Referring Unavailable Emperatriz, Jose Miguel Primary Care Unavailable Dennis, Alvarado Attending Unavailable Ronn, Alvarado Consulting Unavailable Ronn, Alvarado Referring Unavailable Emperatriz, Jose Miguel Primary Care Unavailable Emperatriz, Jose Miguel Referring Unavailable Emperatriz, Jose Miguel Primary Care Unavailable Park, Shannen Attending Unavailable Emperatriz, Jose Miguel Referring Unavailable Emperatriz, Jose Miguel Primary Care Unavailable Park, Shannen Attending Unavailable Emperatriz, Jose Miguel Referring Unavailable Park, Shannen Attending Unavailable Emperatriz, Jose Miguel Primary Care Unavailable Emperatriz, Jose Miguel Primary Care Unavailable Park, Shannen Attending Unavailable Emperatriz, Jose Miguel Referring Unavailable Emperatriz, Jose Miguel Referring Unavailable Dennis, Alvarado Attending Unavailable Emperatriz, Jose Miguel Primary Care Unavailable Dennis, Alvarado Attending Unavailable Emperatriz, Jose Miguel Primary Care Unavailable EMPERATRIZ, JOSE MIGUEL A Primary Care Unavailable MASCI, JOSE A Referring Unavailable MASCI, JOSE A Attending Unavailable EMPERATRIZ, JOSE MIGUEL A Primary Care Unavailable MASCI, JOSE A Referring Unavailable EMPERATRIZ, JOSE MIGUEL A Primary Care Unavailable MASCI, JOSE A Attending Unavailable EMPERATRIZ, JOSE MIGUEL A Primary Care Unavailable SHEREE FABIAN Referring Unavailable EMPERATRIZ, JOSE MIGUEL A Primary Care Unavailable EMPERATRIZ, JOSE MIGUEL A Primary Care Unavailable MASCI, JOSE A Referring Unavailable EMPERATRIZ, JOSE MIGUEL A Primary Care Unavailable MASCI, JOSE A Referring Unavailable YESSICA HANSEN Attending Unavailable EMPERATRIZ, JOSE MIGUEL A Primary Care Unavailable MASCI, JOSE A Referring Unavailable EMPERATRIZ, JOSE MIGUEL A Primary Care Unavailable EMPERATRIZ, JOSE MIGUEL A Primary Care Unavailable EMPERATRIZ, JOSE MIGUEL A Primary Care Unavailable EMPERATRIZ, JOSE MIGUEL A Referring Unavailable EMPERATRIZ, JOSE MIGUEL A Primary Care Unavailable EMPERATRIZ, JOSE MIGUEL A Attending Unavailable EMPERATRIZ, JOSE MIGUEL A Primary Care Unavailable JOSE HUGO Referring Unavailable JOSE MIGUEL HERBERT A Primary Care Unavailable SHEREE FABIAN Attending Unavailable EMPERATRIZ, JOSE MIGUEL A Primary Care Unavailable EMPERATRIZ, JOSE MIGUEL A Primary Care Unavailable EMPERATRIZ, JOSE MIGUEL A Primary Care Unavailable MASCIJOSE A Referring Unavailable JOSE HUGO Attending Unavailable EMPERATRIZ, JOSE MIGUEL A Primary Care Unavailable JOSE HUGO Attending Unavailable JOSE MIGUEL HERBERT A Primary Care Unavailable EMPERATRIZ, JOSE MIGUEL A Primary Care Unavailable EMPERATRIZ, JOSE MIGUEL A Primary Care Unavailable JONATHAN HERBERTREY A Primary Care Unavailable CHESTER PATEL Attending Unavailharis e JOSE MIGUEL HERBERT Primary Care Unavailable CHESTER PATEL Referring Unavailabl e JOSE MIGUEL HERBERT Primary Care Unavailable REYESCHESTER DICKSON Referring Unavailabl e REYES CHESTER KWAN Attending Unavailabl e Medications Current Medications Medication Drug Class(es) Dates [...] Comment on above: Take 1 capsule by [facility] once daily. atorvastatin 20 mg oral tablet [...] above: Take 1 tablet by cam th once daily. midodrine hydrochloride 2.5 mg oral tablet (20 sources) alpha-Adrenergic Agonist Start: 01-28-2025 take 1 tablet by mouth once as needed Midodrine 2.5 mg tablet Active 2.5 mg PO ONCE as needed for low BP January 28, 2025 12:00am Start: 01-21-2025 End: 04-21-2025 midodrine (PROAMATINE) 2.5 m g tablet Indications: Cardiac amyloidosis (HCC) , Chronic diastolic congestive heart failure (HCC) Take 1 tablet by mouth as needed. Take if SBP 30 tablet 3 01/21/2025 Active Start: 10-09-2023 End: 10-10-2024 take 1 tablet by mouth three times daily midodrine (PROAMITINE) 5 mg tablet Take 1 tablet by mouth three times a day. 90 tablet 3 11/16/2023 10/10/2024 Discontinued (Discontinued by Patient) Comment on above: Take 1 tablet by cam three times a day. oxyCODONE hydrochloride 5 mg oral tablet (5 sources) Opioid Agonist Start: take 1 tablet by mouth every eight hours as needed for pain Oxycodone 5 mg tablet Active 5 mg PO Q8H as needed for pain 6 2 0 January 14, 2025 End stage renal failure on dialysis End stage renal disease Dependence on renal dialysis perflutren lipid microspheres 1.3 mL in NaCl [...] September 05, 2024 1:00am Start: 04-18-2024 End: 08-27-2025 take 2 capsules by mouth twice daily zanubrutinib (BRUKINSA) 80 mg capsule Indications: 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, Light chain (AL) amyloidosis (HCC) Take 2 capsules (160 mg) by mouth two times a day with a glass of water 120 capsule 5 05/14/2025 Active Completed/Discontinued Medications Medication Drug Class(es) Dates [...] on above: Take 2 tablets by mo uth once daily. Take 1 tablet by cam th once daily. Take 1 tablet by cam th every Monday, Monday, and Monday. cephalexin 500 mg oral capsule (7 sources) Cephalosporin Antibacterial Start: 12-15-19 End: 09-05-20 take 1 capsule by mouth every twelve hours Cephalexin 500 mg capsule Discontinued 500 mg PO EVERY 12 HOURS 14 December 15, 2023 12:00am September 05, 2024 [...] heart failure with preserved ejection fraction (HFpEF) ([facility]) Take 1 tablet by mouth once daily. 90 tablet 3 05/02/2023 06/02/2023 Discontinued (Course of therapy completed) Comment on above: Take 1 tablet by cam once daily. 11.7 ml hyaluronidase, human recombinant 2000 unt/ml / riTUXimab 120 mg/ml injection (4 sources) Endoglycosidase, NC85-ietdnaph Cytolytic Antibody Start: 04-23-2024 End: 04-23-2024 riTUXimab [...] Comment on above: Take 1 tablet by [facility] every 8 hours as needed (For chemotherapy [...] Translations: [Adjustment disorder with depressed mood] Onset: 11-29-2023 Chronic Chronic kidney disease (20 sources) [...] 1 01-18-2022 Chronic Immunity disorders (20 sources) [place] light chain disease; Translations: [Other specified disorders [...] macroglobulinemia] Onset: 3 04-06-2023 Chronic Non-Hodgkin`s lymphoma (6 sources) History of malignant lymphoma; Translations: [Personal history of non-Hodgkin lymphomas] 12-18-2023 Episodic Other bone disease and musculoskeletal deformities (1 source) Metabolic bone disease; Translations: [Other specified disorders of bone, unspecified site] 11-24-2023 Episodic Other circulatory disease (7 sources) Transient hypotension; Translations: [Hypotension, unspecified] 12-15-2023 Episodic Other circulatory disease (1 source) Low blood pressure; Translations: [Other hypotension] 01-05-2024 Episodic Other diseases of kidney and ureters (20 sources) Hyperparathyroidism due to renal insufficiency; Translations: [Secondary hyperparathyroidism of renal origin] Onset: 3 08-30-2023 Chronic Other diseases of kidney and ureters (1 source) Secondary hyperparathyroidism of renal origin; Translations: [Secondary hyperparathyroidism, renal (HCC)] Onset: Chronic Other hematologic conditions (1 source) Macrocytosis; [...] 6 01-18-2022 Chronic Other lower respiratory disease (10 sources) Dyspnea on exertion; Translations: [Other forms [...] 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)] Onset: Chronic Other nutritional; endocrine; and metabolic disorders (2 sources) Organ-limited amyloidosis; Translations: [Cardiac amyloidosis (HCC)] Onset: 4 Chronic Other nutritional; endocrine; and metabolic disorders (6 sources) H/O: metabolic disorder; Translations: [Personal history [...] Translations: [High creatinine] 03-26-2023 Urinary tract infections (6 sources) Acute urinary tract infection; Translations: [Urinary [...] (20 sources) Patient encounter status; Translations: [Other 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 therapy] Onset: 04-13-2018 Episodic Other [...] Test Name Value Interpretation Reference Range Facility CNOVon 07-29-2025 CNOV Normal [facility] CBC W Auto Differential pane l (Bld)on 07-08-2025 Basophils (Bld) [#/Vol] 0.04 10*3/uL Normal <0.11 [facility] Comment on above: Order Comment: Speci men Type: BLOOD SPECIMENOrdering Facility: [facility] Address: [address] [place] [address] Performed By: #### 5 7021-8 ####[facility] [id number] [place] [address] [place] Basophils/100 WBC (Bld) 1.0 % Normal C [facility] Comment on above: Order Comment: Speci men Type: BLOOD SPECIMENOrdering Facility: [facility] Address: [address] [place] [address] Performed By: #### 5 7021-8 ####[facility] [id number] [place] [address] [place] Differential cell count method Nom (Bld) Auto Normal [facility] Comment on above: Order Comment: Speci men Type: BLOOD SPECIMENOrdering Facility: [facility] Address: [address] [place] [address] Performed By: #### 5 7021-8 ####[facility] HOSPITALLIA [id number] [place] [address] [place] Eosinophils (Bld) [#/Vol] 0.11 10*3/uL Normal <0.46 [facility] Comment on above: Order Comment: Speci men Type: BLOOD SPECIMENOrdering Facility: [facility] Address: [address] [place] [address] Performed By: #### 5 7021-8 ####[facility] MANJULAWFRANCISCOLIA [id number] [place] [address] [place] Eosinophils/100 WBC (Bld) 2.8 % Normal [facility] Comment on above: Order Comment: Speci men Type: BLOOD SPECIMENOrdering Facility: [facility] Address: [address] [place] [address] Performed By: #### 5 7021-8 ####[facility] CHILDRENFRANCISCOLIA [id number] [place] [address] [place] Erythrocyte distribution width (RBC) [Ratio] 14.9 % Normal 11.5-15.0 [facility] Comment on above: Order Comment: Speci men Type: BLOOD SPECIMENOrdering Facility: [facility] Address: [address] [place] [address] Performed By: #### 5 7021-8 ####[facility] [id number] [place] [address] [place] Hematocrit (Bld) [Volume fraction] 35.4 % Low 39.0-51.0 [facility] Comment on above: Order Comment: Speci men Type: BLOOD SPECIMENOrdering Facility: [facility] Address: [address] [place] [address] Performed By: #### 5 7021-8 ####[facility] CHILDRENDAISYA [id number] [place] [address] [place] Hemoglobin (Bld) [Mass/Vol] 12.0 g/dL Low 13.0-17.0 [facility] Comment on above: Order Comment: Speci men Type: BLOOD SPECIMENOrdering Facility: [facility] Address: [address] [place] [address] Performed By: #### 5 7021-8 ####[facility]ILDRENNCL[facility] [id number] [place] [address] [place] Immature granulocytes (Bld) [#/Vol] 10*3/uL Normal <0.10 [facility] Comment on above: Order Comment: Speci men Type: BLOOD SPECIMENOrdering Facility: [facility] Address: [address] [place] [address] Performed By: #### 5 7021-8 ####[facility] [id number] [place] [address] [place] Immature granulocytes/100 WBC (Bld) 0.3 % Normal [facility] Comment on above: Order Comment: Speci men Type: BLOOD SPECIMENOrdering Facility: [facility] Address: [address] [place] [address] Performed By: #### 5 7021-8 ####[facility] [id number] [place] [address] [place] Lymphocytes (Bld) [#/Vol] 0.45 10*3/uL Low 1.00-4.00 [facility] Comment on above: Order Comment: Speci men Type: BLOOD SPECIMENOrdering Facility: [facility] Address: [address] [place] [address] Performed By: #### 5 7021-8 ####[facility] [id number] [place] [address] [place] Lymphocytes/100 WBC (Bld) 11.5 % Normal [facility] Comment on above: Order Comment: Speci men Type: BLOOD SPECIMENOrdering Facility: [facility] Address: [address] [place] [address] Performed By: #### 5 7021-8 ####[facility] [id number] [place] [address] [place] MCH (RBC) [Entitic mass] 34.6 pg High 26.0-34.0 [facility] Comment on above: Order Comment: Speci men Type: BLOOD SPECIMENOrdering Facility: [facility] Address: [address] [place] [address] Performed By: #### 5 7021-8 ####[facility] MANJULADENVERSARAHI [id number] [place] [address] [place] MCHC (RBC) [Mass/Vol] 33.9 g/dL Normal 30.5-36.0 [facility] Comment on above: Order Comment: Speci men Type: BLOOD SPECIMENOrdering Facility: [facility] Address: [address] [place] [address] Performed By: #### 5 7021-8 ####[facility]DRENFRANCISCOCENTR[facility] [id number] [place] [address] [place] MCV (RBC) [Entitic vol] 102.0 fL High 80.0-100.0 C [facility] Comment on above: Order Comment: Speci men Type: BLOOD SPECIMENOrdering Facility: [facility] Address: [address] [place] [address] Performed By: #### 5 7021-8 ####[facility] [id number] [place] [address] [place] Monocytes (Bld) [#/Vol] 0.78 10*3/uL Normal <0.87 [facility] Comment on above: Order Comment: Speci men Type: BLOOD SPECIMENOrdering Facility: [facility] Address: [address] [place] [address] Performed By: #### 5 7021-8 ####[facility] [id number] [place] [address] [place] Monocytes/100 WBC (Bld) 20.0 % Normal C [facility] Comment on above: Order Comment: Speci men Type: BLOOD SPECIMENOrdering Facility: [facility] Address: [address] [place] [address] Performed By: #### 5 7021-8 ####[facility] MILLTOWNCLIA [id number] [place] [address] [place] Neutrophils (Bld) [#/Vol] 2.51 10*3/uL Normal 1.45-7.50 [facility] Comment on above: Order Comment: Speci men Type: BLOOD SPECIMENOrdering Facility: [facility] Address: [address] [place] [address] Performed By: #### 5 7021-8 ####[facility] HOSPITALLIA [id number] [place] [address] [place] Neutrophils/100 WBC (Bld) 64.4 % Normal [facility] Comment on above: Order Comment: Speci men Type: BLOOD SPECIMENOrdering Facility: [facility] Address: [address] [place] [address] Performed By: #### 5 7021-8 ####[facility] [id number] [place] [address] [place] Nucleated RBC (Bld) [#/Vol] 10*3/uL Normal <0.01 [facility] Comment on above: Order Comment: Speci men Type: BLOOD SPECIMENOrdering Facility: [facility] Address: [address] [place] [address] Performed By: #### 5 7021-8 ####[facility] HOSPITALLIA [id number] [place] [address] [place] Nucleated RBC/100 WBC (Bld) [Ratio] 0.0 /100 WBC Normal [facility] Comment on above: Order Comment: Speci men Type: BLOOD SPECIMENOrdering Facility: [facility] Address: [address] [place] [address] Performed By: #### 5 7021-8 ####[facility]ILDRENNCL[facility] [id number] [place] [address] [place] Platelet mean volume (Bld) [Entitic vol] 10.1 fL Normal 9.0-12.7 [facility] Comment on above: Order Comment: Speci men Type: BLOOD SPECIMENOrdering Facility: [facility] Address: [address] [place] [address] Performed By: #### 5 7021-8 ####[facility]ITALWNCLIA [id number] [place] [address] [place] Platelets (Bld) [#/Vol] 148 10*3/uL Low 150-400 [facility] Comment on above: Order Comment: Speci men Type: BLOOD SPECIMENOrdering Facility: [facility] Address: [address] [place] [address] Result Comment: No c lot detected. Performed By: #### 5 7021-8 ####[facility] CHILDRENNCDinorah [id number] [place] [address] [place] RBC (Bld) [#/Vol] 3.47 10*6/uL Low 4.20-6.00 [facility] Comment on above: Order Comment: Speci men Type: BLOOD SPECIMENOrdering Facility: [facility] Address: [address] [place] [address] Performed By: #### 5 7021-8 ####[facility]ILDRENNCA [id number] [place] [address] [place] WBC (Bld) [#/Vol] 3.90 10*3/uL Normal 3.70-11.00 [facility] Comment on above: Order Comment: Speci men Type: BLOOD SPECIMENOrdering Facility: [facility] Address: [address] [place] [address] Performed By: #### 5 7021-8 ####[facility] NASSAUTOWNCLIA [id number] [place] [address] [place] CBC W Auto Differential pane l (Bld)on 06-10-2025 Basophils (Bld) [#/Vol] 0.07 10*3/uL Normal <0.11 [facility] Comment on above: Order Comment: Speci men Type: BLOOD SPECIMENOrdering Facility: [facility] Address: [address] [place] [address] Performed By: #### 5 7021-8 ####[facility] MILLWIALIA [id number] [place] [address] [place] Basophils/100 WBC (Bld) 1.9 % Normal [facility] Comment on above: Order Comment: Speci men Type: BLOOD SPECIMENOrdering Facility: [facility] Address: [address] [place] [address] Performed By: #### 5 7021-8 ####[facility] [id number] [place] [address] [place] Differential cell count method Nom (Bld) Auto Normal [facility] Comment on above: Order Comment: Speci men Type: BLOOD SPECIMENOrdering Facility: [facility] Address: [address] [place] [address] Performed By: #### 5 7021-8 ####[facility] [id number] [place] [address] [place] Eosinophils (Bld) [#/Vol] 0.14 10*3/uL Normal <0.46 [facility] Comment on above: Order Comment: Speci men Type: BLOOD SPECIMENOrdering Facility: [facility] Address: [address] [place] [address] Performed By: #### 5 7021-8 ####[facility] [id number] [place] [address] [place] Eosinophils/100 WBC (Bld) 3.9 % Normal [facility] Comment on above: Order Comment: Speci men Type: BLOOD SPECIMENOrdering Facility: [facility] Address: [address] [place] [address] Performed By: #### 5 7021-8 ####[facility] MANJULADENVERNCLIA [id number] [place] [address] [place] Erythrocyte distribution width (RBC) [Ratio] 14.7 % Normal 11.5-15.0 [facility] Comment on above: Order Comment: Speci men Type: BLOOD SPECIMENOrdering Facility: [facility] Address: [address] [place] [address] Performed By: #### 5 7021-8 ####[facility] CHILDRENNCA [id number] [place] [address] [place] Hematocrit (Bld) [Volume fraction] 34.2 % Low 39.0-51.0 [facility] Comment on above: Order Comment: Speci men Type: BLOOD SPECIMENOrdering Facility: [facility] Address: [address] [place] [address] Performed By: #### 5 7021-8 ####[facility] [id number] [place] [address] [place] Hemoglobin (Bld) [Mass/Vol] 11.4 g/dL Low 13.0-17.0 [facility] Comment on above: Order Comment: Speci men Type: BLOOD SPECIMENOrdering Facility: [facility] Address: [address] [place] [address] Performed By: #### 5 7021-8 ####[facility] HOS[facility]ITALLIA [id number] [place] [address] [place] Immature granulocytes (Bld) [#/Vol] 10*3/uL Normal <0.10 [facility] Comment on above: Order Comment: Speci men Type: BLOOD SPECIMENOrdering Facility: [facility] Address: [address] [place] [address] Performed By: #### 5 7021-8 ####[facility]ITALL[facility] [id number] [place] [address] [place] Immature granulocytes/100 WBC (Bld) 0.3 % Normal [facility] Comment on above: Order Comment: Speci men Type: BLOOD SPECIMENOrdering Facility: [facility] Address: [address] [place] [address] Performed By: #### 5 7021-8 ####[facility] [id number] [place] [address] [place] Lymphocytes (Bld) [#/Vol] 0.53 10*3/uL Low 1.00-4.00 [facility] Comment on above: Order Comment: Speci men Type: BLOOD SPECIMENOrdering Facility: [facility] Address: [address] [place] [address] Performed By: #### 5 7021-8 ####[facility] [id number] [place] [address] [place] Lymphocytes/100 WBC (Bld) 14.8 % Normal [facility] Comment on above: Order Comment: Speci men Type: BLOOD SPECIMENOrdering Facility: [facility] Address: [address] [place] [address] Performed By: #### 5 7021-8 ####[facility] [id number] [place] [address] [place] MCH (RBC) [Entitic mass] 34.1 pg High 26.0-34.0 [facility] Comment on above: Order Comment: Speci men Type: BLOOD SPECIMENOrdering Facility: [facility] Address: [address] [place] [address] Performed By: #### 5 7021-8 ####[facility] [id number] [place] [address] [place] MCHC (RBC) [Mass/Vol] 33.3 g/dL Normal 30.5-36.0 [facility] Comment on above: Order Comment: Speci men Type: BLOOD SPECIMENOrdering Facility: [facility] Address: [address] [place] [address] Performed By: #### 5 7021-8 ####[facility] [id number] [place] [address] [place] MCV (RBC) [Entitic vol] 102.4 fL High 80.0-100.0 C [facility] Comment on above: Order Comment: Speci men Type: BLOOD SPECIMENOrdering Facility: [facility] Address: [address] [place] [address] Performed By: #### 5 7021-8 ####[facility] [id number] [place] [address] [place] Monocytes (Bld) [#/Vol] 0.73 10*3/uL Normal <0.87 [facility] Comment on above: Order Comment: Speci men Type: BLOOD SPECIMENOrdering Facility: [facility] Address: [address] [place] [address] Performed By: #### 5 7021-8 ####[facility] [id number] [place] [address] [place] Monocytes/100 WBC (Bld) 20.3 % Normal C [facility] Comment on above: Order Comment: Speci men Type: BLOOD SPECIMENOrdering Facility: [facility] Address: [address] [place] [address] Performed By: #### 5 7021-8 ####[facility] [id number] [place] [address] [place] Neutrophils (Bld) [#/Vol] 2.11 10*3/uL Normal 1.45-7.50 [facility] Comment on above: Order Comment: Speci men Type: BLOOD SPECIMENOrdering Facility: [facility] Address: [address] [place] [address] Performed By: #### 5 7021-8 ####[facility] MANJULAWFRANCISCOLIA [id number] [address] Neutrophils/100 WBC (Bld) 58.8 % Normal [facility] Comment on above: Order Comment: Speci men Type: BLOOD SPECIMENOrdering Facility: [facility] Address: [address] [place] [address] Performed By: #### 5 7021-8 ####[facility] [id number] [place] [address] [place] Nucleated RBC (Bld) [#/Vol] 10*3/uL Normal <0.01 [facility] Comment on above: Order Comment: Speci men Type: BLOOD SPECIMENOrdering Facility: [facility] Address: [address] [place] [address] Performed By: #### 5 7021-8 ####[facility] [id number] [place] [address] [place] Nucleated RBC/100 WBC (Bld) [Ratio] 0.0 /100 WBC Normal [facility] Comment on above: Order Comment: Speci men Type: BLOOD SPECIMENOrdering Facility: [facility] Address: [address] [place] [address] Performed By: #### 5 7021-8 ####[facility] H[facility]PITALLIA [id number] [place] [address] [place] Platelet mean volume (Bld) [Entitic vol] 9.6 fL Normal 9.0-12.7 [facility] Comment on above: Order Comment: Speci men Type: BLOOD SPECIMENOrdering Facility: [facility] Address: [address] [place] [address] Performed By: #### 5 7021-8 ####[facility] [id number] [place] [address] [place] Platelets (Bld) [#/Vol] 144 10*3/uL Low 150-400 [facility] Comment on above: Order Comment: Speci men Type: BLOOD SPECIMENOrdering Facility: [facility] Address: [address] [place] [address] Performed By: #### 5 7021-8 ####[facility] [id number] [place] [address] [place] RBC (Bld) [#/Vol] 3.34 10*6/uL Low 4.20-6.00 [facility] Comment on above: Order Comment: Speci men Type: BLOOD SPECIMENOrdering Facility: [facility] Address: [address] [place] [address] Performed By: #### 5 7021-8 ####[facility] [id number] [place] [address] [place] WBC (Bld) [#/Vol] 3.59 10*3/uL Low 3.70-11.00 [facility] Comment on above: Order Comment: Speci men Type: BLOOD SPECIMENOrdering Facility: [facility] Address: [address] [place] [address] Performed By: #### 5 7021-8 ####[facility] [id number] [place] [address] [place] CNOVSPon 05-20-2025 CNOVSP Normal [facility] MR/BMS.Felicia 05-15-2025 MR/BMS.JOB [facility] [address] [place] [address] OFFICE VISIT Date of Service: 05/15/25 MR#: [id number] Acct: [id number] Name: EDGAR HENDERSON Rep #: [id number] : 1950 Provider: PEGGY Hall Age/Sex: 74/M Location: [facility] Status: Signed Intake Vital Signs 01/14/25 09:55 05/01/25 07:17 05/15/25 09:40 Height 5 ft 8 in 5 ft 8 in Weight: 114 lb BP 105/66 Blood Pressure Location Rt brachial Position Sitting Respiration 16 Pulse 64 Pulse Source Monitor Temp 97.8 F Temp Source Temporal Pulse Oximetry (%) 100 Oxygen Delivery Method room air Intake Visit Reasons: F/U cath removal Chief Complaint: establish care Is patient in pain?: No Allergies No Known Allergies Allergy (Verified 05/15/25 09:40) Medications ???Medication ???Instructions ???Recorded ???Confirmed ???Type acyclovir 200 mg capsule 200 mg PO TID 09/05/24 05/15/25 Hi story atorvastatin 20 mg tablet 20 mg PO QDAY 09/05/24 05/15/25 Hi story calcium acetate 667 mg tablet 667 mg PO TID 09/05/24 05/15/25 Hi story finasteride 5 mg tablet 5 mg PO QDAY 09/05/24 05/15/25 His tory zanubrutinib 80 mg capsule 160 mg PO BID 09/05/24 05/15/25 Hi story (Brukinsa) oxycodone 5 mg tablet 5 mg PO Q8H PRN pain 2 days #6 tab s 01/14/25 05/15/25 Rx midodrine 2.5 mg tablet 2.5 mg PO ONCE PRN low BP 01/28/25 05/15/25 History Have you fallen in the past year?: No PFSH Medical History Wears glasses Cancer Depression [...] who presents to the office today for follow-up s/p removal R IJ tunneled catheter on 05/01/25. Recall that he is also s/p left upper arm AV graft placement with cadaver femoral-popliteal artery 01/14/2025. He reports the surgical site seems to be healing well, no drainage/redness/swelli ng/pain. He reports his fistula has been functioning well and dialysis has been going well. He has several questions about the pitch of the bruit through the graft and typical graft durability among others. ROS General General: Yes fatigue and weakness; [...] heart attack, heart stent, palpitations, shortness of breath with exertion or chest pain Psych Psychiatric: [...] No burning sensations, No confusion, No convulsions, Yes disequilibrium (slight), No dizziness, Yes localized weakness, No frequent falls, No headache(s), Yes lack of coordination, No loss of vision, No memory loss, Yes numbness, No other visual disturbances, No radicular pain, No restless legs, No sensory deficit, No syncope, Yes tingling, No tremor(s), Yes weakness and No other Exam Const General: cooperative, healthy appearing and (more content not included)... Normal [facility] B2 Microglob SerPl-mCncon Loxn-4-Cwahdpysjastt [Mass/Vol] 16.0 ug/mL High <3.1 [facility] Comment on above: Order Comment: Speci men Type: BLOOD SPECIMENOrdering Facility: [facility] Address: [address] [place] [address] Result Comment: Beta -2 Microglobulin test is performed using the [employer] immunoturbidimetric method. Results obtained with different methods or kits cannot be used interchangeably. Performed By: #### 2 885-2, 1952-1 ####[facility]CL[facility] [id number] [place] [address] [place] CBC W Auto Differential pane l (Bld)on 05-13-2025 Basophils (Bld) [#/Vol] 0.08 10*3/uL Normal <0.11 [facility] Comment on above: Order Comment: Speci men Type: BLOOD SPECIMENOrdering Facility: [facility] Address: [address] [place] [address] Performed By: #### 5 7021-8 ####[facility] [id number] [place] [address] [place] Basophils/100 WBC (Bld) 1.9 % Normal C [facility] Comment on above: Order Comment: Speci men Type: BLOOD SPECIMENOrdering Facility: [facility] Address: [address] [place] [address] Performed By: #### 5 7021-8 ####[facility] [id number] [place] [address] [place] Differential cell count method Nom (Bld) Auto Normal [facility] Comment on above: Order Comment: Speci men Type: BLOOD SPECIMENOrdering Facility: [facility] Address: [address] [place] [address] Performed By: #### 5 7021-8 ####[facility] ERROLPASCUALDinorah [id number] [place] [address] [place] Eosinophils (Bld) [#/Vol] 0.13 10*3/uL Normal <0.46 [facility] Comment on above: Order Comment: Speci men Type: BLOOD SPECIMENOrdering Facility: [facility] Address: [address] [place] [address] Performed By: #### 5 7021-8 ####[facility]DRENSARAHI [id number] [place] [address] [place] Eosinophils/100 WBC (Bld) 3.0 % Normal [facility] Comment on above: Order Comment: Speci men Type: BLOOD SPECIMENOrdering Facility: [facility] Address: [address] [place] [address] Performed By: #### 5 7021-8 ####[facility]ENSARAH[facility] [id number] [place] [address] [place] Erythrocyte distribution width (RBC) [Ratio] 14.3 % Normal 11.5-15.0 [facility] Comment on above: Order Comment: Speci men Type: BLOOD SPECIMENOrdering Facility: [facility] Address: [address] [place] [address] Performed By: #### 5 7021-8 ####[facility]CL[facility] [id number] [place] [address] [place] Hematocrit (Bld) [Volume fraction] 34.0 % Low 39.0-51.0 [facility] Comment on above: Order Comment: Speci men Type: BLOOD SPECIMENOrdering Facility: [facility] Address: [address] [place] [address] Performed By: #### 5 7021-8 ####[facility]CL[facility] [id number] [place] [address] [place] Hemoglobin (Bld) [Mass/Vol] 11.6 g/dL Low 13.0-17.0 [facility] Comment on above: Order Comment: Speci men Type: BLOOD SPECIMENOrdering Facility: [facility] Address: [address] [place] [address] Performed By: #### 5 7021-8 ####[facility] [id number] [place] [address] [place] Immature granulocytes (Bld) [#/Vol] 10*3/uL Normal <0.10 [facility] Comment on above: Order Comment: Speci men Type: BLOOD SPECIMENOrdering Facility: [facility] Address: [address] [place] [address] Performed By: #### 5 7021-8 ####[facility] [id number] [place] [address] [place] Immature granulocytes/100 WBC (Bld) 0.5 % Normal [facility] Comment on above: Order Comment: Speci men Type: BLOOD SPECIMENOrdering Facility: [facility] Address: [address] [place] [address] Performed By: #### 5 7021-8 ####[facility] [id number] [place] [address] [place] Lymphocytes (Bld) [#/Vol] 0.46 10*3/uL Low 1.00-4.00 [facility] Comment on above: Order Comment: Speci men Type: BLOOD SPECIMENOrdering Facility: [facility] Address: [address] [place] [address] Performed By: #### 5 7021-8 ####[facility] HOSPITALLIA [id number] [place] [address] [place] Lymphocytes/100 WBC (Bld) 10.6 % Normal [facility] Comment on above: Order Comment: Speci men Type: BLOOD SPECIMENOrdering Facility: [facility] Address: [address] [place] [address] Performed By: #### 5 7021-8 ####[facility]DRENNCPASCUAL [id number] [place] [address] [place] MCH (RBC) [Entitic mass] 35.6 pg High 26.0-34.0 [facility] Comment on above: Order Comment: Speci men Type: BLOOD SPECIMENOrdering Facility: [facility] Address: [address] [place] [address] Performed By: #### 5 7021-8 ####[facility] [id number] [place] [address] [place] MCHC (RBC) [Mass/Vol] 34.1 g/dL Normal 30.5-36.0 [facility] Comment on above: Order Comment: Speci men Type: BLOOD SPECIMENOrdering Facility: [facility] Address: [address] [place] [address] Performed By: #### 5 7021-8 ####[facility]DRENNCLI [id number] [place] [address] [place] MCV (RBC) [Entitic vol] 104.3 fL High 80.0-100.0 C [facility] Comment on above: Order Comment: Speci men Type: BLOOD SPECIMENOrdering Facility: [facility] Address: [address] [place] [address] Performed By: #### 5 7021-8 ####[facility]DRENNCLI [id number] [place] [address] [place] Monocytes (Bld) [#/Vol] 0.63 10*3/uL Normal <0.87 [facility] Comment on above: Order Comment: Speci men Type: BLOOD SPECIMENOrdering Facility: [facility] Address: [address] [place] [address] Performed By: #### 5 7021-8 ####[facility] MANJULAToniNCLIA [id number] [place] [address] [place] Monocytes/100 WBC (Bld) 14.6 % Normal [facility] Comment on above: Order Comment: Speci men Type: BLOOD SPECIMENOrdering Facility: [facility] Address: [address] [place] [address] Performed By: #### 5 7021-8 ####[facility]DRENNCA [id number] [place] [address] [place] Neutrophils (Bld) [#/Vol] 3.00 10*3/uL Normal 1.45-7.50 [facility] Comment on above: Order Comment: Speci men Type: BLOOD SPECIMENOrdering Facility: [facility] Address: [address] [place] [address] Performed By: #### 5 7021-8 ####[facility] [id number] [place] [address] [place] Neutrophils/100 WBC (Bld) 69.4 % Normal [facility] Comment on above: Order Comment: Speci men Type: BLOOD SPECIMENOrdering Facility: [facility] Address: [address] [place] [address] Performed By: #### 5 7021-8 ####[facility] HOSPITALLIA [id number] [place] [address] [place] Nucleated RBC (Bld) [#/Vol] 10*3/uL Normal <0.01 [facility] Comment on above: Order Comment: Speci men Type: BLOOD SPECIMENOrdering Facility: [facility] Address: [address] [place] [address] Performed By: #### 5 7021-8 ####[facility]DRENNCL[facility] [id number] [place] [address] [place] Nucleated RBC/100 WBC (Bld) [Ratio] 0.0 /100 WBC Normal [facility] Comment on above: Order Comment: Speci men Type: BLOOD SPECIMENOrdering Facility: [facility] Address: [address] [place] [address] Performed By: #### 5 7021-8 ####[facility] CHILDRENDAISYA [id number] [place] [address] [place] Platelet mean volume (Bld) [Entitic vol] 10.1 fL Normal 9.0-12.7 [facility] Comment on above: Order Comment: Speci men Type: BLOOD SPECIMENOrdering Facility: [facility] Address: [address] [place], [place] [address] Performed By: #### 5 7021-8 ####[facility] [id number] [place] [address] [place] Platelets (Bld) [#/Vol] 145 10*3/uL Low 150-400 [facility] Comment on above: Order Comment: Speci men Type: BLOOD SPECIMENOrdering Facility: [facility] Address: [address] [place] [address] Performed By: #### 5 7021-8 ####[facility] [id number] [place] [address] [place] RBC (Bld) [#/Vol] 3.26 10*6/uL Low 4.20-6.00 [facility] Comment on above: Order Comment: Speci men Type: BLOOD SPECIMENOrdering Facility: [facility] Address: [address] [place] [address] Performed By: #### 5 7021-8 ####[facility] [id number] [place] [address] [place] WBC (Bld) [#/Vol] 4.32 10*3/uL Normal 3.70-11.00 [facility] Comment on above: Order Comment: Speci men Type: BLOOD SPECIMENOrdering Facility: [facility] Address: [address] [place] [address] Performed By: #### 5 7021-8 ####[facility] HOSPITALLIA [id number] [place] [address] [place] Comprehensive metabolic 2000 panelon 05-13-2025 Albumin [Mass/Vol] 4.5 g/dL Normal 3.9-4.9 [facility] Comment on above: Order Comment: Speci men Type: BLOOD SPECIMENOrdering Facility: [facility] Address: [address] [place] [address] Performed By: #### 2 532-0, 88709-4 ####[facility] [id number] [place] [address] [place] ALP [Catalytic activity/Vol] 112 U/L Normal 38-113 [facility] Comment on above: Order Comment: Speci men Type: BLOOD SPECIMENOrdering Facility: [facility] Address: [address] [place] [address] Performed By: #### 2 532-0, 05630-9 ####[facility] HOSPITALLIA [id number] [place] [address] [place] ALT [Catalytic activity/Vol] 17 U/L Normal 10-54 [facility] Comment on above: Order Comment: Speci men Type: BLOOD SPECIMENOrdering Facility: [facility] Address: [address] [place] [address] Performed By: #### 2 532-0, 93116-9 ####[facility]DRENNCLIA [id number] [place] [address] [place] Anion gap [Moles/Vol] 15 mmol/L Normal 8-15 [facility] Comment on above: Order Comment: Speci men Type: BLOOD SPECIMENOrdering Facility: [facility] Address: [address] [place] [address] Performed By: #### 2 532-0, 43584-5 ####[facility]DRENNCLIA [id number] [place] [address] [place] AST [Catalytic activity/Vol] 15 U/L Normal 14-40 [facility] Comment on above: Order Comment: Speci men Type: BLOOD SPECIMENOrdering Facility: [facility] Address: [address] [place] [address] Performed By: #### 2 532-0, 56712-8 ####[facility] CHILDRENFRANCISCODinorah [id number] [place] [address] [place] Bilirubin [Mass/Vol] 0.4 mg/dL Normal 0.2-1.3 [facility] Comment on above: Order Comment: Speci men Type: BLOOD SPECIMENOrdering Facility: [facility] Address: [address] [place] [address] Performed By: #### 2 532-0, 46652-0 ####[facility]ILDRENNCCARMELINA [id number] [place] [address] [place] Calcium [Mass/Vol] 9.5 mg/dL Normal 8.5-10.2 [facility] Comment on above: Order Comment: Speci men Type: BLOOD SPECIMENOrdering Facility: [facility] Address: [address] [place] [address] Performed By: #### 2 532-0, 29323-0 ####[facility]DRENNCLIA [id number] [place] [address] [place] Chloride [Moles/Vol] 98 mmol/L Normal 98-107 [facility] Comment on above: Order Comment: Speci men Type: BLOOD SPECIMENOrdering Facility: [facility] Address: [address] [place] [address] Performed By: #### 2 532-0, 87945-3 ####[facility] RADHANCPASCUALA [id number] [place] [address] [place] CO2 [Moles/Vol] 27 mmol/L Normal 22-30 [facility] Comment on above: Order Comment: Speci men Type: BLOOD SPECIMENOrdering Facility: [facility] Address: [address] [place] [address] Performed By: #### 2 532-0, 33812-8 ####[facility]DRENNCA [id number] [place] [address] [place] Creatinine [Mass/Vol] 4.64 mg/dL High 0.73-1.22 [facility] Comment on above: Order Comment: Speci men Type: BLOOD SPECIMENOrdering Facility: [facility] Address: [address] [place] [address] Performed By: #### 2 532-0, 83566-2 ####[facility] [id number] [place] [address] [place] eGFRcr SerPlBld CKD-EPI 2020 13 mL/min/1.73m??? Low >=60 [facility] Comment on above: Order Comment: Speci men Type: BLOOD SPECIMENOrdering Facility: [facility] Address: [address] [place] [address] Result Comment: Radha mated Glomerular Filtration Rate [...] actual GFR. Performed By: #### 2 532-0, 05695-8 ####[facility] HOSPITALWNCLIA [id number] [place] [address] [place] Glucose [Mass/Vol] 113 mg/dL High 74-99 [facility] Comment on above: Order Comment: Speci men Type: BLOOD SPECIMENOrdering Facility: [facility] Address: [address] [place], [place] [address] Result Comment: The [employer] Diabetes Association (ADA) provides guidance for cutoff [...] Standards of Medical Care in Diabetes 2016, [employer]. Diabetes Care. 2016.39(Suppl 1). Performed By: #### 2 532-0, 83392-6 ####[facility] [id number] [place] [address] [place] Potassium [Moles/Vol] 3.8 mmol/L Normal 3.7-5.1 [facility] Comment on above: Order Comment: Speci men Type: BLOOD SPECIMENOrdering Facility: [facility] Address: [address] [place] [address] Performed By: #### 2 532-0, 23791-2 ####[facility] [id number] [place] [address] [place] Protein [Mass/Vol] 6.1 g/dL Low 6.3-8.0 [facility] Comment on above: Order Comment: Speci men Type: BLOOD SPECIMENOrdering Facility: [facility] Address: [address] [place], [place] [address] Performed By: #### 2 532-0, 99735-6 ####[facility] MANJULAWNCLIA [id number] [place] [address] [place] Sodium [Moles/Vol] 140 mmol/L Normal 136-144 [facility] Comment on above: Order Comment: Speci men Type: BLOOD SPECIMENOrdering Facility: [facility] Address: [address] [place] [address] Performed By: #### 2 532-0, 79249-6 ####[facility] HOSPITALLIA [id number] [place] [address] [place] Urea nitrogen [Mass/Vol] 49 mg/dL High 9-24 [facility] Comment on above: Order Comment: Speci men Type: BLOOD SPECIMENOrdering Facility: [facility] Address: [address] [place] [address] Performed By: #### 2 532-0, 21068-8 ####[facility] H[facility]ITALL[facility] [id number] [place] [address] [place] IMMUNOFIXATION SCREEN, SERUM on 05-13-2025 MPA RESULT No M protein is identified. Normal No M protein is identified. [facility] Comment on above: Order Comment: Speci men Type: BLOOD SPECIMENOrdering Facility: [facility] Address: [address] [place] [address] Performed By: #### I FESC ####[facility] LABCL[facility] [id number] [place] [id number] [place] [place] STAFF REVIEW (MPA) Reviewed by Leticia Amador MD Normal [facility] Comment on above: Order Comment: Speci men Type: BLOOD SPECIMENOrdering Facility: [facility] Address: [address] [place] [address] Performed By: #### I FESC ####[facility] [id number] [address] [address] [place] IMMUNOGLOBULINS,IGG,IGA,IGMo n 08-26-2025 IgA [Mass/Vol] 17 mg/dL Low 70-400 [facility] Comment on above: Order Comment: Speci men Type: BLOOD SPECIMENOrdering Facility: [facility] Address: [address] [place] [address] Performed By: #### S ERIMM ####[facility] LABCLIA [id number] [place] [address] [place] IgG [Mass/Vol] 301 mg/dL Low 700-1600 [facility] Comment on above: Order Comment: Speci men Type: BLOOD SPECIMENOrdering Facility: [facility] Address: [address] [place] [address] Performed By: #### S ERIMM ####[facility] LABCLIA [id number] [place] [address] [place] IgM [Mass/Vol] 36 mg/dL Low 40-230 [facility] Comment on above: Order Comment: Speci men Type: BLOOD SPECIMENOrdering Facility: [facility] Address: [address] [place] [address] Performed By: #### S ERIMM ####[facility] [id number] [place] [address] [place] KAPPA/EMERY,FREE,SERon 2024 Immunoglobulin light chains.kappa.free (S) [Mass/Vol] 28.6 mg/L High 3.3-19.4 [facility] Comment on above: Order Comment: Speci men Type: BLOOD SPECIMENOrdering Facility: [facility] Address: [address] [place] [address] Result Comment: Rare ly, increased serum free light chains levels may not be detected or accurately quantified due to prozone phenomenon or in high viscosity samples using this immunoturbidimetric assay. Correlation with other laboratory results and clinical findings is recommended.The [place] Free Light Chain was performed using the [employer] immunoturbidimetric method. Result obtained with different assay methods or kits cannot be used interchangeably. Performed By: #### K LFRS ####[facility] [id number] [place] [address] [place] Immunoglobulin light chains.kappa/Immunoglob ulin light chains.lambda (S) [Mass ratio] 1.67 High 0.26-1.65 [facility] Comment on above: Order Comment: Speci men Type: BLOOD SPECIMENOrdering Facility: [facility] Address: [address] [place] [address] Performed By: #### K LFRS ####[facility] CENTERIA [id number] [place] [address] [place] Immunoglobulin light chains.lambda.free [Mass/Vol] 17.1 mg/L Normal 5.7-26.3 [facility] Comment on above: Order Comment: [facility] Type: BLOOD SPECIMENOrdering Facility: [facility] Address: [address] [place] [address] Result Comment: Rare ly, increased serum free [...] used interchangeably. Performed By: #### K LFRS ####[facility] CENTERIA [id number] [place] [address] [place] LDH SerPl-cCncon 05-13-2025 LDH [Catalytic activity/Vol] 216 U/L Normal 135-225 [facility] Comment on above: Order Comment: [facility] Type: BLOOD SPECIMENOrdering Facility: [facility] Address: [address] [place] [address] Result Comment: Hemo lysis present. The origin of the hemolysis, in vitro versus an in vivo hemolytic process, cannot be distinguished via this assay alone. In vitro hemolysis may lead to non-physiological (spurious) elevation in lactate dehydrogenase (LDH) results. Theresult should be interpreted in context of the clinical setting and other test results. Suggest reorder as clinically indicated. Performed By: #### 2 532-0, 64890-2 ####[facility] [id number] [place] [id number] [place] PROTEIN ELECTROPHORESIS SERU M (P)on 05-13-2025 Albumin [Mass/Vol] 4.32 g/dL Normal 3.43-5.41 [facility] Comment on above: Order Comment: Speci men Type: BLOOD SPECIMENOrdering Facility: [facility] Address: [address] [place] [address] Performed By: #### L [id number] ####[facility] [id number] [place] [address] [place] Alpha 1 globulin Elph [Mass/Vol] 0.30 g/dL Normal 0.18-0.43 [facility] Comment on above: Order Comment: Speci men Type: BLOOD SPECIMENOrdering Facility: [facility] Address: [address] [place] [address] Performed By: #### L [id number] ####[facility] CENTERIA [id number] [place] [address] [place] Alpha 2 globulin Elph [Mass/Vol] 0.62 g/dL Normal 0.42-0.98 [facility] Comment on above: Order Comment: Speci men Type: BLOOD SPECIMENOrdering Facility: [facility] Address: [address] [place] [address] Performed By: #### L [id number] ####[facility] [id number] [place] [address] [place] Beta globulin Elph [Mass/Vol] 0.50 g/dL Low 0.61-1.17 [facility] Comment on above: Order Comment: Speci men Type: BLOOD SPECIMENOrdering Facility: [facility] Address: [address] [place] [address] Performed By: #### L [id number] ####[facility] [id number] [place] [address] [place] Gamma globulin Elph [Mass/Vol] 0.26 g/dL Low 0.53-1.51 [facility] Comment on above: Order Comment: Speci men Type: BLOOD SPECIMENOrdering Facility: [facility] Address: [address] [place] [address] Performed By: #### L [id number] ####[facility] [id number] [place] [address] [place] M-PROTEIN LOCATION Normal [facility] Comment on above: Order Comment: Speci men Type: BLOOD SPECIMENOrdering Facility: [facility] Address: [address] [place] [address] Result Comment: Not Applicable. Performed By: #### L [id number] ####[facility] [id number] [address] [place] Protein Fractions [Interp] No definitive M protein is identified on protein electrophoresis. Normal No definitive M protein is identified on protein electrophores is. [facility] Comment on above: Order Comment: Speci men Type: BLOOD SPECIMENOrdering Facility: [facility] Address: [address] [place] [address] Performed By: #### L [id number] ####[facility] [id number] [address] [place] Protein.monoclonal Elph [Mass/Vol] 0.00 g/dL Normal <=0.00 [facility] Comment on above: Order Comment: Speci men Type: BLOOD SPECIMENOrdering Facility: [facility] Address: [address] [place] [address] Performed By: #### L [id number] ####[facility] [id number] [place] [address] [place] SPE STAFF REVIEW Reviewed by Leticia Amador MD [facility] Comment on above: Order Comment: Speci men Type: BLOOD SPECIMENOrdering Facility: [facility] Address: [address] [place] [address] Performed By: #### L [id number] ####[facility] [id number] [place] [id number] [place] Prot SerPl-mCncon 05-13-2025 Protein [Mass/Vol] 6.0 g/dL Low 6.3-8.0 [facility] Comment on above: Order Comment: Speci men Type: BLOOD SPECIMENOrdering Facility: [facility] Address: [address] [place] [address] Performed By: #### 2 885-2, 1951-09 ####[facility] [id number] [address] OF [facility] Operative Reporton 5 Operative Report [facility] Medical Records Department [address] [place] [address] Operative Report 05/01/25 1356 MR#: [id number] Acct: [id number] Name: EDGAR HENDERSON Rep #: [id number] : 1950 74 From: Alvarado Brody MD PCP: Dr. 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 He previously had a right IJ catheter in use however he now has a successful left upper arm AV graft. He presents now for catheter removal. Description of procedure: Upon obtaining informed consent and verification correct patient procedure and site patient was taken to the [employer] where he was positioned prepped and draped in usual sterile fashion. Timeouts performed consultation administered Versed and fentanyl. Skin overlying the tunneled dialysis catheter and its tract were anesthetized with 1% lidocaine. Blunt dissection from the catheter entry point into the skin was utilized to mobilize the catheter up to the cuff. Given the distance to the cuff we were unable to fully mobilize the hand separate the cuff from the surrounding tissue so a counterincision over the cuff was made with an 11 blade and blunt dissection used to dissect down to the catheter. Soft tissue there was anchoring the cuff was divided with sharp dissection and the catheter withdrawn followed by 5 minutes of manual pressure at the vessel entry site until hemostasis was observed. Surgicel topical hemostatic was placed within the counterincision and it was then closed with 4-0 Monocryl followed by Dermabond. Dry sterile dressing was applied the patient taken the cover area plan discharge to home. Surgical Findings: See above Complications Complications: No 05/01/25 1400 Cosigner Signature (if applicable): CC: Dr. Alvarado Brody MD; Dr. Jose Miguel Herbert MD Signed Normal [facility] CBC W Auto Differential pane l (Bld)on 04-22-2025 Basophils (Bld) [#/Vol] 0.07 10*3/uL Normal <0.11 [facility] Comment on above: Order Comment: Speci men Type: BLOOD SPECIMENOrdering Facility: [facility] Address: [address] [place] [address] Performed By: #### 5 7021-8 ####[facility] [id number] [place] [address] [place] Basophils/100 WBC (Bld) 2.1 % Normal C [facility] Comment on above: Order Comment: Speci men Type: BLOOD SPECIMENOrdering Facility: [facility] Address: [address] [place] [address] Performed By: #### 5 7021-8 ####[facility] [id number] [place] [address] [place] Differential cell count method Nom (Bld) Auto Normal [facility] Comment on above: Order Comment: Speci men Type: BLOOD SPECIMENOrdering Facility: [facility] Address: [address] [place] [address] Performed By: #### 5 7021-8 ####[facility] [id number] [place] [address] [place] Eosinophils (Bld) [#/Vol] 0.12 10*3/uL Normal <0.46 [facility] Comment on above: Order Comment: Speci men Type: BLOOD SPECIMENOrdering Facility: [facility] Address: [address] [place] [address] Performed By: #### 5 7021-8 ####[facility] [id number] [place] [address] [place] Eosinophils/100 WBC (Bld) 3.6 % Normal [facility] Comment on above: Order Comment: Speci men Type: BLOOD SPECIMENOrdering Facility: [facility] Address: [address] [place] [address] Performed By: #### 5 7021-8 ####[facility] [id number] [place] [address] [place] Erythrocyte distribution width (RBC) [Ratio] 14.1 % Normal 11.5-15.0 [facility] Comment on above: Order Comment: Speci men Type: BLOOD SPECIMENOrdering Facility: [facility] Address: [address] [place] [address] Performed By: #### 5 7021-8 ####[facility] [id number] [place] [address] [place] Hematocrit (Bld) [Volume fraction] 32.6 % Low 39.0-51.0 [facility] Comment on above: Order Comment: Speci men Type: BLOOD SPECIMENOrdering Facility: [facility] Address: [address] [place] [address] Performed By: #### 5 7021-8 ####[facility]ITALWNCLIA [id number] [place] [address] [place] Hemoglobin (Bld) [Mass/Vol] 10.9 g/dL Low 13.0-17.0 [facility] Comment on above: Order Comment: Speci men Type: BLOOD SPECIMENOrdering Facility: [facility] Address: [address] [place] [address] Performed By: #### 5 7021-8 ####[facility]CLIA [id number] [place] [address] [place] Immature granulocytes (Bld) [#/Vol] 10*3/uL Normal <0.10 [facility] Comment on above: Order Comment: Speci men Type: BLOOD SPECIMENOrdering Facility: [facility] Address: [address] [place] [address] Performed By: #### 5 7021-8 ####[facility]CL[facility] [id number] [place] [address] [place] Immature granulocytes/100 WBC (Bld) 0.3 % Normal [facility] Comment on above: Order Comment: Speci men Type: BLOOD SPECIMENOrdering Facility: [facility] Address: [address] [place] [address] Performed By: #### 5 7021-8 ####[facility] HOSPITALLIA [id number] [place] [address] [place] Lymphocytes (Bld) [#/Vol] 0.54 10*3/uL Low 1.00-4.00 [facility] Comment on above: Order Comment: Speci men Type: BLOOD SPECIMENOrdering Facility: [facility] Address: [address] [place] [address] Performed By: #### 5 7021-8 ####[facility] [id number] [place] [address] [place] Lymphocytes/100 WBC (Bld) 16.0 % Normal [facility] Comment on above: Order Comment: Speci men Type: BLOOD SPECIMENOrdering Facility: [facility] Address: [address] [place] [address] Performed By: #### 5 7021-8 ####[facility]ILDRENSARAHI [id number] [place] [address] [place] MCH (RBC) [Entitic mass] 34.8 pg High 26.0-34.0 [facility] Comment on above: Order Comment: Speci men Type: BLOOD SPECIMENOrdering Facility: [facility] Address: [address] [place] [address] Performed By: #### 5 7021-8 ####[facility] [id number] [place] [address] [place] MCHC (RBC) [Mass/Vol] 33.4 g/dL Normal 30.5-36.0 [facility] Comment on above: Order Comment: Speci men Type: BLOOD SPECIMENOrdering Facility: [facility] Address: [address] [place] [address] Performed By: #### 5 7021-8 ####[facility] [id number] [place] [address] [place] MCV (RBC) [Entitic vol] 104.2 fL High 80.0-100.0 C [facility] Comment on above: Order Comment: Speci men Type: BLOOD SPECIMENOrdering Facility: [facility] Address: [address] [place] [address] Performed By: #### 5 7021-8 ####[facility] HOSPITALCARMELINA [id number] [place] [address] [place] Monocytes (Bld) [#/Vol] 0.61 10*3/uL Normal <0.87 [facility] Comment on above: Order Comment: Speci men Type: BLOOD SPECIMENOrdering Facility: [facility] Address: [address] [place] [address] Performed By: #### 5 7021-8 ####[facility] HOSPITALLIA [id number] [place] [address] [place] Monocytes/100 WBC (Bld) 18.0 % Normal [facility] Comment on above: Order Comment: Speci men Type: BLOOD SPECIMENOrdering Facility: [facility] Address: [address] [place] [address] Performed By: #### 5 7021-8 ####[facility] [id number] [place] [address] [place] Neutrophils (Bld) [#/Vol] 2.03 10*3/uL Normal 1.45-7.50 [facility] Comment on above: Order Comment: Speci men Type: BLOOD SPECIMENOrdering Facility: [facility] Address: [address] [place] [address] Performed By: #### 5 7021-8 ####[facility] [id number] [place] [address] [place] Neutrophils/100 WBC (Bld) 60.0 % Normal [facility] Comment on above: Order Comment: Speci men Type: BLOOD SPECIMENOrdering Facility: [facility] Address: [address] [place] [address] Performed By: #### 5 7021-8 ####[facility] [id number] [place] [address] [place] Nucleated RBC (Bld) [#/Vol] 10*3/uL Normal <0.01 [facility] Comment on above: Order Comment: Speci men Type: BLOOD SPECIMENOrdering Facility: [facility] Address: [address] [place] [address] Performed By: #### 5 7021-8 ####[facility] MANJULAToniNCLIA [id number] [place] [address] [place] Nucleated RBC/100 WBC (Bld) [Ratio] 0.0 /100 WBC Normal [facility] Comment on above: Order Comment: Speci men Type: BLOOD SPECIMENOrdering Facility: [facility] Address: [address] [place] [address] Performed By: #### 5 7021-8 ####[facility]CL[facility] [id number] [place] [address] [place] Platelet mean volume (Bld) [Entitic vol] 10.2 fL Normal 9.0-12.7 [facility] Comment on above: Order Comment: Speci men Type: BLOOD SPECIMENOrdering Facility: [facility] Address: [address] [place] [address] Performed By: #### 5 7021-8 ####[facility]CL[facility] [id number] [place] [address] [place] Platelets (Bld) [#/Vol] 121 10*3/uL Low 150-400 [facility] Comment on above: Order Comment: Speci men Type: BLOOD SPECIMENOrdering Facility: [facility] Address: [address] [place] [address] Performed By: #### 5 7021-8 ####[facility]CL[facility] [id number] [place] [address] [place] RBC (Bld) [#/Vol] 3.13 10*6/uL Low 4.20-6.00 [facility] Comment on above: Order Comment: Speci men Type: BLOOD SPECIMENOrdering Facility: [facility] Address: [address] [place] [address] Performed By: #### 5 7021-8 ####[facility]DRENNCA [id number] [place] [address] [place] WBC (Bld) [#/Vol] 3.38 10*3/uL Low 3.70-11.00 [facility] Comment on above: Order Comment: Speci men Type: BLOOD SPECIMENOrdering Facility: [facility] Address: [address] [place] [address] Performed By: #### 5 7021-8 ####[facility] [id number] [place] [address] [place] CNPNon 04-22-2025 CNPN Normal [facility] B2 Microglob SerPl-mCncon Hokf-4-Alozhrfemnvye [Mass/Vol] 15.7 ug/mL High <3.1 [facility] Comment on above: Order Comment: Speci men Type: BLOOD SPECIMENOrdering Facility: [facility] Address: [address] [place] [address] Result Comment: Beta -2 Microglobulin test is performed using the [employer] immunoturbidimetric method. Results obtained with different methods or kits cannot be used interchangeably. Performed By: #### 2 885-2, 1951-09 ####[facility] [id number] [place] [address] [place] CBC W Auto Differential pane l (Bld)on 03-18-2025 Basophils (Bld) [#/Vol] 0.04 10*3/uL Normal <0.11 [facility] Comment on above: Order Comment: Speci men Type: BLOOD SPECIMENOrdering Facility: [facility] Address: [address] [place] [address] Performed By: #### 5 7021-8 ####[facility] [id number] [place] [address] [place] Basophils/100 WBC (Bld) 1.1 % Normal [facility] Comment on above: Order Comment: Speci men Type: BLOOD SPECIMENOrdering Facility: [facility] Address: [address] [place] [address] Performed By: #### 5 7021-8 ####[facility] MANJULAWFRANCISCOLIA [id number] [place] [address] [place] Differential cell count method Nom (Bld) Auto Normal [facility] Comment on above: Order Comment: Speci men Type: BLOOD SPECIMENOrdering Facility: [facility] Address: [address] [place] [address] Performed By: #### 5 7021-8 ####[facility] MANJULADENVERNCLIA [id number] [place] [address] [place] Eosinophils (Bld) [#/Vol] 0.13 10*3/uL Normal <0.46 [facility] Comment on above: Order Comment: Speci men Type: BLOOD SPECIMENOrdering Facility: [facility] Address: [address] [place] [address] Performed By: #### 5 7021-8 ####[facility]CL[facility] [id number] [place] [address] [place] Eosinophils/100 WBC (Bld) 3.5 % Normal [facility] Comment on above: Order Comment: Speci men Type: BLOOD SPECIMENOrdering Facility: [facility] Address: [address] [place] [address] Performed By: #### 5 7021-8 ####[facility]ITALWNCLIA [id number] [place] [address] [place] Erythrocyte distribution width (RBC) [Ratio] 14.5 % Normal 11.5-15.0 [facility] Comment on above: Order Comment: Speci men Type: BLOOD SPECIMENOrdering Facility: [facility] Address: [address] [place] [address] Performed By: #### 5 7021-8 ####[facility] [id number] [place] [address] [place] Hematocrit (Bld) [Volume fraction] 32.6 % Low 39.0-51.0 [facility] Comment on above: Order Comment: Speci men Type: BLOOD SPECIMENOrdering Facility: [facility] Address: [address] [place] [address] Performed By: #### 5 7021-8 ####[facility] [id number] [place] [address] [place] Hemoglobin (Bld) [Mass/Vol] 10.8 g/dL Low 13.0-17.0 [facility] Comment on above: Order Comment: Speci men Type: BLOOD SPECIMENOrdering Facility: [facility] Address: [address] [place] [address] Performed By: #### 5 7021-8 ####[facility] [id number] [place] [address] [place] Immature granulocytes (Bld) [#/Vol] 10*3/uL Normal <0.10 [facility] Comment on above: Order Comment: Speci men Type: BLOOD SPECIMENOrdering Facility: [facility] Address: [address] [place] [address] Performed By: #### 5 7021-8 ####[facility] [id number] [place] [address] [place] Immature granulocytes/100 WBC (Bld) 0.5 % Normal [facility] Comment on above: Order Comment: Speci men Type: BLOOD SPECIMENOrdering Facility: [facility] Address: [address] [place] [address] Performed By: #### 5 7021-8 ####[facility] [id number] [place] [address] [place] Lymphocytes (Bld) [#/Vol] 0.43 10*3/uL Low 1.00-4.00 [facility] Comment on above: Order Comment: Speci men Type: BLOOD SPECIMENOrdering Facility: [facility] Address: [address] [place] [address] Performed By: #### 5 7021-8 ####[facility] [id number] [place] [address] [place] Lymphocytes/100 WBC (Bld) 11.7 % Normal [facility] Comment on above: Order Comment: Speci men Type: BLOOD SPECIMENOrdering Facility: [facility] Address: [address] [place] [address] Performed By: #### 5 7021-8 ####[facility] [id number] [place] [address] [place] MCH (RBC) [Entitic mass] 34.7 pg High 26.0-34.0 [facility] Comment on above: Order Comment: Speci men Type: BLOOD SPECIMENOrdering Facility: [facility] Address: [address] [place] [address] Performed By: #### 5 7021-8 ####[facility] [id number] [place] [address] [place] MCHC (RBC) [Mass/Vol] 33.1 g/dL Normal 30.5-36.0 [facility] Comment on above: Order Comment: Speci men Type: BLOOD SPECIMENOrdering Facility: [facility] Address: [address] [place] [address] Performed By: #### 5 7021-8 ####[facility] [id number] [address] [place] MCV (RBC) [Entitic vol] 104.8 fL High 80.0-100.0 C [facility] Comment on above: Order Comment: Speci men Type: BLOOD SPECIMENOrdering Facility: [facility] Address: [address] [place] [address] Performed By: #### 5 7021-8 ####[facility] MILLTOWNCLIA [id number] [place] [address] [place] Monocytes (Bld) [#/Vol] 0.57 10*3/uL Normal <0.87 [facility] Comment on above: Order Comment: Speci men Type: BLOOD SPECIMENOrdering Facility: [facility] Address: [address] [place] [address] Performed By: #### 5 7021-8 ####[facility] MILLWNCLIA [id number] [place] [address] [place] Monocytes/100 WBC (Bld) 15.5 % Normal C [facility] Comment on above: Order Comment: Speci men Type: BLOOD SPECIMENOrdering Facility: [facility] Address: [address] [place] [address] Performed By: #### 5 7021-8 ####[facility] [id number] [place] [address] [place] Neutrophils (Bld) [#/Vol] 2.49 10*3/uL Normal 1.45-7.50 [facility] Comment on above: Order Comment: Speci men Type: BLOOD SPECIMENOrdering Facility: [facility] Address: [address] [place] [address] Performed By: #### 5 7021-8 ####[facility] MILLTOWNCLIA [id number] [place] [address] [place] Neutrophils/100 WBC (Bld) 67.7 % Normal [facility] Comment on above: Order Comment: Speci men Type: BLOOD SPECIMENOrdering Facility: [facility] Address: [address] [place] [address] Performed By: #### 5 7021-8 ####[facility] MILLTOWNCLIA [id number] [place] [address] [place] Nucleated RBC (Bld) [#/Vol] 10*3/uL Normal <0.01 [facility] Comment on above: Order Comment: Speci men Type: BLOOD SPECIMENOrdering Facility: [facility] Address: [address] [place] [address] Performed By: #### 5 7021-8 ####[facility] [id number] [place] [address] [place] Nucleated RBC/100 WBC (Bld) [Ratio] 0.0 /100 WBC Normal [facility] Comment on above: Order Comment: Speci men Type: BLOOD SPECIMENOrdering Facility: [facility] Address: [address] [place] [address] Performed By: #### 5 7021-8 ####[facility] [id number] [place] [address] [place] Platelet mean volume (Bld) [Entitic vol] 10.2 fL Normal 9.0-12.7 [facility] Comment on above: Order Comment: Speci men Type: BLOOD SPECIMENOrdering Facility: [facility] Address: [address] [place] [address] Performed By: #### 5 7021-8 ####[facility]ENNCPASCUALA [id number] [place] [address] [place] Platelets (Bld) [#/Vol] 152 10*3/uL Normal 150-400 [facility] Comment on above: Order Comment: Speci men Type: BLOOD SPECIMENOrdering Facility: [facility] Address: [address] [place] [address] Performed By: #### 5 7021-8 ####[facility] [id number] [place] [address] [place] RBC (Bld) [#/Vol] 3.11 10*6/uL Low 4.20-6.00 [facility] Comment on above: Order Comment: Speci men Type: BLOOD SPECIMENOrdering Facility: [facility] Address: [address] [place] [address] Performed By: #### 5 7021-8 ####[facility] [id number] [place] [address] [place] WBC (Bld) [#/Vol] 3.68 10*3/uL Low 3.70-11.00 [facility] Comment on above: Order Comment: Speci men Type: BLOOD SPECIMENOrdering Facility: [facility] Address: [address] [place] [address] Performed By: #### 5 7021-8 ####[facility] [id number] [place] [address] [place] Comprehensive metabolic 2000 panelon 03-18-2025 Albumin [Mass/Vol] 4.4 g/dL Normal 3.9-4.9 [facility] Comment on above: Order Comment: Speci men Type: BLOOD SPECIMENOrdering Facility: [facility] Address: [address] [place] [address] Performed By: #### 2 532-0, 64579-8 ####[facility] [id number] [place] [address] [place] ALP [Catalytic activity/Vol] 98 U/L Normal 38-113 [facility] Comment on above: Order Comment: Speci men Type: BLOOD SPECIMENOrdering Facility: [facility] Address: [address] [place] [address] Performed By: #### 2 532-0, 06156-5 ####[facility]CL[facility] [id number] [place] [address] [place] ALT [Catalytic activity/Vol] 15 U/L Normal 10-54 [facility] Comment on above: Order Comment: Speci men Type: BLOOD SPECIMENOrdering Facility: [facility] Address: [address] [place] [address] Performed By: #### 2 532-0, 73506-2 ####[facility] MARIA ESTHER RADHANCCARMELINA [id number] [place] [address] [place] Anion gap [Moles/Vol] 16 mmol/L High 8-15 [facility] Comment on above: Order Comment: Speci men Type: BLOOD SPECIMENOrdering Facility: [facility] Address: [address] [place] [address] Performed By: #### 2 532-0, 37301-1 ####[facility] MANJULAAPOLINAR [id number] [place] [address] [place] AST [Catalytic activity/Vol] 17 U/L Normal 14-40 [facility] Comment on above: Order Comment: Speci men Type: BLOOD SPECIMENOrdering Facility: [facility] Address: [address] [place] [address] Performed By: #### 2 532-0, 81651-1 ####[facility] MARIA ESTHER MANJULASUMIDAISYA [id number] [place] [address] [place] Bilirubin [Mass/Vol] 0.5 mg/dL Normal 0.2-1.3 [facility] Comment on above: Order Comment: Speci men Type: BLOOD SPECIMENOrdering Facility: [facility] Address: [address] [place] [address] Performed By: #### 2 532-0, 36045-6 ####[facility]CL[facility] [id number] [place] [address] [place] Calcium [Mass/Vol] 9.9 mg/dL Normal 8.5-10.2 [facility] Comment on above: Order Comment: Speci men Type: BLOOD SPECIMENOrdering Facility: [facility] Address: [address] [place] [address] Performed By: #### 2 532-0, 30222-9 ####[facility] MILLWNCLIA [id number] [place] [address] [place] Chloride [Moles/Vol] 98 mmol/L Normal 98-107 [facility] Comment on above: Order Comment: Speci men Type: BLOOD SPECIMENOrdering Facility: [facility] Address: [address] [place] [address] Performed By: #### 2 532-0, 71403-6 ####[facility] [id number] [place] [address] [place] CO2 [Moles/Vol] 27 mmol/L Normal 22-30 [facility] Comment on above: Order Comment: Speci men Type: BLOOD SPECIMENOrdering Facility: [facility] Address: [address] [place] [address] Performed By: #### 2 532-0, 46270-3 ####[facility]CL[facility] [id number] [place] [address] [place] Creatinine [Mass/Vol] 4.13 mg/dL High 0.73-1.22 [facility] Comment on above: Order Comment: Speci men Type: BLOOD SPECIMENOrdering Facility: [facility] Address: [address] [place] [address] Performed By: #### 2 532-0, 86640-9 ####[facility] [id number] [place] [address] [place] Creatinine and Glomerular filtration rate.predicted panel (S/P/Bld) 15 mL/min/1.73m??? Low >=60 [facility] Comment on above: Order Comment: Speci men Type: BLOOD SPECIMENOrdering Facility: [facility] Address: [address] [place] [address] Result Comment: Radha mated Glomerular Filtration Rate [...] actual GFR. Performed By: #### 2 532-0, 63678-2 ####[facility]ITAL[facility] [id number] [place] [address] [place] Glucose [Mass/Vol] 134 mg/dL High 74-99 [facility] Comment on above: Order Comment: Jasmina allen Type: BLOOD SPECIMENOrdering Facility: [facility] Address: [address] [place] [address] Result Comment: The [employer] Diabetes Association (ADA) provides guidance for cutoff [...] Standards of Medical Care in Diabetes 2016, [employer]. Diabetes Care. 2016.39(Suppl 1). Performed By: #### 2 532-0, 80557-4 ####[facility] [id number] [place] [address] [place] Potassium [Moles/Vol] 3.7 mmol/L Normal 3.7-5.1 [facility] Comment on above: Order Comment: Jasmina allen Type: BLOOD SPECIMENOrdering Facility: [facility] Address: [address] [place] [address] Performed By: #### 2 532-0, 20972-2 ####[facility]ILDRENSARAHI [id number] [place] [address] [place] Protein [Mass/Vol] 6.1 g/dL Low 6.3-8.0 [facility] Comment on above: Order Comment: Speci men Type: BLOOD SPECIMENOrdering Facility: [facility] Address: [address] [place] [address] Performed By: #### 2 532-0, 37139-7 ####[facility] [id number] [place] [address] [place] Sodium [Moles/Vol] 141 mmol/L Normal 136-144 [facility] Comment on above: Order Comment: Speci men Type: BLOOD SPECIMENOrdering Facility: [facility] Address: [address] [place] [address] Performed By: #### 2 532-0, 03669-6 ####[facility] [id number] [address] STATES [facility] Urea nitrogen [Mass/Vol] 38 mg/dL High 9-24 [facility] Comment on above: Order Comment: Speci men Type: BLOOD SPECIMENOrdering Facility: [facility] Address: [address] [place] [address] Performed By: #### 2 532-0, 56558-2 ####[facility] HOSPITALLIA [id number] [address] [place] IMMUNOFIXATION SCREEN, SERUM on 03-18-2025 MPA RESULT No M protein is identified. Normal No M protein is identified. [facility] Comment on above: Order Comment: Speci men Type: BLOOD SPECIMENOrdering Facility: [facility] Address: [address] [place] [address] Performed By: #### I [facility] ####[facility]CL[facility] [id number] [place] [address] [place] STAFF REVIEW (MPA) Reviewed by Devora Cifuentes M.D., Ph.D Normal [facility] Comment on above: Order Comment: Speci men Type: BLOOD SPECIMENOrdering Facility: [facility] Address: [address] [place] [address] Performed By: #### I FES ####[facility] LABCL[facility] [id number] [place] [address] [place] IMMUNOGLOBULINS,IGG,IGA,IGMo n 03-18-2025 IgA [Mass/Vol] 16 mg/dL Low 70-400 [facility] Comment on above: Order Comment: Speci men Type: BLOOD SPECIMENOrdering Facility: [facility] Address: [address] [place] [address] Performed By: #### S ERIMM ####[facility] LABCL[facility] [id number] [place] [address] [place] IgG [Mass/Vol] 262 mg/dL Low 700-1600 [facility] Comment on above: Order Comment: Speci men Type: BLOOD SPECIMENOrdering Facility: [facility] Address: [address] [place] [address] Performed By: #### S ERIMM ####[facility] LABCL[facility] [id number] [place] [address] [place] IgM [Mass/Vol] 31 mg/dL Low 40-230 [facility] Comment on above: Order Comment: Speci men Type: BLOOD SPECIMENOrdering Facility: [facility] Address: [address] [place] [address] Performed By: #### S ERIMM ####[facility] LABCL[facility] [id number] [place] [address] [place] KAPPA/EMERY,FREE,SERon 2024 Immunoglobulin light chains.kappa.free (S) [Mass/Vol] 24.3 mg/L High 3.3-19.4 [facility] Comment on above: Order Comment: Speci men Type: BLOOD SPECIMENOrdering Facility: [facility] Address: [address] [place] [address] Result Comment: Rare ly, increased serum free light chains levels may not be detected or accurately quantified due to prozone phenomenon or in high viscosity samples using this immunoturbidimetric assay. Correlation with other laboratory results and clinical findings is recommended.The [place] Free Light Chain was performed using the [employer] immunoturbidimetric method. Result obtained with different assay methods or kits cannot be used interchangeably. Performed By: #### K LFRS ####[facility] LABCL[facility] [id number] [place] [address] [place] Immunoglobulin light chains.kappa/Immunoglob ulin light chains.lambda (S) [Mass ratio] 1.53 Normal 0.26-1.65 [facility] Comment on above: Order Comment: Speci men Type: BLOOD SPECIMENOrdering Facility: [facility] Address: [address] [place] [address] Performed By: #### K LFRS ####[facility] LABCL[facility] [id number] [place] [address] [place] Immunoglobulin light chains.lambda.free [Mass/Vol] 15.9 mg/L Normal 5.7-26.3 [facility] Comment on above: Order Comment: Speci men Type: BLOOD SPECIMENOrdering Facility: [facility] Address: [address] [place] [address] Result Comment: Rare ly, increased serum free [...] used interchangeably. Performed By: #### K LFRS ####[facility] LABCL[facility] [id number] [place] [address] [place] L[facility] 03-18-2025 LDH [Catalytic activity/Vol] 224 U/L Normal 135-225 [facility] Comment on above: Order Comment: Speci men Type: BLOOD SPECIMENOrdering Facility: [facility] Address: [address] [place] [address] Performed By: #### 2 532-0, 86573-0 ####[facility] MARIA ESTHER MANJULAINDIANA UNIV[facility] METHODIST HOSPITALPASCUAL [id number] [place] [address] [place] PROTEIN ELECTROPHORESIS SERU M (P)on 03-18-2025 Albumin [Mass/Vol] 4.21 g/dL Normal 3.43-5.41 [facility] Comment on above: Order Comment: Speci men Type: BLOOD SPECIMENOrdering Facility: [facility] Address: [address] [place] [address] Performed By: #### L [id number] ####[facility] [id number] [place] [address] [place] Alpha 1 globulin Elph [Mass/Vol] 0.30 g/dL Normal 0.18-0.43 [facility] Comment on above: Order Comment: Speci men Type: BLOOD SPECIMENOrdering Facility: [facility] Address: [address] [place] [address] Performed By: #### L [id number] ####[facility] [id number] [place] [address] [place] Alpha 2 globulin Elph [Mass/Vol] 0.58 g/dL Normal 0.42-0.98 [facility] Comment on above: Order Comment: Speci men Type: BLOOD SPECIMENOrdering Facility: [facility] Address: [address] [place] [address] Performed By: #### L [id number] ####[facility] [id number] [place] [address] [place] Beta globulin Elph [Mass/Vol] 0.49 g/dL Low 0.61-1.17 [facility] Comment on above: Order Comment: Speci men Type: BLOOD SPECIMENOrdering Facility: [facility] Address: [address] [place] [address] Performed By: #### L [id number] ####[facility] [id number] [place] [address] [place] Gamma globulin Elph [Mass/Vol] 0.23 g/dL Low 0.53-1.51 [facility] Comment on above: Order Comment: Speci men Type: BLOOD SPECIMENOrdering Facility: [facility] Address: [address] [place] [address] Performed By: #### L [id number] ####[facility] [id number] [place] [address] [place] INTERPRETATION COMMENT FOR PROTEIN ELECTROPHORESIS Hypogammaglobulinemia is present, which can be seen in the setting of monoclonal gammopathy. If clinically indicated, monoclonal protein analysis and serum free light chain analysis are suggested to evaluate further for monoclonal gammopathy. Normal [facility] Comment on above: Order Comment: Speci men Type: BLOOD SPECIMENOrdering Facility: [facility] Address: [address] [place] [address] Performed By: #### L [id number] ####[facility] CENTERIA [id number] [address] STATES [facility] M-PROTEIN LOCATION Normal [facility] Comment on above: Order Comment: Speci men Type: BLOOD SPECIMENOrdering Facility: [facility] Address: [address] [place] [address] Result Comment: Not Applicable. Performed By: #### L [id number] ####[facility] LAB[facility] [id number] [place] [id number] [place] Protein Fractions [Interp] No definitive M protein is identified on protein electrophoresis. Normal No definitive M protein is identified on protein electrophores is. [facility] Comment on above: Order Comment: Speci men Type: BLOOD SPECIMENOrdering Facility: [facility] Address: [address] [place] [address] Performed By: #### L [id number] ####[facility] [id number] [place] [address] [place] Protein.monoclonal Elph [Mass/Vol] 0.00 g/dL Normal <=0.00 [facility] Comment on above: Order Comment: Speci men Type: BLOOD SPECIMENOrdering Facility: [facility] Address: [address] [place] [address] Performed By: #### L [id number] ####[facility] [id number] [place] [address] [place] SPE STAFF REVIEW Reviewed by Devora Cifuentes M.D., Ph.D Normal [facility] Comment on above: Order Comment: Speci men Type: BLOOD SPECIMENOrdering Facility: [facility] Address: [address] [place] [address] Performed By: #### L [id number] ####[facility] CENTERIA [id number] [place] [address] [place] Prot SerPl-mCncon 03-18-2025 Protein [Mass/Vol] 5.8 g/dL Low 6.3-8.0 [facility] Comment on above: Order Comment: Speci men Type: BLOOD SPECIMENOrdering Facility: [facility] Address: [address] [place] [address] Performed By: #### 2 885-2, 1951-09 ####[facility] [id number] [place] [id number] [place] CNOVSPon 02-25-2025 CNOVSP Normal [facility] B2 Microglob SerPl-mCncon Jtnc-0-Bysbnatyzgwxc [Mass/Vol] 15.1 ug/mL High <3.1 [facility] Comment on above: Order Comment: Speci men Type: BLOOD SPECIMENOrdering Facility: [facility] Address: [address] [place] [address] Result Comment: Beta -2 Microglobulin test is performed using the [employer] immunoturbidimetric method. Results obtained with different methods or kits cannot be used interchangeably. Performed By: #### 2 885-2, 1952- ####[facility] [id number] [place] [address] [place] CBC W Auto Differential pane l (Bld)on 02-18-2025 Basophils (Bld) [#/Vol] 0.07 10*3/uL Normal <0.11 [facility] Comment on above: Order Comment: Speci men Type: BLOOD SPECIMENOrdering Facility: [facility] Address: [address] [place] [address] Performed By: #### 5 7021-8 ####[facility] [id number] [place] [address] [place] Basophils/100 WBC (Bld) 1.9 % Normal [facility] Comment on above: Order Comment: Speci men Type: BLOOD SPECIMENOrdering Facility: [facility] Address: [address] [place] [address] Performed By: #### 5 7021-8 ####[facility] [id number] [place] [address] [place] Differential cell count method Nom (Bld) Auto Normal [facility] Comment on above: Order Comment: Speci men Type: BLOOD SPECIMENOrdering Facility: [facility] Address: [address] [place] [address] Performed By: #### 5 7021-8 ####[facility] [id number] [place] [address] [place] Eosinophils (Bld) [#/Vol] 0.12 10*3/uL Normal <0.46 [facility] Comment on above: Order Comment: Speci men Type: BLOOD SPECIMENOrdering Facility: [facility] Address: [address] [place] [address] Performed By: #### 5 7021-8 ####[facility] MILLWNCLIA [id number] [place] [address] [place] Eosinophils/100 WBC (Bld) 3.3 % Normal [facility] Comment on above: Order Comment: Speci men Type: BLOOD SPECIMENOrdering Facility: [facility] Address: [address] [place] [address] Performed By: #### 5 7021-8 ####[facility] CHILDRENFRANCISCOLIA [id number] [place] [address] [place] Erythrocyte distribution width (RBC) [Ratio] 14.6 % Normal 11.5-15.0 [facility] Comment on above: Order Comment: Speci men Type: BLOOD SPECIMENOrdering Facility: [facility] Address: [address] [place] [address] Performed By: #### 5 7021-8 ####[facility] HOSPITALLIA [id number] [place] [address] [place] Hematocrit (Bld) [Volume fraction] 31.7 % Low 39.0-51.0 [facility] Comment on above: Order Comment: Speci men Type: BLOOD SPECIMENOrdering Facility: [facility] Address: [address] [place] [address] Performed By: #### 5 7021-8 ####[facility] HOSPITALLIA [id number] [place] [address] [place] Hemoglobin (Bld) [Mass/Vol] 10.4 g/dL Low 13.0-17.0 [facility] Comment on above: Order Comment: Speci men Type: BLOOD SPECIMENOrdering Facility: [facility] Address: [address] [place] [address] Performed By: #### 5 7021-8 ####[facility]ITALL[facility] [id number] [place] [address] [place] Immature granulocytes (Bld) [#/Vol] 10*3/uL Normal <0.10 [facility] Comment on above: Order Comment: Speci men Type: BLOOD SPECIMENOrdering Facility: [facility] Address: [address] [place] [address] Performed By: #### 5 7021-8 ####[facility] [id number] [place] [address] [place] Immature granulocytes/100 WBC (Bld) 0.6 % Normal [facility] Comment on above: Order Comment: Speci men Type: BLOOD SPECIMENOrdering Facility: [facility] Address: [address] [place] [address] Performed By: #### 5 7021-8 ####[facility]DR[facility]CL[facility] [id number] [place] [address] [place] Lymphocytes (Bld) [#/Vol] 0.43 10*3/uL Low 1.00-4.00 [facility] Comment on above: Order Comment: Speci men Type: BLOOD SPECIMENOrdering Facility: [facility] Address: [address] [place] [address] Performed By: #### 5 7021-8 ####[facility] [id number] [place] [address] [place] Lymphocytes/100 WBC (Bld) 11.8 % Normal [facility] Comment on above: Order Comment: Speci men Type: BLOOD SPECIMENOrdering Facility: [facility] Address: [address] [place] [address] Performed By: #### 5 7021-8 ####[facility] [id number] [place] [address] [place] MCH (RBC) [Entitic mass] 34.8 pg High 26.0-34.0 [facility] Comment on above: Order Comment: Speci men Type: BLOOD SPECIMENOrdering Facility: [facility] Address: [address] [place] [address] Performed By: #### 5 7021-8 ####[facility] BELLA [id number] [place] [address] [place] MCHC (RBC) [Mass/Vol] 32.8 g/dL Normal 30.5-36.0 [facility] Comment on above: Order Comment: Speci men Type: BLOOD SPECIMENOrdering Facility: [facility] Address: [address] [place], [place] [address] Performed By: #### 5 7021-8 ####[facility] [id number] [place] [address] [place] MCV (RBC) [Entitic vol] 106.0 fL High 80.0-100.0 C [facility] Comment on above: Order Comment: Speci men Type: BLOOD SPECIMENOrdering Facility: [facility] Address: [address] [place] [address] Performed By: #### 5 7021-8 ####[facility] [id number] [place] [address] [place] Monocytes (Bld) [#/Vol] 0.60 10*3/uL Normal <0.87 [facility] Comment on above: Order Comment: Speci men Type: BLOOD SPECIMENOrdering Facility: [facility] Address: [address] [place] [address] Performed By: #### 5 7021-8 ####[facility]DRENFRANCISCOLIA [id number] [place] [address] [place] Monocytes/100 WBC (Bld) 16.5 % Normal C [facility] Comment on above: Order Comment: Speci men Type: BLOOD SPECIMENOrdering Facility: [facility] Address: [address] [place] [address] Performed By: #### 5 7021-8 ####[facility] MILLWNCLIA [id number] [place] [address] [place] Neutrophils (Bld) [#/Vol] 2.39 10*3/uL Normal 1.45-7.50 [facility] Comment on above: Order Comment: Speci men Type: BLOOD SPECIMENOrdering Facility: [facility] Address: [address] [place] [address] Performed By: #### 5 7021-8 ####[facility] HOSPITALLIA [id number] [place] [address] [place] Neutrophils/100 WBC (Bld) 65.9 % Normal [facility] Comment on above: Order Comment: Speci men Type: BLOOD SPECIMENOrdering Facility: [facility] Address: [address] [place] [address] Performed By: #### 5 7021-8 ####[facility] [id number] [place] [address] [place] Nucleated RBC (Bld) [#/Vol] 10*3/uL Normal <0.01 [facility] Comment on above: Order Comment: Speci men Type: BLOOD SPECIMENOrdering Facility: [facility] Address: [address] [place] [address] Performed By: #### 5 7021-8 ####[facility] HOSPITALLIA [id number] [place] [address] [place] Nucleated RBC/100 WBC (Bld) [Ratio] 0.0 /100 WBC Normal [facility] Comment on above: Order Comment: Speci men Type: BLOOD SPECIMENOrdering Facility: [facility] Address: [address] [place] [address] Performed By: #### 5 7021-8 ####[facility] [id number] [place] [id number] [place] Platelet mean volume (Bld) [Entitic vol] 10.3 fL Normal 9.0-12.7 [facility] Comment on above: Order Comment: Speci men Type: BLOOD SPECIMENOrdering Facility: [facility] Address: [address] [place] [address] Performed By: #### 5 7021-8 ####[facility]DRENNCCARMELINA [id number] [place] [address] [place] Platelets (Bld) [#/Vol] 154 10*3/uL Normal 150-400 [facility] Comment on above: Order Comment: Speci men Type: BLOOD SPECIMENOrdering Facility: [facility] Address: [address] [place] [address] Performed By: #### 5 7021-8 ####[facility] [id number] [place] [address] [place] RBC (Bld) [#/Vol] 2.99 10*6/uL Low 4.20-6.00 [facility] Comment on above: Order Comment: Speci men Type: BLOOD SPECIMENOrdering Facility: [facility] Address: [address] [place] [address] Performed By: #### 5 7021-8 ####[facility] [id number] [place] [address] [place] WBC (Bld) [#/Vol] 3.63 10*3/uL Low 3.70-11.00 [facility] Comment on above: Order Comment: Speci men Type: BLOOD SPECIMENOrdering Facility: [facility] Address: [address] [place] [address] Performed By: #### 5 7021-8 ####[facility] [id number] [place] [address] [place] Comprehensive metabolic 2000 panelon 02-18-2025 Albumin [Mass/Vol] 4.4 g/dL Normal 3.9-4.9 [facility] Comment on above: Order Comment: Speci men Type: BLOOD SPECIMENOrdering Facility: [facility] Address: [address] [place] [address] Performed By: #### 2 532-0, 80545-3 ####[facility] [id number] [place] [address] [place] ALP [Catalytic activity/Vol] 121 U/L High 38-113 [facility] Comment on above: Order Comment: Speci men Type: BLOOD SPECIMENOrdering Facility: [facility] Address: [address] [place] [address] Performed By: #### 2 532-0, 67560-5 ####[facility] [id number] [place] [address] [place] ALT [Catalytic activity/Vol] 12 U/L Normal 10-54 [facility] Comment on above: Order Comment: Speci men Type: BLOOD SPECIMENOrdering Facility: [facility] Address: [address] [place] [address] Performed By: #### 2 532-0, 64144-3 ####[facility] [id number] [place] [address] [place] Anion gap [Moles/Vol] 15 mmol/L Normal 8-15 [facility] Comment on above: Order Comment: Speci men Type: BLOOD SPECIMENOrdering Facility: [facility] Address: [address] [place] [address] Performed By: #### 2 532-0, 50110-7 ####[facility]DRENNCA [id number] [place] [address] [place] AST [Catalytic activity/Vol] 18 U/L Normal 14-40 [facility] Comment on above: Order Comment: Speci men Type: BLOOD SPECIMENOrdering Facility: [facility] Address: [address] [place] [address] Performed By: #### 2 532-0, 10694-7 ####[facility] MANJULAAPOLINAR [id number] [place] [address] [place] Bilirubin [Mass/Vol] 0.4 mg/dL Normal 0.2-1.3 [facility] Comment on above: Order Comment: Speci men Type: BLOOD SPECIMENOrdering Facility: [facility] Address: [address] [place] [address] Performed By: #### 2 532-0, 25870-3 ####[facility] [id number] [place] [address] [place] Calcium [Mass/Vol] 9.8 mg/dL Normal 8.5-10.2 [facility] Comment on above: Order Comment: Speci men Type: BLOOD SPECIMENOrdering Facility: [facility] Address: [address] [place] [address] Performed By: #### 2 532-0, 65336-8 ####[facility] [id number] [place] [address] [place] Chloride [Moles/Vol] 98 mmol/L Normal 98-107 [facility] Comment on above: Order Comment: Speci men Type: BLOOD SPECIMENOrdering Facility: [facility] Address: [address] [place] [address] Performed By: #### 2 532-0, 40802-7 ####[facility] NASSAUAPOLINAR [id number] [place] [address] [place] CO2 [Moles/Vol] 26 mmol/L Normal 22-30 [facility] Comment on above: Order Comment: Speci men Type: BLOOD SPECIMENOrdering Facility: [facility] Address: [address] [place] [address] Performed By: #### 2 532-0, 47080-0 ####[facility] HOSPITALWNCLI [id number] [place] [address] [place] Creatinine [Mass/Vol] 4.59 mg/dL High 0.73-1.22 [facility] Comment on above: Order Comment: Speci men Type: BLOOD SPECIMENOrdering Facility: [facility] Address: [address] [place] [address] Performed By: #### 2 532-0, 44355-5 ####[facility] [id number] [place] [address] [place] Creatinine and Glomerular filtration rate.predicted panel (S/P/Bld) 13 mL/min/1.73m??? Low >=60 [facility] Comment on above: Order Comment: Jasmina allen Type: BLOOD SPECIMENOrdering Facility: [facility] Address: [address] [place] [address] Result Comment: Radha mated Glomerular Filtration Rate [...] actual GFR. Performed By: #### 2 532-0, 85293-9 ####[facility] [id number] [place] [address] [place] Glucose [Mass/Vol] 135 mg/dL High 74-99 [facility] Comment on above: Order Comment: Zairai tiffany Type: BLOOD SPECIMENOrdering Facility: [facility] Address: [address] [place] [address] Result Comment: The [employer] Diabetes Association (ADA) provides guidance for cutoff [...] Standards of Medical Care in Diabetes 2016, Japanese Diabetes Association. Diabetes Care. 2016.39(Suppl 1). Performed By: #### 2 532-0, 48934-7 ####[facility] MILLTOWNCLIA [id number] [place] [address] [place] Potassium [Moles/Vol] 3.7 mmol/L Normal 3.7-5.1 [facility] Comment on above: Order Comment: Speci men Type: BLOOD SPECIMENOrdering Facility: [facility] Address: [address] [place] [address] Performed By: #### 2 532-0, 89758-5 ####[facility] HOSPITALWFRANCISCOLIA [id number] [place] [address] [place] Protein [Mass/Vol] 6.2 g/dL Low 6.3-8.0 [facility] Comment on above: Order Comment: Speci men Type: BLOOD SPECIMENOrdering Facility: [facility] Address: [address] [place] [address] Performed By: #### 2 532-0, 72362-8 ####[facility] HOSPITALWNCLIA [id number] [place] [address] [place] Sodium [Moles/Vol] 139 mmol/L Normal 136-144 [facility] Comment on above: Order Comment: Speci men Type: BLOOD SPECIMENOrdering Facility: [facility] Address: [address] [place] [address] Performed By: #### 2 532-0, 13658-8 ####[facility] MILLSUMIWNCLIA [id number] [place] [address] [place] Urea nitrogen [Mass/Vol] 47 mg/dL High 9-24 [facility] Comment on above: Order Comment: Speci men Type: BLOOD SPECIMENOrdering Facility: [facility] Address: [address] [place] [address] Performed By: #### 2 532-0, 57030-8 ####[facility] [id number] [address] [place] IMMUNOFIXATION SCREEN, SERUM on 02-18-2025 INTERPRETATION (MPA) Normal [facility] Comment on above: Order Comment: Speci men Type: BLOOD SPECIMENOrdering Facility: [facility] Address: [address] [place] [address] Performed By: #### I FESC ####[facility] [id number] [place] [address] [place] MPA RESULT A poorly defined reg ion of restricted mobility is present that may represent an M protein. Abnormal No M protein is identified. [facility] Comment on above: Order Comment: Speci men Type: BLOOD SPECIMENOrdering Facility: [facility] Address: [address] [place] [address] Performed By: #### I FESC ####[facility] [id number] [address] [facility] STAFF REVIEW (MPA) Reviewed by Andi Mercedes MD, Ph.D ([id number]) Normal [facility] Comment on above: Order Comment: Speci men Type: BLOOD SPECIMENOrdering Facility: [facility] Address: [address] [place] [address] Performed By: #### I FESC ####[facility] [id number] [place] [id number] [place] IMMUNOGLOBULINS,IGG,IGA,IGMo n 02-18-2025 IgA [Mass/Vol] 16 mg/dL Low 70-400 [facility] Comment on above: Order Comment: Speci men Type: BLOOD SPECIMENOrdering Facility: [facility] Address: [address] [place] [address] Performed By: #### S ERIMM ####[facility] [id number] [place] [address] [place] IgG [Mass/Vol] 273 mg/dL Low 700-1600 [facility] Comment on above: Order Comment: Speci men Type: BLOOD SPECIMENOrdering Facility: [facility] Address: [address] [place] [address] Performed By: #### S ERIMM ####[facility] [id number] [place] [address] [place] IgM [Mass/Vol] 33 mg/dL Low 40-230 [facility] Comment on above: Order Comment: Speci men Type: BLOOD SPECIMENOrdering Facility: [facility] Address: [address] [place] [address] Performed By: #### S ERIMM ####[facility] [id number] [place] [address] [place] KAPPA/EMERY,FREE,SERon 2024 Immunoglobulin light chains.kappa.free (S) [Mass/Vol] 25.9 mg/L High 3.3-19.4 [facility] Comment on above: Order Comment: Speci men Type: BLOOD SPECIMENOrdering Facility: [facility] Address: [address] [place] [address] Result Comment: Rare ly, increased serum free light chains levels may not be detected or accurately quantified due to prozone phenomenon or in high viscosity samples using this immunoturbidimetric assay. Correlation with other laboratory results and clinical findings is recommended.The [place] Free Light Chain was performed using the Binding Site Optilite immunoturbidimetric method. Result obtained with different assay methods or kits cannot be used interchangeably. Performed By: #### K LFRS ####[facility] [id number] [address] [place] Immunoglobulin light chains.kappa/Immunoglob ulin light chains.lambda (S) [Mass ratio] 1.69 High 0.26-1.65 [facility] Comment on above: Order Comment: Speci men Type: BLOOD SPECIMENOrdering Facility: [facility] Address: [address] [place] [address] Performed By: #### K LFRS ####[facility] [id number] [place] [address] [place] Immunoglobulin light chains.lambda.free [Mass/Vol] 15.3 mg/L Normal 5.7-26.3 [facility] Comment on above: Order Comment: Zairai tiffany Type: BLOOD SPECIMENOrdering Facility: [facility] Address: [address] [place] [address] Result Comment: Rare ly, increased serum free [...] used interchangeably. Performed By: #### K LFRS ####[facility] [id number] [place] [address] [place] L[facility] 02-18-2025 LDH [Catalytic activity/Vol] 234 U/L High 135-225 [facility] Comment on above: Order Comment: Speci men Type: BLOOD SPECIMENOrdering Facility: [facility] Address: [address] [place] [address] Result Comment: Hemo lysis present. The origin of the hemolysis, in vitro versus an in vivo hemolytic process, cannot be distinguished via this assay alone. In vitro hemolysis may lead to non-physiological (spurious) elevation in lactate dehydrogenase (LDH) results. Theresult should be interpreted in context of the clinical setting and other test results. Suggest reorder as clinically indicated. Performed By: #### 2 532-0, 99987-7 ####[facility] [id number] [place] [address] [place] PROTEIN ELECTROPHORESIS SERU M (P)on 02-18-2025 Albumin [Mass/Vol] 4.15 g/dL Normal 3.43-5.41 [facility] Comment on above: Order Comment: Speci men Type: BLOOD SPECIMENOrdering Facility: [facility] Address: [address] [place] [address] Performed By: #### L [id number] ####[facility] [id number] [place] [address] [place] Alpha 1 globulin Elph [Mass/Vol] 0.29 g/dL Normal 0.18-0.43 [facility] Comment on above: Order Comment: Speci men Type: BLOOD SPECIMENOrdering Facility: [facility] Address: [address] [place] [address] Performed By: #### L [id number] ####[facility] [id number] [place] [id number] [place] Alpha 2 globulin Elph [Mass/Vol] 0.63 g/dL Normal 0.42-0.98 [facility] Comment on above: Order Comment: Speci men Type: BLOOD SPECIMENOrdering Facility: [facility] Address: [address] [place] [address] Performed By: #### L [id number] ####[facility] [id number] [place] [id number] [place] Beta globulin Elph [Mass/Vol] 0.50 g/dL Low 0.61-1.17 [facility] Comment on above: Order Comment: Speci men Type: BLOOD SPECIMENOrdering Facility: [facility] Address: [address] [place] [address] Performed By: #### L [id number] ####[facility] [id number] [place] [address] [place] Gamma globulin Elph [Mass/Vol] 0.23 g/dL Low 0.53-1.51 [facility] Comment on above: Order Comment: Jasmina allen Type: BLOOD SPECIMENOrdering Facility: [facility] Address: [address] [place] [address] Performed By: #### L [id number] ####[facility] [id number] [address] [facility] INTERPRETATION COMMENT FOR PROTEIN ELECTROPHORESIS Hypogammaglobulinemia is present, which can be seen in the setting of monoclonal gammopathy. If clinically indicated, monoclonal protein analysis and serum free light chain analysis are suggested to evaluate further for monoclonal gammopathy. Normal [facility] Comment on above: Order Comment: Jasmina allen Type: BLOOD SPECIMENOrdering Facility: [facility] Address: [address] [place] [address] Performed By: #### L [id number] ####[facility] [id number] [address] M-PROTEIN LOCATION Normal [facility] Comment on above: Order Comment: Jasmina allen Type: BLOOD SPECIMENOrdering Facility: [facility] Address: [address] [place] [address] Result Comment: Not Applicable. Performed By: #### L [id number] ####[facility] [id number] [place] [address] [place] Protein Fractions [Interp] No definitive M protein is identified on protein electrophoresis. Normal No definitive M protein is identified on protein electrophores is. [facility] Comment on above: Order Comment: Jasmina allen Type: BLOOD SPECIMENOrdering Facility: [facility] Address: [address] [place] [address] Performed By: #### L [id number] ####[facility] [id number] [address] OF [place] Protein.monoclonal Elph [Mass/Vol] 0.00 g/dL Normal <=0.00 [facility] Comment on above: Order Comment: Speci men Type: BLOOD SPECIMENOrdering Facility: [facility] Address: [address] [place] [address] Performed By: #### L [id number] ####[facility] [id number] [place] [id number] [place] SPE STAFF REVIEW Reviewed by Andi Mercedes MD, Ph.D ([id number]) Normal [facility] Comment on above: Order Comment: Speci men Type: BLOOD SPECIMENOrdering Facility: [facility] Address: [address] [place] [address] Performed By: #### L [id number] ####[facility] [id number] [place] [id number] [place] Prot SerPl-mCncon 02-18-2025 Protein [Mass/Vol] 5.8 g/dL Low 6.3-8.0 [facility] Comment on above: Order Comment: Speci men Type: BLOOD SPECIMENOrdering Facility: [facility] Address: [address] [place] [address] Performed By: #### 2 885-2, 1951-09 ####[facility] [id number] [place] [id number] [place] Surgery Visit Reporton 02-13 Surgery Visit Report [facility] [address] [place] [address]. [address] [place] [address] OFFICE VISIT Date of Service: 02/13/25 MR#: [id number] Acct: [id number] Name: EDGAR HENDERSON Rep #: [id number] 60 : 1950 Provider: PEGGY Hall Age/Sex: 74/M Location: [facility] Status: Signed Intake Vital Signs 01/14/25 09:55 [...] Hemodialysis access, AV graft Z99.2 [facility] Medical History Wears glasses Cancer Depression Bruising [...] CC: Dr. Jose Miguel Herbert MD Normal [facility] CNOVon 02-04-2025 CNOV Normal [facility] Lipid 1996 panelon 5 Cholesterol [Mass/Vol] 173 mg/dL Normal <200 [facility] Comment on above: Order Comment: Speci men Type: BLOOD SPECIMENOrdering Facility: [facility] Address: [address] [place] [address] Result Comment: <200 mg/dL, Desirable 200-239 mg/dL, Borderline high>239 mg/dL, High Performed By: #### 2 4331-1 ####[facility] [id number] [address] [id number] [place] [address] [place] Cholesterol in HDL [Mass/Vol] 66 mg/dL Normal >39 [facility] Comment on above: Order Comment: Speci men Type: BLOOD SPECIMENOrdering Facility: [facility] Address: [address] [place] [address] Result Comment: 40-5 9 mg/dL, Acceptable>59 mg/dL, High: Negative risk factor for coronary heart disease<40 mg/dL, Low: Positive risk factor for coronary heart disease Performed By: #### 2 4331-1 ####[facility] [id number] [id number] [place] [address] [place] Cholesterol in LDL [Mass/Vol] 92 mg/dL Normal <100 [facility] Comment on above: Order Comment: Speci men Type: BLOOD SPECIMENOrdering Facility: [facility] Address: [address] [place] [address] Result Comment: <100 mg/dL, Optimal 100-129 mg/dL, Near optimal/above optimal 130-159 mg/dL, Borderline high 160-189 mg/dL, High>189 mg/dL, Very highSecondary prevention optimal LDL Cholesterol levels are recommended to be <70 mg/dLLDL cholesterol is calculated using the Mike-NIH equation. Performed By: #### 2 4331-1 ####[facility] [id number] [address] [id number] [place] [address] [place] Cholesterol in LDL/Cholesterol in HDL [Mass ratio] 1.39 {ratio} Normal <2.54 [facility] Comment on above: Order Comment: Speci men Type: BLOOD SPECIMENOrdering Facility: [facility] Address: [address] [place] [address] Result Comment: Jason jones:1. National Cholesterol Education Program ATP III Guideline At-A-Glance Quick Desk Reference: National Heart, Lung, and Blood [place]. National Institutes of Health. 2001: NIH Publication No. 01-3305.2. An International Atherosclerosis Society position paper: global recommendations for the management of dyslipidemia: executive summary, Atherosclerosis. 2014: 232(2):410-413. Performed By: #### 2 4331-1 ####[facility] [id number] [place] [id number] [place] [address] [facility] Cholesterol in VLDL [Mass/Vol] 12 mg/dL Normal <30 [facility] Comment on above: Order Comment: Jasmina allen Type: BLOOD SPECIMENOrdering Facility: [facility] Address: [address] [place] [address] Performed By: #### 2 4331-1 ####[facility] [id number] [place] [id number] [place] [address] [facility] Cholesterol non HDL [Mass/Vol] 107 mg/dL Normal <130 [facility] Comment on above: Order Comment: Jasmina allen Type: BLOOD SPECIMENOrdering Facility: [facility] Address: [address] [place] [address] Result Comment: <130 mg/dL, Optimal 130-159 mg/dL, Near optimal/above optimal 160-189 mg/dL, Borderline high 190-219 mg/dL, High>219 mg/dL, Very highSecondary prevention optimal non HDL Cholesterol levels are recommended to be <100 mg/dL Performed By: #### 2 4331-1 ####[facility] [id number] [address] [address] [facility] [id number] [place] [address] [place] Cholesterol.total/Oriana sterol in HDL [Mass ratio] 2.62 {ratio} Normal <5.10 [facility] Comment on above: Order Comment: Speci men Type: BLOOD SPECIMENOrdering Facility: [facility] Address: [address] [place] [address] Performed By: #### 2 4331-1 ####[facility] [id number] [id number] [place] [address] [place] FASTING TIME 12 hrs Normal [facility] Comment on above: Order Comment: Speci men Type: BLOOD SPECIMENOrdering Facility: [facility] Address: [address] [place] [address] Performed By: #### 2 4331-1 ####[facility] [id number] [address] [id number] [place] [address] [place] Triglyceride [Mass/Vol] 78 mg/dL Normal <150 C [facility] Comment on above: Order Comment: Speci men Type: BLOOD SPECIMENOrdering Facility: [facility] Address: [address] [place], [place] [address] Result Comment: <150 mg/dL, Normal 150-199 mg/dL, Borderline high 200-499 mg/dL, High>499 mg/dL, Very high Performed By: #### 2 4331-1 ####[facility] [id number] [address] [address] [facility] [id number] [place] [address] [place] Surgery Visit Reporton 01-28 Surgery Visit Report [facility] [address] [place] [address] OFFICE VISIT Date of Service: 01/28/25 MR#: [id number] Acct: [id number] Name: EDGAR HENDERSON Rep #: [id number] : 1950 Provider: PEGGY Hall Age/Sex: 74/M Location: [facility].BVS Status: Signed Intake Vital Signs [...] Hemodialysis access, AV graft Z99.2 [facility] Medical History Wears glasses Cancer Depression Bruising [...] weeks to reassess and clear for use. 01/29/25 2814 Date Shannen WOODS 01/29/25 1650 Cosigner Signature: Date (if applicable) Alvarado Brody MD CC: Normal [facility] CNPNon 01-24-2025 CNPN Normal [facility] B2 Microglob SerPl-mCncon Dfyr-9-Uttmargkrkrwx [Mass/Vol] 16.4 ug/mL High <3.1 [facility] Comment on above: Order Comment: Speci men Type: BLOOD SPECIMENOrdering Facility: [facility] Address: [address] [place] [address] Result Comment: Beta -2 Microglobulin test is performed using the [employer] immunoturbidimetric method. Results obtained with different methods or kits cannot be used interchangeably. Performed By: #### 3 016-3, 2885-2, 1950- ####[facility] [id number] [place] [address] [place] CBC W Auto Differential pane l (Bld)on 01-23-2025 Basophils (Bld) [#/Vol] 0.05 10*3/uL Normal <0.11 [facility] Comment on above: Order Comment: Speci men Type: BLOOD SPECIMENOrdering Facility: [facility] Address: [address] [place] [address] Performed By: #### 5 7021-8 ####[facility] [id number] [place] [address] [place] Basophils/100 WBC (Bld) 1.1 % Normal [facility] Comment on above: Order Comment: Speci men Type: BLOOD SPECIMENOrdering Facility: [facility] Address: [address] [place] [address] Performed By: #### 5 7021-8 ####[facility] [id number] [place] [address] [place] Differential cell count method Nom (Bld) Auto Normal [facility] Comment on above: Order Comment: Speci men Type: BLOOD SPECIMENOrdering Facility: [facility] Address: [address] [place] [address] Performed By: #### 5 7021-8 ####[facility] [id number] [place] [address] [place] Eosinophils (Bld) [#/Vol] 0.16 10*3/uL Normal <0.46 [facility] Comment on above: Order Comment: Speci men Type: BLOOD SPECIMENOrdering Facility: [facility] Address: [address] [place] [address] Performed By: #### 5 7021-8 ####[facility] [id number] [place] [address] [place] Eosinophils/100 WBC (Bld) 3.5 % Normal [facility] Comment on above: Order Comment: Speci men Type: BLOOD SPECIMENOrdering Facility: [facility] Address: [address] [place] [address] Performed By: #### 5 7021-8 ####[facility] [id number] [place] [address] [place] Erythrocyte distribution width (RBC) [Ratio] 15.0 % Normal 11.5-15.0 [facility] Comment on above: Order Comment: Speci men Type: BLOOD SPECIMENOrdering Facility: [facility] Address: [address] [place] [address] Performed By: #### 5 7021-8 ####[facility] [id number] [place] [address] [place] Hematocrit (Bld) [Volume fraction] 29.1 % Low 39.0-51.0 [facility] Comment on above: Order Comment: Speci men Type: BLOOD SPECIMENOrdering Facility: [facility] Address: [address] [place] [address] Performed By: #### 5 7021-8 ####[facility] [id number] [place] [address] [place] Hemoglobin (Bld) [Mass/Vol] 9.6 g/dL Low 13.0-17.0 [facility] Comment on above: Order Comment: Speci men Type: BLOOD SPECIMENOrdering Facility: [facility] Address: [address] [place] [address] Performed By: #### 5 7021-8 ####[facility] H[facility]ITALL[facility] [id number] [place] [address] [place] Immature granulocytes (Bld) [#/Vol] 0.03 10*3/uL Normal <0.10 [facility] Comment on above: Order Comment: Speci men Type: BLOOD SPECIMENOrdering Facility: [facility] Address: [address] [place] [address] Performed By: #### 5 7021-8 ####[facility] [id number] [place] [address] [place] Immature granulocytes/100 WBC (Bld) 0.7 % Normal [facility] Comment on above: Order Comment: Speci men Type: BLOOD SPECIMENOrdering Facility: [facility] Address: [address] [place] [address] Performed By: #### 5 7021-8 ####[facility] [id number] [place] [address] [place] Lymphocytes (Bld) [#/Vol] 0.49 10*3/uL Low 1.00-4.00 [facility] Comment on above: Order Comment: Speci men Type: BLOOD SPECIMENOrdering Facility: [facility] Address: [address] [place] [address] Performed By: #### 5 7021-8 ####[facility] [id number] [place] [address] [place] Lymphocytes/100 WBC (Bld) 10.7 % Normal [facility] Comment on above: Order Comment: Speci men Type: BLOOD SPECIMENOrdering Facility: [facility] Address: [address] [place] [address] Performed By: #### 5 7021-8 ####[facility] [id number] [place] [address] [place] MCH (RBC) [Entitic mass] 34.9 pg High 26.0-34.0 [facility] Comment on above: Order Comment: Speci men Type: BLOOD SPECIMENOrdering Facility: [facility] Address: [address] [place] [address] Performed By: #### 5 7021-8 ####[facility] [id number] [place] [address] [place] MCHC (RBC) [Mass/Vol] 33.0 g/dL Normal 30.5-36.0 [facility] Comment on above: Order Comment: Speci men Type: BLOOD SPECIMENOrdering Facility: [facility] Address: [address] [place] [address] Performed By: #### 5 7021-8 ####[facility] [id number] [place] [address] [place] MCV (RBC) [Entitic vol] 105.8 fL High 80.0-100.0 C [facility] Comment on above: Order Comment: Speci men Type: BLOOD SPECIMENOrdering Facility: [facility] Address: [address] [place] [address] Performed By: #### 5 7021-8 ####[facility] [id number] [place] [address] [place] Monocytes (Bld) [#/Vol] 0.84 10*3/uL Normal <0.87 [facility] Comment on above: Order Comment: Speci men Type: BLOOD SPECIMENOrdering Facility: [facility] Address: [address] [place] [address] Performed By: #### 5 7021-8 ####[facility]ENS[facility] [id number] [place] [address] [place] Monocytes/100 WBC (Bld) 18.3 % Normal [facility] Comment on above: Order Comment: Speci men Type: BLOOD SPECIMENOrdering Facility: [facility] Address: [address] [place] [address] Performed By: #### 5 7021-8 ####[facility] [id number] [place] [address] [place] Neutrophils (Bld) [#/Vol] 3.02 10*3/uL Normal 1.45-7.50 [facility] Comment on above: Order Comment: Speci men Type: BLOOD SPECIMENOrdering Facility: [facility] Address: [address] [place] [address] Performed By: #### 5 7021-8 ####[facility] [id number] [place] [address] [place] Neutrophils/100 WBC (Bld) 65.7 % Normal [facility] Comment on above: Order Comment: Speci men Type: BLOOD SPECIMENOrdering Facility: [facility] Address: [address] [place] [address] Performed By: #### 5 7021-8 ####[facility] [id number] [place] [address] [place] Nucleated RBC (Bld) [#/Vol] 10*3/uL Normal <0.01 [facility] Comment on above: Order Comment: Speci men Type: BLOOD SPECIMENOrdering Facility: [facility] Address: [address] [place] [address] Performed By: #### 5 7021-8 ####[facility] MANJULAROMEROLIA [id number] [place] [address] [place] Nucleated RBC/100 WBC (Bld) [Ratio] 0.0 /100 WBC Normal [facility] Comment on above: Order Comment: Speci men Type: BLOOD SPECIMENOrdering Facility: [facility] Address: [address] [place] [address] Performed By: #### 5 7021-8 ####[facility]DRENDA[facility] [id number] [place] [address] [place] Platelet mean volume (Bld) [Entitic vol] 9.4 fL Normal 9.0-12.7 [facility] Comment on above: Order Comment: Speci men Type: BLOOD SPECIMENOrdering Facility: [facility] Address: [address] [place] [address] Performed By: #### 5 7021-8 ####[facility] [id number] [place] [address] [place] Platelets (Bld) [#/Vol] 171 10*3/uL Normal 150-400 [facility] Comment on above: Order Comment: Speci men Type: BLOOD SPECIMENOrdering Facility: [facility] Address: [address] [place] [address] Performed By: #### 5 7021-8 ####[facility] HOSPITALPASCUALA [id number] [place] [address] [place] RBC (Bld) [#/Vol] 2.75 10*6/uL Low 4.20-6.00 [facility] Comment on above: Order Comment: Speci men Type: BLOOD SPECIMENOrdering Facility: [facility] Address: [address] [place] [address] Performed By: #### 5 7021-8 ####[facility] [id number] [place] [address] [place] WBC (Bld) [#/Vol] 4.59 10*3/uL Normal 3.70-11.00 [facility] Comment on above: Order Comment: Speci men Type: BLOOD SPECIMENOrdering Facility: [facility] Address: [address] [place] [address] Performed By: #### 5 7021-8 ####[facility] MARIA [facility]HER[facility] [id number] [place] [address] [place] HbA1c (Bld)on 01-23-2025 Average glucose Estimated from glycated hemoglobin (Bld) [Mass/Vol] 103 mg/dL Normal [facility] Comment on above: Order Comment: Jasmina allen Type: BLOOD SPECIMENOrdering Facility: [facility] Address: [address] [place] [address] Result Comment: eAG: (Estimated average glucose) is a calculated value from HgbA1c and is business representative of the average blood glucose level in the last 2-3 month period. Performed By: #### 5 5454-3 ####[facility] [id number] [place] [address] [place] [facility] HbA1c (Bld) [Mass fraction] 5.2 % Normal 4.3-5.6 [facility] Comment on above: Order Comment: Jasmina allen Type: BLOOD SPECIMENOrdering Facility: [facility] Address: [address] [place] [address] Result Comment: Amer [place] Diabetes Association guidelines indicate that patients with HgbA1c in the range 5.7-6.4% are at increased risk for development of diabetes, and intervention by lifestyle modification may be beneficial. HgbA1c greater or equal to 6.5% is considered diagnostic of diabetes. Performed By: #### 5 5454-3 ####[facility] [id number] [place] [id number] [place] IMMUNOFIXATION SCREEN, SERUM on 01-23-2025 INTERPRETATION (MPA) Normal [facility] Comment on above: Order Comment: Speci men Type: BLOOD SPECIMENOrdering Facility: [facility] Address: [address] [place] [address] Performed By: #### I FESC ####[facility] [id number] [place] [address] [place] MPA RESULT A poorly defined reg ion of restricted mobility is present that may represent an M protein. Abnormal No M protein is identified. [facility] Comment on above: Order Comment: Speci men Type: BLOOD SPECIMENOrdering Facility: [facility] Address: [address] [place] [address] Performed By: #### I FESC ####[facility] [id number] [address] [place] STAFF REVIEW (MPA) Reviewed by Jasiel Syed M.D. Normal [facility] Comment on above: Order Comment: Speci men Type: BLOOD SPECIMENOrdering Facility: [facility] Address: [address] [place] [address] Performed By: #### I FES ####[facility] [id number] [place] [address] [place] IMMUNOGLOBULINS,IGG,IGA,IGMo n 01-23-2025 IgA [Mass/Vol] 14 mg/dL Low 70-400 [facility] Comment on above: Order Comment: Speci men Type: BLOOD SPECIMENOrdering Facility: [facility] Address: [address] [place] [address] Performed By: #### S ERIMM ####[facility] [id number] [place] [id number] [place] IgG [Mass/Vol] 264 mg/dL Low 700-1600 [facility] Comment on above: Order Comment: Speci men Type: BLOOD SPECIMENOrdering Facility: [facility] Address: [address] [place] [address] Performed By: #### S ERIMM ####[facility] [id number] [place] [address] [place] IgM [Mass/Vol] 34 mg/dL Low 40-230 [facility] Comment on above: Order Comment: Speci men Type: BLOOD SPECIMENOrdering Facility: [facility] Address: [address] [place] [address] Performed By: #### S ERIMM ####[facility] [id number] [place] [address] [place] KAPPA/EMERY,FREE,SERon 2024 Immunoglobulin light chains.kappa.free (S) [Mass/Vol] 26.1 mg/L High 3.3-19.4 [facility] Comment on above: Order Comment: Speci men Type: BLOOD SPECIMENOrdering Facility: [facility] Address: [address] [place] [address] Result Comment: Rare ly, increased serum free light chains levels may not be detected or accurately quantified due to prozone phenomenon or in high viscosity samples using this immunoturbidimetric assay. Correlation with other laboratory results and clinical findings is recommended.The [place] Free Light Chain was performed using the [employer] immunoturbidimetric method. Result obtained with different assay methods or kits cannot be used interchangeably. Performed By: #### K LFRS ####[facility] [id number] [place] [address] [place] Immunoglobulin light chains.kappa/Immunoglob ulin light chains.lambda (S) [Mass ratio] 2.72 High 0.26-1.65 [facility] Comment on above: Order Comment: Speci men Type: BLOOD SPECIMENOrdering Facility: [facility] Address: [address] [place] [address] Performed By: #### K LFRS ####[facility] [id number] [place] [address] [place] Immunoglobulin light chains.lambda.free [Mass/Vol] 9.6 mg/L Normal 5.7-26.3 [facility] Comment on above: Order Comment: Speci men Type: BLOOD SPECIMENOrdering Facility: [facility] Address: [address] [place] [address] Result Comment: Rare ly, increased serum free [...] used interchangeably. Performed By: #### K LFRS ####[facility] [id number] [place] [address] [place] LDH SerPl-cCncon 01-23-2025 LDH [Catalytic activity/Vol] 238 U/L High 135-225 [facility] Comment on above: Order Comment: Speci men Type: BLOOD SPECIMENOrdering Facility: [facility] Address: [address] [place] [address] Performed By: #### 2 532-0 ####[facility] [id number] [place] [address] [place] PROTEIN ELECTROPHORESIS SERU M (P)on 01-23-2025 Albumin [Mass/Vol] 4.15 g/dL Normal 3.43-5.41 [facility] Comment on above: Order Comment: Speci men Type: BLOOD SPECIMENOrdering Facility: [facility] Address: [address] [place] [address] Performed By: #### L [id number] ####[facility] [id number] [place] [address] [place] Alpha 1 globulin Elph [Mass/Vol] 0.37 g/dL Normal 0.18-0.43 [facility] Comment on above: Order Comment: Speci men Type: BLOOD SPECIMENOrdering Facility: [facility] Address: [address] [place] [address] Performed By: #### L [id number] ####[facility] [id number] [place] [address] [place] Alpha 2 globulin Elph [Mass/Vol] 0.81 g/dL Normal 0.42-0.98 [facility] Comment on above: Order Comment: Speci men Type: BLOOD SPECIMENOrdering Facility: [facility] Address: [address] [place] [address] Performed By: #### L [id number] ####[facility] [id number] [place] [address] [place] Beta globulin Elph [Mass/Vol] 0.55 g/dL Low 0.61-1.17 [facility] Comment on above: Order Comment: Speci men Type: BLOOD SPECIMENOrdering Facility: [facility] Address: [address] [place] [address] Performed By: #### L [id number] ####[facility] [id number] [place] [address] [place] Gamma globulin Elph [Mass/Vol] 0.22 g/dL Low 0.53-1.51 [facility] Comment on above: Order Comment: Speci men Type: BLOOD SPECIMENOrdering Facility: [facility] Address: [address] [place] [address] Performed By: #### L [id number] ####[facility] [id number] [address] STATES [place] M-PROTEIN LOCATION Normal [facility] Comment on above: Order Comment: Speci men Type: BLOOD SPECIMENOrdering Facility: [facility] Address: [address] [place] [address] Result Comment: Not Applicable. Performed By: #### L [id number] ####[facility] [id number] [place] [address] [place] Protein Fractions [Interp] No definitive M protein is identified on protein electrophoresis. Normal No definitive M protein is identified on protein electrophores is. [facility] Comment on above: Order Comment: Speci men Type: BLOOD SPECIMENOrdering Facility: [facility] Address: [address] [place] [address] Performed By: #### L [id number] ####[facility] [id number] [place] [address] [place] Protein.monoclonal Elph [Mass/Vol] 0.00 g/dL Normal <=0.00 [facility] Comment on above: Order Comment: Speci men Type: BLOOD SPECIMENOrdering Facility: [facility] Address: [address] [place] [address] Performed By: #### L [id number] ####[facility] [id number] [place] [address] [place] SPE STAFF REVIEW Reviewed by Jasiel Syed M.D. Normal [facility] Comment on above: Order Comment: Speci men Type: BLOOD SPECIMENOrdering Facility: [facility] Address: [address] [place] [address] Performed By: #### L [id number] ####[facility] [id number] [place] [address] [place] Prot SerPl-mCncon 01-23-2025 Protein [Mass/Vol] 6.1 g/dL Low 6.3-8.0 [facility] Comment on above: Order Comment: Speci men Type: BLOOD SPECIMENOrdering Facility: [facility] Address: [address] [place] [address] Performed By: #### 3 016-3, 2885-2, 1949-09 ####[facility] [id number] [place] [address] [place] TSH SerPl-aCncon 01-23-2025 TSH Qn 0.985 m[IU]/L Normal 0.270-4.200 [facility] Comment on above: Order Comment: Speci men Type: BLOOD SPECIMENOrdering Facility: [facility] Address: [address] [place] [address] Performed By: #### 3 016-3, [birth year], 1949-09 ####[facility] [id number] [place] [address] [place] CNOVon 01-21-2025 CNOV Normal [facility] Discharge Instructionon 12-18 Discharge Instruction [facility] Medical Records Department [address] [place] [address] Instructions for Home/Discharge Instructions 01/14/25 1607 MR#: [id number] Acct: [id number] Name: EDGAR HENDERSON Rep #: [id number] : 1950 74 From: Alvarado Brody MD PCP: Dr. Jose Miguel Herbert MD Status:REG [facility] Discharge Instructions Diet Discharge Diet: No restrictions [...] Provider: Jose Miguel Herbert Instructions Print Language: [place] Discharge Orders/Prescriptions Prescriptions: New oxycodone 5 mg [...] CC: Dr. Jose Miguel Herbert MD Signed [facility] MR/POSTOP.ANEon 01-14-2025 MR/POSTOP[facility] Medical Records Department [address] [place] [address] Anesthesia Postop Eval I 01/14/25 1638 MR#: [id number] Acct: [id number] Name: EDGAR HENDERSON Rep #: [id number] : 1950 74 From: Ashley Lee CRNA PCP: Dr. Jose Miguel Herbert MD Status:REG [facility] Y Race: C Location: [place] [address] Anesthesia: Postop Eval I Current Vital Signs [...] completed: Yes 01/14/25 1638 Date Ashley Lee ROD BUSTER Cosigner Signature: Date CC: Signed [facility] MR/AKTHLNAH7ye 01-14-2025 MR/POSTOPAN2 [facility] Medical Records Department [address] [place] [address] Anesthesia Postop Eval II 01/14/25 1647 MR#: [id number] Acct: [id number] Name: EDGAR HENDERSONNN Rep #: [id number] : 1950 74 From: Colleen Iniguez ROD BUSTER PCP: Dr. Jose Miguel Herbert MD Status:REG [facility] Y Race: C Location: [place] [address] Anesthesia Postop Eval I Sum Postop Eval Completion status Anesthesia document: Postop Eval 1 completed: Yes Anesthesia Postop Eval I Summary Anesthesia Postop Eval I Summary: Anesthesia Postop Eval I: Assessment Summary Airway patent Yes 01/14/25 16:38 ROD BUSTER.LMIL Spontaneous unlabored Yes 01/14/25 16:38 ROD BUSTER.LMIL respirations Mental status Awake 01/14/25 16:38 ROD BUSTER.LMIL nausea No 01/14/25 16:38 ROD BUSTER.LMIL Vomiting No 01/14/25 16:38 ROD BUSTER.LMIL Anesthesia Postop Eval I: Fluid Summary Crystalloid volume administer 400 01/14/25 16:38 ROD BUSTER.LMIL (ml) Colloids volume administered ( ml) Blood Product volume administered (ml) Total IV fluid infused 400 01/14/25 16:38 ROD BUSTER.LMIL Anesthesia Postop Eval I: Summary Notes Anesthesia Complication No 01/14/25 16:38 ROD BUSTER.LMIL Anesthesia Complication Comment: Post-operative progress note Anesthesia: Postop Eval II Evaluation Mental status: Awake and Calm Pain Level: 0 nausea: No Vomiting: No Complications Anesthesia Complication: No 01/14/25 1647 Date Colleen Iniguez ROD BUSTER Cosigner Signature: Date CC: Signed Normal [facility] Operative Reporton 5 Operative Report [facility] Medical Records Department [address] [place] [address] Operative Report 01/14/25 1747 MR#: [id number] Acct: [id number] Name: EDGAR HENDERSON Rep #: [id number] : 1950 74 From: Alvarado Brody MD PCP: Dr. Jose Miguel Herbert MD Status:REG SDC Location: [place] [address]-1 Operative Report (Standard) Operative Information Date of Procedure: 01/14/25 Pre-Operative Diagnosis: End-stage renal disease currently on dialysis Post-Operative Diagnosis: Same Surgery/Procedure Performed: Left upper arm AV graft placement with cadaver femoral-popliteal artery research manufacturing operator: Yes Children'S Author: Mary Rapp Tasks completed by first assistant manager: Opening, Closing, Opening closing and Retracting Type [...] He had vein mapping which revealed minimal northway vessel options with his best northway vessel in his dominant right upper extremity. [...] as around 2 large bridging veins. A Gail tunneler was then used to tunnel through the subcutaneous tissue on the anterior aspect of the upper arm over the bicep muscle. The cadaver graft was thawed per teletypesetter operator's instructions and the patient heparinized allowed to [...] the s (more content not included)... Normal [facility] HBV surface Ag Ql (S)Ordered By: Bonnie Barrera on 01-13-2025 Hepatitis B Surface Antigen Non-Reactive Nonreactive [facility] Comment on above: Reactive: Presumptiv e evidence of HBV. Repeatedly reactive samples must be confirmed using a neutralization test ([employer] HBsAg Confirmatory Test)Non-Reactive: HBsAg not detected; does not exclude the possibility of exposure to HBV L3890.6102on 01-13-2025 HEP B Surf Ag Non-Reactive Normal Nonreactive [facility] Comment on above: Result Comment: Reac tive: Presumptive evidence of HBV. Repeatedly reactive samples must be confirmed using a neutralization test ([employer] HBsAg Confirmatory Test) Non-Reactive: HBsAg not detected; does not exclude the possibility of exposure to HBV Performed By: #### L 3890.6102 ####[facility] [address] [place], [place], [id number] Laboratory - Microbiology an d Antimicrobial susceptibilityOrdered By: Bonnie Barrera on 01-13-2025 HBV surface Ag Ql (S) Non-Reactive Nonreactive [facility] Comment on above: Reactive: Presumptiv e evidence of HBV. Repeatedly reactive samples must be confirmed using a neutralization test ([employer]ys HBsAg Confirmatory Test)Non-Reactive: HBsAg not detected; does not exclude the possibility of exposure to HBV Absolute lymphocyte countOrd ered By: Bonnie Barrera on 01-10-2025 Lymphocytes Auto (Unsp spec) [#/Vol] 0.36 10*3/uL Low 0.83-4.51 [facility] Absolute neutrophil countOrd ered By: Bonnie Barrera on 01-10-2025 Neutrophils (Bld) [#/Vol] 2.6 10*3/uL 2.0-7.7 [facility] Automated lymphocyte count a s percentage of total leukocytesOrdered By: Bonnie Barrera on 01-10-2025 Lymphocytes/100 WBC Auto (Unsp spec) 9.5 % Low 19-41 [facility] BUNon 01-10-2025 Urea nitrogen [Mass/Vol] 62 mg/dL High - [facility] Comment on above: Performed By: #### L 100.0100, L501.1000, L501.5600 ####[facility] [address] [place], [place], [id number] Urea nitrogen [Mass/Vol] 18 mg/dL Normal 01-04 [facility] Comment on above: Performed By: #### L 501.1000 ####[facility] [address] [place], [address] Basophil percentageOrdered B y: Bonnie Barrera on 01-10-2025 Basophils/100 WBC (Bld) 1.6 % High 0-1 [facility] CBC W/Diff, Automatedon 12-18 Absolute Lymph 0.36 X10 3/uL Low 0.83-4.51 [facility] Comment on above: Performed By: #### L 100.0100, L501.1000, L501.5600 ####[facility] [address] [place], [address] Absolute Neut 2.6 X10 3/uL Normal 2.0-7.7 [facility] Comment on above: Performed By: #### L 100.0100, L501.1000, L501.5600 ####[facility] [address] [place], [address] Basophils/100 WBC (Bld) 1.6 % High 0-1 [facility] Comment on above: Performed By: #### L 100.0100, L501.1000, L501.5600 ####[facility] [address] [place], [address] Eosinophils/100 WBC (Bld) 3.2 % Normal 0-5 [facility] Comment on above: Performed By: #### L 100.0100, L501.1000, L501.5600 ####[facility] [address] [place], [address] Erythrocyte distribution width (RBC) [Ratio] 14.6 % Normal 11.6-14.6 [facility] Comment on above: Performed By: #### L 100.0100, L501.1000, L501.5600 ####[facility] [address] [place], [address] Hematocrit (Bld) [Volume fraction] 28.4 % Low 40-54 [facility] Comment on above: Performed By: #### L 100.0100, L501.1000, L501.5600 ####[facility] [address] [place], [address] Hemoglobin (Bld) [Mass/Vol] 9.2 g/dL Low 13.0-16.5 [facility] Comment on above: Performed By: #### L 100.0100, L501.1000, L501.5600 ####[facility] [address] [place], [address] IG% 0.500 Normal 0.0-0.9 [facility] Comment on above: Result Comment: IG% - Immature Granulocytes (promyelocytes, myelocytes and metamyelocytes) > 1% indicates that a LEFT SHIFT is Present. Performed By: #### L 100.0100, L501.1000, L501.5600 ####[facility] [address] [place], [address] Lymphocytes/100 WBC (Bld) 9.5 % Low 19-41 [facility] Comment on above: Performed By: #### L 100.0100, L501.1000, L501.5600 ####[facility] [address] [place], [address] MCH (RBC) [Entitic mass] 34.5 pg High 27.0-32.0 [facility] Comment on above: Performed By: #### L 100.0100, L501.1000, L501.5600 ####[facility] [address] [place], [address] MCHC (RBC) [Mass/Vol] 32.4 g/dL Normal 32-36 [facility] Comment on above: Performed By: #### L 100.0100, L501.1000, L501.5600 ####[facility] [address], [address] MCV (RBC) [Entitic vol] 106.4 fL High 80-94 [facility] Comment on above: Performed By: #### L 100.0100, L501.1000, L501.5600 ####[facility] [address] [place], [address] Monocytes/100 WBC (Bld) 17.1 % High 0-10 [facility] Comment on above: Performed By: #### L 100.0100, L501.1000, L501.5600 ####[facility] [address] [place], [address] Neutrophils/100 WBC (Bld) 68.1 % Normal 47-70 [facility] Comment on above: Performed By: #### L 100.0100, L501.1000, L501.5600 ####[facility] [address] [place], [address] Nucleated RBC (Bld) [#/Vol] 0 10*3/uL Normal 0-5 [facility] Comment on above: Performed By: #### L 100.0100, L501.1000, L501.5600 ####[facility] [address] [place], [address] Platelet mean volume (Bld) [Entitic vol] 11.2 fL Normal 6.2-12.0 [facility] Comment on above: Performed By: #### L 100.0100, L501.1000, L501.5600 ####[facility] [address] [place], [address] Platelets (Bld) [#/Vol] 151 10*3/uL Normal 150-450 [facility] Comment on above: Performed By: #### L 100.0100, L501.1000, L501.5600 ####[facility] [address] [place], [address] RBC (Bld) [#/Vol] 2.67 10*6/uL Low 4.6-6.2 [facility] Comment on above: Performed By: #### L 100.0100, L501.1000, L501.5600 ####[facility] [address] [place], [address] RDW SD 56.6 fl High 35.1-43.9 [facility] Comment on above: Performed By: #### L 100.0100, L501.1000, L501.5600 ####[facility] [address] [place], [address] WBC (Bld) [#/Vol] 3.8 10*3/uL Low 4.4-11.0 [facility] Comment on above: Performed By: #### L 100.0100, L501.1000, L501.5600 ####[facility] [address] [place], [address] Eosinophil percentageOrdered By: Bonnie Barrera on 01-10-2025 Eosinophils/100 WBC (Bld) 3.2 % 0-5 [facility] Erythrocyte distribution wid th (RBC) [Ratio]Ordered By: Bonnie Barrera on 01-10-2025 Erythrocyte distribution width (RBC) [Entitic vol] 56.6 fL High 35.1-43.9 [facility] Erythrocyte distribution wid th ratioOrdered By: Bonnie Barrera on 01-10-2025 Erythrocyte distribution width (RBC) [Ratio] 14.6 % 11.6-14.6 [facility] Erythrocyte distribution wid th standard deviationOrdered By: [facility] Barrera on 01-10-2025 Erythrocyte distribution width (RBC) [Ratio] 56.6 fl High 35.1-43.9 [facility] Hematocrit Auto (Bld) [Volum e fraction]Ordered By: Bonnie Barrera on 01-10-2025 Hematocrit (Bld) [Volume fraction] 28.4 % Low 40-54 [facility] Hemoglobin measurementOrdere d By: Bonnie Barrera on 01-10-2025 Hemoglobin (Bld) [Mass/Vol] 9.2 g/dL Low 13.0-16.5 [facility] Immature granulocytes/100 WB C Auto (Bld)Ordered By: Bonnie Barrera on 01-10-2025 Immature granulocytes/100 WBC (Bld) 0.500 % 0.0-0.9 [facility] Comment on above: IG% - Immature Granu locytes (promyelocytes, myelocytes and metamyelocytes) > 1% indicates that a LEFT SHIFT is Present. Lymphocytes Auto (Unsp spec) [#/Vol]Ordered By: Bonnie Barerra on 01-10-2025 Lymphocytes (Bld) [#/Vol] 0.36 10*3/uL Low 0.83-4.51 [facility] Lymphocytes/100 WBC Auto (Un sp spec)Ordered By: Bonnie Barrera on 01-10-2025 Lymphocytes/100 WBC (Bld) 9.5 % Low 19-41 [facility] MCV (mean corpuscular volume ) determinationOrdered By: Bonnie Barrera on 01-10-2025 MCV (RBC) [Entitic vol] 106.4 fL High 80-94 [facility] Mean corpuscular hemoglobin (MCH) determinationOrdered By: Bonnie Barrera on 01-10-2025 MCH (RBC) [Entitic mass] 34.5 pg High 27.0-32.0 [facility] Mean corpuscular hemoglobin concentration (MCHC) determinationOrdered By: Bonnie Barrera on 01-10-2025 MCHC (RBC) [Mass/Vol] 32.4 g/dL 32-36 [facility] Mean platelet volume determi nationOrdered By: Bonnie Barrera on 01-10-2025 Platelet mean volume (Bld) [Entitic vol] 11.2 fL 6.2-12.0 [facility] Monocyte percentageOrdered B y: Bonnie Barrera on 01-10-2025 Monocytes/100 WBC (Bld) 17.1 % High 0-10 [facility] Neutrophil percentageOrdered By: Bonnie Barrera on 01-10-2025 Neutrophils/100 WBC (Bld) 68.1 % 47-70 [facility] Nucleated red blood cell per centageOrdered By: Bonnie Barrera on 01-10-2025 Nucleated RBC/100 WBC (Bld) [Ratio] 0 % 0-5 [facility] Platelet countOrdered By: Drake piercemariah Holly on 01-10-2025 Platelets (Bld) [#/Vol] 151 10*3/uL 150-450 [facility] Potassiumon 01-10-2025 Potassium [Moles/Vol] 4.3 mmol/L Normal 3.3-5.1 [facility] Comment on above: Performed By: #### L 100.0100, L501.1000, L501.5600 ####[facility] [address] [place], [place], [address] Potassium (Unsp spec) [Mass/ Vol]Ordered By: Bonnie Barrera on 01-10-2025 Potassium [Moles/Vol] 4.3 mmol/L 3.3-5.1 [facility] Potassium measurement (mass/ volume)Ordered By: Bonnie Barrera on 01-10-2025 Potassium (Unsp spec) [Mass/Vol] 4.3 mmol/L 3.3-5.1 [facility] RBC Auto (Bld) [#/Vol]Ordere d By: Bonnie Barrera on 01-10-2025 RBC (Bld) [#/Vol] 2.67 10*6/uL Low 4.6-6.2 [facility] Serum or plasma urea nitroge n measurement (mass/volume)Ordered By: Bonnie Barrera on 01-10-2025 Urea nitrogen [Mass/Vol] 18 mg/dL 4-19 [facility] White blood cell (WBC) count Ordered By: Bonnie Barrera on 01-10-2025 WBC (Bld) [#/Vol] 3.8 10*3/uL Low 4.4-11.0 [facility] MR/PAT.Elo 01-01-2025 MR/PAT.[facility] Medical Records Department [address] [place] [address] PAT - Anesthesia 01/01/25 1113 MR#: [id number] Acct: [id number] Name: EDGAR HENDERSON Rep #: [id number] : 1950 74 From: Steven Mandujano MD PCP: Dr. 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: Anesthesia History - journeyman mechanic Hx Hospitalization No 12/31/24 09:16 Any Problems [...] take am of surgery PONV PONV - journeyman mechanic: PONV - journeyman mechanic Female No 12/31/24 09:16 HX of Motion [...] 12/18/23 09:54 Respiratory Assessment Respiratory Assessment - journeyman mechanic: Respiratory Tract Infection Hx - journeyman mechanic Hx Respiratory Tract Infection No 12/31/24 09:16 STOP Sleep Apnea STOP Sleep Apnea - journeyman mechanic: STOP Sleep Apnea - journeyman mechanic Hx Hypertension No 12/31/24 09:16 Hx Sleep [...] Tobacco Use History Tobacco Use History - journeyman mechanic: Tobacco Use History - journeyman mechanic Tobacco Use Smoking Status Never smoker 12/31/24 09:16 Hx Tobacco Use No 12/31/24 09:16 Years Smoking Packs Smoked per Day Smoking Cessation Date was within the last 15 years Hx Smoking Cessation Date Hx Smoking Cessation Counseling Hematologic Medial History Hematologic Hx - journeyman mechanic: Hematologic 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 Specify any problems Hx of Preganancy in last 3 N/A 12/31/24 09:16 Months Nurse Filling Out Transfusion [facility] 12/31/24 09:16 Questions: Date: 12/31/24 12/31/24 09:16 Time: 09:34 12/31/24 09:16 Patient unable to answer at this time (ie. confused, unrespo /Reproduction History /Reproductive History - journeyman mechanic: /Reproductive Hx- journeyman mechanic Hx Now Gestational Age (in weeks): EDC: [...] mg PO BID 09/05/24 Unknown His tory (Bettina) Renata (more content not included)... Normal [facility] CNPNon 12-31-2024 CNPN Normal [facility] B2 Microglob SerPl-mCncon Xtuq-1-Hwoettzaibbsx [Mass/Vol] 16.2 ug/mL High <3.1 [facility] Comment on above: Order Comment: Speci men Type: BLOOD SPECIMENOrdering Facility: [facility] Address: [address] [place] [address] Result Comment: Beta -2 Microglobulin test is performed using the [employer] immunoturbidimetric method. Results obtained with different methods or kits cannot be used interchangeably. Performed By: #### 2 885-2, 195- ####[facility] [id number] [place] [address] [place] CBC W Auto Differential pane l (Bld)on 12-24-2024 Basophils (Bld) [#/Vol] 0.05 10*3/uL Normal <0.11 [facility] Comment on above: Order Comment: Zairai tiffany Type: BLOOD SPECIMENOrdering Facility: [facility] Address: [address] [place] [address] Performed By: #### 5 7021-8 ####[facility] [id number] [place] [address] [place] Basophils/100 WBC (Bld) 1.4 % Normal C [facility] Comment on above: Order Comment: Speci men Type: BLOOD SPECIMENOrdering Facility: [facility] Address: [address] [place] [address] Performed By: #### 5 7021-8 ####[facility] [id number] [place] [address] [place] Differential cell count method Nom (Bld) Auto Normal [facility] Comment on above: Order Comment: Speci men Type: BLOOD SPECIMENOrdering Facility: [facility] Address: [address] [place] [address] Performed By: #### 5 7021-8 ####[facility] MANJULAROMEROPASCUALDinorah [id number] [place] [address] [place] Eosinophils (Bld) [#/Vol] 0.12 10*3/uL Normal <0.46 [facility] Comment on above: Order Comment: Speci men Type: BLOOD SPECIMENOrdering Facility: [facility] Address: [address] [place] [address] Performed By: #### 5 7021-8 ####[facility]ILDRENFRANCISCODinorah [id number] [place] [address] [place] Eosinophils/100 WBC (Bld) 3.5 % Normal [facility] Comment on above: Order Comment: Speci men Type: BLOOD SPECIMENOrdering Facility: [facility] Address: [address] [place] [address] Performed By: #### 5 7021-8 ####[facility] CHILDRENNCCARMELINA [id number] [place] [address] [place] Erythrocyte distribution width (RBC) [Ratio] 14.6 % Normal 11.5-15.0 [facility] Comment on above: Order Comment: Speci men Type: BLOOD SPECIMENOrdering Facility: [facility] Address: [address] [place] [address] Performed By: #### 5 7021-8 ####[facility]CL[facility] [id number] [place] [address] [place] Hematocrit (Bld) [Volume fraction] 31.0 % Low 39.0-51.0 [facility] Comment on above: Order Comment: Speci men Type: BLOOD SPECIMENOrdering Facility: [facility] Address: [address] [place] [address] Performed By: #### 5 7021-8 ####[facility] MANJULADENVERFRANCISCOLIA [id number] [place] [address] [place] Hemoglobin (Bld) [Mass/Vol] 10.4 g/dL Low 13.0-17.0 [facility] Comment on above: Order Comment: Speci men Type: BLOOD SPECIMENOrdering Facility: [facility] Address: [address] [place] [address] Performed By: #### 5 7021-8 ####[facility] HOS[facility]ITALLIA [id number] [place] [address] [place] Immature granulocytes (Bld) [#/Vol] 0.04 10*3/uL Normal <0.10 [facility] Comment on above: Order Comment: Speci men Type: BLOOD SPECIMENOrdering Facility: [facility] Address: [address] [place] [address] Performed By: #### 5 7021-8 ####[facility] [id number] [place] [address] [place] Immature granulocytes/100 WBC (Bld) 1.2 % Normal [facility] Comment on above: Order Comment: Speci men Type: BLOOD SPECIMENOrdering Facility: [facility] Address: [address] [place] [address] Performed By: #### 5 7021-8 ####[facility] CHILDRENDAISYA [id number] [place] [address] [place] Lymphocytes (Bld) [#/Vol] 0.38 10*3/uL Low 1.00-4.00 [facility] Comment on above: Order Comment: Speci men Type: BLOOD SPECIMENOrdering Facility: [facility] Address: [address] [place] [address] Performed By: #### 5 7021-8 ####[facility] [id number] [place] [id number] [place] Lymphocytes/100 WBC (Bld) 11.0 % Normal [facility] Comment on above: Order Comment: Speci men Type: BLOOD SPECIMENOrdering Facility: [facility] Address: [address] [place] [address] Performed By: #### 5 7021-8 ####[facility] [id number] [place] [address] [place] MCH (RBC) [Entitic mass] 34.7 pg High 26.0-34.0 [facility] Comment on above: Order Comment: Speci men Type: BLOOD SPECIMENOrdering Facility: [facility] Address: [address] [place] [address] Performed By: #### 5 7021-8 ####[facility] [id number] [place] [address] [place] MCHC (RBC) [Mass/Vol] 33.5 g/dL Normal 30.5-36.0 [facility] Comment on above: Order Comment: Speci men Type: BLOOD SPECIMENOrdering Facility: [facility] Address: [address] [place] [address] Performed By: #### 5 7021-8 ####[facility]ILDRENNCLIA [id number] [place] [address] [place] MCV (RBC) [Entitic vol] 103.3 fL High 80.0-100.0 C [facility] Comment on above: Order Comment: Speci men Type: BLOOD SPECIMENOrdering Facility: [facility] Address: [address] [place] [address] Performed By: #### 5 7021-8 ####[facility] CHILDRENNCLI [id number] [place] [address] [place] Monocytes (Bld) [#/Vol] 0.64 10*3/uL Normal <0.87 [facility] Comment on above: Order Comment: Speci men Type: BLOOD SPECIMENOrdering Facility: [facility] Address: [address] [place] [address] Performed By: #### 5 7021-8 ####[facility]ILDRENNCPASCUALA [id number] [place] [address] [place] Monocytes/100 WBC (Bld) 18.5 % Normal [facility] Comment on above: Order Comment: Speci men Type: BLOOD SPECIMENOrdering Facility: [facility] Address: [address] [place] [address] Performed By: #### 5 7021-8 ####[facility]ILDRENNCA [id number] [place] [address] [place] Neutrophils (Bld) [#/Vol] 2.23 10*3/uL Normal 1.45-7.50 [facility] Comment on above: Order Comment: Speci men Type: BLOOD SPECIMENOrdering Facility: [facility] Address: [address] [place] [address] Performed By: #### 5 7021-8 ####[facility] [id number] [place] [address] [place] Neutrophils/100 WBC (Bld) 64.4 % Normal [facility] Comment on above: Order Comment: Speci men Type: BLOOD SPECIMENOrdering Facility: [facility] Address: [address] [place] [address] Performed By: #### 5 7021-8 ####[facility] H[facility]ITALLIA [id number] [place] [address] [place] Nucleated RBC (Bld) [#/Vol] 10*3/uL Normal <0.01 [facility] Comment on above: Order Comment: Speci men Type: BLOOD SPECIMENOrdering Facility: [facility] Address: [address] [place] [address] Performed By: #### 5 7021-8 ####[facility] MANJULAROMEROLIA [id number] [place] [address] [place] Nucleated RBC/100 WBC (Bld) [Ratio] 0.0 /100 WBC Normal [facility] Comment on above: Order Comment: Speci men Type: BLOOD SPECIMENOrdering Facility: [facility] Address: [address] [place] [address] Performed By: #### 5 7021-8 ####[facility]DRENDAIS[facility] [id number] [place] [address] [place] Platelet mean volume (Bld) [Entitic vol] 10.5 fL Normal 9.0-12.7 [facility] Comment on above: Order Comment: Speci men Type: BLOOD SPECIMENOrdering Facility: [facility] Address: [address] [place] [address] Performed By: #### 5 7021-8 ####[facility] [id number] [place] [address] [place] Platelets (Bld) [#/Vol] 166 10*3/uL Normal 150-400 [facility] Comment on above: Order Comment: Speci men Type: BLOOD SPECIMENOrdering Facility: [facility] Address: [address] [place] [address] Performed By: #### 5 7021-8 ####[facility] HOS[facility]ITALLIA [id number] [place] [address] [place] RBC (Bld) [#/Vol] 3.00 10*6/uL Low 4.20-6.00 [facility] Comment on above: Order Comment: Speci men Type: BLOOD SPECIMENOrdering Facility: [facility] Address: [address] [place] [address] Performed By: #### 5 7021-8 ####[facility] [id number] [place] [address] [place] WBC (Bld) [#/Vol] 3.46 10*3/uL Low 3.70-11.00 [facility] Comment on above: Order Comment: Speci men Type: BLOOD SPECIMENOrdering Facility: [facility] Address: [address] [place] [address] Performed By: #### 5 7021-8 ####[facility]ILDRENFRANCISCOLIA [id number] [place] [address] [place] CNPNon 12-24-2024 CNPN Normal [facility] metabolic 2000 panelon 12-24-2024 Albumin [Mass/Vol] 4.4 g/dL Normal 3.9-4.9 [facility] Comment on above: Order Comment: Speci men Type: BLOOD SPECIMENOrdering Facility: [facility] Address: [address] [place] [address] Performed By: #### 2 4323-8, 2532-0 ####[facility] [id number] [place] [address] [place] ALP [Catalytic activity/Vol] 131 U/L High 38-113 [facility] Comment on above: Order Comment: Speci men Type: BLOOD SPECIMENOrdering Facility: [facility] Address: [address] [place] [address] Performed By: #### 2 4323-8, 2532-0 ####[facility]ITALWNCL[facility] [id number] [place] [address] [place] ALT [Catalytic activity/Vol] 21 U/L Normal 10-54 [facility] Comment on above: Order Comment: Speci men Type: BLOOD SPECIMENOrdering Facility: [facility] Address: [address] [place] [address] Performed By: #### 2 4323-8, 2532-0 ####[facility]CL[facility] [id number] [place] [address] [place] Anion gap [Moles/Vol] 11 mmol/L Normal 8-15 [facility] Comment on above: Order Comment: Speci men Type: BLOOD SPECIMENOrdering Facility: [facility] Address: [address] [place] [address] Performed By: #### 2 4323-8, 2532-0 ####[facility] NASSAUSUMIWSARAHI [id number] [place] [address] [place] AST [Catalytic activity/Vol] 24 U/L Normal 14-40 [facility] Comment on above: Order Comment: Speci men Type: BLOOD SPECIMENOrdering Facility: [facility] Address: [address] [place] [address] Performed By: #### 2 4323-8, 2-0 ####[facility]DRENSARAHI [id number] [place] [address] [place] Bilirubin [Mass/Vol] 0.4 mg/dL Normal 0.2-1.3 [facility] Comment on above: Order Comment: Speci men Type: BLOOD SPECIMENOrdering Facility: [facility] Address: [address] [place] [address] Performed By: #### 2 4323-8, 2532-0 ####[facility] [id number] [place] [address] [place] Calcium [Mass/Vol] 10.0 mg/dL Normal 8.5-10.2 [facility] Comment on above: Order Comment: Speci men Type: BLOOD SPECIMENOrdering Facility: [facility] Address: [address] [place] [address] Performed By: #### 2 4323-8, 2532-0 ####[facility]ENFRANCISCOLIA [id number] [place] [address] [place] Chloride [Moles/Vol] 98 mmol/L Normal 98-107 [facility] Comment on above: Order Comment: Speci men Type: BLOOD SPECIMENOrdering Facility: [facility] Address: [address] [place], [place] [address] Performed By: #### 2 4323-8, 2531-0 ####[facility] [id number] [place] [address] [place] CO2 [Moles/Vol] 30 mmol/L Normal 22-30 [facility] Comment on above: Order Comment: Speci men Type: BLOOD SPECIMENOrdering Facility: [facility] Address: [address] [place] [address] Performed By: #### 2 4323-8, 2531-0 ####[facility] [id number] [place] [address] [place] Creatinine [Mass/Vol] 3.91 mg/dL High 0.73-1.22 [facility] Comment on above: Order Comment: Speci men Type: BLOOD SPECIMENOrdering Facility: [facility] Address: [address] [place] [address] Performed By: #### 2 4323-8, 0 ####[facility] [id number] [address] STATES OF [facility] Creatinine and Glomerular filtration rate.predicted panel (S/P/Bld) 16 mL/min/1.73m??? Low >=60 [facility] Comment on above: Order Comment: Speci men Type: BLOOD SPECIMENOrdering Facility: [facility] Address: [address] [place] [address] Result Comment: Radha mated Glomerular Filtration Rate [...] actual GFR. Performed By: #### 2 4323-8, 0 ####[facility] [id number] [place] [address] [place] Glucose [Mass/Vol] 106 mg/dL High 74-99 [facility] Comment on above: Order Comment: Speci men Type: BLOOD SPECIMENOrdering Facility: [facility] Address: [address] [place] [address] Result Comment: The [employer] Diabetes Association (ADA) provides guidance for cutoff [...] Standards of Medical Care in Diabetes 2016, [employer] Diabetes [employer]. Diabetes Care. 2016.39(Suppl 1). Performed By: #### 2 4323-8, 0 ####[facility] [id number] [place] [address] [place] Potassium [Moles/Vol] 3.5 mmol/L Low 3.7-5.1 [facility] Comment on above: Order Comment: Speci men Type: BLOOD SPECIMENOrdering Facility: [facility] Address: [address] [place] [address] Performed By: #### 2 4323-8, 0 ####[facility] [id number] [place] [address] [place] Protein [Mass/Vol] 6.4 g/dL Normal 6.3-8.0 [facility] Comment on above: Order Comment: Speci men Type: BLOOD SPECIMENOrdering Facility: [facility] Address: [address] [place] [address] Performed By: #### 2 4323-8, 2532-0 ####[facility]DRENNCPASCUALA [id number] [place] [address] [place] Sodium [Moles/Vol] 139 mmol/L Normal 136-144 [facility] Comment on above: Order Comment: Speci men Type: BLOOD SPECIMENOrdering Facility: [facility] Address: [address] [place] [address] Performed By: #### 2 4323-8, 2532-0 ####[facility] [id number] [place] [address] [place] Urea nitrogen [Mass/Vol] 48 mg/dL High 9-24 [facility] Comment on above: Order Comment: Speci men Type: BLOOD SPECIMENOrdering Facility: [facility] Address: [address] [place] [address] Performed By: #### 2 4323-8, 2531-0 ####[facility]CL[facility] [id number] [address] [place] IMMUNOFIXATION SCREEN, SERUM on 12-24-2024 INTERPRETATION (MPA) Normal [facility] Comment on above: Order Comment: Speci men Type: BLOOD SPECIMENOrdering Facility: [facility] Address: [address] [place] [address] Performed By: #### I FESC ####[facility] [id number] [address] [place] MPA RESULT A poorly defined reg ion of restricted mobility is present that may represent an M protein. Abnormal No M protein is identified. [facility] Comment on above: Order Comment: Speci men Type: BLOOD SPECIMENOrdering Facility: [facility] Address: [address] [place] [address] Performed By: #### I FESC ####[facility] LABCL[facility] [id number] [place] [address] [place] STAFF REVIEW (MPA) Reviewed by Andi Mercedes MD, Ph.D ([id number]) Normal [facility] Comment on above: Order Comment: Speci men Type: BLOOD SPECIMENOrdering Facility: [facility] Address: [address] [place] [address] Performed By: #### I FES ####[facility]CL[facility] [id number] [place] [address] [place] IMMUNOGLOBULINS,IGG,IGA,IGMo n 12-24-2024 IgA [Mass/Vol] 16 mg/dL Low 70-400 [facility] Comment on above: Order Comment: Speci men Type: BLOOD SPECIMENOrdering Facility: [facility] Address: [address] [place] [address] Performed By: #### S ERIMM ####[facility] [id number] [place] [address] [place] IgG [Mass/Vol] 279 mg/dL Low 700-1600 [facility] Comment on above: Order Comment: Speci men Type: BLOOD SPECIMENOrdering Facility: [facility] Address: [address] [place] [address] Performed By: #### S ERIMM ####[facility] [id number] [place] [address] [place] IgM [Mass/Vol] 33 mg/dL Low 40-230 [facility] Comment on above: Order Comment: Speci men Type: BLOOD SPECIMENOrdering Facility: [facility] Address: [address] [place] [address] Performed By: #### S ERIMM ####[facility] [id number] [place] [id number] [place] KAPPA/EMERY,FREE,SERon 2024 Immunoglobulin light chains.kappa.free (S) [Mass/Vol] 29.3 mg/L High 3.3-19.4 [facility] Comment on above: Order Comment: Speci men Type: BLOOD SPECIMENOrdering Facility: [facility] Address: [address] [place] [address] Result Comment: Rare ly, increased serum free light chains levels may not be detected or accurately quantified due to prozone phenomenon or in high viscosity samples using this immunoturbidimetric assay. Correlation with other laboratory results and clinical findings is recommended.The [place] Free Light Chain was performed using the [employer] immunoturbidimetric method. Result obtained with different assay methods or kits cannot be used interchangeably. Performed By: #### K LFRS ####[facility] [id number] [place] [address] [place] Immunoglobulin light chains.kappa/Immunoglob ulin light chains.lambda (S) [Mass ratio] 1.72 High 0.26-1.65 [facility] Comment on above: Order Comment: Speci men Type: BLOOD SPECIMENOrdering Facility: [facility] Address: [address] [place] [address] Performed By: #### K LFRS ####[facility] [id number] [place] [address] [place] Immunoglobulin light chains.lambda.free [Mass/Vol] 17.0 mg/L Normal 5.7-26.3 [facility] Comment on above: Order Comment: Speci men Type: BLOOD SPECIMENOrdering Facility: [facility] Address: [address] [place] [address] Result Comment: Rare ly, increased serum free [...] used interchangeably. Performed By: #### K LFRS ####[facility] [id number] [place] [address] [place] LDH SerPl-cCncon 12-24-2024 LDH [Catalytic activity/Vol] 243 U/L High 135-225 [facility] Comment on above: Order Comment: Speci men Type: BLOOD SPECIMENOrdering Facility: [facility] Address: [address] [place] [address] Performed By: #### 2 4323-8, 2532-0 ####[facility] [id number] [place] [address] [place] PROTEIN ELECTROPHORESIS SERU M (P)on 12-24-2024 Albumin [Mass/Vol] 4.30 g/dL Normal 3.43-5.41 [facility] Comment on above: Order Comment: Speci men Type: BLOOD SPECIMENOrdering Facility: [facility] Address: [address] [place] [address] Performed By: #### L [id number] ####[facility] [id number] [place] [address] [place] Alpha 1 globulin Elph [Mass/Vol] 0.32 g/dL Normal 0.18-0.43 [facility] Comment on above: Order Comment: Speci men Type: BLOOD SPECIMENOrdering Facility: [facility] Address: [address] [place] [address] Performed By: #### L [id number] ####[facility] [id number] [place] [address] [place] Alpha 2 globulin Elph [Mass/Vol] 0.68 g/dL Normal 0.42-0.98 [facility] Comment on above: Order Comment: Speci men Type: BLOOD SPECIMENOrdering Facility: [facility] Address: [address] [place] [address] Performed By: #### L [id number] ####[facility] [id number] [id number] [address] [place] Beta globulin Elph [Mass/Vol] 0.56 g/dL Low 0.61-1.17 [facility] Comment on above: Order Comment: Speci men Type: BLOOD SPECIMENOrdering Facility: [facility] Address: [address] [place] [address] Performed By: #### L [id number] ####[facility] [id number] [place] [address] [place] Gamma globulin Elph [Mass/Vol] 0.23 g/dL Low 0.53-1.51 [facility] Comment on above: Order Comment: Speci men Type: BLOOD SPECIMENOrdering Facility: [facility] Address: [address] [place] [address] Performed By: #### L [id number] ####[facility] [id number] [address] STATES OF [facility] INTERPRETATION COMMENT FOR PROTEIN ELECTROPHORESIS Hypogammaglobulinemia is present, which can be seen in the setting of monoclonal gammopathy. If clinically indicated, monoclonal protein analysis and serum free light chain analysis are suggested to evaluate further for monoclonal gammopathy. Normal [facility] Comment on above: Order Comment: Jasmina tiffany Type: BLOOD SPECIMENOrdering Facility: [facility] Address: [address] [place] [address] Performed By: #### L [id number] ####[facility] [id number] [address] [place] M-PROTEIN LOCATION Normal [facility] Comment on above: Order Comment: Speci men Type: BLOOD SPECIMENOrdering Facility: [facility] Address: [address] [place] [address] Result Comment: Not Applicable. Performed By: #### L [id number] ####[facility] [id number] [place] [id number] [place] Protein Fractions [Interp] No definitive M protein is identified on protein electrophoresis. Normal No definitive M protein is identified on protein electrophores is. [facility] Comment on above: Order Comment: Speci men Type: BLOOD SPECIMENOrdering Facility: [facility] Address: [address] [place] [address] Performed By: #### L [id number] ####[facility] [id number] [place] [address] [place] Protein.monoclonal Elph [Mass/Vol] 0.00 g/dL Normal <=0.00 [facility] Comment on above: Order Comment: Speci men Type: BLOOD SPECIMENOrdering Facility: [facility] Address: [address] [place] [address] Performed By: #### L [id number] ####[facility] [id number] [place] [address] [place] SPE STAFF REVIEW Reviewed by Andi Mercedes MD, Ph.D ([id number]) Normal [facility] Comment on above: Order Comment: Speci men Type: BLOOD SPECIMENOrdering Facility: [facility] Address: [address] [place] [address] Performed By: #### L [id number] ####[facility] [id number] [place] [address] [place] Prot SerPl-mCncon 12-24-2024 Protein [Mass/Vol] 6.1 g/dL Low 6.3-8.0 [facility] Comment on above: Order Comment: Speci men Type: BLOOD SPECIMENOrdering Facility: [facility] Address: [address] [place] [address] Performed By: #### 2 885-2, 19510-19 ####[facility] [id number] [place] [address] [place] CNOVSPon 12-03-2024 CNOVSP Normal [facility] B2 Microglob SerPl-mCncon Pueq-6-Pkevuqlgbqchd [Mass/Vol] 16.3 ug/mL High <3.1 [facility] Comment on above: Order Comment: Speci men Type: BLOOD SPECIMENOrdering Facility: [facility] Address: [address] [place] [address] Result Comment: Beta -2 Microglobulin test is performed using the [employer] immunoturbidimetric method. Results obtained with different methods or kits cannot be used interchangeably. Performed By: #### 2 885-2, 195-1 ####[facility] [id number] [facility] [id number] [place] [address] [place] CBC W Auto Differential pane l (Bld)on 11-26-2024 Basophils (Bld) [#/Vol] 0.05 10*3/uL Normal <0.11 [facility] Comment on above: Order Comment: Speci men Type: BLOOD SPECIMENOrdering Facility: [facility] Address: [address] [place] [address] Performed By: #### 5 7021-8 ####[facility] [id number] [place] [address] [place] Basophils/100 WBC (Bld) 1.1 % Normal [facility] Comment on above: Order Comment: Speci men Type: BLOOD SPECIMENOrdering Facility: [facility] Address: [address] [place] [address] Performed By: #### 5 7021-8 ####[facility] [id number] [place] [address] [place] Differential cell count method Nom (Bld) Auto Normal [facility] Comment on above: Order Comment: Speci men Type: BLOOD SPECIMENOrdering Facility: [facility] Address: [address] [place] [address] Performed By: #### 5 7021-8 ####[facility] [id number] [place] [address] [place] Eosinophils (Bld) [#/Vol] 0.13 10*3/uL Normal <0.46 [facility] Comment on above: Order Comment: Speci men Type: BLOOD SPECIMENOrdering Facility: [facility] Address: [address] [place] [address] Performed By: #### 5 7021-8 ####[facility] [id number] [place] [address] [place] Eosinophils/100 WBC (Bld) 3.0 % Normal [facility] Comment on above: Order Comment: Speci men Type: BLOOD SPECIMENOrdering Facility: [facility] Address: [address] [place] [address] Performed By: #### 5 7021-8 ####[facility] [id number] [place] [address] [place] Erythrocyte distribution width (RBC) [Ratio] 14.7 % Normal 11.5-15.0 [facility] Comment on above: Order Comment: Speci men Type: BLOOD SPECIMENOrdering Facility: [facility] Address: [address] [place] [address] Performed By: #### 5 7021-8 ####[facility] [id number] [place] [address] [place] Hematocrit (Bld) [Volume fraction] 30.2 % Low 39.0-51.0 [facility] Comment on above: Order Comment: Speci men Type: BLOOD SPECIMENOrdering Facility: [facility] Address: [address] [place] [address] Performed By: #### 5 7021-8 ####[facility] [id number] [place] [address] [place] Hemoglobin (Bld) [Mass/Vol] 9.9 g/dL Low 13.0-17.0 [facility] Comment on above: Order Comment: Speci men Type: BLOOD SPECIMENOrdering Facility: [facility] Address: [address] [place] [address] Performed By: #### 5 7021-8 ####[facility] MILLWNCLIA [id number] [place] [address] [place] Immature granulocytes (Bld) [#/Vol] 0.04 10*3/uL Normal <0.10 [facility] Comment on above: Order Comment: Speci men Type: BLOOD SPECIMENOrdering Facility: [facility] Address: [address] [place] [address] Performed By: #### 5 7021-8 ####[facility]ITALWNCL[facility] [id number] [place] [address] [place] Immature granulocytes/100 WBC (Bld) 0.9 % Normal [facility] Comment on above: Order Comment: Speci men Type: BLOOD SPECIMENOrdering Facility: [facility] Address: [address] [place] [address] Performed By: #### 5 7021-8 ####[facility] [id number] [place] [address] [place] Lymphocytes (Bld) [#/Vol] 0.57 10*3/uL Low 1.00-4.00 [facility] Comment on above: Order Comment: Speci men Type: BLOOD SPECIMENOrdering Facility: [facility] Address: [address] [place] [address] Performed By: #### 5 7021-8 ####[facility] MILLTOWNCLIA [id number] [place] [address] [place] Lymphocytes/100 WBC (Bld) 13.0 % Normal [facility] Comment on above: Order Comment: Speci men Type: BLOOD SPECIMENOrdering Facility: [facility] Address: [address] [place] [address] Performed By: #### 5 7021-8 ####[facility] MILLWNCLIA [id number] [place] [address] [place] MCH (RBC) [Entitic mass] 34.6 pg High 26.0-34.0 [facility] Comment on above: Order Comment: Speci men Type: BLOOD SPECIMENOrdering Facility: [facility] Address: [address] [place] [address] Performed By: #### 5 7021-8 ####[facility]ENFR[facility]ISCOCEN[facility] [id number] [place] [address] [place] MCHC (RBC) [Mass/Vol] 32.8 g/dL Normal 30.5-36.0 [facility] Comment on above: Order Comment: Speci men Type: BLOOD SPECIMENOrdering Facility: [facility] Address: [address] [place] [address] Performed By: #### 5 7021-8 ####[facility]ENFR[facility]ISCOCEN[facility] [id number] [address] [place] MCV (RBC) [Entitic vol] 105.6 fL High 80.0-100.0 C [facility] Comment on above: Order Comment: Speci men Type: BLOOD SPECIMENOrdering Facility: [facility] Address: [address] [place] [address] Performed By: #### 5 7021-8 ####[facility]ENSAR[facility]I [id number] [place] [address] [place] Monocytes (Bld) [#/Vol] 0.83 10*3/uL Normal <0.87 [facility] Comment on above: Order Comment: Speci men Type: BLOOD SPECIMENOrdering Facility: [facility] Address: [address] [place] [address] Performed By: #### 5 7021-8 ####[facility] [id number] [address] Monocytes/100 WBC (Bld) 19.0 % Normal [facility] Comment on above: Order Comment: Speci men Type: BLOOD SPECIMENOrdering Facility: [facility] Address: [address] [place] [address] Performed By: #### 5 7021-8 ####[facility] [id number] [place] [address] [place] Neutrophils (Bld) [#/Vol] 2.75 10*3/uL Normal 1.45-7.50 [facility] Comment on above: Order Comment: Speci men Type: BLOOD SPECIMENOrdering Facility: [facility] Address: [address] [place] [address] Performed By: #### 5 7021-8 ####[facility] [id number] [place] [address] [place] Neutrophils/100 WBC (Bld) 63.0 % Normal [facility] Comment on above: Order Comment: Speci men Type: BLOOD SPECIMENOrdering Facility: [facility] Address: [address] [place] [address] Performed By: #### 5 7021-8 ####[facility] [id number] [place] [address] [place] Nucleated RBC (Bld) [#/Vol] 10*3/uL Normal <0.01 [facility] Comment on above: Order Comment: Speci men Type: BLOOD SPECIMENOrdering Facility: [facility] Address: [address] [place] [address] Performed By: #### 5 7021-8 ####[facility] [id number] [place] [address] [place] Nucleated RBC/100 WBC (Bld) [Ratio] 0.0 /100 WBC Normal [facility] Comment on above: Order Comment: Speci men Type: BLOOD SPECIMENOrdering Facility: [facility] Address: [address] [place], [place] [address] Performed By: #### 5 7021-8 ####[facility] RADHANCPASCUALA [id number] [place] [address] [place] Platelet mean volume (Bld) [Entitic vol] 10.3 fL Normal 9.0-12.7 [facility] Comment on above: Order Comment: Speci men Type: BLOOD SPECIMENOrdering Facility: [facility] Address: [address] [place], [place] [address] Performed By: #### 5 7021-8 ####[facility]ILDRENFRANCISCOA [id number] [place] [address] [place] Platelets (Bld) [#/Vol] 134 10*3/uL Low 150-400 [facility] Comment on above: Order Comment: Speci men Type: BLOOD SPECIMENOrdering Facility: [facility] Address: [address] [place], [place] [address] Performed By: #### 5 7021-8 ####[facility]ILDRENNCLIA [id number] [place] [address] [place] RBC (Bld) [#/Vol] 2.86 10*6/uL Low 4.20-6.00 [facility] Comment on above: Order Comment: Speci men Type: BLOOD SPECIMENOrdering Facility: [facility] Address: [address] [place], [place] [address] Performed By: #### 5 7021-8 ####[facility]CLIA [id number] [place] [address] [place] WBC (Bld) [#/Vol] 4.37 10*3/uL Normal 3.70-11.00 [facility] Comment on above: Order Comment: Speci men Type: BLOOD SPECIMENOrdering Facility: [facility] Address: [address] [place], [place] [address] Performed By: #### 5 7021-8 ####[facility] MILLTOWNCLIA [id number] [place] [address] [place] Comprehensive metabolic 2000 panelon 11-26-2024 Albumin [Mass/Vol] 4.3 g/dL Normal 3.9-4.9 [facility] Comment on above: Order Comment: Speci men Type: BLOOD SPECIMENOrdering Facility: [facility] Address: [address] [place] [address] Performed By: #### 2 4323-8, 2-0 ####[facility] MILLWNCLIA [id number] [place] [address] [place] ALP [Catalytic activity/Vol] 136 U/L High 38-113 [facility] Comment on above: Order Comment: Speci men Type: BLOOD SPECIMENOrdering Facility: [facility] Address: [address] [place] [address] Performed By: #### 2 4323-8, 2531-0 ####[facility]DRENFRANCISCOLIA [id number] [place] [address] [place] ALT [Catalytic activity/Vol] 23 U/L Normal 10-54 [facility] Comment on above: Order Comment: Speci men Type: BLOOD SPECIMENOrdering Facility: [facility] Address: [address] [place] [address] Performed By: #### 2 4323-8, 2531-0 ####[facility] MILLWNCLIA [id number] [place] [address] [place] Anion gap [Moles/Vol] 13 mmol/L Normal 8-15 [facility] Comment on above: Order Comment: Speci men Type: BLOOD SPECIMENOrdering Facility: [facility] Address: [address] [place] [address] Performed By: #### 2 4323-8, 2532-0 ####[facility] MILLWNCLIA [id number] [place] [address] [place] AST [Catalytic activity/Vol] 30 U/L Normal 14-40 [facility] Comment on above: Order Comment: Speci men Type: BLOOD SPECIMENOrdering Facility: [facility] Address: [address] [place] [address] Performed By: #### 2 4323-8, 2532-0 ####[facility] H[facility]ITALNOÉ [id number] [place] [address] [place] Bilirubin [Mass/Vol] 0.3 mg/dL Normal 0.2-1.3 [facility] Comment on above: Order Comment: Speci men Type: BLOOD SPECIMENOrdering Facility: [facility] Address: [address] [place] [address] Performed By: #### 2 4323-8, 2-0 ####[facility]ILDRENSARAHI [id number] [place] [address] [place] Calcium [Mass/Vol] 9.7 mg/dL Normal 8.5-10.2 [facility] Comment on above: Order Comment: Speci men Type: BLOOD SPECIMENOrdering Facility: [facility] Address: [address] [place] [address] Performed By: #### 2 4323-8, 2-0 ####[facility]ILDRENSARAHI [id number] [place] [address] [place] Chloride [Moles/Vol] 101 mmol/L Normal 98-107 [facility] Comment on above: Order Comment: Speci men Type: BLOOD SPECIMENOrdering Facility: [facility] Address: [address] [place] [address] Performed By: #### 2 4323-8, 2532-0 ####[facility]DRENSARAHI [id number] [place] [address] [place] CO2 [Moles/Vol] 28 mmol/L Normal 22-30 [facility] Comment on above: Order Comment: Speci men Type: BLOOD SPECIMENOrdering Facility: [facility] Address: [address] [place] [address] Performed By: #### 2 4323-8, 0 ####[facility] [id number] [place] [address] [place] Creatinine [Mass/Vol] 3.96 mg/dL High 0.73-1.22 [facility] Comment on above: Order Comment: Speci men Type: BLOOD SPECIMENOrdering Facility: [facility] Address: [address] [place] [address] Performed By: #### 2 43238, ####[facility] [id number] [place] [address] [place] Creatinine and Glomerular filtration rate.predicted panel (S/P/Bld) 15 mL/min/1.73m??? Low >=60 [facility] Comment on above: Order Comment: Speci men Type: BLOOD SPECIMENOrdering Facility: [facility] Address: [address] [place] [address] Result Comment: Radha mated Glomerular Filtration Rate [...] actual GFR. Performed By: #### 2 4323-8, 0 ####[facility] [id number] [place] [address] [place] Glucose [Mass/Vol] 99 mg/dL Normal 74-99 [facility] Comment on above: Order Comment: Speci men Type: BLOOD SPECIMENOrdering Facility: [facility] Address: [address] [place] [address] Result Comment: The [employer] Diabetes Association (ADA) provides guidance for cutoff [...] Standards of Medical Care in Diabetes 2016, [employer] Diabetes Association. Diabetes Care. 2016.39(Suppl 1). Performed By: #### 2 4323-8, 0 ####[facility] [id number] [place] [address] [place] Potassium [Moles/Vol] 3.8 mmol/L Normal 3.7-5.1 [facility] Comment on above: Order Comment: Speci men Type: BLOOD SPECIMENOrdering Facility: [facility] Address: [address] [place] [address] Performed By: #### 2 4323-8, ####[facility] [id number] [place] [address] [place] Protein [Mass/Vol] 6.1 g/dL Low 6.3-8.0 [facility] Comment on above: Order Comment: Speci men Type: BLOOD SPECIMENOrdering Facility: [facility] Address: [address] [place] [address] Performed By: #### 2 4323-8, 0 ####[facility] [id number] [place] [address] [place] Sodium [Moles/Vol] 142 mmol/L Normal 136-144 [facility] Comment on above: Order Comment: Speci men Type: BLOOD SPECIMENOrdering Facility: [facility] Address: [address] [place] [address] Performed By: #### 2 4323-8, 2532-0 ####[facility] BELLA [id number] [place] [address] [place] [facility] Urea nitrogen [Mass/Vol] 50 mg/dL High 9-24 [facility] Comment on above: Order Comment: Speci men Type: BLOOD SPECIMENOrdering Facility: [facility] Address: [address] [place] [address] Performed By: #### 2 4323-8, 2532-0 ####[facility]ILDRENNCPASCUALA [id number] [address] IMMUNOFIXATION SCREEN, SERUM on 11-26-2024 INTERPRETATION ([facility]) Normal [facility] Comment on above: Order Comment: Speci men Type: BLOOD SPECIMENOrdering Facility: [facility] Address: [address] [place] [address] Performed By: #### I FESC ####[facility] LABCLIA [id number] [address] STATES [facility] MPA RESULT A poorly defined reg ion of restricted mobility is present that may represent an M protein. Abnormal No M protein is identified. [facility] Comment on above: Order Comment: Speci men Type: BLOOD SPECIMENOrdering Facility: [facility] Address: [address] [place] [address] Performed By: #### I FESC ####[facility] LABCLIA [id number] [place] [id number] [facility] REVIEW (MPA) Reviewed by Leticia Amador MD Normal [facility] Comment on above: Order Comment: Speci men Type: BLOOD SPECIMENOrdering Facility: [facility] Address: [address] [place] [address] Performed By: #### I FESC ####[facility] LABCLIA [id number] [place] [address] [place] IMMUNOGLOBULINS,IGG,IGA,IGMo n 11-26-2024 IgA [Mass/Vol] 17 mg/dL Low 70-400 [facility] Comment on above: Order Comment: Speci men Type: BLOOD SPECIMENOrdering Facility: [facility] Address: [address] [place] [address] Performed By: #### S ERIMM ####[facility] LABCLIA [id number] [place] [address] [place] IgG [Mass/Vol] 283 mg/dL Low 700-1600 [facility] Comment on above: Order Comment: Speci men Type: BLOOD SPECIMENOrdering Facility: [facility] Address: [address] [place] [address] Performed By: #### S ERIMM ####[facility] LABCLIA [id number] [place] [address] [place] IgM [Mass/Vol] 33 mg/dL Low 40-230 [facility] Comment on above: Order Comment: Speci men Type: BLOOD SPECIMENOrdering Facility: [facility] Address: [address] [place] [address] Performed By: #### S ERIMM ####[facility] LABCLIA [id number] [place] [address] [place] KAPPA/EMERY,FREE,SERon 2024 Immunoglobulin light chains.kappa.free (S) [Mass/Vol] 31.5 mg/L High 3.3-19.4 [facility] Comment on above: Order Comment: Speci men Type: BLOOD SPECIMENOrdering Facility: [facility] Address: [address] [place] [address] Result Comment: Rare ly, increased serum free light chains levels may not be detected or accurately quantified due to prozone phenomenon or in high viscosity samples using this immunoturbidimetric assay. Correlation with other laboratory results and clinical findings is recommended.The [place] Free Light Chain was performed using the [employer] immunoturbidimetric method. Result obtained with different assay methods or kits cannot be used interchangeably. Performed By: #### K LFRS ####[facility] [id number] [place] [address] [place] Immunoglobulin light chains.kappa/Immunoglob ulin light chains.lambda (S) [Mass ratio] 1.91 High 0.26-1.65 [facility] Comment on above: Order Comment: Speci men Type: BLOOD SPECIMENOrdering Facility: [facility] Address: [address] [place] [address] Performed By: #### K LFRS ####[facility] CENTERIA [id number] [place] [address] [place] Immunoglobulin light chains.lambda.free [Mass/Vol] 16.5 mg/L Normal 5.7-26.3 [facility] Comment on above: Order Comment: Speci men Type: BLOOD SPECIMENOrdering Facility: [facility] Address: [address] [place] [address] Result Comment: Rare ly, increased serum free [...] used interchangeably. Performed By: #### K LFRS ####[facility] [id number] [place] [address] [place] LDH SerPl-cCncon 11-26-2024 LDH [Catalytic activity/Vol] 244 U/L High 135-225 [facility] Comment on above: Order Comment: Speci men Type: BLOOD SPECIMENOrdering Facility: [facility] Address: [address] [place] [address] Performed By: #### 2 4323-8, 2532-0 ####[facility] [id number] [place] [address] [place] PROTEIN ELECTROPHORESIS SERU M (P)on 11-26-2024 Albumin [Mass/Vol] 3.86 g/dL Normal 3.43-5.41 [facility] Comment on above: Order Comment: Speci men Type: BLOOD SPECIMENOrdering Facility: [facility] Address: [address] [place] [address] Performed By: #### L [id number] ####[facility] [id number] [place] [address] [place] Alpha 1 globulin Elph [Mass/Vol] 0.32 g/dL Normal 0.18-0.43 [facility] Comment on above: Order Comment: Speci men Type: BLOOD SPECIMENOrdering Facility: [facility] Address: [address] [place] [address] Performed By: #### L [id number] ####[facility] CENTERIA [id number] [place] [address] [place] Alpha 2 globulin Elph [Mass/Vol] 0.67 g/dL Normal 0.42-0.98 [facility] Comment on above: Order Comment: Speci men Type: BLOOD SPECIMENOrdering Facility: [facility] Address: [address] [place] [address] Performed By: #### L [id number] ####[facility] [id number] [place] [address] [place] Beta globulin Elph [Mass/Vol] 0.54 g/dL Low 0.61-1.17 [facility] Comment on above: Order Comment: Speci men Type: BLOOD SPECIMENOrdering Facility: [facility] Address: [address] [place] [address] Performed By: #### L [id number] ####[facility] [id number] [place] [address] [place] Gamma globulin Elph [Mass/Vol] 0.22 g/dL Low 0.53-1.51 [facility] Comment on above: Order Comment: Speci men Type: BLOOD SPECIMENOrdering Facility: [facility] Address: [address] [place] [address] Performed By: #### L [id number] ####[facility] LABCL[facility] [id number] [address] [address] [place] [facility] INTERPRETATION COMMENT FOR PROTEIN ELECTROPHORESIS Hypogammaglobulinemia is present, which can be seen in the setting of monoclonal gammopathy. If clinically indicated, monoclonal protein analysis and serum free light chain analysis are suggested to evaluate further for monoclonal gammopathy. Normal [facility] Comment on above: Order Comment: Speci men Type: BLOOD SPECIMENOrdering Facility: [facility] Address: [address] [place] [address] Performed By: #### L [id number] ####[facility] LABCL[facility] [id number] [address] [place] M-PROTEIN LOCATION Normal [facility] Comment on above: Order Comment: Speci men Type: BLOOD SPECIMENOrdering Facility: [facility] Address: [address] [place] [address] Result Comment: Not Applicable. Performed By: #### L [id number] ####[facility] LABCLIA [id number] [address] [address] [place] Protein Fractions [Interp] No definitive M protein is identified on protein electrophoresis. Normal No definitive M protein is identified on protein electrophores is. [facility] Comment on above: Order Comment: Speci men Type: BLOOD SPECIMENOrdering Facility: [facility] Address: [address] [place], [place] [address] Performed By: #### L [id number] ####[facility] LABCL[facility] [id number] [address] [address] [place] Protein.monoclonal Elph [Mass/Vol] 0.00 g/dL Normal <=0.00 [facility] Comment on above: Order Comment: Speci men Type: BLOOD SPECIMENOrdering Facility: [facility] Address: [address] [place] [address] Performed By: #### L [id number] ####[facility] [id number] [place] [id number] [place] SPE STAFF REVIEW Reviewed by Devora Cifuentes M.D., Ph.D [facility] Comment on above: Order Comment: Speci men Type: BLOOD SPECIMENOrdering Facility: [facility] Address: [address] [place] [address] Performed By: #### L [id number] ####[facility] [id number] [place] [id number] [place] Prot SerPl-mCncon 11-26-2024 Protein [Mass/Vol] 5.6 g/dL Low 6.3-8.0 [facility] Comment on above: Order Comment: Speci men Type: BLOOD SPECIMENOrdering Facility: [facility] Address: [address] [place] [address] Performed By: #### 2 885-2, 1951-09 ####[facility] CENTERIA [id number] [place] [address] [place] CNPNon 11-22-2024 CNPN Normal [facility] MR/BMS.BVSon 11-07-2024 MR/BMS.BVS [facility] [address] [place] [address] OFFICE VISIT Date of Service: 11/07/24 MR#: [id number] Acct: [id number] Name: EDGAR HENDERSON Rep #: [id number] : 1950 Provider: Dr. Alvarado Brody MD Age/Sex: 74/M Location[facility] Status: Signed Intake Vital Signs 12/18/23 09:54 [...] in c (more content not included)... Normal [facility] CNOVon 10-10-2024 CNOV Normal [facility] FAD18ha 10-10-2024 ECG01 Normal [facility] Dialysis Vein Map PRE-OP JENNIFER ATon 10-08-2024 Dialysis Vein Map PRE-OP BILAT [facility] [address] [place] [address] Dialysis Vein Map PRE-OP BILAT 10/08/24 1246 MR#: [id number] Acct: [id number] Name: EDGAR HENDERSON Rep #: [id number] : 1950 74 From: Alvarado Brody MD Attending Dr: PEGGY Hall Status: REG CLI Ordering Dr: Shannen Park Date: 10/08/24 Location: [facility] Sex: M C Admitted: Reason For Study: [...] Paresh Aguilar RVT and Student ??? 10/08/24 1625 Date Alvarado Brody MD CC: PEGGY Hall; Dr. 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 [address] [place] [address] OFFICE VISIT Date of Service: 09/05/24 MR#: [id number] Acct: [id number] Name: EDGAR HENDERSON Rep #: [id number] : 1950 Provider: PEGGY Hall Age/Sex: 73/M Location: [facility] Status: Signed Intake Vital Signs 12/18/23 09:54 [...] 160 mg PO BID 09/05/24 09/05/24 History (Bettina) Have you fallen in the past year?: Yes PFSH Medical History (Updated 09/05/24 @ 11:03 by [...] of dialysis access creation as referred from [facility] Dr. Jenkins. He has been [...] No headache(s) (more content not included)... Normal [facility] B2 Microglob SerPl-ncon Wobh-3-Lphfmaxennbij [Mass/Vol] 15.0 ug/mL High <3.1 [facility] Comment on above: Order Comment: Speci men Type: BLOOD SPECIMENOrdering Facility: [facility] Address: [address] [place] [address] Result Comment: Beta -2 Microglobulin test is performed using the [employer] immunoturbidimetric method. Results obtained with different methods or kits cannot be used interchangeably. Performed By: #### 2 885-2, 19510-19 ####[facility] [id number] [facility] [place] [address] [place] CBC W Auto Differential pane l (Bld)on 09-03-2024 Basophils (Bld) [#/Vol] 0.06 10*3/uL Normal <0.11 [facility] Comment on above: Order Comment: Speci men Type: BLOOD SPECIMENOrdering Facility: [facility] Address: [address] [place] [address] Performed By: #### 5 7021-8 ####[facility] [id number] [place] [address] [place] Basophils/100 WBC (Bld) 1.1 % Normal C [facility] Comment on above: Order Comment: Speci men Type: BLOOD SPECIMENOrdering Facility: [facility] Address: [address] [place] [address] Performed By: #### 5 7021-8 ####[facility] [id number] [place] [address] [place] Differential cell count method Nom (Bld) Auto Normal [facility] Comment on above: Order Comment: Speci men Type: BLOOD SPECIMENOrdering Facility: [facility] Address: [address] [place] [address] Performed By: #### 5 7021-8 ####[facility] [id number] [place] [address] [place] Eosinophils (Bld) [#/Vol] 0.14 10*3/uL Normal <0.46 [facility] Comment on above: Order Comment: Speci men Type: BLOOD SPECIMENOrdering Facility: [facility] Address: [address] [place] [address] Performed By: #### 5 7021-8 ####[facility] RADHANCLIA [id number] [place] [address] [place] Eosinophils/100 WBC (Bld) 2.7 % Normal [facility] Comment on above: Order Comment: Speci men Type: BLOOD SPECIMENOrdering Facility: [facility] Address: [address] [place] [address] Performed By: #### 5 7021-8 ####[facility] MANJULADENVERNCLIA [id number] [place] [address] [place] Erythrocyte distribution width (RBC) [Ratio] 17.1 % High 11.5-15.0 [facility] Comment on above: Order Comment: Speci men Type: BLOOD SPECIMENOrdering Facility: [facility] Address: [address] [place] [address] Performed By: #### 5 7021-8 ####[facility] [id number] [place] [address] [place] Hematocrit (Bld) [Volume fraction] 35.1 % Low 39.0-51.0 [facility] Comment on above: Order Comment: Speci men Type: BLOOD SPECIMENOrdering Facility: [facility] Address: [address] [place] [address] Performed By: #### 5 7021-8 ####[facility]CL[facility] [id number] [place] [address] [place] Hemoglobin (Bld) [Mass/Vol] 11.5 g/dL Low 13.0-17.0 [facility] Comment on above: Order Comment: Speci men Type: BLOOD SPECIMENOrdering Facility: [facility] Address: [address] [place] [address] Performed By: #### 5 7021-8 ####[facility] [id number] [place] [address] [place] Immature granulocytes (Bld) [#/Vol] 0.03 10*3/uL Normal <0.10 [facility] Comment on above: Order Comment: Speci men Type: BLOOD SPECIMENOrdering Facility: [facility] Address: [address] [place] [address] Performed By: #### 5 7021-8 ####[facility] [id number] [place] [address] [place] Immature granulocytes/100 WBC (Bld) 0.6 % Normal [facility] Comment on above: Order Comment: Speci men Type: BLOOD SPECIMENOrdering Facility: [facility] Address: [address] [place] [address] Performed By: #### 5 7021-8 ####[facility] [id number] [place] [address] [place] Lymphocytes (Bld) [#/Vol] 0.42 10*3/uL Low 1.00-4.00 [facility] Comment on above: Order Comment: Speci men Type: BLOOD SPECIMENOrdering Facility: [facility] Address: [address] [place] [address] Performed By: #### 5 7021-8 ####[facility] [id number] [place] [address] [place] Lymphocytes/100 WBC (Bld) 8.0 % Normal [facility] Comment on above: Order Comment: Speci men Type: BLOOD SPECIMENOrdering Facility: [facility] Address: [address] [place] [address] Performed By: #### 5 7021-8 ####[facility] [id number] [place] [address] [place] MCH (RBC) [Entitic mass] 34.4 pg High 26.0-34.0 [facility] Comment on above: Order Comment: Speci men Type: BLOOD SPECIMENOrdering Facility: [facility] Address: [address] [place] [address] Performed By: #### 5 7021-8 ####[facility] [id number] [place] [address] [place] MCHC (RBC) [Mass/Vol] 32.8 g/dL Normal 30.5-36.0 [facility] Comment on above: Order Comment: Speci men Type: BLOOD SPECIMENOrdering Facility: [facility] Address: [address] [place] [address] Performed By: #### 5 7021-8 ####[facility] [id number] [place] [address] [place] MCV (RBC) [Entitic vol] 105.1 fL High 80.0-100.0 C [facility] Comment on above: Order Comment: Speci men Type: BLOOD SPECIMENOrdering Facility: [facility] Address: [address] [place] [address] Performed By: #### 5 7021-8 ####[facility] [id number] [place] [address] [place] Monocytes (Bld) [#/Vol] 0.80 10*3/uL Normal <0.87 [facility] Comment on above: Order Comment: Speci men Type: BLOOD SPECIMENOrdering Facility: [facility] Address: [address] [place] [address] Performed By: #### 5 7021-8 ####[facility] [id number] [place] [address] [place] Monocytes/100 WBC (Bld) 15.2 % Normal C [facility] Comment on above: Order Comment: Speci men Type: BLOOD SPECIMENOrdering Facility: [facility] Address: [address] [place] [address] Performed By: #### 5 7021-8 ####[facility] MILLWNCLIA [id number] [place] [address] [place] Neutrophils (Bld) [#/Vol] 3.82 10*3/uL Normal 1.45-7.50 [facility] Comment on above: Order Comment: Speci men Type: BLOOD SPECIMENOrdering Facility: [facility] Address: [address] [place] [address] Performed By: #### 5 7021-8 ####[facility] MILLWNCLIA [id number] [place] [address] [place] Neutrophils/100 WBC (Bld) 72.4 % Normal [facility] Comment on above: Order Comment: Speci men Type: BLOOD SPECIMENOrdering Facility: [facility] Address: [address] [place] [address] Performed By: #### 5 7021-8 ####[facility] [id number] [place] [address] [place] Nucleated RBC (Bld) [#/Vol] 10*3/uL Normal <0.01 [facility] Comment on above: Order Comment: Speci men Type: BLOOD SPECIMENOrdering Facility: [facility] Address: [address] [place] [address] Performed By: #### 5 7021-8 ####[facility] MILLTOWNCLIA [id number] [place] [address] [place] Nucleated RBC/100 WBC (Bld) [Ratio] 0.0 /100 WBC Normal [facility] Comment on above: Order Comment: Speci men Type: BLOOD SPECIMENOrdering Facility: [facility] Address: [address] [place] [address] Performed By: #### 5 7021-8 ####[facility] MILLWNCLIA [id number] [place] [address] [place] Platelet mean volume (Bld) [Entitic vol] 10.0 fL Normal 9.0-12.7 [facility] Comment on above: Order Comment: Speci men Type: BLOOD SPECIMENOrdering Facility: [facility] Address: [address] [place] [address] Performed By: #### 5 7021-8 ####[facility]DRENSARAHI [id number] [place] [address] [place] Platelets (Bld) [#/Vol] 148 10*3/uL Low 150-400 [facility] Comment on above: Order Comment: Speci men Type: BLOOD SPECIMENOrdering Facility: [facility] Address: [address] [place] [address] Performed By: #### 5 7021-8 ####[facility]ILDRENSRAAHI [id number] [place] [address] [place] RBC (Bld) [#/Vol] 3.34 10*6/uL Low 4.20-6.00 [facility] Comment on above: Order Comment: Speci men Type: BLOOD SPECIMENOrdering Facility: [facility] Address: [address] [place] [address] Performed By: #### 5 7021-8 ####[facility]ILDRENDAISYA [id number] [place] [address] [place] WBC (Bld) [#/Vol] 5.27 10*3/uL Normal 3.70-11.00 [facility] Comment on above: Order Comment: Speci men Type: BLOOD SPECIMENOrdering Facility: [facility] Address: [address] [place] [address] Performed By: #### 5 7021-8 ####[facility]CL[facility] [id number] [place] [address] [place] CNOVSPon 09-03-2024 CNOVSP Normal [facility] Comprehensive metabolic 2000 panelon 09-03-2024 Albumin [Mass/Vol] 4.4 g/dL Normal 3.9-4.9 [facility] Comment on above: Order Comment: Speci men Type: BLOOD SPECIMENOrdering Facility: [facility] Address: [address] [place] [address] Performed By: #### 2 532-0, 19715-1, 2777-1 ####[facility] MILLTOWNCLIA [id number] [place] [address] [place] ALP [Catalytic activity/Vol] 144 U/L High 38-113 [facility] Comment on above: Order Comment: Speci men Type: BLOOD SPECIMENOrdering Facility: [facility] Address: [address] [place] [address] Performed By: #### 2 532-0, 92451-4, 2777-1 ####[facility]ILDRENFRANCISCOLIA [id number] [place] [address] [place] ALT [Catalytic activity/Vol] 24 U/L Normal 10-54 [facility] Comment on above: Order Comment: Speci men Type: BLOOD SPECIMENOrdering Facility: [facility] Address: [address] [place] [address] Performed By: #### 2 532-0, 81447-1, 2777-1 ####[facility] MILLTOWNCLIA [id number] [place] [address] [place] Anion gap [Moles/Vol] 13 mmol/L Normal 8-15 [facility] Comment on above: Order Comment: Speci men Type: BLOOD SPECIMENOrdering Facility: [facility] Address: [address] [place] [address] Performed By: #### 2 532-0, 57786-5, 2777-1 ####[facility] MILLTOWNCLIA [id number] [place] [address] [place] AST [Catalytic activity/Vol] 27 U/L Normal 14-40 [facility] Comment on above: Order Comment: Speci men Type: BLOOD SPECIMENOrdering Facility: [facility] Address: [address] [place] [address] Performed By: #### 2 532-0, 91305-0, 2777-1 ####[facility] MANJULADENVERDAISYA [id number] [place] [address] [place] Bilirubin [Mass/Vol] 0.4 mg/dL Normal 0.2-1.3 [facility] Comment on above: Order Comment: Speci men Type: BLOOD SPECIMENOrdering Facility: [facility] Address: [address] [place] [address] Performed By: #### 2 532-0, 75101-7, 2777-1 ####[facility] [id number] [place] [address] [place] Calcium [Mass/Vol] 9.9 mg/dL Normal 8.5-10.2 [facility] Comment on above: Order Comment: Speci men Type: BLOOD SPECIMENOrdering Facility: [facility] Address: [address] [place] [address] Performed By: #### 2 532-0, 42054-2, 2777-1 ####[facility]DA[facility] [id number] [place] [address] [place] Chloride [Moles/Vol] 99 mmol/L Normal 98-107 [facility] Comment on above: Order Comment: Speci men Type: BLOOD SPECIMENOrdering Facility: [facility] Address: [address] [place] [address] Performed By: #### 2 532-0, 15933-0, 2777-1 ####[facility] MANJULASUMIWNCLIA [id number] [place] [address] [place] CO2 [Moles/Vol] 31 mmol/L High 22-30 [facility] Comment on above: Order Comment: Jasmina allen Type: BLOOD SPECIMENOrdering Facility: [facility] Address: [address] [place] [address] Performed By: #### 2 532-0, 85632-4, 277-1 ####[facility] WESTDinorah [id number] [place] [address] [place] Creatinine [Mass/Vol] 3.77 mg/dL High 0.73-1.22 [facility] Comment on above: Order Comment: Speci tiffany Type: BLOOD SPECIMENOrdering Facility: [facility] Address: [address] [place] [address] Performed By: #### 2 532-0, 13646-6, 2776-09 ####[facility] [id number] [place] [address] [place] Creatinine and Glomerular filtration rate.predicted panel (S/P/Bld) 16 mL/min/1.73m??? Low >=60 [facility] Comment on above: Order Comment: Jasmina allen Type: BLOOD SPECIMENOrdering Facility: [facility] Address: [address] [place] [address] Result Comment: Radha mated Glomerular Filtration Rate [...] actual GFR. Performed By: #### 2 532-0, 84765-1, 2776-09 ####[facility]DR[facility]CL[facility] [id number] [place] [address] [place] Glucose [Mass/Vol] 69 mg/dL Low 74-99 [facility] Comment on above: Order Comment: Speci men Type: BLOOD SPECIMENOrdering Facility: [facility] Address: [address] [place] [address] Result Comment: The [employer] Diabetes [employer] (ADA) provides guidance for cutoff [...] Standards of Medical Care in Diabetes 2016, [employer]. Diabetes Care. 2016.39(Suppl 1). Performed By: #### 2 532-0, 39660-3, 2777- ####[facility]ENSAR[facility] [id number] [place] [address] [place] Potassium [Moles/Vol] 4.1 mmol/L Normal 3.7-5.1 [facility] Comment on above: Order Comment: Jasmina allen Type: BLOOD SPECIMENOrdering Facility: [facility] Address: [address] [place] [address] Performed By: #### 2 532-0, 15490-4, 2777- ####[facility] [id number] [place] [address] [place] Protein [Mass/Vol] 6.2 g/dL Low 6.3-8.0 [facility] Comment on above: Order Comment: Jasmina allen Type: BLOOD SPECIMENOrdering Facility: [facility] Address: [address] [place] [address] Performed By: #### 2 532-0, 39114-4, 2777- ####[facility]CL[facility] [id number] [place] [address] [place] Sodium [Moles/Vol] 143 mmol/L Normal 136-144 [facility] Comment on above: Order Comment: Speci men Type: BLOOD SPECIMENOrdering Facility: [facility] Address: [address] [place] [address] Performed By: #### 2 532-0, 22108-1, 2777-1 ####[facility] [id number] [place] [address] [place] Urea nitrogen [Mass/Vol] 48 mg/dL High 9-24 [facility] Comment on above: Order Comment: Speci men Type: BLOOD SPECIMENOrdering Facility: [facility] Address: [address] [place] [address] Performed By: #### 2 532-0, 78833-2, 2777-1 ####[facility] [id number] [place] [address] [place] IMMUNOFIXATION SCREEN, SERUM on 09-03-2024 INTERPRETATION (MPA) Normal [facility] Comment on above: Order Comment: Speci men Type: BLOOD SPECIMENOrdering Facility: [facility] Address: [address] [place] [address] Performed By: #### I FES ####[facility] [id number] [place] [address] [place] MPA RESULT A poorly defined reg ion of restricted mobility is present that may represent an M protein. Abnormal No M protein is identified. [facility] Comment on above: Order Comment: Speci men Type: BLOOD SPECIMENOrdering Facility: [facility] Address: [address] [place] [address] Performed By: #### I FES ####[facility] [id number] [place] [id number] [place] STAFF REVIEW (MPA) Reviewed by Devora Cifuentes M.D., Ph.D Normal [facility] Comment on above: Order Comment: Speci men Type: BLOOD SPECIMENOrdering Facility: [facility] Address: [address] [place] [address] Performed By: #### I FESC ####[facility] LABCL[facility] [id number] [place] [address] [place] IMMUNOGLOBULINS,IGG,IGA,IGMo n 09-03-2024 IgA [Mass/Vol] 18 mg/dL Low 70-400 [facility] Comment on above: Order Comment: Speci men Type: BLOOD SPECIMENOrdering Facility: [facility] Address: [address] [place] [address] Performed By: #### S ERIMM ####[facility] LABCL[facility] [id number] [place] [address] [place] IgG [Mass/Vol] 304 mg/dL Low 700-1600 [facility] Comment on above: Order Comment: Speci men Type: BLOOD SPECIMENOrdering Facility: [facility] Address: [address] [place] [address] Performed By: #### S ERIMM ####[facility] LABCL[facility] [id number] [place] [address] [place] IgM [Mass/Vol] 30 mg/dL Low 40-230 [facility] Comment on above: Order Comment: Speci men Type: BLOOD SPECIMENOrdering Facility: [facility] Address: [address] [place] [address] Performed By: #### S ERIMM ####[facility] LABCLIA [id number] [place] [address] [place] KAPPA/EMERY,FREE,SERon 2023 Immunoglobulin light chains.kappa.free (S) [Mass/Vol] 31.3 mg/L High 3.3-19.4 [facility] Comment on above: Order Comment: Speci men Type: BLOOD SPECIMENOrdering Facility: [facility] Address: [address] [place] [address] Result Comment: Rare ly, increased serum free light chains levels may not be detected or accurately quantified due to prozone phenomenon or in high viscosity samples using this immunoturbidimetric assay. Correlation with other laboratory results and clinical findings is recommended.The [place] Free Light Chain was performed using the [employer] immunoturbidimetric method. Result obtained with different assay methods or kits cannot be used interchangeably. Performed By: #### K LFRS ####[facility] LABCL[facility] [id number] [place] [address] [place] Immunoglobulin light chains.kappa/Immunoglob ulin light chains.lambda (S) [Mass ratio] 2.05 High 0.26-1.65 [facility] Comment on above: Order Comment: Speci men Type: BLOOD SPECIMENOrdering Facility: [facility] Address: [address] [place] [address] Performed By: #### K LFRS ####[facility] LABCL[facility] [id number] [place] [address] [place] Immunoglobulin light chains.lambda.free [Mass/Vol] 15.3 mg/L Normal 5.7-26.3 [facility] Comment on above: Order Comment: Speci men Type: BLOOD SPECIMENOrdering Facility: [facility] Address: [address] [place] [address] Result Comment: Rare ly, increased serum free [...] used interchangeably. Performed By: #### K LFRS ####[facility] LABCL[facility] [id number] [place] [address] [place] LDH SerPl-cCncon 09-03-2024 LDH [Catalytic activity/Vol] 258 U/L High 135-225 [facility] Comment on above: Order Comment: Speci men Type: BLOOD SPECIMENOrdering Facility: [facility] Address: [address] [place] [address] Result Comment: Hemo lysis present. The origin of the hemolysis, in vitro versus an in vivo hemolytic process, cannot be distinguished via this assay alone. In vitro hemolysis may lead to non-physiological (spurious) elevation in lactate dehydrogenase (LDH) results. Theresult should be interpreted in context of the clinical setting and other test results. Suggest reorder as clinically indicated. Performed By: #### 2 532-0, 04075-5, 2777-1 ####[facility] [id number] [place] [address] [place] PROTEIN ELECTROPHORESIS SERU M (P)on 09-03-2024 Albumin [Mass/Vol] 4.05 g/dL Normal 3.43-5.41 [facility] Comment on above: Order Comment: Speci men Type: BLOOD SPECIMENOrdering Facility: [facility] Address: [address] [place] [address] Performed By: #### L [id number] ####[facility] [id number] [place] [address] [place] Alpha 1 globulin Elph [Mass/Vol] 0.33 g/dL Normal 0.18-0.43 [facility] Comment on above: Order Comment: Speci men Type: BLOOD SPECIMENOrdering Facility: [facility] Address: [address] [place] [address] Performed By: #### L [id number] ####[facility] [id number] [place] [address] [place] Alpha 2 globulin Elph [Mass/Vol] 0.80 g/dL Normal 0.42-0.98 [facility] Comment on above: Order Comment: Speci men Type: BLOOD SPECIMENOrdering Facility: [facility] Address: [address] [place] [address] Performed By: #### L [id number] ####[facility] [id number] [place] [id number] [place] Beta globulin Elph [Mass/Vol] 0.48 g/dL Low 0.61-1.17 [facility] Comment on above: Order Comment: Speci men Type: BLOOD SPECIMENOrdering Facility: [facility] Address: [address] [place] [address] Performed By: #### L [id number] ####[facility] LABCL[facility] [id number] [place] [address] [place] Gamma globulin Elph [Mass/Vol] 0.24 g/dL Low 0.53-1.51 [facility] Comment on above: Order Comment: Speci men Type: BLOOD SPECIMENOrdering Facility: [facility] Address: [address] [place] [address] Performed By: #### L [id number] ####[facility] LABCL[facility] [id number] [place] [address] [place] INTERPRETATION COMMENT FOR PROTEIN ELECTROPHORESIS Normal [facility] Comment on above: Order Comment: Speci men Type: BLOOD SPECIMENOrdering Facility: [facility] Address: [address] [place] [address] Performed By: #### L [id number] ####[facility] LABCL[facility] [id number] [place] [address] [place] M-PROTEIN LOCATION Normal [facility] Comment on above: Order Comment: Speci men Type: BLOOD SPECIMENOrdering Facility: [facility] Address: [address] [place] [address] Result Comment: Not Applicable. Performed By: #### L [id number] ####[facility] LABCL[facility] [id number] [place] [address] [place] Protein Fractions [Interp] An atypical region of restricted mobility is identified on protein electrophoresis. Abnormal No definitive M protein is identified on protein electrophores is. [facility] Comment on above: Order Comment: Speci men Type: BLOOD SPECIMENOrdering Facility: [facility] Address: [address] [place] [address] Performed By: #### L [id number] ####[facility] LABCL[facility] [id number] [place] [address] [place] Protein.monoclonal Elph [Mass/Vol] 0.00 g/dL Normal <=0.00 [facility] Comment on above: Order Comment: Speci men Type: BLOOD SPECIMENOrdering Facility: [facility] Address: [address] [place] [address] Performed By: #### L [id number] ####[facility] [id number] [place] [address] [place] SPE STAFF REVIEW Reviewed by Devora Cifuentes M.D., Ph.D Normal [facility] Comment on above: Order Comment: Speci men Type: BLOOD SPECIMENOrdering Facility: [facility] Address: [address] [place] [address] Performed By: #### L [id number] ####[facility] [id number] [place] [id number] [place] Phosphate SerPl-mCncon 09-03 Phosphate [Mass/Vol] 4.2 mg/dL Normal 2.7-4.8 [facility] Comment on above: Order Comment: Speci men Type: BLOOD SPECIMENOrdering Facility: [facility] Address: [address] [place] [address] Performed By: #### 2 532-0, 36592-8, 2777-1 ####[facility] [id number] [place] [address] [place] Prot SerPl-mCncon 09-03-2024 Protein [Mass/Vol] 5.9 g/dL Low 6.3-8.0 [facility] Comment on above: Order Comment: Speci men Type: BLOOD SPECIMENOrdering Facility: [facility] Address: [address] [place] [address] Performed By: #### 2 885-2, 1951-09 ####[facility] LABCL[facility] [id number] [place] [address] [place] B2 Microglob SerPl-mCncon Gbmh-6-Srmjmxojlnaib [Mass/Vol] 16.6 ug/mL High <3.1 [facility] Comment on above: Order Comment: Speci men Type: BLOOD SPECIMENOrdering Facility: [facility] Address: [address] [place] [address] Result Comment: Beta -2 Microglobulin test is performed using the [employer] immunoturbidimetric method. Results obtained with different methods or kits cannot be used interchangeably. Performed By: #### 2 885-2, 1951-09 ####[facility] LABCL[facility] [id number] [place] [address] [place] CBC W Auto Differential pane l (Bld)on 08-08-2024 Basophils (Bld) [#/Vol] 0.08 10*3/uL Normal <0.11 [facility] Comment on above: Order Comment: Speci men Type: BLOOD SPECIMENOrdering Facility: [facility] Address: [address] [place] [address] Performed By: #### 5 7021-8 ####[facility] HOSPITALLIA [id number] [place] [address] [place] Basophils/100 WBC (Bld) 1.5 % Normal C [facility] Comment on above: Order Comment: Speci men Type: BLOOD SPECIMENOrdering Facility: [facility] Address: [address] [place] [address] Performed By: #### 5 7021-8 ####[facility] HOSPITALLIA [id number] [place] [address] [place] Differential cell count method Nom (Bld) Auto Normal [facility] Comment on above: Order Comment: Speci men Type: BLOOD SPECIMENOrdering Facility: [facility] Address: [address] [place] [address] Performed By: #### 5 7021-8 ####[facility] MANJULADENVERFRANCISCOA [id number] [place] [address] [place] Eosinophils (Bld) [#/Vol] 0.14 10*3/uL Normal <0.46 [facility] Comment on above: Order Comment: Speci men Type: BLOOD SPECIMENOrdering Facility: [facility] Address: [address] [place] [address] Performed By: #### 5 7021-8 ####[facility] [id number] [place] [address] [place] Eosinophils/100 WBC (Bld) 2.6 % Normal [facility] Comment on above: Order Comment: Speci men Type: BLOOD SPECIMENOrdering Facility: [facility] Address: [address] [place] [address] Performed By: #### 5 7021-8 ####[facility] [id number] [place] [address] [place] Erythrocyte distribution width (RBC) [Ratio] 16.1 % High 11.5-15.0 [facility] Comment on above: Order Comment: Speci men Type: BLOOD SPECIMENOrdering Facility: [facility] Address: [address] [place] [address] Performed By: #### 5 7021-8 ####[facility] HOSPITALLIA [id number] [place] [address] [place] Hematocrit (Bld) [Volume fraction] 37.5 % Low 39.0-51.0 [facility] Comment on above: Order Comment: Speci men Type: BLOOD SPECIMENOrdering Facility: [facility] Address: [address] [place] [address] Performed By: #### 5 7021-8 ####[facility] HOSPITALPASCUALA [id number] [place] [address] [place] Hemoglobin (Bld) [Mass/Vol] 12.0 g/dL Low 13.0-17.0 [facility] Comment on above: Order Comment: Speci men Type: BLOOD SPECIMENOrdering Facility: [facility] Address: [address] [place] [address] Performed By: #### 5 7021-8 ####[facility] [id number] [place] [address] [place] Immature granulocytes (Bld) [#/Vol] 0.03 10*3/uL Normal <0.10 [facility] Comment on above: Order Comment: Speci men Type: BLOOD SPECIMENOrdering Facility: [facility] Address: [address] [place] [address] Performed By: #### 5 7021-8 ####[facility] [id number] [place] [address] [place] Immature granulocytes/100 WBC (Bld) 0.6 % Normal [facility] Comment on above: Order Comment: Speci men Type: BLOOD SPECIMENOrdering Facility: [facility] Address: [address] [place] [address] Performed By: #### 5 7021-8 ####[facility] [id number] [place] [address] [place] Lymphocytes (Bld) [#/Vol] 0.42 10*3/uL Low 1.00-4.00 [facility] Comment on above: Order Comment: Speci men Type: BLOOD SPECIMENOrdering Facility: [facility] Address: [address] [place] [address] Performed By: #### 5 7021-8 ####[facility] HOSPITALLI [id number] [place] [address] [place] Lymphocytes/100 WBC (Bld) 7.9 % Normal [facility] Comment on above: Order Comment: Speci men Type: BLOOD SPECIMENOrdering Facility: [facility] [facility] Address: [address] [place] [address] Performed By: #### 5 7021-8 ####[facility] [id number] [place] [address] [place] MCH (RBC) [Entitic mass] 33.7 pg Normal 26.0-34.0 [facility] Comment on above: Order Comment: Speci men Type: BLOOD SPECIMENOrdering Facility: [facility] Address: [address] [place] [address] Performed By: #### 5 7021-8 ####[facility] [id number] [place] [address] [place] MCHC (RBC) [Mass/Vol] 32.0 g/dL Normal 30.5-36.0 [facility] Comment on above: Order Comment: Speci men Type: BLOOD SPECIMENOrdering Facility: [facility] Address: [address] [place] [address] Performed By: #### 5 7021-8 ####[facility] [id number] [place] [address] [place] MCV (RBC) [Entitic vol] 105.3 fL High 80.0-100.0 C [facility] Comment on above: Order Comment: Speci men Type: BLOOD SPECIMENOrdering Facility: [facility] Address: [address] [place] [address] Performed By: #### 5 7021-8 ####[facility] [id number] [place] [address] [place] Monocytes (Bld) [#/Vol] 0.68 10*3/uL Normal <0.87 [facility] Comment on above: Order Comment: Speci men Type: BLOOD SPECIMENOrdering Facility: [facility] Address: [address] [place] [address] Performed By: #### 5 7021-8 ####[facility] [id number] [place] [address] [place] Monocytes/100 WBC (Bld) 12.8 % Normal [facility] Comment on above: Order Comment: Speci men Type: BLOOD SPECIMENOrdering Facility: [facility] Address: [address] [place] [address] Performed By: #### 5 7021-8 ####[facility] [id number] [place] [address] [place] Neutrophils (Bld) [#/Vol] 3.97 10*3/uL Normal 1.45-7.50 [facility] Comment on above: Order Comment: Speci men Type: BLOOD SPECIMENOrdering Facility: [facility] Address: [address] [place] [address] Performed By: #### 5 7021-8 ####[facility] [id number] [place] [address] [place] Neutrophils/100 WBC (Bld) 74.6 % Normal [facility] Comment on above: Order Comment: Speci men Type: BLOOD SPECIMENOrdering Facility: [facility] Address: [address] [place] [address] Performed By: #### 5 7021-8 ####[facility] H[facility]ITALLIA [id number] [place] [address] [place] Nucleated RBC (Bld) [#/Vol] 10*3/uL Normal <0.01 [facility] Comment on above: Order Comment: Speci men Type: BLOOD SPECIMENOrdering Facility: [facility] Address: [address] [place] [address] Performed By: #### 5 7021-8 ####[facility] NASSAUTOWNCLIA [id number] [place] [address] [place] Nucleated RBC/100 WBC (Bld) [Ratio] 0.0 /100 WBC Normal [facility] Comment on above: Order Comment: Speci men Type: BLOOD SPECIMENOrdering Facility: [facility] Address: [address] [place] [address] Performed By: #### 5 7021-8 ####[facility] MANJULADENVERSARAHI [id number] [place] [address] [place] Platelet mean volume (Bld) [Entitic vol] 10.5 fL Normal 9.0-12.7 [facility] Comment on above: Order Comment: Speci men Type: BLOOD SPECIMENOrdering Facility: [facility] Address: [address] [place] [address] Performed By: #### 5 7021-8 ####[facility]ENFRANCISCODinorah [id number] [place] [address] [place] Platelets (Bld) [#/Vol] 160 10*3/uL Normal 150-400 [facility] Comment on above: Order Comment: Speci men Type: BLOOD SPECIMENOrdering Facility: [facility] Address: [address] [place] [address] Performed By: #### 5 7021-8 ####[facility] MANJULADENVERFRANCISCOLIA [id number] [place] [address] [place] RBC (Bld) [#/Vol] 3.56 10*6/uL Low 4.20-6.00 [facility] Comment on above: Order Comment: Speci men Type: BLOOD SPECIMENOrdering Facility: [facility] Address: [address] [place] [address] Performed By: #### 5 7021-8 ####[facility] [id number] [place] [address] [place] WBC (Bld) [#/Vol] 5.32 10*3/uL Normal 3.70-11.00 [facility] Comment on above: Order Comment: Speci men Type: BLOOD SPECIMENOrdering Facility: [facility] Address: [address] [place] [address] Performed By: #### 5 7021-8 ####[facility] NASSAUHUGOA [id number] [place] [address] [facility] Comprehensive metabolic 2000 panelon 08-08-2024 Albumin [Mass/Vol] 4.4 g/dL Normal 3.9-4.9 [facility] Comment on above: Order Comment: Speci men Type: BLOOD SPECIMENOrdering Facility: [facility] Address: [address] [place] [address] Performed By: #### 3 084-1, 2532-0, 25749-4 ####[facility] [id number] [place] [address] [place] ALP [Catalytic activity/Vol] 142 U/L High 38-113 [facility] Comment on above: Order Comment: Speci men Type: BLOOD SPECIMENOrdering Facility: [facility] Address: [address] [place] [address] Performed By: #### 3 084-1, 2532-0, 49474-0 ####[facility] [id number] [address] [place] [facility] ALT [Catalytic activity/Vol] 23 U/L Normal 10-54 [facility] Comment on above: Order Comment: Speci men Type: BLOOD SPECIMENOrdering Facility: [facility] Address: [address] [place] [address] Performed By: #### 3 084-1, 2532-0, 75414-4 ####[facility]ITALWNCLIA [id number] [place] [address] [place] Anion gap [Moles/Vol] 15 mmol/L Normal 8-15 [facility] Comment on above: Order Comment: Speci men Type: BLOOD SPECIMENOrdering Facility: [facility] Address: [address] [place] [address] Performed By: #### 3 084-1, 2532-0, 60736-5 ####[facility] MANJULAHUGOA [id number] [place] [address] [place] AST [Catalytic activity/Vol] 27 U/L Normal 14-40 [facility] Comment on above: Order Comment: Speci men Type: BLOOD SPECIMENOrdering Facility: [facility] Address: [address] [place] [address] Performed By: #### 3 084-1, 2532-0, 68516-4 ####[facility]ENSAR[facility] [id number] [place] [address] [place] Bilirubin [Mass/Vol] 0.4 mg/dL Normal 0.2-1.3 [facility] Comment on above: Order Comment: Speci men Type: BLOOD SPECIMENOrdering Facility: [facility] Address: [address] [place] [address] Performed By: #### 3 084-1, 2532-0, 87451-1 ####[facility] [id number] [place] [address] [place] Calcium [Mass/Vol] 10.1 mg/dL Normal 8.5-10.2 [facility] Comment on above: Order Comment: Speci men Type: BLOOD SPECIMENOrdering Facility: [facility] Address: [address] [place] [address] Performed By: #### 3 084-1, 2532-0, 22781-1 ####[facility]CL[facility] [id number] [place] [address] [place] Chloride [Moles/Vol] 97 mmol/L Low 98-107 [facility] Comment on above: Order Comment: Speci men Type: BLOOD SPECIMENOrdering Facility: [facility] Address: [address] [place] [address] Performed By: #### 3 084-1, 2532-0, 83259-5 ####[facility] [id number] [place] [address] [place] CO2 [Moles/Vol] 26 mmol/L Normal 22-30 [facility] Comment on above: Order Comment: Speci men Type: BLOOD SPECIMENOrdering Facility: [facility] Address: [address] [place] [address] Performed By: #### 3 084-1, 2532-0, 08306-5 ####[facility]CL[facility] [id number] [place] [address] [place] Creatinine [Mass/Vol] 3.72 mg/dL High 0.73-1.22 [facility] Comment on above: Order Comment: Speci men Type: BLOOD SPECIMENOrdering Facility: [facility] Address: [address] [place] [address] Performed By: #### 3 084-1, 2532-0, 62636-9 ####[facility]CL[facility] [id number] [place] [address] [place] Creatinine and Glomerular filtration rate.predicted panel (S/P/Bld) 17 mL/min/1.73m??? Low >=60 [facility] Comment on above: Order Comment: Speci men Type: BLOOD SPECIMENOrdering Facility: [facility] Address: [address] [place] [address] Result Comment: Radha mated Glomerular Filtration Rate [...] actual GFR. Performed By: #### 3 084-1, , 57962-8 ####[facility] MARIA ESTHER VELAWNCLIA [id number] [place] [address] [place] Glucose [Mass/Vol] 111 mg/dL High 74-99 [facility] Comment on above: Order Comment: Jasmina allen Type: BLOOD SPECIMENOrdering Facility: [facility] Address: [address] [place], [place] [address] Result Comment: The [place] Diabetes Association (ADA) provides guidance for cutoff [...] Standards of Medical Care in Diabetes 2016, Japanese Diabetes Association. Diabetes Care. 2016.39(Suppl 1). Performed By: #### 3 084-1, , ####[facility] MANJULAWNCLIA [id number] [place] [address] [place] Potassium [Moles/Vol] 3.4 mmol/L Low 3.7-5.1 [facility] Comment on above: Order Comment: Jasmina allen Type: BLOOD SPECIMENOrdering Facility: [facility] Address: [address] [place] [address] Performed By: #### 3 084-1, 253-0, ####[facility] MANJULAWNCLIA [id number] [place] [address] [place] Protein [Mass/Vol] 6.7 g/dL Normal 6.3-8.0 [facility] Comment on above: Order Comment: Speci men Type: BLOOD SPECIMENOrdering Facility: [facility] Address: [address] [place] [address] Performed By: #### 3 084-1, 2-0, ####[facility] [id number] [place] [address] [place] Sodium [Moles/Vol] 138 mmol/L Normal 136-144 [facility] Comment on above: Order Comment: Speci men Type: BLOOD SPECIMENOrdering Facility: [facility] Address: [address] [place] [address] Performed By: #### 3 084-1, 2531-0, ####[facility]CL[facility] [id number] [place] [address] [place] Urea nitrogen [Mass/Vol] 48 mg/dL High 9-24 [facility] Comment on above: Order Comment: Speci men Type: BLOOD SPECIMENOrdering Facility: [facility] Address: [address] [place] [address] Performed By: #### 3 084-1, 2531-0, ####[facility] [id number] [place] [address] [place] IMMUNOFIXATION SCREEN, SERUM on 08-08-2024 INTERPRETATION (MPA) Normal [facility] Comment on above: Order Comment: Speci men Type: BLOOD SPECIMENOrdering Facility: [facility] Address: [address] [place] [address] Performed By: #### I [facility] ####[facility] [id number] [place] [address] [place] MPA RESULT A poorly defined reg ion of restricted mobility is present that may represent an M protein. Abnormal No M protein is identified. [facility] Comment on above: Order Comment: Speci men Type: BLOOD SPECIMENOrdering Facility: [facility] Address: [address] [place], [place] [address] Performed By: #### I FES ####[facility] LABCL[facility] [id number] [place] [id number] [place] STAFF REVIEW (MPA) Reviewed by Kim Peoples MD Normal [facility] Comment on above: Order Comment: Speci men Type: BLOOD SPECIMENOrdering Facility: [facility] Address: [address] [place] [address] Performed By: #### I [facility] ####[facility]CL[facility] [id number] [place] [address] [place] IMMUNOGLOBULINS,IGG,IGA,IGMo n 08-08-2024 IgA [Mass/Vol] 18 mg/dL Low 70-400 [facility] Comment on above: Order Comment: Speci men Type: BLOOD SPECIMENOrdering Facility: [facility] Address: [address] [place] [address] Performed By: #### S ERIMM ####[facility] [id number] [place] [address] [place] IgG [Mass/Vol] 301 mg/dL Low 700-1600 [facility] Comment on above: Order Comment: Speci men Type: BLOOD SPECIMENOrdering Facility: [facility] Address: [address] [place] [address] Performed By: #### S ERIMM ####[facility] [id number] [place] [id number] [place] IgM [Mass/Vol] 32 mg/dL Low 40-230 [facility] Comment on above: Order Comment: Speci men Type: BLOOD SPECIMENOrdering Facility: [facility] Address: [address] [place], [place] [address] Performed By: #### S ERIMM ####[facility] [id number] [place] [address] [place] KAPPA/EMERY,FREE,SERon 2023 Immunoglobulin light chains.kappa.free (S) [Mass/Vol] 32.3 mg/L High 3.3-19.4 [facility] Comment on above: Order Comment: Speci men Type: BLOOD SPECIMENOrdering Facility: [facility] Address: [address] [place] [address] Result Comment: Rare ly, increased serum free light chains levels may not be detected or accurately quantified due to prozone phenomenon or in high viscosity samples using this immunoturbidimetric assay. Correlation with other laboratory results and clinical findings is recommended.The [place] Free Light Chain was performed using the Binding Site Optilite immunoturbidimetric method. Result obtained with different assay methods or kits cannot be used interchangeably. Performed By: #### K LFRS ####[facility] [id number] [place] [address] [place] Immunoglobulin light chains.kappa/Immunoglob ulin light chains.lambda (S) [Mass ratio] 2.03 High 0.26-1.65 [facility] Comment on above: Order Comment: Speci men Type: BLOOD SPECIMENOrdering Facility: [facility] Address: [address] [place] [address] Performed By: #### K LFRS ####[facility] [id number] [place] [address] [place] Immunoglobulin light chains.lambda.free [Mass/Vol] 15.9 mg/L Normal 5.7-26.3 [facility] Comment on above: Order Comment: Speci men Type: BLOOD SPECIMENOrdering Facility: [facility] Address: [address] [place] [address] Result Comment: Rare ly, increased serum free [...] used interchangeably. Performed By: #### K LFRS ####[facility]ENTERIA [id number] [place] [id number] [place] LDH SerPl-cCncon 08-08-2024 LDH [Catalytic activity/Vol] 247 U/L High 135-225 [facility] Comment on above: Order Comment: Speci men Type: BLOOD SPECIMENOrdering Facility: [facility] Address: [address] [place] [address] Performed By: #### 3 084-1, 2532-0, 26740-5 ####[facility] [id number] [place] [address] [place] PROTEIN ELECTROPHORESIS SERU M (P)on 08-08-2024 Albumin [Mass/Vol] 4.17 g/dL Normal 3.43-5.41 [facility] Comment on above: Order Comment: Speci men Type: BLOOD SPECIMENOrdering Facility: [facility] Address: [address] [place] [address] Performed By: #### L [id number] ####[facility] CENTERIA [id number] [place] [address] [place] Alpha 1 globulin Elph [Mass/Vol] 0.34 g/dL Normal 0.18-0.43 [facility] Comment on above: Order Comment: Speci men Type: BLOOD SPECIMENOrdering Facility: [facility] Address: [address] [place] [address] Performed By: #### L [id number] ####[facility] CENTERIA [id number] [place] [id number] [place] Alpha 2 globulin Elph [Mass/Vol] 0.77 g/dL Normal 0.42-0.98 [facility] Comment on above: Order Comment: Speci men Type: BLOOD SPECIMENOrdering Facility: [facility] Address: [address] [place] [address] Performed By: #### L [id number] ####[facility] [id number] [place] [address] [place] Beta globulin Elph [Mass/Vol] 0.59 g/dL Low 0.61-1.17 [facility] Comment on above: Order Comment: Speci men Type: BLOOD SPECIMENOrdering Facility: [facility] Address: [address] [place] [address] Performed By: #### L [id number] ####[facility] [id number] [place] [address] [place] Gamma globulin Elph [Mass/Vol] 0.23 g/dL Low 0.53-1.51 [facility] Comment on above: Order Comment: Speci men Type: BLOOD SPECIMENOrdering Facility: [facility] Address: [address] [place] [address] Performed By: #### L [id number] ####[facility] [id number] [place] [address] [place] INTERPRETATION COMMENT FOR PROTEIN ELECTROPHORESIS Hypogammaglobulinemia is present, which can be seen in the setting of monoclonal gammopathy. If clinically indicated, monoclonal protein analysis and serum free light chain analysis are suggested to evaluate further for monoclonal gammopathy. Normal [facility] Comment on above: Order Comment: Speci men Type: BLOOD SPECIMENOrdering Facility: [facility] Address: [address] [place] [address] Performed By: #### L [id number] ####[facility] [id number] [place] [address] [place] M-PROTEIN LOCATION Normal [facility] Comment on above: Order Comment: Speci men Type: BLOOD SPECIMENOrdering Facility: [facility] Address: [address] [place] [address] Result Comment: Not Applicable. Performed By: #### L [id number] ####[facility] [id number] [place] [address] [place] Protein Fractions [Interp] No definitive M protein is identified on protein electrophoresis. Normal No definitive M protein is identified on protein electrophores is. [facility] Comment on above: Order Comment: Speci men Type: BLOOD SPECIMENOrdering Facility: [facility] Address: [address] [place] [address] Performed By: #### L [id number] ####[facility] [id number] [place] [address] [place] Protein.monoclonal Elph [Mass/Vol] 0.00 g/dL Normal <=0.00 [facility] Comment on above: Order Comment: Speci men Type: BLOOD SPECIMENOrdering Facility: [facility] Address: [address] [place] [address] Performed By: #### L [id number] ####[facility] [id number] [place] [address] [place] [facility] SPE STAFF REVIEW Reviewed by Kim Peoples MD [facility] Comment on above: Order Comment: Speci men Type: BLOOD SPECIMENOrdering Facility: [facility] Address: [address] [place] [address] Performed By: #### L [id number] ####[facility] [id number] [place] [address] [place] Phosphate SerPl-mCncon 08-08 Phosphate [Mass/Vol] 4.2 mg/dL Normal 2.7-4.8 [facility] Comment on above: Order Comment: Speci men Type: BLOOD SPECIMENOrdering Facility: [facility] Address: [address] [place] [address] Performed By: #### 2 777-1 ####[facility] MARIA ESTHER [facility] [id number] [place] [address] [place] Prot SerPl-mCncon 08-08-2024 Protein [Mass/Vol] 6.1 g/dL Low 6.3-8.0 [facility] Comment on above: Order Comment: Speci men Type: BLOOD SPECIMENOrdering Facility: [facility] Address: [address] [place] [address] Performed By: #### 2 885-2, 1952-1 ####[facility] [id number] [place] [address] [place] Urate SerPl-ncon Urate [Mass/Vol] 4.3 mg/dL Normal 4.0-8.1 [facility] Comment on above: Order Comment: Zairai men Type: BLOOD SPECIMENOrdering Facility: [facility] Address: [address] [place] [address] Performed By: #### 3 084-1, 2532-0, 25470-7 ####[facility] [id number] [place] [address] [place] CNOVon 08-06-2024 CNOV Normal [facility] CNPNon 08-06-2024 CNPN Normal [facility] HbA1c (Bld)on 08-01-2024 Average glucose Estimated from glycated hemoglobin (Bld) [Mass/Vol] 108 mg/dL Normal [facility] Comment on above: Order Comment: Zairai men Type: BLOOD SPECIMENOrdering Facility: [facility] Address: [address] [place] [address] Result Comment: eAG: (Estimated average glucose) is a calculated value from HgbA1c and is business representative of the average blood glucose level in the last 2-3 month period. Performed By: #### 5 5454-3 ####[facility] [id number] [place] [address] [place] HbA1c (Bld) [Mass fraction] 5.4 % Normal 4.3-5.6 [facility] Comment on above: Order Comment: Speci men Type: BLOOD SPECIMENOrdering Facility: [facility] Address: [address] [place] [address] Result Comment: Amer [place] Diabetes Association guidelines indicate that patients with HgbA1c in the range 5.7-6.4% are at increased risk for development of diabetes, and intervention by lifestyle modification may be beneficial. HgbA1c greater or equal to 6.5% is considered diagnostic of diabetes. Performed By: #### 5 5454-3 ####[facility] [id number] [place] [address] [place] LIPID PANEL, NONFASTINGon Cholesterol [Mass/Vol] 190 mg/dL Normal <200 [facility] Comment on above: Order Comment: Speci men Type: BLOOD SPECIMENOrdering Facility: [facility] Address: [address] [place] [address] Result Comment: <200 mg/dL, Desirable 200-239 mg/dL, Borderline high>239 mg/dL, High Performed By: #### L IPNF ####[facility] [id number] [place] [address] [place] HDL CHOLESTEROL, NF 80 mg/dL Normal >39 [facility] Comment on above: Order Comment: Jasmina allen Type: BLOOD SPECIMENOrdering Facility: [facility] Address: [address] [place] [address] Result Comment: 40-5 9 mg/dL, Acceptable>59 mg/dL, High: Negative risk factor for coronary heart disease<40 mg/dL, Low: Positive risk factor for coronary heart disease Performed By: #### L IPNF ####[facility] [id number] [place] [address] [place] LDL CHOLESTEROL, NF 98 mg/dL Normal <100 [facility] Comment on above: Order Comment: Jasmina allen Type: BLOOD SPECIMENOrdering Facility: [facility] Address: [address] [place] [address] Result Comment: <100 mg/dL, Optimal 100-129 mg/dL, Near optimal/above optimal 130-159 mg/dL, Borderline high 160-189 mg/dL, High>189 mg/dL, Very highSecondary prevention optimal LDL Cholesterol levels are recommended to be < 70 mg/dL Performed By: #### L IPNF ####[facility] [id number] [place] [address] [place] LDL/HDL RATIO, NF 1.23 mg/dL Normal <2.54 [facility] Comment on above: Order Comment: Zairai men Type: BLOOD SPECIMENOrdering Facility: [facility] Address: [address] [place] [address] Result Comment: Refe rence:1. National Cholesterol Education Program ATP III Guideline At-A-Glance Quick Desk Reference: National Heart, Lung, and Blood [place]. National Institutes of Health. 2001: NIH Publication No. 01-3305.2. An International Atherosclerosis Society position paper: global recommendations for the management of dyslipidemia: executive summary, Atherosclerosis. 2014: 232(2):410-413. Performed By: #### L IPNF ####[facility] [id number] [address] [place] NON HDL CHOL, NF 110 mg/dL Normal <130 [facility] Comment on above: Order Comment: Jasmina allen Type: BLOOD SPECIMENOrdering Facility: [facility] Address: [address] [place] [address] Result Comment: <130 mg/dL, Optimal 130-159 mg/dL, Near optimal/above optimal 160-189 mg/dL, Borderline high 190-219 mg/dL, High>219 mg/dL, Very highSecondary prevention optimal non HDL Cholesterol levels are recommended to be <100 mg/dL Performed By: #### L IPNF ####[facility] [id number] [address] [place] T CHOL/HDL RATIO NF 2.38 mg/dL Normal <5.10 [facility] Comment on above: Order Comment: Zairai men Type: BLOOD SPECIMENOrdering Facility: [facility] Address: [address] [place] [address] Performed By: #### L IPNF ####[facility] [id number] [place] [address] [place] TRIGLYCERIDES, NF 61 mg/dL Normal <150 [facility] Comment on above: Order Comment: Speci men Type: BLOOD SPECIMENOrdering Facility: [facility] Address: [address] [place] [address] Result Comment: <150 mg/dL, Normal 150-199 mg/dL, Borderline high 200-499 mg/dL, High>499 mg/dL, Very high Performed By: #### L IPNF ####[facility] [id number] [place] [address] [place] VLDL CHOLESTEROL, NF 12 mg/dL Normal <30 [facility] Comment on above: Order Comment: Speci men Type: BLOOD SPECIMENOrdering Facility: [facility] Address: [address] [place] [address] Performed By: #### L IPNF ####[facility] [id number] [place] [address] [place] PSA (OUTSIDE)on 05-14-2024 [facility] HIGH SENSITIVITY TROPONIN To n 04-18-2024 Interpretation and review of laboratory results Abnormal [facility] Troponin T.cardiac High sensitivity method [Mass/Vol] 303 ng/L High NINF - 12 ng/L [facility] Absolute lymphocyte countOrd ered By: Jonathan Estrada on 12-18-2023 Lymphocytes Auto (Unsp spec) [#/Vol] 0.09 10*3/uL 0.83-4.51 [facility] Automated lymphocyte count a s percentage of total leukocytesOrdered By: Jonathan Estrada on 12-18-2023 Lymphocytes/100 WBC Auto (Unsp spec) 1.0 % 19-41 [facility] Basophil percentageOrdered B y: Jonathan Estrada on 12-18-2023 Basophils/100 WBC (Bld) 0.3 % 0-1 [facility] Chloride [Moles/Vol] 105 mmol/L 98-107 [facility] Eosinophils/100 WBC (Bld) 0.6 % 0-5 [facility] Glucose [Mass/Vol] 143 mg/dL 74-106 [facility] Comment on above: Fasting Glucose resu lt greater than or equal to 126 mg/dL suggests DIABETES MELLITUS per A.D.A. criteria. Hemoglobin (Bld) [Mass/Vol] 10.4 g/dL 13.0-16.5 [facility] Monocytes/100 WBC (Bld) 5.3 % 0-10 [facility] Neutrophils (Bld) [#/Vol] 7.9 10*3/uL 2.0-7.7 [facility] Neutrophils/100 WBC (Bld) 92.1 % 47-70 [facility] Potassium [Moles/Vol] 4.1 mmol/L 3.5-5.1 [facility] Sodium [Moles/Vol] 134 mmol/L 136-145 [facility] WBC (Bld) [#/Vol] 8.6 10*3/uL 4.4-11.0 [facility] Determination of erythrocyte mean corpuscular volume (MCV)Ordered By: Jonathan Estrada on 12-18-2023 MCV (RBC) [Entitic vol] 100.3 fL 80-94 [facility] Erythrocyte distribution wid th ratioOrdered By: Jonathan Estrada on 12-18-2023 Erythrocyte distribution width (RBC) [Ratio] 14.7 % 11.6-14.6 [facility] Erythrocyte distribution wid th standard deviationOrdered By: Jonathan Estrada on 12-18-2023 Erythrocyte distribution width (RBC) [Entitic vol] 53.9 fL 35.1-43.9 [facility] Hematocrit Auto (Bld) [Volum e fraction]Ordered By: Jonathan Estrada on 12-18-2023 Hematocrit (Bld) [Volume fraction] 31.5 % 40-54 [facility] Immature granulocytes/100 WB C Auto (Bld)Ordered By: Jonathan Estrada on 12-18-2023 Immature granulocytes/100 WBC (Bld) 0.700 % 0.0-0.9 [facility] Comment on above: IG% - Immature Granu locytes (promyelocytes, myelocytes and metamyelocytes) > 1% indicates that a LEFT SHIFT is Present. Laboratory - Chemistry and C hemistry - challengeOrdered By: Jonathan Estrada on 12-18-2023 CO2 [Moles/Vol] 17.0 mmol/L 21.0-32.0 [facility] Urea nitrogen/Creatinine [Mass ratio] 17.6 mg/mg 10-20 [facility] Laboratory - Hematology and Cell countsOrdered By: Jonathan Estrada on 12-18-2023 MCH (RBC) [Entitic mass] 33.1 pg 27.0-32.0 [facility] MCHC (RBC) [Mass/Vol] 33.0 g/dL 32-36 [facility] Nucleated RBC/100 WBC (Bld) [Ratio] 0 % 0-5 [facility] Platelet mean volume (Bld) [Entitic vol] 10.4 fL 6.2-12.0 [facility] Platelets (Bld) [#/Vol] 204 10*3/uL 150-450 [facility] No Panel InformationOrdered By: Joanthan Estrada on 12-18-2023 Estimated Creatinine Clearance Calc 6.69 ml/min [facility] Estimated GFR (MDRD) Amer 11 mL/min >60 [facility] Comment on above: GFR Calc Estimated GFR (MDRD) Non-Af Amer 9 mL/min >60 [facility] Comment on above: Non- GFR Calc RBC Auto (Bld) [#/Vol]Ordere d By: Jonathan Estrada on 12-18-2023 RBC (Bld) [#/Vol] 3.14 10*6/uL 4.6-6.2 [facility] Serum or plasma calcium marce urement (mass/volume)Ordered By: Jonathan Estrada on 12-18-2023 Calcium [Mass/Vol] 8.6 mg/dL 8.5-10.1 [facility] Serum or plasma creatinine m easurement (mass/volume)Ordered By: Jonathan Estrada on 12-18-2023 Creatinine [Mass/Vol] 6.75 mg/dL 0.70-1.30 [facility] Comment on above: The validity of the calculated GFR & GFRAA in patients over 70 years has not been determined. Clinical correlation is essential. Serum or plasma urea nitroge n measurement (mass/volume)Ordered By: Jonathna Estrada on 12-18-2023 Urea nitrogen [Mass/Vol] 119 mg/dL 7-18 [facility] Comment on above: Critical Result(s) C alled at: 10:50:57 12/18/2023 by: Kristina Du. Results read back by same. Thin prep Papanicolaou smear with manual screeningOrdered By: Jonathan Estrada on 12-18-2023 Thin prep Papanicolaou smear with manual screening 12 5-15 [facility] Absolute lymphocyte countOrd ered By: Jose Miguel Fernandez on 12-15-2023 Lymphocytes Auto (Unsp spec) [#/Vol] 0.06 10*3/uL 0.83-4.51 [facility] Activated partial thrombopla stin time (aPTT) in platelet poor plasma by coagulation aOrdered By: Jose Miguel Fernandez on 12-15-2023 aPTT Coag (PPP) [Time] 27.2 s 24.1-36.2 [facility] Automated lymphocyte count a s percentage of total leukocytesOrdered By: Jose Miguel Fernandez on 12-15-2023 Lymphocytes/100 WBC Auto (Unsp spec) 0.7 % 19-41 [facility] Basophil percentageOrdered B y: Jose Miguel Fernandez on 12-15-2023 Basophil percentage 50-100 SEEN /hpf 0-5 [facility] Basophils/100 WBC (Bld) 0.4 % 0-1 [facility] Bilirubin [Mass/Vol] 0.30 mg/dL 0.20-1.00 [facility] Comment on above: For patients on eltr ombopag therapy, use of Dimension [place] TBIL is not recommended. Chloride [Moles/Vol] 105 mmol/L 98-107 [facility] Eosinophils/100 WBC (Bld) 0.3 % 0-5 [facility] Glucose [Mass/Vol] 116 mg/dL 74-106 [facility] Comment on above: Fasting Glucose resu lt from 100 to 125 mg/dL suggests IMPAIRED HOMEOSTASIS per A.D.A. criteria. Hemoglobin (Bld) [Mass/Vol] 10.0 g/dL 13.0-16.5 [facility] Lactate [Moles/Vol] 1.4 mmol/L 0.4-2.0 [facility] Monocytes/100 WBC (Bld) 4.7 % 0-10 [facility] Neutrophils (Bld) [#/Vol] 8.6 10*3/uL 2.0-7.7 [facility] Neutrophils/100 WBC (Bld) 93.4 % 47-70 [facility] Potassium [Moles/Vol] 4.2 mmol/L 3.5-5.1 [facility] Protein [Mass/Vol] 5.5 g/dL 6.4-8.2 [facility] Sodium [Moles/Vol] 137 mmol/L 136-145 [facility] WBC (Bld) [#/Vol] 9.2 10*3/uL 4.4-11.0 [facility] Bilirubin Test strip Ql (U)O rdered By: Jose Miguel Fernandez on 12-15-2023 Bilirubin Ql (U) Negative Negative [facility] Culture, urineOrdered By: Gilda Fernandez on 12-15-2023 Bacteria identified Cx Nom (U) Citrobacter koseri [facility] Determination of erythrocyte mean corpuscular volume (MCV)Ordered By: Jose Miguel Fernandez on 12-15-2023 MCV (RBC) [Entitic vol] 100.3 fL 80-94 [facility] Erythrocyte distribution wid th ratioOrdered By: Jose Miguel Fernandez on 12-15-2023 Erythrocyte distribution width (RBC) [Ratio] 14.6 % 11.6-14.6 [facility] Erythrocyte distribution wid th standard deviationOrdered By: Jose Miguel Fernandez on 12-15-2023 Erythrocyte distribution width (RBC) [Entitic vol] 52.9 fL 35.1-43.9 [facility] Hematocrit Auto (Bld) [Volum e fraction]Ordered By: Jose Miguel Fernandez on 12-15-2023 Hematocrit (Bld) [Volume fraction] 30.6 % 40-54 [facility] Immature granulocytes/100 WB C Auto (Bld)Ordered By: Jose Miguel Fernandez on 12-15-2023 Immature granulocytes/100 WBC (Bld) 0.500 % 0.0-0.9 [facility] Comment on above: IG% - Immature Granu locytes (promyelocytes, myelocytes and metamyelocytes) > 1% indicates that a LEFT SHIFT is Present. Ketones Test strip Ql (U)Ord ered By: Jose Miguel Fernandez on 12-15-2023 Ketones Ql (U) Negative Negative [facility] Laboratory - Chemistry and C hemistry - challengeOrdered By: Jose Miguel Fernandez on 12-15-2023 Albumin/Globulin [Mass ratio] 0.7 {ratio} 0.9-2.4 [facility] ALP [Catalytic activity/Vol] 138 U/L 45-117 [facility] ALT [Catalytic activity/Vol] 59 U/L 16-61 [facility] CO2 [Moles/Vol] 21.0 mmol/L 21.0-32.0 [facility] Globulin (S) [Mass/Vol] 3.2 g/dL 2.2-4.2 [facility] Urea nitrogen/Creatinine [Mass ratio] 19.1 mg/mg 10-20 [facility] Laboratory - CoagulationOrde red By: Jose Miguel Fernandez on 12-15-2023 INR Coag (Bld) [Relative time] 1.1 {INR} [facility] PT Coag (PPP) [Time] 13.8 s 11.7-14.9 [facility] Laboratory - Hematology and Cell countsOrdered By: Jose Miguel Fernandez on 12-15-2023 MCH (RBC) [Entitic mass] 32.8 pg 27.0-32.0 [facility] MCHC (RBC) [Mass/Vol] 32.7 g/dL 32-36 [facility] Nucleated RBC/100 WBC (Bld) [Ratio] 0 % 0-5 [facility] Platelet mean volume (Bld) [Entitic vol] 10.5 fL 6.2-12.0 [facility] Platelets (Bld) [#/Vol] 205 10*3/uL 150-450 [facility] Mucus LM Ql (Urine sed)Order ed By: Jose Miguel Fernandez on 12-15-2023 Mucus Ql (Urine sed) 0 SEEN /hpf [facility] Nitrite Test strip Ql (U)Ord ered By: Jose Miguel Fernandez on 12-15-2023 Nitrite Ql (U) Positive Negative [facility] No Panel InformationOrdered By: Jose Miguel Fernandez on 12-15-2023 Troponin I High Sensitivity 281 pg/mL 3.0-78.0 [facility] Comment on above: Critical Result(s) C alled at: 16:16:27 12/15/2023 by: RICHARD REYES to Ana Johnston. Results read back by same. Please Note: New Test Units and Gender Specific Reference Ranges. For more information see Policy Stat Procedure [place] High Sensitivity Troponin (TNIH) and attachments. Urine RBC 0-5 SEEN /hpf 0-5 [facility] Estimated Creatinine Clearance Calc 7.10 ml/min [facility] Estimated GFR (MDRD) Amer 11 mL/min >60 [facility] Comment on above: GFR Calc Estimated GFR (MDRD) Non-Af Amer 9 mL/min >60 [facility] Comment on above: Non- GFR Calc Protein Test strip Ql (U)Ord ered By: Jose Miguel Fernandez on 12-15-2023 Protein Ql (U) 500 mg/dl Negative [facility] RBC Auto (Bld) [#/Vol]Ordere d By: Jose Miguel Fernandez on 12-15-2023 RBC (Bld) [#/Vol] 3.05 10*6/uL 4.6-6.2 [facility] Serum or plasma calcium marce urement (mass/volume)Ordered By: Jose Miguel Fernandez on 12-15-2023 Calcium [Mass/Vol] 8.5 mg/dL 8.5-10.1 [facility] Serum or plasma creatinine m easurement (mass/volume)Ordered By: Jose Miguel Fernandez on 12-15-2023 Creatinine [Mass/Vol] 6.60 mg/dL 0.70-1.30 [facility] Comment on above: The validity of the calculated GFR & GFRAA in patients over 70 years has not been determined. Clinical correlation is essential. Serum or plasma urea nitroge n measurement (mass/volume)Ordered By: Jose Miguel Fernandez on 12-15-2023 Urea nitrogen [Mass/Vol] 126 mg/dL 7-18 [facility] Comment on above: Critical Result(s) C alled at: 14:14:09 12/15/2023 by: Kristina Hickman. Results read back by same. Squamous epithelial cells de tection in urine sediment by light microscopyOrdered By: Jose Miguel Fernandez on 12-15-2023 Epithelial cells.squamous LM Ql (Urine sed) 0 SEEN /hpf 0-5 [facility] Thin prep Papanicolaou smear with manual screeningOrdered By: Jose Miguel Fernandez on 12-15-2023 Thin prep Papanicolaou smear with manual screening 2.3 g/dL 3.2-5.0 [facility] Thin prep Papanicolaou smear with manual screening 30 U/L 15-37 [facility] Thin prep Papanicolaou smear with manual screening 11 5-15 [facility] Urine blood detectionOrdered By: Jose Miguel Fernandez on 12-15-2023 RBC Ql (U) 50 /ul Negative [facility] Urine clarityOrdered By: Maribell Fernandez on 12-15-2023 Clarity (U) Cloudy Clear [facility] Urine color determinationOrd ered By: Jose Miguel Fernandez on 12-15-2023 Color (U) Yellow Yellow [facility] Urine glucose detectionOrder ed By: Jose Miguel Fernandez on 12-15-2023 Glucose Ql (U) Normal mg/dl Normal [facility] Urine leukocyte esterase det ection by dipstickOrdered By: Jose Miguel Fernandez on 12-15-2023 Leukocyte esterase Test strip Ql (U) 500 /ul Negative [facility] Urine pHOrdered By: Jose Miguel Fernandez on 12-15-2023 pH (U) 6.0 [pH] 5.0 - 8.0 [facility] Urine sediment bacteria coun t by microscopy (number/high power field)Ordered By: Jose Miguel Fernandez on 12-15-2023 Bacteria LM.HPF (Urine sed) [#/Area] 2 /[HPF] None Seen [facility] Urine specific gravity measu rementOrdered By: Jose Miguel Fernandez on 12-15-2023 Specific gravity (U) [Rel density] 1.015 1.002-1.030 [facility] Urine urobilinogen measureme ntOrdered By: Jose Miguel Fernandez on 12-15-2023 Urobilinogen Ql (U) Normal mg/dl Normal [facility] OPERATIVE NOon 12-11-2023 OPERATIVE NO HNO ID: [id number] Author: ANKUR BENAVIDEZ PA-C Service: Vascular Surgery Author Type: Physician Manager Women Type: Operative Report Filed: 12/12/2023 09:16 Note Text: OPERATIVE/PROCEDURE REPORT LOG ID: [id number] Surgery/Procedure Date: 12/11/2023 Incision/Procedure Start Time: 1:15 PM Incision Close/Procedure End Time: 1:28 PM Surgeon(s)/Proceduralis t(s) and Manager Women(s): Surgeon(s) and Role: * Ankur Benavidez PA-C [...] questions or concerns Mon-Mon 6a-5p please page [phone]. After 5pm and on Weekends and Holidays, please page [phone] if in ICU or [phone] if on RNF. Normal [facility] NT PRO BNPon 05-23-2023 Natriuretic peptide.B prohormone N-Terminal [Mass/Vol] 87504 pg/mL High <125 pg/mL [facility] CRYOGLOBULIN, QUAL, REFLEX T O KATHRYN AND IGG,A,Mon 05-17-2023 CRYOGLOBULIN, QUALITATIVE NEG 72Hour Normal -72Hour [facility] Comment on above: Order Comment: Speci men Type: BLOOD SPECIMEN [facility] Facility[facility] Address: [address] [place] [id number] Result Comment: This test was developed and its performance characteristics determined by [employer]. It has not been cleared or approved by the [place] Food and Drug Administration. This test was performed in a CLIA certified laboratory and is intended for clinical purposes. Performed By: [facility] [address] [place] [address] Sample Maker Original: Chuck Andrea MD, PhD CLIA Number: [id number] Performed By: #### C RYAGM #### [facility] CLIA [id number] [address] [place] [address] CT ABD/PEL WO IVCONon 2022 [facility] BRIEF OP NOTon 04-14-2023 BRIEF OP NOT HNO ID: [id number] Author: Emil Mike MD, MD Service: Radiology Author Type: Physician Type: Brief Op Note Filed: 04/14/2023 12:35 PM Note Text: INTERVENTIONAL RADIOLOGY POST PROCEDURE NOTE DATE: 04/14/23 NAME: Edgar Henderson LOG ID: [id number] Pre-Procedure Diagnosis: CRF Water Trainer: Surgeon(s) and Role: * Emil Mike MD, MD - Primary Procedure: Random renal biopsy Anesthesia: Local Findings: Five 18 G Super core specimens Estimated Blood Loss: 0 ml Specimen: To histology Complications: None Post-Op/Post-Procedure Diagnosis: CRF Normal [facility] CT BIOPSY RENALon 04-14-2023 CT BIOPSY RENAL * * *Final Report* * * DATE OF EXAM: Apr 14 2023 2:48PM [facility] 2020 - CT BIOPSY RENAL / PROCEDURE REASON: [...] left kidney. Specimen was sent for histology. Waste Treatment Operator: PSCB Transcribe Date/Time: Apr 14 2023 2:50P Dictated by : EMIL MIKE MD This examination was interpreted and the report reviewed and electronically signed by: EMIL MIKE MD on Apr 14 2023 2:52PM EST [id number] Normal [facility] HISTORY PHYSICALon HISTORY PHYSICAL HNO ID: [id number] Author: Emil Mike MD, MD Service: Radiology [...] Record dated 03/23/2023 @ 7:12 PM. Normal [facility] SURGICAL PATHOLOGYon 023 CASE REPORT Normal [facility] Comment on above: Order Comment: Jasmina allen Type: TISSUE SPECIMEN [facility] Address: [address] [place] [address] Result Comment: Surg ica Pathology Report Case: [id number] Authorizing Provider: Emil Mike MD, MD Collected: 04/14/2023 12:12 PM Ordering Location: [facility] Received: 04/14/2023 12:22 PM INTERVENTIONAL RADIOLOGY Pathologist: Tania Santos MD Intraop: Adolfo Bush MD Specimen: KIDNEY BIOPSY LEFT Performed By: #### S #### [facility] CLIA [id number] [address] [place] [address] [place] CLINICAL HISTORY 72-year-old man undergoing evaluation for 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 Serum creatinine is 2.54, serum albumin is 3.1, kappa to lambda ratio is 14.57 and SPEP shows an IgM kappa monoclonal spike. Urinalysis shows 2+ protein. 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 Normal [facility] Comment on above: Order Comment: Jasmina allen Type: TISSUE SPECIMEN [facility] Address: [address] [place] [address] Performed By: #### S #### [facility] CLIA [id number] [address] [place] [address] DIAGNOSIS COMMENT Normal [facility] Comment on above: Order Comment: Jasmina allen Type: TISSUE SPECIMEN [facility] Facility[facility] Address: [address] [place] [id number] Result Comment: Ligh t microscopy shows prominent amyloid accumulation within [...] been determined by the performing laboratory within [facility]???s [facility] [place] ([facility], [facility], [facility], [facility], [facility], or [facility]) in a manner consistent with CLIA requirements. One or more of these tests have not been cleared or approved by the FDA. [facility] is regulated under CLIA as qualified to perform high-complexity testing. These tests are used for clinical purposes. They should not be regarded as investigational or for research. Positive and negative controls stain appropriately. Performed By: #### S #### [facility] CLIA [id number] [address] [place] [address] FINAL DIAGNOSIS Normal [facility] Comment on above: Order Comment: Jasmina allen Type: TISSUE SPECIMEN [facility] Facility: [facility] Address: [place] [address] Result Comment: A. N ative left kidney biopsy: - [place] light chain amyloidosis extensively involving glomeruli, the tubulointerstitium and vessel cooper. - Tubular atrophy and interstitial fibrosis, moderate to severe. Performed By: #### S #### [facility] CLIA [id number] [place] FINAL PERFORMING LAB Normal [facility] Comment on above: Order Comment: Speci men Type: TISSUE SPECIMEN [facility] Facility: [facility] Address: [address] [place] [place] [address] Result Comment: Diag nostic interpretation performed at [facility], [facility] [place] [address] CLIA# [id number] Sample Maker Original: Surinder Lehman M.D. Performed By: #### S #### [facility] CLIA [id number] [address] [place] [address] GROSS DESCRIPTION Normal [facility] Comment on above: Order Comment: Speci men Type: TISSUE SPECIMEN [facility]ing Facility: [facility] Address: [address] [place] [address] Result Comment: Christianne NELSON BIOPSY LEFT Received for medical kidney biopsy triage evaluation are 5 tissue cores ranging in length from 0.5 to 1.5 cm. Wet preparation is examined for triage purposes. Three tissue cores are placed in formalin, 1 in Mikey's fixative and 1 in glutaraldehyde. Specimens are sent to [facility] for further evaluation. Gross examination performed at [facility], [address] [place] [address] CLIA# [id number] Received in formalin are multiple segments [...] 2023 5:23 PM Gross examination performed at [facility], [facility] [place] [address] Performed By: #### S #### [facility] CLIA [id number] [address] [place] [address] [place] MICROSCOPIC DESCRIPTION Normal [facility] Comment on above: Order Comment: Speci men Type: TISSUE SPECIMEN Ordering Facility: [facility] Address: [address] [place] [address] Result Comment: Sect ions are stained with [...] also identified. Performed By: #### S #### [facility] CLIA [id number] [address] [facility] [address] [address] [place] [address] CHEST WO IVCONon 04-06-20 Radiology Result ACTIONABLE Abnormal Shilpa hernandez [facility] XR BONE SURVEY ROUTINEon [facility] Throat specimen bacteria karen ntification by cultureOrdered By: Kit Crisostomo on 04-05-2023 Bacteria identified Cx Nom (Throat) streptococcus isolated. [facility] SPIROMETRY - BASELINE AND PO ST DILATORon 04-03-2023 NBW48-72% POST (L/S) 2.45 L/S [facility] RZC96-48% PRE (L/S) 3.05 L/S [facility] FEV1 PRE (L) 3.33 L [facility] FEV1/FVC POST (%) 82 % [facility] FEV1/FVC PRE (%) 77 % [facility] FEV1_POST (L) 3.21 L [facility] FVC POST (L) 3.91 L [facility] FVC PRE (L) 4.30 L [facility] PEF POST (L/S) 7.23 L/S [facility] PEF PRE (L/S) 7.53 L/S [facility] [facility] COMPLETEon 2022 [facility] Basophil percentageOrdered B y: Jonathan Fernando on 03-18-2023 Chloride [Moles/Vol] 110 mmol/L 98-107 [facility] Glucose [Mass/Vol] 100 mg/dL 74-106 [facility] Comment on above: Fasting Glucose resu lt from 100 to 125 mg/dL suggests IMPAIRED HOMEOSTASIS per A.D.A. criteria. Potassium [Moles/Vol] 4.2 mmol/L 3.5-5.1 [facility] Sodium [Moles/Vol] 141 mmol/L 136-145 [facility] Laboratory - Chemistry and C hemistry - challengeOrdered By: Jonathan Fernando on 03-18-2023 CO2 [Moles/Vol] 26.0 mmol/L 21.0-32.0 [facility] Urea nitrogen/Creatinine [Mass ratio] 19.5 mg/mg 10-20 [facility] No Panel InformationOrdered By: Jonathan Fernando on 03-18-2023 Estimated Creatinine Clearance Calc 23.05 ml/min [facility] Estimated GFR (MDRD) Amer 38 mL/min >60 [facility] Comment on above: GFR Calc Estimated GFR (MDRD) Non-Af Amer 31 mL/min >60 [facility] Comment on above: Non- GFR Calc Serum or plasma calcium marce urement (mass/volume)Ordered By: Jonathan Fernando on 03-18-2023 Calcium [Mass/Vol] 8.1 mg/dL 8.5-10.1 [facility] Serum or plasma creatinine m easurement (mass/volume)Ordered By: Jonathan Fernando on 03-18-2023 Creatinine [Mass/Vol] 2.21 mg/dL 0.70-1.30 [facility] Comment on above: The validity of the calculated GFR & GFRAA in patients over 70 years has not been determined. Clinical correlation is essential. Serum or plasma urea nitroge n measurement (mass/volume)Ordered By: Jonathan Fernando on 03-18-2023 Urea nitrogen [Mass/Vol] 43 mg/dL 7-18 [facility] Thin prep Papanicolaou smear with manual screeningOrdered By: Jonathan Fernando on 03-18-2023 Thin prep Papanicolaou smear with manual screening 5 5-15 [facility] Urine creatinine measurement (mass/volume)Ordered By: Jonathan Fernando on 03-18-2023 Creatinine (U) [Mass/Vol] 32.50 mg/dL NO RANGE EST. [facility] Urine protein measurement (m ass/volume)Ordered By: Jonathan Fernando on 03-18-2023 Protein (U) [Mass/Vol] 109.3 mg/dL 0.0-11.8 [facility] Urine protein/creatinine mas s ratioOrdered By: Jonathan Fernando on 03-18-2023 Protein/Creatinine (U) [Mass ratio] 3363 mg/g CRE 0-200 [facility] Absolute lymphocyte countOrd ered By: Jose Elizabeth on 03-17-2023 Lymphocytes Auto (Unsp spec) [#/Vol] 2.13 10*3/uL 0.83-4.51 [facility] Basophil percentageOrdered B y: Jose Elizabeth on 03-17-2023 Basophil percentage 0 SEEN /hpf 0-5 [facility] Basophils/100 WBC (Bld) 0.9 % 0-1 [facility] Bilirubin [Mass/Vol] 0.40 mg/dL 0.20-1.00 [facility] Comment on above: For patients on eltr ombopag therapy, use of Dimension [place] TBIL is not recommended. Chloride [Moles/Vol] 106 mmol/L 98-107 [facility] Eosinophils/100 WBC (Bld) 1.3 % 0-5 [facility] Glucose [Mass/Vol] 129 mg/dL 74-106 [facility] Comment on above: Fasting Glucose resu lt greater than or equal to 126 mg/dL suggests DIABETES MELLITUS per A.D.A. criteria. Neutrophils (Bld) [#/Vol] 3.8 10*3/uL 2.0-7.7 [facility] Neutrophils/100 WBC (Bld) 56.1 % 47-70 [facility] Potassium [Moles/Vol] 4.2 mmol/L 3.5-5.1 [facility] Protein [Mass/Vol] 6.4 g/dL 6.4-8.2 [facility] Sodium [Moles/Vol] 139 mmol/L 136-145 [facility] WBC (Bld) [#/Vol] 6.8 10*3/uL 4.4-11.0 [facility] Bilirubin Test strip Ql (U)O rdered By: Jose Elizabeth on 03-17-2023 Bilirubin Ql (U) Negative Negative [facility] Blood erythrocytes count (nu mber/volume)Ordered By: Jose Elizabeth on 03-17-2023 RBC (Bld) [#/Vol] 3.82 10*6/uL 4.6-6.2 [facility] Blood hemoglobin measurement (mass/volume)Ordered By: Jose Elizabeth on 03-17-2023 Hemoglobin (Bld) [Mass/Vol] 12.5 g/dL 13.0-16.5 [facility] Blood lymphocytes/100 leukoc ytesOrdered By: Jose Elizabeth on 03-17-2023 Lymphocytes/100 WBC (Bld) 31.5 % 19-41 [facility] Blood monocytes/100 leukocyt esOrdered By: Jose Elizabeth on 03-17-2023 Monocytes/100 WBC (Bld) 9.9 % 0-10 [facility] Blood platelet mean volumeOr dered By: Jose Elizabeth on 03-17-2023 Platelet mean volume (Bld) [Entitic vol] 9.7 fL 6.2-12.0 [facility] Determination of erythrocyte mean corpuscular volume (MCV)Ordered By: Jose Elizabeth on 03-17-2023 MCV (RBC) [Entitic vol] 98.7 fL 80-94 [facility] Hematocrit Auto (Bld) [Volum e fraction]Ordered By: Jose Elizabeth on 03-17-2023 Hematocrit (Bld) [Volume fraction] 37.7 % 40-54 [facility] Ketones Test strip Ql (U)Ord ered By: Jsoe Elizabeth on 03-17-2023 Ketones Ql (U) Negative Negative [facility] Laboratory - Chemistry and C hemistry - challengeOrdered By: Jose Elizabeth on 03-17-2023 ALP [Catalytic activity/Vol] 93 U/L 45-117 [facility] ALT [Catalytic activity/Vol] 28 U/L 16-61 [facility] CO2 [Moles/Vol] 27.0 mmol/L 21.0-32.0 [facility] Globulin (S) [Mass/Vol] 3.7 g/dL 2.2-4.2 [facility] Urea nitrogen/Creatinine [Mass ratio] 18.0 mg/mg 10-20 [facility] Laboratory - Hematology and Cell countsOrdered By: Jose Elizabeth on 03-17-2023 Erythrocyte distribution width (RBC) [Entitic vol] 50.1 fL 35.1-43.9 [facility] Erythrocyte distribution width (RBC) [Ratio] 13.8 % 11.6-14.6 [facility] Immature granulocytes/100 WBC (Bld) 0.300 % 0.0-0.9 [facility] Comment on above: IG% - Immature Granu locytes (promyelocytes, myelocytes and metamyelocytes) > 1% indicates that a LEFT SHIFT is Present. MCH (RBC) [Entitic mass] 32.7 pg 27.0-32.0 [facility] Nucleated RBC/100 WBC (Bld) [Ratio] 0 % 0-5 [facility] MCHC Auto (RBC) [Mass/Vol]Or dered By: Jose Elizabeth on 03-17-2023 MCHC (RBC) [Mass/Vol] 33.2 g/dL 32-36 [facility] Mucus LM Ql (Urine sed)Order ed By: Jose Elizabeth on 03-17-2023 Mucus Ql (Urine sed) 0 SEEN /hpf [facility] Nitrite Test strip Ql (U)Ord ered By: Jose Elizabeth on 03-17-2023 Nitrite Ql (U) Negative Negative [facility] No Panel InformationOrdered By: Jonathan Fernando on 03-17-2023 Troponin I High Sensitivity 153 pg/mL 3.0-78.0 [facility] Comment on above: Critical Result(s) C alled at: 18:38:45 03/17/2023 by: Gale HERNANDEZ. Results read back by same. Please Note: New Test Units and Gender Specific Reference Ranges. For more information see Policy Stat Procedure [place] High Sensitivity Troponin (TNIH) and attachments. No Panel InformationOrdered By: Jose Elizabeth on 03-17-2023 Estimated Creatinine Clearance Calc 20.80 ml/min [facility] Estimated GFR (MDRD) Amer 34 mL/min >60 [facility] Comment on above: GFR Calc Estimated GFR (MDRD) Non-Af Amer 28 mL/min >60 [facility] Comment on above: Non- GFR Calc Thyroid Stimulating Hormone (TSH) 3.58 uIU/mL 0.358-3.74 [facility] Troponin I High Sensitivity 153 pg/mL 3.0-78.0 [facility] Comment on above: Critical Result(s) C alled at: 12:14:56 03/17/2023 by: Ric Garcia RN (ER). Results read back by same. Please Note: New Test Units and Gender Specific Reference Ranges. For more information see Policy Stat Procedure [place] High Sensitivity Troponin (TNIH) and attachments. Platelets bldOrdered By: Shelbi Elizabeth on 03-17-2023 Platelets (Bld) [#/Vol] 271 10*3/uL 150-450 [facility] Protein Test strip Ql (U)Ord ered By: Jose Elizabeth on 03-17-2023 Protein Ql (U) 100 mg/dl Negative [facility] Serum or plasma albumin marce urement (mass/volume)Ordered By: Jose Elizabeth on 03-17-2023 Albumin [Mass/Vol] 2.7 g/dL 3.2-5.0 [facility] Serum or plasma albumin/glob ulin mass ratioOrdered By: Jose Elizabeth on 03-17-2023 Albumin/Globulin [Mass ratio] 0.7 {ratio} 0.9-2.4 [facility] Serum or plasma calcium marce urement (mass/volume)Ordered By: Jose Elizabeth on 03-17-2023 Calcium [Mass/Vol] 8.9 mg/dL 8.5-10.1 [facility] Serum or plasma creatinine m easurement (mass/volume)Ordered By: Jose Elizabeth on 03-17-2023 Creatinine [Mass/Vol] 2.44 mg/dL 0.70-1.30 [facility] Comment on above: The validity of the calculated GFR & GFRAA in patients over 70 years has not been determined. Clinical correlation is essential. Serum or plasma urea nitroge n measurement (mass/volume)Ordered By: Jose Elizabeth on 03-17-2023 Urea nitrogen [Mass/Vol] 44 mg/dL 7-18 [facility] Squamous epithelial cells de tection in urine sediment by light microscopyOrdered By: Jose Elizabeth on 03-17-2023 Epithelial cells.squamous LM Ql (Urine sed) 0 SEEN /hpf 0-5 [facility] Thin prep Papanicolaou smear with manual screeningOrdered By: Jose Elizabeth on 03-17-2023 Thin prep Papanicolaou smear with manual screening 33 U/L 15-37 [facility] Thin prep Papanicolaou smear with manual screening 6 5-15 [facility] Urine blood detectionOrdered By: Jose Elizabeth on 03-17-2023 RBC Ql (U) 25 /ul Negative [facility] RBC Ql (U) 0 SEEN /hpf 0-5 [facility] Urine clarityOrdered By: Shelbi Elizabeth on 03-17-2023 Clarity (U) Clear Clear [facility] Urine color determinationOrd ered By: Jose Elizabeth on 03-17-2023 Color (U) Yellow Yellow [facility] Urine glucose detectionOrder ed By: Jose Elizabeth on 03-17-2023 Glucose Ql (U) Normal mg/dl Normal [facility] Urine leukocyte esterase det ection by dipstickOrdered By: Jose Elizabeth on 03-17-2023 Leukocyte esterase Test strip Ql (U) Negative Negative [facility] Urine pHOrdered By: Jose guthrie on 03-17-2023 pH (U) 6.5 [pH] 5.0 - 8.0 [facility] Urine sediment bacteria coun t by microscopy (number/high power field)Ordered By: Jose Elizabeth on 03-17-2023 Bacteria LM.HPF (Urine sed) [#/Area] 0 /[HPF] None Seen [facility] Urine specific gravity measu rementOrdered By: Jose Renoeneida on 03-17-2023 Specific gravity (U) [Rel density] 1.010 1.002-1.030 [facility] Urobilinogen Auto test strip Ql (U)Ordered By: Jose Bojorquezeneida on 03-17-2023 Urobilinogen Ql (U) Normal mg/dl Normal [facility] Vital Signs Date Time Vital Sign Value Performing Clinician Facility 05-20-2025 10:55-0400 Body mass index (BMI) [Ratio] 17.75 kg/m2 [employer] Work Phone: [facility] 05-20-2025 10:55-0400 Body temperature 97.11 [degF] [employer] Work Phone: [facility] 05-20-2025 10:55-0400 Body weight 52.16 kg [employer] Work Phone: [facility] 05-20-2025 10:55-0400 Diastolic blood pressure 70 mm[Hg] [employer] Work Phone: [facility] 05-20-2025 10:55-0400 Heart rate 71 /min [employer] Work Phone: [facility] 05-20-2025 10:55-0400 SaO2% (BldA) [Mass fraction] 100 % [employer] Work Phone: [facility] 05-20-2025 10:55-0400 Systolic blood pressure 118 mm[Hg] [employer] Work Phone: [facility] 05-15-2025 09:40-0400 Body temperature 97.8 [degF] Dr. Jose Miguel Herbert MD Work Phone: [facility] 05-15-2025 09:40-0400 Body weight 51.[address] Jose Miguel Herbert MD Work Phone: 8(275)118-733232 [place] [address] 05-15-2025 09:40-0400 Diastolic blood pressure 66 mm[Hg] Dr. Jose Miguel Herbert MD Work Phone: 5(877)513-503732 [place] [address] 05-15-2025 09:40-0400 Heart rate 64 /min Dr. Jose Miguel Herbert MD Work Phone: 6(844)105-946532 [place] [address] 05-15-2025 09:40-0400 Respiratory rate 16 /min Dr. Jose Miguel Herbert MD Work Phone: 3(514)106-219532 [place] [address] 05-15-2025 09:40-0400 SaO2% (BldA) [Mass fraction] 100 % Dr. Jose Miguel Herbert MD Work Phone: 4(300)665-784132 [place] [address] 05-15-2025 09:40-0400 Systolic blood pressure 105 mm[Hg] Dr. Jose Miguel Herbert MD Work Phone: 0(514)540-985832 [place] [address] 05-01-2025 07:17-0400 Body height 172.[address] Jose Miguel Herbert MD Work Phone: 8(248)246-617332 [place] [address] 05-01-2025 07:17-0400 Body weight 54.[address] Jose Miguel Herbert MD Work Phone: 3(992)442-696932 [place] [address] 04-30-2025 07:36-0400 Body mass index (BMI) [Ratio] 18.2 kg/m2 Dr. Jose Miguel Herbert MD Work Phone: 4(626)088-452832 [place] [address] 02-25-2025 09:54-0400 Body mass index (BMI) [Ratio] 18.44 kg/m2 Jose Dumonti DO Work Phone: [facility] 02-25-2025 09:54-0400 Body temperature 97.3 [degF] Jose Dumonti DO Work Phone: [facility] 02-25-2025 09:54-0400 Body weight 54.2 kg Jose Dumonti DO Work Phone: [facility] 02-25-2025 09:54-0400 Diastolic blood pressure 58 mm[Hg] Jose Masci DO Work Phone: [facility] 02-25-2025 09:54-0400 Heart rate 71 /min Jose Masci DO Work Phone: [facility] 02-25-2025 09:54-0400 Respiratory rate 14 /min Jose Masci DO Work Phone: [facility] 02-25-2025 09:54-0400 SaO2% (BldA) [Mass fraction] 100 % Jose Masci DO Work Phone: [facility] 02-25-2025 09:54-0400 Systolic blood pressure 116 mm[Hg] Jose Masci DO Work Phone: [facility] 02-13-2025 10:18-0400 Body temperature 97.8 [degF] Dr. Jose Miguel Herbert MD Work Phone: 3(030)975-019578 [place] [address] 02-13-2025 10:18-0400 Body weight 54.[address] Jose Miguel Herbert MD Work Phone: 1(780)154-778978 [place] [address] 02-13-2025 10:18-0400 Diastolic blood pressure 66 mm[Hg] Dr. Jose Miguel Herbert MD Work Phone: 6(282)302-253178 [place] [address] 02-13-2025 10:18-0400 Heart rate 70 /min Dr. Jose Miguel Herbert MD Work Phone: 8(569)193-792578 [place] [address] 02-13-2025 10:18-0400 Respiratory rate 14 /min Dr. Jose Miguel Herbert MD Work Phone: 8(855)212-760178 [place] [address] 02-13-2025 10:18-0400 SaO2% (BldA) [Mass fraction] 97 % Dr. Jose Miguel Herbert MD Work Phone: 0(960)462-366578 [place] [address] 02-13-2025 10:18-0400 Systolic blood pressure 114 mm[Hg] Dr. Jose Miguel Herbert MD Work Phone: 2(154)791-702078 [place] [address] 01-28-2025 09:49-0400 Body temperature 97.7 [degF] Dr. Jose Miguel Herbert MD Work Phone: [facility] 01-28-2025 09:49-0400 Body weight 54.[address] Jose Miguel Herbert MD Work Phone: [facility] 01-28-2025 09:49-0400 Diastolic blood pressure 58 mm[Hg] Dr. Jose Miguel Herbert MD Work Phone: [facility] 01-28-2025 09:49-0400 Heart rate 72 /min Dr. Jose Miguel Herbert MD Work Phone: [facility] 01-28-2025 09:49-0400 Respiratory rate 14 /min Dr. Jose Miguel Herbert MD Work Phone: [facility] 01-28-2025 09:49-0400 SaO2% (BldA) [Mass fraction] 100 % Dr. Jose Miguel Herbert MD Work Phone: [facility] 01-28-2025 09:49-0400 Systolic blood pressure 97 mm[Hg] Dr. Jose Miguel Herbert MD Work Phone: [facility] 01-21-2025 15:33-0400 Body height 171.5 cm Chester Kwan MD Work Phone: [facility] 01-21-2025 15:33-0400 Body mass index (BMI) [Ratio] 18.83 kg/m2 Chester Kwan MD Work Phone: [facility] 01-21-2025 15:33-0400 Body weight 55.34 kg Chester Kwan MD Work Phone: [facility] 01-21-2025 15:33-0400 Diastolic blood pressure 63 mm[Hg] Chester Kwan MD Work Phone: [facility] 01-21-2025 15:33-0400 Heart rate 70 /min Chester Kwan MD Work Phone: [facility] 01-21-2025 15:33-0400 SaO2% (BldA) [Mass fraction] 100 % Chester Kwan MD Work Phone: [facility] 01-21-2025 15:33-0400 Systolic blood pressure 118 mm[Hg] Chester Kwan MD Work Phone: [facility] 01-14-2025 17:30-0400 Body temperature 97 [degF] Dr. Jose Miguel Herbert MD Work Phone: 9(032)184-278432 [place] [address] 01-14-2025 17:30-0400 Diastolic blood pressure 53 mm[Hg] Dr. Jose Miguel Herbert MD Work Phone: 3(459)301-265232 [place] [address] 01-14-2025 17:30-0400 Heart rate 80 /min Dr. Jose Miguel Herebrt MD Work Phone: 5(592)204-745932 [place] [address] 01-14-2025 17:30-0400 Respiratory rate 16 /min Dr. Jose Miguel Herbert MD Work Phone: 0(582)041-301332 [place] [address] 01-14-2025 17:30-0400 SaO2% (BldA) [Mass fraction] 94 % Dr. Jose Miguel Herbert MD Work Phone: 9(659)273-317332 [place] [address] 01-14-2025 17:30-0400 Systolic blood pressure 97 mm[Hg] Dr. Jose Miguel Herbert MD Work Phone: 8(326)721-195732 [place] [address] 01-14-2025 16:38-0400 Inhaled oxygen flow rate 6 L/min Dr. Jose Miguel Herbert MD Work Phone: 4(334)970-285378 [place] [address] 01-14-2025 09:55-0400 Body height 172.[address] Jose Miguel Herbert MD Work Phone: 7(098)924-888032 [place] [address] 01-14-2025 09:55-0400 Body mass index (BMI) [Ratio] 18.4 kg/m2 Dr. Jose Miguel Herbert MD Work Phone: 2(486)434-54[address] [place] [address] 01-14-2025 09:55-0400 Body weight 55.[address] Jose Miguel Herbert MD Work Phone: 0(926)540-345032 [place] [address] 12-03-2024 10:36-0400 Body mass index (BMI) [Ratio] 19.13 kg/m2 Jose Dumonti DO Work Phone: [facility] 12-03-2024 10:36-0400 Body temperature 97.2 [degF] Jose Dumonti DO Work Phone: [facility] 12-03-2024 10:36-0400 Body weight 56.25 kg Jose Dumonti DO Work Phone: [facility] 12-03-2024 10:36-0400 Diastolic blood pressure 56 mm[Hg] Jose Dumonti DO Work Phone: [facility] 12-03-2024 10:36-0400 Heart rate 81 /min Jose Dumonti DO Work Phone: [facility] 12-03-2024 10:36-0400 SaO2% (BldA) [Mass fraction] 98 % Jose Dumonti DO Work Phone: [facility] 12-03-2024 10:36-0400 Systolic blood pressure 92 mm[Hg] Jose Dumonti DO Work Phone: [facility] 11-07-2024 14:28-0500 Body temperature 97.8 [degF] Dr. Jose Miguel Herbert MD Work Phone: [facility] 11-07-2024 14:28-0500 Body weight 54.[address] Jose Miguel Herbert MD Work Phone: [facility] 11-07-2024 14:28-0500 Diastolic blood pressure 68 mm[Hg] Dr. Jose Miguel Herbert MD Work Phone: [facility] 11-07-2024 14:28-0500 Heart rate 79 /min Dr. Jose Miguel Herbert MD Work Phone: [facility] 11-07-2024 14:28-0500 Respiratory rate 16 /min Dr. Jose Miguel Herbert MD Work Phone: [facility] 11-07-2024 14:28-0500 SaO2% (BldA) [Mass fraction] 98 % Dr. Jose Miguel Herbert MD Work Phone: [facility] 11-07-2024 14:28-0500 Systolic blood pressure 121 mm[Hg] Dr. Jose Miguel Herbert MD Work Phone: [facility] 10-10-2024 13:42-0500 Body height 171.5 cm Yessica Hansen MD Work Phone: [facility] 10-10-2024 13:42-0500 Body mass index (BMI) [Ratio] 18.71 kg/m2 Yessica Hansen MD Work Phone: [facility] 10-10-2024 13:42-0500 Body weight 55 kg Yessica Hansen MD Work Phone: [facility] 10-10-2024 13:42-0500 Diastolic blood pressure 74 mm[Hg] Yessica Hansen MD Work Phone: [facility] 10-10-2024 13:42-0500 Heart rate 69 /min Yessica Hansen MD Work Phone: [facility] 10-10-2024 13:42-0500 SaO2% (BldA) [Mass fraction] 99 % Yessica Hansen MD Work Phone: [facility] 10-10-2024 13:42-0500 Systolic blood pressure 122 mm[Hg] Yessica Hansen MD Work Phone: [facility] 09-03-2024 10:25-0500 Body height 170.2 cm Jose Hugo DO Work Phone: [facility] 09-03-2024 10:25-0500 Body mass index (BMI) [Ratio] 18.17 kg/m2 Jose Hugo DO Work Phone: [facility] 09-03-2024 10:25-0500 Body temperature 98.71 [degF] Jose Dumonti DO Work Phone: [facility] 09-03-2024 10:25-0500 Body weight 52.62 kg Jose Hugo DO Work Phone: [facility] 09-03-2024 10:25-0500 Diastolic blood pressure 66 mm[Hg] Jose Dumonti DO Work Phone: [facility] 09-03-2024 10:25-0500 Heart rate 75 /min Jose Masci DO Work Phone: [facility] 09-03-2024 10:25-0500 SaO2% (BldA) [Mass fraction] 100 % Jose Masci DO Work Phone: [facility] 09-03-2024 10:25-0500 Systolic blood pressure 99 mm[Hg] Jose Juliai DO Work Phone: [facility] 08-06-2024 09:23-0500 Body height 171.5 cm Jose Miguel Herbert MD Work Phone: [facility] 08-06-2024 09:23-0500 Body mass index (BMI) [Ratio] 17.13 kg/m2 Jose Miguel Herbert MD Work Phone: [facility] 08-06-2024 09:23-0500 Body weight 50.35 kg Jose Miguel Herbert MD Work Phone: [facility] 08-06-2024 09:23-0500 Diastolic blood pressure 82 mm[Hg] Jose Miguel Herbert MD Work Phone: [facility] 08-06-2024 09:23-0500 Heart rate 72 /min Jose Miguel Herbert MD Work Phone: [facility] 08-06-2024 09:23-0500 Respiratory rate 16 /min Jose Miguel Herbert MD Work Phone: [facility] 08-06-2024 09:23-0500 Systolic blood pressure 120 mm[Hg] Jose Miguel Herbert MD Work Phone: [facility] 06-13-2024 11:32-0400 Body mass index (BMI) [Ratio] 16.21 kg/m2 Jose Masci DO Work Phone: [facility] 06-13-2024 11:32-0400 Body temperature 98.1 [degF] Jose Masci DO Work Phone: [facility] 06-13-2024 11:32-0400 Body weight 46.95 kg Jose Masci DO Work Phone: [facility] 06-13-2024 11:32-0400 Diastolic blood pressure 64 mm[Hg] Jose Masci DO Work Phone: [facility] 06-13-2024 11:32-0400 Heart rate 71 /min Jose Masci DO Work Phone: [facility] 06-13-2024 11:32-0400 SaO2% (BldA) [Mass fraction] 100 % Jose Masci DO Work Phone: [facility] 06-13-2024 11:32-0400 Systolic blood pressure 88 mm[Hg] Jose Masci DO Work Phone: [facility] 05-16-2024 11:01-0400 Body mass index (BMI) [Ratio] 15.82 kg/m2 Jose Masci DO Work Phone: [facility] 05-16-2024 11:01-0400 Body temperature 98.71 [degF] Jose Masci DO Work Phone: [facility] 05-16-2024 11:01-0400 Body weight 45.81 kg Jose Masci DO Work Phone: [facility] 05-16-2024 11:01-0400 Diastolic blood pressure 60 mm[Hg] Jose Masci DO Work Phone: [facility] 05-16-2024 11:01-0400 Heart rate 74 /min Jose Masci DO Work Phone: [facility] 05-16-2024 11:01-0400 SaO2% (BldA) [Mass fraction] 98 % Jose Masci DO Work Phone: [facility] 05-16-2024 11:01-0400 Systolic blood pressure 88 mm[Hg] Jose Masci DO Work Phone: [facility] 04-25-2024 12:02-0400 Diastolic blood pressure 55 mm[Hg] Treatment [facility] Work Phone: [facility] [facility] 04-25-[facility]24 12:02-0400 Heart rate 75 /min Treatment Wstr Work Phone: [facility] 04-25-2024 12:02-0400 Systolic blood pressure 91 mm[Hg] Treatment Wstr Work Phone: [facility] 04-25-2024 10:40-0400 Body mass index (BMI) [Ratio] 15.98 kg/m2 Treatment Wstr Work Phone: [facility] 04-25-2024 10:40-0400 Body temperature 98.71 [degF] Treatment Wstr Work Phone: [facility] 04-25-2024 10:40-0400 Body weight 46.27 kg Treatment Wstr Work Phone: [facility] 04-25-2024 10:40-0400 SaO2% (BldA) [Mass fraction] 99 % Treatment Wstr Work Phone: [facility] 04-23-2024 13:25-0400 Body temperature 97.81 [degF] Treatment Wstr Work Phone: [facility] 04-23-2024 13:25-0400 Diastolic blood pressure 57 mm[Hg] Treatment Wstr Work Phone: [facility] 04-23-2024 13:25-0400 Heart rate 74 /min Treatment Wstr Work Phone: [facility] 04-23-2024 13:25-0400 Respiratory rate 16 /min Treatment Wstr Work Phone: [facility] 04-23-2024 13:25-0400 Systolic blood pressure 85 mm[Hg] Treatment Wstr Work Phone: [facility] 04-18-2024 09:14-0400 Body mass index (BMI) [Ratio] 15.9 kg/m2 Jose Hugo DO Work Phone: [facility] 04-18-2024 09:14-0400 Body temperature 98.49 [degF] Jose Hugo DO Work Phone: [facility] 04-18-2024 09:14-0400 Body weight 46.04 kg Jose Masci DO Work Phone: [facility] 04-18-2024 09:14-0400 Diastolic blood pressure 70 mm[Hg] Jose Masci DO Work Phone: [facility] 04-18-2024 09:14-0400 Heart rate 75 /min Jose Masci DO Work Phone: [facility] 04-18-2024 09:14-0400 SaO2% (BldA) [Mass fraction] 99 % Jose Masci DO Work Phone: [facility] 04-18-2024 09:14-0400 Systolic blood pressure 100 mm[Hg] Jose Masci DO Work Phone: [facility] 04-09-2024 16:12-0400 Body height 170.2 cm Chester Kwan MD Work Phone: [facility] 04-09-2024 16:12-0400 Body mass index (BMI) [Ratio] 15.74 kg/m2 Chester Kwan MD Work Phone: [facility] 04-09-2024 16:12-0400 Body weight 45.59 kg Chester Kwan MD Work Phone: [facility] 04-09-2024 16:12-0400 Diastolic blood pressure 60 mm[Hg] Chester Kwan MD Work Phone: [facility] 04-09-2024 16:12-0400 Heart rate 73 /min Chester Kwan MD Work Phone: [facility] 04-09-2024 16:12-0400 SaO2% (BldA) [Mass fraction] 99 % Chester Kwan MD Work Phone: [facility] Comment on above: 04-09-2024 16:12-0400 Systolic blood pressure 96 mm[Hg] Chester Kwan MD Work Phone: [facility] 03-28-2024 10:00-0400 Body mass index (BMI) [Ratio] 16.6 kg/m2 Treatment Wstr Work Phone: [facility] 03-28-2024 10:00-0400 Body temperature 98.01 [degF] Treatment Wstr Work Phone: [facility] 03-28-2024 10:00-0400 Body weight 48.08 kg Treatment Wstr Work Phone: [facility] 03-28-2024 10:00-0400 Diastolic blood pressure 54 mm[Hg] Treatment Wstr Work Phone: [facility] 03-28-2024 10:00-0400 Heart rate 54 /min Treatment Wstr Work Phone: [facility] 03-28-2024 10:00-0400 Systolic blood pressure 87 mm[Hg] Treatment Wstr Work Phone: [facility] 03-26-2024 13:09-0400 Body mass index (BMI) [Ratio] 16.37 kg/m2 Treatment Wstr Work Phone: [facility] 03-26-2024 13:09-0400 Body temperature 97.9 [degF] Treatment Wstr Work Phone: [facility] 03-26-2024 13:09-0400 Body weight 47.4 kg Treatment Wstr Work Phone: [facility] 03-26-2024 13:09-0400 Diastolic blood pressure 82 mm[Hg] Treatment Wstr Work Phone: [facility] 03-26-2024 13:09-0400 Heart rate 78 /min Treatment Wstr Work Phone: [facility] 03-26-2024 13:09-0400 Respiratory rate 16 /min Treatment Wstr Work Phone: [facility] 03-26-2024 13:09-0400 Systolic blood pressure 102 mm[Hg] Treatment Wstr Work Phone: [facility] 03-19-2024 09:47-0400 Body mass index (BMI) [Ratio] 16.29 kg/m2 Oanh Jim HOISTING MACHINE OPERATOR.BOOSTER ASSEMBLER Work Phone: [facility] 03-19-2024 09:47-0400 Body temperature 97.2 [degF] Oanh Singhenter HOISTING MACHINE OPERATOR.BOOSTER ASSEMBLER Work Phone: [facility] 03-19-2024 09:47-0400 Body weight 47.17 kg Oanh Singhenter HOISTING MACHINE OPERATOR.BOOSTER ASSEMBLER Work Phone: [facility] 03-19-2024 09:47-0400 Diastolic blood pressure 58 mm[Hg] Oanh Singhenter HOISTING MACHINE OPERATOR.BOOSTER ASSEMBLER Work Phone: [facility] 03-19-2024 09:47-0400 Heart rate 68 /min Oanh Singhenter HOISTING MACHINE OPERATOR.BOOSTER ASSEMBLER Work Phone: [facility] 03-19-2024 09:47-0400 SaO2% (BldA) [Mass fraction] 98 % Oanh Jim HOISTING MACHINE OPERATOR.BOOSTER ASSEMBLER Work Phone: [facility] 03-19-2024 09:47-0400 Systolic blood pressure 92 mm[Hg] Oanh Jim HOISTING MACHINE OPERATOR.BOOSTER ASSEMBLER Work Phone: [facility] 02-29-2024 10:44-0400 Body temperature 97.9 [degF] Treatment Wstr Work Phone: [facility] 02-29-2024 10:44-0400 Diastolic blood pressure 47 mm[Hg] Treatment Wstr Work Phone: [facility] 02-29-2024 10:44-0400 Heart rate 78 /min Treatment Wstr Work Phone: [facility] 02-29-2024 10:44-0400 SaO2% (BldA) [Mass fraction] 100 % Treatment Wstr Work Phone: [facility] 02-29-2024 10:44-0400 Systolic blood pressure 86 mm[Hg] Treatment Wstr Work Phone: [facility] 02-27-2024 13:19-0400 Body mass index (BMI) [Ratio] 16.05 kg/m2 Treatment Wstr Work Phone: [facility] 02-27-2024 13:190400 Body temperature 97.59 [degF] Treatment Wstr Work Phone: [facility] 02-27-2024 13:19-0400 Body weight 46.49 kg Treatment Wstr Work Phone: [facility] 02-27-2024 13:19-0400 Diastolic blood pressure 47 mm[Hg] Treatment Wstr Work Phone: [facility] Comment on above: MD chung. OK to treat per Dr. Hugo 02-27-2024 13:19-0400 Heart rate 78 /min Treatment Wstr Work Phone: [facility] 02-27-2024 13:19-0400 SaO2% (BldA) [Mass fraction] 100 % Treatment Wstr Work Phone: [facility] 02-27-2024 13:19-0400 Systolic blood pressure 75 mm[Hg] Treatment Wstr Work Phone: [facility] Comment on above: MD chung. OK to treat per Dr. Hugo 02-01-2024 13:18-0400 Body temperature 99.1 [degF] Treatment Wstr Work Phone: [facility] 02-01-2024 13:18-0400 Diastolic blood pressure 46 mm[Hg] Treatment Wstr Work Phone: [facility] 02-01-2024 13:18-0400 Heart rate 83 /min Treatment Wstr Work Phone: [facility] 02-01-2024 13:18-0400 Respiratory rate 16 /min Treatment Wstr Work Phone: [facility] 02-01-2024 13:18-0400 SaO2% (BldA) [Mass fraction] 98 % Treatment Wstr Work Phone: [facility] 02-01-2024 13:18-0400 Systolic blood pressure 83 mm[Hg] Treatment Wstr Work Phone: [facility] 01-30-2024 08:45-0400 Body mass index (BMI) [Ratio] 15.98 kg/m2 Treatment Wstr Work Phone: [facility] 01-30-2024 08:45-0400 Body temperature 98.1 [degF] Treatment Wstr Work Phone: [facility] 01-30-2024 08:45-0400 Body weight 46.27 kg Treatment Wstr Work Phone: [facility] 01-30-2024 08:45-0400 Diastolic blood pressure 54 mm[Hg] Treatment Wstr Work Phone: [facility] 01-30-2024 08:45-0400 Heart rate 78 /min Treatment Wstr Work Phone: [facility] 01-30-2024 08:45-0400 Respiratory rate 16 /min Treatment Wstr Work Phone: [facility] 01-30-2024 08:45-0400 Systolic blood pressure 88 mm[Hg] Treatment Wstr Work Phone: [facility] 01-04-2024 10:36-0400 Body mass index (BMI) [Ratio] 15.82 kg/m2 Jose Masci DO Work Phone: [facility] 01-04-2024 10:36-0400 Body temperature 98.71 [degF] Jose Masci DO Work Phone: [facility] 01-04-2024 10:36-0400 Body weight 45.81 kg Jose Masci DO Work Phone: [facility] 01-04-2024 10:36-0400 Diastolic blood pressure 34 mm[Hg] Jose Masci DO Work Phone: [facility] 01-04-2024 10:36-0400 Heart rate 85 /min Jose Masci DO Work Phone: [facility] 01-04-2024 10:36-0400 Respiratory rate 12 /min Jose Masci DO Work Phone: [facility] 01-04-2024 10:36-0400 SaO2% (BldA) [Mass fraction] 97 % Jose Masci DO Work Phone: [facility] 01-04-2024 10:36-0400 Systolic blood pressure 61 mm[Hg] Jose Masci DO Work Phone: [facility] 12-18-2023 10:59-0400 Body temperature 97.8 [degF] [facility] 12-18-2023 10:59-0400 Diastolic blood pressure 83 mm[Hg] [facility] 12-18-2023 10:59-0400 Heart rate 72 /min [facility] 12-18-2023 10:59-0400 Respiratory rate 16 /min [facility] 12-18-2023 10:59-0400 SaO2% (BldA) [Mass fraction] 99 % [facility] 12-18-2023 10:59-0400 Systolic blood pressure 134 mm[Hg] [facility] 12-18-2023 09:54-0400 Body height 172.[address] [facility] 12-18-2023 09:54-0400 Body mass index (BMI) [Ratio] 15.7 kg/m2 [facility] 12-18-2023 09:54-0400 Body weight 47.[address] [facility] 12-18-2023 09:04-0400 Body temperature 98.29 [degF] Jose Masci DO Work Phone: [facility] 12-18-2023 09:04-0400 Body weight 46.04 kg Jose Masci DO Work Phone: [facility] 12-18-2023 09:04-0400 Diastolic blood pressure 49 mm[Hg] Jose Masci DO Work Phone: [facility] 12-18-2023 09:04-0400 Heart rate 88 /min Jose Masci DO Work Phone: [facility] 12-18-2023 09:04-0400 SaO2% (BldA) [Mass fraction] 99 % Jose Masci DO Work Phone: [facility] 12-18-2023 09:04-0400 Systolic blood pressure 75 mm[Hg] Jose Masci DO Work Phone: [facility] 12-15-2023 19:01-0400 Body temperature 97.4 [degF] [facility] 12-15-2023 19:01-0400 Diastolic blood pressure 74 mm[Hg] [facility] 12-15-2023 19:01-0400 Heart rate 73 /min [facility] 12-15-2023 19:01-0400 Respiratory rate 16 /min [facility] 12-15-2023 19:01-0400 SaO2% (BldA) [Mass fraction] 97 % [facility] 12-15-2023 19:01-0400 Systolic blood pressure 121 mm[Hg] [facility] 12-15-2023 12:33-0400 Body height [address] [facility] 12-15-2023 12:33-0400 Body mass index (BMI) [Ratio] 16.3 kg/m2 [facility] 12-15-2023 12:33-0400 Body weight 48.[address] [facility] 12-11-2023 13:30-0400 Diastolic blood pressure 60 mm[Hg] Ankur Benavidez PA-C Work Phone: [facility] 12-11-2023 13:30-0400 Heart rate 91 /min Ankur Benavidez PA-C Work Phone: [facility] 12-11-2023 13:30-0400 Respiratory rate 16 /min Ankur Benavidez PA-C Work Phone: [facility] 12-11-2023 13:30-0400 SaO2% (BldA) [Mass fraction] 99 % Ankur Benavidez PA-C Work Phone: [facility] 12-11-2023 13:30-0400 Systolic blood pressure 112 mm[Hg] Ankur Benavidez PA-C Work Phone: [facility] 11-30-2023 14:43-0400 Body temperature 98.2 [degF] Injection Wstr Work Phone: [facility] 11-29-2023 15:44-0400 Body weight 50.8 kg Jose Miguel Herbert MD Work Phone: [facility] 11-29-2023 15:44-0400 Diastolic blood pressure 64 mm[Hg] Jose Miguel Herbert MD Work Phone: [facility] 11-29-2023 15:44-0400 Heart rate 76 /min Jose Miguel Herbert MD Work Phone: [facility] 11-29-2023 15:44-0400 Systolic blood pressure 98 mm[Hg] Jose Miguel Herbert MD Work Phone: [facility] 11-29-2023 13:08-0400 Body temperature 97.81 [degF] Treatment Wstr Work Phone: [facility] 11-29-2023 13:08-0400 Diastolic blood pressure 78 mm[Hg] Treatment Wstr Work Phone: [facility] 11-29-2023 13:08-0400 Heart rate 76 /min Treatment Wstr Work Phone: [facility] 11-29-2023 13:08-0400 Respiratory rate 16 /min Treatment Wstr Work Phone: [facility] 11-29-2023 13:08-0400 Systolic blood pressure 122 mm[Hg] Treatment Wstr Work Phone: [facility] 11-28-2023 13:04-0400 Body temperature 98.6 [degF] Treatment Wstr Work Phone: [facility] 11-28-2023 13:04-0400 Diastolic blood pressure 65 mm[Hg] Treatment Wstr Work Phone: [facility] 11-28-2023 13:04-0400 Heart rate 87 /min Treatment Wstr Work Phone: [facility] 11-28-2023 13:04-0400 SaO2% (BldA) [Mass fraction] 98 % Treatment Wstr Work Phone: [facility] 11-28-2023 13:04-0400 Systolic blood pressure 100 mm[Hg] Treatment Wstr Work Phone: [facility] 11-27-2023 11:33-0400 Body temperature 98.49 [degF] Oanh Jim HOISTING MACHINE OPERATOR.BOOSTER ASSEMBLER Work Phone: [facility] 11-27-2023 11:33-0400 Body weight 48.26 kg Oanh Jim HOISTING MACHINE OPERATOR.BOOSTER ASSEMBLER Work Phone: [facility] 11-27-2023 11:33-0400 Diastolic blood pressure 68 mm[Hg] Oanh Jim HOISTING MACHINE OPERATOR.BOOSTER ASSEMBLER Work Phone: [facility] 11-27-2023 11:33-0400 Heart rate 84 /min [place] Jim HOISTING MACHINE OPERATOR.BOOSTER ASSEMBLER Work Phone: [facility] 11-27-2023 11:33-0400 SaO2% (BldA) [Mass fraction] 99 % Oanh Jim HOISTING MACHINE OPERATOR.BOOSTER ASSEMBLER Work Phone: [facility] 11-27-2023 11:33-0400 Systolic blood pressure 97 mm[Hg] [place] Jim HOISTING MACHINE OPERATOR.BOOSTER ASSEMBLER Work Phone: [facility] 11-24-2023 12:45-0500 Body weight 49.9 kg Xena Latasha HOISTING MACHINE OPERATOR.BOOSTER ASSEMBLER Work Phone: [facility] 11-24-2023 12:45-0500 Diastolic blood pressure 64 mm[Hg] Xena Latasha HOISTING MACHINE OPERATOR.BOOSTER ASSEMBLER Work Phone: [facility] 11-24-2023 12:45-0500 Heart rate 93 /min Xena Latasha HOISTING MACHINE OPERATOR.BOOSTER ASSEMBLER Work Phone: [facility] 11-24-2023 12:45-0500 Systolic blood pressure 96 mm[Hg] Xena Latasha HOISTING MACHINE OPERATOR.BOOSTER ASSEMBLER Work Phone: [facility] 11-16-2023 15:11-0500 Body height 170.2 cm Talia Reay HOISTING MACHINE OPERATOR.BOOSTER ASSEMBLER Work Phone: [facility] 11-16-2023 15:11-0500 Body weight 47.31 kg Talia Reay HOISTING MACHINE OPERATOR.BOOSTER ASSEMBLER Work Phone: [facility] 11-16-2023 15:11-0500 Diastolic blood pressure 61 mm[Hg] Talia Reay HOISTING MACHINE OPERATOR.BOOSTER ASSEMBLER Work Phone: [facility] 11-16-2023 15:11-0500 Heart rate 84 /min Talia Reay HOISTING MACHINE OPERATOR.BOOSTER ASSEMBLER Work Phone: [facility] 11-16-2023 15:11-0500 SaO2% (BldA) [Mass fraction] 99 % Talia Reay HOISTING MACHINE OPERATOR.BOOSTER ASSEMBLER Work Phone: [facility] 11-16-2023 15:11-0500 Systolic blood pressure 102 mm[Hg] Talia Reay HOISTING MACHINE OPERATOR.BOOSTER ASSEMBLER Work Phone: [facility] 11-02-2023 15:26-0500 Body temperature 97.39 [degF] Injection Wstr Work Phone: [facility] 11-01-2023 14:10-0500 Body temperature 97.5 [degF] Treatment Wstr Work Phone: [facility] 11-01-2023 14:10-0500 Diastolic blood pressure 68 mm[Hg] Treatment Wstr Work Phone: [facility] 11-01-2023 14:10-0500 Heart rate 80 /min Treatment Wstr Work Phone: [facility] 11-01-2023 14:10-0500 SaO2% (BldA) [Mass fraction] 100 % Treatment Wstr Work Phone: [facility] 11-01-2023 14:10-0500 Systolic blood pressure 127 mm[Hg] Treatment Wstr Work Phone: [facility] 10-31-2023 10:00-0500 Body temperature 97.59 [degF] Treatment Wstr Work Phone: [facility] 10-31-2023 10:00-0500 Diastolic blood pressure 69 mm[Hg] Treatment Wstr Work Phone: [facility] 10-31-2023 10:00-0500 Heart rate 75 /min Treatment Wstr Work Phone: [facility] 10-31-2023 10:00-0500 Respiratory rate 16 /min Treatment Wstr Work Phone: [facility] 10-31-2023 10:00-0500 SaO2% (BldA) [Mass fraction] 100 % Treatment Wstr Work Phone: [facility] 10-31-2023 10:00-0500 Systolic blood pressure 100 mm[Hg] Treatment Wstr Work Phone: [facility] 10-27-2023 11:30-0500 Body temperature 99 [degF] Jose Masci DO Work Phone: [facility] 10-27-2023 11:30-0500 Body weight 51.94 kg Jose Masci DO Work Phone: [facility] 10-27-2023 11:30-0500 Diastolic blood pressure 62 mm[Hg] Jose Masci DO Work Phone: [facility] 10-27-2023 11:30-0500 Heart rate 87 /min Jose Masci DO Work Phone: [facility] 10-27-2023 11:30-0500 SaO2% (BldA) [Mass fraction] 100 % Jose Masci DO Work Phone: [facility] 10-27-2023 11:30-0500 Systolic blood pressure 99 mm[Hg] Jose Masci DO Work Phone: [facility] 10-23-2023 14:16-0500 Body height 170.2 cm Gumaro Elisa DO Work Phone: [facility] 10-23-2023 14:16-0500 Body weight 55.34 kg Gumaro Elisa DO Work Phone: [facility] 08-25-2023 09:14-0500 Body temperature 97.59 [degF] Treatment Wstr Work Phone: [facility] 08-25-2023 09:14-0500 Body weight 60.55 kg Treatment Wstr Work Phone: [facility] 08-25-2023 09:14-0500 Heart rate 101 /min Treatment Wstr Work Phone: [facility] 08-25-2023 09:14-0500 Respiratory rate 16 /min Treatment Wstr Work Phone: [facility] 08-25-2023 09:14-0500 SaO2% (BldA) [Mass fraction] 100 % Treatment Wstr Work Phone: [facility] 08-24-2023 10:01-0500 Body weight 60.78 kg Treatment Wstr Work Phone: [facility] 08-24-2023 08:55-0500 Body temperature 97.39 [degF] Treatment Wstr Work Phone: [facility] 08-24-2023 08:55-0500 Diastolic blood pressure 78 mm[Hg] Treatment Wstr Work Phone: [facility] 08-24-2023 08:55-0500 Heart rate 64 /min Treatment Wstr Work Phone: [facility] 08-24-2023 08:55-0500 Systolic blood pressure 143 mm[Hg] Treatment Wstr Work Phone: [facility] 08-23-2023 12:47-0500 Body temperature 97 [degF] Treatment Wstr Work Phone: [facility] 08-23-2023 12:47-0500 Diastolic blood pressure 57 mm[Hg] Treatment Wstr Work Phone: [facility] 08-23-2023 12:47-0500 Heart rate 79 /min Treatment Wstr Work Phone: [facility] 08-23-2023 12:47-0500 SaO2% (BldA) [Mass fraction] 100 % Treatment Wstr Work Phone: [facility] 08-23-2023 12:47-0500 Systolic blood pressure 103 mm[Hg] Treatment Wstr Work Phone: [facility] 08-22-2023 13:30-0500 Body temperature 97.3 [degF] Treatment Wstr Work Phone: [facility] 08-22-2023 13:30-0500 Body weight 54.43 kg Treatment Wstr Work Phone: [facility] 08-22-2023 13:30-0500 Diastolic blood pressure 79 mm[Hg] Treatment Wstr Work Phone: [facility] 08-22-2023 13:30-0500 Heart rate 74 /min Treatment Wstr Work Phone: [facility] 08-22-2023 13:30-0500 Respiratory rate 16 /min Treatment Wstr Work Phone: [facility] 08-22-2023 13:30-0500 SaO2% (BldA) [Mass fraction] 99 % Treatment Wstr Work Phone: [facility] 08-22-2023 13:30-0500 Systolic blood pressure 134 mm[Hg] Treatment Wstr Work Phone: [facility] 08-17-2023 11:36-0500 Body temperature 97.7 [degF] Jose Masci DO Work Phone: [facility] 08-17-2023 11:36-0500 Body weight 56.25 kg Jose Masci DO Work Phone: [facility] 08-17-2023 11:36-0500 Diastolic blood pressure 76 mm[Hg] Jose Masci DO Work Phone: [facility] 08-17-2023 11:36-0500 Heart rate 87 /min Jose Masci DO Work Phone: [facility] 08-17-2023 11:36-0500 SaO2% (BldA) [Mass fraction] 100 % Jose Masci DO Work Phone: [facility] 08-17-2023 11:36-0500 Systolic blood pressure 137 mm[Hg] Jose Masci DO Work Phone: [facility] 08-16-2023 09:03-0500 Body temperature 97 [degF] Treatment Wstr Work Phone: [facility] 08-16-2023 09:03-0500 Diastolic blood pressure 67 mm[Hg] Treatment Wstr Work Phone: [facility] 08-16-2023 09:03-0500 Heart rate 57 /min Treatment Wstr Work Phone: [facility] 08-16-2023 09:03-0500 Systolic blood pressure 116 mm[Hg] Treatment Wstr Work Phone: [facility] 08-15-2023 09:00-0500 Body temperature 97.9 [degF] Jose Masci DO Work Phone: [facility] 08-15-2023 09:00-0500 Body weight 55.11 kg Jose Masci DO Work Phone: [facility] 08-15-2023 09:00-0500 Diastolic blood pressure 75 mm[Hg] Jose Masci DO Work Phone: [facility] 08-15-2023 09:00-0500 Heart rate 91 /min Jose Masci DO Work Phone: [facility] 08-15-2023 09:00-0500 SaO2% (BldA) [Mass fraction] 99 % Jose Masci DO Work Phone: [facility] 08-15-2023 09:00-0500 Systolic blood pressure 126 mm[Hg] Ojse Masci DO Work Phone: [facility] 08-02-2023 08:13-0500 Body temperature 96.91 [degF] Treatment Wstr Work Phone: [facility] 08-02-2023 08:13-0500 Body weight 54.66 kg Treatment Wstr Work Phone: [facility] 08-02-2023 08:13-0500 Diastolic blood pressure 71 mm[Hg] Treatment Wstr Work Phone: [facility] 08-02-2023 08:13-0500 Heart rate 80 /min Treatment Wstr Work Phone: [facility] 08-02-2023 08:13-0500 Systolic blood pressure 139 mm[Hg] Treatment Wstr Work Phone: [facility] 07-31-2023 13:58-0500 Body height 170.2 cm Chester Kwan MD Work Phone: [facility] 07-31-2023 13:58-0500 Body weight 53.71 kg Chester Kwan MD Work Phone: [facility] 07-31-2023 13:58-0500 Diastolic blood pressure 71 mm[Hg] Chester Kwan MD Work Phone: [facility] [facility] 07-31-2023 13:58-0500 Heart rate 76 /min Chester Kwan MD Work Phone: [facility] 07-31-2023 13:58-0500 SaO2% (BldA) [Mass fraction] 100 % Chester Kwan MD Work Phone: [facility] 07-31-2023 13:58-0500 Systolic blood pressure 116 mm[Hg] Chester Kwan MD Work Phone: [facility] 07-26-2023 08:00-0500 Body temperature 97.2 [degF] Treatment Wstr Work Phone: [facility] 07-26-2023 08:00-0500 Body weight 55.34 kg Treatment Wstr Work Phone: [facility] 07-26-2023 08:00-0500 Diastolic blood pressure 62 mm[Hg] Treatment Wstr Work Phone: [facility] 07-26-2023 08:00-0500 Heart rate 82 /min Treatment Wstr Work Phone: [facility] 07-26-2023 08:00-0500 Systolic blood pressure 94 mm[Hg] Treatment Wstr Work Phone: [facility] 07-19-2023 08:14-0400 Body temperature 96.8 [degF] Treatment Wstr Work Phone: [facility] 07-19-2023 08:14-0400 Diastolic blood pressure 72 mm[Hg] Treatment Wstr Work Phone: [facility] 07-19-2023 08:14-0400 Heart rate 79 /min Treatment Wstr Work Phone: [facility] 07-19-2023 08:14-0400 Respiratory rate 16 /min Treatment Wstr Work Phone: [facility] 07-19-2023 08:14-0400 Systolic blood pressure 110 mm[Hg] Treatment Wstr Work Phone: [facility] 07-18-2023 09:01-0400 Body temperature 96.6 [degF] Jose Masci DO Work Phone: [facility] 07-18-2023 09:01-0400 Body weight 52.84 kg Jose Masci DO Work Phone: [facility] 07-18-2023 09:01-0400 Diastolic blood pressure 71 mm[Hg] Jose Masci DO Work Phone: [facility] 07-18-2023 09:01-0400 Heart rate 81 /min Jose Masci DO Work Phone: [facility] 07-18-2023 09:01-0400 SaO2% (BldA) [Mass fraction] 100 % Jose Masci DO Work Phone: [facility] 07-18-2023 09:01-0400 Systolic blood pressure 115 mm[Hg] Jose Masci DO Work Phone: [facility] 06-28-2023 08:09-0400 Body temperature 97.2 [degF] Treatment Wstr Work Phone: [facility] 06-28-2023 08:09-0400 Body weight 51.26 kg Treatment Wstr Work Phone: [facility] 06-28-2023 08:09-0400 Diastolic blood pressure 58 mm[Hg] Treatment Wstr Work Phone: [facility] 06-28-2023 08:09-0400 Heart rate 75 /min Treatment Wstr Work Phone: [facility] 06-28-2023 08:09-0400 SaO2% (BldA) [Mass fraction] 100 % Treatment Wstr Work Phone: [facility] 06-28-2023 08:09-0400 Systolic blood pressure 104 mm[Hg] Treatment Wstr Work Phone: [facility] 06-07-2023 08:43-0400 Body temperature 97.39 [degF] Treatment Wstr Work Phone: [facility] 06-07-2023 08:43-0400 Body weight 51.71 kg Treatment Wstr Work Phone: [facility] 06-07-2023 08:43-0400 Diastolic blood pressure 59 mm[Hg] Treatment Wstr Work Phone: [facility] 06-07-2023 08:43-0400 Heart rate 61 /min Treatment Wstr Work Phone: [facility] 06-07-2023 08:43-0400 Systolic blood pressure 89 mm[Hg] Treatment Wstr Work Phone: [facility] 05-31-2023 08:33-0400 Body temperature 97.2 [degF] Treatment Wstr Work Phone: [facility] 05-31-2023 08:33-0400 Body weight 51.94 kg Treatment Wstr Work Phone: [facility] 05-31-2023 08:33-0400 Diastolic blood pressure 56 mm[Hg] Treatment Wstr Work Phone: [facility] 05-31-2023 08:33-0400 Heart rate 58 /min Treatment Wstr Work Phone: [facility] 05-31-2023 08:33-0400 SaO2% (BldA) [Mass fraction] 97 % Treatment Wstr Work Phone: [facility] 05-31-2023 08:33-0400 Systolic blood pressure 82 mm[Hg] Treatment Wstr Work Phone: [facility] 05-27-2023 08:42-0400 Body height 170.2 cm Jose Miguel Herbert MD Work Phone: [facility] 05-27-2023 08:42-0400 Body temperature 97.81 [degF] Jose Miguel Herbert MD Work Phone: [facility] 05-27-2023 08:42-0400 Body weight 50.35 kg Jose Miguel Herbert MD Work Phone: [facility] 05-27-2023 08:42-0400 Diastolic blood pressure 70 mm[Hg] Jose Miguel Herbert MD Work Phone: [facility] 05-27-2023 08:42-0400 Heart rate 67 /min Jose Miguel Herbert MD Work Phone: [facility] 05-27-2023 08:42-0400 Respiratory rate 16 /min Jose Miguel Herbert MD Work Phone: [facility] 05-27-2023 08:42-0400 Systolic blood pressure 102 mm[Hg] Jose Miguel Herbert MD Work Phone: [facility] 05-24-2023 09:45-0400 Body temperature 97.5 [degF] Treatment Wstr Work Phone: [facility] 05-24-2023 09:45-0400 Diastolic blood pressure 50 mm[Hg] Treatment Wstr Work Phone: [facility] 05-24-2023 09:45-0400 Heart rate 61 /min Treatment Wstr Work Phone: [facility] 05-24-2023 09:45-0400 SaO2% (BldA) [Mass fraction] 99 % Treatment Wstr Work Phone: [facility] 05-24-2023 09:45-0400 Systolic blood pressure 82 mm[Hg] Treatment Wstr Work Phone: [facility] 05-18-2023 07:00-0400 Body temperature 97.5 [degF] Treatment Wstr Work Phone: [facility] 05-18-2023 07:00-0400 Body weight 52.16 kg Treatment Wstr Work Phone: [facility] 05-18-2023 07:00-0400 Diastolic blood pressure 61 mm[Hg] Treatment Wstr Work Phone: [facility] 05-18-2023 07:00-0400 Heart rate 59 /min Treatment Wstr Work Phone: [facility] 05-18-2023 07:00-0400 Systolic blood pressure 101 mm[Hg] Treatment Wstr Work Phone: [facility] 05-03-2023 07:53-0400 Body temperature 97.5 [degF] Treatment Wstr Work Phone: [facility] 05-03-2023 07:53-0400 Body weight 53.75 kg Treatment Wstr Work Phone: [facility] 05-03-2023 07:53-0400 Diastolic blood pressure 68 mm[Hg] Treatment Wstr Work Phone: [facility] 05-03-2023 07:53-0400 Heart rate 70 /min Treatment Wstr Work Phone: [facility] 05-03-2023 07:53-0400 Systolic blood pressure 112 mm[Hg] Treatment Wstr Work Phone: [facility] 05-02-2023 16:10-0400 Body height 170.2 cm Chester Kwan MD Work Phone: [facility] 05-02-2023 16:10-0400 Body weight 51.71 kg Chester Kwan MD Work Phone: [facility] 05-02-2023 16:10-0400 Diastolic blood pressure 66 mm[Hg] Chester Kwan MD Work Phone: [facility] 05-02-2023 16:10-0400 Heart rate 68 /min Chester Kwan MD Work Phone: [facility] 05-02-2023 16:10-0400 SaO2% (BldA) [Mass fraction] 99 % Chester Kwan MD Work Phone: [facility] 05-02-2023 16:10-0400 Systolic blood pressure 112 mm[Hg] Chester Kwan MD Work Phone: [facility] 04-26-2023 10:07-0400 Diastolic blood pressure 56 mm[Hg] Treatment Wstr Work Phone: [facility] 04-26-2023 10:07-0400 Systolic blood pressure 109 mm[Hg] Treatment Wstr Work Phone: [facility] 04-26-2023 09:35-0400 Heart rate 62 /min Treatment Wstr Work Phone: [facility] 04-26-2023 07:00-0400 Body temperature 97.2 [degF] Treatment Wstr Work Phone: [facility] 04-19-2023 15:51-0400 Body temperature 97.5 [degF] Jose Masci DO Work Phone: [facility] 04-19-2023 15:51-0400 Body weight 53.07 kg Jose Masci DO Work Phone: [facility] 04-19-2023 15:51-0400 Diastolic blood pressure 72 mm[Hg] Jose Masci DO Work Phone: [facility] 04-19-2023 15:51-0400 Heart rate 77 /min Jose Masci DO Work Phone: [facility] 04-19-2023 15:51-0400 SaO2% (BldA) [Mass fraction] 99 % Jose Masci DO Work Phone: [facility] 04-19-2023 15:51-0400 Systolic blood pressure 115 mm[Hg] Jose Masci DO Work Phone: [facility] 04-06-2023 09:27-0400 Body height 170 cm Jose Masci DO Work Phone: [facility] 04-06-2023 09:27-0400 Body temperature 97.2 [degF] Jose Masci DO Work Phone: [facility] 04-06-2023 09:27-0400 Body weight 52.16 kg Jose Masci DO Work Phone: [facility] 04-06-2023 09:27-0400 Diastolic blood pressure 48 mm[Hg] Jose Masci DO Work Phone: [facility] 04-06-2023 09:27-0400 Heart rate 56 /min Jose Masci DO Work Phone: [facility] 04-06-2023 09:27-0400 SaO2% (BldA) [Mass fraction] 100 % Jose Masci DO Work Phone: [facility] 04-06-2023 09:27-0400 Systolic blood pressure 89 mm[Hg] Jose Masci DO Work Phone: [facility] 04-03-2023 13:04-0400 Body height 170.9 cm Pulm Wstr Work Phone: [facility] 04-03-2023 13:04-0400 Body weight 51.71 kg Pulm Wstr Work Phone: [facility] 04-03-2023 13:04-0400 Heart rate 65 /min Pulm Wstr Work Phone: [facility] 04-03-2023 13:04-0400 Respiratory rate 12 /min Pulm Wstr Work Phone: [facility] 04-03-2023 13:04-0400 SaO2% (BldA) [Mass fraction] 99 % Pulm Wstr Work Phone: [facility] 03-23-2023 13:41-0400 Body weight 52.62 kg Jose Miguel Herbert MD Work Phone: [facility] 03-23-2023 13:41-0400 Diastolic blood pressure 62 mm[Hg] Jose Miguel Herbert MD Work Phone: [facility] 03-23-2023 13:41-0400 Heart rate 72 /min Jose Miguel Herbert MD Work Phone: [facility] 03-23-2023 13:41-0400 Respiratory rate 16 /min Jose Miguel Herbert MD Work Phone: [facility] 03-23-2023 13:41-0400 Systolic blood pressure 92 mm[Hg] Jose Miguel Herbert MD Work Phone: [facility] 03-18-2023 09:23-0400 Body temperature 98.1 [degF] Dr. Jose Miguel Herbert Work Phone: [facility] 03-18-2023 09:23-0400 Diastolic blood pressure 67 mm[Hg] Dr. Jose Miguel Herbert Work Phone: 5(280)363-182478 [place] [address] 03-18-2023 09:23-0400 Heart rate 60 /min Dr. Jose Miguel Herbert Work Phone: 9(987)833-131032 [place] [address] 03-18-2023 09:23-0400 Respiratory rate 14 /min Dr. Jose Miguel Herbert Work Phone: 9(124)666-658032 [place] [address] 03-18-2023 09:23-0400 SaO2% (BldA) [Mass fraction] 99 % Dr. Jose Miguel Herbert Work Phone: 9(616)657-636178 [place] [address] 03-18-2023 09:23-0400 Systolic blood pressure 117 mm[Hg] Dr. Jose Miguel Herbert Work Phone: 4(600)720-588778 [place] [address] 03-17-2023 14:19-0400 Body height 172.[address] Jose Miguel Herbert Work Phone: 1(338)343-270178 [place] [address] 03-17-2023 14:19-0400 Body mass index (BMI) [Ratio] 17.5 kg/m2 Dr. Jose Miguel Herbert Work Phone: 9(945)354-486778 [place] [address] 03-17-2023 14:19-0400 Body weight 52.[address] Jose Miguel Herbert Work Phone: 8(426)910-733278 [place] [address] 03-17-2023 14:01-0400 Body temperature 98 [degF] [facility] 03-17-2023 14:01-0400 Diastolic blood pressure 78 mm[Hg] [facility] 03-17-2023 14:01-0400 Heart rate 54 /min [facility] 03-17-2023 14:01-0400 Respiratory rate 12 /min [facility] 03-17-2023 14:01-0400 Systolic blood pressure 126 mm[Hg] [facility] 03-17-2023 12:47-0400 SaO2% (BldA) [Mass fraction] 99 % [facility] 03-17-2023 11:03-0400 Body height 172.[address] [facility] 03-17-2023 11:03-0400 Body mass index (BMI) [Ratio] 17.4 kg/m2 [facility] 03-17-2023 11:03-0400 Body weight 52.[address] [facility] 01-27-2022 13:56-0400 Diastolic blood pressure 74 mm[Hg] Jose Miguel Herbert MD Work Phone: [facility] 01-27-2022 13:56-0400 Systolic blood pressure 134 mm[Hg] Jose Miguel Herbert MD Work Phone: [facility] 01-27-2022 13:11-0400 Body height 170.2 cm Jose Miguel Herbert MD Work Phone: [facility] 01-27-2022 13:11-0400 Body weight 54.88 kg Jose Miguel Herbert MD Work Phone: [facility] 01-27-2022 13:11-0400 Heart rate 68 /min Jose Miguel Herbert MD Work Phone: [facility] 01-27-2022 13:11-0400 Respiratory rate 16 /min Jose Miguel Herbert MD Work Phone: [facility] Encounters Encounter Date Encounter Type Care Provider Facility Start: 07-31-2025 ambulatory Jose Miguel Herbert Facility :[facility] Start: 07-29-2025 End: 07-29-2025 ambulatory JOSE MIGUEL HERBERT Facility:[facility] Start: 07-08-2025 End: 07-08-2025 ambulatory JOSE MIGUEL HERBERT Facility:[facility] Start: 06-10-2025 End: 06-10-2025 ambulatory JOSE MIGUEL HERBERT Facility:[facility] Start: 05-20-2025 End: 05-20-2025 Office outpatient visit 25 minutes Jose Hugo DO Work Phone: Hematology/Oncology Comment on above: Lymphoplasmacytic ly mphoma (HCC) (Primary Dx); Light chain (AL) amyloidosis (HCC); Cardiac amyloidosis (HCC) Start: 05-20-2025 End: 05-20-2025 ambulatory JOSE MIGUEL HERBERT Facility:[facility] Start: 05-16-2025 End: 05-16-2025 ambulatory To[facility] Comment on above: SPP Oral Oncology/he matology - Medication Refill (Brukinsa) Start: 05-15-2025 End: 05-15-2025 Patient encounter procedure Shannen WOODS -[facility] Work Phone: Start: 05-15-2025 End: 05-15-[address] Jose Miguel Herbert MD Work Phone: -[facility] Start: 05-14-2025 End: 05-14-2025 Refill Jose Hugo DO Work Phone: Hematology/Oncology Comment on above: Refill Request Start: 05-13-2025 End: 05-13-2025 ambulatory JOSE MIGUEL HERBERT Facility:[facility] Start: 05-02-2025 End: 05-15-2025 Chart abstracting June Simms MA [facility] Comment on above: ext document (Operat ivana Report) Start: 05-01-2025 End: 05-01-2025 Chart abstracting Jose Miguel Herbert MD Work Phone: [facility] [place] Comment on above: Abstract (Vasular H& P) Start: 05-01-2025 ambulatory Alvarado Brody Facility:[facility] Start: 05-01-2025 Non-patient / Non-visit Dr. Alvarado pillai MD -[facility] Start: 05-01-2025 End: 05-01-2025 Admission to same day surgery center Dr. Alvarado Brody MD -[employer]/Special Procedures Work Phone: Start: 05-01-2025 End: 05-01-[address] Jose Miguel Herbert MD Work Phone: -[facility]/Special Procedures Start: 04-22-2025 End: 04-22-2025 ambulatory JOSE MIGUEL HERBERT Facility:[facility] Start: 04-15-2025 End: 04-15-2025 Specialty Pharmacy To[facility] Comment on above: SPP Oral Oncology/he matology - Medication Refill (Brukinsa) Start: 04-04-2025 End: 04-04-2025 Refill Jose Hugo DO Work Phone: Hematology/Oncology Comment on above: Refill Request Start: 03-18-2025 End: 03-18-2025 ambulatory JOSE MIGUEL HERBERT Facility:[facility] Start: 03-14-2025 End: 03-14-2025 Specialty Pharmacy Alvarado Christ[facility] Comment on above: SPP Oral Oncology/he matology - Medication Refill (Brukinsa) Start: 02-25-2025 End: 02-25-2025 Office outpatient visit 25 minutes Jose Hugo DO Work Phone: Hematology/Oncology Comment on above: Lymphoplasmacytic ly mphoma (HCC) (Primary Dx); Light chain (AL) amyloidosis (HCC); Cardiac amyloidosis (HCC) Start: 02-25-2025 End: 02-25-2025 ambulatory JOSE MIGUEL HERBERT Facility:[facility] Start: 02-18-2025 End: 02-18-2025 ambulatory JOSE MIGUEL HERBERT Facility:[facility] Start: 02-16-2025 End: 02-17-2025 Refill Jose Hugo DO Work Phone: Hematology/Oncology Comment on above: Refill Request Start: 02-13-2025 End: 02-13-2025 Patient encounter procedure Shannen WOODS -[facility] Work Phone: Start: 02-13-2025 End: 02-13-[address] Jose Miguel Herbert MD Work Phone: [facility] Work Phone: Start: 02-04-2025 End: 02-04-2025 ambulatory JOSE MIGUEL HERBERT Facility:[facility] Start: 01-30-2025 End: 01-30-2025 ambulatory JOSE MIGUEL HERBERT Facility:[facility] Start: 01-28-2025 End: 01-28-2025 Patient encounter procedure Shannen WOODS -[facility] Work Phone: Start: 01-28-2025 End: 01-28-[address] Jose Miguel Herbert MD Work Phone: [facility] Work Phone: Start: 01-27-2025 End: 01-27-2025 Specialty Pharmacy [facility] Comment on above: SPP Oral Oncology/he matology - Medication Refill (Brukinsa) Start: 01-24-2025 End: 01-24-2025 Telephone encounter Jose Miguel Herbert MD Work Phone: Family [facility] [place] Comment on above: Orders Start: 01-23-2025 End: 01-23-2025 ambulatory JOSE MIGUEL HERBERT Facility:[facility] Start: 01-21-2025 End: 01-21-2025 Patient encounter procedure Chester Kwan MD Work Phone: Cardiology Comment on above: Cardiac amyloidosis (HCC) (Primary Dx); Chronic diastolic congestive heart failure (HCC); NICM (nonischemic cardiomyopathy) (HCC); Hyperlipidemia, mixed; ESRD (end stage renal disease) (HCC); Lymphoplasmacytic lymphoma (HCC); AL amyloidosis (HCC) Start: 01-21-2025 End: 01-21-2025 ambulatory JOSE MIGUEL HERBERT Facility:[facility] Start: 01-16-2025 End: 01-16-2025 Chart abstracting Jose Miguel Herbert MD Work Phone: Family [facility] [place] Comment on above: Outside Procedure Start: 01-14-2025 End: 01-14-2025 Chart abstracting Jose Miguel Herbert MD Work Phone: Family [facility] [place] Comment on above: Outside [id number] Ordered Outside H&P Start: 01-14-2025 ambulatory Alvarado Brody Facility:[facility] Start: 01-14-2025 Non-patient / Non-visit Dr. Alvarado pillai MD -[facility] Start: 01-14-2025 End: 01-14-2025 Admission to same day surgery center Dr. Alvarado Brody MD -Surgical Day Care Start: 01-14-2025 End: 01-14-[address] Jose Miguel Herbert MD Work Phone: [facility] Work Phone: Start: 01-13-[address] Yessica Barrera MD -Laboratory, Specimen Work Phone: Start: 01-13-2025 ambulatory [facility] Facility :[facility] Start: 01-10-2025 End: 01-10-[address] Bonnie Barrera MD -Laboratory, Specimen Work Phone: Start: 01-10-2025 End: 01-10-2025 ambulatory [facility] Facility:[facility] Start: 12-31-2024 End: 12-31-2024 Telephone encounter Jose Hugo DO Work Phone: Hematology/Oncology Comment on above: Electronic Communica tion Patient Update Start: 12-25-2024 End: 12-25-2024 Specialty [facility] Comment on above: SPP Oral Oncology/he matology - Medication Refill (Brukinsa) Start: 12-24-2024 End: 12-25-2024 Telephone encounter Dina Tolentino automotive glass specialist/Oncology Comment on above: [employer] Worker - O ther (Patient Question ) Start: 12-24-2024 End: 12-24-2024 ambulatory JOSE MIGUEL HERBERT Facility:[facility] Start: 12-10-2024 End: 12-10-2024 ambulatory JOSE MIGUEL HERBERT Facility:[facility] Start: 12-03-2024 End: 12-03-2024 ambulatory JOSE MIGUEL HERBERT Facility:[facility] Start: 12-03-2024 End: 12-03-2024 Office outpatient visit 25 minutes Jose Hugo DO Work Phone: Hematology/Oncology Comment on above: Lymphoplasmacytic ly mphoma (HCC) (Primary Dx); Light chain (AL) amyloidosis (HCC); Cardiac amyloidosis (HCC) Start: 11-26-2024 End: 11-26-2024 Specialty Pharmacy To[facility] Comment on above: SPP Oral Oncology/he matology - Medication Refill (Brukinsa 80mg) Start: 11-22-2024 Encounter for other preprocedural examination [facility] Start: 11-22-2024 End: 11-22-2024 Telephone encounter Jose Hugo DO Work Phone: Hematology/Oncology Comment on above: Medication Problem Start: 11-07-2024 End: 11-07-[address] Alvarado Brody MD -[facility] Work Phone: Start: 11-07-2024 End: 11-07-2024 ambulatory Jose Miguel Herbert Facility:[facility] Start: 10-31-2024 End: 10-31-2024 Specialty Pharmacy [place] [place] [facility] Comment on above: SPP Oral Oncology/he matology - Medication Refill (brukinsa) Start: 10-28-2024 End: 10-28-2024 Refill Jose Hugo DO Work Phone: Hematology/Oncology Comment on above: Refill Request Start: 10-10-2024 End: 10-10-2024 ambulatory JOSE MIGUEL HERBERT Facility:[facility] Start: 10-10-2024 End: 10-10-2024 Patient encounter procedure Yessica Hansen MD Work Phone: Cardiology Comment on above: AL amyloidosis (HCC) (Primary Dx); Heart failure with preserved ejection fraction, unspecified HF chronicity (HCC); Cardiomyopathy, unspecified type (HCC); Abnormal EKG Start: 10-09-2024 End: 10-09-2024 Chart abstracting Jose Miguel Herbert MD Work Phone: [facility] Comment on above: Outside Imaging Start: 10-08-2024 Non-patient / Non-visit Dr. Alvarado pillai MD -[facility] Start: 10-08-2024 End: 10-08-2024 Patient encounter procedure Shannen Park PA -Cardiovascu lar Services Work Phone: Start: 10-08-2024 End: 10-08-2024 ambulatory Jose Miguelhosea Herbert Facility:[facility] Start: 09-26-2024 End: 09-26-2024 Specialty Pharmacy [facility] Aleksandra [facility] Comment on above: SPP Oral Oncology/he matology - Medication Refill (Brukinsa) Start: 09-05-2024 End: 09-05-2024 ambulatory Jose Miguel Herbert Facility:[facility] Start: 09-03-2024 End: 09-03-2024 Patient encounter procedure Jose Hugo DO Work Phone: Hematology/Oncology Start: 09-03-2024 End: 09-03-2024 ambulatory Jose Hugo DO Work Phone: Hematology/Oncology Comment on above: Lymphoplasmacytic ly mphoma (HCC) (Primary Dx); AL amyloidosis (HCC); Cardiac amyloidosis (HCC) Start: 08-26-2024 End: 08-26-2024 Specialty Pharmacy [place] [facility] Comment on above: SPP Oral Oncology/he matology - Medication Refill (Brukinsa ) Start: 08-08-2024 End: 08-08-2024 Refill Jose Hugo DO Work Phone: Hematology/Oncology Comment on above: Refill Request Start: 08-06-2024 End: 08-06-2024 Telephone encounter Cathie Rubin MA [facility] Comment on above: Orders Start: 08-06-2024 End: 08-06-2024 ambulatory JOSE MIGUEL HERBERT Facility:[facility] Start: 08-06-2024 End: 08-06-2024 Patient encounter procedure Jose Miguel Herbert MD Work Phone: [facility] Comment on above: Medicare annual well ness visit, subsequent (Primary Dx); Hyperlipidemia, mixed; Elevated hemoglobin A1c; Abnormal thyroid blood test; Bilateral leg edema; AL amyloidosis (HCC); Cardiac amyloidosis (HCC); Chronic diastolic congestive heart failure (HCC); NICM (nonischemic cardiomyopathy) (HCC); CKD (chronic kidney disease) stage 5, GFR less than 15 ml/min (HCC); ESRD (end stage renal disease) (HCC); Secondary hyperparathyroidism, renal (HCC); [place]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); Lymphoplasmacytic lymphoma (HCC); Anemia, unspecified type; Benign prostatic hyperplasia with urinary obstruction; Dysfunction of left eustachian tube; Encounter for screening examination for other mental health and behavioral disorders; Encounter for immunization Start: 08-01-2024 End: 08-01-2024 ambulatory JOSE MIGUEL HERBERT Facility:[facility] Start: 07-31-2024 End: 07-31-2024 Patient encounter procedure Jose Miguel Herbert MD Work Phone: [facility] Start: 07-31-2024 End: 07-31-2024 Telephone encounter Jose Miguel Herbert MD Work Phone: [facility] Comment on above: Lab Orders Start: 07-25-2024 End: 07-25-2024 Specialty Pharmacy [place] [facility] Comment on above: SPP Oral Oncology/he matology - Medication Refill (brukinsa) Start: 07-15-2024 End: 07-15-2024 Refill Jose Hugo DO Work Phone: Hematology/Oncology Comment on above: Refill Request Start: 07-12-2024 End: 07-15-2024 Telephone encounter Jose Hugo DO Work Phone: Hematology/Oncology Start: 06-21-2024 End: 06-21-2024 Specialty Pharmacy [place] [facility] Comment on above: SPP Oral Oncology/he matology - Medication Refill (Brukinsa ) Start: 06-19-2024 End: 06-20-2024 Telephone encounter Jose Hugo DO Work Phone: Hematology/Oncology Comment on above: Appointment Start: 06-13-2024 End: 06-13-2024 ambulatory Jose Hugo DO Work Phone: Hematology/Oncology Comment on above: Lymphoplasmacytic ly mphoma (HCC) (Primary Dx); Cardiomyopathy, unspecified type (HCC) Start: 06-13-2024 End: 06-13-2024 Patient encounter procedure Jose Copeland Bethel DO Work Phone: Hematology/Oncology Start: 05-16-2024 End: 05-16-2024 ambulatory Jose Copeland Bethel DO Work Phone: Hematology/Oncology Comment on above: Lymphoplasmacytic ly mphoma (HCC) (Primary Dx); AL amyloidosis (HCC) Start: 05-16-2024 End: 05-16-2024 Patient encounter procedure Jose Copeland Bethel DO Work Phone: Hematology/Oncology Start: 05-15-2024 End: 05-15-2024 Chart abstracting Jose Miguel Herbert MD Work Phone: [facility] Comment on above: Outside Urology Outside [id number] Ordered Start: 05-13-2024 End: 05-13-2024 Specialty Pharmacy [place] [facility] Comment on above: SPP Oral Oncology/he matology - Medication Refill (Brukinsa 80mg) Start: 05-07-2024 End: 05-07-2024 Telephone encounter Dina Tolentino automotive glass specialist/Oncology Comment on above: Skidway Worker - O ther (Oral Anti-Cancer Agents Follow-up (zanubrutinib) ) Start: 04-25-2024 End: 04-25-2024 ambulatory Treatment Rm 5 [facility] Work Phone: Hematology/Oncology Comment on above: SINDI (acute kidney in jury) (HCC) (Primary Dx); Lymphoplasmacytic lymphoma (HCC); [place]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); Cardiac amyloidosis (HCC) Start: 04-24-2024 Telephone encounter Dina Tolentino RN He matology/Oncology Comment on above: Skidway Worker - O ther (Oral Anti-cancer agents education (zanubrutinib) ) Start: 04-23-2024 Telephone encounter Jose roberts DO Work Phone: Hematology/Oncology Comment on above: Opened In Error Start: 04-23-2024 End: 04-23-2024 ambulatory Treatment Rm 3 [facility] Work Phone: Hematology/Oncology Comment on above: SINDI (acute kidney in jury) (HCC) (Primary Dx); Lymphoplasmacytic lymphoma (HCC); [place]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); Cardiac amyloidosis (HCC) Start: 04-18-2024 End: 04-18-2024 ambulatory Jose Copeland Bethel Work Phone: Hematology/Oncology Comment on above: Lymphoplasmacytic ly mphoma (HCC) (Primary Dx); Light chain (AL) amyloidosis (HCC); CKD (chronic kidney disease) stage 5, GFR less than 15 ml/min (HCC) Start: 04-18-2024 End: 04-18-2024 Patient encounter procedure Jose Dinorah Hugo DO Work Phone: Hematology/Oncology Comment on above: SPP Oral Oncology/he matology - Treatment Referral (Bettina); Insurance Authorization (Pending [place]) Start: 04-09-2024 End: 04-09-2024 Refill Jose Miguel Herbert MD Work Phone: [facility] Comment on above: Refill Request AL amyloidosis (HCC) (Primary Dx); Chronic heart failure with preserved ejection fraction (HFpEF) (HCC); NICM (nonischemic cardiomyopathy) (HCC); Hyperlipidemia, mixed; Chronic diastolic congestive heart failure (HCC); Cardiac amyloidosis (HCC); ESRD (end stage renal disease) (HCC); Lymphoplasmacytic lymphoma (HCC); [place]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) Start: 03-28-2024 End: 03-28-2024 ambulatory Treatment Rm 11 [facility] Work Phone: Hematology/Oncology Comment on above: CKD (chronic kidney disease) stage 5, GFR less than 15 ml/min (HCC) (Primary Dx); SINDI (acute kidney injury) (HCC); Lymphoplasmacytic lymphoma (HCC); [place]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); Cardiac amyloidosis (HCC) Start: 03-26-2024 End: 03-26-2024 ambulatory Treatment Rm 6 [facility] Work Phone: Hematology/Oncology Comment on above: SINDI (acute kidney in jury) (HCC) (Primary Dx); Lymphoplasmacytic lymphoma (HCC); [place]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); Cardiac amyloidosis (HCC) Start: 03-19-2024 End: 03-19-2024 ambulatory Oanh Jim HOISTING MACHINE OPERATOR.BOOSTER ASSEMBLER Work Phone: Hematology/Oncology Comment on above: Lymphoplasmacytic ly mphoma (HCC) (Primary Dx); [place]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); Cardiac amyloidosis (HCC) Start: 03-19-2024 End: 03-19-2024 Patient encounter procedure Oanh Jim HOISTING MACHINE OPERATOR.BOOSTER ASSEMBLER Work Phone: Hematology/Oncology Start: 02-29-2024 End: 02-29-2024 ambulatory Treatment Rm 11 [facility] Work Phone: Hematology/Oncology Comment on above: SINDI (acute kidney in jury) (HCC) (Primary Dx); Lymphoplasmacytic lymphoma (HCC); [place]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); Cardiac amyloidosis (HCC) Start: 02-27-2024 End: 02-27-2024 ambulatory Treatment Rm 6 [facility] Work Phone: Hematology/Oncology Comment on above: SINDI (acute kidney in jury) (HCC) (Primary Dx); Lymphoplasmacytic lymphoma (HCC); [place]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); Cardiac amyloidosis (HCC) Start: 02-20-2024 Telephone encounter Jose roberts DO Work Phone: Hematology/Oncology Start: 02-01-2024 End: 02-01-2024 ambulatory Treatment Rm 12 [facility] Work Phone: Hematology/Oncology Comment on above: SINDI (acute kidney in jury) (HCC) (Primary Dx); Lymphoplasmacytic lymphoma (HCC); [place]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); Cardiac amyloidosis (HCC) Start: 01-30-2024 End: 01-30-2024 ambulatory Treatment Rm 7 [facility] Work Phone: Hematology/Oncology Comment on above: SINDI (acute kidney in jury) (HCC) (Primary Dx); Lymphoplasmacytic lymphoma (HCC); [place]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); Cardiac amyloidosis (HCC) Start: 01-10-2024 Telephone encounter Dina Tolentino RN He matology/Oncology Comment on above: Skidway Worker - O ther (Follow-up ) Start: 01-05-2024 Orders Only Jose Hernandez O Work Phone: Hematology/Oncology Comment on above: Lymphoplasmacytic ly mphoma (HCC) (Primary Dx); Light chain (AL) amyloidosis (HCC) Start: 01-04-2024 End: 01-04-2024 ambulatory Jose Hugo DO Work Phone: Hematology/Oncology Comment on above: Lymphoplasmacytic ly mphoma (HCC) (Primary Dx); Cardiac amyloidosis (HCC); [place]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); Other specified hypotension Start: 01-04-2024 End: 01-04-2024 Patient encounter procedure Jose Hugo DO Work Phone: Hematology/Oncology Start: 01-02-2024 Telephone encounter Jose roberts DO Work Phone: Hematology/Oncology Comment on above: Patient Update Start: 12-19-2023 Telephone encounter Jose roberts DO Work Phone: Hematology/Oncology Comment on above: Appointment Start: 12-18-2023 End: 12-18-2023 Emergency department patient visit [facility] Work Phone: Start: 12-18-2023 End: 12-18-2023 ambulatory Jose Hugo DO Work Phone: Hematology/Oncology Comment on above: Light chain (AL) cipriano loidosis (HCC) (Primary Dx) Start: 12-18-2023 End: 12-18-2023 Patient encounter procedure Jose Hugo DO Work Phone: [facility] Start: 12-15-2023 End: 12-15-2023 Emergency department patient visit [facility] Work Phone: Start: 12-12-2023 Telephone encounter Jose roberts DO Work Phone: Hematology/Oncology Comment on above: Patient Update Start: 12-11-2023 ambulatory JOSE MIGUEL Iqbal ty:Rafy Alcantara Start: 12-11-2023 End: 12-11-2023 Subsequent hospital visit by physician Ankur Benavidez PA-C Work Phone: [facility] Comment on above: CKD (chronic kidney disease), stage V (HCC) [N18.5] Start: 12-08-2023 End: 12-08-2023 Nursing evaluation of patient and report Mi Nurse Work Phone: [facility] Comment on above: Encounter for immuni zation (Primary Dx) Start: 12-07-2023 End: 12-07-2023 Orders Only Xena Pagan APRN.BOOSTER ASSEMBLER Work Phone: [facility] Comment on above: CKD (chronic kidney disease), stage V (HCC) (Primary Dx) Patient Question CKD (chronic kidney disease), stage V (HCC) [N18.5] Start: 12-05-2023 Orders Only Gumaro cox DO Work Phone: [facility] Comment on above: CKD (chronic kidney disease), stage V (HCC) (Primary Dx) Results Start: 11-30-2023 End: 11-30-2023 ambulatory Injection [facility] Work Phone: Hematology/Oncology Comment on above: Cardiac amyloidosis (HCC) (Primary Dx); Lymphoplasmacytic lymphoma (HCC); [place]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); SINDI (acute kidney injury) (HCC) Start: 11-29-2023 End: 11-29-2023 Patient encounter procedure Jose Miguel Herbert MD Work Phone: [facility] Comment on above: Hyperlipidemia, mixe d (Primary Dx); Elevated hemoglobin A1c; AL amyloidosis (HCC); Lymphoplasmacytic lymphoma (HCC); Cardiac amyloidosis (HCC); Chronic diastolic congestive heart failure (HCC); NICM (nonischemic cardiomyopathy) (HCC); [place]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); CKD (chronic kidney disease) stage 5, GFR less than 15 ml/min (HCC); Secondary hyperparathyroidism, renal (HCC); Bilateral leg edema; Anemia, unspecified type; Abnormal thyroid blood test; Advance directive discussed with patient; Situational depression Start: 11-29-2023 End: 11-29-2023 ambulatory Treatment Rm 7 [facility] Work Phone: Hematology/Oncology Comment on above: Cardiac amyloidosis (HCC) (Primary Dx); Lymphoplasmacytic lymphoma (HCC); [place]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); SINDI (acute kidney injury) (HCC) Start: 11-28-2023 End: 11-28-2023 ambulatory Treatment Rm 7 [facility] Work Phone: Hematology/Oncology Comment on above: Cardiac amyloidosis (HCC) (Primary Dx); Lymphoplasmacytic lymphoma (HCC); [place]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 Start: 11-24-2023 End: 11-24-2023 Office outpatient visit 40 minutes Gumaro Pérez DO Work Phone: Kidney [facility] Comment on above: CKD (chronic kidney disease), stage V (HCC) (Primary Dx); Metabolic bone disease Start: 11-24-2023 End: 11-24-2023 Patient encounter procedure Xena Pagan APRN.BOOSTER ASSEMBLER Work Phone: Kidney [facility] Comment on above: Encounter for health education (Primary Dx) Start: 11-22-2023 Telephone encounter Megan HINOJOSA Palliative Medicine Comment on above: Palliative Medicine Consult Start: 11-16-2023 End: 11-16-2023 Patient encounter procedure Talia Russell HOISTING MACHINE OPERATOR.BOOSTER ASSEMBLER Work Phone: Cardiology Comment on above: HFrEF (heart failure with reduced ejection fraction) (HCC) (Primary Dx) Start: 11-10-2023 Chart abstracting Jose Miguel angulo MD Work Phone: [facility] [place] Comment on above: Outside Urology Start: 11-08-2023 Telephone encounter Jose roberts DO Work Phone: Hematology/Oncology Comment on above: Results Start: 11-06-2023 Orders Only Jose Hernandez O Work Phone: Hematology/Oncology Comment on above: Lymphoplasmacytic ly mphoma (HCC) (Primary Dx); [place]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); Renal amyloidosis (HCC) (HCC); Cardiac amyloidosis (HCC) Start: 11-02-2023 End: 11-02-2023 ambulatory Injection [facility] Work Phone: Hematology/Oncology Comment on above: Cardiac amyloidosis (HCC) (Primary Dx); Lymphoplasmacytic lymphoma (HCC); [place]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); SINDI (acute kidney injury) (HCC) Start: 11-01-2023 End: 11-01-2023 ambulatory Treatment Rm 8 [facility] Work Phone: Hematology/Oncology Comment on above: Cardiac amyloidosis (HCC) (Primary Dx); Lymphoplasmacytic lymphoma (HCC); [place]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); SINDI (acute kidney injury) (HCC) Start: 10-31-2023 End: 10-31-2023 ambulatory Treatment Rm 10 [facility] Work Phone: Hematology/Oncology Comment on above: Cardiac amyloidosis (HCC) (Primary Dx); Lymphoplasmacytic lymphoma (HCC); [place]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); SINDI (acute kidney injury) (HCC) Start: 10-27-2023 End: 10-27-2023 ambulatory Jose Hugo DO Work Phone: Hematology/Oncology Comment on above: Lymphoplasmacytic ly mphoma (HCC) (Primary Dx); [place]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); Renal amyloidosis (HCC) (HCC); Cardiac amyloidosis (HCC) Start: 10-27-2023 End: 10-27-2023 Patient encounter procedure Jose Hugo DO Work Phone: [facility] Start: 10-23-2023 End: 10-23-2023 Office outpatient new 45 minutes Gumaro Pérez DO Work Phone: Kidney Medicine [facility] Comment on above: Amyloid kidney (HCC) (HCC) (Primary Dx); CKD (chronic kidney disease), stage IV (HCC); Obstructive uropathy Start: 09-01-2023 End: 09-01-2023 ambulatory aJsiel Peñaloza MD Work Phone: Cardiology Comment on above: Heart Failure Start: 09-01-2023 End: 09-01-2023 Patient encounter procedure Jasiel Peñaloaz MD Work Phone: 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); SINDI (acute kidney injury) (HCC); Stage 3b chronic kidney disease (HCC); AL amyloidosis (HCC) Start: 08-23-2023 End: 08-23-2023 ambulatory Treatment Rm 8 [facility] Work Phone: Hematology/Oncology Comment on above: Cardiac amyloidosis (HCC) (Primary Dx); Lymphoplasmacytic lymphoma (HCC); [place]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); SINDI (acute kidney injury) (HCC); Stage 3b chronic kidney disease (HCC); AL amyloidosis (HCC) Start: 08-22-2023 End: 08-22-2023 ambulatory Treatment Rm 6 [facility] Work Phone: Hematology/Oncology Comment on above: Cardiac amyloidosis (HCC) (Primary Dx); Lymphoplasmacytic lymphoma (HCC); [place]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); SINDI (acute kidney injury) (HCC); Stage 3b chronic kidney disease (HCC); [place] amyloidosis (HCC) Start: 08-21-2023 End: 08-21-2023 cable inspector [facility] Work Phone: Hematology/Oncology Comment on above: Encounter for educat ion (Primary Dx) Lymphoplasmacytic ly mphoma (HCC) (Primary Dx); AL amyloidosis (HCC) Start: 08-17-2023 End: 08-17-2023 ambulatory Jose Hugo DO Work Phone: Hematology/Oncology Comment on above: Lymphoplasmacytic ly mphoma (HCC) (Primary Dx); AL amyloidosis (HCC); Cardiac amyloidosis (HCC) Start: 08-17-2023 End: 08-17-2023 Patient encounter procedure Jose Hugo DO Work Phone: 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); SINDI (acute kidney injury) (HCC) Start: 08-15-2023 End: 08-15-2023 ambulatory oJse Hugo DO Work Phone: Hematology/Oncology Comment on above: AL amyloidosis (HCC) (Primary Dx); Lymphoplasmacytic lymphoma (HCC); Cardiac amyloidosis (HCC); Renal amyloidosis (HCC) Start: 08-15-2023 End: 08-15-2023 Patient encounter procedure Jose Hugo DO Work Phone: [facility] Start: 08-08-2023 Telephone encounter Jose roberts DO Work Phone: Hematology/Oncology Comment on above: Patient Update Start: 08-02-2023 End: 08-02-2023 ambulatory Treatment Rm 8 [facility] Work Phone: Hematology/Oncology Comment on above: Lymphoplasmacytic ly mphoma (HCC) (Primary Dx); [place]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); SINDI (acute kidney injury) (HCC) Start: 07-31-2023 End: 07-31-2023 Patient encounter procedure Chester Kwan MD Work Phone: Cardiology Comment on above: NICM (nonischemic ca rdiomyopathy) (HCC) (Primary Dx); Chronic heart failure with preserved ejection fraction (HFpEF) (HCC); Hyperlipidemia, mixed; Stage 3b chronic kidney disease (HCC); Lymphoplasmacytic lymphoma (HCC); [place]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); AL amyloidosis (HCC); Bilateral leg edema AL amyloidosis (HCC) (Primary Dx) Start: 07-26-2023 End: 07-26-2023 ambulatory Treatment Rm 9 [facility] Work Phone: Hematology/Oncology Comment on above: Elevated hemoglobin A1c (Primary Dx); Lymphoplasmacytic lymphoma (HCC); [place]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); SINDI (acute kidney injury) (HCC) Start: 07-25-2023 Telephone encounter Jose roberts DO Work Phone: Hematology/Oncology Comment on above: Patient Question Start: 07-19-2023 End: 07-19-2023 ambulatory Treatment 8 [facility] Work Phone: Hematology/Oncology Comment on above: Lymphoplasmacytic ly mphoma (HCC) (Primary Dx); [place]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); SINDI (acute kidney injury) (HCC) Start: 07-18-2023 End: 07-18-2023 ambulatory Jose Hugo DO Work Phone: Hematology/Oncology Comment on above: [place] light chain de position disease (HCC) (Primary Dx); AL amyloidosis (HCC); Stage 3b chronic kidney disease (HCC) Start: 07-18-2023 End: 07-18-2023 Patient encounter procedure Jose Hugo DO Work Phone: [facility] Start: 06-28-2023 Telephone encounter Jose roberts DO Work Phone: Hematology/Oncology Comment on above: Patient Update Start: 06-28-2023 End: 06-28-2023 ambulatory Treatment 8 [facility] Work Phone: Hematology/Oncology Comment on above: Lymphoplasmacytic ly mphoma (HCC) (Primary Dx); [place]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); SINDI (acute kidney injury) (HCC) Start: 06-26-2023 Telephone encounter Jose Miguel Herbert MD Work Phone: [facility] Comment on above: Results Start: 06-21-2023 Telephone encounter Chester Kwan MD Work Phone: Cardiology Comment on above: Results Start: 06-07-2023 End: 06-07-2023 ambulatory Treatment Rm 10 [facility] Work Phone: Hematology/Oncology Comment on above: Lymphoplasmacytic ly mphoma (HCC) (Primary Dx); [place]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); SINDI (acute kidney injury) (HCC); Malaise and fatigue Start: 05-30-2023 Orders Only Jose Waldron Work Phone: Hematology/Oncology Comment on above: Lymphoplasmacytic ly mphoma (HCC) (Primary Dx); [place]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); SINDI (acute [...] Miguel Herbert MD Work Phone: [facility] Comment on above: Medicare annual well ness visit, subsequent (Primary Dx); Lymphoplasmacytic lymphoma (HCC); [place]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); Stage 3b chronic kidney disease (HCC); SINDI (acute kidney injury) (HCC); [place] amyloidosis (HCC); Abnormal thyroid blood test; Anemia, unspecified type; Bilateral leg edema; NICM (nonischemic cardiomyopathy) (HCC); BPH without obstruction/lower urinary tract symptoms; Elevated LDL cholesterol level; Elevated blood sugar Start: 05-24-2023 End: 05-24-2023 ambulatory Treatment Rm 13 [facility] Work Phone: Hematology/Oncology Comment on above: Lymphoplasmacytic ly mphoma (HCC) (Primary Dx); [place]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); SINDI (acute kidney injury) (HCC); Stage 3b chronic kidney disease (HCC); AL amyloidosis (HCC) Start: 05-18-2023 End: 05-18-2023 ambulatory Treatment Rm 2 [facility] Work Phone: Hematology/Oncology Comment on above: Lymphoplasmacytic ly mphoma (HCC) (Primary Dx); [place]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); SINDI (acute kidney injury) (HCC) Start: 05-17-2023 End: 05-18-2023 ambulatory JOSE HUGO Facility:[facility] Start: 05-12-2023 Chart abstracting Jose Miguel angulo MD Work Phone: Family [facility] Comment on above: Outside Urology Start: 05-11-2023 Telephone encounter Jose roberts DO Work Phone: Hematology/Oncology Comment on above: Orders Start: 05-08-2023 Telephone encounter Jose Miguel Herbert MD Work Phone: [facility] Comment on above: Results Start: 05-03-2023 End: 05-03-2023 ambulatory Treatment Rm 1 [facility] Work Phone: Hematology/Oncology Comment on above: Lymphoplasmacytic ly mphoma (HCC) (Primary Dx); [place]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); SINDI (acute kidney injury) (HCC) Start: 05-02-2023 End: 05-02-2023 Patient encounter procedure Chester Kwan MD Work Phone: Cardiology Comment on above: SOB (shortness of br eath) (Primary Dx); Acute on chronic heart failure with preserved ejection fraction (HFpEF) (HCC); SIDNI (acute kidney injury) (HCC); Stage 3b chronic kidney disease (HCC); NICM (nonischemic cardiomyopathy) (HCC); Lymphoplasmacytic lymphoma (HCC); [place] amyloidosis (HCC) Start: 05-01-2023 Telephone encounter Chester Kwan MD Work Phone: Cardiology Comment on above: Appointment Start: 04-27-2023 Orders Only Chester Kwan MD Work Phone: Cardiology Comment on above: Acute on chronic hea rt failure with preserved ejection fraction (HFpEF) (HCC) (Primary Dx) Skidway Worker - O ther (C1D1 Post Treatment Call (Rituxan/Velcade)) Start: 04-26-2023 Telephone encounter Financial Navigator Stef Work Phone: Financial Services Comment on above: Benefits Investigati on Results Future Appointment Start: 04-26-2023 End: 04-26-2023 ambulatory Treatment Rm 1 [facility] Work Phone: Hematology/Oncology Comment on above: Lymphoplasmacytic ly mphoma (HCC) (Primary Dx); [place]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 Anibal Herbert Work Phone: [facility] Start: 04-20-2023 Telephone encounter Dina Tolentino RN He matology/Oncology Comment on above: Skidway Worker - O ther (Treatment Planning ) Start: 04-20-2023 End: 04-20-2023 cable inspector [facility] Work Phone: Hematology/Oncology Comment on above: Encounter for educat ion (Primary Dx) Start: 04-19-2023 Telephone encounter Dina Tolentino RN He matology/Oncology Comment on above: Skidway Worker - O ther (Introduction ) AVS 04/19/23, CHEMO ST ART Start: 04-19-2023 End: 04-19-[address] 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 Jose Miguel Herbert Work Phone: [facility]-Cardiovascul ar Services Work Phone: Start: 04-18-2023 Telephone encounter Jose roberts DO Work Phone: Hematology/Oncology Comment on above: Follow Up Start: 04-18-2023 End: 04-18-2023 Subsequent hospital visit by physician Ct Prep [facility] Cat Scan Comment on above: [place] macroglo bulinemia (HCC) [C88.0] Start: 04-14-2023 End: 04-14-2023 ambulatory EMIL MIKE Facility:[facility] Start: 04-13-2023 Telephone encounter Jose Hu alejandra DO Work Phone: Hematology/Oncology Comment on above: Opened In Error Start: 04-10-2023 Chart abstracting Jose Miguel angulo MD Work Phone: [facility] Comment on above: Results Start: 04-06-2023 End: 04-06-2023 ambulatory Jose Copeland Juliaderick DO Work Phone: Hematology/Oncology Comment on above: 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 Jose Miguel Herbert Work Phone: [facility]-Laboratory, Specimen Work Phone: Start: 04-04-2023 Chart abstracting Jose Miguel angulo MD Work Phone: [facility] Start: 04-04-2023 Telephone encounter Jose Miguel Herbert MD Work Phone: [facility] Comment on above: Patient Update Results Start: 04-03-2023 End: 04-03-2023 Subsequent hospital visit by physician Ct [facility] (I-Stat) Work Phone: Cat Scan Comment on above: Unintended weight lo ss [R63.4] Start: 04-03-2023 End: 04-03-2023 ambulatory Pulm Lab [facility] Work Phone: PULM LAB [facility] Comment on above: Spirometry Start: 04-03-2023 End: 04-03-2023 Patient encounter procedure Pulm Lab [facility] Work Phone: [place] [facility] [place] Start: 03-30-2023 End: 03-30-2023 Subsequent hospital visit by physician [facility] Mob 2 Work Phone: Radiology Comment on above: Unintended weight lo ss [R63.4] Start: 03-23-2023 End: 03-23-2023 Patient encounter procedure Jose Miguel Herbert MD Work Phone: [facility] Comment on above: Unintended weight lo ss (Primary Dx); Fatigue, unspecified type; SINDI (acute kidney injury) (HCC); Anemia, unspecified type; Decreased stamina; Elevated troponin level; Nonspecific ST-T wave electrocardiographic changes; Hoarseness of voice; Black hairy tongue; Altered taste; Bilateral leg edema; SOB (shortness of breath); Lack of appetite; Generalized weakness Start: 03-18-2023 Non-patient / Non-visit Dr. Anibal Herbert Work Phone: [facility] Work Phone: Start: 03-17-2023 Non-patient / Non-visit Dr. Anibal Herbert Work Phone: [facility] Work Phone: Start: 03-17-2023 Non-patient / Non-visit Dr. Anibal Herbert Work Phone: [facility] Start: 03-17-2023 Telephone encounter Sheree glasgow PA-C Work Phone: [facility] Comment on above: Results Start: 03-17-2023 End: 03-18-2023 Evaluation and management of inpatient [facility]-Progressive Care Unit Work Phone: Start: 03-17-2023 observation encounter [facility] Work Phone: Start: 03-16-2023 Orders Only Sheree Ireland on PA-C Work Phone: [facility] [place] Comment on above: Encounter for lipid screening for cardiovascular disease (Primary Dx); Prostate disorder; Medication management; BPH without obstruction/lower urinary tract symptoms Start: 11-11-2022 Patient encounter procedure Anibal Herbert MD Work Phone: [facility] Work Phone: Start: 11-11-2022 Telephone encounter Jose Miguel Herbert MD Work Phone: [address] [place] [address] Comment on above: Orders Start: 01-27-2022 End: 01-27-2022 Patient encounter procedure Jose Miguel Herbert MD Work Phone: [facility] [place] Comment on above: Medicare annual well ness visit, subsequent (Primary Dx); BPH without obstruction/lower urinary tract symptoms; NSAID long-term use; Living will on file; Advance directive discussed with patient Start: 01-18-2022 Telephone encounter Jose Miguel Herbert MD Work Phone: [facility] [place] Comment on above: Lab Orders Procedures Date Procedure Procedure Detail Performing Clinician Start: 01-30-2025 Lipid 1996 panel - S amirah or Plasma Jose Hugo DO Work Phone: Start: 01-14-2025 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 Jose Miguel Herbert MD Work Phone: Start: 12-10-2024 Echocardiography VICENTE HERBERT Start: 08-06-2024 PFIZER-BIONTECH COVI D-19 VACCINE AGE 12+ YR (COMIRNATY) Jose Miguel Herbert MD Work Phone: Start: 08-01-2024 Lipid 1996 panel - S amirah or Plasma Jose Miguel Herbert MD Work Phone: Start: 05-14-2024 PSA screening [facility] Start: 12-15-2023 Urine culture Start: 12-15-2023 Plain chest X-ray Start: 12-08-2023 PFIZER-BIONTECH COVI D-19 VACCINE ( SEASON) AGE 12+ YR Jose Miguel Herbert MD Work Phone: Start: 12-05-2023 Lipid 1996 panel - S amirah or Plasma Gumaro [...] 1996 panel - S amirah or Plasma Joes Hugo DO Work Phone: Start: 01-27-2022 Adult depression scr eening assessment Jose Miguel Herbert MD Work Phone: Start: 07-04-2019 Adult depression scr eening assessment Jose Miguel Herbert MD Work Phone: Start: 06-07-2018 Colonoscopy Jose Miguel angulo MD Work Phone: Plan of Treatment Date Care Activity Detail Author Start: 02-28-2033 Urine microalbumin profile [facility] Start: 01-30-2030 Lipid panel Lipid Screening [facility] Start: 08-01-2029 Lipid panel Lipid Screening [facility] Start: 12-04-2028 Lipid panel Lipid Screening [facility] Start: 06-19-2028 Lipid 1996 panel - Serum or Plasma Lipid Screening [facility] Start: 06-19-2028 Lipid panel Lipid Screening [facility] Start: 06-07-2028 Colonoscopy COLONOSCOPY [facility] Start: 06-07-2028 COLORECTAL CANCER SCREENING COLORECTAL CANCER SCREENING [facility] Start: 06-07-2028 Screening for malignant neoplasm of colon [facility] Start: 05-13-2028 Diabetes Screening Diabetes Screening [facility] Start: 03-18-2028 Diabetes Screening Diabetes Screening [facility] Start: 03-16-2028 Lipid 1996 panel - Serum or Plasma Lipid Screening [facility] Start: 03-16-2028 LIPID SCREEN LIPID SCREEN [facility] Start: 02-19-2028 Diabetes Screening Diabetes Screening [facility] Start: 01-24-2028 Diabetes Screening Diabetes Screening [facility] Start: 12-25-2027 Diabetes Screening Diabetes Screening [facility] Start: 11-27-2027 Diabetes Screening Diabetes Screening [facility] Start: 09-03-2027 Diabetes Screening Diabetes Screening [facility] Start: 08-08-2027 Diabetes Screening Diabetes Screening [facility] Start: 08-01-2027 Diabetes Screening Diabetes Screening [facility] Start: 07-18-2027 Diabetes Screening Diabetes Screening [facility] Start: 06-13-2027 Diabetes Screening Diabetes Screening [facility] Start: 05-16-2027 Diabetes Screening Diabetes Screening [facility] Start: 04-18-2027 Diabetes Screening Diabetes Screening [facility] Start: 03-26-2027 Diabetes Screening Diabetes Screening [facility] Start: 03-19-2027 Diabetes Screening Diabetes Screening [facility] Start: 02-26-2027 Diabetes Screening Diabetes Screening [facility] Start: 01-29-2027 Diabetes Screening Diabetes Screening [facility] Start: 01-20-2027 LIPID SCREEN LIPID SCREEN [facility] Start: 12-17-2026 Diabetes Screening Diabetes Screening [facility] Start: 12-11-2026 Diabetes Screening Diabetes Screening [facility] Start: 12-04-2026 Diabetes Screening Diabetes Screening [facility] Start: 11-26-2026 Diabetes Screening Diabetes Screening [facility] Start: 11-20-2026 Diabetes Screening Diabetes Screening [facility] Start: 11-14-2026 Diabetes Screening Diabetes Screening [facility] Start: 11-07-2026 Diabetes Screening Diabetes Screening [facility] Start: 10-27-2026 Diabetes Screening Diabetes Screening [facility] Start: 10-02-2026 Diabetes Screening Diabetes Screening [facility] Start: 08-26-2026 Diabetes Screening Diabetes Screening [facility] Start: 08-25-2026 Diabetes Screening Diabetes Screening [facility] Start: 08-24-2026 Diabetes Screening Diabetes Screening [facility] Start: 08-23-2026 Diabetes Screening Diabetes Screening [facility] Start: 08-15-2026 Diabetes Screening Diabetes Screening [facility] Start: 07-18-2026 Diabetes Screening Diabetes Screening [facility] Start: 06-19-2026 Diabetes Screening Diabetes Screening [facility] Start: 05-31-2026 Diabetes Screening Diabetes Screening [facility] Start: 05-23-2026 DIABETES SCREEN DIABETES SCREEN [facility] Start: 05-23-2026 Diabetes Screening Diabetes Screening [facility] Start: 05-13-2026 Complete blood count Hemoglobin/Hematocrit [facility] Start: 05-13-2026 Creatinine measurement Serum Creatinine [facility] Start: 05-02-2026 DIABETES SCREEN DIABETES SCREEN [facility] Start: 04-26-2026 DIABETES SCREEN DIABETES SCREEN [facility] Start: 04-22-2026 Complete blood count Hemoglobin/Hematocrit [facility] Start: 04-06-2026 DIABETES SCREEN DIABETES SCREEN [facility] Start: 03-27-2026 DIABETES SCREEN DIABETES SCREEN [facility] Start: 03-18-2026 Complete blood count Hemoglobin/Hematocrit [facility] Start: 03-18-2026 Creatinine measurement Serum Creatinine [facility] Start: 03-16-2026 DIABETES SCREEN DIABETES SCREEN [facility] Start: 02-18-2026 Complete blood count Hemoglobin/Hematocrit [facility] Start: 02-18-2026 Creatinine measurement Serum Creatinine [facility] Start: 02-04-2026 Annual PCP Team Chronic Disease Visit Annual PCP Team Chronic Disease Visit [facility] Start: 01-23-2026 Complete blood count Hemoglobin/Hematocrit [facility] Start: 12-24-2025 Complete blood count Hemoglobin/Hematocrit [facility] Start: 12-24-2025 Creatinine measurement Serum Creatinine [facility] Start: 11-26-2025 Complete blood count Hemoglobin/Hematocrit [facility] Start: 11-26-2025 Creatinine measurement Serum Creatinine [facility] Start: 09-03-2025 Complete blood count Hemoglobin/Hematocrit [facility] Start: 09-03-2025 Creatinine measurement Serum Creatinine [facility] Start: 08-19-2025 End: 08-19-2025 ambulatory 08/19/2025 9:30 AM EST Visit (SP) Office Hematology/Oncology [address] [place] [address] Jose Hugo DO [address] [place] [address] 3MO OV/LABS 08/05* Hematology/Oncolog y Comment on above: 3MO OV/LABS 08/05* Start: 08-12-2025 End: 08-12-2025 Patient encounter procedure 08/12/2025 2:00 PM EST Office Visit [facility] [address] [facility] [place] [address] Jose Miguel Herbert MD [address] [facility] [place] [id number] Medicare Wellness [facility] Comment on above: Medicare Wellness Start: 08-08-2025 Complete blood count Hemoglobin/Hematocrit [facility] Start: 08-08-2025 Creatinine measurement Serum Creatinine [facility] Start: 08-06-2025 Annual PCP Team Chronic Disease Visit Annual PCP Team Chronic Disease Visit [facility] Start: 08-06-2025 Anxiety Screening Anxiety Screening [facility] Start: 08-06-2025 Medicare Annual Wellness Visit Medicare Annual Wellness Visit [facility] Start: 08-06-2025 RSV Vaccine (1 - Risk 60-74 years 1-dose series) RSV Vaccine (1 - Risk 60-74 years 1-dose series) [facility] Comment on above: Postponed from 2012 (Insurance Cov erage) Start: 08-05-2025 End: 08-05-2025 ambulatory 08/05/2025 10:00 AM EST Results Only [place] [facility] Laboratory [address] [place] [address] CBC* [facility] Comment on above: CBC* Start: 07-29-2025 End: 07-29-2025 Patient encounter procedure 07/29/2025 2:30 PM EST Office Visit Cardiology [address] [place] [address] Chester Patel MD [address] [place], [place] [id number] DX: Chronic diastolic HF (heart failure) Cardiology Comment on above: DX: Chronic diastolic HF (heart failure) Start: 07-29-2025 End: 07-29-2025 ambulatory 07/29/2025 1:45 PM EST Procedure Cardiology [address] [place] [address] DX: Chronic diastolic HF (heart failure) Cardiology Comment on above: DX: Chronic diastolic HF (heart failure) Start: 07-24-2025 End: 10-23-2025 Comprehensive metabolic 2000 panel - Serum or Plasma COMPREHENSIVE METABOLIC PANEL Lab Routine Cardiac amyloidosis (HCC) Chronic diastolic congestive heart failure (HCC) Expected: 07/24/2025, Expires: 10/23/2025 [facility] Work Phone: Comment on above: Expected: 07/24/2025, Expires: Start: 07-24-2025 End: 10-23-2025 Natriuretic peptide.B prohormone N-Terminal [Mass/volume] in Serum or Plasma NT PRO BNP Lab Routine Cardiac amyloidosis (HCC) Chronic diastolic congestive heart failure (HCC) Expected: 07/24/2025, Expires: 10/23/2025 [facility] Comment on above: Expected: 07/24/2025, Expires: 6 Start: 07-18-2025 Complete blood count Hemoglobin/Hematocrit [facility] Start: 07-18-2025 Creatinine measurement Serum Creatinine [facility] Start: 07-08-2025 End: 07-08-2025 ambulatory 07/08/2025 10:00 AM EDT Results Only [place] [facility] Laboratory [address] [place] [address] CBC* [facility] Laboratory Comment on above: CBC* Start: 07-02-2025 LIPID SCREEN LIPID SCREEN [facility] Start: 06-13-2025 Complete blood count Hemoglobin/Hematocrit [facility] Start: 06-13-2025 Creatinine measurement Serum Creatinine [facility] Start: 06-10-2025 End: 06-10-2025 ambulatory 06/10/2025 10:00 AM EDT Results Only [place] [facility] Laboratory [address] [place] [address] CBC* [place] [facility] Laboratory Comment on above: CBC* Start: 05-21-2025 End: 05-21-2025 Specialty Pharmacy 05/21/2025 8:30 AM EDT Specialty Pharmacy [facility] [address] [place] [address] Pharmacist, [facility] [address] [place] [address] [place] [address] Refill - Brukinsa [30DS] Has Dialysis Mon, Weds, Fri - Prefers delivery on non-dialysis days - wcb 05/16 [facility] Comment on above: Refill - [place] [30DS] Has Dialysis Mo n, Weds, Fri - Prefers delivery on non-dialysis days - wcb 05/16 Start: 05-20-2025 End: 05-20-2025 ambulatory [place] [facility] Laboratory Comment on above: CBC/CMP/MM labs (no urine) 3MO/EARLY LABS* 3MO OV/LABS 05/13* Start: 05-20-2025 End: 05-20-2025 Specialty Pharmacy 05/20/2025 9:15 AM EDT Specialty Pharmacy [facility] [address] [place] [phone] Pharmacist, [facility] [address] [place] [address] [place] [address] Refill - [place]a [30DS] Has Dialysis Mon, Weds, Fri - Prefers delivery on non-dialysis days - Ref req 05/14 [facility] Comment on above: Refill - [place] [30DS] Has Dialysis Mo n, Weds, Fri - Prefers delivery on non-dialysis days - Ref req 05/14 Start: 09-01-2025 Influenza vaccination Influenza Vaccine (#[facility]) [facility] Start: 05-16-2025 Complete blood count Hemoglobin/Hematocrit [facility] Start: 05-16-2025 Creatinine measurement Serum Creatinine [facility] Start: 05-15-2025 End: 05-15-2025 Specialty Pharmacy 05/15/2025 9:00 AM EDT Specialty Pharmacy [facility] [employer] [address] [address] Pharmacist, [facility] [address] [place] [address] [place] [address] Refill - [place] [30DS] Prefers delivery on non-dialysis days (Mon,Wed,Fri) [facility] Comment on above: Refill - [place] [30DS] Prefers deliver y on non-dialysis days (Mon,Wed,Fri) Start: 05-13-2025 End: 05-13-2025 ambulatory 05/13/2025 10:00 AM EDT Results Only [facility] Laboratory [address] [place] [address] CBC/CMP/MM labs (no urine) [facility] Comment on above: CBC/CMP/MM labs (no urine) Start: 05-01-2025 Patient discharge [facility] Start: 04-22-2025 End: 04-22-2025 ambulatory 04/22/2025 10:00 AM EDT Results Only [facility] [address] [place] [address] Monthly CBC [facility] Comment on above: Monthly CBC Start: 04-18-2025 Complete blood count Hemoglobin/Hematocrit [facility] Start: 04-18-2025 Creatinine measurement Serum Creatinine [facility] Start: 04-15-2025 End: 04-15-2025 Specialty Pharmacy 04/15/2025 9:00 AM EDT Specialty Pharmacy [facility] [address] [place] [address] [place] [address] Pharmacist, [facility] [address] [place] [address] [place] [address] Refill - [place] [30DS] Prefers delivery on non-dialysis days (Mon,Wed,Fri) [facility] Comment on above: Refill - [place] [30DS] Prefers deliver y on non-dialysis days (Mon,Wed,Fri) Start: 04-01-2025 Covid-19 Vaccine () Covid-19 Vaccine () [facility] Start: 03-26-2025 Complete blood count Hemoglobin/Hematocrit [facility] Start: 03-26-2025 Creatinine measurement Serum Creatinine [facility] Start: 03-25-2025 End: 03-25-2025 ambulatory 03/25/2025 10:00 AM EDT Results Only [place] [facility] [address] [place] [address] Monthly CBC [facility] Comment on above: Monthly CBC Start: 03-19-2025 Complete blood count Hemoglobin/Hematocrit [facility] Start: 03-19-2025 Creatinine measurement Serum Creatinine [facility] Start: 03-18-2025 End: 03-18-2025 Specialty Pharmacy 03/18/2025 7:45 AM EDT Specialty Pharmacy [facility] [employer] [address] [address] Pharmacist, [facility] [address] [place] [address] [place] [address] Refill - [place] [30DS] Prefers delivery on non-dialysis days (Mon,Wed,Fri) [facility] 03/14 [facility] Comment on above: Refill - [place] [30DS] Prefers deliver y on non-dialysis days (Mon,Wed,Fri) [facility] 03/14 Start: 03-14-2025 End: 03-14-2025 Specialty Pharmacy 03/14/2025 7:00 AM EDT Specialty Pharmacy [facility] [employer] [address] [address] Pharmacist, [facility] [address] [place] [address] [place] [address] Refill - [place] [30DS] Prefers delivery on non-dialysis days (Mon,Wed,Fri) [facility] Comment on above: Refill - [place] [30DS] Prefers deliver y on non-dialysis days (Mon,Wed,Fri) Start: 02-26-2025 Complete blood count Hemoglobin/Hematocrit [facility] Start: 02-26-2025 Creatinine measurement Serum Creatinine [facility] Start: 02-25-2025 End: 02-25-2025 ambulatory 02/25/2025 10:10 AM EDT Visit (SP) Office Hematology/Oncology [address] [place] [address] Jose Hugo DO [address] [facility] [place] [address] 3MO OV/LABS 02/18* Hematology/Oncolog y Comment on above: 3MO OV/LABS 02/18* Start: 02-18-2025 End: 02-18-2025 ambulatory [facility] Laboratory Comment on above: QMO CBC/MM LABS (no urine) (SO)QMO CBC/CMP(S)/M M LABS(NO URINE)* (SO)QMO CBC/CMP(S)/M M LABS(NO URINE)/BNP* Start: 02-04-2025 End: 02-04-2025 Patient encounter procedure 02/04/2025 1:40 PM EDT Office Visit Family [facility] [place] [address] [place] [address] Sheree Fabian PA-C [address] [facility] [address] 6 month follow up Family [facility] Comment on above: 6 month follow up Start: 02-03-2025 Covid-19 Vaccine ( season) Covid-19 Vaccine ( season) [facility] Start: 01-29-2025 Complete blood count Hemoglobin/Hematocrit [facility] Start: 01-29-2025 Creatinine measurement Serum Creatinine [facility] Start: 01-29-2025 End: 01-29-2025 Specialty Pharmacy 01/29/2025 7:45 AM EDT Specialty Pharmacy [facility] [address] [place] [address] Pharmacist, [facility] [address] [place] [address] [place] [address] Refill - [facility] [30DS] Prefers delivery on non-dialysis days (, , Mon) [facility] Comment on above: Refill - [place] [30DS] Prefers deliver y on non-dialysis days (, , Mon) Start: 01-27-2025 End: 01-27-2025 Specialty Pharmacy 01/27/2025 7:00 AM EDT Specialty Pharmacy [facility] [address] [place] [id number] Pharmacist, Specialtygroup [address] [place] [address] [place] [address] Refill - Brukinsa [30DS] Prefers delivery on non-dialysis days (, , Sat) [facility] Comment on above: Refill - Brukinsa [30DS] Prefers deliver y on non-dialysis days (, , Mon) Start: 01-23-2025 End: 01-23-2025 ambulatory 01/23/2025 10:00 AM EDT Results Only [facility] [address] [place] [address] (SO)QMO CBC/MM LABS(NO URINE)* [facility] Comment on above: (SO)QMO CBC/MM LABS(NO URINE)* Start: 01-21-2025 End: 01-21-2025 Patient encounter procedure 01/21/2025 3:00 PM EDT Office Visit Cardiology [address] [place] [address] Chester Patel MD [address] [facility] [address] [place] [address] OV cardiac amyloidosis Cardiology Comment on above: OV cardiac amyloidosis Start: 01-21-2025 End: 01-21-2025 ambulatory 01/21/2025 10:00 AM EDT Results Only Maria Esther [place] [facility] Laboratory [address] [place] [address] QMO CBC/MM LABS (no urine) [facility] Comment on above: QMO CBC/MM LABS (no urine) Start: 01-20-2025 DIABETES SCREEN DIABETES SCREEN [facility] Start: 01-17-2025 End: 04-18-2025 Hemoglobin A1c in Blood HEMOGLOBIN A1C Lab Routine Elevated hemoglobin A1c Expected: 01/17/2025, Expires: 04/18/2025 [facility] Work Phone: Comment on above: Expected: 01/17/2025, Expires: 5 Start: 01-17-2025 End: 04-18-2025 Lipid 1996 panel - Serum or Plasma LIPID PANEL BASIC Lab Routine Hyperlipidemia, mixed Expected: 01/17/2025, Expires: 04/18/2025 [facility] Comment on above: Expected: 01/17/2025, Expires: Start: 01-17-2025 End: 04-18-2025 Thyrotropin [Units/volume] in Serum or Plasma THYROID STIMULATING HORMONE Lab Routine Abnormal thyroid blood test Prediabetes Expected: 01/17/2025, Expires: 04/18/2025 [facility] Comment on above: Expected: 01/17/2025, Expires: Start: 01-14-2025 Patient discharge [facility] Start: 01-14-2025 Anesthesia vascular shunt/shunt revision ANESTH VASCULAR SHUNT SURG [facility] Start: 01-14-2025 Crtj arven fstl xcp dir arven anast nonautog grf ARTERY-VEIN NONAUTOGRAFT [facility] Start: 12-27-2024 End: 12-27-2024 Specialty Pharmacy 12/27/2024 7:45 AM EDT Specialty Pharmacy [facility] [address] [place], [place] [address] [place] [address] Pharmacist, Specialtygroup [address] [place] [address] [place] [address] Refill - Brukinsa [30DS] Prefers delivery on non-dialysis days (, , Mon) [facility] 12/25 [facility] Comment on above: Refill - Brukinsa [30DS] Prefers deliver y on non-dialysis days (, , Mon) [facility] 12/25 Start: 12-25-2024 End: 12-25-2024 Specialty Pharmacy 12/25/2024 10:00 AM EDT Specialty Pharmacy [facility] [address] [place] [address] Drive [address] [place] [address] Pharmacist, [facility]ty[facility] [address] [place] [address] [place] [address] Refill - Brukinsa [30DS] Prefers delivery on non-dialysis days (, , Mon) [facility] Comment on above: Refill - Brukinsa [30DS] Prefers deliver y on non-dialysis days (, Mon) Start: 12-24-2024 End: 12-24-2024 ambulatory 12/24/2024 10:00 AM EDT Results Only Maria Esther [facility] [address] [place] [address] QMO CBC/MM LABS (no urine) [facility] Comment on above: QMO CBC/MM LABS (no urine) Start: 12-17-2024 Complete blood count Hemoglobin/Hematocrit [facility] Start: 12-17-2024 Creatinine measurement Serum Creatinine [facility] Start: 12-11-2024 Complete blood count Hemoglobin/Hematocrit [facility] Start: 12-11-2024 Creatinine measurement Serum Creatinine [facility] Start: 12-10-2024 End: 12-10-2024 Patient encounter procedure 12/10/2024 2:40 PM EDT Office Visit Cardiology [address] [place] [address] 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, 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] Cardiology Comment on above: 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, 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] Start: 12-04-2024 Complete blood count Hemoglobin/Hematocrit [facility] Start: 12-04-2024 Creatinine measurement Serum Creatinine [facility] Start: 12-03-2024 End: 12-03-2024 [facility] Comment on above: CBC/CMP(S)/MYELOMA LABS - NO URINE* OV/LABS EARLY* T/TH APPTS OV/LABS 11/26* T/TH A PPTS Start: 11-28-2024 Annual PCP Team Chronic Disease Visit Annual PCP Team Chronic Disease Visit [facility] Start: 11-26-2024 Complete blood count Hemoglobin/Hematocrit [facility] Start: 11-26-2024 Creatinine measurement Serum Creatinine [facility] Start: 11-26-2024 End: 11-26-2024 Specialty Pharmacy 11/26/2024 7:15 AM EDT Specialty Pharmacy [facility] [employer] [facility] [place] [address] Pharmacist, [facility]tygroup [address] [place] [address] [place] [address] Refill - Brukinsa [30DS] Preferrs delivery on non-dialysis days (, , Sat) [facility] Comment on above: Refill - Brukinsa [30DS] Preferrs delive ry on non-dialysis days (, , Sat) Start: 11-20-2024 Complete blood count Hemoglobin/Hematocrit [facility] Start: 11-20-2024 Creatinine measurement Serum Creatinine [facility] Start: 11-14-2024 Complete blood count Hemoglobin/Hematocrit [facility] Start: 11-14-2024 Creatinine measurement Serum Creatinine [facility] Start: 11-07-2024 Complete blood count Hemoglobin/Hematocrit [facility] Start: 11-07-2024 Creatinine measurement Serum Creatinine [facility] Start: 10-31-2024 End: 10-31-2024 Specialty Pharmacy 10/31/2024 7:30 AM EST Specialty Pharmacy [facility] [employer] [address] [place] [address] Pharmacist, [facility]ty[facility] [address] [place] [address] [place] [address] Refill - Brukinsa [30DS] Preferrs delivery on non-dialysis days (, Mon) rfl req'd 10/28 [facility] Comment on above: Refill - Brukinsa [30DS] Preferrs delive ry on non-dialysis days (, Mon) rfl req'd 10/28 Start: 10-28-2024 End: 10-28-2024 Specialty Pharmacy 10/28/2024 7:00 AM EST Specialty [facility]acy [facility] [address] [place] [address] [id number] [place] [address] Pharmacist, Specialtygroup [address] [place] [address] Refill - Brukinsa [30DS] Preferrs delivery on non-dialysis days (, Mon) [facility] Comment on above: Refill - Brukinsa [30DS] Preferrs delive ry on non-dialysis days (, Mon) Start: 10-27-2024 Complete blood count Hemoglobin/Hematocrit [facility] Start: 10-27-2024 Creatinine measurement Serum Creatinine [facility] Start: 10-26-2024 Annual PCP Team Chronic Disease Visit Annual PCP Team Chronic Disease Visit [facility] Start: 10-17-2024 Complete blood count Hemoglobin/Hematocrit [facility] Start: 10-17-2024 Creatinine measurement Serum Creatinine [facility] Start: 10-10-2024 End: 01-09-2025 Comprehensive metabolic 2000 panel - Serum or Plasma COMPREHENSIVE METABOLIC PANEL Lab Routine AL amyloidosis (HCC) Chronic heart failure with preserved ejection fraction (HFpEF) (HCC) Expected: 10/10/2024, Expires: 01/09/2025 [facility] Work Phone: Comment on above: Expected: 10/10/2024, Expires: Start: 10-10-2024 End: 01-09-2025 Natriuretic peptide.B prohormone N-Terminal [Mass/volume] in Serum or Plasma NT PRO BNP Lab Routine AL amyloidosis (HCC) Chronic heart failure with preserved ejection fraction (HFpEF) (HCC) Expected: 10/10/2024, Expires: 01/09/2025 [facility] Comment on above: Expected: 10/10/2024, Expires: Start: 10-10-2024 End: 10-10-2024 Patient encounter procedure 10/10/2024 1:40 PM EST Office Visit Cardiology [address] [place] [address] Yessica Hansen MD [address] [place] [address] Cardiomyopathy, unspecified type (HCC) [I42.9] Cardiology Comment on above: Cardiomyopathy, unspecified type (HCC) [ I42.9] Start: 10-01-2024 Covid-19 Vaccine () Covid-19 Vaccine () [facility] Start: 09-26-2024 End: 09-26-2024 Specialty Pharmacy 09/26/2024 10:00 AM EST Specialty Pharmacy [facility] [employer] [id number] [place] [address] Pharmacist, Specialtygroup 1 [facility] [place] [address] Refill - Brukinsa [30DS] Preferrs delivery on non-dialysis days (Alondra Harry, Sat) [facility] Comment on above: Refill - Brukinsa [30DS] Preferrs delive ry on non-dialysis days (janet , Sat) Start: 09-18-2024 Advance Directive Discussion Advance Directive Discussion [facility] Start: 09-03-2024 End: 09-03-2024 ambulatory Hematology/Oncolog y Comment on above: OV/LABS EARLY/ON BRUKINSA* T/TH APPTS CBC/CMP(S)/MYELOMA L ABS - NO URINE* Start: 09-01-2024 Complete blood count Hemoglobin/Hematocrit [facility] Start: 09-01-2024 Creatinine measurement Serum Creatinine [facility] Start: 08-28-2024 End: 08-28-2024 Specialty Pharmacy 08/28/2024 7:30 AM EST Specialty Pharmacy [facility] [employer] [address] [place] [address] Pharmacist, Specialtygroup [address] [place] [address] [place] [address] Refill - Brukinsa [30DS] Preferrs delivery on non-dialysis days (, , Mon) [facility] 08/26 [facility] Comment on above: Refill - Brukinsa [30DS] Preferrs delive ry on non-dialysis days (, , Mon) [facility] 08/26 Start: 08-26-2024 End: 08-26-2024 Specialty Pharmacy 08/26/2024 7:00 AM EST Specialty Pharmacy [facility] [place] [id number] [address] Pharmacist, Specialtygroup [address] [place] [address] Refill - Brukinsa [30DS] Preferrs delivery on non-dialysis days (, Mon) [facility] Comment on above: Refill - Brukinsa [30DS] Preferrs delive ry on non-dialysis days (, Mon) Start: 08-25-2024 Hemoglobin/Hematocrit Hemoglobin/Hematocrit [facility] Start: 08-25-2024 Serum Creatinine Serum Creatinine [facility] Start: 08-24-2024 Hemoglobin/Hematocrit Hemoglobin/Hematocrit [facility] Start: 08-24-2024 Serum Creatinine Serum Creatinine [facility] Start: 08-23-2024 Hemoglobin/Hematocrit Hemoglobin/Hematocrit [facility] Start: 08-23-2024 Serum Creatinine Serum Creatinine [facility] Start: 08-15-2024 Hemoglobin/Hematocrit Hemoglobin/Hematocrit [facility] Start: 08-15-2024 Serum Creatinine Serum Creatinine [facility] Start: 08-08-2024 Hemoglobin/Hematocrit Hemoglobin/Hematocrit [facility] Start: 08-08-2024 End: 08-08-2024 ambulatory 08/08/2024 10:00 AM EST Results Only Maria Esther Vogt [facility] Laboratory [address] [place] [address] CBC/MYELOMA LABS - NO URINE* Maria Esther [place]t [facility] Laboratory Comment on above: CBC/MYELOMA LABS - NO URINE* Start: 08-06-2024 End: 08-06-2024 Patient encounter procedure 08/06/2024 9:00 AM EST Office Visit Family Medicine Maria Esther [address] [place] [address] Jose Miguel Herbert MD [address] [place] [address] Medicare wellness Family Medicine Maria Esther Comment on above: Medicare wellness Start: 08-02-2024 Hemoglobin/Hematocrit Hemoglobin/Hematocrit [facility] Start: 07-31-2024 End: 10-30-2024 Hemoglobin A1c in Blood HEMOGLOBIN A1C Lab Routine Elevated hemoglobin A1c Expected: 07/31/2024, Expires: 10/30/2024 [facility] Comment on above: Expected: 07/31/2024, Expires: Start: 07-31-2024 End: 10-30-2024 LIPID PANEL, NONFASTING LIPID PANEL, NONFASTING Lab Routine Chronic diastolic congestive heart failure (HCC) Hyperlipidemia, mixed Expected: 07/31/2024, Expires: 10/30/2024 [facility] Work Phone: Comment on above: Expected: 07/31/2024, Expires: Start: 07-26-2024 Hemoglobin/Hematocrit Hemoglobin/Hematocrit [facility] Start: 07-25-2024 End: 07-25-2024 Specialty Pharmacy 07/25/2024 9:00 AM EST Specialty Pharmacy [facility] [address] [place] [address] Pharmacist, [facility]ty[facility] [address] [place] [address] [place] [address] Refill - Brukinsa [30DS] Preferrs delivery on non-dialysis days (, , Sat) [facility] Comment on above: Refill - Brukinsa [30DS] Preferrs delive ry on non-dialysis days (, , Sat) Start: 07-18-2024 Hemoglobin/Hematocrit Hemoglobin/Hematocrit [facility] Start: 07-18-2024 Serum Creatinine Serum Creatinine [facility] Start: 07-18-2024 End: 07-18-2024 ambulatory 07/18/2024 10:00 AM EDT Results Only Maria Esther Vogt [facility] Laboratory [address] [place] [address] CBC/MYELOMA LABS - NO URINE* Maria Esther Vogt [facility] Laboratory Comment on above: CBC/MYELOMA LABS - NO URINE* Start: 07-11-2024 End: 07-11-2024 ambulatory 07/11/2024 10:00 AM EDT Results Only Maria Esther Vogt [facility] Laboratory [address] [place] [address] CBC/MYELOMA LABS - NO URINE* Maria Esther [place]ogt [facility] Laboratory Comment on above: CBC/MYELOMA LABS - NO URINE* Start: 06-28-2024 Hemoglobin/Hematocrit Hemoglobin/Hematocrit [facility] Start: 06-21-2024 End: 06-21-2024 Specialty Pharmacy 06/21/2024 11:00 AM EDT Specialty Pharmacy [facility] [address] [place] [address] [address] [place] [address] Pharmacist, [facility]tygroup [address] [place] [phone] Refill - Brukinsa [30DS] Preferrs delivery on non-dialysis days (Alondra Harry, Sat) [facility] Comment on above: Refill - Brukinsa [30DS] Preferrs delive ry on non-dialysis days (Alondra Harry, Sat) Start: 06-20-2024 End: 06-20-2024 ambulatory 06/20/2024 2:30 PM EDT Infusion Center Hematology/Oncology [address] [place] [address] D3 BENDAMUSTINE/ONPRO/MDCR* - T/TH APPTS Hematology/Oncolog y Comment on above: D3 BENDAMUSTINE/ONPRO/MDCR* - T/TH APPTS Start: 06-19-2024 Hemoglobin/Hematocrit Hemoglobin/Hematocrit [facility] Start: 06-19-2024 Serum Creatinine Serum Creatinine [facility] Start: 06-18-2024 End: 06-18-2024 ambulatory 06/18/2024 11:[address] [facility] Hematology/Oncology [address] [place] [address] QMO BENDAMUSTINE/RITUXAN SQ/LAB&OV 06/13/MDCR* - T/ APPTS Hematology/Oncolog y Comment on above: QMO BENDAMUSTINE/RITUXAN SQ/LAB&OV 06/13/ MDCR* - T/TH APPTS Start: 06-13-2024 End: 06-13-2024 ambulatory Maria Esther [place] [facility] Laboratory Comment on above: CBC/CMP(S)/MYELOMA LABS - NO URINE* T/ APPTS OV/LABS EARLY/CHEMO 910/1* T/ APPTS OV/LABS EARLY/ON BRU KINSA* / APPTS Start: 06-07-2024 Hemoglobin/Hematocrit Hemoglobin/Hematocrit [facility] Start: 06-05-2024 End: 06-05-2024 Patient encounter procedure 06/05/2024 1:00 PM EDT Office Visit Family Celestino [place] [address] [place] [address] Jose Miguel Herbert MD [address] [place] [address] Medicare wellness Family Medicine Maria Esther Comment on above: Medicare wellness Start: 05-31-2024 Hemoglobin/Hematocrit Hemoglobin/Hematocrit [facility] Start: 05-31-2024 Serum Creatinine Serum Creatinine [facility] Start: 05-30-2024 End: 05-30-2024 ambulatory 05/30/2024 11:00 AM EDT Results Only Maria Esther [place] [facility] Laboratory [address] [place] [address] CBC* [place] [facility] Laboratory Comment on above: CBC* Start: 05-27-2024 ANNUAL PCP TEAM CHRONIC DISEASE VISIT ANNUAL PCP TEAM CHRONIC DISEASE VISIT [facility] Start: 05-23-2024 HEMOGLOBIN/HEMATOCRIT HEMOGLOBIN/HEMATOCRIT [facility] Start: 05-23-2024 SERUM CREATININE SERUM CREATININE [facility] Start: 05-23-2024 End: 05-23-2024 ambulatory Hematology/Oncolog y Comment on above: D3 BENDAMUSTINE/ONPRO/MDCR* - T/TH APPTS Start: 05-21-2024 End: 05-21-2024 ambulatory Hematology/Oncolog y Comment on above: QMO BENDAMUSTINE/RITUXAN SQ/LAB&OV 05/16/ MDCR* - T/TH APPTS Refill - Brukinsa [3 0DS] Preferrs delivery on non-dialysis days (, Sat) [facility] 05/13 (still working on re-enrolling naeem, but copay is $0). 05/14 pt has 2wks qoh, f/u in 1wk. Start: 05-19-2024 Covid-19 Vaccine ( season) Covid-19 Vaccine () [facility] Start: 05-19-2024 Influenza vaccination Influenza Vaccine (#1) [facility] Start: 05-17-2024 End: 05-17-2024 Specialty Pharmacy 05/17/2024 9:15 AM EDT Specialty Pharmacy [facility] [employer] [address] [address] Pharmacist, Specialtygroup [address] [place] [address] [place] [address] Refill - Brukinsa. 30DS. Preferrs delivery on non-dialysis days (, Mon) [facility] Comment on above: Refill - Brukinsa. 30DS. Preferrs delive ry on non-dialysis days (, Mon) Start: 05-16-2024 End: 05-16-2024 ambulatory [facility] Laboratory Comment on above: CBC/CMP(S)/MYELOMA LABS - NO URINE* T/TH APPTS OV/LABS EARLY/CHEMO 05/21* T/TH APPTS Start: 05-15-2024 End: 05-15-2024 Specialty Pharmacy 05/15/2024 9:00 AM EDT Specialty Pharmacy [facility] [employer] [facility] [place] [address] Pharmacist, [facility]tygroup [address] [place] [address] [place] [address] Refill - Brukinsa [30DS] Preferrs delivery on non-dialysis days (, , Sat) [facility] 05/13 (still working on re-enrolling naeem, but copay is $0) [facility] Comment on above: Refill - Brukinsa [30DS] Preferrs delive ry on non-dialysis days (, , Sat) [facility] 05/13 (still working on re-enrolling naeem, but copay is $0) Start: 04-25-2024 End: 04-25-2024 ambulatory 04/25/2024 11:00 AM EDT Infusion Center Hematology/Oncology [address] [place] [address] D3 BENDAMUSTINE/ONPRO/MDCR* - T/TH APPTS Hematology/Oncolog y Comment on above: D3 BENDAMUSTINE/ONPRO/MDCR* - T/TH APPTS Start: 04-23-2024 End: 04-23-2024 ambulatory 04/23/2024 1:30 PM EDT Infusion Center Hematology/Oncology [address] [place] [address] QMO BENDAMUSTINE/RITUXAN SQ/LAB&OV 8/1/MDCR* - T/TH APPTS Hematology/Oncolog y Comment on above: QMO BENDAMUSTINE/RITUXAN SQ/LAB&OV 8/1/M DCR* - T/TH APPTS Start: 04-18-2024 End: 07-18-2024 Ferritin [Mass/volume] in Serum or Plasma [facility] Comment on above: Expected: 04/18/2024, Expires: Start: 04-18-2024 End: 07-18-2024 Iron and Iron binding capacity panel - Serum or Plasma [facility] Work Phone: Comment on above: Expected: 04/18/2024, Expires: Start: 04-18-2024 End: 04-18-2024 ambulatory [facility] Comment on above: CBC/CMP(S)/MYELOMA LABS - NO URINE* OV/LABS EARLY/CHEMO 8/* CBC/CMP(S)/MYELOMA L ABS - NO URINE* T/TH APPTS OV/LABS EARLY/CHEMO 04/23* T/TH APPTS Start: 04-09-2024 End: 04-09-2024 Patient encounter procedure 04/09/2024 2:45 PM EDT Office Visit Cardiology [address] [place] [address] Chester Patel MD [address] [facility] Desk [address] [place] [address] Main, Nurse Card Chf [address] [place] [address] DX: Acute on chronic heart failure with preserved ejection fraction Cardiology Comment on above: DX: Acute on chronic heart failure with preserved ejection fraction Start: 03-28-2024 End: 03-28-2024 ambulatory 03/28/2024 11:00 AM EDT Infusion Center Hematology/Oncology [address] [place] [address] D3 BENDAMUSTINE/ONPRO/MDCR* - T/TH APPTS Hematology/Oncolog y Comment on above: D3 BENDAMUSTINE/ONPRO/MDCR* - T/TH APPTS Start: 03-26-2024 End: 03-26-2024 ambulatory Hematology/Oncolog y Comment on above: QMO BENDAMUSTINE/RITUXAN SQ/LAB&OV 7/5/M DCR* - T/ APPTS CBC/CMP(S)/MYELOMA L ABS - NO URINE* T/ APPTS Start: 03-23-2024 ANNUAL PCP TEAM CHRONIC DISEASE VISIT ANNUAL PCP TEAM CHRONIC DISEASE VISIT [facility] Start: 03-22-2024 End: 03-22-2024 ambulatory [facility] Laboratory Comment on above: CBC/CMP(S)/MYELOMA LABS - NO URINE* [facility] Start: 03-19-2024 End: 03-19-2024 ambulatory [facility] Laboratory Comment on above: CBC/CMP(S)/MYELOMA LABS - NO URINE* T/ APPTS [facility] Start: 03-08-2024 End: 03-08-2024 Patient encounter procedure 03/08/2024 2:15 PM EDT Office Visit Cardiology [address] [place] [id number] Chester Patel MD [address] [place] [address] Main, Nurse Card Chf [address] [place] [address] DX: Acute on chronic heart failure with preserved ejection fraction Cardiology Comment on above: DX: Acute on chronic heart failure with preserved ejection fraction Start: 02-29-2024 End: 02-29-2024 ambulatory 02/29/2024 11:00 AM EDT Infusion Center Hematology/Oncology [address] [place] [address] D3 BENDAMUSTINE/ONPRO/MDCR* - T/TH APPTS Hematology/Oncolog y Comment on above: D3 BENDAMUSTINE/ONPRO/MDCR* - T/TH APPTS Start: 02-27-2024 End: 02-27-2024 ambulatory 02/27/2024 1:30 PM EDT Infusion Center Hematology/Oncology [address] [place] [address] QMO BENDAMUSTINE/RITUXAN SQ/LAB&OV 6/7/MDCR* - T/TH APPTS Hematology/Oncolog y Comment on above: QMO BENDAMUSTINE/RITUXAN SQ/LAB&OV 6/7/M DCR* - T/TH APPTS Start: 02-23-2024 End: 02-23-2024 ambulatory Hematology/Oncolog y Comment on above: D3 NEULASTA/MDCR* CBC/CMP(S)/MYELOMA L ABS - NO URINE* OV/LABS EARLY/CHEMO 02/26* Start: 02-22-2024 End: 02-22-2024 ambulatory 02/22/2024 1:30 PM EDT Infusion Center Hematology/Oncology [address] [place] [address] D2 BENDAMUSTINE/MDCR* Hematology/Oncolog y Comment on above: D2 BENDAMUSTINE/MDCR* Start: 02-21-2024 End: 02-21-2024 ambulatory 02/21/2024 1:30 PM EDT Infusion Center Hematology/Oncology [address] [place] [address] Q3WK BENDAMUSTINE/RITUXAN/LAB&OV 02/19/MDCR* Hematology/Oncolog y Comment on above: Q3WK BENDAMUSTINE/RITUXAN/LAB&OV 02/19/MDC R* Start: 02-20-2024 End: 02-20-2024 [facility] CBC/CMP(S)/MYELOMA LABS - NO URINE* OV/LABS EARLY/CHEMO 02/20* Start: 02-02-2024 Covid-19 Vaccine () Covid-19 Vaccine () [facility] Start: 02-02-2024 End: 02-02-2024 ambulatory 02/02/2024 10:45 AM EDT Infusion Center Hematology/Oncology [address] [place] [address] Wstr, Injection Stef [facility] [address] [place] [address] D3 NEULASTA/MDCR* Hematology/Oncolog y Comment on above: D3 NEULASTA/MDCR* Start: 02-01-2024 End: 02-01-2024 ambulatory Hematology/Oncolog y Comment on above: D2 BENDAMUSTINE/MDCR* D3 BENDAMUSTINE/ONPR O/MDCR* - T/TH APPTS Start: 01-31-2024 End: 01-31-2024 ambulatory 01/31/2024 1:30 PM EDT Infusion Center Hematology/Oncology [address] [place] [address] Q3WK BENDAMUSTINE/RITUXAN/LAB&OV 01/29/MDCR* Hematology/Oncolog y Comment on above: Q3WK BENDAMUSTINE/RITUXAN/LAB&OV 01/29/MD CR* Start: 01-30-2024 End: 01-30-2024 ambulatory [facility] Comment on above: CBC/CMP(S)/MYELOMA LABS - NO URINE* OV/LABS EARLY/CHEMO 01/30* Start: 01-12-2024 End: 01-12-2024 Patient encounter procedure 01/12/2024 2:00 PM EDT Office Visit Kidney [facility] [address] [place] [address] [place] [address] [address], [place] [id number] 1 Month Follow Up [facility]ney [facility] Comment on above: 1 Month Follow Up Start: 12-15-2023 [facility] Start: 12-15-2023 [facility] Start: 12-15-2023 Bacteria identified in Blood by Culture Blood Culture [facility] Start: 12-15-2023 Bacteria identified in Urine by Culture [facility] Start: 12-15-2023 Blood culture [facility] Start: 12-15-2023 [facility] Start: 12-07-2023 End: 03-07-2024 Chronic hepatitis differentiation between hepatitis B and C virus panel - Serum or Plasma [facility] Work Phone: Comment on above: Expected: 12/07/2023, Expires: 4 Start: 12-05-2023 End: 03-05-2024 Hepatitis B virus surface Ab [Presence] in Serum HEP B SURF AB Lab Routine CKD (chronic kidney disease), stage V (HCC) Expected: 12/05/2023, Expires: 03/05/2024 [facility] Work Phone: Comment on above: Expected: 12/05/2023, Expires: 4 Start: 12-05-2023 End: 03-05-2024 Hepatitis B virus surface Ag [Presence] in Serum HEP B SURF AG SCRN Lab Routine CKD (chronic kidney disease), stage V (HCC) Expected: 12/05/2023, Expires: 03/05/2024 [facility] Work Phone: Comment on above: Expected: 12/05/2023, Expires: 4 Start: 11-29-2023 End: 02-28-2024 Hemoglobin A1c in Blood HGB A1C Lab Routine Elevated hemoglobin A1c Expected: 11/29/2023, Expires: 02/28/2024 [facility] Work Phone: Comment on above: Expected: 11/29/2023, Expires: 4 Start: 11-29-2023 End: 02-28-2024 LIPID PANEL, NONFASTING LIPID PANEL, NONFASTING Lab Routine Hyperlipidemia, mixed Expected: 11/29/2023, Expires: 02/28/2024 [facility] Work Phone: Comment on above: Expected: 11/29/2023, Expires: 4 Start: 10-23-2023 End: 01-22-2024 Protein/Creatinine [Mass Ratio] in Urine [facility] Work Phone: Comment on above: Expected: 10/23/2023, Expires: 4 Start: 10-04-2023 Covid-19 Vaccine () Covid-19 Vaccine () [facility] Start: 09-18-2023 Advance Directive Discussion Advance Directive Discussion [facility] Start: 09-18-2023 Depression Assessment Depression Assessment [facility] Start: 08-15-2023 End: 11-14-2023 Protein/Creatinine [Mass Ratio] in Urine PROTEIN CREATININE RATIO Lab Routine AL amyloidosis (HCC) Expected: 08/15/2023 (Approximate), Expires: 11/14/2023 [facility] Work Phone: Comment on above: Expected: 08/15/2023 (Approximate), Expi res: 11/14/2023 Start: 07-02-2023 DIABETES SCREEN DIABETES SCREEN [facility] Start: 06-18-2023 End: 08-18-2023 Hemoglobin A1c in Blood HGB A1C Lab Routine Elevated blood sugar Expected: 06/18/2023, Expires: 08/18/2023 [facility] Work Phone: Comment on above: Expected: 06/18/2023, Expires: 3 Start: 06-18-2023 End: 08-18-2023 LIPID PANEL, NONFASTING LIPID PANEL, NONFASTING Lab Routine Elevated LDL cholesterol level Expected: 06/18/2023, Expires: 08/18/2023 [facility] Work Phone: Comment on above: Expected: 06/18/2023, Expires: 3 Start: 05-31-2023 End: 07-31-2023 Basic metabolic 2000 panel - Serum or Plasma BASIC METABOLIC PNL Lab STAT 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) SINDI (acute kidney injury) (HCC) 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) Expected: 05/31/2023, Expires: 07/31/2023 [facility] Work Phone: Comment on above: Expected: 05/31/2023, Expires: 3 Start: 05-31-2023 End: 07-31-2023 Thyrotropin [Units/volume] in Serum or Plasma [facility] Work Phone: Comment on above: Expected: 05/31/2023, Expires: 3 Start: 05-31-2023 End: 07-31-2023 Thyroxine (T4) free [Mass/volume] in Serum or Plasma [facility] Work Phone: Comment on above: Expected: 05/31/2023, Expires: 3 Start: 05-25-2023 End: 07-25-2023 CRYOGLOBULIN, QUAL, REFLEX TO KATHRYN AND IGG,A,M CRYOGLOBULIN, QUAL, REFLEX TO KATHRYN AND IGG,A,M Lab 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) Expected: 05/25/2023, Expires: 07/25/2023 [facility] Work Phone: Comment on above: Expected: 05/25/2023, Expires: 3 Start: 05-19-2023 Covid-19 Vaccine () Covid-19 Vaccine () [facility] Start: 05-19-2023 Influenza vaccination [facility] Start: 05-05-2023 End: 07-05-2023 Thyrotropin [Units/volume] in Serum or Plasma TSH BLD Lab Routine Abnormal thyroid blood test Anemia, unspecified type Expected: 05/05/2023, Expires: 07/05/2023 [facility] Work Phone: Comment on above: Expected: 05/05/2023, Expires: 3 Start: 05-05-2023 End: 07-05-2023 Thyroxine (T4) free [Mass/volume] in Serum or Plasma T4 FREE/FREE THYROX Lab Routine Abnormal thyroid blood test Anemia, unspecified type Expected: 05/05/2023, Expires: 07/05/2023 [facility] Work Phone: Comment on above: Expected: 05/05/2023, Expires: 3 Start: 05-05-2023 End: 07-05-2023 Triiodothyronine (T3) Free [Mass/volume] in Serum or Plasma T3 FREE BLD Lab Routine Abnormal thyroid blood test Expected: 05/05/2023, Expires: 07/05/2023 [facility] Work Phone: Comment on above: Expected: 05/05/2023, Expires: 3 Start: 05-03-2023 SHINGRIX VACCINE (2 of 2) SHINGRIX VACCINE (2 of 2) [facility] Start: 04-27-2023 End: 06-27-2023 Comprehensive metabolic 2000 panel - Serum or Plasma COMP METABOLIC PANEL Lab Routine Acute on chronic heart failure with preserved ejection fraction (HFpEF) ([facility]) Expected: 04/27/2023, Expires: 06/27/2023 [facility] Work Phone: Comment on above: Expected: 04/27/2023, Expires: 3 Start: 04-27-2023 End: 06-27-2023 Natriuretic peptide.B prohormone N-Terminal [Mass/volume] in Serum or Plasma NT PRO BNP Lab Routine Acute on chronic heart failure with preserved ejection fraction (HFpEF) ([facility]) Expected: 04/27/2023, Expires: 06/27/2023 [facility] Work Phone: Comment on above: Expected: 04/27/2023, Expires: 3 Start: 04-23-2023 End: 06-23-2023 HIGH SENSITIVITY TROPONIN T HIGH SENSITIVITY TROPONIN T Lab Routine Nonspecific ST-T wave electrocardiographic changes Light chain (AL) amyloidosis (HCC) Expected: 04/23/2023, Expires: 06/23/2023 [facility] Work Phone: Comment on above: Expected: 04/23/2023, Expires: 3 Start: 04-23-2023 End: 06-23-2023 Natriuretic peptide.B prohormone N-Terminal [Mass/volume] in Serum or Plasma NT PRO BNP Lab Routine Nonspecific ST-T wave electrocardiographic changes Light chain (AL) amyloidosis (HCC) Dyspnea, unspecified Expected: 04/23/2023, Expires: 06/23/2023 [facility] Work Phone: Comment on above: Expected: 04/23/2023, Expires: 3 Start: 04-06-2023 End: 06-06-2023 Chronic hepatitis differentiation between hepatitis B and C virus panel - Serum or Plasma HEP REMOTE PANEL BL Lab 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 Expected: 04/06/2023, Expires: 06/06/2023 [facility] Work Phone: Comment on above: Expected: 04/06/2023, Expires: 3 Start: 04-06-2023 End: 06-06-2023 COLD AGGLUTIININS COLD AGGLUTIININS Lab 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 Expected: 04/06/2023, Expires: 06/06/2023 [facility] Work Phone: Comment on above: Expected: 04/06/2023, Expires: 3 Start: 04-06-2023 End: 06-06-2023 CRYOGLOBULIN, QUAL, REFLEX TO KATHRYN AND IGG,A,M CRYOGLOBULIN, QUAL, REFLEX TO KATHRYN AND IGG,A,M Lab 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 Expected: 04/06/2023, Expires: 06/06/2023 [facility] Work Phone: Comment on above: Expected: 04/06/2023, Expires: Start: 04-06-2023 End: 06-06-2023 Direct antiglobulin test.poly specific reagent [Presence] on Red Blood Cells [facility] Blood Bank 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 Expected: 04/06/2023, Expires: 06/06/2023 [facility] Work Phone: Comment on above: Expected: 04/06/2023, Expires: Start: 04-06-2023 End: 06-06-2023 GANGLIOSIDE ANTIBODIES GANGLIOSIDE ANTIBODIES Lab 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 Expected: 04/06/2023, Expires: 06/06/2023 [facility] Work Phone: Comment on above: Expected: 04/06/2023, Expires: 3 Start: 04-06-2023 End: 06-06-2023 Haptoglobin [Mass/volume] in Serum or Plasma HAPTOGLOBIN BLD Lab 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 Expected: 04/06/2023, Expires: 06/06/2023 [facility] Work Phone: Comment on above: Expected: 04/06/2023, Expires: 3 Start: 04-06-2023 End: 06-06-2023 Lactate dehydrogenase [Enzymatic activity/volume] in Serum or Plasma LD LACTATE DEHYDRO Lab 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 Expected: 04/06/2023, Expires: 06/06/2023 [facility] Work Phone: Comment on above: Expected: 04/06/2023, Expires: 3 Start: 04-06-2023 End: 06-06-2023 MAG IGM & SGPG IGM MAG IGM & SGPG IGM Lab 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 Expected: 04/06/2023, Expires: 06/06/2023 [facility] Work Phone: Comment on above: Expected: 04/06/2023, Expires: 3 Start: 04-06-2023 End: 06-06-2023 RETIC COUNT RETIC COUNT Lab 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 Expected: 04/06/2023, Expires: 06/06/2023 [facility] Work Phone: Comment on above: Expected: 04/06/2023, Expires: 3 Start: 04-05-2023 End: 06-05-2023 [id number] [Mass/volume] in Serum or Plasma B2 MICROGLOBULIN B Lab Routine Monoclonal (M) protein disease, multiple 'M' protein Expected: 04/05/2023, Expires: 06/05/2023 [facility] Work Phone: Comment on above: Expected: 04/05/2023, Expires: 3 Start: 04-05-2023 End: 06-05-2023 CBC W Auto Differential panel - Blood CBC + DIFF Lab STAT Monoclonal (M) protein disease, multiple 'M' protein Expected: 04/05/2023, Expires: 06/05/2023 [facility] Work Phone: Comment on above: Expected: 04/05/2023, Expires: 3 Start: 04-05-2023 End: 06-05-2023 Comprehensive metabolic 2000 panel - Serum or Plasma COMP METABOLIC PANEL Lab STAT Monoclonal (M) protein disease, multiple 'M' protein Expected: 04/05/2023, Expires: 06/05/2023 [facility] Work Phone: Comment on above: Expected: 04/05/2023, Expires: 3 Start: 04-05-2023 End: 06-05-2023 MONOCLONAL PROTEIN, SERUM (BLOOD) MONOCLONAL PROTEIN, SERUM (BLOOD) Lab Routine Monoclonal (M) protein disease, multiple 'M' protein Expected: 04/05/2023, Expires: 06/05/2023 [facility] Work Phone: Comment on above: Expected: 04/05/2023, Expires: 3 Start: 04-05-2023 End: 06-05-2023 PROTEIN ELECTROPHORESIS SERUM W/INTERP PROTEIN ELECTROPHORESIS SERUM W/INTERP Lab Routine Monoclonal (M) protein disease, multiple 'M' protein Expected: 04/05/2023, Expires: 06/05/2023 [facility] Work Phone: Comment on above: Expected: 04/05/2023, Expires: 3 Start: 04-05-2023 End: 06-05-2023 SERUM VISCOSITY SERUM VISCOSITY Lab Routine Monoclonal (M) protein disease, multiple 'M' protein Expected: 04/05/2023, Expires: 06/05/2023 [facility] Work Phone: Comment on above: Expected: 04/05/2023, Expires: 3 Start: 04-04-2023 End: 06-04-2023 Folate [Mass/volume] in Serum or Plasma FOLATE SERUM Lab Routine Macrocytosis Expected: 04/04/2023, Expires: 06/04/2023 [facility] Work Phone: Comment on above: Expected: 04/04/2023, Expires: 3 Start: 03-23-2023 End: 05-23-2023 BRITTNEE BY IFA SCREEN BRITTNEE BY IFA SCREEN Lab Routine Generalized weakness Expected: 03/23/2023, Expires: 05/23/2023 [facility] Work Phone: Comment on above: Expected: 03/23/2023, Expires: 3 Start: 03-23-2023 End: 05-23-2023 Borrelia burgdorferi IgG and IgM panel - Serum LYME AB LATE >30 DAYS SYMPTOMS Lab Routine Unintended weight loss Fatigue, unspecified type SOB (shortness of breath) Expected: 03/23/2023, Expires: 05/23/2023 [facility] Work Phone: Comment on above: Expected: 03/23/2023, Expires: 3 Start: 03-23-2023 End: 05-23-2023 C reactive protein [Mass/volume] in Serum or Plasma C-REACTIVE PROTEIN (CRP) Lab Routine Generalized weakness Expected: 03/23/2023, Expires: 05/23/2023 [facility] Work Phone: Comment on above: Expected: 03/23/2023, Expires: 3 Start: 03-23-2023 End: 05-23-2023 CBC W Auto Differential panel - Blood CBC + DIFF Lab Routine Unintended weight loss Fatigue, unspecified type SINDI (acute kidney injury) (HCC) Black hairy tongue Anemia, unspecified type Altered taste Expected: 03/23/2023, Expires: 05/23/2023 [facility] Work Phone: Comment on above: Expected: 03/23/2023, Expires: 3 Start: 03-23-2023 End: 05-23-2023 Cobalamin (Vitamin B12) [Mass/volume] in Serum or Plasma VITAMIN B12 BLOOD Lab Routine Fatigue, unspecified type Anemia, unspecified type Altered taste Lack of appetite Expected: 03/23/2023, Expires: 05/23/2023 [facility] Work Phone: Comment on above: Expected: 03/23/2023, Expires: 3 Start: 03-23-2023 End: 05-23-2023 Comprehensive metabolic 2000 panel - Serum or Plasma COMP METABOLIC PANEL Lab Routine Unintended weight loss Fatigue, unspecified type Decreased stamina Black hairy tongue Altered taste Lack of appetite Expected: 03/23/2023, Expires: 05/23/2023 [facility] Work Phone: Comment on above: Expected: 03/23/2023, Expires: 3 Start: 03-23-2023 End: 05-23-2023 Creatine kinase [Enzymatic activity/volume] in Serum or Plasma CK CREATINE KINASE Lab Routine Generalized weakness Expected: 03/23/2023, Expires: 05/23/2023 [facility] Work Phone: Comment on above: Expected: 03/23/2023, Expires: 3 Start: 03-23-2023 End: 05-23-2023 Erythrocyte sedimentation rate SED RATE WESTERGREN Lab Routine Generalized weakness Expected: 03/23/2023, Expires: 05/23/2023 [facility] Work Phone: Comment on above: Expected: 03/23/2023, Expires: Start: 03-23-2023 End: 05-23-2023 HEAVY METALS SCRN BL HEAVY METALS SCRN BL Lab Routine Unintended weight loss Fatigue, unspecified type SINDI (acute kidney injury) (HCC) Decreased stamina Anemia, unspecified type Altered taste SOB (shortness of breath) Lack of appetite Expected: 03/23/2023, Expires: 05/23/2023 [facility] Work Phone: Comment on above: Expected: 03/23/2023, Expires: Start: 03-23-2023 End: 05-23-2023 Iron and Iron binding capacity panel - Serum or Plasma IRON + TIBC Lab Routine Fatigue, unspecified type Decreased stamina Anemia, unspecified type Altered taste SOB (shortness of breath) Lack of appetite Expected: 03/23/2023, Expires: 05/23/2023 [facility] Work Phone: Comment on above: Expected: 03/23/2023, Expires: 3 Start: 03-23-2023 End: 05-23-2023 Rheumatoid factor [Units/volume] in Serum or Plasma RHEUMATOID FACTOR BL Lab Routine Generalized weakness Expected: 03/23/2023, Expires: 05/23/2023 [facility] Work Phone: Comment on above: Expected: 03/23/2023, Expires: 3 Start: 03-23-2023 End: 05-23-2023 Thyrotropin [Units/volume] in Serum or Plasma TSH BLD Lab Routine Unintended weight loss Fatigue, unspecified type Decreased stamina Altered taste Hoarseness of voice Bilateral leg edema Expected: 03/23/2023, Expires: 05/23/2023 [facility] Work Phone: Comment on above: Expected: 03/23/2023, Expires: 3 Start: 03-23-2023 End: 05-23-2023 Thyroxine (T4) free [Mass/volume] in Serum or Plasma T4 FREE/FREE THYROX Lab Routine Unintended weight loss Fatigue, unspecified type Decreased stamina Altered taste Hoarseness of voice Bilateral leg edema Lack of appetite Expected: 03/23/2023, Expires: 05/23/2023 [facility] Work Phone: Comment on above: Expected: 03/23/2023, Expires: 3 Start: 03-23-2023 End: 05-23-2023 Triiodothyronine (T3) Free [Mass/volume] in Serum or Plasma T3 FREE BLD Lab Routine Unintended weight loss Fatigue, unspecified type Decreased stamina Altered taste Hoarseness of voice Bilateral leg edema Lack of appetite Expected: 03/23/2023, Expires: 05/23/2023 [facility] Work Phone: Comment on above: Expected: 03/23/2023, Expires: 3 Start: 03-18-2023 Patient discharge [facility] Start: 03-17-2023 Ambulation without limitation [facility] Start: 03-17-2023 Assessment of risk of venous thromboembolism [facility] Start: 03-17-2023 Insertion of catheter into peripheral vein [facility] Start: 03-17-2023 Measuring intake and output [facility] Start: 03-17-2023 Providing care according to standard [facility] Start: 03-17-2023 [facility] Start: 03-17-2023 Following clinical pathway protocol [facility] Start: 03-17-2023 US urinary tract Kidney and Bladder [facility] Start: 03-17-2023 Verification routine [facility] Start: 03-17-2023 End: 03-17-2023 Admission procedure [facility] Start: 03-17-2023 Patient referral to dietitian [facility] Start: 03-16-2023 End: 05-16-2023 Comprehensive metabolic 2000 panel - Serum or Plasma [facility] Work Phone: Comment on above: Expected: 03/16/2023, Expires: 3 Start: 03-16-2023 End: 05-16-2023 LIPID PANEL, NONFASTING [facility] Work Phone: Comment on above: Expected: 03/16/2023, Expires: 3 Start: 03-16-2023 End: 05-16-2023 Prostate specific Ag [Mass/volume] in Serum or Plasma [facility] Work Phone: Comment on above: Expected: 03/16/2023, Expires: 3 Start: 03-16-2023 End: 05-16-2023 Urinalysis complete panel - Urine [facility] Work Phone: Comment on above: Expected: 03/16/2023, Expires: 3 Start: 01-27-2023 Adult depression screening assessment DEPRESSION SCREENING [facility] Start: 01-27-2023 SHINGRIX VACCINE (2 of 3) SHINGRIX VACCINE (2 of 3) [facility] Comment on above: Postponed from 07/11/2013 (Insurance Cov erage) Start: 01-27-2023 Urine microalbumin profile DTAP,TDAP,TD (2 - Td or Tdap) [facility] Comment on above: Postponed from 05/13/2020 (Insurance Cov erage) Start: 11-11-2022 End: 01-11-2023 Comprehensive metabolic 2000 panel - Serum or Plasma COMP METABOLIC PANEL Lab Routine Encounter for screening for diabetes mellitus Medication management NSAID long-term use Expected: 11/11/2022, Expires: 01/11/2023 [facility] Work Phone: Comment on above: Expected: 11/11/2022, Expires: 3 Start: 11-11-2022 End: 01-11-2023 LIPID PANEL, NONFASTING LIPID PANEL, NONFASTING Lab Routine Encounter for lipid screening for cardiovascular disease Expected: 11/11/2022, Expires: 01/11/2023 [facility] Work Phone: Comment on above: Expected: 11/11/2022, Expires: 3 Start: 11-11-2022 End: 01-11-2023 Prostate specific Ag [Mass/volume] in Serum or Plasma PSA/PROSTSPECAG DIAG Lab Routine Prostate disorder Expected: 11/11/2022, Expires: 01/11/2023 [facility] Work Phone: Comment on above: Expected: 11/11/2022, Expires: 3 Start: 11-11-2022 End: 01-11-2023 Urinalysis complete panel - Urine URINALYSIS, WITH MICROSCOPIC Lab Routine Medication management NSAID long-term use Expected: 11/11/2022, Expires: 01/11/2023 [facility] Work Phone: Comment on above: Expected: 11/11/2022, Expires: 3 Start: 09-18-2022 ADVANCE DIRECTIVE DISCUSSION ADVANCE DIRECTIVE DISCUSSION [facility] Start: 09-18-2022 DEPRESSION ASSESSMENT DEPRESSION ASSESSMENT [facility] Start: 05-19-2022 Influenza vaccination [facility] Start: 01-18-2022 End: 03-20-2022 Basic metabolic 2000 panel - Serum or Plasma BASIC METABOLIC PNL Lab Routine Encounter for screening for diabetes mellitus Medication management NSAID long-term use Expected: 01/18/2022, Expires: 03/20/2022 [facility] Work Phone: Comment on above: Expected: 01/18/2022, Expires: 2 Start: 01-18-2022 End: 03-20-2022 CBC W Auto Differential panel - Blood CBC + DIFF Lab Routine Medication management NSAID long-term use Expected: 01/18/2022, Expires: 03/20/2022 [facility] Work Phone: Comment on above: Expected: 01/18/2022, Expires: 2 Start: 01-18-2022 End: 03-20-2022 LIPID PANEL, NONFASTING LIPID PANEL, NONFASTING Lab Routine Encounter for screening for diabetes mellitus Encounter for lipid screening for cardiovascular disease Expected: 01/18/2022, Expires: 03/20/2022 [facility] Work Phone: Comment on above: Expected: 01/18/2022, Expires: 2 Start: 01-18-2022 End: 03-20-2022 Prostate specific Ag [Mass/volume] in Serum or Plasma PSA/PROSTSPECAG DIAG Lab Routine Family history of prostate cancer Prostate disorder Expected: 01/18/2022, Expires: 03/20/2022 [facility] Work Phone: Comment on above: Expected: 01/18/2022, Expires: 2 Start: 01-18-2022 End: 03-20-2022 Urinalysis complete panel - Urine URINALYSIS, WITH MICROSCOPIC Lab Routine Medication management NSAID long-term use Expected: 01/18/2022, Expires: 03/20/2022 [facility] Work Phone: Comment on above: Expected: 01/18/2022, Expires: 2 Start: 11-19-2021 COVID-19 VACCINE (3 - Booster for Elida series) COVID-19 VACCINE (3 - Booster for Elida series) [facility] Start: 09-18-2021 ADVANCE DIRECTIVE DISCUSSION ADVANCE DIRECTIVE DISCUSSION [facility] Start: 09-16-2021 COVID-19 VACCINE (3 - Booster for Elida series) COVID-19 VACCINE (3 - Booster for Elida series) [facility] Start: 09-16-2021 COVID-19 VACCINE (3 - Elida risk series) COVID-19 VACCINE (3 - Elida risk series) [facility] Start: 07-04-2020 Adult depression screening assessment DEPRESSION SCREENING [facility] Start: 05-13-2020 Urine microalbumin profile DTAP,TDAP,TD (2 - Td or Tdap) [facility] Start: 07-11-2013 SHINGRIX VACCINE (1 of 2) SHINGRIX VACCINE (1 of 2) [facility] Start: 07-11-2013 SHINGRIX VACCINE (2 of 3) SHINGRIX VACCINE (2 of 3) [facility] Start: 2012 RSV Vaccine (1 - 1-dose 60+ series) RSV Vaccine (1 - 1-dose 60+ series) [facility] Start: 2012 RSV Vaccine (1 - Risk 60-74 years 1-dose series) RSV Vaccine (1 - Risk 60-74 years 1-dose series) [facility] Start: 05-21-2008 Screening for malignant neoplasm of colon Sigmoidoscopy [facility] Start: 05-21-2008 SIGMOIDOSCOPY SIGMOIDOSCOPY [facility] Start: 05-02-2007 FECAL OCCULT BLOOD FECAL OCCULT BLOOD [facility] Start: 05-02-2007 Screening for malignant neoplasm of colon Fecal Occult Blood [facility] Start: 1997 COLOGUARD (FIT-DNA) COLOGUARD (FIT-DNA) [facility] Start: [address] COLONOGRAPHY [facility] Start: 1997 Screening for malignant neoplasm of colon [facility] Start: 1970 Anxiety Screening Anxiety Screening [facility] Start: 1970 HEPATITIS C SCREENING HEPATITIS C SCREENING [facility] Start: 1957 COVID-19 VACCINE (1) COVID-19 VACCINE (1) [facility] End: 11-05-2024 Basic metabolic 2000 panel - Serum or Plasma BASIC METABOLIC PNL Lab STAT 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) Once per week for 52 Occurrences starting 11/07/2023 until 11/05/2024 [facility] Work Phone: Comment on above: Once per week for 52 Occurrences startin g 11/07/2023 until 11/05/2024 End: 04-24-2024 [id number] [Mass/volume] in Serum or Plasma B2 MICROGLOBULIN B Lab Routine 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) Once per month for 12 Occurrences starting 04/25/2023 until 04/24/2024 [facility] Work Phone: Comment on above: Once per month for 12 Occurrences starti ng 04/25/2023 until 04/24/2024 Bilirubin measuremen t, urine [facility] End: 04-24-2024 CBC W Auto Differential panel - Blood CBC + DIFF Lab STAT 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) Once per week for 52 Occurrences starting 04/25/2023 until 04/24/2024 [facility] Work Phone: Comment on above: Once per week for 52 Occurrences startin g 04/25/2023 until 04/24/2024 End: 04-24-2024 Comprehensive metabolic 2000 panel - Serum or Plasma COMP METABOLIC PANEL Lab STAT 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) Once per month for 12 Occurrences starting 04/25/2023 until 04/24/2024 [facility] Work Phone: Comment on above: Once per month for 12 Occurrences starti ng 04/25/2023 until 04/24/2024 End: 05-01-2024 Comprehensive metabolic 2000 panel - Serum or Plasma COMP METABOLIC PANEL Lab Routine SOB (shortness of breath) Acute on chronic heart failure with preserved ejection fraction (HFpEF) (HCC) Every other week for 5 Occurrences starting 05/02/2023 until 05/01/2024 [facility] Work Phone: Comment on above: Every other week for 5 Occurrences start ing 05/02/2023 until 05/01/2024 End: 01-04-2025 Comprehensive metabolic 2000 panel - Serum or Plasma COMPREHENSIVE METABOLIC PANEL Lab STAT 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) Every 3 weeks for 18 Occurrences starting 01/07/2024 until 01/04/2025 [facility] Work Phone: Comment on above: Every 3 weeks for 18 Occurrences startin g 01/07/2024 until 01/04/2025 End: 05-05-2024 Ct abdomen & pelvis w/o contrast material CT ABD/PEL WO IVCON Radiology Routine [place] macroglobulinemia (HCC) 1 Occurrences starting 04/06/2023 until 05/05/2024 [facility] Work Phone: Comment on above: 1 Occurrences starting 04/06/2023 until 05/05/2024 End: 04-21-2024 Ct thorax w/o contrast material CT CHEST WO IVCON Radiology Routine Unintended weight loss Fatigue, unspecified type Decreased stamina SOB (shortness of breath) Lack of appetite 1 Occurrences starting 03/23/2023 until 04/21/2024 [facility] Work Phone: Comment on above: 1 Occurrences starting 03/23/2023 until 04/21/2024 End: 04-27-2024 ECG COMPLETE ECG COMPLETE ECG Routine Acute on chronic heart failure with preserved ejection fraction (HFpEF) (HCC) 1 Occurrences starting 04/27/2023 until 04/27/2024 [facility] Work Phone: Comment on above: 1 Occurrences starting 04/27/2023 until 04/27/2024 End: 07-31-2024 ECG COMPLETE ECG COMPLETE ECG Routine NICM (nonischemic cardiomyopathy) (HCC) Chronic heart failure with preserved ejection fraction (HFpEF) (HCC) 1 Occurrences starting 07/31/2023 until 07/31/2024 [facility] Work Phone: Comment on above: 1 Occurrences starting 07/31/2023 until 07/31/2024 End: 04-09-2025 ECG COMPLETE ECG COMPLETE ECG Routine AL amyloidosis (HCC) Chronic heart failure with preserved ejection fraction (HFpEF) (HCC) 1 Occurrences starting 04/09/2024 until 04/09/2025 [facility] Comment on above: 1 Occurrences starting 04/09/2024 until 04/09/2025 End: 01-21-2026 ECG COMPLETE ECG COMPLETE ECG Routine Cardiac amyloidosis (HCC) Chronic diastolic congestive heart failure (HCC) 1 Occurrences starting 01/21/2025 until 01/21/2026 [facility] Comment on above: 1 Occurrences starting 01/21/2025 until 01/21/2026 End: 05-02-2024 Echocardiography ECHO Cardiology Routine SOB (shortness of breath) Acute on chronic heart failure with preserved ejection fraction (HFpEF) (HCC) 1 Occurrences starting 05/02/2023 until 05/02/2024 [facility] Work Phone: Comment on above: 1 Occurrences starting 05/02/2023 until 05/02/2024 End: 07-31-2024 Echocardiography ECHO Cardiology Routine NICM (nonischemic cardiomyopathy) (HCC) Chronic heart failure with preserved ejection fraction (HFpEF) (HCC) 1 Occurrences starting 07/31/2023 until 07/31/2024 [facility] Work Phone: Comment on above: 1 Occurrences starting 07/31/2023 until 07/31/2024 End: 03-18-2026 Echocardiography ECHO Cardiology Routine Cardiac amyloidosis (HCC) 1 Occurrences starting 12/03/2024 until 12/03/2025 [facility] Work Phone: Comment on above: 1 Occurrences starting 12/03/2024 until 12/03/2025 Hemoglobin [Presence ] in Urine [facility] IR DIALYSIS APHERESI S CATHETER PLACEMENT IR DIALYSIS APHERESIS CATHETER PLACEMENT Radiology Routine CKD (chronic kidney disease), stage V (HCC) Ordered: 12/05/2023 [facility] Work Phone: Comment on above: Ordered: 12/05/2023 End: 04-24-2024 KAPPA/EMERY,FREE,SER KAPPA/EMERY,FREE,SER Lab Routine 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) Once per month for 12 Occurrences starting 04/25/2023 until 04/24/2024 [facility] Work Phone: Comment on above: Once per month for 12 Occurrences starti ng 04/25/2023 until 04/24/2024 End: 04-24-2024 Lactate dehydrogenase [Enzymatic activity/volume] in Serum or Plasma LD LACTATE DEHYDRO Lab Routine 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) Once per month for 12 Occurrences starting 04/25/2023 until 04/24/2024 [facility] Work Phone: Comment on above: Once per month for 12 Occurrences starti ng 04/25/2023 until 04/24/2024 End: 08-20-2024 Lactate dehydrogenase [Enzymatic activity/volume] in Serum or Plasma LD LACTATE DEHYDRO Lab STAT 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AL amyloidosis (HCC) Daily for 25 Occurrences starting 08/21/2023 until 08/20/2024 [facility] Work Phone: Comment on above: Daily for 25 Occurrences starting 2022 until 08/20/2024 Measurement of keton es in urine using dipstick [facility] Microscopic urinalysis [facility] MONOCLONAL PROT 24 U R W/INTERP MONOCLONAL PROT 24 UR W/INTERP Lab Routine Monoclonal (M) protein disease, multiple 'M' protein Ordered: 04/05/2023 [facility] Work Phone: Comment on above: Ordered: 04/05/2023 End: 04-24-2024 MONOCLONAL PROTEIN, SERUM (BLOOD) MONOCLONAL PROTEIN, SERUM (BLOOD) Lab Routine 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) Once per month for 12 Occurrences starting 04/25/2023 until 04/24/2024 [facility] Work Phone: Comment on above: Once per month for 12 Occurrences starti ng 04/25/2023 until 04/24/2024 End: 05-01-2024 Natriuretic peptide.B prohormone N-Terminal [Mass/volume] in Serum or Plasma NT PRO BNP Lab Routine SOB (shortness of breath) Acute on chronic heart failure with preserved ejection fraction (HFpEF) (HCC) Every other week for 5 Occurrences starting 05/02/2023 until 05/01/2024, 1 completed [facility] Work Phone: Comment on above: Every other week for 5 Occurrences start ing 05/02/2023 until 05/01/2024, 1 completed NM CARDIAC PERF STRESS/PHARM NM CARDIAC PERF STRESS/PHARM Radiology STAT Decreased stamina Elevated troponin level SOB (shortness of breath) Nonspecific ST-T wave electrocardiographic changes Ordered: 03/23/2023 [facility] Work Phone: Comment on above: Ordered: 03/23/2023 Patient Education [facility] Work Phone: Patient referral [facility] Work Phone: pH of Urine [facility] End: 08-20-2024 Phosphate [Mass/volume] in Serum or Plasma PHOSPHORUS INORGANIC Lab STAT 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AL amyloidosis (HCC) Daily for 25 Occurrences starting 08/21/2023 until 08/20/2024 [facility] Work Phone: Comment on above: Daily for 25 Occurrences starting 2022 until 08/20/2024 PROT ELEC UR 24HR W/ M SPIKE (P) PROT ELEC UR 24HR W/M SPIKE (P) Lab Routine Monoclonal (M) protein disease, multiple 'M' protein Ordered: 04/05/2023 [facility] Work Phone: Comment on above: Ordered: 04/05/2023 PROT ELEC UR 24HR W/ M SPIKE AND INTERP PROT ELEC UR 24HR W/M SPIKE AND INTERP Lab Routine Monoclonal (M) protein disease, multiple 'M' protein Ordered: 04/05/2023 [facility] Work Phone: Comment on above: Ordered: 04/05/2023 Protein [Mass/time] in 24 hour Urine PROTEIN 24 HR URINE Lab Routine Monoclonal (M) protein disease, multiple 'M' protein Ordered: 04/05/2023 [facility] Work Phone: Comment on above: Ordered: 04/05/2023 End: 04-24-2024 PROTEIN ELECTROPHORESIS SERUM W/INTERP PROTEIN ELECTROPHORESIS SERUM W/INTERP Lab Routine 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) Once per month for 12 Occurrences starting 04/25/2023 until 04/24/2024 [facility] Work Phone: Comment on above: Once per month for 12 Occurrences starti ng 04/25/2023 until 04/24/2024 End: 05-04-2024 Radiologic examination osseous survey compl XR BONE SURVEY ROUTINE Radiology Routine Monoclonal (M) protein disease, multiple 'M' protein 1 Occurrences starting 04/05/2023 until 05/04/2024 [facility] Work Phone: Comment on above: 1 Occurrences starting 04/05/2023 until 05/04/2024 Specific gravity of Urine [facility] End: 04-21-2024 SPIROMETRY - BASELINE AND POST DILATOR SPIROMETRY - BASELINE AND POST DILATOR PFT Routine SOB (shortness of breath) 1 Occurrences starting 03/23/2023 until 04/21/2024 [facility] Work Phone: Comment on above: 1 Occurrences starting 03/23/2023 until 04/21/2024 End: 08-20-2024 Urate [Mass/volume] in Serum or Plasma URIC ACID BLOOD Lab STAT 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AL amyloidosis (HCC) Daily for 25 Occurrences starting 08/21/2023 until 08/20/2024 [facility] Work Phone: Comment on above: Daily for 25 Occurrences starting 2022 until 08/20/2024 Urinalysis, blood, qualitative [facility] Urine dipstick for glucose [facility] Urine dipstick for leukocyte esterase [facility] Urine dipstick for nitrite [facility] Urine dipstick for protein [facility] Urine examination [facility] Urine microscopy: epithelial cells [facility] Urine Microscopy: wh ite cells [facility] Urobilinogen [Presen ce] in Urine [facility] End: 04-21-2024 US ABDOMEN COMPLETE US ABDOMEN COMPLETE Radiology Routine Unintended weight loss Fatigue, unspecified type Decreased stamina Lack of appetite 1 Occurrences starting 03/23/2023 until 04/21/2024 [facility] Work Phone: Comment on above: 1 Occurrences starting 03/23/2023 until 04/21/2024 End: 01-03-2025 XR Chest Single view XR CHEST 1V FRONTAL Radiology Routine CKD (chronic kidney disease), stage V (HCC) 1 Occurrences starting 12/05/2023 until 01/03/2025 [facility] Work Phone: Comment on above: 1 Occurrences starting 12/05/2023 until 01/03/2025 XR Chest Single view XR CHEST 1V FRONTAL Radiology Routine CKD (chronic kidney disease), stage V (HCC) 12/07/2023 11:36 AM EDT [facility] Work Phone: [facility] Immunizations Immunization Date Immunization Notes Care Provider [facility] 02-04-2025 COVID-19 vaccine, ag e 12+ yr (PFIZER-BIONTECH COMIRNATY) Jose Hugo DO Work Phone: [facility] 08-06-2024 COVID-19 vaccine, ag e 12+ yr (PFIZER-BIONTECH COMIRNATY) Jose Miguel Herbert MD Work Phone: [facility] 07-03-2024 influenza, high dose seasonal, preservative-free Jose Miguel Herbert MD Work Phone: [facility] 07-03-2024 influenza virus vacc ine, unspecified formulation Jose Hugo DO Work Phone: [facility] 12-08-2023 COVID-19 vaccine, ag e 12+ yr, season (PFIZER-BIONTECH) Ks Nurse Work Phone: [facility] 08-09-2023 influenza (aIIV4) vaccine, age 65+ yr, quadrivalent, PF (FLUAD QUAD) Treatment Wstr Work Phone: [facility] 08-09-2023 zoster vaccine recombinant Treatment Wstr Work Phone: [facility] 08-09-2023 influenza virus vacc ine, unspecified formulation Oanh Jim APRN.BOOSTER ASSEMBLER Work Phone: [facility] 03-08-2023 zoster vaccine recombinant Jose Miguel Herbert MD Work Phone: [facility] 02-28-2023 tetanus toxoid, redu demetrius diphtheria toxoid, and acellular pertussis vaccine, adsorbed Jose Miguel Herbert MD Work Phone: [facility] 07-09-2020 influenza, high-dose , quadrivalent vaccine (FLUZONE HIGH DOSE QUADRIVALENT) Jose Miguel Herbert MD Work Phone: [facility] 07-09-2020 influenza virus vacc ine, unspecified formulation Jose Hugo DO Work Phone: [facility] 07-04-2019 influenza, high dose seasonal, preservative-free Jose Miguel Herbert MD Work Phone: [facility] 07-04-2019 pneumococcal polysaccharide vaccine, 23 valent Jose Miguel Herbert MD Work Phone: [facility] 06-28-2018 pneumococcal conjuga te vaccine, 13 valent Jose Miguel Herbert MD Work Phone: [facility] 05-16-2013 zoster vaccine, live Jose Miguel Herbert MD Work Phone: [facility] Work Phone: 05-13-2010 tetanus toxoid, redu demetrius diphtheria toxoid, and acellular pertussis vaccine, adsorbed Jose Miguel Herbert MD Work Phone: [facility] Work Phone: Payers Date Payer Category Payer Self-pay [id number] 2019 Private Health Insurance MMO MED ICARE SUPPLEMENT [id number] 2019 Unknown MMO MMO MEDICARE SUPPLEMENT [id number] 2019-Present [phone] [place] [address] Indemnity [id number] 2019 Unknown MMO MMO MEDICARE SUPPLEMENT [id number] 2019-Present [phone] [address] [place] [address] Indemnity [id number] 2019 Unknown [id number] 2017 Medicare MEDICARE MEDICAR E A AND B [id number] 2017-Present [phone] [address] [address] [place] [address] Medicare [id number] 2017 Medicare [id number] 2017 Medicare [id number] Unknown [id number] Unknown [id number] Unknown [id number] 462 Unknown [id number] 462 Unknown [id number] 462 Unknown [id number] 462 Unknown [id number]. 462 Unknown [id number] 462 Unknown [id number] 462 Unknown [id number] 462 Unknown [id number]. 462 Unknown [id number] 462 Unknown [id number] 462 Unknown [id number] 462 Unknown [id number] 462 Social History Date Type Detail Facility Start: 05-16-2013 End: 05-01-2025 Tobacco smoking status NHIS Never smoked tobacco [facility] Start: 01-18-2022 End: 05-20-2025 Alcohol intake Current non-drinker of alcohol (finding) [facility] Start: 1950 Sex Assigned At Not on file C [facility] Start: 01-17-2022 End: 01-27-2022 Exposure to SARS-CoV-2 (event) Not sure [facility] Start: 05-16-2013 Tobacco use and exposure Smokeless tobacco non-user [facility] Work Phone: Start: 03-17-2023 End: 12-18-2023 Tobacco smoking status WVIS Unknown if ever smoked [facility] Start: 1950 Sex Assigned At Male [facility] Start: 03-23-2023 End: 08-28-2023 History of Social function [facility] Work Phone: Start: 03-23-2023 End: 08-28-2023 Tobacco use panel [facility] Work Phone: Start: 08-19-2012 Adult Depression Screening Assessment 0 [facility] Work Phone: (I/We) worried wheth er (my/our) food would run out before (I/we) got money to buy more. Never true [facility] Work Phone: In the past 12 month s, was there a time when you were not able to pay the mortgage or rent on time? No [facility] Work Phone: How often to you hav e a drink containing alcohol? Never [facility] Start: 01-14-2025 Sex Male (finding) [facility] Medical Equipment Procedure Code Equipment Code Equipment Origin al Text Equipment Identifier Dates Creation, AV fistula FEM-POP ARTERY 21-29CM FDA Start: 01-14-2025 Creation, AV fistula Ligation clip, metallic [id number] FDA Start: 01-14-2025 Creation, AV fistula Ligation clip, metallic [id number] FDA Start: 01-14-2025 Creation, AV fistula FEM-POP ARTERY 21-29CM FDA Start: 01-14-2025 Creation, AV fistula FEM-POP ARTERY 21-29CM FDA Start: 01-14-2025 Creation, AV fistula FEM-POP ARTERY 21-29CM FDA Start: 01-14-2025 Catheter Glidepa th 14.5fr Straight Polyurethane 24cm 19cm Hemodialysis Kit - [id number] Start: 12-11-2023 Goals Date Patient Goal Desired Activity /State Personal health goal Functional Status Date Assessment Result Facility 09-19-2023 Are you deaf, or do you have serious difficulty hearing No 09/19/2023 2:27 PM Carmel Santos, COLT No [facility] 09-19-2023 Are you blind, or do you have serious difficulty seeing, even when wearing glasses No 09/19/2023 2:27 PM Carmel Santos, COLT No [facility] 09-19-2023 Do you have serious difficulty walking or climbing stairs No 09/19/2023 2:27 PM Carmel Santos, COLT No [facility] 09-19-2023 Do you have difficul ty dressing or bathing No 09/19/2023 2:27 PM Carmel Santos, COLT No [facility] 09-19-2023 Because of a physica l, mental, or emotional condition, do you have difficulty doing errands alone such as visiting a physician's office or shopping No 09/19/2023 2:27 PM Carmel Santos RN No [facility] 03-18-2023 Functional status Ambulates;Up ad caryl [facility] Work Phone: Mental Status Date Assessment Result Facility 01-14-2025 Cognitive function Voice/Name [facility] Work Phone: 12-18-2023 Cognitive function Level Of Cons ciousness Awake;Alert;Appropriate;Fol lows Commands [facility] Work Phone: 12-15-2023 Cognitive function Level Of Cons ciousness Awake;Alert;Appropriate;Fol lows Commands [facility] Work Phone: 09-19-2023 Because of a physica l, mental, or emotional condition, do you have serious difficulty concentrating, remembering, or making decisions No 09/19/2023 2:27 PM Carmel Santos RN No [facility] 03-18-2023 Cognitive function Voice/Name [facility] Work Phone: 03-17-2023 Cognitive function Level Of Cons ciousness Awake;Alert;Appropriate;Fol lows Commands [facility] Work Phone: Clinical Notes 01-18-2022 to 07-29-2025 Jose Hugo DO - 05/20/2025 11:23 AM Steffi Pascal MA - 05/15/2025 2:43 PM June Abreu MA - 05/02/2025 1:14 PM Steffi Pascal MA - 05/01/2025 11:04 AM EDT Note Date & Type Note Facility 07-29-2025 Note [facility] 07-21-2025 Note [facility] 06-23-2025 Note [facility] 05-20-2025 Note [facility] 05-20-2025 History of Present illness Narrative Diagnosis: 1) IgM kappa amyloidosis. HPI: The patient is a 74 yo male with a PMH significant for BPH. Had labs 03/17/2023 for upcoming annual appointment with Dr. Herbert. Per Dr. Herbert's recent eveluation: "Patient ws recently sent to [facility] due to SINDI. BUN was 49 [...] he felt like he was swimming in [place]. No shortness of breath. Denied chest heaviness, tightness or palpitations." Echo at [facility]: Interpretation Summary Normal LV size. Moderate concentric left ventricular hypertrophy. Left ventricular systolic function is normal. The estimated ejection fraction is 65 %. Stage 1 diastolic dysfunction. Pulmonary artery systolic pressure is 28 mmHg. Contrast injection was performed. Hospitalized at [facility] 08/25/2023 through 09/19/2023 for nonischemic heart [...] for ongoing oncologic management. Interim history: Had catheter removed and graft has been working well. No symptoms of orthostasis. Takes midodrine if SBP <90 mmHg. Good appetite. Urinating more. Clear, colorless urine. Continues to tolerate zanubrutinib very well with no subjective side effect--verified. Can still climb 3 flights of stairs to his apartment and can no carry about 3 bags groceries up with him. Social History Tobacco Use Smoking status: Never [...] Normal mood. PHYSICAL EXAM: Vitals: Blood pressure 118/70, pulse 71, temperature 36.2 C (97.1 F), temperature source Temporal, weight 52.2 kg (115 lb), SpO2 100%. Well-appearing and in no acute distress. EYES: Sclerae are anicteric bilaterally. LYMPHATIC: There is no palpable cervical or supraclavicular adenopathy. CARDIOVASCULAR: Rhythm is regular. Left arm graft. ABDOMEN: The abdomen is nondistended. Extremities: No [...] mutation positive. Left kidney biopsy 04/14/2023: A. 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 CARDIOLOGY: Echocardiogram 03/17/2023 done at [facility] demonstrated normal LV size with moderate concentric left ventricular hypertrophy and left ventricular systolic function normal with estimated ejection fraction 65%. Stage I diastolic dysfunction was observed. Pulmonary artery systolic pressure estimated at 28 mmHg. Echocardiogram same day demonstrated normal sinus rhythm with incomplete right bundle branch block ST and T wave abnormality, consider lateral ischemia, prolonged QT. Exercise stress test at [facility] 04/19/2023: Impression: 1. Inability to reach [...] Low-level kappa light chain but but not monoclonal protein on immunofixation. Symptomatically he has significantly improved from a cardiac standpoint. He continues to tolerate zanubrutinib symptomatically very well. -Plan bone marrow biopsy if we start seeing the increased trend in kappa light chain, cardiac symptoms develop or reappearance of serum monoclonal protein, otherwise continue zanubrutinib. Plan: -Continue zanubrutinib. -CBC monthly. -Repeat bone marrow biopsy if evidence increasing trend monoclonal protein or kappa light chain. -Office visit in 3 months. -Follow up with Dr. Reyes at [facility] as scheduled. Portions of this documentation were copied and pasted from my previous office visit note dated 02/25/2025 in order to provide a cohesive continuity of the history. The note has been reviewed and edited and updated as necessary. Jose Hugo DO documented in this encounter [facility] 05-16-2025 Note [facility] 05-15-2025 Note [facility] 05-15-2025 History of Present illness Narrative [facility] Scan on 05/15/2025 11:46 AM by ProviderLázaro PA-C: Consultation - Vascular Medicine/Vascular Surgery Scan on 05/01/2025 2:02 PM by ProviderLázaro PA-C: removal of IJ tunnel dialysis cath documented in this encounter [facility] 05-02-2025 Note HNO ID: [id number] Author: JUNE SIMMS MA Service: ? Author Type: Pharmacy Graduate Intern Type: Progress Notes Filed: 05/15/2025 14:44 Note Text: Scan on 05/01/2025 2:02 PM by Provider, Lázaro PAJabariC: removal of IJ tunnel dialysis cath [facility] 05-01-2025 Note [facility] 05-01-2025 History of Present illness Narrative Vascular H&P, Dr. Brody. Steffi Gonzalez MA Scan on 05/01/2025 8:35 AM by Provider, Lázaro PA-C: Dr. Brody documented in this encounter [facility] 05-01-2025 History and physi macario note Note Date/Time May 01, 2025 8:08am [facility] Medical Records Department [address] [place] [address] History & Physical Exam 05/01/25 0806 MR#: [id number] Acct: [id number] Name: EDGAR HENDERSON Rep #:[id number] : 1950 74 From: Alvarado Brody MD PCP: Dr. Jose Miguel Herbert MD [facility] Location: [facility] HPI - General HPI Narrative EDGAR HENDERSON, is a 74 M who presents with ESRD, functioning left arm AVG and right IJ catheter no longer in use. [facility] Medical History Wears glasses Cancer Depression Bruising [...] 200 mg capsule 200 mg PO TID 09/05/2405/01 History atorvastatin 20 mg tablet 20 mg PO QDAY 09/05/24 Unkno wn History calcium acetate 667 mg tablet 667 mg PO TID 09/05/24 U nknown History finasteride 5 mg tablet 5 mg PO QDAY 09/05/24 History zanubrutinib 80 mg capsule 160 mg PO BID 09/05/24 Unkn own History (Brukinsa) oxycodone 5 mg tablet 5 mg PO Q8H PRN pain 2 days #6 tabs 01/14/25 Unknown Rx midodrine 2.5 mg tablet 2.5 mg PO ONCE PRN low BP Unknown History Allergy/AdvReac Type Severity Reaction Status Date / Time No Known Allergies Allergy Verified 02/13/25 10:20 Family History Father Heart disease Pacemaker Cancer [...] lymphadenopathy Vital Signs Vital Signs Vital Signs: Weight Weight: 120 lb Body Mass Index (BMI) 18.2 Physical Exam Const alert, oriented x3, no [...] noted and no wounds Neuro oriented x3, CN's II-XII intact bilaterally, no focal motor deficits and no sensory deficits noted Psych thought process normal, cooperative, affect normal, speech normal and activity/motor behavior normal Assessment & Plan Assessment/Plan (1) Vascular dialysis catheter in place: PLAN: -remove catheter 05/01/25 0808 <Electronically signed by Alvarado Brody MD> Cosigner Signature (if applicable): CC: Dr. Alvarado Brody MD; Dr. Jose Miguel Herbert MD~ Signed [facility] Work Phone: 1(412) 373-407708-14-2025 History and physical note [facility] Medical Records Department [address] [place] [address] History & Physical Exam 05/01/25 0806 MR#: [id number] Acct: [id number] Name: EDGAR HENDERSON Rep #:[id number] : 1950 74 From: Alvarado Brody MD PCP: Dr. Jose Miguel Herbert MD Status:REG [facility] HPI - General HPI Narrative EDGAR HENDERSON, is a 74 M who presents with ESRD, functioning left arm AVG and right IJ catheter no longer in use. [facility] Medical History Wears glasses Cancer Depression [...] 200 mg capsule 200 mg PO TID 09/05/2405/01 History atorvastatin 20 mg tablet 20 mg PO QDAY 09/05/24 Unkno wn History calcium acetate 667 mg tablet 667 mg PO TID 09/05/24 U nknown History finasteride 5 mg tablet 5 mg PO QDAY 09/05/24 History zanubrutinib 80 mg capsule 160 mg PO BID 09/05/24 Unkn own History (Brukinsa) oxycodone 5 mg tablet 5 mg PO Q8H PRN pain 2 days #6 tabs 01/14/25 Unknown Rx midodrine 2.5 mg tablet 2.5 mg PO ONCE PRN low BP Unknown History Allergy/AdvReac Type Severity Reaction Status Date / Time No Known Allergies Allergy Verified 02/13/25 10:20 Family History Father Heart disease Pacemaker Cancer [...] lymphadenopathy Vital Signs Vital Signs Vital Signs: Weight Weight: 120 lb Body Mass Index (BMI) 18.2 Physical Exam Const alert, oriented x3, no [...] noted and no wounds Neuro oriented x3, CN's II-XII intact bilaterally, no focal motor deficits and no sensory deficits noted Psych thought process normal, cooperative, affect normal, speech normal and activity/motor behavior normal Assessment & Plan Assessment/Plan (1) Vascular dialysis catheter in place: PLAN: -remove catheter 05/01/25807 Cosigner Signature (if applicable): CC: Dr. Alvarado Brody MD; Dr. Jose Miguel Herbert MD~ Signed [facility]08-14-2025 [facility] Medical Records Department [address] [place] [address] History Physical Exam 05/01/25 08 MR#: [id number] Acct: [id number] Name: EDGAR HENDERSON Rep #: [id number] : 1950 74 From: Alvarado Brody MD PCP: Dr. Jose Miguel Herbert MD Status:REG [facility] Location: [facility] HPI - General HPI Narrative EDGAR HENDERSON, is a 74 M who presents with ESRD, functioning left arm AVG and right IJ catheter no longer in use. [facility] Medical History Wears glasses Cancer Depression Bruising [...] mg capsule 200 mg PO TID 09/05/24 05/01/25 Hi story atorvastatin 20 mg tablet 20 mg PO QDAY 09/05/24 Unknown His tory calcium acetate 667 mg tablet 667 mg PO TID 09/05/24 Unknown His tory finasteride 5 mg tablet 5 mg PO QDAY 09/05/24 05/01/25 His tory zanubrutinib 80 mg capsule 160 mg PO BID 09/05/24 Unknown His tory (Brukinsa) oxycodone 5 mg tablet 5 mg PO Q8H PRN pain 2 days #6 tab s 01/14/25 Unknown Rx midodrine 2.5 mg tablet 2.5 mg PO ONCE PRN low BP 01/28/25 Unknown History Allergy/AdvReac Type Severity Reaction Status Date / Time No Known Allergies Allergy Verified 02/13/25 10:20 Family History Father Heart disease Pacemaker Cancer [...] lymphadenopathy Vital Signs Vital Signs Vital Signs: Weight Weight: 120 lb Body Mass Index (BMI) 18.2 Physical Exam Const alert, oriented x3, no [...] noted and no wounds Neuro oriented x3, CN's II-XII intact bilaterally, no focal motor deficits and no sensory deficits noted Psych thought process normal, cooperative, affect normal, speech normal and activity/motor behavior normal Assessment Plan Assessment/Plan (1) Vascular dialysis catheter in place: PLAN: -remove catheter 05/01/25 0808 Cosigner Signature (if applicable): CC: Dr. Alvarado Brody MD; Dr. Jose Miguel Tyler (more content not included)...[facility]07-29-2025 History of Present illness Narrative* Erin Montalvo - 04/15/2025 2:55 PM EDT [facility] Refill Assessment Medication(s): Brukinsa No [...] been reviewed prior to dispensing the medication. Miguel Syed PharmD, BCOP Clinical Pharmacist, Oncology [facility] P: , F: Pool: P [facility] Pool #: [id number] Chief Librarian Extension Department Assessment Patient confirmed: Yes Med/dose confirmed: Yes Supplies needed: No supplies needed Missed doses: No Estimated days supply on hand: (36 capsules (9DS)) Copay amount: 0 Copay form of payment: Credit card on file Payment confirmed: Yes Delivery method: FedEx Signature required: Required (, Medicaid, patient preference) Delivery address: [address] [place] [id number] Delivery date: 04/17/25 Questions or concerns for [...] facility-administered medications on file prior to visit. [facility] CLINICAL ASSESSMENT - HEMATOLOGY ONCOLOGY [...] unacceptable toxicity Erin Montalvo documented in this encounterProm[facility] Miscellaneous Notes* Telephone Encounter - Sarah Chavez LPN - 04/04/2025 7:35 AM EDT Prescription Refill Information The patient [...] 04, 2025 7:35 AM documented in this encounterProm[facility]ica [facility] Telephone encounter Note * Telephone Encounter - Sarah Chavez LPN - 04/04/2025 7:35 AM EDT Prescription Refill Information The patient [...] Chavez LPN April 04, 2025 7:35 AM [facility]06-27[facility] Note [facility]06-10-2025 History of Present illness Narrative* Jose Hugo DO - 02/25/2025 10:45 AM EDT Diagnosis: 1) IgM kappa amyloidosis. HPI: The patient is a 74 yo male with a PMH significant for BPH. Had labs 03/17/2023 for upcoming annual appointment with Dr. Herbert. Per Dr. Herbert's recent eveluation: "Patient ws recently sent to [facility] due to SINDI. BUN was 47 [...] he felt like he was swimming in [place]. No shortness of breath. Denied chest heaviness, tightness or palpitations." Echo at [facility]: Interpretation Summary Normal LV size. Moderate concentric left ventricular hypertrophy. Left ventricular systolic function is normal. The estimated ejection fraction is 65 %. Stage 1 diastolic dysfunction. Pulmonary artery systolic pressure is 28 mmHg. Contrast injection was performed. Hospitalized at [facility] 08/25/2023 through 09/19/2023 for nonischemic heart [...] stairs to his apartment. Appetite has been "good." No nausea. Bowels, "fine." Not short of breath with walking. No [...] mutation positive. Left kidney biopsy 04/14/2023: A. 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 CARDIOLOGY: Echocardiogram 03/17/2023 done at [facility] demonstrated normal LV size with moderate concentric left ventricular hypertrophy and left ventricular systolic function normal with estimated ejection fraction 65%. Stage I diastolic dysfunction was observed. Pulmonary artery systolic pressure estimated at 28 mmHg. Echocardiogram same day demonstrated normal sinus rhythm with incomplete right bundle branch block ST and T wave abnormality, consider lateral ischemia, prolonged QT. Exercise stress test at [facility] 04/19/2023: Impression: 1. Inability to reach [...] months. -Follow up with Dr. Reyes at [facility] as scheduled. Portions of this documentation were copied and pasted from my previous office visit note dated 12/03/2024 in order to provide a cohesive continuity of the history. The note has been reviewed and edited and updated as necessary. Jose Hugo DO documented in this encounterProm[facility]05-[facility] Evaluation note* Diagnosis Onset Date Resolution Status Admit Date Hemodialysis access, AV graft acute January 28, 2025 9:40am Hemodialysis access, AV graft acute February 13, 2025 10:22am Vascular dialysis catheter i n place acute May 01 6:46am [facility] Work Phone: [phone]) 362-329905-12-2025 [facility] Telephone encounter Note* Telephone Encounter - Krystal Kan LPN - 01/24/2025 1:12 PM EDT Phoned patient left detailed message with notes below from Dr Herbert on patient voicemail. [facility]05-09-2025 Miscellaneous Notes* Telephone Encounter - Krystal Kan LPN - 01/24/2025 1:12 PM EDT Phoned patient left detailed message with notes below from Dr Herbert on patient voicemail. * Telephone Encounter - Jose Miguel Herbert MD - 01/24/2025 12:19 PM EDT Let patient know he is not due for a repeat PSA until April. Insurance will only cover once a yearif no history of prostate cancer of elevated PSA and his is always very low. * Telephone Encounter - Katherine Quinonez RN - 01/24/2025 10:10 AM EDT Patient will be completing lipid panel lab that was ordered for him by Dr. Herbert. Patient asking if a PSA level could be added as well? Call pt with update. Katherine Quinonez RN documented in this encounterPromedica [facility]05-09-2025 Telephone encounter Note * Telephone Encounter - Jose Miguel Herbert MD - 01/24/2025 12:19 PM EDT Let patient know he is not due for a repeat PSA until April. Insurance will only cover once a yearif no history of prostate cancer of elevated PSA and his is always very low. [facility]05-09-2025 Telephone encounter Note* Telephone Encounter - Katherine Quinonez RN - 01/24/2025 10:10 AM EDT Patient will be completing lipid panel lab that was ordered for him by Dr. Herbert. Patient asking if a PSA level could be added as well? Call pt with update. Katherine Quinonez RN [facility]05-06-2025 [facility] History of Present illness Narrative* Chester Patel MD - 01/21/2025 1:51 PM EDT Images from the original note were not included. [facility] SECTION OF HEART FAILURE and CARDIAC TRANSPLANT MEDICINE OUTPATIENT VISIT DATE January 21, 2025 OUTPATIENT VISIT TYPE Established Patient PRIMARY CARE PHYSICIAN: Jose Miguel Herbert [address] [place] [address] CHIEF COMPLAINT: Amyloid consultation HISTORY OF PRESENT ILLNESS: 74 year old male with PMHx chronic HFpEF, [place] amyloid with cardiac and renal involvement ([place]; Dx with kidney biopsy), lymphoplasmacytic lymphoma, CKD 3-4 and BPH who is here for amyloid consultation referred by Sharon Hugo. The patient reports two recent syncopal episodes. The first occurred post- dialysis, which he attributes to excessive fluid removal [...] He was started on iHD 12/2023 via [facility] MWF for 3 hrs. Midodrine was started due to hypotension. Hestill makes urine, he is unsure of how much ("at night I get up to urinate multiple times"). Swelling has been much better since he [...] biopsy was done on 04/14/23 which showed [place] light chain amyloidosis extensively involving glomeruli, the [...] with concerns of cardiac involvement. He feels "extreme fatigue". Feels that his legs "are made of rubber" and they limit his ambulaiton.He feels shortness [...] with patient 01/27/2022 Discussed 01/2022 [place] amyloidosis ([facility]) 05/24/2023 Allergic rhinitis due to other allergen Anemia 03/23/2023 Benign prostatic hyperplasia with urinary obstruction 05/17/[address] 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 Hyperlipidemia, mixed 06/26/2023 Internal hemorrhoids without mention of complication [place]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 Living will on file 01/27/2022 DPA: Bari Betancur (assistant city attorney) 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 Medicare annual wellness [...] Arm) Pulse 70 Ht 171.5 cm (5' 7.5") Wt 55.3 kg (122 lb) SpO2 100% [...] WAVE ABNORMALITY ABNORMAL ECG Confirmed by MD MAXWELL QARAB ([id number]) on 10/11/2024 11:09:31 AM IMPRESSION: NYHA Functional [...] Kidney biopsy was done on 04/14/23 showed [place] light chain amyloidosis extensively involving glomeruli, the [...] by hypotension and renal function. 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 Chester Kwan MD [facility] Section Of Heart Failure and Cardiac Transplant Medicine Heart [facility]ascular [place] [facility] Desk J3-[address] [place] [address] documented in this encounterPromedica Defiance [facility]05-01-2025 NoteHNO ID: [id number] Author: GRICEL BRUNO LPN Service: ? Author Type: LICENSED NURSE Type: Progress Notes Filed: 01/16/2025 06:54 Note Text: Scan on 01/14/2025 6:00 PM by ProviderLázaro PA-C: Miscellaneous Procedures [facility]05-01-2025 History of Present illness Narrative* Gricel Bruno LPN - 01/16/2025 6:54 AM EDT Scan on 01/14/2025 6:00 PM by ProviderLázaro PA-C: Miscellaneous Procedures documented in this encounterPromedica [facility]iance [facility]04-29-2025 Consult note [facility] Medical Records Department [address] [place] [address] Anesthesia Postop Eval I 01/14/25 1638 MR#: [id number] Acct: [id number] Name: EDGAR HENDERSON Rep #:[id number] : 1950 74 From: Ashley Lee ROD BUSTER PCP: Dr. Jose Miguel Herbert MD Status:REG SDC Y Race: C Location: [place] [address] Anesthesia: Postop Eval I Current Vital Signs [...] Postop Eval 1 completed: Yes 01/14/25 1638 c ROD BUSTER> Date _ Ashley Lee ROD BUSTER Cosigner Signature: Date CC: ~ Signed [facility]04-29-2025 Consult note [facility] Medical Records Department [address] [place], [place] [address] [address] Anesthesia Postop Eval II 01/14/25 1647 MR#: [id number] Acct: [id number] Name: EDGAR HENDERSON Rep #:[id number] : 1950 74 From: Colleen azul ROD BUSTER PCP: Dr. Jose Miguel Herbert MD Status:REG [facility] Y Race: C Location: [place] [address] Anesthesia Postop Eval I Sum Postop Eval Completion status Anesthesia document: Postop Eval 1 completed: Yes Anesthesia Postop Eval I Summary Anesthesia Postop Eval I Summary: Anesthesia Postop Eval I: Assessment Summary Airway patent Yes 01/14/25 16:38 [email or web address] [email or web address] Spontaneous unlabored Yes 01/14/25 16:38 ROD [email or web address].LMIL respirations Mental status Awake 01/14/25 16:38 ROD [email or web address].LMIL nausea No 01/14/25 16:38 ROD [email or web address].LMIL Vomiting No 01/14/25 16:38 ROD [email or web address].LMIL Anesthesia Postop Eval I: Fluid Summary Crystalloid volume administer 400 01/14/25 16:38 ROD [email or web address].LMIL (ml) Colloids volume administered ( ml) Blood Product volume administered (ml) Total IV fluid infused 400 01/14/25 16:38 ROD [email or web address].LMIL Anesthesia Postop Eval I: Summary Notes Anesthesia Complication No 01/14/25 16:38 ROD [email or web address].LMIL Anesthesia Complication Comment: Post-operative progress note Anesthesia: Postop Eval II Evaluation Mental status: Awake and Calm Pain Level: 0 nausea: No Vomiting: No Complications Anesthesia Complication: No 01/14/25 1647 douglas ROD BUSTER> Date _ Colleen Iniguez ROD BUSTER Cosigner Signature: Date CC: ~ Signed [facility]04-29-2025 Consult note Author Ashley Lee [facility] Note Date/Time January 14, 2025 6:4 3pm [facility] Medical Records Department [address] [place] [address] Anesthesia Postop Eval I 01/14/25 1638 MR#: [id number] Acct: [id number] Name: EDGAR HENDERSON Rep #:[id number] : 1950 74 From: Ashley Lee ROD BUSTER PCP: Dr. Jose Miguel Herbert MD Status:REG SDC Y Race: C Location: [place] [address] Anesthesia: Postop Eval I Current Vital Signs [...] document: Postop Eval 1 completed: Yes 01/14/25 1748 <Electronically signed by Ashley suresh CRNA> Date _ Ashley Lee ROD BUSTER Cosigner Signature: Date CC: ~ Signed [facility] Work Phone: 1(318) 296-920804-29-2025 Discharge summary Author Alvarado Brody [facility] Note Date/Time January 14, 2025 4:1 0pm [facility] Medical Records Department [address] [place] [address] Instructions for Home/Discharge Instructions 01/14/25 1607 MR#: [id number] Acct: [id number] Name: EDGAR HENDERSON Rep #:[id number] : 1950 74 From: Alvarado Brody MD PCP: Dr. Jose Miguel Herbert MD Status:REG [facility] Discharge Instructions Diet Discharge Diet: No restrictions [...] Provider: Jose Miguel Herbert Instructions Print Language: [place] Discharge Orders/Prescriptions Prescriptions: New oxycodone 5 mg [...] Dr. Jose Miguel Herbert MD ~ Signed [facility] Work Phone: 1(583) 591-774504-29-2025 Procedure note [facility] Medical Records Department [address] [place] [address] Operative Report 01/14/25 1747 MR#: [id number] Acct: [id number] Name: EDGAR HENDERSON Rep #:[id number] : 1950 74 From: Alvarado Brody MD PCP: Dr. Jose Miguel Herbert MD [facility] Location: [place] [address] Operative Report (Standard) Operative Information Date of Procedure: 01/14/25 Pre-Operative Diagnosis: End-stage renal disease currently on dialysis Post-Operative Diagnosis: Same Surgery/Procedure Performed: Left upper arm AV graft placement with cadaver femoral-popliteal artery research manufacturing operator: Yes Children'S Author: Mary Rapp Tasks completed by first assistant manager: Opening, Closing, Opening & closing and Retracting [...] He had vein mapping which revealed minimal northway vessel options with his best northway vessel in his dominant right upper extremity. [...] as around 2 large bridging veins. A Gail tunneler was then used to tunnel through the subcutaneous tissue on the anterior aspect of the upper arm over the bicep muscle. The cadaver graft was thawed per teletypesetter operator's instructions and the patient heparinized allowed to circulate for 3 minutes. The brachial artery wasthen occluded with Vesseloops and longitudinal arteriotomy created with 11 b ladeextended with the [place] scissors. The graft was then anastomosed in hwy-en-jhygvxkxtcz with 5-0Prolene in a running fashion. After [...] palpable radial pulse Complications Complications: No 01/14/25 2315 Cosigner Signature (if applicable): CC: Dr. Alvarado Brody MD; Dr. Jose Miguel Herbert MD~ Signed [facility]04-29-2025 Discharge summary [facility] Medical Records Department [address] [place] [address] Instructions for Home/Discharge Instructions 01/14/25 1607 MR#: [id number] Acct: [id number] Name: EDGAR HENDERSON Rep #:[id number] : 1950 74 From: Alvarado Brody MD PCP: Dr. Jose Miguel Herbert MD Status:REG [facility] Discharge Instructions Diet Discharge Diet: No restrictions [...] Provider: Jose Miguel Herbert Instructions Print Language: [place]se Discharge Orders/Prescriptions Prescriptions: New oxycodone 5 mg [...] Dr. Jose Miguel Herbert MD ~ Signed [facility]04-29-2025 History and physical note Author Alvarado Brody [facility] Note Date/Time January 14, 2025 1:3 0pm [facility] Medical Records Department [address] [place] [address] History & Physical Exam 01/14/25 1326 MR#: [id number] Acct: [id number] Name: EDGAR HENDERSON Rep #:[id number] : 1950 74 From: Alvarado Brody MD PCP: Dr. Jose Miguel Herbert MD [facility] Location: [place] [address] HPI - General HPI Narrative EDGAR HENDERSON, is a 74 M who presents with ESRD currently on dialysis. He has only right arm basilic vein suitable for northway fistula and does not wish to risk adverse outcome in his dominant arm. He presents for left arm AV graft withcadaver. [facility] Medical History Wears glasses Cancer Depression Bruising [...] MD; Dr. Jose Miguel Herbert MD~ Signed [facility] Work Phone: 1(518) 411-307804-29-2025 NoteHNO ID: [id number] Author: GRICEL BRUNO LPN Service: ? Author Type: LICENSED NURSE Type: Progress Notes Filed: 01/14/2025 15:02 Note Text: Scan on 01/14/2025 1:36 PM by Provider, Lázaro, [facility] 01-14-2025 History of Present illness Narrative* Gricel Bruno LPN - 01/14/2025 3:02 PM EDT Scan on 01/14/2025 1:36 PM by Provider, KELBY Sesay documented in this encounterPromedica Defiance Regional Hospital04-29-2025 History and physical note [facility] Medical Records Department [address] [place] [address] History & Physical Exam 01/14/25 1326 MR#: [id number] Acct: [id number] Name: EDGAR HENDERSON Rep #:[id number] : 1950 74 From: Alvarado Brody MD PCP: Dr. Jose Miguel Herbert MD [facility] Location: [place] [address] HPI - General HPI Narrative EDGAR HENDERSON, is a 74 M who presents with ESRD currently on dialysis. He has only right arm basilic vein suitable for northway fistula and does not wish to risk adverse outcome in his dominant arm. Hepresents for left arm AV graft withcadaver. [facility] Medical History Wears glasses Cancer Depression Bruising [...] MD; Dr. Jose Miguel Herbert MD~ Signed [facility]04-29-2025 [facility] Medical Records Department [address] [place] [address] History Physical Exam 01/14/25 1326 MR#: [id number] Acct: [id number] Name: EDGAR HENDERSON Rep #: [id number] : 1950 74 From: Alvarado Brody MD PCP: Dr. Jose Miguel Herbert MD [facility] Location: [place] [address] HPI - General HPI Narrative EDGAR HENDERSON, is a 74 M who presents with ESRD currently on dialysis. He has only right arm basilic vein suitable for northway fistula and does not wish to risk adverse outcome in his dominant arm. He presents for left arm AV graft with cadaver. [facility] Medical History Wears glasses Cancer Depression Bruising [...] and no wounds N (more content not included)...[facility]04-29-2025 Consult note Author Jorge Alberto Chavez [facility] Note Date/Time January 14, 2025 10: 31am [facility] Medical Records Department [address] [place] [address] Pre-Anesthesia Evaluation 01/14/25 1021 MR#: [id number] Acct: [id number] Name: EDGAR HENDERSON Rep #:[id number] : 1950 74 From: Jorge Alberto Chavez MD PCP: Dr. Jose Miguel Herbert MD Status:REG SDC Y Race: C Location: [address] ASA Classification* ASA Classification ASA Classification: 3 [...] GRAFT CREATION Anesthesia History Anesthesia History - journeyman mechanic: Anesthesia History - journeyman mechanic Hx Hospitalization No 12/31/24 09:16 Any Problems [...] (Patient water at 12:30AM.) PONV PONV - journeyman mechanic: PONV - journeyman mechanic Female No 12/31/24 09:16 HX of Motion [...] 01/14/25 09:55 Respiratory Assessment Respiratory Assessment - journeyman mechanic: Respiratory Tract Infection Hx - journeyman mechanic Hx Respiratory Tract Infection No 12/31/24 09:16 STOP Sleep Apnea STOP Sleep Apnea - journeyman mechanic: STOP Sleep Apnea - journeyman mechanic Hx Hypertension No 12/31/24 09:16 Hx Sleep [...] Tobacco Use History Tobacco Use History - journeyman mechanic: Tobacco Use History - journeyman mechanic Tobacco Use Smoking Status Never smoker 12/31/24 09:16 Hx Tobacco Use No 12/31/24 09:16 Years Smoking Packs Smoked per Day Smoking Cessation Date was within the last 15 years Hx Smoking Cessation Date Hx Smoking Cessation Counseling Hematologic Medial History Hematologic Hx - journeyman mechanic: Hematologic 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 Specify any problems Hx of Preganancy in last 3 N/A 12/31/24 09:16 Months Nurse Filling Out Transfusion [facility] 12/31/24 09:16 & Questions: Date: 12/31/24 12/31/24 09:16 Time: 09:34 12/31/24 09:16 Patient unable to answer at this time (ie. confused, unrespo /Reproduction History /Reproductive History - journeyman mechanic: /Reproductive Hx- journeyman mechanic Hx Now Gestational Age (in weeks): EDC: [...] MD Cosigner Signature: Date CC: ~ Signed [facility] Work Phone: 1(991) 703-975604-29-2025 Evaluation note* Diagnosis Onset Date Resolution Status Admit Date ESRD (end stage renal diseas e) on dialysis chronic January 14, 2025 9:09am Hemodialysis access, AV graft acute January 28, 2025 9:40am Hemodialysis access, AV graft acute February 13, 2025 10:22am Vascular dialysis catheter i n place acute May 01 6:46am [facility] Work Phone: 1(833) 768-332304-29-2025 Consult note [facility] Medical Records Department [address] [place] [address] Pre-Anesthesia Evaluation 01/14/25 1021 MR#: [id number] Acct: [id number] Name: EDGAR HENDERSON Rep #:[id number] : 1950 74 From: Jorge Alberto Chavez MD PCP: Dr. Jose Miguel Herbert MD Status:REG SDC Y Race: C Location: [place] [address] ASA Classification* ASA Classification ASA Classification: 3 [...] CBC WBC 3.8 K/mm3 (4.4-11.0) L 01/10/25 12:01/10/25 RBC 2.67 M/mm3 (4.6-6.2) L 01/10/25 12:01/10/25 Hgb 9.2 g/dL (13.0-16.5) L 01/10/25 12:01/10/25 Hct 28.4 % (40-54) L 01/10/25 12:22 [...] GRAFT CREATION Anesthesia History Anesthesia History - journeyman mechanic: Anesthesia History - journeyman mechanic Hx Hospitalization No 12/31/24 09:16 Any Problems [...] (Patient water at 12:30AM.) PONV PONV - journeyman mechanic: PONV - journeyman mechanic Female No 12/31/24 09:16 HX of Motion [...] 01/14/25 09:55 Respiratory Assessment Respiratory Assessment - journeyman mechanic: Respiratory Tract Infection Hx - journeyman mechanic Hx Respiratory Tract Infection No 12/31/24 09:16 STOP Sleep Apnea STOP Sleep Apnea - journeyman mechanic: STOP Sleep Apnea - journeyman mechanic Hx Hypertension No 12/31/24 09:16 Hx Sleep [...] Tobacco Use History Tobacco Use History - journeyman mechanic: Tobacco Use History - journeyman mechanic Tobacco Use Smoking Status Never smoker 12/31/24 09:16 Hx Tobacco Use No 12/31/24 09:16 Years Smoking Packs Smoked per Day Smoking Cessation Date was within the last 15 years Hx Smoking Cessation Date Hx Smoking Cessation Counseling Hematologic Medial History Hematologic Hx - journeyman mechanic: Hematologic 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 Specify any problems Hx of Preganancy in last 3 N/A 12/31/24 09:16 Months Nurse Filling Out Transfusion [facility] 12/31/24 09:16 & Questions: Date: 12/31/24 12/31/24 09:16 Time: 09:34 12/31/24 09:16 Patient unable to answer at this time (ie. confused, unrespo /Reproduction History /Reproductive History - journeyman mechanic: /Reproductive Hx- journeyman mechanic Hx Now Gestational Age (in weeks): EDC: [...] MD Cosigner Signature: Date CC: ~ Signed [facility]04-29-2025 NoteHNO ID: [id number] Author: GRICEL BRUNO LPN Service: ? Author Type: LICENSED NURSE Type: Progress Notes Filed: 01/14/2025 10:28 Note Text: Scan on 01/13/2025 8:10 PM by ProviderLázaro PA-C: [facility]04-29-2025 History of Present illness Narrative* Gricel Bruno LPN - 01/14/2025 10:28 AM EDT Scan on 01/13/2025 8:10 PM by ProviderLázaro PA-C: Chemistry documented in this encounterPromedica Defiance Regional Hospital04-15-2025 Telephone encounter Note * Telephone Encounter - Rhea Solis RN - 12/31/2024 3:22 PM EDT COLT Macias from [facility] called nurse line inquiring if pt was established in out office and most recent OV and cardiac testing. Pt is scheduled to have a dialysis catheter placed. Called [facility] [phone]. No answer left VM stating pt last OV and dates of his recent testing. Advised to call back if any further questions. [facility]04-15-2025 Miscellaneous Notes* Telephone Encounter - Rhea Solis RN - 12/31/2024 3:22 PM EDT COLT Macias from [facility] called nurse line inquiring if pt was established in out office and most recent OV and cardiac testing. Pt is scheduled to have a dialysis catheter placed. Called [facility] [phone]. No answer left VM stating pt last OV and dates of his recent testing. Advised to call back if any further questions. documented in this encounterPromedica Defiance Regional Hospital04-15-2025 Telephone encounter Note * Telephone Encounter - Orquidea Calhoun LPN - 12/31/2024 10:36 AM EDT Faxed. Orquidea Calhoun LPN [facility]04-15-2025 Miscellaneous Notes* Telephone Encounter - Orquidea Calhoun LPN - 12/31/2024 10:36 AM EDT Faxed. Orquidea Calhoun LPN * Telephone Encounter - Cynthia Reese - 12/31/2024 10:10 AM EDT Please fax 12/24 lab results- CBC/CMP to [phone] patient is having a dialysis cath placed. Anesthesiologist requesting to see labs. documented in this encounterPromedica Defiance Regional Hospital04-15-2025 Telephone encounter Note * Telephone Encounter - Cynthia Reese - 12/31/2024 10:10 AM EDT Please fax 12/24 lab results- CBC/CMP to [phone] patient is having a dialysis cath placed. Anesthesiologist requesting to see labs. [facility] Work Phone: 1(217) 852-415104-09-2025 NoteAultman Orrville Hospital04-08-2025 Telephone encounter Note* Telephone Encounter - Sarah Chavez LPN - 12/24/2024 4:13 PM EDT Spoke with pt. Informed he is to hold his Brukinsa 1 week prior and 1 week after surgery. Pt. Voiced understanding Sarah Chavez LPN [facility]04-08-2025 Miscellaneous Notes* Telephone Encounter - Sarah [...] instructions. Dina Tolentino RN documented in this encounterPromedica Defiance Regional Hospital04-08-2025 Telephone encounter Note * Telephone Encounter - Jose Hugo DO - 12/24/2024 4:03 PM EDT That is more of an involved procedure than tooth extraction. I recommend holding it a week prior tothe graft construction in a week after. [facility]04-08-2025 Telephone encounter Note* Telephone Encounter - [...] back with further instructions. Dina Tolentino RN [facility]03-18-2025 NoteAultman Orrville [facility]03-18-2025 History of Present illness Narrative* Jose Hugo DO - 12/03/2024 10:49 AM EDT Diagnosis: 1) IgM kappa amyloidosis. HPI: The patient is a 74 yo male with a PMH significant for BPH. Had labs 03/17/2023 for upcoming annual appointment with Dr. Herbert. Per Dr. Herbert's recent eveluation: "Patient ws recently sent to [facility] due to SINDI. BUN was 47 [...] he felt like he was swimming [place]. No shortness of breath. Denied chest heaviness, tightness or palpitations." Echo at [facility]: Interpretation Summary Normal LV size. Moderate concentric left ventricular hypertrophy. Left ventricular systolic function is normal. The estimated ejection fraction is 65 %. Stage 1 diastolic dysfunction. Pulmonary artery systolic pressure is 28 mmHg. Contrast injection was performed. Hospitalized at [facility] 08/25/2023 through 09/19/2023 for nonischemic heart [...] mutation positive. Left kidney biopsy 04/14/2023: A. 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 CARDIOLOGY: Echocardiogram 03/17/2023 done at [facility] demonstrated normal LV size with moderate concentric left ventricular hypertrophy and left ventricular systolic function normal with estimated ejection fraction 65%. Stage I diastolic dysfunction was observed. Pulmonary artery systolic pressure estimated at 28 mmHg. Echocardiogram same day demonstrated normal sinus rhythm with incomplete right bundle branch block ST and T wave abnormality, consider lateral ischemia, prolonged QT. Exercise stress test at [facility] 04/19/2023: Impression: 1. Inability to reach [...] -Echocardiogram. -Referral back to Dr. Reyes at [facility]. Portions of this documentation were copied and pasted from my previous office visit note dated 09/03/2024 in order to provide a cohesive continuity of the history. The note has been reviewed and edited and updated as necessary. Jose Hugo DO documented in this encounterPromedica Defiance Regional Hospital03-11-2025 History of Present illness Narrative* Yee [...] been reviewed prior to dispensing the medication. Chief Librarian Extension Department Assessment Patient confirmed: Yes Med/dose confirmed: Yes Supplies needed: No supplies needed Missed doses: No Estimated days supply on hand: 10 Copay amount: 0 Payment confirmed: Yes Delivery method: FedEx Signature required: Required (, Medicaid, patient preference) Delivery address: [address] [place] [address], [id number] Delivery date: 12/05/24 Questions or concerns for [...] facility-administered medications on file prior to visit. [facility] RX SPECIALTY CLINICAL ASSESSMENT - HEMATOLOGY ONCOLOGY [...] unacceptable toxicity Yee Johnston documented in this encounterPromedica Defiance Regional Hospital03-11-2025 NoteAultman [facility]03-07-2025 Telephone encounter Note* Telephone Encounter - Dina Tolentino RN - 11/22/2024 1:25 PM EST Per [facility] response: The prescription insurance sent out a letter that the [facility] was no longer in network [...] the insurance processes with a $0 copay. " Called patient, left a detailed message with the above message. Patient informed [facility] will reach out to him on 11/26 to schedule his next delivery. Called with any questions related to message. Dina Tolentino RN [facility]03-07-2025 Miscellaneous Notes* Telephone Encounter - Dina Tolentino RN - 11/22/2024 1:25 PM EST Per [facility] response: The prescription insurance sent out a letter that the [facility] was no longer in network [...] the insurance processes with a $0 copay. " Called patient, left a detailed message with the above message. Patient informed [facility] will reach out to him on 11/26 to schedule his next delivery. Called with any questions related to message. Dina Tolentino RN * Telephone Encounter - Dina Tolentino RN - 11/22/2024 11:32 AM EST Secure message sent to [facility] regarding this message. Dina Tolentino RN * Telephone Encounter - Cynthia Reese - 11/22/2024 8:37 AM EST Patient called stating Brukinsa no longer in his network towards end november. Patient asking for an alternate source. Please advise. Patient states he has dialysis at 1130 and will not be able to speak after that. documented in this encounterPromedica Defiance Regional Hospital03-07-2025 Telephone encounter Note * Telephone Encounter - Dina Tolentino RN - 11/22/2024 11:32 AM EST Secure message sent to [facility] regarding this message. Dina Tolentino RN [facility]03-07-2025 Telephone encounter Note* Telephone Encounter - Cynthia Reese - 11/22/2024 8:37 AM EST Patient called stating Brukinsa no longer in his network towards end november. Patient asking for an alternate source. Please advise. Patient states he has dialysis at 1130 and will not be able to speak after that. [facility] Work Phone: [phone]) 930-311902-20-2025 Evaluation note* Diagnosis Onset Date Resolution Status Admit Date ESRD (end stage renal disease) on dialysis chronic November 072024 2:07pm ESRD (end stage renal disease) on dialysis chronic January 14, 2025 9:09am [facility] Work Phone: 1(276) 496-664102-20-2025 Evaluation note* Diagnosis Onset Date Resolution Status Admit Date ESRD (end stage renal diseas e) on dialysis chronic November 07 2:07pm ESRD (end stage renal diseas e) on dialysis chronic January 14, 2025 9:09am Hemodialysis access, AV graft acute January 28, 2025 9:40am Hemodialysis access, AV graft acute February 13, 2025 10:22am [facility] Work Phone: 1(531) 829-174402-13-2025 History of Present illness Narrative* Phylicia Lr [...] been reviewed prior to dispensing the medication. Chief Librarian Extension Department Assessment Patient confirmed: Yes Med/dose confirmed: Yes Supplies needed: No supplies needed Missed doses: Yes Count of missed doses: 1 Reason for missed doses: simply forgot to take it Estimated days supply on hand: 5 Copay amount: 0 Copay form of payment: Credit card on file Payment confirmed: Yes Delivery method: FedEx Signature required: Required ([facility] [place], Medicaid, patient preference) Delivery address: [address] [place] [address] Delivery date: 11/02/24 Questions or concerns for [...] facility-administered medications on file prior to visit. [facility] RX SPECIALTY CLINICAL ASSESSMENT - HEMATOLOGY ONCOLOGY [...] unacceptable toxicity Phylicia Lr documented in this encounterPromedica Defiance Regional Hospital02-13-2025 NoteAultman [facility]01-23-2025 History of Present illness Narrative* Yessica Hansen MD - 10/10/2024 1:40 PM EST Images from the original note were not included. 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 Yessica Hansen MD, [facility] documented in this encounterPromedica Defiance Regional Hospital01-23-2025 NoteAultman Orrville [facility]01-22-2025 NoteHNO ID: [id number] Author: GRICEL BRUNO LPN Service: ? Author Type: LICENSED NURSE Type: Progress Notes Filed: 10/09/2024 07:25 Note Text: Scan on 10/08/2024 4:33 PM by ProviderLázaro PA-C: UltrasoundAultman Orrville Hospital01-22-2025 History of Present illness Narrative* Gricel Bruno LPN - 10/09/2024 7:25 AM EST Scan on 10/08/2024 4:33 PM by Lázaro Cisse PA-C: Ultrasound documented in this encounterPromedica Defiance Regional Hospital01-09-2025 History of Present illness Narrative* Phylicia [...] been reviewed prior to dispensing the medication. Chief Librarian Extension Department Assessment Patient confirmed: Yes Med/dose confirmed: Yes Supplies needed: No supplies needed Missed doses: No Estimated days supply on hand: 9 Copay amount: 0 Payment confirmed: Yes Delivery method: FedEx Signature required: Required (, Medicaid, patient preference) Delivery address: [address] [place] [address] [place] [address] Delivery date: 10/01/24 Questions or concerns for [...] facility-administered medications on file prior to visit. [facility] RX [facility]TY CLINICAL ASSESSMENT - HEMATOLOGY ONCOLOGY [...] unacceptable toxicity Phylicia Lr documented in this encounterPromedica Defiance Regional Hospital01-09-2025 NoteAultman Orrville [facility]12-17-2024 NoteAultman [facility] Hospital12-17-2024 History of Present illness Narrative* Jose Hugo, - 09/03/2024 10:59 AM EST Diagnosis: 1) IgM kappa amyloidosis. HPI: The patient is a 73 yo male with a PMH significant for BPH. Had labs 03/17/2023 for upcoming annual appointment with Dr. Herbert. Per Dr. Herbert's recent eveluation: "Patient ws recently sent to [facility] due to SINDI. BUN was 47 [...] he felt like he was swimming in [place]. No shortness of breath. Denied chest heaviness, tightness or palpitations." Echo at [facility]: Interpretation Summary Normal LV size. Moderate concentric left ventricular hypertrophy. Left ventricular systolic function is normal. The estimated ejection fraction is 65 %. Stage 1 diastolic dysfunction. Pulmonary artery systolic pressure is 28 mmHg. Contrast injection was performed. Hospitalized at [facility] 08/25/2023 through 09/19/2023 for nonischemic heart [...] no subjective side effect. No orthostasis in, "a long time." Can climb 3 flights of stairs to his apartment now. Still "wiped out" after dialysis. Appetite has been good. Not [...] temperature source Temporal, height 170.2 cm (5' 7"), weight 52.6 kg (116 lb), SpO2 100%. [...] mutation positive. Left kidney biopsy 04/14/2023: A. 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 CARDIOLOGY: Echocardiogram 03/17/2023 done at [facility] demonstrated normal LV size with moderate concentric left ventricular hypertrophy and left ventricular systolic function normal with estimated ejection fraction 65%. Stage I diastolic dysfunction was observed. Pulmonary artery systolic pressure estimated at 28 mmHg. Echocardiogram same day demonstrated normal sinus rhythm with incomplete right bundle branch block ST and T wave abnormality, consider lateral ischemia, prolonged QT. Exercise stress test at [facility] 04/19/2023: Impression: 1. Inability to reach [...] 3 months. -Has cardiology follow-up scheduled in [place]. Portions of this documentation were copied and pasted from my previous office visit note dated 06/13/2024 in order to provide a cohesive continuity of the history. The note has been reviewed and edited and updated as necessary. I spent a total of 20 minutes on the date of the service which included preparing to see the patient, [id number] patient care, counseling and educating the patient/family/caregiver, communicating with other HCPs (not separately reported), and communicating results to the patient/family/caregiver. Jose Hugo DO documented in this encounterPromedica Defiance Regional Hospital12-09-2024 NoteAultman [facility]11-21-2024 Telephone encounter Note* Telephone Encounter - Naa Randle - 08/08/2024 10:02 AM EST Please assist with refill request. Naa Randle [facility]11-21-2024 Miscellaneous Notes* Telephone Encounter - Naa Randle - 08/08/2024 10:02 AM EST Please assist with refill request. Naa Randle documented in this encounterPromedica Defiance [facility]11-19-2024 Telephone encounter Note * Telephone Encounter - Jose Miguel Herbert MD - 08/06/2024 4:21 PM EST Orders placed for blood work to do on or after 01/17/2025 [facility]11-[facility] Miscellaneous Notes* Telephone Encounter - Jose Miguel Herbert MD - 08/06/2024 4:21 PM EST Orders placed for blood work to do on or after 01/17/2025 * Telephone Encounter - Cathie Rubin MA - 08/06/2024 4:14 PM [address] we [address] order for patient for his next 6 month visit. Cathie Rubin MA documented in this encounterPromedica Defiance [facility]11-19-2024 Telephone encounter Note * Telephone Encounter - Cathie Rubin MA - 08/06/2024 4:[address] EST [address] we [address] order for patient for his next 6 month visit. Cathie Rubin MA [facility]11-19-2024 Instructions* Patient Instructions* Jose Miguel Herbert MD - 08/06/2024 9:29 AM EST Consider getting the RSV vaccine at a local pharmacy. grinder set up operator thread tool some over the counter Flonase. Shake bottle [...] 05/19/2024 Covid-19 Vaccine(2023- season) due on 05/19/2024 WHAT YOU CAN [...] review all the medicines you take, even ofzl-wzq-dklsyjp medicines. As you get older, the way [...] have certain medical conditions. documented in this encounterPromedica Defiance [facility]11-19-2024 NoteA[facility] History of Present illness Narrative* Jose Miguel [...] (Family Medicine) Dina Tolentino RN as Specialty Skidway Worker (Oncology) Jose Hugo DO as Physician (Hematology/Oncology) Denise Wagoner LISW as Refinery Process Engineer (Hematology/Oncology) Chester Patel MD (Cardiology) Justa Tucker [...] 72 Resp 16 Ht 171.5 cm (5' 7.5") Wt 50.3 kg (111 lb) BMI 17.13 [...] thyroid lab, Al amyloidisis, Anemia, leg edema, [place] light chain disease, lymphoplasmacytic lymphoma, nonischemic cardiomyopathy, [...] 06/26/2023 Internal hemorrhoids without mention of complication [place]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 [place]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) - ICD9: [...] ICD9: 381.81, ICD10: H69.92 - discussed trial jabier Colon. 18. Encounter for screening examination for other mental health and behavioral disorders - ICD9: V79.8, ICD10: Z13.39 - done 19. Encounter for immunization - ICD9: V03.89, ICD10: Z23 - PFIZER-BIONTECH COVID-19 VACCINE AGE 12+ YR ([place]): given F/u 6 months routine. I spent a total of 40 minutes on the date of the service which included preparing to see the patient, ihid-bz-vdtt patient care, completing clinical documentation, performing a medically appropriate examination, counseling and educating the patient/family/caregiver and ordering medications, tests, or procedures. Jose Miguel Herbert MD The sensitive examination was discussed with the Patient or Patient's Authorized Bake Room Worker. Asapplicable, any other physician, advance practice provider, medical student, or other health professional student that will be observing or involved in the sensitive examination for educational or training purposes was discussed with the Patient or Authorized Bake Room Worker. The Patient or Authorized Bake Room Worker has agreed to proceed with the sensitive examination. (Sensitive examination includes inspection and/or palpation of the breasts, pelvis, prostate and anorectal regions) documented in this encounterPromedica Defiance [facility] Hospital11-13-2024 Telephone encounter Note * Telephone Encounter - Naa Ford RN - 07/31/2024 12:32 PM EST TC patient, left detailed message for patient on identified voicemail that lab orders placed and that if he has any questions to call back and speak with a nurse. Naa Ford RN [facility]11-13-2024 Miscellaneous Notes* Telephone Encounter - Naa [...] advise, Naa Ford RN documented in this encounterPromedica Defiance [facility] Hospital11-13-2024 Telephone encounter Note * Telephone Encounter - Sheree Fabian PA-C - 07/31/2024 12:28 PM EST Labs placed. Sheree Fabian PA-C [facility]11-13-2024 Telephone encounter Note* Telephone Encounter - Naa Ford RN - 07/31/2024 10:07 AM EST Patient calls and states that he has medicare wellness exam on 08/06/2024. Patient asking if provider will order labs so that he can have them done prior to appointment? Please review and advise, Naa Ford RN [facility]11-07-2024 History of Present illness Narrative* Adeline Phylicia - 07/25/2024 1:36 PM EST [facility] Ref[facility] Assessment Medication(s): Radhaa Patient's current medication list and adherence status [...] been reviewed prior to dispensing the medication. Chief Librarian Extension Department Assessment Patient confirmed: Yes Med/dose confirmed: Yes Supplies needed: No supplies needed Missed doses: No Estimated days supply on hand: 10 Copay amount: 0 Payment confirmed: Yes Delivery method: FedEx Signature required: No Delivery address: [address] [place] [id number] Delivery date: 07/27/24 Questions or concerns for [...] facility-administered medications on file prior to visit. [facility] CLINICAL ASSESSMENT - HEMATOLOGY ONCOLOGY [...] unacceptable toxicity Phylicia Lr documented in this encounterPromedica Defiance [facility] Hospital10-28-2024 Telephone encounter Note * Telephone Encounter - Cass Jacobs LPN - 07/15/2024 10:41 AM EDT Are you willing to prescribe this? Last prescribed by Dr. Gumaro Pérez. Patient has not follow up with him. Cass Jacobs LPN [facility]10-28-2024 Miscellaneous Notes* Telephone Encounter - Cass [...] and advise. Cynthia Fragoso documented in this encounterPromedica Defiance [facility] Hospital10-28-2024 Telephone encounter Note * Telephone Encounter - Cynthia Reese - 07/15/2024 10:05 AM EDT Scheduled [facility] Work Phone: 1(474) 113-490810-28-2024 Miscellaneous Notes* Telephone Encounter - Cynthia Reese [...] rescheduling. Orquidea Calhoun LPN documented in this encounterPromedica Defiance [facility] Hospital10-28-2024 Telephone encounter Note * Telephone Encounter - Orquidea Calhoun LPN - 07/15/2024 10:01 AM EDT Noted. Can you make him a lab apt anyway, just pick a random time in the afternoon so his name willbe on my list to watch for. Thanks. Orquidea Calhoun LPN [facility]10-28-2024 Telephone encounter Note* Telephone Encounter - Cynthia Reese - 07/15/2024 9:57 AM EDT Patient called stating he will be in on to have labs. Patient did not want to schedule. States he will do walk in. [facility]10-[facility] Telephone encounter Note* Telephone Encounter - [...] daily. Please review and advise. Cynthia Fragoso [facility] Work Phone: 1(781) 903-380010-25-2024 Telephone encounter Note* Telephone Encounter - Cynthia Reese - 07/12/2024 12:14 PM EDT 1st attempt. Message left for patient to contact office to reschedule 07/11 lab appointment. CBC/MYELOMA LABS - NO URINE* [facility]10-25-2024 Telephone encounter Note* Telephone Encounter - Orquidea Calhoun LPN - 07/12/2024 10:47 AM EDT Pt missed his lab apt yesterday, please assist pt in rescheduling. Orquidea Calhoun LPN [facility]10-04-2024 History of Present illness Narrative* Phylicia Lr - 06/21/2024 11:10 AM EDT [facility] Ref[facility] Assessment Medication(s): Brukinsa Patient's [...] been reviewed prior to dispensing the medication. Chief Librarian Extension Department Assessment Patient confirmed: Yes Med/dose confirmed: Yes Supplies needed: No supplies needed Missed doses: Yes Count of missed doses: 7 Reason for missed doses: had a dental procedure done held doses Estimated days supply on hand: 14 Copay amount: 0 Payment confirmed: Yes Delivery method: FedEx Signature required: No Delivery address: [address] [place] [id number] Delivery date: 06/29/24 Questions or concerns for [...] facility-administered medications on file prior to visit. [facility] CLINICAL ASSESSMENT - HEMATOLOGY ONCOLOGY [...] unacceptable toxicity Phylicia Lr documented in this encounterPromedica Defiance [facility] Hospital10-03-2024 Telephone encounter Note * Telephone Encounter - Naa Randle - 06/20/2024 10:10 AM EDT Spoke with patient, advising below. Patient stated understanding. Naa Randle [facility]10-03-2024 Miscellaneous Notes* Telephone Encounter - Naa Randle - 06/20/2024 10:10 AM EDT Spoke with patient, advising below. Patient stated understanding. Naa Randle * Telephone Encounter - Jose Hugo DO - 06/20/2024 10:08 AM EDT You can let him know that I asked Dr. Reyes the chemist proteins at [facility] if it would be okay to see a chemist proteins in the region and he said that would be okay. Jose Hugo DO * Telephone Encounter - Naa Randle - 06/20/2024 9:16 AM EDT Spoke with patient and labs are scheduled. Patient is glad to be in remission, but is questioning changing the cardiologists. The cardiologisthe was seeing at [facility] specialized amyloidosis and patient is wondering if it is perez to change to another chemist proteins that may not specialized in amyloidosis. Please advise. Naa Randle Patient is scheduled to see Dr. Hansen in September in [place]. Cass Jacobs LPN * Telephone Encounter - Jose Hugo DO - 06/19/2024 5:43 PM EDT Per my recent AVS. Monthly CBC/MM labs (no urine). OV/CBC/CMP/MM labs (no urine) in 3 months. Referral to cardiology at [place] for cardiomyopathy. I do not see that he is scheduled for monthly labs. documented in this encounterPromedica Defiance [facility] Hospital10-03-2024 Telephone encounter Note * Telephone Encounter - Jose Hugo DO - 06/20/2024 10:08 AM EDT You can let him know that I asked Dr. Reyes the chemist proteins at [facility] if it would be okay to see a chemist proteins in the region and he said that would be okay. Jose Hugo DO [facility]10-03-2024 Telephone encounter Note* Telephone Encounter - Naa Randle - 06/20/2024 9:16 AM EDT Spoke with patient and labs are scheduled. Patient is glad to be in remission, but is questioning changing the cardiologists. The cardiologisthe was seeing at [facility] specialized amyloidosis and patient is wondering if it is perez to change to another chemist proteins that may not specialized in amyloidosis. Please advise. Naa Randle Patient is scheduled to see Dr. Hansen in September in [place]. Cass Jacobs LPN [facility]10-02-2024 Telephone encounter Note* Telephone Encounter - Jose Hugo DO - 06/19/2024 5:43 PM EDT Per my recent AVS. Monthly CBC/MM labs (no urine). OV/CBC/CMP/MM labs (no urine) in 3 months. Referral to cardiology at [place] for cardiomyopathy. I do not see that he is scheduled for monthly labs. [facility]09-26[facility] History of Present illness Narrative* Jose Hugo DO - 06/13/2024 11:48 AM EDT Diagnosis: 1) IgM kappa amyloidosis. HPI: The patient is a 73 yo male with a PMH significant for BPH. Had labs 03/17/2023 for upcoming annual appointment with Dr. Herbert. Per Dr. Herbert's recent eveluation: "Patient ws recently sent to [facility] due to SINDI. BUN was 47 [...] he felt like he was swimming in [place]. No shortness of breath. Denied chest heaviness, tightness or palpitations." Echo at [facility]: Interpretation Summary Normal LV size. Moderate concentric left ventricular hypertrophy. Left ventricular systolic function is normal. The estimated ejection fraction is 65 %. Stage 1 diastolic dysfunction. Pulmonary artery systolic pressure is 28 mmHg. Contrast injection was performed. Hospitalized at [facility] 08/25/2023 through 09/19/2023 for nonischemic heart [...] mutation positive. Left kidney biopsy 04/14/2023: A. 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 CARDIOLOGY: Echocardiogram 03/17/2023 done at [facility] demonstrated normal LV size with moderate concentric left ventricular hypertrophy and left ventricular systolic function normal with estimated ejection fraction 65%. Stage I diastolic dysfunction was observed. Pulmonary artery systolic pressure estimated at 28 mmHg. Echocardiogram same day demonstrated normal sinus rhythm with incomplete right bundle branch block ST and T wave abnormality, consider lateral ischemia, prolonged QT. Exercise stress test at [facility] 04/19/2023: Impression: 1. 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 Portions of this documentation were copied and pasted from previous office visit notes in order to provide a cohesive continuity of the history. The note has been reviewed and edited and updated as necessary. I spent a total of 15 minutes on the date of the service which included preparing to see the patient, pszb-jb-hmak patient care, completing clinical documentation, obtaining and/or reviewing separately obtained history, performing a medically appropriate examination, communicating with other HCPs (n ot separately reported), and communicating results to the patient/family/caregiver. Jose Hugo DO documented in this encounterPromedica Defiance [facility] Hospital08-29-2024 History of Present illness Narrative* Jose Hugo DO - 05/16/2024 11:01 AM EDT Diagnosis: 1) IgM kappa amyloidosis. HPI: The patient is a 73 yo male with a PMH significant for BPH. Had labs 03/17/2023 for upcoming annual appointment with Dr. Herbert. Per Dr. Herbert's recent eveluation: "Patient ws recently sent to [facility] due to SINDI. BUN was 49 [...] he felt like he was swimming [place]. No shortness of breath. Denied chest heaviness, tightness or palpitations." Echo at [facility]: Interpretation Summary Normal LV size. Moderate concentric left ventricular hypertrophy. Left ventricular systolic function is normal. The estimated ejection fraction is 65 %. Stage 1 diastolic dysfunction. Pulmonary artery systolic pressure is 28 mmHg. Contrast injection was performed. Hospitalized at [facility] 08/25/2023 through 09/19/2023 for nonischemic heart [...] mutation positive. Left kidney biopsy 04/14/2023: A. 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 CARDIOLOGY: Echocardiogram 03/17/2023 done at [facility] demonstrated normal LV size with moderate concentric left ventricular hypertrophy and left ventricular systolic function normal with estimated ejection fraction 65%. Stage I diastolic dysfunction was observed. Pulmonary artery systolic pressure estimated at 28 mmHg. Echocardiogram same day demonstrated normal sinus rhythm with incomplete right bundle branch block ST and T wave abnormality, consider lateral ischemia, prolonged QT. Exercise stress test at [facility] 04/19/2023: Impression: 1. 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 Jose Hugo DO documented in this encounterPromedica Defiance [facility] Hospital08-28-2024 History of Present illness Narrative* Gricel Bruno LPN - 05/15/2024 7:47 AM EDT Scan on 05/14/2024 4:26 PM by Provider, External, KELBY: Consultation - documented in this encounterPromedica Defiance [facility] Hospital08-28-2024 History of Present illness Narrative* Gricel Bruno LPN - 05/15/2024 7:30 AM EDT Scan on 05/14/2024 5:14 PM by Provider, KELBY Sesay: Chemistry documented in this encounterPromedica Defiance [facility] Hospital08-20-2024 Telephone encounter Note * Telephone Encounter - [...] Chills: No Cold sensitivity: No Numbness/weakness: Yes "I've always had numbness in my toes but that goes back a long ways" unchanged from baseline. Edema: No Skin changes: No Itching: Constant itching, "I scratch til I bleed". Wearing pants to bed which helps reduce [...] if unable to comply. Dina Tolentino RN [facility]08-20-2024 Miscellaneous Notes* Telephone Encounter - Dina [...] Chills: No Cold sensitivity: No Numbness/weakness: Yes "I've always had numbness in my toes but that goes back a long ways" unchanged from baseline. Edema: No Skin changes: No Itching: Constant itching, "I scratch til I bleed". Wearing pants to bed which helps reduce [...] comply. Dina Tolentino RN documented in this encounterPromedica Defiance [facility] Hospital08-12-2024 Telephone encounter Note * Telephone Encounter - Cass Jacobs LPN - 04/29/2024 1:48 PM EDT Detailed message left on patient's identified VM. Cass Jacobs LPN [facility]08-12-2024 Miscellaneous Notes* Telephone Encounter - Cass [...] patient. Dina Tolentino RN documented in this encounterPromedica Defiance Regional Hospital08-12-2024 Telephone encounter Note * Telephone Encounter - Jose Hugo DO - 04/29/2024 1:41 PM EDT Yes, we will hold off on bone marrow biopsy. I will talk with him about the timing of it when I seehim next. Jose Hugo DO [facility]08-12-2024 Telephone encounter Note* Telephone Encounter - [...] if medication is helping. Cass Jacobs LPN [facility]08-09-2024 Telephone encounter Note* Telephone Encounter - Cass Jacobs LPN - 04/26/2024 2:04 PM EDT Left message for patient to contact office. Cass Jacobs LPN [facility]08-09-2024 Telephone encounter Note* Telephone Encounter - Jose Hugo DO - 04/26/2024 1:17 PM EDT Start Zanubrutinib on Monday. Lab work and office visit as scheduled 05/16. Can schedule the bone marrow biopsy for late May. Jose Hugo DO [facility]08-09-2024 Telephone encounter Note* Telephone Encounter - [...] has zofran at home. Dina Tolentino RN [facility]08-08-2024 Telephone encounter Note* Telephone Encounter - Dina Tolentino RN - 04/25/2024 11:58 AM EDT Patient had multiple questions. This nurse will call him back tomorrow with answers to questions. Dina Tolentino RN [facility]08-08-2024 Telephone encounter Note* Telephone Encounter - [...] teaching topics as needed. Dina Tolentino RN [facility]08-07-2024 Telephone encounter Note* Telephone Encounter - Dina Tolentino RN - 04/24/2024 9:49 AM EDT ORAL ANTI-CANCER AGENTS EDUCATION patient called today for oral medication education of zanubrutinib for Lymphoplasmacytic lymphoma Anticipated/Scheduled start date: TBD- has not received medication yet Called patient, no answer, left a VM requesting a call back from patient. Dina Tolentino, RN [facility]08-01-2024 History of Present illness Narrative* Jarrett (bizHiveMami Howe - 04/18/2024 2:02 PM EDT [facility] received prescription(s) for Brukinsa from Dr. Hugo's office. Benefits investigation was conducted, indicating that a prior authorization is required by patient'sinsurance plan with [employer]. Encounter will be updated once prior authorization has been submitted by [facility]. documented in this encounterPromedica Defiance Regional Hospital08-01-2024 History of Present illness Narrative* Jose Hugo DO - 04/18/2024 9:46 AM EDT Diagnosis: 1) IgM kappa amyloidosis. HPI: The patient is a 73 yo male with a PMH significant for BPH. Had labs 03/17/2023 for upcoming annual appointment with Dr. Herbert. Per Dr. Herbert's recent eveluation: "Patient ws recently sent to [facility] due to SINDI. BUN was 49 [...] he felt like he was swimming in [place]. No shortness of breath. Denied chest heaviness, tightness or palpitations." Echo at [facility]: Interpretation Summary Normal LV size. Moderate concentric left ventricular hypertrophy. Left ventricular systolic function is normal. The estimated ejection fraction is 65 %. Stage 1 diastolic dysfunction. Pulmonary artery systolic pressure is 28 mmHg. Contrast injection was performed. Hospitalized at [facility] 08/25/2023 through 09/19/2023 for nonischemic heart [...] PCP and was found to have an ISNDI with Cr 2.47. Since then, Cr has [...] mutation positive. Left kidney biopsy 04/14/2023: A. 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 CARDIOLOGY: Echocardiogram 03/17/2023 done at [facility] demonstrated normal LV size with moderate concentric left ventricular hypertrophy and left ventricular systolic function normal with estimated ejection fraction 65%. Stage I diastolic dysfunction was observed. Pulmonary artery systolic pressure estimated at 28 mmHg. Echocardiogram same day demonstrated normal sinus rhythm with incomplete right bundle branch block ST and T wave abnormality, consider lateral ischemia, prolonged QT. Exercise stress test at [facility] 04/19/2023: Impression: 1. 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 Jose Hugo DO documented in this encounterPromedica Defiance [facility] Hospital07-23-2024 History of Present illness Narrative* Chester Patel MD - 04/09/2024 4:08 PM EDT Images from the original note were not included. 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 He was started on iHD 12/2023 via [facility] MWF for 3 hrs. Midodrine was started due to hypotension. Hestill makes urine, he is unsure of how much ("at night I get up to urinate multiple times"). Swelling has been much better since he [...] biopsy was done on 04/14/23 which showed [place] light chain amyloidosis extensively involving glomeruli, the [...] with concerns of cardiac involvement. He feels "extreme fatigue". 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 Living will on file 01/27/2022 DPA: Bari Betancur (assistant city attorney) 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 Medicare annual wellness [...] Arm) Pulse 73 Ht 170.2 cm (5' 7") Wt 45.6 kg (100 lb 8 oz) [...] Kidney biopsy was done on 04/14/23 showed [place] light chain amyloidosis extensively involving glomeruli, the [...] limited by hypotension andrenal function. 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 Chester Kwan MD [facility] Section Of Heart Failure and Cardiac Transplant Medicine Heart and Vascular [place] [facility] Desk J3-[address] [place] [address] documented in this encounterPromedica Defiance Regional Hospital07-23-2024 Telephone encounter Note * Telephone Encounter [...] Nona Blake April 09, 2024 10:41 AM [facility]07-23-2024 Miscellaneous Notes* Telephone Encounter - Nona Hinojsoa - 04/09/2024 10:41 AM EDT Prescription Refill [...] 09, 2024 10:41 AM documented in this encounterPromedica Defiance Regional Hospital07-02-2024 History of Present illness Narrative* Oanh Jim APRN.BOOSTER ASSEMBLER - 03/19/2024 9:53 AM EDT Chief Complaint Patient presents with: Established Patient HPI: Edgar Henderson is a 73 year old male who presents here today for evaluation for treatment next week. Per Dr. Hugo's previous note: H/o BPH. Had labs 03/17/2023 for upcoming annual appointment with Dr. Herbert. Per Dr. Herbert's recent eveluation: "Patient ws recently sent to [facility] due to SINDI. BUN was 47 [...] he felt like he was swimming in [place]. No shortness of breath. Denied chest heaviness, tightness or palpitations." Echo at [facility]: Interpretation Summary Normal LV size. Moderate concentric left ventricular hypertrophy. Left ventricular systolic function is normal. The estimated ejection fraction is 65 %. Stage 1 diastolic dysfunction. Pulmonary artery systolic pressure is 28 mmHg. Contrast injection was performed. Hospitalized at [facility] 08/25/2023 through 09/19/2023 for nonischemic heart [...] mg, developed urinary retention. On dialysis M-W-. Appetite:"Ravenous." Energy level:"Exhausted." Denies fevers. Mouth:denies sores Resp:denies cough or [...] - 4.00 k/uL 0.13 (L) 0.23 (L) Mcdonald% % 9.5 11.1 Abs Mcdonald <0.87 k/uL 0.66 0.85 Eosin% % 5.1 [...] ICD9: 200.80, ICD10: C83.00 (primary diagnosis) 2. [place]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) - ICD9: [...] to use diuretic. -I talked with his associate professor of music. He and the nursing team have serious concerns about his ability totolerate dialysis given his extremely low blood pressures. -Given his KPS, not currently a candidate for further cytotoxic chemotherapy. He is leaning towardsspice care. Plan: -Stop bumetanide. -Continue dialysis as [...] as necessary for today's visit. Oanh Jim APRN.BOOSTER ASSEMBLER documented in this encounterCleveland [id number] History of Present illness Narrative* Krystal Maat RN - 02/29/2024 10:43 AM EDT Assessment unchanged from 02/27/24 chemotherapy treatment. documented in this encounterPromedica Defiance Regional Hospital06-07-2024 Telephone encounter Note * Telephone Encounter - Cynthia Reese - 02/23/2024 1:23 PM EDT Schedule updated. Detailed message left on self identifying voicemail informing pt to come in at 1 on 02/26 for labs prior to treatment [facility] Work Phone: [phone]) 181-443206-07-2024 Miscellaneous Notes* Telephone Encounter - Cynthia Reese [...] He states he cannot come in for 6/7 lab and office visit prior to treatment. Please advise if ok for straightback. Updating notes now for future appts and will adjust schedule. documented in this encounterPromedica Defiance Regional Hospital06-07-2024 Telephone encounter Note * Telephone Encounter - Sarah Chavez LPN - 02/23/2024 10:29 AM EDT For 02/22 we can do as astraight back on per Dr. Hugo. Sarah Chavez LPN Has not yet decided on 03/22 appt. Sarah Chavez LPN [facility]06-04-2024 Telephone encounter Note* Telephone Encounter - Cynthia Reese - 02/20/2024 3:40 PM EDT Next cycle for patient falls with office visit and lab on 03/22. Unable to schedule of course on . Please advise on this appointment as well. [facility]06-04-2024 Telephone encounter Note* Telephone Encounter - Cynthia Reese - 02/20/2024 3:19 PM EDT Patient called stating he is unable to come in for appointments on Mon, Wed and Fri due to dialysis. He states he cannot come in for 6/7 lab and office visit prior to treatment. Please advise if ok for straightback. Updating notes now for future appts and will adjust schedule. [facility]04-24-2024 Telephone encounter Note* Telephone Encounter - Jose Hugo DO - 01/10/2024 12:32 PM EDT I will give him a call later this afternoon or tomorrow. Jose Hugo DO [facility]04-24-2024 Miscellaneous Notes* Telephone Encounter - Jose Hugo DO - 01/10/2024 12:32 PM EDT I will give him a call later this afternoon or tomorrow. Jose Hugo DO * Telephone Encounter - Dina Tolentino RN - 01/10/2024 11:24 AM EDT [facility] Care Coordination FOLLOW-UP NOTE Patient [...] Will follow up after speaking to Dr. Bethel Tolentino RN January 10, 2024 documented in this encounterPromedica Defiance Regional Hospital04-24-2024 Telephone encounter Note * Telephone Encounter - Dina Tolentino RN - 01/10/2024 11:24 AM EDT Yayo Care Coordination FOLLOW-UP NOTE Patient [...] Will follow up after speaking to Dr. Bethel Tolentino RN January 10, 2024 [facility]04-18-[facility] History of Present illness Narrative* JuliaJose sepulveda, - 01/04/2024 10:47 AM EDT Diagnosis: 1) IgM kappa HPI: The patient is a 73 yo male with a PMH significant for BPH. Had labs 03/17/2023 for upcoming annual appointment with Dr. Herbert. Per Dr. Herbert's recent eveluation: "Patient ws recently sent to [facility] due to SINDI. BUN was 47 [...] he felt like he was swimming in [place]. No shortness of breath. Denied chest heaviness, tightness or palpitations." Echo at [facility]: Interpretation Summary Normal LV size. Moderate concentric left ventricular hypertrophy. Left ventricular systolic function is normal. The estimated ejection fraction is 65 %. Stage 1 diastolic dysfunction. Pulmonary artery systolic pressure is 28 mmHg. Contrast injection was performed. Hospitalized at [facility] 08/25/2023 through 09/19/2023 for nonischemic heart [...] He was sent to the ED at [facility]. Blood pressure was a bit higher [...] mutation positive. Left kidney biopsy 04/14/2023: A. 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 CARDIOLOGY: Echocardiogram 03/17/2023 done at [facility] demonstrated normal LV size with moderate concentric left ventricular hypertrophy and left ventricular systolic function normal with estimated ejection fraction 65%. Stage I diastolic dysfunction was observed. Pulmonary artery systolic pressure estimated at 28 mmHg. Echocardiogram same day demonstrated normal sinus rhythm with incomplete right bundle branch block ST and T wave abnormality, consider lateral ischemia, prolonged QT. Exercise stress test at [facility] 04/19/2023: Impression: 1. 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 -I talked with his associate professor of music. He and the nursing team have serious [...] which included preparing to see the patient, [id number] patient care, completing clinical documentation, obtaining and/or reviewing separately obtained history, performing a medically appropriate examination, counseling and educating the pat ient/family/caregiver, ordering medications, tests, or procedures, communicating with other HCPs (not separately reported), and communicating results to the patient/family/caregiver. Jose Hugo DO documented in this encounterPromedica Defiance Regional Hospital04-17-2024 Miscellaneous Notes* Telephone Encounter - Denise Wagoner LISW - 01/03/2024 10:06 AM EDT Spoke with Edgar and he is in agreement with referral to [facility] who will manage placement and conversations [...] . Orquidea Calhoun LPN documented in this encounterPromedica Defiance Regional Hospital04-10-2024 Miscellaneous Notes* Telephone Encounter - Denise [...] asked how he is doing pt responded "well, I'm dying." SW spent time discussing and navigating this with pt. SW and pt discussed services to assist pt including home health, transportation, emotional support/counseling. Pt reported a few times that he hasa lot of trouble taking care of himself as he lives alone and has no family or friends to assist him. SW discussed with pt considering a transition to assisted living or intermediate care facilities. Pt is adamantly opposed to moving. SW and pt discussed home health services and SW answered all questions. Pt agreed to SW referring him to [facility]. SW to refer this date and follow up as needed. SW and pt also discussed transportation needs. SW offered several agencies that can assist and offered to mail their contact information to pt as pt does not use MyChart. Pt in agreement with receiving information. SW encouraged pt if things worsen physically and/or emotionally to go to his local ED. Pt voiced understanding however also reported I hate that place. Pt agreed to SW check ins from time to time and reports "I would appreciate that." PLAN: Referral to appropriate support group, Communicate [...] dialysis today. He informed dialysis is at [facility] here [facility]. Questioned about his blood pressure, he states he has no way of checking it, informed he should schedule appt. With his PCP to be examined. [facility] dialysis contacted spoke with Sherie she informed she has had multiple discussions with pt. He has been dialyzed once for 2 hrs. Their concern is pt. Drives himself and they will not allow him to drive home after dialysis due to decreased B/P, they have offered for pt. To see their social work lecturer and pt. Won't hear of it. Also recommended he see his PCP and chemist proteins. Sherie did inform if pt. Doesn't make it to dialysis today then he will need to be medically clearedbefore he will be allowed to return. Pt. Scheduled with Dr. Hugo 01/03 to discuss plan of care. Sarah Chavez LPN * Telephone Encounter - Sarah Chavez LPN - 12/22/2023 11:37 AM EDT Spoke with pt. Informed he needed to contact his associate professor of music to discuss issues with B/P and Dialysis. [...] spoke to him, he stated the following: " I'm totally exhausted. Nobody ever asks me what I'm capable of, they just hand me a calendar and expect me to do everything and it's like a full-time job. I just can't do it anymore." Patient would like to speak to Dr. [...] on 12/20. Francisca Land documented in this encounterPromedica Defiance Regional Hospital04-01-2024 History of Present illness Narrative* Jose Hugo DO - 12/18/2023 9:36 AM EDT Not seen for office visit today. Patient was due to have dialysis on Monday but blood pressure was too low. He was sent to the ED at [facility]. Discharged home. Blood pressure this morning very low. After he was roomed, he tried crawling up onto the exam table by himself. We helpedhim get up and he was only able to lie supine and not open his eyes. Answered questions appropriately. Sonam was called and sent to ED. Spoke with Dr. Sean Hugo DO documented in this encounterPromedica Defiance Regional Hospital03-26-2024 Miscellaneous Notes* Telephone Encounter - Jose Hugo DO - 12/12/2023 1:16 PM EDT Yes. Jose Hugo DO * Telephone Encounter - Naa Randle - 12/12/2023 11:42 AM EDT Patient presented at [facility] [employer] as he is starting Dialysis at [facility] in [place] this Monday,12/15/23, and will be having dialysis every Monday/Monday/Monday at 11:00 AM. Patient's schedule has been adjusted, with his D2 Bendam[place]ine at either 9 or 9:[address] Hugo - is this ok? Naa Randle documented in this encounterPromedica Defiance Regional Hospital03-22-2024 History of Present illness Narrative* Laurie Downey LPN - 12/08/2023 2:04 PM EDT Patient presents for COVID vaccine. Denies any problems at this time. Tolerated injection well. Laurie Downey LPN documented in this encounterPromedica Defiance Regional Hospital03-21-2024 History of Present illness Narrative* Tana [...] PATIENT PRESENTS WITH AN IMPLANTABLE OR ATTACHED CROCODILE FARMER: No RADIOLOGY DEPARTMENT: General X-ray: Exam(s) Completed: Chest X-Ray PERIPHERAL IV DATA: Not applicable SIGNED BY: RT Lotus(R) December 07, 2023 11:28 AM documented in this encounterPromedica Defiance Regional Hospital03-21-2024 Miscellaneous Notes* Telephone Encounter - Xena Pagan APRN.CNP - 12/07/2023 11:17 AM EDT Voicemail left [...] the blood work is needed.Thanks! Callback number: [phone] Maribel Tidwell documented in this encounterPromedica Defiance Regional Hospital03-20-2024 Miscellaneous Notes* Telephone Encounter - Gricel [...] being at desirable levels. documented in this encounterPromedica Defiance Regional Hospital03-19-2024 History of Present illness Narrative* Gumaro [...] plan for catheter placement. documented in this encounterPromedica Defiance Regional Hospital03-14-2024 Nurse Note* Orquidea Calhoun LPN - 11/30/2023 2:43 PM EDT Pt here for injection of Nulasta. Given SQ in left arm. Pt tolerated well. Orquidea Calhoun LPN documented in this encounterPromedica Defiance Regional Hospital03-13-2024 History of Present illness Narrative* Jose Miguel Herbert MD - 11/29/2023 3:40 PM EDT Chief Complaint Patient presents with: F/U 6 months HPI Edgar Henderson is a 73 year old male who presents here today for 6 month follow up. 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 Will monitor 14. Advance directive discussed with patient - ICD9: V65.49, ICD10: Z71.89 - up to date. 15. Situational depression - ICD9: 309.0, ICD10: F43.21 - discussed starting sertraline at 25 mg 1/2 a tab for 2 weeks and then a full tab a day. Patient will consider this. F/u in 6 months extensive. Jose Miguel Herbert MD documented in this encounterPromedica Defiance Regional Hospital03-11-2024 History of Present illness Narrative* Oanh Jim APRN.BOOSTER ASSEMBLER - 11/27/2023 11:54 AM EDT Chief Complaint Patient presents with: Established Patient HPI: Edgar Henderson is a 73 year old male who presents here today for evaluation for treatment tomorrow. Per Dr. Hugo's previous note: H/o BPH. Had labs 03/17/2023 for upcoming annual appointment with Dr. Herbert. Per Dr. Herbert's recent eveluation: "Patient ws recently sent to [facility] due to SINDI. BUN was 47 [...] he felt like he was swimming in [place]. No shortness of breath. Denied chest heaviness, tightness or palpitations." Echo at [facility]: Interpretation Summary Normal LV size. Moderate concentric left ventricular hypertrophy. Left ventricular systolic function is normal. The estimated ejection fraction is 65 %. Stage 1 diastolic dysfunction. Pulmonary artery systolic pressure is 28 mmHg. Contrast injection was performed. Hospitalized at [facility] 08/25/2023 through 09/19/2023 for nonischemic heart [...] cost prohibitive. Using TUMS per nephrology recommendations. Appetite:"Ravenous." Wt. down 8# over past month. Energy level:"It's low." Denies fevers. Mouth:denies sores Resp:denies cough or [...] (L) 0.08 (L) 0.07 (L) 0.11 (L) Mcdonald% % 7.0 4.4 9.5 12.0 Abs Mcdonald <0.87 k/uL 3.06 (H) 0.73 0.77 0.81 [...] ICD9: 200.80, ICD10: C83.00 (primary diagnosis) 2. 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 [...] kappa free light chain 199.4 mg/dL. Now [place] down to 63 and m protein 0. [...] 2023 TIME: 9:36 AM documented in this encounterPromedica Defiance Regional Hospital03-08-2024 Instructions* Patient Instructions* Xena Pagan APRN.BOOSTER ASSEMBLER - 11/24/2023 1:25 PM EST [email or web address] documented in this encounterPromedica Defiance Regional Hospital03-08-2024 History of Present illness Narrative* Xena Pagan APRN.CNP - 11/24/2023 1:00 PM EST Date: 11/24/23 Time:1300 Optimal Transition Program Education visit Referred by: Dr. 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 He is interested in vascular referral for their opinion on options. Dr. Pérez was updated on the patient's preference and will be seeing the patient today. Provided resources via AVS and in-person. I spent 60 minutes in the visit of kkcw-wy-rwoo time in counseling/education. Xena Pagan APRN.YOU documented in this encounterPromedica Defiance Regional Hospital03-06-2024 Miscellaneous Notes* Telephone Encounter - Paz Diezyaneth - 11/22/2023 3:32 PM EST Telephone call to patient to offer initial palliative medicine appointment. Patient is aware of thereferral and refuse to schedule at this time. Edgar states he would like to wait until Dr. Alcala returns. Patient was given the number to the scheduling office at [phone] if he changes his mind. Megan Diez, [employer] Shift documented in this encounterPromedica Defiance Regional Hospital02-29-2024 Instructions* Patient Instructions* Talia Russell APRN.CNP - 11/16/2023 3:30 PM EST -No medication changes today. -Follow-up with Dr. Reyes on 03/08/2024. Please let me know if you are having issues and I can seeyou sooner. documented in this encounterPromedica Defiance Regional Hospital02-29-2024 History of Present illness Narrative* Talia Russell APRN.CNP - 11/16/2023 3:10 PM EST Images from the original note were not included. Heart and Vascular [facility] SECTION OF HEART FAILURE and CARDIAC TRANSPLANT MEDICINE OUTPATIENT VISIT DATE 11/16/2023 PRIMARY CARE PHYSICIAN: Jose Miguel Herbert [address] [place] [address] PRIMARY HEART FAILURE STRATIGRAPHER: Dr. 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 [...] function is stable. No medication changes today. Ofnote, his associate professor of music told him that he expects him to [...] no Other anti-HTN: no Device therapy: no, northway QRS: 98 ms Sleep apnea: no Anemia: yes -AL Amyloid ([place]) with renal and cardiac involvement. Quinteros stage [...] as above. Talia Russell MSN, ACNP-BC, CHFN, [facility] [place] [facility] Section Of Heart Failure and Cardiac Transplant Medicine Heart and Vascular [place] [facility] Desk J3-[address] [place] [address] documented in this encounterPromedica Defiance Regional Hospital02-23-2024 History of Present illness Narrative* Gricel Bruno LPN - 11/10/2023 7:39 AM EST Scan on 11/09/2023 4:15 PM by Provider, KELBY Sesay: Consultation - documented in this encounterPromedica Defiance Regional Hospital02-21-2024 Miscellaneous Notes* Telephone Encounter - Cass Jacobs LPN - 11/08/2023 1:27 PM EST Information given to patient. I reviewed medication instructions several times with patient until he verbalized understanding. Patient has 0.5 mg and 1 mg tablets at home. He was instructed by Dr. Pérez to take 1 mg of Bumex per day at the OV on 10/23/2023. He wasn't exactly sure what [...] in BUN and creatinine. documented in this encounterPromedica Defiance Regional Hospital02-09-2024 History of Present illness Narrative* Jose Hugo DO - 10/27/2023 12:14 PM EST Diagnosis: 1) IgM kappa HPI: The patient is a 73 yo male with a PMH significant for BPH. Had labs 03/17/2023 for upcoming annual appointment with Dr. Herbert. Per Dr. Herbert's recent eveluation: "Patient ws recently sent to [facility] due to SINDI. BUN was 47 [...] he felt like he was swimming [place]. No shortness of breath. Denied chest heaviness, tightness or palpitations." Echo at [facility]: Interpretation Summary Normal LV size. Moderate concentric left ventricular hypertrophy. Left ventricular systolic function is normal. The estimated ejection fraction is 65 %. Stage 1 diastolic dysfunction. Pulmonary artery systolic pressure is 28 mmHg. Contrast injection was performed. Hospitalized at [facility] 08/25/2023 through 09/19/2023 for nonischemic heart [...] No dyspnea. No chest pain/pressure. Appetite is "ravenous." No falls in the last month. PMH, [...] ankles. SKIN: No jaundice or rash. NEUROLOGIC: machine adjuster leader II-XII are grossly intact. No focal motor [...] mutation positive. Left kidney biopsy 04/14/2023: A. 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 CARDIOLOGY: Echocardiogram 03/17/2023 done at [facility] demonstrated normal LV size with moderate concentric left ventricular hypertrophy and left ventricular systolic function normal with estimated ejection fraction 65%. Stage I diastolic dysfunction was observed. Pulmonary artery systolic pressure estimated at 28 mmHg. Echocardiogram same day demonstrated normal sinus rhythm with incomplete right bundle branch block ST and T wave abnormality, consider lateral ischemia, prolonged QT. Exercise stress test at [facility] 04/19/2023: Impression: 1. 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 Assessment: -The patient is a [...] which included preparing to see the patient, [id number] patient care, completing clinical documentation, obtaining and/or reviewing separately obtained history, performing a medically appropriate examination, counseling and educating the pat ient/family/caregiver, ordering medications, tests, or procedures, communicating with other HCPs (not separately reported), and communicating results to the patient/family/caregiver. Jose Hugo DO documented in this encounterPromedica [facility] History of Present illness Narrative* Gumaro Pérez DO - 10/23/2023 2:20 PM EST NEPHROLOGY CLINIC INITIAL VISIT PATIENT NAME: Edgar Henderson Consultation requested by Dr. Rodriguez for an opinion regarding ckd iv. My final recommendations will be communicated back to the requesting physician by way of shared Medical record or letter to requesting physician via US mail. 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 Now [place] down to 63 and m protein 0. Also has urinary retention with chronic senior noted on recent admission followed by urology. Had sindi as result that is reovery . Is on midodrine for orthostasis, his diuretics were also held. Startedon renvela, bicarb, senior with finasteride RENAL HX Biopsy Component FINAL DIAGNOSIS A. [place] left kidney biopsy: - [place] light chain amyloidosis extensively involving glomeruli, the [...] 2023 TIME: 12:01 PM documented in this encounterPromedica [facility]12-27-[facility] History of Past illness Narrative* Problem Noted Date Diagnosed Date Resolved Date Severe protein-calorie malnutrition 09/13/2023 10/02/2023 Hypervolemia 08/30/2023 2023 Cardiorenal syndrome with renal failure 08/29/2023 2023 Hypokalemia 08/29/2023 2023 Hypochloremia 08/29/2023 2023 Hydronephrosis of right kidney 08/29/2023 2023 Urinary retention 08/29/2023 2023 Acute decompensated heart failure 08/25/2023 2023 Fatigue 03/23/2023 05/27/2023 documented as of this encounter (statuses as of 10/24/2023) [facility] of Past illness Narrative* Problem Noted Date Diagnosed Date Resolved Date Severe protein-calorie malnutrition 09/13/2023 10/02/2023 Hypervolemia 08/30/2023 2023 Cardiorenal syndrome with renal failure 08/29/2023 2023 Hypokalemia 08/29/2023 2023 Hypochloremia 08/29/2023 2023 Hydronephrosis of right kidney 08/29/2023 2023 Urinary retention 08/29/2023 2023 Acute decompensated heart failure 08/25/2023 2023 Fatigue 03/23/2023 05/27/2023 documented as of this encounter (statuses as of 10/27/2023) [facility] of Past illness Narrative* Problem Noted Date Diagnosed Date Resolved Date Severe protein-calorie malnutrition 09/13/2023 10/02/2023 Hypervolemia 08/30/2023 2023 Cardiorenal syndrome with renal failure 08/29/2023 2023 Hypokalemia 08/29/2023 2023 Hypochloremia 08/29/2023 2023 Hydronephrosis of right kidney 08/29/2023 2023 Urinary retention 08/29/2023 2023 Acute decompensated heart failure 08/25/2023 2023 Fatigue 03/23/2023 05/27/2023 documented as of this encounter (statuses as of 10/31/2023) [facility] of Past illness Narrative* Problem Noted Date Diagnosed Date Resolved Date Severe protein-calorie malnutrition 09/13/2023 10/02/2023 Hypervolemia 08/30/2023 2023 Cardiorenal syndrome with renal failure 08/29/2023 2023 Hypokalemia 08/29/2023 2023 Hypochloremia 08/29/2023 2023 Hydronephrosis of right kidney 08/29/2023 2023 Urinary retention 08/29/2023 2023 Acute decompensated heart failure 08/25/2023 2023 Fatigue 03/23/2023 05/27/2023 documented as of this encounter (statuses as of 11/01/2023) [facility] of Past illness Narrative* Problem Noted Date Diagnosed Date Resolved Date Severe protein-calorie malnutrition 09/13/2023 10/02/2023 Hypervolemia 08/30/2023 2023 Cardiorenal syndrome with renal failure 08/29/2023 2023 Hypokalemia 08/29/2023 2023 Hypochloremia 08/29/2023 2023 Hydronephrosis of right kidney 08/29/2023 2023 Urinary retention 08/29/2023 2023 Acute decompensated heart failure 08/25/2023 2023 Fatigue 03/23/2023 05/27/2023 documented as of this encounter (statuses as of 11/02/2023) [facility] of Past illness Narrative* Problem Noted Date Diagnosed Date Resolved Date Severe protein-calorie malnutrition 09/13/2023 10/02/2023 Hypervolemia 08/30/2023 2023 Cardiorenal syndrome with renal failure 08/29/2023 2023 Hypokalemia 08/29/2023 2023 Hypochloremia 08/29/2023 2023 Hydronephrosis of right kidney 08/29/2023 2023 Urinary retention 08/29/2023 2023 Acute decompensated heart failure 08/25/2023 2023 Fatigue 03/23/2023 05/27/2023 documented as of this encounter (statuses as of 11/07/2023) [facility] Past illness Narrative* Problem Noted Date Diagnosed Date Resolved Date Severe protein-calorie malnutrition 09/13/2023 10/02/2023 Hypervolemia 08/30/2023 2023 Cardiorenal syndrome with renal failure 08/29/2023 2023 Hypokalemia 08/29/2023 2023 Hypochloremia 08/29/2023 2023 Hydronephrosis of right kidney 08/29/2023 2023 Urinary retention 08/29/2023 2023 Acute decompensated heart failure 08/25/2023 2023 Fatigue 03/23/2023 05/27/2023 documented as of this encounter (statuses as of 11/08/2023) [facility] illness Narrative* Problem Noted Date Diagnosed Date Resolved Date Severe protein-calorie malnutrition 09/13/2023 10/02/2023 Hypervolemia 08/30/2023 2023 Cardiorenal syndrome with renal failure 08/29/2023 2023 Hypokalemia 08/29/2023 2023 Hypochloremia 08/29/2023 2023 Hydronephrosis of right kidney 08/29/2023 2023 Urinary retention 08/29/2023 2023 Acute decompensated heart failure 08/25/2023 2023 Fatigue 03/23/2023 05/27/2023 documented as of this encounter (statuses as of 11/10/2023) [facility] illness Narrative* Problem Noted Date Diagnosed Date Resolved Date Severe protein-calorie malnutrition 09/13/2023 10/02/2023 Hypervolemia 08/30/2023 2023 Cardiorenal syndrome with renal failure 08/29/2023 2023 Hypokalemia 08/29/2023 2023 Hypochloremia 08/29/2023 2023 Hydronephrosis of right kidney 08/29/2023 2023 Urinary retention 08/29/2023 2023 Acute decompensated heart failure 08/25/2023 2023 Fatigue 03/23/2023 05/27/2023 documented as of this encounter (statuses as of 11/17/2023) [facility] illness Narrative* Problem Noted Date Diagnosed Date Resolved Date Severe protein-calorie malnutrition 09/13/2023 10/02/2023 Hypervolemia 08/30/2023 2023 Cardiorenal syndrome with renal failure 08/29/2023 2023 Hypokalemia 08/29/2023 2023 Hypochloremia 08/29/2023 2023 Hydronephrosis of right kidney 08/29/2023 2023 Urinary retention 08/29/2023 2023 Acute decompensated heart failure 08/25/2023 2023 Fatigue 03/23/2023 05/27/2023 documented as of this encounter (statuses as of 11/22/2023) [facility] illness Narrative* Problem Noted Date Diagnosed Date Resolved Date Severe protein-calorie malnutrition 09/13/2023 10/02/2023 Hypervolemia 08/30/2023 2023 Cardiorenal syndrome with renal failure 08/29/2023 2023 Hypokalemia 08/29/2023 2023 Hypochloremia 08/29/2023 2023 Hydronephrosis of right kidney 08/29/2023 2023 Urinary retention 08/29/2023 2023 Acute decompensated heart failure 08/25/2023 2023 Fatigue 03/23/2023 05/27/2023 documented as of this encounter (statuses as of 11/24/2023) [facility] Narrative* Problem Noted Date Diagnosed Date Resolved Date Severe protein-calorie malnutrition 09/13/2023 10/02/2023 Hypervolemia 08/30/2023 2023 Cardiorenal syndrome with renal failure 08/29/2023 2023 Hypokalemia 08/29/2023 2023 Hypochloremia 08/29/2023 2023 Hydronephrosis of right kidney 08/29/2023 2023 Urinary retention 08/29/2023 2023 Acute decompensated heart failure 08/25/2023 2023 Fatigue 03/23/2023 05/27/2023 documented as of this encounter (statuses as of 11/24/2023) [facility] Narrative* Problem Noted Date Diagnosed Date Resolved Date Severe protein-calorie malnutrition 09/13/2023 10/02/2023 Hypervolemia 08/30/2023 2023 Cardiorenal syndrome with renal failure 08/29/2023 2023 Hypokalemia 08/29/2023 2023 Hypochloremia 08/29/2023 2023 Hydronephrosis of right kidney 08/29/2023 2023 Urinary retention 08/29/2023 2023 Acute decompensated heart failure 08/25/2023 2023 Fatigue 03/23/2023 05/27/2023 documented as of this encounter (statuses as of 11/29/2023) [facility] Narrative* Problem Noted Date Diagnosed Date Resolved Date Severe protein-calorie malnutrition 09/13/2023 10/02/2023 Hypervolemia 08/30/2023 2023 Cardiorenal syndrome with renal failure 08/29/2023 2023 Hypokalemia 08/29/2023 2023 Hypochloremia 08/29/2023 2023 Hydronephrosis of right kidney 08/29/2023 2023 Urinary retention 08/29/2023 2023 Acute decompensated heart failure 08/25/2023 2023 Fatigue 03/23/2023 05/27/2023 documented as of this encounter (statuses as of 11/29/2023) [facility] Narrative* Problem Noted Date Diagnosed Date Resolved Date Severe protein-calorie malnutrition 09/13/2023 10/02/2023 Hypervolemia 08/30/2023 2023 Cardiorenal syndrome with renal failure 08/29/2023 2023 Hypokalemia 08/29/2023 2023 Hypochloremia 08/29/2023 2023 Hydronephrosis of right kidney 08/29/2023 2023 Urinary retention 08/29/2023 2023 Acute decompensated heart failure 08/25/2023 2023 Fatigue 03/23/2023 05/27/2023 documented as of this encounter (statuses as of 11/30/2023) [facility] Narrative* Problem Noted Date Diagnosed Date Resolved Date Severe protein-calorie malnutrition 09/13/2023 10/02/2023 Hypervolemia 08/30/2023 2023 Cardiorenal syndrome with renal failure 08/29/2023 2023 Hypokalemia 08/29/2023 2023 Hypochloremia 08/29/2023 2023 Hydronephrosis of right kidney 08/29/2023 2023 Urinary retention 08/29/2023 2023 Acute decompensated heart failure 08/25/2023 2023 Fatigue 03/23/2023 05/27/2023 documented as of this encounter (statuses as of 12/01/2023) [facility] Narrative* Problem Noted Date Diagnosed Date Resolved Date Severe protein-calorie malnutrition 09/13/2023 10/02/2023 Hypervolemia 08/30/2023 2023 Cardiorenal syndrome with renal failure 08/29/2023 2023 Hypokalemia 08/29/2023 2023 Hypochloremia 08/29/2023 2023 Hydronephrosis of right kidney 08/29/2023 2023 Urinary retention 08/29/2023 2023 Acute decompensated heart failure 08/25/2023 2023 Fatigue 03/23/2023 05/27/2023 documented as of this encounter (statuses as of 12/04/2023) [facility] Narrative* Problem Noted Date Diagnosed Date Resolved Date Severe protein-calorie malnutrition 09/13/2023 10/02/2023 Hypervolemia 08/30/2023 2023 Cardiorenal syndrome with renal failure 08/29/2023 2023 Hypokalemia 08/29/2023 2023 Hypochloremia 08/29/2023 2023 Hydronephrosis of right kidney 08/29/2023 2023 Urinary retention 08/29/2023 2023 Acute decompensated heart failure 08/25/2023 2023 Fatigue 03/23/2023 05/27/2023 documented as of this encounter (statuses as of 12/05/2023) [facility] Narrative* Problem Noted Date Diagnosed Date Resolved Date Severe protein-calorie malnutrition 09/13/2023 10/02/2023 Hypervolemia 08/30/2023 2023 Cardiorenal syndrome with renal failure 08/29/2023 2023 Hypokalemia 08/29/2023 2023 Hypochloremia 08/29/2023 2023 Hydronephrosis of right kidney 08/29/2023 2023 Urinary retention 08/29/2023 2023 Acute decompensated heart failure 08/25/2023 2023 Fatigue 03/23/2023 05/27/2023 documented as of this encounter (statuses as of 12/05/2023) [facility] Narrative* Problem Noted Date Diagnosed Date Resolved Date Severe protein-calorie malnutrition 09/13/2023 10/02/2023 Hypervolemia 08/30/2023 2023 Cardiorenal syndrome with renal failure 08/29/2023 2023 Hypokalemia 08/29/2023 2023 Hypochloremia 08/29/2023 2023 Hydronephrosis of right kidney 08/29/2023 2023 Urinary retention 08/29/2023 2023 Acute decompensated heart failure 08/25/2023 2023 Fatigue 03/23/2023 05/27/2023 documented as of this encounter (statuses as of 12/06/2023) [facility] Narrative* Problem Noted Date Diagnosed Date Resolved Date Severe protein-calorie malnutrition 09/13/2023 10/02/2023 Hypervolemia 08/30/2023 2023 Cardiorenal syndrome with renal failure 08/29/2023 2023 Hypokalemia 08/29/2023 2023 Hypochloremia 08/29/2023 2023 Hydronephrosis of right kidney 08/29/2023 2023 Urinary retention 08/29/2023 2023 Acute decompensated heart failure 08/25/2023 2023 Fatigue 03/23/2023 05/27/2023 documented as of this encounter (statuses as of 12/07/2023) [facility] Narrative* Problem Noted Date Diagnosed Date Resolved Date Severe protein-calorie malnutrition 09/13/2023 10/02/2023 Hypervolemia 08/30/2023 2023 Cardiorenal syndrome with renal failure 08/29/2023 2023 Hypokalemia 08/29/2023 2023 Hypochloremia 08/29/2023 2023 Hydronephrosis of right kidney 08/29/2023 2023 Urinary retention 08/29/2023 2023 Acute decompensated heart failure 08/25/2023 2023 Fatigue 03/23/2023 05/27/2023 documented as of this encounter (statuses as of 12/07/2023) [facility] Narrative* Problem Noted Date Diagnosed Date Resolved Date Severe protein-calorie malnutrition 09/13/2023 10/02/2023 Hypervolemia 08/30/2023 2023 Cardiorenal syndrome with renal failure 08/29/2023 2023 Hypokalemia 08/29/2023 2023 Hypochloremia 08/29/2023 2023 Hydronephrosis of right kidney 08/29/2023 2023 Urinary retention 08/29/2023 2023 Acute decompensated heart failure 08/25/2023 2023 Fatigue 03/23/2023 05/27/2023 documented as of this encounter (statuses as of 12/08/2023) [facility] Narrative* Problem Noted Date Diagnosed Date Resolved Date Severe protein-calorie malnutrition 09/13/2023 10/02/2023 Hypervolemia 08/30/2023 2023 Cardiorenal syndrome with renal failure 08/29/2023 2023 Hypokalemia 08/29/2023 2023 Hypochloremia 08/29/2023 2023 Hydronephrosis of right kidney 08/29/2023 2023 Urinary retention 08/29/2023 2023 Acute decompensated heart failure 08/25/2023 2023 Fatigue 03/23/2023 05/27/2023 documented as of this encounter (statuses as of 12/08/2023) [facility] Narrative* Problem Noted Date Diagnosed Date Resolved Date Severe protein-calorie malnutrition 09/13/2023 10/02/2023 Hypervolemia 08/30/2023 2023 Cardiorenal syndrome with renal failure 08/29/2023 2023 Hypokalemia 08/29/2023 2023 Hypochloremia 08/29/2023 2023 Hydronephrosis of right kidney 08/29/2023 2023 Urinary retention 08/29/2023 2023 Acute decompensated heart failure 08/25/2023 2023 Fatigue 03/23/2023 05/27/2023 documented as of this encounter (statuses as of 12/12/2023) [facility] Narrative* Problem Noted Date Diagnosed Date Resolved Date Severe protein-calorie malnutrition 09/13/2023 10/02/2023 Hypervolemia 08/30/2023 2023 Cardiorenal syndrome with renal failure 08/29/2023 2023 Hypokalemia 08/29/2023 2023 Hypochloremia 08/29/2023 2023 Hydronephrosis of right kidney 08/29/2023 2023 Urinary retention 08/29/2023 2023 Acute decompensated heart failure 08/25/2023 2023 Fatigue 03/23/2023 05/27/2023 documented as of this encounter (statuses as of 12/12/2023) [facility] Narrative* Problem Noted Date Diagnosed Date Resolved Date Severe protein-calorie malnutrition 09/13/2023 10/02/2023 Hypervolemia 08/30/2023 2023 Cardiorenal syndrome with renal failure 08/29/2023 2023 Hypokalemia 08/29/2023 2023 Hypochloremia 08/29/2023 2023 Hydronephrosis of right kidney 08/29/2023 2023 Urinary retention 08/29/2023 2023 Acute decompensated heart failure 08/25/2023 2023 Fatigue 03/23/2023 05/27/2023 documented as of this encounter (statuses as of 12/18/2023) [facility] Narrative* Problem Noted Date Diagnosed Date Resolved Date Severe protein-calorie malnutrition 09/13/2023 10/02/2023 Hypervolemia 08/30/2023 2023 Cardiorenal syndrome with renal failure 08/29/2023 2023 Hypokalemia 08/29/2023 2023 Hypochloremia 08/29/2023 2023 Hydronephrosis of right kidney 08/29/2023 2023 Urinary retention 08/29/2023 2023 Acute decompensated heart failure 08/25/2023 2023 Fatigue 03/23/2023 05/27/2023 documented as of this encounter (statuses as of 12/28/2023) [facility] Narrative* Problem Noted Date Diagnosed Date Resolved Date Severe protein-calorie malnutrition 09/13/2023 10/02/2023 Hypervolemia 08/30/2023 2023 Cardiorenal syndrome with renal failure 08/29/2023 2023 Hypokalemia 08/29/2023 2023 Hypochloremia 08/29/2023 2023 Hydronephrosis of right kidney 08/29/2023 2023 Urinary retention 08/29/2023 2023 Acute decompensated heart failure 08/25/2023 2023 Fatigue 03/23/2023 05/27/2023 documented as of this encounter (statuses as of 01/03/2024) [facility] Narrative* Problem Noted Date Diagnosed Date Resolved Date Severe protein-calorie malnutrition 09/13/2023 10/02/2023 Hypervolemia 08/30/2023 2023 Cardiorenal syndrome with renal failure 08/29/2023 2023 Hypokalemia 08/29/2023 2023 Hypochloremia 08/29/2023 2023 Hydronephrosis of right kidney 08/29/2023 2023 Urinary retention 08/29/2023 2023 Acute decompensated heart failure 08/25/2023 2023 Fatigue 03/23/2023 05/27/2023 documented as of this encounter (statuses as of 01/07/2024) [facility] History of Present illness Narrative* Erika Bermudez RN - 08/25/2023 9:[address] Hugo at chairside and spoke with patient. Patient aware no hydration here today and needs to goto the ER at [facility]. documented in this encounterPromedica [facility]12[facility] Nurse Note* Naa Green RN - 08/24/2023 1:29 PM EST Pt o/p as of 1315= 800ml. documented in this encounterPromedica [facility]12-[facility] History of Present illness Narrative* Jose Hugo DO - 08/24/2023 10:12 AM EST documented in this encounterPromedica Defiance [facility]12-04-[facility] Nurse Note* Dina Tolentino RN - [...] require immediate assistance. YES - Provided Chemotherapy "when to call" handouts YES - Preventing infection. YES - [...] N/A Dina Tolentino RN documented in this encounterPromedica [facility]11-30-[facility] History of Present illness Narrative* Jose Hugo DO - 08/17/2023 4:20 PM EST Diagnosis: 1) IgM kappa HPI: The patient is a 72 yo male with a PMH significant for BPH. Had labs 03/17/2023 for upcoming annual appointment with Dr. Herbert. Per Dr. Herbert's recent eveluation: "Patient ws recently sent to [facility] due to SINDI. BUN was 49 [...] he felt like he was swimming in [place]. No shortness of breath. Denied chest heaviness, tightness or palpitations." Echo at [facility]: Interpretation Summary Normal LV size. Moderate [...] management. Interim history: I feel good Appetite, "ravenous." Taste much better. No nasuea. 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 Thin-appearing and in no acute distress. [...] ankle. SKIN: No jaundice or rash. NEUROLOGIC: machine adjuster leader II-XII are grossly intact. No focal motor weakness. MUSCULOSKELETAL: Weak in the thighs bilaterally. LABORATORY DATA: Component Latest Ref Rng & Units 04/26/2023 05/23/2023 05/31/2023 08/02/2023 [place] Free, Serum 3.3 - 19.4 mg/L 199.4 [...] mutation positive. Left kidney biopsy 04/14/2023: A. 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 CARDIOLOGY: Echocardiogram 03/17/2023 done at [facility] demonstrated normal LV size with moderate concentric left ventricular hypertrophy and left ventricular systolic function normal with estimated ejection fraction 65%. Stage I diastolic dysfunction was observed. Pulmonary artery systolic pressure estimated at 28 mmHg. Echocardiogram same day demonstrated normal sinus rhythm with incomplete right bundle branch block ST and T wave abnormality, consider lateral ischemia, prolonged QT. Exercise stress test at [facility] 04/19/2023: Impression: 1. 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 -BP improved and more stable. -[place] light chain results reviewed with him. Since [...] which included preparing to see the patient, [id number] patient care, completing clinical documentation, obtaining and/or reviewing separately obtained history, and performing a medically appropriate examination . Jose Hugo DO documented in this encounterPromedica [facility]11-29-[facility] History of Present illness Narrative* Krystal Mata RN - 08/16/2023 9:01 AM EST Assessment unchanged from 08/15/[address] Hugo documented in this encounterPromedica Defiance [facility]11-28-[facility]23 History of Present illness Narrative* Jose Hugo, - 08/15/2023 8:55 AM EST Diagnosis: 1) IgM kappa HPI: The patient is a 72 yo male with a PMH significant for BPH. Had labs 03/17/2023 for upcoming annual appointment with Dr. Herbert. Per Dr. Herbert's recent eveluation: "Patient ws recently sent to [facility] due to SINDI. BUN was 49 [...] of breath. Denied chest heaviness, tightness or palpitations." Echo at [facility]: Interpretation Summary Normal LV size. Moderate [...] management. Interim history: I feel good Appetite, "ravenous." Taste much better. No nasuea. 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 SKIN: No jaundice or rash. NEUROLOGIC: machine adjuster leader II-XII are grossly intact. No focal motor weakness. MUSCULOSKELETAL: Weak in the thighs bilaterally. LABORATORY DATA: Component Latest Ref Rng & Units 04/26/2023 05/23/2023 05/31/2023 08/02/2023 [place] Free, Serum 3.3 - 19.4 mg/L 199.4 [...] mutation positive. Left kidney biopsy 04/14/2023: A. 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 CARDIOLOGY: Echocardiogram 03/17/2023 done at [facility] demonstrated normal LV size with moderate concentric left ventricular hypertrophy and left ventricular systolic function normal with estimated ejection fraction 65%. Stage I diastolic dysfunction was observed. Pulmonary artery systolic pressure estimated at 28 mmHg. Echocardiogram same day demonstrated normal sinus rhythm with incomplete right bundle branch block ST and T wave abnormality, consider lateral ischemia, prolonged QT. Exercise stress test at [facility] 04/19/2023: Impression: 1. 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 -Was seen at [facility] Her doctor the lengths recommendation, "would go ahead with last 2 dosesof rituxan [...] which included preparing to see the patient, [id number] patient care, completing clinical documentation, obtaining and/or reviewing separately obtained history, performing a medically appropriate examination, counseling and educating the pat ient/family/caregiver, ordering medications, tests, or procedures, communicating with other HCPs (not separately reported), and communicating results to the patient/family/caregiver. Jose Hugo DO documented in this encounterPromedica Defiance Regional Hospital11-21-2023 Miscellaneous Notes* Telephone Encounter - Cass [...] 0.5mg Bumex once a day. Pt saw chemist proteins on 07/31. Please advise. documented in this encounterPromedica Defiance Regional Hospital11-13-2023 Instructions* Patient Instructions* Chester Patel MD - 07/31/2023 2:25 PM EST Follow up Sep 04 in the amyloid clinic with an EKG and echocardiogram documented in this encounterPromedica Defiance Regional Hospital11-13-2023 History of Present illness Narrative* Adolfo Jaimse MD - 07/31/2023 1:55 PM EST Images from the original note were not included. 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 No CO as of yet by amyloid hematologic criteria. [...] CC: Dr. Jose Hugo. documented in this encounterPromedica Defiance Regional Hospital11-13-2023 History of Present illness Narrative* Chester Patel MD - 07/31/2023 1:46 PM EST Images from the original note were not included. 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 Patient feels much better than prior visit. His appetite has improved, has more energy than before.He had lost about 11 lbs but has gained about 5 lbs back per chart review. He continues to complainof LE edema, "I had to change my showes because of swelling". He also mentions worsening of his legweakness. [...] biopsy was done on 04/14/23 which showed [place] light chain amyloidosis extensively involving glomeruli, the [...] with concerns of cardiac involvement. He feels "extreme fatigue". 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 Chester Kwan MD [facility] Section Of Heart Failure and Cardiac Transplant Medicine [facility] Desk J3-[address] [place] [address] documented in this encounterPromedica Defiance Regional Hospital11-07-2023 Miscellaneous Notes* Telephone Encounter - Jose [...] no refill on bottle. documented in this encounterPromedica Defiance Regional Hospital11-01-2023 History of Present illness Narrative* Amparo Meeks RN - 07/19/2023 8:07 AM EDT No changes to assessment from OV yesterday with Dr. Hugo. Amparo Meeks RN documented in this encounterPromedica Defiance Regional Hospital10-31-2023 History of Present illness Narrative* Jose Hugo DO - 07/18/2023 9:11 AM EDT Diagnosis: 1) IgM kappa HPI: The patient is a 72 yo male with a PMH significant for BPH. Had labs 03/17/2023 for upcoming annual appointment with Dr. Herbert. Per Dr. Herbert's recent eveluation: "Patient ws recently sent to [facility] due to SINDI. BUN was 47 [...] he felt like he was swimming in [place]. No shortness of breath. Denied chest heaviness, tightness or palpitations." Echo at [facility]: Interpretation Summary Normal LV size. 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 SKIN: No jaundice or rash. NEUROLOGIC: machine adjuster leader II-XII are grossly intact. No focal motor [...] mutation positive. Left kidney biopsy 04/14/2023: A. 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 CARDIOLOGY: Echocardiogram 03/17/2023 done at [facility] demonstrated normal LV size with moderate concentric left ventricular hypertrophy and left ventricular systolic function normal with estimated ejection fraction 65%. Stage I diastolic dysfunction was observed. Pulmonary artery systolic pressure estimated at 28 mmHg. Echocardiogram same day demonstrated normal sinus rhythm with incomplete right bundle branch block ST and T wave abnormality, consider lateral ischemia, prolonged QT. Exercise stress test at [facility] 04/19/2023: Impression: 1. 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 Portions of this documentation were copied and pasted from previous office visit notes in order to provide a cohesive continuity of the history. The note has been reviewed and edited and updated as necessary. I spent a total of 25 minutes on the date of the service which included preparing to see the patient, nifz-oz-[id number] patient care, completing clinical documentation, obtaining and/or reviewing separately obtained history, performing a medically appropriate examination, counseling and educating the pat ient/family/caregiver, ordering medications, tests, or procedures, communicating with other HCPs (not separately reported), and communicating results to the patient/family/caregiver. Jose Hugo DO documented in this encounterPromedica Defiance Regional Hospital10-11-2023 Miscellaneous Notes* Telephone Encounter - Prema [...] low BP. Please advise. documented in this encounterPromedica Defiance Regional Hospital10-10-2023 Miscellaneous Notes* Telephone Encounter - Kirstin Og RN - 06/27/2023 3:44 PM EDT Pt called and is notified of providers message and instructions. Pt voices understanding. Kirstin Og, RN * Telephone Encounter - [...] be no interactions. Pt uses [facility] in [place]. Nina Tang LPN * Telephone Encounter - [...] 20 mg a day. documented in this encounterPromedica Defiance Regional Hospital10-05-2023 Miscellaneous Notes* Telephone Encounter - Madisyn [...] patient and discussed that his breathing is "fine". Does not weigh himself daily but gets weighed here at infusion center on days of treatment. Weight was 119lb on 06/19/2023. Patient does state he has more swelling in his ankles, feet and it is moving up his "shins". Patient does feel that his fatigue is "better", his arms feel better, but his legs [...] call back to either the nurse line [phone] or the office at [phone] to discuss weights and breathing. Madisyn Powell [...] shortness of breath? Thanks documented in this encounterPromedica Defiance Regional Hospital09-19-2023 Miscellaneous Notes* Telephone Encounter - Dina Tolentino RN - 06/06/2023 3:24 PM EDT [facility] Care Coordination FOLLOW-UP NOTE Patient identified by [...] daily however he does not have a blender helper. Going to the store is too much work for him and he is not sure what to buy on hovelstay. Patient stated the "bullet" brand of blenders was recommended and he is overwhelmed by the variety of choices. Patient was encouraged to pick a basic blender helper that doesn't have a ton of attachments [...] appointment with Kirstin. Will reach out to SW to see if there are any meal services available for patient. Care Coordination Plan: Will follow up as needed. Dina Tolentino RN June 06, 2023 documented in this encounterPromedica Defiance Regional Hospital09-15-2023 History of Present illness Narrative* Elma [...] 2023 TIME: 3:22 PM documented in this encounterPromedica Defiance Regional Hospital09-14-2023 Miscellaneous Notes* Telephone Encounter - Hayley [...] In Department of CARDIOLOGY. documented in this encounterPromedica Defiance Regional Hospital09-13-2023 History of Present illness Narrative* Lo [...] 31, 2023 Lo Hare RN Research Nurse - [place] [phone] documented in this encounterPromedica Defiance Regional Hospital09-11-2023 History of Present illness Narrative* Chester Patel MD - 05/29/2023 3:22 PM EDT Difficult to understand what is his volume status. His NT pro BNP continues to rise. Diuretics stopped due to SINDI. Will order a Right Heart Catherization. Chester Kwan MD documented in this encounterPromedica Defiance Regional Hospital09-09-2023 Instructions* Patient Instructions* Jose Miguel Herbert [...] bananas and peanut butter. 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 [place]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) - ICD9: [...] R79.89 - will be seeing Endo in Dec and do not feel this needs moved [...] which included preparing to see the patient, [id number] patient care, completing clinical documentation, performing a medically appropriate examination, counseling and educating the patient/family/caregiver and ordering medications, tests, or procedures. Jose Miguel Herbert MD documented in this encounterPromedica Defiance Regional Hospital09-06-2023 History of Present illness Narrative* Denise Reveles RN - 05/24/2023 10:20 AM EDT Patient came in appearing to have difficulty walking to treatment chair. He denied feeling lightheaded or dizzy but stated that he was "extremely fatigued" and he has been feeling this was for "quitesome time" now. His BP manually was 82/50 with a HR of 80. I discussed vitals with Dr. Hugo who wanted orthostatic vitals taken (See flow sheet). After ortho vitals were obtained, 500ml NaCL was order per to run over 2 hours. documented in this encounterPromedica Defiance Regional Hospital08-25-2023 History of Present illness Narrative* Gricel Bruno LPN - 05/12/2023 8:44 AM EDT Scan on 05/12/2023 8:32 AM by Provider, KELBY Sesay: Consultation - documented in this encounterPromedica Defiance Regional Hospital08-24-2023 Miscellaneous Notes* Telephone Encounter - Jose Hugo DO - 05/11/2023 8:29 AM EDT Signed. Jose Hugo DO * Telephone Encounter - Cass Jacobs LPN - 05/11/2023 8:15 AM EDT Please file new lab order. Lab accidentally michelle this but it has to be drawn at a hospital lab. Cass Jacobs LPN documented in this encounterPromedica Defiance Regional Hospital08-22-2023 Miscellaneous Notes* Telephone Encounter - Kirstin [...] as long as they were in the [facility] they can see all the information, which they are. I told him providers office don't typically send information to other providers unless it was because they requested it or initiated a labor procedure that resulted in this. Kirstin Og, COLT * Telephone Encounter - Jose Miguel Herbert MD - 05/08/2023 11:17 PM EDT Let patient know his TSH is low compared to be normal last time but his T3 is still low like last time and this should make the TSH be elevated. The free T4 was ok again. Referral placed to see Endo. documented in this encounterPromedica Defiance Regional Hospital08-15-2023 Instructions* Patient Instructions* Chester Patel MD [...] months in the amyloid clinic [facility] documented in this encounterPromedica Defiance Regional Hospital08-15-2023 Miscellaneous Notes* Telephone Encounter - Cynthia [...] stated if he has to walk somewhere "its a big effort" due to leg weakness. Patient stated he [...] protocol. Dina Tolentino RN documented in this encounterPromedica Defiance Regional Hospital08-14-2023 History of Present illness Narrative* Chester Patel MD - 05/01/2023 5:01 PM EDT Images from the original note were not included. 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 He feels "extreme fatigue". Feels that his legs "are made of rubber" and they limit his ambulaiton.He feels shortness [...] is a 72 year old male from [place], [place] here for cardiac evaluation, abnormal stresstest. 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 Skin: No clubbing, no cyanosis. Eyes: Extra ocular movements intact Oropharynx: Teeth in good repair. 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 Quinteros stage [...] non-medical management as above. Chester Kwan MD [facility] Section Of Heart Failure and Cardiac Transplant Medicine Heart [facility] Desk J3-[address] [place] [address] documented in this encounterPromedica Defiance Regional Hospital08-14-2023 Miscellaneous Notes* Telephone Encounter - Ventura Jiang - 05/01/2023 9:18 AM EDT Called and left message that Dr Reyes would like to see him up here tomorrow at 4pm, requested elli to confirm this is OK and I will scheduled. documented in this encounterPromedica Defiance Regional Hospital08-10-2023 Miscellaneous Notes* Telephone Encounter - Roland [...] the original note were not included. Ashlie Mccall; Shanon Noel RN 2 hours ago (10:35 AM) MS Mccormick could do 05/03 @ 4pm in [place] * Telephone Encounter - Gina Frausto RN [...] could see him quickly. documented in this encounterPromedica Defiance Regional Hospital08-09-2023 Miscellaneous Notes* Telephone Encounter - Frank Gonzáles RN - 04/26/2023 4:07 PM EDT Pt returned call and given provider's message below with verbalized understanding. Patient agreeable. Transferred to pss. * Telephone Encounter - Cathie Rubin MA - 04/26/2023 1:50 PM EDT When patient returns call please transfer to rehabilitation aide/scheduler to have appointment scheduled with Cardiology [facility] for a possibly heart cath. [facility]; [facility]. Cathie Rubin MA * Telephone Encounter - Cathie Rubin MA - 04/26/2023 1:07 PM EDT Left message for patient to contact office. Cathie Rubin MA; Contacted [facility] and they are scheduling out [...] Scan on 04/21/2023 12:52 PM by Provider, External, KELBY: Stress Test Cathie Rubin MA documented in this encounterPromedica Defiance Regional Hospital08-09-2023 Miscellaneous Notes* Telephone Encounter - Enmanuel Alicia - 04/26/2023 9:31 AM EDT The patient is active with Medicare A & B along with MMO Medicare Supplement. Patient financialresponsibility is $0 for each treatment in 2022 since there is no OOP to be reached. I left a voicemail for the PT to return my call if they had further questions. documented in this encounterPromedica Defiance Regional Hospital08-07-2023 Miscellaneous Notes* Telephone Encounter - Rand Mora - 04/24/2023 10:56 AM EDT Updated notes * Telephone Encounter - Jose Hugo DO - 04/23/2023 2:40 PM EDT Add BNP and troponin T when has labs 04/26. Jose Hugo DO documented in this encounterPromedica Defiance Regional Hospital08-07-2023 Miscellaneous Notes* Telephone Encounter - Muriel Linares RN - 04/24/2023 9:08 AM EDT Spoke with patient, states understanding that ok to get his 2nd shingles and that there is a Rx forAcyclovir at pharmacy. Denies further questions. He states that he has not found a ride to treatment that start this week. States that he has discussed with social work lecturerDenise and states "she was worthless". Stating he is not able to find [...] RN - 04/21/2023 4:28 PM EDT Reviewed Zofran with patient. Patient informed he will receive dexamethasone here in office. Patient aware he can go to his dental appointment on 05/02/23. Dr. Hugo- patient is asking if he can get his second shingles vaccine? Thank you. Dina Tolentino RN * Telephone Encounter - Dina Tolentino RN - 04/21/2023 4:26 PM EDT [place] Worker Pre Chemo Patient identified by name and date of . YES Confirmed date and time for chemotherapy ? YES Other appointments (labs, imaging) discussed? 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 I informed him it [...] you. Dina Tolentino RN documented in this encounterPromedica Defiance Regional Hospital08-04-2023 Miscellaneous Notes* Telephone Encounter - Denise [...] Mother is and Father is Child/Children: No family day carer arrangements needed: Na Siblings: 1 sister () Grandchild(arian): none Home Health Provider: No Community Services: No Marta Identified: No Mormon/Spirituality: Unknown Are these practices or beliefs that may affect or influence treatment? No EMPLOYMENT/FINANCIAL/HEALTH INSURANCE: Employment: Retired Income source: Social Security & Investments Insurance: Medicare with co-insurance Prescription coverage: Yes Is the patient appropriate for referral to [facility] COBRA Assistance program? No Financial Distress: No : No FOOD INSECURITY Within the past year, [...] Yes, 2021 Health Care Durable Power of Machine Zipper Trimmer: Yes Scanned into EPIC: Yes, 2021 Guardianship: [...] he has already done some research on [place] transportation. SW and pt discussed the [place] transit, [employer], [place] taxi service. Pt reports he had pre viously posted a listing on [employer] asking for transportation which was successful. He reports he will attempt that again. Pt reported he will look into visiting [employer] and other community transportation services as well. [...] needed. Follow up appointment with SW in: RAUL Farah documented in this encounterPromedica Defiance Regional Hospital08-03-2023 Nurse Note* Dina Tolentino RN - [...] require immediate assistance. YES - Provided Chemotherapy "when to call" handouts YES - Preventing infection. YES - [...] magnet. YES Mentioned that his legs feel "rubbery" at baseline x 1 year. Patient has a metallic taste in his mouth, fatigue is 10/10 on some days. Needs help with nutrition, "I can't even boil an egg". Patient agreeable to nutrition consult. Transportation concerns-messaged SW. Time Spent: 70 minutes REFERRAL (RECOMMENDATION): Nutrition and Social Work Dina Tolentino, RN documented in this encounterPromedica Defiance Regional Hospital08-03-2023 Miscellaneous Notes* Telephone Encounter - Cynthia [...] 1 scheduled. Naa Randle documented in this encounterPromedica Defiance Regional Hospital08-02-2023 Miscellaneous Notes* Telephone Encounter - Dina Tolentino RN - 04/19/2023 4:45 PM EDT Met with patient and introduced myself. Patient was given a My Journey binder with chemocare information, office contact information, thermometer, and additional chemotherapy resource booklets. Patient aware this nurse will review on scheduled appointment date. Dina Tolentino RN documented in this encounterPromedica Defiance Regional Hospital08-02-2023 History of Present illness Narrative* Jose Hugo DO - 04/19/2023 3:59 PM EDT Diagnosis: 1) IgM kappa HPI: The patient is a 72 yo male with a PMH significant for BPH. Had labs 03/17/2023 for upcoming annual appointment with Dr. Herbert. Per Dr. Herbert's recent eveluation: "Patient ws recently sent to [facility] due to SINDI. BUN was 49 [...] of breath. Denied chest heaviness, tightness or palpitations." Echo at [facility]: Interpretation Summary Normal LV size. Moderate [...] will on file 01/27/2022 DPA: Bari Betancur (assistant city attorney) Medicare annual wellness visit, subsequent 01/27/2022 Medicare [...] (97.5 F), weight 53.1 kg (117 lb), [id number] %. Thin and pale-appearing and in no [...] No jaundice or rash. No petechiae. NEUROLOGIC: machine adjuster leader II-XII are grossly intact. No focal motor [...] Abs Lymph 1.00 - 4.00 k/uL 2.51 Mcdonald% % 7.5 Abs Mcdonald <0.87 k/uL 0.55 Eosin% % 1.9 Abs [...] Negative Ketones, Urine Trace, Negative Negative Specific [place], Ur 1.005 - 1.030 1.011 Hemoglobin/Blood,Ur Negative, [...] mutation positive. Left kidney biopsy 04/14/2023: A. 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 CARDIOLOGY: Echocardiogram 03/17/2023 done at [facility] demonstrated normal LV size with moderate concentric left ventricular hypertrophy and left ventricular systolic function normal with estimated ejection fraction 65%. Stage I diastolic dysfunction was observed. Pulmonary artery systolic pressure estimated at 28 mmHg. Echocardiogram same day demonstrated normal sinus rhythm with incomplete right bundle branch block ST and T wave abnormality, consider lateral ischemia, prolonged QT. Exercise stress test at [facility] 04/19/2023: Impression: 1. 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 Jose Hugo DO documented in this encounterPromedica Defiance [facility] Hospital08-02-2023 Miscellaneous Notes* Telephone Encounter - Cynthia [...] message asking patient to contact the office. [facility] has already scheduled patient for an OV today at 4:00. Cass Jacobs LPN * Telephone Encounter - Jose Hugo DO - 04/18/2023 7:40 PM EDT Please let him know results of bone marrow and kidney biopsy available. Need to start him on therapy AVI. Double book him tomorrow at 4 pm. No labs. Jose Hugo DO documented in this encounterPromedica Defiance Regional Hospital08-01-2023 History of Present illness Narrative* Margie [...] 18, 2023 9:35 AM documented in this encounterPromedica Defiance Regional Hospital07-28-2023 NoteHNO ID: [id number] Author: Kati Gilbert RN Service: ? Author Type: Registered Nurse Type: Nursing Progress Note Filed: 04/14/2023 11:01 AM Note Text: Pt refusing IV due to refusing IV sedation.[facility] 04-10-2023 History of Present illness Narrative* Cathie Rubin MA - 04/10/2023 2:58 PM EDT Scan on 04/10/2023 11:05 AM by Provider, KELBY Sesay: Miscellaneous Lab Cathie Rubin MA documented in this encounterPromedica Defiance Regional Hospital07-20-2023 History of Present illness Narrative* Jose Hugo, - 04/06/2023 9:30 AM EDT Patient referred [...] Dr. Herbert. Per Dr. Herbert's recent eveluation: "Patient ws recently sent to [facility] due to SINDI. BUN was 49 [...] of breath. Denied chest heaviness, tightness or palpitations." Echo at [facility]: Interpretation Summary Normal LV size. Moderate [...] will on file 01/27/2022 DPA: Bari Betancur (assistant city attorney) Medicare annual wellness visit, subsequent 01/27/2022 Medicare [...] temperature source Temporal, height 170 cm (5' 6.93"), weight 52.2 kg (115 lb), SpO2 100 [...] No jaundice or rash. No petechiae. NEUROLOGIC: machine adjuster leader II-XII are grossly intact. No focal motor [...] Abs Lymph 1.00 - 4.00 k/uL 2.51 Mcdonald% % 7.5 Abs Mcdonald <0.87 k/uL 0.55 Eosin% % 1.9 Abs [...] Negative Ketones, Urine Trace, Negative Negative Specific Linden, Ur 1.005 - 1.030 1.011 Hemoglobin/Blood,Ur Negative, [...] which included preparing to see the patient, rlbb-qk-wupq patient care, completing clinical documentation, obtaining and/or reviewing separately obtained history, performing a medically appropriate examination, counseling and educating the pat ient/family/caregiver, ordering medications, tests, or procedures, communicating with other HCPs (not separately reported), independently interpreting results (not separately reported), communicatingresults to the patient/family/caregiver, and care coordination (not separately reported). Jose Hugo DO documented in this encounterPromedica Defiance Regional Hospital07-20-2023 History of Present illness Narrative* Cynthia Petersen RT(R) - 04/06/2023 8:30 AM EDT Radiology [...] 06, 2023 9:18 AM documented in this encounterPromedica Defiance Regional Hospital07-19-2023 Miscellaneous Notes* Telephone Encounter - Kirstin Og RN - 04/05/2023 4:56 PM EDT Pt called and is notified of providers results and instructions. Pt voices understanding. Pt will get Folate done when he goes to see Dr Hugo tomorrow. Faxed stress test orders, demographics, and last OV to [facility] scheduling at fax # [phone]. Kirstin Og, RN * Telephone Encounter - Gricel Bruno [...] is seeing renal for. documented in this encounterPromedica Defiance Regional Hospital07-19-2023 Miscellaneous Notes* Telephone Encounter - Rand [...] Devora Cifuentes M.D., Ph.D documented in this encounterPromedica Defiance Regional Hospital07-17-2023 History of Present illness Narrative* Margie [...] 03, 2023 3:52 PM documented in this encounterPromedica Defiance Regional Hospital07-17-2023 History of Present illness Narrative* Nathalie Lopez RPFT - 04/03/2023 1:04 PM EDT PULM FUNCTION SMARTBLOCK: Provider: Jose Miguel Herbert MD Assisting Tech: Nathalie Lopez RPFT Spirometry w/BD: 1 documented in this encounterPromedica Defiance Regional Hospital07-13-2023 History of Present illness Narrative* Swathi [...] 30, 2023 2:19 PM documented in this encounterPromedica Defiance Regional Hospital07-06-2023 History of Past illness Narrative* Problem Noted Date Diagnosed Date Resolved Date Fatigue 03/23/2023 05/27/2023 documented as of this encounter (statuses as of 05/27/2023) [facility] History of Past illness Narrative* Problem Noted Date Diagnosed Date Resolved Date Fatigue 03/23/2023 05/27/2023 documented as of this encounter (statuses as of 05/30/2023) [facility] of Past illness Narrative* Problem Noted Date Diagnosed Date Resolved Date Fatigue 03/23/2023 05/27/2023 documented as of this encounter (statuses as of 05/31/2023) [facility] of Past illness Narrative* Problem Noted Date Diagnosed Date Resolved Date Fatigue 03/23/2023 05/27/2023 documented as of this encounter (statuses as of 05/31/2023) [facility] of Past illness Narrative* Problem Noted Date Diagnosed Date Resolved Date Fatigue 03/23/2023 05/27/2023 documented as of this encounter (statuses as of 05/31/2023) [facility] of Past illness Narrative* Problem Noted Date Diagnosed Date Resolved Date Fatigue 03/23/2023 05/27/2023 documented as of this encounter (statuses as of 06/01/2023) [address]06-2023 History of Past illness Narrative* Problem Noted Date Diagnosed Date Resolved Date Fatigue 03/23/2023 05/27/2023 documented as of this encounter (statuses as of 06/03/2023) [address]06-2023 History of Past illness Narrative* Problem Noted Date Diagnosed Date Resolved Date Fatigue 03/23/2023 05/27/2023 documented as of this encounter (statuses as of 06/07/2023) [facility] of Past illness Narrative* Problem Noted Date Diagnosed Date Resolved Date Fatigue 03/23/2023 05/27/2023 documented as of this encounter (statuses as of 06/07/2023) [address]06-2023 History of Past illness Narrative* Problem Noted Date Diagnosed Date Resolved Date Fatigue 03/23/2023 05/27/2023 documented as of this encounter (statuses as of 06/24/2023) [facility] of Past illness Narrative* Problem Noted Date Diagnosed Date Resolved Date Fatigue 03/23/2023 05/27/2023 documented as of this encounter (statuses as of 06/28/2023) [facility] of Past illness Narrative* Problem Noted Date Diagnosed Date Resolved Date Fatigue 03/23/2023 05/27/2023 documented as of this encounter (statuses as of 06/28/2023) [address]06-2023 History of Past illness Narrative* Problem Noted Date Diagnosed Date Resolved Date Fatigue 03/23/2023 05/27/2023 documented as of this encounter (statuses as of 06/28/2023) [facility] of Past illness Narrative* Problem Noted Date Diagnosed Date Resolved Date Fatigue 03/23/2023 05/27/2023 documented as of this encounter (statuses as of 07/18/2023) [address]06-2023 History of Past illness Narrative* Problem Noted Date Diagnosed Date Resolved Date Fatigue 03/23/2023 05/27/2023 documented as of this encounter (statuses as of 07/19/2023) [facility] of Past illness Narrative* Problem Noted Date Diagnosed Date Resolved Date Fatigue 03/23/2023 05/27/2023 documented as of this encounter (statuses as of 07/23/2023) [address]06-2023 History of Past illness Narrative* Problem Noted Date Diagnosed Date Resolved Date Fatigue 03/23/2023 05/27/2023 documented as of this encounter (statuses as of 07/23/2023) [address]06-2023 History of Past illness Narrative* Problem Noted Date Diagnosed Date Resolved Date Fatigue 03/23/2023 05/27/2023 documented as of this encounter (statuses as of 07/23/2023) [address]06-2023 History of Past illness Narrative* Problem Noted Date Diagnosed Date Resolved Date Fatigue 03/23/2023 05/27/2023 documented as of this encounter (statuses as of 07/23/2023) [address]06-2023 History of Past illness Narrative* Problem Noted Date Diagnosed Date Resolved Date Fatigue 03/23/2023 05/27/2023 documented as of this encounter (statuses as of 07/23/2023) [address]06-2023 History of Past illness Narrative* Problem Noted Date Diagnosed Date Resolved Date Fatigue 03/23/2023 05/27/2023 documented as of this encounter (statuses as of 07/26/2023) [address]06-2023 History of Past illness Narrative* Problem Noted Date Diagnosed Date Resolved Date Fatigue 03/23/2023 05/27/2023 documented as of this encounter (statuses as of 07/27/2023) [facility] illness Narrative* Problem Noted Date Diagnosed Date Resolved Date Fatigue 03/23/2023 05/27/2023 documented as of this encounter (statuses as of 08/01/2023) [facility] illness Narrative* Problem Noted Date Diagnosed Date Resolved Date Fatigue 03/23/2023 05/27/2023 documented as of this encounter (statuses as of 08/01/2023) [address]06-2023 History of Past illness Narrative* Problem Noted Date Diagnosed Date Resolved Date Fatigue 03/23/2023 05/27/2023 documented as of this encounter (statuses as of 08/02/2023) [address]06-2023 History of Past illness Narrative* Problem Noted Date Diagnosed Date Resolved Date Fatigue 03/23/2023 05/27/2023 documented as of this encounter (statuses as of 08/08/2023) [address]06-2023 History of Past illness Narrative* Problem Noted Date Diagnosed Date Resolved Date Fatigue 03/23/2023 05/27/2023 documented as of this encounter (statuses as of 08/15/2023) [address]06-2023 History of Past illness Narrative* Problem Noted Date Diagnosed Date Resolved Date Fatigue 03/23/2023 05/27/2023 documented as of this encounter (statuses as of 08/16/2023) [address]06-2023 History of Past illness Narrative* Problem Noted Date Diagnosed Date Resolved Date Fatigue 03/23/2023 05/27/2023 documented as of this encounter (statuses as of 08/18/2023) [address]06-2023 History of Past illness Narrative* Problem Noted Date Diagnosed Date Resolved Date Fatigue 03/23/2023 05/27/2023 documented as of this encounter (statuses as of 08/22/2023) [address]06-2023 History of Past illness Narrative* Problem Noted Date Diagnosed Date Resolved Date Fatigue 03/23/2023 05/27/2023 documented as of this encounter (statuses as of 08/22/2023) [address]06-2023 History of Past illness Narrative* Problem Noted Date Diagnosed Date Resolved Date Fatigue 03/23/2023 05/27/2023 documented as of this encounter (statuses as of 08/23/2023) [address]06-2023 History of Past illness Narrative* Problem Noted Date Diagnosed Date Resolved Date Fatigue 03/23/2023 05/27/2023 documented as of this encounter (statuses as of 08/25/2023) [address]06-2023 History of Past illness Narrative* Problem Noted Date Diagnosed Date Resolved Date Fatigue 03/23/2023 05/27/2023 documented as of this encounter (statuses as of 08/25/2023) [address]06-2023 History of Past illness Narrative* Problem Noted Date Diagnosed Date Resolved Date Fatigue 03/23/2023 05/27/2023 documented as of this encounter (statuses as of 09/02/2023) [address]06-2023 History of Present illness Narrative* Jose Miguel Herbert MD - 03/23/2023 1:36 PM EDT Chief Complaint Patient presents with: Hospital F/U [facility] Edgar Henderson is a 72 year old male who presents here today for hospital follow up. Patient ws recently sent to [facility] due to SINDI. BUN was 49 [...] he felt like he was swimming in [place]. No shortness of breath. Denied chest heaviness, [...] will on file 01/27/2022 DPA: Bari Betancur (assistant city attorney) Medicare annual wellness visit, subsequent 01/27/2022 Medicare Part B: 08/18/2017 Last done: 01/27/2022 Previous Surgical History PAST SURGICAL HISTORY Procedure Laterality Date COLONOSCOPY FLX DX W/COLLJ SPEC WHEN PFRMD 08/07/08 COLONOSCOPY FLX DX W/COLLJ SPEC WHEN PFRMD 06/07/2018 Colonoscopy RPR 1ST INGUN HRNA AGE 5 YRS/> REDUCIBLE Hernia repair, inguinal, bilateral SIGMOIDOSCOPY FLX DX W/COLLJ SPEC BR/WA IF PFRMD 2003 Sigmoidoscopy Family History FAMILY HISTORY Problem Relation [...] MG/5 ML INTRAVENOUS SYRINGE - INSERT IV (IL,KS) - IV DISCONTINUE - HEAVY METALS SCRN [...] CK CREATINE KINASE Recent chest x-ray at [facility] was normal. F/u in 4 weeks medicare wellness I spent a total of 52 minutes on the date of the service which included preparing to see the patient, hoat-cl-cpow patient care, completing clinical documentation, performing a medically appropriate examination, counseling and educating the patient/family/caregiver and ordering medications, tests, or procedures. Jose Miguel Herbert MD documented in this encounterPromedica Defiance [facility] Hospital07-01-2023 Discharge summary Author Jonathan Fernando [facility] March 18, 2023 11:43am Note Date/Time March 18, 2023 11:06 am [facility] Medical Records Department [address] [place] [address] Discharge Summary 03/18/23 1106 MR#: [id number] Acct: [id number] Name: EDGAR HENDERSON Rep #:[id number] : 1950 72 From: Jonathan Fernando DO PCP: Dr. Jose Miguel Herbert MD Status:ADM IN Location: [place] [address]- 1 Providers Date of Admission: 03/17/23 Date of Discharge: 03/18/23 Primary Care Physician: Dr. Jose Miguel Herbert MD Reason For Visit: SIDNI, ELEVATED TROPONIN Diagnosis Discharge Diagnosis (1) Creatinine [...] was seen in the emergency room at [facility] after he came there for evaluation at [...] % (Auto) 56.1, Lymph % (Auto) 31.5, Mcdonald % (Auto) 9.9, Eos % (Auto) 1.3, [...] Clarity Clear, Urine pH 6.5, Ur Specific Linden 1.010, Urine Protein 100 H, Urine Glucose [...] You will need follow up with a Inbound Ingredient Logistics Specialist (kidney specialist) as an outpatient, Dr. Freeman's [...] Self Care Charges/Coding Visit Charges Inpatient E&M: 99084 Disch Hosp 03/18/23 1143 <Electronically signed by Jonathan Fernando DO> Cosigner Signature (if applicable): CC: Dr. Jose Miguel Herbert MD; Dr. Jonathan Fernando DO~ Signed [facility] Work Phone: 1(657) 479-921107-01-2023 Discharge summary Author Jonathan Fernando [facility] March 18, 2023 11:06am Note Date/Time March 18, 2023 10:55 am [facility] Medical Records Department [address] [place] [address] Instructions for Home/Discharge Instructions 03/18/23 1053 MR#: [id number] Acct: [id number] Name: EDGAR HENDERSON Rep #:[id number] : [...] You will need follow up with a Inbound Ingredient Logistics Specialist (kidney specialist) as an outpatient, Dr. Freeman's [...] Dr. Jose Miguel Herbert MD ~ Signed [facility] Work Phone: 1(847) 810-817406-30-2023 Discharge summary Author Jonathan Estrada [facility] March 17, 2023 9:22pm Note Date/Time March 17, 2023 11:2 3am [facility] Medical Records Department [address] [place] [address] Emergency Department Summary 03/17/23 MR#: [id number] Acct: [id number] Name: EDGAR HENDERSON Rep #:[id number] : 1950 72 From: Jonathan Estrada MD PCP: Dr. Jose Miguel Herbert MD Status:ADM IN Location: [place] [address] HPI <TAJ Ochoa - Last Filed: 03/17/23 13:25> [...] does not smoke, does not use alcohol. PFSH <TAJ Ochoa - Last Filed: 03/17/23 13:25> [facility] Medical History (Updated 03/17/23 @ 12:38 by [...] % (Auto) 56.1 Lymph % (Auto) 31.5 Mcdonald % (Auto) 9.9 Eos % (Auto) 1.3 [...] Normal sinus rhythm, rate of 63 bpm, CO interval is 78 ms, QRS duration 102 [...] chest pain, patient's EKG shows no active IA, ACS. After talking with the patient, the patient does need to be admitted to the hospital. Patient needs to be worked up for the acute kidney injury, as well asthe elevated troponin. Patient is agreeable with the plan. Vital signs remained stable. Patient be admitted to hospitalist. <Dr. Jonathan Estrada MD - Last Filed: 03/17/23 11:28> [facility] Narrative Medical decision making narrative: I have [...] % (Auto) 56.1 Lymph % (Auto) 31.5 Mcdonald % (Auto) 9.9 Eos % (Auto) 1.3 [...] Exertional dyspnea, Anemia, Elevated troponin Disposition Disposition: Acute Care Hospital [facility] What to do if you have Problems For any increased pain, shortness of breath, bleeding, nausea or vomiting, chest pain, or any unexpected problems, contact your Primary Care Provider. Call [facility] ([phone]) or report to the closest Emergency Room. Call 911 if necessary. 03/17/232121 <Electronically signed by Jonathan Estrada MD> Cosigner Signature (if applicable): 03/17/23 1325 <Electronically signed by Jose VANG> CC: Dr. Jose Miguel Herbert MD ~ Signed [facility] Work Phone: 1(233) 152-800406-30-2023 History and physical note Author Jonathan [facility] March 17, 2023 5:57pm Note Date/Time March 17, 2023 5:45 pm [facility] Medical Records Department [address] [place] [address] H&P Exam - Hospitalist 03/17/23 1740 MR#: [id number] Acct: [id number] Name: EDGAR HENDERSON Rep #:[id number] : 1950 72 From: Jonathan Fernando DO PCP: Dr. Jose Miguel Herbert MD Status:ADM IN Location: [address] HPI - General General Date of Admission: 03/17/23 Date of Service: 03/17/23 Chief Complaint: Abnormal outpatient labs HPI Narrative EDGAR HENDERSON, is a 72 M who presents to the emergency room at [facility] after being sent in at the [...] be monitored, cardiac enzymes will be cycled. [facility] Medical History BPH (benign prostatic hyperplasia) Guttate [...] % (Auto) 56.1, Lymph % (Auto) 31.5, Mcdonald % (Auto) 9.9, Eos % (Auto) 1.3, [...] Clarity Clear, Urine pH 6.5, Ur Specific Linden 1.010, Urine Protein 100 H, Urine Glucose [...] 55 minutes Charges/Coding Visit Charges Inpatient E&M: 19955 Init Hosp L2 03/17/23 1757 <Electronically signed by Jonathan Fernando DO> Cosigner Signature (if applicable): CC: Dr. Jose Miguel Herbert MD; Dr. Jonathan Fernando DO~ Signed [facility] Work Phone: 1(769) 420-113806-30-2023 Miscellaneous Notes* Telephone Encounter - Sheree Fabian PA-C - 03/17/2023 10:55 AM EDT Noted. Thanks. Sheree Fabian PA-C * Telephone Encounter - Manuela Gomez RN - 03/17/2023 10:46 AM EDT Called pt with Dr. Herbert's and Sheree Fabian's msgs. Pt still hesitant to go to ER. Both myselfand Kirstin ColoradoMelchor spoke with pt and told him the [...] agreed to head to theER now. Called [facility] ER and spoke with Ana nurse [...] renal failure and will need IV fluids. Sheere Fabian PA-C * Telephone Encounter - MARY [...] hours. Patient also states his legs feel "rubbery" and all his muscles feel weak. * [...] on daily basis (estimate)? documented in this encounterPromedica Defiance Regional Hospital02-24-2023 Miscellaneous Notes* Telephone Encounter - Carolyn Norris LPN - 11/11/2022 1:13 PM EST Patient notified and verbalizes understanding. * Telephone Encounter - Jose Miguel Herbert MD - 11/11/2022 1:01 PM EST Let patient know labs placed. Will need to be fasting and give a urine. * Telephone Encounter - Katherine Hardy [facility] - 11/11/2022 11:34 AM EST Patient would like a PSA included and asking if he will need a urine sample. If so please advise sohe can be prepared. * Telephone Encounter - Katherine Hardy [facility] - 11/11/2022 11:32 AM EST Patient is schedule for medicare wellness in March and requesting lab orders to complete prior to this visit. Please place orders. documented in this encounterPromedica Defiance Regional Hospital05-12-2022 Instructions* Patient Instructions* Jose Miguel Herbert MD - 01/27/2022 1:32 PM EDT If you want to get the a Tdap (tetnus booster) Check with the health dept (usuallt $45) or local pharmacy. If you want the shingrix vaccine for the prevention of shingles check with a local pharmacy. documented in this encounterPromedica Defiance Regional Hospital05-12-2022 History of Present illness Narrative* Jose [...] Pulse 68 Resp16 Ht 170.2 cm (5' 7") Wt 54.9 kg (121 lb) BMI 18.95 [...] Concerns: PSA concern; skin on left side sikhism (may be slightly larger and scaly, no [...] W/COLLJ SPEC BR/WA IF PFRMD 2003 Sigmoidoscopy Family History FAMILY HISTORY Problem Relation [...] Pulse 68 Resp16 Ht 170.2 cm (5' 7") Wt 54.9 kg (121 lb) BMI 18.95 kg/m BP 134/74 Pulse 68 Resp 16 Ht 170.2 cm (5' 7") Wt 54.9 kg (121 lb) BMI 18.95 [...] Abs Lymph 1.00 - 4.00 k/uL 2.79 Mcdonald% % 11.9 Abs Mcdonald <0.87 k/uL 0.90 (H) Eosin% % 1.2 [...] Negative Negative Ketones, Urine Negative Negative Specific Linden, Ur 1.005 - 1.030 1.010 Hemoglobin/Blood,Ur Negative [...] which included preparing to see the patient, [id number]-oc-sekd patient care, completing clinical documentation, performing a medically appropriate examination, counseling and educating the patient/family/caregiver and ordering medications, tests, or procedures. Jose Miguel Herbert MD documented in this encounterPromedica Defiance Regional Hospital05-03-2022 Miscellaneous Notes* Telephone Encounter - PORTIA [...] when labs are placed. documented in this encounterSelect [facility] Author Colleen Iniguez [facility] Note Date/Time January 14, 2025 6:4 3pm [facility] Medical Records Department [address] [place] [address] Anesthesia Postop Eval II 01/14/251646 MR#: [id number] Acct: [id number] Name: EDGAR HENDERSON Rep #:[id number] : 1950 74 From: Colleen azul CRNA PCP: Dr. Jose Miguel Herbert MD Status:REG SDC Y Race: C Location: [address] Anesthesia Postop Eval I Sum Postop Eval Completion status Anesthesia document: Postop Eval 1 completed: Yes Anesthesia Postop Eval I Summary Anesthesia Postop Eval I Summary: Anesthesia Postop Eval I: Assessment Summary Airway patent Yes 01/14/25 16:38 [email or web address] Spontaneous unlabored Yes 01/14/25 16:38 ROD [email or web address] respirations Mental status Awake 01/14/25 16:38 ROD [email or web address] nausea No 01/14/25 16:38 ROD [email or web address] Vomiting No 01/14/25 16:38 ROD [email or web address] Anesthesia Postop Eval I: Fluid Summary Crystalloid volume administer 400 01/14/25 16:38 ROD [email or web address].LMIL (ml) Colloids volume administered ( ml) Blood Product volume administered (ml) Total IV fluid infused 400 01/14/25 16:38 [email or web address] Anesthesia Postop Eval I: Summary Notes Anesthesia Complication No 01/14/25 16:38 [email or web address] Anesthesia Complication Comment: Post-operative progress note Anesthesia: Postop Eval II Evaluation Mental status: Awake and Calm Pain Level: 0 nausea: No Vomiting: No Complications Anesthesia Complication: No 01/14/251646 <Electronically signed by Colleen cole ROD BUSTER> Date _ Colleen Iniguez CRNA Cosigner Signature: Date CC: ~ Signed [facility] Work Phone: Evaluation note* Diagnosis Family history [...] disorder of prostate [facility] Medicare annual wellness visit, [...] Other specified counseling [facility] Diagnosis Encounter for screening for diabetes mellitus- Primary Screening for diabetes mellitus Medication management Encounter for long-term (current) use of other medications Prostate disorder Unspecified disorder of prostate Encounter for lipid screening for cardiovascular disease Screening for lipoid disorders NSAID long-term use Encounter for long-term (current) use of non-steroidal anti-inflammatories [facility] Diagnosis Encounter for lipid screening for cardiovascular disease- Primary Screening for lipoid disorders Prostate disorder Unspecified disorder of prostate Medication management Encounter for long-term (current) use of other medications BPH without obstruction/lower urinary tract symptoms Hypertrophy of prostate without urinary obstruction and other lower urinary tract symptoms (LUTS) [facility] Diagnosis Onset Date Resolution Status Acute kidney injury acute Anemia acute Elevated troponin acute Exertional dyspnea acute [facility] Work Phone: Evaluation note* Diagnosis Onset Date Resolution Status Acute kidney injury acute Anemia acute Creatinine elevation acute Elevated troponin acute Exertional dyspnea acute [facility] Work Phone: Evaluation note* Diagnosis Unintended weight [...] malaise and fatigue [facility] Diagnosis SOB (shortness of breath) Shortness of breath [facility] Diagnosis Monoclonal (M) protein disease, multiple 'M' protein- Primary Monoclonal paraproteinemia [facility] Diagnosis Macrocytosis- Primary Other specified diseases of blood and blood-forming organs Abnormal thyroid blood test Nonspecific abnormal results of thyroid function study Anemia, unspecified type [facility] Diagnosis 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 SINDI (acute kidney injury) (HCC) Acute kidney failure, unspecified Monoclonal (M) protein disease, multiple 'M' protein Monoclonal paraproteinemia [place] macroglobulinemia (HCC) Macroglobulinemia [facility] Diagnosis Encounter for education- Primary Counseling NOS [facility] Diagnosis Onset Date Resolution Status Creatinine elevation acute Elevated troponin resolved [facility] Work Phone: Evaluation note* Diagnosis 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) Other amyloidosis SINDI (acute kidney injury) (HCC) Acute kidney failure, unspecified documented in this encounter [facility] note* Diagnosis Lymphoplasmacytic lymphoma (HCC)- Primary [facility]* Diagnosis Nonspecific ST-T wave electrocardiographic changes- Primary Nonspecific abnormal electrocardiogram (ECG) (EKG) Light chain (AL) amyloidosis (HCC) Dyspnea, unspecified [facility] Diagnosis 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) [place]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) Other amyloidosis [facility] Diagnosis 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) SINDI (acute kidney injury) (HCC) Acute kidney failure, unspecified [facility] Diagnosis Nonspecific ST-T wave electrocardiographic changes- Primary Nonspecific abnormal electrocardiogram (ECG) (EKG) SOB (shortness of breath) Shortness of breath Elevated troponin level Other abnormal blood chemistry Decreased stamina Other malaise and fatigue Abnormal stress ECG Other nonspecific abnormal cardiovascular system function study [facility] Diagnosis Acute on chronic heart failure with preserved ejection fraction (HFpEF) (HCC)- Primary [facility] Diagnosis 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) SINDI (acute kidney injury) (HCC) Acute kidney failure, unspecified [facility] Diagnosis 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) [facility] Diagnosis 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) SINDI (acute kidney injury) (HCC) Acute kidney failure, unspecified [facility] Diagnosis Abnormal thyroid blood test Nonspecific abnormal results of thyroid function study [facility] Diagnosis SOB (shortness of breath)- Primary Shortness of breath Acute on chronic heart failure with preserved ejection fraction (HFpEF) (HCC) SINDI (acute kidney injury) (HCC) Acute kidney failure, unspecified Stage 3b chronic kidney disease (HCC) NICM (nonischemic cardiomyopathy) (HCC) Other primary cardiomyopathies 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 [facility] Diagnosis 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) SINDI (acute kidney injury) (HCC) Acute kidney failure, unspecified Stage 3b chronic kidney disease (HCC) AL amyloidosis (HCC) Other amyloidosis [facility] Diagnosis Medicare annual wellness visit, subsequent- Primary Routine general medical examination at a health care facility 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) Stage 3b [...] Other abnormal glucose [facility] Diagnosis NICM (nonischemic cardiomyopathy) (HCC)- Primary Other primary cardiomyopathies Acute on chronic heart failure with preserved ejection fraction (HFpEF) (HCC) NICM (nonischemic cardiomyopathy) (HCC) Other primary cardiomyopathies [facility] Diagnosis 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) SINDI (acute kidney injury) (HCC) Acute kidney failure, unspecified 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) Other amyloidosis NICM (nonischemic cardiomyopathy) (HCC) Other primary cardiomyopathies [facility] Diagnosis 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) SINDI (acute kidney injury) (HCC) Acute kidney failure, unspecified Malaise and fatigue Other malaise and fatigue NICM (nonischemic cardiomyopathy) (HCC) Other primary cardiomyopathies [facility] Diagnosis AL amyloidosis (HCC)- Primary Other amyloidosis SOB (shortness of breath) Shortness of breath Acute on chronic heart failure with preserved ejection fraction (HFpEF) (HCC) [facility] Diagnosis 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) SINDI (acute kidney injury) (HCC) Acute kidney failure, unspecified [facility] Diagnosis Elevated hemoglobin A1c Other abnormal blood chemistry Hyperlipidemia, mixed Mixed hyperlipidemia [facility]* Diagnosis 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) SINDI (acute kidney injury) (HCC) Acute kidney failure, unspecified [facility] Diagnosis [place] light chain deposition disease (HCC)- Primary [place] amyloidosis (HCC) Other amyloidosis Stage 3b chronic kidney disease (HCC) [facility] Diagnosis 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) SINDI (acute kidney injury) (HCC) Acute kidney failure, unspecified [facility] Diagnosis [place] macroglobulinemia (HCC) Macroglobulinemia [facility]* Diagnosis Unintended weight loss Loss of weight Fatigue, unspecified type Decreased stamina Other malaise and fatigue Lack of appetite Anorexia [facility] Diagnosis Unintended weight loss Loss of weight Fatigue, unspecified type Decreased stamina Other malaise and fatigue SOB (shortness of breath) Shortness of breath Lack of appetite Anorexia [facility]* Diagnosis Monoclonal (M) protein disease, multiple 'M' protein Monoclonal paraproteinemia [facility] Diagnosis Elevated hemoglobin A1c- Primary Other abnormal blood chemistry 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) SINDI (acute kidney injury) (HCC) Acute kidney failure, unspecified [facility]* Diagnosis NICM (nonischemic cardiomyopathy) (HCC)- Primary Other primary cardiomyopathies Chronic heart failure with preserved ejection fraction (HFpEF) (HCC) Hyperlipidemia, mixed Mixed hyperlipidemia Stage 3b chronic kidney disease (HCC) 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 Bilateral leg edema Edema [facility] Diagnosis AL amyloidosis (HCC)- Primary Other amyloidosis [facility]* Diagnosis 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) SINDI (acute kidney injury) (HCC) Acute kidney failure, unspecified [facility] Diagnosis AL amyloidosis (HCC)- Primary Other 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 amyloidosis Renal amyloidosis (HCC) Other amyloidosis [facility] Diagnosis 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) Other amyloidosis Cardiac amyloidosis (HCC) Other amyloidosis [facility]* Diagnosis Encounter for education- Primary Counseling NOS [facility] Diagnosis 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) Other amyloidosis [facility] Diagnosis Cardiac amyloidosis (HCC)- Primary Other amyloidosis 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) SINDI (acute kidney injury) (HCC) Acute kidney failure, unspecified Stage 3b chronic kidney disease (HCC) [place] amyloidosis (HCC) Other amyloidosis [facility] Diagnosis Lymphoplasmacytic lymphoma (HCC)- Primary [facility] Diagnosis Chronic diastolic congestive heart failure (HCC)- Primary Chronic diastolic heart failure [facility] Diagnosis Amyloid kidney (HCC) (HCC)- Primary Other amyloidosis CKD (chronic kidney disease), stage IV (HCC) Chronic kidney disease, Stage IV (severe) Obstructive uropathy Urinary obstruction, unspecified [facility] Diagnosis 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) (HCC) Other amyloidosis Cardiac amyloidosis (HCC) Other amyloidosis [facility] Diagnosis Cardiac amyloidosis (HCC)- Primary Other amyloidosis 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) SINDI (acute kidney injury) (HCC) Acute kidney failure, unspecified [facility] Diagnosis Cardiac amyloidosis (HCC)- Primary Other amyloidosis 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) SINDI (acute kidney injury) (HCC) Acute kidney failure, unspecified [facility] Diagnosis Cardiac amyloidosis (HCC)- Primary Other amyloidosis 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) SINDI (acute kidney injury) (HCC) Acute kidney failure, unspecified [facility] Diagnosis 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) (HCC) Other amyloidosis Cardiac amyloidosis (HCC) Other amyloidosis [facility] Diagnosis HFrEF (heart failure with reduced ejection fraction) (HCC)- Primary Heart failure, unspecified [facility] Diagnosis Encounter for health education- Primary [facility] Diagnosis CKD (chronic kidney disease), stage V (HCC)- Primary Chronic kidney disease, Stage V Metabolic bone disease Other disorders of bone and cartilage [facility] Diagnosis Cardiac amyloidosis (HCC)- Primary Other amyloidosis 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) SINDI (acute kidney injury) (HCC) Acute kidney failure, unspecified [facility] Diagnosis 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) (HCC) Other amyloidosis Cardiac amyloidosis (HCC) Other amyloidosis [facility]* Diagnosis Cardiac amyloidosis (HCC)- Primary Other amyloidosis 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) SINDI (acute kidney injury) (HCC) Acute kidney failure, unspecified [facility] Diagnosis Hyperlipidemia, mixed- Primary Mixed hyperlipidemia Elevated hemoglobin A1c Other abnormal blood chemistry AL amyloidosis (HCC) Other 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 amyloidosis Chronic diastolic congestive heart failure (HCC) Chronic diastolic heart failure NICM (nonischemic cardiomyopathy) (HCC) Other primary cardiomyopathies [place] light chain deposition disease (HCC) CKD (chronic [...] with depressed mood [facility] Diagnosis Cardiac amyloidosis (HCC)- Primary Other amyloidosis 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) SINDI (acute kidney injury) (HCC) Acute kidney failure, unspecified documented in this encounter [facility] note* Diagnosis CKD (chronic kidney disease), stage V (HCC)- Primary Chronic kidney disease, Stage V [facility] Diagnosis CKD (chronic kidney disease), stage V (HCC)- Primary Chronic kidney disease, Stage V [facility] Diagnosis CKD (chronic kidney disease), stage V (HCC)- Primary Chronic kidney disease, Stage V CKD (chronic kidney disease), stage V (HCC) Chronic kidney disease, Stage V [facility] Diagnosis CKD (chronic kidney disease), stage V (HCC) Chronic kidney disease, Stage V CKD (chronic kidney disease), stage V (HCC) Chronic kidney disease, Stage V [facility] Diagnosis Encounter for immunization- Primary Need for other specified prophylactic vaccination against single bacterial disease CKD (chronic kidney disease), stage V (HCC) Chronic kidney disease, Stage V [facility] noteNo assessment information availableWCoshocton [facility] Work Phone: Evaluation note* Diagnosis Light chain (AL) amyloidosis (HCC)- Primary [facility]* Diagnosis 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) [facility] Diagnosis 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) Other amyloidosis [place] light chain deposition disease (HCC) Other specified hypotension [facility]* Diagnosis SINDI (acute kidney injury) (HCC)- Primary Acute kidney failure, unspecified 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) Other amyloidosis [facility] Diagnosis SINDI (acute kidney injury) (HCC)- Primary Acute kidney failure, unspecified 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) Other amyloidosis [facility]* Diagnosis SINDI (acute kidney injury) (HCC)- Primary Acute kidney failure, unspecified 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) Other amyloidosis [facility] Diagnosis 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) Other amyloidosis [facility] Diagnosis SINDI (acute kidney injury) (HCC)- Primary Acute kidney failure, unspecified 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) Other amyloidosis [facility] Diagnosis CKD (chronic kidney disease) stage 5, GFR less than 15 ml/min (HCC)- Primary Chronic kidney disease, Stage V SINDI (acute kidney injury) (HCC) Acute kidney failure, unspecified 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) Other amyloidosis [facility] Diagnosis 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) CKD (chronic kidney disease) stage 5, GFR less than 15 ml/min (HCC) Chronic kidney disease, Stage V [facility]* Diagnosis Lymphocytic lymphoma (HCC)- Primary Lymphosarcoma, unspecified site, extranodal and solid organ sites [facility]* Diagnosis SINDI (acute kidney injury) (HCC)- Primary Acute kidney failure, unspecified 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) Other amyloidosis [facility] Diagnosis [place] amyloidosis (HCC)- Primary Other amyloidosis Chronic heart failure with preserved ejection fraction (HFpEF) (HCC) NICM (nonischemic cardiomyopathy) (HCC) Other primary cardiomyopathies Hyperlipidemia, mixed Mixed hyperlipidemia Chronic diastolic congestive heart failure (HCC) Chronic diastolic heart failure Cardiac amyloidosis (HCC) Other amyloidosis ESRD (end stage renal disease) (HCC) End stage renal disease 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) [facility] Diagnosis Lymphocytic lymphoma (HCC)- Primary Lymphosarcoma, unspecified site, extranodal and solid organ sites [facility] Diagnosis 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) Other amyloidosis [facility] Diagnosis Lymphoplasmacytic lymphoma (HCC)- Primary Cardiomyopathy, unspecified type (HCC) [facility] Diagnosis Lymphocytic lymphoma (HCC)- Primary Lymphosarcoma, unspecified site, extranodal and solid organ sites [facility] Diagnosis Lymphocytic lymphoma (HCC)- Primary Lymphosarcoma, unspecified site, extranodal and solid organ sites [facility] Encounter for Medicare annual wellness exam- Primary Routine general medical examination at a health care facility Elevated hemoglobin A1c Other abnormal blood chemistry Chronic diastolic congestive heart failure (HCC) Chronic diastolic heart failure Hyperlipidemia, mixed Mixed hyperlipidemia [facility] Medicare annual wellness visit, subsequent- [...] renal (HCC) Secondary hyperparathyroidism (of renal origin) [place] 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Anemia, unspecified type Benign prostatic hyperplasia with urinary obstruction Dysfunction of left eustachian tube Dysfunction of Eustachian tube Encounter for screening examination for other mental health and behavioral disorders Encounter for immunization Need for other specified prophylactic vaccination against single bacterial disease [facility] Diagnosis Elevated hemoglobin A1c- Primary Other abnormal blood chemistry Hyperlipidemia, mixed Mixed hyperlipidemia Abnormal thyroid blood test Nonspecific abnormal results of thyroid function study Prediabetes Other abnormal glucose [facility] Diagnosis Lymphocytic lymphoma (HCC)- Primary Lymphosarcoma, unspecified site, extranodal and solid organ sites [facility] Diagnosis 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) Other amyloidosis Cardiac amyloidosis (HCC) Other amyloidosis [facility] Diagnosis AL amyloidosis (HCC)- Primary Other amyloidosis Heart failure with preserved ejection fraction, unspecified HF chronicity (HCC) Cardiomyopathy, unspecified type (HCC) Abnormal EKG Nonspecific abnormal electrocardiogram (ECG) (EKG) [facility] Diagnosis 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) [facility]* Diagnosis Lymphocytic lymphoma (HCC)- Primary Lymphosarcoma, unspecified site, extranodal and solid organ sites [facility] Diagnosis Lymphocytic lymphoma (HCC)- Primary Lymphosarcoma, unspecified site, extranodal and solid organ sites documented [facility] Diagnosis 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) Other amyloidosis [facility] Diagnosis Lymphocytic lymphoma (HCC)- Primary Lymphosarcoma, unspecified site, extranodal and solid organ sites documented in this [facility]* Diagnosis Cardiac amyloidosis (HCC)- Primary Other amyloidosis Chronic diastolic congestive heart failure (HCC) Chronic diastolic heart failure NICM (nonischemic cardiomyopathy) (HCC) Other primary cardiomyopathies Hyperlipidemia, mixed Mixed hyperlipidemia ESRD (end stage renal disease) (HCC) End stage renal disease 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 [facility] this [facility] Diagnosis 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) Other amyloidosis [facility] this [facility] Diagnosis Lymphocytic lymphoma (HCC)- Primary Lymphosarcoma, unspecified site, extranodal and solid organ sites documented in this [facility]* Diagnosis 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 Continue your current medications and treatments. Follow-up with either Dr. Hugo or your primary care physician Dr. Rodriguez as needed or return if worse.[facility] Work Phone: Reason for referral (narrative)* Diagnostic Procedure Only (Routine) - Authorized Specialty Diagnoses / Procedures Referred By Tripp t Referred To Contact XR IMAGING Diagnoses Monoclonal (M) protein disease, multiple 'M' protein Procedures XR BONE SURVEY ROUTINE RADIOLOGIC EXAMINATION OSSEOUS SURVEY COMPL Jose Hugo DO [address] [place] [address] Xr Imaging Referral ID Status Reason Start Date Expiration Date Visits Requested Visits Authorized [id number] Authorized Auto-Generat ed Referral 04/05/2023 05/04/2024 1 1 * Consult, Test, Treat (Routine) - Pending Review Specialty Diagnoses / Procedures Referred By Contac t Referred To Contact Diagnoses Monoclonal (M) protein disease, multiple 'M' protein Procedures CONSULT TO HEMATOLOGY/ONCOLOGY OFFICE/OUTPATIENT NEW HIGH MDM 60-74 MINUTES Jose Miguel Herbert MD [address] [place] [address] Referral ID Status Reason Start Date Expiration Date Visits Requested Visits Authorized [id number] Pending Review PCP Requested Referral 04/04/2023 04/03/2024 1 1 [facility] for referral (narrative)* Outpatient Procedure (Routine) - Pending Review Specialty Diagnoses / Procedures Referred By Contac t Referred To Contact [facility] [place] Diagnoses Acute on chronic heart failure with preserved ejection fraction (HFpEF) (HCC) Procedures ECG COMPLETE ECG ROUTINE ECG W/LEAST 12 LDS W/I&R Chester Patel MD [address] [place] [address] [facility][Note 3] [facility] [place] [address] [place] [address] Referral ID Status Reason Start Date Expiration Date Visits Requested Visits Authorized [id number] Pending Review Auto-Generat ed Referral 04/27/2023 04/26/2024 1 1 [facility] for referral (narrative)* Outpatient Procedure (Routine) - Pending Review Specialty Diagnoses / Procedures Referred By Contac t Referred To Contact [facility]ART [facility] [place] Diagnoses SOB (shortness of breath) Acute on chronic heart failure with preserved ejection fraction (HFpEF) (HCC) Procedures ECHO ECHO TTHRC R-T 2D W/WOM-MODE COMPL SPEC&COLR D Chester Patel MD [address] [place] [address] [facility] [place] [address] [place] [address] Referral ID Status Reason Start Date Expiration Date Visits Requested Visits Authorized [id number] Pending Review Auto-Generat ed Referral 05/02/2023 05/01/2024 1 1 [facility] for referral (narrative)* Diagnostic Procedure Only (Routine) - Closed Specialty Diagnoses / Procedures Referred By Contac t Referred To Contact US IMAGING Diagnoses Unintended weight loss Fatigue, unspecified type Decreased stamina Lack of appetite Procedures US ABDOMEN COMPLETE US ABDOMINAL REAL TIME W/IMAGE DOCUMENTATION Jose Miguel Herbert MD [address] [place] [address] Us Imaging [id number] Referral ID Status Reason Start Date Expiration Date V isits Requested Visits Authorized [id number] Closed Auto-Generate d Referral 03/23/2023 04/21/2024 1 1 [facility] for referral (narrative)* Diagnostic Procedure Only (Routine) - Closed Specialty Diagnoses / Procedures Referred By Contac t Referred To Contact XR IMAGING Diagnoses Monoclonal (M) protein disease, multiple 'M' protein Procedures XR BONE SURVEY ROUTINE RADIOLOGIC EXAMINATION OSSEOUS SURVEY COMPL Jose Hugo DO [address] [place] [address] Xr Imaging [id number] Referral ID Status Reason Start Date Expiration Date V isits Requested Visits Authorized [id number] Closed Auto-Generate d Referral 04/05/2023 05/04/2024 1 1 [facility] for referral (narrative)* Outpatient Procedure (Routine) - Authorized Specialty Diagnoses / Procedures Referred By Contac t Referred To [facility] Diagnoses NICM (nonischemic cardiomyopathy) (HCC) Chronic heart failure with preserved ejection fraction (HFpEF) (HCC) Procedures ECG COMPLETE ECG ROUTINE ECG W/LEAST 12 LDS W/I&R Chester Patel MD [address] [place] [address] [facility][Note 3] [facility] [place] [address] [place] [address] Referral ID Status Reason Start Date Expiration Date Visits Requested Visits Authorized [id number] Authorized Auto-Generat ed Referral 3 07/30/2024 1 1 * Outpatient Procedure (Routine) - Authorized Specialty Diagnoses / Procedures Referred By Contac t Referred To Contact [facility] Diagnoses NICM (nonischemic cardiomyopathy) (HCC) Chronic heart failure with preserved ejection fraction (HFpEF) (HCC) Procedures ECHO ECHO TTHRC R-T 2D W/WOM-MODE COMPL SPEC&COLR D Chester Patel MD [address] [employer] [address] [address] [facility][Note 3] [facility] [place] [address] [place] [address] Referral ID Status Reason Start Date Expiration Date Visits Requested Visits Authorized [id number] Authorized Auto-Generat ed Referral 3 07/30/2024 1 1 * Transition of Care (Routine) - Ref Not Required Specialty Diagnoses / Procedures Referred By Contac t Referred To Contact Diagnoses NICM (nonischemic cardiomyopathy) (HCC) Chronic heart failure with preserved ejection fraction (HFpEF) (HCC) Procedures CARDIOVASCULAR MEDICINE OP FOLLOW UP APPT ORDER Chester Patel MD [address] [place] [address] Referral ID Status Reason Start Date Expiration Date Visits Requested Visits Authorized [id number] Ref Not Required PCP Requested Referral 3 07/30/2024 1 1 [facility] for referral (narrative)* Diagnostic Procedure Only (Routine) - Pending Review Specialty Diagnoses / Procedures Referred By Contac t Referred To Contact XR IMAGING Diagnoses CKD (chronic kidney disease), stage V (HCC) Procedures XR CHEST 1V FRONTAL RADIOLOGIC EXAM [place]ST [place] [address] [place] [address] Xr Imaging [place] [address] Referral ID Status Reason Start Date Expiration Date Visits Requested Visits Authorized [id number] Pending Review Auto-Generat ed Referral 12/05/2023 01/03/2025 1 1 [facility] for referral (narrative)* Outpatient Procedure (Routine) - New Request Specialty Diagnoses / Procedures Referred By Contac t Referred To Contact [facility] Diagnoses AL amyloidosis (HCC) Chronic heart failure with preserved ejection fraction (HFpEF) (HCC) Procedures ECG COMPLETE ECG ROUTINE ECG W/LEAST 12 LDS W/I&R Chester Patel MD [address] [employer] [address] [address] [facility] [place] [address] [place] [id number] Referral ID Status Reason Start Date Expiration Date Visits Requested Visits Authorized [id number] New Request Auto-Generat ed Referral 04/09/2024 04/09/2025 1 1 * Transition of Care (Routine) - Ref Not Required Specialty Diagnoses / Procedures Referred By Contac t Referred To Contact [facility] Diagnoses [place] amyloidosis (HCC) Chronic heart failure with preserved ejection fraction (HFpEF) (HCC) Procedures CARDIOVASCULAR MEDICINE OP FOLLOW UP APPT ORDER Chester Patel MD [address] [employer] [address] [place] [address] [facility] [place] [facility] [id number] Referral ID Status Reason Start Date Expiration Date Visits Requested Visits Authorized [id number] Ref Not Required PCP Requested Referral 10/10/2024 04/09/2025 1 1 [facility] for referral (narrative)No reason for referral information [facility]WC[facility]ho[facility] Work Phone: Reason for visit Narrative* Diagnostic Procedure Only (Routine) - Closed Specialty Diagnoses / Procedures Referred By Contac t Referred To Contact XR IMAGING Diagnoses Monoclonal (M) protein disease, multiple 'M' protein Procedures XR BONE SURVEY ROUTINE RADIOLOGIC EXAMINATION OSSEOUS SURVEY COMPL Jose Hugo, DO [address] [place] [address] [place] [address] Referral ID Status Reason Start Date Expiration Date V isits Requested Visits Authorized [id number] Closed Auto-Generate d Referral 04/05/2023 05/04/2024 1 1 [facility] for visit Narrative* Diagnostic Procedure Only (Routine) - Closed Specialty Diagnoses / Procedures Referred By Contac t Referred To Contact XR IMAGING Diagnoses CKD (chronic kidney disease), stage V (HCC) Procedures XR CHEST 1V FRONTAL RADIOLOGIC EXAM CHEST [place] G[place] [address] [place] [address] [place] [address] Referral ID Status Reason Start Date Expiration Date V isits Requested Visits Authorized [id number] Closed Auto-Generate d Referral 12/05/2023 01/03/2025 1 1 [facility] Advance Directives No Advanced Directives Records FoundDocuments on File Type Date Recorded 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 Advance Directive(s) 02/01/2022 3:52 PM Date Activated Date Inactivated Comments 08/25/2023 9:48 PM 09/19/2023 11:33 PM Question Answer Comments Full Code Order Discussed With: Patient Documents on File Type Date Recorded 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 Advance Directive(s) 06/07/2018 7:34 AM Advance Directive(s) 05/12/2015 11:48 AM Advance Directive Response Recorded Date/ Time Living Will Yes March 17, 2023 11:09am Power of Machine Zipper Trimmer Yes March 17 11:09am Name of Medical Power of Machine Zipper Trimmer Bari Betancur March 17, 2023 11:09am Advance Directive Response Recorded Date/ Time Name of Medical Power of Machine Zipper Trimmer Bari Betancur March 17, 2023 2:21pm Living Will Yes March 17, 2023 2:21pm Power of Machine Zipper Trimmer Yes March 17 2:21pm Documents on File Type Date Recorded 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 Yes December 31, 2024 9:16am Name of Medical Power of Machine Zipper Trimmer BARI TOWNSEND December 31, 2024 9:16am Advance Directive Response Recorded Date/ Time Living Will Yes December 31, 2024 9:16am Do you have a Healthcare Pow er of Machine Zipper Trimmer? Yes December 31, 2024 9:16am Name of Medical Power of Machine Zipper Trimmer BARI TOWNSEND December 31, 2024 9:16am Advance Directives on File Yes 2024 7:17am Living Will Yes May 01 7:17am Do you have a Healthcare Pow er of Machine Zipper Trimmer? Yes May 01, 2025 7:17am Name of Medical Power of Machine Zipper Trimmer Molly Chavezd- assistant city attorney May 01, 2025 7:17am Advance Directives Yes May 01, 2025 7:17am Advance Directive Response Recorded Date/ Time Advance Directives on File Yes 2024 7:17am Living Will Yes May 01 7:17am Do you have a Healthcare Pow er of Machine Zipper Trimmer? Yes May 01, 2025 7:17am Name of Medical Power of Machine Zipper Trimmer Molly Betancur- assistant city attorney May 01, 2025 7:17am Advance Directives Yes May 01, 2025 7:17am Chief Complaint and Reason for Visit Chief [...] (end stage renal disease) on dialys is Cookie 29th, 2025 9:09am Chief Complaint Admit Date PRE [...] access, AV graft February 13, 2025 10:22am Chief Complaint Admit Date Left Upper Arm Arteriovenous Graft With Cadaver Cr January 14, 2025 9:09am Left Upper Arm Arteriovenous Graft With Cadaver Cr January 14, 2025 1:26pm Post LUE AV Graft 2-3 WK FU January 28 9:40am 2 WK FU February 13, 2025 10:22 am Dependence on renal dialysis April 6:46am Dependence on renal dialysis April 8:06am Reason for Visit Admit Date ESRD (end stage renal disease) on dialys is January 14, 2025 9:09am Hemodialysis access, AV graft January 28, 2025 9:40am Hemodialysis access, AV graft February 13, 2025 10:22am Vascular dialysis catheter in place Augu [facility] 2024 6:46am Chief Complaint Admit Date Post LUE AV Graft 2-3 WK FU January 28 9:40am 2 WK FU February 13, 2025 10:22 am Dependence on renal dialysis April 6:46am Dependence on renal dialysis April 8:06am F/U cath removal May 15, 2025 9: 26am Reason for Visit Admit Date Hemodialysis access, AV graft January 28, 2025 9:40am Hemodialysis access, AV graft February 13, 2025 10:22am Vascular dialysis catheter in place Augu 2024 6:46am Family History No Family History Records Found Relationship Condition Age at Onset Recorded Date/T bolivar father Cardiac disease Unknown Presence of cardiac pacemaker Unknown Malignant neoplasm Unknown sister Malignant neoplasm Unknown Reason for Referral Specialty Diagnoses / Procedures Referred By Contac t Referred To Contact Ent - Otolaryngology Diagnoses Black hairy tongue Altered taste Hoarseness of voice Procedures CONSULT TO ENT OFFICE/OUTPATIENT [facility] 60-74 MINUTES Jose Miguel Herbert MD [address] [place] [address] Referral ID Status Reason Start Date Expiration Date Visits Requested Visits Authorized [id number] Pending Review PCP Requested Referral 03/23/2023 03/22/2024 1 1 Specialty Diagnoses / Procedures Referred By Contac t Referred To Contact US IMAGING Diagnoses Unintended weight loss Fatigue, unspecified type Decreased stamina Lack of appetite Procedures US ABDOMEN COMPLETE US ABDOMINAL REAL TIME W/IMAGE DOCUMENTATION Jose Miguel Herbert MD [address] [place] [address] Us Imaging Referral ID Status Reason Start Date Expiration Date Visits Requested Visits Authorized [id number] Authorized Auto-Generat ed Referral 03/23/2023 04/21/2024 1 1 Specialty Diagnoses / Procedures Referred By Contac t Referred To Contact CT IMAGING Diagnoses Unintended weight loss Fatigue, unspecified type Decreased stamina SOB (shortness of breath) Lack of appetite Procedures CT CHEST WO IVCON DIAGNOSTIC COMPUTED TOMOGRAPHY THORAX W/O CNTRST Jose Miguel Herbert MD [address] [place] [address] Ct Imaging Referral ID Status Reason Start Date Expiration Date Visits Requested Visits Authorized [id number] Authorized Auto-Generat ed Referral 03/23/2023 2023 1 1 Specialty Diagnoses / Procedures Referred By Contact Referred To Contact MOLECULAR & FUNCTIONAL IMAGING Diagnoses Decreased stamina Elevated troponin level SOB (shortness of breath) Nonspecific ST-T wave electrocardiographic changes Procedures NM CARDIAC PERF STRESS/PHARM MYOCARDIAL SPECT MULTIPLE STUDIES Jose Miguel Herbert MD [address] [place] [address] Molecular & Functional Imaging [address] [place] [id number] Referral ID Status Reason Start Date Expiration Date Visits Requested Visits Authorized [id number] Pending Review Auto-Generat ed Referral 03/23/2023 04/21/2024 1 1 Specialty Diagnoses / Procedures Referred By Contac t Referred To Contact [facility] Diagnoses SOB (shortness of breath) Procedures SPIROMETRY - BASELINE AND POST DILATOR BRNCDILAT RSPSE SPMTRY PRE&POST-BRNCDILAT ADMN Jose Miguel Herbert MD [address] [place] [id number] Respiratory [place] [address] [place] [address] Referral ID Status Reason Start Date Expiration Date Visits Requested Visits Authorized [id number] Authorized Auto-Generat ed Referral 03/23/2023 04/21/2024 1 1 Specialty Diagnoses / Procedures Referred By Contac t Referred To Contact CT IMAGING Diagnoses [place] macroglobulinemia (HCC) Procedures CT ABD/PEL WO IVCON CT ABD & PELVIS W/O CONTRAST Jose Hugo, DO [address] [place] [id number] Imaging Referral ID Status Reason Start Date Expiration Date V isits Requested Visits Authorized [id number] Open Auto-Generate d Referral 04/06/2023 05/05/2024 1 1 Specialty Diagnoses / Procedures Referred By Contac t Referred To Contact Cardiology Diagnoses Nonspecific ST-T wave electrocardiographic changes SOB (shortness of breath) Elevated troponin level Decreased stamina Abnormal stress ECG Procedures CONSULT TO CARDIOLOGY OFFICE/OUTPATIENT NEW HIGH MDM 60-74 MINUTES Jose Miguel Herbert MD [address] [place] [address] Referral ID Status Reason Start Date Expiration Date Visits Requested Visits Authorized [id number] Authorized PCP Requested Referral 04/26/2023 04/25/2024 1 1 Specialty Diagnoses / Procedures Referred By Contac t Referred To Contact Endocrinology Diagnoses Abnormal thyroid blood test Procedures CONSULT TO ENDOCRINOLOGY OFFICE/OUTPATIENT [facility] 60-74 MINUTES Jose Miguel Herbert MD [address] [place] [address] Referral ID Status Reason Start Date Expiration Date Visits Requested Visits Authorized [id number] Authorized PCP Requested Referral 05/08/2023 05/07/2024 1 1 Specialty Diagnoses / Procedures Referred By Contac t Referred To Contact Nephrology Diagnoses [place] light chain deposition disease (HCC) [place] amyloidosis (HCC) Stage 3b chronic kidney disease (HCC) Procedures CONSULT TO NEPHROLOGY OFFICE/OUTPATIENT [facility] 60-74 MINUTES Jose Hugo DO [address] [facility] [place] [address] Referral ID Status Reason Start Date Expiration Date Visits Requested Visits Authorized [id number] Authorized PCP Requested Referral 07/17/2024 1 1 Specialty Diagnoses / Procedures Referred By Contac t Referred To Contact CT IMAGING Diagnoses [place] macroglobulinemia (HCC) Procedures CT ABD/PEL WO IVCON CT ABD & PELVIS W/O CONTRAST Jose Hugo DO [address] [facility] [place] [address] Ct Imaging [id number] Referral ID Status Reason Start Date Expiration Date V isits Requested Visits Authorized [id number] Closed Auto-Generate d Referral 04/06/2023 05/05/2024 1 1 Specialty Diagnoses / Procedures Referred By Contac t Referred To Contact CT IMAGING Diagnoses Unintended weight loss Fatigue, unspecified type Decreased stamina SOB (shortness of breath) Lack of appetite Procedures CT CHEST WO IVCON DIAGNOSTIC COMPUTED TOMOGRAPHY THORAX W/O CNTRST Jose Miguel Herbert MD [address] [place] [address] Ct Imaging [id number] Referral ID Status Reason Start Date Expiration Date V isits Requested Visits Authorized [id number] Closed Auto-Generate d Referral 03/23/2023 2023 1 1 Specialty Diagnoses / Procedures Referred By Contac t Referred To Contact [facility] Procedures CARDIOVASCULAR MEDICINE OP FOLLOW UP APPT ORDER Talia Russell, HOISTING MACHINE OPERATOR.BOOSTER ASSEMBLER [address] [place] [address] [facility] [place] [address] [place] [address] Referral ID Status Reason Start Date Expiration Date Visits Requested Visits Authorized [id number] Ref Not Required PCP Requested Referral 11/16/2023 11/15/2024 1 1 Specialty Diagnoses / Procedures Referred By Contac t Referred To Contact Diagnoses HFrEF (heart failure with reduced ejection fraction) (HCC) Procedures CONSULT TO PALLIATIVE CARE OFFICE/OUTPATIENT [facility] 60 MINUTES Talia Russell, HOISTING MACHINE OPERATOR.BOOSTER ASSEMBLER [address] [place] [address] Referral ID Status Reason Start Date Expiration Date Visits Requested Visits Authorized [id number] Authorized PCP Requested Referral 11/23/2023 11/15/2024 1 1 Specialty Diagnoses / Procedures Referred By Contac t Referred To Contact Vascular Surgery Diagnoses CKD (chronic kidney disease), stage V (HCC) Procedures CONSULT TO VASCULAR SURGERY OFFICE/OUTPATIENT [facility] 60 [place] [address] [place] [address] [place] [address] [place] [address] Referral ID Status Reason Start Date Expiration Date Visits Requested Visits Authorized [id number] Authorized PCP Requested Referral 11/24/2023 11/23/2024 1 1 Specialty Diagnoses / Procedures Referred By Contac t Referred To Contact Cardiology Diagnoses Cardiomyopathy, unspecified type (HCC) Procedures CONSULT TO CARDIOLOGY OFFICE/OUTPATIENT [facility] 60 MINUTES Jose Hugo DO [address] [place] [address] Referral ID Status Reason Start Date Expiration Date Visits Requested Visits Authorized [id number] Authorized PCP Requested Referral 06/13/2024 06/13/2025 1 [...] 650 mg, ORAL, ONCE, 1 dose, On Mariluz 05/18/23 at 0800, Give 30 minutes prior to [...] 40 mg, ORAL, ONCE, 1 dose, On Mariluz 05/18/23 at 0800 Given 05/18/2023 7:58 AM EDT 40 mg diphenhydrAMINE 50 mg (BENADRYL) 50 mg, ORAL, ONCE, 1 dose, On Mariluz 05/18/23 at 0800, Give 30 minutes prior to infusion. Given 05/18/2023 7:57 AM EDT 50 mg riTUXimab-pvvr 592.5 mg in NaCl 0.9% 250 mL (RUXIENCE) 592.5 mg (375 mg/m2 1.58 m2 Treatment Plan BSA from Recorded weight), INTRAVENOUS, ONCE, 1 dose, On Mariluz 05/18/23 at 0800, Exp 06/01/23 (refrigerated) Total Volume [...] 1 dose, On Mon06/07/23 at 0900, exp 1700 06/07/23 (room temp) - DO NOT SHAKE - [...] 1 dose, On Mon07/26/23 at 0830, exp 0900 07/27/23 (room temp)- Total Volume = 250 ml [...] 20 mg, INTRAVENOUS, ONCE, 1 dose, On Mon08/24/23 at 1100 Given 08/24/2023 11:07 AM EST 20 mg NaCl 0.9% iv bolus 500 mL 500 mL, INTRAVENOUS, at 500 mL/hr, Administer over 1 Hours, ONCE, 1 dose, On 08/24/23 at 0900 New Bag/Syringe/Bot tle 08/24/2023 [...] or prosecute any alcohol or drug abuse patient.[facility] the event this information is protected by the Federal Confidentiality of Alcohol and Drug Abuse Patient Records regulations: The Federal rules restrict any use of the information to criminally investigate or prosecute any alcohol or drug abuse patient.[facility] HospitalIn the event this information is protected by the Federal Confidentiality of Alcohol and Drug Abuse Patient Records regulations: The Federal rules restrict any use of the information to criminally investigate or prosecute any alcohol or drug abuse patient.[facility]In the event this information is protected by the Federal Confidentiality of Alcohol and Drug Abuse Patient Records regulations: The Federal rules restrict any use of the information to criminally investigate or prosecute any alcohol or drug abuse patient.[facility] HospitalIn the event this information is protected by the Federal Confidentiality of Alcohol and Drug Abuse Patient Records regulations: The Federal rules restrict any use of the information to criminally investigate or prosecute any alcohol or drug abuse patient.[facility] HospitalIn the event this information is protected by the Federal Confidentiality of Alcohol and Drug Abuse Patient Records regulations: The Federal rules restrict any use of the information to criminally investigate or prosecute any alcohol or drug abuse patient.[facility] HospitalIn the event this information is protected by the Federal Confidentiality of Alcohol and Drug Abuse Patient Records regulations: The Federal rules restrict any use of the information to criminally investigate or prosecute any alcohol or drug abuse patient.[facility] HospitalIn the event this information is protected by the Federal Confidentiality of Alcohol and Drug Abuse Patient Records regulations: The Federal rules restrict any use of the information to criminally investigate or prosecute any alcohol or drug abuse patient.[facility] HospitalIn the event this information is protected by the Federal Confidentiality of Alcohol and Drug Abuse Patient Records regulations: The Federal rules restrict any use of the information to criminally investigate or prosecute any alcohol or drug abuse patient.[facility] HospitalIn the event this information is protected by the Federal Confidentiality of Alcohol and Drug Abuse Patient Records regulations: The Federal rules restrict any use of the information to criminally investigate or prosecute any alcohol or drug abuse patient.[facility] HospitalIn the event this information is protected by the Federal Confidentiality of Alcohol and Drug Abuse Patient Records regulations: The Federal rules restrict any use of the information to criminally investigate or prosecute any alcohol or drug abuse patient.[facility] HospitalIn the event this information is protected by the Federal Confidentiality of Alcohol and Drug Abuse Patient Records regulations: The Federal rules restrict any use of the information to criminally investigate or prosecute any alcohol or drug abuse patient.[facility] HospitalIn the event this information is protected by the Federal Confidentiality of Alcohol and Drug Abuse Patient Records regulations: The Federal rules restrict any use of the information to criminally investigate or prosecute any alcohol or drug abuse patient.[facility] HospitalIn the event this information is protected by the Federal Confidentiality of Alcohol and Drug Abuse Patient Records regulations: The Federal rules restrict any use of the information to criminally investigate or prosecute any alcohol or drug abuse patient.[facility] HospitalIn the event this information is protected by the Federal Confidentiality of Alcohol and Drug Abuse Patient Records regulations: The Federal rules restrict any use of the information to criminally investigate or prosecute any alcohol or drug abuse patient.[facility] HospitalIn the event this information is protected by the Federal Confidentiality of Alcohol and Drug Abuse Patient Records regulations: The Federal rules restrict any use of the information to criminally investigate or prosecute any alcohol or drug abuse patient.[facility] HospitalIn the event this information is protected by the Federal Confidentiality of Alcohol and Drug Abuse Patient Records regulations: The Federal rules restrict any use of the information to criminally investigate or prosecute any alcohol or drug abuse patient.[facility] HospitalIn the event this information is protected by the Federal Confidentiality of Alcohol and Drug Abuse Patient Records regulations: The Federal rules restrict any use of the information to criminally investigate or prosecute any alcohol or drug abuse patient.[facility] HospitalIn the event this information is protected by the Federal Confidentiality of Alcohol and Drug Abuse Patient Records regulations: The Federal rules restrict any use of the information to criminally investigate or prosecute any alcohol or drug abuse patient.[facility] HospitalIn the event this information is protected by the Federal Confidentiality of Alcohol and Drug Abuse Patient Records regulations: The Federal rules restrict any use of the information to criminally investigate or prosecute any alcohol or drug abuse patient.[facility] HospitalIn the event this information is protected by the Federal Confidentiality of Alcohol and Drug Abuse Patient Records regulations: The Federal rules restrict any use of the information to criminally investigate or prosecute any alcohol or drug abuse patient.[facility] HospitalIn the event this information is protected by the Federal Confidentiality of Alcohol and Drug Abuse Patient Records regulations: The Federal rules restrict any use of the information to criminally investigate or prosecute any alcohol or drug abuse patient.[facility] HospitalIn the event this information is protected by the Federal Confidentiality of Alcohol and Drug Abuse Patient Records regulations: The Federal rules restrict any use of the information to criminally investigate or prosecute any alcohol or drug abuse patient.[facility] HospitalIn the event this information is protected by the Federal Confidentiality of Alcohol and Drug Abuse Patient Records regulations: The Federal rules restrict any use of the information to criminally investigate or prosecute any alcohol or drug abuse patient.[facility] HospitalIn the event this information is protected by the Federal Confidentiality of Alcohol and Drug Abuse Patient Records regulations: The Federal rules restrict any use of the information to criminally investigate or prosecute any alcohol or drug abuse patient.[facility] HospitalIn the event this information is protected by the Federal Confidentiality of Alcohol and Drug Abuse Patient Records regulations: The Federal rules restrict any use of the information to criminally investigate or prosecute any alcohol or drug abuse patient.[facility] HospitalIn the event this information is protected by the Federal Confidentiality of Alcohol and Drug Abuse Patient Records regulations: The Federal rules restrict any use of the information to criminally investigate or prosecute any alcohol or drug abuse patient.[facility] HospitalIn the event this information is protected by the Federal Confidentiality of Alcohol and Drug Abuse Patient Records regulations: The Federal rules restrict any use of the information to criminally investigate or prosecute any alcohol or drug abuse patient.[facility] HospitalIn the event this information is protected by the Federal Confidentiality of Alcohol and Drug Abuse Patient Records regulations: The Federal rules restrict any use of the information to criminally investigate or prosecute any alcohol or drug abuse patient.[facility] HospitalIn the event this information is protected by the Federal Confidentiality of Alcohol and Drug Abuse Patient Records regulations: The Federal rules restrict any use of the information to criminally investigate or prosecute any alcohol or drug abuse patient.[facility] HospitalIn the event this information is protected by the Federal Confidentiality of Alcohol and Drug Abuse Patient Records regulations: The Federal rules restrict any use of the information to criminally investigate or prosecute any alcohol or drug abuse patient.[facility] HospitalIn the event this information is protected by the Federal Confidentiality of Alcohol and Drug Abuse Patient Records regulations: The Federal rules restrict any use of the information to criminally investigate or prosecute any alcohol or drug abuse patient.[facility] HospitalIn the event this information is protected by the Federal Confidentiality of Alcohol and Drug Abuse Patient Records regulations: The Federal rules restrict any use of the information to criminally investigate or prosecute any alcohol or drug abuse patient.[facility] HospitalIn the event this information is protected by the Federal Confidentiality of Alcohol and Drug Abuse Patient Records regulations: The Federal rules restrict any use of the information to criminally investigate or prosecute any alcohol or drug abuse patient.[facility] HospitalIn the event this information is protected by the Federal Confidentiality of Alcohol and Drug Abuse Patient Records regulations: The Federal rules restrict any use of the information to criminally investigate or prosecute any alcohol or drug abuse patient.[facility] HospitalIn the event this information is protected by the Federal Confidentiality of Alcohol and Drug Abuse Patient Records regulations: The Federal rules restrict any use of the information to criminally investigate or prosecute any alcohol or drug abuse patient.[facility] HospitalIn the event this information is protected by the Federal Confidentiality of Alcohol and Drug Abuse Patient Records regulations: The Federal rules restrict any use of the information to criminally investigate or prosecute any alcohol or drug abuse patient.[facility] HospitalIn the event this information is protected by the Federal Confidentiality of Alcohol and Drug Abuse Patient Records regulations: The Federal rules restrict any use of the information to criminally investigate or prosecute any alcohol or drug abuse patient.[facility] HospitalIn the event this information is protected by the Federal Confidentiality of Alcohol and Drug Abuse Patient Records regulations: The Federal rules restrict any use of the information to criminally investigate or prosecute any alcohol or drug abuse patient.[facility] HospitalIn the event this information is protected by the Federal Confidentiality of Alcohol and Drug Abuse Patient Records regulations: The Federal rules restrict any use of the information to criminally investigate or prosecute any alcohol or drug abuse patient.[facility] HospitalIn the event this information is protected by the Federal Confidentiality of Alcohol and Drug Abuse Patient Records regulations: The Federal rules restrict any use of the information to criminally investigate or prosecute any alcohol or drug abuse patient.[facility] HospitalIn the event this information is protected by the Federal Confidentiality of Alcohol and Drug Abuse Patient Records regulations: The Federal rules restrict any use of the information to criminally investigate or prosecute any alcohol or drug abuse patient.[facility] HospitalIn the event this information is protected by the Federal Confidentiality of Alcohol and Drug Abuse Patient Records regulations: The Federal rules restrict any use of the information to criminally investigate or prosecute any alcohol or drug abuse patient.[facility] HospitalIn the event this information is protected by the Federal Confidentiality of Alcohol and Drug Abuse Patient Records regulations: The Federal rules restrict any use of the information to criminally investigate or prosecute any alcohol or drug abuse patient.[facility] HospitalIn the event this information is protected by the Federal Confidentiality of Alcohol and Drug Abuse Patient Records regulations: The Federal rules restrict any use of the information to criminally investigate or prosecute any alcohol or drug abuse patient.[facility] HospitalIn the event this information is protected by the Federal Confidentiality of Alcohol and Drug Abuse Patient Records regulations: The Federal rules restrict any use of the information to criminally investigate or prosecute any alcohol or drug abuse patient.[facility] HospitalIn the event this information is protected by the Federal Confidentiality of Alcohol and Drug Abuse Patient Records regulations: The Federal rules restrict any use of the information to criminally investigate or prosecute any alcohol or drug abuse patient.[facility] HospitalIn the event this information is protected by the Federal Confidentiality of Alcohol and Drug Abuse Patient Records regulations: The Federal rules restrict any use of the information to criminally investigate or prosecute any alcohol or drug abuse patient.[facility] HospitalIn the event this information is protected by the Federal Confidentiality of Alcohol and Drug Abuse Patient Records regulations: The Federal rules restrict any use of the information to criminally investigate or prosecute any alcohol or drug abuse patient.[facility] HospitalIn the event this information is protected by the Federal Confidentiality of Alcohol and Drug Abuse Patient Records regulations: The Federal rules restrict any use of the information to criminally investigate or prosecute any alcohol or drug abuse patient.[facility] HospitalIn the event this information is protected by the Federal Confidentiality of Alcohol and Drug Abuse Patient Records regulations: The Federal rules restrict any use of the information to criminally investigate or prosecute any alcohol or drug abuse patient.[facility] HospitalIn the event this information is protected by the Federal Confidentiality of Alcohol and Drug Abuse Patient Records regulations: The Federal rules restrict any use of the information to criminally investigate or prosecute any alcohol or drug abuse patient.[facility] HospitalIn the event this information is protected by the Federal Confidentiality of Alcohol and Drug Abuse Patient Records regulations: The Federal rules restrict any use of the information to criminally investigate or prosecute any alcohol or drug abuse patient.[facility] HospitalIn the event this information is protected by the Federal Confidentiality of Alcohol and Drug Abuse Patient Records regulations: The Federal rules restrict any use of the information to criminally investigate or prosecute any alcohol or drug abuse patient.[facility] HospitalIn the event this information is protected by the Federal Confidentiality of Alcohol and Drug Abuse Patient Records regulations: The Federal rules restrict any use of the information to criminally investigate or prosecute any alcohol or drug abuse patient.[facility] HospitalIn the event this information is protected by the Federal Confidentiality of Alcohol and Drug Abuse Patient Records regulations: The Federal rules restrict any use of the information to criminally investigate or prosecute any alcohol or drug abuse patient.[facility] HospitalIn the event this information is protected by the Federal Confidentiality of Alcohol and Drug Abuse Patient Records regulations: The Federal rules restrict any use of the information to criminally investigate or prosecute any alcohol or drug abuse patient.[facility] HospitalIn the event this information is protected by the Federal Confidentiality of Alcohol and Drug Abuse Patient Records regulations: The Federal rules restrict any use of the information to criminally investigate or prosecute any alcohol or drug abuse patient.[facility] HospitalIn the event this information is protected by the Federal Confidentiality of Alcohol and Drug Abuse Patient Records regulations: The Federal rules restrict any use of the information to criminally investigate or prosecute any alcohol or drug abuse patient.[facility] HospitalIn the event this information is protected by the Federal Confidentiality of Alcohol and Drug Abuse Patient Records regulations: The Federal rules restrict any use of the information to criminally investigate or prosecute any alcohol or drug abuse patient.[facility] HospitalIn the event this information is protected by the Federal Confidentiality of Alcohol and Drug Abuse Patient Records regulations: The Federal rules restrict any use of the information to criminally investigate or prosecute any alcohol or drug abuse patient.[facility] HospitalIn the event this information is protected by the Federal Confidentiality of Alcohol and Drug Abuse Patient Records regulations: The Federal rules restrict any use of the information to criminally investigate or prosecute any alcohol or drug abuse patient.[facility] HospitalIn the event this information is protected by the Federal Confidentiality of Alcohol and Drug Abuse Patient Records regulations: The Federal rules restrict any use of the information to criminally investigate or prosecute any alcohol or drug abuse patient.[facility] HospitalIn the event this information is protected by the Federal Confidentiality of Alcohol and Drug Abuse Patient Records regulations: The Federal rules restrict any use of the information to criminally investigate or prosecute any alcohol or drug abuse patient.[facility] HospitalIn the event this information is protected by the Federal Confidentiality of Alcohol and Drug Abuse Patient Records regulations: The Federal rules restrict any use of the information to criminally investigate or prosecute any alcohol or drug abuse patient.[facility] HospitalIn the event this information is protected by the Federal Confidentiality of Alcohol and Drug Abuse Patient Records regulations: The Federal rules restrict any use of the information to criminally investigate or prosecute any alcohol or drug abuse patient.[facility] HospitalIn the event this information is protected by the Federal Confidentiality of Alcohol and Drug Abuse Patient Records regulations: The Federal rules restrict any use of the information to criminally investigate or prosecute any alcohol or drug abuse patient.[facility] HospitalIn the event this information is protected by the Federal Confidentiality of Alcohol and Drug Abuse Patient Records regulations: The Federal rules restrict any use of the information to criminally investigate or prosecute any alcohol or drug abuse patient.[facility] HospitalIn the event this information is protected by the Federal Confidentiality of Alcohol and Drug Abuse Patient Records regulations: The Federal rules restrict any use of the information to criminally investigate or prosecute any alcohol or drug abuse patient.[facility] HospitalIn the event this information is protected by the Federal Confidentiality of Alcohol and Drug Abuse Patient Records regulations: The Federal rules restrict any use of the information to criminally investigate or prosecute any alcohol or drug abuse patient.[facility] HospitalIn the event this information is protected by the Federal Confidentiality of Alcohol and Drug Abuse Patient Records regulations: The Federal rules restrict any use of the information to criminally investigate or prosecute any alcohol or drug abuse patient.[facility] HospitalIn the event this information is protected by the Federal Confidentiality of Alcohol and Drug Abuse Patient Records regulations: The Federal rules restrict any use of the information to criminally investigate or prosecute any alcohol or drug abuse patient.[facility] HospitalIn the event this information is protected by the Federal Confidentiality of Alcohol and Drug Abuse Patient Records regulations: The Federal rules restrict any use of the information to criminally investigate or prosecute any alcohol or drug abuse patient.[facility] HospitalIn the event this information is protected by the Federal Confidentiality of Alcohol and Drug Abuse Patient Records regulations: The Federal rules restrict any use of the information to criminally investigate or prosecute any alcohol or drug abuse patient.[facility] HospitalIn the event this information is protected by the Federal Confidentiality of Alcohol and Drug Abuse Patient Records regulations: The Federal rules restrict any use of the information to criminally investigate or prosecute any alcohol or drug abuse patient.[facility] HospitalIn the event this information is protected by the Federal Confidentiality of Alcohol and Drug Abuse Patient Records regulations: The Federal rules restrict any use of the information to criminally investigate or prosecute any alcohol or drug abuse patient.[facility] HospitalIn the event this information is protected by the Federal Confidentiality of Alcohol and Drug Abuse Patient Records regulations: The Federal rules restrict any use of the information to criminally investigate or prosecute any alcohol or drug abuse patient.[facility] HospitalIn the event this information is protected by the Federal Confidentiality of Alcohol and Drug Abuse Patient Records regulations: The Federal rules restrict any use of the information to criminally investigate or prosecute any alcohol or drug abuse patient.[facility]In the event this information is protected by the Federal Confidentiality of Alcohol and Drug Abuse Patient Records regulations: The Federal rules restrict any use of the information to criminally investigate or prosecute any alcohol or drug abuse patient.[facility] HospitalIn the event this information is protected by the Federal Confidentiality of Alcohol and Drug Abuse Patient Records regulations: The Federal rules restrict any use of the information to criminally investigate or prosecute any alcohol or drug abuse patient.[facility]In the event this information is protected by the Federal Confidentiality of Alcohol and Drug Abuse Patient Records regulations: The Federal rules restrict any use of the information to criminally investigate or prosecute any alcohol or drug abuse patient.[facility] HospitalIn the event this information is protected by the Federal Confidentiality of Alcohol and Drug Abuse Patient Records regulations: The Federal rules restrict any use of the information to criminally investigate or prosecute any alcohol or drug abuse patient.[facility] HospitalIn the event this information is protected by the Federal Confidentiality of Alcohol and Drug Abuse Patient Records regulations: The Federal rules restrict any use of the information to criminally investigate or prosecute any alcohol or drug abuse patient.[facility] HospitalIn the event this information is protected by the Federal Confidentiality of Alcohol and Drug Abuse Patient Records regulations: The Federal rules restrict any use of the information to criminally investigate or prosecute any alcohol or drug abuse patient.[facility] HospitalIn the event this information is protected by the Federal Confidentiality of Alcohol and Drug Abuse Patient Records regulations: The Federal rules restrict any use of the information to criminally investigate or prosecute any alcohol or drug abuse patient.[facility] HospitalIn the event this information is protected by the Federal Confidentiality of Alcohol and Drug Abuse Patient Records regulations: The Federal rules restrict any use of the information to criminally investigate or prosecute any alcohol or drug abuse patient.[facility] HospitalIn the event this information is protected by the Federal Confidentiality of Alcohol and Drug Abuse Patient Records regulations: The Federal rules restrict any use of the information to criminally investigate or prosecute any alcohol or drug abuse patient.[facility] HospitalIn the event this information is protected by the Federal Confidentiality of Alcohol and Drug Abuse Patient Records regulations: The Federal rules restrict any use of the information to criminally investigate or prosecute any alcohol or drug abuse patient.[facility] HospitalIn the event this information is protected by the Federal Confidentiality of Alcohol and Drug Abuse Patient Records regulations: The Federal rules restrict any use of the information to criminally investigate or prosecute any alcohol or drug abuse patient.[facility] HospitalIn the event this information is protected by the Federal Confidentiality of Alcohol and Drug Abuse Patient Records regulations: The Federal rules restrict any use of the information to criminally investigate or prosecute any alcohol or drug abuse patient.[facility] HospitalIn the event this information is protected by the Federal Confidentiality of Alcohol and Drug Abuse Patient Records regulations: The Federal rules restrict any use of the information to criminally investigate or prosecute any alcohol or drug abuse patient.[facility] HospitalIn the event this information is protected by the Federal Confidentiality of Alcohol and Drug Abuse Patient Records regulations: The Federal rules restrict any use of the information to criminally investigate or prosecute any alcohol or drug abuse patient.[facility] HospitalIn the event this information is protected by the Federal Confidentiality of Alcohol and Drug Abuse Patient Records regulations: The Federal rules restrict any use of the information to criminally investigate or prosecute any alcohol or drug abuse patient.[facility] HospitalIn the event this information is protected by the Federal Confidentiality of Alcohol and Drug Abuse Patient Records regulations: The Federal rules restrict any use of the information to criminally investigate or prosecute any alcohol or drug abuse patient.[facility] HospitalIn the event this information is protected by the Federal Confidentiality of Alcohol and Drug Abuse Patient Records regulations: The Federal rules restrict any use of the information to criminally investigate or prosecute any alcohol or drug abuse patient.[facility] HospitalIn the event this information is protected by the Federal Confidentiality of Alcohol and Drug Abuse Patient Records regulations: The Federal rules restrict any use of the information to criminally investigate or prosecute any alcohol or drug abuse patient.[facility] HospitalIn the event this information is protected by the Federal Confidentiality of Alcohol and Drug Abuse Patient Records regulations: The Federal rules restrict any use of the information to criminally investigate or prosecute any alcohol or drug abuse patient.[facility] HospitalIn the event this information is protected by the Federal Confidentiality of Alcohol and Drug Abuse Patient Records regulations: The Federal rules restrict any use of the information to criminally investigate or prosecute any alcohol or drug abuse patient.[facility] HospitalIn the event this information is protected by the Federal Confidentiality of Alcohol and Drug Abuse Patient Records regulations: The Federal rules restrict any use of the information to criminally investigate or prosecute any alcohol or drug abuse patient.[facility] HospitalIn the event this information is protected by the Federal Confidentiality of Alcohol and Drug Abuse Patient Records regulations: The Federal rules restrict any use of the information to criminally investigate or prosecute any alcohol or drug abuse patient.[facility] HospitalIn the event this information is protected by the Federal Confidentiality of Alcohol and Drug Abuse Patient Records regulations: The Federal rules restrict any use of the information to criminally investigate or prosecute any alcohol or drug abuse patient.[facility] HospitalIn the event this information is protected by the Federal Confidentiality of Alcohol and Drug Abuse Patient Records regulations: The Federal rules restrict any use of the information to criminally investigate or prosecute any alcohol or drug abuse patient.[facility] HospitalIn the event this information is protected by the Federal Confidentiality of Alcohol and Drug Abuse Patient Records regulations: The Federal rules restrict any use of the information to criminally investigate or prosecute any alcohol or drug abuse patient.[facility] HospitalIn the event this information is protected by the Federal Confidentiality of Alcohol and Drug Abuse Patient Records regulations: The Federal rules restrict any use of the information to criminally investigate or prosecute any alcohol or drug abuse patient.[facility] HospitalIn the event this information is protected by the Federal Confidentiality of Alcohol and Drug Abuse Patient Records regulations: The Federal rules restrict any use of the information to criminally investigate or prosecute any alcohol or drug abuse patient.[facility] HospitalIn the event this information is protected by the Federal Confidentiality of Alcohol and Drug Abuse Patient Records regulations: The Federal rules restrict any use of the information to criminally investigate or prosecute any alcohol or drug abuse patient.[facility] HospitalIn the event this information is protected by the Federal Confidentiality of Alcohol and Drug Abuse Patient Records regulations: The Federal rules restrict any use of the information to criminally investigate or prosecute any alcohol or drug abuse patient.[facility] HospitalIn the event this information is protected by the Federal Confidentiality of Alcohol and Drug Abuse Patient Records regulations: The Federal rules restrict any use of the information to criminally investigate or prosecute any alcohol or drug abuse patient.[facility] HospitalIn the event this information is protected by the Federal Confidentiality of Alcohol and Drug Abuse Patient Records regulations: The Federal rules restrict any use of the information to criminally investigate or prosecute any alcohol or drug abuse patient.[facility] HospitalIn the event this information is protected by the Federal Confidentiality of Alcohol and Drug Abuse Patient Records regulations: The Federal rules restrict any use of the information to criminally investigate or prosecute any alcohol or drug abuse patient.[facility] HospitalIn the event this information is protected by the Federal Confidentiality of Alcohol and Drug Abuse Patient Records regulations: The Federal rules restrict any use of the information to criminally investigate or prosecute any alcohol or drug abuse patient.[facility] HospitalIn the event this information is protected by the Federal Confidentiality of Alcohol and Drug Abuse Patient Records regulations: The Federal rules restrict any use of the information to criminally investigate or prosecute any alcohol or drug abuse patient.[facility] HospitalIn the event this information is protected by the Federal Confidentiality of Alcohol and Drug Abuse Patient Records regulations: The Federal rules restrict any use of the information to criminally investigate or prosecute any alcohol or drug abuse patient.[facility] HospitalIn the event this information is protected by the Federal Confidentiality of Alcohol and Drug Abuse Patient Records regulations: The Federal rules restrict any use of the information to criminally investigate or prosecute any alcohol or drug abuse patient.[facility] HospitalIn the event this information is protected by the Federal Confidentiality of Alcohol and Drug Abuse Patient Records regulations: The Federal rules restrict any use of the information to criminally investigate or prosecute any alcohol or drug abuse patient.[facility] HospitalIn the event this information is protected by the Federal Confidentiality of Alcohol and Drug Abuse Patient Records regulations: The Federal rules restrict any use of the information to criminally investigate or prosecute any alcohol or drug abuse patient.[facility] HospitalIn the event this information is protected by the Federal Confidentiality of Alcohol and Drug Abuse Patient Records regulations: The Federal rules restrict any use of the information to criminally investigate or prosecute any alcohol or drug abuse patient.[facility] HospitalIn the event this information is protected by the Federal Confidentiality of Alcohol and Drug Abuse Patient Records regulations: The Federal rules restrict any use of the information to criminally investigate or prosecute any alcohol or drug abuse patient.[facility] HospitalIn the event this information is protected by the Federal Confidentiality of Alcohol and Drug Abuse Patient Records regulations: The Federal rules restrict any use of the information to criminally investigate or prosecute any alcohol or drug abuse patient.[facility] HospitalIn the event this information is protected by the Federal Confidentiality of Alcohol and Drug Abuse Patient Records regulations: The Federal rules restrict any use of the information to criminally investigate or prosecute any alcohol or drug abuse patient.[facility] HospitalIn the event this information is protected by the Federal Confidentiality of Alcohol and Drug Abuse Patient Records regulations: The Federal rules restrict any use of the information to criminally investigate or prosecute any alcohol or drug abuse patient.[facility] HospitalIn the event this information is protected by the Federal Confidentiality of Alcohol and Drug Abuse Patient Records regulations: The Federal rules restrict any use of the information to criminally investigate or prosecute any alcohol or drug abuse patient.[facility] HospitalIn the event this information is protected by the Federal Confidentiality of Alcohol and Drug Abuse Patient Records regulations: The Federal rules restrict any use of the information to criminally investigate or prosecute any alcohol or drug abuse patient.[facility] HospitalIn the event this information is protected by the Federal Confidentiality of Alcohol and Drug Abuse Patient Records regulations: The Federal rules restrict any use of the information to criminally investigate or prosecute any alcohol or drug abuse patient.[facility] HospitalIn the event this information is protected by the Federal Confidentiality of Alcohol and Drug Abuse Patient Records regulations: The Federal rules restrict any use of the information to criminally investigate or prosecute any alcohol or drug abuse patient.[facility] HospitalIn the event this information is protected by the Federal Confidentiality of Alcohol and Drug Abuse Patient Records regulations: The Federal rules restrict any use of the information to criminally investigate or prosecute any alcohol or drug abuse patient.[facility] HospitalIn the event this information is protected by the Federal Confidentiality of Alcohol and Drug Abuse Patient Records regulations: The Federal rules restrict any use of the information to criminally investigate or prosecute any alcohol or drug abuse patient.[facility] HospitalIn the event this information is protected by the Federal Confidentiality of Alcohol and Drug Abuse Patient Records regulations: The Federal rules restrict any use of the information to criminally investigate or prosecute any alcohol or drug abuse patient.[facility] HospitalIn the event this information is protected by the Federal Confidentiality of Alcohol and Drug Abuse Patient Records regulations: The Federal rules restrict any use of the information to criminally investigate or prosecute any alcohol or drug abuse patient.[facility] HospitalIn the event this information is protected by the Federal Confidentiality of Alcohol and Drug Abuse Patient Records regulations: The Federal rules restrict any use of the information to criminally investigate or prosecute any alcohol or drug abuse patient.[facility] HospitalIn the event this information is protected by the Federal Confidentiality of Alcohol and Drug Abuse Patient Records regulations: The Federal rules restrict any use of the information to criminally investigate or prosecute any alcohol or drug abuse patient.[facility] HospitalIn the event this information is protected by the Federal Confidentiality of Alcohol and Drug Abuse Patient Records regulations: The Federal rules restrict any use of the information to criminally investigate or prosecute any alcohol or drug abuse patient.[facility] HospitalIn the event this information is protected by the Federal Confidentiality of Alcohol and Drug Abuse Patient Records regulations: The Federal rules restrict any use of the information to criminally investigate or prosecute any alcohol or drug abuse patient.[facility] HospitalIn the event this information is protected by the Federal Confidentiality of Alcohol and Drug Abuse Patient Records regulations: The Federal rules restrict any use of the information to criminally investigate or prosecute any alcohol or drug abuse patient.[facility] HospitalIn the event this information is protected by the Federal Confidentiality of Alcohol and Drug Abuse Patient Records regulations: The Federal rules restrict any use of the information to criminally investigate or prosecute any alcohol or drug abuse patient.[facility] HospitalIn the event this information is protected by the Federal Confidentiality of Alcohol and Drug Abuse Patient Records regulations: The Federal rules restrict any use of the information to criminally investigate or prosecute any alcohol or drug abuse patient.[facility] HospitalIn the event this information is protected by the Federal Confidentiality of Alcohol and Drug Abuse Patient Records regulations: The Federal rules restrict any use of the information to criminally investigate or prosecute any alcohol or drug abuse patient.[facility] HospitalIn the event this information is protected by the Federal Confidentiality of Alcohol and Drug Abuse Patient Records regulations: The Federal rules restrict any use of the information to criminally investigate or prosecute any alcohol or drug abuse patient.[facility] HospitalIn the event this information is protected by the Federal Confidentiality of Alcohol and Drug Abuse Patient Records regulations: The Federal rules restrict any use of the information to criminally investigate or prosecute any alcohol or drug abuse patient.[facility] HospitalIn the event this information is protected by the Federal Confidentiality of Alcohol and Drug Abuse Patient Records regulations: The Federal rules restrict any use of the information to criminally investigate or prosecute any alcohol or drug abuse patient.[facility] HospitalIn the event this information is protected by the Federal Confidentiality of Alcohol and Drug Abuse Patient Records regulations: The Federal rules restrict any use of the information to criminally investigate or prosecute any alcohol or drug abuse patient.[facility] HospitalIn the event this information is protected by the Federal Confidentiality of Alcohol and Drug Abuse Patient Records regulations: The Federal rules restrict any use of the information to criminally investigate or prosecute any alcohol or drug abuse patient.[facility] HospitalIn the event this information is protected by the Federal Confidentiality of Alcohol and Drug Abuse Patient Records regulations: The Federal rules restrict any use of the information to criminally investigate or prosecute any alcohol or drug abuse patient.[facility] HospitalIn the event this information is protected by the Federal Confidentiality of Alcohol and Drug Abuse Patient Records regulations: The Federal rules restrict any use of the information to criminally investigate or prosecute any alcohol or drug abuse patient.[facility] HospitalIn the event this information is protected by the Federal Confidentiality of Alcohol and Drug Abuse Patient Records regulations: The Federal rules restrict any use of the information to criminally investigate or prosecute any alcohol or drug abuse patient.[facility] HospitalIn the event this information is protected by the Federal Confidentiality of Alcohol and Drug Abuse Patient Records regulations: The Federal rules restrict any use of the information to criminally investigate or prosecute any alcohol or drug abuse patient.[facility] HospitalIn the event this information is protected by the Federal Confidentiality of Alcohol and Drug Abuse Patient Records regulations: The Federal rules restrict any use of the information to criminally investigate or prosecute any alcohol or drug abuse patient.[facility] HospitalIn the event this information is protected by the Federal Confidentiality of Alcohol and Drug Abuse Patient Records regulations: The Federal rules restrict any use of the information to criminally investigate or prosecute any alcohol or drug abuse patient.[facility] HospitalIn the event this information is protected by the Federal Confidentiality of Alcohol and Drug Abuse Patient Records regulations: The Federal rules restrict any use of the information to criminally investigate or prosecute any alcohol or drug abuse patient.[facility] HospitalIn the event this information is protected by the Federal Confidentiality of Alcohol and Drug Abuse Patient Records regulations: The Federal rules restrict any use of the information to criminally investigate or prosecute any alcohol or drug abuse patient.[facility] HospitalIn the event this information is protected by the Federal Confidentiality of Alcohol and Drug Abuse Patient Records regulations: The Federal rules restrict any use of the information to criminally investigate or prosecute any alcohol or drug abuse patient.[facility] HospitalIn the event this information is protected by the Federal Confidentiality of Alcohol and Drug Abuse Patient Records regulations: The Federal rules restrict any use of the information to criminally investigate or prosecute any alcohol or drug abuse patient.[facility] HospitalIn the event this information is protected by the Federal Confidentiality of Alcohol and Drug Abuse Patient Records regulations: The Federal rules restrict any use of the information to criminally investigate or prosecute any alcohol or drug abuse patient.[facility] HospitalIn the event this information is protected by the Federal Confidentiality of Alcohol and Drug Abuse Patient Records regulations: The Federal rules restrict any use of the information to criminally investigate or prosecute any alcohol or drug abuse patient.[facility] HospitalIn the event this information is protected by the Federal Confidentiality of Alcohol and Drug Abuse Patient Records regulations: The Federal rules restrict any use of the information to criminally investigate or prosecute any alcohol or drug abuse patient.[facility] HospitalIn the event this information is protected by the Federal Confidentiality of Alcohol and Drug Abuse Patient Records regulations: The Federal rules restrict any use of the information to criminally investigate or prosecute any alcohol or drug abuse patient.[facility] HospitalIn the event this information is protected by the Federal Confidentiality of Alcohol and Drug Abuse Patient Records regulations: The Federal rules restrict any use of the information to criminally investigate or prosecute any alcohol or drug abuse patient.[facility] HospitalIn the event this information is protected by the Federal Confidentiality of Alcohol and Drug Abuse Patient Records regulations: The Federal rules restrict any use of the information to criminally investigate or prosecute any alcohol or drug abuse patient.[facility] HospitalIn the event this information is protected by the Federal Confidentiality of Alcohol and Drug Abuse Patient Records regulations: The Federal rules restrict any use of the information to criminally investigate or prosecute any alcohol or drug abuse patient.[facility] HospitalIn the event this information is protected by the Federal Confidentiality of Alcohol and Drug Abuse Patient Records regulations: The Federal rules restrict any use of the information to criminally investigate or prosecute any alcohol or drug abuse patient.[facility] HospitalIn the event this information is protected by the Federal Confidentiality of Alcohol and Drug Abuse Patient Records regulations: The Federal rules restrict any use of the information to criminally investigate or prosecute any alcohol or drug abuse patient.[facility] HospitalIn the event this information is protected by the Federal Confidentiality of Alcohol and Drug Abuse Patient Records regulations: The Federal rules restrict any use of the information to criminally investigate or prosecute any alcohol or drug abuse patient.[facility] HospitalIn the event this information is protected by the Federal Confidentiality of Alcohol and Drug Abuse Patient Records regulations: The Federal rules restrict any use of the information to criminally investigate or prosecute any alcohol or drug abuse patient.[facility] HospitalIn the event this information is protected by the Federal Confidentiality of Alcohol and Drug Abuse Patient Records regulations: The Federal rules restrict any use of the information to criminally investigate or prosecute any alcohol or drug abuse patient.[facility] HospitalIn the event this information is protected by the Federal Confidentiality of Alcohol and Drug Abuse Patient Records regulations: The Federal rules restrict any use of the information to criminally investigate or prosecute any alcohol or drug abuse patient.[facility] HospitalIn the event this information is protected by the Federal Confidentiality of Alcohol and Drug Abuse Patient Records regulations: The Federal rules restrict any use of the information to criminally investigate or prosecute any alcohol or drug abuse patient.[facility] Reason for Visit (unrecogniz ed section and content) Reason Comments Imm/Inj Specialty Diagnoses / Procedures Referred By Contac t Referred To Contact Diagnoses SINDI (acute kidney injury) (HCC) 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) Jose Hugo DO [address] [place] [address] [facility] [address] [place] [address] Referral ID Status Reason Start Date Expiration Date Visits Re quested Visits Authorized [id number] Closed 08/18/2023 11/16/2023 99 99 Reason Comments Immunotherapy Chemotherapy Treatment Reason Comments Non-Chemotherapy Treatment Referral ID Status Reason Start Date Expiration Date V isits Requested Visits Authorized [id number] Authorized 08/18/2023 11/16/2023 [address] Specialty Diagnoses / Procedures Referred By Contac t Referred To Contact CT IMAGING Diagnoses Waldenstrom macroglobulinemia (HCC) Procedures CT ABD/PEL WO IVCON CT ABD & PELVIS W/O CONTRAST Jose Hugo DO [address] [facility] [place] [address] [place] [address] Referral ID Status Reason Start Date Expiration Date V isits Requested Visits Authorized [id number] Closed Auto-Generate d Referral 04/06/2023 05/05/2024 1 [...] SPMTRY PRE&POST-[place] [address] [place] [address] [address] [place] [address] Referral ID Status Reason Start Date Expiration Date V isits Requested Visits Authorized [id number] Closed Auto-Generate d Referral 03/23/2023 04/21/2024 1 1 Reason Comments Patient Update Reason Comments Consult Specialty Diagnoses / Procedures Referred By Contac t Referred To Contact Diagnoses Monoclonal (M) protein disease, multiple 'M' protein Procedures CONSULT TO HEMATOLOGY/ONCOLOGY OFFICE/OUTPATIENT [facility] MDM 60-74 MINUTES Jose Miguel Herbert MD [address] [place] [address] Referral ID Status Reason Start Date Expiration Date Visits Requested Visits Authorized [id number] Pending Review PCP Requested Referral 04/04/2023 04/03/2024 1 1 Reason Comments Opened In Error Reason Comments Follow Up 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 Reason Comments AVS 04/19/23, CHEMO START Reason Comments First Time Treatment Education Velcade, Rituxan, Dexamethasone Reason Comments Reason Comments Established Patient Reason Comments 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 Treatment Plann ing Reason Comments Benefits Investigation Reason Comments Chemotherapy Treatment Specialty Diagnoses / Procedures Referred By Contac t Referred To Contact Diagnoses SINDI (acute kidney injury) (HCC) 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) Jose Hugo, DO [address] [place] [address] [facility] [address] [place] [address] Referral ID Status Reason Start Date Expiration Date V isits Requested Visits Authorized [id number] Authorized 04/19/2023 07/18/2023 99 99 Reason Comments Results Reason Comments Future Appointment Reason Comments Appointment Reason Comments 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 C1D1 Post Treat ment Call (Rituxan/Velcade) Reason Comments Outside Urology Reason Comments Research 5024 Consent Reason Comments Patient Education Reason Comments Heart Failure Reason Comments 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 Follow-up Reason Comments Patient Update Reason Comments Established Patient Reason Comments Radiology US Specialty Diagnoses / Procedures Referred By Contac t Referred To Contact US IMAGING Diagnoses Unintended weight loss Fatigue, unspecified type Decreased stamina Lack of appetite Procedures US ABDOMEN COMPLETE US ABDOMINAL REAL TIME W/IMAGE DOCUMENTATION Jose Miguel Herbert MD [address] [place] [address] [place] [address] Referral ID Status Reason Start Date Expiration Date V isits Requested Visits Authorized [id number] Closed Auto-Generate d Referral 03/23/2023 04/21/2024 1 1 Specialty Diagnoses / Procedures Referred By Contac t Referred To Contact CT IMAGING Diagnoses Unintended weight loss Fatigue, unspecified type Decreased stamina SOB (shortness of breath) Lack of appetite Procedures CT CHEST WO IVCON DIAGNOSTIC COMPUTED TOMOGRAPHY THORAX W/O CNTRST Jose Miguel Herbert MD [address] [place] [address] [place] [address] Referral ID Status Reason Start Date Expiration Date V isits Requested Visits Authorized [id number] Closed Auto-Generate d Referral 03/23/2023 2023 1 1 Reason Comments Patient Question Reason Comments Follow Up Reason Comments First Time Treatment Education Bendamust ine Reason Comments Consult Referral Reason Comments Palliative Medicine Consult Reason Comments Education Of Patient/family OTP Educatio n Reason Comments F/U 6 months Specialty Diagnoses / Procedures Referred By Contac t Referred To Contact Diagnoses SINDI (acute kidney injury) (HCC) 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 Reason Comments Refill Request Reason Onset Date Comments SPP Oral Oncology/hematology - Treatment Referra l 04/18/2024 [facility] Insurance Authorization 04/18/2024 Pending PA Reason Comments 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 Oral Anti-cance r agents education (zanubrutinib) Reason Comments 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 Oral Anti-Cance r Agents Follow-up (zanubrutinib) Reason Comments Follow Up Specialty Diagnoses / Procedures Referred By Tripp crawford Referred To Contact Procedures CARDIOVASCULAR MEDICINE OP FOLLOW UP APPT ORDER Talia Russell, JAELYN.BOOSTER ASSEMBLER [address] [place] [address] Referral ID Status Reason Start Date Expiration Date Visits Requested Visits Authorized [id number] Ref Not Required PCP Requested Referral 11/05/2023 10/04/2024 1 1 Reason Onset Date Comments SPP Oral Oncology/hematology - Medication Refill 05/13/2024 [facility] 80mg Reason Comments Outside [id number] Ordered Reason Onset Date Comments SPP Oral [...] Specialty Diagnoses / Procedures Referred By Contjenni crawford Referred To Contact Cardiology Diagnoses Cardiomyopathy, unspecified type (HCC) Procedures CONSULT TO CARDIOLOGY OFFICE/OUTPATIENT NEW HIGH MDM 60 MINUTES Jose Hugo, DO [address] [place] [address] Referral ID Status Reason Start Date Expiration Date V isits Requested Visits Authorized [id number] Closed PCP Requested Referral 06/13/2024 06/13/2025 1 1 Reason Onset Date Comments SPP Oral Oncology/hematology - Medication Refill 10/31/2024 [facility] Reason Comments Medication Problem Reason Onset Date Comments SPP Oral Oncology/hematology - Medication Refill 11/26/2024 [facility] 80mg Reason Comments 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 Patient Questio n Reason Onset [...] Oral Oncology/hematology - Medication Refill 04/15/2025 [facility] Reason Comments Abstract Vasular H&P Reason Comments ext document Operative Report Reason Onset Date Comments SPP Oral Oncology/hematology - Medication Refill 05/16/2025 [facility] Care Teams (unrecognized sec tion and content) Docketing Specialist Relationship Specialty Start Date End Date Jose Miguel Herbert MD [address] [place] [address] PCP - General Family Practice 07/29/21 Docketing Specialist Relationship Specialty Start Date End Date Jose Miguel Herbert MD [address] [place] [address] PCP - General Family Practice 07/29/21 Docketing Specialist Relationship Specialty Start Date End Date Jose Miguel Herbert MD [address] [place] [address] PCP - General Family Medicine 07/29/21 Docketing Specialist Relationship Specialty Start Date End Date Jose Miguel Herbert MD [address] [place] [address] PCP - General Family Medicine 07/29/21 Team Status: Active Member Role Status Dates Dr. Loc Sharp MD Family Provider Active Dr. Jose Miguel Herbert MD Primary Care Provider Active Team Status: Active Member Role Status Dates Dr. Jose Miguel Herbert MD Primary Care Provider Active Dr. Jonathan Estrada MD Emergency Provider Active Dr. Jonathan Fernando , Admit Provider, Attending Pro vider Active Docketing Specialist Relationship Specialty Start Date End Date Jose Miguel Herbert MD [address] [place] [address] PCP - General Family Medicine 07/29/21 Team Status: Active Member Role Status Dates Dr. Jose Miguel Herbert MD Primary Care Provider Active Dr. Abundio Zepeda MD Attending Provider Active Team Status: Active Member Role Status Dates Dr. Jose Miguel Herbert MD Primary Care Provider Active Dr. Jonathan Estrada MD Emergency Provider Active Dr. Jonathan Fernando , Admit Provider, Attending Provider, Other Provider Active Team Status: Inactive Member Role Status Dates Dr. Jose Miguel Herbert MD Primary Care Provider Active Dr. Jonathan Estrada MD Emergency Provider Active Dr. Jonathan Fernando DO Admit Provider, Attending Pro vider Active Docketing Specialist Relationship Specialty Start Date End Date Jose Miguel Herbert MD [address] [place] [address] PCP - General Family Medicine 07/29/21 Docketing Specialist Relationship Specialty Start Date End Date Jose Miguel Herbert MD [address] [place] [address] PCP - General Family Medicine 07/29/21 Docketing Specialist Relationship Specialty Start Date End Date Jose Miguel Herbert MD [address] [place] [address] PCP - General Family Medicine 07/29/21 Docketing Specialist Relationship Specialty Start Date End Date Jose Miguel Herbert MD [address] [place] [address] PCP - General Family Medicine 07/29/21 Docketing Specialist Relationship Specialty Start Date End Date Jose Miguel Herbert MD [address] [place] [address] PCP - General Family Medicine 07/29/21 Docketing Specialist Relationship Specialty Start Date End Date Jose Miguel Herbert MD [address] [place] [address] PCP - General Family Medicine 07/29/21 Docketing Specialist Relationship Specialty Start Date End Date Jose Miguel Herbert MD [address] [place] [address] PCP - General Family Medicine 07/29/21 Docketing Specialist Relationship Specialty Start Date End Date Jose Miguel Herbert MD [address] [place] [address] PCP - General Family Medicine 07/29/21 Dina Tolentino RN Specialty Skidway Worker Oncology 04/19/23 Jose Hugo DO [address] [place] [address] Physician Hematology/Oncology 04/19/23 Docketing Specialist Relationship Specialty Start Date End Date Jose Miguel Herbert MD [address] [place] [address] PCP - General Family Medicine 07/29/21 Dina Tolentino RN Specialty Skidway Worker Oncology 04/19/23 Jose Hugo DO [address] [place] [address] Physician Hematology/Oncology 04/19/23 Docketing Specialist Relationship Specialty Start Date End Date Jose Miguel Herbert MD [address] [place] [address] PCP - General Family Medicine 07/29/21 Dina Tolentino RN Specialty Skidway Worker Oncology 04/19/23 Jose Hugo DO [address] [place] [facility] [place] [address] Physician Hematology/Oncology 04/19/23 Docketing Specialist Relationship Specialty Start Date End Date Jose Miguel Herbert MD [address] [facility] [place] [address] PCP - General Family Medicine 07/29/21 Dina Tolentino RN Specialty Skidway Worker Oncology 04/19/23 Jose Hugo DO [address] [place] [facility] [place] [address] Physician Hematology/Oncology 04/19/23 Docketing Specialist Relationship Specialty Start Date End Date Jose Miguel Herbert MD [address] [facility] [place] [address] PCP - General Family Medicine 07/29/21 Dina Tolentino RN Specialty Skidway Worker Oncology 04/19/23 Jose Hugo DO [address] [place] [facility] [place] [address] Physician Hematology/Oncology 04/19/23 Denise Wagoner LISW [address] [place] [address] Refinery Process Engineer Hematology/Oncology 04/21/23 Team Status: Active Member Role [...] Active Dr. Kit Crisostomo MD Attending Provider, Jason shirleying Provider Active Team Status: Inactive Member Role Status Dates Dr. Jose Miguel Herbert MD Primary Care Pro vider, Attending Provider, Referring Provider Active Docketing Specialist Relationship Specialty Start Date End Date Jose Miguel Herbert MD [address] [place] [address] PCP - General Family Medicine 07/29/21 Dina Tolentino, RN Specialty Skidway Worker Oncology 04/19/23 Jose Hugo DO [address] [place] [address] Physician Hematology/Oncology 04/19/23 Docketing Specialist Relationship Specialty Start Date End Date Jose Miguel Herbert MD [address] [place] [address] PCP - General Family Medicine 07/29/21 Dina Tolentino RN Specialty Skidway Worker Oncology 04/19/23 Jose Hugo DO [address] [place] [address] Physician Hematology/Oncology 04/19/23 Denise Wagoner LISW [address] [place] [address] Refinery Process Engineer Hematology/Oncology 04/21/23 Docketing Specialist Relationship Specialty Start Date End Date Jose Miguel Herbert MD [address] [place] [address] PCP - General Family Medicine 07/29/21 Dina Tolentino RN Specialty Skidway Worker Oncology 04/19/23 Jose Hugo DO [address] [place] [address] Physician Hematology/Oncology 04/19/23 Denise Wagoner LISW [address] [place] [address] Refinery Process Engineer Hematology/Oncology 04/21/23 Docketing Specialist Relationship Specialty Start Date End Date Jose Miguel Herbert MD [address] [place] [address] PCP - General Family Medicine 07/29/21 Dina Tolentino RN Specialty Skidway Worker Oncology 04/19/23 Jose Hugo DO [address] [place] [address] Physician Hematology/Oncology 04/19/23 Denise Wagoner LISW [address] [place] [address] Refinery Process Engineer Hematology/Oncology 04/21/23 Docketing Specialist Relationship Specialty Start Date End Date Jose Miguel Herbert MD [address] [facility] [place] [address] PCP - General Family Medicine 07/29/21 Dina Tolentino RN Specialty Skidway Worker Oncology 04/19/23 Jose Hugo DO [address] [place] [address] Physician Hematology/Oncology 04/19/23 Denise Wagoner LISW [address] [place] [address] Refinery Process Engineer Hematology/Oncology 04/21/23 Docketing Specialist Relationship Specialty Start Date End Date Jose Miguel Herbert MD [address] [place] [address] PCP - General Family Medicine 07/29/21 Dina Tolentino RN Specialty Skidway Worker Oncology 04/19/23 Jose Hugo DO [address] [place] [address] Physician Hematology/Oncology 04/19/23 Denise Wagoner LISW [address] [place] [address] Refinery Process Engineer Hematology/Oncology 04/21/23 Docketing Specialist Relationship Specialty Start Date End Date Jose Miguel Herbert MD [address] [place] [address] PCP - General Family Medicine 07/29/21 Dina Tolentino RN Specialty Skidway Worker Oncology 04/19/23 Jose Hugo DO [address] [place] [address] Physician Hematology/Oncology 04/19/23 Denise Wagoner LISW [address] [place] [address] Refinery Process Engineer Hematology/Oncology 04/21/23 Docketing Specialist Relationship Specialty Start Date End Date Jose Miguel Herbert MD [address] [facility] [place] [address] PCP - General Family Medicine 07/29/21 Dina Tolentino RN Specialty Skidway Worker Oncology 04/19/23 Jose Hugo DO [address] [place] [address] Physician Hematology/Oncology 04/19/23 Denise Wagoner LISW [address] [place] [address] Refinery Process Engineer Hematology/Oncology 04/21/23 Docketing Specialist Relationship Specialty Start Date End Date Jose Miguel Herbert MD [address] [place] [address] PCP - General Family Medicine 07/29/21 Dina Tolentino RN Specialty Skidway Worker Oncology 04/19/23 Jose Hugo DO [address] [place] [address] Physician Hematology/Oncology 04/19/23 Denise Wagoner, LABORATORY SAMPLER [address] [place] [address] Refinery Process Engineer Hematology/Oncology 04/21/23 Docketing Specialist Relationship Specialty Start Date End Date Jose Miguel Herbert MD [address] [place] [address] PCP - General Family Medicine 07/29/21 Dina Tolentino RN Specialty Skidway Worker Oncology 04/19/23 Jose Hugo DO [address] [place] [address] Physician Hematology/Oncology 04/19/23 Denise Wagoner, LABORATORY SAMPLER [address] [place] [address] Refinery Process Engineer Hematology/Oncology 04/21/23 Docketing Specialist Relationship Specialty Start Date End Date Jose Miguel Herbert MD [address] [place] [address] PCP - General Family Medicine 07/29/21 Dina Tolentino RN Specialty Skidway Worker Oncology 04/19/23 Jose Hugo DO [address] [place] [address] Physician Hematology/Oncology 04/19/23 Denise Wagoner, REESE [address] [place] [address] Refinery Process Engineer Hematology/Oncology 04/21/23 Docketing Specialist Relationship Specialty Start Date End Date Jose Miguel Herbert MD [address] [place] [address] PCP - General Family Medicine 07/29/21 Dina Tolentino RN Specialty Skidway Worker Oncology 04/19/23 Jose Hugo DO [address] [place] [address] Physician Hematology/Oncology 04/19/23 Denise Wagoner, LABORATORY SAMPLER [address] [place] [address] Refinery Process Engineer Hematology/Oncology 04/21/23 Docketing Specialist Relationship Specialty Start Date End Date Jose Miguel Herbert MD [address] [place] [address] PCP - General Family Medicine 07/29/21 Dina Tolentino RN Specialty Skidway Worker Oncology 04/19/23 Jose Hugo DO [address] [place] [address] Physician Hematology/Oncology 04/19/23 Denise Wagoner, LABORATORY SAMPLER [address] [place] [address] Refinery Process Engineer Hematology/Oncology 04/21/23 Docketing Specialist Relationship Specialty Start Date End Date Jose Miguel Herbert MD [address] [place] [address] PCP - General Family Medicine 07/29/21 Dina Tolentino RN Specialty Skidway Worker Oncology 04/19/23 Jose Hugo DO [address] [place] [address] Physician Hematology/Oncology 04/19/23 Denise Wagoner, LABORATORY SAMPLER [address] [place] [address] Refinery Process Engineer Hematology/Oncology 04/21/23 Docketing Specialist Relationship Specialty Start Date End Date Jose Miguel Herbert MD [address] [place] [address] PCP - General Family Medicine 07/29/21 Dina Tolentino RN Specialty Skidway Worker Oncology 04/19/23 Jose Hugo DO [address] [place] [address] Physician Hematology/Oncology 04/19/23 Denise Wagoner LISW [address] [place] [address] Refinery Process Engineer Hematology/Oncology 04/21/23 Docketing Specialist Relationship Specialty Start Date End Date Jose Miguel Herbert MD [address] [facility] [place] [address] PCP - General Family Medicine 07/29/21 Dina Tolentino, RN Specialty Skidway Worker Oncology 04/19/23 Jose Hugo DO [address] [place] [address] Physician Hematology/Oncology 04/19/23 Denise Wagoner LISW [address] [place] [address] Refinery Process Engineer Hematology/Oncology 04/21/23 Chester Patel MD [address] [place] [address] Cardiology 05/23/23 Sonal Barth [address] [facility] [place] [address] 05/23/23 Docketing Specialist Relationship Specialty Start Date End Date Jose Miguel Herbert MD [address] [facility] [place] [address] PCP - General Family Medicine 07/29/21 Dina Tolentino RN Specialty Skidway Worker Oncology 04/19/23 Jose Hugo DO [address] [place] [address] Physician Hematology/Oncology 04/19/23 Denise Wagoner LISW [address] [place] [address] Refinery Process Engineer Hematology/Oncology 04/21/23 Chester Patel MD [address] [place] [address] Cardiology 05/23/23 Sonal Barth [address] [facility] [facility] [place] [address] 05/23/23 Docketing Specialist Relationship Specialty Start Date End Date Jose Miguel Herbert MD [address] [facility] [place] [address] PCP - General Family Medicine 07/29/21 Dina Tolentino, RN Specialty Skidway Worker Oncology 04/19/23 Jose Hugo DO [address] [place] [address] Physician Hematology/Oncology 04/19/23 Denise Wagoner LISW [address] [place] [address] Refinery Process Engineer Hematology/Oncology 04/21/23 Chester Patel MD [address] [place] [place] [address] Cardiology 05/23/23 Sonal Barth [address] [facility] [place] [address] 05/23/23 Docketing Specialist Relationship Specialty Start Date End Date Jose Miguel Herbert MD [address] [facility] [place] [address] PCP - General Family Medicine 07/29/21 Dina Tolentino, RN Specialty Skidway Worker Oncology 04/19/23 Jose Hugo DO [address] [place] [facility] [place] [address] Physician Hematology/Oncology 04/19/23 Denise Wagoner LISW [address] [place] [address] Refinery Process Engineer Hematology/Oncology 04/21/23 Chester Patel MD [address] [place] [address] Cardiology 05/23/23 Sonal Barth [address] [place] [address] 05/23/23 Docketing Specialist Relationship Specialty Start Date End Date Jose Miguel Herbert MD [address] [facility] [place] [address] PCP - General Family Medicine 07/29/21 Dina Tolentino RN Specialty Skidway Worker Oncology 04/19/23 Jose Hugo DO [address] [place] [facility] [place] [address] Physician Hematology/Oncology 04/19/23 Denise Wagoner LISW [address] [place] [address] Refinery Process Engineer Hematology/Oncology 04/21/23 Chester Patel MD [address] [place] [address] Cardiology 05/23/23 Sonal Barth [address] [place] [address] 05/23/23 Docketing Specialist Relationship Specialty Start Date End Date Jose Miguel Herbert MD [address] [facility] [place] [address] PCP - General Family Medicine 07/29/21 Dina Tolentino RN Specialty Skidway Worker Oncology 04/19/23 Jose Hugo DO [address] [place] [address] Physician Hematology/Oncology 04/19/23 Denise Wagoner LISW [address] [place] [address] Refinery Process Engineer Hematology/Oncology 04/21/23 Chester Patel MD [address] [place] [address] Cardiology 05/23/23 Sonal Barth [address] [place] [address] 05/23/23 Docketing Specialist Relationship Specialty Start Date End Date Jose Miguel Herbert MD [address] [facility] [place] [address] PCP - General Family Medicine 07/29/21 Dina Tolentino, COLT Specialty Skidway Worker Oncology 04/19/23 Jose Hugo DO [address] [place] [address] Physician Hematology/Oncology 04/19/23 Denise Wagoner LISW [address] [place] [address] Refinery Process Engineer Hematology/Oncology 04/21/23 Chester Patel MD [address] [place] [address] Cardiology 05/23/23 Sonal Barth [address] [place] [address] 05/23/23 Docketing Specialist Relationship Specialty Start Date End Date Jose Miguel Herbert MD [address] [facility] [address] PCP - General Family Medicine 07/29/21 Dina Tolentino, RN Specialty Skidway Worker Oncology 04/19/23 Jose Hugo DO [address] [facility] [place] [address] Physician Hematology/Oncology 04/19/23 Denise Wagoner LISW 7[address] [place] [address] Refinery Process Engineer Hematology/Oncology 04/21/23 Chester Patel MD [address] [place] [address] Cardiology 05/23/23 Sonal Barth [address] [place] [address] 05/23/23 Docketing Specialist Relationship Specialty Start Date End Date Jose Miguel Herbert MD [address] [facility] [place] [address] PCP - General Family Medicine 07/29/21 Dina Tolentino RN Specialty Skidway Worker Oncology 04/19/23 Jose Hugo DO [address] [place] [facility] [place] [address] Physician Hematology/Oncology 04/19/23 Denise Wagoner LISW 7[address] [place] [address] Refinery Process Engineer Hematology/Oncology 04/21/23 Chester Patel MD [address] [place], [place] [id number] Cardiology 05/23/23 Sonal Barth [address] [place] [address] 05/23/23 Docketing Specialist Relationship Specialty Start Date End Date Jose Miguel Herbert MD [address] [facility] [place] [address] PCP - General Family Medicine 07/29/21 Dina Tolentino RN Specialty Skidway Worker Oncology 04/19/23 Jose Hugo DO [address] [facility] [place] [address] Physician Hematology/Oncology 04/19/23 Denise Wagoner LISW 7[address] [place] [address] Refinery Process Engineer Hematology/Oncology 04/21/23 Chester Patel MD [address] [place], [place] [id number] Cardiology 05/23/23 Sonal Barth [address] [facility] [place] [address] 05/23/23 Docketing Specialist Relationship Specialty Start Date End Date Jose Miguel Herbert MD [address] [facility] [place] [address] PCP - General Family Medicine 07/29/21 Dina Tolentino RN Specialty Skidway Worker Oncology 04/19/23 Jose Hugo DO [address] [place] [address] Physician Hematology/Oncology 04/19/23 Denise Wagoner LISW [address] [place] [address] Refinery Process Engineer Hematology/Oncology 04/21/23 Chester Patel MD [address] [place] [address] Cardiology 05/23/23 Justa Tucker [address] [place] [address] 05/23/23 Docketing Specialist Relationship Specialty Start Date End Date Jose Miguel Herbert MD [address] [place] [address] PCP - General Family Medicine 07/29/21 Dina Tolentino, RN Specialty Skidway Worker Oncology 04/19/23 Jose Hugo DO [address] [facility] [place] [address] Physician Hematology/Oncology 04/19/23 Denise Wagoner LISW [address] [place] [address] Refinery Process Engineer Hematology/Oncology 04/21/23 Chester Patel MD [address] [place] [address] Cardiology 05/23/23 Justa Tucker [address] [place] [address] 05/23/23 Docketing Specialist Relationship Specialty Start Date End Date Jose Miguel Herbert MD [address] [place] [address] PCP - General Family Medicine 07/29/21 Dina Tolentino, COLT Specialty Skidway Worker Oncology 04/19/23 Jose Hugo DO [address] [place] [address] Physician Hematology/Oncology 04/19/23 Denise Wagoner LISW [address] [place] [address] Refinery Process Engineer Hematology/Oncology 04/21/23 Chester Patel MD [address] [place] [address] Cardiology 05/23/23 Justa Tucker [address] [place] [address] 05/23/23 Docketing Specialist Relationship Specialty Start Date End Date Jose Miguel Herbert MD [address] [facility] [place] [address] PCP - General Family Medicine 07/29/21 Dina Tolentino RN Specialty Skidway Worker Oncology 04/19/23 Jose Hugo DO [address] [place] [facility] [place] [address] Physician Hematology/Oncology 04/19/23 Denise Wagoner LISW [address] [place] [address] Refinery Process Engineer Hematology/Oncology 04/21/23 Chester Patel MD [address] [place] [address] Cardiology 05/23/23 Justa Tucker [address] [place] [address] 05/23/23 Docketing Specialist Relationship Specialty Start Date End Date Jose Miguel Herbert MD [address] [facility] [place] [address] PCP - General Family Medicine 07/29/21 Dina Tolentino RN Specialty Skidway Worker Oncology 04/19/23 Jose Hugo DO [address] [place] [place] [address] Physician Hematology/Oncology 04/19/23 Brennen WagonerREESE [place] [address] [place] [address] Refinery Process Engineer Hematology/Oncology 04/21/23 Chester Patel MD [address] [place] [address] Cardiology 05/23/23 Justa Tucker [address] [place] [address] 05/23/23 Docketing Specialist Relationship Specialty Start Date End Date Jose Miguel Herbert MD [address] [place] [address] PCP - General Family Medicine 07/29/21 Docketing Specialist Relationship Specialty Start Date End Date Jose Miguel Herbert MD [address] [place] [address] PCP - General Family Medicine 07/29/21 Docketing Specialist Relationship Specialty Start Date End Date Jose Miguel Herbert MD [address] [place] [address] PCP - General Family Medicine 07/29/21 Docketing Specialist Relationship Specialty Start Date End Date Jose Miguel Herbert MD [address] [place] [address] PCP - General Family Medicine 07/29/21 Docketing Specialist Relationship Specialty Start Date End Date Jose Miguel Herbert MD [address] [place] [address] PCP - General Family Medicine 07/29/21 Docketing Specialist Relationship Specialty Start Date End Date Jose Miguel Herbert MD [address] [place] [address] PCP - General Family Medicine 07/29/21 Dina Tolentino RN Specialty Skidway Worker Oncology 04/19/23 Jose Hugo DO [address] [place] [address] Physician Hematology/Oncology 04/19/23 Denise Wagoner LISW [address] [place] [address] Refinery Process Engineer Hematology/Oncology 04/21/23 Chester Patel MD [address] [place] [address] Cardiology 05/23/23 Justa Tucker [address] [place] [address] 05/23/23 Docketing Specialist Relationship Specialty Start Date End Date Jose Miguel Herbert MD [address] [place] [address] PCP - General Family Medicine 07/29/21 Dina Tolentino RN Specialty Skidway Worker Oncology 04/19/23 Jose Hugo DO [address] [place] [address] Physician Hematology/Oncology 04/19/23 Denise Wagoner LISW [address] [place] [address] Refinery Process Engineer Hematology/Oncology 04/21/23 Chester Patel MD [address] [place] [address] Cardiology 05/23/23 Justa Tucker [address] [place] [address] 05/23/23 Docketing Specialist Relationship Specialty Start Date End Date Jose Miguel Herbert MD [address] [facility] [place] [address] PCP - General Family Medicine 07/29/21 Dina Tolentino, RN Specialty Skidway Worker Oncology 04/19/23 Jose Hugo DO [address] [place] [address] Physician Hematology/Oncology 04/19/23 Denise Wagoner LISW [address] [place] [address] Refinery Process Engineer Hematology/Oncology 04/21/23 Chester Patel MD [address] [place] [address] Cardiology 05/23/23 Justa Tucker [address] [place] [address] 05/23/23 Docketing Specialist Relationship Specialty Start Date End Date Jose Miguel Herbert MD [address] [place] [address] PCP - General Family Medicine 07/29/21 Dina Tolentino RN Specialty Skidway Worker Oncology 04/19/23 Jose Hugo DO [address] [place] [address] Physician Hematology/Oncology 04/19/23 Denise Wagoner LISW [address] [place] [address] Refinery Process Engineer Hematology/Oncology 04/21/23 Chester Patel MD [address] [place], [place] [address] Cardiology 05/23/23 Justa Tucker [address] [place] [address] 05/23/23 Docketing Specialist Relationship Specialty Start Date End Date Jose Miguel Herbert MD [address] [place] [address] PCP - General Family Medicine 07/29/21 Dina Tolentino RN Specialty Skidway Worker Oncology 04/19/23 Jose Hugo DO [address] [place] [address] Physician Hematology/Oncology 04/19/23 Denise Wagoner LISW [address] [place] [address] Refinery Process Engineer Hematology/Oncology 04/21/23 Chester Patel MD [address] [place] [address] Cardiology 05/23/23 Justa Tucker [address] [place] [address] 05/23/23 Docketing Specialist Relationship Specialty Start Date End Date Jose Miguel Herbert MD [address] [place] [address] PCP - General Family Medicine 07/29/21 Dina Tolentino RN Specialty Skidway Worker Oncology 04/19/23 Jose Hugo DO [address] [place] [address] Physician Hematology/Oncology 04/19/23 Denise Wagoner LISW [address] [place] [address] Refinery Process Engineer Hematology/Oncology 04/21/23 Chester Patel MD [address] [place], [place] [address] Cardiology 05/23/23 Justa Tucker [address] [place] [place] [address] 05/23/23 Docketing Specialist Relationship Specialty Start Date End Date Jose Miguel Herbert MD [address] [place] [address] PCP - General Family Medicine 07/29/21 Dina Tolentino RN Specialty Skidway Worker Oncology 04/19/23 Jose Hugo DO [address] [place] [address] Physician Hematology/Oncology 04/19/23 Denise Wagoner LISW [address] [place] [address] Refinery Process Engineer Hematology/Oncology 04/21/23 Chester Patel MD [address] [place] [address] Cardiology 05/23/23 Justa Tucker [address] [place] [address] 05/23/23 Docketing Specialist Relationship Specialty Start Date End Date Jose Miguel Herbert MD [address] [facility] [place] [address] PCP - General Family Medicine 07/29/21 Dina Tolentino RN Specialty Skidway Worker Oncology 04/19/23 Jose Hugo DO [address] [facility] [address] Physician Hematology/Oncology 04/19/23 Denise Wagoner LISW [address] [place] [address] Refinery Process Engineer Hematology/Oncology 04/21/23 Chester Patel MD [address] [place] [address] Cardiology 05/23/23 Darwin Tuckerverenakevan [address] [place] [address] 05/23/23 Docketing Specialist Relationship Specialty Start Date End Date Jose Miguel Herbert MD [address] [facility] [place] [address] PCP - General Family Medicine 07/29/21 Dina Tolentino, RN Specialty Skidway Worker Oncology 04/19/23 Jose Hugo DO [address] [place] [address] Physician Hematology/Oncology 04/19/23 Denise Wagoner LISW [address] [place] [address] Refinery Process Engineer Hematology/Oncology 04/21/23 Chester Patel MD [address] [place] [address] Cardiology 05/23/23 CaitlinDarwinverenakevan [address] [place] [address] 05/23/23 Docketing Specialist Relationship Specialty Start Date End Date Jose Miguel Herbert MD [address] [facility] [place] [address] PCP - General Family Medicine 07/29/21 Dina Tolentino RN Specialty Skidway Worker Oncology 04/19/23 Jose Hugo DO [address] [place] [address] Physician Hematology/Oncology 04/19/23 Denise Wagoner LISW [address] [place] [address] Refinery Process Engineer Hematology/Oncology 04/21/23 Chester Patel MD [address] [place] [address] Cardiology 05/23/23 CaitlinLuis Eduardo arreolawen [address] [place] [address] 05/23/23 Docketing Specialist Relationship Specialty Start Date End Date Jose Miguel Herbert MD [address] [facility] [place] [address] PCP - General Family Medicine 07/29/21 Dina Tolentino, COLT Specialty Skidway Worker Oncology 04/19/23 Jose Hugo DO [address] [place] [address] Physician Hematology/Oncology 04/19/23 Denise Wagoner LISW [address] [place] [address] Refinery Process Engineer Hematology/Oncology 04/21/23 Chester Patel MD [address] [place] [address] Cardiology 05/23/23 Caitlin Peterorlando [address] [place] [address] 05/23/23 Docketing Specialist Relationship Specialty Start Date End Date Jose Miguel Herbert MD [address] [place] [address] PCP - General Family Medicine 07/29/21 Dina Tolentino, COLT Specialty Skidway Worker Oncology 04/19/23 Jose Hugo DO [address] [facility] [place] [address] Physician Hematology/Oncology 04/19/23 Denise Wagoner LISW [address] [place] [address] Refinery Process Engineer Hematology/Oncology 04/21/23 Chester Patel MD [address] [place] [address] Cardiology 05/23/23 Peter Tuckersh [address] [place] [address] 05/23/23 Docketing Specialist Relationship Specialty Start Date End Date Jose Miguel Herbert MD [address] [facility] [place] [address] PCP - General Family Medicine 07/29/21 Dina Tolentino RN Specialty Skidway Worker Oncology 04/19/23 oJse Hugo DO [address] [place] [facility] [place] [address] Physician Hematology/Oncology 04/19/23 Denise Wagoner, LABORATORY SAMPLER [address] [place] [address] Refinery Process Engineer Hematology/Oncology 04/21/23 Chester Patel MD [address] [place] [address] Cardiology 05/23/23 Justa Tucker [address] [place] [address] 05/23/23 Docketing Specialist Relationship Specialty Start Date End Date Jose Miguel Herbert MD [address] [facility] [place] [address] PCP - General Family Medicine 07/29/21 Dina Tolentino RN Specialty Skidway Worker Oncology 04/19/23 Jose Hugo DO [address] [facility] [address] Physician Hematology/Oncology 04/19/23 Denise Wagoner LISW [address] [place] [address] Refinery Process Engineer Hematology/Oncology 04/21/23 Chester Patel MD [address] [place] [address] Cardiology 05/23/23 Justa Tucker [address] [place] [address] 05/23/23 Docketing Specialist Relationship Specialty Start Date End Date Jose Miguel Herbert MD [address] [place] [address] PCP - General Family Medicine 07/29/21 Dina Tolentino RN Specialty Skidway Worker Oncology 04/19/23 Jose Hugo DO [address] [place] [address] Physician Hematology/Oncology 04/19/23 Denise Wagoner LISW [address] [place] [address] Refinery Process Engineer Hematology/Oncology 04/21/23 Chester Patel MD [address] [place] [address] Cardiology 05/23/23 Justa Tucker [address] [place] [address] 05/23/23 Laverne Ramirez MD [address] [place] [address] Referring Internal Medicine 09/15/23 Jose Miguel Herbert MD [address] [place], [place] 037741 Home Care Provider Family Medicine 09/19/23 Gumaro Pé[place] [address] [place], [place] 128[address] Nephrology 10/23/23 Docketing Specialist Relationship Specialty Start Date End Date Jose Miguel Herbert MD [address] [place], [place] [address]78[address] PCP - General Family Medicine 07/29/21 Dina Tolentino RN Specialty Skidway Worker Oncology 04/19/23 Jose Hugo DO [address] [place], [place] 12[address] Physician Hematology/Oncology 04/19/23 Denise Wagoner LISW [address] [place] [address] Refinery Process Engineer Hematology/Oncology 04/21/23 Chester Patel MD [address] [place] [address] Cardiology 05/23/23 Justa Tucker [address] [place] [address] 05/23/23 Laverne Ramirez MD [address] [place] [address] Referring Internal Medicine 09/15/23 Jose Miguel Herbert MD [address] [place], [place] 59715691 Home Care Provider Family Medicine 09/19/23 Gumaro Pé[place] [address] [place], [place] 20[address] Nephrology 10/23/23 Docketing Specialist Relationship Specialty Start Date End Date Jose Miguel Herbert MD [address] [place], [place] 720981 PCP - General Family Medicine 07/29/21 Dina Tolentino, COLT Specialty Skidway Worker Oncology 04/19/23 Jose Hugo DO [address] [place], [place] 129991 Physician Hematology/Oncology 04/19/23 Denise Wagoner LISW [address] [place] [address] Refinery Process Engineer Hematology/Oncology 04/21/23 Chester Patel MD [address] [place], [place] 547[address] Cardiology 05/23/23 Justa Tucker [address] [place] [address] 05/23/23 Laverne Ramirez MD [address] [place] [address] Referring Internal Medicine 09/15/23 Jose Miguel Herbert MD [address] [place] [address] Home Care Provider Family Medicine 09/19/23 Gumaro Pé[place] [address] [place] [address] Nephrology 10/23/23 Docketing Specialist Relationship Specialty Start Date End Date Jose Miguel Herbert MD [address] [place], [place] 196211 PCP - General Family Medicine 07/29/21 Doup, Dina, RN Specialty Skidway Worker Oncology 04/19/23 Jose Hugo DO [address] [place], [place] 491601 Physician Hematology/Oncology 04/19/23 Denise Wagoner LISW [address] [place] [address] Refinery Process Engineer Hematology/Oncology 04/21/23 Chester Patel MD [address] [place] [address] Cardiology 05/23/23 Justa Tucker [address] [place] [address] 05/23/23 Laverne Ramirez MD [address] [place] [address] Referring Internal Medicine 09/15/23 Jose Miguel Herbert MD [address] [place], [place] [phone] Home Care Provider Family Medicine 09/19/23 Gumaro Pé[place] [address] [place] [address] Nephrology 10/23/23 Docketing Specialist Relationship Specialty Start Date End Date Jose Miguel Herbert MD [address] [place] [address] PCP - General Family Medicine 07/29/21 Dina Tolentino RN Specialty Skidway Worker Oncology 04/19/23 Jose Hugo DO [address] [facility] [place] [address] Physician Hematology/Oncology 04/19/23 Denise Wagoner LISW [address] [place] [address] Refinery Process Engineer Hematology/Oncology 04/21/23 Chester Patel MD [address] [place] [address] Cardiology 05/23/23 Justa Tucker [address] [place] [address] 05/23/23 Laverne Ramirez MD [address] [place] [address] Referring Internal Medicine 09/15/23 Jose Miguel Herbert MD [address] [place], [place] 39260691 Home Care Provider Family Medicine 09/19/23 Gumaro Pé[place] [address] [place], [place] [address]26[address] Nephrology 10/23/23 Docketing Specialist Relationship Specialty Start Date End Date Jose Miguel Herbert MD [address] [place], [place] 464561 PCP - General Family Medicine 07/29/21 Dina Tolentino, COLT Specialty Skidway Worker Oncology 04/19/23 Jose Hugo DO [address] [place], [place] 39979691 Physician Hematology/Oncology 04/19/23 Denise Wagoner LISW [address] [place] [address] Refinery Process Engineer Hematology/Oncology 04/21/23 Chester Patel MD [address] [place] [address] Cardiology 05/23/23 Justa Tucker [address] [place] [address] 05/23/23 Laverne Ramirez MD [address] [place], [place] 0119995 Referring Internal Medicine 09/15/23 Jose Miguel Herbert MD [address] [place], [place] 506541 Home Care Provider Family Medicine 09/19/23 Gumaro Pé[place] [address] [place] [address] Nephrology 10/23/23 Docketing Specialist Relationship Specialty Start Date End Date Jose Miguel Herbert MD [address] [place], [place] 366191 PCP - General Family Medicine 07/29/21 Dina Tolentino, COLT Specialty Skidway Worker Oncology 04/19/23 Jose Hugo DO [address] [place], [place] [id number] Physician Hematology/Oncology 04/19/23 Denise Wagoner LISW [address] [place] [address] Refinery Process Engineer Hematology/Oncology 04/21/23 Chester Patel MD [address] [place] [address] Cardiology 05/23/23 Justa Tucker [address] [place] [address] 05/23/23 Laverne Ramirez MD [address] [place] [id number] Referring Internal Medicine 09/15/23 Jose Miguel Herbert MD [facility] [place], [place] 457271 Home Care Provider Family Medicine 09/19/23 Gumaro Pé[place] [address] [place] [address] Nephrology 10/23/23 Docketing Specialist Relationship Specialty Start Date End Date Jose Miguel Herbert MD [address] [place] [address] PCP - General Family Medicine 07/29/21 Dina Tolentino RN Specialty Skidway Worker Oncology 04/19/23 Jose Hugo DO [address] [place] [address] Physician Hematology/Oncology 04/19/23 Denise Wagoner LISW [address] [place] [address] Refinery Process Engineer Hematology/Oncology 04/21/23 Chester Patel MD [address] [place] [address] Cardiology 05/23/23 Justa Tucker [address] [place] [address] 05/23/23 Laverne Ramirez MD [address] [place] [phone] Referring Internal Medicine 09/15/23 [place] [address] [place] [address] Home Care Provider Family Medicine 09/19/23 Gumaro Pé[place] [address] [place] [address] Nephrology 10/23/23 Docketing Specialist Relationship Specialty Start Date End Date Jose Miguel Hebrert MD [address] [place], [place] 819911 PCP - General Family Medicine 07/29/21 Dina Tolentino, COLT Specialty Skidway Worker Oncology 04/19/23 Jose uHgo DO [address] [place], [place] 80182691 Physician Hematology/Oncology 04/19/23 Denise Wagoner LISW [address] [place] [address] Refinery Process Engineer Hematology/Oncology 04/21/23 Chester Patel MD [address] [facility] [place] [address] Cardiology 05/23/23 Justa Tucker [address] [place] [address] 05/23/23 Laverne Ramirez MD [address] [place] [address] Referring Internal Medicine 09/15/23 Jose Miguel Herbert MD [address] [place], [place] 40964691 Home Care Provider Family Medicine 09/19/23 Gumaro [place] [address] [place] [address] Nephrology 10/23/23 Docketing Specialist Relationship Specialty Start Date End Date Jose Miguel Herbert MD [address] [place], [place] [phone] PCP - General Family Medicine 07/29/21 Dina Tolentino, RN Specialty Skidway Worker Oncology 04/19/23 Jose Hugo DO [address] [place], [place] 463721 Physician Hematology/Oncology 04/19/23 Denise Wagoner LISW [address] [place] [address] Refinery Process Engineer Hematology/Oncology 04/21/23 Chester Patel MD [address] [place], [place] 1410595 Cardiology 05/23/23 Justa Tucker [address] [place] [address] 05/23/23 Laverne Ramirez MD [address] [place] [address] Referring Internal Medicine 09/15/23 Jose Miguel Herbert MD [address] [place], [place] 306021 Home Care Provider Family Medicine 09/19/23 Gumaro [place] [address] [place] [address] Nephrology 10/23/23 Docketing Specialist Relationship Specialty Start Date End Date Jose Miguel Herbert MD [address] [place], [place] [id number] PCP - General Family Medicine 07/29/21 Dina Tolentino, RN Specialty Skidway Worker Oncology 04/19/23 Jose Hugo DO [address] [place], [place] 626571 Physician Hematology/Oncology 04/19/23 Denise Wagoner LISW [address] [place] [address] Refinery Process Engineer Hematology/Oncology 04/21/23 Chester Patel MD [address] [place] [address] Cardiology 05/23/23 Justa Tucker [address] [place] [address] 05/23/23 Laverne Ramirez MD [address] [place] [address] Referring Internal Medicine 09/15/23 Jose Miguel Herbert MD [address] [place], [place] [phone] Home Care Provider Family Medicine 09/19/23 Gumaro Pé[place] [address] [place] [address] Nephrology 10/23/23 Docketing Specialist Relationship Specialty Start Date End Date Jose Miguel Herbert MD [address] [place], [place] 067801 PCP - General Family Medicine 07/29/21 Dina Tolentino, RN Specialty Skidway Worker Oncology 04/19/23 Jose Hugo DO [address] [facility] [place], [place] 47[address] Physician Hematology/Oncology 04/19/23 Denise Wagoner, REESE [address] [place] [address] Refinery Process Engineer Hematology/Oncology 04/21/23 Chester Patel MD [address] [place] [address] Cardiology 05/23/23 Justa Tucker [address] [place] [address] 05/23/23 Laverne Ramirez MD [address] [place] [address] Referring Internal Medicine 09/15/23 Jose Miguel Herbert MD [address] [place], [place] [phone] Home Care Provider Family Medicine 09/19/23 Gumaro Pé[place] [address] [place], [place] 2578830 Nephrology 10/23/23 Docketing Specialist Relationship Specialty Start Date End Date Jose Miguel Herbert MD [address] [place], [place] 252021 PCP - General Family Medicine 07/29/21 Dina Tolentino RN Specialty Skidway Worker Oncology 04/19/23 Jose Hugo DO [address] [place], [place] [phone] Physician Hematology/Oncology 04/19/23 Denise Wagoner LISW [address] [place] [address] Refinery Process Engineer Hematology/Oncology 04/21/23 Chester Patel MD [address] [place] [address] Cardiology 05/23/23 uJsta Tucker [address] [place] [address] 05/23/23 Laverne Ramirez MD [address] [place], [place] [id number] Referring Internal Medicine 09/15/23 Jose Miguel Herbert MD [address] [place], [place] [id number] Home Care Provider Family Medicine 09/19/23 Gum[place] [address] [place] [address] Nephrology 10/23/23 Docketing Specialist Relationship Specialty Start Date End Date Jose Miguel Herbert MD [address] [place], [place] [id number] PCP - General Family Medicine 07/29/21 Dina Tolentino, COLT Specialty Skidway Worker Oncology 04/19/23 Jose Hugo DO [address] [place], [place] [id number] Physician Hematology/Oncology 04/19/23 Densie Wagoner LISW [address] [place] [address] Refinery Process Engineer Hematology/Oncology 04/21/23 Chester Patel MD [address] Desk -4 [place] [address] Cardiology 05/23/23 Justa Tucker [address] Desk [address]-4 [place] [address] 05/23/23 Laverne Ramirez MD [address] [place] [address] Referring Internal Medicine 09/15/23 Jose Miguel Herbert MD [facility] [place], [place] 126451 Home Care Provider Family Medicine 09/19/23 Gumaro [place] [address] [place] [address] Nephrology 10/23/23 Docketing Specialist Relationship Specialty Start Date End Date Jose Miguel Herbert MD [address] [place] [address] [id number] PCP - General Family Medicine 07/29/21 Dina Tolentino RN Specialty Skidway Worker Oncology 04/19/23 Jose Hugo DO [address] [place], [place] [phone] Physician Hematology/Oncology 04/19/23 Denise Wagoner LISW [address] [place] [address] Refinery Process Engineer Hematology/Oncology 04/21/23 [place] [address] [place], [place] [address]d Ave Desk -[address] [place], [place] [id number] Cardiology 05/23/23 Justa Tucker [address] Desk [address]-4 [place] [address] 05/23/23 Laverne Ramirez MD [address] [place] [address] Referring Internal Medicine 09/15/23 Jose Miguel Herbert MD [address] [place], [place] 764981 Home Care Provider Family Medicine 09/19/23 Gumaro [place] [address] [place] [address] Nephrology 10/23/23 Docketing Specialist Relationship Specialty Start Date End Date Jose Miguel Herbert MD [address] [place] [address] PCP - General Family Medicine 07/29/21 Dina Tolentino RN Specialty Skidway Worker Oncology 04/19/23 Jose Hugo DO [address] [place] [address] Physician Hematology/Oncology 04/19/23 Denise Wagoner LISW [address] [place] [address] Refinery Process Engineer Hematology/Oncology 04/21/23 Chester Patel MD [address] [place] [phone] Cardiology 05/23/23 Justa Tucker [address] [facility] [address] [place] [address] 05/23/23 Laverne Ramirez MD [address] [place] [address] Referring Internal Medicine 09/15/23 Jose Miguel Herbert MD [address] [place], [place] 133791 Home Care Provider Family Medicine 09/19/23 Gum[place] [address] [place] [address] Nephrology 10/23/23 Docketing Specialist Relationship Specialty Start Date End Date Jose Miguel Herbert MD [address] [place], [place] 651741 PCP - General Family Medicine 07/29/21 Dina Tolentino, RN Specialty Skidway Worker Oncology 04/19/23 Jose Hugo DO [address] [place], [place] 382291 Physician Hematology/Oncology 04/19/23 Denise Wagoner LISW [address] [place] [address] Refinery Process Engineer Hematology/Oncology 04/21/23 Chester Patel MD [address] [facility] 34 [place] [phone] Cardiology 05/23/23 Justa Tucker [address] Desk 3-4 [place] [address] 05/23/23 Laverne Ramirez MD [address] [place], [place] 8600195 Referring Internal Medicine 09/15/23 Jose Miguel Herbert MD [address] [place] [address] Home Care Provider Family Medicine 09/19/23 Gum[place] [address] [place] [address] Nephrology 10/23/23 Docketing Specialist Relationship Specialty Start Date End Date Jose Miguel Herbert MD [address] [place], [place] 473001 PCP - General Family Medicine 07/29/21 Dina Tolentino, RN Specialty Skidway Worker Oncology 04/19/23 Jose Hugo DO [address] [place], [place] 632831 Physician Hematology/Oncology 04/19/23 Denise Wagoner LISW [address] [place] [address] Refinery Process Engineer Hematology/Oncology 04/21/23 Chester Patel MD [address] Desk J3-4 [place], [place] [id number] Cardiology 05/23/23 Justa Tucker [address] Desk J[address] [place] [address] 05/23/23 Laverne Ramirez MD [address] [place] [address] Referring Internal Medicine 09/15/23 Jose Miguel Herbert MD [address] [place], [place] [id number] Home Care Provider Family Medicine 09/19/23 Gumaro [place] [address] [place] [address] Nephrology 10/23/23 Docketing Specialist Relationship Specialty Start Date End Date Jose Miguel Herbert MD [address] [place], [place] 689661 PCP - General Family Medicine 07/29/21 Dina Tolentino RN Specialty Skidway Worker Oncology 04/19/23 Jose Hugo DO [address] [place], [place] [phone] Physician Hematology/Oncology 04/19/23 Denise Wagoner LISW [address] [place] [address] Refinery Process Engineer Hematology/Oncology 04/21/23 Chester Patel MD [address] Desk J[address] [place] [address] Cardiology 05/23/23 Justa Tucker [address] Desk J[address] [place] [address] 05/23/23 Laverne Ramirez MD [address] [place], [place] 3351095 Referring Internal Medicine 09/15/23 Jose Miguel Herbert MD [address] [place], [place] [id number] Home Care Provider Family Medicine 09/19/23 Gumaro [place] [address] [place], [place] 7287230 Nephrology 10/23/23 Team Status: Inactive Member Role Status Dates Dr. Jose Miguel Herbert MD Primary Care Provider Active Dr. Jose Miguel Fernandez MD Emergency Provider Active Team Status: Inactive Member Role Status Dates Dr. Jose Miguel Herbert MD Primary Care Provider Active Dr. Jonathan Estrada MD Emergency Provider Active Docketing Specialist Relationship Specialty Start Date End Date Jose Miguel Herbert MD [address] [place], [place] 345151 PCP - General Family Medicine 07/29/21 Dina Tolentino, RN Specialty Skidway Worker Oncology 04/19/23 Jose Hugo DO [address] [place], [place] 496621 Physician Hematology/Oncology 04/19/23 Denise Wagoner, REESE [address] [place] [address] Refinery Process Engineer Hematology/Oncology 04/21/23 Chester Patel MD [address] Desk J[address] [place] [address] Cardiology 05/23/23 Justa Tucker [address] Desk J[address] [place] [address] 05/23/23 Laverne Ramirez MD [address] [place] [address] Referring Internal Medicine 09/15/23 Jose Miguel Herbert MD [address] [place], [place] [phone] Home Care Provider Family Medicine 09/19/23 Gumaro [place] [address] [place], [place] 8377130 Nephrology 10/23/23 Docketing Specialist Relationship Specialty Start Date End Date Jose Miguel Herbert MD [address] [place], [place] 433901 PCP - General Family Medicine 07/29/21 Dina Tolentino RN Specialty Skidway Worker Oncology 04/19/23 Jose Hugo DO [address] [place], [place] [id number] Physician Hematology/Oncology 04/19/23 Denise Wagoner LISW [address] [place] [address] Refinery Process Engineer Hematology/Oncology 04/21/23 Chester Patel MD [address] Desk J[address] [place] [address] Cardiology 05/23/23 Justa Tucker [address] Desk J[address] [place] [address] 05/23/23 Laverne Ramirez MD [address] [place], [place] 2852595 Referring Internal Medicine 09/15/23 Jose Miguel Herbert MD [address] [place], [place] 94844691 Home Care Provider Family Medicine 09/19/23 Gumaro [place] [address] [place] [address] Nephrology 10/23/23 Docketing Specialist Relationship Specialty Start Date End Date Jose Miguel Herbert MD [address] [place], [place] [phone] PCP - General Family Medicine 07/29/21 Dina Tolentino, COLT Specialty Skidway Worker Oncology 04/19/23 Jose Hugo DO [address] [place], [place] [id number] Physician Hematology/Oncology 04/19/23 Denise Wagoner LISW [address] [place] [address] Refinery Process Engineer Hematology/Oncology 04/21/23 Chester Patel MD [address] Desk -4 [place] [address] Cardiology 05/23/23 Justa Tucker [address] Desk [address]-4 [place] [address] 05/23/23 Laverne Ramirez MD [address] [place] [address] Referring Internal Medicine 09/15/23 Jose Miguel Herbert MD [facility] [place], [place] 113351 Home Care Provider Family Medicine 09/19/23 Gumaro [place] [address] [place] [address] Nephrology 10/23/23 Docketing Specialist Relationship Specialty Start Date End Date Jose Miguel Herbert MD [address] [place] [address] 646971 PCP - General Family Medicine 07/29/21 Dina Tolentino RN Specialty Skidway Worker Oncology 04/19/23 Jose Hugo DO [address] [place], [place] [phone] Physician Hematology/Oncology 04/19/23 Denise Wagoner LISW [address] [place] [address] Refinery Process Engineer Hematology/Oncology 04/21/23 [place] [address] [place], [place] [address]d Ave Desk -[address] [place], [place] 390[address] Cardiology 05/23/23 Justa Tucker [address] Desk [address]-4 [place] [address] 05/23/23 Laverne Ramirez MD [address] [place] [address] Referring Internal Medicine 09/15/23 Jose Miguel Herbert MD [address] [place], [place] 860261 Home Care Provider Family Medicine 09/19/23 Gumaro [place] [address] [place] [address] Nephrology 10/23/23 Docketing Specialist Relationship Specialty Start Date End Date Jose Miguel Herbert MD [address] [place] [address] PCP - General Family Medicine 07/29/21 Dina Tolentino RN Specialty Skidway Worker Oncology 04/19/23 Jose Hugo DO [address] [place] [address] Physician Hematology/Oncology 04/19/23 Denise Wagoner LISW [address] [place] [address] Refinery Process Engineer Hematology/Oncology 04/21/23 Chester Patel MD [address] [place] [phone] Cardiology 05/23/23 Justa Tucker [address] [facility] [address] [place] [address] 05/23/23 Laverne Ramirez MD [address] [place] [address] Referring Internal Medicine 09/15/23 Jose Miguel Herbert MD [address] [place], [place] 973541 Home Care Provider Family Medicine 09/19/23 Gumaro [place] [address] [place] [address] Nephrology 10/23/23 Docketing Specialist Relationship Specialty Start Date End Date Jose Miguel Herbert MD [address] [place], [place] 490081 PCP - General Family Medicine 07/29/21 Dina Tolentino, RN Specialty Skidway Worker Oncology 04/19/23 Jose Hugo DO [address] [place], [place] 927621 Physician Hematology/Oncology 04/19/23 Denise Wagoner LISW [address] [place] [address] Refinery Process Engineer Hematology/Oncology 04/21/23 Chester Patel MD [address] [facility] 34 [place] [phone] Cardiology 05/23/23 Justa Tucker [address] Desk 3-4 [place] [address] 05/23/23 Laverne Ramirez MD [address] [place], [place] 4198895 Referring Internal Medicine 09/15/23 Jose Miguel Herbert MD [address] [place] [address] Home Care Provider Family Medicine 09/19/23 Gumaro [place] [address] [place] [address] Nephrology 10/23/23 Docketing Specialist Relationship Specialty Start Date End Date Jose Miguel Herbert MD [address] [place], [place] 895461 PCP - General Family Medicine 07/29/21 Dina Tolentino, RN Specialty Skidway Worker Oncology 04/19/23 Jose Hugo DO [address] [place], [place] 442151 Physician Hematology/Oncology 04/19/23 Denise Wagoner LISW [address] [place] [address] Refinery Process Engineer Hematology/Oncology 04/21/23 Chester Patel MD [address] Desk J[address] [place], [place] 5554595 Cardiology 05/23/23 Justa Tucker [address] Desk J[address] [place] [address] 05/23/23 Laverne Ramirez MD [address] [place] [address] Referring Internal Medicine 09/15/23 Jose Miguel Herbert MD [address] [place], [place] [id number] Home Care Provider Family Medicine 09/19/23 Gumaro [place] [address] [place] [address] Nephrology 10/23/23 Docketing Specialist Relationship Specialty Start Date End Date Jose Miguel Herbert MD [address] [place], [place] 066601 PCP - General Family Medicine 07/29/21 Dina Tolentino RN Specialty Skidway Worker Oncology 04/19/23 Jose Hugo DO [address] [place], [place] [id number] Physician Hematology/Oncology 04/19/23 Denise Wagoner LISW [address] [place] [address] Refinery Process Engineer Hematology/Oncology 04/21/23 Chester Patel MD [address] Desk J[address] [place] [address] Cardiology 05/23/23 Justa Tucker [address] Desk J[address] [place] [address] 05/23/23 Laverne Ramirez MD [address] [place], [place] 5425995 Referring Internal Medicine 09/15/23 Jose Miguel Herbert MD [address] [place], [place] [phone] Home Care Provider Family Medicine 09/19/23 Gumaro [place] [address] [place] [address] Nephrology 10/23/23 Docketing Specialist Relationship Specialty Start Date End Date Jose Miguel Herbert MD [address] [place], [place] 971981 PCP - General Family Medicine 07/29/21 Dina Tolentino, RN Specialty Skidway Worker Oncology 04/19/23 Jose Hugo DO [address] [place], [place] [phone] Physician Hematology/Oncology 04/19/23 Denise Wagoner LISW [address] [place] [address] Refinery Process Engineer Hematology/Oncology 04/21/23 Chester Patel MD [address] Desk J[address] [place] [address] Cardiology 05/23/23 Justa Tucker [address] Desk J[address] [place] [address] 05/23/23 Laverne Ramirez MD [address] [place] [id number] Referring Internal Medicine 09/15/23 Jose Miguel Herbert MD [address] [place], [place] [phone] Home Care Provider Family Medicine 09/19/23 Gumaro [place] [address] [place] [address] Nephrology 10/23/23 Docketing Specialist Relationship Specialty Start Date End Date Jose Miguel Herbert MD [address] [place], [place] [id number] PCP - General Family Medicine 07/29/21 Dina Tolentino, COLT Specialty Skidway Worker Oncology 04/19/23 Jose Hugo DO [address] [place], [place] 971481 Physician Hematology/Oncology 04/19/23 Denise Wagoner LISW [address] [place] [address] Refinery Process Engineer Hematology/Oncology 04/21/23 Chester Patel MD [address] Desk -4 [place], [place] 6061195 Cardiology 05/23/23 Justa Tucker [address] Desk J[address] [place] [address] 05/23/23 Laverne Ramirez MD [address] [place] 4217395 Referring Internal Medicine 09/15/23 Jose Miguel Herbert MD [address] [place], [place] 309041 Home Care Provider Family Medicine 09/19/23 Gumaro [place] [address] [place] [address] Nephrology 10/23/23 Docketing Specialist Relationship Specialty Start Date End Date Jose Miguel Herbert MD [address] [place], [place] 346991 PCP - General Family Medicine 07/29/21 Dina Tolentino RN Specialty Skidway Worker Oncology 04/19/23 Jose Hugo DO [address] [place], [place] [id number] Physician Hematology/Oncology 04/19/23 Denise Wagoner LISW [address] [place] [address] Refinery Process Engineer Hematology/Oncology 04/21/23 Chester Patel MD [address] Desk [place] 1212395 Cardiology 05/23/23 Justa Tucker [address] Desk -[address] [place] [address] 05/23/23 Laverne Ramirez MD [address] [place] [address] Referring Internal Medicine 09/15/23 Jose Miguel Herbert MD [address] [place], [place] 458691 Home Care Provider Family Medicine 09/19/23 Gumaro [place] [address] [place] [address] Nephrology 10/23/23 Docketing Specialist Relationship Specialty Start Date End Date Jose Miguel Herbert MD [address] [place], [place] 560251 PCP - General Family Medicine 07/29/21 Dina Tolentino RN Specialty Skidway Worker Oncology 04/19/23 Jose Hugo DO [address] [place], [place] [id number] Physician Hematology/Oncology 04/19/23 Denise Wagoner LISW [address] [place] [address] Refinery Process Engineer Hematology/Oncology 04/21/23 Chester Patel MD [address] Desk 3-4 [place] [address] Cardiology 05/23/23 Justa Tucker [address] Desk J3-[address] [place] [address] 05/23/23 Laverne Ramirez MD [address] [place] [address] Referring Internal Medicine 09/15/23 Jose Miguel Herbert MD [address] [place], [place] 016531 Home Care Provider Family Medicine 09/19/23 Gumaro [place] [address] [place] [address] Nephrology 10/23/23 Docketing Specialist Relationship Specialty Start Date End Date Jose Miguel Herbert MD [address] [place] [address] PCP - General Family Medicine 07/29/21 Dina Tolentino RN Specialty Skidway Worker Oncology 04/19/23 Jose Hugo DO [address] [place], [place] [phone] Physician Hematology/Oncology 04/19/23 Denise Wagoner LISW [address] [place] [address] Refinery Process Engineer Hematology/Oncology 04/21/23 Chester Patel MD [address] [facility] 34 [place] [address] Cardiology 05/23/23 Justa Tucker [address] Desk 3-4 [place] [phone] 05/23/23 Laverne Ramirez MD [address] [place] [address] Referring Internal Medicine 09/15/23 Jose Miguel Herbert MD [facility] [place], [place] 102011 Home Care Provider Family Medicine 09/19/23 Gumaro [place] [address] [place] [address] Nephrology 10/23/23 Docketing Specialist Relationship Specialty Start Date End Date Jose Miguel Herbert MD [address] [place], [place] 658601 PCP - General Family Medicine 07/29/21 Dina Tolentino RN Specialty Skidway Worker Oncology 04/19/23 Jose Hugo DO [address] [place] [address] Physician Hematology/Oncology 04/19/23 Denise Wagoner LISW [address] [place] [address] Refinery Process Engineer Hematology/Oncology 04/21/23 Chester Patel MD [address] Desk J[address] [place] [address] Cardiology 05/23/23 Justa Tucker [address] Desk J[address] [place] [address] 05/23/23 Laverne Ramirez MD [address] [place] [address] Referring Internal Medicine 09/15/23 Jose Miguel Herbert MD [address] [place], [place] 526941 Home Care Provider Family Medicine 09/19/23 Gumaro [place] [address] [place] [address] Nephrology 10/23/23 Docketing Specialist Relationship Specialty Start Date End Date Jose Miguel Hebrert MD [address] [place], [place] 687971 PCP - General Family Medicine 07/29/21 Dina Tolentino RN Specialty Skidway Worker Oncology 04/19/23 Jose Hugo DO [address] [place], [place] 612801 Physician Hematology/Oncology 04/19/23 Denise Wagoner LISW [address] [place] [address] Refinery Process Engineer Hematology/Oncology 04/21/23 Chester Patel MD [address] Desk J[address] [place] [address] Cardiology 05/23/23 Justa Tucker [address] Desk J[address] [place] [address] 05/23/23 Laverne Ramirez MD [address] [place] [address] Referring Internal Medicine 09/15/23 Jose Miguel Herbert MD [facility] [place], [place] 401391 Home Care Provider Family Medicine 09/19/23 Gumaro Pé[place] [address] [place] [address] Nephrology 10/23/23 Docketing Specialist Relationship Specialty Start Date End Date Jose Miguel Herbert MD [address] [place] [address] 827481 PCP - General Family Medicine 07/29/21 Dina Tolentino, RN Specialty Skidway Worker Oncology 04/19/23 Jose Hugo DO [address] [place], [place] [id number] Physician Hematology/Oncology 04/19/23 Denise Wagoner LISW [address] [place] [address] Refinery Process Engineer Hematology/Oncology 04/21/23 Chester Patel MD [address] Desk J[address] [place] [address] Cardiology 05/23/23 Justa Tucker [address] Desk [address] [place] [address] 05/23/23 Laverne Ramirez MD [address] [place] [address] Referring Internal Medicine 09/15/23 Jose Miguel Herbert MD [facility] [place], [place] [id number] Home Care Provider Family Medicine 09/19/23 Gumaro [place] [address] [place] [address] Nephrology 10/23/23 Jess Alcaraz APRN.BOOSTER ASSEMBLER [facility] [place], [place] [id number] Jd Edwards Family [facility] 08/24/24 Sheree Fabian PA-C [address] [place] [address] [id number] Jd Edwards Family Medicine 08/24/24 Docketing Specialist Relationship Specialty Start Date End Date Jose Miguel Herbert MD [address] [place], [place] [id number] PCP - General Family Medicine 07/29/21 Dina Tolentino, RN Specialty Skidway Worker Oncology 04/19/23 Jose Hugo DO [address] [place], [place] [phone] Physician Hematology/Oncology 04/19/23 Denise Wagoner, REESE [address] [place] [address] Refinery Process Engineer Hematology/Oncology 04/21/23 Chester Patel MD [address] Desk J[address] [place] [address] Cardiology 05/23/23 Justa Tucker [address] Desk J[address] [place] [address] 05/23/23 Laverne Ramirez MD [address] [place] [address] Referring Internal Medicine 09/15/23 Jose Miguel Herbert MD [address] [place] [address] 693701 Home Care Provider Family Medicine 09/19/23 Gumaro Pé[place] [address] [place], [place] 5426030 Nephrology 10/23/23 Jess Alcaraz APRN.CNP [address] [place], [place] 043421 Jd Edwards Family Medicine 08/24/24 Sheree Fabian PA-C [address] [place], [place] 717331 Jd Edwards Family Medicine 08/24/24 Docketing Specialist Relationship Specialty Start Date End Date Jose Miguel Herbert MD [address] [place] [address] 009491 PCP - General Family Medicine 07/29/21 Dina Tolentino RN Specialty Skidway Worker Oncology 04/19/23 Jose Hugo DO [address] [place] [address] Physician Hematology/Oncology 04/19/23 Denise Wagoner LISW [address] [place] [address] Refinery Process Engineer Hematology/Oncology 04/21/23 Chester Patel MD [address] Desk J[address] [place], [place] 4433895 Cardiology 05/23/23 Justa Tucker [address] Desk J[address] [place] [address] 05/23/23 Laverne Ramirez MD [address] [place] [address] Referring Internal Medicine 09/15/23 Jose Miguel Herbert MD [address] [place] [address] 987341 Home Care Provider Family Medicine 09/19/23 Gumaro [place] [address] [place] [address] Nephrology 10/23/23 Jess Alcaraz APRN.BOOSTER ASSEMBLER [address] [place] [address] Jd Edwards Family Medicine 08/24/24 Sheree Fabian PA-C [address] [place], [place] [id number] Jd Edwards Family Medicine 08/24/24 Docketing Specialist Relationship Specialty Start Date End Date Jose Miguel Herbert MD [address] [place], [place] [id number] PCP - General Family Medicine 07/29/21 Dina Tolentino, RN Specialty Skidway Worker Oncology 04/19/23 Jose Hugo DO [address] [place], [place] [id number] Physician Hematology/Oncology 04/19/23 Denise Wagoner LISW [address] [place] [address] Refinery Process Engineer Hematology/Oncology 04/21/23 Chester Patel MD [address] Desk J[address] [place], [place] [id number] Cardiology 05/23/23 Justa Tucker [address] Desk [address] [place] [address] 05/23/23 Laverne Ramirez MD [address] [place], [place] [phone] Referring Internal Medicine 09/15/23 Jose Miguel Herbert MD [facility] [place], [place] [phone] Home Care Provider Family Medicine 09/19/23 Gumaro [place] [address] [place] [address] Nephrology 10/23/23 Jess Alcaraz APRN.BOOSTER ASSEMBLER [address] [place], [place] [phone] Jd Edwards Family Medicine 08/24/24 Sheree Fabian PA-C [address] [place], [place] [id number] Jd Edwards Family Medicine 08/24/24 Docketing Specialist Relationship Specialty Start Date End Date Jose Miguel Herbert MD [address] [place], [place] 551681 PCP - General Family Medicine 07/29/21 Dina Tolentino RN Specialty Skidway Worker Oncology 04/19/23 Jose Hugo DO [address] [place], [place] [phone] Physician Hematology/Oncology 04/19/23 Denise Wagoner LISW [address] [place] [address] Refinery Process Engineer Hematology/Oncology 04/21/23 Chester Patel MD [address] Desk [facility] [place], [place] [phone] Cardiology 05/23/23 Justa Tucker [address] [address] 05/23/23 Laverne Ramirez MD [address] [place] [address] Referring Internal Medicine 09/15/23 Jose Miguel Herbert MD [address] [place], [place] 033691 Home Care Provider Family Medicine 09/19/23 Gumaro Pé[place] [address] [place] [address] Nephrology 10/23/23 Jess Alcaraz APRN.BOOSTER ASSEMBLER [address] [place], [place] 555391 Jd Edwards Family Medicine 08/24/24 Sheree Fabian PA-C [address] [place] [address] Jd Edwards Family Medicine 08/24/24 Docketing Specialist Relationship Specialty Start Date End Date Jose Miguel Herbert MD [address] [place], [place] 823931 PCP - General Family Medicine 07/29/21 Dina Tolentino RN Specialty Skidway Worker Oncology 04/19/23 Jose Hugo DO [address] [place] [address] Physician Hematology/Oncology 04/19/23 Denise Wagoner LISW [address] [place] [address] Refinery Process Engineer Hematology/Oncology 04/21/23 Chester Patel MD [facility] [address] [place] [phone] Cardiology 05/23/23 Justa Tucker [address] [facility] [address] [address] 05/23/23 Laverne Ramirez MD [address] [place], [place] [phone] Referring Internal Medicine 09/15/23 Jose Miguel Herbert MD [address] [place] [address] Home Care Provider Family Medicine 09/19/23 Gumaro [place] [address] [place] [address] Nephrology 10/23/23 Jess Alcaraz APRN.BOOSTER ASSEMBLER [address] [place] [address] Jd Edwards Family Medicine 08/24/24 Sheree Fabian PA-C [address] [place], [place] 649521 Jd Edwards Family Medicine 08/24/24 Docketing Specialist Relationship Specialty Start Date End Date Jose Miguel Herbert MD [address] [place], [place] 746991 PCP - General Family Medicine 07/29/21 Dina Tolentino, COLT Specialty Skidway Worker Oncology 04/19/23 Jose Hugo DO [address] [place] [address] Physician Hematology/Oncology 04/19/23 Denise Wagoner LISW [address] [place] [address] Refinery Process Engineer Hematology/Oncology 04/21/23 [place] [address] [place], [place] [address] [place] [phone] Cardiology 05/23/23 Justa Tucker [address] [place] [id number] 05/23/23 Laverne Ramirez MD [address] [place], [place] 1380995 Referring Internal Medicine 09/15/23 Jose Miguel Herbert MD [address] [place], [place] [id number] Home Care Provider Family Medicine 09/19/23 [place] [address] [place] [address] Nephrology 10/23/23 Jess Alcaraz APRN.BOOSTER ASSEMBLER [address] [place], [place] [phone] Jd Edwards [facility] 08/24/24 Sheree Fabian PA-C [address] [place], [place] [phone] [facility] 08/24/24 Docketing Specialist Relationship Specialty Start Date End Date Jose Miguel Herbert MD [address] [place], [place] [id number] PCP - General Family Medicine 07/29/21 Dina Tolentino RN Specialty Skidway Worker Oncology 04/19/23 Jose Hugo DO [address] [place], [place] 660881 Physician Hematology/Oncology 04/19/23 Denise Wagoner LISW [address] [place] [address] Refinery Process Engineer Hematology/Oncology 04/21/23 Chester Patel MD [address] [place] [address] Cardiology 05/23/23 Justa Tucker [address] [place] [place] [address] 05/23/23 Laverne Ramirez MD [address] [place] [address] Referring Internal Medicine 09/15/23 Jose Miguel Herbert MD [address] [place], [place] [id number] Home Care Provider Family Medicine 09/19/23 Guamro [place] [address] [place] [address] Nephrology 10/23/23 Jess Alcaraz APRN.CNP [address] [place], [place] [phone] Jd Edwards Family [facility] 08/24/24 Sheree Fabian PA-C [address] [place], [place] [id number] Jd Edwards Family [facility] 08/24/24 Docketing Specialist Relationship Specialty Start Date End Date Jose Miguel Herbert MD [address] [place], [place] [phone] PCP - General Family Medicine 07/29/21 Dina Tolentino RN Specialty Skidway Worker Oncology 04/19/23 Jose Hugo DO [address] [place], [place] [phone] Physician Hematology/Oncology 04/19/23 Denise Wagoner LISW [address] [place] [address] Refinery Process Engineer Hematology/Oncology 04/21/23 Chester Patel MD [address] [place] [address] Cardiology 05/23/23 Justa Tucker [address] [place] [place] [address] 05/23/23 Laverne Ramirez MD [address] [place] [address] Referring Internal Medicine 09/15/23 Jose Miguel Herbert MD [address] [place], [place] [address]91 Home Care Provider Family Medicine 09/19/23 Gum[place] [address] [place], [place] [id number] Nephrology 10/23/23 Jess Alcaraz APRN.BOOSTER ASSEMBLER [address] [place], [place] 759701 Jd Edwards Family [facility] 08/24/24 Sheree Fabian PA-C [address] [place] [address] Jd Edwards Family [facility] 08/24/24 Docketing Specialist Relationship Specialty Start Date End Date Jose Miguel Herbert MD [facility] [place] [address] PCP - General Family Medicine 07/29/21 Dina Tolentino, COLT Specialty Skidway Worker Oncology 04/19/23 Jose Hugo DO [address] [place] [address] Physician Hematology/Oncology 04/19/23 Denise Wagoner LISW [address] [place] [address] Refinery Process Engineer Hematology/Oncology 04/21/23 Chester Patel MD [address] [place] [address] Cardiology 05/23/23 Justa Tucker [address] [place] [place] [address] 05/23/23 [place] [address] [place] [address] Referring Internal Medicine 09/15/23 Jose Miguel Herbert MD [address] [place], [place] 122811 Home Care Provider Family Medicine 09/19/23 Gumaro [place] [address] [place] [address] Nephrology 10/23/23 Jess Alcaraz APRN.BOOSTER ASSEMBLER [address] [place], [place] [phone] Jd Edwards Family [facility] 08/24/24 Sheree Fabian PA-C [address] [place], [place] 499881 Jd Edwards Family [facility] 08/24/24 Docketing Specialist Relationship Specialty Start Date End Date Jose Miguel Herbert MD [facility] [place], [place] 537181 PCP - General Family Medicine 07/29/21 Dina Tolentino, COLT Specialty Skidway Worker Oncology 04/19/23 Jose Hugo DO [address] [place] [address] Physician Hematology/Oncology 04/19/23 Denise Wagoner LISW [address] [place] [address] Refinery Process Engineer Hematology/Oncology 04/21/23 Chester Patel MD [address] [facility] [place] [address] [place] [address] Cardiology 05/23/23 Justa Tucker [address] [facility] [address] [place] [address] 05/23/23 [place] [address] [place] [address] Referring Internal Medicine 09/15/23 Jose Miguel Herbert MD [facility] [place], [place] [phone] Home Care Provider Family Medicine 09/19/23 Gum[place] [address] [place] [address] Nephrology 10/23/23 Jess Alcaraz APRN.BOOSTER ASSEMBLER [address] [place], [place] [phone] Jd Edwards Family [facility] 08/24/24 Sheree Fabian PA-C [address] [place], [place] [phone] Jd Edwards Family [facility] 08/24/24 Team Status: Active Member Role Status [...] Provider Active Start : January 14, 2025 Docketing Specialist Relationship Specialty Start Date End Date Jose Miguel Herbert MD [address] [place], [place] [phone] PCP - General Family Medicine 07/29/21 Dina Tolentino RN Specialty Skidway Worker Oncology 04/19/23 Jose Hugo DO [address] [place], [place] [phone] Physician Hematology/Oncology 04/19/23 Denise Wagoner LISW [address] [place] [address] Refinery Process Engineer Hematology/Oncology 04/21/23 Chester Patel MD [address] [place] [address] Cardiology 05/23/23 Justa Tucker [address] [place] [address] 05/23/23 Laverne Ramirez MD [address] [place] [address] Referring Internal Medicine 09/15/23 Jose Miguel Herbert MD [address] [place], [place] 920071 Home Care Provider Family Medicine 09/19/23 Gum[place] [address] [place] [address] Nephrology 10/23/23 Jess Alcaraz APRN.BOOSTER ASSEMBLER [facility] [place], [place] 720771 Jd Edwards Family Medicine 08/24/24 Sheree Fabian PA-C [address] [place], [place] 646881 Jd Edwards Family Medicine 08/24/24 Chester Patel MD [address] [place] [address] Primary Staff Physician Cardiology 01/21/25 Docketing Specialist Relationship Specialty Start Date End Date Jose Miguel Herbert MD [address] [place] [address] PCP - General Family Medicine 07/29/21 Doup, Dina, RN Specialty Skidway Worker Oncology 04/19/23 Jose Hugo DO [address] [place], [place] [phone] Physician Hematology/Oncology 04/19/23 Denise Wagoner LISW [address] [place] [address] Refinery Process Engineer Hematology/Oncology 04/21/23 Chester Patel MD [address] [place] [address] Cardiology 05/23/23 Justa Tucker [address] [place] [address] 05/23/23 Laverne Ramirez MD [address] [place] [id number] Referring Internal Medicine 09/15/23 Jose Miguel Herbert MD [address] [place] [address] [phone] Home Care Provider Family Medicine 09/19/23 Gumaro [place] [address] [place] [address] Nephrology 10/23/23 Jess Alcaraz APRN.CNP [address] [place], [place] 876271 Jd Edwards Family Medicine 08/24/24 Sheree Fabian PA-C [address] [place] [address] Jd Edwards Family Medicine 08/24/24 Chester Patel MD [address] [place] [address] Primary Staff Physician Cardiology 01/21/25 Docketing Specialist Relationship Specialty Start Date End Date Jose Miguel Herbert MD [address] [place], [place] 459491 PCP - General Family Medicine 07/29/21 Dina Tolentino RN Specialty Skidway Worker Oncology 04/19/23 Jose Hugo DO [address] [place], [place] [phone] Physician Hematology/Oncology 04/19/23 Denise Wagoner LISW [address] [place] [address] Refinery Process Engineer Hematology/Oncology 04/21/23 Chester Patel MD [address] Desk [place] [id number] Cardiology 05/23/23 Justa Tucker [address] [address] 05/23/23 Laverne Ramirez MD [address] [place] [address] Referring Internal Medicine 09/15/23 Jose Miguel Herbert MD [address] [place], [place] [phone] Home Care Provider Family Medicine 09/19/23 Gumaro [place] [address] [place] [address] Nephrology 10/23/23 Jess Alcaraz APRN.BOOSTER ASSEMBLER [address] [place], [place] [phone] Jd Edwards Family [facility] 08/24/24 Sheree Fabian PA-C [address] [place], [place] [phone] Jd Edwards [facility] 08/24/24 Chester Patel MD [address] [place], [place] 6636895 Primary Staff Physician Cardiology 01/21/25 Team Status: [...] February 13, 2025 End: February 13, 2025 Docketing Specialist Relationship Specialty Start Date End Date Jose Miguel Herbert MD [address] [place], [place] [id number] PCP - General Family Medicine 07/29/21 Dina Tolentino RN Specialty Skidway Worker Oncology 04/19/23 Jose Hugo DO [address] [place] [address] Physician Hematology/Oncology 04/19/23 Denise Wagoner LISW [address] [place] [address] Refinery Process Engineer Hematology/Oncology 04/21/23 Chester Patel MD [address] [place], [place] 6804895 Cardiology 05/23/23 Justa Tucker [address] [place] [address] 05/23/23 Laverne Ramirez MD [address] [place] [address] Referring Internal Medicine 09/15/23 Jose Miguel Herbert MD [address] [place], [place] 270851 Home Care Provider Family Medicine 09/19/23 Gumaro Pé[place] [address] [place] [address] Nephrology 10/23/23 Sheree Fabian PA-C [address] [place], [place] 588671 Jd Edwards Family Medicine 08/24/24 Chester Patel MD [address] [place] [address] Primary Staff Physician Cardiology 01/21/25 Docketing Specialist Relationship Specialty Start Date End Date Jose Miguel Herbert MD [address] [place] [address] PCP - General Family Medicine 07/29/21 Doup, Dina, RN Specialty Skidway Worker Oncology 04/19/23 Jose Hugo DO [address] [place], [place] [phone] Physician Hematology/Oncology 04/19/23 Denise Wagoner LISW [address] [place] [address] Refinery Process Engineer Hematology/Oncology 04/21/23 Chester Patel MD [address] [place], [place] 7626295 Cardiology 05/23/23 Justa Tucker [address] [address] 05/23/23 Laverne Ramirez MD [address] [place] [address] Referring Internal Medicine 09/15/23 Jose Miguel Herbert MD [address] [place], [place] [phone] Home Care Provider Family Medicine 09/19/23 Gumaro [place] [address] [place] [address] Nephrology 10/23/23 Chester Patel MD [address] [address] Primary Staff Physician Cardiology 01/21/25 Jess Alcaraz APRN.BOOSTER ASSEMBLER [address] [place] [address] Jd Edwards Family Medicine 02/17/25 Sheree Fabian PA-C [address] [place] [address] Jd Edwards Family Medicine 02/17/25 Docketing Specialist Relationship Specialty Start Date End Date Jose Miguel Herbetr MD [address] [place], [place] 752121 PCP - General Family Medicine 07/29/21 Dina Tolentino RN Specialty Skidway Worker Oncology 04/19/23 Jose Hugo DO [address] [place], [place] [phone] Physician Hematology/Oncology 04/19/23 Denise Wagoner LISW [address] [place] [address] Refinery Process Engineer Hematology/Oncology 04/21/23 Chester Patel MD [address] [place] [address] Cardiology 05/23/23 Justa Tucker [address] [place] [address] 05/23/23 Laverne Ramirez MD [address] [place], [place] 7053295 Referring Internal Medicine 09/15/23 Jose Miguel Herbert MD [address] [place] [address] Home Care Provider Family Medicine 09/19/23 Gumaro [place] [address] [place] [address] Nephrology 10/23/23 Chester Patel MD [address] [place], [place] [phone] Primary Staff Physician Cardiology 01/21/25 Jess Alcaraz APRN.BOOSTER ASSEMBLER [address] [place], [place] 002581 Jd Edwards Family Medicine 02/17/25 Sheree Fabian PA-C [address] [place], [place] 358481 Jd Edwards Family Medicine 02/17/25 Docketing Specialist Relationship Specialty Start Date End Date Jose Miguel Herbert MD [address] [place], [place] 090081 PCP - General Family Medicine 07/29/21 Dina Tolentino RN Specialty Skidway Worker Oncology 04/19/23 Jose Hugo DO [address] [place] [address] Physician Hematology/Oncology 04/19/23 Denise Wagoner LISW [address] [place] [address] Refinery Process Engineer Hematology/Oncology 04/21/23 Chester Patel MD [address] [place] [address] Cardiology 05/23/23 Justa Tucker [address] [place] [address] 05/23/23 Jose Miguel Herbert MD [address] [place], [place] 492561 Home Care Provider Family Medicine 09/19/23 Gumaro [place] [address] [place] [address] Nephrology 10/23/23 Chester Patel MD [address] [place], [place] [phone] Primary Staff Physician Cardiology 01/21/25 eJss Alcaraz APRN.[facility] [address] [place], [place] 187241 Jd Edwards Family Medicine 02/17/25 Sheree Fabian PA-C [address] [place] [address] [phone] [facility] 02/17/25 Docketing Specialist Relationship Specialty Start Date End Date Jose Miguel Herbert MD [address] [place] [address] PCP - General Family Medicine 07/29/21 Dina Tolentino, RN Specialty Skidway Worker Oncology 04/19/23 Jose Hugo DO [address] [place], [place] [phone] Physician Hematology/Oncology 04/19/23 Denise Wagoner LISW [address] [place] [address] Refinery Process Engineer Hematology/Oncology 04/21/23 Chester Patel MD [address] [place] [address] Cardiology 05/23/23 Justa Tucker [address] [place] [address] 05/23/23 Jose Miguel Herbert MD [address] [place], [place] [phone] Home Care Provider Family Medicine 09/19/23 Gumaro [place] [address] [place] [address] Nephrology 10/23/23 Chester Patel MD [address] [place] [address] Primary Staff Physician Cardiology 01/21/25 Jess Alcaraz APRN.BOOSTER ASSEMBLER [address] [place] [address] Jd Edwards Family Medicine 02/17/25 Sheree Fabian PA-C [address] [place], [place] [phone] Jd Edwards Family Medicine 02/17/25 Team Status: Active Member Role/Relationship Status Dates Dr. Jose Miguel Herbert MD Primary Care Provider Active Team Status: Inactive Member Role/Relationship Status Dates Dr. Jose Miguel Herbert MD Primary Care Provider Active Start: January 10, 2025 End: January 10, 2025 Dr. Bonnie Barrera MD Attending Provider Active Start: January 10, 2025 End: January 10, 2025 Team Status: Active Member Role/Relationship Status Dates Dr. Jose Miguel Herbert MD Primary Care Provider Active Start: January 13, 2025 Dr. Bonnie Barrera MD Attending Provider Active Start: January 13, 2025 Team Status: Inactive Member Role/Relationship Status Dates Dr. Jose Miguel Herbert MD Primary Care Provider Active Start: January 14, 2025 End: January 14, 2025 Dr. Alvarado Brody MD Attending Provider Active S tart: January 14, 2025 End: January 14, 2025 Dr. Alvarado Brody MD Referring Provider Active S tart: January 14, 2025 End: January 14, 2025 Team Status: Active Member Role/Relationship Status Dates Dr. Jose Miguel Herbert MD Primary Care Provider Active Start: January 14, 2025 Dr. Alvarado Brody MD Attending Provider Active S tart: January 14, 2025 Dr. Alvarado Brody MD Referring Provider Active S tart: January 14, 2025 Dr. Alvarado Brody MD Other Provider Active Start : January 14, 2025 Team Status: Inactive Member Role/Relationship Status Dates Dr. Jose Miguel Herbert MD Primary Care Provider Active Start: January 28, 2025 End: January 28, 2025 Dr. Jose Miguel Herbert MD Referring Provider Active Start: January 28, 2025 End: January 28, 2025 PEGGY Hall Attending Provider Active Star t: January 28, 2025 End: January 28, 2025 Team Status: Inactive Member Role/Relationship Status Dates Dr. Jose Miguel Herbert MD Primary Care Provider Active Start: February 13, 2025 End: February 13, 2025 Dr. Jose Miguel Herbert MD Referring Provider Active Start: February 13, 2025 End: February 13, 2025 PEGGY Hall Attending Provider Active Star t: February 13, 2025 End: February 13, 2025 Team Status: Inactive Member Role/Relationship Status Dates Dr. Jose Miguel Herbert MD Primary Care Provider Active Start: May 01, 2025 End: May 01, 2025 Dr. Alvarado Brody MD Attending Provider Active S tart: May 01, 2025 End: May 01, 2025 Dr. Alvarado Brody MD Referring Provider Active S tart: May 01, 2025 End: May 01, 2025 Team Status: Active Member Role/Relationship Status Dates Dr. Jose Miguel Herbert MD Primary Care Provider Active Start: May 01, 2025 Dr. Alvarado Brody MD Attending Provider Active S tart: May 01, 2025 Dr. Alvarado Brody MD Referring Provider Active S tart: May 01, 2025 Dr. Alvarado Brody MD Other Provider Active Start : May 01, 2025 Docketing Specialist Relationship Specialty Start Date End Date Jose Miguel Herbert MD [address] [place] [address] PCP - General Family Medicine 07/29/21 Dnia Tolentino, RN Specialty Skidway Worker Oncology 04/19/23 Jose Hugo DO [address] [place], [place] 492621 Physician Hematology/Oncology 04/19/23 Denise Wagoner LISW [address] [place] [address] Refinery Process Engineer Hematology/Oncology 04/21/23 Chester Patel MD [address] [place], [place] [id number] Cardiology 05/23/23 Justa Tucker [address] [place] [address] 05/23/23 Jose Miguel Herbert MD [address] [place], [place] 468641 Home Care Provider Family Medicine 09/19/23 Gumaro Pé[place] [address] [place], [place] 1728530 Nephrology 10/23/23 Chester Patel MD [address] [place], [place] 2759595 Primary Staff Physician Cardiology 01/21/25 Jess Alcaraz APRN.BOOSTER ASSEMBLER [address] [place], [place] [phone] Jd Edwards Family Medicine 02/17/25 Sheree Fabian PA-C [address] [place], [place] [phone] Jd Edwards Family Medicine 02/17/25 Team Status: Inactive Member Role/Relationship Status Dates Dr. Jose Miguel Herbert MD Primary Care Provider Active Start: January 28, 2025 End: January 28, 2025 Dr. Jose Miguel Herbert MD Referring Provider Active Start: January 28, 2025 End: January 28, 2025 PEGGY Hall Attending Provider Active Star t: January 28, 2025 End: January 28, 2025 Team Status: Inactive Member Role/Relationship Status Dates Dr. Jose Miguel Herbert MD Primary Care Provider Active Start: February 13, 2025 End: February 13, 2025 Dr. Jose Miguel Herbert MD Referring Provider Active Start: February 13, 2025 End: February 13, 2025 PEGGY Hall Attending Provider Active Star t: February 13, 2025 End: February 13, 2025 Team Status: Inactive Member Role/Relationship Status Dates Dr. Jose Miguel Herbert MD Primary Care Provider Active Start: May 01, 2025 End: May 01, 2025 Dr. Alvarado Brody MD Attending Provider Active S tart: May 01, 2025 End: May 01, 2025 Dr. Alvraado Brody MD Referring Provider Active S tart: May 01, 2025 End: May 01, 2025 Team Status: Active Member Role/Relationship Status Dates Dr. Jose Miguel Herbert MD Primary Care Provider Active Start: May 01, 2025 Dr. Alvarado Brody MD Attending Provider Active S tart: May 01, 2025 Dr. Alvarado Brody MD Referring Provider Active S tart: May 01, 2025 Dr. Alvarado Brody MD Other Provider Active Start : May 01, 2025 Team Status: Inactive Member Role/Relationship Status Dates Dr. Jose Miguel Herbert MD Primary Care Provider Active Start: May 15, 2025 End: May 15, 2025 Dr. Jose Miguel Herbert MD Referring Provider Active Start: May 15, 2025 End: May 15, 2025 PEGGY Hall Attending Provider Active Star t: May 15, 2025 End: May 15, 2025 Docketing Specialist Relationship Specialty Start Date End Date Jose Miguel Herbert MD [address] [place], [place] 645161 PCP - General Family Medicine 07/29/21 Dina Tolentino, RN Specialty Skidway Worker Oncology 04/19/23 Jose Hugo DO [address] [place], [place] 995081 Physician Hematology/Oncology 04/19/23 Denise Wagoner LISW [address] [place] [address] Refinery Process Engineer Hematology/Oncology 04/21/23 Chester Patel MD [address] [place], [place] [id number] Cardiology 05/23/23 Justa Tucker [address] [place] [address] 05/23/23 Jose Miguel Herbert MD [address] [place], [place] [id number] Home Care Provider Family Medicine 09/19/23 Gumaro Pé[place] [address] [place] [address] Nephrology 10/23/23 Chester Patel MD [address] [place], [place] 1954695 Primary Staff Physician Cardiology 01/21/25 Jess Alcaraz APRN.BOOSTER ASSEMBLER [address] [place], [place] [phone] Jd Edwards Family Medicine 02/17/25 Sheree Fabian PA-C [address] [place], [place] [phone] Jd Edwards Family Medicine 02/17/25 Docketing Specialist Relationship Specialty Start Date End Date Jose Miguel Herbert MD [address] [place], [place] [phone] PCP - General Family Medicine 07/29/21 Dina Tolentino, RN Specialty Skidway Worker Oncology 04/19/23 Jose Hugo DO [address] [place], [place] 235131 Physician Hematology/Oncology 04/19/23 Denise Wagoner LISW [address] [place] [address] Refinery Process Engineer Hematology/Oncology 04/21/23 Chester Patel MD [address] [place] [address] Cardiology 05/23/23 Justa Tucker [address] [place] [address] 05/23/23 Jose Miguel Herbert MD [address] [place], [place] 754161 Home Care Provider Family Medicine 09/19/23 Gumaro [place] [address] [place] [address] Nephrology 10/23/23 Chester Patel MD [address] [place] [address] Primary Staff Physician Cardiology 01/21/25 Jess Alcaraz APRN.BOOSTER ASSEMBLER [address] [place], [place] [phone] Jd Edwards Family Medicine 02/17/25 Sheree Fabian PA-C [address] [place], [place] 475581 Jd Edwards Family [facility] 02/17/25 Docketing Specialist Relationship Specialty Start Date End Date Jose Miguel Herbert MD [address] [place], [place] 462441 PCP - General Family Medicine 07/29/21 Dina Tolentino RN Specialty Skidway Worker Oncology 04/19/23 Jose Hugo DO [address] [place], [place] [phone] Physician Hematology/Oncology 04/19/23 Denise Wagoner LISW [address] [place] [address] Refinery Process Engineer Hematology/Oncology 04/21/23 Chester Patel MD [address] [place] [address] Cardiology 05/23/23 Justa Tucker [address] [place] [address] 05/23/23 Jose Miguel Herbert MD [address] [place], [place] 095211 Home Care Provider Family Medicine 09/19/23 Gumaro Pé[place] [address] [place] [address] Nephrology 10/23/23 Chester Patel MD [address] [place] [address] Primary Staff Physician Cardiology 01/21/25 Jess Alcaraz APRN.BOOSTER ASSEMBLER [address] [place], [place] [phone] [facility] 02/17/25 Sheree Fabian PA-C [address] [place] [address] [facility] 02/17/25 Goals (unrecognized section and content) Goals [...] section and content) DATE CREATED AUTHOR 05/22/2023 [facility] DATE CREATED AUTHOR AUTHOR'S ORGANIZ ATION 12/13/2023 [facility] DATE CREATED AUTHOR AUTHOR'S ORGANIZ ATION 07/25/[address] [facility] DATE CREATED AUTHOR AUTHOR'S ORGANIZ ATION 07/30/2025 [facility] Inactive Administered Medications - up to [...] 1 dose, On Mon10/31/23 at 1030, exp 23010/31/23 (room temp) -Infuse at rate of 100mg/hr. [...] 10 mg, INTRAVENOUS, ONCE, 1 dose, On 11/01/23 at 1430, Refrigerate. New Bag/Syringe/Bottle 11/01/2023 2:23 PM EST 10 mg Inactive Administered Medications - up to 3 most recent administrations Medication Order MAR Action Action Date Dose Rate Site pegfilgrastim-jmdb 6 mg injection (FULPHILA) 6 mg, SUBCUTANEOUS, ONCE, 1 dose, On Mariluz 11/02/23 at 1530, Refrigerate - Protect From Light [...] 6 mg, SUBCUTANEOUS, ONCE, 1 dose, On Mon11/30/23 at 1500, Refrigerate - Protect From Light [...] injection (CANCELED) X (OR/PROCEDURE) PRN, Starting on 12/11/23 at 1324, Until 12/11/23 at 1346, Intraprocedure 1324 (Given - Provid er: Ankur Benavidez PA-C) lidocaine 1%-EPINEPHrine 1:100,000 injection (CANCELED) SUBCUTANEOUS, X (OR/PROCEDURE) PRN, Starting on 12/11/23 at 1316, Until 12/11/23 at 1346, Intraprocedure 1316 (Given - Provid er: Ankur Benavidez PA-C - Comment: right neck and chest) midazolam (PF) injection (VERSED) (CANCELED) INTRAVENOUS, X (OR/PROCEDURE) PRN, Starting on 12/11/23 at 1314, Until 12/11/23 at 1346, Intraprocedure 1314 (Given - Provid [...] BE BASED ON THE PRIMARY CLINICAL RECORDS. [facility] [employer] [facility]. provides no warranty or guarantee of the accuracy or completeness of information in this document.
== END | disposition home or self-care (01) ==
LOC: CVS 13:39
PROVIDERS: PCP Family Medicine; Referring Provider Physician Assistant; Visit Provider Physician Assistant
DX: N18.6 End stage renal disease (principal); Z99.2 Dependence on renal dialysis
CPT/HCPCS: 93990